=== PATIENT | male | born 1950 | race Caucasian/White ===

== ENCOUNTER → 2017-07-02 14:32 | Outpatient (CLI) | payer MEDICARE, SELFPAY ==
[2017-07-02 17:17] LABS: Absolute Lymphocyte Count 1.38 X10^3/ul (0.83-4.51); Basophil# 0.02 X10^3/uL; Basophil% 0.2 % (0-1); Eosinophil# 0.15 X10^3/uL; Eosinophils% 1.8 % (0-5); Hematocrit 48.3 % (40-54); Hemoglobin 16.1 g/dl (13.0-16.5); Lymphocyte # 1.38 X10^3/ul (4.0); Lymphocyte % 16.4 % (19-41); Mean Corp Hgb Conc 33.3 g/gl (32-36); Mean Corpuscular Hgb 31.4 pg (27.0-32.0); Mean Corpuscular Volume 94.3 fL (80-94); Mean Platelet Vol. 10.5 fl (6.2-12.0); Monocyte# 0.82 X10^3/uL; Monocyte% 9.7 % (0-10); Neutrophil # 6.04 X10^3/uL (2.7-7.7); Neutrophil % 71.8 % (47-70); Platelet Count 202 K/mm3 (150-450); RBC Distribution Width SD 47.7 fl (35.1-43.9); Red Blood Count 5.12 M/mm3 (4.6-6.2); White Blood Count 8.4 K/mm3 (4.4-11.0)
[2017-07-02 17:22] LABS: POSITIVE COUNT NO; POSITIVE DIFFERENTIAL NO; POSITIVE MORPHOLOGY NO
[2017-07-02 17:41] LABS: AST(SGOT) 20 U/L (15-37); Alanine Aminotransfer ALT/SGPT 36 U/L (16-61); Albumin, Serum 3.5 g/dL (3.2-5.0); Alkaline Phosphatase 79 U/L (45-117); Anion Gap 7 (5-15); BUN 12 mg/dL (7-18); BUN/Creat Ratio 12.5 RATIO (10-20); Calcium,Total 8.4 mg/dL (8.5-10.1); Chloride 107 mmol/L (98-107); Creatinine, Serum 0.96 mg/dL (0.70-1.30); EST Glomerular Filtration Rate 83 mL/min (>60); Est Glom Filt Rate - Afr Amer 100 mL/min (>60); Globulin 3.6 g/dL (2.2-4.2); Glucose 101 mg/dL (74-106); PSA,Total - Annual Screen 1.57 ng/mL (0.00-4.00); Protein, Total 7.1 g/dL (6.4-8.2); Sodium Level 140 mmol/L (136-145); Thyroid Stim Hormone (TSH) 2.12 uIU/mL (0.358-3.74)
[2017-07-04 11:04] LABS: Hep C Antibodies <0.1 s/co ratio (0.0-0.9)
== END ==
PROVIDERS: Family Provider Family Medicine Geriatric Medicine; PCP Family Medicine Geriatric Medicine; Visit Provider Family Medicine Geriatric Medicine
DX: I10 Essential (primary) hypertension (principal); Z13.89 Encounter for screening for other disorder; Z12.5 Encounter for screening for malignant neoplasm of prostate
CPT/HCPCS: 36415; 80053; 84153; 84443; 85025; 86803; G0103

== ENCOUNTER → 2017-08-21 18:39 | Outpatient (CLI) | payer MEDICARE, SELFPAY ==
--- NOTE | 2017-08-21 17:22 | TISS_PTH ---
PATIENT: TURNER YAN Sr. LOC: [facility] U#:[id number] AGE/SX: 74/M ROOM: RE08/21/[address]: Dr. Low Zheng MD : 1950 BED: DIS: SPEC #: [id number] RECD: 08/21/17 18:04 STATUS: BUBBA EDITH #: [id number] ETIENNE: 08/21/17 17:[address]: Low Zheng Chi DEPT: SURGICAL PATHOLOGY RECD BY: Brenda Ravi Tissues: Skin of face, NOS Procedures: Surgery Specimen Level IV HEADER OPERATION: Not noted PRE-OP DIAGNOSIS: L98.9, 709.9 TISSUE SUBMITTED: Left cheek MICROSCOPIC DIAGNOSIS Lesion of left cheek, shave biopsy: Verrucoid keratosis. Solar elastosis. Organisms consistent with tinea. AM:ailyn 08/23/17 MICROSCOPIC DESCRIPTION Slides are reviewed. GROSS DESCRIPTION Received in fixative is one container labeled with the patient's name and designated left cheek. The specimen consists of a light davis fragment of skin measuring 0.7 x 0.5 x 0.2 cm. The specimen is bisected and totally submitted in one cassette. / AM:ailyn 08/22/17 TC:5 CPT: 12364
== END ==
PROVIDERS: Family Provider Family Medicine Geriatric Medicine; PCP Family Medicine Geriatric Medicine; Visit Provider Family Medicine Geriatric Medicine
DX: L98.9 Disorder of the skin and subcutaneous tissue, unspecified (principal)
CPT/HCPCS: 88305

== ENCOUNTER → 2017-10-16 10:00 | Outpatient (CLI) | payer MEDICARE, SELFPAY ==
--- NOTE | 2017-10-16 10:33 | LES_PTH ---
PATIENT: TURNER YAN Sr. LOC: [facility] U#:[id number] AGE/SX: 74/M ROOM: RE10/16/[address]: Dr. Low Zheng MD : 1950 BED: DIS: SPEC #: [id number] RECD: 10/17/17 12:14 STATUS: BUBBA EDITH #: [id number] ETIENNE: 10/16/17 10:[address]: Low Zheng Chi DEPT: SURGICAL PATHOLOGY RECD BY: Mark Moore Tissues: A - Skin of head, NOS B - Skin of face, NOS C - Skin of head, NOS D - Skin of head, NOS E - Skin of face, NOS Procedures: Surgery Specimen Level IV HEADER OPERATION: Not noted PRE-OP DIAGNOSIS: L98.9 TISSUE SUBMITTED: A ? Right mosque, B ? Right cheek, C ? Left hairline mosque, D ? Left mid mosque, E ? Left cheek MICROSCOPIC DIAGNOSIS A. Right mosque lesion, shave biopsy: Seborrheic keratosis. Solar elastosis. B. Right cheek lesion, shave biopsy: Inflamed seborrheic keratosis with focal actinic change. Solar elastosis. C. Left hairline mosque lesion, shave biopsy: Seborrheic keratosis. D. Left mid mosque lesion, shave biopsy: Seborrheic keratosis. Solar elastosis. E. Left cheek lesion, shave biopsy: Seborrheic keratosis. Solar elastosis. SJ:ailyn 10/18/17 COMMENT Please make reference to previous specimen ([id number]) lesion of left cheek, shave biopsy with diagnosis of verrucoid keratosis, solar elastosis and organisms consistent with tinea. MICROSCOPIC DESCRIPTION Slides are reviewed. GROSS DESCRIPTION A - Received in fixative is one container labeled with the patient's name and designated right mosque. The specimen consists of a shave biopsy of a round piece of davis-white skin measuring 0.5 cm in diameter and 0.1 cm in thickness. The specimen is inked and submitted entirely in one cassette. It will be bisected at the time of embedding. B - Received in fixative is one container labeled with the patient's name and designated right cheek. The specimen consists of a shave biopsy of davis-white skin measuring 1 x 0.6 x 0.2 cm. There is a brown lesion on the surface measuring 0.7 x 0.5 cm. The specimen is inked and submitted entirely in one cassette. It will be sectioned at the time of embedding. C - Received in fixative is one container labeled with the patient's name and designated left hairline mosque. The specimen consists of a shave biopsy of davis-brown skin measuring 0.9 x 0.9 cm and up to 0.1 cm in thickness. The specimen is inked and submitted entirely in one cassette. D - Received in fixative is one container labeled with the patient's name and designated left mid mosque. The specimen consists of a shave biopsy of a round piece of davis-white skin measuring 0.5 cm in diameter and 0.2 cm in thickness. The specimen is inked and submitted entirely in one cassette. It will be bisected at the time of embedding. E - Received in fixative is one container labeled with the patient's name and designated left cheek. The specimen consists of a piece of davis-brown skin measuring 0.7 x 0.5 cm and up to 0.1 cm in thickness. The specimen is inked and submitted entirely in one cassette. It will be serially sectioned at the time of embedding. / SJ:rg 10/17/17 TC: 1 CPT: 70213 x5
== END ==
PROVIDERS: Family Provider Family Medicine Geriatric Medicine; PCP Family Medicine Geriatric Medicine; Visit Provider Family Medicine Geriatric Medicine
DX: L98.9 Disorder of the skin and subcutaneous tissue, unspecified (principal)
CPT/HCPCS: 88305

== ENCOUNTER → 2018-07-02 17:36 | Outpatient (CLI) | payer MEDICARE, SELFPAY ==
--- NOTE | 2018-07-02 17:52 | CT_ITS ---
STUDY: CT BRAIN WITHOUT CONTRAST REASON FOR EXAM: Male, 67 years old. Trauma RADIATION DOSAGE (If Supplied By Facility): CTDIvol = ( 44.99 ) mGy, DLP = ( 796.11 ) mGycm TECHNIQUE: Transaxial CT imaging of the brain was performed without administration of intravenous contrast material. Individualized dose optimization techniques were used for this CT. COMPARISON: March 12, 2014 FINDINGS: Normal soft tissue structures. Normal calvarium. 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 Mild atrophy and moderate periventricular white matter ischemic changes. Normal basal ganglia and thalami. Normal brainstem. Normal cerebellum. There is no intracranial hemorrhage. There are no findings of an acute ischemic infarction. There is diffuse mucosal thickening within left maxillary sinus extending into the nasal cavity. Neoplasm is not excluded. There is absence of the medial wall which may be due to prior surgery. This has increased in size since prior exam CT/Brain/Head without Contrast IMPRESSION: Atrophy and moderate periventricular white matter ischemic changes. No evidence for acute intracranial bleed. Soft tissue density in left maxillary sinus extending into the nasal cavity which has increased in size since prior exam.. Possibility of neoplasm not excluded. Clinical correlation recommended Electronically Signed: Villa Rodrigues MD at 21:00 EST , Service support ,
--- NOTE | 2018-07-02 17:53 | CT_ITS ---
STUDY: CT ABDOMEN AND PELVIS WITH CONTRAST REASON FOR EXAM: Male, 67 years old. Abdominal pain RADIATION DOSAGE (If Supplied By Facility): CTDIvol = ( 20.40 ) mGy, DLP = ( 1317.63 ) mGycm TECHNIQUE: Transaxial images were obtained from the dome of the diaphragm to the symphysis pubis without oral contrast. Isovue 300 100ml IV/Oral was administered. Sagittal and coronal images were reconstructed. Individualized dose optimization techniques were used for this CT. COMPARISON: None. FINDINGS: The visualized lung bases are unremarkable. The visualized portions of the heart are within normal limits. Liver is fatty infiltrated without mass or bile duct dilatation. Contracted thick-walled gallbladder without calcified stones likely physiologic. If concern for gallbladder disease ultrasound recommended. Normal spleen. Normal pancreas. Normal bilateral adrenal glands. Normal right kidney. Normal left kidney. Normal visualized stomach. Mild nonspecific ileus. No evidence for small bowel obstruction or pneumoperitoneum. No evidence for acute appendicitis. Minor atherosclerotic changes of the aorta without evidence for aneurysm Normal inferior vena cava. Normal retroperitoneum. Normal urinary bladder. Mild nonspecific prominence of the prostate. Normal abdominal wall. Lumbar spine demonstrates moderate spondylosis CT/Abdomen/Pelvis WITH Contrast IMPRESSION: Contracted thick-walled gallbladder without calcified stones likely physiologic however if concern for gallbladder disease ultrasound recommended. Mild nonspecific ileus. Electronically Signed: Villa Rodrigues MD at 21:19 EST , Service support ,
--- NOTE | 2018-07-02 18:00 | RAD_ITS ---
STUDY: X-RAY - ABDOMEN/PELVIS REASON FOR EXAM: Male, 67 years old. Fecal impaction TECHNIQUE: Flat and upright COMPARISON: None. FINDINGS: Normal visualized lung bases. There is mild predominantly colonic ileus present. There is no evidence for small bowel obstruction or pneumoperitoneum. There is no demonstrated free abdominal air. The visualized liver, spleen and kidneys are grossly normal in size and morphology. Normal soft tissue structures. Lumbar spine demonstrates spondylosis. RAD/Abd Inc Decub and/or Erect IMPRESSION: Mild predominantly colonic ileus. Electronically Signed: Villa Rodrigues MD at 19:03 EST , Service support ,
[2018-07-02 18:51] LABS: Absolute Neutrophil Count 5.4 X10^3/uL (2.0-7.7); Basophil# 0.02 X10^3/uL; Basophil% 0.3 % (0-1); Eosinophils% 2.6 % (0-5); Hematocrit 49.5 % (40-54); Hemoglobin 17.1 g/dl (13.0-16.5); Lymphocyte % 16.7 % (19-41); Mean Corp Hgb Conc 34.5 g/gl (32-36); Mean Corpuscular Hgb 31.8 pg (27.0-32.0); Mean Corpuscular Volume 92.2 fL (80-94); Mean Platelet Vol. 9.9 fl (6.2-12.0); Monocyte# 0.89 X10^3/uL; Monocyte% 11.4 % (0-10); Neutrophil # 5.35 X10^3/uL (2.7-7.7); Neutrophil % 68.7 % (47-70); Platelet Count 214 K/mm3 (150-450); RBC Distribution Width CV 13.8 % (11.6-14.6); RBC Distribution Width SD 45.9 fl (35.1-43.9); Red Blood Count 5.37 M/mm3 (4.6-6.2); White Blood Count 7.8 K/mm3 (4.4-11.0)
[2018-07-02 18:52] LABS: POSITIVE COUNT NO; POSITIVE DIFFERENTIAL NO; POSITIVE MORPHOLOGY NO
[2018-07-02 19:31] LABS: ALB/GLOB Ratio 1.1 RATIO (0.9-2.4); AST(SGOT) 25 U/L (15-37); Alanine Aminotransfer ALT/SGPT 43 U/L (16-61); Albumin, Serum 3.8 g/dL (3.2-5.0); Alkaline Phosphatase 80 U/L (45-117); Anion Gap 9 (5-15); BUN 13 mg/dL (7-18); BUN/Creat Ratio 12.6 RATIO (10-20); Calcium,Total 8.8 mg/dL (8.5-10.1); Chloride 106 mmol/L (98-107); Creatinine, Serum 1.03 mg/dL (0.70-1.30); EST Glomerular Filtration Rate 76 mL/min (>60); Est Glom Filt Rate - Afr Amer 92 mL/min (>60); Globulin 3.4 g/dL (2.2-4.2); Glucose 109 mg/dL (74-106); Potassium 4.2 mmol/L (3.5-5.1); Protein, Total 7.2 g/dL (6.4-8.2); Sodium Level 139 mmol/L (136-145); Thyroid Stim Hormone (TSH) 1.83 uIU/mL (0.358-3.74)
== END ==
PROVIDERS: Family Provider Family Medicine Geriatric Medicine; PCP Family Medicine Geriatric Medicine; Referring Provider Family Medicine Geriatric Medicine; Visit Provider Family Medicine Geriatric Medicine
DX: N39.0 Urinary tract infection, site not specified (principal); R53.83 Other fatigue; R10.9 Unspecified abdominal pain; K56.41 Fecal impaction; S09.90XA Unspecified injury of head, initial encounter
CPT/HCPCS: 70450; 74019; 74177; 80053; 84443; 85025; 87086; 87088; Q9967

== ENCOUNTER → 2018-07-03 13:27 | Outpatient (CLI) | payer MEDICARE, SELFPAY ==
[2018-07-03 15:23] LABS: PSA,Total - Annual Screen 1.62 ng/mL (0.00-4.00)
== END ==
PROVIDERS: Family Provider Family Medicine Geriatric Medicine; PCP Family Medicine Geriatric Medicine; Visit Provider Family Medicine Geriatric Medicine
DX: E55.9 Vitamin D deficiency, unspecified (principal); I10 Essential (primary) hypertension; Z12.5 Encounter for screening for malignant neoplasm of prostate
CPT/HCPCS: 36415; 82306; 84153; G0103

== ENCOUNTER → 2018-07-06 11:00 | Outpatient (CLI) | payer MEDICARE, SELFPAY ==
--- NOTE | 2018-07-06 10:51 | US_ITS ---
STUDY: ABDOMINAL ULTRASOUND - RIGHT UPPER QUADRANT REASON FOR VISIT: Male, 67 years old. Abdominal pain TECHNIQUE: Ultrasound evaluation of the right upper quadrant was performed with real-time and static otero-scale imaging. TECHNICAL QUALITY: Adequate. COMPARISON: None. FINDINGS: Liver: The liver measures 18.6 cm. Mild hepatomegaly with fatty infiltration. The bile ducts are within normal limits. There is hepatic color flow. The direction of portal flow is hepatopetal. There is no demonstrated mass lesion. Gallbladder: Normal distended gallbladder. The gallbladder wall measures 3.2 mm. There is a negative sonographic Roman's sign. There is no pericholecystic fluid. There are no gallstones. There is some sludge in the gallbladder lumen Common Bile Duct (C.B.D.): The common bile duct measures 4.0 mm. Pancreas: Normal size of the head, body and tail of the pancreas. There is normal echogenicity of the pancreas. There is no demonstrated pancreatic mass or cyst. Right Kidney: Normal size of the right kidney. The right kidney measures 10.5 x 4.7 x 5.0 cm. Normal renal cortex. The right cortex measures 1.9 cm. There is no demonstrated renal mass or cyst. There is no right hydronephrosis. US/Abdomen Limited IMPRESSION: Some sludge within the gallbladder lumen. No gallstones. No positive Roman's sign Electronically Signed: Willie Larkin MD at 3:22 EDT Tel , Service support ,
== END ==
PROVIDERS: Family Provider Family Medicine Geriatric Medicine; PCP Family Medicine Geriatric Medicine; Referring Provider Family Medicine Geriatric Medicine; Visit Provider Family Medicine Geriatric Medicine
DX: R10.9 Unspecified abdominal pain (principal)
CPT/HCPCS: 76705

== ENCOUNTER 2018-07-26 10:38 | Day surgery (SDC) | payer MEDICARE, SELFPAY ==
--- NOTE | 2018-07-26 | POL_PTH ---
PATIENT: TURNER YAN Sr. [place] [facility] [id number] AGE/SX: 67/M ROOM: RE07/26/[address]: Dr. Kervin Santana MD : 1950 BED: DIS: 07/26/2018 SPEC #: [id number] RECD: 07/26/18 13:05 STATUS: BUBBA REThelma #: [id number] ETIENNE: 07/26/18 00:[address]: Kervin Santana DEPT: SURGICAL PATHOLOGY RECD BY: Michela Fitch ENTERED: 07/26/18 14:08 SP TYPE: Polyp OTHR DR: Dr. Low Zheng MD Tissues: A - POLYP B - Maxilla, NOS Procedures: Frozen Section (charge) Surgery Specimen Level IV HEADER OPERATION: Endoscopic nasal sinus with maxillary antrostomy PRE-OP DIAGNOSIS: Benign neoplasm of maxillary sinus, left nose bleeding TISSUE SUBMITTED: A - Mass of left maxillary sinus for FS at 1300, B - Contents of left maxillary sinus sent for permanent FROZEN SECTION DIAGNOSIS A. Left maxillary sinus mass, biopsy: Fragments of benign sinonasal polyp with focal invagination. AM:ailyn 07/26/18 MICROSCOPIC DIAGNOSIS A. 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 B. Contents of left maxillary sinus: Fragments of inverted papilloma (Schneiderian papilloma). Fragments of respiratory mucosa with moderate acute and chronic inflammation. SJ:ailyn 07/29/18 COMMENT Case has been reviewed in consultation with Dr. Jimenez who concurs with the above diagnosis. IDC:BLANCHE MICROSCOPIC DESCRIPTION Slides are reviewed. GROSS DESCRIPTION A - Received fresh for frozen section consultation labeled with the patient's name is a specimen designated mass of left maxillary sinus. The specimen consists of multiple irregular fragments of pink-davis soft tissue that in aggregate measure 3 x 2 x 0.7 cm. The specimen is submitted in its entirety for froze section consultation in one block. / AM:ailyn 07/26/18 B - Received in fixative is one container labeled with the patient's name and designated contents left maxillary sinus. The specimen consists of multiple irregular fragments of davis-pink soft tissue that in aggregate measure 7.5 x 3 x 0.3 cm. The entire specimen is submitted in three cassettes. / SJ:ailyn 07/26/18 TC:1 CPT: 39452 x2, 76215
--- NOTE | 2018-07-26 11:03 | EKG12_ITS ---
Test Reason : PREOP Blood Pressure : / mmHG Vent. Rate : 053 BPM Atrial Rate : 053 BPM P-R Int : 164 ms QRS Dur : 086 ms QT Int : 438 ms P-R-T Axes : 032 006 121 degrees QTc Int : 410 ms Sinus bradycardia Inferior infarct (cited on or before 11-SEP-2016) ST & T wave abnormality, consider lateral ischemia Abnormal ECG When compared with ECG of 11-SEP-2016 15:15, T wave inversion now evident in Anterior leads Confirmed by DAVE GLASS, DEZ ([id number]), scientific editor GINGER YAN ([id number]) on 08/05/2018 1:35:44 PM Referred By: Kervin Santana Confirmed By:DEZ ACOSTA MD
[2018-07-26 11:28] VITALS: BP 147/90; PULSE 58; RESP 16; TEMP 36.7; O2SAT 95; BMI 41.7
[2018-07-26 11:35] LABS: Hematocrit 45.3 % (40-54); Hemoglobin 15.8 g/dl (13.0-16.5); Mean Corp Hgb Conc 34.9 g/gl (32-36); Mean Corpuscular Hgb 31.8 pg (27.0-32.0); Mean Corpuscular Volume 91.1 fL (80-94); Platelet Count 181 K/mm3 (150-450); RBC Distribution Width CV 13.8 % (11.6-14.6); RBC Distribution Width SD 45.3 fl (35.1-43.9); Red Blood Count 4.97 M/mm3 (4.6-6.2); White Blood Count 9.3 K/mm3 (4.4-11.0)
[2018-07-26 11:36] LABS: Scan Indicated on CBC? Y/N NO
[2018-07-26 11:48] LABS: Anion Gap 7 (5-15); BUN 17 mg/dL (7-18); BUN/Creat Ratio 15.5 RATIO (10-20); Calcium,Total 8.6 mg/dL (8.5-10.1); Chloride 105 mmol/L (98-107); EST Glomerular Filtration Rate 71 mL/min (>60); Est Glom Filt Rate - Afr Amer 85 mL/min (>60); Glucose 106 mg/dL (74-106); Potassium 3.9 mmol/L (3.5-5.1); Sodium Level 140 mmol/L (136-145)
[2018-07-26] MEDS: Lidocaine 4% 50 ML Bottle (13:00)
[2018-07-26] MEDS: Oxymetazoline 0.05% 1 SPRAY SPRAY.BTL 15 SPRAY (13:00)
--- NOTE | 2018-07-26 13:19 | PCM.OPRPT ---
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 He reports a distant history of inverting papilloma which was removed with a lateral rhinotomy on that side. Examination showed a large polypoid mass filling the maxillary sinus and the above procedure was offered for identification with suspected recurrence of papilloma. The risks, alternatives, potential complications, and benefits were discussed at length and any questions answered to the patient and/or caregiver's satisfaction. Witnessed informed consent was obtained in the office, and the patient and/or caregiver was agreeable to proceed. Procedure went as follows: The patient was identified in the preoperative holding and brought to the operating room, was placed under general anesthesia and intubated. Pledgets soaked in a 50-50 mixture of oxymetazoline and 4% topical lidocaine were placed to decongest the nasal mucosa. These were then removed and beginning on the left side using a 0? endoscope the nasal cavity examined. The nasal cavity is filled with a large pink friable mass obstructing the left nasal passage and extending and filling the maxillary sinus cavity and ethmoid bulla. This was then injected with 1% lidocaine with 100,000 epinephrine for hemostasis. After lying for vasoconstriction, a Elmer forceps was introduced and a large area of the mass was then grasped and sent for frozen section evaluation. Using the microdebrider, the soft tissue mass was then widely debrided following the bony wall of the maxillary sinus and ethmoid bulla. Abundant entrapped purulent secretions were encountered and this was suctioned until clear. Frozen section evaluation showed inflammatory polyp but could not confirm inverting papilloma. Given this no destructive resection was taken although recurrence of the papilloma was highly suspect given its endoscopic appearance and his history. Pledgets soaked in oxymetazoline were then placed for hemostasis and attention turned to the contralateral side. Similar procedure and findings were then carried out. The patient returned to anesthesia, revived and extubated having tolerated the procedure well. Type of Anesthesia:: General Anesthesiologist: Kervin Luo Special Medications: none Specimen's removed: left maxillary sinus mass Drains: none Estimated Blood Loss (mL): 25 mL Fluids Replaced: 1000 mL Grafts/Implants Used: none - Complications none - Admit VTE Documentation VTE Present on Admission: No VTE Mechan Device Prophylaxis: SCD's VTE Pharm Prophylaxis ordered?: No
--- NOTE | 2018-07-26 13:25 | DCINST_ITS ---
- Discharge Diagnoses Current Active Problems: Current Active and Chronic Problems (Last Updated 09/17/17 @ 11:14 by Yris Wood) Benign neoplasm of middle ear, nasal cavity and accessory sinuses (Chronic) You will use the following diet at home:: No restrictions Discharge Activity: Return to Normal Activity Call your doctor if your incision/area has: Sudden Increased Bleeding Call your doctor if you observe: Fever of 101 or Higher, Uncontrolled pain Allergies/Adverse Reactions: Allergies Gadolinium-MRI Contrast Medium Adverse Reaction (Verified 07/19/18 10:28) Vomiting ibuprofen [From Motrin] Adverse Reaction (Verified 07/19/18 10:28) Nausea Medications to take at Discharge Atenolol [Tenormin (Beta Heriberto)] 50 mg PO DAILY 08/23/14 lisinopril 10 mg tablet 10 mg PO QDAY 09/17/17 Orders to be completed after discharge: CBC-Complete Blood Cnt No Diff Time Frame: 07/26/18, Location: Laboratory Primary Care Physician: Low Zheng Chi, MD [Primary Care Provider] - Test Results: Test results from this visit will be discussed in further detail at your follow- up appointment, if applicable. Please Follow Up With: Kervin Santana MD When: 2 weeks
[2018-07-26 13:29] VITALS: BP 138/87; BP 147/90; PULSE 72; RESP 18; TEMP 36.1; O2SAT 96
[2018-07-26 13:45] VITALS: BP 138/105; BP 147/90; PULSE 69; RESP 18; O2SAT 98
[2018-07-26 14:10] VITALS: BP 145/89; BP 147/90; PULSE 62; RESP 18; TEMP 36.1; O2SAT 93
[2018-07-26 14:40] VITALS: BP 142/84; BP 147/90; PULSE 68; RESP 20; TEMP 36.3; O2SAT 92
== END 2018-07-26 15:40 | disposition home or self-care (01) ==
LOC: SDC 10:41 → AC 10:46
PROVIDERS: Family Provider Family Medicine Geriatric Medicine; PCP Family Medicine Geriatric Medicine; Referring Provider Otolaryngology; Visit Provider Otolaryngology
PROC: (CPT 31267; principal; 2018-07-26 12:00)
DX: D14.0 Benign neoplasm of middle ear, nasal cavity and accessory sinuses (principal); R04.0 Epistaxis; Z87.891 Personal history of nicotine dependence; K76.0 Fatty (change of) liver, not elsewhere classified; Z95.5 Presence of coronary angioplasty implant and graft; I10 Essential (primary) hypertension
CPT/HCPCS: 00160; 31267; 80048; 85027; 88305; 88331; 93005; J7120; J2405

== ENCOUNTER 2018-07-28 18:51 | Emergency (ER) | payer MEDICARE, SELFPAY ==
[2018-07-28 18:52] VITALS: BP 134/113; PULSE 64; PULSE 71; RESP 17; RESP 18; TEMP 36.8; O2SAT 97; BMI 44.4
--- NOTE | 2018-07-28 19:12 | CT_ITS ---
STUDY: CT ABDOMEN AND PELVIS WITHOUT CONTRAST REASON FOR EXAM: Male, 67 years old. Abdominal pain. RADIATION DOSAGE (If Supplied By Facility): CTDIvol = ( 23.26 ) mGy, DLP = ( 1226.13 ) mGycm TECHNIQUE: Transaxial images were obtained from the dome of the diaphragm to the symphysis pubis without oral contrast, and without intravenous contrast. Sagittal and coronal images were reconstructed. Individualized dose optimization techniques were used for this CT. COMPARISON: July 02, 2018 FINDINGS: The visualized lung bases are unremarkable. The visualized portions of the heart are within normal limits. Please note the lack of intravenous contrast limits evaluation of solid visceral organs. Normal liver. Normal gallbladder and extrahepatic biliary system. Normal spleen. Normal pancreas. Normal bilateral adrenal glands. There is new bilateral mild hydroureteronephrosis associated with a distended and fluid-filled urinary bladder. There is new mild stranding anterior to the urinary bladder. Normal visualized stomach. Normal small intestine. Normal colon. The appendix is visualized and appears normal. There is diffuse atherosclerotic calcification of the abdominal aorta, without a demonstrated aneurysm. Normal inferior vena cava. Normal retroperitoneum. Normal abdominal wall. There are diffuse degenerative changes of the visualized lumbar spine. CT/Abdomen/Pelvis without Cont IMPRESSION: New bilateral hydroureteronephrosis associated with a distended fluid-filled urinary bladder. Atherosclerosis. Electronically Signed: Georgina Camilo MD at 21:24 EDT Tel , Service support ,
--- NOTE | 2018-07-28 19:12 | EKG12_ITS ---
Test Reason : ABD PAIN Blood Pressure : / mmHG Vent. Rate : 049 BPM Atrial Rate : 049 BPM P-R Int : 146 ms QRS Dur : 080 ms QT Int : 450 ms P-R-T Axes : 045 025 120 degrees QTc Int : 406 ms Sinus bradycardia Cannot rule out Anterior infarct (cited on or before 11-SEP-2016), age undetermined ST & T wave abnormality, consider lateral ischemia Abnormal ECG Confirmed by DAVE GLASS, DEZ ([id number]), online editor GINGER YAN ([id number]) on 07/30/2018 1:26:52 PM Referred By: TANIKA Confirmed By:DEZ ACOSTA MD
--- NOTE | 2018-07-28 19:16 | ED.VISSUMM ---
- ER Visit Summary Date of Service: 07/28/18 Chief Complaint: All over pain History of Present Illness: The patient is a 67 M who had surgery for nasal polyp on the . He states he felt well that evening. Yesterday he developed body aches with multiple areas of muscle spasm. He describes urinary. He states he passed a little bit of hard stool yesterday. He is not passing much gas. His abdomen feels distended and painful. Past history for coronary disease, hypertension, high cholesterol, reflux disease, sleep apnea, tachycardia. He has had 3 prior inguinal hernia repairs. He denies any other abdominal surgeries. Physical Examination: Blood pressure is 134/113, otherwise vitals normal. Patient sitting upright in bed. He appears uncomfortable but in no distress. Head neck examination normal. Heart is regular rate and rhythm. Lung sounds are clear. Abdomen is soft and distended. No focal area of tenderness. Hypoactive bowel sounds are present. Lower extremity examination was 3+ edema. Test Results: CBC was a white count 11.5 with 73% neutrophils. Chemistry studies normal. LFTs and lipase normal. EKG is sinus bradycardia at 49 bpm. No sign of acute ischemia. CT abdomen pelvis shows bilateral hydroureteronephrosis with distended bladder. Emergency Department Course and Treatment: Patient was given Dilaudid, Zofran, and IV fluids. Bladder scan had been ordered, but patient went to CT prior to this being performed. When distended bladder was noted on CT Black catheter was placed with a proximal 1200 cc of urine returned. At this time patient feels significantly improved. He will be given a leg bag for home and will follow up with urology this week. Treatment Plan: [] Disposition: Discharge Impression: Urinary retention This note was generated with [employer] (ML4D) dictation software. It may contain incorrect words, spelling, and punctuation that were not noted in review of the chart prior to signing ED Disposition - Plan for ED Patient: Referrals: Low Zheng Chi, MD [Primary Care Provider] -
[2018-07-28] MEDS: 0.9% Normal Saline 1,000 ML 150 ML IV (19:54)
[2018-07-28] MEDS: Ondansetron 4 MG/2 ML Vial IV (19:54)
[2018-07-28] MEDS: HYDROmorphone 1 MG/ML Syringe 0.5 MG IV (19:54)
[2018-07-28 19:55] VITALS: BP 150/89; PULSE 67; RESP 16
[2018-07-28 20:09] LABS: Absolute Lymphocyte Count 1.57 X10^3/ul (0.83-4.51); Absolute Neutrophil Count 8.5 X10^3/uL (2.0-7.7); Basophil# 0.02 X10^3/uL; Basophil% 0.2 % (0-1); Eosinophils% 2.6 % (0-5); Hematocrit 47.4 % (40-54); Hemoglobin 16.3 g/dl (13.0-16.5); Lymphocyte # 1.57 X10^3/ul (4.0); Lymphocyte % 13.7 % (19-41); Mean Corp Hgb Conc 34.4 g/gl (32-36); Mean Corpuscular Hgb 31.7 pg (27.0-32.0); Mean Corpuscular Volume 92.2 fL (80-94); Mean Platelet Vol. 10.3 fl (6.2-12.0); Monocyte% 9.6 % (0-10); Neutrophil # 8.49 X10^3/uL (2.7-7.7); Neutrophil % 73.7 % (47-70); Platelet Count 196 K/mm3 (150-450); RBC Distribution Width CV 14.3 % (11.6-14.6); RBC Distribution Width SD 48.1 fl (35.1-43.9); Red Blood Count 5.14 M/mm3 (4.6-6.2); White Blood Count 11.5 K/mm3 (4.4-11.0)
[2018-07-28 20:10] LABS: POSITIVE COUNT NO; POSITIVE DIFFERENTIAL NO; POSITIVE MORPHOLOGY NO
[2018-07-28 20:23] LABS: AST(SGOT) 28 U/L (15-37); Alanine Aminotransfer ALT/SGPT 45 U/L (16-61); Albumin, Serum 3.8 g/dL (3.2-5.0); Alkaline Phosphatase 78 U/L (45-117); Anion Gap 5 (5-15); BUN 18 mg/dL (7-18); BUN/Creat Ratio 16.7 RATIO (10-20); Bilirubin, Direct 0.19 mg/dL (0.00-0.30); Calcium,Total 8.5 mg/dL (8.5-10.1); Chloride 104 mmol/L (98-107); Creatinine, Serum 1.08 mg/dL (0.70-1.30); EST Glomerular Filtration Rate 72 mL/min (>60); Est Glom Filt Rate - Afr Amer 87 mL/min (>60); Estimated Creatinine Clearance 59.07 ml/min; Globulin 3.6 g/dL (2.2-4.2); Glucose 98 mg/dL (74-106); Lipase 80 U/L (73-393); Potassium 3.7 mmol/L (3.5-5.1); Protein, Total 7.4 g/dL (6.4-8.2); Sodium Level 138 mmol/L (136-145)
[2018-07-28 20:36] LABS: Bacteria 0 SEEN /hpf (None Seen); Mucous, Urine 0 SEEN /hpf (<or=2+); Squamous Epithelial Cells - UA 0 SEEN /hpf (0-5); White Blood Cells 0 SEEN /hpf (0-5)
[2018-07-28 20:37] VITALS: BP 160/106; PULSE 60; RESP 20; O2SAT 93
[2018-07-28 20:46] LABS: Color, Urine Yellow (Yellow); Glucose, Dipstick 50 mg/dl (Normal); Ketone-Dipstick Negative (Negative); Leukocyte Esterase-Dipstick Negative /ul (Negative); Nitrite-Dipstick Negative (Negative); Occult Blood-Urine 50 /ul (Negative); Protein-Dipstick 15 mg/dl (Negative); Urine Bilirubin Dipstick Negative (Negative); Urine Clarity Clear (Clear); Urine Urobilinogen Normal (Normal)
[2018-07-28 20:56] LABS: Hyaline Cast 0-5 SEEN /lpf (0-5)
[2018-07-28 20:57] LABS: Transitional Epithelial - Ur 0-5 SEEN /hpf (0-5)
[2018-07-28 20:58] LABS: Red Blood Cells-Urine 5-10 SEEN /hpf (0-5)
--- NOTE | 2018-07-28 21:47 | ED.DEP ---
ED Disposition - Plan for ED Patient: Disposition: Home or Assisted Living Instructions: ED Retention Urinary Male Referrals: Richard Bourgeois MD [STAFF PHYSICIAN] - 3-5 Days
[2018-07-28 22:06] VITALS: BP 150/109; PULSE 64; RESP 16; O2SAT 92
== END 2018-07-28 22:13 | disposition home or self-care (01) ==
PROVIDERS: Emergency Provider Emergency Medicine; Family Provider Family Medicine Geriatric Medicine; PCP Family Medicine Geriatric Medicine
DX: R33.9 Retention of urine, unspecified (principal); N13.30 Unspecified hydronephrosis; N32.89 Other specified disorders of bladder; I25.10 Atherosclerotic heart disease of native coronary artery without angina pectoris; I10 Essential (primary) hypertension; E78.00 Pure hypercholesterolemia, unspecified; K21.9 Gastro-esophageal reflux disease without esophagitis; G47.33 Obstructive sleep apnea (adult) (pediatric); Z87.891 Personal history of nicotine dependence; Z95.5 Presence of coronary angioplasty implant and graft
CPT/HCPCS: 51702; 74176; 80048; 80076; 81001; 83690; 85025; 93005; 96361; 96374; 96375; 99285; J7030; A4216; J2405

== ENCOUNTER 2018-08-04 19:03 | Emergency (ER) | payer MEDICARE, SELFPAY ==
[2018-08-04 19:04] VITALS: BP 145/96; PULSE 65; RESP 18; TEMP 37.2; O2SAT 93; BMI 40.3
--- NOTE | 2018-08-04 21:25 | ED.RN ---
1400 INITIAL RETURN OF URINE OUT OF LCIONA CATHETER
--- NOTE | 2018-08-04 21:42 | ED.RN ---
THE LAB SPILLED PATIENT'S URINE THAT IS DOWN THERE, BUT DR. RODRIGUEZ SAID WE DON'T NEED TO RUN IT NOW.
[2018-08-04 21:43] VITALS: BP 157/75; PULSE 78; O2SAT 93
[2018-08-04 21:44] VITALS: BP 157/75; PULSE 78; O2SAT 93
--- NOTE | 2018-08-04 21:55 | ED.RN ---
PATIENT IS GOING HOME WITH THE LARGE LICONA BAG HE BELIEVES THIS WILL BE EASIER FOR HIM TO EMPTY. THIS NURSE SENT HOME A LEG BAG FOR HIM TO USE IF NEEDED.
--- NOTE | 2018-08-04 22:02 | ED.DEP ---
ED Disposition - Plan for ED Patient: Instructions: ED Retention Urinary Male Referrals: Low Zheng Chi, MD [Primary Care Provider] - Richard Bourgeois MD [STAFF PHYSICIAN] -
--- NOTE | 2018-08-04 22:03 | ED.VISSUMM ---
- ER Visit Summary Date of Service: 08/04/18 Chief Complaint: Urinary retention History of Present Illness: The patient is a 67 M presenting with urinary retention. Patient was seen in the ED last week and had a catheter placed at that time. It was removed on Sunday. He says since Sunday he has had progressively worsening difficulty with urination. He states he had some dribbling urine today. He had constipation yesterday which was improved with a dose of MiraLAX. He was able to have a bowel movement following MiraLAX. He denies fever. Denies other complaints. Physical Examination: Vitals are stable. Patient is afebrile. Alert no acute distress. HEENT exam is unremarkable. Neck is supple. Lungs are clear and equal bilaterally. Heart is regular rate and rhythm. Abdomen is soft suprapubic tenderness with distention Extremities are unremarkable. Skin is warm and dry. No focal neurologic deficit. Remainder of exam is unremarkable. Emergency Department Course and Treatment: Black catheter placed with 1500 cc urine out. Patient feels much improved. He is given a leg bag. Advised to follow up with urology. Advised return to ED if worsening complaints. Disposition: Discharge home Impression: Urinary retention This note was generated with [employer] dictation software. It may contain incorrect words, spelling, and punctuation that were not noted in review of the chart prior to signing ED Disposition - Plan for ED Patient: Instructions: ED Retention Urinary Male Referrals: Richard Bourgeois MD [STAFF PHYSICIAN] - Low Zheng Chi, MD [Primary Care Provider] -
== END 2018-08-04 22:28 | disposition home or self-care (01) ==
PROVIDERS: Emergency Provider Emergency Medicine; Family Provider Family Medicine Geriatric Medicine; PCP Family Medicine Geriatric Medicine
DX: R33.9 Retention of urine, unspecified (principal); I25.10 Atherosclerotic heart disease of native coronary artery without angina pectoris
CPT/HCPCS: 99283; A4216

== ENCOUNTER 2018-08-23 06:28 | Emergency (ER) | payer MEDICARE, SELFPAY ==
[2018-08-23 06:28] VITALS: BP 130/80; PULSE 70; RESP 18; TEMP 36.7; O2SAT 96; BMI 42.3
--- NOTE | 2018-08-23 06:50 | ED.VISSUMM ---
- ER Visit Summary Date of Service: 08/23/18 Chief Complaint: Cannot urinate History of Present Illness: The patient is a 67 M who presents with difficulty with urination since about 11 AM yesterday when his Black catheter was removed. It was originally placed about 4 weeks ago for urinary retention. He followed up with Dr. Bourgeois. The catheter was removed and then had to be replaced again in the ER for subsequent retention. As above, the catheter was removed yesterday. The patient was having difficulty urinating. He was advised to call the office if he still had issues after 6 hours. He did, but the office had closed. Symptoms persisted over the night, so he came for reevaluation in the ED. Patient denies any other new or different symptoms. He is not sure why he has urinary retention. He originally thought it was from a side effect of anesthesia. He denies any prostate issues. He denies blood thinners or bleeding. Denies any other pain or problems. Physical Examination: Afebrile and vital signs are unremarkable. Patient appears uncomfortable but nontoxic or in distress. Abdomen is tender in the suprapubic region. No guarding or rebound. Otherwise exam unremarkable. Test Results: Urinalysis and urine culture are pending. Emergency Department Course and Treatment: Patient presents with recurrent urinary retention. Black catheter was placed shortly after arrival by nursing. The patient produced 800 mL's of urine almost immediately. This was dark yellow but clear. Nonbloody. No clots. No sediment. Patient had resolution of his pain and symptoms. Urinalysis and culture are pending. The oncoming doctor will check the results and treat accordingly. I did recommend Flomax, but the patient declined. He was concerned about retrograde ejaculation. Patient will contact Dr. Bourgeois's office today for follow-up. Treatment Plan: As above Disposition: Discharge pending urinalysis results Impression: 1. Acute urinary retention This note was generated with 4Homeation software. It may contain incorrect words, spelling, and punctuation that were not noted in review of the chart prior to signing ED Disposition - Plan for ED Patient: Referrals: Low Zheng Chi, MD [Primary Care Provider] -
[2018-08-23 06:52] LABS: Mucous, Urine 0 SEEN /hpf (<or=2+); Red Blood Cells-Urine 0 SEEN /hpf (0-5); Squamous Epithelial Cells - UA 0 SEEN /hpf (0-5); White Blood Cells 0 SEEN /hpf (0-5)
--- NOTE | 2018-08-23 06:56 | ED.DEP ---
ED Disposition - Plan for ED Patient: Instructions: ED Catheter Care Black Referrals: Richard Bourgeois MD [STAFF PHYSICIAN] -
[2018-08-23 06:58] LABS: Color, Urine Yellow (Yellow); Glucose, Dipstick Normal (Normal); Ketone-Dipstick Negative (Negative); Leukocyte Esterase-Dipstick Negative /ul (Negative); Nitrite-Dipstick Negative (Negative); Occult Blood-Urine Negative /ul (Negative); Protein-Dipstick 100 mg/dl (Negative); Urine Bilirubin Dipstick Negative (Negative); Urine Clarity Sl. Cloudy (Clear); Urine Urobilinogen Normal (Normal)
[2018-08-23 07:05] LABS: Bacteria 1+ /hpf (None Seen)
--- NOTE | 2018-08-23 07:38 | ED.DEP ---
ED Disposition - Plan for ED Patient: Instructions: ED Catheter Care Black Prescriptions: Tamsulosin HCl [Flomax] 0.4 mg PO DAILY #30 cap Referrals: Richard Bourgeois MD [STAFF PHYSICIAN] -
[2018-08-23 07:48] VITALS: BP 140/78; PULSE 86; RESP 18; O2SAT 96
== END 2018-08-23 07:49 | disposition home or self-care (01) ==
PROVIDERS: Emergency Provider Emergency Medicine; Family Provider Family Medicine Geriatric Medicine; PCP Family Medicine Geriatric Medicine
DX: R33.9 Retention of urine, unspecified (principal); R10.9 Unspecified abdominal pain; I25.10 Atherosclerotic heart disease of native coronary artery without angina pectoris; I10 Essential (primary) hypertension; E78.00 Pure hypercholesterolemia, unspecified; N40.0 Benign prostatic hyperplasia without lower urinary tract symptoms; Z87.891 Personal history of nicotine dependence
CPT/HCPCS: 51702; 81001; 87086; 99285; A4216

== ENCOUNTER 2018-09-17 20:56 | Emergency (ER) | payer MEDICARE, SELFPAY ==
[2018-09-17 20:56] VITALS: BP 176/110; PULSE 58; RESP 16; TEMP 36.6; O2SAT 98; BMI 40.6
--- NOTE | 2018-09-17 21:17 | ED.VISSUMM ---
- ER Visit Summary Date of Service: 09/17/18 Chief Complaint: Unable to pee history urinary retention History of Present Illness: The patient is a 67 M no history of hypertension and enlarged prostate. Patient had recent urinary retention. Saw Dr. Bourgeois who discussed with him possible surgery. They removed his Black catheter yesterday and is unable to urinate today. Denies any gross hematuria. No fever. He has had this happen several times in the past. Physical Examination: Older male no acute distress. Vital signs are stable. He is afebrile. He does not look septic or toxic. HEENT exam unremarkable. Lungs clear to auscultation. Heart regular rhythm no murmur rate about 60. Abdomen soft. Tender suprapubically with what appears to be distended bladder. External exam unremarkable. Circumcised. Moving all 4 extremities. No edema. Neurologically is awake and alert. Test Results: Urinalysis shows a urinary tract infection with positive nitrites, 25-50 white cells 1+ bacteria. A culture was sent. After the nurse placed a Black catheter he had over 800 cc of urine output. Consistent with urinary retention. Emergency Department Course and Treatment: Black catheter placed by nursing staff. Patient doing well after Black placed. Treatment Plan: Discharge with Black catheter. Follow-up with his urologist. Treated for UTI with Keflex 500 4 times daily for 10 days. Disposition: Discharge Impression: Acute and recurrent urinary retention Acute UTI Black catheter placed by RN History of enlarged prostate This note was generated with [employer] dictation software. It may contain incorrect words, spelling, and punctuation that were not noted in review of the chart prior to signing ED Disposition - Plan for ED Patient: Disposition: Home or Assisted Living Instructions: ED Retention Urinary Male Referrals: Richard Bourgeois MD [STAFF PHYSICIAN] - As soon as possible
--- NOTE | 2018-09-17 21:20 | ED.DCSUM_ITS ---
- ER Visit Summary Date of Service: 09/17/18 Chief Complaint: Unable to pee history urinary retention History of Present Illness: The patient is a 67 M no history of hypertension and enlarged prostate. Patient had recent urinary retention. Saw Dr. Bourgeois who discussed with him possible surgery. They removed his Black catheter yesterday and is unable to urinate today. Denies any gross hematuria. No fever. He has had this happen several times in the past. Physical Examination: Older male no acute distress. Vital signs are stable. He is afebrile. He does not look septic or toxic. HEENT exam unremarkable. Lungs clear to auscultation. Heart regular rhythm no murmur rate about 60. Abdomen soft. Tender suprapubically with what appears to be distended bladder. External exam unremarkable. Circumcised. Moving all 4 extremities. No edema. Neurologically is awake and alert. Test Results: Urinalysis shows a urinary tract infection with positive nitrites, 25-50 white cells 1+ bacteria. A culture was sent. After the nurse placed a Black catheter he had over 800 cc of urine output. Consistent with urinary retention. Emergency Department Course and Treatment: Black catheter placed by nursing [facility]. Patient doing well after Black placed. Treatment Plan: Discharge with Black catheter. Follow-up with his urologist. Treated for UTI with Keflex 500 4 times daily for 10 days. Disposition: Discharge Impression: Acute and recurrent urinary retention Acute UTI Black catheter placed by RN History of enlarged prostate This note was generated with Abigail Stewart dictation software. It may contain incorrect words, spelling, and punctuation that were not noted in review of the chart prior to signing ED Disposition - Plan for ED Patient: Disposition: Home or Assisted Living Instructions: ED Retention Urinary Male Referrals: Richard Bourgeois MD [STAFF PHYSICIAN] - As soon as possible
--- NOTE | 2018-09-17 21:20 | ED.DEP ---
ED Disposition - Plan for ED Patient: Disposition: Home or Assisted Living Instructions: ED Retention Urinary Male, ED UTI Cystitis Male Prescriptions: Cephalexin [Keflex] 500 mg PO Q6 #40 cap Referrals: Richard Bourgeois MD [STAFF PHYSICIAN] - As soon as possible Additional Instructions: Follow-up with your urologist. Finished antibiotics. Return if catheter stops draining.
[2018-09-17 21:32] LABS: Mucous, Urine 0 SEEN /hpf (<or=2+); Squamous Epithelial Cells - UA 0 SEEN /hpf (0-5)
[2018-09-17 21:37] LABS: Color, Urine Yellow (Yellow); Glucose, Dipstick Normal (Normal); Ketone-Dipstick Negative (Negative); Leukocyte Esterase-Dipstick 500 /ul (Negative); Nitrite-Dipstick Positive (Negative); Occult Blood-Urine 250 /ul (Negative); Protein-Dipstick 30 mg/dl (Negative); Urine Bilirubin Dipstick Negative (Negative); Urine Clarity Sl. Cloudy (Clear); Urine Urobilinogen Normal (Normal)
[2018-09-17 21:44] LABS: Bacteria 1+ /hpf (None Seen); Red Blood Cells-Urine 0-5 SEEN /hpf (0-5); White Blood Cells 25-50 SEEN /hpf (0-5)
[2018-09-17] MEDS: Cephalexin 250 MG Capsule 500 MG PO (23:05)
[2018-09-17 23:06] VITALS: BP 162/90; PULSE 58; RESP 16
--- NOTE | 2018-09-20 12:11 | ED.RN ---
Urine culture results required med change per dr Carbajal. Notified pt via telephone [phone]. He is aware to start new atb and discontinue keflex. Called [facility] per pt request, . Bactrim DS po bid x7 days
== END 2018-09-17 23:10 | disposition home or self-care (01) ==
PROVIDERS: Emergency Provider Emergency Medicine; Family Provider Family Medicine Geriatric Medicine; PCP Family Medicine Geriatric Medicine
DX: N39.0 Urinary tract infection, site not specified (principal); N40.1 Benign prostatic hyperplasia with lower urinary tract symptoms; I10 Essential (primary) hypertension; R33.9 Retention of urine, unspecified
CPT/HCPCS: 81001; 87077; 87086; 87088; 87186; 99283

== ENCOUNTER 2018-10-09 23:28 | Emergency (ER) | payer MEDICARE, SELFPAY ==
[2018-10-09 23:29] VITALS: BP 168/106; PULSE 71; RESP 18; TEMP 36.6; O2SAT 97; BMI 40.8
--- NOTE | 2018-10-10 00:08 | ED.VIS.GEN ---
History of Present Illness Chief Complaint: Complaint Informant: Patient Narrative: Patient needs a Black catheter per patient he has not urinated since earlier this afternoon. He feels like he has to go. He is been having trouble over the last 3 weeks after surgery with anesthesia and having difficulty urinating. He has had catheter placed in the past. It was just removed earlier today by Dr. Bourgeois has not been able to urinate. Current severity is mild to moderate. Requesting a catheter to be placed back again. 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 (4) Hyperlipidemia Status: Chronic (5) Hypertension Status: Chronic (6) Presence of stent in coronary artery Status: Chronic Comment: PTCA/RAMAKRISHNA to OM2 of the LCX 11/2010 Past Medical History - Allergies and Home Meds Allergies/Adverse Reactions: Allergies ibuprofen [From Motrin] Adverse Reaction (Verified 10/09/18 23:29) Nausea Primary Care Physician: Low Zheng Chi, MD [Primary Care Provider] - Prior records reviewed: Yes Surgical History: - - Recent neck surgery C3 through C6 fusion Smoking Status: Former smoker Alcohol: None Drugs: None - Family History Maternal Family History: Family History (Last Updated 09/17/17 @ 11:54 by Yris Wood) Mother CAD (coronary artery disease) Hypertension History of cardiac radiofrequency ablation Sister Hypertension Family History: Reports: Unknown Review of Systems General: Denies: Chills, Fever, Sweats Eyes: Denies: Visual changes - bilaterally, Diplopia ENT: Denies: Rhinorrhea, Sore throat Cardiovascular: Denies: Chest pain, Palpitations Respiratory: Denies: Dyspnea, Cough, Dyspnea on exertion Gastrointestinal: Reports: Abdominal pain. Denies: Nausea, Vomiting, Diarrhea, Melena, Hematochezia Genitourinary: Reports: - - See HPI Musculoskeletal: Denies: Back pain, Extremity Pain Skin: Denies: Rash, Wounds Neurological: Denies: Headache, Weakness, Numbness Physical Exam Vital Signs/Narrative: Vital Signs Temp Pulse Resp BP Pulse Ox 10/09/18 23:29 97.8 F 71 18 168/106 H 97 General: Well nourished, Well developed, No Acute Distress Head: Normocephalic, Atraumatic Eyes: Perrl, EOMI ENT: Moist mucous membranes, No rhinorrhea Neck: Supple, Nontender Cardiovascular: Regular rate, Regular rhythm, No murmurs Respiratory: No distress, CTA bilaterally, Chest nontender Abdomen: Soft, Nondistended, Normal bowel sounds, Tender - Mild suprapubic tenderness. Negative for: Nontender Back: Nontender, Normal Inspection Extremities: Nontender, No edema Skin: Normal color, No rash Neurological: Alert, Oriented x3, Cranial nerves II-XII grossly intact, Normal Strength, Normal Sensation Psychological: Normal affect, Normal Mood Diagnostic/Tx/Re-eval - Medical Decision Making Black catheter placed. Patient had 800 cc of normal urine out. Resting comfortably. Will be discharged with a leg bag to follow-up with urology. ED Disposition - Plan for ED Patient: Disposition: [place] Hospital Diagnosis: Urinary retention Instructions: ED Catheter Care Black Referrals: Low Zheng Chi, MD [Primary Care Provider] - Richard Bourgeois MD [STAFF PHYSICIAN] -
== END 2018-10-10 01:05 | disposition home or self-care (01) ==
PROVIDERS: Emergency Provider Emergency Medicine; Family Provider Family Medicine Geriatric Medicine; PCP Family Medicine Geriatric Medicine
DX: R33.9 Retention of urine, unspecified (principal); Z87.891 Personal history of nicotine dependence; Z88.6 Allergy status to analgesic agent; Z95.5 Presence of coronary angioplasty implant and graft; I25.10 Atherosclerotic heart disease of native coronary artery without angina pectoris; I10 Essential (primary) hypertension; E78.5 Hyperlipidemia, unspecified
CPT/HCPCS: 51702; 99283

== ENCOUNTER 2018-11-01 10:51 | Day surgery (SDC) | payer MEDICARE, SELFPAY ==
[2018-10-25 13:14] VITALS: BP 136/84; PULSE 49; RESP 17; TEMP 36.6; O2SAT 96; BMI 39.9
[2018-10-25 14:09] LABS: Hematocrit 44.3 % (40-54); Hemoglobin 15.7 g/dl (13.0-16.5); Mean Corp Hgb Conc 35.4 g/gl (32-36); Mean Corpuscular Hgb 30.5 pg (27.0-32.0); Mean Corpuscular Volume 86.2 fL (80-94); Mean Platelet Vol. 9.7 fl (6.2-12.0); Platelet Count 208 K/mm3 (150-450); RBC Distribution Width CV 14.5 % (11.6-14.6); RBC Distribution Width SD 44.8 fl (35.1-43.9); Red Blood Count 5.14 M/mm3 (4.6-6.2); White Blood Count 7.1 K/mm3 (4.4-11.0)
[2018-10-25 14:10] LABS: Scan Indicated on CBC? Y/N NO
[2018-10-25 14:22] LABS: Anion Gap 3 (5-15); BUN 13 mg/dL (7-18); BUN/Creat Ratio 13.1 RATIO (10-20); Calcium,Total 8.7 mg/dL (8.5-10.1); Chloride 107 mmol/L (98-107); Creatinine, Serum 0.99 mg/dL (0.70-1.30); EST Glomerular Filtration Rate 80 mL/min (>60); Est Glom Filt Rate - Afr Amer 96 mL/min (>60); Estimated Creatinine Clearance 64.44 ml/min; Glucose 105 mg/dL (74-106); Potassium 3.8 mmol/L (3.5-5.1); Sodium Level 137 mmol/L (136-145)
[2018-11-01] VITALS (10 sets, daily range): BP systolic 125–155; BP diastolic 79–99; PULSE 44–57; RESP 16–20; TEMP 36.2–36.7; O2SAT 96–98; BMI 39.9
--- NOTE | 2018-11-01 13:40 | PROS_PTH ---
PATIENT: TURNER YAN Sr. LOC: [facility] [place] U[place][id number] AGE/SX: 68/M ROOM: RE11/01/[address]: Dr. Richard Bourgeois MD : 1950 BED: DIS: 11/02/2018 SPEC #: [id number] RECD: 11/04/18 07:41 STATUS: BUBBA RE #: [id number] ETIENNE: 11/01/18 13:[address]: Richard Bourgeois DEPT: SURGICAL PATHOLOGY RECD BY: Brenda Ravi ENTERED: 11/04/18 14:47 SP TYPE: TURP OTHR DR: Dr. Low Zheng MD Tissues: Prostate, NOS Procedures: Surgery Specimen Level IV HEADER OPERATION: Cystoscopy, TUR of prostate with Olympus PRE-OP DIAGNOSIS: Benign hypertrophy of prostate with outlet obstruction TISSUE SUBMITTED: Prostate MICROSCOPIC DIAGNOSIS Prostate, transurethral resection: Benign nodule hyperplasia, predominantly stromal type. Mild chronic inflammation. AM:ailyn 11/05/18 MICROSCOPIC DESCRIPTION Slides are reviewed. GROSS DESCRIPTION Received is one container labeled with the patient's name and designated prostate tissue. The specimen consists of multiple irregular fragments of pink-davis, rubbery, soft tissue that in aggregate weigh 8 gm and measure in aggregate 5 x 4 x 2 cm. The entire specimen is submitted in seven cassettes. / SJ:ailyn 11/04/18 TC:3 CPT: 58588
--- NOTE | 2018-11-01 15:07 | DCINST_ITS ---
Discharge Diet: Light diet - advance as tolerated Discharge Activity: Return to Normal Activity Call your doctor if your incision/area has: Sudden Increased Bleeding, Increased Pain/ Swelling, Increased Redness, Foul Smelling Discharge, Swelling at the incision site Call your doctor if you observe: Fever of 101 or Higher Suture Line Care: Avoid Pulling/Pushing, Avoid Pinching/Bending Instructions: Transurethral Resection of the Prostate (TURP): Home Recovery Allergies/Adverse Reactions: Allergies ibuprofen [From Motrin] Adverse Reaction (Verified 11/01/18 11:26) Nausea Medications to take at Discharge Atenolol [Tenormin (beta jess)] 50 mg PO DAILY 08/23/14 lisinopril 10 mg tablet 10 mg PO QHS 09/17/17 Acetaminophen [Tylenol Tablet] 500 mg PO Q4H PRN PRN tablet 07/26/18 Primary Care Physician: Low Zheng Chi, MD [Primary Care Provider] - Test Results: Test results from this visit will be discussed in further detail at your follow- up appointment, if applicable. Please Follow Up With: Rihcard Bourgeois MD When: please call to make an appointment.
[2018-11-01] MEDS: Cefazolin 2 GM in 0.9% Normal Saline 100 ML IV (15:15)
--- NOTE | 2018-11-01 15:52 | PCM.OPRPT ---
Report of Operation Date of Procedure: 11/01/18 Pre-Operative Diagnosis: BPH with retention of urine Post-Operative Diagnosis: Same Surgery/Procedure Performed:: Transurethral resection of the prostate Description of Surgical Findings:: 68-year-old male who presented to the office with difficulty with urination and retention of urine we took out the catheter we did 2 voiding trials and he failed was not able to urinate options were discussed with the patient we could proceed with surgery we could teach him how to do self intermittent catheterization we could continue chronic Cronin catheter, he wanted to proceed with surgery we discussed with the patient and his family the risk of surgery including bleeding, infection, scar tissue formation along the urethra, bladder contracture, failure to cure his retention of urine, damage to the urinary sphincter and incontinence, and retrograde ejaculation erectile dysfunction. After discussing all this with the patient he wishes to proceed to alleviate his obstruction. 68-year-old male taken back to the operating room at the smooth induction of general anesthesia he was placed in dorsolithotomy position is very obese male penis and testicles are prepped in usual sterile fashion went into the urethra with a 26 Nepalese continuous flow resectoscope entire length of the urethra is normal pendulous urethra is normal bulbous with normal sphincter was intact I then had a turn of the way down in order to get over the bladder neck had a very high bladder neck extremely high bladder neck with a median lobe I then resected the bladder neck and the median lobe resected back to the verumontanum and then resected the right lobe of the prostate is about a 1 length loop short prostate and then resect the left of the prostate and then worked on the apex resecting the apex of the proximal next prostate back to the verumontanum the flow test had a enough flow to get urine out checked the sphincter sphincter was intact the resection was only to the verumontanum no further pass this obtained hemostasis all the chips were Ellik out of the bladder and the 22 Nepalese catheter was put into the bladder on continuous bladder irrigation taken at the PACU in good condition. Type of Anesthesia:: General Drains: [address] cronin - Admit VTE Documentation VTE Present on Admission: No VTE Mechan Device Prophylaxis: SCD's
[2018-11-01] MEDS: 0.9% Normal Saline 1,000 ML 125 ML IV ×3 (16:49→23:50)
[2018-11-01] MEDS: Ciprofloxacin 500 MG Tablet PO (22:03)
[2018-11-01] MEDS: Lisinopril 10 MG Tablet PO (22:03)
[2018-11-02 03:00] VITALS: BP 158/82; PULSE 52; RESP 16; TEMP 36.6; O2SAT 98
[2018-11-02] MEDS: Acetaminophen 325 MG Tablet PO (03:50)
--- NOTE | 2018-11-02 06:08 | NURSING ---
Pt's CBI clamped at this time.
[2018-11-02 07:03] LABS: Hematocrit 43.3 % (40-54); Hemoglobin 15.2 g/dl (13.0-16.5); Mean Corp Hgb Conc 35.1 g/gl (32-36); Mean Corpuscular Hgb 30.7 pg (27.0-32.0); Mean Corpuscular Volume 87.5 fL (80-94); Platelet Count 194 K/mm3 (150-450); RBC Distribution Width CV 14.4 % (11.6-14.6); RBC Distribution Width SD 45.3 fl (35.1-43.9); Red Blood Count 4.95 M/mm3 (4.6-6.2); White Blood Count 10.2 K/mm3 (4.4-11.0)
[2018-11-02 07:04] LABS: Scan Indicated on CBC? Y/N NO
[2018-11-02 07:10] VITALS: O2SAT 98
[2018-11-02 07:15] LABS: Anion Gap 7 (5-15); BUN 13 mg/dL (7-18); BUN/Creat Ratio 12.4 RATIO (10-20); Calcium,Total 8.4 mg/dL (8.5-10.1); Chloride 107 mmol/L (98-107); Creatinine, Serum 1.05 mg/dL (0.70-1.30); EST Glomerular Filtration Rate 74 mL/min (>60); Est Glom Filt Rate - Afr Amer 90 mL/min (>60); Estimated Creatinine Clearance 59.92 ml/min; Glucose 116 mg/dL (74-106); Potassium 4.3 mmol/L (3.5-5.1); Sodium Level 138 mmol/L (136-145)
[2018-11-02] MEDS: 0.9% Normal Saline 1,000 ML 125 ML IV (07:23)
--- NOTE | 2018-11-02 08:19 | PCM.PROGNOTE ---
Subjective: 68-year-old male status post TURP for BPH and retention of urine had a really high bladder neck and large median lobe this was resected and the prostate was also resected open, irrigation is been stopped but the urine still slightly bloody too early to take out the catheter given the bloody urine but he can go home with a catheter which the patient wishes to do to avoid any further charges from the hospital which is reasonable especially given his outpatient we discussed the outpatient status. - Physical Exam General: Alert, Oriented x3, Cooperative HEENT: Atraumatic, PERRLA, EOMI, Normocephalic Neck: Supple, No JVD, Negative Carotid Bruits Lungs: Clear to auscultation, Normal air movement Cardiovascular: Regular rate, No murmurs Abdomen: Bowel Sounds Present, Soft, Non Tender Extremities: No edema, Capillary Refill Less than 3 Seconds Skin: No rashes, No breakdown Musculoskeletal: No Tenderness to Palpation of Joints or Extremities Neurological: Cranial nerves II-XII grossly intact Psych/Mental Status: Normal Affect, Appropriate Vital Signs Temp Pulse Resp BP Pulse Ox 97.9 F 52 L 16 158/82 H 98 11/02/18 03:00 11/02/18 03:00 11/02/18 03:00 11/02/18 03:00 11/02/18 07:10 Oxygen Flow Rate (L/min) 2 Oxygen Delivery Method Nasal Cannula Weight: 112.1 kg Body Mass Index (BMI) 39.9 Intake and Output for Last 24 Hours 10/31/18 11/01/18 11/02/18 23:59 23:59 23:59 Intake Total 1218 / 2693 1475 / 1475 Output Total 3400 / 3400 Balance -2182 / -707 1475 / 1475 Laboratory Tests Past 24 Hrs 11/02/18 11/02/18 06:40 06:40 WBC 10.2 RBC 4.95 Hgb 15.2 Hct 43.3 MCV 87.5 MCH 30.7 MCHC 35.1 RDW 14.4 RDW Differential 45.3 H Plt Count 194 MPV 10.0 Sodium 138 Potassium 4.3 Chloride 107 Carbon Dioxide 24.0 Anion Gap 7 BUN 13 Creatinine 1.05 Estim Creat Clear Calc 59.92 Est GFR (MDRD) Af Amer 90 Est GFR (MDRD) Non-Af 74 BUN/Creatinine Ratio 12.4 Glucose 116 H Calcium 8.4 L Medical Necessity - Tobacco Use Smoking Status: Former smoker Tobacco Use: Cigars Assessment/Plan All Active Problems (Last Updated 09/17/17 @ 11:14 by Yris Wood) Tachycardia (Acute) 68-year-old male status post TURP stable, home with a catheter for now he can follow-up in the office Sunday or Sunday next week to remove the catheter for voiding trial he will go home with antibiotics Tylenol and ibuprofen for pain or discomfort. He did well overnight.
[2018-11-02 09:10] VITALS: BP 114/65; PULSE 70; RESP 18; TEMP 36.3; O2SAT 94
[2018-11-02 09:15] VITALS: PULSE 64
--- NOTE | 2018-11-02 09:51 | NURSING ---
REFUSED LEG BAG WHEN OFFERED. STATES I'VE HAD THE BIG BAG SEVERAL MONTHS & I CAN'T CHANGE TO LEG BAG. INSTRUCTED TO CALL FIRST THING SUNDAY MORNING FOR APPOINTMENT TO GET CATHETER D/C IN 'S OFFICE. STATES UNDERSTANDING.
== END 2018-11-02 09:50 | disposition home or self-care (01) ==
LOC: SDC 10:52 → AC 10:53 → MS3 12:51
PROVIDERS: Anesthesiology; Family Provider Family Medicine Geriatric Medicine; PCP Family Medicine Geriatric Medicine; Referring Provider Urology; Visit Provider Urology
PROC: (CPT 52630; principal; 2018-11-01 13:30)
DX: N41.1 Chronic prostatitis (principal); N40.1 Benign prostatic hyperplasia with lower urinary tract symptoms; R32 Unspecified urinary incontinence; R33.8 Other retention of urine; I10 Essential (primary) hypertension; Z90.79 Acquired absence of other genital organ(s); Z87.891 Personal history of nicotine dependence; Z95.5 Presence of coronary angioplasty implant and graft
CPT/HCPCS: 52630; 36415; 80048; 85027; 88305; J7030; J7120; J2405

== ENCOUNTER → 2019-01-17 11:33 | Outpatient (CLI) | payer MEDICARE, SELFPAY ==
[2018-11-01 17:56] VITALS: BMI 39.9
[2019-01-17 12:59] LABS: Absolute Lymphocyte Count 1.16 X10^3/uL (0.83-4.51); Absolute Neutrophil Count 5.5 X10^3/uL (2.0-7.7); Basophil# 0.03 X10^3/uL; Basophil% 0.4 % (0-1); Eosinophil# 0.23 X10^3/uL; Hematocrit 47.6 % (40-54); Lymphocyte # 1.16 X10^3/ul (4.0); Lymphocyte % 15.2 % (19-41); Mean Corp Hgb Conc 33.6 g/dL (32-36); Mean Corpuscular Volume 89.1 fL (80-94); Mean Platelet Vol. 10.3 fl (6.2-12.0); Monocyte# 0.65 X10^3/uL; Monocyte% 8.5 % (0-10); NRBC Flagged by Analyzer 0 % (0-5); Neutrophil # 5.52 X10^3/uL (2.7-7.7); Neutrophil % 72.5 % (47-70); Platelet Count 198 K/mm3 (150-450); RBC Distribution Width CV 13.5 % (11.6-14.6); RBC Distribution Width SD 43.8 fl (35.1-43.9); Red Blood Count 5.34 M/mm3 (4.6-6.2); White Blood Count 7.6 K/mm3 (4.4-11.0)
[2019-01-17 13:49] LABS: ALB/GLOB Ratio 0.9 RATIO (0.9-2.4); AST(SGOT) 18 U/L (15-37); Alanine Aminotransfer ALT/SGPT 33 U/L (16-61); Albumin, Serum 3.5 g/dL (3.2-5.0); Alkaline Phosphatase 92 U/L (45-117); Anion Gap 6 (5-15); BUN 13 mg/dL (7-18); BUN/Creat Ratio 11.1 RATIO (10-20); Calcium,Total 8.8 mg/dL (8.5-10.1); Chloride 105 mmol/L (98-107); Creatinine, Serum 1.17 mg/dL (0.70-1.30); EST Glomerular Filtration Rate 66 mL/min (>60); Est Glom Filt Rate - Afr Amer 79 mL/min (>60); Globulin 3.9 g/dL (2.2-4.2); Glucose 104 mg/dL (74-106); Potassium 3.7 mmol/L (3.5-5.1); Protein, Total 7.4 g/dL (6.4-8.2); Sodium Level 136 mmol/L (136-145); Thyroid Stim Hormone (TSH) 2.27 uIU/mL (0.358-3.74)
== END ==
PROVIDERS: Family Provider Family Medicine Geriatric Medicine; PCP Family Medicine Geriatric Medicine; Visit Provider Family Medicine Geriatric Medicine
DX: E55.9 Vitamin D deficiency, unspecified (principal); I10 Essential (primary) hypertension
CPT/HCPCS: 36415; 80053; 82306; 84443; 85025

== ENCOUNTER → 2019-04-03 14:52 | Outpatient (CLI) | payer MEDICARE, SELFPAY ==
[2018-11-01 17:56] VITALS: BMI 39.9
[2019-04-03 15:41] LABS: Absolute Lymphocyte Count 1.32 X10^3/uL (0.83-4.51); Absolute Neutrophil Count 5.7 X10^3/uL (2.0-7.7); Basophil# 0.02 X10^3/uL; Basophil% 0.3 % (0-1); Eosinophils% 2.5 % (0-5); Hematocrit 48.9 % (40-54); Hemoglobin 16.6 g/dL (13.0-16.5); Lymphocyte # 1.32 X10^3/ul (4.0); Lymphocyte % 16.6 % (19-41); Mean Corp Hgb Conc 33.9 g/dL (32-36); Mean Corpuscular Hgb 30.2 pg (27.0-32.0); Mean Corpuscular Volume 88.9 fL (80-94); Mean Platelet Vol. 10.2 fl (6.2-12.0); Monocyte# 0.63 X10^3/uL; Monocyte% 7.9 % (0-10); NRBC Flagged by Analyzer 0 % (0-5); Neutrophil # 5.74 X10^3/uL (2.7-7.7); Neutrophil % 72.4 % (47-70); Platelet Count 194 K/mm3 (150-450); RBC Distribution Width CV 13.8 % (11.6-14.6); RBC Distribution Width SD 44.6 fl (35.1-43.9); White Blood Count 7.9 K/mm3 (4.4-11.0)
[2019-04-03 16:03] LABS: ALB/GLOB Ratio 0.9 RATIO (0.9-2.4); AST(SGOT) 21 U/L (15-37); Alanine Aminotransfer ALT/SGPT 33 U/L (16-61); Albumin, Serum 3.6 g/dL (3.2-5.0); Alkaline Phosphatase 84 U/L (45-117); Anion Gap 5 (5-15); BUN 15 mg/dL (7-18); BUN/Creat Ratio 12.2 RATIO (10-20); Bilirubin, Direct 0.26 mg/dL (0.00-0.30); Calcium,Total 8.8 mg/dL (8.5-10.1); Chloride 106 mmol/L (98-107); Cholesterol 181 mg/dL (200); Creatinine, Serum 1.23 mg/dL (0.70-1.30); EST Glomerular Filtration Rate 62 mL/min (>60); Est Glom Filt Rate - Afr Amer 75 mL/min (>60); Globulin 3.9 g/dL (2.2-4.2); Glucose 102 mg/dL (74-106); High Density Lipoprotein 33 mg/dL; Potassium 3.9 mmol/L (3.5-5.1); Protein, Total 7.5 g/dL (6.4-8.2); Sodium Level 141 mmol/L (136-145); Triglycerides 142 mg/dL; Very Low Density Lipoprotein 28 mg/dL (5-40)
[2019-04-04 09:34] LABS: Hepatitis B Surface Antibody Non-Reactive; Hepatitis B Surface Antigen Non-Reactive (Nonreactive); Hepatitis C Antibody Non-Reactive (Nonreactive)
[2019-04-06 03:06] LABS: QNTFERON TB Mitogen Value > 10.00 IU/mL (.); QNTFERON TB Nil Value 0.37 IU/mL (.); QNTFERON TB1+ Ag Value 0.53 IU/mL (.); QNTFERON TB2+ Ag Value 0.53 IU/mL (.)
[2019-04-07 17:39] LABS: Hepatitis B Core AB IgM Negative (Negative); QNTIFERON TB Positive Criteria Negative (Negative)
== END ==
PROVIDERS: Family Provider Family Medicine Geriatric Medicine; PCP Family Medicine Geriatric Medicine; Referring Provider Nurse Practitioner Family; Visit Provider Nurse Practitioner Family
DX: L40.0 Psoriasis vulgaris (principal); L40.59 Other psoriatic arthropathy
CPT/HCPCS: 36415; 80053; 80061; 82248; 85025; 86480; 86705; 86706; 86803; 87340

== ENCOUNTER → 2019-06-09 14:15 | Outpatient (CLI) | payer MEDICARE, SELFPAY ==
[2018-11-01 17:56] VITALS: BMI 39.9
[2019-06-09 16:02] LABS: Anion Gap 1 (5-15); BUN 16 mg/dL (7-18); BUN/Creat Ratio 13.4 RATIO (10-20); Calcium,Total 9.4 mg/dL (8.5-10.1); Chloride 106 mmol/L (98-107); Creatinine, Serum 1.19 mg/dL (0.70-1.30); EST Glomerular Filtration Rate 64 mL/min (>60); Est Glom Filt Rate - Afr Amer 78 mL/min (>60); Glucose 98 mg/dL (74-106); PSA,Total- Diagnostic 1.28 ng/mL (0.0-4.0); Potassium 4.2 mmol/L (3.5-5.1); Sodium Level 139 mmol/L (136-145)
== END ==
PROVIDERS: PCP Family Medicine Geriatric Medicine; Referring Provider Urology; Visit Provider Urology
DX: N40.1 Benign prostatic hyperplasia with lower urinary tract symptoms (principal)
CPT/HCPCS: 36415; 80048; 84153

== ENCOUNTER → 2019-07-07 15:33 | Outpatient (CLI) | payer MEDICARE, SELFPAY ==
[2018-11-01 17:56] VITALS: BMI 39.9
[2019-07-07 17:44] LABS: Absolute Lymphocyte Count 1.31 X10^3/uL (0.83-4.51); Absolute Neutrophil Count 6.7 X10^3/uL (2.0-7.7); Basophil# 0.02 X10^3/uL; Basophil% 0.2 % (0-1); Eosinophil# 0.21 X10^3/uL; Eosinophils% 2.3 % (0-5); Hemoglobin 17.1 g/dL (13.0-16.5); Lymphocyte # 1.31 X10^3/ul (4.0); Lymphocyte % 14.3 % (19-41); Mean Corp Hgb Conc 33.5 g/dL (32-36); Mean Corpuscular Hgb 30.8 pg (27.0-32.0); Mean Corpuscular Volume 91.9 fL (80-94); Mean Platelet Vol. 10.4 fl (6.2-12.0); Monocyte# 0.91 X10^3/uL; NRBC Flagged by Analyzer 0 % (0-5); Neutrophil # 6.67 X10^3/uL (2.7-7.7); Platelet Count 220 K/mm3 (150-450); RBC Distribution Width CV 14.2 % (11.6-14.6); RBC Distribution Width SD 47.6 fl (35.1-43.9); Red Blood Count 5.55 M/mm3 (4.6-6.2); White Blood Count 9.1 K/mm3 (4.4-11.0)
[2019-07-07 18:00] LABS: Vitamin D,25 Hydroxy 13.6 ng/mL
[2019-07-07 18:09] LABS: ALB/GLOB Ratio 0.9 RATIO (0.9-2.4); AST(SGOT) 25 U/L (15-37); Alanine Aminotransfer ALT/SGPT 38 U/L (16-61); Albumin, Serum 3.7 g/dL (3.2-5.0); Alkaline Phosphatase 82 U/L (45-117); Anion Gap 7 (5-15); BUN 15 mg/dL (7-18); BUN/Creat Ratio 13.3 RATIO (10-20); Calcium,Total 8.3 mg/dL (8.5-10.1); Chloride 102 mmol/L (98-107); Creatinine, Serum 1.13 mg/dL (0.70-1.30); EST Glomerular Filtration Rate 68 mL/min (>60); Est Glom Filt Rate - Afr Amer 83 mL/min (>60); Globulin 4.1 g/dL (2.2-4.2); Glucose 98 mg/dL (74-106); Protein, Total 7.8 g/dL (6.4-8.2); Sodium Level 136 mmol/L (136-145); Thyroid Stim Hormone (TSH) 2.78 uIU/mL (0.358-3.74); Uric Acid 7.9 mg/dL (3.5-7.2)
== END ==
PROVIDERS: PCP Family Medicine Geriatric Medicine; Visit Provider Family Medicine Geriatric Medicine
DX: E55.9 Vitamin D deficiency, unspecified (principal); I10 Essential (primary) hypertension; Z12.5 Encounter for screening for malignant neoplasm of prostate
CPT/HCPCS: 36415; 80053; 82306; 84443; 84550; 85025

== ENCOUNTER → 2019-07-09 17:00 | Outpatient (CLI) | payer MEDICARE, SELFPAY ==
[2018-11-01 17:56] VITALS: BMI 39.9
--- NOTE | 2019-07-09 17:04 | CT_ITS ---
STUDY: CT BRAIN WITHOUT CONTRAST REASON FOR EXAM: Male, 68 years old. Closed head injury 1.5 months ago hitting left side of head. RADIATION DOSAGE (If Supplied By Facility): CTDIvol = ( 44.99 ) mGy, DLP = ( 796.11 ) mGycm TECHNIQUE: Transaxial CT imaging of the brain was performed without administration of intravenous contrast material. Individualized dose optimization techniques were used for this CT. COMPARISON: 07/02/2018 FINDINGS: Normal soft tissue structures. Normal calvarium. There is mild cerebral atrophy with widening of the extra-axial spaces and ventricular dilatation. There are areas of decreased attenuation within the white matter tracts of the supratentorial brain, consistent with microvascular disease changes. Normal basal ganglia and thalami. Normal brainstem. There is mild cerebellar atrophy. 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 There is no intracranial hemorrhage. There are no findings of an acute ischemic infarction. There is mucoperiosteal inflammatory disease of the paranasal sinuses consistent with mild chronic sinusitis. There has been surgery of the left maxillary sinus which is nearly completely filled with soft tissue density. CT/Brain/Head without Contrast IMPRESSION: Chronic involutional changes of the brain. No definite acute abnormality. Electronically Signed: Geoffrey Loco MD at 23:55 EDT , Service support ,
== END ==
PROVIDERS: PCP Family Medicine Geriatric Medicine; Referring Provider Family Medicine Geriatric Medicine; Visit Provider Family Medicine Geriatric Medicine
DX: S09.90XA Unspecified injury of head, initial encounter (principal)
CPT/HCPCS: 70450

== ENCOUNTER → 2019-08-18 15:39 | Outpatient (CLI) | payer MEDICARE, SELFPAY ==
[2018-11-01 17:56] VITALS: BMI 39.9
[2019-08-18 16:10] LABS: Absolute Lymphocyte Count 1.16 X10^3/uL (0.83-4.51); Absolute Neutrophil Count 5.4 X10^3/uL (2.0-7.7); Basophil# 0.02 X10^3/uL; Basophil% 0.3 % (0-1); Eosinophil# 0.19 X10^3/uL; Eosinophils% 2.5 % (0-5); Hematocrit 48.9 % (40-54); Hemoglobin 16.8 g/dL (13.0-16.5); Lymphocyte # 1.16 X10^3/ul (4.0); Lymphocyte % 15.5 % (19-41); Mean Corp Hgb Conc 34.4 g/dL (32-36); Mean Corpuscular Hgb 31.8 pg (27.0-32.0); Mean Corpuscular Volume 92.4 fL (80-94); Monocyte# 0.64 X10^3/uL; Monocyte% 8.6 % (0-10); NRBC Flagged by Analyzer 0 % (0-5); Neutrophil # 5.43 X10^3/uL (2.7-7.7); Neutrophil % 72.8 % (47-70); Platelet Count 203 K/mm3 (150-450); RBC Distribution Width CV 13.5 % (11.6-14.6); RBC Distribution Width SD 46.1 fl (35.1-43.9); Red Blood Count 5.29 M/mm3 (4.6-6.2); White Blood Count 7.5 K/mm3 (4.4-11.0)
[2019-08-18 16:39] LABS: Anion Gap 5 (5-15); BUN 19 mg/dL (7-18); BUN/Creat Ratio 14.3 RATIO (10-20); Calcium,Total 8.7 mg/dL (8.5-10.1); Chloride 106 mmol/L (98-107); Creatinine, Serum 1.33 mg/dL (0.70-1.30); EST Glomerular Filtration Rate 57 mL/min (>60); Est Glom Filt Rate - Afr Amer 68 mL/min (>60); Glucose 103 mg/dL (74-106); Potassium 3.9 mmol/L (3.5-5.1); Sodium Level 139 mmol/L (136-145)
== END ==
PROVIDERS: PCP Family Medicine Geriatric Medicine; Referring Provider Family Medicine Geriatric Medicine; Visit Provider Family Medicine Geriatric Medicine
DX: R55 Syncope and collapse (principal)
CPT/HCPCS: 36415; 80048; 85025

== ENCOUNTER → 2019-08-19 10:08 | Outpatient (CLI) | payer MEDICARE, SELFPAY ==
[2018-11-01 17:56] VITALS: BMI 39.9
--- NOTE | 2019-08-19 10:12 | RAD_ITS ---
STUDY: X-RAY - RIGHT ELBOW REASON FOR EXAM: Male, 68 years old. Elbow pain s/p fall TECHNIQUE: 3 view(s) of the elbow. COMPARISON: Comparison is made with prior study dated December 19, 2016. FINDINGS: Normal visualized humerus, radius and ulna. Normal radiocapitellar and ulnotrochlear articulations. The soft tissue structures are unremarkable. RAD/Elbow min 3 Views IMPRESSION: Normal x-ray examination of the elbow. Electronically Signed: Ramiro Norris, at 14:30 EDT , Service support ,
== END ==
PROVIDERS: PCP Family Medicine Geriatric Medicine; Referring Provider Family Medicine Geriatric Medicine; Visit Provider Family Medicine Geriatric Medicine
DX: M25.529 Pain in unspecified elbow (principal)
CPT/HCPCS: 73080

== ENCOUNTER → 2019-08-22 15:17 | Outpatient (CLI) | payer MEDICARE, SELFPAY ==
[2018-11-01 17:56] VITALS: BMI 39.9
[2019-08-22 16:20] LABS: Anion Gap 5 (5-15); BUN 23 mg/dL (7-18); BUN/Creat Ratio 20.9 RATIO (10-20); Calcium,Total 8.9 mg/dL (8.5-10.1); Chloride 107 mmol/L (98-107); EST Glomerular Filtration Rate 70 mL/min (>60); Est Glom Filt Rate - Afr Amer 85 mL/min (>60); Glucose 120 mg/dL (74-106); Potassium 4.1 mmol/L (3.5-5.1); Sodium Level 139 mmol/L (136-145)
== END ==
LOC: LAB.FUTURE 15:19 → LAB 15:20
PROVIDERS: PCP Family Medicine Geriatric Medicine; Referring Provider Family Medicine Geriatric Medicine; Visit Provider Family Medicine Geriatric Medicine
DX: E86.0 Dehydration (principal)
CPT/HCPCS: 36415; 80048

== ENCOUNTER → 2019-08-25 14:42 | Outpatient (CLI) | payer MEDICARE, SELFPAY ==
[2018-11-01 17:56] VITALS: BMI 39.9
--- NOTE | 2019-08-25 14:45 | VDUE_ITS ---
Reason For Study: Localized edema Right Proximal Right jugular vein is spontaneous, widely patent, phasic, with no intraluminal echogenicity noted. Right subclavian vein is spontaneous, widely patent, phasic, with no intraluminal echogenicity noted. Right Lower Arm Right radial vein is compressible. Right ulnar vein is compressible. Right Arm Right axillary vein is spontaneous, patent, phasic, competent, compressible and demonstrates augmentation. Right brachial vein is compressible. Right cephalic vein is compressible. Right basilic vein is compressible. Patient Safety Prelim to Norm. Interpretation Summary Deep veins of the right upper extremity are patent and compressible segmentally. There is no evidence of deep vein thrombosis. The superficial veins of the right upper extremity, the basilic and cephalic veins, are patent and compressible. There is no evidence of right upper extremity superficial thrombophlebitis involving the veins imaged. Ordering Physician: Low Zheng Referring Physician: Low Zheng Chi Performed By: Irene Cai RVT ?
== END ==
PROVIDERS: PCP Family Medicine Geriatric Medicine; Visit Provider Family Medicine Geriatric Medicine
DX: R60.0 Localized edema (principal)
CPT/HCPCS: 93971

== ENCOUNTER → 2019-12-31 12:55 | Outpatient (CLI) | payer MEDICARE, SELFPAY ==
[2019-08-29 08:45] VITALS: BMI 39.9
--- NOTE | 2019-12-31 12:57 | VDLE_ITS ---
Reason For Study: Pain RIGHT LEFT CFV is compressible, spontaneous, phasic, GSV is normal. competent and demonstrates normal CFV is compressible, spontaneous, phasic, augmentation. competent, and demonstrates normal FV is compressible, spontaneous, phasic, augmentation. competent and demonstrates normal FV is compressible, spontaneous, phasic, augmentation. competent and demonstrates normal POP V is compressible, spontaneous, phasic, augmentation. competent and demonstrates normal POP V is compressible, spontaneous, phasic, augmentation. competent and demonstrates normal T/P Trunk is compressible. augmentation. PTV is compressible. T/P Trunk is compressible. RT PerV is compressible. PTV is compressible. SFJ is INCOMPETENT and measures 0.70cm x 0.71 LT PerV is compressible. cm. SFJ is competent and measures 0.75cm x 0.67 GSV proximal thigh measures 0.61cm x 0.56 cm. cm. GSV at knee measures 0.50cm x 0.45 cm. GSV proximal thigh measures 0.64cm x 0.56 cm. GSV INCOMPETENT throughout for greater than GSV at knee measures 0.43cm x 0.45 cm. 0.5 seconds. GSV is competent throughout. SSV proximal calf is INCOMPETENT for greater SSV proximal calf is competent and measures than 0.5 seconds and measures 0.44cm x 0.48 0.37cm x 0.39 cm. cm. Procedure Exam performed in department. A preliminary report was called and/or faxed to Dr. Martinez. Interpretation Summary Deep veins of the lower extremities are bilaterally patent and compressible segmentally. There is no evidence of deep vein thrombosis on either side. Valvular competence appears intact within the proximal deep venous systems bilaterally. The great saphenous veins appear bilaterally patent and compressible segmentally. The right sapheno-femoral junction is incompetent . The left sapheno- femoral junction is competent . The right great saphenous vein appears segmentally incompetent. The left great saphenous vein appears segmentally competent. The right small saphenous vein is patent and incompetent. The left small saphenous vein is patent and competent. Ordering Physician: Caitie Martinez Referring Physician: Low Zheng Chi Performed By: Venita Rayo RDCS, RVT
== END ==
PROVIDERS: PCP Family Medicine Geriatric Medicine; Referring Provider Podiatrist; Visit Provider Podiatrist
DX: M79.671 Pain in right foot (principal); I87.2 Venous insufficiency (chronic) (peripheral); R60.0 Localized edema
CPT/HCPCS: 93970

== ENCOUNTER → 2020-01-06 15:21 | Outpatient (CLI) | payer MEDICARE, SELFPAY ==
[2019-08-29 08:45] VITALS: BMI 39.9
[2020-01-06 16:29] LABS: Absolute Lymphocyte Count 1.14 X10^3/uL (0.83-4.51); Absolute Neutrophil Count 5.5 X10^3/uL (2.0-7.7); Basophil# 0.03 X10^3/uL; Basophil% 0.4 % (0-1); Eosinophil# 0.24 X10^3/uL; Eosinophils% 3.1 % (0-5); Hematocrit 47.1 % (40-54); Hemoglobin 15.9 g/dL (13.0-16.5); Lymphocyte # 1.14 X10^3/ul (4.0); Lymphocyte % 14.8 % (19-41); Mean Corp Hgb Conc 33.8 g/dL (32-36); Mean Corpuscular Hgb 31.1 pg (27.0-32.0); Mean Corpuscular Volume 92.2 fL (80-94); Mean Platelet Vol. 10.3 fl (6.2-12.0); Monocyte# 0.79 X10^3/uL; Monocyte% 10.3 % (0-10); NRBC Flagged by Analyzer 0 % (0-5); Neutrophil # 5.47 X10^3/uL (2.7-7.7); Neutrophil % 71.1 % (47-70); Platelet Count 222 K/mm3 (150-450); RBC Distribution Width CV 13.8 % (11.6-14.6); RBC Distribution Width SD 46.8 fl (35.1-43.9); Red Blood Count 5.11 M/mm3 (4.6-6.2); White Blood Count 7.7 K/mm3 (4.4-11.0)
[2020-01-06 16:38] LABS: Vitamin D,25 Hydroxy 23.2 ng/mL
[2020-01-06 16:44] LABS: ALB/GLOB Ratio 0.8 RATIO (0.9-2.4); AST(SGOT) 26 U/L (15-37); Alanine Aminotransfer ALT/SGPT 32 U/L (16-61); Albumin, Serum 3.4 g/dL (3.2-5.0); Alkaline Phosphatase 71 U/L (45-117); Anion Gap 5 (5-15); BUN 16 mg/dL (7-18); BUN/Creat Ratio 14.8 RATIO (10-20); Chloride 107 mmol/L (98-107); Creatinine, Serum 1.08 mg/dL (0.70-1.30); EST Glomerular Filtration Rate 72 mL/min (>60); Est Glom Filt Rate - Afr Amer 87 mL/min (>60); Glucose 100 mg/dL (74-106); Protein, Total 7.4 g/dL (6.4-8.2); Sodium Level 139 mmol/L (136-145); Thyroid Stim Hormone (TSH) 2.12 uIU/mL (0.358-3.74)
== END ==
PROVIDERS: PCP Family Medicine Geriatric Medicine; Visit Provider Family Medicine Geriatric Medicine
DX: I10 Essential (primary) hypertension (principal); E55.9 Vitamin D deficiency, unspecified
CPT/HCPCS: 36415; 80053; 82306; 84443; 85025

== ENCOUNTER 2020-02-01 16:30 | Emergency (ER) | payer MEDICARE, SELFPAY ==
[2019-08-29 08:45] VITALS: BMI 39.9
[2020-02-01 16:32] VITALS: BP 159/100; PULSE 18; RESP 16; TEMP 35.9; O2SAT 96; BMI 39.4
--- NOTE | 2020-02-01 16:47 | EKG12_ITS ---
Test Reason : FALL Blood Pressure : / mmHG Vent. Rate : 055 BPM Atrial Rate : 055 BPM P-R Int : 156 ms QRS Dur : 086 ms QT Int : 414 ms P-R-T Axes : -05 002 139 degrees QTc Int : 396 ms Sinus bradycardia Inferior infarct , age undetermined Anterior infarct , age undetermined ST & T wave abnormality, consider lateral ischemia Abnormal ECG Confirmed by DAVE GLASS, DEZ ([id number]), greeting card editor GINGER YAN ([id number]) on 02/04/2020 10:07:48 AM Referred By: NIKKI Confirmed By:DEZ ACOSTA MD
--- NOTE | 2020-02-01 16:48 | RAD_ITS ---
STUDY: X-RAY - LEFT TIBIA AND FIBULA REASON FOR EXAM: Male, 69 years old. FELL GETTING INTO TRUCK. REDNESS AND SWELLING. TECHNIQUE: 2 view(s) of the tibia and fibula were obtained. COMPARISON: None. FINDINGS: Normal visualized tibia. Normal visualized fibula. Soft tissue swelling. RAD/Tibia & Fibula 2 Views IMPRESSION: No acute osseous injury is evident. Electronically Signed: Magan Wei MD at 17:46 EDT Tel , Service support ,
--- NOTE | 2020-02-01 16:51 | ED.VIS.GEN ---
History of Present Illness Chief Complaint: Lower Extremity Injury Informant: Patient, Family Onset: Weeks Maximum Severity: Mild Narrative: Patient complains of left leg tib-fib area pain and swelling that began a week ago when he was trying to get into a truck he struck his leg against the running board of the truck had immediate pain and now he has redness and warmth, he has a history of cardiac stents stable hypertension no history of diabetes MRSA or peripheral vascular disease Past Medical History - Allergies and Home Meds Allergies/Adverse Reactions: Allergies ibuprofen [From Motrin] Adverse Reaction (Verified 02/01/20 16:32) Nausea Primary Care Physician: Low Zheng Chi, MD [Primary Care Provider] - Past Medical History: - Surgical History: - - Recent neck surgery C3 through C6 fusion Smoking Status: Former smoker - Family History Maternal Family History: Family History (Last Updated 09/17/17 @ 11:54 by Yris Wood) Mother CAD (coronary artery disease) Hypertension History of cardiac radiofrequency ablation Sister Hypertension Family History: Reports: Unknown Review of Systems ROS: - Includes as above General: Denies: Chills, Fever, Sweats Eyes: Denies: Visual changes - bilaterally, Diplopia ENT: Denies: Rhinorrhea, Sore throat Cardiovascular: Denies: Chest pain, Palpitations Respiratory: Denies: Dyspnea, Cough, Dyspnea on exertion Gastrointestinal: Denies: Abdominal pain, Nausea, Vomiting, Diarrhea, Melena, Hematochezia Genitourinary: Denies: Dysuria, Hematuria, Frequency Musculoskeletal: Reports: Extremity Pain. Denies: Back pain Skin: Denies: Rash, Wounds Neurological: Denies: Headache, Weakness, Numbness Physical Exam Vital Signs/Narrative: Vital Signs Temp Pulse Resp BP Pulse Ox 02/01/20 16:32 96.7 F L 18 L 16 159/100 H 96 General: Well nourished, Well developed, No Acute Distress Head: Normocephalic, Atraumatic Eyes: Perrl, EOMI ENT: Moist mucous membranes, No rhinorrhea Neck: Supple, Nontender Cardiovascular: Regular rate, Regular rhythm, No murmurs Respiratory: No distress, CTA bilaterally, Chest nontender Abdomen: Soft, Nontender, Nondistended, Normal bowel sounds Back: Nontender, Normal Inspection Extremities: No edema, - - He has redness and warmth over the mid tib-fib extending both distally more proximally, he has an area of contusion centrally to the spot, he has intact dorsalis pedis pulse, his foot is unremarkable calf knee hip unremarkable, no signs of any type of DVT he has swelling of 2-3+ bilateral that is chronic and unchanged skin is intact there is no drainage Skin: Normal color, No rash Neurological: Alert, Oriented x3, Cranial nerves II-XII grossly intact, Normal Strength, Normal Sensation Psychological: Normal affect, Normal Mood Diagnostic/Tx/Re-eval - Medical Decision Making Given all the above concept of cellulitis contusion etc. screening labs x-ray pain management antibiotics ED Disposition - Plan for ED Patient: Referrals: Low Zheng Chi, MD [Primary Care Provider] -
[2020-02-01 17:11] VITALS: BP 150/101; PULSE 64; RESP 15; TEMP 36.4; O2SAT 96
[2020-02-01 17:12] VITALS: O2SAT 96
[2020-02-01] MEDS: Ondansetron 4 MG/2 ML Vial IV (17:13)
[2020-02-01] MEDS: 0.9% Normal Saline 1,000 ML 150 ML IV (17:13)
[2020-02-01] MEDS: morphine 8 MG/ML Syringe IV (17:13)
[2020-02-01 17:15] LABS: Absolute Lymphocyte Count 0.99 X10^3/uL (0.83-4.51); Absolute Neutrophil Count 7.5 X10^3/uL (2.0-7.7); Basophil# 0.02 X10^3/uL; Basophil% 0.2 % (0-1); Eosinophil# 0.15 X10^3/uL; Eosinophils% 1.5 % (0-5); Hematocrit 45.7 % (40-54); Hemoglobin 15.6 g/dL (13.0-16.5); Lymphocyte # 0.99 X10^3/ul (4.0); Lymphocyte % 10.1 % (19-41); Mean Corp Hgb Conc 34.1 g/dL (32-36); Mean Corpuscular Volume 93.6 fL (80-94); Mean Platelet Vol. 10.1 fl (6.2-12.0); Monocyte# 1.07 X10^3/uL; Monocyte% 10.9 % (0-10); NRBC Flagged by Analyzer 0 % (0-5); Neutrophil # 7.53 X10^3/uL (2.7-7.7); Neutrophil % 76.7 % (47-70); Platelet Count 213 K/mm3 (150-450); RBC Distribution Width CV 13.5 % (11.6-14.6); RBC Distribution Width SD 46.3 fl (35.1-43.9); Red Blood Count 4.88 M/mm3 (4.6-6.2); White Blood Count 9.8 K/mm3 (4.4-11.0)
[2020-02-01 17:29] LABS: Anion Gap 6 (5-15); BUN 16 mg/dL (7-18); BUN/Creat Ratio 15.1 RATIO (10-20); Calcium,Total 8.9 mg/dL (8.5-10.1); Chloride 107 mmol/L (98-107); Creatinine, Serum 1.06 mg/dL (0.70-1.30); EST Glomerular Filtration Rate 73 mL/min (>60); Est Glom Filt Rate - Afr Amer 89 mL/min (>60); Estimated Creatinine Clearance 60.63 ml/min; Glucose 111 mg/dL (74-106); Potassium 3.8 mmol/L (3.5-5.1); Sodium Level 139 mmol/L (136-145)
[2020-02-01 18:00] VITALS: BP 149/95; PULSE 51; RESP 20; TEMP 36.5; O2SAT 97
--- NOTE | 2020-02-01 18:27 | ED.VIS.GEN ---
History of Present Illness Chief Complaint: Lower Extremity Injury Informant: Patient, Family Past Medical History - Allergies and Home Meds Allergies/Adverse Reactions: Allergies ibuprofen [From Motrin] Adverse Reaction (Verified 02/01/20 16:32) Nausea Primary Care Physician: Low Zheng Chi, MD [Primary Care Provider] - Surgical History: - - Recent neck surgery C3 through C6 fusion Smoking Status: Former smoker - Family History Maternal Family History: Family History (Last Updated 09/17/17 @ 11:54 by Yris Wood) Mother CAD (coronary artery disease) Hypertension History of cardiac radiofrequency ablation Sister Hypertension Family History: Reports: Unknown Physical Exam Vital Signs/Narrative: Vital Signs Temp Pulse Resp BP Pulse Ox 02/01/20 18:00 97.7 F L 51 L 20 H 149/95 H 97 02/01/20 17:12 96 02/01/20 17:11 97.6 F L 64 15 150/101 H 96 02/01/20 16:32 96.7 F L 18 L 16 159/100 H 96 ED Disposition - Plan for ED Patient: Diagnosis: Cellulitis Instructions: ED Cellulitis Prescriptions: Amoxicillin/Potassium Clav [Augmentin 875-125 Tablet] 1 ea PO BID #20 tab Prescription Printed Hydrocodone Bitart/Apap 5-325 [[place] 5MG-325MG] 1 tab PO Q4H PRN PRN 2 Days #10 tab PRN Reason: Pain Prescription Printed Referrals: Low Zheng Chi, MD [Primary Care Provider] -
[2020-02-01 18:34] VITALS: BP 127/82; PULSE 55; RESP 15; O2SAT 96
[2020-02-01 20:18] VITALS: BP 130/90; PULSE 50; RESP 13; O2SAT 99
[2020-02-03 16:51] LABS: BNP,B-Type NATRIURETIC PEPTIDE 163.7 pg/mL (0-100)
== END 2020-02-01 20:44 | disposition home or self-care (01) ==
PROVIDERS: Emergency Provider Emergency Medicine; PCP Family Medicine Geriatric Medicine
DX: S80.12XA Contusion of left lower leg, initial encounter (principal); L03.116 Cellulitis of left lower limb; I10 Essential (primary) hypertension; Z95.5 Presence of coronary angioplasty implant and graft; Z79.899 Other long term (current) drug therapy; Z87.891 Personal history of nicotine dependence; W22.8XXA Striking against or struck by other objects, initial encounter
CPT/HCPCS: 73590; 80048; 83880; 84484; 85025; 87040; 93005; 96365; 96366; 96367; 96375; 99284; J7030; J7050; A4216; J2405

== ENCOUNTER → 2020-02-16 13:39 | Outpatient (CLI) | payer MEDICARE, SELFPAY ==
[2020-02-01 16:32] VITALS: BMI 39.4
--- NOTE | 2020-02-16 13:50 | US_ITS ---
STUDY: SUPERFICIAL ULTRASOUND - NONVASCULAR LIMITED REASON FOR EXAM: 69-YEAR-OLD WITH HEMATOMA SUPERIOR TO LEFT LATERAL ANKLE. TECHNIQUE: A superficial ultrasound was performed with real-time and static otero-scale imaging. COMPARISON: None. FINDINGS: Targeted ultrasound demonstrates a 6.4 x 3.9 x 1.0 cm complex fluid collection within the subcutaneous soft tissue lateral to the ankle. US/Ext Non Vasc Limited/Soft Tiss IMPRESSION: Findings suggestive of a 6.4 cm hematoma lateral ankle/distal lower leg. Electronically Signed: Kenny Padron MD at 7:06 EDT , Service support ,
== END ==
PROVIDERS: PCP Family Medicine Geriatric Medicine; Referring Provider Family Medicine Geriatric Medicine; Visit Provider Family Medicine Geriatric Medicine
DX: T14.8XXA Other injury of unspecified body region, initial encounter (principal)
CPT/HCPCS: 76882

== ENCOUNTER → 2020-03-24 16:24 | Outpatient (CLI) | payer MEDICARE, SELFPAY ==
[2020-03-24 18:02] LABS: Absolute Lymphocyte Count 1.13 X10^3/uL (0.83-4.51); Absolute Neutrophil Count 5.5 X10^3/uL (2.0-7.7); Basophil# 0.02 X10^3/uL; Basophil% 0.3 % (0-1); Eosinophil# 0.28 X10^3/uL; Eosinophils% 3.7 % (0-5); Hematocrit 49.1 % (40-54); Lymphocyte # 1.13 X10^3/ul (4.0); Lymphocyte % 15.1 % (19-41); Mean Corp Hgb Conc 32.6 g/dL (32-36); Mean Corpuscular Hgb 30.5 pg (27.0-32.0); Mean Corpuscular Volume 93.7 fL (80-94); Mean Platelet Vol. 10.4 fl (6.2-12.0); Monocyte# 0.55 X10^3/uL; Monocyte% 7.3 % (0-10); NRBC Flagged by Analyzer 0 % (0-5); Neutrophil # 5.49 X10^3/uL (2.7-7.7); Neutrophil % 73.3 % (47-70); Platelet Count 248 K/mm3 (150-450); RBC Distribution Width CV 13.6 % (11.6-14.6); RBC Distribution Width SD 46.5 fl (35.1-43.9); Red Blood Count 5.24 M/mm3 (4.6-6.2); White Blood Count 7.5 K/mm3 (4.4-11.0)
[2020-03-24 18:53] LABS: Anion Gap 4 (5-15); BUN 14 mg/dL (7-18); BUN/Creat Ratio 12.2 RATIO (10-20); CPK Total, Creatine Kinase 63 U/L (39-308); Calcium,Total 8.4 mg/dL (8.5-10.1); Chloride 106 mmol/L (98-107); Creatinine, Serum 1.15 mg/dL (0.70-1.30); EST Glomerular Filtration Rate 67 mL/min (>60); Est Glom Filt Rate - Afr Amer 81 mL/min (>60); Glucose 120 mg/dL (74-106); Sodium Level 140 mmol/L (136-145)
[2020-03-27 08:05] LABS: Myoglobin, Serum 45 ng/mL (28-72)
== END ==
PROVIDERS: PCP Family Medicine Geriatric Medicine; Visit Provider Family Medicine Geriatric Medicine
DX: I48.91 Unspecified atrial fibrillation (principal); R07.9 Chest pain, unspecified
CPT/HCPCS: 36415; 80048; 82550; 83874; 84484; 85025

== ENCOUNTER → 2020-03-31 13:28 | Outpatient (CLI) | payer MEDICARE, SELFPAY ==
[2020-03-31 08:19] VITALS: BMI 40.2
--- NOTE | 2020-03-31 13:31 | ECHOCS_ITS ---
Reason For Study: AFIB Procedure This was a 2D Doppler, Color Flow transthoracic echocardiogram. The study was technically difficult. Exam performed in department. Left Ventricle Normal LV size. Left ventricular systolic function is normal. The estimated ejection fraction is 60 %. No regional wall motion abnormalities noted. Right Ventricle Normal RV size. Normal systolic function. Atria Normal left atrium. Mitral Valve Normal mitral valve. Tricuspid Valve Normal tricuspid valve. Aortic Valve The aortic valve is not well visualized. Mild (1+) eccentric aortic valve insufficiency. Pulmonic Valve Normal pulmonic valve. Great Vessels Mildly dilated aortic root. The pulmonary artery is normal size. Normal inferior vena cava. Pericardium/Pleural No pericardial effusion. Medication 22 gauge I.V. with prn adaptor inserted into right arm. Diluted definity 4ml given slow IV push to enhance endocardial definition. MMode/2D Measurements & Calculations RVDd: 3.0 cm Ao root diam: 3.4 cm LAV(MOD-bp): 43.2 ml LAV(MOD-bp) Indexed: 19.6 ml/m2 LAV(MOD-sp2): 44.4 ml LAV(MOD-sp4): 41.7 ml SV(MOD-sp4): 71.6 ml SV(sp4-el): 75.1 ml LVAd ap4: 32.2 cm2 EDV(MOD-sp4): 113.2 ml EDV(sp4-el): 118.2 ml LVAs ap4: 17.6 cm2 ESV(MOD-sp4): 41.6 ml ESV(sp4-el): 43.1 ml EF(MOD-sp4): 63.2 % EF(sp4-el): 63.5 % LA dimension(2D): 4.1 cm LA A4 area: 16.6 cm2 RA A4 area: 14.3 cm2 Doppler Measurements & Calculations MV E max mary: 116.0 cm/sec Ao V2 max: 185.7 cm/sec AI max mary: 419.8 cm/sec Ao max P.9 mmHg AI max P.5 mmHg AI dec slope: 152.5 cm/sec2 AI P1/2t: 806.4 msec LV V1 max: 116.2 cm/sec PA V2 max: 75.3 cm/sec TR max mary: 273.9 cm/sec LV V1 max P.4 mmHg TR max P.0 mmHg Interpretation Summary Normal LV size. Left ventricular systolic function is normal. The estimated ejection fraction is 60 %. Mild (1+) eccentric aortic valve insufficiency. Mildly dilated aortic root. Contrast injection was performed. Ordering Physician: Low Zheng Referring Physician: Low Zheng Chi Performed By: Samantha Downey RDCS
== END ==
PROVIDERS: PCP Family Medicine Geriatric Medicine; Referring Provider Family Medicine Geriatric Medicine; Visit Provider Family Medicine Geriatric Medicine
DX: I48.0 Paroxysmal atrial fibrillation (principal)
CPT/HCPCS: 93306; Q9957; A4216; C8929

== ENCOUNTER → 2020-04-07 13:36 | Outpatient (CLI) | payer MEDICARE, SELFPAY ==
[2020-03-31 08:19] VITALS: BMI 40.2
== END ==
PROVIDERS: PCP Family Medicine Geriatric Medicine; Referring Provider Internal Medicine Cardiovascular Disease; Visit Provider Internal Medicine Cardiovascular Disease
DX: I48.91 Unspecified atrial fibrillation (principal)
CPT/HCPCS: 93225; 93226

== ENCOUNTER → 2020-04-16 12:03 | Outpatient (CLI) | payer MEDICARE, SELFPAY ==
[2020-03-31 08:19] VITALS: BMI 40.2
== END ==
PROVIDERS: PCP Family Medicine Geriatric Medicine; Referring Provider Family Medicine Geriatric Medicine; Visit Provider Family Medicine Geriatric Medicine
DX: N39.0 Urinary tract infection, site not specified (principal)
CPT/HCPCS: 87077; 87086; 87088; 87186

== ENCOUNTER → 2020-05-03 06:42 | Outpatient (CLI) | payer MEDICARE, SELFPAY ==
[2020-03-31 08:19] VITALS: BMI 40.2
--- NOTE | 2020-05-03 09:40 | STRESSREP ---
Stress Test Report Pharmacologic myocardial perfusion stress test. 69-year-old man with a history of known coronary artery disease status post angioplasty and stenting of the obtuse marginal branch. Stress protocol: Resting EKG demonstrates resting blood pressure is 122/62 mmHg. 0.4 mg of regadenoson was infused per usual protocol followed by rapid intravenous saline flush injection continuous EKG monitoring was performed. The maximum heart rate attained was 104 bpm which was 69% of max impacted heart rate the maximum workload was 1 metabolic equivalent. At rest there were no ST or T wave changes noted to suggest abnormal flow reserve at peak infusion nonspecific ST changes were noted. No clinical angina was noted. Myocardial perfusion protocol. 14.2 mCi of technetium 99m sestamibi was injected at rest. 0.4 mg of regadenoson was infused per usual protocol. At peak infusion 45.0 mCi of technetium 99m sestamibi was injected stress images were obtained stress and rest images were reconstructed and compared in the short axis vertical long horizontal long axis. Gated images were also obtained Perfusion SPECT analysis: Review of the stress images demonstrate normal uptake of tracer noted in all areas of the myocardium the resting images similar demonstrate normal uptake of tracer noted in all areas of the myocardium. No areas of reversibility noted suggest ischemia no previous infarct is noted. Gated SPECT analysis: The gated ejection fraction is 71%. Conclusion: Normal pharmacologic myocardial perfusion stress test. Preserved ejection fraction Atrial fibrillation.
== END ==
PROVIDERS: PCP Family Medicine Geriatric Medicine; Referring Provider Internal Medicine Cardiovascular Disease; Visit Provider Internal Medicine Cardiovascular Disease
DX: I48.91 Unspecified atrial fibrillation (principal); I25.10 Atherosclerotic heart disease of native coronary artery without angina pectoris
CPT/HCPCS: 78452; 93017; A9500; A4216; J2785

== ENCOUNTER → 2020-07-07 13:11 | Outpatient (CLI) | payer MEDICARE, SELFPAY ==
[2020-03-31 08:19] VITALS: BMI 40.2
[2020-07-07 17:27] LABS: Absolute Lymphocyte Count 0.98 X10^3/uL (0.83-4.51); Basophil# 0.03 X10^3/uL; Basophil% 0.3 % (0-1); Eosinophil# 0.16 X10^3/uL; Eosinophils% 1.6 % (0-5); Hematocrit 50.6 % (40-54); Hemoglobin 16.5 g/dL (13.0-16.5); Lymphocyte # 0.98 X10^3/ul (4.0); Lymphocyte % 9.9 % (19-41); Mean Corp Hgb Conc 32.6 g/dL (32-36); Mean Corpuscular Hgb 29.8 pg (27.0-32.0); Mean Corpuscular Volume 91.3 fL (80-94); Mean Platelet Vol. 10.2 fl (6.2-12.0); Monocyte# 0.71 X10^3/uL; Monocyte% 7.2 % (0-10); NRBC Flagged by Analyzer 0 % (0-5); Neutrophil # 8.01 X10^3/uL (2.7-7.7); Neutrophil % 80.6 % (47-70); Platelet Count 250 K/mm3 (150-450); RBC Distribution Width CV 13.7 % (11.6-14.6); Red Blood Count 5.54 M/mm3 (4.6-6.2); White Blood Count 9.9 K/mm3 (4.4-11.0)
[2020-07-07 17:45] LABS: Vitamin D,25 Hydroxy 12.8 ng/mL
[2020-07-07 17:51] LABS: ALB/GLOB Ratio 0.9 RATIO (0.9-2.4); AST(SGOT) 16 U/L (15-37); Alanine Aminotransfer ALT/SGPT 28 U/L (16-61); Albumin, Serum 3.5 g/dL (3.2-5.0); Alkaline Phosphatase 89 U/L (45-117); Anion Gap 7 (5-15); BUN 14 mg/dL (7-18); Calcium,Total 8.6 mg/dL (8.5-10.1); Chloride 105 mmol/L (98-107); Creatinine, Serum 1.17 mg/dL (0.70-1.30); EST Glomerular Filtration Rate 65 mL/min (>60); Est Glom Filt Rate - Afr Amer 79 mL/min (>60); Globulin 3.9 g/dL (2.2-4.2); Glucose 104 mg/dL (74-106); PSA,Total - Annual Screen 1.62 ng/mL (0.00-4.00); Potassium 3.7 mmol/L (3.5-5.1); Protein, Total 7.4 g/dL (6.4-8.2); Sodium Level 139 mmol/L (136-145); Thyroid Stim Hormone (TSH) 1.85 uIU/mL (0.358-3.74)
== END ==
PROVIDERS: PCP Family Medicine Geriatric Medicine; Visit Provider Family Medicine Geriatric Medicine
DX: I10 Essential (primary) hypertension (principal); E55.9 Vitamin D deficiency, unspecified; Z12.5 Encounter for screening for malignant neoplasm of prostate
CPT/HCPCS: 36415; 80053; 82306; 84153; 84443; 85025; G0103

== ENCOUNTER → 2021-03-09 14:13 | Outpatient (CLI) | payer MEDICARE, SELFPAY ==
--- NOTE | 2021-03-09 15:21 | RAD_ITS ---
History: [facility]AT[facility] Lumbar spine 3 views: Findings: No fracture or subluxation. Mild vertebral body osteophytosis. No significant disc space narrowing. Pedicles and posterior elements appear intact. IMPRESSION: No acute abnormality. Mild osteophytosis. at 1623 Reported and signed by: Noah Deluna MD Electronically Signed: Noah Deluna MD at 16:21 EST Tel , Service support , RAD/Lumbar Spine 2 or 3 Views
[2021-03-09 17:22] LABS: Absolute Lymphocyte Count 1.19 X10^3/uL (0.83-4.51); Absolute Neutrophil Count 6.1 X10^3/uL (2.0-7.7); Basophil# 0.03 X10^3/uL; Basophil% 0.4 % (0-1); Eosinophils% 2.4 % (0-5); Hematocrit 50.8 % (40-54); Hemoglobin 16.7 g/dL (13.0-16.5); Lymphocyte # 1.19 X10^3/ul (0.83-4.51); Lymphocyte % 14.4 % (19-41); Mean Corp Hgb Conc 32.9 g/dL (32-36); Mean Corpuscular Hgb 29.8 pg (27.0-32.0); Mean Corpuscular Volume 90.7 fL (80-94); Mean Platelet Vol. 10.3 fl (6.2-12.0); Monocyte# 0.67 X10^3/uL; Monocyte% 8.1 % (0-10); NRBC Flagged by Analyzer 0 % (0-5); Neutrophil # 6.14 X10^3/uL (2.7-7.7); Neutrophil % 74.3 % (47-70); Platelet Count 226 K/mm3 (150-450); RBC Distribution Width CV 14.1 % (11.6-14.6); White Blood Count 8.3 K/mm3 (4.4-11.0)
[2021-03-09 17:45] LABS: ALB/GLOB Ratio 0.7 RATIO (0.9-2.4); AST(SGOT) 20 U/L (15-37); Alanine Aminotransfer ALT/SGPT 32 U/L (16-61); Albumin, Serum 3.2 g/dL (3.2-5.0); Alkaline Phosphatase 100 U/L (45-117); Anion Gap 4 (5-15); BUN 13 mg/dL (7-18); BUN/Creat Ratio 11.6 RATIO (10-20); Calcium,Total 8.5 mg/dL (8.5-10.1); Chloride 104 mmol/L (98-107); Creatinine, Serum 1.12 mg/dL (0.70-1.30); EST Glomerular Filtration Rate 69 mL/min (>60); Est Glom Filt Rate - Afr Amer 83 mL/min (>60); Globulin 4.5 g/dL (2.2-4.2); Glucose 94 mg/dL (74-106); Potassium 3.8 mmol/L (3.5-5.1); Protein, Total 7.7 g/dL (6.4-8.2); Sodium Level 137 mmol/L (136-145); Thyroid Stim Hormone (TSH) 2.06 uIU/mL (0.358-3.74)
[2021-03-10 09:12] LABS: Vitamin D,25 Hydroxy 14.6 ng/mL
== END ==
LOC: POLAB3 14:14 → RAD 15:19
PROVIDERS: PCP Family Medicine Geriatric Medicine; Referring Provider Family Medicine Geriatric Medicine; Visit Provider Family Medicine Geriatric Medicine
DX: E55.9 Vitamin D deficiency, unspecified (principal); I10 Essential (primary) hypertension; M54.30 Sciatica, unspecified side
CPT/HCPCS: 36415; 72100; 80053; 82306; 84443; 85025

== ENCOUNTER → 2021-04-13 16:34 | Outpatient (CLI) | payer MEDICARE, SELFPAY ==
--- NOTE | 2021-04-13 16:45 | RAD_ITS ---
STUDY: X-RAY - RIGHT SHOULDER REASON FOR EXAM: Male, 70 years old. [employer] TECHNIQUE: 4 view(s) of the shoulder. COMPARISON: Chest x-ray dated March 17, 2014 FINDINGS: There is mild degenerative arthrosis of the glenohumeral articulation. There is mild degenerative arthrosis of the acromioclavicular joint without inferior osseous spur formation. Normal acromion. Normal humeral head and visualized proximal humerus. The soft tissue structures are unremarkable. There is no demonstrated fracture. Normal visualized pulmonary apex. Cervical spine hardware noted. RAD/Shoulder min 2 Views IMPRESSION: Mild joint space narrowing Electronically Signed: Victor Hugo Juarez MD at 18:37 EST , Service support ,
== END ==
PROVIDERS: PCP Family Medicine Geriatric Medicine; Referring Provider Family Medicine Geriatric Medicine; Visit Provider Family Medicine Geriatric Medicine
DX: M75.50 Bursitis of unspecified shoulder (principal)
CPT/HCPCS: 73030

== ENCOUNTER 2021-04-21 14:57 | Outpatient (RCR) | payer MEDICARE, SELFPAY ==
[2021-04-21 15:34] VITALS: BP 157/89; PULSE 50; RESP 18; TEMP 36.1; BMI 38.7
--- NOTE | 2021-04-21 16:11 | PCM.WC.HP ---
History of Present Illness Date of Service: 04/21/21 Chief Complaint: left great toe wound History of Wound: This is a 70-year-old male who presents to the wound healing center today with complaint of nonhealing wound to left great toe. He has a past medical history as listed above, PVD, CAD, and hyperlipidemia. The patient states that approximately 2 weeks ago he must of bumped his left great toe on something and developed a scabbed area shortly afterwards. He followed up with his primary care who apparently placed him on an antibiotic which she is almost completed. He states that it has not healed much and that at times it continues to be painful. He denies any drainage and denies any systemic or localized signs of infection at this time. Denies any other acute concerns. Past medical, family, and social history reviewed and not pertinent to the current visit and all other systems reviewed and negative with exception of those listed above. 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, nasal cavity and accessory sinuses BPH (benign prostatic hyperplasia) Cardiac murmur, unspecified Cervical disc disease Dyspnea on minimal exertion Essential (primary) hypertension Former smoker GERD (gastroesophageal reflux disease) Hyperlipidemia New onset atrial fibrillation (03/24/20) Obesity ANDREE (obstructive sleep apnea) Pain of left lower extremity due to injury Skin ulcer of left great toe with fat layer exposed Traumatic hematoma of left lower leg Home Medications atenolol 50 mg PO DAILY 08/23/14 [History Last Taken 11/01/18 08:30] acetaminophen 500 mg PO Q4H PRN PRN tab 07/26/18 [Rx Last Taken 07/28/18] lisinopril 10 mg tablet 10 mg PO QHS #90 tab 03/31/20 [Rx Last Taken Unknown] Allergy/AdvReac Type Severity Reaction Status Date / Time apixaban [From Eliquis] AdvReac Intermediate Wet the Verified 04/29/20 09:40 bed: found out later had UTI ibuprofen [From Motrin] AdvReac Nausea Verified 03/31/20 08:19 Family History Mother CAD (coronary artery disease) Hypertension History of cardiac radiofrequency ablation Sister Hypertension Other Arthritis Surgical History H/O cervical spine surgery History of bursectomy History of carpal tunnel release History of carpal tunnel surgery History of coronary artery stent placement (11/29/10) History of fusion of cervical spine History of herniorrhaphy History of removal of cyst History of transurethral resection of prostate Social History Smoking Status: Former smoker alcohol intake: current details: occasional substance use type: does not use additional social history: DOES NOT TAKE ASPIRIN DOES NOT TAKE IBUPROFEN ROS ROS Narrative Negative x10 systems with exception of those listed above Vital Signs Vital Signs Vital Signs: 04/21/21 15:34 Temperature 97 F L Temperature Source Temporal Pulse Rate 50 L Respiratory Rate 18 Blood Pressure 157/89 H Blood Pressure Mean 111 Blood Pressure Source Monitor Blood Pressure Position Semi-Fowlers Blood Pressure Location Left Arm Weight Weight: 240 lb Body Mass Index (BMI) 38.7 Physical Exam Const alert, oriented x3, no apparent distress, healthy appearing and well nourished General Appearance: cooperative Exam Limitations: no limitations Eyes General Eye: normal appearance of both eyes Resp normal respiratory effort, normal air movement and no use of accessory muscles Effort and Inspection: able to speak in complete sentences Auscultation: clear to auscultation bilaterally Cardio regular rate, regular rhythm, S1 normal heart sound, S2 normal heart sound, no murmurs and peripheral pulses 2+ throughout Palpation: normal PMI Rate: regular rate Heart Sounds: S1 normal and S2 normal Peripheral Pulses: pulses 2+ throughout GI normal to inspection, nondistended, normoactive bowel sounds, soft to palpation, non-tender and non-distended Palpation: soft Extremity normal to inspection and full ROM General Extremity: normal exam except as noted Skin Skin Narrative: Nonhealing ulcer to the left great toe on the dorsal aspect with eschar and adherent slough, no fluctuance or drainage at this time. Site is somewhat tender and patient did not tolerate debridement well, no streaking or warmth Neuro oriented x3 and moves all extremities Sensorium / Orientation: awake, alert, oriented to person, oriented to place and oriented to time Psych mental status grossly normal, thought process normal and denies hallucinations Appearance: grossly normal Attitude: calm Activity / Motor Behavior: appropriate eye contact Speech: normal speech Thought Process: normal thought process Thought Content: normal thought content Attention / Concentration: attention grossly intact Insight: insight good Judgement: judgement good Debridement Note Debridement Note Wound debrided: Left great toe ulceration Laterality: Left Type of Debridement: Excisional debridement Anesthesia Used: 5% Lidocaine Gel Depth: in the subcutaneous layer Percentage of wound debrided: 50 Instrument Used: 3mm curette Tissue Removed: Slough and devitalized tissue Severity: Fat Layer Exposed Amount of bleeding with debridement: Mild Bleeding Controlled with: Pressure Patient tolerated procedure: Patient tolerated procedure well Post-Debridement Measurements and Additional Note: Post-Debridement Measurements/Treatment BOZENA - Nurse 1 - General Ulcer Assessment Start: 04/21/21 15:31 Freq: Status: Active Protocol: AUTUMN Activity Type Activity Date Activity User E-Sign Co-Sign Detail Recorded Client Recorded Date Recorded By Document 04/21/21 15:34 RB [id number] 04/21/21 15:45 RB Edit Result 04/21/21 15:34 RB (1) [id number] 04/21/21 16:01 RB (1) Right - Posterior Tibial Palpable => Yes - Posterior Tibial Doppler => Multiphasic - Dorsalis Pedis Palpable => Yes - Dorsalis Pedis Doppler => Multiphasic - Extremity Color => Hyperpigmented - Hair Growth on Legs => No - Hair Growth on Toes => No - Temperature of Extremity => Cool - Capillary Refill => Less than 3 => Seconds - Dependent Rubor => No - Blanched when Elevated => No - Lipodermatosclerosis => No - Other Deformity => No - Prior Foot Ulcer => No - Charcot Joint => No - Prior Amputation => No - Toe Nail Assessment => Not Applicable Left - Posterior Tibial Palpable => Yes - Posterior Tibial Doppler => Multiphasic - Dorsalis Pedis Palpable => Yes - Dorsalis Pedis Doppler => Multiphasic - Extremity Color => Hyperpigmented - Hair Growth on Legs => No - Hair Growth on Toes => No - Temperature of Extremity => Cool - Capillary Refill => Less than 3 => Seconds - Dependent Rubor => No - Blanched when Elevated => No - Lipodermatosclerosis => No - Other Deformity => No - Prior Foot Ulcer => No - Charcot Joint => No - Prior Amputation => No - Toe Nail Assessment => Not Applicable Feet - Top Side and Bottom => <Entered> (a) Preferred language => [place] Spa Manager Required => No Able to Read => Yes Able to Write => Yes Communication Tools => None Right Hearing Abillity => Normal Left Hearing Abillity => Normal Visual Assistive Devices => Glasses Preferences => Verbal,Written, => Audio/Visual Barriers to Learning => None Readiness To Learn => Good Willingness to Engage in Self Management => Med Activies Readiness to Engage in Self Management => Med Activities Anxiety Level => Calm Cooperation => Cooperative Perception => Coherent Interest in Health Problem => Uninterested Education Importance => Acknowledges Need Does Patient Smoke tobacco or other => No substances Smoking Status => Former smoker Is Patient Diabetic => No Recent Decline in Ability to Perform => Transferring Assistive Device With Patient => No Cultural/Roman Catholic Needs that may affect => No Treatment Plan Would you allow our hospital risk consultant to => No meet you for the purpose of spiritual/ emotional support? International First Officer to contact place of samaritan => No *Welcome to the Wound Center - Person Taught => Patient,Family - Teaching Method => Discussion - Response to teaching => Verbalize => understanding 04/21/21 15:34 WC - Today's Visit Information Type of service Initial Visit Arrival Mode Ambulatory,Cane Transfer Assistance None Patient Identification Verified (Name & Yes ) Height and Weight Height 5 ft 6 in Weight 240 lb Weight in Pounds 240.0 lbs Body Mass Index (BMI) 38.7 BMI Classification Obese BSA - Tylor 2.16 Vital Signs Temperature (97.8 F-99.1 F) 97 F L Temperature Source Temporal Pulse Rate (60-100) 50 L Pulse Location Monitor Respiratory Rate (12-18) 18 Respiratory rate source Observation Blood Pressure (90/60-120/80) 157/89 H Blood Pressure Mean 111 Source Monitor Position Semi-Fowlers Blood Pressure Location Left Arm History Since Last Visit- (Skip if this is Patient's initial visit) Have you changed medications since your No last visit? Any new allergies or adverse reactions No Had a fall/change in ADL's that may No increase risk of falls Signs or symptoms of abuse and/or No neglect since last visit Have you been in the hospital since your No last visit? Has dressing in place as prescribed Yes Has compression in place as prescribed No Has offloadiing in place as prescribed No Experienced any changes in pain level or No management Lower Extremity Assessment/ Foot Assessment/ Toe Nail Assessment Right -Posterior Tibial Palpable Yes -Posterior Tibial Doppler Multiphasic -Dorsalis Pedis Palpable Yes -Dorsalis Pedis Doppler Multiphasic -Extremity Color Hyperpigmented -Hair Growth on Legs No -Hair Growth on Toes No -Temperature of Extremity Cool -Capillary Refill Less than 3 Seconds -Dependent Rubor No -Blanched when Elevated No -Lipodermatosclerosis No -Other Deformity No -Prior Foot Ulcer No -Charcot Joint No -Prior Amputation No -Toe Nail Assessment Not Applicable Left -Posterior Tibial Palpable Yes -Posterior Tibial Doppler Multiphasic -Dorsalis Pedis Palpable Yes -Dorsalis Pedis Doppler Multiphasic -Extremity Color Hyperpigmented -Hair Growth on Legs No -Hair Growth on Toes No -Temperature of Extremity Cool -Capillary Refill Less than 3 Seconds -Dependent Rubor No -Blanched when Elevated No -Lipodermatosclerosis No -Other Deformity No -Prior Foot Ulcer No -Charcot Joint No -Prior Amputation No -Toe Nail Assessment Not Applicable Neuropathy Assessment Feet - Top Side and Bottom <Entered> (a) Communication Assessment Preferred language [place] Spa Manager Required No Able to Read Yes Able to Write Yes Communication Tools None Right Hearing Abillity Normal Left Hearing Abillity Normal Visual Assistive Devices Glasses Teaching Assessment Preferences Verbal,Written, Audio/Visual Barriers to Learning None Readiness To Learn Good Willingness to Engage in Self Management Med Activies Readiness to Engage in Self Management Med Activities Anxiety Level Calm Cooperation Cooperative Perception Coherent Interest in Health Problem Uninterested Education Importance Acknowledges Need Does Patient Smoke tobacco or other No substances Smoking Status Former smoker Is Patient Diabetic No Functional Assessment Recent Decline in Ability to Perform Transferring Assistive Device With Patient No Culture/Roman Catholic/International First Officer Cultural/Roman Catholic Needs that may affect No Treatment Plan Would you allow our hospital risk consultant to No meet you for the purpose of spiritual/ emotional support? International First Officer to contact place of samaritan No Teaching: Wound Center *Welcome to the Wound Center -Person Taught Patient,Family -Teaching Method Discussion -Response to teaching Verbalize understanding (a) 1 - + throughout WC - Nurse 1 - General Ulcer Measurement Start: 04/21/21 15:31 Freq: Status: Active Protocol: Activity Type Activity Date Activity User E-Sign Co-Sign Detail Recorded Client Recorded Date Recorded By Document 04/21/21 15:34 RB [id number] 04/21/21 15:45 RB 04/21/21 15:34 Wound Center Nurse 1 1. L hallux dorsal -Combined with other wound No -Current Size (cm) - Length 0.8 -Current Size (cm) - Width 1.4 -Current Size (cm) - Depth 0.2 -Total Square Cm 1.12 -Tunneling No -Undermining/Tunneling No -Circular Undermining No -Exudate Amt Small -Exudate Type Serosanguineous -Wound Margin Flat & Intact -Granulation Amt None Present (0 %) -Slough/Fibrin Yes -Necrosis Amt Large (67-100%) -Necrotic Tissue Type Adherent Slough -Structure Exposed N/A -Texture (Veronica-wound Skin Appearance) Assessed -Moisture (Veronica-wound Skin Appearance) Assessed -Color (Veronica-wound Skin Appearance) Assessed -Temperature (Veronica-wound Skin No Abnormality Appearance) (Pt Warm) -Tenderness on Palpation (Veronica-wound No Skin Appearance) -Ulcer Cleansing Rinsed/ Irrigated with Saline -Foul Odor after Cleansing Yes -Anesthetic Used 4% Lidocaine Solution Lower Limb Edema Present Yes Right Calf (cm) 43 Right Ankle (cm) 31.4 Left Calf (cm) 41.5 Left Ankle (cm) 28.2 - Nurse 2 - General Ulcer CM Notes Start: 04/21/21 15:31 Freq: Status: Active Protocol: Activity Type Activity Date Activity User E-Sign Co-Sign Detail Recorded Client Recorded Date Recorded By Document 04/21/21 16:02 MW [id number] 04/21/21 16:08 MW 04/21/21 16:02 Wound Center Nurse 2 1. L hallux dorsal -Time 16:03 -Correct Patient Yes -Correct Side, Site, Position Yes -Correct Procedure Yes -Procedure Performed Yes -Type of Procedure Debridement -Clinical Debridement Subcutaneous -Tissue Removed Subcutaneous -Post Debridement (cm) - Length 2.0 -Post Debridement (cm) - Width 1.0 -Post Debridement (cm) - Depth 0.1 -Total Square (Post) (cm) 2.00 -Area of Debridement (cm) - Length 2.0 -Area of Debridement (cm) - Width 1.0 -Total Square (Area) (cm) 2.00 -Tunneling No -Undermining/Tunneling No -Circular Undermining No -Wound/Ulcer Outcome Not Healed -Ulcer Cleansing Rinsed/ Irrigated with Saline -Foul Odor after Cleansing No -Bioengineered Tissue No -Bleeding Controlled with Pressure -Offloading No -Treatment Response Procedure Tolerated Well -Debridement - Subq, 1st 20sq cm Yes Pain Scale: 0-10 Numeric Is Patient Pain Free? Yes Charges/Coding Visit Charges Office Visits / Consults: 30646 OV L3 Est Procedures Integumentary [id number]: [id number] Christine subq tissue 20 sq cm/< Assessment/Plan Assessment/Plan (1) Skin ulcer of left great toe with fat layer exposed: CODE(S): L97.522 - Non-pressure chronic ulcer of other part of left foot with fat layer exposed (2) New onset atrial fibrillation: CODE(S): I48.91 - Unspecified atrial fibrillation (3) Atherosclerotic heart disease of [place] coronary artery without angina pectoris: CODE(S): I25.10 - Atherosclerotic heart disease of [place] coronary artery without angina pectoris (4) Essential (primary) hypertension: CODE(S): I10 - Essential (primary) hypertension (5) Hyperlipidemia: CODE(S): E78.5 - Hyperlipidemia, unspecified PLAN: Debridement performed today in clinic as annotated above. Hydrogel Adaptic gauze applied. At home wound-care instructions: Daily application of Santyl, Adaptic, and gauze Change dressing once daily or more frequently as needed due to contamination. Wash wounds daily with antibacterial soap and water, rinse and dry thoroughly before each dressing change. Compression: Not indicated Off-loading: The patient was instructed to avoid pressure and friction on the affected areas. Reposition every 2 hours at minimum. Avoid prolonged standing and/or dangling of legs. When seated, feet should be elevated at chest level. Frequent ambulation is encouraged. Diet: Patient encouraged to increase protein intake while taking caution to avoid high carbohydrate and/or sugar intake. Patient is a non-smoker Labs/cultures/imaging: Cultures held today. Routine baseline lab work held. Vascular studies held. Instructed patient to take Tylenol prior to procedure next week so that he can tolerate better Follow-up: Return to clinic in 1 week for re-evaluation. Return sooner or report to the emergency room should symptoms worsen, or new symptoms arise.
== END 2021-04-29 23:59 ==
LOC: WC 14:57
PROVIDERS: PCP Family Medicine Geriatric Medicine; Visit Provider Nurse Practitioner Family
DX: L97.522 Non-pressure chronic ulcer of other part of left foot with fat layer exposed (principal); I48.91 Unspecified atrial fibrillation; I25.10 Atherosclerotic heart disease of native coronary artery without angina pectoris; I10 Essential (primary) hypertension; E78.5 Hyperlipidemia, unspecified; Z87.891 Personal history of nicotine dependence; E66.9 Obesity, unspecified; G47.33 Obstructive sleep apnea (adult) (pediatric); K21.9 Gastro-esophageal reflux disease without esophagitis; M19.90 Unspecified osteoarthritis, unspecified site; Z79.01 Long term (current) use of anticoagulants; Z79.1 Long term (current) use of non-steroidal anti-inflammatories (NSAID); Z68.38 Body mass index [BMI] 38.0-38.9, adult
CPT/HCPCS: 11042; 99203; G0463

== ENCOUNTER 2021-06-16 11:00 | Outpatient (RCR) | payer MEDICARE, SELFPAY ==
[2021-04-30 00:06] VITALS: BP 157/89; PULSE 50; RESP 18; TEMP 36.1; BMI 38.7
[2021-06-07 10:04] VITALS: BP 163/115; PULSE 85; RESP 18; TEMP 36.4; BMI 38.7
--- NOTE | 2021-06-07 10:56 | PCM.WC.HP ---
History of Present Illness Date of Service: 06/07/21 Chief Complaint: left great toe wound History of Wound: This is a 70-year-old male who presents to the wound healing center today with complaint of nonhealing wound to left great toe. He has a past medical history as listed above, PVD, CAD, and hyperlipidemia. The patient states that approximately 2 weeks ago he must of bumped his left great toe on something and developed a scabbed area shortly afterwards. He followed up with his primary care who apparently placed him on an antibiotic which she is almost completed. He states that it has not healed much and that at times it continues to be painful. He denies any drainage and denies any systemic or localized signs of infection at this time. Denies any other acute concerns. Past medical, family, and social history reviewed and not pertinent to the current visit and all other systems reviewed and negative with exception of those listed above. Patient has additional wound to right posterior lateral lower extremity. Patient notes significant edema relates that his leg swelling 4 times its normal size. He notes pain and discomfort to that side. He denies any chest pain or shortness of breath at current he denies any constitutional symptoms. [facility] Medical History (Updated 06/07/21 @ 11:[address] 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, nasal cavity and accessory sinuses BPH (benign prostatic hyperplasia) Cardiac murmur, unspecified Cervical disc disease Dyspnea on minimal exertion Essential (primary) hypertension Former smoker GERD (gastroesophageal reflux disease) Hyperlipidemia New onset atrial fibrillation (03/24/20) Obesity ANDREE (obstructive sleep apnea) Pain of left lower extremity due to injury Skin ulcer of left great toe with fat layer exposed Traumatic hematoma of left lower leg Home Medications atenolol 50 mg PO DAILY 08/23/14 [History Last Taken 11/01/18 08:30] acetaminophen 500 mg PO Q4H PRN PRN tab 07/26/18 [Rx Last Taken 07/28/18] lisinopril 10 mg tablet 10 mg PO QHS #90 tab 03/31/20 [Rx Last Taken Unknown] rivaroxaban [Xarelto] 20 mg PO DAILY 06/07/21 [History Last Taken Unknown] Allergy/AdvReac Type Severity Reaction Status Date / Time apixaban [From Eliquis] AdvReac Intermediate Wet the Verified 06/07/21 10:25 bed: found out later had UTI ibuprofen [From Motrin] AdvReac Nausea Verified 06/07/21 10:25 Family History Mother CAD (coronary artery disease) Hypertension History of cardiac radiofrequency ablation Sister Hypertension Other Arthritis Surgical History H/O cervical spine surgery History of bursectomy History of carpal tunnel release History of carpal tunnel surgery History of coronary artery stent placement (11/29/10) History of fusion of cervical spine History of herniorrhaphy History of removal of cyst History of transurethral resection of prostate Social History Smoking Status: Former smoker alcohol intake: current details: occasional substance use type: does not use additional social history: DOES NOT TAKE ASPIRIN DOES NOT TAKE IBUPROFEN Vital Signs Vital Signs Vital Signs: 06/07/21 10:04 Temperature 97.6 F L Temperature Source Temporal Pulse Rate 85 Respiratory Rate 18 Blood Pressure 163/115 H Blood Pressure Mean 131 Blood Pressure Source Monitor Blood Pressure Position Sitting Blood Pressure Location Left Arm Weight Weight: 108.862 kg Body Mass Index (BMI) 38.7 Physical Exam Narrative Patient alert oriented to person place and time. Vascular: There is noted to be atrophic skin changes such as thinning, taut shiny appearance. Absent digital hair growth. Diffuse hemosiderin deposits noted bilaterally. Patient has +4 pitting edema to right lower extremity +1 on the left side. Patient has significant calf pain upon palpation and squeeze to the right lower extremity. Neurologic: Light touch protective sensation intact bilateral feet. No evidence of clonus or Babinski at this time. Dermatologic: Multiple focal ulcerations noted to the posterior lateral right leg likely related to chronic venous insufficiency. These wounds appear devoid of any signs of infection including deep probing purulence focal increase in warmth. There is significant edema and tenderness to the periwound areas. These wounds demonstrate severe serous drainage with maceration to the periwound areas. Full-thickness ulceration to dorsal left hallux and plantar left hallux. Predebridement measurements and postoperative measurements documented in nursing chart for both wounds. The left hallux wounds demonstrate necrotic base predebridement with a mildly bleeding granular base post debridement. The periwound areas are devoid of any signs of infection there is no evidence of deep probing. Musculoskeletal: No gross deformities noted bilateral lower extremity, muscular strength 4-5 bilateral lower extremity compartments. There is noted to be hallux limitus to the left foot potentially contributing to the patient's wound formation. There is significant pain with right calf squeeze. Debridement Note Debridement Note Post-Debridement Measurements and Additional Note: Post-Debridement Measurements/Treatment - Nurse 1 - General Ulcer Assessment Start: 06/07/21 10:04 Freq: Status: Active Protocol: AUTUMN Activity Type Activity Date Activity User E-Sign Co-Sign Detail Recorded Client Recorded Date Recorded By Document 06/07/21 10:04 MW [id number] 06/07/21 10:25 MW 06/07/21 10:04 - Today's Visit Information Type of service Initial Visit Arrival Mode Ambulatory Transfer Assistance None Patient Identification Verified (Name & Yes ) Patient Requires Transmission-Based No Precautions Height and Weight Body Mass Index (BMI) 38.7 BMI Classification Obese Vital Signs Temperature (97.8 F-99.1 F) 97.6 F L Temperature Source Temporal Pulse Rate (60-100) 85 Pulse Location Monitor Respiratory Rate (12-18) 18 Respiratory rate source Observation Blood Pressure (90/60-120/80) 163/115 H Blood Pressure Mean 131 Source Monitor Position Sitting Blood Pressure Location Left Arm Comment PT ANXIOUS. WILL RECHK PRIOR TO LEAVING History Since Last Visit- (Skip if this is Patient's initial visit) Left Footwear Regular Shoe Right Footwear Regular Shoe Pain Scale: 0-10 Numeric Is Patient Pain Free? Yes - Nurse 1 - General Ulcer Measurement Start: 06/07/21 10:04 Freq: Status: Active Protocol: Activity Type Activity Date Activity User E-Sign Co-Sign Detail Recorded Client Recorded Date Recorded By Document 06/07/21 10:04 MW [id number] 06/07/21 10:25 MW 06/07/21 10:04 Wound Center Nurse 1 #4- L HALLUX PLANTAR -Combined with other wound No -Current Size (cm) - Length 0.6 -Current Size (cm) - Width 0.5 -Current Size (cm) - Depth 0.1 -Total Square Cm 0.30 -Date of Last Picture (Recall this 06/07/21 field) -Photo Taken Yes -Epithelialization None Present -Tunneling No -Undermining/Tunneling No -Circular Undermining No -Exudate Amt Medium -Exudate Type Serosanguineous -Wound Margin Distinct, Outline Attached -Granulation Amt Large (67-100%) -Granulation Quality Red -Slough/Fibrin Yes -Necrosis Amt Small (1-33%) -Necrotic Tissue Type Adherent Slough -Texture (Veronica-wound Skin Appearance) Assessed,Callus -Moisture (Veronica-wound Skin Appearance) Assessed,Dry/ Scaly -Color (Veronica-wound Skin Appearance) Assessed -Temperature (Veronica-wound Skin No Abnormality Appearance) (Pt Warm) -Tenderness on Palpation (Veronica-wound Yes Skin Appearance) -Ulcer Cleansing Soap and Water -Foul Odor after Cleansing No -Anesthetic Used 5% Lidocaine Gel #3- R LAT LE CLUSTER -Combined with other wound No -Current Size (cm) - Length 9.5 -Current Size (cm) - Width 6.4 -Current Size (cm) - Depth 0.1 -Total Square Cm 60.80 -Date of Last Picture (Recall this 06/07/21 field) -Photo Taken Yes -Epithelialization None Present -Tunneling No -Undermining/Tunneling No -Circular Undermining No -Exudate Amt Large -Exudate Type Serosanguineous -Wound Margin Distinct, Outline Attached -Granulation Amt Small (1-33%) -Granulation Quality Red -Slough/Fibrin Yes -Necrosis Amt Large (67-100%) -Necrotic Tissue Type Adherent Slough -Texture (Veronica-wound Skin Appearance) Assessed, Scarring -Moisture (Veronica-wound Skin Appearance) Assessed, Weeping -Color (Veronica-wound Skin Appearance) Assessed, Erythema -Temperature (Veronica-wound Skin No Abnormality Appearance) (Pt Warm) -Tenderness on Palpation (Veronica-wound Yes Skin Appearance) -Ulcer Cleansing Soap and Water -Foul Odor after Cleansing No -Anesthetic Used 4% Lidocaine Solution #2 left hallux dorsal -Combined with other wound No -Current Size (cm) - Length 0.6 -Current Size (cm) - Width 1 -Current Size (cm) - Depth 0.1 -Total Square Cm 0.6 -Date of Last Picture (Recall this 06/07/21 field) -Photo Taken Yes -Epithelialization None Present -Tunneling No -Undermining/Tunneling No -Circular Undermining No -Exudate Amt Medium -Exudate Type Serosanguineous -Wound Margin Distinct, Outline Attached -Granulation Amt Small (1-33%) -Granulation Quality Red -Slough/Fibrin Yes -Necrosis Amt Large (67-100%) -Necrotic Tissue Type Adherent Slough -Texture (Veronica-wound Skin Appearance) Assessed, Scarring -Moisture (Veronica-wound Skin Appearance) Assessed -Color (Veronica-wound Skin Appearance) Assessed, Erythema -Temperature (Veronica-wound Skin No Abnormality Appearance) (Pt Warm) -Tenderness on Palpation (Veronica-wound Yes Skin Appearance) -Ulcer Cleansing Soap and Water -Foul Odor after Cleansing No -Anesthetic Used 5% Lidocaine Gel Lower Limb Edema Present Yes Right Calf (cm) 49.5 Right Ankle (cm) 32.5 Left Calf (cm) 43.8 Left Ankle (cm) 28 WC - Nurse 2 - General Ulcer CM Notes Start: 06/07/21 10:04 Freq: Status: Active Protocol: Activity Type Activity Date Activity User E-Sign Co-Sign Detail Recorded Client Recorded Date Recorded By Document 06/07/21 10:51 ALY [id number] 06/07/21 10:55 ALY 06/07/21 10:51 Wound Center Nurse 2 #4- L HALLUX PLANTAR -Time 10:52 -Correct Patient Yes -Correct Side, Site, Position Yes -Correct Procedure Yes -Procedure Performed Yes -Type of Procedure Debridement -Clinical Debridement Subcutaneous -Tissue Removed Subcutaneous -Post Debridement (cm) - Length 0.6 -Post Debridement (cm) - Width 0.6 -Post Debridement (cm) - Depth 0.1 -Total Square (Post) (cm) 0.36 -Area of Debridement (cm) - Length 0.6 -Area of Debridement (cm) - Width 0.6 -Total Square (Area) (cm) 0.36 -Tunneling No -Undermining/Tunneling No -Circular Undermining No -Wound/Ulcer Outcome Not Healed -Foul Odor after Cleansing No -Bioengineered Tissue No -Bleeding Controlled with Pressure -Offloading Yes -Type of Offloading Surgical Shoe -Treatment Response Procedure Tolerated Well -Debridement - Subq, 1st 20sq cm No #3- R LAT LE CLUSTER -Time 10:52 -Correct Patient Yes -Correct Side, Site, Position Yes -Correct Procedure Yes -Procedure Performed Yes -Type of Procedure Debridement -Clinical Debridement Subcutaneous -Tissue Removed Subcutaneous -Post Debridement (cm) - Length 9.5 -Post Debridement (cm) - Width 6.5 -Post Debridement (cm) - Depth 0.1 -Total Square (Post) (cm) 61.75 -Area of Debridement (cm) - Length 9.5 -Area of Debridement (cm) - Width 6.5 -Total Square (Area) (cm) 61.75 -Tunneling No -Undermining/Tunneling No -Circular Undermining No -Wound/Ulcer Outcome Not Healed -Ulcer Cleansing Rinsed/ Irrigated with Saline -Foul Odor after Cleansing No -Bioengineered Tissue No -Bleeding Controlled with Pressure -Offloading No -Treatment Response Procedure Tolerated Well -Debridement - Subq, 1st 20sq cm Yes -Debridement, SubQ, ea addt'l 20sq cm 3 or part thereof #2 left hallux dorsal -Time 10:54 -Correct Patient Yes -Correct Side, Site, Position Yes -Correct Procedure Yes -Procedure Performed Yes -Type of Procedure Debridement -Clinical Debridement Subcutaneous -Tissue Removed Subcutaneous -Post Debridement (cm) - Length 0.6 -Post Debridement (cm) - Width 1.1 -Post Debridement (cm) - Depth 0.1 -Total Square (Post) (cm) 0.66 -Area of Debridement (cm) - Length 0.6 -Area of Debridement (cm) - Width 1.1 -Total Square (Area) (cm) 0.66 -Tunneling No -Undermining/Tunneling No -Circular Undermining No -Wound/Ulcer Outcome Not Healed -Ulcer Cleansing Rinsed/ Irrigated with Saline -Foul Odor after Cleansing No -Bioengineered Tissue No -Bleeding Controlled with Pressure -Offloading No -Treatment Response Procedure Tolerated Well -Debridement - Subq, 1st 20sq cm No Pain Scale: 0-10 Numeric Is Patient Pain Free? Yes Assessment/Plan Assessment/Plan (1) Skin ulcer of left great toe with fat layer exposed: CODE(S): L97.522 - Non-pressure chronic ulcer of other part of left foot with fat layer exposed PLAN: Patient examined and evaluated, all findings discussed with the patient in detail. Left foot wounds and right leg wounds were debrided excisionally of all nonviable tissue down to including the level of subcutaneous tissue. Topical lidocaine for anesthesia, hemostasis obtained with light compression. Patient tolerated procedure well. Pre and post debridement measurements of wounds were documented in the nursing notes. Detailed history and physical was performed. The patient has significant right lower extremity swelling and pain concerning for deep venous thrombosis, I recommend stat duplex ultrasound to rule rule this out. Additional lab work including CBC/CMP/CRP/ESR/prealbumin were ordered. Left foot x-rays and right leg x-rays ordered. Noninvasive vascular studies ordered to rule out any form of arterial disease contributing to wound formation and delayed healing. Wounds to right leg okay dressed with Aquacel Ag along with left foot wounds followed by a dry sterile dressing and Tubigrip. We will consider different dressings versus additional treatments pending order results. Patient was dispensed a surgical shoe to help offload the left great toe. Patient will follow up in 1 week; however, we will follow up with his duplex ultrasound results if these are positive he will likely require hospital admission versus outpatient treatment DVT. (2) Venous insufficiency: CODE(S): I87.2 - Venous insufficiency (chronic) (peripheral) (3) 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 layer exposed: CODE(S): L97.212 - 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 layer exposed
[2021-06-07 10:58] VITALS: BP 183/97; PULSE 68
--- NOTE | 2021-06-07 11:34 | VDLE_ITS ---
Reason For Study: Pain, edema RIGHT GSV is normal. CFV is compressible, spontaneous, phasic, competent and demonstrates normal augmentation. FV is compressible, spontaneous, phasic, competent and demonstrates normal augmentation. POP V is compressible, spontaneous, phasic, competent and demonstrates normal augmentation. T/P Trunk is compressible. PTV is compressible. RT PerV is compressible. Procedure This is a venous duplex using B-mode, color flow and spectral Doppler. Exam performed in department. A preliminary report was called and/or faxed to [facility]. VL/Venous Duplex US, Unilateral Interpretation Summary Deep veins of the right lower extremity are patent and compressible segmentally . There is no evidence of right lower extremity deep vein thrombosis. Valvular competence norbert ears intact within the proximal deep venous system on the right . The right great saphenous vein a ppears patent and compressible segmentally. Ordering Physician: Mike Wilkinson Referring Physician: Low Zheng Chi Performed By: Irene Cai RVT
[2021-06-08 17:11] LABS: M R Staph aureus DNA By PCR Negative (Negative); Probe Check PASS; Staph aureus DNA By PCR POSITIVE (Negative)
[2021-06-16 11:03] VITALS: BP 162/99; PULSE 52; RESP 18; TEMP 36.2; BMI 38.7
--- NOTE | 2021-06-16 12:49 | PN.PCM_ITS ---
History of Present Illness Date of Service: 06/16/21 Chief Complaint: left great toe wound History of Wound: This is a 70-year-old male who presents to the wound healing center today with complaint of nonhealing wound to left great toe. He has a past medical history as listed above, PVD, CAD, and hyperlipidemia. The patient states that approximately 2 weeks ago he must of bumped his left great toe on something and developed a scabbed area shortly afterwards. He followed up with his primary care who apparently placed him on an antibiotic which she is almost completed. He states that it has not healed much and that at times it continues to be painful. He denies any drainage and denies any systemic or localized signs of infection at this time. Denies any other acute concerns. Past medical, family, and social history reviewed and not pertinent to the current visit and all other systems reviewed and negative with exception of those listed above. Patient has additional wound to right posterior lateral lower extremity. Patient notes significant edema relates that his leg swelling 4 times its normal size. He notes pain and discomfort to that side. He denies any chest pain or shortness of breath at current he denies any constitutional symptoms. Subjective Subjective This is a 70-year-old male who presents to the wound care center for follow-up of nonhealing left great toe wound and right lower extremity posterior lateral wound secondary to chronic venous insufficiency complicated by edema, PVD, CAD, and hyperlipidemia. He denies any nausea, vomiting, fever, chills, shortness of breath, or other constitutional symptoms. He denies any other acute concerns. Objective Data Objective Data Vital Signs: Vital Signs Temp Pulse Resp BP 97.2 F L 52 L 18 162/99 H 06/16/21 11:03 06/16/21 11:03 06/16/21 11:03 06/16/21 11:03 Oxygen Delivery Method Room Air Weight: 108.862 kg Body Mass Index (BMI) 38.7 Lab / Micro Data Micro: Microbiology 06/07/21 10:40 Wound - Leg, Right Gram Stain - Final 06/07/21 10:40 Wound - Leg, Right Wound Culture - Final Serratia marcescens 06/07/21 10:40 Wound - Leg, Right Anaerobic Culture - Final No anaerobic bacteria isolated. Physical Exam Narrative Patient alert oriented to person place and time. Vascular: There is noted to be atrophic skin changes such as thinning, taut shiny appearance. Absent digital hair growth. Diffuse hemosiderin deposits noted bilaterally. Patient has +4 pitting edema to right lower extremity +1 on the left side. Patient has significant calf pain upon palpation and squeeze to the right lower extremity -negative DVT studies 06/07/2021 Neurologic: Light touch protective sensation intact bilateral feet. No evidence of clonus or Babinski at this time. Dermatologic: Multiple focal ulcerations noted to the posterior lateral right leg likely related to chronic venous insufficiency. These wounds appear devoid of any signs of infection including deep probing purulence focal increase in warmth. There is significant edema and tenderness to the periwound areas. These wounds demonstrate severe serous drainage with maceration to the periwound areas. Full-thickness ulceration to dorsal left hallux and plantar left hallux. Predebridement measurements and postoperative measurements documented in nursing chart for both wounds. The left hallux wounds demonstrate yellow fibrous base predebridement with a mildly bleeding granular base post debridement. The periwound areas are devoid of any signs of infection there is no evidence of deep probing. Musculoskeletal: No gross deformities noted bilateral lower extremity, muscular strength 4-5 bilateral lower extremity compartments. There is noted to be hallux limitus to the left foot potentially contributing to the patient's wound formation. There is significant pain with right calf squeeze -negative DVT studies 06/07/2021. Const alert, oriented x3 and no apparent distress General Appearance: cooperative HEENT normocephalic Eyes General Eye: normal appearance of both eyes Neck General: normal visual inspection Resp normal respiratory effort Cardio regular rate and regular rhythm Skin General Skin Exam: venous stasis and dermatitis Lesions: no lesions Rashes: no rashes Neuro Motor Exam: strength 5/5 throughout and clonus absent Debridement Note Debridement Note Wound debrided: Right posterior lateral Laterality: Right Wound Grade/Stage: Ramesh stage I Type of Debridement: Excisional debridement Anesthesia Used: 5% Lidocaine Gel Depth: in the subcutaneous layer Percentage of wound debrided: 100 Instrument Used: #15 blade Tissue Removed: Fibrous, devitalized subcutaneous, biofilm, slough Severity: Fat Layer Exposed Amount of bleeding with debridement: Mild Bleeding Controlled with: Pressure Patient tolerated procedure: Patient tolerated procedure well Post-Debridement Measurements and Additional Note: Post-Debridement Measurements/Treatment WC - Nurse 1 - General Ulcer Assessment Start: 06/07/21 10:04 Freq: Status: Active Protocol: AUTUMN Activity Type Activity Date Activity User E-Sign Co-Sign Detail Recorded Client Recorded Date Recorded By Document 06/07/21 10:04 [id number] 06/07/21 10:25 MW Document 06/16/21 11:03 [facility] [id number] 06/16/21 11:18 [facility] 06/07/21 06/16/21 10:04 11:03 - Today's Visit Information Type of service Initial Visit Follow-up Visit (Physician/PRECISION LENS GENERATOR ) Arrival Mode Ambulatory Transfer Assistance None Patient Identification Verified (Name & Yes ) Patient Requires Transmission-Based No Precautions Height and Weight Body Mass Index (BMI) 38.7 38.7 BMI Classification Obese Obese Vital Signs Temperature (97.8 F-99.1 F) 97.6 F L 97.2 F L Temperature Source Temporal Temporal Pulse Rate (60-100) 85 52 L Pulse Location Monitor Monitor Respiratory Rate (12-18) 18 18 Respiratory rate source Observation Observation Oxygen Delivery Method Room Air Blood Pressure (90/60-120/80) 163/115 H 162/99 H Blood Pressure Mean (mm Hg) 131 120 Source Monitor Monitor Position Sitting Sitting Blood Pressure Location Left Arm Comment PT ANXIOUS. counseled on bp WILL RECHK PRIOR TO LEAVING Have you changed medications since your No last visit? Any new allergies or adverse reactions No Had a fall/change in ADL's that may No increase risk of falls Signs or symptoms of abuse and/or No neglect since last visit Have you been in the hospital since your No last visit? Has dressing in place as prescribed No Has compression in place as prescribed No Has offloadiing in place as prescribed N/A Experienced any changes in pain level or No management History Since Last Visit- (Skip if this is Patient's initial visit) Left Footwear Regular Shoe Regular Shoe Right Footwear Regular Shoe Regular Shoe Pain Scale: 0-10 Numeric Is Patient Pain Free? Yes Yes - Nurse 1 - General Ulcer Measurement Start: 06/07/21 10:04 Freq: Status: Active Protocol: Activity Type Activity Date Activity User E-Sign Co-Sign Detail Recorded Client Recorded Date Recorded By Document 06/07/21 10:04 MW [id number] 06/07/21 10:25 MW Document 06/16/21 11:03 [facility] [id number] 06/16/21 11:18 BMF 06/07/21 06/16/21 10:04 11:03 Wound Center Nurse 1 #4- L HALLUX PLANTAR -Combined with other wound No No -Current Size (cm) - Length 0.6 0.5 -Current Size (cm) - Width 0.5 0.3 -Current Size (cm) - Depth 0.1 0.1 -Total Square Cm 0.30 0.15 -Date of Last Picture (Recall this 06/07/21 field) -Photo Taken Yes No -Epithelialization None Present None Present -Tunneling No No -Undermining/Tunneling No No -Circular Undermining No No -Exudate Amt Medium Small -Exudate Type Serosanguineous Serous -Wound Margin Distinct, Distinct, Outline Outline Attached Attached -Granulation Amt Large (67-100%) Small (1-33%) -Granulation Quality Red Red -Slough/Fibrin Yes Yes -Necrosis Amt Small (1-33%) Large (67-100%) -Necrotic Tissue Type Adherent Slough Adherent Slough -Texture (Veronica-wound Skin Appearance) Assessed,Callus Callus,Scarring -Moisture (Veronica-wound Skin Appearance) Assessed,Dry/ Assessed,Dry/ Scaly Scaly -Color (Veronica-wound Skin Appearance) Assessed Assessed -Temperature (Veronica-wound Skin No Abnormality No Abnormality Appearance) (Pt Warm) (Pt Warm) -Tenderness on Palpation (Veronica-wound Yes No Skin Appearance) -Ulcer Cleansing Soap and Water Soap and Water -Foul Odor after Cleansing No No -Anesthetic Used 5% Lidocaine 4% Lidocaine Gel Solution #3- R LAT LE CLUSTER -Combined with other wound No No -Current Size (cm) - Length 9.5 8 -Current Size (cm) - Width 6.4 5.6 -Current Size (cm) - Depth 0.1 0.2 -Total Square Cm 60.80 44.8 -Date of Last Picture (Recall this 06/07/21 field) -Photo Taken Yes No -Epithelialization None Present None Present -Tunneling No No -Undermining/Tunneling No No -Circular Undermining No No -Exudate Amt Large Medium -Exudate Type Serosanguineous Serous -Wound Margin Distinct, Distinct, Outline Outline Attached Attached -Granulation Amt Small (1-33%) None Present (0 %) -Granulation Quality Red -Slough/Fibrin Yes Yes -Necrosis Amt Large (67-100%) Large (67-100%) -Necrotic Tissue Type Adherent Slough Adherent Slough -Texture (Veronica-wound Skin Appearance) Assessed, Assessed, Scarring Scarring -Moisture (Veronica-wound Skin Appearance) Assessed, Assessed, Weeping Maceration, Weeping -Color (Veronica-wound Skin Appearance) Assessed, Assessed,Palor Erythema -Temperature (Veronica-wound Skin No Abnormality No Abnormality Appearance) (Pt Warm) (Pt Warm) -Tenderness on Palpation (Veronica-wound Yes Yes Skin Appearance) -Ulcer Cleansing Soap and Water Soap and Water -Foul Odor after Cleansing No No -Anesthetic Used 4% Lidocaine 4% Lidocaine Solution Solution #2 left hallux dorsal -Combined with other wound No No -Current Size (cm) - Length 0.6 1.8 -Current Size (cm) - Width 1 0.5 -Current Size (cm) - Depth 0.1 0.2 -Total Square Cm 0.6 0.90 -Date of Last Picture (Recall this 06/07/21 field) -Photo Taken Yes No -Epithelialization None Present None Present -Tunneling No No -Undermining/Tunneling No No -Circular Undermining No No -Exudate Amt Medium Medium -Exudate Type Serosanguineous Serosanguineous -Wound Margin Distinct, Distinct, Outline Outline Attached Attached -Granulation Amt Small (1-33%) None Present (0 %) -Granulation Quality Red -Slough/Fibrin Yes Yes -Necrosis Amt Large (67-100%) Large (67-100%) -Necrotic Tissue Type Adherent Slough Adherent Slough -Texture (Veronica-wound Skin Appearance) Assessed, Assessed, Scarring Scarring -Moisture (Veronica-wound Skin Appearance) Assessed Assessed -Color (Veronica-wound Skin Appearance) Assessed, Assessed, Erythema Erythema -Temperature (Veronica-wound Skin No Abnormality No Abnormality Appearance) (Pt Warm) (Pt Warm) -Tenderness on Palpation (Veronica-wound Yes Yes Skin Appearance) -Ulcer Cleansing Soap and Water Soap and Water -Foul Odor after Cleansing No No -Anesthetic Used 5% Lidocaine 4% Lidocaine Gel Solution Lower Limb Edema Present Yes Yes Right Calf (cm) 49.5 49.2 Right Ankle (cm) 32.5 31 Left Calf (cm) 43.8 44.1 Left Ankle (cm) 28 27.4 WC - Nurse 2 - General Ulcer CM Notes Start: 06/07/21 10:04 Freq: Status: Active Protocol: Activity Type Activity Date Activity User E-Sign Co-Sign Detail Recorded Client Recorded Date Recorded By Document 06/07/21 10:51 [id number] 06/07/21 10:55 ALY 06/07/21 10:51 Wound Center Nurse 2 #4- L HALLUX PLANTAR -Time 10:52 -Correct Patient Yes -Correct Side, Site, Position Yes -Correct Procedure Yes -Procedure Performed Yes -Type of Procedure Debridement -Clinical Debridement Subcutaneous -Tissue Removed Subcutaneous -Post Debridement (cm) - Length 0.6 -Post Debridement (cm) - Width 0.6 -Post Debridement (cm) - Depth 0.1 -Total Square (Post) (cm) 0.36 -Area of Debridement (cm) - Length 0.6 -Area of Debridement (cm) - Width 0.6 -Total Square (Area) (cm) 0.36 -Tunneling No -Undermining/Tunneling No -Circular Undermining No -Wound/Ulcer Outcome Not Healed -Foul Odor after Cleansing No -Bioengineered Tissue No -Bleeding Controlled with Pressure -Offloading Yes -Type of Offloading Surgical Shoe -Treatment Response Procedure Tolerated Well -Debridement - Subq, 1st 20sq cm No #3- R LAT LE CLUSTER -Time 10:52 -Correct Patient Yes -Correct Side, Site, Position Yes -Correct Procedure Yes -Procedure Performed Yes -Type of Procedure Debridement -Clinical Debridement Subcutaneous -Tissue Removed Subcutaneous -Post Debridement (cm) - Length 9.5 -Post Debridement (cm) - Width 6.5 -Post Debridement (cm) - Depth 0.1 -Total Square (Post) (cm) 61.75 -Area of Debridement (cm) - Length 9.5 -Area of Debridement (cm) - Width 6.5 -Total Square (Area) (cm) 61.75 -Tunneling No -Undermining/Tunneling No -Circular Undermining No -Wound/Ulcer Outcome Not Healed -Ulcer Cleansing Rinsed/ Irrigated with Saline -Foul Odor after Cleansing No -Bioengineered Tissue No -Bleeding Controlled with Pressure -Offloading No -Treatment Response Procedure Tolerated Well -Debridement - Subq, 1st 20sq cm Yes -Debridement, SubQ, ea addt'l 20sq cm 3 or part thereof #2 left hallux dorsal -Time 10:54 -Correct Patient Yes -Correct Side, Site, Position Yes -Correct Procedure Yes -Procedure Performed Yes -Type of Procedure Debridement -Clinical Debridement Subcutaneous -Tissue Removed Subcutaneous -Post Debridement (cm) - Length 0.6 -Post Debridement (cm) - Width 1.1 -Post Debridement (cm) - Depth 0.1 -Total Square (Post) (cm) 0.66 -Area of Debridement (cm) - Length 0.6 -Area of Debridement (cm) - Width 1.1 -Total Square (Area) (cm) 0.66 -Tunneling No -Undermining/Tunneling No -Circular Undermining No -Wound/Ulcer Outcome Not Healed -Ulcer Cleansing Rinsed/ Irrigated with Saline -Foul Odor after Cleansing No -Bioengineered Tissue No -Bleeding Controlled with Pressure -Offloading No -Treatment Response Procedure Tolerated Well -Debridement - Subq, 1st 20sq cm No Pain Scale: 0-10 Numeric Is Patient Pain Free? Yes WC - Nurse 3 - General Ulcer D/C NN Start: 06/07/21 10:04 Freq: Status: Active Protocol: Activity Type Activity Date Activity User E-Sign Co-Sign Detail Recorded Client Recorded Date Recorded By Document 06/07/21 10:58 [facility] [id number] 06/07/21 11:07 BM Document 06/16/21 12:19 [facility] [id number] 06/16/21 12:20 [facility] 06/07/21 06/16/21 10:58 12:19 Wound Care Nurse 3 #4- L HALLUX PLANTAR -Ulcer Cleansing Rinsed/ Rinsed/ Irrigated with Irrigated with Saline Saline -Foul Odor after Cleansing No No -Primary Dressing Applied Aquacel AG 4x4 Aquacel AG 4x4 -Primary Dressing Covered/Secured with Dry Gauze, Dry Gauze, Secured with Secured with Tape Tape -Other Covering DRSG PER MW RN -Aquacel AG 4x4 1 1 #3- R LAT LE CLUSTER -Ulcer Cleansing Rinsed/ Rinsed/ Irrigated with Irrigated with Saline Saline -Foul Odor after Cleansing No No -Primary Dressing Applied Aquacel AG 4x4, Aquacel AG 4x4, Optilok 6.5x10 Optilok 6.5x10 -Other Dressing DRSG PER MW RN -Primary Dressing Covered/Secured with Dry Gauze & Dry Gauze & Roll Gauze, Roll Gauze, Secured with Secured with Tape Tape -Aquacel AG 4x4 0 0 -Optilok 6.5x10 2 1 #2 left hallux dorsal -Ulcer Cleansing Rinsed/ Rinsed/ Irrigated with Irrigated with Saline Saline -Foul Odor after Cleansing No No -Primary Dressing Applied Aquacel AG 4x4 Aquacel AG 4x4 -Primary Dressing Covered/Secured with Dry Gauze, Dry Gauze, Secured with Secured with Tape Tape -Other Covering DRSG PER MW RN -Aquacel AG 4x4 0 0 ble -Tubular Bandage Double Layer -Size of Tubigrip Used Size E -Size E ($) 2 Treatment Response Procedure Tolerated Well Vital Signs Pulse Rate (60-100) 68 Pulse Location Monitor Blood Pressure (90/60-120/80) 183/97 H Blood Pressure Mean (mm Hg) 125 Source Monitor Position Sitting Blood Pressure Location Left Forearm Pain Scale: 0-10 Numeric Is Patient Pain Free? No Yes GENERALIZED LE -Description Aching -Intensity 5 -Duration (hours) Acute -Pain Behavior Withdrawal from Touch,Facial Grimacing -Alleviating Factors/Interventions Turning/ Repositioning, Distraction, Will continue to monitor, Patient denies need for intervention, Emotional Support WC - Visit Discharge Discharge Condition Stable Ambulatory Status Ambulatory,Cane ,Wheelchair Transportation Private Auto Additional Wound Wound debrided: Dorsal left hallux Laterality: Left Wound Grade/Stage: Ramesh stage I Type of Debridement: Excisional debridement Anesthesia Used: 5% Lidocaine Gel and Cetacaine Depth: in the subcutaneous layer Percentage of wound debrided: 100 Instrument Used: #15 blade Tissue Removed: Fibrous, devitalized subcutaneous, biofilm, slough Severity: Fat Layer Exposed Amount of bleeding with debridement: Mild Bleeding Controlled with: Pressure Patient tolerated procedure: Patient tolerated procedure well Additional Wound Wound debrided: Left plantar hallux Laterality: Left Wound Grade/Stage: Ramesh stage I Type of Debridement: Excisional debridement Anesthesia Used: 5% Lidocaine Gel Depth: in the subcutaneous layer Percentage of wound debrided: 100 Instrument Used: #15 blade Tissue Removed: Fibrous, devitalized subcutaneous, biofilm, slough Severity: Fat Layer Exposed Amount of bleeding with debridement: Mild Bleeding Controlled with: Pressure Patient tolerated procedure: Patient tolerated procedure well Assessment/Plan Assessment/Plan (1) Skin ulcer of left great toe with fat layer exposed: CODE(S): L97.522 - Non-pressure chronic ulcer of other part of left foot with fat layer exposed PLAN: This is a 70-year-old male with nonhealing left hallux wound dorsally, right posterior lateral lower extremity ulceration secondary to chronic venous insufficiency complicated by PVD, CAD, hyperlipidemia. 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 Patient examined and evaluated, all findings discussed with the patient in detail. Left foot wounds and right leg wounds were debrided excisionally of all nonviable tissue down to including the level of subcutaneous tissue utilizing a #15 blade without incident. Topical lidocaine 5% gel for anesthesia, hemostasis obtained with light compression. Patient tolerated procedure well. Pre and post debridement measurements of wounds were documented in the nursing notes. Detailed history and physical was performed. The patient has significant right lower extremity swelling and pain Dr. Wilkinson concerned for deep venous thrombosis, he ordered a stat duplex ultrasound to rule rule this out. Results of duplex ultrasound were negative for DVT on 06/07/2021. Additional lab work including CBC/CMP/CRP/ESR/prealbumin were ordered -awaiting results. Left foot x-rays and right leg x-rays ordered -awaiting results. Noninvasive vascular studies ordered to rule out any form of arterial disease contributing to wound formation and delayed healing -awaiting results. I reviewed his serology from 06/07/2021 which was negative for MRSA by PCR detection. He does have staph aureus component detected, however this is likely due to normal skin contaminant. Wounds to right leg okay dressed with Aquacel Ag along with left foot wounds followed by a dry sterile dressing and Tubigrip. With DVT studies negative I recommend double Tubigrip stocking to aid in edema control along with elevation of both lower extremities. He is to perform dorsiflexion and plantarflexion exercises to aid in venous return via calf muscle pump. Patient to continue to wear surgical shoe to help offload the left great toe. I reviewed and discussed his case today. Debridement was performed today as noted in the clinical panel to all of the ulcer sites. The following work up and care recommendations were made: Dressing: Aquacel Ag along with super absorbent dressing, dry sterile dressing, double Tubigrip stocking Wash: Soap and water Tissue growth optimization: Aquacel Ag Offload: Surgical shoe left plantar foot Vascular: Negative DVT ultrasound on 06/07/2021. Awaiting further vascular studies Edema: Tubigrip stockinette, elevation of both lower extremities Infection: No localized signs of infection Pain: Patient may take [id number] Tylenol extra strength for pain Host factors: Chronic venous insufficiency, PVD, CAD, hyperlipidemia. I answered all the patient's questions. To return to the wound healing center in [address] Jaja DPM or call sooner if the patient has any questions or concerns. Note: [employer] speech recognition directional bore operator software was used to create portions of this document. Sound-alike and misspelled words, as well as other directional bore operator errors may be contained in the documentation. (2) Venous insufficiency: CODE(S): I87.2 - Venous insufficiency (chronic) (peripheral) (3) 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 layer exposed: CODE(S): L97.212 - 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 layer exposed
== END 2021-06-27 23:59 | disposition home or self-care (01) ==
LOC: WC 11:00
PROVIDERS: PCP Family Medicine Geriatric Medicine; Visit Provider Podiatrist
DX: L97.522 Non-pressure chronic ulcer of other part of left foot with fat layer exposed (principal); L97.912 Non-pressure chronic ulcer of unspecified part of right lower leg with fat layer exposed; I73.9 Peripheral vascular disease, unspecified; E78.5 Hyperlipidemia, unspecified; I25.10 Atherosclerotic heart disease of native coronary artery without angina pectoris; I87.2 Venous insufficiency (chronic) (peripheral); Z87.891 Personal history of nicotine dependence; N40.0 Benign prostatic hyperplasia without lower urinary tract symptoms; I10 Essential (primary) hypertension; K21.9 Gastro-esophageal reflux disease without esophagitis; G47.33 Obstructive sleep apnea (adult) (pediatric)
CPT/HCPCS: 11042; 11045; 87070; 87075; 87077; 87186; 87205; 87640; 93971; 99214; G0463

== ENCOUNTER 2021-07-12 13:59 | Outpatient (CLI) | payer MEDICARE, SELFPAY ==
[2021-07-12 17:14] LABS: Absolute Lymphocyte Count 1.15 X10^3/uL (0.83-4.51); Absolute Neutrophil Count 7.8 X10^3/uL (2.0-7.7); Basophil# 0.03 X10^3/uL; Basophil% 0.3 % (0-1); Eosinophil# 0.19 X10^3/uL; Eosinophils% 1.9 % (0-5); Hematocrit 48.1 % (40-54); Hemoglobin 16.1 g/dL (13.0-16.5); Lymphocyte # 1.15 X10^3/ul (0.83-4.51); Lymphocyte % 11.4 % (19-41); Mean Corp Hgb Conc 33.5 g/dL (32-36); Mean Corpuscular Hgb 30.3 pg (27.0-32.0); Mean Corpuscular Volume 90.4 fL (80-94); Mean Platelet Vol. 10.6 fl (6.2-12.0); Monocyte# 0.85 X10^3/uL; Monocyte% 8.4 % (0-10); NRBC Flagged by Analyzer 0 % (0-5); Neutrophil # 7.82 X10^3/uL (2.7-7.7); Neutrophil % 77.8 % (47-70); Platelet Count 206 K/mm3 (150-450); RBC Distribution Width CV 14.5 % (11.6-14.6); RBC Distribution Width SD 47.9 fl (35.1-43.9); Red Blood Count 5.32 M/mm3 (4.6-6.2); White Blood Count 10.1 K/mm3 (4.4-11.0)
[2021-07-12 17:30] LABS: Vitamin D,25 Hydroxy 11.2 ng/mL
[2021-07-12 17:40] LABS: ALB/GLOB Ratio 0.9 RATIO (0.9-2.4); AST(SGOT) 20 U/L (15-37); Alanine Aminotransfer ALT/SGPT 37 U/L (16-61); Albumin, Serum 3.4 g/dL (3.2-5.0); Alkaline Phosphatase 99 U/L (45-117); Anion Gap 5 (5-15); BUN 17 mg/dL (7-18); BUN/Creat Ratio 14.8 RATIO (10-20); Calcium,Total 8.9 mg/dL (8.5-10.1); Chloride 107 mmol/L (98-107); Creatinine, Serum 1.15 mg/dL (0.70-1.30); EST Glomerular Filtration Rate 67 mL/min (>60); Est Glom Filt Rate - Afr Amer 81 mL/min (>60); Globulin 3.9 g/dL (2.2-4.2); Glucose 92 mg/dL (74-106); Potassium 3.6 mmol/L (3.5-5.1); Protein, Total 7.3 g/dL (6.4-8.2); Sodium Level 138 mmol/L (136-145); Thyroid Stim Hormone (TSH) 1.96 uIU/mL (0.358-3.74)
== END 2021-07-12 23:59 | disposition home or self-care (01) ==
LOC: POLAB3 14:00
PROVIDERS: PCP Family Medicine Geriatric Medicine; Visit Provider Family Medicine Geriatric Medicine
DX: E55.9 Vitamin D deficiency, unspecified (principal); I10 Essential (primary) hypertension
CPT/HCPCS: 36415; 80053; 82306; 84443; 85025

== ENCOUNTER → 2021-09-08 | Outpatient (CLI) | payer MEDICARE, SELFPAY ==
--- NOTE | 2021-09-08 15:50 | RAD_ITS ---
STUDY: X-RAY - RIGHT FOOT CLINICAL: Male, 70 years old. PAIN IN RT FOOT TECHNIQUE: 3 view(s) of the foot. COMPARISON: March 07, 2016 FINDINGS: Normal talus, calcaneus, and tarsal bones. Normal visualized subtalar, talonavicular, calcaneocuboid, tarsal and tarsometatarsal articulations. Normal metatarsi. Normal metatarsophalangeal joint of the great toe. Normal tibial and fibular sesamoid bones. Normal interphalangeal joint of the great toe. Normal phalanges of the great toe. Normal second through fifth metatarsophalangeal joints. Normal interphalangeal joints and phalanges of the lesser toes. The soft tissue structures are unremarkable. RAD/Foot min 3 Views IMPRESSION: Normal x-ray examination of the foot. Electronically Signed: Norman Garcia MD at 0:35 EDT ,
[2021-09-08 18:08] LABS: M R Staph aureus DNA By PCR Negative (Negative); Probe Check PASS; Specimen Processing Control PASS; Staph aureus DNA By PCR POSITIVE (Negative)
== END | disposition home or self-care (01) ==
LOC: RAD 15:46
PROVIDERS: PCP Family Medicine Geriatric Medicine; Visit Provider Family Medicine Geriatric Medicine
DX: L03.119 Cellulitis of unspecified part of limb (principal)
CPT/HCPCS: 73630; 87070; 87077; 87186; 87205; 87640

== ENCOUNTER 2021-09-14 17:29 | Inpatient (IN) | payer MEDICARE, SELFPAY ==
--- NOTE | 2021-09-14 17:24 | HP.PCM_ITS ---
HPI - General General Date of Admission: 09/14/21 HPI Narrative TURNER YAN, is a 70 M who presented to the office with right 2nd toe infection. He is here with his son. Patient has not been himself, has been seeing things. Patient's son is concerned as patient is not normally like this. He has had on and off wounds for awhile. Patient has swelling on both feet and legs - this is chronic. Patient has infection to the right 2nd toe - had it cultured several days ago - grew staph aureus and serratia, patient has been on Levofloxacin and Bactrim since 09/12/2021. Patient relates he sees bugs coming from wound. Patient has a lot of pain to the right foot and leg. Patient was going to wound center previously but does not want to go back because they were using knife on wounds. Patient relates right leg wound and right 2nd toe ulcer are draining a lot. He relates he is cold all of the time. COUNT INCLUDES THE [facility] Medical History (Updated 09/14/21 @ 17:[address] 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, nasal cavity and accessory sinuses BPH (benign prostatic hyperplasia) Cardiac murmur, unspecified Cervical disc disease Dyspnea on minimal exertion Essential (primary) hypertension Former smoker GERD (gastroesophageal reflux disease) Hyperlipidemia New onset atrial fibrillation (03/24/20) Obesity ANDREE (obstructive sleep apnea) Pain of left lower extremity due to injury Skin ulcer of left great toe with fat layer exposed Traumatic hematoma of left lower leg Home Medications atenolol 50 mg PO DAILY 08/23/14 [History Last Taken 11/01/18 08:30] acetaminophen 500 mg PO Q4H PRN PRN tab 07/26/18 [Rx Last Taken 07/28/18] lisinopril 10 mg tablet 10 mg PO QHS #90 tab 03/31/20 [Rx Last Taken Unknown] rivaroxaban [Xarelto] 20 mg PO DAILY 06/07/21 [History Last Taken Unknown] Allergy/AdvReac Type Severity Reaction Status Date / Time apixaban [From Eliquis] AdvReac Intermediate Wet the Verified 06/07/21 10:25 bed: found out later had UTI ibuprofen [From Motrin] AdvReac Nausea Verified 06/07/21 10:25 Family History Mother CAD (coronary artery disease) Hypertension History of cardiac radiofrequency ablation Sister Hypertension Other Arthritis Surgical History H/O cervical spine surgery History of bursectomy History of carpal tunnel release History of carpal tunnel surgery History of coronary artery stent placement (11/29/10) History of fusion of cervical spine History of herniorrhaphy History of removal of cyst History of transurethral resection of prostate Social History Smoking Status: Former smoker alcohol intake: current details: occasional substance use type: does not use additional social history: DOES NOT TAKE ASPIRIN DOES NOT TAKE IBUPROFEN Physical Exam Const alert and no apparent distress Skin Skin Narrative: There is ulceration to the dorsal right 2nd toe and the distal posterior leg - fibrotic tissue - wound posterior leg down to subcutaneous tissue, wound right 2nd toe down to fascia layer - there is pain to the ulcer sites- there is noted erythema to the right foot. There is chronic venous insufficiency changes to bilateral LE with diffuse edema present to the lower extremity bilateral. DP and PT pulses audible via doppler right foot. CFT < 2 seconds to all toes bilateral, no evidence of acute ischemia bilateral foot. Sensation intact to light touch bilateral. No visible abscess, no crepitus, no fluctuance, no maloder bilateral foot, ankle or leg. No m/s POP or pain on ROM to the foot or ankle. Assessment & Plan Assessment/Plan (1) Cellulitis of right lower limb: PLAN: Patient was seen at my office - he was admitted to the hospital for further management and workup. A culture has already been obtained and patient will be started on IV Rocephin 1g IV q 24 hours. Plan to order MRI right foot for further evaluation of concern of possible right 2nd toe osteomyelitis. Right tib/fib xrays will be ordered as well. LEAS ordered for further evaluation of LE arterial flow. Wound nursing consult placed. Pain control: Tylenol and Oxyir. Hospital medicine team consulted for medical evaluation/management - appreciate assistance. (2) 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 layer exposed: (3) Non-pressure chronic ulcer of other part of right foot with necrosis of muscle: (4) Venous insufficiency:
--- NOTE | 2021-09-14 17:36 | ART_ITS ---
Reason For Study: ulcer Procedure A bilateral lower extremity continuous wave Doppler with analog waveform analysis,segmental pressures,and ankle brachial indexes without exercise. Left Segmental Pressures Left brachial= 128mmHg. Left posterior tibial artery = 157mmHg. Left dorsalis pedis artery = 162mmHg. The left dorsalis pedis waveforms are triphasic. The left posterior tibial artery waveforms are triphasic. Great toe is noncompressible. Right Segmental Pressures Right posterior tibial artery = 179mmHg. Right dorsalis pedis artery = 180mmHg. The right dorsalis pedis waveforms are triphasic. The right posterior tibial artery waveforms are triphasic. No RUE brachial pressure due to IV site. Great toe is noncompressible. Indices The right ankle brachial index by the dorsalis pedis is 1.41. The right ankle brachial index by the posterior tibial artery is 1.4. Great toe is noncompressible. The left ankle brachial index by the dorsalis pedis is 1.27. The left ankle brachial index by the posterior tibial artery is 1.23. Great toe is noncompressible. VL/Lower Ext Art Exam w/o Exercis Interpretation Summary Triphasic Doppler waveforms are noted at ankle level bilaterally. Pulse-volume recordings appear satisfactory at all levels bilaterally. Resting ankle-brachial indices are norm al bilaterally. Digital-brachial indices could not be determined on either side due to the non- compressibility of the vasculature at digital level bilaterally. There is evidence of arterial calcification at digital level bilaterally. There is no evidence of significant arterial occlusive disease in the lower extremities bilaterally. Ordering Physician: Villa Ortiz Performed By: Sukhi Otero, RVT
[2021-09-14 18:21] VITALS: BMI 37.3
[2021-09-14 18:28] VITALS: BP 170/115; PULSE 95; RESP 18; TEMP 36.7; O2SAT 93
--- NOTE | 2021-09-14 18:29 | PN.HOSP_ITS ---
Documented by User: Oleg ZHANG 09/14/21 18:35 Subjective Subjective Patient is a 70-year-old male comfortably resting in a wheelchair, waiting for his med to be ready. Patient denies any acute problems outside of his right foot discomfort. Denies chest pain, shortness of breath, palpitations, hemopty sis, sputum production, fever, chills, N/V/D. Does not appear in acute distress. Physical Exam Const alert, oriented x3 and no apparent distress HEENT head/scalp atraumatic and moist oral mucous membranes Head and Scalp: normocephalic Eyes PERRL, EOMs intact bilaterally and conjunctivae normal Neck no lymphadenopathy, supple and no JVD Resp normal respiratory effort, no retractions and no use of accessory muscles Cardio regular rate, regular rhythm and no JVD GI normal to inspection, nondistended, normoactive bowel sounds and soft to palpation Extremity Extremity Narrative: Bilateral lower extremity appropriately bandaged.. Left lower extremity unremarkable. Skin no rashes or lesions noted, no wounds and skin turgor normal Neuro CN's II-XII intact bilaterally Psych affect normal Assessment & Plan Assessment/Plan (1) Cellulitis of right lower limb: PLAN: Patient is a 70-year-old male who presents to the hospital medicine service on consult from podiatry who is primarily managing this patient for acute right lower extremity cellulitis. 1) atrial fibrillation Rate is currently controlled. On atenolol for rate control. Patient is anticoagulated on Xarelto. Continue atenolol and Xarelto. 2) HTN BP elevated but stable, continue lisinopril. As needed hydralazine ordered. 3) right lower extremity cellulitis On Rocephin, management per podiatry. As needed pain medications ordered. DVT prophylaxis - Xarelto Patient seen by Oleg Granados PA-C, under the supervision of Dr. Wilson. Time spent on patient care: 10 minutes.
[2021-09-14] MEDS: oxyCODONE 5 MG Tablet PO (18:45)
--- NOTE | 2021-09-14 19:00 | RAD_ITS ---
STUDY: X-RAY - RIGHT TIBIA AND FIBULA REASON FOR EXAM: Male, 70 years old. ulcer TECHNIQUE: 2 view(s) of the tibia and fibula were obtained. COMPARISON: None. FINDINGS: Normal visualized tibia. Normal visualized fibula. The soft tissue structures are unremarkable. RAD/Tibia & Fibula 2 Views IMPRESSION: Normal x-ray examination of the tibia and fibula. Electronically Signed: Norman Garcia MD at 23:17 EDT ,
[2021-09-14 19:18] LABS: Absolute Lymphocyte Count 1.05 X10^3/uL (0.83-4.51); Absolute Neutrophil Count 8.8 X10^3/uL (2.0-7.7); Basophil# 0.03 X10^3/uL; Basophil% 0.3 % (0-1); Eosinophil# 0.13 X10^3/uL; Eosinophils% 1.2 % (0-5); Hematocrit 45.1 % (40-54); Hemoglobin 15.4 g/dL (13.0-16.5); Lymphocyte # 1.05 X10^3/ul (0.83-4.51); Lymphocyte % 9.8 % (19-41); Mean Corp Hgb Conc 34.1 g/dL (32-36); Mean Corpuscular Hgb 30.7 pg (27.0-32.0); Mean Corpuscular Volume 89.8 fL (80-94); Mean Platelet Vol. 9.7 fl (6.2-12.0); Monocyte# 0.69 X10^3/uL; Monocyte% 6.4 % (0-10); NRBC Flagged by Analyzer 0 % (0-5); Neutrophil # 8.77 X10^3/uL (2.7-7.7); Neutrophil % 81.8 % (47-70); Platelet Count 225 K/mm3 (150-450); RBC Distribution Width CV 13.8 % (11.6-14.6); RBC Distribution Width SD 45.7 fl (35.1-43.9); Red Blood Count 5.02 M/mm3 (4.6-6.2); White Blood Count 10.7 K/mm3 (4.4-11.0)
[2021-09-14 19:27] LABS: Erythrocyte Sedimentation Rate 16 mm/hr (0-20)
[2021-09-14 19:52] LABS: ALB/GLOB Ratio 0.8 RATIO (0.9-2.4); AST(SGOT) 18 U/L (15-37); Alanine Aminotransfer ALT/SGPT 23 U/L (16-61); Alkaline Phosphatase 86 U/L (45-117); Anion Gap 6 (5-15); BUN 19 mg/dL (7-18); BUN/Creat Ratio 16.4 RATIO (10-20); Calcium,Total 8.9 mg/dL (8.5-10.1); Chloride 105 mmol/L (98-107); Creatinine, Serum 1.16 mg/dL (0.70-1.30); EST Glomerular Filtration Rate 66 mL/min (>60); Est Glom Filt Rate - Afr Amer 80 mL/min (>60); Estimated Creatinine Clearance 54.61 ml/min; Globulin 3.8 g/dL (2.2-4.2); Glucose 111 mg/dL (74-106); Potassium 3.8 mmol/L (3.5-5.1); Protein, Total 6.8 g/dL (6.4-8.2); Sodium Level 138 mmol/L (136-145)
[2021-09-14] MEDS: 0.9% Saline Lock 10 ML Syringe IV (20:27)
[2021-09-14] MEDS: Lisinopril 10 MG Tablet PO (20:27)
[2021-09-14] MEDS: Ceftriaxone 1 GM/50 ML BAG IV (20:27)
[2021-09-14 20:30] VITALS: BP 158/104; PULSE 78; RESP 16; TEMP 36.8; O2SAT 100
[2021-09-14] MEDS: Acetaminophen 325 MG Tablet 650 MG PO (20:31)
[2021-09-15] MEDS: Nystatin Powder 15gm Bottle 1 APPLIC TOPICAL ×3 (03:09→20:45)
[2021-09-15 03:15] VITALS: BP 121/81; PULSE 72; RESP 16; TEMP 36.4; O2SAT 99
[2021-09-15] MEDS: Acetaminophen 325 MG Tablet 650 MG PO ×2 (05:34→18:14)
[2021-09-15] MEDS: oxyCODONE 5 MG Tablet PO ×2 (05:34→20:43)
--- NOTE | 2021-09-15 07:52 | PCM.PN.HOSP ---
Subjective Subjective Patient admitted with right second toe infection, chronic in nature. Patient also has chronic ulcer in the right leg wrapped up with dressing. History of chronic swelling of feet and legs, drainage probably purulent. Patient also has neuropathy and lower legs are very sensitive to touch. Previous culture showed MSSA and Serratia. Objective Data Objective Data Vital Signs: Vital Signs Temp Pulse Resp BP Pulse Ox 97.6 F L 72 16 121/81 H 99 09/15/21 03:15 09/15/21 03:15 09/15/21 03:15 09/15/21 03:15 09/15/21 03:15 Oxygen Delivery Method Room Air Weight: 238 lb 3.2 oz Body Mass Index (BMI) 37.3 Intake & Output: Intake and Output for Last 24 Hours 09/13/21 09/14/21 09/15/21 23:59 23:59 23:59 Intake Total 50 / 50 Balance 50 / 50 Lab / Micro Data Result Diagrams: 09/14/21 18:58 09/14/21 18:58 Labs: Laboratory Results - last 24 hr 09/14/21 18:58: WBC 10.7, RBC 5.02, Hgb 15.4, Hct 45.1, MCV 89.8, MCH 30.7, MCHC 34.1, RDW Std Deviation 45.7 H, RDW Coeff of Naz 13.8, Plt Count 225, MPV 9.7, Immature Gran % (Auto) 0.500, Neut % (Auto) 81.8 H, Lymph % (Auto) 9.8 L, [place] % (Auto) 6.4, Eos % (Auto) 1.2, Baso % (Auto) 0.3, Absolute Neuts (auto) 8.8 H, Absolute Lymphs (auto) 1.05, Nucleated RBC % 0, ESR 16 09/14/21 18:58: Sodium 138, Potassium 3.8, Chloride 105, Carbon Dioxide 27.0, Anion Gap 6, BUN 19 H, Creatinine 1.16, Estim Creat Clear Calc 54.61, Est GFR (MDRD) Af Amer 80, Est GFR (MDRD) Non-Af 66, BUN/Creatinine Ratio 16.4, Glucose 111 H, Calcium 8.9, Total Bilirubin 1.10 H, AST 18, ALT 23, Alkaline Phosphatase 86, C-React Prot Ext Range 20.50 H, Total Protein 6.8, Albumin 3.0 L, Globulin 3.8, Albumin/Globulin Ratio 0.8 L Radiography Diagnostic Testing: Radiology Impression Tibia/Fibula X-Ray 09/14/21 19:00 IMPRESSION: Normal x-ray examination of the tibia and fibula. Electronically Signed: Norman Garcia MD at 23:17 EDT , Physical Exam Narrative Physical exam General: Alert, Oriented x3, Cooperative HEENT: Atraumatic, PERRLA, EOMI, Normocephalic Oral: No Gingival or Mucosal Lesions/ Ulcerations Neck: Supple, No JVD, Negative Carotid Bruits Lungs: Air entry diminished in bilateral lung bases. No crepitation/rhonchi Cardiovascular: Regular rate, Regular Rhythm, Normal S1, Normal S2, No murmurs Abdomen: Bowel Sounds Present, Soft, Non Tender, Non-Distended : No renal angle tenderness. No suprapubic tenderness. Extremities: No edema, Capillary Refill Less than 3 Seconds Skin: Ulcer over right dorsal second toe with a scab. Ulcer of distal posterior leg with fibrotic base, painful deep to subcutaneous tissue and erythematous. No visible abscess. Chronic venous stasis with dermatitis Musculoskeletal: No Tenderness to Palpation of Joints or Extremities. Bilateral lower extremity lymphedema. Neurological: Cranial nerves II-XII grossly intact, DTR 2+/4 both lower one third legs and feet are sensitive to touch, hyperesthesia to tenderness. Psych/Mental Status: Normal Affect, Appropriate. Assessment & Plan Assessment/Plan (1) Cellulitis of right lower limb: PLAN: Patient is a 70-year-old male who presents to the hospital medicine service on consult from podiatry who is primarily managing this patient for acute right lower extremity cellulitis. 1) right lower extremity cellulitis predominantly right posterior leg ulcer with fibrotic base and right second toe chronic ulcer: Previous culture shows Serratia marcescens and MSSA. Patient on IV ceftriaxone. Started on Doxy 100 mg p.o. twice daily. MRI ordered to rule out osteomyelitis. ID consulted. No critical limb ischemia. 2. Chronic atrial fibrillation Rate is currently controlled. Patient is anticoagulated on Xarelto. Continue atenolol and Xarelto. 2) essential hypertension: BP elevated but stable, continue lisinopril. As needed hydralazine ordered. 4. Chronic venous stasis, dermatitis with chronic venous hypertensive changes: Bilateral Jaden wrap bandage. Patient used to follow wound center but stopped for fear of debridement. DVT prophylaxis - Xarelto Charges/Coding Visit Charges Inpatient E&M: 38834 Subs Hosp L2
--- NOTE | 2021-09-15 08:23 | WOUNDNOTE ---
wound photo: right 2nd toe
--- NOTE | 2021-09-15 08:24 | WOUNDNOTE ---
wound photo: right posterolateral lower leg
[2021-09-15 08:35] VITALS: BP 131/86; PULSE 63; RESP 14; TEMP 36.2; O2SAT 98
[2021-09-15] MEDS: Ceftriaxone 1 GM/50 ML BAG IV (08:52)
[2021-09-15] MEDS: Doxycycline 100 MG CAPSULE PO ×2 (08:52→20:45)
[2021-09-15] MEDS: Atenolol 50 MG Tablet PO (08:53)
--- NOTE | 2021-09-15 09:00 | MRI_ITS ---
STUDY: MRI RIGHT FOREFOOT WITHOUT CONTRAST REASON FOR EXAM: Wound/infection of second toe. TECHNIQUE: Standardized fat and water weighted pulse sequences were obtained in all 3 orthogonal planes. COMPARISON: Radiographs 09/08/2021. FINDINGS: Although there is image degradation secondary to patient motion, there is still significant diagnostically useful information available from examination. There is mild arthrosis of the metatarsophalangeal joint of the hallux with mild chondral thinning and a small subchondral cyst of the first metatarsal head (inversion recovery sagittal image 8). There is a small cyst in the tibial sesamoid (inversion recovery short axis image 19). Normal fibular sesamoid. Normal interphalangeal joint of the hallux. Normal proximal and distal phalanges of the great toe. Normal medial and lateral heads of the flexor hallucis brevis tendons. Normal flexor and extensor hallucis longus tendons. Normal second through fifth metatarsophalangeal (MTP) joints. Normal interphalangeal joints of the second through fifth toes. Normal proximal, middle and distal phalanges of the second through fifth toes. There is an intermetatarsal neuroma of the second webspace (T1 short axis images 17, 18) measuring 0.35 cm in transverse dimension. There is very mild flexor tenosynovitis of the second digit at the level of the proximal phalanx (inversion recovery short axis image 12). There is no bone edema of the metatarsals. Normal intrinsic muscles of the forefoot. There is edema in the subcutis adipose space of the second toe and dorsal aspect of the forefoot without demonstrated fluid collection to indicate soft tissue abscess. MRI/Lower Ext/No Jt/w/o IMPRESSION: Edema in the subcutis adipose space without demonstrated soft tissue abscess. Very mild flexor tenosynovitis of the second digit. Mild arthrosis of the first metatarsophalangeal joint. Intermetatarsal neuroma of the second webspace. No demonstrated osteomyelitis of the second digit. Electronically Signed: Jae Espinosa MD at 11:21 EDT ,
--- NOTE | 2021-09-15 11:48 | CASEMGMT ---
JON MI Assessment: Face to Face with pt for initial transition planning/care coordination assessment. RN HIWOT introduced self and role at [facility], pt voices understanding and consents to assessment. Pt is A/O x4 and answers all questions appropriately at this time. Pt sitting up in bed in no distress. Care providers, pharmacy, and demographics verified/updated. Admitting Dx: Cellulitis R foot PCP:Norm Specialists:Pt denies. States he was seeing the [facility] but does not know who he saw and is no longer going. [facility]: yes LW/HPOA: Pt states he has a LW/DPOA and his DPOA is his sons, see below. He is aware this is not on file at [facility] and he may bring in to be scanned into the chart. LNOK: Naeem Roberson, son; Maco Roberson, son Living Arrangements: Pt lives with son Naeem in a two story home with 2 steps to enter without a rail. Pt states his main living is on the main level. Pt reports he is I in ADL's and denies concerns at home. Transportation: Pt states he rarely drives, if he does not then his sons provide transportation. He denies transportation concerns. DME/HHC/SNF: Pt has grab bars in the bathroom, cane, FWW, hospital bed and shower chair. Pt has had HHC in the past, he does not know which agency provided it. He also states he has been to [facility] in the past. Pt states no concerns with going home at time of dc. Pt states Naeem had been providing wound care but his legs were draining shortly after the dressings were applied so he bought hand towels and just put those under his legs and let them drain. Pt states his son would do wound care again if needed. Naeem is designated as his personnel research psychologist for dc planning. Pt states he does feel weak as well. Discussed having HHC for SN and therapy. Pt will think about his. JON MI to check back. Pt states no further concerns/needs. CM to follow. Advised pt to ask CM if any further question/concerns/needs arise, voices understanding. Pt Goal: Home with possible HHC Plan: Home with possible HHC
--- NOTE | 2021-09-15 12:47 | PN_ITS ---
Subjective Subjective This 70-year-old male was seen bedside this afternoon for follow-up of ulcer of the right second toe and posterior right leg. He reports decreased pain and swelling since he has been admitted to the hospital for antibiotics and has been wearing a compression wrap. He denies fever, chill, nausea, vomiting. He had his MRI performed of the foot earlier today. Objective Data Objective Data Vital Signs: Vital Signs Temp Pulse Resp BP Pulse Ox 97.1 F L 63 14 131/86 H 98 09/15/21 08:35 09/15/21 08:35 09/15/21 08:35 09/15/21 08:35 09/15/21 08:35 Oxygen Delivery Method Room Air Weight: 108.046 kg Body Mass Index (BMI) 37.3 Intake & Output: Intake and Output for Last 24 Hours 09/13/21 09/14/21 09/15/21 23:59 23:59 23:59 Intake Total 50 / 50 50 / 50 Balance 50 / 50 50 / 50 Lab / Micro Data Result Diagrams: 09/14/21 18:58 09/14/21 18:58 Labs: Laboratory Results - last 24 hr 09/14/21 18:58: WBC 10.7, RBC 5.02, Hgb 15.4, Hct 45.1, MCV 89.8, MCH 30.7, MCHC 34.1, RDW Std Deviation 45.7 H, RDW Coeff of Naz 13.8, Plt Count 225, MPV 9.7, Immature Gran % (Auto) 0.500, Neut % (Auto) 81.8 H, Lymph % (Auto) 9.8 L, [place] % (Auto) 6.4, Eos % (Auto) 1.2, Baso % (Auto) 0.3, Absolute Neuts (auto) 8.8 H, Absolute Lymphs (auto) 1.05, Nucleated RBC % 0, ESR 16 09/14/21 18:58: Sodium 138, Potassium 3.8, Chloride 105, Carbon Dioxide 27.0, Anion Gap 6, BUN 19 H, Creatinine 1.16, Estim Creat Clear Calc 54.61, Est GFR (MDRD) Af Amer 80, Est GFR (MDRD) Non-Af 66, BUN/Creatinine Ratio 16.4, Glucose 111 H, Calcium 8.9, Total Bilirubin 1.10 H, AST 18, ALT 23, Alkaline Phosphatase 86, C-React Prot Ext Range 20.50 H, Total Protein 6.8, Albumin 3.0 L, Globulin 3.8, Albumin/Globulin Ratio 0.8 L Radiography Diagnostic Testing: Radiology Impression Tibia/Fibula X-Ray 09/14/21 19:00 IMPRESSION: Normal x-ray examination of the tibia and fibula. Electronically Signed: Norman Garcia MD at 23:17 EDT , Lower Extremity MRI 09/15/21 09:00 IMPRESSION: Edema in the subcutis adipose space without demonstrated soft tissue abscess. Very mild flexor tenosynovitis of the second digit. Mild arthrosis of the first metatarsophalangeal joint. Intermetatarsal neuroma of the second webspace. No demonstrated osteomyelitis of the second digit. Electronically Signed: Jae Espinosa MD at 11:21 EDT , Physical Exam Const alert and no apparent distress Skin Skin Narrative: There is ulceration to the dorsal right 2nd toe and the distal posterior leg - fibrotic tissue - wound posterior leg down to subcutaneous tissue, wound right 2nd toe down to fascia layer - there is pain to the ulcer sites- there is noted erythema to the right foot (diffuse). There is chronic venous insufficiency changes to bilateral LE with diffuse edema present to the lower extremity bilateral. DP and PT pulses audible via doppler right foot. CFT < 2 seconds to all toes bilateral, no evidence of acute ischemia bilateral foot. Sensation intact to light touch bilateral. No visible abscess, no crepitus, no fluctuance, no maloder bilateral foot, ankle or leg. No m/s POP or pain on ROM to the foot or ankle. Assessment & Plan Assessment/Plan (1) Cellulitis of right lower limb: (2) 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 layer exposed: (3) Non-pressure chronic ulcer of other part of right foot with necrosis of muscle: (4) Venous insufficiency: PLAN: I reviewed and discussed the case including the diagnostic data and prior chart review. He was admitted for ulcer of the right second toe and posterior right leg with noted cellulitis that failed outpatient therapy. A culture has already been obtained and patient has been started on IV ceftriaxone. He is also on doxycycline. MRI right foot for further evaluation of concern of possible right 2nd toe osteomyelitis. Right tib/fib xrays will be ordered as well. No soft tissue emphysema is noted nor was there any evidence of osteomyelitis or deep abscess of the foot. There was some tenosynovitis along the flexor tendon of the second toe. The x-rays were negative for acute findings. LEAS ordered for further evaluation of LE arterial flow. This is still pending. Wound nursing consult placed. Betadine wet-to-dry applied to the toe and Adaptic to the posterior right leg. Compression recommended with Jaden wrap and elevation. Okay to wash with soap and water. Pain control: Tylenol and Oxyir. Hospital medicine team consulted for medical evaluation/management - appreciate assistance. I will continue to monitor closely while in house. Please do not hesitate to call if you have any questions. I do not anticipate the need for podiatric surgical intervention at this time. Caitie Martinez DPM, [facility] [phone]
[2021-09-15 14:11] VITALS: BP 124/65; PULSE 65; RESP 14; TEMP 36.7; O2SAT 98
[2021-09-15] MEDS: Juven (unflavored) Packet 1 PACKET PO (18:14)
[2021-09-15] MEDS: Rivaroxaban 20 MG Tablet PO (18:15)
[2021-09-15] MEDS: Lisinopril 10 MG Tablet PO (20:45)
[2021-09-15 20:51] VITALS: BP 137/96; PULSE 69; RESP 15; TEMP 36.9; O2SAT 97
[2021-09-16] VITALS (8 sets, daily range): BP systolic 133–166; BP diastolic 71–98; PULSE 54–72; RESP 16–21; TEMP 36.4–37.1; O2SAT 95–99
[2021-09-16] MEDS: Acetaminophen 325 MG Tablet 650 MG PO (04:17)
[2021-09-16] MEDS: oxyCODONE 5 MG Tablet PO (04:18)
[2021-09-16] MEDS: 0.9% Saline Lock 10 ML Syringe IV ×2 (04:40→08:26)
[2021-09-16] MEDS: hydrALAZINE 20 MG/ML Vial 10 MG IV (04:40)
--- NOTE | 2021-09-16 05:30 | NURSING ---
Pt assisted to bathroom by ELI Seth. While transferring from bed to bathroom pt stated he was having double vision and weakness. Pt assisted on toilet, additional staff was called. Pt was assisted back to bed and vs were obtain. I furthered question pt about double vision. Pt now denies that he was having double vision but describes his vision as having a line down the middle of his left eye. He states he has had this issue on and off since he had eye surgery 5 weeks ago. He also states he has been having weakness in his legs, requiring the use of a walker and he has had many falls at home over the last few months. Denies needs at this time. Call light in reach.
--- NOTE | 2021-09-16 07:23 | PN_ITS ---
Subjective Subjective This 70-year-old male was seen bedside this afternoon for follow-up of ulcer of the right second toe and posterior right leg. He reports decreased pain and swelling. He denies fever, chill, nausea, vomiting. Objective Data Objective Data Vital Signs: Vital Signs Temp Pulse Resp BP Pulse Ox 97.8 F 62 21 H 141/71 H 97 09/16/21 04:33 09/16/21 04:40 09/16/21 04:33 09/16/21 05:45 09/16/21 04:33 Oxygen Delivery Method Room Air Weight: 108.046 kg Body Mass Index (BMI) 37.3 Intake & Output: Intake and Output for Last 24 Hours 09/14/21 09/15/21 09/16/21 23:59 23:59 23:59 Intake Total 50 / 50 50 / 50 875 / 875 Balance 50 / 50 50 / 50 875 / 875 Lab / Micro Data Result Diagrams: 09/14/21 18:58 09/14/21 18:58 Radiography Diagnostic Testing: Radiology Impression Extremity Arterial Study 09/14/21 17:36 Interpretation Summary Triphasic Doppler waveforms are noted at ankle level bilaterally. Pulse-volume recordings appear satisfactory at all levels bilaterally. Resting ankle-brachial indices are normal bilaterally. Digital-brachial indices could not be determined on either side due to the non- compressibility of the vasculature at digital level bilaterally. There is evidence of arterial calcification at digital level bilaterally. There is no evidence of significant arterial occlusive disease in the lower extremities bilaterally. ___ Ordering Physician: Villa Ortiz Performed By: Sukhi Otero RVT Lower Extremity MRI 09/15/21 09:00 IMPRESSION: Edema in the subcutis adipose space without demonstrated soft tissue abscess. Very mild flexor tenosynovitis of the second digit. Mild arthrosis of the first metatarsophalangeal joint. Intermetatarsal neuroma of the second webspace. No demonstrated osteomyelitis of the second digit. Electronically Signed: Jae Espinosa MD at 11:21 EDT , Physical Exam Const alert and no apparent distress Skin Skin Narrative: There is ulceration to the dorsal right 2nd toe and the distal posterior leg - fibrotic tissue. there is noted resolved erythema to the right foot (diffuse). There is chronic venous insufficiency changes to bilateral LE with diffuse edema present to the lower extremity bilateral. DP and PT pulses audible via doppler right foot. CFT < 2 seconds to all toes bilateral, no evidence of acute ischemia bilateral foot. Sensation intact to light touch bilateral. No visible abscess, no crepitus, no fluctuance, no maloder bilateral foot, ankle or leg. No m/s POP or pain on ROM to the foot or ankle. Assessment & Plan Assessment/Plan (1) Cellulitis of right lower limb: (2) 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 layer exposed: (3) Non-pressure chronic ulcer of other part of right foot with necrosis of muscle: (4) Venous insufficiency: PLAN: I reviewed and discussed the case including the diagnostic data and prior chart review. He was admitted for ulcer of the right second toe and posterior right leg with noted cellulitis that failed outpatient therapy. A culture has already been obtained and patient has been started on IV ceftriaxone. He is also on doxycycline. MRI right foot for further evaluation of concern of possible right 2nd toe osteomyelitis. Right tib/fib xrays will be ordered as well. No soft tissue emphysema is noted nor was there any evidence of osteomyelitis or deep abscess of the foot. There was some tenosynovitis along the flexor tendon of the second toe. The x-rays were negative for acute findings. LEAS ordered for further evaluation of LE arterial flow. It appears she does have some noncompressible vessels of the foot even though he has good waveforms and normal NATHEN numbers. Critical limb ischemia is not suspected however he does appear to have some vascular compromise. Given his chronic ulcer status I recommend outpatient vascular referral. Betadine wet-to-dry applied to the toe and Adaptic to the posterior right leg. Compression recommended with Jaden wrap and elevation. Okay to wash with soap and water. lotion ordered to maintain good skin integrity. Pain control: Tylenol and Oxyir. Hospital medicine team consulted for medical evaluation/management - appreciate assistance. I will continue to monitor closely while in house. Please do not hesitate to call if you have any questions. I do not anticipate the need for podiatric surgical intervention at this time. It is noted he refuses wound debridement today and follow up at the wound center. He can [facility] at [facility] at time of discharge. Caitie Martinez DPM, FACFAS [facility] [phone]
[2021-09-16] MEDS: Juven (unflavored) Packet 1 PACKET PO ×2 (07:56→16:50)
[2021-09-16] MEDS: Nystatin Powder 15gm Bottle 1 APPLIC TOPICAL (08:00)
[2021-09-16] MEDS: Ceftriaxone 1 GM/50 ML BAG IV (08:26)
[2021-09-16] MEDS: Atenolol 50 MG Tablet PO (09:56)
[2021-09-16] MEDS: Doxycycline 100 MG CAPSULE PO (09:56)
[2021-09-16] MEDS: Ammonium Lactate 225 gm Bottle 1 APPLIC TOPICAL (10:07)
[2021-09-16 11:56] LABS: Bedside Glucose 128 mg/dL (74-106)
--- NOTE | 2021-09-16 11:58 | PN.HOSP_ITS ---
Subjective Subjective Follow-up for right foot infection. Objective Data Objective Data Vital Signs: Vital Signs Temp Pulse Resp BP Pulse Ox 97.6 F L 64 18 148/86 H 96 09/16/21 08:03 09/16/21 08:06 09/16/21 08:03 09/16/21 08:03 09/16/21 08:03 Oxygen Delivery Method Room Air Weight: 238 lb 3.21 oz Body Mass Index (BMI) 37.3 Intake & Output: Intake and Output for Last 24 Hours 09/14/21 09/15/21 09/16/21 23:59 23:59 23:59 Intake Total 50 / 50 50 / 50 925 / 925 Balance 50 / 50 50 / 50 925 / 925 Lab / Micro Data Result Diagrams: 09/14/21 18:58 09/14/21 18:58 Labs: Laboratory Results - last 24 hr 09/16/21 11:48: POC Glucose 128 H Radiography Diagnostic Testing: Radiology Impression Extremity Arterial Study 09/14/21 17:36 Interpretation Summary Triphasic Doppler waveforms are noted at ankle level bilaterally. Pulse-volume recordings appear satisfactory at all levels bilaterally. Resting ankle-brachial indices are no rmal bilaterally. Digital-brachial indices could not be determined on either side due to the non-compressibility of the vasculature at digital level bilaterally. There is evidence of arterial calcification at digital level bilaterally. There is no evidence of significant arterial occlusive disease in the lower extremities bilaterally. Lower Extremity MRI 09/15/21 09:00 IMPRESSION: Edema in the subcutis adipose space without demonstrated soft tissue abscess. Very mild flexor tenosynovitis of the second digit. Mild arthrosis of the first metatarsophalangeal joint. Intermetatarsal neuroma of the second webspace. No demonstrated osteomyelitis of the second digit. Electronically Signed: Jae Espinosa MD at 11:21 EDT , Physical Exam Narrative Physical exam General: Alert, Oriented x3, Cooperative HEENT: Atraumatic, PERRLA, EOMI, Normocephalic Oral: No Gingival or Mucosal Lesions/ Ulcerations Neck: Supple, No JVD, Negative Carotid Bruits Lungs: Air entry diminished in bilateral lung bases. No crepitation/rhonchi Cardiovascular: Regular rate, Regular Rhythm, Normal S1, Normal S2, No murmurs. 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 Abdomen: Bowel Sounds Present, Soft, Non Tender, Non-Distended : No renal angle tenderness. No suprapubic tenderness. Extremities: No edema, Capillary Refill Less than 3 Seconds Skin: Ulcer over right dorsal second toe with a scab. Ulcer of distal posterior leg with fibrotic base, painful deep to subcutaneous tissue and erythematous. No visible abscess. Chronic venous stasis with dermatitis Musculoskeletal: No Tenderness to Palpation of Joints or Extremities. Bilateral lower extremity lymphedema. Neurological: Cranial nerves II-XII grossly intact, DTR 2+/4 both lower one third legs and feet are sensitive to touch, hyperesthesia to tenderness. Psych/Mental Status: Normal Affect, Appropriate. Const alert, oriented x3 and no apparent distress HEENT head/scalp atraumatic and moist oral mucous membranes Eyes PERRL, EOMs intact bilaterally and conjunctivae normal Neck no lymphadenopathy, supple and no JVD Resp normal respiratory effort, no retractions and no use of accessory muscles Cardio regular rate, regular rhythm and no JVD GI normal to inspection, nondistended, normoactive bowel sounds and soft to palpation Extremity Extremity Narrative: Bilateral lower extremity appropriately bandaged.. Left lower extremity unremarkable. Skin no rashes or lesions noted, no wounds and skin turgor normal Neuro CN's II-XII intact bilaterally Psych affect normal Assessment & Plan Assessment/Plan (1) Cellulitis of right lower limb: PLAN: Patient is a 70-year-old male who presents to the hospital medicine service on consult from podiatry who is primarily managing this patient for acute right lower extremity cellulitis. 1) right lower extremity cellulitis predominantly right posterior leg ulcer with fibrotic base and right second toe chronic ulcer: Previous culture shows Serratia marcescens and MSSA. Patient on IV ceftriaxone. Started on Doxy 100 mg p.o. twice daily. MRI ordered to rule out osteomyelitis. ID consulted. No critical limb ischemia. 09/16: MRI right foot does not show evidence of osteomyelitis or deep abscess of the foot. Tenosynovitis of the right second toe. LEAS shows noncompressible distal arteries of feet otherwise normal NATHEN, triphasic waveform forms at ankle levels. Discussed with the sheet metal duct installer helper. 2. Chronic atrial fibrillation Rate is currently controlled. Patient is anticoagulated on Xarelto. Continue atenolol and Xarelto. 2) essential hypertension: BP elevated but stable, continue lisinopril. As needed hydralazine ordered. 4. Chronic venous stasis, dermatitis with chronic venous hypertensive changes: Bilateral Jaden wrap bandage. Patient used to follow wound center but stopped for fear of debridement. DVT prophylaxis - Xarelto I called Dr. Martinez waiting for callback I think patient is stable for discharge on antibiotic. ID for recommendation on discharge antibiotics. Charges/Coding Visit Charges Inpatient E&M: 21067 Subs Hosp L2
--- NOTE | 2021-09-16 14:45 | PCM.CONS.GEN ---
Assessment & Plan Assessment/Plan (1) Cellulitis of right lower limb: PLAN: Wound cx with mssa and serratia. Improved, no osteo seen on MRI. Ok for home with one more week omnicef. Will follow as needed, thank you. Overdue for covid booster, he is not interested. HPI Consult Data Date of Consult: 09/16/21 HPI Narrative HPI Narrative: TURNER YAN, is a 70 M who presented with about 2 weeks progressive R 2nd toe wounds with pain, redness, swelling. Started on levaquin/bactrim for MSSA and serratia (+) cx. Had some hallucinations at home. Admitted here, feeling better, toe improved on doxy/ceftriaxone. Full ROS performed and neg except as noted above. Overdue for covid booster. 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, nasal cavity and accessory sinuses BPH (benign prostatic hyperplasia) Cardiac murmur, unspecified Cervical disc disease Dyspnea on minimal exertion Essential (primary) hypertension Former smoker GERD (gastroesophageal reflux disease) Hyperlipidemia New onset atrial fibrillation (03/24/20) Obesity ANDREE (obstructive sleep apnea) Pain of left lower extremity due to injury Skin ulcer of left great toe with fat layer exposed Traumatic hematoma of left lower leg Home Medications atenolol 50 mg PO DAILY 08/23/14 [History Last Taken 11/01/18 08:30] acetaminophen 500 mg PO Q4H PRN PRN tab 07/26/18 [Rx Last Taken 07/28/18] lisinopril 10 mg tablet 10 mg PO QHS #90 tab 03/31/20 [Rx Last Taken Unknown] rivaroxaban [Xarelto] 20 mg PO DAILY 06/07/21 [History Last Taken Unknown] cefdinir 300 mg PO BID #14 cap 09/16/21 [Rx Last Taken Unknown] Allergy/AdvReac Type Severity Reaction Status Date / Time apixaban [From Eliquis] AdvReac Intermediate Wet the Verified 06/07/21 10:25 bed: found out later had UTI ibuprofen [From Motrin] AdvReac Nausea Verified 06/07/21 10:25 Family History (Reviewed 04/21/21 @ 16:14 by Hany Bernal PROTECTIVE SIGNAL REPAIRER HELPER, PROTECTIVE SIGNAL REPAIRER HELPER-C) Mother CAD (coronary artery disease) Hypertension History of cardiac radiofrequency ablation Sister Hypertension Other Arthritis Surgical History H/O cervical spine surgery History of bursectomy History of carpal tunnel release History of carpal tunnel surgery History of coronary artery stent placement (11/29/10) History of fusion of cervical spine History of herniorrhaphy History of removal of cyst History of transurethral resection of prostate Social History Smoking Status: Former smoker alcohol intake: current details: occasional substance use type: does not use additional social history: DOES NOT TAKE ASPIRIN DOES NOT TAKE IBUPROFEN Physical Exam Const alert, oriented x3 and no apparent distress General Appearance: cooperative Exam Limitations: no limitations HEENT normocephalic and head/scalp atraumatic Eyes PERRL and EOMs intact bilaterally Neck supple and No nodes Resp normal air movement and clear to auscultation bilaterally Cardio regular rate and regular rhythm GI soft to palpation, non-tender and non-distended Skin Skin Narrative: reviewed photos Neuro CN's II-XII intact bilaterally Lab / Micro Data Result Diagrams: 09/14/21 18:58 09/14/21 18:58 Labs: Laboratory Results - last 24 hr 09/16/21 11:48: POC Glucose 128 H Radiology Impression Extremity Arterial Study 09/14/21 17:36 Interpretation Summary Triphasic Doppler waveforms are noted at ankle level bilaterally. Pulse-volume recordings appear satisfactory at all levels bilaterally. Resting ankle-brachial indices are normal bilaterally. Digital-brachial indices could not be determined on either side due to the non-compressibility of the vasculature at digital level bilaterally. There is evidence of arterial calcification at digital level bilaterally. There is no evidence of significant arterial occlusive disease in the lower extremities bilaterally. Ordering Physician: Villa Ortiz Performed By: Sukhi Otero RVT
--- NOTE | 2021-09-16 15:20 | NURSING ---
Surgical Shoe given this morning per orders. Pt is aware that he needs to use it everytime he is OOB and putting weight on that RLE.
--- NOTE | 2021-09-16 16:22 | CASEMGMT ---
RN CM in to pt room. Pt states he does not feel that he needs HHC. States his son will continue to do his dressing changes. He states he is weak but does not want therapy in the home. TC to son Naeem, read him the current wound care orders. He states he is comfortable to continue these dressing changes as long as pt lets him. He denies need for HHC if he does dressing changes. He states he will be in later today. Spoke with ID, pt to go home on PO atb.
[2021-09-16] MEDS: Rivaroxaban 20 MG Tablet PO (16:52)
--- NOTE | 2021-09-16 16:53 | DS.PCM_ITS ---
Providers Date of Admission: 09/14/21 Primary Care Physician: Dr. Low Zheng MD Consultations 09/14/21 17:42 Consult: Hospitalist Routine Consulting Provider: [facility] Reason for Consult: medical management EMERGENT Consult: No Notified: Yes Date Notified: 09/14/21 Time Notified: 17:42 Method of Notification: Verbal Consult: Onc/Wound/laboratory apparatus glass grinder Routine Comment: Reason for Consult:: wounds lower extremity 09/15/21 10:00 Consult: Infectious Disease Routine Consulting Provider: Naseem Brothers Reason for Consult: RLE cellulitis with ulcer, osteo? EMERGENT Consult: No Notified: Yes Date Notified: 09/15/21 Time Notified: 10:00 Method of Notification: Verbal Reason For Visit: CELLULITIS R FOOT Diagnosis Discharge Diagnosis (1) Cellulitis of right lower limb: Status: Acute Code(s): L03.115 - Cellulitis of right lower limb Medications at Discharge Home Medications atenolol 50 mg PO DAILY 08/23/14 acetaminophen 500 mg PO Q4H PRN PRN tab 07/26/18 lisinopril 10 mg tablet 10 mg PO QHS #90 tab 03/31/20 rivaroxaban [Xarelto] 20 mg PO DAILY 06/07/21 cefdinir 300 mg PO BID #14 cap 09/16/21 Hospital Course Operations None Summary of Care Provided Minutes Spent on Discharge: 20 Hospital Course: Patient admitted for cellulitis and ulceration of the right lower extremity in which he failed outpatient therapy. He responded well to IV antibiotics. Demonstrated improvements with wound care. He was transitioned to oral antibiotic per infectious disease consultation. MRI was negative for osteomyelitis. He was also worked up for peripheral vascular disease and it appears that he does not have critical limb ischemia however there are noncompressible vessels. He will go for outpatient vascular referral. He will also go for outpatient venous insufficiency work-up including Doppler with the reflux evaluation that can only be done in outpatient setting. He also did well with compression and elevation. Physical Exam Const alert and no apparent distress Skin Skin Narrative: There is ulceration to the dorsal right 2nd toe and the distal posterior leg - fibrotic tissue. there is noted resolved erythema to the right foot (diffuse). There is chronic venous insufficiency changes to bilateral LE with diffuse edema present to the lower extremity bilateral. DP and PT pulses audible via doppler right foot. CFT < 2 seconds to all toes bilateral, no evidence of acute ischemia bilateral foot. Sensation intact to light touch bilateral. No visible abscess, no crepitus, no fluctuance, no maloder bilateral foot, ankle or leg. No m/s POP or pain on ROM to the foot or ankle. Weight / BMI Weight Weight: 108.046 kg Body Mass Index (BMI) 37.3 ABG / Lab / Microbiology Data Result Diagrams: 09/14/21 18:58 09/14/21 18:58 Laboratory: Laboratory Results - last 24 hr 09/16/21 11:48: POC Glucose 128 H Radiography Diagnostic Testing: Radiology Impression Extremity Arterial Study 09/14/21 17:36 Interpretation Summary Triphasic Doppler waveforms are noted at ankle level bilaterally. Pulse-volume recordings appear satisfactory at all levels bilaterally. Resting ankle-brachial indices are normal bilaterally. Digital-brachial indices could not be determined on either side due to the non-compressibility of the vasculature at digital level bilaterally. There is evidence of arterial calcification at digital level bilaterally. There is no evidence of significant arterial occlusive disease in the lower extremities bilaterally. Ordering Physician: Villa Ortiz Performed By: Sukhi Otero Brandt D/C Instructions Discharge Diet: No restrictions Weight Bearing Status: Full weight bearing (wear right surgical shoe) Keep extremity elevated above heart level: Right Leg Call your doctor if your incision/area has: Continuous Slow Oozing, Sudden Increased Bleeding, Increased Pain/ Swelling, Increased Redness and Foul Sme lling Discharge Call your doctor if you observe: Fever of 101 or Higher, Calf discomfort and Uncontrolled pain Cleanse incision/area with: Soap & Water Additional Dressing/Incision Instructions: change dressing daily Please Follow Up With: Villa Ortiz DPM When: 1 week Meaningful Use Info Meaningful Use Diagnoses (Choose all that apply): None applicable Discharge Plan Admission Admit Date/Time: 09/14/21 17:29 Primary Reason for Your Visit: right foot and leg infection Attending Provider: Villa Ortiz Primary Care Provider: Low Zheng Chi Consulting Providers: Ayleen Fair ; Alfonso Sutton ; Ruthie Matthews ; Radha Spann ; Carmelita Trinh NP ; Hany Bernal NP ; Amina Mancini ; Brian Durham ; Naseem Brothers Instructions Additional Instructions / Restrictions: Wash right leg ulcers with soap and water. Avoid soaking. Change right toe dressing with Betadine gauze daily. Change right leg dressing with Adaptic and gauze daily. Continue Jaden wrap application from foot to leg and elevate lower extremity. Discharge Orders/Prescriptions Prescriptions: New cefdinir 300 mg capsule 300 mg PO BID Qty: 14 RF: 0 No Action lisinopril 10 mg tablet 10 mg PO QHS Qty: 90 RF: 4 atenolol 50 MG tablet 50 mg PO DAILY RF: 0 acetaminophen 325 MG tablet 500 mg PO Q4H PRN PRN (Reason: Mild-Moderate Pain (1-09/06)) RF: 0 Xarelto 10 mg Tablet 20 mg PO DAILY RF: 0 Referrals / Follow Up: Jose Sands MD [STAFF PHYSICIAN] - Within 1 Month Villa Ortiz DPM [STAFF PHYSICIAN] - In 1 Week Low Zheng Chi, MD [Primary Care Provider] - Disposition Disposition (needs filled in before D/C Order can be placed): Home, Self Care
== END 2021-09-16 18:20 | disposition home or self-care (01) | DRG 603 ==
PROVIDERS: Admitting Provider Podiatrist; PCP Family Medicine Geriatric Medicine; Visit Provider Podiatrist
DX: L03.115 Cellulitis of right lower limb (principal); L97.212 Non-pressure chronic ulcer of right calf with fat layer exposed; I48.20 Chronic atrial fibrillation, unspecified; M86.9 Osteomyelitis, unspecified; L97.513 Non-pressure chronic ulcer of other part of right foot with necrosis of muscle; G62.9 Polyneuropathy, unspecified; N40.0 Benign prostatic hyperplasia without lower urinary tract symptoms; G47.33 Obstructive sleep apnea (adult) (pediatric); E78.5 Hyperlipidemia, unspecified; I25.10 Atherosclerotic heart disease of native coronary artery without angina pectoris; I10 Essential (primary) hypertension; M65.89 Other synovitis and tenosynovitis, multiple sites; I87.2 Venous insufficiency (chronic) (peripheral); L30.9 Dermatitis, unspecified; Z79.01 Long term (current) use of anticoagulants; L03.031 Cellulitis of right toe; Z87.891 Personal history of nicotine dependence
CPT/HCPCS: 36415; 73590; 73718; 80053; 82962; 85025; 85652; 86140; 87040; 93923; 97162; 97530; 97802; 99251; A4216; G0463

== ENCOUNTER 2021-10-27 18:56 | Emergency (ER) | payer MEDICARE, SELFPAY ==
[2021-10-27 18:57] VITALS: BP 157/125; PULSE 72; RESP 18; TEMP 36.5; O2SAT 96; BMI 41.3
[2021-10-27] MEDS: Mixture 30 ML Bottle 20 ML TOPICAL (19:17)
--- NOTE | 2021-10-27 19:25 | EX.ED.DYSGE1 ---
HPI History of Present Illness Chief Complaint: Nosebleed Detail of Chief Complaint: Spontaneous nosebleed right Informant: patient Onset/Context/Timing Onset: Hours Context: Sudden Onset Timing: Continuous Quality: Bright red blood per right naris Location: Right knee nurse Current Severity: Mild Maximum Severity: Severe Worsened by: Patient on anticoagulant, Xarelto Relieved by: Pressure Associated Symptoms Associated Symptoms: None Narrative Narrative: Patient is a 70-year-old male on Xarelto who presents with spontaneous nosebleed. Blood from right naris. This occurred while watching TV. There is no history of trauma. He has not recently blown his nose or picked his nose. He has a remote history of epistaxis x1. He has no other complaints. 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, nasal cavity and accessory sinuses BPH (benign prostatic hyperplasia) Cardiac murmur, unspecified Cervical disc disease Dyspnea on minimal exertion Essential (primary) hypertension Former smoker GERD (gastroesophageal reflux disease) Hyperlipidemia New onset atrial fibrillation (03/24/20) Obesity ANDREE (obstructive sleep apnea) Pain of left lower extremity due to injury Skin ulcer of left great toe with fat layer exposed Traumatic hematoma of left lower leg Home Medications atenolol 50 mg tablet 50 mg PO DAILY HTN 08/23/14 [History Last Taken 11/01/18 08:30] acetaminophen 325 mg tablet 500 mg PO Q4H PRN PRN Mild-Moderate Pain (1-5/10) 07/26/18 [Rx Last Taken 07/28/18] lisinopril 10 mg tablet 10 mg PO QHS HTN #90 tabs 03/31/20 [Rx Last Taken Unknown] rivaroxaban 10 mg tablet (Xarelto) 20 mg PO DAILY CIRCULATION 06/07/21 [History Last Taken Unknown] cefdinir 300 mg capsule 300 mg PO BID #14 caps 09/16/21 [Rx Last Taken Unknown] amoxicillin 500 mg tablet 500 mg PO TID #12 tabs 10/27/21 [Rx Last Taken Unknown] Allergy/AdvReac Type Severity Reaction Status Date / Time apixaban [From Eliquis] AdvReac Intermediate Wet the Verified 10/27/21 19:00 bed: found out later had UTI ibuprofen [From Motrin] AdvReac Nausea Verified 10/27/21 19:00 Family History Mother CAD (coronary artery disease) Hypertension History of cardiac radiofrequency ablation Sister Hypertension Other Arthritis Surgical History H/O cervical spine surgery History of bursectomy History of carpal tunnel release History of carpal tunnel surgery History of coronary artery stent placement (11/29/10) History of fusion of cervical spine History of herniorrhaphy History of removal of cyst History of transurethral resection of prostate Social History (Updated 10/27/21 @ 19:[address] Rudy Hernandez MD) household members: none Smoking Status: Former smoker alcohol intake: current details: occasional substance use type: does not use additional social history: DOES NOT TAKE ASPIRIN DOES NOT TAKE IBUPROFEN ROS ROS ED Constitutional Constitutional ED: Denies chills, fever(s), subjective, sweats or weight loss Eyes Eyes: Denies blurry vision, change in vision or diplopia ENT ENT ED: Reports other Details: Epistaxis per HPI ; Denies ear pain, rhinorrhea or sore throat Cardiovascular Cardiovascular: Denies chest pain Respiratory/Chest Respiratory/Chest: Denies dyspnea Gastrointestinal Gastrointestinal: Denies nausea or vomiting Integumentary Reports rash and other Details: Venous stasis dermatitis ; Denies abscess or Abrasions Hematologic/Lymphatic Hematologic/Lymphatic: Reports as per HPI, easy bleeding and easy bruising; Denies anemia or lymphadenopathy Allergic/Immunologic Allergic/Immunologic ED: Denies mouth swelling or tongue swelling EXAM Physical Exam Const Vital Signs: 10/27/21 18:57 Temperature 97.7 F L Temperature Source Temporal Pulse Rate 72 Respiratory Rate 18 Blood Pressure 157/125 H Blood Pressure Mean 135 Pulse Ox 96 Oxygen Delivery Method Room Air Positive well nourished, well developed and obese; Negative for cachectic, contractures or unkempt General Appearance ED: well developed and NAD; Negative for unkempt, cachectic, contractures or pallor Nutritional Appearance: obese; Negative for cachectic HEENT Reports moist mucous membranes HEENT Narrative: Patient has blood noted right vestibule. There is inflammation with no bleeding noted over the left septum. There is evidence of dried blood in the posterior pharynx. Uvula is midline. Negative for trauma or tenderness Eyes PERRL and EOMs intact bilaterally General Eye ED: Negative for pale conjunctiva or scleral icterus Neck no lymphadenopathy Resp normal respiratory effort and clear to auscultation bilaterally Cardio regular rate, regular rhythm, S1 normal heart sound and S2 normal heart sound Back/Spine no CVA tenderness Extremity Negative for normal to inspection Extremity Narrative: Venous stasis dermatitis with stigmata of peripheral arterial disease Neuro oriented x3, CN's II-XII intact bilaterally and no sensory deficits noted Sensorium / Orientation: alert Motor Exam: strength 5/5 throughout Psych Appearance: Negative for unkempt Skin No no rashes or lesions noted and No no wounds General Skin Exam: Negative for jaundice or pallor Lesions: No lesion noted Rashes: No rashes noted MDM MDM MDM Narrative Medical decision making narrative: Patient with epistaxis. Since he is on Xarelto and there is no obvious bleeding source will place Rhino Rocket. Cotton was saturated with [place] mix. This was loosely placed into the right vestibule. Plan is to remove in 10 minutes and apply packing. Cauterizations not recommended with patient on anticoagulant. He has no allergies to antibiotics. Procedures Other Procedures Procedure(s): Right nare/vestibule was anesthetized using [place] solution. A 5.5 cm Rhino Rocket was placed. There was slight difficulty inserting the Rhino Rocket. Patient was reassessed 15 minutes later. There is no bleeding. We will have nurse ambulate if he does not bleed after ambulation and 30-minute observation discharged home with prescription for antibiotics and follow-up with ENT. Discharge Plan Triage Chief Complaint: Nosebleed ED Provider: Rudy Hernandez Dx/Rx/DC Orders Clinical Impression: Acute anterior epistaxis, Anticoagulant long-term use Instructions: ED Epistaxis (Adult) Prescriptions: New amoxicillin 500 mg tablet 500 mg PO TID Qty: 12 0RF No Action lisinopril 10 mg tablet 10 mg PO QHS Qty: 90 4RF atenolol 50 MG tablet 50 mg PO DAILY Label Comments: blood pressure/heart health acetaminophen 325 MG tablet 500 mg PO Q4H PRN PRN (Reason: Mild-Moderate Pain (1-5/10)) 0RF Xarelto 10 mg Tablet 20 mg PO DAILY cefdinir 300 mg capsule 300 mg PO BID Qty: 14 0RF Primary Care Provider: Low Zheng Chi Referrals: Turner Philip MD [STAFF PHYSICIAN] - 3-5 Days Low Zheng Chi, MD [Primary Care Provider] - Disposition Disposition: Home, Self Care
[2021-10-27] MEDS: AMOXICILLIN 500 MG CAPSULE PO (20:16)
[2021-10-27 20:44] VITALS: BP 190/140; PULSE 72; RESP 18; O2SAT 96
== END 2021-10-27 20:44 | disposition home or self-care (01) ==
PROVIDERS: Emergency Provider Emergency Medicine; PCP Family Medicine Geriatric Medicine; Visit Provider Emergency Medicine
DX: R04.0 Epistaxis (principal); I10 Essential (primary) hypertension; Z79.01 Long term (current) use of anticoagulants; I25.10 Atherosclerotic heart disease of native coronary artery without angina pectoris; E78.5 Hyperlipidemia, unspecified; Z87.891 Personal history of nicotine dependence
CPT/HCPCS: 30901; 99284

== ENCOUNTER 2021-12-12 10:51 | Inpatient (IN) | payer MEDICARE, SELFPAY ==
[2021-12-12] VITALS (9 sets, daily range): BP systolic 141–166; BP diastolic 87–106; PULSE 66–96; RESP 16–20; TEMP 36.1–36.7; O2SAT 93–99; BMI 40.0; BMI 39.6
--- NOTE | 2021-12-12 11:13 | EDS_ITS ---
HPI History of Present Illness Chief Complaint: Cellulitis Narrative Narrative: Patient presents with pain, swelling, and burning along with drainage from his right lower extremity for the past month. He denies any fevers or chills. He has had cellulitis and ulcers of his right foot, and his left lower extremity in the past. He states he was seen by his primary care physician and referred to the foot and ankle specialists. He was recently admitted a few months ago in August for few days for lower extremity infections and ulcerations. He does take a blood thinner for atrial fibrillation. He denies past medical history of diabetes. He states that he has pain and swelling of his right lower extremity with purulent drainage. He denies any fevers or chills. No nausea or vomiting. No other symptoms. He has been trying to take care of his chronic lymphedema and ulcers at home through the help of his son, but is gotten to be too much for him. Additionally, he states that he has not seen anyone in the wound care center because he states I do not like them. 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, nasal cavity and accessory sinuses BPH (benign prostatic hyperplasia) Cardiac murmur, unspecified Cervical disc disease Dyspnea on minimal exertion Essential (primary) hypertension Former smoker GERD (gastroesophageal reflux disease) Hyperlipidemia New onset atrial fibrillation (03/24/20) Obesity ANDREE (obstructive sleep apnea) Pain of left lower extremity due to injury Skin ulcer of left great toe with fat layer exposed Traumatic hematoma of left lower leg Home Medications atenolol 50 mg tablet 50 mg PO DAILY HTN 08/23/14 [History Last Taken 12/11/21] acetaminophen 325 mg tablet 500 mg PO Q4H PRN PRN Mild-Moderate Pain (1-5/10) 07/26/18 [Rx Last Taken 12/11/21] lisinopril 10 mg tablet 10 mg PO QHS HTN #90 tabs 03/31/20 [Rx Last Taken 12/11/21] rivaroxaban 10 mg tablet (Xarelto) 20 mg PO DAILY CIRCULATION 06/07/21 [History Last Taken 12/11/21] Allergy/AdvReac Type Severity Reaction Status Date / Time apixaban [From Eliquis] AdvReac Intermediate Wet the Verified 12/12/21 10:52 bed: found out later had UTI ibuprofen [From Motrin] AdvReac Nausea Verified 12/12/21 10:52 Family History Mother CAD (coronary artery disease) Hypertension History of cardiac radiofrequency ablation Sister Hypertension Other Arthritis Surgical History H/O cervical spine surgery History of bursectomy History of carpal tunnel release History of carpal tunnel surgery History of coronary artery stent placement (11/29/10) History of fusion of cervical spine History of herniorrhaphy History of removal of cyst History of transurethral resection of prostate Social History household members: none Smoking Status: Former smoker alcohol intake: current details: occasional substance use type: does not use additional social history: DOES NOT TAKE ASPIRIN DOES NOT TAKE IBUPROFEN ROS ROS ED ROS Narrative Constitutional: No fever, no chills. HEENT: No sore throat. No neck pain. No loss of vision. No rhinorrhea. Cardiovascular: No chest pain. No palpitations. No pedal edema. Respiratory: No cough, no shortness of breath. Abdominal: No abdominal pain. No nausea. No vomiting. Genitourinary: No dysuria. No hematuria. Musculoskeletal: No myalgias. No arthralgias. Neurologic: No headaches. No dizziness. No lightheadedness. Skin: No rash. Positive redness with purulent drainage to right lower extremity and second toe on right foot. Mild change in color to left lower extremity. Psychiatric: No depression. No anxiety. EXAM Physical Exam Narrative Exam Narrative: Afebrile. Vital signs noted. HEENT: Normocephalic. Atraumatic. PERRL, EOMI. Neck soft and supple. No point tenderness or step off. Cardiovascular: Regular rate and rhythm. No murmurs, rubs, or gallops appreciated. Respiratory: No tachypnea. Lungs clear to auscultation bilaterally. Gastrointestinal: Abdomen soft, nontender, with normoactive bowel sounds. No rebound or guarding. Neurological: Awake. Alert. Nonfocal, nonlateralizing. Skin: No rash. Positive ulcerations on posterior tibia/fibula and on anterior tibial aspect with mild clear to yellow drainage. Small ulcer on toe of right foot. Musculoskeletal: No pedal edema. Full range of motion extremities. Const Vital Signs: 12/12/21 10:52 12/12/21 10:54 12/12/21 11:54 Temperature 97 F L 97 F L 97.6 F L Temperature Source Temporal Temporal Temporal Pulse Rate 66 96 86 Respiratory Rate 18 20 H 20 H Blood Pressure 166/106 H 166/106 H 158/98 H Blood Pressure Mean 126 126 118 Pulse Ox 93 94 95 Oxygen Delivery Method Room Air Room Air Room Air 12/12/21 12:54 Temperature 98.1 F Temperature Source Temporal Pulse Rate 91 Respiratory Rate 20 H Blood Pressure 162/87 H Blood Pressure Mean 112 Pulse Ox 95 Oxygen Delivery Method Room Air MDM MDM MDM Narrative Medical decision making narrative: Comprehensive work-up was pursued. Imaging will be obtained to look for gas in the tissue of his right tibia and fibula. He was administered morphine for analgesia. He does not meet SIRS criteria through his vital signs currently. I will obtain a CBC, CMP, and lactic acid along with blood cultures. He was administered Zosyn and vancomycin. He was also administered morphine for analgesia. Patient has normal white count of 8.2, hemoglobin normal at 14.9, hematocrit 45.0. Electrolyte panel shows chloride of 108, lactic acid 1.0, he was administered Zosyn and vancomycin. Blood cultures were obtained. I do not feel that there is sepsis present as he has a normal white count, normal vitals and a normal lactic acid. X-rays were obtained of the right foot and of the right tibia and fibula interpreted by myself. There is no evidence of fracture or osteomyelitis. There is noted soft tissue swelling. I discussed patient with the hospitalist, Dr. Smith, who will admit the patient to the general medical floor. I will also inform podiatry as he was admitted the last time to their service. Patient was discussed with Dr. Cardenas. Disposition is admit in stable condition. Lab Data Attestation: I reviewed the patient's lab results. Labs: Laboratory Results - last 24 hr 12/12/21 12/12/21 12/12/21 11:30 11:30 11:30 WBC 8.2 RBC 4.98 Hgb 14.9 Hct 45.0 MCV 90.4 MCH 29.9 MCHC 33.1 RDW Std Deviation 45.4 H RDW Coeff of Naz 13.9 Plt Count 260 MPV 9.2 Immature Gran % (Auto) 0.400 Neut % (Auto) 74.6 H Lymph % (Auto) 14.2 L [place] % (Auto) 7.2 Eos % (Auto) 3.5 Baso % (Auto) 0.1 Absolute Neuts (auto) 6.1 Absolute Lymphs (auto) 1.16 Nucleated RBC % 0 Sodium 140 Potassium 3.6 Chloride 108 H Carbon Dioxide 25.0 Anion Gap 7 BUN 15 Creatinine 0.93 Estim Creat Clear Calc 64.79 Est GFR (MDRD) Af Amer 102 Est GFR (MDRD) Non-Af 84 BUN/Creatinine Ratio 16.1 Glucose 110 H Lactic Acid 1.0 Calcium 9.0 Total Bilirubin 0.70 AST 16 ALT 26 Alkaline Phosphatase 88 Total Protein 7.2 Albumin 3.2 Globulin 4.0 Albumin/Globulin Ratio 0.8 L Radiography Diagnostic Testing: Clinical Impression(s) from Imaging Studies Foot X-Ray 12/12/21 12:05 IMPRESSION: No acute fracture or dislocation in the right foot on these 2 AP and lateral views. No definite radiographic evidence of osteomyelitis. Calcaneal plantar spur. Diffuse soft tissue swelling on the dorsum of the foot. Electronically Signed: Marlon Gann MD at 12:51 EDT Reading Location ID and State: [facility] / [place] Tel , Service support , Tibia/Fibula X-Ray 12/12/21 12:05 IMPRESSION: No acute fracture or dislocation in the right tibia and fibula. No radiographic evidence of osteomyelitis. Calcaneal plantar spur. Diffuse soft tissue swelling. Electronically Signed: Marlon Gann MD at 12:18 EDT [place] Location ID and State: [facility] / [place] Tel , Service support , Discharge Plan Dx/Rx/DC Orders Clinical Impression: Cellulitis of right leg, Lymphedema, Toe ulcer, Leg pain Disposition Disposition: Acute Care Hospital [facility] Discharge Date/Time: 12/12/21 14:08
[2021-12-12 11:37] LABS: Absolute Lymphocyte Count 1.16 X10^3/uL (0.83-4.51); Absolute Neutrophil Count 6.1 X10^3/uL (2.0-7.7); Basophil# 0.01 X10^3/uL; Basophil% 0.1 % (0-1); Eosinophil# 0.29 X10^3/uL; Eosinophils% 3.5 % (0-5); Hemoglobin 14.9 g/dL (13.0-16.5); Lymphocyte # 1.16 X10^3/ul (0.83-4.51); Lymphocyte % 14.2 % (19-41); Mean Corp Hgb Conc 33.1 g/dL (32-36); Mean Corpuscular Hgb 29.9 pg (27.0-32.0); Mean Corpuscular Volume 90.4 fL (80-94); Mean Platelet Vol. 9.2 fl (6.2-12.0); Monocyte# 0.59 X10^3/uL; Monocyte% 7.2 % (0-10); NRBC Flagged by Analyzer 0 % (0-5); Neutrophil # 6.09 X10^3/uL (2.7-7.7); Neutrophil % 74.6 % (47-70); Platelet Count 260 K/mm3 (150-450); RBC Distribution Width CV 13.9 % (11.6-14.6); RBC Distribution Width SD 45.4 fl (35.1-43.9); Red Blood Count 4.98 M/mm3 (4.6-6.2); White Blood Count 8.2 K/mm3 (4.4-11.0)
[2021-12-12] MEDS: Morphine 4 MG/ML Syringe IV (11:43)
[2021-12-12 11:56] LABS: ALB/GLOB Ratio 0.8 RATIO (0.9-2.4); AST(SGOT) 16 U/L (15-37); Alanine Aminotransfer ALT/SGPT 26 U/L (16-61); Albumin, Serum 3.2 g/dL (3.2-5.0); Alkaline Phosphatase 88 U/L (45-117); Anion Gap 7 (5-15); BUN 15 mg/dL (7-18); BUN/Creat Ratio 16.1 RATIO (10-20); Chloride 108 mmol/L (98-107); Creatinine, Serum 0.93 mg/dL (0.70-1.30); EST Glomerular Filtration Rate 84 mL/min (>60); Est Glom Filt Rate - Afr Amer 102 mL/min (>60); Estimated Creatinine Clearance 64.79 ml/min; Glucose 110 mg/dL (74-106); Potassium 3.6 mmol/L (3.5-5.1); Protein, Total 7.2 g/dL (6.4-8.2); Sodium Level 140 mmol/L (136-145)
--- NOTE | 2021-12-12 12:05 | RAD_ITS ---
STUDY: X-RAY - RIGHT TIBIA AND FIBULA REASON FOR EXAM: Male, 71 years old. Pain TECHNIQUE: 2 view(s) of the tibia and fibula were obtained. COMPARISON: None. FINDINGS: Please see the impression. RAD/Tibia & Fibula 2 Views IMPRESSION: No acute fracture or dislocation in the right tibia and fibula. No radiographic evidence of osteomyelitis. Calcaneal plantar spur. Diffuse soft tissue swelling. Electronically Signed: Marlon Gann MD at 12:18 EDT ,
--- NOTE | 2021-12-12 12:05 | RAD_ITS ---
STUDY: X-RAY - RIGHT FOOT CLINICAL: Male, 71 years old. Pain TECHNIQUE: 2 view(s) of the foot. COMPARISON: None. FINDINGS: Please see the impression. RAD/Foot 2 Views IMPRESSION: No acute fracture or dislocation in the right foot on these 2 AP and lateral views. No definite radiographic evidence of osteomyelitis. Calcaneal plantar spur. Diffuse soft tissue swelling on the dorsum of the foot. Electronically Signed: Marlon Gann MD at 12:51 EDT ,
--- NOTE | 2021-12-12 13:46 | NURSING ---
MED SURG ALTAGRACIA CELLULITIS, RT LEG
--- NOTE | 2021-12-12 14:02 | ED.RN ---
THIS RN ATTEMPTS TO CALL SON MARITZA PER PT REQUEST. SON UNABLE TO BE REACHED AT THIS TIME.
--- NOTE | 2021-12-12 14:35 | CPS ---
Pt has ANDREE but doesn't wear a machine at home.
--- NOTE | 2021-12-12 15:16 | WOUNDNOTE ---
wound photo: right lower leg
--- NOTE | 2021-12-12 15:16 | WOUNDNOTE ---
wound photo: right lower leg
--- NOTE | 2021-12-12 15:17 | WOUNDNOTE ---
wound photo: right 2nd toe
[2021-12-12] MEDS: oxyCODONE 5 MG Tablet PO ×2 (15:23→20:10)
[2021-12-12] MEDS: Acetaminophen 325 MG Tablet 650 MG PO (15:23)
--- NOTE | 2021-12-12 15:52 | PCM.RX.CS ---
Consult Pharmacy has been consulted to manage selected antiobiotic: Vancomycin Type of Consult: New start Suspected Infection: Skin/Soft tissue Labs: Sodium 140 mmol/L (136-145) 12/12/21 11:30 Potassium 3.6 mmol/L (3.5-5.1) 12/12/21 11:30 Chloride 108 mmol/L (98-107) H 12/12/21 11:30 Carbon Dioxide 25.0 mmol/L (21.0-32.0) 12/12/21 11:30 Anion Gap 7 (5-15) 12/12/21 11:30 BUN 15 mg/dL (7-18) 12/12/21 11:30 Creatinine 0.93 mg/dL (0.70-1.30) 12/12/21 11:30 Est GFR (MDRD) Af Amer 102 mL/min (>60) 12/12/21 11:30 Est GFR (MDRD) Non-Af 84 mL/min (>60) 12/12/21 11:30 BUN/Creatinine Ratio 16.1 RATIO (10-20) 12/12/21 11:30 Glucose 110 mg/dL (74-106) H 12/12/21 11:30 Goal Trough: 10-15 mcg/mL Pharmacy Plan for Drug Dosing: NEW START IV VANCOMYCIN Consulting Physician: Dr. José Smith Indication: Cellulitis Goal Trough: 10-15 SrCr: 0.93 CrCl: 79.68 mls/min (using an adjusted body weight of 82.68kg) Comments: pt received a 1750mg dose in the ER on 12/12/21 at 1234 Vancomcyin Dose: based on pts weight and renal function, recommend an initial dose of 1250mg q12h starting 12/13/21 at 0100. Trough before the 4th total dose Pending Level: 12/14/21 at 0030 Pharmacy Service will continue to monitor and adjust dosing as required.
--- NOTE | 2021-12-12 16:20 | PCM.HP.STD ---
HPI - General General Date of Admission: 12/12/21 Date of Service: 12/12/21 Chief Complaint: Left lower leg pain HPI Narrative TURNER YAN, is a 71 M who presented to the emergency department [facility] on 12/12/2021 with right lower extremity pain, swelling, and burning with drainage. The patient was seen and treated here in August of this past year for similar presentation however when compared to previous pictures it appears that his more proximal wounds are worsening. He reports he completed antibiotics but did not follow-up with the wound center as he does not like the debridement that they performed there. He feels it is unnecessary. I did discuss with him the reasons for ongoing debridement of the wound but he seemed resistant to education at the time of my evaluation. He reports that the wounds really never improved after discharge and that its become too much for his son to help him with and the pain has been worsening. He denies any systemic complaints such as fever or chills but reports that the drainage from the wounds are worsening. He did not follow-up with podiatry either after his last discharge. Vital signs on presentation showed a temperature of 97, heart rate 66, blood pressure is 166/106, respiratory rate was 18 and oxygen saturations were 93% on room air. His CBC is overall unremarkable. He does have a left shift however. His BMP was unremarkable other than some mild hyperglycemia with a glucose of 110. This is nonfasting. His liver functions are normal. Imaging was performed of his foot and distal lower extremity. X-rays of the foot showed no acute fracture or dislocation, no radiographic evidence of OM, calcaneal plantar spur and diffuse well soft tissue swelling on the dorsum of the foot. Tibia and feel x-rays show no acute fracture or dislocation, no radiographic evidence of osteomyelitis and diffuse soft tissue swelling. In the emergency department he was given IV medication for pain and started on vancomycin and Zosyn. Podiatry was contacted by the emergency department and they will follow. 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, nasal cavity and accessory sinuses BPH (benign prostatic hyperplasia) Cardiac murmur, unspecified Cervical disc disease Dyspnea on minimal exertion Essential (primary) hypertension Former smoker GERD (gastroesophageal reflux disease) Hyperlipidemia New onset atrial fibrillation (03/24/20) Obesity ANDREE (obstructive sleep apnea) Pain of left lower extremity due to injury Skin ulcer of left great toe with fat layer exposed Traumatic hematoma of left lower leg Home Medications atenolol 50 mg tablet 50 mg PO DAILY HTN 08/23/14 [History Last Taken 12/11/21] acetaminophen 325 mg tablet 500 mg PO Q4H PRN PRN Mild-Moderate Pain (1-5/10) 07/26/18 [Rx Last Taken 12/11/21] lisinopril 10 mg tablet 10 mg PO QHS HTN #90 tabs 03/31/20 [Rx Last Taken 12/11/21] rivaroxaban 10 mg tablet (Xarelto) 20 mg PO DAILY CIRCULATION 06/07/21 [History Last Taken 12/11/21] Allergy/AdvReac Type Severity Reaction Status Date / Time apixaban [From Eliquis] AdvReac Intermediate Wet the Verified 12/12/21 10:52 bed: found out later had UTI ibuprofen [From Motrin] AdvReac Nausea Verified 12/12/21 10:52 Family History Mother CAD (coronary artery disease) Hypertension History of cardiac radiofrequency ablation Sister Hypertension Other Arthritis Surgical History H/O cervical spine surgery History of bursectomy History of carpal tunnel release History of carpal tunnel surgery History of coronary artery stent placement (11/29/10) History of fusion of cervical spine History of herniorrhaphy History of removal of cyst History of transurethral resection of prostate Social History household members: none Smoking Status: Former smoker alcohol intake: current details: occasional substance use type: does not use additional social history: DOES NOT TAKE ASPIRIN DOES NOT TAKE IBUPROFEN ROS Constitutional Constitutional: Denies anorexia, change in weight, chills, fatigue, fever(s), malaise, night sweats, weakness or other Eyes Eyes: Denies blurry vision, change in eye color, change in vision, discharge from eye(s), double vision, erythema, eye pain, loss of vision or other ENT HEENT: Denies abnormal hearing, dysphagia, ear pain, epistaxis, headache(s), hearing loss, nasal congestion, nasal discharge, post nasal drip, sinus pressure, sore throat or other Cardiovascular Cardiovascular: Denies chest pain, claudication, dyspnea on exertion, edema, lightheadedness, orthopnea, palpitations, paroxysmal nocturnal dyspnea, rapid heart rate, syncope or other Respiratory/Chest Respiratory/Chest: Denies cough, dyspnea, excessive phlegm production, hemoptysis, productive cough, shortness of breath at rest, shortness of breath with exertion, wheezing or other Gastrointestinal Gastrointestinal: Denies abdominal pain, coffee ground emesis, constipation, diarrhea, dyspepsia, hematemesis, hematochezia, loose stools, melena, nausea, vomiting or other Genitourinary Genitourinary: Denies burning urination, difficulty urinating, dysuria, hematuria, nocturia, urinary frequency, urinary hesitancy, urinary incontinence, urinary urgency or other Musculoskeletal Musculoskeletal: Reports joint pain, joint stiffness and other Details: Left lower leg pain Neurologic Neurologic: Reports abnormal gait Psychiatric Psychiatric: Denies anxiety, depression, homicidal ideation, suicidal ideation or other Endocrine Endocrinology: Denies change in body appearance, cold intolerance, excessive sweating, heat intolerance, polydipsia, polyuria or other Hematologic/Lymphatic Hematologic/Lymphatic: Denies anemia, easy bleeding, easy bruising, lymphadenopathy or other Allergic/Immunologic Allergic/Immunologic: Denies rhinitis, hives, eczemia, asthma or other Vital Signs Vital Signs Vital Signs: 12/12/21 10:52 12/12/21 10:54 12/12/21 11:54 Temperature 97 F L 97 F L 97.6 F L Temperature Source Temporal Temporal Temporal Pulse Rate 66 96 86 Respiratory Rate 18 20 H 20 H Blood Pressure 166/106 H 166/106 H 158/98 H Blood Pressure Mean 126 126 118 Blood Pressure Source Blood Pressure Position Blood Pressure Location Pulse Ox 93 94 95 Oxygen Delivery Method Room Air Room Air Room Air 12/12/21 12:54 12/12/21 13:54 12/12/21 13:43 Temperature 98.1 F 97.7 F L 97.6 F L Temperature Source Temporal Temporal Temporal Pulse Rate 91 87 86 Respiratory Rate 20 H 18 18 Blood Pressure 162/87 H 162/99 H 162/99 H Blood Pressure Mean 112 120 120 Blood Pressure Source Blood Pressure Position Blood Pressure Location Pulse Ox 95 96 Oxygen Delivery Method Room Air Room Air 12/12/21 15:00 08/15/22 16:09 Temperature 97.9 F Temperature Source Oral Pulse Rate 79 Respiratory Rate 18 Blood Pressure 158/88 H Blood Pressure Mean 111 Blood Pressure Source Monitor Blood Pressure Position Semi-Fowlers Blood Pressure Location Left Arm Pulse Ox 94 99 Oxygen Delivery Method Room Air Room Air Weight Weight: 111.312 kg Body Mass Index (BMI) 39.6 Physical Exam Const alert, oriented x3 and well nourished Constitutional Narrative: Obese older white male who appears older than stated age, lying in bed, appears uncomfortable with leg pain, wound nurse at bedside, nontoxic, somewhat unkept General Appearance: cooperative HEENT normocephalic, head/scalp atraumatic and moist oral mucous membranes HEENT Narrative: Mild hearing loss, Mallampati is 3-4, no thrush, dentures in place Eyes PERRL, EOMs intact bilaterally and conjunctivae normal Eyes Narrative: No scleral icterus Neck no lymphadenopathy, supple and no JVD Neck Narrative: Neck is short and thick, no thyroid enlargement, trachea midline Resp normal respiratory effort, no retractions, no use of accessory muscles and clear to auscultation bilaterally Resp Narrative: Diffusely diminished but clear Auscultation: Negative for crackles, rales, rhonchi or wheezes Cardio regular rate, regular rhythm, S1 normal heart sound, S2 normal heart sound, no murmurs, no rub, no gallops, no clicks and no JVD Cardio Narrative: Distant heart tones secondary to body habitus GI normal to inspection, nondistended, normoactive bowel sounds, soft to palpation, non-tender and non-distended Extremity Extremity Narrative: Right lower extremity swelling with pitting at the foot, marked tenderness, no cyanosis or clubbing Skin no rashes or lesions noted, No no wounds, skin turgor normal, no jaundice, no petechiae and no mottling Skin Narrative: Ulcers noted on dorsal surface of right second digit with no significant drainage, wounds and erythema with tenderness on anterior surface of left lower extremity in the mid tibial region with purulent drainage-worsened when compared to previous images in [facility] Lesions: lesion noted Trauma: no lacerations or abrasions Neuro oriented x3, CN's II-XII intact bilaterally, moves all extremities and no focal motor deficits Neuro Narrative: No noted sensory deficits Sensorium / Orientation: awake, alert, oriented to person, oriented to place and oriented to time Speech: speech normal Motor Exam: strength 5/5 throughout Psych Psych Narrative: Patient appears uncomfortable and somewhat agitated this time however affect and mood seem to be normal Results Lab / Micro Data Attestation: I reviewed the patient's lab results. Result Diagrams: 12/12/21 11:30 12/12/21 11:30 Labs: Laboratory Results - last 24 hr 12/12/21 11:30: WBC 8.2, RBC 4.98, Hgb 14.9, Hct 45.0, MCV 90.4, MCH 29.9, MCHC 33.1, RDW Std Deviation 45.4 H, RDW Coeff of Naz 13.9, Plt Count 260, MPV 9.2, Immature Gran % (Auto) 0.400, Neut % (Auto) 74.6 H, Lymph % (Auto) 14.2 L, [place] % (Auto) 7.2, Eos % (Auto) 3.5, Baso % (Auto) 0.1, Absolute Neuts (auto) 6.1, Absolute Lymphs (auto) 1.16, Nucleated RBC % 0 12/12/21 11:30: Sodium 140, Potassium 3.6, Chloride 108 H, Carbon Dioxide 25.0, Anion Gap 7, BUN 15, Creatinine 0.93, Estim Creat Clear Calc 64.79, Est GFR (MDRD) Af Amer 102, Est GFR (MDRD) Non-Af 84, BUN/Creatinine Ratio 16.1, Glucose 110 H, Calcium 9.0, Total Bilirubin 0.70, AST 16, ALT 26, Alkaline Phosphatase 88, Total Protein 7.2, Albumin 3.2, Globulin 4.0, Albumin/Globulin Ratio 0.8 L 12/12/21 11:30: Lactic Acid 1.0 Radiology Impression Foot X-Ray 12/12/21 12:05 IMPRESSION: No acute fracture or dislocation in the right foot on these 2 AP and lateral views. No definite radiographic evidence of osteomyelitis. Calcaneal plantar spur. Diffuse soft tissue swelling on the dorsum of the foot. Electronically Signed: Marlon Gann MD at 12:51 EDT , Tibia/Fibula X-Ray 12/12/21 12:05 IMPRESSION: No acute fracture or dislocation in the right tibia and fibula. No radiographic evidence of osteomyelitis. Calcaneal plantar spur. Diffuse soft tissue swelling. Electronically Signed: Marlon Gann MD at 12:18 EDT Reading Location ID and State: [facility] / [place] Tel , Service support , Assessment & Plan Assessment/Plan (1) Cellulitis of right leg: (2) Lymphedema: (3) Toe ulcer: (4) Leg pain: (5) Hyperglycemia: PLAN: Plan Right lower extremity cellulitis/toe ulcer/leg pain -X-rays do not show any sign of invasive infection or osteomyelitis -Obtain wound cultures and MRSA PCR of the wound -Blood cultures obtained on admission -Consult podiatry -We will defer lower extremity MRI to them--> patient had 1 in August with no signs of osteomyelitis and the wound does not look any worse when compared to pictures from that admission -I suspect this is worsened as the patient has not followed up as an outpatient for any care after discharge -Start vancomycin and Zosyn -Wound care consultation -As needed Oxy for pain -As needed Tylenol for pain -Check ultrasound of left lower extremity given edema however I suspect is from infection -She had arterial studies in July which were unimpressive for any signs of poor blood flow Hyperglycemia -Blood sugar on admission was slightly elevated although this nonfasting -No history of diabetes -Will check hemoglobin A1c to rule out diabetes Hypertension -Continue home atenolol -Continue home lisinopril History of PAF -Patient is currently in sinus rhythm -Continue beta-jess -Continue home Xarelto History of hyperlipidemia -Patient is not on any statin at baseline -We will defer to outpatient ANDREE -Noncompliant at baseline for sleep apnea treatment -States he threw away his machine as it kept waking him up -Would recommend oxygen at night if any signs of desaturation History of tobacco abuse -Encourage continued cessation Obesity -BMI 39.6 -Recommend weight loss -Complicates treatment, prognosis, outcomes DVT prophylaxis -Continue home Xarelto CODE STATUS -Full code Charges/Coding Visit Charges Inpatient E&M: 53417 Init Hosp L3
--- NOTE | 2021-12-12 16:24 | VDLE_ITS ---
Reason For Study: Swelling RIGHT LEFT GSV is normal. GSV is normal. CFV is compressible, spontaneous, phasic, CFV is compressible, spontaneous, phasic, competent and demonstrates normal competent, and demonstrates normal augmentation. augmentation. FV is compressible, spontaneous, phasic, FV is compressible, spontaneous, phasic, competent and demonstrates normal competent and demonstrates normal augmentation. augmentation. POP V is compressible, spontaneous, phasic, POP V is compressible, spontaneous, phasic, competent and demonstrates normal competent and demonstrates normal augmentation. augmentation. T/P Trunk is compressible. T/P Trunk is compressible. Calf veins not visualized due to open wounds PTV is compressible. and bandages. LT PerV is compressible. Procedure This is a venous duplex using B-mode, color flow and spectral Doppler. Exam performed portable in patient room. A preliminary report was called and/or faxed to [facility]. VL/Venous Duplex US - Dominic Extrem Interpretation Summary Deep veins of the right lower extremity are patent and compressible segmentally . There is no evidence of right lower extremity deep vein thrombosis. The right great [place]hen[place] us vein appears patent and compressible segmentally. Deep veins of the left lower extremity are patent and compressible segmentally. There is no evidence of left lower extremity deep vein thrombosis. The left great saphenous vein norbert ears patent and compressible segmentally. Limited study below knee on right due to dressings Ordering Physician: Maria Esther Smith Referring Physician: Low Zheng Chi Performed By: Irene Cai RVT
[2021-12-12 16:54] LABS: M R Staph aureus DNA By PCR Negative (Negative); Probe Check PASS; Staph aureus DNA By PCR POSITIVE (Negative)
[2021-12-12] MEDS: Rivaroxaban 20 MG Tablet PO (17:30)
--- NOTE | 2021-12-12 18:51 | PCM.CONS.GEN ---
Assessment & Plan Assessment/Plan (1) Cellulitis of right leg: (2) 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 layer exposed: (3) Venous insufficiency: (4) Skin ulcer of left great toe with fat layer exposed: (5) Hyperglycemia: (6) Lymphedema: (7) Pain in right lower leg: (8) Pain of left great toe: PLAN: Plan Patient seen and evaluated I discussed performing a debridement of his multiple ulceration sites of the right lower extremity and the dorsal left hallux. He refuses debridement at this time stating that he feels it is unnecessary and causes significant pain. I also discussed returning to the wound care center for continued management of his ulcerative sites following his discharge. He states that he is not fond of going back to the wound care center and is not fond of having debridements performed on a weekly basis as he finds it unnecessary, but states that he will think about it. Wound/infection: Right lower extremity multiple focal ulcerations demonstrate 100% thick, yellow fibrotic tissue with rolled wound edges. There is some slight maceration about the wound margins. There is erythema about the wound margins with pain to palpation. Some of the thickened fibrotic tissue can be removed upon removal of dressings. He does demonstrate heavy serosanguineous drainage of the ulcerative sites secondary to his chronic venous insufficiency. He does have diffuse hemosiderin deposition of the right lower extremity. Wound sites demonstrate no purulent drainage and no malodor, no palpable fluctuance, no crepitus, and no visible abscess. Left dorsal hallux wound demonstrates no malodor or purulent drainage or erythema. WBC currently at 8.2. Currently on Vanco/Zosyn Cultures: Blood cultures obtained and pending. Wound culture demonstrates staph aureus protein A PCR positive. MRSA PCR negative. Vascular: Nonpalpable DP and PT pulses secondary to edema of the right lower extremity. He did have LEAS from 09/18 which did demonstrate some noncompressible vessels of the foot despite adequate waveforms and NATHEN. Critical limb ischemia was not suspected at this time despite having some vascular compromise. He also had audible pedal pulses on Doppler. Edema: He is to continue to elevate both lower extremities at all times of rest. Bilateral compression dressing via Jaden wrap. He was encouraged to return to his juxta light lower extremity compression wraps following his discharge. Radiographs: Right ankle/tib-fib x-ray demonstrates diffuse soft tissue swelling with no osteomyelitis. Right foot x-ray demonstrates diffuse soft tissue swelling at the dorsum of the foot with no osteomyelitis. Dressing: Betadine soaked Adaptic to the ulcerative sites, Aquacel Ag overlying the ulcerative sites, ABD, Kerlix, and Jaden wrap compression to the right lower extremity. Left hallux Betadine and dry sterile dressing with Jaden wrap compression. Nursing to change dressings daily to the left leg and daily to twice daily to the right leg pending strikethrough. Wash: He may wash sites with soap and water and pat the area dry. Pain: Tylenol and Oxyir Host factors: Chronic venous insufficiency Medicine team following for medical management, this is greatly appreciated. Podiatry will continue to follow while in house for cellulitis and local wound care. He refuses any debridement to be performed today however I again discussed with him to consider allowing for debridement to remove the thick fibrotic tissue to allow the wounds to heal better, he states he will think about it. I do not anticipate surgical intervention at this time. I discussed him following up with me at the wound care center upon discharge. Please do not hesitate to call for any questions or concerns. Hiram Cardenas Jr., D.P.M. [facility] [phone] Note: [employer] speech recognition gluing machine feeder software was used to create portions of this document. Sound-alike and misspelled words, as well as other gluing machine feeder errors may be contained in the documentation. HPI Consult Data Date of Consult: 12/12/21 HPI Narrative Reason for Consultation: Right lower extremity wounds with cellulitis HPI Narrative: TURNER YAN, is a 71 M who presents to the [facility] ED on 12/12/2021 with pain, swelling, burning sensation, and drainage to the right lower extremity. He states that these right leg wounds have been draining for the last month. He has previous admission from 09/18 for right lower extremity wounds with cellulitis. He was instructed to follow-up in the wound care center or with the foot and ankle specialist, however he did not follow-up due to a difference in opinion regarding wound debridement. I do not think they need to be scraped and picked at, and I find it unnecessary. He states that following discharge back in August his wounds did not improve and in fact became more wet and leaking with more leg swelling. He denies any constitutional symptoms today. He does admit to some right leg pain specifically about the ulcer sites. He admits to heavy amounts of drainage from his right leg. He also admits to right hip pain and states that he fell off of his couch onto his right hip while sleeping this past weekend. He admits to history of A. fib currently on oral anticoagulants. He denies any further complaints today. 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, nasal cavity and accessory sinuses BPH (benign prostatic hyperplasia) Cardiac murmur, unspecified Cervical disc disease Dyspnea on minimal exertion Essential (primary) hypertension Former smoker GERD (gastroesophageal reflux disease) Hyperlipidemia New onset atrial fibrillation (03/24/20) Obesity ANDREE (obstructive sleep apnea) Pain of left lower extremity due to injury Skin ulcer of left great toe with fat layer exposed Traumatic hematoma of left lower leg Home Medications atenolol 50 mg tablet 50 mg PO DAILY HTN 08/23/14 [History Last Taken 12/11/21] acetaminophen 325 mg tablet 500 mg PO Q4H PRN PRN Mild-Moderate Pain (1-5/10) 07/26/18 [Rx Last Taken 12/11/21] lisinopril 10 mg tablet 10 mg PO QHS HTN #90 tabs 03/31/20 [Rx Last Taken 12/11/21] rivaroxaban 10 mg tablet (Xarelto) 20 mg PO DAILY CIRCULATION 06/07/21 [History Last Taken 12/11/21] Allergy/AdvReac Type Severity Reaction Status Date / Time apixaban [From Eliquis] AdvReac Intermediate Wet the Verified 12/12/21 10:52 bed: found out later had UTI ibuprofen [From Motrin] AdvReac Nausea Verified 12/12/21 10:52 Family History Mother CAD (coronary artery disease) Hypertension History of cardiac radiofrequency ablation Sister Hypertension Other Arthritis Surgical History H/O cervical spine surgery History of bursectomy History of carpal tunnel release History of carpal tunnel surgery History of coronary artery stent placement (11/29/10) History of fusion of cervical spine History of herniorrhaphy History of removal of cyst History of transurethral resection of prostate Social History household members: none Smoking Status: Former smoker alcohol intake: current details: occasional substance use type: does not use additional social history: DOES NOT TAKE ASPIRIN DOES NOT TAKE IBUPROFEN Physical Exam Const alert, oriented x3, no apparent distress and well nourished General Appearance: cooperative and comfortable HEENT normocephalic Eyes General Eye: normal appearance of both eyes Neck General: normal visual inspection Lymph Lymphatic: no lymphadenopathy noted and no lymphedema noted Chest inspection of chest normal Resp normal respiratory effort Cardio regular rate and regular rhythm Extremity Extremity Narrative: Right lower extremity: DP and PT pulses nonpalpable secondary to edema. Cap fill time less than 5 seconds to the digits. Left lower extremity: DP and PT pulses weakly palpable. Cap fill time less than 5 seconds to the digits. Skin Skin Narrative: Right lower extremity: Right lower extremity demonstrates nonpitting edema with multiple lower extremity ulcerations posterior and anterior leg with surrounding erythema. The skin is shiny and taut secondary to his edema and trophic changes. There is also diffuse hemosiderin deposition secondary to chronic venous insufficiency. Left lower extremity: Skin is intact with no rashes or lesions. Skin demonstrates normal turgor. Anterior left lower extremity demonstrates an area of friable skin secondary to chronic venous insufficiency. No open wounds to the lower extremity. Slight lower extremity edema noted. Wound Narrative: Right lower extremity: Multiple ulcerations noted to the posterior aspect of the lower extremity and anterior lateral aspect of the lower extremity. Ulcerative site demonstrates a 100% thickened, yellow fibrotic wound bed with rolled wound edges. Ulcerative sites are painful to palpation. Ulcerative sites demonstrate surrounding localized erythema with heavy serosanguineous drainage due to a component of chronic venous insufficiency. Some fibrotic tissue is easily removed by dressings. No purulent drainage. no malodor. Left lower extremity: There is a small ulceration noted to the dorsal aspect of the left foot with overlying dried blood. Ulcerative site measures 0.4 cm x 0.6 cmx 0.1cm. No erythema, no purulent drainage, no malodor, or other localized signs of infection. Neuro oriented x3 and moves all extremities Neuro Narrative: There is some weakness to the right lower extremity compared to the left lower extremity Psych cooperative and affect normal Lab / Micro Data Result Diagrams: 12/12/21 11:30 12/12/21 11:30 Labs: Laboratory Results - last 24 hr 12/12/21 11:30: WBC 8.2, RBC 4.98, Hgb 14.9, Hct 45.0, MCV 90.4, MCH 29.9, MCHC 33.1, RDW Std Deviation 45.4 H, RDW Coeff of Naz 13.9, Plt Count 260, MPV 9.2, Immature Gran % (Auto) 0.400, Neut % (Auto) 74.6 H, Lymph % (Auto) 14.2 L, Kingfisher % (Auto) 7.2, Eos % (Auto) 3.5, Baso % (Auto) 0.1, Absolute Neuts (auto) 6.1, Absolute Lymphs (auto) 1.16, Nucleated RBC % 0 12/12/21 11:30: Sodium 140, Potassium 3.6, Chloride 108 H, Carbon Dioxide 25.0, Anion Gap 7, BUN 15, Creatinine 0.93, Estim Creat Clear Calc 64.79, Est GFR (MDRD) Af Amer 102, Est GFR (MDRD) Non-Af 84, BUN/Creatinine Ratio 16.1, Glucose 110 H, Calcium 9.0, Total Bilirubin 0.70, AST 16, ALT 26, Alkaline Phosphatase 88, Total Protein 7.2, Albumin 3.2, Globulin 4.0, Albumin/Globulin Ratio 0.8 L 12/12/21 11:30: Lactic Acid 1.0 12/12/21 14:55: S.aureus Protein A PCR POSITIVE H, MRSA (PCR) Negative Radiology Impression Foot X-Ray 12/12/21 12:05 IMPRESSION: No acute fracture or dislocation in the right foot on these 2 AP and lateral views. No definite radiographic evidence of osteomyelitis. Calcaneal plantar spur. Diffuse soft tissue swelling on the dorsum of the foot. Electronically Signed: Marlon Gann MD at 12:51 EDT , Tibia/Fibula X-Ray 12/12/21 12:05 IMPRESSION: No acute fracture or dislocation in the right tibia and fibula. No radiographic evidence of osteomyelitis. Calcaneal plantar spur. Diffuse soft tissue swelling. Electronically Signed: Marlon Gann MD at 12:18 EDT ,
--- NOTE | 2021-12-12 19:17 | RAD_ITS ---
INDICATION: Right hip pain from falling off a chair at home. cellulitis. EXAMINATION/TECHNIQUE: X-RAY - RIGHT XR Hip Unilateral with Pelvis when performed; 2-3 Views 3 VIEWS COMPARISON: 07/28/2018. FINDINGS: SOFT TISSUES: No soft tissue swelling or gas. No radiopaque foreign body. BONES/JOINTS: No acute fracture or subluxation.. Normal alignment. No significant narrowing of the hip joint spaces is seen. Degenerative bone changes are seen.. No sclerotic or destructive changes observed. RAD/HIP, UNI W/ Pelvis 2-3 Views IMPRESSION: Degenerative changes, no evidence of acute osseous abnormality Electronically Signed: Alfonzo Rodriguez MD at 8:00 EDT ,
[2021-12-12] MEDS: Lisinopril 10 MG Tablet PO (21:20)
[2021-12-13 02:15] VITALS: BP 139/104; PULSE 63; RESP 16; TEMP 37.1; O2SAT 97
[2021-12-13 06:22] LABS: Absolute Lymphocyte Count 1.15 X10^3/uL (0.83-4.51); Absolute Neutrophil Count 6.9 X10^3/uL (2.0-7.7); Basophil# 0.02 X10^3/uL; Basophil% 0.2 % (0-1); Eosinophils% 3.3 % (0-5); Hematocrit 44.6 % (40-54); Hemoglobin 14.9 g/dL (13.0-16.5); Lymphocyte # 1.15 X10^3/ul (0.83-4.51); Lymphocyte % 12.7 % (19-41); Mean Corp Hgb Conc 33.4 g/dL (32-36); Mean Corpuscular Hgb 30.6 pg (27.0-32.0); Mean Corpuscular Volume 91.6 fL (80-94); Mean Platelet Vol. 9.3 fl (6.2-12.0); Monocyte# 0.62 X10^3/uL; Monocyte% 6.9 % (0-10); NRBC Flagged by Analyzer 0 % (0-5); Neutrophil # 6.92 X10^3/uL (2.7-7.7); Neutrophil % 76.6 % (47-70); Platelet Count 249 K/mm3 (150-450); RBC Distribution Width SD 47.4 fl (35.1-43.9); Red Blood Count 4.87 M/mm3 (4.6-6.2)
[2021-12-13 06:51] LABS: ALB/GLOB Ratio 0.7 RATIO (0.9-2.4); AST(SGOT) 15 U/L (15-37); Alanine Aminotransfer ALT/SGPT 25 U/L (16-61); Albumin, Serum 2.9 g/dL (3.2-5.0); Alkaline Phosphatase 75 U/L (45-117); Anion Gap 5 (5-15); BUN 17 mg/dL (7-18); BUN/Creat Ratio 16.5 RATIO (10-20); Calcium,Total 8.8 mg/dL (8.5-10.1); Chloride 107 mmol/L (98-107); Creatinine, Serum 1.03 mg/dL (0.70-1.30); EST Glomerular Filtration Rate 75 mL/min (>60); Est Glom Filt Rate - Afr Amer 91 mL/min (>60); Globulin 4.1 g/dL (2.2-4.2); Glucose 99 mg/dL (74-106); Phosphorus 3.1 mg/dL (2.5-4.9); Sodium Level 139 mmol/L (136-145)
--- NOTE | 2021-12-13 07:27 | PN.HOSP_ITS ---
Subjective Subjective Legs feeling better. Objective Data Objective Data Vital Signs: Vital Signs Temp Pulse Resp BP Pulse Ox O2 Del Method 37.1 C 63 16 139/104 H 97 Room Air 12/13/21 02:15 12/13/21 02:15 12/13/21 02:15 12/13/21 02:15 12/13/21 02:15 12/13/21 02:15 Oxygen Delivery Method Room Air Weight: 111.312 kg Body Mass Index (BMI) 39.6 Intake & Output: Intake and Output for Last 24 Hours 12/11/21 12/12/21 12/13/21 23:59 23:59 23:59 Intake Total 585 / 1185 925 / 925 Output Total 200 / 500 550 / 550 Balance 385 / 685 375 / 375 Lab / Micro Data Result Diagrams: 12/13/21 06:05 12/13/21 06:05 Labs: Laboratory Results - last 24 hr 12/12/21 11:30: WBC 8.2, RBC 4.98, Hgb 14.9, Hct 45.0, MCV 90.4, MCH 29.9, MCHC 33.1, RDW Std Deviation 45.4 H, RDW Coeff of Naz 13.9, Plt Count 260, MPV 9.2, Immature Gran % (Auto) 0.400, Neut % (Auto) 74.6 H, Lymph % (Auto) 14.2 L, Baylor % (Auto) 7.2, Eos % (Auto) 3.5, Baso % (Auto) 0.1, Absolute Neuts (auto) 6.1, Absolute Lymphs (auto) 1.16, Nucleated RBC % 0 12/12/21 11:30: Sodium 140, Potassium 3.6, Chloride 108 H, Carbon Dioxide 25.0, Anion Gap 7, BUN 15, Creatinine 0.93, Estim Creat Clear Calc 64.79, Est GFR (MDRD) Af Amer 102, Est GFR (MDRD) Non-Af 84, BUN/Creatinine Ratio 16.1, Glucose 110 H, Calcium 9.0, Total Bilirubin 0.70, AST 16, ALT 26, Alkaline Phosphatase 88, Total Protein 7.2, Albumin 3.2, Globulin 4.0, Albumin/Globulin Ratio 0.8 L 12/12/21 11:30: Lactic Acid 1.0 12/12/21 14:55: S.aureus Protein A PCR POSITIVE H, MRSA (PCR) Negative 12/13/21 06:05: WBC 9.0, RBC 4.87, Hgb 14.9, Hct 44.6, MCV 91.6, MCH 30.6, MCHC 33.4, RDW Std Deviation 47.4 H, RDW Coeff of Naz 14.0, Plt Count 249, MPV 9.3, Immature Gran % (Auto) 0.300, Neut % (Auto) 76.6 H, Lymph % (Auto) 12.7 L, Baylor % (Auto) 6.9, Eos % (Auto) 3.3, Baso % (Auto) 0.2, Absolute Neuts (auto) 6.9, Absolute Lymphs (auto) 1.15, Nucleated RBC % 0 12/13/21 06:05: Sodium 139, Potassium 4.0, Chloride 107, Carbon Dioxide 27.0, Anion Gap 5, BUN 17, Creatinine 1.03, Estim Creat Clear Calc 58.50, Est GFR (MDRD) Af Amer 91, Est GFR (MDRD) Non-Af 75, BUN/Creatinine Ratio 16.5, Glucose 99, Calcium 8.8, Phosphorus 3.1, Magnesium 2.0, Total Bilirubin 0.90, AST 15, ALT 25, Alkaline Phosphatase 75, Total Protein 7.0, Albumin 2.9 L, Globulin 4.1, Albumin/Globulin Ratio 0.7 L Radiography Diagnostic Testing: Radiology Impression Foot X-Ray 12/12/21 12:05 IMPRESSION: No acute fracture or dislocation in the right foot on these 2 AP and lateral views. No definite radiographic evidence of osteomyelitis. Calcaneal plantar spur. Diffuse soft tissue swelling on the dorsum of the foot. Electronically Signed: Marlon Gann MD at 12:51 EDT , Tibia/Fibula X-Ray 12/12/21 12:05 IMPRESSION: No acute fracture or dislocation in the right tibia and fibula. No radiographic evidence of osteomyelitis. Calcaneal plantar spur. Diffuse soft tissue swelling. Electronically Signed: Marlon Gann MD at 12:18 EDT , Physical Exam Const alert and no apparent distress Resp normal respiratory effort, no retractions, no use of accessory muscles and clear to auscultation bilaterally Cardio regular rate, regular rhythm, S1 normal heart sound and S2 normal heart sound GI normal to inspection, nondistended, normoactive bowel sounds and soft to palpation Extremity Extremity Narrative: legs wrapped--did not remove. Assessment & Plan Assessment/Plan (1) Cellulitis of right leg: PLAN: Right lower extremity cellulitis/toe ulcer/leg pain -X-rays do not show any sign of invasive infection or osteomyelitis -Obtain wound cultures and MRSA PCR of the wound -Blood cultures obtained on admission -Podiatry consulted: recommended debridement. Pt currently declining. -We will defer lower extremity MRI to them--> patient had 1 in August with no signs of osteomyelitis and the wound does not look any worse when compared to pictures from that admission -I suspect this is worsened as the patient has not followed up as an outpatient for any care after discharge -Start vancomycin and Zosyn -Wound care consultation -As needed Oxy for pain -As needed Tylenol for pain -Check ultrasound of left lower extremity given edema however I suspect is from infection -She had arterial studies in July which were unimpressive for any signs of poor blood flow -Cx with GNR, follow up. (2) Lymphedema: PLAN: complicates carea and recovery SB wraps. Echo from 03/31/2020 shows an EF 60% Weight up 3 kg since August Add furosemide recheck echo (3) Toe ulcer: PLAN: Wound care (4) Leg pain: (5) Hyperglycemia: PLAN: Hyperglycemia -Blood sugar on admission was slightly elevated although this nonfasting -No history of diabetes -Will check hemoglobin A1c to rule out diabetes PLAN: Plan Chronic Conditions: * Hypertension: Continue home atenolol. Continue home lisinopril * History of PAF: Patient is currently in sinus rhythm. Continue beta-jess. Continue home Xarelto * History of hyperlipidemia: Patient is not on any statin at baseline We will defer to outpatient * ANDREE: Noncompliant at baseline for sleep apnea treatment. States he threw away his machine as it kept waking him up. Would recommend oxygen at night if any signs of desaturation * History of tobacco abuse: Encourage continued cessation * Obesity: BMI 39.6. Recommend weight loss. Complicates treatment, prognosis, outcomes DVT prophylaxis -Continue home Xarelto CODE STATUS -Full code
[2021-12-13 07:50] LABS: Hemoglobin A1c 5.2 % (3.8-5.6)
[2021-12-13 08:37] VITALS: BP 138/75; PULSE 82; RESP 16; TEMP 36.9; O2SAT 92
[2021-12-13] MEDS: Atenolol 50 MG Tablet PO (09:55)
--- NOTE | 2021-12-13 10:15 | CASEMGMT ---
RN HIWOT Face to Face with patient for initial transition planning/care coordination assessment. RN CM introduced self and role at [facility]. Patient lying in bed, alert and oriented. Patient willing to participate in assessment and is able to answer all questions appropriately. Care providers, pharmacy, and demographics verified. Patient wishes to discharge home but willing to go to SNF if necessary pending course of treatment and progress with therapy. Patient states he has no further needs or concerns at this time. CM to follow for discharge planning needs that may arise. PCP: Norm Specialists: none [facility]erred [facility]acy[facility] Insurance: [employer] [facility] Prescription Benefit: yes Living Will/HPOA: yes, son Naeem Roberson, HPOA LNOK: sons Living Arrangements: Patient lives with son in a 1.5 story home with bed and bath on first floor. 2 steps and railing to enter the home. Patient states he was independent for self care at home. Patient states that son was assisting with dressing changes. Transportation: self, son DME/HHC: Patient states he has shower chair, raised toilet, cane, walker, and grab bars at home. Patient states he has had HHC in the past but could not recall agency. Patient has been to [facility] in the past. Disposition Plan: TBD, anticipate HHC vs SNF at discharge pending progress with therapy and course of treatment. Irene BAINS, RN, CM
[2021-12-13 11:35] VITALS: BP 135/84; PULSE 79; RESP 16; TEMP 36.9; O2SAT 95
[2021-12-13] MEDS: Acetaminophen 325 MG Tablet 650 MG PO ×2 (12:01→21:38)
[2021-12-13] MEDS: oxyCODONE 5 MG Tablet PO ×2 (12:01→21:37)
--- NOTE | 2021-12-13 12:11 | CASEMGMT ---
Social Work SW in to meet with pt and inquire about Advanced Directives. Pt confirmed he has HCPOA and LW and name his son Naeem Roberson as the primary HCPOA, with other son Maco Roberson as the alternate. SW asked pt if he has a copy of documents that he can bring to be scanned and pt stated he thinks his sons may have a copy. SW asked permission to contact the sons and see if they could bring a copy. Pt declined and stated he would ask his son to bring a copy this evening when he comes to visit as his son is at work and he does not want him to be disturbed at this time. LEIA Tello
--- NOTE | 2021-12-13 12:52 | ECHOCS_ITS ---
Reason For Study: Lymphedema Procedure This was a 2D Doppler, Color Flow transthoracic echocardiogram. The study was technically difficult. Contrast injection was performed. Exam performed portable in patient room. Left Ventricle Based upon the 2D echocardiographic and contrast enhanced images obtained there appears to be grossly normal left ventricular size, wall motion, and systolic function. The estimated ejection fraction is 65 %. Unable to assess diastolic dysfunction. Right Ventricle Normal RV size. Normal systolic function. Atria The left atrium is mildly enlarged. Normal right atrium. No doppler evidence for ASD. Mitral Valve There is no mitral annular calcification. Normal mitral valve. Mild (1+) mitral valve insufficiency. Tricuspid Valve Normal tricuspid valve. Moderate (2+) tricuspid valve insufficiency. Right ventricular systolic pressure estimated to be 27 mmHg. Aortic Valve Trisinus/trileaflet aortic valve. Mild focal aortic valve calcification. Trivial aortic valve insufficiency. Pulmonic Valve The pulmonic valve is not well visualized. Great Vessels Borderline enlarged aortic root. Pericardium/Pleural No pericardial effusion. Medication Diluted definity 1ml given slow IV push to enhance endocardial definition. MMode/2D Measurements & Calculations LVIDd: 5.0 cm IVSd: 1.2 cm LVOT diam: 2.0 cm LVIDs: 3.1 cm LVPWd: 1.4 cm RVDd: 3.1 cm FS: 37.9 % LVOT area: 3.2 cm2 Ao root diam: 3.8 cm LAV(MOD-bp): 73.3 ml LA A4 area: 25.0 cm2 LA dimension: 4.6 cm LAV(MOD-bp) Indexed: 33.6 ml/m2 LAV(MOD-sp2): 65.3 ml LAV(MOD-sp4): 79.7 ml RA A4 area: 16.2 cm2 Doppler Measurements & Calculations MV E max mary: 113.9 cm/sec Ao V2 max: 208.9 cm/sec LV V1 max: 140.4 cm/sec Ao max P.5 mmHg LV V1 max P.9 mmHg Ao V2 mean: 125.3 cm/sec LV V1 mean P.9 mmHg Ao mean P.7 mmHg LV V1 mean: 90.3 cm/sec Ao V2 VTI: 33.7 cm LV V1 VTI: 25.2 cm MARTITA(I,D): 2.4 cm2 MARTITA(V,D): 2.2 cm2 MR max mary: 426.5 cm/sec SV(LVOT): 80.9 ml PA V2 max: 91.0 cm/sec MR max P.7 mmHg MR mean mary: 357.7 cm/sec MR mean P.8 mmHg MR VTI: 127.5 cm TR max mary: 241.7 cm/sec TR max P.5 mmHg ECHO/Echo Complete W/ Contrast Interpretation Summary The study was technically difficult. Contrast injection was performed. Based upon the 2D echocardiographic and contrast enhanced images obtained there appears to be grossly normal left ventricular size, wall motion, and systolic function. The estimated ejection fraction is 65 %. The left atrium is mildly enlarged. Mild (1+) mitral valve insufficiency. Moderate (2+) tricuspid valve insufficiency. Mild focal aortic valve calcification. Trivial aortic valve insufficiency. Borderline enlarged aortic root. Right ventricular systolic pressure estimated to be 27 mmHg. Unable to assess diastolic dysfunction. Ordering Physician: Kervin Ortiz Referring Physician: Low Zheng Chi Performed By: Oscar Oro RCS
[2021-12-13] MEDS: 0.9% Saline Lock 10 ML Syringe IV (13:03)
[2021-12-13] MEDS: Furosemide 40 MG/4 ML Vial IV (13:03)
[2021-12-13 15:28] VITALS: BP 130/82; PULSE 99; RESP 16; TEMP 37.2; O2SAT 94
--- NOTE | 2021-12-13 16:00 | CHAPLAIN ---
Type of Pastoral Visit _x__ Initial Visit ___ Follow-up Visit ___ On-call Visit ___ General Patient Visit ___ Spiritual Assessment ___ Family Conference ___ Bereavement ___ Rapid Response ___ Code Blue ___ Other (describe below) Pastoral Care Referral From _x__ Patient ___ Family ___ Nurse ___ Physician ___ Tech Ed Teacher ___ Pcb Designer ___ Other (describe below) Sacrament/Intervention _x__ Active listening ___ Anointing ___ Sabianist ___ Bereavement ___ Communion ___ Estefany exploration ___ ___ Life review _x__ Prayer ___ Reconciliation ___ Sacrament of Sick _x__ Supportive presence ___ Wedding ___ Other (describe below) Pastoral Comments patient reports on his health and the pain involved; pt states pain is better managed now; pt says a son lives with him but he works a lot so most of the time pt is alone at home; pt discusses his goal of returning to a more active life and free from the pain in his legs; pt accepts prayer; pt says no other needs
[2021-12-13] MEDS: Furosemide 40 MG Tablet PO (17:51)
[2021-12-13] MEDS: Rivaroxaban 20 MG Tablet PO (17:51)
[2021-12-13 21:30] VITALS: BP 142/98; PULSE 59; RESP 16; TEMP 36.7; O2SAT 98
[2021-12-13] MEDS: Lisinopril 10 MG Tablet PO (21:38)
[2021-12-14] VITALS (7 sets, daily range): BP systolic 136–171; BP diastolic 79–113; PULSE 59–79; RESP 16–18; TEMP 36.5–37.4; O2SAT 94–98
[2021-12-14 01:26] LABS: Vancomycin, Trough Level 21.7 ug/mL (5.0-15.0)
--- NOTE | 2021-12-14 01:47 | PCM.RX.CS ---
Consult Pharmacy has been consulted to manage selected antiobiotic: Vancomycin Type of Consult: Follow-up Prior Doses of Antibiotics Received/Current Regimen: Medications Vancomycin HCl 1,250 mg/ (Sodium Chloride) 275 mls @ 167 mls/hr IV Q12H IKE Last Admin: 12/13/21 15:14 Dose: Infused Labs: Sodium 139 mmol/L (136-145) 12/13/21 06:05 Potassium 4.0 mmol/L (3.5-5.1) 12/13/21 06:05 Chloride 107 mmol/L (98-107) 12/13/21 06:05 Carbon Dioxide 27.0 mmol/L (21.0-32.0) 12/13/21 06:05 Anion Gap 5 (5-15) 12/13/21 06:05 BUN 17 mg/dL (7-18) 12/13/21 06:05 Creatinine 1.03 mg/dL (0.70-1.30) 12/13/21 06:05 Est GFR (MDRD) Af Amer 91 mL/min (>60) 12/13/21 06:05 Est GFR (MDRD) Non-Af 75 mL/min (>60) 12/13/21 06:05 BUN/Creatinine Ratio 16.5 RATIO (10-20) 12/13/21 06:05 Glucose 99 mg/dL (74-106) 12/13/21 06:05 Vancomycin Trough 21.7 ug/mL (5.0-15.0) H 12/14/21 00:20 Microbiology: Microbiology 12/12/21 14:55 Wound - Leg, Right Gram Stain - Final 12/12/21 14:55 Wound - Leg, Right Wound Culture - Preliminary Gram negative louise Weight used for dosin kg Goal Trough: 15-20 mcg/mL Pharmacy Plan for Drug Dosing: Trough above 20, hold and re-check tomorrow. Pharmacy Service will continue to monitor and adjust dosing as required. Follow-Up Labs: Trough Vancomycin - 12/15 @ 0600
--- NOTE | 2021-12-14 07:23 | PN.HOSP_ITS ---
Subjective Subjective No new events. Legs TTP. Objective Data Objective Data Vital Signs: Vital Signs Temp Pulse Resp BP Pulse Ox O2 Del Method 37.0 C 69 16 136/79 H 98 Room Air 12/14/21 03:30 12/14/21 03:30 12/14/21 03:30 12/14/21 03:30 12/14/21 03:30 12/14/21 03:30 Oxygen Delivery Method Room Air Weight: 111.312 kg Body Mass Index (BMI) 39.6 Intake & Output: Intake and Output for Last 24 Hours 12/12/21 12/13/21 12/14/21 23:59 23:59 23:59 Intake Total 585 / 1185 2553.75 / 2853.75 825 / 825 Output Total 200 / 500 3025 / 3475 675 / 675 Balance 385 / 685 -471.25 / -621.25 150 / 150 Lab / Micro Data Result Diagrams: 12/13/21 06:05 12/14/21 07:45 Labs: Laboratory Results - last 24 hr 12/13/21 06:05: Hemoglobin A1c 5.2 12/14/21 00:20: Vancomycin Trough 21.7 H Micro: Microbiology 12/12/21 14:55 Wound - Leg, Right Gram Stain - Final 12/12/21 14:55 Wound - Leg, Right Wound Culture - Preliminary Gram negative louise Radiography Diagnostic Testing: Radiology Impression Venous Doppler Study 12/12/21 16:24 Interpretation Summary Deep veins of the right lower extremity are patent and compressible segmentally. There is no evidence of right lower extremity deep vein thrombosis. The right great saphenous vein appears patent and compressible segmentally. Deep veins of the left lower extremity are patent and compressible segmentally. There is no evidence of left lower extremity deep vein thrombosis. The left great saphenous vein appears patent and compressible segmentally. Limited study below knee on right due to dressings ____ Ordering Physician: Maria Esther Smith Referring Physician: Low Zheng Chi Performed By: Irene Cai RVT Hip/Pelvis X-Ray 12/12/21 19:17 IMPRESSION: Degenerative changes, no evidence of acute osseous abnormality Electronically Signed: Alfonzo Rodriguez MD at 8:00 EDT , Echocardiogram 12/13/21 12:52 Interpretation Summary The study was technically difficult. Contrast injection was performed. Based upon the 2D echocardiographic and contrast enhanced images obtained there appears to be grossly normal left ventricular size, wall motion, and systolic function. The estimated ejection fraction is 65 %. The left atrium is mildly enlarged. Mild (1+) mitral valve insufficiency. Moderate (2+) tricuspid valve insufficiency. Mild focal aortic valve calcification. Trivial aortic valve insufficiency. Borderline enlarged aortic root. Right ventricular systolic pressure estimated to be 27 mmHg. Unable to assess diastolic dysfunction. Ordering Physician: Kervin Ortiz Referring Physician: Low Zhneg Chi Performed By: Oscar Oro RCS Physical Exam Const alert and no apparent distress Resp normal respiratory effort, no retractions, no use of accessory muscles and clear to auscultation bilaterally Cardio regular rate, regular rhythm, S1 normal heart sound and S2 normal heart sound GI normal to inspection, nondistended, normoactive bowel sounds and soft to palpation Extremity Extremity Narrative: edema bilaterally, R >L. lymphedema changes bilaterally. Skin Skin Narrative: superficial ulcerations on right delgadillo and right foot. Psych affect normal Assessment & Plan Assessment/Plan (1) Cellulitis of right leg: PLAN: Right lower extremity cellulitis/toe ulcer/leg pain -X-rays do not show any sign of invasive infection or osteomyelitis -Obtain wound cultures and MRSA PCR of the wound -Blood cultures obtained on admission -Podiatry consulted: recommended debridement. Pt currently declining. -I suspect this is worsened as the patient has not followed up as an outpatient for any care after discharge -Start vancomycin and Zosyn -Wound care consultation -As needed Oxy for pain -As needed Tylenol for pain -Duplex negative for DVT -She had arterial studies in July which were unimpressive for any signs of poor blood flow -Cx with polymircobial (2) Lymphedema: PLAN: complicates carea and recovery SB wraps. Echo from 03/31/2020 shows an EF 60%. Echo 12/13 shows EF of 65%, RVSP estimated to be 27mmHg. Weight up 3 kg since May Add furosemide (3) Toe ulcer: PLAN: Wound care (4) Hyperglycemia: PLAN: -Blood sugar on admission was slightly elevated although this nonfasting -No history of diabetes -A1c 5.2 PLAN: Plan Chronic Conditions: * Hypertension: Continue home atenolol. Continue home lisinopril * History of PAF: Patient is currently in sinus rhythm. Continue beta-jess. Continue home Xarelto * History of hyperlipidemia: Patient is not on any statin at baseline We will defer to outpatient * ANDREE: Noncompliant at baseline for sleep apnea treatment. States he threw away his machine as it kept waking him up. Would recommend oxygen at night if any signs of desaturation * History of tobacco abuse: Encourage continued cessation * Obesity: BMI 39.6. Recommend weight loss. Complicates treatment, prognosis, outcomes DVT prophylaxis -Continue home Xarelto CODE STATUS -Full code Disposition: TBD. Hopefully can dc in 1-2 days. Charges/Coding Visit Charges Inpatient E&M: 59344 Subs Hosp L2
[2021-12-14 08:27] LABS: Anion Gap 8 (5-15); BUN 18 mg/dL (7-18); BUN/Creat Ratio 15.7 RATIO (10-20); Calcium,Total 8.9 mg/dL (8.5-10.1); Chloride 105 mmol/L (98-107); Creatinine, Serum 1.15 mg/dL (0.70-1.30); EST Glomerular Filtration Rate 66 mL/min (>60); Est Glom Filt Rate - Afr Amer 80 mL/min (>60); Glucose 102 mg/dL (74-106); Potassium 3.6 mmol/L (3.5-5.1); Sodium Level 141 mmol/L (136-145)
[2021-12-14] MEDS: Atenolol 50 MG Tablet PO (08:42)
[2021-12-14] MEDS: Furosemide 40 MG Tablet PO ×2 (08:42→18:13)
[2021-12-14] MEDS: oxyCODONE 5 MG Tablet PO ×2 (08:49→15:22)
--- NOTE | 2021-12-14 11:22 | CASEMGMT ---
JON MI in to pt room to discuss dc planning after noting therapy notes and to discuss wound care and follow up. Pt working with therapy currently, JON MI to check back.
--- NOTE | 2021-12-14 11:43 | WOUNDNOTE ---
wound photo: left great toe
--- NOTE | 2021-12-14 11:44 | WOUNDNOTE ---
wound photo: right 2nd toe
--- NOTE | 2021-12-14 11:46 | WOUNDNOTE ---
wound photo: right lower leg
--- NOTE | 2021-12-14 11:46 | WOUNDNOTE ---
wound photo: right lateral lower leg
--- NOTE | 2021-12-14 11:47 | WOUNDNOTE ---
wound photo: right posterior lower leg
--- NOTE | 2021-12-14 13:35 | CASEMGMT ---
Social Work SW in to meet with pt. Introduced self and role at the hospital. Pt in good humor, joking with SW while he ate his lunch. SW discussed discharge plans with pt and reviewed PT/OT progress. Pt agreeable that he needs some assistance with rehabilitation. Patient was provided a list of?SNF?providers including quality and resource use data that is consistent with the patient?s preferred geographic region, medical needs, and insurance network. The patient?s preferred provider is [facility] as a second choice. JESSIE updated Megan at [facility] Megan reports she has open beds and is willing to accept pt. Megan to start precert today. PLAN: TCU, pending precert LEIA Tello
[2021-12-14] MEDS: Senna/Docusate Sodium 1 Tablet 2 TABLET PO (15:23)
[2021-12-14] MEDS: Rivaroxaban 20 MG Tablet PO (18:13)
[2021-12-14] MEDS: Lisinopril 10 MG Tablet PO (20:44)
[2021-12-15 02:42] VITALS: BP 157/83; PULSE 75; RESP 16; TEMP 37; O2SAT 96
[2021-12-15 06:37] LABS: Anion Gap 6 (5-15); BUN 18 mg/dL (7-18); BUN/Creat Ratio 16.1 RATIO (10-20); Chloride 100 mmol/L (98-107); Creatinine, Serum 1.12 mg/dL (0.70-1.30); EST Glomerular Filtration Rate 69 mL/min (>60); Est Glom Filt Rate - Afr Amer 83 mL/min (>60); Glucose 95 mg/dL (74-106); Potassium 3.5 mmol/L (3.5-5.1); Sodium Level 137 mmol/L (136-145)
[2021-12-15 06:45] LABS: Vancomycin, Random Level 13.9 ug/mL (0.0-15.0)
--- NOTE | 2021-12-15 07:30 | PN.HOSP_ITS ---
Subjective Subjective Legs still sore. Objective Data Objective Data Vital Signs: Vital Signs Temp Pulse Resp BP Pulse Ox O2 Del Method 37.0 C 75 16 157/83 H 96 Room Air 12/15/21 02:42 12/15/21 02:42 12/15/21 02:42 12/15/21 02:42 12/15/21 02:42 12/15/21 02:42 Oxygen Delivery Method Room Air Weight: 111.312 kg Body Mass Index (BMI) 39.6 Intake & Output: Intake and Output for Last 24 Hours 12/13/21 12/14/21 12/15/21 23:59 23:59 23:59 Intake Total 2553.75 / 2853.75 2551.25 / 2751.25 650 / 650 Output Total 3025 / 3475 2625 / 2625 825 / 825 Balance -471.25 / -621.25 -73.75 / 126.25 -175 / -175 Lab / Micro Data Result Diagrams: 12/13/21 06:05 12/15/21 06:00 Labs: Laboratory Results - last 24 hr 12/14/21 06:40: Sodium Cancelled, Potassium Cancelled, Chloride Cancelled, Carbon Dioxide Cancelled, Anion Gap Cancelled, BUN Cancelled, Creatinine Cancelled, Estim Creat Clear Calc Cancelled, Est GFR (MDRD) Af Amer Cancelled, Est GFR (MDRD) Non-Af Cancelled, BUN/Creatinine Ratio Cancelled, Glucose Cancelled, Calcium Cancelled 12/14/21 07:45: Sodium 141, Potassium 3.6, Chloride 105, Carbon Dioxide 28.0, Anion Gap 8, BUN 18, Creatinine 1.15, Estim Creat Clear Calc 52.40, Est GFR (MDRD) Af Amer 80, Est GFR (MDRD) Non-Af 66, BUN/Creatinine Ratio 15.7, Glucose 102, Calcium 8.9 12/15/21 06:00: Random Vancomycin 13.9 12/15/21 06:00: Sodium 137, Potassium 3.5, Chloride 100, Carbon Dioxide 31.0, Anion Gap 6, BUN 18, Creatinine 1.12, Estim Creat Clear Calc 53.80, Est GFR (MDRD) Af Amer 83, Est GFR (MDRD) Non-Af 69, BUN/Creatinine Ratio 16.1, Glucose 95, Calcium 9.0 Micro: Microbiology 12/12/21 11:55 Blood Culture (Wb) - Anticubital Left Blood Culture - Preliminary No growth in 48 hours. 12/12/21 11:30 Blood Culture (Wb) - Right Wrist Blood Culture - Preliminary No growth in 48 hours. 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 Staphylococcus aureus Physical Exam Const alert and no apparent distress Resp normal respiratory effort, no retractions, no use of accessory muscles and clear to auscultation bilaterally Cardio regular rate, regular rhythm, S1 normal heart sound and S2 normal heart sound GI normal to inspection, nondistended, normoactive bowel sounds Extremity Extremity Narrative: legs wrapped--did not remove. Assessment & Plan Assessment/Plan (1) Cellulitis of right leg: PLAN: Right lower extremity cellulitis/toe ulcer/leg pain -X-rays do not show any sign of invasive infection or osteomyelitis -Obtain wound cultures and MRSA PCR of the wound -Blood cultures obtained on admission -Podiatry consulted: recommended debridement. Pt currently declining. -I suspect this is worsened as the patient has not followed up as an outpatient for any care after discharge -Start vancomycin and Zosyn -Wound care consultation -As needed Oxy for pain -As needed Tylenol for pain -Duplex negative for DVT -She had arterial studies in July which were unimpressive for any signs of poor blood flow -Cx with polymicrobial with Serratia, GNR, Proteus sp, Staph aureus. Given that this is polymicrobial, this may be contaminant. Given the current circumstances we will continue to treat. Appears that all the organisms are sensitive to levofloxacin. (2) Lymphedema: PLAN: complicates carea and recovery SB wraps. Echo from 03/31/2020 shows an EF 60%. Echo 12/13 shows EF of 65%, RVSP estimated to be 27mmHg. Weight up 3 kg since May Continue furosemide (3) Toe ulcer: QUALIFIERS: Laterality: right Non-pressure ulcer stage: limited to breakdown of skin Qualified Code(s): L97.511 - Non-pressure chronic ulcer of other part of right foot limited to breakdown of skin PLAN: Wound care (4) Hyperglycemia: PLAN: -Blood sugar on admission was slightly elevated although this nonfasting -No history of diabetes -A1c 5.2 PLAN: Plan Chronic Conditions: * Hypertension: Continue home atenolol. Continue home lisinopril * History of PAF: Patient is currently in sinus rhythm. Continue beta-jess. Continue home Xarelto * History of hyperlipidemia: Patient is not on any statin at baseline We will defer to outpatient * ANDREE: Noncompliant at baseline for sleep apnea treatment. States he threw away his machine as it kept waking him up. Would recommend oxygen at night if any signs of desaturation * History of tobacco abuse: Encourage continued cessation * Obesity: BMI 39.6. Recommend weight loss. Complicates treatment, prognosis, outcomes DVT prophylaxis -Continue home Xarelto CODE STATUS -Full code Disposition: To TCU pending insurance authorization. Charges/Coding Visit Charges Inpatient E&M: 78236 Subs Hosp L2
[2021-12-15 07:35] VITALS: O2SAT 95
[2021-12-15] MEDS: Furosemide 40 MG Tablet PO ×2 (08:43→18:14)
[2021-12-15] MEDS: Atenolol 50 MG Tablet PO (08:43)
[2021-12-15 08:48] VITALS: BP 171/103; PULSE 70; RESP 20; TEMP 36.6; O2SAT 97
[2021-12-15] MEDS: oxyCODONE 5 MG Tablet PO ×3 (11:19→20:25)
--- NOTE | 2021-12-15 11:23 | PCM.RX.CS ---
Consult Pharmacy has been consulted to manage selected antiobiotic: Vancomycin Type of Consult: Follow-up Suspected Infection: Skin/Soft tissue Prior Doses of Antibiotics Received/Current Regimen: 1250MG IV Q12H Labs: Sodium 137 mmol/L (136-145) 12/15/21 06:00 Potassium 3.5 mmol/L (3.5-5.1) 12/15/21 06:00 Chloride 100 mmol/L (98-107) 12/15/21 06:00 Carbon Dioxide 31.0 mmol/L (21.0-32.0) 12/15/21 06:00 Anion Gap 6 (5-15) 12/15/21 06:00 BUN 18 mg/dL (7-18) 12/15/21 06:00 Creatinine 1.12 mg/dL (0.70-1.30) 12/15/21 06:00 Est GFR (MDRD) Af Amer 83 mL/min (>60) 12/15/21 06:00 Est GFR (MDRD) Non-Af 69 mL/min (>60) 12/15/21 06:00 BUN/Creatinine Ratio 16.1 RATIO (10-20) 12/15/21 06:00 Glucose 95 mg/dL (74-106) 12/15/21 06:00 Vancomycin Trough 21.7 ug/mL (5.0-15.0) H 12/14/21 00:20 Random Vancomycin 13.9 ug/mL (0.0-15.0) 12/15/21 06:00 Microbiology: Microbiology 12/12/21 14:55 Wound - Leg, Right Gram Stain - Final 12/12/21 14:55 Wound - Leg, Right Wound Culture - Final Serratia marcescens Klebsiella oxytoca Proteus hauseri Staphylococcus aureus 12/12/21 11:55 Blood Culture (Wb) - Anticubital Left Blood Culture - Preliminary No growth in 48 hours. 12/12/21 11:30 Blood Culture (Wb) - Right Wrist Blood Culture - Preliminary No growth in 48 hours. Weight used for dosin kg Estimated Creatinine Clearance: 70ml/min Goal Trough: 10-15 mcg/mL Pharmacy Plan for Drug Dosing: Random level this AM ~29 hours post last dose was 13.9 and in therapeutic range. Renal function reviewed and SCrCl calculated to be ~70ml/min using an adjusted body weight of 82.7kg. Will restart vancomycing at new dose and frequency of 750mg iv q12h. Trough level ordered for .. before 4th dose. Pharmacy Service will continue to monitor and adjust dosing as required. Follow-Up Labs: Trough Vancomycin - 8.19.22 @2130 before 2200 dose
--- NOTE | 2021-12-15 14:01 | CASEMGMT ---
Social Work (Late entry for 12/14/21) SW spoke to pt and reported to him that he has been accepted to TCU pending insurance precert. Pt voiced understanding. LEIA Tello
--- NOTE | 2021-12-15 14:38 | TREXTCAR_ITS ---
Diet Diet Order/Speech Therapy: 12/12/21 14:57 Diet: Cardiac - Heart Healthy Food consistency:: Regular Liquid Consistency:: Regular/Thin Is pt able to select menu?: Yes Routine Orders/Code Status Routine Lab Work: CBC and BMP Wound(s) R leg: Wound Type: cluster of weeping nonhealing wounds Dressing Change: betadine with Adaptic right 2nd toe: Wound Type: Neuropathic/Diabetic Foot Ulcer Dressing Change: Adaptic L elbow: Wound Type: Abrasion Therapies Weight Bearing: Full weight bearing Physical Therapy: Eval and Treat Occupational Therapy: Eval and Treat Problem/Diagnosis (1) Cellulitis of right leg: Status: Acute Code(s): L03.115 - Cellulitis of right lower limb Plan: Right lower extremity cellulitis/toe ulcer/leg pain -X-rays do not show any sign of invasive infection or osteomyelitis -Obtain wound cultures and MRSA PCR of the wound -Blood cultures obtained on admission -Podiatry consulted: recommended debridement. Pt currently declining. -I suspect this is worsened as the patient has not followed up as an outpatient for any care after discharge -Start vancomycin and Zosyn -Wound care consultation -As needed Oxy for pain -As needed Tylenol for pain -Duplex negative for DVT -She had arterial studies in July which were unimpressive for any signs of poor blood flow -Cx with polymicrobial with Serratia, GNR, Proteus sp, Staph aureus. Given that this is polymicrobial, this may be contaminant. Given the current circumstances we will continue to treat. Appears that all the organisms are sensitive to levofloxacin. (2) Lymphedema: Status: Acute Code(s): I89.0 - Lymphedema, not elsewhere classified Plan: complicates carea and recovery SB wraps. Echo from 03/31/2020 shows an EF 60%. Echo 12/13 shows EF of 65%, RVSP estimated to be 27mmHg. Weight up 3 kg since May Continue furosemide (3) Toe ulcer: Status: Acute Code(s): L97.509 - Non-pressure chronic ulcer of other part of unspecified foot with unspecified severity Plan: Wound care (4) Hyperglycemia: Status: Acute Code(s): R73.9 - Hyperglycemia, unspecified Plan: -Blood sugar on admission was slightly elevated although this nonfasting -No history of diabetes -A1c 5.2 Plan Chronic Conditions: * Hypertension: Continue home atenolol. Continue home lisinopril * History of PAF: Patient is currently in sinus rhythm. Continue beta-jess. Continue home Xarelto * History of hyperlipidemia: Patient is not on any statin at baseline We will defer to outpatient * ANDREE: Noncompliant at baseline for sleep apnea treatment. States he threw away his machine as it kept waking him up. Would recommend oxygen at night if any signs of desaturation * History of tobacco abuse: Encourage continued cessation * Obesity: BMI 39.6. Recommend weight loss. Complicates treatment, prognosis, outcomes DVT prophylaxis -Continue home Xarelto CODE STATUS -Full code Disposition: To TCU pending insurance authorization. Allergies/Procedures Done in Hospital Allergies apixaban [From Eliquis] Adverse Reaction (Intermediate, Verified 12/12/21 10:52) Wet the bed: found out later had UTI ibuprofen [From Motrin] Adverse Reaction (Verified 12/12/21 10:52) Nausea Type of Care/Length of Stay Estimated LOS: Convalescent Care Less Than 30 days Type of Care Needed: Skilled Rehab Potential: Good Prognosis: Good Additional Orders/Day of Discharge Day of Discharge: 12/15/21 Dietary and Speech Recommendations Dietitian Recommendations/Changes: continue cardiac diet as tolerated; will adjust ONS to Ensure Enlive 120mL TID to provide ~30 g additional protein/day per home routine Discharge Plan Admission Admit Date/Time: 12/12/21 13:37 Primary Reason for Your Visit: Cellulitis Attending Provider: Kervin Ortiz Primary Care Provider: Low Zheng Chi Consulting Providers: Hiram Cardenas ; Maria Esther Smith Discharge Orders/Prescriptions Prescriptions: New levofloxacin 500 mg Tablet 500 mg PO DAILY@0600 Qty: 4 0RF sennosides-docusate sodium [Stool Softener-Stimulant Laxat] 8.6-50 mg Tablet 2 tab PO BID PRN PRN (Reason: Constipation) Qty: 7 0RF oxycodone 5 mg Tablet 5 mg PO Q6H PRN (Reason: pain) 3 Days Qty: 12 0RF furosemide 40 mg Tablet 40 mg PO BIDLX Qty: 0 0RF lisinopril 20 mg Tablet 20 mg PO QHS Qty: 0 0RF Ensure Enlive 0.08 gram-1.5 kcal/mL Liquid 120 ml PO TIDCM Qty: 0 0RF Continued atenolol 50 MG tablet 50 mg PO DAILY Label Comments: blood pressure/heart health acetaminophen 325 MG tablet 500 mg PO Q4H PRN PRN (Reason: Mild-Moderate Pain (-09/06)) 0RF Xarelto 10 mg Tablet 20 mg PO DAILY Discontinued lisinopril 10 mg tablet 10 mg PO QHS Qty: 90 4RF Referrals / Follow Up: Low Zheng Chi, MD [Primary Care Provider] - Within 2 Weeks Disposition Disposition (needs filled in before D/C Order can be placed): [facility] ([facility]) Toe ulcer Qualifiers: Laterality: right Non-pressure ulcer stage: limited to breakdown of skin Qualified Code(s): L97.511 - Non-pressure chronic ulcer of other part of right foot limited to breakdown of skin
[2021-12-15 15:20] VITALS: BP 161/87; PULSE 61; RESP 18; TEMP 36.5; O2SAT 96
--- NOTE | 2021-12-15 15:27 | CASEMGMT ---
Social work SW updated that pt has been accepted to TCU and precert was obtained but a bed is not open until tomorrow. SW in to also update pt with this news. Pt voiced his understanding. SW asked if pt would like his sons to be updated and pt refused, stating he may call them later if he feels like it. LEIA Tello
--- NOTE | 2021-12-15 15:54 | PN_ITS ---
Subjective Subjective This is a 71-year-old man who is seen bedside today for right lower extremity wounds, second digit right foot wound, and left dorsal hallux wound. He states the leg is still painful. He has been continuing to elevate his legs when at rest. He denies any constitutional symptoms today. He has no further complaint s today. Objective Data Objective Data Vital Signs: Vital Signs Temp Pulse Resp BP Pulse Ox O2 Del Method 97.7 F L 61 18 161/87 H 96 Room Air 12/15/21 15:20 12/15/21 15:20 12/15/21 15:20 12/15/21 15:20 12/15/21 15:20 12/15/21 15:20 Oxygen Delivery Method Room Air Weight: 111.312 kg Body Mass Index (BMI) 39.6 Intake & Output: Intake and Output for Last 24 Hours 12/13/21 12/14/21 12/15/21 23:59 23:59 23:59 Intake Total 2553.75 / 2853.75 2551.25 / 2751.25 1553.25 / 1553.25 Output Total 3025 / 3475 2625 / 2625 1125 / 1125 Balance -471.25 / -621.25 -73.75 / 126.25 428.25 / 428.25 Lab / Micro Data Result Diagrams: 12/13/21 06:05 12/15/21 06:00 Labs: Laboratory Results - last 24 hr 12/15/21 06:00: Random Vancomycin 13.9 12/15/21 06:00: Sodium 137, Potassium 3.5, Chloride 100, Carbon Dioxide 31.0, Anion Gap 6, BUN 18, Creatinine 1.12, Estim Creat Clear Calc 53.80, Est GFR (MDRD) Af Amer 83, Est GFR (MDRD) Non-Af 69, BUN/Creatinine Ratio 16.1, Glucose 95, Calcium 9.0 Micro: Microbiology 12/12/21 14:55 Wound - Leg, Right Gram Stain - Final 12/12/21 14:55 Wound - Leg, Right Wound Culture - Final Serratia marcescens Klebsiella oxytoca Proteus hauseri Staphylococcus aureus 12/12/21 11:55 Blood Culture (Wb) - Anticubital Left Blood Culture - Preliminary No growth in 48 hours. 12/12/21 11:30 Blood Culture (Wb) - Right Wrist Blood Culture - Preliminary No growth in 48 hours. Physical Exam Const alert, oriented x3, no apparent distress and well nourished General Appearance: cooperative and comfortable HEENT normocephalic Eyes General Eye: normal appearance of both eyes Neck General: normal visual inspection Lymph Lymphatic: no lymphadenopathy noted and no lymphedema noted Chest inspection of chest normal Resp normal respiratory effort Cardio regular rate and regular rhythm Extremity Extremity Narrative: Right lower extremity: DP and PT pulses nonpalpable secondary to edema. Cap fill time less than 5 seconds to the digits. Left lower extremity: DP and PT pulses weakly palpable. Cap fill time less than 5 seconds to the digits. Skin Skin Narrative: Right lower extremity: Right lower extremity demonstrates nonpitting edema with multiple lower extremity ulcerations posterior and anterior leg with surrounding erythema. The skin is shiny and taut secondary to his edema and trophic changes. There is also diffuse hemosiderin deposition secondary to chronic venous insufficiency. Left lower extremity: Skin is intact with no rashes or lesions. Skin demonstrates normal turgor. Anterior left lower extremity demonstrates an area of friable skin secondary to chronic venous insufficiency. No open wounds to the lower extremity. Slight lower extremity edema noted. Wound Narrative: Right lower extremity: Multiple ulcerations noted to the posterior aspect of the lower extremity and anterior lateral aspect of the lower extremity. Ulcerative site demonstrates a 100% thickened, yellow fibrotic wound bed with rolled wound edges. Ulcerative sites are painful to palpation. Ulcerative sites demonstrate surrounding localized erythema with heavy serosanguineous drainage due to a component of chronic venous insufficiency. Some fibrotic tissue is easily removed by dressings. No purulent drainage. no malodor. Left lower extremity: There is a small ulceration noted to the dorsal aspect of the left foot with overlying dried blood. Ulcerative site measures 0.4 cm x 0.6 cmx 0.1cm. No erythema, no purulent drainage, no malodor, or other localized signs of infection. Neuro oriented x3 and moves all extremities Neuro Narrative: There is some weakness to the right lower extremity compared to the left lower e xtremity Psych cooperative and affect normal Assessment & Plan Assessment/Plan (1) Cellulitis of right leg: (2) 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 layer exposed: (3) Venous insufficiency: (4) Skin ulcer of left great toe with fat layer exposed: (5) Hyperglycemia: (6) Lymphedema: (7) Pain in right lower leg: (8) Pain of left great toe: PLAN: Plan Patient seen and evaluated I discussed again with him today performing a debridement of his multiple u lceration sites of the right lower extremity and the dorsal left hallux. He again refuses debridement stating that he feels it is unnecessary and causes significant pain. I also discussed returning to the wound care center for continued management of his ulcerative sites following his discharge, to which he does refuse this as well. I asked him if he wanted his leg to get better he stated yes, but I do not want you to touch. Wound/infection: Right lower extremity multiple focal ulcerations demonstrate 100% thick, yellow fibrotic tissue with rolled wound edges. There is some slight maceration about the wound margins at the posterior leg. Erythema is continuing to decrease about the wound margins and right lower extremity. He demonstrates pain to palpation about the ulcerative sites. Some of the thickened fibrotic tissue can be removed upon removal of dressings and is decreasing s econdary to this. He continues to demonstrate heavy serosanguineous drainage of the ulcerative sites secondary to his chronic venous insufficiency. There is diffuse hemosiderin deposition about the right lower extremity. Wound sites demonstrate no purulent drainage and no malodor, no palpable fluctuance, no crepitus, and no visible abscess. Left dorsal hallux wound demonstrates no malodor or purulent drainage or erythema. WBC currently at 9. Currently on IV Vanco/Zosyn Cultures: Blood cultures obtained and negative for growth. Wound culture demonstrates Serratia marcescens, Klebsiella oxytoca, Proteus hauseri, and staph aureus. Staph aureus protein A PCR positive. MRSA PCR negative. Vascular: Nonpalpable DP and PT pulses secondary to edema of the right lower extremity. He did have LEAS from 09/18 which did demonstrate some noncompressible vessels of the foot despite adequate waveforms and NATHEN. Critical limb ischemia was not suspected at this time despite having some vascular co mpromise. He also had audible pedal pulses on Doppler. Edema: He is to continue to elevate both lower extremities at all times of rest. Bilateral compression dressing via Jaden wrap. He was encouraged to return to his juxta light lower extremity compression wraps following his discharge. Radiographs: Right ankle/tib-fib x-ray demonstrates diffuse soft tissue swelling with no osteomyelitis. Right foot x-ray demonstrates diffuse soft tissue swelling at the dorsum of the foot with no osteomyelitis. Dressing: Betadine soaked Adaptic to the ulcerative sites, Aquacel Ag overlying the ulcerative sites, ABD, Kerlix, and Jaden wrap compression to the right lower extremity. Left hallux Betadine and dry sterile dressing with Jaden wrap compression. Nursing to change dressings daily to the left leg and daily to twice daily to the right leg pending strikethrough. Wash: He may wash sites with soap and water and pat the area dry. Pain: Tylenol and Oxyir Host factors: Chronic venous insufficiency Medicine team following for medical management, this is greatly appreciated. Podiatry will continue to follow while in house for cellulitis and local wound care. He refuses any debridement to be performed today and refuses follow-up at the wound care center upon discharge. However I again discussed with him to consider allowing for debridement to remove the thick fibrotic tissue to allow the wounds to heal better. I do not anticipate surgical intervention at this time. Please do not hesitate to call for any questions or concerns. Hiram Cardenas Jr., D.P.M. [facility] [phone] Note: [employer]ge[employer] speech recognition hand funnel coater software was used to create portions of this document. Sound-alike and misspelled words, as well as other hand funnel coater errors may be contained in the documentation.
[2021-12-15] MEDS: Rivaroxaban 20 MG Tablet PO (18:13)
[2021-12-15] MEDS: Acetaminophen 325 MG Tablet 650 MG PO (20:26)
[2021-12-15 20:35] VITALS: BP 150/82; PULSE 70; RESP 18; TEMP 36.8; O2SAT 99
[2021-12-15] MEDS: Lisinopril 20 MG Tablet PO (21:45)
[2021-12-15] MEDS: 0.9% Saline Lock 10 ML Syringe IV (21:45)
[2021-12-16 02:24] VITALS: BP 136/87; PULSE 73; RESP 16; TEMP 36.9; O2SAT 98
[2021-12-16] MEDS: levoFLOXacin 500 MG Tablet PO (05:29)
[2021-12-16] MEDS: 0.9% Saline Lock 10 ML Syringe IV ×2 (05:29→10:20)
[2021-12-16 07:40] VITALS: BP 147/75; PULSE 64; RESP 18; TEMP 36.6; O2SAT 98
[2021-12-16] MEDS: Acetaminophen 325 MG Tablet 650 MG PO (08:04)
[2021-12-16] MEDS: oxyCODONE 5 MG Tablet PO (08:04)
[2021-12-16] MEDS: Atenolol 50 MG Tablet PO (08:52)
[2021-12-16] MEDS: Furosemide 40 MG Tablet PO (08:52)
--- NOTE | 2021-12-16 09:25 | DS.PCM_ITS ---
Providers Date of Admission: 12/12/21 Primary Care Physician: Dr. Low Zheng MD Consultations 12/12/21 14:57 Consult: Podiatry Routine Consulting Provider: Hiram Cardenas Reason for Consult: Foot wound EMERGENT Consult: No MD Notified: Yes Date Notified: 12/12/21 Time Notified: 13:44 Method of Notification: ED Physician Initiated 12/12/21 15:17 Consult: Onc/Wound/design consultant Routine Comment: Reason for Consult:: right lower leg, foot Reason For Visit: cellulitis Diagnosis Discharge Diagnosis (1) Cellulitis of right leg: Status: Acute Code(s): L03.115 - Cellulitis of right lower limb Plan: Right lower extremity cellulitis/toe ulcer/leg pain -X-rays do not show any sign of invasive infection or osteomyelitis -Obtain wound cultures and MRSA PCR of the wound -Blood cultures obtained on admission -Podiatry consulted: recommended debridement. Pt currently declining. -I suspect this is worsened as the patient has not followed up as an outpatient for any care after discharge -Start vancomycin and Zosyn -Wound care consultation -As needed Oxy for pain -As needed Tylenol for pain -Duplex negative for DVT -She had arterial studies in July which were unimpressive for any signs of poor blood flow -Cx with polymicrobial with Serratia, GNR, Proteus sp, Staph aureus. Given that this is polymicrobial, this may be contaminant. Given the current circumstances we will continue to treat. Appears that all the organisms are sensitive to levofloxacin. (2) 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 layer exposed: Status: Chronic Code(s): L97.212 - 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 layer exposed (3) Venous insufficiency: Status: Acute Code(s): I87.2 - Venous insufficiency (chronic) (peripheral) (4) Skin ulcer of left great toe with fat layer exposed: Status: Acute Code(s): L97.522 - Non-pressure chronic ulcer of other part of left foot with fat layer exposed (5) Hyperglycemia: Status: Acute Code(s): R73.9 - Hyperglycemia, unspecified Plan: -Blood sugar on admission was slightly elevated although this nonfasting -No history of diabetes -A1c 5.2 (6) Lymphedema: Status: Acute Code(s): I89.0 - Lymphedema, not elsewhere classified Plan: complicates carea and recovery SB wraps. Echo from 03/31/2020 shows an EF 60%. Echo 12/13 shows EF of 65%, RVSP estimated to be 27mmHg. Weight up 3 kg since May Continue furosemide (7) Pain in right lower leg: Status: Acute Code(s): M79.661 - Pain in right lower leg (8) Pain of left great toe: Status: Acute Code(s): M79.675 - Pain in left toe(s) Plan Chronic Conditions: * Hypertension: Continue home atenolol. Continue home lisinopril * History of PAF: Patient is currently in sinus rhythm. Continue beta-jess. Continue home Xarelto * History of hyperlipidemia: Patient is not on any statin at baseline We will defer to outpatient * ANDREE: Noncompliant at baseline for sleep apnea treatment. States he threw away his machine as it kept waking him up. Would recommend oxygen at night if any signs of desaturation * History of tobacco abuse: Encourage continued cessation * Obesity: BMI 39.6. Recommend weight loss. Complicates treatment, prognosis, outcomes DVT prophylaxis -Continue home Xarelto CODE STATUS -Full code Disposition: To TCU today Medications at Discharge Home Medications atenolol 50 mg tablet 50 mg PO DAILY HTN 08/23/14 acetaminophen 325 mg tablet 500 mg PO Q4H PRN PRN Mild-Moderate Pain (1-5/10) 07/26/18 rivaroxaban 10 mg tablet (Xarelto) 20 mg PO DAILY CIRCULATION 06/07/21 food supplemt, lactose-reduced 0.08 gram-1.5 kcal/mL oral liquid (Ensure Enlive) 120 ml PO TIDCM #0 mL 12/15/21 furosemide 40 mg tablet 40 mg PO BIDLX #0 tabs 12/15/21 levofloxacin 500 mg tablet 500 mg PO DAILY@0600 #4 tabs 12/15/21 lisinopril 20 mg tablet 20 mg PO QHS #0 tabs 12/15/21 oxycodone 5 mg tablet 5 mg PO Q6H PRN pain 3 days #12 tabs 12/15/21 sennosides 8.6 mg-docusate sodium 50 mg tablet (Stool Softener-Stimulant Laxative) 2 tab PO BID PRN PRN Constipation #7 tabs 12/15/21 Physical Exam Narrative Had pain in legs today with dressing change. Const alert and no apparent distress Constitutional Narrative: working with therapy. able to stand with therapy. Extremity Extremity Narrative: legs wrapped--did not remove. Weight / BMI Weight Weight: 111.312 kg Body Mass Index (BMI) 39.6 ABG / Lab / Microbiology Data Result Diagrams: 12/13/21 06:05 12/15/21 06:00 Microbiology: Microbiology 12/12/21 14:55 Wound - Leg, Right Gram Stain - Final 12/12/21 14:55 Wound - Leg, Right Wound Culture - Final Serratia marcescens Klebsiella oxytoca Proteus hauseri Staphylococcus aureus 12/12/21 11:55 Blood Culture (Wb) - Anticubital Left Blood Culture - Preliminary No growth in 48 hours. 12/12/21 11:30 Blood Culture (Wb) - Right Wrist Blood Culture - Preliminary No growth in 48 hours. Meaningful Use Info Meaningful Use Diagnoses (Choose all that apply): None applicable Discharge Plan Admission Admit Date/Time: 12/12/21 13:37 Primary Reason for Your Visit: Cellulitis Attending Provider: Kervin Ortiz Primary Care Provider: Low Zheng Chi Consulting Providers: Hiram Cardenas ; Maria Esther Smith Discharge Orders/Prescriptions Prescriptions: New levofloxacin 500 mg Tablet 500 mg PO DAILY@0600 Qty: 4 0RF sennosides-docusate sodium [Stool Softener-Stimulant Laxat] 8.6-50 mg Tablet 2 tab PO BID PRN PRN (Reason: Constipation) Qty: 7 0RF oxycodone 5 mg Tablet 5 mg PO Q6H PRN (Reason: pain) 3 Days Qty: 12 0RF furosemide 40 mg Tablet 40 mg PO BIDLX Qty: 0 0RF lisinopril 20 mg Tablet 20 mg PO QHS Qty: 0 0RF Ensure Enlive 0.08 gram-1.5 kcal/mL Liquid 120 ml PO TIDCM Qty: 0 0RF Continued atenolol 50 MG tablet 50 mg PO DAILY Label Comments: blood pressure/heart health acetaminophen 325 MG tablet 500 mg PO Q4H PRN PRN (Reason: Mild-Moderate Pain (1-5/10)) 0RF Xarelto 10 mg Tablet 20 mg PO DAILY Discontinued lisinopril 10 mg tablet 10 mg PO QHS Qty: 90 4RF Referrals / Follow Up: Low Zheng Chi, MD [Primary Care Provider] - Within 2 Weeks Disposition Disposition (needs filled in before D/C Order can be placed): [facility] Facility Charges/Coding Visit Charges Inpatient E&M: 94819 Disch Hosp
--- NOTE | 2021-12-16 09:47 | PHA.DC.MR ---
Pharmacy Service has performed discharge medication reconciliation for this patient. The patient's discharge medication list was reviewed for discrepancies and discrepancies were resolved. Home Medications atenolol 50 mg tablet 50 mg PO DAILY HTN 08/23/14 acetaminophen 325 mg tablet 500 mg PO Q4H PRN PRN Mild-Moderate Pain (1-5/10) 07/26/18 rivaroxaban 10 mg tablet (Xarelto) 20 mg PO DAILY CIRCULATION 06/07/21 food supplemt, lactose-reduced 0.08 gram-1.5 kcal/mL oral liquid (Ensure Enlive) 120 ml PO TIDCM #0 mL 12/15/21 furosemide 40 mg tablet 40 mg PO BIDLX #0 tabs 12/15/21 levofloxacin 500 mg tablet 500 mg PO DAILY@0600 #4 tabs 12/15/21 lisinopril 20 mg tablet 20 mg PO QHS #0 tabs 12/15/21 oxycodone 5 mg tablet 5 mg PO Q6H PRN pain 3 days #12 tabs 12/15/21 sennosides 8.6 mg-docusate sodium 50 mg tablet (Stool Softener-Stimulant Laxative) 2 tab PO BID PRN PRN Constipation #7 tabs 12/15/21
--- NOTE | 2021-12-16 10:19 | CASEMGMT ---
Social Work Per Dr. Ortiz, patient medically cleared for discharge today. Telephone call to the Transitional Care Unit, Megan. Megan confirms to be able to accept patient today. Medical team updated, patient updated. Patient request for this [employer] social worker to update patient son, Naeem. Telephone call to Naeem Hartley updated on patient discharge today. Naeem voiced understanding. Proposed discharge date: 12/16/2021 PLAN: skilled. Efraín HERNANDEZ, PULPER-S
--- NOTE | 2021-12-16 12:21 | CASEMGMT ---
Social Work SW faxed med list to [facility]. LEIA Tello
[2021-12-16 13:11] VITALS: BP 103/59; PULSE 109; RESP 16; TEMP 36.4; O2SAT 99
== END 2021-12-16 16:31 | disposition skilled nursing facility (03) | DRG 603 ==
LOC: ED 13:13 → MS3 13:54
PROVIDERS: Admitting Provider Internal Medicine; Emergency Provider Emergency Medicine; PCP Family Medicine Geriatric Medicine
DX: L03.115 Cellulitis of right lower limb (principal); L97.212 Non-pressure chronic ulcer of right calf with fat layer exposed; L97.522 Non-pressure chronic ulcer of other part of left foot with fat layer exposed; I48.91 Unspecified atrial fibrillation; E78.5 Hyperlipidemia, unspecified; I10 Essential (primary) hypertension; I87.2 Venous insufficiency (chronic) (peripheral); I89.0 Lymphedema, not elsewhere classified; I25.10 Atherosclerotic heart disease of native coronary artery without angina pectoris; G47.33 Obstructive sleep apnea (adult) (pediatric); Z79.01 Long term (current) use of anticoagulants; Z87.891 Personal history of nicotine dependence; E66.9 Obesity, unspecified; Z68.39 Body mass index [BMI] 39.0-39.9, adult; Z79.1 Long term (current) use of non-steroidal anti-inflammatories (NSAID); R73.9 Hyperglycemia, unspecified
CPT/HCPCS: 36415; 73502; 73590; 73620; 80048; 80053; 80202; 83036; 83605; 83735; 84100; 85025; 87040; 87070; 87077; 87186; 87205; 87426; 87640; 93306; 93970; 97110; 97116; 97162; 97166; 97530; 97535; 97802; 99251; 99284; J7040; J7050; Q9957; A4216; C8929; G0463; J1940

== ENCOUNTER 2021-12-16 17:00 | Inpatient (IN) | payer MEDICARE, SELFPAY ==
[2021-12-16 17:13] VITALS: BP 135/80; PULSE 82; RESP 16; TEMP 36.9; O2SAT 94; BMI 39.0
--- NOTE | 2021-12-16 19:07 | HP.PCM_ITS ---
HPI - General General Date of Admission: 12/16/21 Date of Service: 12/16/21 Chief Complaint: Here for rehab. HPI Narrative 12/12/2021 TURNER YAN, is a 71 Male who presents to [facility] Emergency Department with cellulitis. Pain, swelling, burning, drainage right lower extremity 1 month. Wounds right 2nd toe, right lower extremity x 2. Morphine given for pain. Zosyn, Vancomycin given. CBCD okay, BMP okay, Lactate okay, blood culture sent. X-ray right tibia/fibula negative for fracture, osteomyelitis. 12/12/2021 Admit to Hospital. Consult Podiatry for right foot wound, right lower extremity wound. Zosyn, Vancomycin IV right lower extremity cellulitis. Tylenol, Oxycodone for pain. Previous NATHEN doppler negative for significant peripheral arterial occlusive disease. 12/12/2021 Dr. Wilkinson offered debridement right foot, right lower extremity wound, patient declined. 12/13/2021 Legs feeling better. Doppler ultrasound left lower extremity for edema. Add Furosemide for weight gain. 12/13/2021 Echo EF 65%. Normal Left ventricular systolic function. Right ventricular systolic pressure 27mm hg. 12/14/2021 Doppler ultrasound left lower extremity NEGATIVE dvt. Zosyn, Vancomycin IV right lower extremity cellulitis, wound culture polymicrobial. 12/15/2021 Legs still sore. Culture sensitive to Levaquin. 12/15/2021 Dr. Wilkinson offered debridement again, patient refused. Also refused f/u a wound center. Patient admitted for same problem 3 months ago, never followed up with wound center. Blood culture negative. Wound culture growing Serratia Marcescens, Klebsiella Oxytoca, Proteus Russell useri, Staph Aureus. 12/16/2021 Admit to TCU with debility, here for rehabilitation, strengthening, prior to discharge home alone. 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, nasal cavity and accessory sinuses BPH (benign prostatic hyperplasia) Cardiac murmur, unspecified Cervical disc disease Dyspnea on minimal exertion Essential (primary) hypertension Former smoker GERD (gastroesophageal reflux disease) Hyperlipidemia New onset atrial fibrillation (03/24/20) Obesity ANDREE (obstructive sleep apnea) Pain of left lower extremity due to injury Skin ulcer of left great toe with fat layer exposed Traumatic hematoma of left lower leg Home Medications atenolol 50 mg tablet 50 mg PO DAILY HTN 08/23/14 [History Last Taken 12/15/21 08:45] acetaminophen 325 mg tablet 500 mg PO Q4H PRN PRN Mild-Moderate Pain (1-5/10) 07/26/18 [Rx Last Taken 12/11/21] rivaroxaban 10 mg tablet (Xarelto) 20 mg PO DAILY CIRCULATION 06/07/21 [History Last Taken 12/14/21 18:15] oxycodone 5 mg tablet 5 mg PO Q6H PRN pain 3 days #12 tabs 12/15/21 [Rx Last Taken 12/15/21 11:20] sennosides 8.6 mg-docusate sodium 50 mg tablet (Stool Softener-Stimulant Laxative) 2 tab PO BID PRN PRN Constipation #7 tabs 12/15/21 [Rx Last Taken 12/14/21 15:25] food supplemt, lactose-reduced 0.08 gram-1.5 kcal/mL oral liquid (Ensure Enlive) 120 ml PO TIDCM Nutritional supplement 12/16/21 [History Last Taken 12/15/21 08:00] furosemide 40 mg tablet 40 mg PO BIDLX water pill 12/16/21 [History Last Taken 12/15/21 08:40] levofloxacin 500 mg tablet 500 mg PO DAILY@0600 antibiotic 12/16/21 [History Last Taken Unknown] lisinopril 20 mg tablet 20 mg PO QHS blood pressure 12/16/21 [History Last Taken 12/14/21 20:45] Allergy/AdvReac Type Severity Reaction Status Date / Time apixaban [From Eliquis] AdvReac Intermediate Wet the Verified 12/12/21 10:52 bed: found out later had UTI ibuprofen [From Motrin] AdvReac Nausea Verified 12/12/21 10:52 Family History Mother CAD (coronary artery disease) Hypertension History of cardiac radiofrequency ablation Sister Hypertension Other Arthritis Surgical History H/O cervical spine surgery History of bursectomy History of carpal tunnel release History of carpal tunnel surgery History of coronary artery stent placement (11/29/10) History of fusion of cervical spine History of herniorrhaphy History of removal of cyst History of transurethral resection of prostate Social History household members: none Smoking Status: Former smoker alcohol intake: current details: occasional substance use type: does not use additional social history: DOES NOT TAKE ASPIRIN DOES NOT TAKE IBUPROFEN ROS Constitutional Constitutional: Denies chills, fever(s) or weight gain ENT HEENT: Denies headache(s), nasal congestion or nasal discharge Cardiovascular Cardiovascular: Denies chest pain or palpitations Respiratory/Chest Respiratory/Chest: Denies cough, excessive phlegm production or shortness of breath with exertion Gastrointestinal Gastrointestinal: Denies abdominal pain, nausea or vomiting Genitourinary Genitourinary: Denies dysuria Musculoskeletal Musculoskeletal: Denies joint pain or joint swelling Integumentary Integumentary: Denies rash or wounds Neurologic Neurologic: Denies focal weakness, numbness or tingling Psychiatric Psychiatric: Denies anxiety, auditory hallucinations, depression, homicidal ideation or suicidal ideation Physical Exam Const alert General Appearance: cooperative HEENT normocephalic Eyes PERRL and EOMs intact bilaterally Neck supple, no JVD and no carotid bruits Resp normal respiratory effort, normal air movement and clear to auscultation bilaterally Cardio regular rate and regular rhythm GI normal to inspection, nondistended, normoactive bowel sounds, non-tender and non-distended Extremity normal capillary refill Extremity Narrative: Bilateral lower extremity dressed, SB wrapped. General Extremity: Negative for edema Skin no rashes or lesions noted General Skin Exam: no breakdown Psych affect normal Appearance: appropriate Assessment & Plan Assessment/Plan (1) Debility: (2) Cellulitis of right leg: (3) 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 layer exposed: (4) Skin ulcer of left great toe with fat layer exposed: (5) Pain in right lower leg: (6) Lymphedema: (7) Atrial fibrillation: (8) Hypertension: (9) Coronary artery disease: PLAN: Plan 71 year old male with below past medical history hospitalized for right lower extremity cellulitis, right lower extremity wounds, declined debridement, admitted to TCU with debility, here for rehabilitation, strengthening, prior to discharge home alone. * Debility - PT/OT. * Pain - Tylenol 1000mg q6h prn pain (1-3), Oxycodone 5mg q4h prn pain (4-10). * Bowel - Senna/colace 2 tablets bid, Dulcolax 10mg daily prn. * Adult immunization - Administer pneumonia vaccine, covid19 vaccine, flu vaccine as appropriate. * DVT prophylaxis - Not necessary, on Xarelto. * Atrial Fibrillation - Atenolol 50mg daily, Xarelto 20mg daily. * Nutrition - Ensure Enlive 120ml po tidcm. * Lymphedema - Furosemide 40mg daily. * Cellulitis right lower extremity - Levaquin 500mg daily thru 12/22/2021. * Coronary Artery Disease - Atenolol 50mg daily, Lisinopril 20mg qhs, Xarelto 20mg daily.
[2021-12-16] MEDS: Acetaminophen 500 MG Tablet 1000 MG PO (21:48)
[2021-12-16] MEDS: oxyCODONE 5 MG Tablet PO (21:48)
[2021-12-16] MEDS: Lisinopril 20 MG Tablet PO (21:49)
[2021-12-16] MEDS: Rivaroxaban 20 MG Tablet PO (21:49)
[2021-12-16 22:45] VITALS: RESP 16
[2021-12-16 23:13] VITALS: BP 132/84; PULSE 62
[2021-12-17] MEDS: Furosemide 40 MG Tablet PO ×2 (04:36→14:36)
[2021-12-17] MEDS: Senna/Docusate Sodium 1 Tablet 2 TABLET PO ×2 (04:36→16:57)
[2021-12-17] MEDS: Atenolol 50 MG Tablet PO (04:36)
[2021-12-17] MEDS: levoFLOXacin 500 MG Tablet PO (04:36)
[2021-12-17 07:18] LABS: Absolute Lymphocyte Count 1.28 X10^3/uL (0.83-4.51); Absolute Neutrophil Count 6.9 X10^3/uL (2.0-7.7); Basophil# 0.04 X10^3/uL; Basophil% 0.4 % (0-1); Eosinophil# 0.39 X10^3/uL; Eosinophils% 4.1 % (0-5); Hemoglobin 14.6 g/dL (13.0-16.5); Lymphocyte # 1.28 X10^3/ul (0.83-4.51); Lymphocyte % 13.4 % (19-41); Mean Corp Hgb Conc 33.2 g/dL (32-36); Mean Corpuscular Hgb 30.7 pg (27.0-32.0); Mean Corpuscular Volume 92.4 fL (80-94); Mean Platelet Vol. 9.7 fl (6.2-12.0); Monocyte# 0.91 X10^3/uL; Monocyte% 9.6 % (0-10); NRBC Flagged by Analyzer 0 % (0-5); Neutrophil # 6.87 X10^3/uL (2.7-7.7); Neutrophil % 72.2 % (47-70); Platelet Count 218 K/mm3 (150-450); RBC Distribution Width CV 13.8 % (11.6-14.6); Red Blood Count 4.76 M/mm3 (4.6-6.2); White Blood Count 9.5 K/mm3 (4.4-11.0)
[2021-12-17 07:38] LABS: Anion Gap 5 (5-15); BUN 22 mg/dL (7-18); BUN/Creat Ratio 20.2 RATIO (10-20); Calcium,Total 8.9 mg/dL (8.5-10.1); Chloride 101 mmol/L (98-107); Creatinine, Serum 1.09 mg/dL (0.70-1.30); EST Glomerular Filtration Rate 71 mL/min (>60); Est Glom Filt Rate - Afr Amer 86 mL/min (>60); Estimated Creatinine Clearance 55.28 ml/min; Glucose 99 mg/dL (74-106); Potassium 3.3 mmol/L (3.5-5.1); Sodium Level 138 mmol/L (136-145)
[2021-12-17] MEDS: Potassium Chloride Oral Tablet 20 MEQ 40 MEQ PO (10:00)
[2021-12-17] MEDS: oxyCODONE 5 MG Tablet PO ×2 (11:48→16:58)
[2021-12-17] MEDS: Nystatin Powder 15gm Bottle 1 APPLIC TOPICAL ×2 (11:49→17:00)
[2021-12-17] MEDS: Tuberculin,Purif.prot.deriv. 50 TU/ML Vial 0.1 ML ID (14:32)
[2021-12-17 14:38] VITALS: BP 115/73; PULSE 78
[2021-12-17 16:00] VITALS: PULSE 58; RESP 16; TEMP 36.7; O2SAT 96
[2021-12-17] MEDS: Rivaroxaban 20 MG Tablet PO (16:56)
[2021-12-17] MEDS: Lisinopril 20 MG Tablet PO (20:44)
[2021-12-18] MEDS: oxyCODONE 5 MG Tablet PO (05:16)
[2021-12-18] MEDS: Furosemide 40 MG Tablet PO ×2 (05:18→14:02)
[2021-12-18] MEDS: levoFLOXacin 500 MG Tablet PO (05:18)
[2021-12-18] MEDS: Nystatin Powder 15gm Bottle 1 APPLIC TOPICAL ×2 (05:18→16:44)
[2021-12-18] MEDS: Atenolol 50 MG Tablet PO (05:27)
[2021-12-18 06:02] LABS: Anion Gap 6 (5-15); BUN 26 mg/dL (7-18); Calcium,Total 8.8 mg/dL (8.5-10.1); Chloride 102 mmol/L (98-107); Creatinine, Serum 1.18 mg/dL (0.70-1.30); EST Glomerular Filtration Rate 65 mL/min (>60); Est Glom Filt Rate - Afr Amer 78 mL/min (>60); Estimated Creatinine Clearance 51.06 ml/min; Glucose 94 mg/dL (74-106); Potassium 3.7 mmol/L (3.5-5.1); Sodium Level 138 mmol/L (136-145)
[2021-12-18] MEDS: Potassium Chloride Oral Tablet 20 MEQ PO (08:39)
[2021-12-18 14:04] VITALS: BP 136/83; PULSE 61
[2021-12-18 14:46] LABS: Absolute Lymphocyte Count 1.14 X10^3/uL (0.83-4.51); Basophil# 0.04 X10^3/uL; Basophil% 0.3 % (0-1); Eosinophil# 0.43 X10^3/uL; Eosinophils% 3.7 % (0-5); Hematocrit 44.6 % (40-54); Hemoglobin 14.7 g/dL (13.0-16.5); Lymphocyte # 1.14 X10^3/ul (0.83-4.51); Lymphocyte % 9.8 % (19-41); Mean Corpuscular Hgb 29.9 pg (27.0-32.0); Mean Corpuscular Volume 90.7 fL (80-94); Mean Platelet Vol. 9.4 fl (6.2-12.0); Monocyte# 0.96 X10^3/uL; Monocyte% 8.3 % (0-10); NRBC Flagged by Analyzer 0 % (0-5); Neutrophil # 8.98 X10^3/uL (2.7-7.7); Neutrophil % 77.4 % (47-70); Platelet Count 238 K/mm3 (150-450); RBC Distribution Width CV 13.9 % (11.6-14.6); RBC Distribution Width SD 46.3 fl (35.1-43.9); Red Blood Count 4.92 M/mm3 (4.6-6.2); White Blood Count 11.6 K/mm3 (4.4-11.0)
--- NOTE | 2021-12-18 15:11 | NURSING ---
Addendum entered by Carolina Torres 12/18/21 17:45: Dr. Zheng updated on pt's labs. N.O. for repeat CBC 12/19/21. Original Note: Pt seeing objects and things that are not really there. Pt states there is a garrick bear on my toe and bugs crawling all over the floor. VS T 97.5 Temporal Pulse 60 RR 20 SpO2 95% RA BP 117/72. Dr. Zheng notified new order for CBC, Urinalysis, covid swab, discontinue Oxycodone and Tramadol 50 mg q6hr prn. Will continue to monitor call light within reach and son at bedside.
[2021-12-18 15:58] LABS: Bacteria 0 SEEN /hpf (None Seen); Mucous, Urine 0 SEEN /hpf (<or=2+); Red Blood Cells-Urine 0 SEEN /hpf (0-5); Squamous Epithelial Cells - UA 0 SEEN /hpf (0-5); White Blood Cells 0 SEEN /hpf (0-5)
[2021-12-18 15:59] LABS: Color, Urine Yellow (Yellow); Glucose, Dipstick Normal (Normal); Ketone-Dipstick Negative (Negative); Leukocyte Esterase-Dipstick Negative /ul (Negative); Nitrite-Dipstick Negative (Negative); Occult Blood-Urine Negative /ul (Negative); Protein-Dipstick Negative (Negative); Urine Bilirubin Dipstick Negative (Negative); Urine Clarity Clear (Clear); Urine Urobilinogen Normal (Normal)
[2021-12-18] MEDS: Rivaroxaban 20 MG Tablet PO (16:45)
[2021-12-18] MEDS: Senna/Docusate Sodium 1 Tablet 2 TABLET PO (16:46)
--- NOTE | 2021-12-18 18:59 | NURSING ---
Dressing changed to BLE wounds cleansed, adaptic and DSD applied.
[2021-12-18] MEDS: Lisinopril 20 MG Tablet PO (22:05)
[2021-12-18 22:15] VITALS: BP 142/92
--- NOTE | 2021-12-19 04:37 | NURSING ---
Pt calls this nurse into room. Sitting in armless chair beside bed. Would like to move to recliner chair. Repeatedly verbalizes seeing bugs all over his bed, along the wall, and bugs are moving the linen cart. He does not wish to stay here is he will be kept in this room. Informed pt this nurse does not see any bugs and will not move rooms at this time. Plan to update oncoming nurse and have housekeeping assess room. He is agreeable to this plan. Pt reports if there is not a solution to his issues with the room, he would like to leave. Educated pt on the potential consequences that may ensue if care needs are not met for his lower extremity wounds. Transferred to chair per BAND SPLICER and call light w/ in reach. Will conttinue to monitor.
[2021-12-19] MEDS: levoFLOXacin 500 MG Tablet PO (05:16)
[2021-12-19] MEDS: Furosemide 40 MG Tablet PO ×2 (05:17→14:28)
[2021-12-19] MEDS: Atenolol 50 MG Tablet PO (05:17)
[2021-12-19 05:20] VITALS: BP 186/103; PULSE 69
[2021-12-19 05:33] LABS: Absolute Neutrophil Count 9.3 X10^3/uL (2.0-7.7); Basophil# 0.04 X10^3/uL; Basophil% 0.3 % (0-1); Eosinophil# 0.38 X10^3/uL; Eosinophils% 3.2 % (0-5); Hematocrit 46.9 % (40-54); Hemoglobin 15.9 g/dL (13.0-16.5); Lymphocyte % 10.2 % (19-41); Mean Corp Hgb Conc 33.9 g/dL (32-36); Mean Corpuscular Hgb 31.2 pg (27.0-32.0); Mean Platelet Vol. 9.4 fl (6.2-12.0); Monocyte# 0.86 X10^3/uL; Monocyte% 7.3 % (0-10); NRBC Flagged by Analyzer 0 % (0-5); Neutrophil % 78.7 % (47-70); Platelet Count 243 K/mm3 (150-450); RBC Distribution Width CV 13.9 % (11.6-14.6); RBC Distribution Width SD 47.5 fl (35.1-43.9); White Blood Count 11.8 K/mm3 (4.4-11.0)
[2021-12-19] MEDS: Nystatin Powder 15gm Bottle 1 APPLIC TOPICAL ×2 (09:39→18:23)
[2021-12-19] MEDS: Potassium Chloride Oral Tablet 20 MEQ PO (09:40)
[2021-12-19 10:00] VITALS: PULSE 63; RESP 18; O2SAT 97
[2021-12-19 10:19] VITALS: BP 162/90; PULSE 73
--- NOTE | 2021-12-19 10:34 | PHA.CONS_ITS ---
TCU RX Drug Regimen Review Subjective: TCU Admission. 71 YOM presented to the ER with pain, swelling, burning in RLE. Admitted to hospital for cellulitis and wound. Patient declined debridement. Wound culture growing Serratia marcescens, Klebsiella oxytoca, Proteus hauseri and Staph aureus all sensitive to levofloxacin. Admitted to TCU with debility for strengthening and rehabilitation. Objective: Allergies apixaban [From Eliquis] Adverse Reaction (Intermediate, Verified 12/12/21 10:52) Wet the bed: found out later had UTI ibuprofen [From Motrin] Adverse Reaction (Verified 12/12/21 10:52) Nausea Current Medications Generic Name Dose Route Start Last Admin Trade Name Freq PRN Reason Stop Dose Admin Acetaminophen 1,000 mg 12/16/21 19:22 12/16/21 21:48 Acetaminophen 500 Mg Tablet PO 1,000 mg Q6H PRN PRN Administration Pain Score 1-3 Atenolol 50 mg 12/17/21 06:00 12/19/21 05:17 Atenolol 50 Mg Tablet PO 50 mg DAILY IKE Administration Bisacodyl 10 mg 12/16/21 19:22 Bisacodyl 5 Mg Tablet PO DAILY PRN Constipation Furosemide 40 mg 12/17/21 06:00 12/19/21 05:17 Furosemide 40 Mg Tablet PO 40 mg BIDLX IKE Administration Levofloxacin 500 mg 12/17/21 06:00 12/19/21 05:16 Levofloxacin 500 Mg Tablet PO 12/22/21 23:59 500 mg DAILY@0600 IKE Administration Lisinopril 20 mg 12/16/21 22:00 12/18/21 22:05 Lisinopril 20 Mg Tablet PO 20 mg QHS IKE Administration Nutritional Formula (Lactose Free) 120 ml 12/16/21 17:45 12/19/21 09:39 Ensure Enlive 120 Ml Liquid PO 120 ml TIDCM [facility] Administration Nystatin 1 applic 12/17/21 07:54 12/19/21 09:39 Nystatin Powder 15gm Bottle TOPICAL 1 applic BID [facility] Administration Protocol Potassium Chloride 20 meq 12/18/21 08:00 12/19/21 09:40 Potassium Chloride Oral Tablet 20 Meq PO 20 meq DAILYCM IKE Administration Rivaroxaban 20 mg 12/16/21 17:00 12/18/21 16:45 Rivaroxaban 20 Mg Tablet PO 20 mg DINNER IKE Administration Senna/Docusate Sodium 2 tablet 12/17/21 06:00 12/19/21 05:17 Senna/Docusate Sodium 1 Tablet PO Not Given BID IKE Sodium Chloride 10 - 40 ml 12/17/21 01:12 0.9% Saline Lock 10 Ml Syringe IV UD PRN SALINE FLUSH Tramadol HCl 50 mg 12/18/21 14:14 Tramadol 50 Mg Tablet PO Q6H PRN PRN Pain Score 4-10 Tuberculin PPD 0.1 ml 12/24/21 10:00 Tuberculin,Purif.Prot.Deriv. 50 Tu/Ml Vial ID 12/24/21 10:01 X1 ONE Problem List (Last Reviewed 12/16/21 @ 19:[address] 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) Skin ulcer of left great toe with fat layer exposed (Acute) Pain in right lower leg (Acute) Lymphedema (Acute) Vital Signs Temp Pulse Resp BP Pulse Ox O2 Del Method 98.0 F 73 16 162/90 H 96 Room Air 12/17/21 16:00 12/19/21 10:19 12/17/21 16:00 12/19/21 10:19 12/17/21 16:00 12/18/21 22:10 Oxygen Delivery Method Room Air Weight: 109.769 kg Body Mass Index (BMI) 39.0 Sodium 138 mmol/L (136-145) 12/18/21 04:34 Potassium 3.7 mmol/L (3.5-5.1) 12/18/21 04:34 Chloride 102 mmol/L (98-107) 12/18/21 04:34 Carbon Dioxide 30.0 mmol/L (21.0-32.0) 12/18/21 04:34 Anion Gap 6 (5-15) 12/18/21 04:34 BUN 26 mg/dL (7-18) H 12/18/21 04:34 Creatinine 1.18 mg/dL (0.70-1.30) 12/18/21 04:34 Est GFR (MDRD) Af Amer 78 mL/min (>60) 12/18/21 04:34 Est GFR (MDRD) Non-Af 65 mL/min (>60) 12/18/21 04:34 BUN/Creatinine Ratio 22.0 RATIO (10-20) H 12/18/21 04:34 Glucose 94 mg/dL (74-106) 12/18/21 04:34 Assessment/Plan: 1. Pain: acetaminophen 1000mg Q6H PRN pain (1-3), and tramadol 50mg PO Q6H PRN pain (4-10). Please continue to monitor for S/S of increased pain, renal function, PRN usage, and constipation. Resident has had 1 acetaminophen dose for pain level 10 in the foot. Tramadol never used. 2. Bowel: senna/docusate 2T PO BID and bisacodyl 10mg PO daily PRN constipation. Resident refused 2/5 doses of senna/docusate. Please consider changing to PRN constipation. Thanks. Please continue to monitor for constipation and PRN usage, no documented bowel movement, dulcolax never used.? 3. Cellulitis right lower extremity: levofloxacin 500mg PO daily thru 12/22/2021. Please continue to monitor for S/S of infection, diarrhea, renal function, and tendon pain.? 4. Atrial Fibrillation/CAD: atenolol 50mg PO daily, rivaroxaban 20mg PO dinner, and lisinopril 20mg PO QHS. Please continue to monitor BP (last 186/103), HR (last 69), S/S of bleeding, hemoglobin (last 15.9g/dL), renal function, sodium (last 138mmol/L), and potassium (3.7mmol/L).? 5. Lymphedema: furosemide 40mg PO BID. Please continue to monitor for S/S of edema, sodium (last 138mmol/L), and potassium (last 3.7mmol/L). Resident positive 870mL. 6. Hypokalemia: potassium chloride 20 meq PO DAILYCM. Please continue to monitor potassium level (3.7 mmol/L).? Assessment/Plan for indications treated with psychotropic medications: None Medical chart and medication regimen reviewed. The following medication irregularities or issues were identified: *1. Senna/docusate 2T PO BID. Resident refused 2/5 doses of senna/docusate. Please consider changing to PRN constipation. Thanks. Date of Note:: 12/19/21
--- NOTE | 2021-12-19 14:26 | WOUNDNOTE ---
JON Schwarz had changed patient's dressings. will try to reassess tomorrow.
--- NOTE | 2021-12-19 16:10 | CASEMGMT ---
Social Work Met with patient to complete initial assessment. Introduced self and role. Discussed code status and MOLST form. Pt confirmed full code. MOLST communication to , placed in chart. Requested pt have family bring in advanced directives. Pt denied, stating I'm not sure I want the hospital to have them. SW explored reservations and educated to reason for hospital to have paperwork. Pt still denied but stated son, Bebo, is HCPOA. [facility] and continued stay is not guaranteed. The goal is for pt to return home with son, Naeem, and two grandchildren that live there every other week. Pt lives on the main floor. Son works timekeeper. SW to continue to follow for DC planning. Danica Ching, ALYSSA VASQUEZW
[2021-12-19] MEDS: Bisacodyl 5 MG Tablet 10 MG PO (18:22)
[2021-12-19] MEDS: Senna/Docusate Sodium 1 Tablet 2 TABLET PO (18:23)
--- NOTE | 2021-12-19 19:21 | NURSING ---
PT SON ON FLOOR WITH CLOTH MASK ON. THIS NURSE ASKED PT IF HE WOULD PLEASE PUT A SURGICAL MASK ON THAT IS REQUIRED ON THIS FLOOR. SON [MARITZA] STATED NO ONE HAS SAID ANY THING TO ME BEFORE ABOUT WEARING ONE OF THOSE MASKS AND IT DOESNT STATE A SURGICAL MASK ON SIGN JUST MASK AND I HAVE BEEN COMING UP HERE FOR A FEW DAYS. THIS NURSE STATED TO SON THAT IT IS REQUIRED ON THIS FLOOR AND I NOTICED YOU DIDNT HAVE ONE ON. SON STATED YOU DIDNT CATCH ME AND CHUCK NOT WEARING ONE. THIS NURSE STATED TO SON THAT I WOULD BE MORE THEN HAPPY TO CALL MY PRESIDENT AND CHIEF EXECUTIVE OFFICER AND THEY COULD DISCUSS IT. SON WENT OVER AND GRAB SURGICAL MASK AND PUT IT ON. THIS NURSE STATED THANK YOU AND SON COMMENTED YA WHAT EVER! THIS NURSE NOTICED ON [facility] FOR PT ROOM THAT SON ENTERED AND TOOK MASK OFF. THIS NURSE WALKED BY ROOM AND SEEN WOMEN VISITOR IN ROOM ALSO AND THIS NURSE ASKED HER TO PUT MASK ON. WOMEN DID COMPLY AND SHUT CURTAIN TO ROOM. LOOKED ON [facility] AND SEEN THE WOMEN TAKE MASK OFF. RN AWARE AND DID HEAR CONVERSATION THAT THIS NURSE HAD WITH SON.
[2021-12-19] MEDS: Rivaroxaban 20 MG Tablet PO (20:06)
[2021-12-19] MEDS: Lisinopril 20 MG Tablet PO (20:07)
[2021-12-19 20:17] VITALS: BP 157/81; PULSE 83
[2021-12-20] MEDS: Nystatin Powder 15gm Bottle 1 APPLIC TOPICAL ×2 (05:27→16:50)
[2021-12-20] MEDS: levoFLOXacin 500 MG Tablet PO (05:27)
[2021-12-20] MEDS: Furosemide 40 MG Tablet PO ×2 (05:27→14:21)
[2021-12-20] MEDS: Atenolol 50 MG Tablet PO (05:27)
[2021-12-20 05:31] VITALS: BP 153/85; PULSE 88; RESP 16
[2021-12-20] MEDS: Potassium Chloride Oral Tablet 20 MEQ PO (08:27)
--- NOTE | 2021-12-20 11:04 | WOUNDNOTE ---
wound photo: left great toe
--- NOTE | 2021-12-20 11:05 | WOUNDNOTE ---
wound photo: right foot
--- NOTE | 2021-12-20 11:05 | WOUNDNOTE ---
wound photo: right lower leg
--- NOTE | 2021-12-20 11:06 | WOUNDNOTE ---
wound photo: right posterior lower leg
[2021-12-20 13:52] VITALS: BP 135/99; PULSE 76; RESP 21; TEMP 36.6; O2SAT 96
--- NOTE | 2021-12-20 14:17 | NURSING ---
Called patients son to update on staff member testing positive for covid; left message for a call back.
[2021-12-20] MEDS: Rivaroxaban 20 MG Tablet PO (16:47)
[2021-12-20] MEDS: Lisinopril 20 MG Tablet PO (19:50)
[2021-12-20 21:35] VITALS: PULSE 96; RESP 18; O2SAT 98
[2021-12-21] MEDS: Furosemide 40 MG Tablet PO ×2 (05:20→13:10)
[2021-12-21] MEDS: levoFLOXacin 500 MG Tablet PO (05:20)
[2021-12-21] MEDS: Nystatin Powder 15gm Bottle 1 APPLIC TOPICAL ×2 (05:21→17:05)
[2021-12-21] MEDS: Atenolol 50 MG Tablet PO (05:21)
[2021-12-21] MEDS: Potassium Chloride Oral Tablet 20 MEQ PO (07:31)
--- NOTE | 2021-12-21 09:06 | CASEMGMT ---
Social Work IDT met with patient and son via conference call for care plan meeting. Discussed patient's progress in PT/OT/ST/SN. Explained [employer] insurance with NRD 12/28 and continued stay is not guaranteed. The goal is for pt to return home with son with [address] Son does work second time worker. Pt has wounds with daily dressing changes. Nursing to begin education/teaching to pt and son on dressing changes to prepare for DC. SW to order continued therapy, nursing and DME as indicated. SW requested for son to bring in advanced directives if pt agrees. Pt agreed to think about it further and tell son to bring in paperwork. SW to continue to follow. Danica Ching, MAIL PROCESSING CLERK FOOD ASSEMBLER
--- NOTE | 2021-12-21 11:22 | CASEMGMT ---
Social Work BIMS () and PHQ-9 (05/26) completed for MDS assessment. Danica Ching MSW BILLBOARD INSTALLER
[2021-12-21 13:11] VITALS: BP 154/66; PULSE 69; RESP 18; O2SAT 99
[2021-12-21] MEDS: Acetaminophen 500 MG Tablet 1000 MG PO (14:08)
[2021-12-21 14:49] VITALS: TEMP 36.7
--- NOTE | 2021-12-21 15:17 | NURSING ---
Pt and family updated on positive covid employee.
--- NOTE | 2021-12-21 15:24 | CHAPLAIN ---
Type of Pastoral Visit ___ Initial Visit _x__ Follow-up Visit ___ On-call Visit ___ General Patient Visit ___ Spiritual Assessment ___ Family Conference ___ Bereavement ___ Rapid Response ___ Code Blue ___ Other (describe below) Pastoral Care Referral From _x__ Patient ___ Family ___ Nurse ___ Physician ___ Privacy Attorney ___ Jig Maker ___ Other (describe below) Sacrament/Intervention _x__ Active listening ___ Anointing ___ Sabianism ___ Bereavement ___ Communion ___ Estefany exploration ___ _x__ Life review _x__ Prayer ___ Reconciliation ___ Sacrament of Sick _x__ Supportive presence ___ Wedding ___ Other (describe below) Pastoral Comments first saw this patient last week in [facility]; pt is asked about his transition to [facility] and his progress; pt believes that has been some progress; pt and OT are in room finishing up when this visit began; OT tells this photo optics technician about the hallucinations that pt is experiencing; pt agrees with the statements about hallucinations and yet admits how he cannot discern what is real and what is not; pt talks about some of his past activities of hunting and his goal of living to see his grandchildren grown; pt welcomes time to talk and prayer
[2021-12-21] MEDS: Rivaroxaban 20 MG Tablet PO (19:37)
--- NOTE | 2021-12-21 19:46 | NURSING ---
Pt. client care representative notified of new covid positive patient on unit per policy via telephone, no concerns voiced at this time.
[2021-12-21] MEDS: Lisinopril 20 MG Tablet PO (20:15)
[2021-12-21 20:21] VITALS: BP 125/83; PULSE 64; RESP 16
[2021-12-22] MEDS: Atenolol 50 MG Tablet PO (05:22)
[2021-12-22] MEDS: levoFLOXacin 500 MG Tablet PO (05:22)
[2021-12-22] MEDS: Furosemide 40 MG Tablet PO ×2 (05:22→15:32)
[2021-12-22] MEDS: Nystatin Powder 15gm Bottle 1 APPLIC TOPICAL ×2 (05:22→17:28)
[2021-12-22] MEDS: Senna/Docusate Sodium 1 Tablet 2 TABLET PO (05:22)
[2021-12-22] MEDS: Potassium Chloride Oral Tablet 20 MEQ PO (07:53)
--- NOTE | 2021-12-22 13:33 | PT ---
Noticed pt did not have a lunch tray in his room. Pt stated he slept through lunch. Asked pt what he wanted to eat for lunch and ordered lunch for pt. Spoke with charrer about assisting pt with filling out his menus due to pt being unable to fill out his menus himself due to having difficulty with reading menus and difficulty with remembering to fill them out.
[2021-12-22 15:34] VITALS: BP 131/98; PULSE 64; RESP 18; TEMP 36.9; O2SAT 97
[2021-12-22] MEDS: Acetaminophen 500 MG Tablet 1000 MG PO (15:55)
[2021-12-22] MEDS: Rivaroxaban 20 MG Tablet PO (17:42)
[2021-12-22 20:00] VITALS: BP 143/89; PULSE 73; RESP 18; TEMP 36.6; O2SAT 95
[2021-12-22] MEDS: Lisinopril 20 MG Tablet PO (20:06)
[2021-12-23 05:06] VITALS: BP 153/87; PULSE 60; RESP 16; TEMP 36.6; O2SAT 96
[2021-12-23] MEDS: Nystatin Powder 15gm Bottle 1 APPLIC TOPICAL ×2 (05:11→20:51)
[2021-12-23] MEDS: Atenolol 50 MG Tablet PO (05:11)
[2021-12-23] MEDS: Furosemide 40 MG Tablet PO ×2 (05:11→12:32)
[2021-12-23] MEDS: Acetaminophen 500 MG Tablet 1000 MG PO ×2 (06:53→14:29)
[2021-12-23] MEDS: Potassium Chloride Oral Tablet 20 MEQ PO (07:44)
[2021-12-23 09:23] VITALS: PULSE 69; RESP 16; O2SAT 96
[2021-12-23 15:12] VITALS: BP 140/65; PULSE 79; RESP 20; TEMP 36.8; O2SAT 97
--- NOTE | 2021-12-23 16:42 | NURSING ---
[employer] Firer/Fireman Note: Interview for MDS section F completed on 12/19. Entered on this date.
[2021-12-23] MEDS: Rivaroxaban 20 MG Tablet PO (16:46)
[2021-12-23] MEDS: Lisinopril 20 MG Tablet PO (20:47)
[2021-12-24 05:00] VITALS: BP 140/82; PULSE 60
[2021-12-24] MEDS: Nystatin Powder 15gm Bottle 1 APPLIC TOPICAL ×2 (05:18→21:28)
[2021-12-24] MEDS: Furosemide 40 MG Tablet PO ×2 (05:20→15:40)
[2021-12-24] MEDS: Atenolol 50 MG Tablet PO (05:20)
[2021-12-24 08:17] LABS: Absolute Lymphocyte Count 1.57 X10^3/uL (0.83-4.51); Absolute Neutrophil Count 7.2 X10^3/uL (2.0-7.7); Basophil# 0.04 X10^3/uL; Basophil% 0.4 % (0-1); Eosinophil# 0.51 X10^3/uL; Hematocrit 48.1 % (40-54); Hemoglobin 16.1 g/dL (13.0-16.5); Lymphocyte # 1.57 X10^3/ul (0.83-4.51); Lymphocyte % 15.4 % (19-41); Mean Corp Hgb Conc 33.5 g/dL (32-36); Mean Corpuscular Hgb 30.6 pg (27.0-32.0); Mean Corpuscular Volume 91.4 fL (80-94); Mean Platelet Vol. 9.9 fl (6.2-12.0); Monocyte# 0.88 X10^3/uL; Monocyte% 8.6 % (0-10); NRBC Flagged by Analyzer 0 % (0-5); Neutrophil # 7.15 X10^3/uL (2.7-7.7); Neutrophil % 70.2 % (47-70); Platelet Count 249 K/mm3 (150-450); RBC Distribution Width SD 47.3 fl (35.1-43.9); Red Blood Count 5.26 M/mm3 (4.6-6.2); White Blood Count 10.2 K/mm3 (4.4-11.0)
[2021-12-24 08:39] LABS: Anion Gap 5 (5-15); BUN 26 mg/dL (7-18); BUN/Creat Ratio 22.6 RATIO (10-20); Calcium,Total 9.1 mg/dL (8.5-10.1); Chloride 105 mmol/L (98-107); Creatinine, Serum 1.15 mg/dL (0.70-1.30); EST Glomerular Filtration Rate 66 mL/min (>60); Est Glom Filt Rate - Afr Amer 80 mL/min (>60); Glucose 101 mg/dL (74-106); Sodium Level 138 mmol/L (136-145)
[2021-12-24] MEDS: Potassium Chloride Oral Tablet 20 MEQ PO (08:40)
[2021-12-24] MEDS: Acetaminophen 500 MG Tablet 1000 MG PO ×3 (08:44→22:36)
[2021-12-24] MEDS: Tuberculin,Purif.prot.deriv. 50 TU/ML Vial 0.1 ML ID (09:38)
[2021-12-24 14:53] VITALS: BP 115/88; PULSE 72; RESP 14; O2SAT 90
[2021-12-24] MEDS: Rivaroxaban 20 MG Tablet PO (17:52)
[2021-12-24] MEDS: Lisinopril 20 MG Tablet PO (21:28)
[2021-12-24 21:31] VITALS: BP 114/72; PULSE 65
--- NOTE | 2021-12-24 23:45 | NURSING ---
Wound care completed per order except LLE left MEAGHAN as wounds are closed. Pt tolerated dressing change fair. Questions why antibiotics alone will not heal wounds. Explained rationale behind hydration, nutrition, antibiotic therapy- when indicated, elevated BLE when resting, and follow-up with specialists. Pt verbalizes he is not pleased with specialists he has seen [facility]. Informed pt he may be referred to other specialists to assess his lower extremities and create a treatment plan. Pt verbalizes that he would like to talk to Dr. Zheng next week to discuss. Will report to oncoming nurse and leave a note for Dr. Zheng to address. Significant amount of active listening and emotional support provided while performing wound care.
[2021-12-25] MEDS: Nystatin Powder 15gm Bottle 1 APPLIC TOPICAL ×2 (05:09→20:08)
[2021-12-25] MEDS: Furosemide 40 MG Tablet PO ×2 (05:10→13:20)
[2021-12-25] MEDS: Atenolol 50 MG Tablet PO (05:10)
[2021-12-25 05:11] VITALS: BP 134/74; PULSE 63
[2021-12-25] MEDS: Potassium Chloride Oral Tablet 20 MEQ PO (08:32)
[2021-12-25 10:00] VITALS: PULSE 66; RESP 18; O2SAT 98
[2021-12-25] MEDS: Acetaminophen 500 MG Tablet 1000 MG PO (13:20)
[2021-12-25 13:22] VITALS: BP 121/82; PULSE 72; RESP 18; TEMP 36.8; O2SAT 97
[2021-12-25] MEDS: Rivaroxaban 20 MG Tablet PO (17:20)
[2021-12-25 20:00] VITALS: BP 110/68; PULSE 67
[2021-12-25] MEDS: Lisinopril 20 MG Tablet PO (20:09)
[2021-12-26] MEDS: Atenolol 50 MG Tablet PO (05:27)
[2021-12-26] MEDS: Furosemide 40 MG Tablet PO ×2 (05:27→14:39)
[2021-12-26] MEDS: Nystatin Powder 15gm Bottle 1 APPLIC TOPICAL ×2 (05:28→22:13)
[2021-12-26 05:29] VITALS: BP 143/86; PULSE 59
[2021-12-26] MEDS: Potassium Chloride Oral Tablet 20 MEQ PO (07:57)
--- NOTE | 2021-12-26 11:54 | WOUNDNOTE ---
wound photo: right lower leg
--- NOTE | 2021-12-26 11:54 | WOUNDNOTE ---
wound photo: right lower leg
--- NOTE | 2021-12-26 11:55 | WOUNDNOTE ---
wound photo: right foot
[2021-12-26] MEDS: Acetaminophen 500 MG Tablet 1000 MG PO (14:31)
[2021-12-26 15:06] VITALS: BP 151/92; PULSE 77; RESP 16; TEMP 36.9; O2SAT 95
--- NOTE | 2021-12-26 16:56 | NURSING ---
Updated resident and family on positive covid resident and employee.
[2021-12-26] MEDS: Rivaroxaban 20 MG Tablet PO (17:07)
[2021-12-26 22:10] VITALS: PULSE 76; RESP 18; O2SAT 97
[2021-12-26] MEDS: Lisinopril 20 MG Tablet PO (22:12)
--- NOTE | 2021-12-26 23:16 | NURSING ---
About 7:45pm staff walking past patient's room and noticed he was on the floor laying/leaning to left side. He was alert, oriented, denied any pain and denied hitting his head. Helped back to wheelchair by multiple staff members. Vitals stable, PERRLA, oriented x3. No injury noted, patient denies any pain. Strength equal to BLE, no new pain or joint issues noted. When questioned about what was happening prior to sliding out of his chair he responded he'd just dozed off and this happens at home. Reminded him to call before getting up, encouraged use of non-skid slippers at all times. Patient sitting up in wheelchair, wheels locked, call lala in reach, he denies any needs. 8:02pm- Notified patient's son of fall 8:07pm- Notified Dr. del rio of fall
[2021-12-27 05:52] VITALS: BP 145/92; PULSE 77
[2021-12-27] MEDS: Furosemide 40 MG Tablet PO ×2 (05:54→13:55)
[2021-12-27] MEDS: Atenolol 50 MG Tablet PO (05:54)
[2021-12-27] MEDS: Nystatin Powder 15gm Bottle 1 APPLIC TOPICAL ×2 (05:55→20:15)
[2021-12-27] MEDS: Potassium Chloride Oral Tablet 20 MEQ PO (08:33)
--- NOTE | 2021-12-27 09:53 | MDS.RN ---
Information for the mds was obtained from review of the clinical record, interview of resident, staff, and direct observation of resident's care.
[2021-12-27 10:49] VITALS: PULSE 54; RESP 16; O2SAT 96
[2021-12-27 13:54] VITALS: BP 125/51; PULSE 52; RESP 20; TEMP 2.4; TEMP 36.3; O2SAT 95
--- NOTE | 2021-12-27 15:32 | NURSING ---
son notified of positive covid staff member
[2021-12-27] MEDS: Acetaminophen 500 MG Tablet 1000 MG PO (16:23)
[2021-12-27] MEDS: Rivaroxaban 20 MG Tablet PO (18:16)
[2021-12-27] MEDS: Lisinopril 20 MG Tablet PO (20:15)
[2021-12-28 05:00] VITALS: BP 155/84; PULSE 88
[2021-12-28] MEDS: Nystatin Powder 15gm Bottle 1 APPLIC TOPICAL ×2 (05:20→19:47)
[2021-12-28] MEDS: Furosemide 40 MG Tablet PO ×2 (05:20→14:00)
[2021-12-28] MEDS: Atenolol 50 MG Tablet PO (05:20)
--- NOTE | 2021-12-28 06:52 | WOUNDNOTE ---
Orders for nursing to teach son dressing changes prior to discharge home. Son has not been present while this nurse has been in the room. the son had been doing the dressing changes at home though prior to admission.
[2021-12-28] MEDS: Potassium Chloride Oral Tablet 20 MEQ PO (08:27)
--- NOTE | 2021-12-28 10:16 | CASEMGMT ---
Addendum entered by Danica Ching 12/28/21 12:45: Pt prefers [facility]. Referral made via phone. Original Note: Social Work Nursing notified this worker that pt is requesting to DC home. SW met with pt. Provided supportive listening to pt's frustration with COVID, in-room quarantine requirements. Pt stated he slid out of his recliner chair and now pt is not able to sit in the recliner. SW educated to being able to sit in recliner if pt wishes; staff want to ensure pt is safe. Pt explained his past diagnosis of sleep apnea but did not like using cpap. SW educated to following medical treatment for all areas, ie. wounds, sleep, diet, etc., to manage and prevent medical conditions. Encouraged pt to continue in TCU for ongoing treatment and management. Pt denied and states I feel like a prisoner in this room and I want to go home. SW offered to schedule training with son for wound care. Pt denied stating son has helped before and will help again, but agreed for SW to contact to set DC date. SW contacted son, Bebo, and updated on above. Son agreed he is comfortable with dressing changes and can crop picker pt after work tomorrow. SW spoke with pt to update on DC 12/29 at 6pm. Educated to [facility] PT/OT/SN. Pt agreeable. SW provided printed list of [facility] providers including quality and resource use data and consistent with the patient?s preferred geographic region, medical needs, and insurance network were provided via [employer] Guide. No DME needs. Plan: DC home with son 12/29, [facility] PT/OT/SN ALYSSA CosmeW
[2021-12-28 14:37] VITALS: TEMP 36.6
--- NOTE | 2021-12-28 16:23 | NURSING ---
Family and pt made aware that a patient tested positive for covid19
[2021-12-28 16:37] VITALS: BP 156/96; PULSE 81; RESP 18; O2SAT 96
[2021-12-28] MEDS: Rivaroxaban 20 MG Tablet PO (17:46)
[2021-12-28 19:40] VITALS: PULSE 80; RESP 16; O2SAT 98
[2021-12-28] MEDS: Lisinopril 20 MG Tablet PO (19:52)
--- NOTE | 2021-12-28 20:10 | DS.PCM_ITS ---
Providers Date of Admission: 12/16/21 Primary Care Physician: Dr. Low Zheng MD Consultations 12/17/21 01:22 Consult: Onc/Wound/timing machine operator Routine Comment: Reason For Visit: CELLULITIS Diagnosis Discharge Diagnosis (1) Debility: Status: Acute Code(s): R53.81 - Other malaise (2) Cellulitis of right leg: Status: Resolved Code(s): L03.115 - Cellulitis of right lower limb (3) 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 layer exposed: Status: Inactive Code(s): L97.212 - 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 layer exposed (4) Skin ulcer of left great toe with fat layer exposed: Status: Inactive Code(s): L97.522 - Non-pressure chronic ulcer of other part of left foot with fat layer exposed (5) Pain in right lower leg: Status: Inactive Code(s): M79.661 - Pain in right lower leg (6) Lymphedema: Status: Inactive Code(s): I89.0 - Lymphedema, not elsewhere classified (7) Atrial fibrillation: Status: Acute Code(s): I48.91 - Unspecified atrial fibrillation (8) Hypertension: Status: Chronic Code(s): I10 - Essential (primary) hypertension (9) Coronary artery disease: Status: Acute Code(s): I25.10 - Atherosclerotic heart disease of [place] coronary artery without angina pectoris Plan 71 year old male with below past medical history hospitalized for right lower extremity cellulitis, right lower extremity wounds, declined debridement, admitted to TCU with debility, here for rehabilitation, strengthening, prior to discharge home alone. * Debility - PT/OT. * Pain - Tylenol 1000mg q6h prn pain (1-3), Oxycodone 5mg q4h prn pain (4-10). * Bowel - Senna/colace 2 tablets bid, Dulcolax 10mg daily prn. * Adult immunization - Administer pneumonia vaccine, covid19 vaccine, flu vaccine as appropriate. * DVT prophylaxis - Not necessary, on Xarelto. * Atrial Fibrillation - Atenolol 50mg daily, Xarelto 20mg daily. * Nutrition - Ensure Enlive 120ml po tidcm. * Lymphedema - Furosemide 40mg daily. * Cellulitis right lower extremity - Levaquin 500mg daily thru 12/22/2021. * Coronary Artery Disease - Atenolol 50mg daily, Lisinopril 20mg qhs, Xarelto 20mg daily. Medications at Discharge Home Medications atenolol 50 mg tablet 50 mg PO DAILY HTN 08/23/14 oxycodone 5 mg tablet 5 mg PO Q6H PRN pain 3 days #12 tabs 12/15/21 lisinopril 20 mg tablet 20 mg PO QHS blood pressure 12/16/21 acetaminophen 500 mg tablet 1,000 mg PO Q6H PRN PRN Pain Score 1-3 #0 tabs 12/28/21 furosemide 40 mg tablet 40 mg PO BIDLX water pill 30 days #60 tabs 12/28/21 rivaroxaban 20 mg tablet (Xarelto) 20 mg PO DINNER #0 tabs 12/28/21 Hospital Course Operations None Procedures None Summary of Care Provided Minutes Spent on Discharge: 35 Hospital Course: 71 year old male with below past medical history hospitalized for right lower extremity cellulitis, right lower extremity wounds, declined debridement, admitted to TCU with debility, here for rehabilitation, strengthening, prior to discharge home alone. Discharge home with son 12/29/2021, Home Health Care PT/OT/SN. Physical Exam Const alert General Appearance: cooperative HEENT normocephalic Eyes PERRL and EOMs intact bilaterally Neck supple, no JVD and no carotid bruits Resp normal respiratory effort, normal air movement and clear to auscultation bilaterally Cardio regular rate and regular rhythm GI normal to inspection, nondistended, normoactive bowel sounds, non-tender and non-distended Extremity normal capillary refill General Extremity: Negative for edema Skin no rashes or lesions noted General Skin Exam: no breakdown Psych affect normal Appearance: appropriate Weight / BMI Weight Weight: 110.223 kg Body Mass Index (BMI) 39.0 ABG / Lab / Microbiology Data Result Diagrams: 12/24/21 07:55 12/24/21 07:55 Microbiology: Microbiology 12/23/21 07:50 Nasal Secretion SARS-CoV-2 Antigen (Rapid) - Final 12/18/21 15:08 Urine, Clean Catch Urine Culture - Final Yeast, not Emilie albicans 12/18/21 15:36 Nasal Secretion SARS-CoV-2 Antigen (Rapid) - Final D/C Instructions Discharge Diet: No restrictions Discharge Activity: Return to Normal Activity, May Shower and Use Walker Weight Bearing Status: Weight bearing as tolerated Call your doctor if you observe: Fever of 101 or Higher, Inability to urinate, Inability to have a bowel movement, Shortness of breath, Dizziness, Fainting spells, Swelling in the ankles, Chest pain and Uncontrolled pain Additional Instructions: Discharge home with son 12/29/2021, Home Health Care PT/OT/SN. Meaningful Use Info Meaningful Use Diagnoses (Choose all that apply): None applicable Discharge Plan Admission Admit Date/Time: 12/16/21 17:00 Primary Reason for Your Visit: Debility. Attending Provider: Low Zheng Chi Primary Care Provider: Low Zheng Chi Instructions Additional Instructions / Restrictions: Discharge home with son 12/29/2021, Home Health Care PT/OT/SN. Discharge Orders/Prescriptions Prescriptions: New acetaminophen 500 mg Tablet 1,000 mg PO Q6H PRN PRN (Reason: Pain Score 1-3) Qty: 0 0RF Xarelto 20 mg Tablet 20 mg PO DINNER Qty: 0 0RF Continued atenolol 50 MG tablet 50 mg PO DAILY Label Comments: blood pressure/heart health oxycodone 5 mg Tablet 5 mg PO Q6H PRN (Reason: pain) 3 Days Qty: 12 0RF lisinopril 20 mg tablet 20 mg PO QHS furosemide 40 mg tablet 40 mg PO BIDLX 30 Days Qty: 60 0RF Discontinued acetaminophen 325 MG tablet 500 mg PO Q4H PRN PRN (Reason: Mild-Moderate Pain (1-5/10)) 0RF Xarelto 10 mg Tablet 20 mg PO DAILY sennosides-docusate sodium [Stool Softener-Stimulant Laxat] 8.6-50 mg Tablet 2 tab PO BID PRN PRN (Reason: Constipation) Qty: 7 0RF levofloxacin 500 mg tablet 500 mg PO DAILY@0600 Ensure Enlive 0.08 gram-1.5 kcal/mL liquid 120 ml PO TIDCM Referrals / Follow Up: Low Zheng Chi, MD [Primary Care Provider] - 12/29/21 11:20 am Disposition Disposition (needs filled in before D/C Order can be placed): Home Health Service
[2021-12-28] MEDS: Acetaminophen 500 MG Tablet 1000 MG PO (20:37)
[2021-12-29] MEDS: Nystatin Powder 15gm Bottle 1 APPLIC TOPICAL (04:43)
[2021-12-29] MEDS: Atenolol 50 MG Tablet PO (04:44)
[2021-12-29] MEDS: Furosemide 40 MG Tablet PO ×2 (04:44→14:43)
[2021-12-29 04:48] VITALS: BP 148/89; PULSE 63; RESP 16
[2021-12-29] MEDS: Potassium Chloride Oral Tablet 20 MEQ PO (08:51)
[2021-12-29 14:44] VITALS: BP 142/90; PULSE 68
--- NOTE | 2021-12-29 15:36 | CASEMGMT ---
Social Work BIMS () and PHQ-9 (05/26) completed for MDS assessment. Danica Ching MSW DRIVER'S EDUCATION INSTRUCTOR
[2021-12-29] MEDS: Acetaminophen 500 MG Tablet 1000 MG PO (15:51)
[2021-12-29 16:00] VITALS: PULSE 63; RESP 20; TEMP 37.1; O2SAT 96
--- NOTE | 2021-12-29 16:22 | NURSING ---
This nurse educated pt's son on dressing change to RLE. Son voiced understanding and questions answered.
== END 2021-12-29 16:30 | disposition home health service (06) | DRG 603 ==
PROVIDERS: Admitting Provider Family Medicine Geriatric Medicine; PCP Family Medicine Geriatric Medicine; Visit Provider Family Medicine Geriatric Medicine
DX: L03.115 Cellulitis of right lower limb (principal); L97.212 Non-pressure chronic ulcer of right calf with fat layer exposed; I48.91 Unspecified atrial fibrillation; L97.522 Non-pressure chronic ulcer of other part of left foot with fat layer exposed; I10 Essential (primary) hypertension; I89.0 Lymphedema, not elsewhere classified; I25.10 Atherosclerotic heart disease of native coronary artery without angina pectoris; G47.33 Obstructive sleep apnea (adult) (pediatric); Z87.891 Personal history of nicotine dependence; Z79.899 Other long term (current) drug therapy; Z79.01 Long term (current) use of anticoagulants; N40.0 Benign prostatic hyperplasia without lower urinary tract symptoms
CPT/HCPCS: 36415; 80048; 81001; 85025; 87086; 87088; 87426; 87811; 92507; 92523; 97110; 97116; 97161; 97165; 97530; 97535; 97802

== ENCOUNTER → 2022-01-12 | Outpatient (CLI) | payer MEDICARE, SELFPAY ==
[2022-01-12 17:06] LABS: Absolute Lymphocyte Count 0.86 X10^3/uL (0.83-4.51); Absolute Neutrophil Count 6.8 X10^3/uL (2.0-7.7); Basophil# 0.03 X10^3/uL; Basophil% 0.3 % (0-1); Eosinophil# 0.38 X10^3/uL; Eosinophils% 4.3 % (0-5); Hematocrit 42.3 % (40-54); Lymphocyte # 0.86 X10^3/ul (0.83-4.51); Lymphocyte % 9.8 % (19-41); Mean Corp Hgb Conc 33.1 g/dL (32-36); Mean Corpuscular Hgb 29.7 pg (27.0-32.0); Mean Corpuscular Volume 89.8 fL (80-94); Mean Platelet Vol. 9.7 fl (6.2-12.0); Monocyte# 0.72 X10^3/uL; Monocyte% 8.2 % (0-10); NRBC Flagged by Analyzer 0 % (0-5); Neutrophil # 6.75 X10^3/uL (2.7-7.7); Neutrophil % 76.9 % (47-70); Platelet Count 252 K/mm3 (150-450); RBC Distribution Width CV 13.9 % (11.6-14.6); RBC Distribution Width SD 45.4 fl (35.1-43.9); Red Blood Count 4.71 M/mm3 (4.6-6.2); White Blood Count 8.8 K/mm3 (4.4-11.0)
[2022-01-12 17:34] LABS: Vitamin D,25 Hydroxy 29.7 ng/mL
[2022-01-12 17:44] LABS: ALB/GLOB Ratio 0.6 RATIO (0.9-2.4); AST(SGOT) 17 U/L (15-37); Alanine Aminotransfer ALT/SGPT 29 U/L (16-61); Albumin, Serum 2.9 g/dL (3.2-5.0); Alkaline Phosphatase 89 U/L (45-117); Anion Gap 6 (5-15); BUN 15 mg/dL (7-18); Calcium,Total 8.8 mg/dL (8.5-10.1); Chloride 103 mmol/L (98-107); EST Glomerular Filtration Rate 78 mL/min (>60); Est Glom Filt Rate - Afr Amer 94 mL/min (>60); Globulin 4.5 g/dL (2.2-4.2); Glucose 102 mg/dL (74-106); Potassium 3.6 mmol/L (3.5-5.1); Protein, Total 7.4 g/dL (6.4-8.2); Sodium Level 138 mmol/L (136-145); Thyroid Stim Hormone (TSH) 1.72 uIU/mL (0.358-3.74)
== END | disposition home or self-care (01) ==
LOC: POLAB3 16:07
PROVIDERS: PCP Family Medicine Geriatric Medicine; Visit Provider Family Medicine Geriatric Medicine
DX: I10 Essential (primary) hypertension (principal); E55.9 Vitamin D deficiency, unspecified
CPT/HCPCS: 36415; 80053; 82306; 84443; 85025

== ENCOUNTER → 2022-02-10 | Outpatient (CLI) | payer MEDICARE, SELFPAY ==
[2022-02-10 12:37] LABS: Absolute Neutrophil Count 9.2 X10^3/uL (2.0-7.7); Basophil# 0.03 X10^3/uL; Basophil% 0.3 % (0-1); Eosinophil# 0.47 X10^3/uL; Eosinophils% 4.1 % (0-5); Hemoglobin 14.7 g/dL (13.0-16.5); Lymphocyte % 7.9 % (19-41); Mean Corpuscular Hgb 29.5 pg (27.0-32.0); Mean Corpuscular Volume 92.4 fL (80-94); Mean Platelet Vol. 9.8 fl (6.2-12.0); Monocyte# 0.78 X10^3/uL; Monocyte% 6.8 % (0-10); NRBC Flagged by Analyzer 0 % (0-5); Neutrophil # 9.16 X10^3/uL (2.7-7.7); Neutrophil % 80.4 % (47-70); Platelet Count 244 K/mm3 (150-450); RBC Distribution Width CV 15.3 % (11.6-14.6); RBC Distribution Width SD 51.4 fl (35.1-43.9); Red Blood Count 4.98 M/mm3 (4.6-6.2); White Blood Count 11.4 K/mm3 (4.4-11.0)
[2022-02-10 13:13] LABS: Anion Gap 5 (5-15); BUN 19 mg/dL (7-18); BUN/Creat Ratio 18.8 RATIO (10-20); Calcium,Total 9.5 mg/dL (8.5-10.1); Chloride 106 mmol/L (98-107); Creatinine, Serum 1.01 mg/dL (0.70-1.30); EST Glomerular Filtration Rate 77 mL/min (>60); Est Glom Filt Rate - Afr Amer 93 mL/min (>60); Glucose 96 mg/dL (74-106); Potassium 4.6 mmol/L (3.5-5.1); Sodium Level 140 mmol/L (136-145)
[2022-02-10 14:38] LABS: M R Staph aureus DNA By PCR Negative (Negative); Probe Check PASS; Specimen Processing Control PASS; Staph aureus DNA By PCR POSITIVE (Negative)
== END | disposition home or self-care (01) ==
PROVIDERS: PCP Family Medicine Geriatric Medicine; Visit Provider Family Medicine Geriatric Medicine
DX: T07.XXXA Unspecified multiple injuries, initial encounter (principal); R60.9 Edema, unspecified; L03.119 Cellulitis of unspecified part of limb
CPT/HCPCS: 36415; 80048; 85025; 87070; 87077; 87186; 87205; 87640

== ENCOUNTER → 2022-02-13 | Outpatient (CLI) | payer MEDICARE, SELFPAY ==
--- NOTE | 2022-02-13 11:42 | VDLE_ITS ---
Reason For Study: LEG PAIN RIGHT LEFT GSV is normal. CFV is compressible, spontaneous, phasic, CFV is compressible, spontaneous, phasic, competent, and demonstrates normal competent and demonstrates normal augmentation. augmentation. FV is compressible, spontaneous, phasic, competent and demonstrates normal augmentation. POP V is compressible, spontaneous, phasic, competent and demonstrates normal augmentation. T/P Trunk is compressible. PTV is compressible. RT PerV is compressible. Procedure This is a venous duplex using B-mode, color flow and spectral Doppler. Exam performed in department. The exam was diagnostic. The study was technically difficult. Unable to visualize mid and distal portions of calf vessels due to open wounds. A preliminary report was called and/or faxed to Dr. Zheng's office. VL/Venous Duplex US, Unilateral Interpretation Summary Deep veins of the right lower extremity are patent and compressible segmentally . There is no evidence of right lower extremity deep vein thrombosis. The right great sapheno us vein appears patent and compressible segmentally. Ordering Physician: Low Zheng Chi Referring Physician: Low Zheng Chi Performed By: Bruce Serrano RVT
--- NOTE | 2022-02-13 12:15 | RAD_ITS ---
STUDY: X-RAY - RIGHT TIBIA AND FIBULA REASON FOR EXAM: Male, 71 years old. PAIN IN RLE -- HAS VL FIRST, WILL CALL TECHNIQUE: 4 view(s) of the tibia and fibula were obtained. COMPARISON: Comparison is made with prior study 12/12/2021. FINDINGS: Normal visualized tibia. Normal visualized fibula. Plantar spur Diffuse soft tissue swelling. RAD/Tibia & Fibula 2 Views IMPRESSION: Diffuse soft tissue swelling. Plantar spur. Electronically Signed: Ramiro Norris MD at 13:12 EDT ,
== END | disposition home or self-care (01) ==
LOC: CVS 11:41
PROVIDERS: PCP Family Medicine Geriatric Medicine; Referring Provider Family Medicine Geriatric Medicine; Visit Provider Family Medicine Geriatric Medicine
DX: M79.604 Pain in right leg (principal)
CPT/HCPCS: 36415; 73590; 80048; 85025; 93971

== ENCOUNTER → 2022-02-13 | Outpatient (CLI) | payer MEDICARE, SELFPAY ==
[2022-02-13 13:11] LABS: Absolute Lymphocyte Count 1.12 X10^3/uL (0.83-4.51); Absolute Neutrophil Count 7.8 X10^3/uL (2.0-7.7); Basophil# 0.03 X10^3/uL; Basophil% 0.3 % (0-1); Eosinophil# 0.25 X10^3/uL; Eosinophils% 2.5 % (0-5); Hematocrit 47.2 % (40-54); Hemoglobin 15.8 g/dL (13.0-16.5); Lymphocyte # 1.12 X10^3/ul (0.83-4.51); Mean Corp Hgb Conc 33.5 g/dL (32-36); Mean Corpuscular Hgb 29.5 pg (27.0-32.0); Mean Corpuscular Volume 88.2 fL (80-94); Mean Platelet Vol. 10.2 fl (6.2-12.0); Monocyte# 0.98 X10^3/uL; Monocyte% 9.6 % (0-10); NRBC Flagged by Analyzer 0 % (0-5); Neutrophil # 7.77 X10^3/uL (2.7-7.7); Neutrophil % 76.2 % (47-70); Platelet Count 261 K/mm3 (150-450); RBC Distribution Width CV 15.2 % (11.6-14.6); Red Blood Count 5.35 M/mm3 (4.6-6.2); White Blood Count 10.2 K/mm3 (4.4-11.0)
[2022-02-13 13:32] LABS: Anion Gap 10 (5-15); BUN 23 mg/dL (7-18); Calcium,Total 9.2 mg/dL (8.5-10.1); Chloride 101 mmol/L (98-107); Creatinine, Serum 1.15 mg/dL (0.70-1.30); EST Glomerular Filtration Rate 66 mL/min (>60); Est Glom Filt Rate - Afr Amer 80 mL/min (>60); Glucose 87 mg/dL (74-106); Sodium Level 138 mmol/L (136-145)
== END | disposition home or self-care (01) ==
LOC: POLAB3 09:30
PROVIDERS: PCP Family Medicine Geriatric Medicine; Visit Provider Family Medicine Geriatric Medicine
DX: M79.604 Pain in right leg (principal)
CPT/HCPCS: 36415; 80048; 85025

== ENCOUNTER → 2022-02-15 | Outpatient (CLI) | payer MEDICARE, SELFPAY ==
--- NOTE | 2022-02-15 14:14 | MRI_ITS ---
STUDY: MRI LOWER EXTREMITY RIGHT TIBIA/FIBULA WITH AND WITHOUT CONTRAST REASON FOR EXAM: Male, 71 years old. R LEG PAIN TECHNIQUE: Standardized fat and water weighted pulse sequences were obtained in all 3 orthogonal planes, post contrast administration. IV 20 CC CLARISCAN was administered for the contrast portion of the examination. COMPARISON: X-ray 02/13/2022 FINDINGS: Normal tibia and fibula, without a periosteal, cortical or cancellous marrow abnormality. Normal anterior, lateral, and posterior calf compartments, with normal muscles, crural fascia and intermuscular septa. Diffuse skin thickening and edema in the subcutaneous fat possibly from cellulitis or passive congestion. No loculated fluid collection to suggest abscess. There is no solid, cystic or lipomatous mass lesion of the subcutis adipose space. There is no abnormal contrast enhancement. MRI/Lower Ext No Joint W/WO Cont IMPRESSION: Soft tissue swelling possibly from cellulitis or passive congestion but no abscess, myositis or osteomyelitis. Electronically Signed: Mark Maldonado MD at 16:57 EDT ,
== END | disposition home or self-care (01) ==
LOC: MRI 12:21
PROVIDERS: PCP Family Medicine Geriatric Medicine; Referring Provider Family Medicine Geriatric Medicine; Visit Provider Family Medicine Geriatric Medicine
DX: M79.604 Pain in right leg (principal)
CPT/HCPCS: 73720; A9575

== ENCOUNTER → 2022-05-09 | Outpatient (CLI) | payer MEDICARE, SELFPAY ==
[2022-05-09 17:04] LABS: Absolute Lymphocyte Count 0.93 X10^3/uL (0.83-4.51); Absolute Neutrophil Count 5.5 X10^3/uL (2.0-7.7); Basophil# 0.04 X10^3/uL; Basophil% 0.5 % (0-1); Eosinophil# 0.38 X10^3/uL; Eosinophils% 5.1 % (0-5); Hematocrit 45.3 % (40-54); Hemoglobin 15.4 g/dL (13.0-16.5); Lymphocyte # 0.93 X10^3/ul (0.83-4.51); Lymphocyte % 12.6 % (19-41); Mean Corpuscular Hgb 30.7 pg (27.0-32.0); Mean Corpuscular Volume 90.2 fL (80-94); Mean Platelet Vol. 10.2 fl (6.2-12.0); Monocyte% 6.8 % (0-10); NRBC Flagged by Analyzer 0 % (0-5); Neutrophil # 5.52 X10^3/uL (2.7-7.7); Neutrophil % 74.6 % (47-70); Platelet Count 202 K/mm3 (150-450); RBC Distribution Width CV 14.8 % (11.6-14.6); RBC Distribution Width SD 49.1 fl (35.1-43.9); Red Blood Count 5.02 M/mm3 (4.6-6.2); White Blood Count 7.4 K/mm3 (4.4-11.0)
[2022-05-09 17:43] LABS: ALB/GLOB Ratio 0.8 RATIO (0.9-2.4); AST(SGOT) 10 U/L (15-37); Alanine Aminotransfer ALT/SGPT 20 U/L (16-61); Albumin, Serum 3.1 g/dL (3.2-5.0); Alkaline Phosphatase 75 U/L (45-117); Anion Gap 9 (5-15); BUN 18 mg/dL (7-18); BUN/Creat Ratio 17.1 RATIO (10-20); Calcium,Total 8.6 mg/dL (8.5-10.1); Chloride 109 mmol/L (98-107); Creatinine, Serum 1.05 mg/dL (0.70-1.30); EST Glomerular Filtration Rate 74 mL/min (>60); Est Glom Filt Rate - Afr Amer 89 mL/min (>60); Globulin 4.1 g/dL (2.2-4.2); Glucose 128 mg/dL (74-106); Potassium 3.6 mmol/L (3.5-5.1); Protein, Total 7.2 g/dL (6.4-8.2); Sodium Level 140 mmol/L (136-145); Thyroid Stim Hormone (TSH) 1.91 uIU/mL (0.358-3.74)
== END | disposition home or self-care (01) ==
PROVIDERS: PCP Family Medicine Geriatric Medicine; Visit Provider Family Medicine Geriatric Medicine
DX: I89.0 Lymphedema, not elsewhere classified (principal); N39.0 Urinary tract infection, site not specified
CPT/HCPCS: 36415; 80053; 84443; 85025; 87086; 87088

== ENCOUNTER → 2022-06-14 | Outpatient (CLI) | payer MEDICARE, SELFPAY ==
--- NOTE | 2022-06-14 15:30 | RAD_ITS ---
STUDY: X-RAY - LUMBAR SPINE REASON FOR EXAM: Male, 71 years old. L LEG WEAKNESS TECHNIQUE: 5 view(s) of the lumbar spine were obtained including oblique views. COMPARISON: Comparison is made with prior study dated March 09. FINDINGS: Normal lumbar lordosis. There is no substantial scoliosis. There is a normal alignment of the vertebrae. There is multilevel endplate spondylosis of the lumbar vertebrae. There is multi-level degenerative disc disease with multi-level disc space narrowing. There is atherosclerotic calcification of the abdominal aorta without a demonstrated aneurysm. RAD/L/S Spine Min 4 Views IMPRESSION: Degenerative changes of the spine, as detailed above. Electronically Signed: Ramiro Norris MD at 9:12 EST ,
[2022-06-14 17:43] LABS: Absolute Lymphocyte Count 0.98 X10^3/uL (0.83-4.51); Absolute Neutrophil Count 6.5 X10^3/uL (2.0-7.7); Basophil# 0.04 X10^3/uL; Basophil% 0.5 % (0-1); Eosinophil# 0.43 X10^3/uL; Eosinophils% 4.9 % (0-5); Hematocrit 46.9 % (40-54); Hemoglobin 15.4 g/dL (13.0-16.5); Lymphocyte # 0.98 X10^3/ul (0.83-4.51); Lymphocyte % 11.3 % (19-41); Mean Corp Hgb Conc 32.8 g/dL (32-36); Mean Corpuscular Hgb 30.3 pg (27.0-32.0); Mean Corpuscular Volume 92.1 fL (80-94); Mean Platelet Vol. 10.8 fl (6.2-12.0); Monocyte# 0.69 X10^3/uL; Monocyte% 7.9 % (0-10); NRBC Flagged by Analyzer 0 % (0-5); Neutrophil # 6.53 X10^3/uL (2.7-7.7); Neutrophil % 74.9 % (47-70); Platelet Count 205 K/mm3 (150-450); RBC Distribution Width CV 14.5 % (11.6-14.6); RBC Distribution Width SD 49.1 fl (35.1-43.9); Red Blood Count 5.09 M/mm3 (4.6-6.2); White Blood Count 8.7 K/mm3 (4.4-11.0)
[2022-06-14 18:10] LABS: Anion Gap 8 (5-15); BUN 17 mg/dL (7-18); Calcium,Total 9.2 mg/dL (8.5-10.1); Chloride 107 mmol/L (98-107); Creatinine, Serum 1.06 mg/dL (0.70-1.30); EST Glomerular Filtration Rate 73 mL/min (>60); Est Glom Filt Rate - Afr Amer 88 mL/min (>60); Glucose 95 mg/dL (74-106); Sodium Level 141 mmol/L (136-145)
[2022-06-15 10:19] LABS: M R Staph aureus DNA By PCR Negative (Negative); Probe Check PASS; Specimen Processing Control PASS; Staph aureus DNA By PCR POSITIVE (Negative)
== END | disposition home or self-care (01) ==
PROVIDERS: PCP Family Medicine Geriatric Medicine; Referring Provider Family Medicine Geriatric Medicine; Visit Provider Family Medicine Geriatric Medicine
DX: L03.116 Cellulitis of left lower limb (principal); I70.0 Atherosclerosis of aorta; R29.898 Other symptoms and signs involving the musculoskeletal system; M47.896 Other spondylosis, lumbar region
CPT/HCPCS: 36415; 72110; 80048; 85025; 87070; 87075; 87077; 87186; 87205; 87206; 87640

== ENCOUNTER → 2022-06-22 | Outpatient (CLI) | payer MEDICARE, SELFPAY ==
[2022-06-22 17:58] LABS: Anion Gap 7 (5-15); BUN 23 mg/dL (7-18); BUN/Creat Ratio 20.7 RATIO (10-20); Calcium,Total 8.9 mg/dL (8.5-10.1); Chloride 106 mmol/L (98-107); Creatinine, Serum 1.11 mg/dL (0.70-1.30); EST Glomerular Filtration Rate 69 mL/min (>60); Est Glom Filt Rate - Afr Amer 84 mL/min (>60); Glucose 146 mg/dL (74-106); Potassium 3.7 mmol/L (3.5-5.1); Sodium Level 141 mmol/L (136-145)
== END | disposition home or self-care (01) ==
LOC: POLAB3 16:45
PROVIDERS: PCP Family Medicine Geriatric Medicine; Visit Provider Family Medicine Geriatric Medicine
DX: E87.6 Hypokalemia (principal)
CPT/HCPCS: 36415; 80048

== ENCOUNTER → 2022-07-19 | Outpatient (CLI) | payer MEDICARE, SELFPAY ==
[2022-07-19 16:57] LABS: Absolute Neutrophil Count 6.7 X10^3/uL (2.0-7.7); Basophil# 0.04 X10^3/uL; Basophil% 0.4 % (0-1); Eosinophil# 0.28 X10^3/uL; Eosinophils% 3.1 % (0-5); Hematocrit 47.6 % (40-54); Hemoglobin 16.1 g/dL (13.0-16.5); Lymphocyte % 14.4 % (19-41); Mean Corp Hgb Conc 33.8 g/dL (32-36); Mean Corpuscular Hgb 30.3 pg (27.0-32.0); Mean Corpuscular Volume 89.6 fL (80-94); Monocyte# 0.72 X10^3/uL; NRBC Flagged by Analyzer 0 % (0-5); Neutrophil # 6.67 X10^3/uL (2.7-7.7); Neutrophil % 73.7 % (47-70); Platelet Count 226 K/mm3 (150-450); RBC Distribution Width CV 13.9 % (11.6-14.6); RBC Distribution Width SD 45.8 fl (35.1-43.9); Red Blood Count 5.31 M/mm3 (4.6-6.2); White Blood Count 9.1 K/mm3 (4.4-11.0)
[2022-07-19 17:13] LABS: Vitamin D,25 Hydroxy 20.6 ng/mL
[2022-07-19 17:21] LABS: ALB/GLOB Ratio 0.8 RATIO (0.9-2.4); AST(SGOT) 23 U/L (15-37); Alanine Aminotransfer ALT/SGPT 29 U/L (16-61); Albumin, Serum 3.3 g/dL (3.2-5.0); Alkaline Phosphatase 98 U/L (45-117); Anion Gap 7 (5-15); BUN 14 mg/dL (7-18); BUN/Creat Ratio 12.4 RATIO (10-20); Calcium,Total 9.1 mg/dL (8.5-10.1); Chloride 106 mmol/L (98-107); Creatinine, Serum 1.13 mg/dL (0.70-1.30); EST Glomerular Filtration Rate 68 mL/min (>60); Est Glom Filt Rate - Afr Amer 82 mL/min (>60); Globulin 4.1 g/dL (2.2-4.2); Glucose 109 mg/dL (74-106); Potassium 3.8 mmol/L (3.5-5.1); Protein, Total 7.4 g/dL (6.4-8.2); Sodium Level 139 mmol/L (136-145); Thyroid Stim Hormone (TSH) 3.13 uIU/mL (0.358-3.74)
== END | disposition home or self-care (01) ==
LOC: POLAB3 15:10
PROVIDERS: PCP Family Medicine Geriatric Medicine; Visit Provider Family Medicine Geriatric Medicine
DX: E55.9 Vitamin D deficiency, unspecified (principal); I10 Essential (primary) hypertension
CPT/HCPCS: 36415; 80053; 82306; 84443; 85025

== ENCOUNTER 2023-01-18 06:40 | Inpatient (IN) | payer MEDICARE, SELFPAY ==
[2023-01-18] VITALS (7 sets, daily range): BP systolic 125–158; BP diastolic 77–104; PULSE 52–69; RESP 15–20; TEMP 36.7–37; O2SAT 96–98; BMI 39.1
--- NOTE | 2023-01-18 06:49 | CT_ITS ---
STUDY: CT BRAIN WITHOUT CONTRAST REASON FOR EXAM: Male, 72 years old. Head injury due to a fall. RADIATION DOSAGE (If Supplied By Facility): CTDIvol = ( 44.99 ) mGy, DLP = ( 812.98 ) mGycm TECHNIQUE: Transaxial CT imaging of the brain was performed without administration of intravenous contrast material. Individualized dose optimization techniques were used for this CT. COMPARISON: Comparison is made with prior study dated September 08, 2019. FINDINGS: Normal soft tissue structures. Normal calvarium. There is mild cerebral atrophy with widening of the extra-axial spaces and ventricular dilatation. There are areas of decreased attenuation within the white matter tracts of the supratentorial brain, consistent with microvascular disease changes. Normal basal ganglia and thalami. Normal brainstem. There is mild cerebellar atrophy. There is no intracranial hemorrhage. There are no findings of an acute ischemic infarction. Atherosclerotic calcification of the cavernous portions of the internal carotid arteries. There is evidence of a prior resection of the medial wall of the left maxillary sinus as well as the ethmoid sinuses. Residual partial opacification of the superior aspect of the left ethmoid sinus. Opacification of the left maxillary sinus. CT/Brain/Head without Contrast IMPRESSION: Chronic involutional changes of the brain. No acute abnormality is seen. Electronically Signed: Ramiro Norris MD at 8:50 EDT ,
--- NOTE | 2023-01-18 06:51 | CT_ITS ---
STUDY: CT CERVICAL SPINE WITHOUT CONTRAST REASON FOR EXAM: Male, 72 years old. Pain following a fall. RADIATION DOSAGE (If Supplied By Facility): CTDIvol = ( 31.01 ) mGy, DLP = ( 625.38 ) mGycm TECHNIQUE: High resolution transaxial imaging was performed without contrast material. Sagittal and coronal images were reconstructed. Individualized dose optimization techniques were used for this CT. COMPARISON: Comparison is made with prior study dated August 23, 2014. FINDINGS: Normal craniovertebral junction. There are degenerative changes of the anterior atlantoaxial articulation. Normal odontoid process. There is straightening of the normal cervical lordosis. The patient status post anterior fusion with a screw and plate fixation device and prosthetic disc placement at the C3-C4 and C4-C5 levels. C2-3: Decreased disc space at the C2-C3 level. Uncovertebral arthrosis. C3-4: Anterior fusion with disc placement. Uncovertebral arthrosis. Bilateral neural foraminal stenosis worse on the left side. C4-5: Status post anterior fusion of prosthetic disc. Uncovertebral arthrosis. Bilateral neural foraminal stenosis. C5-6: Marked degree of disc space narrowing. Uncovertebral arthrosis. Bilateral neural foraminal stenosis moderate degree. C6-7: Disc space narrowing. Uncovertebral arthrosis. Bilateral neural foraminal stenosis. C7-T1: Normal endplates. Normal disc height and morphology. Normal central canal and intervertebral neuroforamina. Normal visualized soft tissue structures. CT/Spine Cervical without Contras IMPRESSION: Multilevel degenerative changes, as described above. Electronically Signed: Ramiro Norris MD at 8:53 EDT ,
--- NOTE | 2023-01-18 06:52 | EKG12_ITS ---
Test Reason : SOB Blood Pressure : / mmHG Vent. Rate : 073 BPM Atrial Rate : 000 BPM P-R Int : 000 ms QRS Dur : 130 ms QT Int : 428 ms P-R-T Axes : 000 -51 122 degrees QTc Int : 471 ms Atrial fibrillation with premature ventricular or aberrantly conducted complexes Left axis deviation Left ventricular hypertrophy with QRS widening and repolarization abnormality ( R in aVL , [place] pr oduct ) Abnormal ECG Confirmed by KEO GLASS, LEONARD ([id number]), film editor LARRY VERGARA ([id number]) on 01/23/2023 11:20:22 AM Referred By: Confirmed By:ANITHA CROWLEY MD
--- NOTE | 2023-01-18 06:52 | ED.VIS.FALL ---
HPI <Dr. Eliezer Alfonso MD - Last Filed: 01/22/23 15:23> HPI - Fall History of Present Illness Chief Complaint: Fall Informant: patient Narrative Narrative: The patient presents after a fall at home. Patient states he was feeling fine. He is actually been feeling well recently. He was sitting on the edge of the bed. He started to slip. He cannot use his right arm well due to significant rotator cuff problems. Not due to prior stroke. When he started to slip, he could not use his right arm to support himself. He grabbed a table with his left arm but the table was on wheels and rolled out away from him. This caused him to fall forward onto the floor. He did hit his head. He did not lose consciousness. His primary area of pain is the right shoulder and this is different than his normal right shoulder pain. He states his head does not really hurt. But he also has pain between his right hip and his right knee. He did land on the side. He is on Xarelto still. He is not sure why he is on this but it sounds like likely atrial fibrillation. [facility] <Dr. Eliezer Alfonso MD - Last Filed: 01/22/23 15:23> [facility] Medical History (Updated 01/22/23 @ 09:[address] 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, nasal cavity and accessory sinuses BPH (benign prostatic hyperplasia) Cardiac murmur, unspecified Cellulitis of right lower limb Cervical disc disease CPAP (continuous positive airway pressure) dependence Deep venous thrombosis Dyspnea on minimal exertion Essential (primary) hypertension Former smoker FTT (failure to thrive) in adult GERD (gastroesophageal reflux disease) Hyperglycemia Hyperlipidemia Leg pain Lymphedema New onset atrial fibrillation (03/24/20) 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 Obesity ANDREE (obstructive sleep apnea) Pain in right lower leg Pain of left great toe Pain of left lower extremity due to injury Skin ulcer of left great toe with fat layer exposed Sleep apnea Toe ulcer Traumatic hematoma of left lower leg Venous insufficiency Home Medications atenolol 50 mg tablet 50 mg PO DAILY HTN 08/23/14 [History Last Taken 01/17/23] lisinopril 20 mg tablet 20 mg PO QHS blood pressure 12/16/21 [History Last Taken 01/17/23] rivaroxaban 20 mg tablet (Xarelto) 20 mg PO DINNER #0 tabs 12/28/21 [Rx Last Taken 01/17/23] acetaminophen 500 mg tablet 500 - 1,000 mg PO Q6H PRN PAIN 01/18/23 [History Last Taken 01/16/23] rosuvastatin 20 mg tablet 20 mg PO DAILY CHOLESTEROL 01/18/23 [History Last Taken 01/17/23] Allergy/AdvReac Type Severity Reaction Status Date / Time apixaban [From Eliquis] AdvReac Intermediate Wet the Verified 01/18/23 14:28 bed: found out later had UTI ibuprofen [From Motrin] AdvReac Nausea Verified 01/18/23 14:28 Family History Mother CAD (coronary artery disease) Hypertension History of cardiac radiofrequency ablation Sister Hypertension Other Arthritis Surgical History (Updated 01/18/23 @ 15:47 by Mary Caceres) H/O cervical spine surgery History of bursectomy History of carpal tunnel release History of carpal tunnel surgery History of coronary artery stent placement (11/29/10) History of coronary artery stent placement History of fusion of cervical spine History of herniorrhaphy History of removal of cyst History of transurethral resection of prostate Social History household members: none Smoking Status: Former smoker alcohol intake: current details: occasional substance use type: does not use additional social history: DOES NOT TAKE ASPIRIN DOES NOT TAKE IBUPROFEN ROS <Dr. Eliezer Alfonso MD - Last Filed: 01/22/23 15:23> ROS ED Constitutional Constitutional ED: Denies chills, fever(s) or sweats Eyes Eyes: Denies change in vision Cardiovascular Cardiovascular: Denies chest pain, palpitations or racing heartbeat Respiratory/Chest Respiratory/Chest: Denies cough or dyspnea Gastrointestinal Gastrointestinal: Denies abdominal pain, nausea or vomiting Musculoskeletal Musculoskeletal: Reports arthralgias and neck pain; Denies back pain Integumentary Denies Abrasions Neurologic Neurologic: Denies headache(s), paresthesias or weakness Hematologic/Lymphatic Hematologic/Lymphatic: Reports easy bleeding and easy bruising Allergic/Immunologic Allergic/Immunologic ED: Denies urticaria EXAM <Dr. Eliezer Alfonso MD - Last Filed: 01/22/23 15:23> Physical Exam Narrative Exam Narrative: Neuro: Patient is awake alert reasonable informant for past history. Relatively good informant for this morning's events. HEENT: There is some mild erythema likely from abrasion above the left eyebrow. But no tenderness or swelling. No sign of facial tenderness. Neck: I am not getting any focal tenderness. But he does state that he has some soreness in the area. Chest: Breathing is easy and unlabored. I am not getting any chest wall tenderness with compression AP or laterally. Saturations are normal at 97% on room air showing no hypoxia. Heart: Rate is a little bit slow at about 60. I do not definitively hear A-fib. Abdomen is obese but not tender. When I evaluate his spine he does seem to have some mild tenderness at the lower thoracic and upper lumbar area. It is hard to localize this to one spot but it is in that region. But he states it was not really hurting until I pressed on it. Extremities: Right upper extremity is sore around the proximal humerus. But it does not appear to be dislocated. I do not see bruising. It is held close to the body but evidently this is normal. There is no tenderness distally in that extremity. None in the left upper or lower extremity. Right lower extremity is bigger than the left. But he states that is chronic. He is not sure why. But its not new or different. He has chronic stasis changes to both lower extremities but they do not look acutely infected. I do not see deformity. But he has some discomfort between the right knee and the right hip area diffusely. I do not see definite shortening. Const Vital Signs: 01/18/23 06:41 01/18/23 07:36 Temperature 98.0 F Temperature Source Temporal Pulse Rate 52 L Respiratory Rate 15 Respiratory Effort Normal Blood Pressure 158/104 H Blood Pressure Mean 122 Pulse Ox 97 Oxygen Delivery Method Room Air <Dr. Rudy Hernandez MD - Last Filed: 01/18/23 10:51> Physical Exam Const Vital Signs: 01/18/23 06:41 01/18/23 07:36 Temperature 98.0 F Temperature Source Temporal Pulse Rate 52 L Respiratory Rate 15 Respiratory Effort Normal Blood Pressure 158/104 H Blood Pressure Mean 122 Pulse Ox 97 Oxygen Delivery Method Room Air MDM <Dr. Eliezer Alfonso MD - Last Filed: 01/22/23 15:23> [facility] Narrative Medical decision making narrative: Just wanted to try Tylenol for pain. I have done x-rays of the sore areas. I have added thoracic and lumbar spine because we found tenderness on exam. We will get CT of his neck due to discomfort. I am 6 CT in his head due to the fall signs of injury and being on Xarelto although he is awake alert and appropriate. I will get EKG to check his heart rate and rhythm. Although his fall was mechanical and not due to syncope by history. All the studies are pending at this time. Lab Data Labs: Laboratory Results - last 24 hr 01/18/23 07:59 WBC 11.7 H RBC 5.34 Hgb 16.3 Hct 49.3 MCV 92.3 MCH 30.5 MCHC 33.1 RDW Std Deviation 47.9 H RDW Coeff of Naz 14.5 Plt Count 217 MPV 10.5 Immature Gran % (Auto) 0.500 Neut % (Auto) 81.1 H Lymph % (Auto) 10.3 L Canadian % (Auto) 5.5 Eos % (Auto) 2.3 Baso % (Auto) 0.3 Absolute Neuts (auto) 9.5 H Absolute Lymphs (auto) 1.21 Nucleated RBC % 0 Sodium 140 Potassium 4.0 Chloride 110 H Carbon Dioxide 27.0 Anion Gap 3 L BUN 16 Creatinine 0.97 Estim Creat Clear Calc 61.21 Est GFR (MDRD) Af Amer 97 Est GFR (MDRD) Non-Af 81 BUN/Creatinine Ratio 16.5 Glucose 105 Calcium 8.9 Radiography Diagnostic Testing: Clinical Impression(s) from Imaging Studies Brain CT 01/18/23 06:49 IMPRESSION: Chronic involutional changes of the brain. No acute abnormality is seen. Electronically Signed: Ramiro Norris MD at 8:50 EDT , Cervical Spine CT 01/18/23 06:51 IMPRESSION: Multilevel degenerative changes, as described above. Electronically Signed: Ramiro Norris MD at 8:53 EDT , Femur X-Ray 01/18/23 08:25 IMPRESSION: Soft tissue swelling. Electronically Signed: Ramiro Norris MD at 8:54 EDT , Knee X-Ray 01/18/23 08:25 IMPRESSION: Degenerative arthrosis. Electronically Signed: Ramiro Norris MD at 9:07 EDT , Lumbar Spine X-Ray 01/18/23 08:25 IMPRESSION: Degenerative changes of the spine, as detailed above. Electronically Signed: Ramiro Norris MD at 8:55 EDT , Pelvis X-Ray 01/18/23 08:25 IMPRESSION: Degenerative changes. No fracture is seen. Electronically Signed: Ramiro Norris MD at 9:04 EDT , Shoulder X-Ray 01/18/23 08:25 IMPRESSION: Joint space narrowing. Decreased space between the humeral head and acromion suggestive of rotator cuff pathology. Electronically Signed: Ramiro Norris MD at 9:02 EDT , Thoracic Spine X-Ray 01/18/23 08:25 IMPRESSION: Multilevel spondylosis and disc space narrowing. Electronically Signed: Ramiro Norris MD at 9:16 EDT , Brain MRI 01/19/23 05:55 IMPRESSION: 1. 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 2. Moderately severe microvascular disease. Electronically Signed: Jacqueline Torres MD at 5:37 EDT , Upper Extremity MRI 01/19/23 08:09 IMPRESSION: 1. Limited study due to patient motion. 2. Complete supraspinatus and infraspinatus tendon tears. 3. Joint and bursal effusions. Electronically Signed: Sharita Higgins MD at 23:32 EDT , Echocardiogram 01/20/23 10:09 Interpretation Summary The estimated ejection fraction is 65 %. No evidence for diastolic dysfunction. Ordering Physician: Bari Carpio Performed By: Oscar Oro RCS Head/Neck CTA 01/20/23 11:20 IMPRESSION: 1. No intracranial great vessel stenosis. 2. Mild atherosclerotic calcifications of the right carotid bulb without significant stenosis. 3. Patent internal carotid arteries without significant stenosis. 4. Patent bilateral vertebral arteries without evidence of stenosis or dissection Electronically Signed: Leonardo Vieira MD at 15:00 EDT , ADDENDUM: 01/20/23 1508 IMPRESSION: 1. No intracranial great vessel stenosis. 2. Mild atherosclerotic calcifications of the right carotid bulb without significant stenosis. 3. Patent internal carotid arteries without significant stenosis. 4. Patent bilateral vertebral arteries without evidence of stenosis or dissection N.B. : The above Results were Read Back by eLonardo Vieira MD to Paulino Sheriff RN, and understanding confirmed on 01/20/2023 15:01:25 (ET). Electronically Signed: Leonardo Vieira MD at 15:00 EDT , ADDENDUM: 01/20/23 1510 IMPRESSION: 1. No intracranial great vessel stenosis. 2. Mild atherosclerotic calcifications of the right carotid bulb without significant stenosis. 3. Patent internal carotid arteries without significant stenosis. 4. Patent bilateral vertebral arteries without evidence of stenosis or dissection N.B. : The above Results were Read Back by Leonardo Vieira MD to Paulino Schmid RN, and understanding confirmed on 01/20/2023 15:03:45 (ET). Electronically Signed: Leonardo Vieira MD at 15:00 EDT , EKG Initial EKG: Comments: Interpretation the patient's EKG does show atrial fibrillation with overall rate controlled at [address] and T wave changes likely related to some LVH. QRS duration is a bit long at 130 ms. QTc is just within normal at about 471. <Dr. Rudy Hernandez MD - Last Filed: 01/18/23 10:51> MDM MDM Narrative Medical decision making narrative: Just wanted to try Tylenol for pain. I have done x-rays of the sore areas. I have added thoracic and lumbar spine because we found tenderness on exam. We will get CT of his neck due to discomfort. I am 6 CT in his head due to the fall signs of injury and being on Xarelto although he is awake alert and appropriate. I will get EKG to check his heart rate and rhythm. Although his fall was mechanical and not due to syncope by history. All the studies are pending at this time. 2 views of the femur were obtained independently reviewed and interpreted by me at 0848 as negative for any acute process. Single view x-ray of the pelvis was obtained and revealed no acute abnormality i.e. fracture. 2 view x-ray of the knee was obtained and revealed asymmetry of the joint with minimal arthritic changes. There is no evidence of fracture, subluxation or dislocation. Three-view x-ray of the LS-spine reveals minimal degenerative changes with no evidence of spondylolisthesis or spondylolithiasis. There is no calcification of the aorta. There is no fracture, subluxation dislocation noted. 2 view x-ray of the D dorsal spine revealed moderate degenerative changes with significant spurring. There is no evidence of fracture, subluxation or dislocation. All of these films were independent reviewed interpreted by me at 0848. Patient asked why his legs are swollen. Patient admits that he has not been active. He has venous stasis dermatitis right and left leg. Worse right leg. There is been asymmetry of the leg for 1 to 2 years according to son. Lab Data Attestation: I reviewed the patient's lab results. Lab results narrative: Count is slightly elevated. There is no Aurea. Basic metabolic panel is unremarkable. Labs: Laboratory Results - last 24 hr 01/18/23 07:59 WBC 11.7 H RBC 5.34 Hgb 16.3 Hct 49.3 MCV 92.3 MCH 30.5 MCHC 33.1 RDW Std Deviation 47.9 H RDW Coeff of Naz 14.5 Plt Count 217 MPV 10.5 Immature Gran % (Auto) 0.500 Neut % (Auto) 81.1 H Lymph % (Auto) 10.3 L [place] % (Auto) 5.5 Eos % (Auto) 2.3 Baso % (Auto) 0.3 Absolute Neuts (auto) 9.5 H Absolute Lymphs (auto) 1.21 Nucleated RBC % 0 Sodium 140 Potassium 4.0 Chloride 110 H Carbon Dioxide 27.0 Anion Gap 3 L BUN 16 Creatinine 0.97 Estim Creat Clear Calc 61.21 Est GFR (MDRD) Af Amer 97 Est GFR (MDRD) Non-Af 81 BUN/Creatinine Ratio 16.5 Glucose 105 Calcium 8.9 Radiography Chest X-Ray - ED: Read by ED Physician (Documented under the MDM portion of the medical record) Diagnostic Testing: Clinical Impression(s) from Imaging Studies Brain CT 01/18/23 06:49 IMPRESSION: Chronic involutional changes of the brain. No acute abnormality is seen. Electronically Signed: Ramiro Norris MD at 8:50 EDT , Cervical Spine CT 01/18/23 06:51 IMPRESSION: Multilevel degenerative changes, as described above. Electronically Signed: Ramiro Norris MD at 8:53 EDT , Femur X-Ray 01/18/23 08:25 IMPRESSION: Soft tissue swelling. Electronically Signed: Ramiro Norris MD at 8:54 EDT , Knee X-Ray 01/18/23 08:25 IMPRESSION: Degenerative arthrosis. Electronically Signed: Ramiro Norris MD at 9:07 EDT , Lumbar Spine X-Ray 01/18/23 08:25 IMPRESSION: Degenerative changes of the spine, as detailed above. Electronically Signed: Ramiro Norris MD at 8:55 EDT , Pelvis X-Ray 01/18/23 08:25 IMPRESSION: Degenerative changes. No fracture is seen. Electronically Signed: Ramiro Norris MD at 9:04 EDT , Shoulder X-Ray 01/18/23 08:25 IMPRESSION: Joint space narrowing. Decreased space between the humeral head and acromion suggestive of rotator cuff pathology. Electronically Signed: Ramiro Norris MD at 9:02 EDT , Thoracic Spine X-Ray 01/18/23 08:25 IMPRESSION: Multilevel spondylosis and disc space narrowing. Electronically Signed: Ramiro Norris MD at 9:16 EDT , Brain MRI 01/19/23 05:55 IMPRESSION: 1. 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 2. Moderately severe microvascular disease. Electronically Signed: Jacqueline Torres MD at 5:37 EDT , Upper Extremity MRI 01/19/23 08:09 IMPRESSION: 1. Limited study due to patient motion. 2. Complete supraspinatus and infraspinatus tendon tears. 3. Joint and bursal effusions. Electronically Signed: Sharita Higgins MD at 23:32 EDT Reading Location ID and State: [id number] / Tel , Service support , Echocardiogram 01/20/23 10:09 Interpretation Summary The estimated ejection fraction is 65 %. No evidence for diastolic dysfunction. Ordering Physician: Bari Carpio Performed By: Oscar Oro RCS Head/Neck CTA 01/20/23 11:20 IMPRESSION: 1. No intracranial great vessel stenosis. 2. Mild atherosclerotic calcifications of the right carotid bulb without significant stenosis. 3. Patent internal carotid arteries without significant stenosis. 4. Patent bilateral vertebral arteries without evidence of stenosis or dissection Electronically Signed: Leonardo Vieira MD at 15:00 EDT , ADDENDUM: 01/20/23 1508 IMPRESSION: 1. No intracranial great vessel stenosis. 2. Mild atherosclerotic calcifications of the right carotid bulb without significant stenosis. 3. Patent internal carotid arteries without significant stenosis. 4. Patent bilateral vertebral arteries without evidence of stenosis or dissection N.B. : The above Results were Read Back by Leonardo Vieira MD to Paulino Sheriff RN, and understanding confirmed on 01/20/2023 15:01:25 (ET). Electronically Signed: Leonardo Vieira MD at 15:00 EDT , ADDENDUM: 01/20/23 1510 IMPRESSION: 1. No intracranial great vessel stenosis. 2. Mild atherosclerotic calcifications of the right carotid bulb without significant stenosis. 3. Patent internal carotid arteries without significant stenosis. 4. Patent bilateral vertebral arteries without evidence of stenosis or dissection N.B. : The above Results were Read Back by Leonardo Vieira MD to Paulino Schmid RN, and understanding confirmed on 01/20/2023 15:03:45 (ET). Electronically Signed: Leonardo Vieira MD at 15:00 EDT , Of the head and neck was reviewed by me at 0828. There is no evidence of subdural, epidural, intraparenchymal contusion or traumatic subarachnoid hemorrhage on the head CT. The cervical spine reveals no acute fracture, subluxation or dislocation. Formal read by radiologist is pending. Treatment and Re-Evaluation Narrative: Patient was informed of his x-ray and CAT scan results. He was discharged home. Patient's son was concerned that he is unsafe at home. Had nurse with a ambulate patient. Patient is unable to ambulate. He almost fell. He is not anticoagulated. Since he is on anticoag and there is concern for fall he is at high risk for intracranial bleed. Will call hospitalist for observation status with consult to OT and PT and case management to help with disposition and possible placement for inpatient physical therapy. Discharge Plan Dx/Rx/DC Orders Clinical Impression: CHI (closed head injury), Medication induced coagulopathy, Fall at home, Debility, Atrial fibrillation, Cervical myofascial strain, Acute upper back pain, Low back pain, Chronic venous stasis dermatitis of both lower extremities, Lymphedema of both lower extremities, Deterioration in ability to walk Disposition Disposition: Acute Care Hospital [facility] Discharge Date/Time: 01/18/23 15:26
[2023-01-18] MEDS: Acetaminophen 500 MG Tablet 1000 MG PO (06:57)
[2023-01-18 08:11] LABS: Absolute Lymphocyte Count 1.21 X10^3/uL (0.83-4.51); Absolute Neutrophil Count 9.5 X10^3/uL (2.0-7.7); Basophil# 0.04 X10^3/uL; Basophil% 0.3 % (0-1); Eosinophil# 0.27 X10^3/uL; Eosinophils% 2.3 % (0-5); Hematocrit 49.3 % (40-54); Hemoglobin 16.3 g/dL (13.0-16.5); Lymphocyte # 1.21 X10^3/ul (0.83-4.51); Lymphocyte % 10.3 % (19-41); Mean Corp Hgb Conc 33.1 g/dL (32-36); Mean Corpuscular Hgb 30.5 pg (27.0-32.0); Mean Corpuscular Volume 92.3 fL (80-94); Mean Platelet Vol. 10.5 fl (6.2-12.0); Monocyte# 0.64 X10^3/uL; Monocyte% 5.5 % (0-10); NRBC Flagged by Analyzer 0 % (0-5); Neutrophil # 9.48 X10^3/uL (2.7-7.7); Neutrophil % 81.1 % (47-70); Platelet Count 217 K/mm3 (150-450); RBC Distribution Width CV 14.5 % (11.6-14.6); RBC Distribution Width SD 47.9 fl (35.1-43.9); Red Blood Count 5.34 M/mm3 (4.6-6.2); White Blood Count 11.7 K/mm3 (4.4-11.0)
[2023-01-18 08:21] LABS: Anion Gap 3 (5-15); BUN 16 mg/dL (7-18); BUN/Creat Ratio 16.5 RATIO (10-20); Calcium,Total 8.9 mg/dL (8.5-10.1); Chloride 110 mmol/L (98-107); Creatinine, Serum 0.97 mg/dL (0.70-1.30); EST Glomerular Filtration Rate 81 mL/min (>60); Est Glom Filt Rate - Afr Amer 97 mL/min (>60); Estimated Creatinine Clearance 61.21 ml/min; Glucose 105 mg/dL (74-106); Sodium Level 140 mmol/L (136-145)
--- NOTE | 2023-01-18 08:25 | RAD_ITS ---
STUDY: X-RAY - THORACIC SPINE REASON FOR EXAM: Male, 72 years old. Injury/Pain TECHNIQUE: 2 view(s) of the thoracic spine were obtained. COMPARISON: None. FINDINGS: Normal kyphosis of the thoracic spine. There is no substantial scoliosis. There is multilevel endplate spondylosis of the thoracic vertebrae. There is multilevel disc space narrowing of the thoracic spine. The soft tissue structures are unremarkable. RAD/Thoracic Spine 3 Views IMPRESSION: Multilevel spondylosis and disc space narrowing. Electronically Signed: Ramiro Norris MD at 9:16 EDT ,
--- NOTE | 2023-01-18 08:25 | RAD_ITS ---
STUDY: X-RAY - RIGHT SHOULDER REASON FOR EXAM: Male, 72 years old. Injury/Pain TECHNIQUE: 2 view(s) of the shoulder. COMPARISON: Comparison is made with prior examination dated April 13, 2021. FINDINGS: There is moderate degenerative arthrosis of the glenohumeral articulation. There is degenerative arthrosis of the acromioclavicular joint without inferior osseous spur formation. Normal acromion. Decreased distance between the humeral head and the acromion suggesting rotator cuff pathology. Normal humeral head and visualized proximal humerus. The soft tissue structures are unremarkable. Normal visualized pulmonary apex. RAD/Shoulder min 2 Views IMPRESSION: Joint space narrowing. Decreased space between the humeral head and acromion suggestive of rotator cuff pathology. Electronically Signed: Ramiro Norris MD at 9:02 EDT ,
--- NOTE | 2023-01-18 08:25 | RAD_ITS ---
STUDY: X-RAY - RIGHT KNEE REASON FOR EXAM: Male, 72 years old. Injury/Pain TECHNIQUE: 2 view(s) of the knee. COMPARISON: Comparison is made with prior study March 07, 2016. FINDINGS: Normal visualized distal femur. Normal visualized proximal tibia and fibula. Normal proximal tibiofibular articulation. There is mild degenerative arthrosis of the medial femorotibial compartment. Normal lateral femorotibial compartment. Normal patellofemoral articulation. Soft tissue swelling. RAD/Knee 1 or 2 Views IMPRESSION: Degenerative arthrosis. Electronically Signed: Ramiro Norris MD at 9:07 EDT ,
--- NOTE | 2023-01-18 08:25 | RAD_ITS ---
STUDY: X-RAY - PELVIS REASON FOR EXAM: Male, 72 years old. Injury/Pain TECHNIQUE: One view of the pelvis was obtained. COMPARISON: Comparison is made with prior study December 12, 2021. FINDINGS: There is a non-specific bowel gas pattern. Normal visualized soft tissue structures. Normal bilateral iliac wings, sacroiliac joints and visualized sacrum. Normal visualized bilateral superior and inferior pubic rami. Normal pubic symphysis. Normal ischial tuberosities. Normal visualized right femoral head. There is osteoarthritic spur formation of the right acetabular rim. There is mild articular joint space narrowing of the right hip. Normal visualized left femoral head. There is osteoarthritic spur formation of the left acetabular rim. There is mild articular joint space narrowing of the left hip. RAD/Pelvis 1 or 2 Views IMPRESSION: Degenerative changes. No fracture is seen. Electronically Signed: Ramiro Norris MD at 9:04 EDT ,
--- NOTE | 2023-01-18 08:25 | RAD_ITS ---
STUDY: X-RAY - RIGHT FEMUR REASON FOR STUDY: Male, 72 years old. Injury/Pain TECHNIQUE: 4 view(s) of the femur. COMPARISON: None. FINDINGS: Normal visualized femur. Soft tissue swelling. RAD/Femur Min 2 Views IMPRESSION: Soft tissue swelling. Electronically Signed: Ramiro Norris MD at 8:54 EDT ,
--- NOTE | 2023-01-18 08:25 | RAD_ITS ---
STUDY: X-RAY - LUMBAR SPINE REASON FOR EXAM: Male, 72 years old. Injury/Pain TECHNIQUE: 3 view(s) of the lumbar spine were obtained. COMPARISON: Comparison is made with prior study dated June 14, 2022. FINDINGS: There is an exaggerated lumbar lordosis. There is no substantial scoliosis. Minimal anterior listhesis of L4 on L5 most likely secondary to facet joint osteoarthritis. There is multilevel endplate spondylosis of the lumbar vertebrae. There is multi-level degenerative disc disease with multi-level disc space narrowing. There is atherosclerotic calcification of the abdominal aorta without a demonstrated aneurysm. RAD/Lumbar Spine 2 or 3 Views IMPRESSION: Degenerative changes of the spine, as detailed above. Electronically Signed: Ramiro Norris MD at 8:55 EDT ,
--- NOTE | 2023-01-18 10:55 | ED.RN ---
PT AMBULATED WITH TWO RNS AND WHEELED WALKER. PT UNABLE TO USE RIGHT ARM AT ALL; IT HANGS LIMPLY AT HIS SIDE. PT SHUFFLES 3-4 FT WITH TWO PERSON ASSIST AND WALKER THEN HIS LEG LUCA AND PT BEGINS TO FALL. 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 DR. MATHIAS NOTIFIED.
--- NOTE | 2023-01-18 10:59 | PN.HOSP_ITS ---
Objective Data Objective Data Vital Signs: Vital Signs Temp Pulse Resp BP Pulse Ox O2 Del Method 98.0 F 52 L 15 158/104 H 97 Room Air 01/18/23 06:41 01/18/23 06:41 01/18/23 06:41 01/18/23 06:41 01/18/23 06:41 01/18/23 06:41 Oxygen Delivery Method Room Air Weight: 110 kg Body Mass Index (BMI) 39.1 Lab / Micro Data 01/18/23 07:59 01/18/23 07:59 Labs: Laboratory Results - last 24 hr 01/18/23 07:59: WBC 11.7 H, RBC 5.34, Hgb 16.3, Hct 49.3, MCV 92.3, MCH 30.5, MCHC 33.1, RDW Std Deviation 47.9 H, RDW Coeff of Naz 14.5, Plt Count 217, MPV 10.5, Immature Gran % (Auto) 0.500, Neut % (Auto) 81.1 H, Lymph % (Auto) 10.3 L, [place] % (Auto) 5.5, Eos % (Auto) 2.3, Baso % (Auto) 0.3, Absolute Neuts (auto) 9.5 H, Absolute Lymphs (auto) 1.21, Nucleated RBC % 0, Sodium 140, Potassium 4.0, Chloride 110 H, Carbon Dioxide 27.0, Anion Gap 3 L, BUN 16, Creatinine 0.97, Estim Creat Clear Calc 61.21, Est GFR (MDRD) Af Amer 97, Est GFR (MDRD) Non-Af 81, BUN/Creatinine Ratio 16.5, Glucose 105, Calcium 8.9 Radiography Diagnostic Testing: Radiology Impression Brain CT 01/18/23 06:49 IMPRESSION: Chronic involutional changes of the brain. No acute abnormality is seen. Electronically Signed: Ramiro Norris MD at 8:50 EDT , Cervical Spine CT 01/18/23 06:51 IMPRESSION: Multilevel degenerative changes, as described above. Electronically Signed: Ramiro Norris MD at 8:53 EDT , Femur X-Ray 01/18/23 08:25 IMPRESSION: Soft tissue swelling. Electronically Signed: Ramiro Norris MD at 8:54 EDT Reading Location ID and State: [facility] / [place] , Service support , Knee X-Ray 01/18/23 08:25 IMPRESSION: Degenerative arthrosis. Electronically Signed: Ramiro Norris MD at 9:07 EDT Reading Location ID and State: [facility] / [place] , Service support , Lumbar Spine X-Ray 01/18/23 08:25 IMPRESSION: Degenerative changes of the spine, as detailed above. Electronically Signed: Ramiro Norris MD at 8:55 EDT Reading Location ID and State: [facility] / [place] , Service support , Pelvis X-Ray 01/18/23 08:25 IMPRESSION: Degenerative changes. No fracture is seen. Electronically Signed: Ramiro Norris MD at 9:04 EDT Reading Location ID and State: [facility] / [place] , Service support , Shoulder X-Ray 01/18/23 08:25 IMPRESSION: Joint space narrowing. Decreased space between the humeral head and acromion suggestive of rotator cuff pathology. Electronically Signed: Ramiro Norris MD at 9:02 EDT , Thoracic Spine X-Ray 01/18/23 08:25 IMPRESSION: Multilevel spondylosis and disc space narrowing. Electronically Signed: Ramiro Norris MD at 9:16 EDT ,
--- NOTE | 2023-01-18 12:03 | PCM.HP.STD ---
HPI - General General Date of Admission: 01/18/23 Date of Service: 01/18/23 Chief Complaint: Multiple falls HPI Narrative TURNER YAN, is a 72 M with past medical history is again for hypertension, chronic A-fib on systemic anticoagulation with rivaroxaban who was brought to the emergency department after having experienced multiple falls on the morning of her presentation. Patient denied any focal weakness nor deficit. Denied hitting the head. Was seen in the emergency department underwent extensive work-up including skeletal survey which did not demonstrate any any fracture. Head CT was unremarkable. An assessment of adult failure to thrive made admitted to a monitored bed for further management [facility] Medical History (Updated 01/18/23 @ 12:[address] 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 Obesity ANDREE (obstructive sleep apnea) Pain in right lower leg Pain of left great toe Pain of left lower extremity due to injury Skin ulcer of left great toe with fat layer exposed Toe ulcer Traumatic hematoma of left lower leg Venous insufficiency Home Medications atenolol 50 mg tablet 50 mg PO DAILY HTN 08/23/14 [History Last Taken 01/17/23] lisinopril 20 mg tablet 20 mg PO QHS blood pressure 12/16/21 [History Last Taken 01/17/23] rivaroxaban 20 mg tablet (Xarelto) 20 mg PO DINNER #0 tabs 12/28/21 [Rx Last Taken 01/17/23] acetaminophen 500 mg tablet 500 - 1,000 mg PO Q6H PRN PAIN 01/18/23 [History Last Taken 01/16/23] rosuvastatin 20 mg tablet 20 mg PO DAILY CHOLESTEROL 01/18/23 [History Last Taken 01/17/23] Allergy/AdvReac Type Severity Reaction Status Date / Time apixaban [From Eliquis] AdvReac Intermediate Wet the Verified 12/12/21 10:52 bed: found out later had UTI ibuprofen [From Motrin] AdvReac Nausea Verified 12/12/21 10:52 Family History Mother CAD (coronary artery disease) Hypertension History of cardiac radiofrequency ablation Sister Hypertension Other Arthritis Surgical History H/O cervical spine surgery History of bursectomy History of carpal tunnel release History of carpal tunnel surgery History of coronary artery stent placement (11/29/10) History of fusion of cervical spine History of herniorrhaphy History of removal of cyst History of transurethral resection of prostate Social History household members: none Smoking Status: Former smoker alcohol intake: current details: occasional substance use type: does not use additional social history: DOES NOT TAKE ASPIRIN DOES NOT TAKE IBUPROFEN ROS ROS Narrative GENERAL: denies fever, chills, night sweats, weight loss, anorexia HEENT: denies headache, sinus congestion, or drainage, dysphagia RESPIRATORY: denies cough, sputum production, shortness of breath, CARDIAC: denies chest pain, palpitations, orthopnea, PND GASTROINTESTINAL: denies abdominal pain, nausea, vomiting, melena, GENITOURINARY: denies dysuria, urgency, frequency, heamaturia EXTREMITY: denies swelling MUSCULOSKELETAL: denies current joint pain or tenderness NEUROLOGIC: denies focal numbness, weakness, tingling HEMATOLOGIC: denies easy bruising and/or hemorrhage INTEGUMENT: denies rashes PSYCHIATRIC: denies suicidal or homicidal ideation Vital Signs Vital Signs Vital Signs: 01/18/23 06:41 01/18/23 07:36 01/18/23 11:46 Temperature 98.0 F 98.3 F Temperature Source Temporal Oral Pulse Rate 52 L Respiratory Rate 15 18 Respiratory Effort Normal Blood Pressure 158/104 H 154/94 H Blood Pressure Mean 122 114 Pulse Ox 97 Oxygen Delivery Method Room Air Room Air Weight Weight: 110 kg Body Mass Index (BMI) 39.1 Physical Exam Narrative GENERAL: cooperative HEENT: Atraumatic; normocephalic EYES; Anicteric, Normal Conjunctiva NECK; supple, normal thyroid, RESPIRATORY: Diminished to auscultation CARDIOVASCULAR: Regular S1 S2, GI: soft, normoactive bowel sounds, : No Renal angle tenderness; EXTREMITIES: No edema, no clubbing, MUSCULOSKELETAL: no muscle wasting NEURO: Awake; no lateralizing signs. SKIN: No Rash PSYCH; Flat affect Results Lab / Micro Data 01/18/23 07:59 01/18/23 07:59 Labs: Laboratory Results - last 24 hr 01/18/23 07:59: WBC 11.7 H, RBC 5.34, Hgb 16.3, Hct 49.3, MCV 92.3, MCH 30.5, MCHC 33.1, RDW Std Deviation 47.9 H, RDW Coeff of Naz 14.5, Plt Count 217, MPV 10.5, Immature Gran % (Auto) 0.500, Neut % (Auto) 81.1 H, Lymph % (Auto) 10.3 L, [place] % (Auto) 5.5, Eos % (Auto) 2.3, Baso % (Auto) 0.3, Absolute Neuts (auto) 9.5 H, Absolute Lymphs (auto) 1.21, Nucleated RBC % 0, Sodium 140, Potassium 4.0, Chloride 110 H, Carbon Dioxide 27.0, Anion Gap 3 L, BUN 16, Creatinine 0.97, Estim Creat Clear Calc 61.21, Est GFR (MDRD) Af Amer 97, Est GFR (MDRD) Non-Af 81, BUN/Creatinine Ratio 16.5, Glucose 105, Calcium 8.[address] 01/18/23 06:49 IMPRESSION: Chronic involutional changes of the brain. No acute abnormality is seen. Electronically Signed: Ramiro Norris MD at 8:50 EDT , Cervical Spine CT 01/18/23 06:51 IMPRESSION: Multilevel degenerative changes, as described above. Electronically Signed: Ramiro Norris MD at 8:53 EDT , Femur X-Ray 01/18/23 08:25 IMPRESSION: Soft tissue swelling. Electronically Signed: Ramiro Norris MD at 8:54 EDT , Knee X-Ray 01/18/23 08:25 IMPRESSION: Degenerative arthrosis. Electronically Signed: Ramiro Norris MD at 9:07 EDT , Lumbar Spine X-Ray 01/18/23 08:25 IMPRESSION: Degenerative changes of the spine, as detailed above. Electronically Signed: Ramiro Norris MD at 8:55 EDT Reading Location ID and State: [facility] / [place] , Service support , Pelvis X-Ray 01/18/23 08:25 IMPRESSION: Degenerative changes. No fracture is seen. Electronically Signed: Ramiro Norris MD at 9:04 EDT , Shoulder X-Ray 01/18/23 08:25 IMPRESSION: Joint space narrowing. Decreased space between the humeral head and acromion suggestive of rotator cuff pathology. Electronically Signed: Ramiro Norris MD at 9:02 EDT , Thoracic Spine X-Ray 01/18/23 08:25 IMPRESSION: Multilevel spondylosis and disc space narrowing. Electronically Signed: Ramiro Norris MD at 9:16 EDT , Assessment & Plan Assessment/Plan (1) FTT (failure to thrive) in adult: PLAN: Plan Patient is a 72-year-old gentleman admitted with multiple falls 1. Physical deconditioning - Requested for PT OT eval and long term care social worker to assist with discharge planning 2. Chronic A-fib ? Rate controlled on systemic anticoagulation with Xarelto continue 3. Class II obesity with BMI of 39.2 ? Complicating care, weight loss advised 4. Hypertension - Blood pressure controlled, home medications continued with dose adjustment as needed 5. Dyslipidemia ? Patient is on rosuvastatin did contain 6. DVT prophylaxis ? Patient already on systemic anticoagulation with Xarelto Time spent in the patient's overall evaluation,decision-making process, review of diagnostic data, adjustment of management, discussion with other providers, nursing nursing and ancillary staff involved in patient's care documentation,55 Minutes Advance planning; did discuss with the patient and family regarding advanced directives as well as CODE STATUS. Did explain the various scenarios involved ( FULL CODE, DNR CCA, DNR CCA with no intubation, and DNR CC and what each meant) patient elected to remain full code with CPR and intubation if needed. Order was placed. Time spent on discussion 18 minutes. Charges/Coding Visit Charges Inpatient E&M: 54322 Init Hosp L2 Procedures Hospitalists Procedures: 87268 Advncd Care Plan 30 Min
--- NOTE | 2023-01-18 14:04 | NURSING ---
310 OBS KITTOE UNAMBULATE SAFELY, FALL, CLOSED HEAD INJURY, BOBBIN PAINTER ANTICOAGULANT USE
[2023-01-18] MEDS: Morphine 4 MG/ML Syringe IV (15:23)
--- NOTE | 2023-01-18 16:31 | NURSING ---
RT SIDE FLACCID, UPPER AND LOWER EXTREMETIES. PT SAID THIS HAS BEEN GOING ON FOR ABOUT A WEEK, OR MAYBE A COUPLE DAYS. DR TIWARI NOTIFIED, MULTIPLE TESTS RAN DOWNSTAIRS, DOES NOT SUSPECT CVA, WILL ORDER MRI FOR AM.
[2023-01-18] MEDS: Miconazole Nitrate 43 GM Bottle 1 APPLIC TOPICAL (20:22)
[2023-01-18] MEDS: Menthol/Lanolin/Calamine/Znox 113 GM Tube 1 APPLIC TOPICAL (20:22)
[2023-01-19 02:30] VITALS: BP 154/75; PULSE 64; RESP 16; TEMP 36.6; O2SAT 96
[2023-01-19] MEDS: Acetaminophen 325 MG Tablet 650 MG PO ×2 (02:46→09:29)
--- NOTE | 2023-01-19 05:55 | MRI_ITS ---
STUDY: MRI BRAIN WITH AND WITHOUT CONTRAST REASON FOR EXAM: Male, 72 years old patient with right-sided weakness after fall. Patient is unable to move right arm. TECHNIQUE: Standardized multiplanar fat and water weighted pulse sequences were obtained. IV contrast was administered for the contrast portion of the examination. COMPARISON: CT of the head dated July 09, 2019. FINDINGS: There is mild cerebral atrophy with widening of the extra-axial spaces and ventricular dilatation. There are multiple white matter hyperintensities, distributed throughout the deep white matter tracts of the cerebral hemispheres, consistent with moderate chronic white matter ischemic changes. There is confluent periventricular hyperintensity cloaking the lateral ventricles, consistent with periventricular leukoaraiosis. There is restricted diffusion in the left em radiata consistent with acute infarct. Normal T2* images of the brain without demonstrated susceptibility artifact. There is no demonstrated hemosiderin stain. Normal bilateral basal ganglia. Normal thalami. There is no extra-axial fluid accumulation. Normal flow voids within the major intracranial circulation suggesting patency by spin echo criteria. Normal venous enhancement. There is no enhancing intra-axial or extra-axial abnormality. Normal sella turcica, pituitary gland, infundibular stalk, optic chiasm and hypothalamus. Normal tectal plate and pineal gland. Normal midbrain, abrahan and medulla. Normal cerebellum. Normal basal cisterns. Normal bilateral temporal bones. Normal bilateral internal auditory canals. There are bilateral ocular lens implants with otherwise normal intraorbital contents. There appear to be post-operative changes of the left ostiomeatal complex. There is left maxillary sinus mucosal thickening. Normal calvarium and skull base. Normal visualized soft tissue structures. Normal visualized upper cervical spine. MRI/Brain W/WO Contrast IMPRESSION: 1. 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 2. Moderately severe microvascular disease. Electronically Signed: Jacqueline Torres MD at 5:37 EDT ,
[2023-01-19] MEDS: Menthol/Lanolin/Calamine/Znox 113 GM Tube 1 APPLIC TOPICAL ×3 (06:14→21:26)
[2023-01-19 07:07] LABS: Absolute Lymphocyte Count 1.35 X10^3/uL (0.83-4.51); Absolute Neutrophil Count 6.3 X10^3/uL (2.0-7.7); Basophil# 0.02 X10^3/uL; Basophil% 0.2 % (0-1); Eosinophils% 3.5 % (0-5); Hemoglobin 15.5 g/dL (13.0-16.5); Lymphocyte # 1.35 X10^3/ul (0.83-4.51); Lymphocyte % 15.6 % (19-41); Mean Corp Hgb Conc 34.4 g/dL (32-36); Mean Corpuscular Hgb 31.4 pg (27.0-32.0); Mean Corpuscular Volume 91.3 fL (80-94); Mean Platelet Vol. 9.8 fl (6.2-12.0); Monocyte# 0.64 X10^3/uL; Monocyte% 7.4 % (0-10); NRBC Flagged by Analyzer 0 % (0-5); Neutrophil # 6.31 X10^3/uL (2.7-7.7); Neutrophil % 73.1 % (47-70); Platelet Count 200 K/mm3 (150-450); RBC Distribution Width CV 14.6 % (11.6-14.6); RBC Distribution Width SD 48.8 fl (35.1-43.9); Red Blood Count 4.93 M/mm3 (4.6-6.2); White Blood Count 8.6 K/mm3 (4.4-11.0)
[2023-01-19 07:38] LABS: Anion Gap 4 (5-15); BUN 18 mg/dL (7-18); BUN/Creat Ratio 18.5 RATIO (10-20); Calcium,Total 8.8 mg/dL (8.5-10.1); Chloride 112 mmol/L (98-107); Creatinine, Serum 0.97 mg/dL (0.70-1.30); EST Glomerular Filtration Rate 80 mL/min (>60); Est Glom Filt Rate - Afr Amer 97 mL/min (>60); Estimated Creatinine Clearance 61.21 ml/min; Glucose 97 mg/dL (74-106); Magnesium 2.1 mg/dL (1.6-2.6); Phosphorus 3.5 mg/dL (2.5-4.9); Potassium 3.5 mmol/L (3.5-5.1); Sodium Level 142 mmol/L (136-145)
--- NOTE | 2023-01-19 08:04 | PN.HOSP_ITS ---
Reason for Visit Reason for Visit: Diagnoses Adult failure to thrive (01/18/23) Subjective Subjective Noted by nursing staff to have right-sided weakness which is apparently persisted for weeks CT of the head obtained on admission came back unremarkable MRI of the head with and without contrast subsequently ordered for further evaluation Objective Data Objective Data Vital Signs: Vital Signs Temp Pulse Resp BP Pulse Ox O2 Del Method 97.8 F 64 16 154/75 H 96 Room Air 01/19/23 02:30 01/19/23 02:30 01/19/23 02:30 01/19/23 02:30 01/19/23 02:30 01/19/23 02:30 Oxygen Delivery Method Room Air Weight: 109.9 kg Body Mass Index (BMI) 39.1 Intake & Output: Intake and Output for Last 24 Hours 01/17/23 01/18/23 01/19/23 23:59 23:59 23:59 Output Total 200 / 200 Balance -200 / -200 Lab / Micro Data 01/19/23 06:50 01/19/23 06:50 Labs: Laboratory Results - last 24 hr 01/18/23 07:59: WBC 11.7 H, RBC 5.34, Hgb 16.3, Hct 49.3, MCV 92.3, MCH 30.5, MC HC 33.1, RDW Std Deviation 47.9 H, RDW Coeff of Naz 14.5, Plt Count 217, MPV 10.5, Immature Gran % (Auto) 0.500, Neut % (Auto) 81.1 H, Lymph % (Auto) 10.3 L, [place] % (Auto) 5.5, Eos % (Auto) 2.3, Baso % (Auto) 0.3, Absolute Neuts (auto) 9.5 H, Absolute Lymphs (auto) 1.21, Nucleated RBC % 0, Sodium 140, Potassium 4.0, Chloride 110 H, Carbon Dioxide 27.0, Anion Gap 3 L, BUN 16, Creatinine 0.97, Estim Creat Clear Calc 61.21, Est GFR (MDRD) Af Amer 97, Est GFR (MDRD) Non-Af 81, BUN/Creatinine Ratio 16.5, Glucose 105, Calcium 8.9 01/19/23 06:50: WBC 8.6, RBC 4.93, Hgb 15.5, Hct 45.0, MCV 91.3, MCH 31.4, MCHC 34.4, RDW Std Deviation 48.8 H, RDW Coeff of Naz 14.6, Plt Count 200, MPV 9.8, Immature Gran % (Auto) 0.200, Neut % (Auto) 73.1 H, Lymph % (Auto) 15.6 L, [place] % (Auto) 7.4, Eos % (Auto) 3.5, Baso % (Auto) 0.2, Absolute Neuts (auto) 6.3, Absolute Lymphs (auto) 1.35, Nucleated RBC % 0, Sodium 142, Potassium 3.5, Chloride 112 H, Carbon Dioxide 26.0, Anion Gap 4 L, BUN 18, Creatinine 0.97, Estim Creat Clear Calc 61.21, Est GFR (MDRD) Af Amer 97, Est GFR (MDRD) Non-Af 80, BUN/Creatinine Ratio 18.5, Glucose 97, Calcium 8.8, Phosphorus 3.5, Magnesium 2.1 Radiography Diagnostic Testing: Radiology Impression Brain CT 01/18/23 06:49 IMPRESSION: Chronic involutional changes of the brain. No acute abnormality is seen. Electronically Signed: Ramiro Norris MD at 8:50 EDT , Cervical Spine CT 01/18/23 06:51 IMPRESSION: Multilevel degenerative changes, as described above. Electronically Signed: Ramiro Norris MD at 8:53 EDT , Femur X-Ray 01/18/23 08:25 IMPRESSION: Soft tissue swelling. Electronically Signed: Ramiro Norris MD at 8:54 EDT , Knee X-Ray 01/18/23 08:25 IMPRESSION: Degenerative arthrosis. Electronically Signed: Ramiro Norris MD at 9:07 EDT , Lumbar Spine X-Ray 01/18/23 08:25 IMPRESSION: Degenerative changes of the spine, as detailed above. Electronically Signed: Ramiro Norris MD at 8:55 EDT , Pelvis X-Ray 01/18/23 08:25 IMPRESSION: Degenerative changes. No fracture is seen. Electronically Signed: Ramiro Norris MD at 9:04 EDT , Shoulder X-Ray 01/18/23 08:25 IMPRESSION: Joint space narrowing. Decreased space between the humeral head and acromion suggestive of rotator cuff pathology. Electronically Signed: Ramiro Norris MD at 9:02 EDT , Thoracic Spine X-Ray 01/18/23 08:25 IMPRESSION: Multilevel spondylosis and disc space narrowing. Electronically Signed: Ramiro Norris MD at 9:16 EDT , Physical Exam Narrative GENERAL: cooperative HEENT: Atraumatic; normocephalic EYES; Anicteric, Normal Conjunctiva NECK; supple, normal thyroid, RESPIRATORY: Diminished to auscultation CARDIOVASCULAR: Regular S1 S2, GI: soft, normoactive bowel sounds, : No Renal angle tenderness; EXTREMITIES: No edema, no clubbing, MUSCULOSKELETAL: Movement severely restricted in right shoulder NEURO: Awake; subjective right upper extremity weakness SKIN: No Rash PSYCH; Flat affect Assessment & Plan Assessment/Plan (1) FTT (failure to thrive) in adult: PLAN: Plan Patient is a 72-year-old gentleman admitted with multiple falls 1. Physical deconditioning - Requested for PT OT eval and social work associate to assist with discharge planning ? 01/19/2023; Noted by nursing staff to have right-sided weakness which is apparently persisted for weeks CT of the head obtained on admission came back unremarkable MRI of the head with and without contrast subsequently ordered for further evaluation 2. Right shoulder pain ? Possibly related to rotator cuff tendinopathy patient reports not being able to move the right upper extremity ordered MRI of the brain to rule out stroke as well as MRI of the shoulder to evaluate the rotator cuff tendinopathy consult placed orthopedic surgery 3. Chronic A-fib ? Rate controlled on systemic anticoagulation with Xarelto continue 4 Class II obesity with BMI of 39.2 ? Complicating care, weight loss advised 5. Hypertension - Blood pressure controlled, home medications continued with dose adjustment as needed 6. Dyslipidemia ? Patient is on rosuvastatin did contain 7. DVT prophylaxis ? Patient already on systemic anticoagulation with Xarelto Time spent in the patient's overall evaluation,decision-making process, review of diagnostic data, adjustment of management, discussion with other providers, nursing nursing and ancillary staff involved in patient's care documentation, 50 Minutes Charges/Coding Visit Charges Inpatient E&M: 87530 [facility] L3
--- NOTE | 2023-01-19 08:09 | MRI_ITS ---
EXAM: MR RIGHT shoulder WITHOUT INTRAVENOUS CONTRAST CLINICAL INDICATION: Rotator cuff tendinopathy TECHNIQUE: Multiplanar and multisequence MR images of the right shoulder without intravenous contrast. COMPARISON: X-ray 01/18/2023. FINDINGS: LIMITATIONS: Quality: This study is significantly limited due to patient motion on all pulse sequences. BONES/JOINTS: Marrow signal shows no fracture, bone contusion or osteonecrosis. Moderate fluid in the subdeltoid-subacromial bursa consistent with rotator cuff tear. Complete supraspinatus tendon tear with 4 cm tendon gap. Proximal muscle atrophy. Complete infraspinatus tendon tear with 3.5 cm tendon gap. Roxanol muscle atrophy. Subscapularis and teres minor tendons appear intact. Intra-articular biceps tendon is not definitely seen. No obvious labral tear, limited assessment. Moderate joint effusion. Small joint effusion in the acromioclavicular joint. MRI/Upper Ext Joint Only(Routine) IMPRESSION: 1. Limited study due to patient motion. 2. Complete supraspinatus and infraspinatus tendon tears. 3. Joint and bursal effusions. Electronically Signed: Sharita Higgins MD at 23:32 EDT Reading Location ID and State: [id number] / Tel , Service support ,
[2023-01-19] MEDS: 0.9% Saline Lock 10 ML Syringe IV ×2 (08:16→14:19)
[2023-01-19] MEDS: Atenolol 50 MG Tablet PO (08:16)
[2023-01-19 08:28] VITALS: BP 187/97; PULSE 77; RESP 18; TEMP 36.8; O2SAT 98
[2023-01-19] MEDS: Potassium Chloride Oral Tablet 20 MEQ PO ×2 (09:24→16:21)
[2023-01-19] MEDS: Miconazole Nitrate 43 GM Bottle 1 APPLIC TOPICAL ×2 (09:26→21:26)
[2023-01-19 11:14] VITALS: BP 184/121; PULSE 65; RESP 18; TEMP 37.1; O2SAT 100
--- NOTE | 2023-01-19 12:45 | CASEMGMT ---
JON MI Face to Face with patient for initial transition planning/care coordination assessment. JON MI introduced self and role at [facility]. Patient lying in bed, alert and oriented. Patient willing to participate in assessment and is able to answer all questions appropriately. Care providers, pharmacy, and demographics verified. Patient states he has no further needs or concerns at this time. CM to follow for discharge planning needs that may arise. PCP:Mikey Specialists:Denies Preferred Pharmacy:[facility] Retail Insurance:[facility] [employer] Prescription Benefit: yes LNOK:Maco Roberson, son; Naeem Roberson, son Living Arrangements:Pt lives with son Naeem in a two story home with 3 steps to enter with a rail. Pt reports he was able to perform his own ADLs until this past Sunday. He states his son cooks but he got his own groceries and did his own laundry. Pt denies concerns at home. Transportation: Pt drives self and denies concerns with transportation. DME:Pt has a cane and walker and uses both depending on the day he is having. Pt states he has a scooter but he needs to get a new one. HHC:Pt has had HHC in the past but is unable to recall the agency. SNF:[facility] Disposition Plan:TBD, pending MRI and therapy evals
--- NOTE | 2023-01-19 14:05 | CASEMGMT ---
?Met with patient to complete HOLLIS form. HOLLIS form explained to patient who voiced understanding and signed form. Original form placed in pt?s chart and copy provided to patient. Mary Salcido, Discharge Planning Asst.
[2023-01-19] MEDS: HYDROmorphone 1 MG/ML Syringe IV (14:19)
--- NOTE | 2023-01-19 14:23 | CHAPLAIN ---
Type of Pastoral Visit _x__ Initial Visit ___ Follow-up Visit ___ On-call Visit ___ General Patient Visit ___ Spiritual Assessment ___ Family Conference ___ Bereavement ___ Rapid Response ___ Code Blue ___ Other (describe below) Pastoral Care Referral From _x__ Patient ___ Family ___ Nurse ___ Physician ___ Senior Safety Management Consultant ___ Secondary Market Manager ___ Other (describe below) Sacrament/Intervention _x__ Active listening ___ Anointing ___ Mormon ___ Bereavement ___ Communion ___ Estefany exploration ___ ___ Life review _x__ Prayer ___ Reconciliation ___ Sacrament of Sick ___ Supportive presence ___ Wedding ___ Other (describe below) Pastoral Comments patient is slow to answer questions but describes his latest health issue and need for more testing; family members walk in to visit; patient agrees that prayer would be good and that he has no other needs or concerns
[2023-01-19 14:31] VITALS: O2SAT 100
[2023-01-19] MEDS: Rivaroxaban 20 MG Tablet PO (16:33)
[2023-01-19 18:25] VITALS: BP 168/82; PULSE 68; RESP 18; TEMP 36.8
[2023-01-19 21:25] VITALS: BP 156/83; PULSE 98; RESP 16; TEMP 36.8; O2SAT 95
[2023-01-19] MEDS: Atorvastatin Calcium 40 MG Tablet PO (21:26)
[2023-01-19] MEDS: Acetaminophen 500 MG Tablet 1000 MG PO (21:26)
[2023-01-19] MEDS: Lisinopril 20 MG Tablet PO (21:26)
[2023-01-20 03:00] VITALS: BP 158/86; PULSE 65; RESP 18; TEMP 36.6; O2SAT 95
[2023-01-20] MEDS: Menthol/Lanolin/Calamine/Znox 113 GM Tube 1 APPLIC TOPICAL ×2 (05:42→21:21)
[2023-01-20] MEDS: Acetaminophen 500 MG Tablet 1000 MG PO ×3 (05:42→21:22)
--- NOTE | 2023-01-20 07:13 | PCM.PN.HOSP ---
Reason for Visit Reason for Visit: Diagnoses Adult failure to thrive (01/18/23) Subjective Subjective MRI demonstrated Acute infarct involving the left em radiata. Moderately severe microvascular disease. Consistent with his deficit. Patient transferred to monitored bed ordered 2D echo CTA of the head and neck speech, occupational and physical therapy. Patient started on antiplatelet therapy as well as statin therapy with consultation placed to telemetry neurology Objective Data Objective Data Vital Signs: Vital Signs Temp Pulse Resp BP Pulse Ox O2 Del Method 97.8 F 65 18 158/86 H 95 Room Air 01/20/23 03:00 01/20/23 03:00 01/20/23 03:00 01/20/23 03:00 01/20/23 03:00 01/20/23 03:00 Oxygen Delivery Method Room Air Weight: 109.9 kg Body Mass Index (BMI) 39.1 Intake & Output: Intake and Output for Last 24 Hours 01/18/23 01/19/23 01/20/23 23:59 23:59 23:59 Output Total 425 / 675 500 / 500 Balance -425 / -675 -500 / -500 Lab / Micro Data 01/19/23 06:50 01/19/23 06:50 Labs: Laboratory Results - last 24 hr 01/19/23 06:50: Sodium 142, Potassium 3.5, Chloride 112 H, Carbon Dioxide 26.0, Anion Gap 4 L, BUN 18, Creatinine 0.97, Estim Creat Clear Calc 61.21, Est GFR (MDRD) Af Amer 97, Est GFR (MDRD) Non-Af 80, BUN/Creatinine Ratio 18.5, Glucose 97, Calcium 8.8, Phosphorus 3.5, Magnesium 2.1 Radiography Diagnostic Testing: Radiology Impression Brain MRI 01/19/23 05:55 IMPRESSION: 1. 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 2. Moderately severe microvascular disease. Electronically Signed: Jacqueline Torres MD at 5:37 EDT , Upper Extremity MRI 01/19/23 08:09 IMPRESSION: 1. Limited study due to patient motion. 2. Complete supraspinatus and infraspinatus tendon tears. 3. Joint and bursal effusions. Electronically Signed: Sharita Higgins MD at 23:32 EDT Reading Location ID and State: [id number] / Tel , Service support , Physical Exam Narrative GENERAL: cooperative HEENT: Atraumatic; normocephalic EYES; Anicteric, Normal Conjunctiva NECK; supple, normal thyroid, RESPIRATORY: Diminished to auscultation CARDIOVASCULAR: Regular S1 S2, GI: soft, normoactive bowel sounds, : No Renal angle tenderness; EXTREMITIES: No edema, no clubbing, MUSCULOSKELETAL: Movement severely restricted in right shoulder NEURO: Awake; right upper extremity hemiparesis SKIN: No Rash PSYCH; Flat affect Assessment & Plan Assessment/Plan (1) FTT (failure to thrive) in adult: PLAN: Plan Patient is a 72-year-old gentleman admitted with multiple falls 1. Acute CVA ? Patient was found to have significant right-sided flaccidity.MRI demonstrated Acute infarct involving the left em radiata. Moderately severe microvascular disease. Consistent with his deficit. Patient transferred to monitored bed ordered 2D echo CTA of the head and neck speech, occupational and physical therapy. Patient started on antiplatelet therapy as well as statin therapy with consultation placed to telemetry neurology 2.. Physical deconditioning - Requested for PT OT eval and social services director to assist with discharge planning ? 01/19/2023; Noted by nursing staff to have right-sided weakness which is apparently persisted for weeks CT of the head obtained on admission came back unremarkable MRI of the head with and without contrast subsequently ordered for further evaluation 3.. Right shoulder pain ? Possibly related to rotator cuff tendinopathy patient reports not being able to move the right upper extremity ordered MRI of the brain to rule out stroke as well as MRI of the shoulder to evaluate the rotator cuff tendinopathy consult placed orthopedic surgery ?01/20/2023;2. MRI of the shoulder did show complete supraspinatus and infraspinatus tendon tears.. Patient seen in consultation by Dr. Ortega with orthopedic surgery is noted recommendations reviewed 4. Chronic A-fib ? Rate controlled on systemic anticoagulation with Xarelto continue 5. Class II obesity with BMI of 39.2 ? Complicating care, weight loss advised 6. Hypertension - Blood pressure controlled, home medications continued with dose adjustment as needed 7. Dyslipidemia ? Patient is on rosuvastatin did contain 8. DVT prophylaxis ? Patient already on systemic anticoagulation with Xarelto Time spent in the patient's overall evaluation,decision-making process, review of diagnostic data, adjustment of management, discussion with other providers, nursing nursing and ancillary staff involved in patient's care documentation, 50 Minutes Charges/Coding Visit Charges Inpatient E&M: 83713 Subs Hosp L3
--- NOTE | 2023-01-20 07:38 | CONS.ORTHO ---
HPI Consult Data Date of Consult: 01/20/23 HPI Narrative Reason for Consultation: Right-sided weakness, cuff tear arthropathy HPI Narrative: TURNER YAN, is a 72 M who presents after multiple falls at home and right-sided weakness times approximately 1 week duration. X-ray of the right shoulder revealed cuff tear arthropathy. MRI was ordered by primary team. He reports several years of right shoulder pain. He states he has developed inability to move his hand, elbow and shoulder as well as weakness in his right lower extremity over the past week. MRI yesterday showed acute left-sided stroke. He reports some tingling in his left lower extremity. Reports remote right elbow ulnar nerve transposition. Denies fevers, chills, nausea vomiting, chest pain or shortness of breath. [facility] Medical History (Updated 01/20/23 @ 07:[address] 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, nasal cavity and accessory sinuses BPH (benign prostatic hyperplasia) Cardiac murmur, unspecified Cellulitis of right lower limb Cervical disc disease CPAP (continuous positive airway pressure) dependence Deep venous thrombosis Dyspnea on minimal exertion Essential (primary) hypertension Former smoker FTT (failure to thrive) in adult GERD (gastroesophageal reflux disease) Hyperglycemia Hyperlipidemia Leg pain Lymphedema New onset atrial fibrillation (03/24/20) 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 Obesity ANDREE (obstructive sleep apnea) Pain in right lower leg Pain of left great toe Pain of left lower extremity due to injury Skin ulcer of left great toe with fat layer exposed Sleep apnea Toe ulcer Traumatic hematoma of left lower leg Venous insufficiency Home Medications atenolol 50 mg tablet 50 mg PO DAILY HTN 08/23/14 [History Last Taken 01/17/23] lisinopril 20 mg tablet 20 mg PO QHS blood pressure 12/16/21 [History Last Taken 01/17/23] rivaroxaban 20 mg tablet (Xarelto) 20 mg PO DINNER #0 tabs 12/28/21 [Rx Last Taken 01/17/23] acetaminophen 500 mg tablet 500 - 1,000 mg PO Q6H PRN PAIN 01/18/23 [History Last Taken 01/16/23] rosuvastatin 20 mg tablet 20 mg PO DAILY CHOLESTEROL 01/18/23 [History Last Taken 01/17/23] Allergy/AdvReac Type Severity Reaction Status Date / Time apixaban [From Eliquis] AdvReac Intermediate Wet the Verified 01/18/23 14:28 bed: found out later had UTI ibuprofen [From Motrin] AdvReac Nausea Verified 01/18/23 14:28 Family History Mother CAD (coronary artery disease) Hypertension History of cardiac radiofrequency ablation Sister Hypertension Other Arthritis Surgical History (Updated 01/18/23 @ 15:47 by Mary Caceres) H/O cervical spine surgery History of bursectomy History of carpal tunnel release History of carpal tunnel surgery History of coronary artery stent placement (11/29/10) History of coronary artery stent placement History of fusion of cervical spine History of herniorrhaphy History of removal of cyst History of transurethral resection of prostate Social History household members: none Smoking Status: Former smoker alcohol intake: current details: occasional substance use type: does not use additional social history: DOES NOT TAKE ASPIRIN DOES NOT TAKE IBUPROFEN ROS ROS Narrative 12 point review systems obtained, negative unless otherwise noted in HPI. Vital Signs Vital Signs Vital Signs: 01/19/23 08:28 01/19/23 09:00 01/19/23 11:14 Temperature 98.2 F 98.8 F Temperature Source Oral Oral Pulse Rate 77 65 Respiratory Rate 18 18 Respiratory Effort Respiratory Depth Respiratory Pattern Blood Pressure 187/97 H 184/121 H Blood Pressure Mean 127 142 Blood Pressure Source Monitor Blood Pressure Position Sitting Blood Pressure Location Right Arm Pulse Ox 98 100 Oxygen Delivery Method Room Air Room Air Room Air 01/19/23 14:31 01/19/23 18:25 01/19/23 21:25 Temperature 98.3 F Temperature Source Oral Pulse Rate 68 Respiratory Rate 18 Respiratory Effort Normal Non-Labored Respiratory Depth Normal Respiratory Pattern Normal Blood Pressure 168/82 H Blood Pressure Mean 110 Blood Pressure Source Monitor Blood Pressure Position Sitting Blood Pressure Location Right Arm Pulse Ox 100 Oxygen Delivery Method Room Air Room Air Room Air 01/19/23 21:25 01/20/23 03:00 Temperature 98.3 F 97.8 F Temperature Source Temporal Temporal Pulse Rate 98 65 Respiratory Rate 16 18 Respiratory Effort Respiratory Depth Respiratory Pattern Blood Pressure 156/83 H 158/86 H Blood Pressure Mean 107 110 Blood Pressure Source Monitor Monitor Blood Pressure Position Semi-Fowlers Semi-Fowlers Blood Pressure Location Left Arm Left Arm Pulse Ox 95 95 Oxygen Delivery Method Room Air Room Air Weight Weight: 242 lb 4.608 oz Body Mass Index (BMI) 39.1 Physical Exam Narrative General -A&Ox3, NAD, appears stated age. Vital signs stable, afebrile. Respiratory -normal work of breathing, no intercostal retractions. CV -pulses regular, brisk capillary refill ?4 limbs. Abdomen-soft, nontender, nondistended. No guarding, rigidity, rebound tenderness. Musculoskeletal/neurologic -full range of motion nontender throughout left upper and left lower extremity with full sensation and strength in all dermatomes and myotomes. No midline cervical tenderness. Right upper extremity-flaccid paralysis noted C5-T1 myotomes. Sensation intact light touch throughout. Radial pulse 2+ with brisk capillary refill in the fingertips. Absent biceps and triceps reflexes. Right lower extremity-3/5 dorsiflexion, plantarflexion and EHL with inability to perform straight leg raise. DP pulse 2+ brisk upper refill in toes. Sensation intact throughout. Lab / Micro Data 01/19/23 06:50 01/19/23 06:50 Labs: Laboratory Results - last 24 hr 01/19/23 06:50: Sodium 142, Potassium 3.5, Chloride 112 H, Carbon Dioxide 26.0, Anion Gap 4 L, BUN 18, Creatinine 0.97, Estim Creat Clear Calc 61.21, Est GFR (MDRD) Af Amer 97, Est GFR (MDRD) Non-Af 80, BUN/Creatinine Ratio 18.5, Glucose 97, Calcium 8.8, Phosphorus 3.5, Magnesium 2.1 Radiology Impression Brain MRI 01/19/23 05:55 IMPRESSION: 1. 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 2. Moderately severe microvascular disease. Electronically Signed: Jacqueline Torres MD at 5:37 EDT Reading Location ID and State: [address] [place] [address] , Service support , Upper Extremity MRI 01/19/23 08:09 IMPRESSION: 1. Limited study due to patient motion. 2. Complete supraspinatus and infraspinatus tendon tears. 3. Joint and bursal effusions. Electronically Signed: Sharita Higgins MD at 23:32 EDT Reading Location ID and State: [id number] / Tel , Service support , Assessment & Plan Assessment/Plan (1) Rotator cuff tear arthropathy of right shoulder: PLAN: X-rays demonstrate cuff tear arthropathy in the right shoulder which is chronic. MRI again demonstrates cuff tear arthropathy. This would explain his chronic right shoulder pain but would not explain flaccid paralysis on the patient's right side. I suspect patient's acute symptoms are all related to his acute stroke. Defer to primary regarding management. I will sign off at this time. Patient may follow-up on an as-needed basis, but I suspect he will not be a surgical candidate for an extended period of time and flaccid paralysis would limit indications for any reverse shoulder arthroplasty in the future. Thank you for this consultation. Please do not hesitate to call if any questions or concerns arise.
[2023-01-20] MEDS: Potassium Chloride Oral Tablet 20 MEQ PO ×2 (08:06→17:40)
[2023-01-20] MEDS: Atenolol 50 MG Tablet PO (08:07)
[2023-01-20 08:09] VITALS: BP 194/110; PULSE 64; RESP 18; TEMP 36.4; O2SAT 95
[2023-01-20 09:00] VITALS: PULSE 56; RESP 18
--- NOTE | 2023-01-20 10:09 | ECHOCS_ITS ---
Reason For Study: TIA/CVA Procedure This was a 2D Doppler, Color Flow transthoracic echocardiogram. The study was technically difficult. Contrast injection was performed. Exam performed portable in patient room. Left Ventricle Normal LV size. The estimated ejection fraction is 65 %. No evidence for diastolic dysfunction. No regional wall motion abnormalities noted. Right Ventricle Normal RV size. Normal systolic function. Atria Normal left atrium. Normal right atrium. No doppler evidence for ASD. Bubble contrast study negative for right to left interatrial shunt. Mitral Valve There is no mitral valve stenosis. No mitral valve insufficiency. Tricuspid Valve There is no tricuspid stenosis. Unable to estimate RV systolic pressure due to inadequate jet, pulmonary artery pressure probably normal. Aortic Valve Mild diffuse aortic valve thickening. Trisinus/trileaflet aortic valve. There is no aortic stenosis. Trivial aortic valve insufficiency. Pulmonic Valve There is no pulmonic valvular stenosis. No pulmonic valve insufficiency. Medication Diluted definity 2ml given slow IV push to enhance endocardial definition. Performed a rapid injection of agitated mix of 9 cc saline and 1cc air to assess for atrial septal defect. MMode/2D Measurements & Calculations LVIDd: 4.6 cm IVSd: 1.4 cm Ao root diam: 3.1 cm LVIDs: 3.3 cm LVPWd: 1.2 cm LA dimension: 3.6 cm RVDd: 3.4 cm FS: 26.7 % LAV(MOD-bp): 73.2 ml LA A4 area: 28.0 cm2 RA A4 area: 17.2 cm2 LAV(MOD-bp) Indexed: 33.7 ml/m2 LAV(MOD-sp2): 55.7 ml LAV(MOD-sp4): 87.7 ml Doppler Measurements & Calculations MV E max carlos: 95.0 cm/sec Lat Peak E' Carlos: 9.6 cm/sec Med Peak E' Carlos: 8.3 cm/sec E/E' lat: 9.9 E/E' med: 11.4 MV V2 max: 112.2 cm/sec Ao V2 max: 180.1 cm/sec LV V1 max: 105.3 cm/sec MV max P.1 mmHg Ao max P.0 mmHg LV V1 max P.4 mmHg MV V2 mean: 53.5 cm/sec MV mean P.6 mmHg MV V2 VTI: 29.5 cm PA V2 max: 78.0 cm/sec ECHO/Echo Complete W/ Contrast Interpretation Summary The estimated ejection fraction is 65 %. No evidence for diastolic dysfunction. Ordering Physician: Bari Carpio Performed By: Oscar Oro RCS
[2023-01-20 10:24] VITALS: BP 163/103
[2023-01-20] MEDS: 0.9% Saline Lock 10 ML Syringe IV (11:18)
[2023-01-20] MEDS: HYDROmorphone 1 MG/ML Syringe IV (11:19)
--- NOTE | 2023-01-20 11:20 | CT_ITS ---
We are attempting to reach an attending provider to discuss findings. An addendum with communication details will be sent when the communication is complete. INDICATION: History of left acute stroke. EXAMINATION: CT BRAIN WITH CONTRAST TECHNIQUE: Noncontrast axial images were obtained of the brain. Subsequently, routine carotid CT angiogram protocol was performed without and with IV contrast. In addition, images were obtained of the [place] of [place]. NASCET criteria using the distal ICAs for comparison were used for evaluation of stenoses. 3D reconstructions were reviewed. A radiation dose optimization technique was used for this scan. IV Contrast dosage and agent: 100 cc of [id number] COMPARISON: MRI of the brain of 01/19/2023. FINDINGS: --CT BRAIN: BRAIN PARENCHYMA: No intra- or extra-axial hemorrhage. Acute infarct in the left em radiata better evaluated by MRI. Periventricular deep white matter changes likely due to chronic microvascular disease. No intracranial mass or mass effect. There is preservation of the otero/white matter interface. Posterior fossa structures are unremarkable. CSF SPACES: Mild atrophy. Basal cisterns are patent. CALVARIUM, SKULL BASE, PARANASAL SINUSES AND MASTOID AIR CELLS: Mucosal thickening of the left maxillary sinus and postoperative changes in the left maxillary sinus. --CTA NECK: AORTIC ARCH AND BRANCHES: Ascending thoracic aortic aneurysm measuring up to 4.3 cm in AP diameter partially visualized. RIGHT CCA: Tortuosity and ectasia of the proximal right common carotid artery. Atherosclerotic calcifications in the region of the bilateral with no significant stenosis. RIGHT ICA: No occlusion, significant stenosis or dissection. LEFT CCA: No occlusion, significant stenosis or dissection. LEFT ICA: No occlusion, significant stenosis or dissection. RIGHT VERTEBRAL ARTERY: No occlusion, significant stenosis or dissection. LEFT VERTEBRAL ARTERY: No occlusion, significant stenosis or dissection. NECK SOFT TISSUES: Unremarkable. --CTA HEAD: --Anterior circulation: ICAs: No significant stenosis at the intracranial/visualized segments. Mild hypoplastic development of the left A1 segment. ACAs: No significant stenosis at the visualized segments. ACOM: Present. MCAs: No significant stenosis at the visualized segments. --Posterior circulation: PCOMs: Not visualized. grocery manager: No significant stenosis at the visualized segments. BASILAR ARTERY: No significant stenosis. VERTEBRAL ARTERIES: Atherosclerotic calcifications of the left vertebral artery without significant stenosis. No evidence of intracranial aneurysm or vascular malformation. CT/STROKE CTA Head AND Neck W/Con IMPRESSION: 1. No intracranial great vessel stenosis. 2. Mild atherosclerotic calcifications of the right carotid bulb without significant stenosis. 3. Patent internal carotid arteries without significant stenosis. 4. Patent bilateral vertebral arteries without evidence of stenosis or dissection Electronically Signed: Leonardo Vieira MD at 15:00 EDT ,
[2023-01-20 11:42] LABS: Absolute Lymphocyte Count 1.26 X10^3/uL (0.83-4.51); Absolute Neutrophil Count 5.6 X10^3/uL (2.0-7.7); Basophil# 0.03 X10^3/uL; Basophil% 0.4 % (0-1); Eosinophil# 0.38 X10^3/uL; Eosinophils% 4.8 % (0-5); Hematocrit 45.5 % (40-54); Lymphocyte # 1.26 X10^3/ul (0.83-4.51); Lymphocyte % 16.1 % (19-41); Mean Corpuscular Hgb 30.2 pg (27.0-32.0); Mean Corpuscular Volume 91.5 fL (80-94); Mean Platelet Vol. 9.8 fl (6.2-12.0); Monocyte# 0.59 X10^3/uL; Monocyte% 7.5 % (0-10); NRBC Flagged by Analyzer 0 % (0-5); Neutrophil # 5.55 X10^3/uL (2.7-7.7); Neutrophil % 70.8 % (47-70); Platelet Count 193 K/mm3 (150-450); RBC Distribution Width CV 14.7 % (11.6-14.6); Red Blood Count 4.97 M/mm3 (4.6-6.2); White Blood Count 7.8 K/mm3 (4.4-11.0)
--- NOTE | 2023-01-20 11:59 | CASEMGMT ---
Social Work Pt completed PHQ-9 w/SW, pt scored a 0, no indications of depression showing on the PHQ-9 at this time. CLINT Kraft
--- NOTE | 2023-01-20 12:00 | CASEMGMT ---
Social Work SW met w/pt, spoke w/pt about possibly needing to go somewhere for rehab. Pt states has been to [facility] in the past. SW provided to pt lists of both care home facilities and inpt rehab facilities in network w/his insurance, in pt's preferred geographic area and complete w/quality and resource use data. SW did explain to pt both rehab and SNF levels of care. Pt has not yet had PT/OT/SEAM CHECKER, SW and CM to follow up on Sunday to speak again w/pt and then make referrals for the appropriate level of care. CLINT Kraft
[2023-01-20 12:03] LABS: Anion Gap 3 (5-15); BUN 18 mg/dL (7-18); BUN/Creat Ratio 17.3 RATIO (10-20); Calcium,Total 8.4 mg/dL (8.5-10.1); Chloride 111 mmol/L (98-107); Creatinine, Serum 1.04 mg/dL (0.70-1.30); EST Glomerular Filtration Rate 74 mL/min (>60); Est Glom Filt Rate - Afr Amer 90 mL/min (>60); Estimated Creatinine Clearance 57.09 ml/min; Glucose 124 mg/dL (74-106); Magnesium 2.3 mg/dL (1.6-2.6); Potassium 3.5 mmol/L (3.5-5.1); Sodium Level 141 mmol/L (136-145)
[2023-01-20 17:37] VITALS: BP 135/77; PULSE 58; RESP 15; TEMP 36.8; O2SAT 98
[2023-01-20] MEDS: Rivaroxaban 20 MG Tablet PO (17:40)
[2023-01-20] MEDS: Miconazole Nitrate 43 GM Bottle 1 APPLIC TOPICAL (21:21)
[2023-01-20] MEDS: Atorvastatin Calcium 40 MG Tablet PO (21:22)
[2023-01-20] MEDS: Lisinopril 20 MG Tablet PO (21:22)
[2023-01-20 21:40] VITALS: BP 164/104; PULSE 58; RESP 18; TEMP 36.4; O2SAT 94
[2023-01-21] VITALS (9 sets, daily range): BP systolic 168–184; BP diastolic 89–106; PULSE 42–64; RESP 18; TEMP 36.6–36.8; O2SAT 95–98
[2023-01-21 05:23] LABS: Absolute Lymphocyte Count 1.18 X10^3/uL (0.83-4.51); Absolute Neutrophil Count 5.5 X10^3/uL (2.0-7.7); Basophil# 0.02 X10^3/uL; Basophil% 0.3 % (0-1); Eosinophil# 0.37 X10^3/uL; Eosinophils% 4.8 % (0-5); Hematocrit 45.4 % (40-54); Hemoglobin 14.9 g/dL (13.0-16.5); Lymphocyte # 1.18 X10^3/ul (0.83-4.51); Lymphocyte % 15.5 % (19-41); Mean Corp Hgb Conc 32.8 g/dL (32-36); Mean Corpuscular Hgb 30.3 pg (27.0-32.0); Mean Corpuscular Volume 92.5 fL (80-94); Mean Platelet Vol. 9.9 fl (6.2-12.0); Monocyte# 0.54 X10^3/uL; Monocyte% 7.1 % (0-10); NRBC Flagged by Analyzer 0 % (0-5); Platelet Count 200 K/mm3 (150-450); RBC Distribution Width CV 14.6 % (11.6-14.6); RBC Distribution Width SD 49.6 fl (35.1-43.9); Red Blood Count 4.91 M/mm3 (4.6-6.2); White Blood Count 7.6 K/mm3 (4.4-11.0)
[2023-01-21] MEDS: Acetaminophen 500 MG Tablet 1000 MG PO ×3 (05:29→20:56)
[2023-01-21 05:58] LABS: Anion Gap 4 (5-15); BUN 16 mg/dL (7-18); BUN/Creat Ratio 17.2 RATIO (10-20); Calcium,Total 8.2 mg/dL (8.5-10.1); Chloride 110 mmol/L (98-107); Creatinine, Serum 0.93 mg/dL (0.70-1.30); EST Glomerular Filtration Rate 84 mL/min (>60); Est Glom Filt Rate - Afr Amer 102 mL/min (>60); Estimated Creatinine Clearance 63.84 ml/min; Glucose 107 mg/dL (74-106); Magnesium 2.3 mg/dL (1.6-2.6); Potassium 3.8 mmol/L (3.5-5.1); Sodium Level 139 mmol/L (136-145)
--- NOTE | 2023-01-21 08:41 | PN.HOSP_ITS ---
Reason for Visit Reason for Visit: Diagnoses Other specific arthropathies, not elsewhere classified, right shoulder ( 3) Unspecified rotator cuff tear or rupture of right shoulder, not specified as traumatic (01/20/23) Adult failure to thrive (01/20/23) Subjective Subjective Patient seen still has significant right upper extremity hemiparesis. Consult placed to case management to assist with disposition. Objective Data Objective Data Vital Signs: Vital Signs Temp Pulse Resp BP Pulse Ox O2 Del Method 97.8 F 64 18 170/104 H 95 Room Air 01/21/23 05:30 01/21/23 05:30 01/21/23 05:30 01/21/23 05:30 01/21/23 05:30 01/21/23 05:30 Oxygen Delivery Method Room Air Weight: 109.9 kg Body Mass Index (BMI) 39.1 Intake & Output: Intake and Output for Last 24 Hours 01/19/23 01/20/23 01/21/23 23:59 23:59 23:59 Intake Total 500 / 500 Output Total 425 / 675 1000 / 1000 300 / 300 Balance -425 / -675 -500 / -500 -300 / -300 Lab / Micro Data 01/21/23 05:10 01/21/23 05:10 Labs: Laboratory Results - last 24 hr 01/20/23 11:33: WBC 7.8, RBC 4.97, Hgb 15.0, Hct 45.5, MCV 91.5, MCH 30.2, MCHC 33.0, RDW Std Deviation 49.0 H, RDW Coeff of Naz 14.7 H, Plt Count 193, MPV 9.8, Immature Gran % (Auto) 0.400, Neut % (Auto) 70.8 H, Lymph % (Auto) 16.1 L, [place] % (Auto) 7.5, Eos % (Auto) 4.8, Baso % (Auto) 0.4, Absolute Neuts (auto) 5.6, Absolute Lymphs (auto) 1.26, Nucleated RBC % 0, Sodium 141, Potassium 3.5, Chloride 111 H, Carbon Dioxide 27.0, Anion Gap 3 L, BUN 18, Creatinine 1.04, Estim Creat Clear Calc 57.09, Est GFR (MDRD) Af Amer 90, Est GFR (MDRD) Non-Af 74, BUN/Creatinine Ratio 17.3, Glucose 124 H, Calcium 8.4 L, Magnesium 2.3 01/21/23 05:10: WBC 7.6, RBC 4.91, Hgb 14.9, Hct 45.4, MCV 92.5, MCH 30.3, MCHC 32.8, RDW Std Deviation 49.6 H, RDW Coeff of Naz 14.6, Plt Count 200, MPV 9.9, Immature Gran % (Auto) 0.300, Neut % (Auto) 72.0 H, Lymph % (Auto) 15.5 L, [place] % (Auto) 7.1, Eos % (Auto) 4.8, Baso % (Auto) 0.3, Absolute Neuts (auto) 5.5, Absolute Lymphs (auto) 1.18, Nucleated RBC % 0, Sodium 139, Potassium 3.8, Chloride 110 H, Carbon Dioxide 25.0, Anion Gap 4 L, BUN 16, Creatinine 0.93, Estim Creat Clear Calc 63.84, Est GFR (MDRD) Af Amer 102, Est GFR (MDRD) Non-Af 84, BUN/Creatinine Ratio 17.2, Glucose 107 H, Calcium 8.2 L, Phosphorus 3.0, Magnesium 2.3 Radiography Diagnostic Testing: Radiology Impression Echocardiogram 01/20/23 10:09 Interpretation Summary The estimated ejection fraction is 65 %. No evidence for diastolic dysfunction. Ordering Physician: Bari Carpio Performed By: Oscar Oro RCS Head/Neck CTA 01/20/23 11:20 IMPRESSION: 1. No intracranial great vessel stenosis. 2. Mild atherosclerotic calcifications of the right carotid bulb without significant stenosis. 3. Patent internal carotid arteries without significant stenosis. 4. Patent bilateral vertebral arteries without evidence of stenosis or dissection Electronically Signed: Leonardo Vieira MD at 15:00 EDT , ADDENDUM: 01/20/23 1508 IMPRESSION: 1. No intracranial great vessel stenosis. 2. Mild atherosclerotic calcifications of the right carotid bulb without significant stenosis. 3. Patent internal carotid arteries without significant stenosis. 4. Patent bilateral vertebral arteries without evidence of stenosis or dissection N.B. : The above Results were Read Back by Leonardo Vieira MD to Paulino Sheriff RN, and understanding confirmed on 01/20/2023 15:01:25 (ET). Electronically Signed: Leonardo Vieira MD at 15:00 EDT Reading Location ID and State: [address] [place] [address] Tel , Service support , ADDENDUM: 01/20/23 1510 IMPRESSION: 1. No intracranial great vessel stenosis. 2. Mild atherosclerotic calcifications of the right carotid bulb without significant stenosis. 3. Patent internal carotid arteries without significant stenosis. 4. Patent bilateral vertebral arteries without evidence of stenosis or dissection N.B. : The above Results were Read Back by Leonardo Vieira MD to Paulino Schmid RN, and understanding confirmed on 01/20/2023 15:03:45 (ET). Electronically Signed: Leonardo Vieira MD at 15:00 EDT Reading Location ID and State: [facility] / [place] Tel , Service support , Physical Exam Narrative GENERAL: cooperative HEENT: Atraumatic; normocephalic EYES; Anicteric, Normal Conjunctiva NECK; supple, normal thyroid, RESPIRATORY: Diminished to auscultation CARDIOVASCULAR: Regular S1 S2, GI: soft, normoactive bowel sounds, : No Renal angle tenderness; EXTREMITIES: No edema, no clubbing, MUSCULOSKELETAL: Movement severely restricted in right shoulder NEURO: Awake; right upper extremity hemiparesis SKIN: No Rash PSYCH; Flat affect Assessment & Plan Assessment/Plan (1) FTT (failure to thrive) in adult: PLAN: Plan Patient is a 72-year-old gentleman admitted with multiple falls 1. Acute CVA ? Patient was found to have significant right-sided flaccidity.MRI demonstrated Acute infarct involving the left em radiata. Moderately severe microvascular disease. Consistent with his deficit. Patient transferred to monitored bed ordered 2D echo CTA of the head and neck speech, occupational and physical therapy. Patient started on antiplatelet therapy as well as statin therapy with consultation placed to telemetry neurology ? 01/21/2023; consulted recommendations from teleneurology reviewed. We will continue ST/PT/OT as tolerated. 2.. Physical deconditioning - Requested for PT OT eval and pediatric social worker to assist with discharge planning ? 01/19/2023; Noted by nursing staff to have right-sided weakness which is apparently persisted for weeks CT of the head obtained on admission came back unremarkable MRI of the head with and without contrast subsequently ordered for further evaluation ?01/21/2023 Case management consulted to assist with discharge to a snf facility 3.. Right shoulder pain ? Possibly related to rotator cuff tendinopathy patient reports not being able to move the right upper extremity ordered MRI of the brain to rule out stroke as well as MRI of the shoulder to evaluate the rotator cuff tendinopathy consult placed orthopedic surgery ?01/20/2023;2. MRI of the shoulder did show complete supraspinatus and infraspinatus tendon tears.. Patient seen in consultation by Dr. Ortega with orthopedic surgery is noted recommendations reviewed 4. Chronic A-fib ? Rate controlled on systemic anticoagulation with Xarelto continue 5. Class II obesity with BMI of 39.2 ? Complicating care, weight loss advised 6. Hypertension - Blood pressure controlled, home medications continued with dose adjustment as needed ? 01/21/2023 patient blood pressure control not optimal with history of being more than 48 hours patient blood pressure medications adjusted 7. Dyslipidemia ? Patient is on rosuvastatin did contain 8. DVT prophylaxis ? Patient already on systemic anticoagulation with Xarelto Time spent in the patient's overall evaluation,decision-making process, review of diagnostic data, adjustment of management, discussion with other providers, nursing nursing and ancillary staff involved in patient's care documentation, 35 minutes Charges/Coding Visit Charges Inpatient E&M: 34110 Subs Hosp L2
[2023-01-21] MEDS: Potassium Chloride Oral Tablet 20 MEQ PO ×2 (10:18→16:48)
[2023-01-21] MEDS: Miconazole Nitrate 43 GM Bottle 1 APPLIC TOPICAL ×2 (10:19→20:57)
[2023-01-21] MEDS: Lisinopril 20 MG Tablet PO ×2 (12:24→20:55)
[2023-01-21] MEDS: HYDROmorphone 0.5 MG/0.5 ML SYRINGE IV ×3 (12:32→23:12)
[2023-01-21] MEDS: 0.9% Saline Lock 10 ML Syringe IV ×3 (12:33→23:14)
[2023-01-21] MEDS: Menthol/Lanolin/Calamine/Znox 113 GM Tube 1 APPLIC TOPICAL ×2 (13:48→20:57)
[2023-01-21] MEDS: Rivaroxaban 20 MG Tablet PO (16:47)
[2023-01-21] MEDS: Atorvastatin Calcium 40 MG Tablet PO (20:56)
[2023-01-22] VITALS (10 sets, daily range): BP systolic 143–184; BP diastolic 77–112; PULSE 53–75; RESP 18; TEMP 36.2–36.7; O2SAT 2–100
[2023-01-22] MEDS: hydrALAZINE 20 MG/ML Vial 10 MG IV (02:46)
[2023-01-22] MEDS: 0.9% Saline Lock 10 ML Syringe IV ×2 (02:47→21:21)
[2023-01-22] MEDS: Acetaminophen 500 MG Tablet 1000 MG PO ×3 (05:25→21:21)
[2023-01-22 06:55] LABS: Absolute Lymphocyte Count 1.02 X10^3/uL (0.83-4.51); Absolute Neutrophil Count 6.3 X10^3/uL (2.0-7.7); Basophil# 0.03 X10^3/uL; Basophil% 0.4 % (0-1); Eosinophil# 0.37 X10^3/uL; Eosinophils% 4.4 % (0-5); Hemoglobin 15.8 g/dL (13.0-16.5); Lymphocyte # 1.02 X10^3/ul (0.83-4.51); Lymphocyte % 12.2 % (19-41); Mean Corp Hgb Conc 32.9 g/dL (32-36); Mean Corpuscular Hgb 30.3 pg (27.0-32.0); Mean Platelet Vol. 10.3 fl (6.2-12.0); Monocyte# 0.61 X10^3/uL; Monocyte% 7.3 % (0-10); NRBC Flagged by Analyzer 0 % (0-5); Neutrophil # 6.33 X10^3/uL (2.7-7.7); Neutrophil % 75.3 % (47-70); Platelet Count 199 K/mm3 (150-450); RBC Distribution Width CV 14.6 % (11.6-14.6); RBC Distribution Width SD 48.8 fl (35.1-43.9); Red Blood Count 5.22 M/mm3 (4.6-6.2); White Blood Count 8.4 K/mm3 (4.4-11.0)
[2023-01-22 07:13] LABS: Anion Gap 7 (5-15); BUN 15 mg/dL (7-18); BUN/Creat Ratio 18.7 RATIO (10-20); Calcium,Total 8.8 mg/dL (8.5-10.1); Chloride 111 mmol/L (98-107); EST Glomerular Filtration Rate 100 mL/min (>60); Est Glom Filt Rate - Afr Amer 121 mL/min (>60); Estimated Creatinine Clearance 74.21 ml/min; Glucose 96 mg/dL (74-106); Potassium 3.8 mmol/L (3.5-5.1); Sodium Level 141 mmol/L (136-145)
--- NOTE | 2023-01-22 09:27 | PN.HOSP_ITS ---
Reason for Visit Reason for Visit: Diagnoses Other specific arthropathies, not elsewhere classified, right shoulder ( 3) Unspecified rotator cuff tear or rupture of right shoulder, not specified as traumatic (01/20/23) Adult failure to thrive (01/20/23) Subjective Subjective Still with right sided weakness, more prominent on RUE, less so in RLE. Objective Data Objective Data Vital Signs: Vital Signs Temp Pulse Resp BP Pulse Ox O2 Del Method O2 Flow Rate 36.6 C 64 18 163/105 H 98 Nasal Cannula 2 01/22/23 03:40 01/22/23 03:40 01/22/23 03:40 01/22/23 03:40 01/22/23 03:40 01/22/23 03:40 01/22/23 03:40 Oxygen Flow Rate (L/min) 2 Oxygen Delivery Method Nasal Cannula Weight: 109.9 kg Body Mass Index (BMI) 39.1 Intake & Output: Intake and Output for Last 24 Hours 01/20/23 01/21/23 01/22/23 23:59 23:59 23:59 Intake Total 500 / 500 840 / 840 Output Total 1000 / 1000 980 / 980 300 / 300 Balance -500 / -500 -140 / -140 -300 / -300 Lab / Micro Data 01/22/23 06:10 01/22/23 06:10 Labs: Laboratory Results - last 24 hr 01/22/23 06:10: WBC 8.4, RBC 5.22, Hgb 15.8, Hct 48.0, MCV 92.0, MCH 30.3, MCHC 32.9, RDW Std Deviation 48.8 H, RDW Coeff of Naz 14.6, Plt Count 199, MPV 10.3, Immature Gran % (Auto) 0.400, Neut % (Auto) 75.3 H, Lymph % (Auto) 12.2 L, [place] % (Auto) 7.3, Eos % (Auto) 4.4, Baso % (Auto) 0.4, Absolute Neuts (auto) 6.3, Absolute Lymphs (auto) 1.02, Nucleated RBC % 0, Sodium 141, Potassium 3.8, Chloride 111 H, Carbon Dioxide 23.0, Anion Gap 7, BUN 15, Creatinine 0.80, Estim Creat Clear Calc 74.21, Est GFR (MDRD) Af Amer 121, Est GFR (MDRD) Non-Af 100, BUN/Creatinine Ratio 18.7, Glucose 96, Calcium 8.8 Physical Exam Const alert and no apparent distress Resp normal respiratory effort and no retractions Cardio regular rate, regular rhythm, S1 normal heart sound and S2 normal heart sound GI normal to inspection, nondistended, normoactive bowel sounds, soft to palpation, non-tender and non-distended Extremity normal to inspection and full ROM Neuro oriented x3 Neuro Narrative: Muscle strength 3 out of 5 in the right lower extremity and 0 out of 5 in the right upper extremity. Right facial droop. Assessment & Plan Assessment/Plan (1) CVA (cerebral vascular accident): QUALIFIERS: CVA mechanism: unspecified Qualified Code(s): I63.9 - Cerebral infarction, unspecified PLAN: Acute CVA Patient was found to have significant right-sided flaccidity. MRI brain: Acute infarct involving the left em radiata. Moderately severe microvascular disease. Consistent with his deficit. Patient transferred to monitored bed ordered 2D echo CTA of the head and neck speech, occupational and physical therapy. Patient started on antiplatelet therapy as well as statin therapy with consultation placed to telemetry neurology Teleneurology recommending continue rivaroxaban, ASA. Follow-up with neurology as outpatient (2) Rotator cuff tear arthropathy of right shoulder: PLAN: MRI of the shoulder did show complete supraspinatus and infraspinatus tendon tears.. Patient seen in consultation by Dr. Ortega with orthopedic surgery is noted recommendations reviewed Per Dr. Ortega: Patient may follow-up on an as-needed basis, but I suspect he will not be a surgical candidate for an extended period of time and flaccid paralysis would limit indications for any reverse shoulder arthroplasty in the future. (3) Debility: PLAN: 2/2 CVA Plan for SNF. PLAN: Plan Chronic conditions: * Chronic A-fib? Rate controlled on systemic anticoagulation with Xarelto continue * Class II obesity with BMI of 39.2? Complicating care, weight loss advised * Hypertension- Blood pressure controlled, home medications continued with dose adjustment as needed * Dyslipidemia: continue statin DVT prophylaxis: not indicated as pt already on anticoagulation Disposition: Patient very debilitated. Will require additional therapy with [facility] or acute rehab. Charges/Coding Visit Charges Inpatient E&M: 23916 Subs Hosp L2
[2023-01-22] MEDS: Aspirin 81 MG TAB.CHEW PO (09:39)
[2023-01-22] MEDS: Lisinopril 20 MG Tablet PO ×2 (09:39→21:21)
[2023-01-22] MEDS: Miconazole Nitrate 43 GM Bottle 1 APPLIC TOPICAL ×2 (09:39→21:26)
[2023-01-22] MEDS: Atenolol 50 MG Tablet PO (09:39)
[2023-01-22] MEDS: Potassium Chloride Oral Tablet 20 MEQ PO ×2 (09:39→17:48)
--- NOTE | 2023-01-22 12:17 | CASEMGMT ---
SW spoke with patient. Introduced self and role at [facility]. SW asked patient if he had made any decisions on a discharge plan. Patient said he would like to stay at [facility]. SW explained difference between Rehab and TCU. Patient said he would like to go to the rehab unit and if not there then TCU. SW told patient SW will make the referral. SW explained he would stay at [facility] until his insurance approves him. Patient declined needing SW to call family. Batsheva ANTUNEZ
[2023-01-22] MEDS: Menthol/Lanolin/Calamine/Znox 113 GM Tube 1 APPLIC TOPICAL ×2 (14:36→21:26)
[2023-01-22] MEDS: Rivaroxaban 20 MG Tablet PO (17:48)
[2023-01-22] MEDS: Atorvastatin Calcium 40 MG Tablet PO (21:21)
[2023-01-22] MEDS: HYDROmorphone 1 MG/ML Syringe IV (21:22)
[2023-01-23 00:03] VITALS: BMI 39.1
[2023-01-23 02:54] VITALS: BP 152/88; PULSE 54; RESP 18; TEMP 36.6; O2SAT 99
[2023-01-23] MEDS: Acetaminophen 500 MG Tablet 1000 MG PO ×3 (05:11→21:05)
[2023-01-23] MEDS: Menthol/Lanolin/Calamine/Znox 113 GM Tube 1 APPLIC TOPICAL ×3 (05:12→21:05)
[2023-01-23] MEDS: Ondansetron 4 MG/2 ML Vial IV (07:06)
[2023-01-23] MEDS: 0.9% Saline Lock 10 ML Syringe IV (07:06)
[2023-01-23] MEDS: HYDROmorphone 1 MG/ML Syringe IV (07:08)
[2023-01-23 08:00] VITALS: PULSE 52; O2SAT 95
[2023-01-23 08:05] VITALS: BP 162/95; PULSE 52; RESP 18; TEMP 36.9; O2SAT 95
[2023-01-23] MEDS: Potassium Chloride Oral Tablet 20 MEQ PO ×2 (08:10→16:45)
[2023-01-23] MEDS: Lisinopril 20 MG Tablet PO ×2 (08:10→21:05)
[2023-01-23] MEDS: Miconazole Nitrate 43 GM Bottle 1 APPLIC TOPICAL ×2 (08:10→21:05)
[2023-01-23] MEDS: Aspirin 81 MG TAB.CHEW PO (08:10)
--- NOTE | 2023-01-23 08:37 | PN.HOSP_ITS ---
Reason for Visit Reason for Visit: Diagnoses Cerebral infarction, unspecified (01/20/23) Other specific arthropathies, not elsewhere classified, right shoulder (01/20/23) Unspecified rotator cuff tear or rupture of right shoulder, not specified as traumatic (01/20/23) Other malaise (01/20/23) Adult failure to thrive (01/20/23) Subjective Subjective Moving his RLE better, but still weak. No movement in RUE. Objective Data Objective Data Vital Signs: Vital Signs Temp Pulse Resp BP Pulse Ox O2 Del Method O2 Flow Rate 36.9 C 52 L 18 162/95 H 95 Room Air 2 01/23/23 08:05 01/23/23 08:05 01/23/23 08:05 01/23/23 08:05 01/23/23 08:05 01/23/23 08:05 01/22/23 22:00 Oxygen Flow Rate (L/min) 2 Oxygen Delivery Method Room Air Weight: 109.9 kg Body Mass Index (BMI) 39.1 Intake & Output: Intake and Output for Last 24 Hours 01/21/23 01/22/23 01/23/23 23:59 23:59 23:59 Intake Total 840 / 840 920 / 920 Output Total 980 / 980 1100 / 1250 150 / 150 Balance -140 / -140 -180 / -330 -150 / -150 Lab / Micro Data 01/22/23 06:10 01/22/23 06:10 Physical Exam Const alert and no apparent distress HEENT head/scalp atraumatic Extremity General Extremity: edema bilateral lower extremity Details: mild Neuro Neuro Narrative: 0/5 strenght in RUE. Sensorium / Orientation: awake and alert Assessment & Plan Assessment/Plan (1) CVA (cerebral vascular accident): QUALIFIERS: CVA mechanism: unspecified Qualified Code(s): I63.9 - Cerebral infarction, unspecified PLAN: Acute CVA Patient was found to have significant right-sided flaccidity. MRI brain: Acute infarct involving the left em radiata. Moderately severe microvascular disease. Consistent with his deficit. Patient transferred to monitored bed ordered 2D echo CTA of the head and neck speech, occupational and physical therapy. Patient started on antiplatelet therapy as well as statin therapy with consultation placed to telemetry neurology Teleneurology recommending continue rivaroxaban, ASA. Follow-up with neurology as outpatient (2) Rotator cuff tear arthropathy of right shoulder: PLAN: MRI of the shoulder did show complete supraspinatus and infraspinatus tendon tears.. Patient seen in consultation by Dr. Ortega with orthopedic bharati kalpesh is noted recommendations reviewed Per Dr. Ortega: Patient may follow-up on an as-needed basis, but I suspect he will not be a surgical candidate for an extended period of time and flaccid paralysis would limit indications for any reverse shoulder arthroplasty in the future. (3) Debility: PLAN: 2/2 CVA Plan for SNF. PLAN: Plan Chronic conditions: * Chronic A-fib? Rate controlled on systemic anticoagulation with Xarelto continue * Class II obesity with BMI of 39.2? Complicating care, weight loss advised * Hypertension- Blood pressure controlled, home medications continued with dose adjustment as needed * Dyslipidemia: continue statin DVT prophylaxis: not indicated as pt already on anticoagulation Disposition: Patient very debilitated. Will require additional therapy with halfway facility or ideally acute rehab. Charges/Coding Visit Charges Inpatient E&M: 20811 Subs Hosp L2
[2023-01-23 13:41] VITALS: BMI 39.1
[2023-01-23 14:00] VITALS: BP 168/97; PULSE 53; RESP 18; TEMP 36.9; O2SAT 97
--- NOTE | 2023-01-23 14:49 | CASEMGMT ---
Social Work SW spoke with Nicol in Inpatient Rehab. Precert has not yet been obtained. Green sheet placed on pt chart to be followed in the event precert is obtained this evening. Pt updated on status of review and understanding. Plan: [facility] Inpatient Rehab, pending precert LEIA Chen
[2023-01-23 16:41] VITALS: BP 144/95; PULSE 62; RESP 18; TEMP 36.7; O2SAT 96
[2023-01-23] MEDS: Rivaroxaban 20 MG Tablet PO (16:45)
[2023-01-23 20:30] VITALS: BP 157/82; PULSE 65; RESP 16; TEMP 36.4; O2SAT 97
[2023-01-23] MEDS: Atorvastatin Calcium 40 MG Tablet PO (21:05)
[2023-01-23 21:59] VITALS: BMI 39.1
[2023-01-23 22:01] VITALS: BMI 39.1
[2023-01-24 02:15] VITALS: BP 150/70; PULSE 59; RESP 16; TEMP 36.6; O2SAT 95
[2023-01-24] MEDS: Acetaminophen 500 MG Tablet 1000 MG PO ×3 (05:23→21:01)
[2023-01-24] MEDS: Menthol/Lanolin/Calamine/Znox 113 GM Tube 1 APPLIC TOPICAL ×2 (05:23→21:02)
[2023-01-24 08:15] VITALS: BP 163/80; PULSE 66; RESP 18; TEMP 36.9; O2SAT 97
[2023-01-24] MEDS: Lisinopril 20 MG Tablet PO ×2 (09:04→21:02)
[2023-01-24] MEDS: Atenolol 50 MG Tablet PO (09:04)
[2023-01-24] MEDS: Aspirin 81 MG TAB.CHEW PO (09:04)
[2023-01-24] MEDS: Potassium Chloride Oral Tablet 20 MEQ PO ×2 (09:04→16:37)
[2023-01-24] MEDS: Miconazole Nitrate 43 GM Bottle 1 APPLIC TOPICAL ×2 (09:04→21:02)
--- NOTE | 2023-01-24 09:37 | PCM.PN.HOSP ---
Reason for Visit Reason for Visit: Diagnoses Cerebral infarction, unspecified (01/20/23) Other specific arthropathies, not elsewhere classified, right shoulder (01/20/23) Unspecified rotator cuff tear or rupture of right shoulder, not specified as traumatic (01/20/23) Other malaise (01/20/23) Adult failure to thrive (01/20/23) Subjective Subjective No new changes. Still with dense hemiparesis on RUE. Some motion in RLE. Objective Data Objective Data Vital Signs: Vital Signs Temp Pulse Resp BP Pulse Ox O2 Del Method O2 Flow Rate 36.9 C 66 18 163/80 H 97 Room Air 2 01/24/23 08:15 01/24/23 08:15 01/24/23 08:15 01/24/23 08:15 01/24/23 08:15 01/24/23 08:15 01/22/23 22:00 Oxygen Flow Rate (L/min) 2 Oxygen Delivery Method Room Air Weight: 109.9 kg Body Mass Index (BMI) 39.1 Intake & Output: Intake and Output for Last 24 Hours 01/22/23 01/23/23 01/24/23 23:59 23:59 23:59 Intake Total 920 / 920 600 / 600 Output Total 1100 / 1250 150 / 550 800 / 800 Balance -180 / -330 450 / 50 -800 / -800 Lab / Micro Data 01/22/23 06:10 01/22/23 06:10 Physical Exam Const alert and no apparent distress HEENT head/scalp atraumatic Resp normal respiratory effort, no retractions, no use of accessory muscles and clear to auscultation bilaterally Cardio regular rate, regular rhythm, S1 normal heart sound and S2 normal heart sound GI normal to inspection, nondistended, normoactive bowel sounds, soft to palpation, non-tender and non-distended Assessment & Plan Assessment/Plan (1) CVA (cerebral vascular accident): QUALIFIERS: CVA mechanism: unspecified Qualified Code(s): I63.9 - Cerebral infarction, unspecified PLAN: Acute CVA Patient was found to have significant right-sided flaccidity. MRI brain: Acute infarct involving the left em radiata. Moderately severe microvascular disease. Consistent with his deficit. Patient transferred to monitored bed ordered 2D echo CTA of the head and neck speech, occupational and physical therapy. Patient started on antiplatelet therapy as well as statin therapy with consultation placed to telemetry neurology Teleneurology recommending continue rivaroxaban, ASA. Follow-up with neurology as outpatient (2) Rotator cuff tear arthropathy of right shoulder: PLAN: MRI of the shoulder did show complete supraspinatus and infraspinatus tendon tears.. Patient seen in consultation by Dr. Ortega with orthopedic surgery is noted recommendations reviewed Per Dr. Ortega: Patient may follow-up on an as-needed basis, but I suspect he will not be a surgical candidate for an extended period of time and flaccid paralysis would limit indications for any reverse shoulder arthroplasty in the future. (3) Debility: PLAN: 2/ CVA Plan for SNF. PLAN: Plan Chronic conditions: Chronic A-fib? Rate controlled on systemic anticoagulation with Xarelto continue Class II obesity with BMI of 39.2? Complicating care, weight loss advised Hypertension- Blood pressure controlled, home medications continued with dose adjustment as needed Dyslipidemia: continue statin DVT prophylaxis: not indicated as pt already on anticoagulation Disposition: Patient very debilitated. Will require additional therapy with [facility] facility or ideally acute rehab. I performed a [id number] with Dr. Fragoso. I explained given his profound deficits he would be best suited for acute rehab as he may languish in a SNF. She said that based on some CMS-criteria, she would decline the patient for rehab. She said that it could be appealed and that case management can perform this. I asked how long that would take, she initially said she did not know since it was not her department. Greater than 55 minutes of which 50% of time was counseling patient at bedside about stroke and need for rehab. Also involving time performing a peer to peer. Charges/Coding Visit Charges Inpatient E&M: 26021 [facility] Hosp L3
--- NOTE | 2023-01-24 11:34 | CASEMGMT ---
Social Work Per Nicol in admissions at the [facility], the insurance is requesting a peer to peer for RU LOC determination. Requesting peer to peer be done before 3:30 today. Number to call: , option #5 At time of call will need: Name, , Policy ID number ([id number]) Spoke with Dr. Ortiz of request and physician is willing to complete the peer to peer. Provided information to provider. Updated Nicol in RU. PLAN: RU pending insurance authorization. Social work following. -DAVE Dougherty
--- NOTE | 2023-01-24 14:08 | CASEMGMT ---
Social Work Spoke with Dr. Ortiz, and after peer to peer the insurance is still denying inpatient rehab level of care. Met with patient in room and updated. Discussed next level of care would be SNF and referenced notation that first choice for SNF is [facility]. Patient reports not able to go home yet, and has been to [facility] in the past, but reports would prefer to stay more hospital based. Patient confirms [facility] as next choice. This feature writer offered to call family, but patient declined stating that will update family later today when family visits. Updated Nicol in admissions for [facility] RU and TCU. Nicol reports can accept patient on the TCU pending precert. Plan: [facility], pending insurance precert. -DAVE Dougherty
[2023-01-24 15:00] VITALS: BP 139/84; PULSE 54; RESP 16; TEMP 36.7; O2SAT 96
[2023-01-24 16:22] VITALS: BMI 39.1
[2023-01-24] MEDS: Rivaroxaban 20 MG Tablet PO (16:37)
[2023-01-24 20:00] VITALS: PULSE 64; O2SAT 99
[2023-01-24 21:00] VITALS: BP 140/87; PULSE 62; RESP 16; TEMP 36.5; O2SAT 99
[2023-01-24] MEDS: Atorvastatin Calcium 40 MG Tablet PO (21:02)
[2023-01-24] MEDS: HYDROmorphone 1 MG/ML Syringe IV (23:41)
--- NOTE | 2023-01-25 03:26 | VDLE_ITS ---
Reason For Study: swelling RIGHT LEFT GSV is normal. GSV is normal. CFV is compressible, spontaneous, phasic, CFV is compressible, spontaneous, phasic, competent and demonstrates normal competent, and demonstrates normal augmentation. augmentation. FV is compressible, spontaneous, phasic, FV is compressible, spontaneous, phasic, competent and demonstrates normal competent and demonstrates normal augmentation. augmentation. POP V is compressible, spontaneous, phasic, POP V is compressible, spontaneous, phasic, competent and demonstrates normal competent and demonstrates normal augmentation. augmentation. T/P Trunk is compressible. T/P Trunk is compressible. PTV is compressible. PTV is compressible. RT PerV is compressible. LT PerV is compressible. Procedure This is a venous duplex using B-mode, color flow and spectral Doppler. Exam performed portable in patient room. The exam was diagnostic. A preliminary report was called and/or faxed to PCU hot metal charger. VL/Venous Duplex US - Dominic Extrem Interpretation Summary Deep veins of the bilateral lower extremities are patent and compressible segme ntally. There is no evidence of bilateral lower extremity deep vein thrombosis. The bilateral great saphenous veins appear patent and compressible segmentally. Ordering Physician: Mitch Lynne Performed By: Sukhi Otero RVT
[2023-01-25 04:05] VITALS: BP 136/83; PULSE 85; RESP 18; TEMP 36.8; O2SAT 95
[2023-01-25] MEDS: 0.9% Saline Lock 10 ML Syringe IV (04:09)
[2023-01-25 04:11] VITALS: BMI 39.1
[2023-01-25 04:12] VITALS: PULSE 85
[2023-01-25] MEDS: Acetaminophen 500 MG Tablet 1000 MG PO ×2 (05:50→13:49)
[2023-01-25] MEDS: Menthol/Lanolin/Calamine/Znox 113 GM Tube 1 APPLIC TOPICAL ×2 (05:50→14:43)
[2023-01-25] MEDS: Aspirin 81 MG TAB.CHEW PO (08:19)
[2023-01-25] MEDS: Potassium Chloride Oral Tablet 20 MEQ PO (08:19)
--- NOTE | 2023-01-25 08:44 | PN.HOSP_ITS ---
Reason for Visit Reason for Visit: Diagnoses Cerebral infarction, unspecified (01/20/23) Other specific arthropathies, not elsewhere classified, right shoulder (01/20/23) Unspecified rotator cuff tear or rupture of right shoulder, not specified as traumatic (01/20/23) Other malaise (01/20/23) Adult failure to thrive (01/20/23) Subjective Subjective Still with right sided weakness, though able to twist right ankle. Able to slightly clasp right hand. Objective Data Objective Data Vital Signs: Vital Signs Temp Pulse Resp BP Pulse Ox O2 Del Method O2 Flow Rate 36.8 C 85 18 136/83 H 95 Room Air 2 01/25/23 04:05 01/25/23 04:12 01/25/23 04:05 01/25/23 04:05 01/25/23 04:05 01/25/23 04:05 01/22/23 22:00 Oxygen Flow Rate (L/min) 2 Oxygen Delivery Method Room Air Weight: 109.9 kg Body Mass Index (BMI) 39.1 Intake & Output: Intake and Output for Last 24 Hours 01/23/23 01/24/23 01/25/23 23:59 23:59 23:59 Intake Total 600 / 600 600 / 1050 450 / 450 Output Total 150 / 550 1100 / 1600 500 / 500 Balance 450 / 50 -500 / -550 -50 / -50 Lab / Micro Data 01/22/23 06:10 01/22/23 06:10 Physical Exam Const alert and no apparent distress HEENT HEENT Narrative: right facial droop Neuro Neuro Narrative: Very weak grasp in right hand. able to twist right ankle. Assessment & Plan Assessment/Plan (1) CVA (cerebral vascular accident): QUALIFIERS: CVA mechanism: unspecified Qualified Code(s): I63.9 - Cerebral infarction, unspecified PLAN: Acute CVA Patient was found to have significant right-sided flaccidity. MRI brain: Acute infarct involving the left em radiata. Moderately severe microvascular disease. Consistent with his deficit. Patient transferred to monitored bed ordered 2D echo CTA of the head and neck speech, occupational and physical therapy. Patient started on antiplatelet therapy as well as statin therapy with consultation placed to telemetry neurology Teleneurology recommending continue rivaroxaban, ASA. Follow-up with neurology as outpatient (2) Rotator cuff tear arthropathy of right shoulder: PLAN: MRI of the shoulder did show complete supraspinatus and infraspinatus tendon tears.. Patient seen in consultation by Dr. Ortega with orthopedic surgery is noted recommendations reviewed Per Dr. Ortega: Patient may follow-up on an as-needed basis, but I suspect he will not be a surgical candidate for an extended period of time and flaccid paralysis would limit indications for any reverse shoulder arthroplasty in the future. (3) Debility: PLAN: 2/2 CVA Plan for SNF. PLAN: Plan Chronic conditions: * Chronic A-fib? Rate controlled on systemic anticoagulation with Xarelto continue * Class II obesity with BMI of 39.2? Complicating care, weight loss advised * Hypertension- Blood pressure controlled, home medications continued with dose adjustment as needed * Dyslipidemia: continue statin DVT prophylaxis: not indicated as pt already on anticoagulation Disposition: Patient very debilitated. Will require additional therapy with assisted facility or ideally acute rehab. I performed a [id number] with Dr. Fragoso. I explained given his profound deficits he would be best suited for acute rehab as he may languish in a SNF. She said that based on some CMS- criteria, she would decline the patient for rehab. She said that it could be appealed and that case management can perform this. I asked how long that would take, she initially said she did not know since it was not her department. Patient to go to TCU.
[2023-01-25 09:00] VITALS: BP 147/88; PULSE 53; RESP 16; TEMP 36.5; O2SAT 94
[2023-01-25] MEDS: Atenolol 50 MG Tablet PO (10:45)
[2023-01-25] MEDS: Lisinopril 20 MG Tablet PO (10:45)
[2023-01-25] MEDS: Miconazole Nitrate 43 GM Bottle 1 APPLIC TOPICAL (10:46)
--- NOTE | 2023-01-25 12:00 | CASEMGMT ---
Patient was approved for TCU. SW notified physician. Batsheva ANTUNEZ
--- NOTE | 2023-01-25 12:28 | PCM.TXEXTCAR ---
Diet Diet Order/Speech Therapy: 01/22/23 16:33 Diet: Cardiac - Heart Healthy Food consistency:: Regular Liquid Consistency:: Regular/Thin Routine Orders/Code Status Code Status: Full Code Therapies Weight Bearing: Full weight bearing Extremity Affected:: Right Lower and Right Upper Physical Therapy: Eval and Treat Occupational Therapy: Eval and Treat Speech Therapy: Eval and Treat Problem/Diagnosis (1) CVA (cerebral vascular accident): Status: Acute Code(s): I63.9 - Cerebral infarction, unspecified Plan: Acute CVA Patient was found to have significant right-sided flaccidity. MRI brain: Acute infarct involving the left em radiata. Moderately severe microvascular disease. Consistent with his deficit. Patient transferred to monitored bed ordered 2D echo CTA of the head and neck speech, occupational and physical therapy. Patient started on antiplatelet therapy as well as statin therapy with consultation placed to telemetry neurology Teleneurology recommending continue rivaroxaban, ASA. Follow-up with neurology as outpatient (2) Rotator cuff tear arthropathy of right shoulder: Status: Acute Code(s): M75.101 - Unspecified rotator cuff tear or rupture of right shoulder, not specified as traumatic; M12.811 - Other specific arthropathies, not elsewhere classified, right shoulder Plan: MRI of the shoulder did show complete supraspinatus and infraspinatus tendon tears.. Patient seen in consultation by Dr. Ortega with orthopedic surgery is noted recommendations reviewed Per Dr. Ortega: Patient may follow-up on an as-needed basis, but I suspect he will not be a surgical candidate for an extended period of time and flaccid paralysis would limit indications for any reverse shoulder arthroplasty in the future. (3) Debility: Status: Acute Code(s): R53.81 - Other malaise Plan: 2/2 CVA Plan for SNF. Plan Chronic conditions: Chronic A-fib? Rate controlled on systemic anticoagulation with Xarelto continue Class II obesity with BMI of 39.2? Complicating care, weight loss advised Hypertension- Blood pressure controlled, home medications continued with dose adjustment as needed Dyslipidemia: continue statin DVT prophylaxis: not indicated as pt already on anticoagulation Disposition: Patient very debilitated. Will require additional therapy with assisted facility or ideally acute rehab. I performed a [id number] with Dr. Fragoso. I explained given his profound deficits he would be best suited for acute rehab as he may languish in a SNF. She said that based on some CMS-criteria, she would decline the patient for rehab. She said that it could be appealed and that case management can perform this. I asked how long that would take, she initially said she did not know since it was not her department. Patient to go to TCU. Allergies/Procedures Done in Hospital Allergies apixaban [From Eliquis] Adverse Reaction (Intermediate, Verified 01/18/23 14:28) Wet the bed: found out later had UTI MAKES SICK ON HIS STOMACH ibuprofen [From Motrin] Adverse Reaction (Verified 01/18/23 14:28) Nausea Procedures: 2-D Echocardiogram Type of Care/Length of Stay Estimated LOS: Convalescent Care Less Than 30 days Type of Care Needed: Skilled Rehab Potential: Fair Prognosis: Good Additional Orders/Day of Discharge Day of Discharge: 01/25/23 Dietary and Speech Recommendations Dietitian Recommendations/Changes: Will change diet to cardiac given medical history. ONS not indicated at this time. Discharge Plan Admission Admit Date/Time: 01/20/23 11:29 Primary Reason for Your Visit: Stroke Attending Provider: Kervin Ortiz Primary Care Provider: Shanda Jensen NP Consulting Providers: Bari Carpio; Fabien Ortega Instructions Patient Instructions: ED Peripheral Edema, Bilateral, ED Head Injury (Adult), ED Neck Sprain or Strain Additional Instructions / Restrictions: 1. Apply ice 6-10 times a day to areas of pain/discomfort for the next 3 to 5 days 2. Hold your Eliquis dose for today and tomorrow 3. You have swelling of your lower extremities due to inactivity. This will get worse unless you get up and walk more and elevate your feet. 4. Take Tylenol for pain Discharge Orders/Prescriptions Prescriptions: New atorvastatin 40 mg Tablet 40 mg PO QHS Qty: 0 0RF aspirin 81 mg Tablet,Chewable 81 mg PO BREAKFAST Qty: 0 0RF Continued atenolol 50 MG tablet 50 mg PO DAILY Patient Comments: blood pressure/heart health lisinopril 20 mg tablet 20 mg PO QHS Xarelto 20 mg Tablet 20 mg PO DINNER Qty: 0 0RF acetaminophen 500 mg Tablet 500 - 1,000 mg PO Q6H PRN Patient Comments: PT STATES USUALLY TAKES ONE TABLET, BUT SOMETIMES TAKES TWO TABS BASED ON PAIN LEVEL. Discontinued rosuvastatin 20 mg tablet 20 mg PO DAILY Referrals / Follow Up: [facility] [Provider Group] - Within 1 Month Fabien Ortega DO [Med Staff - Active Staff] - Within 3 Months Low Zheng Chi, MD [Med Staff - Active Staff] - 5-7 Days Shanda Jensen NP, [employer] [Primary Care Provider] - Disposition Disposition (needs filled in before D/C Order can be placed): Longterm Facility (1) CVA (cerebral vascular accident) Qualifiers: CVA mechanism: unspecified Qualified Code(s): I63.9 - Cerebral infarction, unspecified
--- NOTE | 2023-01-25 12:33 | DS.PCM_ITS ---
Providers Date of Admission: 01/20/23 Primary Care Physician: JAVIER Celis Consultations 01/19/23 08:09 Consult: Orthopedics Routine Consulting Provider: Fabien Ortega Reason for Consult: R rotator cuff tendinopathy EMERGENT Consult: No MD Notified: Yes Date Notified: 01/19/23 Time Notified: 08:10 Method of Notification: Text Reason For Visit: PHYSICAL DECONDITIONING Diagnosis Discharge Diagnosis (1) CVA (cerebral vascular accident): Status: Acute Code(s): I63.9 - Cerebral infarction, unspecified Qualifiers: CVA mechanism: unspecified Qualified Code(s): I63.9 - Cerebral infarction, unspecified Plan: Acute CVA Patient was found to have significant right-sided flaccidity. MRI brain: Acute infarct involving the left em radiata. Moderately severe microvascular disease. Consistent with his deficit. Patient transferred to [facility] bed ordered 2D echo CTA of the head and neck speech, occupational and physical therapy. Patient started on antiplatelet therapy as well as statin therapy with consultation placed to telemetry neurology Teleneurology recommending continue rivaroxaban, ASA. Follow-up with neurology as outpatient (2) Rotator cuff tear arthropathy of right shoulder: Status: Acute Code(s): M75.101 - Unspecified rotator cuff tear or rupture of right shoulder, not specified as traumatic; M12.811 - Other specific arthropathies, not elsewhere classified, right shoulder Plan: MRI of the shoulder did show complete supraspinatus and infraspinatus tendon tears.. Patient seen in consultation by Dr. Ortega with orthopedic surgery is noted recommendations reviewed Per Dr. Ortega: Patient may follow-up on an as-needed basis, but I suspect he will not be a surgical candidate for an extended period of time and flaccid paralysis would limit indications for any reverse shoulder arthroplasty in the future. (3) Debility: Status: Acute Code(s): R53.81 - Other malaise Plan: 2/2 CVA Plan for SNF. Plan Chronic conditions: * Chronic A-fib? Rate controlled on systemic anticoagulation with Xarelto continue * Class II obesity with BMI of 39.2? Complicating care, weight loss advised * Hypertension- Blood pressure controlled, home medications continued with dose adjustment as needed * Dyslipidemia: continue statin DVT prophylaxis: not indicated as pt already on anticoagulation Disposition: Patient very debilitated. Will require additional therapy with intermediate facility or ideally acute rehab. I performed a [id number] with Dr. Fragoso. I explained given his profound deficits he would be best suited for acute rehab as he may languish in a SNF. She said that based on some CMS- criteria, she would decline the patient for rehab. She said that it could be appealed and that case management can perform this. I asked how long that would take, she initially said she did not know since it was not her department. Patient to go to TCU. Medications at Discharge Home Medications atenolol 50 mg tablet 50 mg PO DAILY HTN 08/23/14 lisinopril 20 mg tablet 20 mg PO QHS blood pressure 12/16/21 rivaroxaban 20 mg tablet (Xarelto) 20 mg PO DINNER #0 tabs 12/28/21 acetaminophen 500 mg tablet 500 - 1,000 mg PO Q6H PRN PAIN 01/18/23 aspirin 81 mg chewable tablet 81 mg PO BREAKFAST #0 tabs 01/25/23 atorvastatin 40 mg tablet 40 mg PO QHS #0 tabs 01/25/23 Hospital Course Operations None Procedures 2-D Echocardiogram Summary of Care Provided Minutes Spent on Discharge: 45 Hospital Course: 72-year-old male presents with multiple falls. Patient was noted to have right- sided weakness those reported this had been present for some time. Patient had an MRI of the brain that showed acute infarct involving the left em radiata. Patient had very dense right-sided weakness. Patient was able to develop some movement of his hand were to have a very weak grasp of his right hand and would be able to twist his right ankle but beyond that no other significant improvement. Patient was seen by neurology that recommend continue with his rivaroxaban but also adding aspirin. Patient will follow-up with neurology as outpatient. Plan was to get the patient into acute rehab given his dense hemiparesis, however that was declined by the physician that I did the peer to peer with based on what she described as CMS guidelines. She would not elaborate further. Patient has been accepted to the transitional care unit. Patient will have a very prolonged recovery given his dense hemiparesis. Weight / BMI Weight Weight: 109.9 kg Body Mass Index (BMI) 39.1 ABG / Lab / Microbiology Data 01/22/23 06:10 01/22/23 06:10 D/C Instructions Discharge Diet: Low fat / Low cholesterol Meaningful Use Info Meaningful Use Diagnoses (Choose all that apply): Ischemic CVA CVA Therapy Assessed for PT,OT and/or ST?: Yes Ischemic Stroke Antithrombotic order at d/c?: No Reason antithrombotic not ordered: Medical Contraindication Dx of Atrial fib/flutter?: Yes Anticoagulant at discharge?: Yes Statins at discharge?: Yes Primary Dx Acute Ischemic CVA?: Yes IV thrombolytic ordered during stay?: No Reason IV thrombolytic not ordered: Medical Contraindication Discharge Plan Admission Admit Date/Time: 01/20/23 11:29 Primary Reason for Your Visit: Stroke Attending Provider: Kervin Ortiz Primary Care Provider: Shanda Jensen NP Consulting Providers: Bari Carpio; Fabien Ortega Instructions Patient Instructions: ED Peripheral Edema, Bilateral, ED Head Injury (Adult), ED Neck Sprain or Strain Additional Instructions / Restrictions: 1. Apply ice 6-10 times a day to areas of pain/discomfort for the next 3 to 5 days 2. Hold your Eliquis dose for today and tomorrow 3. You have swelling of your lower extremities due to inactivity. This will get worse unless you get up and walk more and elevate your feet. 4. Take Tylenol for pain Discharge Orders/Prescriptions Prescriptions: New atorvastatin 40 mg Tablet 40 mg PO QHS Qty: 0 0RF aspirin 81 mg Tablet,Chewable 81 mg PO BREAKFAST Qty: 0 0RF Continued atenolol 50 MG tablet 50 mg PO DAILY Patient Comments: blood pressure/heart health lisinopril 20 mg tablet 20 mg PO QHS Xarelto 20 mg Tablet 20 mg PO DINNER Qty: 0 0RF acetaminophen 500 mg Tablet 500 - 1,000 mg PO Q6H PRN Patient Comments: PT STATES USUALLY TAKES ONE TABLET, BUT SOMETIMES TAKES TWO TABS BASED ON PAIN LEVEL. Discontinued rosuvastatin 20 mg tablet 20 mg PO DAILY Referrals / Follow Up: [facility] [Provider Group] - Within 1 Month Fabien Ortega DO [Med Staff - Active Staff] - Within 3 Months Low Zheng Chi, MD [Med Staff - Active Staff] - 5-7 Days Shanda Jensen NP, [employer] [Primary Care Provider] - Disposition Disposition (needs filled in before D/C Order can be placed): [facility] Facility Charges/Coding Visit Charges Inpatient E&M: 82042 Disch Hosp >30min
--- NOTE | 2023-01-25 13:48 | CASEMGMT ---
JESSIE notified patient that his insurance approved him to go to [facility] TCU. JESSIE let patient know he will go over today. SW offered to call patient's family and patient declined stating they are hard to get a hold of and they will find out when they come in. Plan: d/c to [facility] TCU under skilled level of care. Batsheva ANTUNEZ
[2023-01-25 14:40] VITALS: BP 150/84; PULSE 97; RESP 18; TEMP 36.3; O2SAT 98
--- NOTE | 2023-01-25 16:04 | PHA.DC.MR.R ---
Pharmacy [place] Med Reconciliation Pharmacy Service has performed discharge medication reconciliation for this patient upon transfer to TCU. The patient's discharge medication list was reviewed for discrepancies and discrepancies were resolved. Medications at Discharge Home Medications atenolol 50 mg tablet 50 mg PO DAILY HTN 08/23/14 lisinopril 20 mg tablet 20 mg PO QHS blood pressure 12/16/21 rivaroxaban 20 mg tablet (Xarelto) 20 mg PO DINNER blood thinner #0 tabs 12/28/21 acetaminophen 500 mg tablet 500 - 1,000 mg PO Q6H PRN PAIN 01/18/23 aspirin 81 mg chewable tablet 81 mg PO BREAKFAST anticoagulant #0 tabs 01/25/23 atorvastatin 40 mg tablet 40 mg PO QHS cholesterol #0 tabs 01/25/23
== END 2023-01-25 14:50 | disposition skilled nursing facility (03) | DRG 65 ==
LOC: ED 10:50 → MS3 11:34 → PCU 01-20 09:51
PROVIDERS: Admitting Provider Internal Medicine; Emergency Provider Emergency Medicine; PCP Nurse Practitioner Family
DX: I63.9 Cerebral infarction, unspecified (principal); I48.20 Chronic atrial fibrillation, unspecified; S09.90XA Unspecified injury of head, initial encounter; I10 Essential (primary) hypertension; I87.2 Venous insufficiency (chronic) (peripheral); S16.1XXA Strain of muscle, fascia and tendon at neck level, initial encounter; I25.10 Atherosclerotic heart disease of native coronary artery without angina pectoris; E78.5 Hyperlipidemia, unspecified; M54.50 Low back pain, unspecified; M75.120 Complete rotator cuff tear or rupture of unspecified shoulder, not specified as traumatic; M17.11 Unilateral primary osteoarthritis, right knee; E66.9 Obesity, unspecified; Z79.01 Long term (current) use of anticoagulants; R62.7 Adult failure to thrive; Z68.39 Body mass index [BMI] 39.0-39.9, adult; Z66 Do not resuscitate; Z95.5 Presence of coronary angioplasty implant and graft; Z79.1 Long term (current) use of non-steroidal anti-inflammatories (NSAID); Z87.891 Personal history of nicotine dependence; Z79.82 Long term (current) use of aspirin
CPT/HCPCS: 36415; 70450; 70496; 70498; 70553; 72072; 72100; 72125; 72170; 73030; 73221; 73552; 73560; 80048; 83735; 84100; 85025; 92526; 93005; 93306; 93970; 94668; 97110; 97112; 97116; 97163; 97167; 97530; 97535; 99285; Q9957; Q9967; A4216; C8929; J2405

== ENCOUNTER 2023-01-25 15:02 | Inpatient (IN) | payer MEDICARE, SELFPAY ==
[2023-01-25 15:35] VITALS: BP 159/95; PULSE 58; RESP 16; TEMP 36; O2SAT 96; BMI 40.0
--- NOTE | 2023-01-25 16:49 | CASEMGMT ---
Social Work Met with patient to complete initial assessment. Pt known to this worker from previous stay. Verified contacts. Discussed code status and pt confirmed full code. Educated to [facility] insurance and continued stay is not guaranteed with each review. Pt's goal is to return home with son and grandchildren. See assessment for barriers. Son entered at the end of the assessment and SW requested son provide copies of advanced directives. Will continue to follow for DC planning. Danica Ching, MAINTENANCE REPAIRER DENTURE PROCESSOR
--- NOTE | 2023-01-25 19:28 | PCM.HP.STD ---
HPI - General General Date of Admission: 01/25/23 Date of Service: 01/25/23 Chief Complaint: Here for rehabilitation. HPI Narrative 01/18/2023 TURNER YNA, is a 72 Male who presents to [facility] Emergency Department with fall. Fall at home, no head injury. Right shoulder pain, different from chronic right shoulder pain. Right hip, right knee pain. CT head okay, CT cervical spine okay. Unable to walk, Unsafe to go home. 01/18/2023 Admit to Hospital. PT/OT for debility. 01/19/2023 MRI brain for right hemiparesis. MRI right shoulder for right rotator cuff tear. 01/20/2023 MRI brain showed acute infarct left em radiata. Order Echo, CTA head/neck, PT/OT/ST for stroke. MRI right shoulder showed rotator cuff tear x 2. 01/20/2023 Echo EF 65%. 01/20/2023 CTA head/neck negative. 01/21/2023 Right upper extremity hemiparesis. Adjust blood pressure medications. 01/22/2023 Right upper extremity weakness worse than right lower extremity weakness. Teleneurology recommends Xarelto AND aspirin. Not surgical candidate for reverse right total shoulder replacement secondary to right upper extremity weakness. 01/23/2023 Moving right lower extremity, not moving right upper extremity. Follow up with neurology as outpatient. 01/24/2023 Dense right upper extremity hemiparesis. PT/OT for SNF. 01/25/2023 Able to clasp right hand. 01/25/2023 Doppler ultrasound bilateral lower extremity negative DVT. 01/25/2023 Admit to TCU with debility, here for rehabilitation, strengthening, prior to discharge home alone. [facility] Medical History (Updated 01/25/23 @ 19:[address] 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, nasal cavity and accessory sinuses BPH (benign prostatic hyperplasia) Cardiac murmur, unspecified Cellulitis of right lower limb Cervical disc disease CPAP (continuous positive airway pressure) dependence Deep venous thrombosis Dyspnea on minimal exertion Essential (primary) hypertension Former smoker FTT (failure to thrive) in adult GERD (gastroesophageal reflux disease) Hyperglycemia Hyperlipidemia Leg pain Lymphedema New onset atrial fibrillation (11/25/20) 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 Obesity ANDREE (obstructive sleep apnea) Pain in right lower leg Pain of left great toe Pain of left lower extremity due to injury Skin ulcer of left great toe with fat layer exposed Sleep apnea Toe ulcer Traumatic hematoma of left lower leg Venous insufficiency Home Medications atenolol 50 mg tablet 50 mg PO DAILY HTN 08/23/14 [History Last Taken 01/25/23 10:45] lisinopril 20 mg tablet 20 mg PO QHS blood pressure 12/16/21 [History Last Taken 01/25/23 10:45] rivaroxaban 20 mg tablet (Xarelto) 20 mg PO DINNER blood thinner #0 tabs 12/28/21 [Rx Last Taken 01/24/23 16:40] acetaminophen 500 mg tablet 500 - 1,000 mg PO Q6H PRN PAIN 01/18/23 [History Last Taken 01/16/23] aspirin 81 mg chewable tablet 81 mg PO BREAKFAST anticoagulant #0 tabs 01/25/23 [Rx Last Taken 01/25/23 08:20] atorvastatin 40 mg tablet 40 mg PO QHS cholesterol #0 tabs 01/25/23 [Rx Last Taken 01/24/23 21:45] Allergy/AdvReac Type Severity Reaction Status Date / Time apixaban [From Eliquis] AdvReac Intermediate Wet the Verified 01/18/23 14:28 bed: found out later had UTI ibuprofen [From Motrin] AdvReac Nausea Verified 01/18/23 14:28 Family History Mother CAD (coronary artery disease) Hypertension History of cardiac radiofrequency ablation Sister Hypertension Other Arthritis Surgical History H/O cervical spine surgery History of bursectomy History of carpal tunnel release History of carpal tunnel surgery History of coronary artery stent placement (11/29/10) History of coronary artery stent placement History of fusion of cervical spine History of herniorrhaphy History of removal of cyst History of transurethral resection of prostate Social History household members: none Smoking Status: Former smoker alcohol intake: current details: occasional substance use type: does not use additional social history: DOES NOT TAKE ASPIRIN DOES NOT TAKE IBUPROFEN ROS Constitutional Constitutional: Reports weakness; Denies chills, fever(s) or weight gain ENT HEENT: Denies headache(s), nasal congestion or nasal discharge Cardiovascular Cardiovascular: Denies chest pain or palpitations Respiratory/Chest Respiratory/Chest: Denies cough, excessive phlegm production or shortness of breath with exertion Gastrointestinal Gastrointestinal: Denies abdominal pain, nausea or vomiting Genitourinary Genitourinary: Denies dysuria Musculoskeletal Musculoskeletal: Denies joint pain or joint swelling Integumentary Integumentary: Denies rash or wounds Neurologic Neurologic: Reports focal weakness and weakness; Denies numbness or tingling Psychiatric Psychiatric: Denies anxiety, auditory hallucinations, depression, homicidal ideation or suicidal ideation Vital Signs Vital Signs Vital Signs: 01/25/23 15:35 01/25/23 15:35 Temperature 96.8 F L Temperature Source Temporal Pulse Rate 58 L 58 L Pulse Rhythm Irregular Pulse Strength Normal (2+) Respiratory Rate 16 16 Respiratory Effort Normal Non-Labored Respiratory Depth Normal Respiratory Pattern Normal Blood Pressure 159/95 H Blood Pressure Mean 116 Blood Pressure Source Monitor Blood Pressure Position Sitting Blood Pressure Location Left Arm Pulse Ox 96 96 Oxygen Delivery Method Room Air Room Air Weight Weight: 112.491 kg Body Mass Index (BMI) 40.0 Physical Exam Const alert General Appearance: cooperative HEENT normocephalic Eyes PERRL and EOMs intact bilaterally Neck supple, no JVD and no carotid bruits Resp normal respiratory effort, normal air movement and clear to auscultation bilaterally Cardio regular rate and regular rhythm GI normal to inspection, nondistended, normoactive bowel sounds, non-tender and non-distended Extremity normal capillary refill General Extremity: Negative for edema Skin no rashes or lesions noted General Skin Exam: no breakdown Neuro Neuro Narrative: Dense right upper extremity hemiplegia. Right lower extremity hemiparesis. Psych affect normal Appearance: appropriate Assessment & Plan Assessment/Plan (1) Debility: (2) CVA (cerebral vascular accident): QUALIFIERS: CVA mechanism: unspecified Qualified Code(s): I63.9 - Cerebral infarction, unspecified (3) Right hemiplegia: (4) Right rotator cuff tear: (5) Atrial fibrillation: (6) Hypertension: (7) Hyperlipidemia: PLAN: Plan 72 year old male with below past medical history hospitalized for stroke, right hemiplegia, complicated by right rotator cuff tear, not surgical candidate, admitted to TCU with debility, here for rehabilitation, strengthening, prior to discharge home alone. Debility - PT/OT. Pain - Tylenol 1000mg q6 prn pain (1-10). Bowel - senna/colace 1 tablet bid prn, Magnesium citrate 300ml daily prn. Adult immunization - Administer pneumonia vaccine, covid19 vaccine, flu vaccine as appropriate. DVT prophylaxis - on Xarelto. Stroke - Xarelto 20mg daily, aspirin 81mg daily added because he stroked while on Xarelto. Atrial Fibrillation - Atenolol 50mg daily, Xarelto 20mg daily. Hypertension - Atenolol 50mg daily, Lisinopril 20mg qhs. Hyperlipidemia - Atorvastatin 40mg qhs. Skin irritation - Eucerin topical bid.
[2023-01-25] MEDS: Petrolatum 33% Tube 1 APPLIC TOPICAL (20:15)
[2023-01-25] MEDS: Atorvastatin Calcium 40 MG Tablet PO (20:16)
[2023-01-25] MEDS: Lisinopril 20 MG Tablet PO (20:16)
[2023-01-25] MEDS: Acetaminophen 500 MG Tablet 1000 MG PO (20:16)
[2023-01-26] MEDS: Acetaminophen 500 MG Tablet 1000 MG PO ×3 (02:54→22:32)
[2023-01-26 06:06] LABS: Absolute Lymphocyte Count 1.01 X10^3/uL (0.83-4.51); Absolute Neutrophil Count 6.5 X10^3/uL (2.0-7.7); Basophil# 0.02 X10^3/uL; Basophil% 0.2 % (0-1); Eosinophil# 0.48 X10^3/uL; Eosinophils% 5.6 % (0-5); Hematocrit 46.4 % (40-54); Lymphocyte # 1.01 X10^3/ul (0.83-4.51); Lymphocyte % 11.8 % (19-41); Mean Corp Hgb Conc 32.3 g/dL (32-36); Mean Corpuscular Hgb 30.3 pg (27.0-32.0); Mean Corpuscular Volume 93.7 fL (80-94); Monocyte# 0.54 X10^3/uL; Monocyte% 6.3 % (0-10); NRBC Flagged by Analyzer 0 % (0-5); Neutrophil # 6.45 X10^3/uL (2.7-7.7); Neutrophil % 75.7 % (47-70); Platelet Count 180 K/mm3 (150-450); RBC Distribution Width CV 14.8 % (11.6-14.6); RBC Distribution Width SD 50.6 fl (35.1-43.9); Red Blood Count 4.95 M/mm3 (4.6-6.2); White Blood Count 8.5 K/mm3 (4.4-11.0)
[2023-01-26 06:49] LABS: Anion Gap 5 (5-15); BUN 16 mg/dL (7-18); BUN/Creat Ratio 18.5 RATIO (10-20); Calcium,Total 8.4 mg/dL (8.5-10.1); Chloride 112 mmol/L (98-107); Creatinine, Serum 0.86 mg/dL (0.70-1.30); EST Glomerular Filtration Rate 92 mL/min (>60); Est Glom Filt Rate - Afr Amer 111 mL/min (>60); Estimated Creatinine Clearance 69.03 ml/min; Glucose 110 mg/dL (74-106); Sodium Level 141 mmol/L (136-145)
[2023-01-26 10:00] VITALS: BP 155/88; PULSE 47; RESP 18; TEMP 36.6; O2SAT 96
[2023-01-26] MEDS: Aspirin 81 MG TAB.CHEW PO (10:07)
[2023-01-26] MEDS: Atenolol 50 MG Tablet PO (10:07)
[2023-01-26] MEDS: Petrolatum 33% Tube 1 APPLIC TOPICAL ×2 (10:15→22:35)
[2023-01-26] MEDS: Tuberculin,Purif.prot.deriv. 50 TU/ML Vial 0.1 ML ID (10:18)
--- NOTE | 2023-01-26 12:08 | NURSING ---
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 He currently live w/his son and enjoys spending time w/family and his grandchildren. He watches tv, has a smartphone, reads and welcomes visit from the hide or skin buffer and therapy dog when available. Staff will continue to remind him of daily activities and respect his right to say no.
--- NOTE | 2023-01-26 14:04 | NURSING ---
removed 18 guage saline lock from LT hand, catheter intact. no s/s infection or bleeding. drsg applied, call light in reach. denies pain or c/o at this time. fresh ice given for coke
--- NOTE | 2023-01-26 14:39 | NURSING ---
SHIRA SANCHEZ ORDERED D/T RESTLESSNESS. MESSAGE LEFT WITH DR MAR FROM [facility].
[2023-01-26] MEDS: Rivaroxaban 20 MG Tablet PO (17:35)
[2023-01-26] MEDS: traMADol 50 MG Tablet PO (17:37)
[2023-01-26] MEDS: Lisinopril 20 MG Tablet PO (22:32)
[2023-01-26] MEDS: Atorvastatin Calcium 40 MG Tablet PO (22:32)
[2023-01-26] MEDS: LORazepam 0.5 MG Tablet PO (22:32)
[2023-01-27] MEDS: Acetaminophen 500 MG Tablet 1000 MG PO ×3 (05:15→21:08)
[2023-01-27] MEDS: Petrolatum 33% Tube 1 APPLIC TOPICAL ×2 (09:52→21:06)
[2023-01-27] MEDS: Atenolol 50 MG Tablet PO (09:53)
[2023-01-27] MEDS: Aspirin 81 MG TAB.CHEW PO (09:53)
[2023-01-27 10:00] VITALS: RESP 14; O2SAT 94
[2023-01-27 13:16] VITALS: BP 134/78; PULSE 51; RESP 18; TEMP 36.3; O2SAT 96
[2023-01-27] MEDS: Rivaroxaban 20 MG Tablet PO (16:49)
[2023-01-27] MEDS: Lisinopril 20 MG Tablet PO (21:09)
[2023-01-27] MEDS: Atorvastatin Calcium 40 MG Tablet PO (21:10)
[2023-01-27] MEDS: LORazepam 0.5 MG Tablet PO (21:12)
[2023-01-27] MEDS: traMADol 50 MG Tablet PO (21:12)
[2023-01-28] MEDS: Acetaminophen 500 MG Tablet 1000 MG PO (05:01)
[2023-01-28] MEDS: Petrolatum 33% Tube 1 APPLIC TOPICAL (09:53)
[2023-01-28] MEDS: traMADol 50 MG Tablet PO (09:53)
[2023-01-28] MEDS: Atenolol 50 MG Tablet PO (09:53)
[2023-01-28] MEDS: Aspirin 81 MG TAB.CHEW PO (09:53)
[2023-01-28 10:00] VITALS: PULSE 76; RESP 14; O2SAT 98
--- NOTE | 2023-01-28 13:45 | NURSING ---
This nurse noted to hear patient yell out. Upon assessment of patient noticeable speech change in patient (Worsening slurring) Patient was difficult to understand. Patient blood pressure was elevated 146/96, bradying HR of 40, SPO2 96 on room air patient blood sugar was 129. Patient states that he has a headache on the left occipital region that radiates to the back of the skull. Patient noted to have increase in weakness in the right leg in which patient could not bear any weight at this time. Patient son in room at this time and concerned for worsening speech and weakness. He noted this has worsened over night and that Patient does not sound right. Charge nurse notified. Evaluation by charge nurse was completed. Cautious measures of initiating stroke alert due to s/s was completed. Patient transported to ED Room 20 at this time w/ Sales Mgr and Security/Respiratory.
[2023-01-28 13:48] LABS: Bedside Glucose 129 mg/dL (74-106)
--- NOTE | 2023-01-28 20:29 | PCM.DC.SUM ---
Providers Date of Admission: 01/25/23 Primary Care Physician: JAVIER Celis Reason For Visit: PHYSICAL DECONDITIONING Diagnosis Discharge Diagnosis (1) Debility: Status: Acute Code(s): R53.81 - Other malaise (2) CVA (cerebral vascular accident): Status: Acute Code(s): I63.9 - Cerebral infarction, unspecified Qualifiers: CVA mechanism: unspecified Qualified Code(s): I63.9 - Cerebral infarction, unspecified (3) Right hemiplegia: Status: Acute Code(s): G81.91 - Hemiplegia, unspecified affecting right dominant side (4) Right rotator cuff tear: Status: Acute Code(s): M75.101 - Unspecified rotator cuff tear or rupture of right shoulder, not specified as traumatic (5) Atrial fibrillation: Status: Acute Code(s): I48.91 - Unspecified atrial fibrillation (6) Hypertension: Status: Chronic Code(s): I10 - Essential (primary) hypertension (7) Hyperlipidemia: Status: Acute Code(s): E78.5 - Hyperlipidemia, unspecified Plan 72 year old male with below past medical history hospitalized for stroke, right hemiplegia, complicated by right rotator cuff tear, not surgical candidate, admitted to TCU with debility, here for rehabilitation, strengthening, prior to discharge home alone. Debility - PT/OT. Pain - Tylenol 1000mg q6 prn pain (1-10). Bowel - senna/colace 1 tablet bid prn, Magnesium citrate 300ml daily prn. Adult immunization - Administer pneumonia vaccine, covid19 vaccine, flu vaccine as appropriate. DVT prophylaxis - on Xarelto. Stroke - Xarelto 20mg daily, aspirin 81mg daily added because he stroked while on Xarelto. Atrial Fibrillation - Atenolol 50mg daily, Xarelto 20mg daily. Hypertension - Atenolol 50mg daily, Lisinopril 20mg qhs. Hyperlipidemia - Atorvastatin 40mg qhs. Skin irritation - Eucerin topical bid. Medications at Discharge Home Medications atenolol 50 mg tablet 50 mg PO DAILY BLOOD PRESSURE 08/23/14 lisinopril 20 mg tablet 20 mg PO QHS BLOOD PRESSURE 12/16/21 rivaroxaban 20 mg tablet (Xarelto) 20 mg PO DINNER BLOOD THINNER #0 tabs 12/28/21 atorvastatin 40 mg tablet 40 mg PO QHS CHOLESTEROL #0 tabs 01/25/23 potassium chloride 20 mEq tablet,extended release(part/cryst) 20 meq PO BID SUPPLEMENT 01/28/23 Hospital Course Operations None Procedures None Summary of Care Provided Minutes Spent on Discharge: 15 Hospital Course: 72 year old male with below past medical history hospitalized for stroke, right hemiplegia, complicated by right rotator cuff tear, not surgical candidate, admitted to TCU with debility, here for rehabilitation, strengthening, prior to discharge home alone. 01/28/2023 Stroke Alert. Discharge to [facility] Emergency Department 01/28/2023 for evaluation, admission to hospital. Weight / BMI Weight Weight: 112.491 kg Body Mass Index (BMI) 40.0 ABG / Lab / Microbiology Data 01/26/23 05:58 01/26/23 05:58 Laboratory: Laboratory Results - last 24 hr 01/28/23 13:28: POC Glucose 129 H Microbiology: Microbiology 01/26/23 06:05 Nasal Secretion SARS-CoV-2 Antigen (Rapid) - Final D/C Instructions Discharge Diet: No restrictions Discharge Activity: Return to Normal Activity Weight Bearing Status: Weight bearing as tolerated Call your doctor if you observe: Fever of 101 or Higher, Inability to urinate, Inability to have a bowel movement, Shortness of breath, Dizziness, Fainting spells, Swelling in the ankles, Chest pain and Uncontrolled pain Additional Instructions: Discharge to [facility] Emergency Department 01/28/2023 for evaluation, admission to hospital. Please Follow Up With: Ider neurology Meaningful Use Info Meaningful Use Diagnoses (Choose all that apply): Ischemic CVA CVA Therapy Assessed for PT,OT and/or ST?: Yes Ischemic Stroke Antithrombotic order at d/c?: Yes Dx of Atrial fib/flutter?: Yes Anticoagulant at discharge?: Yes Statins at discharge?: Yes Primary Dx Acute Ischemic CVA?: Yes IV thrombolytic ordered during stay?: No Reason IV thrombolytic not ordered: Medical Contraindication Discharge Plan Admission Admit Date/Time: 01/25/23 15:02 Primary Reason for Your Visit: Debility. Attending Provider: Low Zheng Chi Primary Care Provider: Shanda Jensen NP Instructions Additional Instructions / Restrictions: Discharge to [facility] Emergency Department 01/28/2023 for evaluation, admission to hospital. Discharge Orders/Prescriptions Prescriptions: No Action atenolol 50 MG tablet 50 mg PO DAILY lisinopril 20 mg tablet 20 mg PO QHS Xarelto 20 mg Tablet 20 mg PO DINNER Qty: 0 0RF potassium chloride 20 mEq tablet,ER particles/crystals 20 meq PO BID atorvastatin 40 mg Tablet 40 mg PO QHS Qty: 0 0RF Referrals / Follow Up: Shanda Jensen NP, [employer] [Primary Care Provider] - Disposition Disposition (needs filled in before D/C Order can be placed): Acute Care Hospital [facility]
--- NOTE | 2023-02-07 08:12 | MDS.RN ---
Information for the mds was obtained from review of the clinical record, interview of resident, staff, and direct observation of resident's care.
== END 2023-01-28 14:45 | disposition short-term general hospital (02) | DRG 57 ==
PROVIDERS: Admitting Provider Family Medicine Geriatric Medicine; PCP Nurse Practitioner Family; Visit Provider Family Medicine Geriatric Medicine
DX: I69.351 Hemiplegia and hemiparesis following cerebral infarction affecting right dominant side (principal); Z68.41 Body mass index [BMI] 40.0-44.9, adult; E66.9 Obesity, unspecified; I48.91 Unspecified atrial fibrillation; I10 Essential (primary) hypertension; E78.5 Hyperlipidemia, unspecified; I25.10 Atherosclerotic heart disease of native coronary artery without angina pectoris; M75.101 Unspecified rotator cuff tear or rupture of right shoulder, not specified as traumatic; F41.9 Anxiety disorder, unspecified; K21.9 Gastro-esophageal reflux disease without esophagitis; G47.33 Obstructive sleep apnea (adult) (pediatric); Z87.891 Personal history of nicotine dependence; Z79.899 Other long term (current) drug therapy; Z79.01 Long term (current) use of anticoagulants; Z79.82 Long term (current) use of aspirin; Z86.718 Personal history of other venous thrombosis and embolism; N40.0 Benign prostatic hyperplasia without lower urinary tract symptoms
CPT/HCPCS: 36415; 80048; 82962; 85025; 87811; 97110; 97116; 97162; 97166; 97530; 97535; 97802

== ENCOUNTER 2023-01-28 13:52 | Inpatient (IN) | payer MEDICARE, SELFPAY ==
[2023-01-28] VITALS (17 sets, daily range): BP systolic 150–205; BP diastolic 88–123; PULSE 38–65; RESP 13–22; TEMP 36.1–37.2; O2SAT 90–99; BMI 47.5; BMI 40.4; BMI 39.8
--- NOTE | 2023-01-28 13:54 | CT_ITS ---
STUDY: CT BRAIN WITHOUT CONTRAST REASON FOR EXAM: Male, 72 years old. Neuro deficit, acute, stroke suspected Individualized dose optimization techniques were used for this CT. TECHNIQUE: Transaxial CT imaging of the brain was performed without administration of intravenous contrast material. COMPARISON: mri 01-19-23 FINDINGS: There are calcifications noted in the distal vertebral arteries. There are calcifications noted in the cavernous carotid arteries. This is consistent for atherosclerotic disease. Normal calvarium. Along the frontal bone, there are subgaleal lipomas.Previous sinus surgery noted. There is left antral window or resection of bone. There is mild cerebral atrophy with widening of the extra-axial spaces and ventricular dilatation. There are areas of decreased attenuation within the white matter tracts of the supratentorial brain, consistent with microvascular disease changes. Normal basal ganglia and thalami. Normal brainstem. There is mild cerebellar atrophy. There is no intracranial hemorrhage. There are no findings of an acute ischemic infarction. Late subacute infarct of the left left em radiata . Normal visualized paranasal sinuses. ASPECTS Score for Acute Strokes: 02/06 CT/STROKE Brain/Head without Cont IMPRESSION: There are no acute findings. Chronic involutional changes of the brain. Critical finding called and case discussed. 01/28/2023 2:14 PM Naty Snowden : The above Results were Read Back by Guicho Brown MD to Eliezer Alfonso MD, and understanding confirmed on 01/28/2023 14:14:21 (ET). Electronically Signed: Guicho Brown MD at 14:15 EDT ,
--- NOTE | 2023-01-28 13:54 | EKG12_ITS ---
Test Reason : POSS STROKE Blood Pressure : / mmHG Vent. Rate : 053 BPM Atrial Rate : 000 BPM P-R Int : 000 ms QRS Dur : 130 ms QT Int : 514 ms P-R-T Axes : 000 -51 122 degrees QTc Int : 482 ms Atrial fibrillation with slow ventricular response Left axis deviation Left bundle branch block Abnormal ECG Confirmed by DAVE GLASS, DEZ ([id number]), book editor HELEN JAMESON ([id number]) on 01/30/2023 2:33:06 PM Referred By: Confirmed By:DEZ ACOSTA MD
--- NOTE | 2023-01-28 13:55 | CT_ITS ---
We are attempting to reach an attending provider to discuss findings. An addendum with communication details will be sent when the communication is complete. EXAM: CT ANGIOGRAPHY HEAD AND NECK WITH INTRAVENOUS CONTRAST CLINICAL INDICATION: Neuro deficit, acute, stroke suspected TECHNIQUE: [place]/head and neck CT angiography protocol performed with intravenous contrast. This CT exam was performed using one or more of the following dose reduction techniques: automated exposure control, adjustment of the mA and/or kV according to patient size, and/or use of iterative reconstruction technique. MIP reconstructed images were created and reviewed. CONTRAST: IV 100mL [id number]-370 RADIATION DOSE: CTDIvol = 33.40 mGy, DLP = 823.61 mGy-cm COMPARISON: No relevant prior studies available. FINDINGS: HEAD: RIGHT ANTERIOR CEREBRAL ARTERY: Unremarkable. No significant stenosis at the visualized segments. Anterior communicating artery is present. No aneurysm. RIGHT MIDDLE CEREBRAL ARTERY: Unremarkable. No significant stenosis at the visualized segments. No aneurysm. RIGHT POSTERIOR CEREBRAL ARTERY: Unremarkable. No occlusion or significant stenosis. No aneurysm. RIGHT INTRACRANIAL INTERNAL CAROTID ARTERY: Unremarkable. No significant stenosis. No dissection or occlusion. RIGHT INTRACRANIAL VERTEBRAL ARTERY: Unremarkable. No significant stenosis. No dissection or occlusion. LEFT ANTERIOR CEREBRAL ARTERY: Unremarkable. No significant stenosis at the visualized segments. No aneurysm. LEFT MIDDLE CEREBRAL ARTERY: Unremarkable. No significant stenosis at the visualized segments. No aneurysm. LEFT POSTERIOR CEREBRAL ARTERY: Unremarkable. No occlusion or significant stenosis. No aneurysm. LEFT INTRACRANIAL INTERNAL CAROTID ARTERY: Unremarkable. No significant stenosis. No dissection or occlusion. LEFT INTRACRANIAL VERTEBRAL ARTERY: Unremarkable. No significant stenosis. No dissection or occlusion. BASILAR ARTERY: Unremarkable. No significant stenosis. No aneurysm. OTHER VASCULATURE: There is mild atherosclerotic plaque formation of the origin of the right internal carotid artery with less than 50% cross sectional diameter stenosis. ALL ABOVE CRITERIA BY NASCET. There is calcified plaque formation of the right cavernous carotid artery, with a mild stenosis (less than 50%). ALL ABOVE CRITERIA BY NASCET. There is calcified plaque formation of the left cavernous carotid artery, with a mild stenosis (less than 50%). ALL ABOVE CRITERIA BY NASCET. No vascular malformation. NECK: RIGHT COMMON CAROTID ARTERY: Unremarkable. No significant stenosis. No dissection or occlusion. RIGHT EXTRACRANIAL INTERNAL CAROTID ARTERY: Unremarkable. No significant stenosis. No dissection or occlusion. RIGHT EXTERNAL CAROTID ARTERY: Unremarkable. No occlusion. RIGHT EXTRACRANIAL VERTEBRAL ARTERY: Unremarkable. No significant stenosis. No dissection or occlusion. LEFT COMMON CAROTID ARTERY: Unremarkable. No significant stenosis. No dissection or occlusion. LEFT EXTRACRANIAL INTERNAL CAROTID ARTERY: Unremarkable. No significant stenosis. No dissection or occlusion. LEFT EXTERNAL CAROTID ARTERY: Unremarkable. No occlusion. LEFT EXTRACRANIAL VERTEBRAL ARTERY: Unremarkable. No significant stenosis. No dissection or occlusion. BRACHIOCEPHALIC AND SUBCLAVIAN ARTERIES: Unremarkable as visualized. No occlusion or significant stenosis. AORTA: 48 mm aneurysmal dilation of the ascending thoracic aorta. LUNG APICES: Unremarkable as visualized. HEAD and NECK: BONES/JOINTS: There are degenerative findings of the cervical spine. Cervical spinal fusion hardware noted. No discrete lytic or blastic abnormalities. SOFT TISSUES: Unremarkable. OTHER FINDINGS: Post-processing of the angiographic images was performed, with axial imaging and 3D reconstruction. MIPS images were obtained. CAROTID STENOSIS REFERENCE USING NASCET CRITERIA: % ICA stenosis = (1 - narrowest ICA diameter/diameter of distal cervical ICA) x 100. Mild - <50% stenosis. Moderate - 50-69% stenosis. Severe - 70-94% stenosis. Near occlusion - 95-99% stenosis. Occluded - 100% stenosis. CT/STROKE CTA Head AND Neck W/Con IMPRESSION: 1. 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 2. There is mild atherosclerotic plaque formation of the origin of the right internal carotid artery with less than 50% cross sectional diameter stenosis. ALL ABOVE CRITERIA BY NASCET. 3. There is calcified plaque formation of the right cavernous carotid artery, with a mild stenosis (less than 50%). ALL ABOVE CRITERIA BY NASCET. 4. There is calcified plaque formation of the left cavernous carotid artery, with a mild stenosis (less than 50%). ALL ABOVE CRITERIA BY NASCET. Electronically Signed: Guicho Brown MD at 14:31 EDT ,
--- NOTE | 2023-01-28 14:27 | EDS_ITS ---
HPI History of Present Illness Chief Complaint: Stroke Alert Informant: patient and SNF Narrative Narrative: History is from patient. I also directly spoke with the nurse who is caring for him upon TCU who came down with the patient. Patient was recently admitted for worsening of generalized weakness and inability ambulate. He also had had a recent fall. He was found to have subacute stroke causing a lot of his weakness. He has been in TCU due to the significant right-sided weakness. Evidently this afternoon his speech got worse. It has been a little slurred since the event but it got much worse. It now seems to be getting better per the nurse that came down with him. Patient has had almost no motion of his right arm since being up in TCU. His right leg has had a little bit of motion but it seemed a little worse this afternoon 2. Patient has some aches and pains but they are not new. He is not having an acute headache. Patient's speech is actually reasonably good now. And he is very alert. 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, nasal cavity and accessory sinuses BPH (benign prostatic hyperplasia) Cardiac murmur, unspecified Cellulitis of right lower limb Cervical disc disease CPAP (continuous positive airway pressure) dependence Deep venous thrombosis Dyspnea on minimal exertion Essential (primary) hypertension Former smoker FTT (failure to thrive) in adult GERD (gastroesophageal reflux disease) Hyperglycemia Hyperlipidemia Leg pain Lymphedema New onset atrial fibrillation (03/24/20) 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 Obesity ANDREE (obstructive sleep apnea) Pain in right lower leg Pain of left great toe Pain of left lower extremity due to injury Skin ulcer of left great toe with fat layer exposed Sleep apnea Toe ulcer Traumatic hematoma of left lower leg Venous insufficiency Home Medications atenolol 50 mg tablet 50 mg PO DAILY BLOOD PRESSURE 08/23/14 [History Last Taken 01/28/23] lisinopril 20 mg tablet 20 mg PO QHS BLOOD PRESSURE 12/16/21 [History Last Taken 01/27/23] rivaroxaban 20 mg tablet (Xarelto) 20 mg PO DINNER BLOOD THINNER #0 tabs 12/28/21 [Rx Last Taken 01/27/23] atorvastatin 40 mg tablet 40 mg PO QHS CHOLESTEROL #0 tabs 01/25/23 [Rx Last Taken 01/27/23] potassium chloride 20 mEq tablet,extended release(part/cryst) 20 meq PO BID SUPPLEMENT 01/28/23 [History Last Taken 01/28/23] Allergy/AdvReac Type Severity Reaction Status Date / Time apixaban [From Eliquis] AdvReac Intermediate Wet the Verified 01/18/23 14:28 bed: found out later had UTI ibuprofen [From Motrin] AdvReac Nausea Verified 01/18/23 14:28 Family History Mother CAD (coronary artery disease) Hypertension History of cardiac radiofrequency ablation Sister Hypertension Other Arthritis Surgical History H/O cervical spine surgery History of bursectomy History of carpal tunnel release History of carpal tunnel surgery History of coronary artery stent placement (11/29/10) History of coronary artery stent placement History of fusion of cervical spine History of herniorrhaphy History of removal of cyst History of transurethral resection of prostate Social History household members: none Smoking Status: Former smoker alcohol intake: current details: occasional substance use type: does not use additional social history: DOES NOT TAKE ASPIRIN DOES NOT TAKE IBUPROFEN ROS ROS ED Constitutional Constitutional ED: Denies chills or fever(s) Eyes Eyes: Denies diplopia ENT ENT ED: Denies rhinorrhea Cardiovascular Cardiovascular: Denies chest pain, palpitations or racing heartbeat Respiratory/Chest Respiratory/Chest: Denies dyspnea Gastrointestinal Gastrointestinal: Denies diarrhea, nausea or vomiting Genitourinary Genitourinary ED: Denies hematuria Musculoskeletal Musculoskeletal: Reports arthralgias Integumentary Denies rash Neurologic Neurologic: Reports paresthesias and weakness; Denies headache(s) Hematologic/Lymphatic Hematologic/Lymphatic: Reports easy bleeding and easy bruising Allergic/Immunologic Allergic/Immunologic ED: Denies urticaria EXAM Physical Exam Narrative Exam Narrative: General: Patient is actually awake and alert. Very interactive. He even has a sense of humor. HEENT: No sign of acute trauma. I am not seeing any weakness of his face. Neck is supple Heart is bradycardic. He does appear to be in atrial fibrillation on the monitor and on exam and he has a history of this. Lungs are clear. No pain with deep breath. Saturations are normal at 97% on room air showing no hypoxia. Abdomen is obese but not tender. Neuro: See NIH stroke scale. Const Vital Signs: 01/28/23 13:53 01/28/23 13:54 01/28/23 14:24 Temperature 97.1 F L Temperature Source Temporal Pulse Rate 42 L 38 L Respiratory Rate 16 14 Blood Pressure 168/106 H 185/104 H Blood Pressure Mean 126 131 Pulse Ox 97 95 Oxygen Delivery Method Room Air Room Air Room Air NIHSS NIHSS Initial: 1a Level of Consciousness: 0 1b LOC Questions (Score 2 if aphasic/stupor): 0 1c LOC Commands (Only score 1st attempt): 0 2 Best Gaze (If aphasic, use reflexive mvmts.): 0 3 Visual: 0 4 Facial Palsy: 0 5 Motor Arm Right (UN = amputation/fusion): 3 5 Motor Arm Left: 0 6 Motor Leg Right: 2 6 Motor Leg Left: 0 7 Limb ataxia (Only + if out of proportion): 0 8 Sensory (Aphasia/stupor=0 or 1, coma=2): 0 9 Best Language: 0 10 Dysarthria (mute, coma=2, intubated=UN): 1 11 Extinction and Inattention (only scored if +): 0 Total Score: 6 MDM MDM MDM Narrative Medical decision making narrative: I discussed the case twice directly with the radiologist. Patient's CT and CT angiogram are not showing acute issues. There is sign of his recent stroke. I discussed the case with the [facility] neurologist who evaluated this patient. Because of his recent stroke and being on Xarelto and improvement this patient is not a candidate for tPA. Patient CBC shows no acute abnormality. He is not acutely anemic. Platelets are normal. Patient's electrolytes show no marked abnormalities. Patient's troponin is negative. My independent interpretation of the patient's single AP chest x-ray shows no acute process and this is consistent with his final reading. My independent interpretation of the patient's CT of the head shows no bleeding. Final reading shows his stroke but no acute process. His CTA of the head also showed no acute large vessel occlusion. I discussed the results of these 2 studies with radiologist. Patient is rechecked. His speech is still not back to his normal. With him states still not back to his new baseline, needing neurochecks, we will admit juanjose white here. He cannot go back to TCU at this time. Case was discussed with hospitalist. I do not think he is likely having acute therapy change. He is reportedly on aspirin. He is also on Xarelto. Patient could have worsening stroke. Some of his symptoms may be due to flow issues related to his bradycardia. His blood pressure is good at this time. But his rate is quite slow. He is still in atrial fibrillation. Lab Data Attestation: I reviewed the patient's lab results. Labs: Laboratory Results - last 24 hr 01/28/23 14:10 WBC 8.5 RBC 4.92 Hgb 15.3 Hct 45.6 MCV 92.7 MCH 31.1 MCHC 33.6 RDW Std Deviation 51.4 H RDW Coeff of Naz 15.2 H Plt Count 188 MPV 9.9 Immature Gran % (Auto) 0.200 Neut % (Auto) 73.1 H Lymph % (Auto) 13.5 L Cedar % (Auto) 7.5 Eos % (Auto) 5.3 H Baso % (Auto) 0.4 Absolute Neuts (auto) 6.2 Absolute Lymphs (auto) 1.15 Nucleated RBC % 0 PT 19.8 H INR 1.7 APTT 46.6 H Sodium 138 Potassium 3.7 Chloride 105 Carbon Dioxide 29.0 Anion Gap 4 L BUN 17 Creatinine 0.91 Estim Creat Clear Calc 65.24 Est GFR (MDRD) Af Amer 105 Est GFR (MDRD) Non-Af 87 BUN/Creatinine Ratio 18.7 Glucose 96 Calcium 8.0 L Troponin I High Sens 20 Radiography Diagnostic Testing: Clinical Impression(s) from Imaging Studies Brain CT 01/28/23 13:54 IMPRESSION: There are no acute findings. Chronic involutional changes of the brain. Critical finding called and case discussed. 01/28/2023 2:14 PM Naty Snowden : The above Results were Read Back by Guicho Brown MD to Eliezer Alfonso MD, and understanding confirmed on 01/28/2023 14:14:21 (ET). Electronically Signed: Guicho Brown MD at 14:15 EDT , ADDENDUM: 01/28/23 1422 IMPRESSION: There are no acute findings. Chronic involutional changes of the brain. Critical finding called and case discussed. 01/28/2023 2:14 PM Naty Snowden : The above Results were Read Back by Guicho Brown MD to Eliezer Aflonso MD, and understanding confirmed on 01/28/2023 14:14:21 (ET). Electronically Signed: Guicho Brown MD at 14:15 EDT , Head/Neck CTA 01/28/23 13:55 IMPRESSION: 1. 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 2. There is mild atherosclerotic plaque formation of the origin of the right internal carotid artery with less than 50% cross sectional diameter stenosis. ALL ABOVE CRITERIA BY NASCET. 3. There is calcified plaque formation of the right cavernous carotid artery, with a mild stenosis (less than 50%). ALL ABOVE CRITERIA BY NASCET. 4. There is calcified plaque formation of the left cavernous carotid artery, with a mild stenosis (less than 50%). ALL ABOVE CRITERIA BY NASCET. Electronically Signed: Guicho Brown MD at 14:31 EDT , ADDENDUM: 01/28/23 1439 IMPRESSION: 1. 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 2. There is mild atherosclerotic plaque formation of the origin of the right internal carotid artery with less than 50% cross sectional diameter stenosis. ALL ABOVE CRITERIA BY NASCET. 3. There is calcified plaque formation of the right cavernous carotid artery, with a mild stenosis (less than 50%). ALL ABOVE CRITERIA BY NASCET. 4. There is calcified plaque formation of the left cavernous carotid artery, with a mild stenosis (less than 50%). ALL ABOVE CRITERIA BY NASCET. N.B. : The above Results were Read Back by Guicho Brown MD to Eliezer Alfonso MD, and understanding confirmed on 01/28/2023 14:32:25 (ET). Electronically Signed: Guicho Brown MD at 14:31 EDT , Chest X-Ray 01/28/23 14:55 IMPRESSION: There are no acute findings. Electronically Signed: Guicho Brown MD at 15:12 EDT , EKG Initial EKG: Comments: My independent interpretation of the patient's EKG shows atrial fibrillation with a bradycardic rate of 53. Left bundle branch block pattern. Nonspecific ST and T wave changes. QRS duration and QTc are long. Discharge Plan Triage Chief Complaint: Stroke Alert ED Provider: Eliezer Alfonso Dx/Rx/DC Orders Clinical Impression: Acute CVA (cerebrovascular accident), Atrial fibrillation, Dysarthria, Bradycardia Prescriptions: No Action atenolol 50 MG tablet 50 mg PO DAILY lisinopril 20 mg tablet 20 mg PO QHS Xarelto 20 mg Tablet 20 mg PO DINNER Qty: 0 0RF potassium chloride 20 mEq tablet,ER particles/crystals 20 meq PO BID atorvastatin 40 mg Tablet 40 mg PO QHS Qty: 0 0RF Primary Care Provider: Shanda Jensen NP Referrals: Shanda Jensen NP, [employer] [Primary Care Provider] - Disposition Disposition: Acute Care Hospital [facility]
[2023-01-28 14:32] LABS: Absolute Lymphocyte Count 1.15 X10^3/uL (0.83-4.51); Absolute Neutrophil Count 6.2 X10^3/uL (2.0-7.7); Basophil# 0.03 X10^3/uL; Basophil% 0.4 % (0-1); Eosinophil# 0.45 X10^3/uL; Eosinophils% 5.3 % (0-5); Hematocrit 45.6 % (40-54); Hemoglobin 15.3 g/dL (13.0-16.5); Lymphocyte # 1.15 X10^3/ul (0.83-4.51); Lymphocyte % 13.5 % (19-41); Mean Corp Hgb Conc 33.6 g/dL (32-36); Mean Corpuscular Hgb 31.1 pg (27.0-32.0); Mean Corpuscular Volume 92.7 fL (80-94); Mean Platelet Vol. 9.9 fl (6.2-12.0); Monocyte# 0.64 X10^3/uL; Monocyte% 7.5 % (0-10); NRBC Flagged by Analyzer 0 % (0-5); Neutrophil # 6.23 X10^3/uL (2.7-7.7); Neutrophil % 73.1 % (47-70); Platelet Count 188 K/mm3 (150-450); RBC Distribution Width CV 15.2 % (11.6-14.6); RBC Distribution Width SD 51.4 fl (35.1-43.9); Red Blood Count 4.92 M/mm3 (4.6-6.2); White Blood Count 8.5 K/mm3 (4.4-11.0)
[2023-01-28 14:40] LABS: International Normalized Ratio 1.7; Prothrombin Time (Protime)PT. 19.8 SECONDS (11.7-14.9)
[2023-01-28 14:42] LABS: Partial Thromboplast Time 46.6 Seconds (24.1-36.2)
[2023-01-28 14:49] LABS: Anion Gap 4 (5-15); BUN 17 mg/dL (7-18); BUN/Creat Ratio 18.7 RATIO (10-20); Chloride 105 mmol/L (98-107); Creatinine, Serum 0.91 mg/dL (0.70-1.30); EST Glomerular Filtration Rate 87 mL/min (>60); Est Glom Filt Rate - Afr Amer 105 mL/min (>60); Estimated Creatinine Clearance 65.24 ml/min; Glucose 96 mg/dL (74-106); Potassium 3.7 mmol/L (3.5-5.1); Sodium Level 138 mmol/L (136-145); Troponin-I HS 20 pg/mL (3.0-78.0)
--- NOTE | 2023-01-28 14:55 | RAD_ITS ---
STUDY: XR Chest 1 View 01/28/2023 2:54 PM REASON FOR EXAM: Male, 72 years old. Neuro deficit, acute, stroke suspected COMPARISON: 03.16.14 TECHNIQUE: XR Chest 1 View FINDINGS: There is no demonstrated pleural abnormality. There is an elevated right hemidiaphragm. Cervical spine fusion hardware noted. Enlarged heart size. Normal mediastinum. Normal kalee. Prominent appearing increased interstitial lung markings. Normal visualized pulmonary arteries. There is atherosclerotic calcification of the aortic arch with tortuosity. There are diffuse degenerative changes of the visualized thoracic spine. There is degenerative osteoarthritis of the bilateral shoulders. There are no acute findings of the upper abdomen. RAD/Chest 1 View IMPRESSION: There are no acute findings. Electronically Signed: Guicho Brown MD at 15:12 EDT ,
--- NOTE | 2023-01-28 15:32 | MRI_ITS ---
EXAM: MR HEAD WITHOUT AND WITH INTRAVENOUS CONTRAST CLINICAL INDICATION: Dysarthria. Slurred speech. TECHNIQUE: Multiplanar and multisequence MR images of the brain were obtained without and with intravenous contrast. CONTRAST: 23 mL of IV Clariscan. COMPARISON: CTA head with and without contrast 01/28/2023. MRI brain with and without contrast 01/19/2023. FINDINGS: BRAIN AND EXTRA-AXIAL SPACES: Diffusion restriction in the left posterior periventricular white matter is increasingly visible on the T2 FLAIR sequence. This is subacute ischemic infarct. Multiple T2 FLAIR hyperintensity in the periventricular white matter of both cerebral hemispheres are chronic white matter ischemic changes and unchanged. No intra- or extra-axial hemorrhage. No intracranial mass or mass effect. Posterior fossa structures are unremarkable. No hydrocephalus. Basal cisterns are patent. No new diffusion restriction to suspect new acute ischemic infarct. SELLA: Unremarkable. Normal sella turcica, pituitary gland, infundibular stalk, optic chiasm and hypothalamus. AUDITORY SYSTEM: Unremarkable. The internal auditory canals are patent. BONES/JOINTS: Unremarkable. No discrete lytic or blastic abnormalities. SINUSES: Unremarkable as visualized. Clear. MASTOID AIR CELLS: Unremarkable as visualized. Clear. ORBITS: Unremarkable as visualized. Both globes, extraocular muscles, optic nerves and retrobulbar fat appear unremarkable. VASCULATURE: Unremarkable as visualized. Normal flow voids in the major intracranial circulation. MRI/Brain W/WO Contrast IMPRESSION: 1. Subacute ischemic infarct in the left posterior periventricular white matter, increasingly visible on the T2 FLAIR sequence when compared to 01/19/2023. 2. Multiple chronic periventricular white matter ischemic changes in both cerebral hemispheres. 3. No abnormally enhancing lesions intra-axially and extra-axially. 4. No significant interval change when compared to 01/19/2023. Electronically Signed: Paulino Lenz MD at 11:10 EDT ,
--- NOTE | 2023-01-28 15:32 | PCM.HP.STD ---
HPI - General General Date of Admission: 01/28/23 Date of Service: 01/28/23 Chief Complaint: Worsening slurred speech and right sided weakness HPI Narrative TURNER YAN, is a 72 M who presented to the emergency department at [facility] on 01/28/2023 after his stroke team was called in the TCU. Patient had a recent admission here from 01/18/2023 through 01/25/2023 at which time he was diagnosed with an acute stroke. He was found to have significant right-sided weakness along with some intermittent speech abnormalities and his MRI at that time showed an acute infarct of the left em radiata with severe microvascular disease. He had fairly dense right-sided weakness at that time but was able to develop some hand movement however had a very weak grasp and his right leg was significantly weak. He was seen by neurology during the hospitalization they [place] commended continuing with his rivaroxaban and adding aspirin. It was recommended he be discharged to acute rehab however insurance company declined and a peer to peer was performed but the physician at the insurance company declined the patient based on [facility] guidelines. He was discharged to the transitional care unit for ongoing therapy services and had been doing quite well with his therapy however today he was noted to have some worsening right-sided weakness and worsening speech abnormalities. Upon arrival to the emergency department he was found to have significant bradycardia. He had known history of atrial fibrillation and has been on atenolol for him p.o. and Xarelto for this. Heart rates were anywhere from 30-50. When I reviewed previous heart rates it does not appear that he has had any heart rates that were persistently low at his previous admission. Temperature on mission was 97.1, heart rate was running anywhere from 30-50, blood pressure was elevated at 168/106, respiratory rate was 16 and oxygen saturation was 97% on room air. During my evaluation he intermittently had some abnormal breathing patterns when his heart rate was low. His CBC was unremarkable. His coags were abnormal given his Xarelto use at baseline and his chemistry panel was unremarkable. His troponin was 20. A CT of his brain showed no acute findings and chronic involutional changes. CTA of the head and neck showed no acute changes when compared to previous. Chest x-ray was unremarkable. EKG showed bradycardic a flutter. 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, nasal cavity and accessory sinuses BPH (benign prostatic hyperplasia) Cardiac murmur, unspecified Cellulitis of right lower limb Cervical disc disease CPAP (continuous positive airway pressure) dependence Deep venous thrombosis Dyspnea on minimal exertion Essential (primary) hypertension Former smoker FTT (failure to thrive) in adult GERD (gastroesophageal reflux disease) Hyperglycemia Hyperlipidemia Leg pain Lymphedema New onset atrial fibrillation (03/24/20) 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 Obesity ANDREE (obstructive sleep apnea) Pain in right lower leg Pain of left great toe Pain of left lower extremity due to injury Skin ulcer of left great toe with fat layer exposed Sleep apnea Toe ulcer Traumatic hematoma of left lower leg Venous insufficiency Home Medications atenolol 50 mg tablet 50 mg PO DAILY BLOOD PRESSURE 08/23/14 [History Last Taken 01/28/23] lisinopril 20 mg tablet 20 mg PO QHS BLOOD PRESSURE 12/16/21 [History Last Taken 01/27/23] rivaroxaban 20 mg tablet (Xarelto) 20 mg PO DINNER BLOOD THINNER #0 tabs 12/28/21 [Rx Last Taken 01/27/23] atorvastatin 40 mg tablet 40 mg PO QHS CHOLESTEROL #0 tabs 01/25/23 [Rx Last Taken 01/27/23] potassium chloride 20 mEq tablet,extended release(part/cryst) 20 meq PO BID SUPPLEMENT 01/28/23 [History Last Taken 01/28/23] Allergy/AdvReac Type Severity Reaction Status Date / Time apixaban [From Eliquis] AdvReac Intermediate Wet the Verified 01/18/23 14:28 bed: found out later had UTI ibuprofen [From Motrin] AdvReac Nausea Verified 01/18/23 14:28 Family History Mother CAD (coronary artery disease) Hypertension History of cardiac radiofrequency ablation Sister Hypertension Other Arthritis Surgical History H/O cervical spine surgery History of bursectomy History of carpal tunnel release History of carpal tunnel surgery History of coronary artery stent placement (11/29/10) History of coronary artery stent placement History of fusion of cervical spine History of herniorrhaphy History of removal of cyst History of transurethral resection of prostate Social History (Updated 01/28/23 @ 16:[address] Maria Esther Smith, DO) household members: none Smoking Status: Former smoker alcohol intake: current details: occasional substance use type: does not use ROS Constitutional Constitutional: Denies anorexia, change in weight, chills, fatigue, fever(s), malaise, night sweats, weakness or other Eyes Eyes: Denies blurry vision, change in eye color, change in vision, discharge from eye(s), double vision, erythema, eye pain, loss of vision or other ENT HEENT: Reports abnormal hearing and hearing loss; Denies dysphagia, ear pain, epistaxis, headache(s), nasal congestion, nasal discharge, post nasal drip, sinus pressure, sore throat or other Cardiovascular Cardiovascular: Reports other Details: Slow heart rate ; Denies chest pain, claudication, dyspnea on exertion, edema, lightheadedness, orthopnea, palpitations, paroxysmal nocturnal dyspnea, rapid heart rate or syncope Respiratory/Chest Respiratory/Chest: Reports shortness of breath at rest; Denies cough, dyspnea, excessive phlegm production, hemoptysis, productive cough, shortness of breath with exertion, wheezing or other Gastrointestinal Gastrointestinal: Denies abdominal pain, coffee ground emesis, constipation, diarrhea, dyspepsia, hematemesis, hematochezia, loose stools, melena, nausea, vomiting or other Genitourinary Genitourinary: Denies burning urination, difficulty urinating, dysuria, hematuria, nocturia, urinary frequency, urinary hesitancy, urinary incontinence, urinary urgency or other Musculoskeletal Musculoskeletal: Reports back pain, joint pain and joint stiffness; Denies arthralgias, joint swelling, myalgias, neck pain or other Neurologic Neurologic: Reports abnormal gait, abnormal speech, focal weakness and numbness; Denies confusion, disequilibrium, dizziness, headache(s), paresthesias, seizure-like activity, seizures, syncope, tingling, tremor(s) or other Psychiatric Psychiatric: Denies anxiety, depression, homicidal ideation, suicidal ideation or other Endocrine Endocrinology: Denies change in body appearance, cold intolerance, excessive sweating, heat intolerance, polydipsia, polyuria or other Hematologic/Lymphatic Hematologic/Lymphatic: Denies anemia, easy bleeding, easy bruising, lymphadenopathy or other Allergic/Immunologic Allergic/Immunologic: Denies rhinitis, hives, eczemia, asthma or other Vital Signs Vital Signs Vital Signs: 01/28/23 13:53 01/28/23 13:54 01/28/23 14:24 Temperature 97.1 F L Temperature Source Temporal Pulse Rate 42 L 38 L Respiratory Rate 16 14 Blood Pressure 168/106 H 185/104 H Blood Pressure Mean 126 131 Pulse Ox 97 95 Oxygen Delivery Method Room Air Room Air Room Air Weight Weight: 113.5 kg Body Mass Index (BMI) 40.4 Physical Exam Const alert, oriented x3 and well nourished; Negative for no apparent distress, average body habitus or healthy appearing Constitutional Narrative: Obese, older, white male, sitting up in bed, speech is garbled, son is at bedside, patient appears comfortable, breathing pattern is intermittently abnormal as heart rate becomes slower but normalizes once heart rate comes up into the 50s, up appears nontoxic, appears chronically ill General Appearance: cooperative HEENT normocephalic, head/scalp atraumatic and moist oral mucous membranes; Negative for hearing grossly normal bilaterally HEENT Narrative: Seborrhea on face, Mallampati is 3, no thrush, mild hearing loss Eyes PERRL and EOMs intact bilaterally Eyes Narrative: No scleral icterus Neck no lymphadenopathy and supple Neck Narrative: Trachea midline, no thyroid enlargement, neck is short and thick Resp normal respiratory effort, no retractions and no use of accessory muscles Auscultation: Negative for rales, rhonchi or wheezes Cardio S1 normal heart sound, S2 normal heart sound, no murmurs, no rub, no gallops and no clicks; Negative for regular rate or regular rhythm Cardio Narrative: Regular regular rhythm with significant bradycardia GI normal to inspection, nondistended, normoactive bowel sounds, soft to palpation and non-tender GI Narrative: Large protuberant abdomen, umbilical hernia noted Extremity no clubbing, cyanosis or edema Neuro oriented x3 and CN's II-XII intact bilaterally Neuro Narrative: Significant right-sided dense hemiparesis with mild sensory deficits on the right, speech is garbled but intelligible Speech: Negative for speech normal Motor Exam: Negative for strength 5/5 throughout Psych Psych Narrative: Affect is flat however eye contact is good and mood appears stable Results Lab / Micro Data Attestation: I reviewed the patient's lab results. 01/28/23 14:10 01/28/23 14:10 Labs: Laboratory Results - last 24 hr 01/28/23 14:10: WBC 8.5, RBC 4.92, Hgb 15.3, Hct 45.6, MCV 92.7, MCH 31.1, MCHC 33.6, RDW Std Deviation 51.4 H, RDW Coeff of Naz 15.2 H, Plt Count 188, MPV 9.9, Immature Gran % (Auto) 0.200, Neut % (Auto) 73.1 H, Lymph % (Auto) 13.5 L, Emanuel % (Auto) 7.5, Eos % (Auto) 5.3 H, Baso % (Auto) 0.4, Absolute Neuts (auto) 6.2, Absolute Lymphs (auto) 1.15, Nucleated RBC % 0, PT 19.8 H, INR 1.7, APTT 46.6 H, Sodium 138, Potassium 3.7, Chloride 105, Carbon Dioxide 29.0, Anion Gap 4 L, BUN 17, Creatinine 0.91, Estim Creat Clear Calc 65.24, Est GFR (MDRD) Af Amer 105, Est GFR (MDRD) Non-Af 87, BUN/Creatinine Ratio 18.7, Glucose 96, Calcium 8.0 L, Troponin I High Sens [address] 01/28/23 13:54 IMPRESSION: There are no acute findings. Chronic involutional changes of the brain. Critical finding called and case discussed. 01/28/2023 2:14 PM Naty Snowden : The above Results were Read Back by Guicho Brown MD to Eliezer Alfonso MD, and understanding confirmed on 01/28/2023 14:14:21 (ET). Electronically Signed: Guicho Brown MD at 14:15 EDT , ADDENDUM: 01/28/23 1422 IMPRESSION: There are no acute findings. Chronic involutional changes of the brain. Critical finding called and case discussed. 01/28/2023 2:14 PM Naty Santos. : The above Results were Read Back by Guicho Brown MD to Eliezer Alfonso MD, and understanding confirmed on 01/28/2023 14:14:21 (ET). Electronically Signed: Guicho Brown MD at 14:15 EDT , Head/Neck CTA 01/28/23 13:55 IMPRESSION: 1. 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 2. There is mild atherosclerotic plaque formation of the origin of the right internal carotid artery with less than 50% cross sectional diameter stenosis. ALL ABOVE CRITERIA BY NASCET. 3. There is calcified plaque formation of the right cavernous carotid artery, with a mild stenosis (less than 50%). ALL ABOVE CRITERIA BY NASCET. 4. There is calcified plaque formation of the left cavernous carotid artery, with a mild stenosis (less than 50%). ALL ABOVE CRITERIA BY NASCET. Electronically Signed: Guicho Brown MD at 14:31 EDT , ADDENDUM: 01/28/23 1439 IMPRESSION: 1. 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 2. There is mild atherosclerotic plaque formation of the origin of the right internal carotid artery with less than 50% cross sectional diameter stenosis. ALL ABOVE CRITERIA BY NASCET. 3. There is calcified plaque formation of the right cavernous carotid artery, with a mild stenosis (less than 50%). ALL ABOVE CRITERIA BY NASCET. 4. There is calcified plaque formation of the left cavernous carotid artery, with a mild stenosis (less than 50%). ALL ABOVE CRITERIA BY NASCET. N.B. : The above Results were Read Back by Guicho Brown MD to Eliezre Alfonso MD, and understanding confirmed on 01/28/2023 14:32:25 (ET). Electronically Signed: Guicho Brown MD at 14:31 EDT , Chest X-Ray 01/28/23 14:55 IMPRESSION: There are no acute findings. Electronically Signed: Guicho Brown MD at 15:12 EDT , Assessment & Plan Assessment/Plan (1) Dysarthria: (2) Right hemiplegia: (3) CVA (cerebral vascular accident): QUALIFIERS: CVA mechanism: unspecified Qualified Code(s): I63.9 - Cerebral infarction, unspecified (4) Bradycardia: PLAN: Plan Worsening dysarthria/right hemiplegia -Recent diagnosis of stroke in the left em radiata -Continue aspirin -Continue Xarelto -Continue atorvastatin -Continue lisinopril but hold atenolol with bradycardia -Check MRI but will do with and without contrast -Consider SOC neurology consultation depending on findings -This may all be related to cardiac output with bradycardia -We will allow for some hypertension for now and only continue lisinopril with as needed to keep systolic blood pressure within parameters for stroke -Stroke order set and NIH is utilized A flutter with bradycardia with history of atrial fibrillation -Concern for sick sinus syndrome/tachybradycardia syndrome -Check check TSH -Hold atenolol -We will monitor in the ICU with patient being symptomatic with worsening speech and intermittent abnormal breathing pattern especially noted with profound bradycardia in the 30s -If bradycardic events are persistent will consider dopamine -Recent echocardiogram was performed with stroke work-up and demonstrated an EF of 65% and no diastolic dysfunction with a negative bubble study and no valvular abnormalities -May require pacemaker depending on monitoring off beta-jess while hospitalized -Cardiology consultation -Continue Xarelto for now but may need to hold depending on need for pacemaker Carotid artery stenosis -Minimal and less than 50% -Continue ongoing medical management and aggressive treatment -Ongoing outpatient follow-up Right-sided hemiparesis secondary to acute stroke -Continue PT/OT -Will require transition probably back to TCU once medically stabilized CAD/HTN/HPL -Continue aspirin -Continue atorvastatin -Continue lisinopril -As needed blood pressure medication for systolics per stroke parameters -Hold atenolol History of GERD -Not currently on any medication BPH -Currently not on any medication -Watch for urinary retention History of ANDREE -Not currently compliant with CPAP -Monitor nocturnal oxygenation status Obesity -BMI 39.9 -Recommend weight loss -Complicates treatment, prognosis, outcomes History of DVT -Fully anticoagulated with Xarelto CODE STATUS -full code is verified with patient and family on admission Charges/Coding Visit Charges Inpatient E&M: 47816 Init Hosp L3
[2023-01-28] MEDS: Rivaroxaban 20 MG Tablet PO (18:36)
[2023-01-28] MEDS: 0.9% Saline Lock 10 ML Syringe IV (18:44)
[2023-01-28] MEDS: Atorvastatin Calcium 40 MG Tablet PO (22:04)
[2023-01-28] MEDS: Lisinopril 20 MG Tablet PO (22:04)
[2023-01-28] MEDS: Acetaminophen 325 MG Tablet 650 MG PO (23:54)
[2023-01-29] VITALS (19 sets, daily range): BP systolic 130–187; BP diastolic 77–112; PULSE 45–65; RESP 13–22; TEMP 35.8–36.8; O2SAT 93–98; BMI 39.8; BMI 39.3
[2023-01-29 05:42] LABS: Absolute Lymphocyte Count 1.15 X10^3/uL (0.83-4.51); Absolute Neutrophil Count 5.9 X10^3/uL (2.0-7.7); Basophil# 0.03 X10^3/uL; Basophil% 0.4 % (0-1); Hematocrit 47.3 % (40-54); Hemoglobin 15.4 g/dL (13.0-16.5); Lymphocyte # 1.15 X10^3/ul (0.83-4.51); Lymphocyte % 14.3 % (19-41); Mean Corp Hgb Conc 32.6 g/dL (32-36); Mean Corpuscular Hgb 30.3 pg (27.0-32.0); Mean Corpuscular Volume 92.9 fL (80-94); Mean Platelet Vol. 9.8 fl (6.2-12.0); Monocyte# 0.57 X10^3/uL; Monocyte% 7.1 % (0-10); NRBC Flagged by Analyzer 0 % (0-5); Neutrophil # 5.87 X10^3/uL (2.7-7.7); Neutrophil % 72.8 % (47-70); Platelet Count 189 K/mm3 (150-450); RBC Distribution Width CV 15.2 % (11.6-14.6); RBC Distribution Width SD 51.5 fl (35.1-43.9); Red Blood Count 5.09 M/mm3 (4.6-6.2); White Blood Count 8.1 K/mm3 (4.4-11.0)
[2023-01-29 06:09] LABS: ALB/GLOB Ratio 0.8 RATIO (0.9-2.4); AST(SGOT) 18 U/L (15-37); Alanine Aminotransfer ALT/SGPT 30 U/L (16-61); Albumin, Serum 3.1 g/dL (3.2-5.0); Alkaline Phosphatase 84 U/L (45-117); Anion Gap 3 (5-15); BUN 16 mg/dL (7-18); BUN/Creat Ratio 18.8 RATIO (10-20); Calcium,Total 8.4 mg/dL (8.5-10.1); Chloride 107 mmol/L (98-107); Cholesterol 71 mg/dL (200); Creatinine, Serum 0.85 mg/dL (0.70-1.30); EST Glomerular Filtration Rate 94 mL/min (>60); Est Glom Filt Rate - Afr Amer 114 mL/min (>60); Estimated Creatinine Clearance 69.85 ml/min; Globulin 3.7 g/dL (2.2-4.2); Glucose 93 mg/dL (74-106); High Density Lipoprotein 29 mg/dL; Magnesium 2.2 mg/dL (1.6-2.6); Potassium 3.8 mmol/L (3.5-5.1); Protein, Total 6.8 g/dL (6.4-8.2); Sodium Level 140 mmol/L (136-145); Thyroid Stim Hormone (TSH) 6.35 uIU/mL (0.358-3.74); Triglycerides 90 mg/dL; Very Low Density Lipoprotein 18 mg/dL (5-40)
--- NOTE | 2023-01-29 07:20 | PCM.PN.HOSP ---
Reason for Visit Reason for Visit: Diagnoses Hemiplegia, unspecified affecting right dominant side (01/28/23) Cerebral infarction, unspecified (01/28/23) Bradycardia, unspecified (01/28/23) Dysarthria and anarthria (01/28/23) Subjective Subjective Patient is a 72-year-old gentleman with recent diagnosis of acute CVA transferred to the transitional care unit readmitted with worsening slurred speech and right-sided weakness Objective Data Objective Data Vital Signs: Vital Signs Temp Pulse Resp BP Pulse Ox O2 Del Method O2 Flow Rate 96.4 F L 52 L 22 H 145/93 H 96 Nasal Cannula 2 01/29/23 05:00 01/29/23 07:00 01/29/23 07:00 01/29/23 07:00 01/29/23 07:00 01/29/23 07:00 01/29/23 07:00 Oxygen Flow Rate (L/min) 2 Oxygen Delivery Method Nasal Cannula Weight: 111 kg Body Mass Index (BMI) 39.3 Intake & Output: Intake and Output for Last 24 Hours 01/27/23 01/28/23 01/29/23 23:59 23:59 23:59 Intake Total 0 / 0 Output Total 100 / 100 450 / 450 Balance -100 / -100 -450 / -450 Lab / Micro Data 01/29/23 05:30 01/29/23 05:30 Labs: Laboratory Results - last 24 hr 01/28/23 14:10: WBC 8.5, RBC 4.92, Hgb 15.3, Hct 45.6, MCV 92.7, MCH 31.1, MCHC 33.6, RDW Std Deviation 51.4 H, RDW Coeff of Naz 15.2 H, Plt Count 188, MPV 9.9, Immature Gran % (Auto) 0.200, Neut % (Auto) 73.1 H, Lymph % (Auto) 13.5 L, [place] % (Auto) 7.5, Eos % (Auto) 5.3 H, Baso % (Auto) 0.4, Absolute Neuts (auto) 6.2, Absolute Lymphs (auto) 1.15, Nucleated RBC % 0, PT 19.8 H, INR 1.7, APTT 46.6 H, Sodium 138, Potassium 3.7, Chloride 105, Carbon Dioxide 29.0, Anion Gap 4 L, BUN 17, Creatinine 0.91, Estim Creat Clear Calc 65.24, Est GFR (MDRD) Af Amer 105, Est GFR (MDRD) Non-Af 87, BUN/Creatinine Ratio 18.7, Glucose 96, Calcium 8.0 L, Troponin I High Sens 20 01/29/23 05:30: WBC 8.1, RBC 5.09, Hgb 15.4, Hct 47.3, MCV 92.9, MCH 30.3, MCHC 32.6, RDW Std Deviation 51.5 H, RDW Coeff of Naz 15.2 H, Plt Count 189, MPV 9.8, Immature Gran % (Auto) 0.400, Neut % (Auto) 72.8 H, Lymph % (Auto) 14.3 L, [place] % (Auto) 7.1, Eos % (Auto) 5.0, Baso % (Auto) 0.4, Absolute Neuts (auto) 5.9, Absolute Lymphs (auto) 1.15, Nucleated RBC % 0, Sodium 140, Potassium 3.8, Chloride 107, Carbon Dioxide 30.0, Anion Gap 3 L, BUN 16, Creatinine 0.85, Estim Creat Clear Calc 69.85, Est GFR (MDRD) Af Amer 114, Est GFR (MDRD) Non-Af 94, BUN/Creatinine Ratio 18.8, Glucose 93, Calcium 8.4 L, Phosphorus 3.0, Magnesium 2.2, Total Bilirubin 1.50 H, AST 18, ALT 30, Alkaline Phosphatase 84, Total Protein 6.8, Albumin 3.1 L, Globulin 3.7, Albumin/Globulin Ratio 0.8 L, Triglycerides 90, Cholesterol 71, LDL Cholesterol 24, VLDL Cholesterol 18, HDL Cholesterol 29 L, TSH 6.35 H Radiography Diagnostic Testing: Radiology Impression Brain CT 01/28/23 13:54 IMPRESSION: There are no acute findings. Chronic involutional changes of the brain. Critical finding called and case discussed. 01/28/2023 2:14 PM Naty Snowden : The above Results were Read Back by Guicho Brown MD to Eliezer Alfonso MD, and understanding confirmed on 01/28/2023 14:14:21 (ET). Electronically Signed: Guicho Brown MD at 14:15 EDT , ADDENDUM: 01/28/23 1422 IMPRESSION: There are no acute findings. Chronic involutional changes of the brain. Critical finding called and case discussed. 01/28/2023 2:14 PM Naty Snowden : The above Results were Read Back by Guicho Brown MD to Eliezer Alfonso MD, and understanding confirmed on 01/28/2023 14:14:21 (ET). Electronically Signed: Guicho Brown MD at 14:15 EDT , Head/Neck CTA 01/28/23 13:55 IMPRESSION: 1. 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 2. There is mild atherosclerotic plaque formation of the origin of the right internal carotid artery with less than 50% cross sectional diameter stenosis. ALL ABOVE CRITERIA BY NASCET. 3. There is calcified plaque formation of the right cavernous carotid artery, with a mild stenosis (less than 50%). ALL ABOVE CRITERIA BY NASCET. 4. There is calcified plaque formation of the left cavernous carotid artery, with a mild stenosis (less than 50%). ALL ABOVE CRITERIA BY NASCET. Electronically Signed: Guicho Brown MD at 14:31 EDT , ADDENDUM: 01/28/23 1439 IMPRESSION: 1. 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 2. There is mild atherosclerotic plaque formation of the origin of the right internal carotid artery with less than 50% cross sectional diameter stenosis. ALL ABOVE CRITERIA BY NASCET. 3. There is calcified plaque formation of the right cavernous carotid artery, with a mild stenosis (less than 50%). ALL ABOVE CRITERIA BY NASCET. 4. There is calcified plaque formation of the left cavernous carotid artery, with a mild stenosis (less than 50%). ALL ABOVE CRITERIA BY NASCET. N.B. : The above Results were Read Back by Guicho Brown MD to Eliezer Alfonso MD, and understanding confirmed on 01/28/2023 14:32:25 (ET). Electronically Signed: Guicho Brown MD at 14:31 EDT , Chest X-Ray 01/28/23 14:55 IMPRESSION: There are no acute findings. Electronically Signed: Guicho Brown MD at 15:12 EDT , Physical Exam Narrative GENERAL: cooperative HEENT: Atraumatic; normocephalic EYES; Anicteric, Normal Conjunctiva NECK; supple, normal thyroid, RESPIRATORY: Diminished to auscultation CARDIOVASCULAR: Regular S1 S2, GI: soft, normoactive bowel sounds, : No Renal angle tenderness; EXTREMITIES: No edema, no clubbing, MUSCULOSKELETAL: no muscle wasting NEURO: Right-sided hemiplegia SKIN: No Rash PSYCH; Flat affect Assessment & Plan Assessment/Plan (1) Dysarthria: (2) Right hemiplegia: (3) CVA (cerebral vascular accident): QUALIFIERS: CVA mechanism: unspecified Qualified Code(s): I63.9 - Cerebral infarction, unspecified (4) Bradycardia: PLAN: Plan Patient is a 72-year-old gentleman with recent diagnosis of acute CVA transferred to the transitional care unit readmitted with worsening slurred speech and right-sided weakness 1. Acute CVA MRI during recent admission demonstrated Acute infarct involving the left em radiata. Patient was stabilized and discharged to the transitional care unit readmitted with worsening slurred speech and right-sided weakness. Please on a monitored bed consult placed to telemetry neurology with plans for patient to undergo further evaluation with repeat MRI 2.. Physical deconditioning - Requested for PT OT eval and older adult social work specialist to assist with discharge planning 3.. Right shoulder pain ? Possibly related to rotator cuff tendinopathy patient reports not being able to move the right upper extremity ordered MRI of the brain to rule out stroke as well as MRI of the shoulder to evaluate the rotator cuff tendinopathy consult placed orthopedic surgery. PT OT as tolerated 4. Chronic A-fib ventricular response ? Presented with slow ventricular response. Placed on telemetry. On systemic anticoagulation with Xarelto continue 5. Class II obesity with BMI of 39.2 ? Complicating care, weight loss advised 6. Hypertension - Blood pressure controlled, home medications continued with dose adjustment as needed 7. Dyslipidemia ? Patient is on rosuvastatin did contain 8. Did obstructive sleep apnea ? Complicating care patient to undergo sleep study when medically stable 9. History of previous DVT ? Patient is on Xarelto 10. DVT prophylaxis ? Patient already on systemic anticoagulation with Xarelto Time spent in the patient's overall evaluation,decision-making process, review of diagnostic data, adjustment of management, discussion with other providers, nursing nursing and ancillary staff involved in patient's care documentation,55 minutes Charges/Coding Visit Charges Inpatient E&M: [id number] [facility] L3
--- NOTE | 2023-01-29 13:37 | CON.PCM.CA_ITS ---
Assessment & Plan Assessment/Plan (1) Atrial fibrillation: PLAN: He does have atrial fibrillation with a slow ventricular response rate. My recommendation at this time will be to hold the beta-jess for a few days and see where he settles before deciding whether to restart it or use another medication for rate control. His ejection fraction was noted to be normal. * I do not think at this time that he is a candidate for an implantable pacemaker. (2) Acute CVA (cerebrovascular accident): PLAN: He is status post cerebrovascular accident. We will continue to follow him as per neurology (3) Bradycardia: PLAN: He is bradycardic and on 50 mg of atenolol. I would recommend that we discontinue this for now and when it needs to be restarted to start him on 25 of metoprolol and then to monitor him. (4) Hypertension: PLAN: His blood pressure is uncontrolled and passive hypertension is required at this time. We will start him on a calcium channel jess. Thank you for allowing me to participate in the care of your patient. Please don't hesitate to call if any issues arise. HPI Consult Data Date of Consult: 01/29/23 HPI Narrative HPI Narrative: TURNER YAN, is a 72 M who presented to the emergency department at [facility] on 01/28/2023 after his stroke team was called in the TCU. Patient had a recent admission here from 01/18/2023 through 01/25/2023 at which time he was diagnosed with an acute stroke. He was found to have significant right-sided weakness along with some intermittent speech abnormalities and his MRI at that time showed an acute infarct of the left coron a radiata with severe microvascular disease. He had fairly dense right-sided weakness at that time but was able to develop some hand movement however had a very weak grasp and his right leg was significantly weak. He was seen by neurology during the hospitalization they recommended continuing with his rivaroxaban and adding aspirin. It was recommended he be discharged to acute rehab however insurance company declined and a peer to peer was performed but the physician at the insurance company declined the patient based on [facility] guidelines. He was discharged to the transitional care unit for ongoing therapy services and had been doing quite well with his therapy however today he was noted to have some worsening right-sided weakness and worsening speech abnormalities. Upon arrival to the emergency department he was found to have significant bradycardia. He had known history of atrial fibrillation and has been on atenolol for him p.o. and Xarelto for this. Heart rates were anywhere from 30-50. Cardiology was called for further evaluation and management. He was noted to be in an atrial fibrillation flutter with a left bundle steph block but with no pauses greater than 3 seconds. He was admitted to the intensive care unit. 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, nasal cavity and accessory sinuses BPH (benign prostatic hyperplasia) Cardiac murmur, unspecified Cellulitis of right lower limb Cervical disc disease CPAP (continuous positive airway pressure) dependence Deep venous thrombosis Dyspnea on minimal exertion Essential (primary) hypertension Former smoker FTT (failure to thrive) in adult GERD (gastroesophageal reflux disease) Hyperglycemia Hyperlipidemia Leg pain Lymphedema New onset atrial fibrillation (03/24/20) 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 Obesity ANDREE (obstructive sleep apnea) Pain in right lower leg Pain of left great toe Pain of left lower extremity due to injury Skin ulcer of left great toe with fat layer exposed Sleep apnea Toe ulcer Traumatic hematoma of left lower leg Venous insufficiency Home Medications atenolol 50 mg tablet 50 mg PO DAILY BLOOD PRESSURE 08/23/14 [History Last Taken 01/28/23] lisinopril 20 mg tablet 20 mg PO QHS BLOOD PRESSURE 12/16/21 [History Last Taken 01/27/23] rivaroxaban 20 mg tablet (Xarelto) 20 mg PO DINNER BLOOD THINNER #0 tabs 12/28/21 [Rx Last Taken 01/27/23] atorvastatin 40 mg tablet 40 mg PO QHS CHOLESTEROL #0 tabs 01/25/23 [Rx Last Taken 01/27/23] potassium chloride 20 mEq tablet,extended release(part/cryst) 20 meq PO BID SUPPLEMENT 01/28/23 [History Last Taken 01/28/23] Allergy/AdvReac Type Severity Reaction Status Date / Time apixaban [From Eliquis] AdvReac Intermediate Wet the Verified 01/18/23 14:28 bed: found out later had UTI ibuprofen [From Motrin] AdvReac Nausea Verified 01/18/23 14:28 Family History Mother CAD (coronary artery disease) Hypertension History of cardiac radiofrequency ablation Sister Hypertension Other Arthritis Surgical History H/O cervical spine surgery History of bursectomy History of carpal tunnel release History of carpal tunnel surgery History of coronary artery stent placement (11/29/10) History of coronary artery stent placement History of fusion of cervical spine History of herniorrhaphy History of removal of cyst History of transurethral resection of prostate Social History household members: none Smoking Status: Former smoker alcohol intake: current details: occasional substance use type: does not use ROS Constitutional Constitutional: Denies fever(s) or weight loss Eyes Eyes: Reports systems reviewed and no addt'l complaints, except as documented ENT HEENT: Reports systems reviewed and no addt'l complaints, except as documented Cardiovascular Cardiovascular: Denies chest pain at rest, chest pain with activity, dyspnea at rest, dyspnea on exertion, edema, palpitations or paroxysmal nocturnal dyspnea Respiratory/Chest Respiratory/Chest: Denies dyspnea on exertion, productive cough, shortness of breath at rest or shortness of breath with exertion Gastrointestinal Gastrointestinal: Denies change in bowel habits, nausea, vomiting or weight changes Genitourinary Genitourinary: Denies difficulty urinating Musculoskeletal Musculoskeletal: Denies joint stiffness or muscle weakness Integumentary Integumentary: Denies lesions Neurologic Neurologic: Denies dizziness or syncope Psychiatric Psychiatric: Denies anxiety Endocrine Endocrinology: Denies excessive sweating or fatigue Hematologic/Lymphatic Hematologic/Lymphatic: Denies anemia Allergic/Immunologic Allergic/Immunologic: Denies seasonal rhinorrhea Physical Exam Const alert, oriented x3 and no apparent distress General Appearance: cooperative HEENT hearing grossly normal bilaterally Head and Scalp: atraumatic Eyes EOMs intact bilaterally Neck General: normal visual inspection Chest inspection of chest normal and palpation of chest normal Resp normal respiratory effort Auscultation: clear to auscultation bilaterally Cardio S1 normal heart sound and S2 normal heart sound Jugular Venous Distention: JVD Rhythm: abnormal rhythm irregularly irregular GI normal to inspection, nondistended, normoactive bowel sounds Extremity normal capillary refill and no pedal edema Peripheral Pulses: Yes pulses 2+ throughout and femoral pulses present Skin no rashes or lesions noted Neuro oriented x3 and CN's II-XII intact bilaterally Psych Appearance: grossly normal and appropriate Risk Stratification Risk Stratification Applicable: No Objective Data Vital Signs: Vital Signs Temp Pulse Resp BP Pulse Ox O2 Del Method O2 Flow Rate 97.0 F L 55 L 18 180/105 H 93 Room Air 2 01/29/23 12:00 01/29/23 12:00 01/29/23 12:00 01/29/23 12:00 01/29/23 13:16 01/29/23 13:16 01/29/23 10:07 Oxygen Flow Rate (L/min) 2 Oxygen Delivery Method Room Air Weight: 244 lb 11.41 oz Body Mass Index (BMI) 39.3 Intake & Output: Intake and Output for Last 24 Hours 01/27/23 01/28/23 01/29/23 23:59 23:59 23:59 Intake Total 0 / 0 0 / 0 Output Total 100 / 100 650 / 650 Balance -100 / -100 -650 / -650 Lab / Micro Data 01/29/23 05:30 01/29/23 05:30 Labs: Laboratory Results - last 24 hr 01/28/23 14:10: WBC 8.5, RBC 4.92, Hgb 15.3, Hct 45.6, MCV 92.7, MCH 31.1, MCHC 33.6, RDW Std Deviation 51.4 H, RDW Coeff of [place] 15.2 H, Plt Count 188, MPV 9.9, Immature Gran % (Auto) 0.200, Neut % (Auto) 73.1 H, Lymph % (Auto) 13.5 L, [place] % (Auto) 7.5, Eos % (Auto) 5.3 H, Baso % (Auto) 0.4, Absolute Neuts (auto) 6.2, Absolute Lymphs (auto) 1.15, Nucleated RBC % 0, PT 19.8 H, INR 1.7, APTT 46.6 H, Sodium 138, Potassium 3.7, Chloride 105, Carbon Dioxide 29.0, Anion Gap 4 L, BUN 17, Creatinine 0.91, Estim Creat Clear Calc 65.24, Est GFR (MDRD) Af Amer 105, Est GFR (MDRD) Non-Af 87, BUN/Creatinine Ratio 18.7, Glucose 96, Calcium 8.0 L, Troponin I High Sens 20 01/29/23 05:30: WBC 8.1, RBC 5.09, Hgb 15.4, Hct 47.3, MCV 92.9, MCH 30.3, MCHC 32.6, RDW Std Deviation 51.5 H, RDW Coeff of Naz 15.2 H, Plt Count 189, MPV 9.8, Immature Gran % (Auto) 0.400, Neut % (Auto) 72.8 H, Lymph % (Auto) 14.3 L, [place] % (Auto) 7.1, Eos % (Auto) 5.0, Baso % (Auto) 0.4, Absolute Neuts (auto) 5.9, Absolute Lymphs (auto) 1.15, Nucleated RBC % 0, Sodium 140, Potassium 3.8, Chloride 107, Carbon Dioxide 30.0, Anion Gap 3 L, BUN 16, Creatinine 0.85, Estim Creat Clear Calc 69.85, Est GFR (MDRD) Af Amer 114, Est GFR (MDRD) Non-Af 94, BUN/Creatinine Ratio 18.8, Glucose 93, Calcium 8.4 L, Phosphorus 3.0, Magnesium 2.2, Total Bilirubin 1.50 H, AST 18, ALT 30, Alkaline Phosphatase 84, Total Protein 6.8, Albumin 3.1 L, Globulin 3.7, Albumin/Globulin Ratio 0.8 L, Triglycerides 90, Cholesterol 71, LDL Cholesterol 24, VLDL Cholesterol 18, HDL Cholesterol 29 L, TSH 6.35 H Cardiology Labs/Tests 01/28/23 14:10: WBC 8.5, RBC 4.92, Hgb 15.3, Hct 45.6, MCV 92.7, MCH 31.1, MCHC 33.6, Plt Count 188, MPV 9.9, Immature Gran % (Auto) 0.200, Neut % (Auto) 73.1 H , Lymph % (Auto) 13.5 L, [place] % (Auto) 7.5, Eos % (Auto) 5.3 H, Baso % (Auto) 0.4, Absolute Neuts (auto) 6.2, Nucleated RBC % 0, PT 19.8 H, INR 1.7, APTT 46.6 H, Sodium 138, Potassium 3.7, Chloride 105, Carbon Dioxide 29.0, Anion Gap 4 L, BUN 17, Creatinine 0.91, Est GFR (MDRD) Af Amer 105, Est GFR (MDRD) Non-Af 87, BUN/Creatinine Ratio 18.7, Glucose 96, Calcium 8.0 L 01/29/23 05:30: WBC 8.1, RBC 5.09, Hgb 15.4, Hct 47.3, MCV 92.9, MCH 30.3, MCHC 32.6, Plt Count 189, MPV 9.8, Immature Gran % (Auto) 0.400, Neut % (Auto) 72.8 H , Lymph % (Auto) 14.3 L, [place] % (Auto) 7.1, Eos % (Auto) 5.0, Baso % (Auto) 0.4, Absolute Neuts (auto) 5.9, Nucleated RBC % 0, Sodium 140, Potassium 3.8, Chloride 107, Carbon Dioxide 30.0, Anion Gap 3 L, BUN 16, Creatinine 0.85, Est GFR (MDRD) Af Amer 114, Est GFR (MDRD) Non-Af 94, BUN/Creatinine Ratio 18.8, Glucose 93, Calcium 8.4 L, Phosphorus 3.0, Magnesium 2.2, Total Bilirubin 1.50 H , Triglycerides 90, Cholesterol 71, LDL Cholesterol 24, VLDL Cholesterol 18, HDL Cholesterol 29 L Rhythm: EKG: ECHO: Stress Test: Cardiac Cath: PCI: CT Surgery: Holter monitor: EPS: PPM: CXR: Chest CT Scan: Radiography Diagnostic Testing: Radiology Impression Brain CT 01/28/23 13:54 IMPRESSION: There are no acute findings. Chronic involutional changes of the brain. Critical finding called and case discussed. 01/28/2023 2:14 PM Naty Snowden : The above Results were Read Back by Guicho Brown MD to Eliezer Alfonso MD, and understanding confirmed on 01/28/2023 14:14:21 (ET). Electronically Signed: Guicho Brown MD at 14:15 EDT , ADDENDUM: 01/28/23 1422 IMPRESSION: There are no acute findings. Chronic involutional changes of the brain. Critical finding called and case discussed. 01/28/2023 2:14 PM Naty Santos. : The above Results were Read Back by Guicho Brown MD to Eliezer Alfonso MD, and understanding confirmed on 01/28/2023 14:14:21 (ET). Electronically Signed: Guicho Brown MD at 14:15 EDT , Head/Neck CTA 01/28/23 13:55 IMPRESSION: 1. 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 2. There is mild atherosclerotic plaque formation of the origin of the right internal carotid artery with less than 50% cross sectional diameter stenosis. ALL ABOVE CRITERIA BY NASCET. 3. There is calcified plaque formation of the right cavernous carotid artery, with a mild stenosis (less than 50%). ALL ABOVE CRITERIA BY NASCET. 4. There is calcified plaque formation of the left cavernous carotid artery, with a mild stenosis (less than 50%). ALL ABOVE CRITERIA BY NASCET. Electronically Signed: Guicho Brown MD at 14:31 EDT , ADDENDUM: 01/28/23 1439 IMPRESSION: 1. 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 2. There is mild atherosclerotic plaque formation of the origin of the right internal carotid artery with less than 50% cross sectional diameter stenosis. ALL ABOVE CRITERIA BY NASCET. 3. There is calcified plaque formation of the right cavernous carotid artery, with a mild stenosis (less than 50%). ALL ABOVE CRITERIA BY NASCET. 4. There is calcified plaque formation of the left cavernous carotid artery, with a mild stenosis (less than 50%). ALL ABOVE CRITERIA BY NASCET. N.B. : The above Results were Read Back by Guicho Brown MD to Eliezer Alfonso MD, and understanding confirmed on 01/28/2023 14:32:25 (ET). Electronically Signed: Guicho Brown MD at 14:31 EDT , Chest X-Ray 01/28/23 14:55 IMPRESSION: There are no acute findings. Electronically Signed: Guicho Brown MD at 15:12 EDT , Brain MRI 01/28/23 15:32 IMPRESSION: 1. Subacute ischemic infarct in the left posterior periventricular white matter, increasingly visible on the T2 FLAIR sequence when compared to 01/19/2023. 2. Multiple chronic periventricular white matter ischemic changes in both cerebral hemispheres. 3. No abnormally enhancing lesions intra-axially and extra-axially. 4. No significant interval change when compared to 01/19/2023. Electronically Signed: Paulino Lenz MD at 11:10 EDT ,
--- NOTE | 2023-01-29 14:18 | CHAPLAIN ---
Type of Pastoral Visit ___ Initial Visit _x__ Follow-up Visit ___ On-call Visit ___ General Patient Visit ___ Spiritual Assessment ___ Family Conference ___ Bereavement ___ Rapid Response ___ Code Blue ___ Other (describe below) Pastoral Care Referral From _x__ Patient ___ Family ___ Nurse ___ Physician ___ Grain Scooper ___ Hand Rounder ___ Other (describe below) Sacrament/Intervention _x__ Active listening ___ Anointing ___ Rastafari ___ Bereavement ___ Communion ___ Estefany exploration ___ ___ Life review _x__ Prayer ___ Reconciliation ___ Sacrament of Sick _x__ Supportive presence ___ Wedding ___ Other (describe below) Pastoral Comments this patient has been seen before; new developments have occurred for patient; pt is alert and interacts with senior interior designer; pt states that he can't eat until given a swallow test and so he is anxious for that to happen; pt had a visit from his son's part maker also; pt has no other concerns but to improve health and to eat; pt talks about ideas he has on how to improve his own home with equipment needed;
[2023-01-29] MEDS: Rivaroxaban 20 MG Tablet PO (17:59)
[2023-01-29] MEDS: Potassium Chloride Oral Tablet 20 MEQ PO (17:59)
[2023-01-29] MEDS: Aspirin 81 MG TAB.CHEW PO (18:02)
[2023-01-29] MEDS: Atorvastatin Calcium 40 MG Tablet PO (22:12)
[2023-01-29] MEDS: Lisinopril 20 MG Tablet PO (22:12)
[2023-01-29] MEDS: Acetaminophen 325 MG Tablet 650 MG PO (22:14)
[2023-01-30] VITALS (9 sets, daily range): BP systolic 143–184; BP diastolic 84–145; PULSE 49–80; RESP 16–17; TEMP 36–36.4; O2SAT 93–98; BMI 38.5
[2023-01-30 03:22] LABS: Absolute Lymphocyte Count 1.27 X10^3/uL (0.83-4.51); Absolute Neutrophil Count 6.5 X10^3/uL (2.0-7.7); Basophil# 0.04 X10^3/uL; Basophil% 0.5 % (0-1); Eosinophil# 0.42 X10^3/uL; Eosinophils% 4.8 % (0-5); Hematocrit 47.2 % (40-54); Hemoglobin 15.6 g/dL (13.0-16.5); Lymphocyte # 1.27 X10^3/ul (0.83-4.51); Lymphocyte % 14.4 % (19-41); Mean Corp Hgb Conc 33.1 g/dL (32-36); Mean Corpuscular Hgb 30.1 pg (27.0-32.0); Mean Corpuscular Volume 91.1 fL (80-94); Mean Platelet Vol. 9.4 fl (6.2-12.0); Monocyte% 6.8 % (0-10); NRBC Flagged by Analyzer 0 % (0-5); Neutrophil # 6.48 X10^3/uL (2.7-7.7); Neutrophil % 73.2 % (47-70); Platelet Count 179 K/mm3 (150-450); RBC Distribution Width CV 14.8 % (11.6-14.6); RBC Distribution Width SD 49.5 fl (35.1-43.9); Red Blood Count 5.18 M/mm3 (4.6-6.2); White Blood Count 8.8 K/mm3 (4.4-11.0)
[2023-01-30 03:40] LABS: Anion Gap 4 (5-15); BUN 15 mg/dL (7-18); Calcium,Total 8.5 mg/dL (8.5-10.1); Chloride 106 mmol/L (98-107); Creatinine, Serum 0.83 mg/dL (0.70-1.30); EST Glomerular Filtration Rate 96 mL/min (>60); Est Glom Filt Rate - Afr Amer 116 mL/min (>60); Estimated Creatinine Clearance 71.53 ml/min; Glucose 87 mg/dL (74-106); Magnesium 2.3 mg/dL (1.6-2.6); Phosphorus 3.5 mg/dL (2.5-4.9); Potassium 3.8 mmol/L (3.5-5.1); Sodium Level 138 mmol/L (136-145)
[2023-01-30] MEDS: hydrALAZINE 20 MG/ML Vial 5 MG IV (04:13)
--- NOTE | 2023-01-30 07:14 | PCM.PN.HOSP ---
Reason for Visit Reason for Visit: Diagnoses Hemiplegia, unspecified affecting right dominant side (01/28/23) Essential (primary) hypertension (01/28/23) Unspecified atrial fibrillation (01/28/23) Cerebral infarction, unspecified (01/28/23) Bradycardia, unspecified (01/28/23) Dysarthria and anarthria (01/28/23) Subjective Subjective Patient seen, been experiencing episodes of bradycardia. Beta-blockers recommended by cardiology to be held Objective Data Objective Data Vital Signs: Vital Signs Temp Pulse Resp BP Pulse Ox O2 Del Method O2 Flow Rate 97.6 F L 49 L 17 184/145 H 98 Nasal Cannula 2 01/30/23 04:00 01/30/23 04:13 01/30/23 04:00 01/30/23 04:13 01/30/23 04:00 01/30/23 04:00 01/30/23 04:00 Oxygen Flow Rate (L/min) 2 Oxygen Delivery Method Nasal Cannula Weight: 108.4 kg Body Mass Index (BMI) 38.5 Intake & Output: Intake and Output for Last 24 Hours 01/28/23 01/29/23 01/30/23 23:59 23:59 23:59 Intake Total 0 / 0 0 / 0 Output Total 100 / 100 1550 / 2150 1300 / 1300 Balance -100 / -100 -1550 / -2150 -1300 / -1300 Lab / Micro Data 01/30/23 03:15 01/30/23 03:15 Labs: Laboratory Results - last 24 hr 01/30/23 03:15: WBC 8.8, RBC 5.18, Hgb 15.6, Hct 47.2, MCV 91.1, MCH 30.1, MCHC 33.1, RDW Std Deviation 49.5 H, RDW Coeff of Naz 14.8 H, Plt Count 179, MPV 9.4, Immature Gran % (Auto) 0.300, Neut % (Auto) 73.2 H, Lymph % (Auto) 14.4 L, [place] % (Auto) 6.8, Eos % (Auto) 4.8, Baso % (Auto) 0.5, Absolute Neuts (auto) 6.5, Absolute Lymphs (auto) 1.27, Nucleated RBC % 0, Sodium 138, Potassium 3.8, Chloride 106, Carbon Dioxide 28.0, Anion Gap 4 L, BUN 15, Creatinine 0.83, Estim Creat Clear Calc 71.53, Est GFR (MDRD) Af Amer 116, Est GFR (MDRD) Non-Af 96, BUN/Creatinine Ratio 18.0, Glucose 87, Calcium 8.5, Phosphorus 3.5, Magnesium 2.3 Radiography Diagnostic Testing: Radiology Impression Brain MRI 01/28/23 15:32 IMPRESSION: 1. Subacute ischemic infarct in the left posterior periventricular white matter, increasingly visible on the T2 FLAIR sequence when compared to 01/19/2023. 2. Multiple chronic periventricular white matter ischemic changes in both cerebral hemispheres. 3. No abnormally enhancing lesions intra-axially and extra-axially. 4. No significant interval change when compared to 01/19/2023. Electronically Signed: Paulino Lenz MD at 11:10 EDT , Physical Exam Narrative GENERAL: cooperative HEENT: Atraumatic; normocephalic EYES; Anicteric, Normal Conjunctiva NECK; supple, normal thyroid, RESPIRATORY: Diminished to auscultation CARDIOVASCULAR: Regular S1 S2, GI: soft, normoactive bowel sounds, : No Renal angle tenderness; EXTREMITIES: No edema, no clubbing, MUSCULOSKELETAL: no muscle wasting NEURO: Right-sided hemiplegia SKIN: No Rash PSYCH; Flat affect Assessment & Plan Assessment/Plan (1) Dysarthria: (2) Right hemiplegia: (3) CVA (cerebral vascular accident): QUALIFIERS: CVA mechanism: unspecified Qualified Code(s): I63.9 - Cerebral infarction, unspecified (4) Bradycardia: PLAN: Plan Patient is a 72-year-old gentleman with recent diagnosis of acute CVA transferred to the transitional care unit readmitted with worsening slurred speech and right-sided weakness 1. Acute CVA MRI during recent admission demonstrated Acute infarct involving the left em radiata. Patient was stabilized and discharged to the transitional care unit readmitted with worsening slurred speech and right-sided weakness. Placed on a monitored bed consult placed to telemetry neurology with plans for patient to undergo further evaluation with repeat MRI ? 01/30/2023; repeat MRI demonstrated Subacute ischemic infarct in the left posterior periventricular white matter, increasingly visible on the T2 FLAIR sequence when compared to 01/19/2023. 2.. Physical deconditioning - Requested for PT OT eval and case management social worker to assist with discharge planning 3.. Right shoulder pain ? Possibly related to rotator cuff tendinopathy patient reports not being able to move the right upper extremity ordered MRI of the brain to rule out stroke as well as MRI of the shoulder to evaluate the rotator cuff tendinopathy consult placed orthopedic surgery. PT OT as tolerated 4. Chronic A-fib ventricular response ? Presented with slow ventricular response. Placed on telemetry. On systemic anticoagulation with Xarelto continue ? 01/30/2023; Case discussed with cardiology beta-blockers held 5. Class II obesity with BMI of 39.2 ? Complicating care, weight loss advised 6. Hypertension - Blood pressure controlled, home medications continued with dose adjustment as needed 7. Dyslipidemia ? Patient is on rosuvastatin did contain 8. Did obstructive sleep apnea ? Complicating care patient to undergo sleep study when medically stable 9. History of previous DVT ? Patient is on Xarelto 10. DVT prophylaxis ? Patient already on systemic anticoagulation with Xarelto Time spent in the patient's overall evaluation,decision-making process, review of diagnostic data, adjustment of management, discussion with other providers, nursing nursing and ancillary staff involved in patient's care documentation, 50 minutes Charges/Coding Visit Charges Inpatient E&M: 53827 Subs Hosp L3
--- NOTE | 2023-01-30 07:38 | PCM.PN.CARD ---
Subjective Subjective Patient seen and evaluated. Doing well. Coherent. No longer pauses seen. Objective Data Vital Signs: Vital Signs Temp Pulse Resp BP Pulse Ox O2 Del Method O2 Flow Rate 97.6 F L 49 L 17 184/145 H 98 Nasal Cannula 2 01/30/23 04:00 01/30/23 04:13 01/30/23 04:00 01/30/23 04:13 01/30/23 04:00 01/30/23 04:00 01/30/23 04:00 Oxygen Flow Rate (L/min) 2 Oxygen Delivery Method Nasal Cannula Weight: 238 lb 15.697 oz Body Mass Index (BMI) 38.5 Intake & Output: Intake and Output for Last 24 Hours 01/28/23 01/29/23 01/30/23 23:59 23:59 23:59 Intake Total 0 / 0 0 / 0 Output Total 100 / 100 1550 / 2150 1300 / 1300 Balance -100 / -100 -1550 / -2150 -1300 / -1300 Lab / Micro Data 01/30/23 03:15 01/30/23 03:15 Labs: Laboratory Results - last 24 hr 01/30/23 03:15: WBC 8.8, RBC 5.18, Hgb 15.6, Hct 47.2, MCV 91.1, MCH 30.1, MCHC 33.1, RDW Std Deviation 49.5 H, RDW Coeff of Naz 14.8 H, Plt Count 179, MPV 9.4, Immature Gran % (Auto) 0.300, Neut % (Auto) 73.2 H, Lymph % (Auto) 14.4 L, [place] % (Auto) 6.8, Eos % (Auto) 4.8, Baso % (Auto) 0.5, Absolute Neuts (auto) 6.5, Absolute Lymphs (auto) 1.27, Nucleated RBC % 0, Sodium 138, Potassium 3.8, Chloride 106, Carbon Dioxide 28.0, Anion Gap 4 L, BUN 15, Creatinine 0.83, Estim Creat Clear Calc 71.53, Est GFR (MDRD) Af Amer 116, Est GFR (MDRD) Non-Af 96, BUN/Creatinine Ratio 18.0, Glucose 87, Calcium 8.5, Phosphorus 3.5, Magnesium 2.3 Cardiology Labs/Tests 01/30/23 03:15: WBC 8.8, RBC 5.18, Hgb 15.6, Hct 47.2, MCV 91.1, MCH 30.1, MCHC 33.1, Plt Count 179, MPV 9.4, Immature Gran % (Auto) 0.300, Neut % (Auto) 73.2 H, Lymph % (Auto) 14.4 L, [place] % (Auto) 6.8, Eos % (Auto) 4.8, Baso % (Auto) 0.5, Absolute Neuts (auto) 6.5, Nucleated RBC % 0, Sodium 138, Potassium 3.8, Chloride 106, Carbon Dioxide 28.0, Anion Gap 4 L, BUN 15, Creatinine 0.83, Est GFR (MDRD) Af Amer 116, Est GFR (MDRD) Non-Af 96, BUN/Creatinine Ratio 18.0, Glucose 87, Calcium 8.5, Phosphorus 3.5, Magnesium 2.3 Rhythm: EKG: ECHO: Stress Test: Cardiac Cath: PCI: CT Surgery: Holter monitor: EPS: PPM: CXR: Chest CT Scan: Radiography Diagnostic Testing: Radiology Impression Brain MRI 01/28/23 15:32 IMPRESSION: 1. Subacute ischemic infarct in the left posterior periventricular white matter, increasingly visible on the T2 FLAIR sequence when compared to 01/19/2023. 2. Multiple chronic periventricular white matter ischemic changes in both cerebral hemispheres. 3. No abnormally enhancing lesions intra-axially and extra-axially. 4. No significant interval change when compared to 01/19/2023. Electronically Signed: Paulino Lenz MD at 11:10 EDT Reading Location ID and State: [facility] / [place] , Service support , Physical Exam Const alert, oriented x3 and no apparent distress General Appearance: cooperative HEENT hearing grossly normal bilaterally Head and Scalp: atraumatic Eyes EOMs intact bilaterally Neck General: normal visual inspection Chest inspection of chest normal and palpation of chest normal Resp normal respiratory effort Auscultation: clear to auscultation bilaterally Cardio S1 normal heart sound and S2 normal heart sound Jugular Venous Distention: JVD Rhythm: abnormal rhythm irregularly irregular GI normal to inspection, nondistended, normoactive bowel sounds Extremity normal capillary refill and no pedal edema Peripheral Pulses: Yes pulses 2+ throughout and femoral pulses present Skin no rashes or lesions noted Neuro oriented x3 and CN's II-XII intact bilaterally Psych Appearance: grossly normal and appropriate Assessment & Plan Assessment/Plan (1) Atrial fibrillation: PLAN: He does have atrial fibrillation with a slow ventricular response rate. My recommendation at this time will be to hold the beta-jess for a few days and see where he settles before deciding whether to restart it or use another medication for rate control. His ejection fraction was noted to be normal. I do not think at this time that he is a candidate for an implantable pacemaker. (2) Acute CVA (cerebrovascular accident): PLAN: He is status post cerebrovascular accident. We will continue to follow him as per neurology (3) Bradycardia: PLAN: His ventricular response rate is remaining stable. I would not make any changes at this time. (4) Hypertension: PLAN: His blood pressure is uncontrolled and passive hypertension is required at this time. We will recommend increasing his lisinopril to 20 mg twice a day. Thank you for allowing me to participate in the care of your patient. Please don't hesitate to call if any issues arise.
[2023-01-30] MEDS: Aspirin 81 MG TAB.CHEW PO (09:17)
[2023-01-30] MEDS: Potassium Chloride Oral Tablet 20 MEQ PO ×2 (09:17→17:08)
[2023-01-30] MEDS: Lisinopril 20 MG Tablet PO ×2 (09:17→20:23)
[2023-01-30] MEDS: amLODIPine 10 MG Tablet PO (09:17)
--- NOTE | 2023-01-30 16:26 | SP.MBSS_ITS ---
Modified Barium Swallow Patient Information Study Date: 01/30/23 Study Time: 13:00 Direct Billable Minutes: 93 Total Minutes procedure & reportin Diagnosis: CVA (I63.9) Referring Physician: Bari Carpio Reason for Referral: Objectively assess swallow function, assess risk for aspiration, and determine recommendations for least restrictive diet textures and compensatory strategies to improve safety of swallow. Medical History: Hossein Roberson is a 72 M with PMH including Benign neoplasm of middle ear, nasal cavity and accessory sinuses, Cervical disc disease, DVT, Dyspnea on minimal exertion, HTN, FTT adult, Former smoker, GERD (SEE EMR for full PMH). He presented to [facility] ED from [facility] TCU due to worsening slurred speech and R sided weakness. Patient had a recent admission here from 01/18/2023 through 2022 at which time he was diagnosed with an acute stroke. He was found to have significant right-sided weakness along with some intermittent speech abnormalities and his MRI at that time showed an acute infarct of the left em radiata with severe microvascular disease. He was referred for ST consult as part of CVA work up and after failing RN dysphagia screen.? BSE revealed mild-moderate oropharyngeal dysphagia and recommended Easy to Chew textures / Thin liquids - liquids by tsp only, supervision at meals. FUEL QUALITY TECH additionally recommend MBSS in upcoming sessions due to coughing with thin liquids. Current Diet Ordered: Regular textures / Thin liquids by tsp Mental Status: WNL Respiratory Status: Oxygenating on 2L/M nasal cannula Penetration-Aspiration Scale Penetration-Aspiration Scale: OBJECTIVE ASSESSMENT OF SWALLOW FUNCTION (QUANTITATIVE ? PER TRIAL): PENETRATION / ASPIRATION SCALE (JOSÉ): 1 = does not enter airway 2 = enters airway/above vocal folds/ejected 3 = enters airway/above vocal folds/not ejected 4 = enters airway/contacts vocal folds/ejected 5 = enters airway/contacts vocal folds/not ejected 6 = enters airway/below vocal folds/ejected 7 = enters airway/below vocal folds/not ejected despite effort 8 = enters airway/below vocal folds/no effort VIDEOFLOROSCOPIC SCALE SCORE (JOSÉ): Grade I = aspiration of material that has penetrated into the laryngeal vestibule, intact cough reflex Grade II = aspiration < 10 % of the bolus, intact cough reflex Grade III = aspiration of < 10 % of the bolus, reduced cough reflex or aspiration of > 10 % of the bolus, intact cough reflex Grade IV = aspiration of > 10 % of the bolus, reduced cough reflex Penetration-Aspiration Scale Score Thin Liquid via teaspoon: Result: 1= does not enter airway Thin Liquid via teaspoon Trial 2: Result: 1= does not enter airway Thin liquid via large single sip from cup: Result: 7= enters airways/below vocal folds/not ejected despite effort (delayed throat clear) Thin liquid via single sip from cup with effortful swallow: Result: 5= enters airways/contacts vocal folds/not ejected (cued cough and re-swallow to effectively clear laryngeal vestibule) Thin liquid via small single sip from cup with right head turn: Result: 7= enters airways/below vocal folds/not ejected despite effort (delayed throat clear) Thin liquid via small single sip from cup: Result: 3= enters airways/above vocal folds/not ejected (cued cough and re-swallow effectively cleared penetrated contrast) Thin liquids via small single sip from cup with effortful swallow: Result: 3= enters airways/above vocal folds/not ejected Arjay thick liquids from cup: Result: 3= enters airways/above vocal folds/not ejected Honey thick liquids via single cup sip: Result: 1= does not enter airway Pudding via teaspoon: Result: 1= does not enter airway 1/2 Cookie: Result: 1= does not enter airway Thin Liquid via single sip from straw: Result: 3= enters airways/above vocal folds/not ejected Thin liquid via small sip by cup with effortful swallow trial 2: Result: 3= enters airways/above vocal folds/not ejected Thin liquids via small single sip by cup with chin tuck: Result: 8= enters airway/below vocal folds/no effort Thin Liquid via teaspoon Trial 3: Result: 2= enter airway/above vocal folds/ejected Oral Phase Labial Seal: No Labial Escape Tongue Control During Bolus Hold: Escape to lateral buccal cavity/floor of mouth Bolus Preparation/Mastication: Timely and efficient chewing and mashing Bolus Transport/Lingual Motion: Slowed tongue motion Oral Residue: Residue collection on oral structures Pharyngeal Phase Initiation of Pharyngeal Swallow: Bolus head in valleculae Soft Palate Elevation: No bolus between soft palate and pharyngeal wall Laryngeal Elevation: Partial superior movement thyroid cart/partial apprx aryt- epig petiole Anterior Hyoid Excursion: Complete anterior movement Epiglottic Movement: Partial inversion (inconsistent) Laryngeal Vestibule Closure at Height of Swallow: Incomplete; narrow column of air/contrast in laryngeal vestibule Pharyngeal Stripping Wave: Present - complete Pharyngoesophageal Segment Opening: Complete distension and complete duration; no obstruction of flow Tongue Base Retraction: Narrow column of contrast between tongue base & post. pharyngeal wall Pharyngeal Residue: Collection of residue within or on pharyngeal structures Diagnosis/Impression Diagnosis: Mild-moderate oropharyngeal phase dysphagia (R13.12) Impression: The oral phase is primarily marked by... -Slowed tongue motion for A-P transport. -Piecemeal deglutition required for large sips, pudding, and cookie. The pharyngeal phase is primarily marked by... -Mild pharyngeal residues, mostly seen in the vallecula, due to decreased tongue base retraction. -Decreased airway closure due to decreased laryngeal elevation and inconsistent epiglottic inversion. -Consistent laryngeal penetration of thin and nectar/mildly thick liquids via cup and straw, which did not fully eject. Trace laryngeal penetration with full ejection for thin liquids by tsp. SILENT aspiration of thin liquids by cup with chin tuck. Aspiration of thin by large cup sip and thin by cup with right head turn. Recommendations Diet: Regular Textures (Easy to Chew textures (IDDSI Level 7)) and Thin Liquids Compensatory Strategies: Small Bites, Liquid by Teaspoon Only, Slow Rate, Sitting upright and Remain sitting upright for 30 minutes after PO intake Supervision: 1:1 Close Supervision (If good adherence to strategies and tolerating diet, consider decreasing supervision needs in upcoming sessions.) Recommend Repeat Modified Barium Swallow: Yes (2-4 weeks after implementation of oropharyngeal exercise program) Need for Skilled Speech Therapy Services: Yes Comment: Will recommend the patient for outpatient dysphagia therapy to address deficits in oropharyngeal swallow function. Will recommend the patient for oropharyngeal strengthening to improve laryngeal elevation, tongue base retraction, and lingual control (CTAR, Uma, Kerri, lingual resistance and coordination exercises). The patient would benefit from thorough education regarding diet recommendations and recommended compensatory strategies. Education Completed: 1. Described result of evaluation. and 2. Pt understands evaluation & agrees with goals and treatment plan. Status Active ST Patient: Active Contact Information [facility] Speech Therapy:: Desiree Blanco M.A. CCC-FUEL QUALITY TECH Speech-Language Pathologist [facility] [address] [address] [email or web address] [phone]
[2023-01-30] MEDS: Rivaroxaban 20 MG Tablet PO (17:07)
[2023-01-30] MEDS: Acetaminophen 325 MG Tablet 650 MG PO (20:22)
[2023-01-30] MEDS: Atorvastatin Calcium 40 MG Tablet PO (20:24)
[2023-01-31] VITALS: BP 149/56; PULSE 68; RESP 16; O2SAT 98
[2023-01-31 05:33] VITALS: BMI 37.8
--- NOTE | 2023-01-31 07:21 | PCM.PN.HOSP ---
Reason for Visit Reason for Visit: Diagnoses Hemiplegia, unspecified affecting right dominant side (01/28/23) Essential (primary) hypertension (01/28/23) Unspecified atrial fibrillation (01/28/23) Cerebral infarction, unspecified (01/28/23) Bradycardia, unspecified (01/28/23) Dysarthria and anarthria (01/28/23) Subjective Subjective Patient seen right-sided deficit persist. Blood pressure control continues to remain labile Objective Data Objective Data Vital Signs: Vital Signs Temp Pulse Resp BP Pulse Ox O2 Del Method O2 Flow Rate 96.9 F L 68 16 149/56 H 98 Nasal Cannula 2 01/30/23 16:19 01/31/23 00:00 01/31/23 00:00 01/31/23 00:00 01/31/23 00:00 01/31/23 04:00 01/31/23 04:00 Oxygen Flow Rate (L/min) 2 Oxygen Delivery Method Nasal Cannula Weight: 106.2 kg Body Mass Index (BMI) 37.8 Intake & Output: Intake and Output for Last 24 Hours 01/29/23 01/30/23 01/31/23 23:59 23:59 23:59 Intake Total 0 / 0 Output Total 1550 / 2150 2200 / 2200 Balance -1550 / -2150 -2200 / -2200 Lab / Micro Data 01/30/23 03:15 01/31/23 03:00 Physical Exam Narrative GENERAL: cooperative HEENT: Atraumatic; normocephalic EYES; Anicteric, Normal Conjunctiva NECK; supple, normal thyroid, RESPIRATORY: Diminished to auscultation CARDIOVASCULAR: Regular S1 S2, GI: soft, normoactive bowel sounds, : No Renal angle tenderness; EXTREMITIES: No edema, no clubbing, MUSCULOSKELETAL: no muscle wasting NEURO: Right-sided hemiplegia SKIN: No Rash PSYCH; Flat affect Assessment & Plan Assessment/Plan (1) Dysarthria: (2) Right hemiplegia: (3) CVA (cerebral vascular accident): QUALIFIERS: CVA mechanism: unspecified Qualified Code(s): I63.9 - Cerebral infarction, unspecified (4) Bradycardia: PLAN: Plan Patient is a 72-year-old gentleman with recent diagnosis of acute CVA transferred to the transitional care unit readmitted with worsening slurred speech and right-sided weakness 1. Acute CVA MRI during recent admission demonstrated Acute infarct involving the left em radiata. Patient was stabilized and discharged to the transitional care unit readmitted with worsening slurred speech and right-sided weakness. Placed on a monitored bed consult placed to telemetry neurology with plans for patient to undergo further evaluation with repeat MRI ? 01/30/2023; repeat MRI demonstrated Subacute ischemic infarct in the left posterior periventricular white matter, increasingly visible on the T2 FLAIR sequence when compared to 01/19/2023. ? 01/31/2023; right-sided deficit persist. 2.. Physical deconditioning - Requested for PT OT eval and social sciences lecturer to assist with discharge planning 3.. Right shoulder pain ? Possibly related to rotator cuff tendinopathy patient reports not being able to move the right upper extremity ordered MRI of the brain to rule out stroke as well as MRI of the shoulder to evaluate the rotator cuff tendinopathy consult placed orthopedic surgery. PT OT as tolerated 4. Chronic A-fib ventricular response ? Presented with slow ventricular response. Placed on telemetry. On systemic anticoagulation with Xarelto continue ? 01/30/2023; Case discussed with cardiology beta-blockers held 5. Class II obesity with BMI of 39.2 ? Complicating care, weight loss advised 6. Hypertension - Blood pressure controlled, home medications continued with dose adjustment as needed ? 01/31/2023 patient blood pressure control continues to remain labile 7. Dyslipidemia ? Patient is on rosuvastatin did contain 8. Did obstructive sleep apnea ? Complicating care patient to undergo sleep study when medically stable 9. History of previous DVT ? Patient is on Xarelto 10. DVT prophylaxis ? Patient already on systemic anticoagulation with Xarelto Time spent in the patient's overall evaluation,decision-making process, review of diagnostic data, adjustment of management, discussion with other providers, nursing nursing and ancillary staff involved in patient's care documentation, 35 minutes Charges/Coding Visit Charges Inpatient E&M: 82039 Subs Hosp L2
[2023-01-31 07:30] VITALS: O2SAT 98
[2023-01-31 08:00] VITALS: BP 174/92; PULSE 59; RESP 19; TEMP 36.8; O2SAT 96
[2023-01-31] MEDS: Potassium Chloride Oral Tablet 20 MEQ PO ×2 (08:04→16:20)
[2023-01-31] MEDS: Aspirin 81 MG TAB.CHEW PO (08:04)
--- NOTE | 2023-01-31 08:06 | PN.CARD_ITS ---
Subjective Subjective Patient seen and evaluated. Appears to be doing better this morning. Objective Data Vital Signs: Vital Signs Temp Pulse Resp BP Pulse Ox O2 Del Method O2 Flow Rate 96.9 F L 68 16 149/56 H 98 Nasal Cannula 2 01/30/23 16:19 01/31/23 00:00 01/31/23 00:00 01/31/23 00:00 01/31/23 00:00 01/31/23 04:00 01/31/23 04:00 Oxygen Flow Rate (L/min) 2 Oxygen Delivery Method Nasal Cannula Weight: 234 lb 2.095 oz Body Mass Index (BMI) 37.8 Intake & Output: Intake and Output for Last 24 Hours 01/29/23 01/30/23 01/31/23 23:59 23:59 23:59 Intake Total 0 / 0 Output Total 1550 / 2150 2200 / 2200 Balance -1550 / -2150 -2200 / -2200 Lab / Micro Data 01/30/23 03:15 01/30/23 03:15 Cardiology Labs/Tests Rhythm: EKG: ECHO: Stress Test: Cardiac Cath: PCI: CT Surgery: Holter monitor: EPS: PPM: CXR: Chest CT Scan: Physical Exam Const alert, oriented x3 and no apparent distress General Appearance: cooperative HEENT hearing grossly normal bilaterally Head and Scalp: atraumatic Eyes EOMs intact bilaterally Neck General: normal visual inspection Chest inspection of chest normal and palpation of chest normal Resp normal respiratory effort Auscultation: clear to auscultation bilaterally Cardio S1 normal heart sound and S2 normal heart sound Jugular Venous Distention: JVD Rhythm: abnormal rhythm irregularly irregular GI normal to inspection, nondistended, normoactive bowel sounds Extremity normal capillary refill and no pedal edema Peripheral Pulses: Yes pulses 2+ throughout and femoral pulses present Skin no rashes or lesions noted Neuro oriented x3 and CN's II-XII intact bilaterally Psych Appearance: grossly normal and appropriate Assessment & Plan Assessment/Plan (1) Atrial fibrillation: PLAN: He does have atrial fibrillation with a slow ventricular response rate. My recommendation at this time will be to hold the beta-jess for a few days and see where he settles before deciding whether to restart it or use another medication for rate control. His ejection fraction was noted to be normal. * I do not think at this time that he is a candidate for an implantable pacemaker. (2) Acute CVA (cerebrovascular accident): PLAN: He is status post cerebrovascular accident. We will continue to follow him as per neurology (3) Bradycardia: PLAN: His ventricular response rate is remaining stable. I would not make any changes at this time. (4) Hypertension: PLAN: His blood pressure is uncontrolled and passive hypertension is required at this time. We will recommend increasing his lisinopril to 20 mg twice a day. And adding hydrochlorothiazide 25 mg a day. Thank you for allowing me to participate in the care of your patient. Please don't hesitate to call if any issues arise.
[2023-01-31] MEDS: Acetaminophen 325 MG Tablet 650 MG PO (08:08)
[2023-01-31 09:23] LABS: BUN 16 mg/dL (7-18); BUN/Creat Ratio 17.6 RATIO (10-20); Calcium,Total 8.9 mg/dL (8.5-10.1); Creatinine, Serum 0.91 mg/dL (0.70-1.30); EST Glomerular Filtration Rate 87 mL/min (>60); Est Glom Filt Rate - Afr Amer 105 mL/min (>60); Estimated Creatinine Clearance 65.24 ml/min; Glucose 105 mg/dL (74-106); Sodium Level 141 mmol/L (136-145)
[2023-01-31 09:24] LABS: Anion Gap 3 (5-15); Chloride 109 mmol/L (98-107)
[2023-01-31] MEDS: amLODIPine 10 MG Tablet PO (10:12)
[2023-01-31] MEDS: Lisinopril 20 MG Tablet PO (10:12)
[2023-01-31] MEDS: hydroCHLOROthiazide 25 MG Tablet PO (10:12)
--- NOTE | 2023-01-31 10:19 | CASEMGMT ---
JESSIE did confirm with patient his plan is to return to TCU at discharge. JESISE asked Nicol to please start the pre-cert. Plan: [facility] TCU pending insurance approval. Batsheva ANTUNEZ
[2023-01-31 12:00] VITALS: BP 148/87; PULSE 52; PULSE 57; RESP 13; TEMP 36.6; O2SAT 97
[2023-01-31 12:09] LABS: Hematocrit 48.9 % (40-54); Hemoglobin 16.5 g/dL (13.0-16.5); Mean Corp Hgb Conc 33.7 g/dL (32-36); Mean Corpuscular Volume 91.7 fL (80-94); Platelet Count 195 K/mm3 (150-450); RBC Distribution Width CV 15.1 % (11.6-14.6); RBC Distribution Width SD 50.7 fl (35.1-43.9); Red Blood Count 5.33 M/mm3 (4.6-6.2); White Blood Count 10.3 K/mm3 (4.4-11.0)
[2023-01-31 12:10] LABS: Absolute Lymphocyte Count 1.31 X10^3/uL (0.83-4.51); Absolute Neutrophil Count 7.8 X10^3/uL (2.0-7.7); Basophil# 0.04 X10^3/uL; Basophil% 0.4 % (0-1); Eosinophil# 0.39 X10^3/uL; Eosinophils% 3.8 % (0-5); Lymphocyte # 1.31 X10^3/ul (0.83-4.51); Lymphocyte % 12.7 % (19-41); Monocyte# 0.76 X10^3/uL; Monocyte% 7.4 % (0-10); Neutrophil # 7.79 X10^3/uL (2.7-7.7); Neutrophil % 75.4 % (47-70)
--- NOTE | 2023-01-31 13:25 | PCM.TXEXTCAR ---
Diet Diet Order/Speech Therapy: 01/29/23 14:49 Diet: Regular - General Food consistency:: Easy to Chew Liquid Consistency:: Regular/Thin Is pt able to select menu?: Yes Diet Comments: Liquids by tsp, supervision at meals Problem/Diagnosis (1) Dysarthria: Status: Acute Code(s): R47.1 - Dysarthria and anarthria (2) Right hemiplegia: Status: Acute Code(s): G81.91 - Hemiplegia, unspecified affecting right dominant side (3) CVA (cerebral vascular accident): Status: Acute Code(s): I63.9 - Cerebral infarction, unspecified (4) Bradycardia: Status: Acute Code(s): R00.1 - Bradycardia, unspecified Plan Patient is a 72-year-old gentleman with recent diagnosis of acute CVA transferred to the transitional care unit readmitted with worsening slurred speech and right-sided weakness 1. Acute CVA MRI during recent admission demonstrated Acute infarct involving the left em radiata. Patient was stabilized and discharged to the transitional care unit readmitted with worsening slurred speech and right-sided weakness. Placed on a monitored bed consult placed to telemetry neurology with plans for patient to undergo further evaluation with repeat MRI ? 01/30/2023; repeat MRI demonstrated Subacute ischemic infarct in the left posterior periventricular white matter, increasingly visible on the T2 FLAIR sequence when compared to 01/19/2023. ? 01/31/2023; right-sided deficit persist. 2.. Physical deconditioning - Requested for PT OT eval and community mental health social worker to assist with discharge planning 3.. Right shoulder pain ? Possibly related to rotator cuff tendinopathy patient reports not being able to move the right upper extremity ordered MRI of the brain to rule out stroke as well as MRI of the shoulder to evaluate the rotator cuff tendinopathy consult placed orthopedic surgery. PT OT as tolerated 4. Chronic A-fib ventricular response ? Presented with slow ventricular response. Placed on telemetry. On systemic anticoagulation with Xarelto continue ? 01/30/2023; Case discussed with cardiology beta-blockers held 5. Class II obesity with BMI of 39.2 ? Complicating care, weight loss advised 6. Hypertension - Blood pressure controlled, home medications continued with dose adjustment as needed ? 01/31/2023 patient blood pressure control continues to remain labile 7. Dyslipidemia ? Patient is on rosuvastatin did contain 8. Did obstructive sleep apnea ? Complicating care patient to undergo sleep study when medically stable 9. History of previous DVT ? Patient is on Xarelto 10. DVT prophylaxis ? Patient already on systemic anticoagulation with Xarelto Time spent in the patient's overall evaluation,decision-making process, review of diagnostic data, adjustment of management, discussion with other providers, nursing nursing and ancillary staff involved in patient's care documentation, 35 minutes Allergies/Procedures Done in Hospital Allergies apixaban [From Eliquis] Adverse Reaction (Intermediate, Verified 01/18/23 14:28) Wet the bed: found out later had UTI MAKES SICK ON HIS STOMACH ibuprofen [From Motrin] Adverse Reaction (Verified 01/18/23 14:28) Nausea Type of Care/Length of Stay Estimated LOS: Convalescent Care Less Than 30 days Type of Care Needed: Skilled Rehab Potential: Good Prognosis: Good Additional Orders/Day of Discharge Day of Discharge: 01/31/23 Dietary and Speech Recommendations Dietitian Recommendations/Changes: As medically able, rec SIMON to Cardiac - consistency per LIBRARY MEDIA TECHNICIAN Monitor need for ONS pending po intake as diet advanced. Discharge Plan Admission Admit Date/Time: 01/28/23 15:26 Attending Provider: Bari Carpio Primary Care Provider: Shanda Jensen NP Consulting Providers: Maria Esther Smith; Sixto Armstrong Discharge Orders/Prescriptions Prescriptions: New acetaminophen 325 mg Tablet 650 mg PO Q6H PRN PRN (Reason: Pain 1-10 Or Fever>100.7) Qty: 0 0RF sennosides-docusate sodium [Stool Softener-Stimulant Laxat] 8.6-50 mg Tablet 2 tab PO BID PRN PRN (Reason: Constipation) Qty: 0 0RF amlodipine 10 mg Tablet 10 mg PO DAILY Qty: 0 0RF aspirin 81 mg Tablet,Chewable 81 mg PO BREAKFAST Qty: 0 0RF hydrochlorothiazide 25 mg Tablet 25 mg PO DAILY Qty: 0 0RF Continued lisinopril 20 mg tablet 20 mg PO QHS Xarelto 20 mg Tablet 20 mg PO DINNER Qty: 0 0RF potassium chloride 20 mEq tablet,ER particles/crystals 20 meq PO BID atorvastatin 40 mg Tablet 40 mg PO QHS Qty: 0 0RF Discontinued atenolol 50 MG tablet 50 mg PO DAILY Referrals / Follow Up: Shanda Jensen [employer] CHIEF, [employer] CHIEF-C [Primary Care Provider] - Within 2 Weeks Disposition Disposition (needs filled in before D/C Order can be placed): [facility] (3) CVA (cerebral vascular accident) Qualifiers: CVA mechanism: unspecified Qualified Code(s): I63.9 - Cerebral infarction, unspecified
--- NOTE | 2023-01-31 13:28 | PCM.DC.SUM ---
Providers Date of Admission: 01/28/23 Date of Discharge: 01/31/23 Primary Care Physician: Shanda Jensen, JAVIER Consultations 01/28/23 16:56 Consult: Cardiology Routine Consulting Provider: Sixto Armstrong Reason for Consult: Afib/Flutter with Bradycardia EMERGENT Consult: No MD Notified: Yes Date Notified: 01/28/23 Time Notified: 16:13 Method of Notification: Text Reason For Visit: STROKE Diagnosis Discharge Diagnosis (1) Dysarthria: Status: Acute Code(s): R47.1 - Dysarthria and anarthria (2) Right hemiplegia: Status: Acute Code(s): G81.91 - Hemiplegia, unspecified affecting right dominant side (3) CVA (cerebral vascular accident): Status: Acute Code(s): I63.9 - Cerebral infarction, unspecified Qualifiers: CVA mechanism: unspecified Qualified Code(s): I63.9 - Cerebral infarction, unspecified (4) Bradycardia: Status: Acute Code(s): R00.1 - Bradycardia, unspecified Plan Patient is a 72-year-old gentleman with recent diagnosis of acute CVA transferred to the transitional care unit readmitted with worsening slurred speech and right-sided weakness 1. Acute CVA MRI during recent admission demonstrated Acute infarct involving the left em radiata. Patient was stabilized and discharged to the transitional care unit readmitted with worsening slurred speech and right-sided weakness. Placed on a monitored bed consult placed to telemetry neurology with plans for patient to undergo further evaluation with repeat MRI ? 01/30/2023; repeat MRI demonstrated Subacute ischemic infarct in the left posterior periventricular white matter, increasingly visible on the T2 FLAIR sequence when compared to 01/19/2023. ? 01/31/2023; right-sided deficit persist. 2.. Physical deconditioning - Requested for PT OT eval and medical social consultant to assist with discharge planning 3.. Right shoulder pain ? Possibly related to rotator cuff tendinopathy patient reports not being able to move the right upper extremity ordered MRI of the brain to rule out stroke as well as MRI of the shoulder to evaluate the rotator cuff tendinopathy consult placed orthopedic surgery. PT OT as tolerated 4. Chronic A-fib ventricular response ? Presented with slow ventricular response. Placed on telemetry. On systemic anticoagulation with Xarelto continue ? 01/30/2023; Case discussed with cardiology beta-blockers held 5. Class II obesity with BMI of 39.2 ? Complicating care, weight loss advised 6. Hypertension - Blood pressure controlled, home medications continued with dose adjustment as needed ? 01/31/2023 patient blood pressure control continues to remain labile 7. Dyslipidemia ? Patient is on rosuvastatin did contain 8. Did obstructive sleep apnea ? Complicating care patient to undergo sleep study when medically stable 9. History of previous DVT ? Patient is on Xarelto 10. DVT prophylaxis ? Patient already on systemic anticoagulation with Xarelto Time spent in the patient's overall evaluation,decision-making process, review of diagnostic data, adjustment of management, discussion with other providers, nursing nursing and ancillary staff involved in patient's care documentation, 35 minutes Medications at Discharge Home Medications lisinopril 20 mg tablet 20 mg PO QHS BLOOD PRESSURE 12/16/21 rivaroxaban 20 mg tablet (Xarelto) 20 mg PO DINNER BLOOD THINNER #0 tabs 12/28/21 atorvastatin 40 mg tablet 40 mg PO QHS CHOLESTEROL #0 tabs 01/25/23 potassium chloride 20 mEq tablet,extended release(part/cryst) 20 meq PO BID SUPPLEMENT 01/28/23 acetaminophen 325 mg tablet 650 mg (2 x 325 mg) PO Q6H PRN PRN Pain 1-10 Or Fever>100.7 #0 tabs 01/31/23 amlodipine 10 mg tablet 10 mg PO DAILY #0 tabs 01/31/23 aspirin 81 mg chewable tablet 81 mg PO BREAKFAST #0 tabs 01/31/23 hydrochlorothiazide 25 mg tablet 25 mg PO DAILY #0 tabs 01/31/23 sennosides 8.6 mg-docusate sodium 50 mg tablet (Stool Softener-Stimulant Laxative) 2 tab PO BID PRN PRN Constipation #0 tabs 01/31/23 Hospital Course Summary of Care Provided Minutes Spent on Discharge: 35 Physical Exam Narrative GENERAL: cooperative HEENT: Atraumatic; normocephalic EYES; Anicteric, Normal Conjunctiva NECK; supple, normal thyroid, RESPIRATORY: Diminished to auscultation CARDIOVASCULAR: Regular S1 S2, GI: soft, normoactive bowel sounds, : No Renal angle tenderness; EXTREMITIES: No edema, no clubbing, MUSCULOSKELETAL: no muscle wasting NEURO: Right-sided hemiplegia SKIN: No Rash PSYCH; Flat affect Weight / BMI Weight Weight: 106.2 kg Body Mass Index (BMI) 37.8 ABG / Lab / Microbiology Data 01/31/23 03:00 01/31/23 03:00 Laboratory: Laboratory Results - last 24 hr 01/31/23 03:00: WBC 10.3, RBC 5.33, Hgb 16.5, Hct 48.9, MCV 91.7, MCH 31.0, MCHC 33.7, RDW Std Deviation 50.7 H, RDW Coeff of Naz 15.1 H, Plt Count 195, MPV 10.0, Immature Gran % (Auto) 0.300, Neut % (Auto) 75.4 H, Lymph % (Auto) 12.7 L, [place] % (Auto) 7.4, Eos % (Auto) 3.8, Baso % (Auto) 0.4, Absolute Neuts (auto) 7.8 H, Absolute Lymphs (auto) 1.31, Sodium 141, Potassium 4.0, Chloride 109 H, Carbon Dioxide 29.0, Anion Gap 3 L, BUN 16, Creatinine 0.91, Estim Creat Clear Calc 65.24, Est GFR (MDRD) Af Amer 105, Est GFR (MDRD) Non-Af 87, BUN/Creatinine Ratio 17.6, Glucose 105, Calcium 8.9 D/C Instructions Discharge Diet: Low fat / Low cholesterol Discharge Activity: Return to Normal Activity Call your doctor if you observe: Fever of 101 or Higher, Shortness of breath, Fainting spells and Chest pain Meaningful Use Info Meaningful Use Diagnoses (Choose all that apply): Ischemic CVA CVA Therapy Assessed for PT,OT and/or ST?: Yes Ischemic Stroke Antithrombotic order at d/c?: Yes Dx of Atrial fib/flutter?: Yes Anticoagulant at discharge?: Yes Statins at discharge?: Yes Primary Dx Acute Ischemic CVA?: Yes IV thrombolytic ordered during stay?: No Reason IV thrombolytic not ordered: Treatment not Indicated Discharge Plan Admission Admit Date/Time: 01/28/23 15:26 Attending Provider: Bari Carpio Primary Care Provider: Shanda Jensen NP Consulting Providers: Maria Esther Smith; Sixto Armstrong Discharge Orders/Prescriptions Prescriptions: New acetaminophen 325 mg Tablet 650 mg PO Q6H PRN PRN (Reason: Pain 1-10 Or Fever>100.7) Qty: 0 0RF sennosides-docusate sodium [Stool Softener-Stimulant Laxat] 8.6-50 mg Tablet 2 tab PO BID PRN PRN (Reason: Constipation) Qty: 0 0RF amlodipine 10 mg Tablet 10 mg PO DAILY Qty: 0 0RF aspirin 81 mg Tablet,Chewable 81 mg PO BREAKFAST Qty: 0 0RF hydrochlorothiazide 25 mg Tablet 25 mg PO DAILY Qty: 0 0RF Continued lisinopril 20 mg tablet 20 mg PO QHS Xarelto 20 mg Tablet 20 mg PO DINNER Qty: 0 0RF potassium chloride 20 mEq tablet,ER particles/crystals 20 meq PO BID atorvastatin 40 mg Tablet 40 mg PO QHS Qty: 0 0RF Discontinued atenolol 50 MG tablet 50 mg PO DAILY Referrals / Follow Up: Shanda Jensen NP, [employer]GER-C [Primary Care Provider] - Within 2 Weeks Disposition Disposition (needs filled in before D/C Order can be placed): [facility] Facility Charges/Coding Visit Charges Inpatient E&M: 26856 Disch Hosp >30min
--- NOTE | 2023-01-31 13:47 | CASEMGMT ---
Patient was approved to go to TCU. Physician will send patient today. Plan: d/c to [facility] TCU under skilled level of care. Batsheva ANTUNEZ
[2023-01-31 16:00] VITALS: BP 141/90; PULSE 70; PULSE 71; RESP 19; TEMP 36.8; O2SAT 97
[2023-01-31] MEDS: Rivaroxaban 20 MG Tablet PO (16:20)
[2023-01-31 16:50] VITALS: BMI 37.8
== END 2023-01-31 16:30 | DRG 65 ==
LOC: ED 15:53 → ICU 16:44
PROVIDERS: Admitting Provider Internal Medicine; Emergency Provider Emergency Medicine; PCP Nurse Practitioner Family; Visit Provider Internal Medicine
DX: I63.9 Cerebral infarction, unspecified (principal); I48.92 Unspecified atrial flutter; G81.91 Hemiplegia, unspecified affecting right dominant side; I48.20 Chronic atrial fibrillation, unspecified; I71.21 Aneurysm of the ascending aorta, without rupture; I48.91 Unspecified atrial fibrillation; I10 Essential (primary) hypertension; I65.23 Occlusion and stenosis of bilateral carotid arteries; I25.10 Atherosclerotic heart disease of native coronary artery without angina pectoris; E78.5 Hyperlipidemia, unspecified; R00.1 Bradycardia, unspecified; G47.33 Obstructive sleep apnea (adult) (pediatric); M25.511 Pain in right shoulder; E66.9 Obesity, unspecified; Z68.39 Body mass index [BMI] 39.0-39.9, adult; Z79.82 Long term (current) use of aspirin; Z87.891 Personal history of nicotine dependence; Z79.01 Long term (current) use of anticoagulants; Z95.5 Presence of coronary angioplasty implant and graft; Z79.1 Long term (current) use of non-steroidal anti-inflammatories (NSAID); Z86.718 Personal history of other venous thrombosis and embolism; Z99.89 Dependence on other enabling machines and devices
CPT/HCPCS: 70450; 70496; 70498; 70553; 71045; 74230; 80048; 80053; 80061; 83735; 84100; 84443; 84484; 85025; 85610; 85730; 92610; 92611; 93005; 97162; 97166; 97530; 99285; A9575; Q9967; A4216

== ENCOUNTER 2023-01-31 17:01 | Inpatient (IN) | payer MEDICARE, SELFPAY ==
[2023-01-31 17:29] VITALS: BP 114/73; PULSE 59; RESP 18; TEMP 36.6
[2023-01-31] MEDS: Potassium Chloride Oral Tablet 20 MEQ PO (18:45)
--- NOTE | 2023-01-31 21:01 | HP.PCM_ITS ---
HPI - General General Date of Admission: 01/31/23 Date of Service: 01/31/23 Chief Complaint: Here for rehabilitation. HPI Narrative TURNER YAN, is a 72 Male who presents with followin01/28/2023 [facility] ED TCU resident recovering from stroke with stroke alert. Worsening speech, worsening right lower extremity weakness. CT head okay, CTA head/neck okay. Chest X-ray okay. Not TPA candidate, on Xarelto. Bradycardia present. 01/28/2023 Admit to Hospital. MRI brain for stroke. Monitor bradycardia. 01/29/2023 PT/OT for debility. 01/30/2023 Hold beta jess for bradycardia. MRI brain shows previous left stroke. MBS recommended regular textures, thin liquids. 01/31/2023 Right hemiplegia persists. PT/OT debility. PT/OT for right rotator cuff syndrome. 01/31/2023 Admit to TCU with debility here for rehabilitation, strengthening, prior to disposition determination. 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, nasal cavity and accessory sinuses BPH (benign prostatic hyperplasia) Cardiac murmur, unspecified Cellulitis of right lower limb Cervical disc disease CPAP (continuous positive airway pressure) dependence Deep venous thrombosis Dyspnea on minimal exertion Essential (primary) hypertension Former smoker FTT (failure to thrive) in adult GERD (gastroesophageal reflux disease) Hyperglycemia Hyperlipidemia Leg pain Lymphedema New onset atrial fibrillation (03/24/20) 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 Obesity ANDREE (obstructive sleep apnea) Pain in right lower leg Pain of left great toe Pain of left lower extremity due to injury Skin ulcer of left great toe with fat layer exposed Sleep apnea Toe ulcer Traumatic hematoma of left lower leg Venous insufficiency Home Medications lisinopril 20 mg tablet 20 mg PO QHS BLOOD PRESSURE 12/16/21 [History Last Taken 01/31/23] rivaroxaban 20 mg tablet (Xarelto) 20 mg PO DINNER BLOOD THINNER #0 tabs 12/28/21 [Rx Last Taken 01/30/23] atorvastatin 40 mg tablet 40 mg PO QHS CHOLESTEROL #0 tabs 01/25/23 [Rx Last Taken 01/30/23] potassium chloride 20 mEq tablet,extended release(part/cryst) 20 meq PO BID SUPPLEMENT 01/28/23 [History Last Taken 01/31/23] acetaminophen 325 mg tablet 650 mg (2 x 325 mg) PO Q6H PRN PRN Pain 1-10 Or Fever>100.7 #0 tabs 01/31/23 [Rx Last Taken 01/31/23] amlodipine 10 mg tablet 10 mg PO DAILY BP #0 tabs 01/31/23 [Rx Last Taken 01/31/23] aspirin 81 mg chewable tablet 81 mg PO BREAKFAST blood thinner #0 tabs 01/31/23 [Rx Last Taken 01/31/23] hydrochlorothiazide 25 mg tablet 25 mg PO DAILY BP/fluid #0 tabs 01/31/23 [Rx Last Taken 01/31/23] sennosides 8.6 mg-docusate sodium 50 mg tablet (Stool Softener-Stimulant Laxative) 2 tab PO BID PRN PRN Constipation #0 tabs 01/31/23 [Rx Last Taken Unknown] Allergy/AdvReac Type Severity Reaction Status Date / Time apixaban [From Eliquis] AdvReac Intermediate Wet the Verified 01/18/23 14:28 bed: found out later had UTI ibuprofen [From Motrin] AdvReac Nausea Verified 01/18/23 14:28 Family History Mother CAD (coronary artery disease) Hypertension History of cardiac radiofrequency ablation Sister Hypertension Other Arthritis Surgical History H/O cervical spine surgery History of bursectomy History of carpal tunnel release History of carpal tunnel surgery History of coronary artery stent placement (11/29/10) History of coronary artery stent placement History of fusion of cervical spine History of herniorrhaphy History of removal of cyst History of transurethral resection of prostate Social History household members: none Smoking Status: Unknown if ever smoked alcohol intake: current details: occasional substance use type: does not use ROS Constitutional Constitutional: Denies chills, fever(s) or weight gain ENT HEENT: Denies headache(s), nasal congestion or nasal discharge Cardiovascular Cardiovascular: Denies chest pain or palpitations Respiratory/Chest Respiratory/Chest: Denies cough, excessive phlegm production or shortness of breath with exertion Gastrointestinal Gastrointestinal: Denies abdominal pain, nausea or vomiting Genitourinary Genitourinary: Denies dysuria Musculoskeletal Musculoskeletal: Denies joint pain or joint swelling Integumentary Integumentary: Denies rash or wounds Neurologic Neurologic: Denies focal weakness, numbness or tingling Psychiatric Psychiatric: Denies anxiety, auditory hallucinations, depression, homicidal ideation or suicidal ideation Vital Signs Vital Signs Vital Signs: 01/31/23 17:29 Temperature 97.9 F Temperature Source Temporal Pulse Rate 59 L Respiratory Rate 18 Blood Pressure 114/73 Blood Pressure Mean 86 Blood Pressure Source Monitor Blood Pressure Position Semi-Fowlers Blood Pressure Location Right Arm Physical Exam Const alert General Appearance: cooperative HEENT normocephalic Eyes PERRL and EOMs intact bilaterally Neck supple, no JVD and no carotid bruits Resp normal respiratory effort, normal air movement and clear to auscultation bilaterally Cardio regular rate and regular rhythm GI normal to inspection, nondistended, normoactive bowel sounds, non-tender and non-distended Extremity normal capillary refill General Extremity: Negative for edema Skin no rashes or lesions noted General Skin Exam: no breakdown Neuro Neuro Narrative: Dense right hemiplegia. Psych affect normal Appearance: appropriate Assessment & Plan Assessment/Plan (1) Debility: (2) Bradycardia: (3) Dysarthria: (4) Acute CVA (cerebrovascular accident): (5) Atrial fibrillation: (6) Hyperlipidemia: (7) Right rotator cuff tear: (8) Right hemiplegia: (9) Hypertension: PLAN: Plan 72 year old male with below past medical history hospitalized for left stroke with right hemiplegia, complicated by bradycardia, atrial fibrillation, admitted to TCU with debility, here for rehabilitation, strengthening, prior to disposition determination. * Debility - PT/OT. * Dysphagia - ST. * Pain - Tylenol 1000mg q6 prn pain (1-10). * Bowel - senna/colace 2 tablets bid prn. * Adult immunization - Administer pneumonia vaccine, covid19 vaccine, flu vaccine as appropriate. * DVT prophylaxis - on Xarelto. * Hypertension - Lisinopril 20mg qhs, HCTZ 25mg daily, Amlodipine 10mg daily. * Stroke - Xarelto 20mg daily, Aspirin 81mg daily, failed Xarelto alone. * Hyperlipidemia - Atorvastatin 40mg qhs. * Hypokalemia - KCL 20meq bidcm. * Skin irritation - Calomseptine topical bid. * Tinea Corporis - Miconazole topical bid.
[2023-01-31] MEDS: Lisinopril 20 MG Tablet PO (22:34)
[2023-01-31] MEDS: Atorvastatin Calcium 40 MG Tablet PO (22:34)
[2023-01-31] MEDS: Menthol/Lanolin/Calamine/Znox 113 GM Tube 1 APPLIC TOPICAL (22:34)
[2023-01-31] MEDS: Miconazole Nitrate 43 GM Bottle 1 APPLIC TOPICAL (22:35)
[2023-01-31 22:37] VITALS: BMI 37.3
[2023-02-01 05:47] VITALS: BP 176/98; PULSE 69; RESP 16; TEMP 36.3; O2SAT 96
[2023-02-01 05:49] VITALS: PULSE 69; RESP 16; O2SAT 96
[2023-02-01 06:02] LABS: Absolute Lymphocyte Count 1.28 X10^3/uL (0.83-4.51); Absolute Neutrophil Count 7.5 X10^3/uL (2.0-7.7); Basophil# 0.03 X10^3/uL; Basophil% 0.3 % (0-1); Eosinophil# 0.49 X10^3/uL; Eosinophils% 4.8 % (0-5); Hematocrit 50.9 % (40-54); Hemoglobin 17.2 g/dL (13.0-16.5); Lymphocyte # 1.28 X10^3/ul (0.83-4.51); Lymphocyte % 12.6 % (19-41); Mean Corp Hgb Conc 33.8 g/dL (32-36); Mean Corpuscular Hgb 31.3 pg (27.0-32.0); Mean Corpuscular Volume 92.5 fL (80-94); Monocyte# 0.81 X10^3/uL; NRBC Flagged by Analyzer 0 % (0-5); Neutrophil # 7.51 X10^3/uL (2.7-7.7); Neutrophil % 73.9 % (47-70); Platelet Count 205 K/mm3 (150-450); RBC Distribution Width CV 15.1 % (11.6-14.6); RBC Distribution Width SD 51.2 fl (35.1-43.9); White Blood Count 10.2 K/mm3 (4.4-11.0)
[2023-02-01 06:37] LABS: Anion Gap 5 (5-15); BUN 18 mg/dL (7-18); Calcium,Total 9.2 mg/dL (8.5-10.1); Chloride 108 mmol/L (98-107); EST Glomerular Filtration Rate 78 mL/min (>60); Est Glom Filt Rate - Afr Amer 94 mL/min (>60); Estimated Creatinine Clearance 59.37 ml/min; Glucose 95 mg/dL (74-106); Potassium 3.9 mmol/L (3.5-5.1); Sodium Level 141 mmol/L (136-145)
[2023-02-01] MEDS: Potassium Chloride Oral Tablet 20 MEQ PO ×2 (08:05→17:33)
[2023-02-01] MEDS: Aspirin 81 MG TAB.CHEW PO (08:05)
[2023-02-01] MEDS: hydroCHLOROthiazide 25 MG Tablet PO (08:06)
[2023-02-01] MEDS: amLODIPine 10 MG Tablet PO (08:06)
[2023-02-01] MEDS: Miconazole Nitrate 43 GM Bottle 1 APPLIC TOPICAL ×2 (08:07→21:02)
[2023-02-01] MEDS: Menthol/Lanolin/Calamine/Znox 113 GM Tube 1 APPLIC TOPICAL ×2 (08:07→21:03)
[2023-02-01] MEDS: Tuberculin,Purif.prot.deriv. 50 TU/ML Vial 0.1 ML ID (10:04)
--- NOTE | 2023-02-01 13:00 | CASEMGMT ---
Social Work Pt is a readmit. No changes to assessment. Reminded pt of insurance coverage. Pt has no questions. SW will continue to follow for DC planning. Danica Ching, [employer]
--- NOTE | 2023-02-01 14:08 | PCM.PN.DRR ---
TCU RX Drug Regimen Review Subjective/Objective Subjective/Objective: Subjective: 72 YOM admitted to TCU 01/31/23 s/p hospitalization for right lower extremity weakness prmpting stroke work-up. Patient with prior history of strokes. Patient admitted to TCU for strengthening and rehabilitation prior to discharge. Discharge plans are yet to be determined. Objective: Allergies apixaban [From Eliquis] Adverse Reaction (Intermediate, Verified 01/18/23 14:28) Wet the bed: found out later had UTI MAKES SICK ON HIS STOMACH ibuprofen [From Motrin] Adverse Reaction (Verified 01/18/23 14:28) Nausea Current Medications Generic Name Dose Route Start Last Admin Trade Name Freq PRN Reason Stop Dose Admin Acetaminophen 1,000 mg 01/31/23 21:12 Acetaminophen 500 Mg Tablet PO Q6H PRN PRN Pain Score 1-10 Amlodipine Besylate 10 mg 02/01/23 10:00 02/01/23 08:06 Amlodipine 10 Mg Tablet PO 10 mg DAILY IKE Administration Protocol Aspirin 81 mg 02/01/23 08:00 02/01/23 08:05 Aspirin 81 Mg Tab.Chew PO 81 mg BREAKFAST IKE Administration Atorvastatin Calcium 40 mg 01/31/23 22:00 01/31/23 22:34 Atorvastatin Calcium 40 Mg Tablet PO 40 mg QHS IKE Administration Calamine/Phenol 1 applic 01/31/23 22:00 02/01/23 08:07 Menthol/Lanolin/Calamine/Znox 113 Gm Tube TOPICAL 1 applic BID IKE Administration Protocol Hydrochlorothiazide 25 mg 02/01/23 10:00 02/01/23 08:06 Hydrochlorothiazide 25 Mg Tablet PO 25 mg DAILY IKE Administration Protocol Sodium Chloride 250 mls @ 15 mls/hr 01/31/23 19:59 IV .[id number] PRN Additional IVPB Infusion Sodium Chloride 250 mls @ 15 mls/hr 01/31/23 19:59 IV .[id number] PRN Saline Flush Lisinopril 20 mg 02/01/23 22:00 01/31/23 22:34 Lisinopril 20 Mg Tablet PO 20 mg QHS IKE Administration Protocol Miconazole Nitrate 1 applic 01/31/23 22:00 02/01/23 08:07 Miconazole Nitrate 43 Gm Bottle TOPICAL 1 applic BID IKE Administration Protocol Potassium Chloride 20 meq 01/31/23 18:00 02/01/23 08:05 Potassium Chloride Oral Tablet 20 Meq PO 20 meq BIDCM IKE Administration Rivaroxaban 20 mg 02/01/23 17:00 Rivaroxaban 20 Mg Tablet PO DINNER IKE Senna/Docusate Sodium 2 tablet 01/31/23 17:16 Senna/Docusate Sodium 1 Tablet PO BID PRN PRN Constipation Sodium Chloride 10 - 40 ml 01/31/23 19:59 0.9% Saline Lock 10 Ml Syringe IV UD PRN SALINE FLUSH Tuberculin PPD 0.1 ml 02/08/23 10:00 Tuberculin,Purif.Prot.Deriv. 50 Tu/Ml Vial ID 02/08/23 10:01 X1 ONE Problem List (Updated 01/28/23 @ 15:[address] Eliezer Alfonso MD) Bradycardia (Acute) Dysarthria (Acute) Atrial fibrillation (Acute) Acute CVA (cerebrovascular accident) (Acute) Hyperlipidemia (Acute) Right rotator cuff tear (Acute) Right hemiplegia (Acute) Hypertension (Chronic) Debility (Acute) Vital Signs Temp Pulse Resp BP Pulse Ox O2 Del Method 97.3 F L 69 16 176/98 H 96 Room Air 02/01/23 05:47 02/01/23 05:49 02/01/23 05:49 02/01/23 05:47 02/01/23 05:49 02/01/23 05:49 Oxygen Delivery Method Room Air Weight: 104.8 kg Body Mass Index (BMI) 37.3 Sodium 141 mmol/L (136-145) 02/01/23 05:21 Potassium 3.9 mmol/L (3.5-5.1) 02/01/23 05:21 Chloride 108 mmol/L (98-107) H 02/01/23 05:21 Carbon Dioxide 28.0 mmol/L (21.0-32.0) 02/01/23 05:21 Anion Gap 5 (5-15) 02/01/23 05:21 BUN 18 mg/dL (7-18) 02/01/23 05:21 Creatinine 1.00 mg/dL (0.70-1.30) 02/01/23 05:21 Est GFR (MDRD) Af Amer 94 mL/min (>60) 02/01/23 05:21 Est GFR (MDRD) Non-Af 78 mL/min (>60) 02/01/23 05:21 BUN/Creatinine Ratio 18.0 RATIO (10-20) 02/01/23 05:21 Glucose 95 mg/dL (74-106) 02/01/23 05:21 Assessment/Plan: 1. Pain: Tylenol 1000mg PO Q6h PRN Pain 1-10. Please continue to monitor for increased/decreased S/S pain, PRN medication usage, LFT with frequent use. -Patient has not required any PRN medication doses. Patient's pain appears controlled at this time. 2. History of Stroke/ Afib/ HLD: Xarelto 20mg PO Daily, Aspirin 81mg PO Daily, Lipitor 40mg PO QHS. Please continue to monitor for S/S bleeding/bruising, Hgb (17.2 on 02/01), Hct (50.9 on 02/01), lipid panel annually or sooner if clinically indicated (last completed 01/29/23, WNL). Note: patient not on beta jess at this time, stopped during hospitalization d/t bradycardia, continue to monitor pulse (last pulse 69 BPM) 3. Hypertension: Norvasc 10mg PO Daily, HCTZ 25mg PO Daily, Lisinopril 20mg PO QHS. Please continue to monitor BP (range 114-176/73-98), renal function (SCr 1 on 02/01), electrolytes (labs WNL on 02/01). 4. Hypokalemia: K-Dur 20mEq 1 tab PO BID. Please continue to monitor potassium levels (last K 3.9 on 02/01), stomach upset, N/V. 5. Skin Integrity: Calmoseptine topically BID, Miconazole topically BID. Please continue to monitor for skin irritation, redness, ulcer formation. 6. Bowel: Senna/Docusate 2 tab PO BID PRN. Please continue to monitor for increased/decreased constipation and/or diarrhea. -The patient has had one bowel movement since admission. Please continue to monitor and administer PRN medication if patient does not have a bowel movement every 48-72hrs. Assessment/Plan for indications treated with psychotropic medications: The patient is not being maintained on any psychotropic medications at this time. Medical chart and medication regimen reviewed. The following medication irregularities or issues were identified: No medication irregularities identified at time of medication review. Date Date of Note:: 02/01/23
--- NOTE | 2023-02-01 14:29 | CHAPLAIN ---
Type of Pastoral Visit ___ Initial Visit _x__ Follow-up Visit ___ On-call Visit ___ General Patient Visit ___ Spiritual Assessment ___ Family Conference ___ Bereavement ___ Rapid Response ___ Code Blue ___ Other (describe below) Pastoral Care Referral From _x__ Patient ___ Family ___ Nurse ___ Physician ___ Plant Technician/Control Room Operator ___ Primer And Powder Canning Leader ___ Other (describe below) Sacrament/Intervention ___ Active listening ___ Anointing ___ Synagogue ___ Bereavement ___ Communion ___ Estefany exploration ___ ___ Life review ___ Prayer ___ Reconciliation ___ Sacrament of Sick _x__ Supportive presence ___ Wedding ___ Other (describe below) Pastoral Comments patient has been seen now in several parts of the hospital; 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
--- NOTE | 2023-02-01 14:29 | NURSING ---
Updated patient that staff and patient tested covid positive. He said he will update his family.
[2023-02-01 15:15] VITALS: BP 153/94; PULSE 68; RESP 20; TEMP 36.6; O2SAT 96
[2023-02-01] MEDS: Rivaroxaban 20 MG Tablet PO (17:34)
[2023-02-01] MEDS: Losartan Potassium 100 MG Tablet PO (18:26)
[2023-02-01] MEDS: Atorvastatin Calcium 40 MG Tablet PO (21:03)
[2023-02-02 08:44] VITALS: BP 130/90; PULSE 71; RESP 16; TEMP 36.7; O2SAT 97
[2023-02-02] MEDS: Aspirin 81 MG TAB.CHEW PO (08:57)
[2023-02-02] MEDS: Potassium Chloride Oral Tablet 20 MEQ PO ×2 (08:57→16:53)
[2023-02-02] MEDS: hydroCHLOROthiazide 25 MG Tablet PO (08:58)
[2023-02-02] MEDS: Losartan Potassium 100 MG Tablet PO (08:58)
[2023-02-02] MEDS: amLODIPine 10 MG Tablet PO (08:58)
[2023-02-02] MEDS: Miconazole Nitrate 43 GM Bottle 1 APPLIC TOPICAL ×2 (08:58→20:47)
[2023-02-02] MEDS: Menthol/Lanolin/Calamine/Znox 113 GM Tube 1 APPLIC TOPICAL ×2 (09:04→20:48)
[2023-02-02] MEDS: Rivaroxaban 20 MG Tablet PO (16:54)
[2023-02-02] MEDS: Acetaminophen 500 MG Tablet 1000 MG PO (16:54)
[2023-02-02] MEDS: Atorvastatin Calcium 40 MG Tablet PO (20:51)
[2023-02-02 21:11] VITALS: PULSE 85; RESP 18; O2SAT 97
[2023-02-03] MEDS: Acetaminophen 500 MG Tablet 1000 MG PO ×2 (00:17→11:34)
[2023-02-03 06:41] VITALS: PULSE 80; RESP 16; O2SAT 95
[2023-02-03] MEDS: Aspirin 81 MG TAB.CHEW PO (08:35)
[2023-02-03] MEDS: Potassium Chloride Oral Tablet 20 MEQ PO ×2 (08:35→17:29)
[2023-02-03] MEDS: amLODIPine 10 MG Tablet PO (08:36)
[2023-02-03] MEDS: hydroCHLOROthiazide 25 MG Tablet PO (08:36)
[2023-02-03] MEDS: Losartan Potassium 100 MG Tablet PO (08:36)
[2023-02-03] MEDS: Miconazole Nitrate 43 GM Bottle 1 APPLIC TOPICAL ×2 (08:37→20:31)
[2023-02-03] MEDS: Menthol/Lanolin/Calamine/Znox 113 GM Tube 1 APPLIC TOPICAL ×2 (08:37→20:32)
[2023-02-03 08:45] VITALS: BP 126/90; PULSE 85; RESP 16; TEMP 36.6; O2SAT 96
[2023-02-03 15:36] VITALS: BP 103/70; PULSE 61; RESP 16; TEMP 36.2; O2SAT 98
[2023-02-03] MEDS: Rivaroxaban 20 MG Tablet PO (17:29)
[2023-02-03] MEDS: Atorvastatin Calcium 40 MG Tablet PO (20:31)
[2023-02-04] MEDS: Potassium Chloride Oral Tablet 20 MEQ PO ×2 (09:03→17:19)
[2023-02-04] MEDS: Aspirin 81 MG TAB.CHEW PO (09:03)
[2023-02-04] MEDS: Losartan Potassium 100 MG Tablet PO (09:03)
[2023-02-04] MEDS: amLODIPine 10 MG Tablet PO (09:04)
[2023-02-04] MEDS: hydroCHLOROthiazide 25 MG Tablet PO (09:04)
[2023-02-04 09:07] VITALS: BP 124/79; PULSE 77
[2023-02-04] MEDS: Menthol/Lanolin/Calamine/Znox 113 GM Tube 1 APPLIC TOPICAL ×2 (11:35→20:22)
[2023-02-04] MEDS: Miconazole Nitrate 43 GM Bottle 1 APPLIC TOPICAL ×2 (11:35→20:22)
[2023-02-04 15:49] VITALS: BP 111/73; PULSE 71; RESP 16; TEMP 36.6; O2SAT 93
[2023-02-04] MEDS: Rivaroxaban 20 MG Tablet PO (17:18)
[2023-02-04] MEDS: Atorvastatin Calcium 40 MG Tablet PO (20:22)
[2023-02-04] MEDS: Acetaminophen 500 MG Tablet 1000 MG PO (20:25)
[2023-02-04 20:27] VITALS: PULSE 68; RESP 16; O2SAT 97
[2023-02-05 06:27] VITALS: PULSE 58; RESP 16; O2SAT 94
[2023-02-05] MEDS: Potassium Chloride Oral Tablet 20 MEQ PO ×2 (08:12→17:06)
[2023-02-05] MEDS: Aspirin 81 MG TAB.CHEW PO (08:12)
[2023-02-05] MEDS: amLODIPine 10 MG Tablet PO (08:13)
[2023-02-05] MEDS: hydroCHLOROthiazide 25 MG Tablet PO (08:13)
[2023-02-05] MEDS: Losartan Potassium 100 MG Tablet PO (08:13)
[2023-02-05] MEDS: Miconazole Nitrate 43 GM Bottle 1 APPLIC TOPICAL ×2 (08:14→20:31)
[2023-02-05] MEDS: Menthol/Lanolin/Calamine/Znox 113 GM Tube 1 APPLIC TOPICAL ×2 (08:15→20:32)
[2023-02-05 11:21] VITALS: BP 120/72; PULSE 78; RESP 16; TEMP 36.3; O2SAT 96
--- NOTE | 2023-02-05 14:41 | NS ---
MST score = 4 - d/t decreased wt. No food dislikes named - will order what he likes and avoid foods that he doesn't like. Provided copy of daily specials/first choice menu w/ instructions on how to order.
[2023-02-05] MEDS: Rivaroxaban 20 MG Tablet PO (17:07)
[2023-02-05] MEDS: Atorvastatin Calcium 40 MG Tablet PO (20:20)
[2023-02-05] MEDS: Acetaminophen 500 MG Tablet 1000 MG PO (20:21)
[2023-02-06 08:09] VITALS: BMI 38.2
[2023-02-06] MEDS: Losartan Potassium 100 MG Tablet PO (09:08)
[2023-02-06] MEDS: Aspirin 81 MG TAB.CHEW PO (09:08)
[2023-02-06] MEDS: hydroCHLOROthiazide 25 MG Tablet PO (09:08)
[2023-02-06] MEDS: Potassium Chloride Oral Tablet 20 MEQ PO ×2 (09:08→16:04)
[2023-02-06] MEDS: amLODIPine 10 MG Tablet PO (09:08)
[2023-02-06] MEDS: Menthol/Lanolin/Calamine/Znox 113 GM Tube 1 APPLIC TOPICAL (09:09)
[2023-02-06] MEDS: Miconazole Nitrate 43 GM Bottle 1 APPLIC TOPICAL (09:09)
--- NOTE | 2023-02-06 11:34 | CASEMGMT ---
Social Work BIMS () and PHQ-2 () completed for MDS assessment. Danica Ching MSW MANAGER CONVENTION
[2023-02-06 14:13] VITALS: BP 129/79; PULSE 66; RESP 18; TEMP 36.6; O2SAT 99
[2023-02-06] MEDS: Rivaroxaban 20 MG Tablet PO (16:04)
[2023-02-06] MEDS: Atorvastatin Calcium 40 MG Tablet PO (21:02)
[2023-02-06] MEDS: Acetaminophen 500 MG Tablet 1000 MG PO (21:04)
[2023-02-06 22:00] VITALS: O2SAT 96
[2023-02-07] MEDS: Miconazole Nitrate 43 GM Bottle 1 APPLIC TOPICAL ×2 (10:02→22:25)
[2023-02-07] MEDS: Menthol/Lanolin/Calamine/Znox 113 GM Tube 1 APPLIC TOPICAL ×2 (10:03→22:25)
[2023-02-07] MEDS: amLODIPine 10 MG Tablet PO (10:04)
[2023-02-07] MEDS: Potassium Chloride Oral Tablet 20 MEQ PO ×2 (10:04→16:34)
[2023-02-07] MEDS: hydroCHLOROthiazide 25 MG Tablet PO (10:04)
[2023-02-07] MEDS: Aspirin 81 MG TAB.CHEW PO (10:04)
[2023-02-07] MEDS: Losartan Potassium 100 MG Tablet PO (10:05)
[2023-02-07 10:08] VITALS: BP 104/66; PULSE 72
--- NOTE | 2023-02-07 13:20 | CASEMGMT ---
Addendum entered by Danica Ching 02/08/23 13:57: Received update from [facility] and son was not happy about needing to sell one of the two vehicles and spend down about $1500 to become elgible for Medicaid. Son was also unable to say exact amounts of income. At this time, the patient is over resources for Medicaid. Therapy also contacted son and offered Sunday therapy training while son is off work. Will await outcomes. Original Note: Social Work IDT met with patient, son then other son via conference call for care plan meeting. Discussed patient's progress in PT/OT/ST/SN. Educated to [facility] insurance with NRD 02/09 and continued stay is not guaranteed with each review. SW inquired about DC plan - home vs SNF, however, IDT is recommending SNF. An extended discussion held with differences between DC home vs SNF. Pt is concerned about Medicaid taking estate and income. SW provided extensive education to short term and senior care Medicaid. Pt ultimately agreed to completing [facility] application. SW provided printed list of SNF in [facility] with quality and resource data via [employer]Port Guide. SW also provided resources for [employer] P[employer]ERER to hire and [place] resource. SW emailed [facility] referral. Will continue to follow for DC planning. Danica Ching, WOODWORKING SHOP LABORER MOLDING PLASTERER
[2023-02-07 13:24] VITALS: BP 119/64; PULSE 61; RESP 16; TEMP 36.2; O2SAT 98
[2023-02-07] MEDS: Rivaroxaban 20 MG Tablet PO (16:35)
[2023-02-07] MEDS: Atorvastatin Calcium 40 MG Tablet PO (22:24)
[2023-02-08] MEDS: Acetaminophen 500 MG Tablet 1000 MG PO ×3 (04:35→20:10)
[2023-02-08 05:51] LABS: Absolute Lymphocyte Count 1.71 X10^3/uL (0.83-4.51); Absolute Neutrophil Count 6.9 X10^3/uL (2.0-7.7); Basophil# 0.05 X10^3/uL; Basophil% 0.5 % (0-1); Eosinophil# 0.69 X10^3/uL; Eosinophils% 6.7 % (0-5); Hematocrit 49.5 % (40-54); Hemoglobin 16.6 g/dL (13.0-16.5); Lymphocyte # 1.71 X10^3/ul (0.83-4.51); Lymphocyte % 16.7 % (19-41); Mean Corp Hgb Conc 33.5 g/dL (32-36); Mean Corpuscular Hgb 31.2 pg (27.0-32.0); Mean Platelet Vol. 10.2 fl (6.2-12.0); Monocyte# 0.86 X10^3/uL; Monocyte% 8.4 % (0-10); NRBC Flagged by Analyzer 0 % (0-5); Neutrophil # 6.91 X10^3/uL (2.7-7.7); Neutrophil % 67.5 % (47-70); Platelet Count 233 K/mm3 (150-450); RBC Distribution Width CV 14.6 % (11.6-14.6); RBC Distribution Width SD 50.2 fl (35.1-43.9); Red Blood Count 5.32 M/mm3 (4.6-6.2); White Blood Count 10.2 K/mm3 (4.4-11.0)
[2023-02-08 06:38] LABS: Anion Gap 6 (5-15); BUN 24 mg/dL (7-18); BUN/Creat Ratio 26.6 RATIO (10-20); Calcium,Total 9.1 mg/dL (8.5-10.1); Chloride 108 mmol/L (98-107); EST Glomerular Filtration Rate 88 mL/min (>60); Est Glom Filt Rate - Afr Amer 106 mL/min (>60); Estimated Creatinine Clearance 65.97 ml/min; Glucose 104 mg/dL (74-106); Potassium 3.4 mmol/L (3.5-5.1); Sodium Level 138 mmol/L (136-145)
[2023-02-08] MEDS: Potassium Chloride Oral Tablet 20 MEQ PO ×3 (08:02→16:44)
[2023-02-08] MEDS: Aspirin 81 MG TAB.CHEW PO (08:03)
[2023-02-08] MEDS: Menthol/Lanolin/Calamine/Znox 113 GM Tube 1 APPLIC TOPICAL ×2 (08:03→21:50)
[2023-02-08] MEDS: amLODIPine 10 MG Tablet PO (08:03)
[2023-02-08] MEDS: Losartan Potassium 100 MG Tablet PO (08:03)
[2023-02-08] MEDS: Miconazole Nitrate 43 GM Bottle 1 APPLIC TOPICAL ×2 (08:04→21:51)
--- NOTE | 2023-02-08 11:45 | NURSING ---
Pt refuses second TB test, has no symptoms such as a fever, weight loss, night sweats , cough or chest pain. Recent chest xray on 01/28 came back clear as well as first TB test results. made aware.
[2023-02-08 13:19] VITALS: BP 129/55; PULSE 69; RESP 16; TEMP 36; O2SAT 98
[2023-02-08] MEDS: Rivaroxaban 20 MG Tablet PO (16:44)
[2023-02-08 20:15] VITALS: O2SAT 97
[2023-02-08] MEDS: Atorvastatin Calcium 40 MG Tablet PO (21:51)
[2023-02-09] MEDS: Acetaminophen 500 MG Tablet 1000 MG PO ×3 (02:32→20:56)
[2023-02-09 08:30] VITALS: BP 126/81; PULSE 77; RESP 19; TEMP 36.4; O2SAT 97
[2023-02-09] MEDS: Losartan Potassium 100 MG Tablet PO (08:33)
[2023-02-09] MEDS: Potassium Chloride Oral Tablet 20 MEQ PO ×2 (08:33→16:26)
[2023-02-09] MEDS: Aspirin 81 MG TAB.CHEW PO (08:34)
[2023-02-09] MEDS: amLODIPine 10 MG Tablet PO (08:34)
[2023-02-09] MEDS: Miconazole Nitrate 43 GM Bottle 1 APPLIC TOPICAL ×2 (08:34→21:00)
[2023-02-09] MEDS: Menthol/Lanolin/Calamine/Znox 113 GM Tube 1 APPLIC TOPICAL ×2 (08:35→21:00)
--- NOTE | 2023-02-09 09:18 | CASEMGMT ---
Addendum entered by Danica Ching 02/09/23 16:04: Therapy recommending 20 inch left bill-drive w/c, hemiwalker, bariatric BSC, [employer], ramp and suggested [place] resources. SW conversing with [employer] with the DME in stock. SW provided BEHAVIORAL ANALYST with [employer], ramp and [facility] resources to provide to son tomorrow. Addendum entered by Danica Ching 02/09/23 13:09: Social Work Phoned son and left VM that insurance approved with NRD 02/15, EDC 02/18. Original Note: Social Work SW phoned son to follow up on DC plans and therapy's offer for family training on Sunday. Son agreed to therapy training - scheduled for 02/10 at 0900. Son stated she spoke with [facility] yesterday and for the money that pt needs to spend down to be eligible, pt and son discussed using that money to make the accommodations in the home and getting the equipment pt needs to be more independent in the home. SW acknowledged preference and clarified, when insurance issues LCD, pt will DC home. Son confirmed. SW educated to skilled HHC and nonskilled HHC. Offered to coordinate any DME needs. Son unsure what pt may need at DC, but will discuss with therapy. JESSIE will continue to follow and assist with DC planning. ALYSSA CosmeW
[2023-02-09] MEDS: Rivaroxaban 20 MG Tablet PO (16:26)
[2023-02-09 20:45] VITALS: O2SAT 96
[2023-02-09] MEDS: Atorvastatin Calcium 40 MG Tablet PO (21:00)
[2023-02-10] MEDS: Acetaminophen 500 MG Tablet 1000 MG PO ×3 (03:21→21:02)
[2023-02-10] MEDS: Losartan Potassium 100 MG Tablet PO (08:35)
[2023-02-10] MEDS: Miconazole Nitrate 43 GM Bottle 1 APPLIC TOPICAL ×2 (08:35→21:05)
[2023-02-10] MEDS: amLODIPine 10 MG Tablet PO (08:35)
[2023-02-10] MEDS: Potassium Chloride Oral Tablet 20 MEQ PO ×2 (08:35→16:45)
[2023-02-10] MEDS: Aspirin 81 MG TAB.CHEW PO (08:35)
[2023-02-10] MEDS: Menthol/Lanolin/Calamine/Znox 113 GM Tube 1 APPLIC TOPICAL ×2 (08:36→21:04)
[2023-02-10 09:31] LABS: Anion Gap 8 (5-15); BUN 25 mg/dL (7-18); BUN/Creat Ratio 25.5 RATIO (10-20); Calcium,Total 8.5 mg/dL (8.5-10.1); Chloride 110 mmol/L (98-107); Creatinine, Serum 0.98 mg/dL (0.70-1.30); EST Glomerular Filtration Rate 80 mL/min (>60); Est Glom Filt Rate - Afr Amer 97 mL/min (>60); Estimated Creatinine Clearance 60.58 ml/min; Glucose 151 mg/dL (74-106); Potassium 3.6 mmol/L (3.5-5.1); Sodium Level 139 mmol/L (136-145)
[2023-02-10] MEDS: Gabapentin 100 MG Capsule PO ×2 (11:55→16:45)
[2023-02-10 15:54] VITALS: BP 129/78; PULSE 61; RESP 16; TEMP 36.9; O2SAT 96
[2023-02-10] MEDS: Rivaroxaban 20 MG Tablet PO (16:46)
--- NOTE | 2023-02-10 18:35 | NURSING ---
Pt and family updated on positive covid pt.
[2023-02-10] MEDS: Atorvastatin Calcium 40 MG Tablet PO (21:00)
[2023-02-11] MEDS: Acetaminophen 500 MG Tablet 1000 MG PO ×3 (05:16→20:56)
[2023-02-11 07:12] LABS: Anion Gap 7 (5-15); BUN 25 mg/dL (7-18); BUN/Creat Ratio 29.2 RATIO (10-20); Calcium,Total 8.5 mg/dL (8.5-10.1); Chloride 112 mmol/L (98-107); Creatinine, Serum 0.86 mg/dL (0.70-1.30); EST Glomerular Filtration Rate 93 mL/min (>60); Est Glom Filt Rate - Afr Amer 113 mL/min (>60); Estimated Creatinine Clearance 69.03 ml/min; Glucose 95 mg/dL (74-106); Potassium 3.8 mmol/L (3.5-5.1); Sodium Level 141 mmol/L (136-145)
[2023-02-11] MEDS: Menthol/Lanolin/Calamine/Znox 113 GM Tube 1 APPLIC TOPICAL ×2 (08:06→20:55)
[2023-02-11] MEDS: Aspirin 81 MG TAB.CHEW PO (08:06)
[2023-02-11] MEDS: Losartan Potassium 100 MG Tablet PO (08:06)
[2023-02-11] MEDS: Gabapentin 100 MG Capsule PO ×3 (08:06→16:54)
[2023-02-11] MEDS: amLODIPine 10 MG Tablet PO (08:06)
[2023-02-11] MEDS: Potassium Chloride Oral Tablet 20 MEQ PO ×2 (08:06→16:55)
[2023-02-11] MEDS: Miconazole Nitrate 43 GM Bottle 1 APPLIC TOPICAL ×2 (08:07→20:55)
[2023-02-11 15:03] VITALS: BP 124/78; PULSE 53; RESP 14; TEMP 36.7; O2SAT 97
[2023-02-11] MEDS: Rivaroxaban 20 MG Tablet PO (16:54)
[2023-02-11 20:34] VITALS: PULSE 60
[2023-02-11] MEDS: Atorvastatin Calcium 40 MG Tablet PO (20:56)
[2023-02-12] MEDS: Acetaminophen 500 MG Tablet 1000 MG PO ×3 (06:33→22:58)
[2023-02-12] MEDS: Gabapentin 100 MG Capsule PO ×3 (06:45→17:20)
[2023-02-12] MEDS: Aspirin 81 MG TAB.CHEW PO (09:00)
[2023-02-12] MEDS: Potassium Chloride Oral Tablet 20 MEQ PO ×2 (09:00→17:21)
[2023-02-12] MEDS: Menthol/Lanolin/Calamine/Znox 113 GM Tube 1 APPLIC TOPICAL ×2 (09:00→22:59)
[2023-02-12] MEDS: Miconazole Nitrate 43 GM Bottle 1 APPLIC TOPICAL ×2 (09:00→22:59)
[2023-02-12] MEDS: Losartan Potassium 100 MG Tablet PO (09:01)
[2023-02-12] MEDS: amLODIPine 10 MG Tablet PO (09:01)
[2023-02-12 09:04] VITALS: BP 121/81; PULSE 70
--- NOTE | 2023-02-12 14:09 | MDS.RN ---
Information for the mds was obtained from review of the clinical record, interview of resident, staff, and direct observation of resident's care .
[2023-02-12 16:00] VITALS: BP 101/57; PULSE 74; RESP 16; TEMP 36; O2SAT 98
[2023-02-12] MEDS: Rivaroxaban 20 MG Tablet PO (17:21)
[2023-02-12 22:45] VITALS: BP 122/74; PULSE 62; RESP 17; TEMP 36.3; O2SAT 98
[2023-02-12] MEDS: Atorvastatin Calcium 40 MG Tablet PO (22:58)
[2023-02-13] MEDS: Acetaminophen 500 MG Tablet 1000 MG PO ×3 (05:09→22:24)
[2023-02-13 08:00] VITALS: BMI 39.9
[2023-02-13] MEDS: Miconazole Nitrate 43 GM Bottle 1 APPLIC TOPICAL ×2 (08:15→22:26)
[2023-02-13] MEDS: Aspirin 81 MG TAB.CHEW PO (08:15)
[2023-02-13] MEDS: Menthol/Lanolin/Calamine/Znox 113 GM Tube 1 APPLIC TOPICAL ×2 (08:15→22:25)
[2023-02-13] MEDS: Losartan Potassium 100 MG Tablet PO (08:15)
[2023-02-13] MEDS: Potassium Chloride Oral Tablet 20 MEQ PO ×2 (08:15→17:18)
[2023-02-13] MEDS: amLODIPine 10 MG Tablet PO (08:15)
[2023-02-13] MEDS: Gabapentin 100 MG Capsule PO ×3 (08:16→17:18)
[2023-02-13 10:00] VITALS: PULSE 60; RESP 16; O2SAT 98
--- NOTE | 2023-02-13 13:28 | NURSING ---
Offered covid vaccine, education about vaccine provided. Patient refuses at this time.
[2023-02-13 15:10] VITALS: BP 119/52; PULSE 61; RESP 16; TEMP 36.4; O2SAT 96
--- NOTE | 2023-02-13 16:22 | NURSING ---
Updated that covid positive patient, he will update his family.
[2023-02-13] MEDS: Rivaroxaban 20 MG Tablet PO (17:18)
[2023-02-13] MEDS: Atorvastatin Calcium 40 MG Tablet PO (22:25)
--- NOTE | 2023-02-14 02:18 | MDS.RN ---
Pt called out asking if he was due for any pain medication, pt only has scheduled Tylenol and Gabapentin; tearful, moaning, and rating his pain a 10/10 all over but stated the most severe was his L hand, L calf, and BLE. Pt repositioned and offered multiple interventions with ineffective result. Denies any head pain, dizziness, or vision changes. Vitals within normal limits at this time. This nurse paged Dr. Zheng at 0215 and received order for Oxy 5mg PRN Q4H for pain ranges 6-10. Pt updated and medicated when due.
[2023-02-14] MEDS: oxyCODONE 5 MG Tablet PO (02:28)
[2023-02-14] MEDS: Acetaminophen 500 MG Tablet 1000 MG PO ×3 (06:31→20:44)
[2023-02-14] MEDS: Senna/Docusate Sodium 1 Tablet 2 TABLET PO ×2 (06:46→17:24)
--- NOTE | 2023-02-14 07:02 | NURSING ---
Pt stated to this nurse that he was having 10/10 pain all over but most severe in his L hand and BLE. Multiple interventions attempted to relieve pain with ineffective result. Vitals within normal limits and denies any headache, dizziness, or blurred vision. Dr. Zheng notified by this nurse at 0215 and new order received for Oxy 5mg Q4H PRN. Pt dakota. medication well and rested in bed without complaints of pain for the remainder of the shift.
[2023-02-14 08:41] VITALS: BP 123/67; PULSE 62
[2023-02-14] MEDS: Gabapentin 100 MG Capsule PO ×3 (08:42→17:21)
[2023-02-14] MEDS: Potassium Chloride Oral Tablet 20 MEQ PO ×2 (08:42→17:20)
[2023-02-14] MEDS: Aspirin 81 MG TAB.CHEW PO (08:42)
[2023-02-14] MEDS: Losartan Potassium 100 MG Tablet PO (08:43)
[2023-02-14] MEDS: amLODIPine 10 MG Tablet PO (08:43)
[2023-02-14] MEDS: Menthol/Lanolin/Calamine/Znox 113 GM Tube 1 APPLIC TOPICAL ×2 (08:44→20:45)
[2023-02-14] MEDS: Miconazole Nitrate 43 GM Bottle 1 APPLIC TOPICAL ×2 (08:44→20:45)
[2023-02-14 15:27] VITALS: BP 110/63; PULSE 60; RESP 16; TEMP 36.3; O2SAT 97
[2023-02-14] MEDS: Rivaroxaban 20 MG Tablet PO (17:20)
[2023-02-14] MEDS: Atorvastatin Calcium 40 MG Tablet PO (20:44)
[2023-02-15 05:54] LABS: Absolute Lymphocyte Count 1.55 X10^3/uL (0.83-4.51); Absolute Neutrophil Count 5.2 X10^3/uL (2.0-7.7); Basophil# 0.05 X10^3/uL; Basophil% 0.6 % (0-1); Eosinophil# 0.56 X10^3/uL; Eosinophils% 6.9 % (0-5); Hematocrit 45.7 % (40-54); Hemoglobin 14.9 g/dL (13.0-16.5); Lymphocyte # 1.55 X10^3/ul (0.83-4.51); Lymphocyte % 19.2 % (19-41); Mean Corp Hgb Conc 32.6 g/dL (32-36); Mean Corpuscular Hgb 30.7 pg (27.0-32.0); Mean Platelet Vol. 9.7 fl (6.2-12.0); Monocyte# 0.69 X10^3/uL; Monocyte% 8.6 % (0-10); NRBC Flagged by Analyzer 0 % (0-5); Neutrophil # 5.19 X10^3/uL (2.7-7.7); Neutrophil % 64.3 % (47-70); Platelet Count 221 K/mm3 (150-450); RBC Distribution Width CV 14.7 % (11.6-14.6); RBC Distribution Width SD 50.9 fl (35.1-43.9); Red Blood Count 4.86 M/mm3 (4.6-6.2); White Blood Count 8.1 K/mm3 (4.4-11.0)
[2023-02-15] MEDS: Acetaminophen 500 MG Tablet 1000 MG PO ×3 (05:58→21:09)
[2023-02-15 06:16] LABS: Anion Gap 5 (5-15); BUN 23 mg/dL (7-18); BUN/Creat Ratio 28.9 RATIO (10-20); Calcium,Total 8.2 mg/dL (8.5-10.1); Chloride 114 mmol/L (98-107); EST Glomerular Filtration Rate 101 mL/min (>60); Est Glom Filt Rate - Afr Amer 123 mL/min (>60); Estimated Creatinine Clearance 74.21 ml/min; Glucose 95 mg/dL (74-106); Potassium 3.9 mmol/L (3.5-5.1); Sodium Level 143 mmol/L (136-145)
[2023-02-15 08:19] VITALS: BP 146/91; PULSE 65; RESP 16; TEMP 36.5; O2SAT 98
[2023-02-15] MEDS: amLODIPine 10 MG Tablet PO (08:21)
[2023-02-15] MEDS: Potassium Chloride Oral Tablet 20 MEQ PO ×2 (08:21→18:06)
[2023-02-15] MEDS: Menthol/Lanolin/Calamine/Znox 113 GM Tube 1 APPLIC TOPICAL ×2 (08:21→21:12)
[2023-02-15] MEDS: Losartan Potassium 100 MG Tablet PO (08:21)
[2023-02-15] MEDS: Aspirin 81 MG TAB.CHEW PO (08:21)
[2023-02-15] MEDS: Gabapentin 100 MG Capsule PO ×3 (08:21→18:05)
[2023-02-15] MEDS: Miconazole Nitrate 43 GM Bottle 1 APPLIC TOPICAL ×2 (08:22→21:12)
[2023-02-15] MEDS: oxyCODONE 5 MG Tablet PO (08:24)
--- NOTE | 2023-02-15 15:52 | CASEMGMT ---
Social Work Insurance issued LCD 02/17, DC 02/18. SW phoned son to update. Confirmed plan is home, despite ongoing recommendations from IDT for SNF placement. Son stated they have already begun modifications to the home. SW notified w/c and BSC has been delivered to pt's room. The hemiwalker order was sent to [facility] and son can picker and packer prior to DC, but this worker will also provide son with script for hemiwalker. SW to coordinate skilled HHC that can provide care needs, accept pt's insurance. Son expressed understanding. SW placed HHC referrals to [facility], [facility], [place], [facility], [facility], [facility], and [facility] - all cannot accept. [facility] can accept pt with SOC 02/19. JESSIE spoke with pt to notify and update. Pt appreciative. Plan: DC home with son 02/18, [facility] PT/OT/ST/SN/WESLEY/JESSIE, fabián, w/c, BSC Danica Ching, CANNON FIRE DIRECTION SPECIALIST INFORMATION AND REFERRAL DIRECTOR
[2023-02-15 16:00] VITALS: BP 109/71; PULSE 67; RESP 14; TEMP 36.4; O2SAT 97
[2023-02-15] MEDS: Rivaroxaban 20 MG Tablet PO (18:06)
--- NOTE | 2023-02-15 20:09 | DS.PCM_ITS ---
Providers Date of Admission: 01/31/23 Primary Care Physician: VU CelisC Reason For Visit: CVA Diagnosis Discharge Diagnosis (1) Debility: Status: Acute Code(s): R53.81 - Other malaise (2) Bradycardia: Status: Acute Code(s): R00.1 - Bradycardia, unspecified (3) Dysarthria: Status: Acute Code(s): R47.1 - Dysarthria and anarthria (4) Acute CVA (cerebrovascular accident): Status: Acute Code(s): I63.9 - Cerebral infarction, unspecified (5) Atrial fibrillation: Status: Acute Code(s): I48.91 - Unspecified atrial fibrillation (6) Hyperlipidemia: Status: Acute Code(s): E78.5 - Hyperlipidemia, unspecified (7) Right rotator cuff tear: Status: Acute Code(s): M75.101 - Unspecified rotator cuff tear or rupture of right shoulder, not specified as traumatic (8) Right hemiplegia: Status: Acute Code(s): G81.91 - Hemiplegia, unspecified affecting right dominant side (9) Hypertension: Status: Chronic Code(s): I10 - Essential (primary) hypertension Plan 72 year old male with below past medical history hospitalized for left stroke with right hemiplegia, complicated by bradycardia, atrial fibrillation, admitted to TCU with debility, here for rehabilitation, strengthening, prior to disposition determination. * Debility - PT/OT. * Dysphagia - ST. * Pain - Tylenol 1000mg q6 prn pain (1-10). * Bowel - senna/colace 2 tablets bid prn. * Adult immunization - Administer pneumonia vaccine, covid19 vaccine, flu vaccine as appropriate. * DVT prophylaxis - on Xarelto. * Hypertension - Lisinopril 20mg qhs, HCTZ 25mg daily, Amlodipine 10mg daily. * Stroke - Xarelto 20mg daily, Aspirin 81mg daily, failed Xarelto alone. * Hyperlipidemia - Atorvastatin 40mg qhs. * Hypokalemia - KCL 20meq bidcm. * Skin irritation - Calomseptine topical bid. * Tinea Corporis - Miconazole topical bid. Medications at Discharge Home Medications rivaroxaban 20 mg tablet (Xarelto) 20 mg PO DINNER BLOOD THINNER #0 tabs 12/28/21 aspirin 81 mg chewable tablet 81 mg PO BREAKFAST blood thinner #0 tabs 01/31/23 acetaminophen 500 mg tablet 1,000 mg (2 x 500 mg) PO Q8 #0 tabs 02/15/23 amlodipine 10 mg tablet 10 mg PO DAILY 30 days #30 tabs 02/15/23 atorvastatin 40 mg tablet 40 mg PO QHS 30 days #30 tabs 02/15/23 gabapentin 100 mg capsule 100 mg PO TIDCM 30 days #90 caps 02/15/23 losartan 100 mg tablet 100 mg PO DAILY 30 days #30 tabs 02/15/23 oxycodone 5 mg tablet 5 mg PO Q4H PRN PRN Pain Score 6-10 7 days #42 tabs 02/15/23 potassium chloride 20 mEq tablet,extended release(part/cryst) (Klor-Con M) 20 meq PO BIDCM 30 days #60 tabs 02/15/23 Hospital Course Operations None Procedures None Summary of Care Provided Minutes Spent on Discharge: 35 Hospital Course: 72 year old male with below past medical history hospitalized for left stroke with right hemiplegia, complicated by bradycardia, atrial fibrillation, admitted to TCU with debility, here for rehabilitation, strengthening, prior to disposition determination. Discharge home with son 02/18/2023, [facility] Care PT/OT/ST/SN/WESLEY/SW, Hemiwalker, Wheelchair, Bedside Commode. Hemiwalker: Patient unsafe to use a cane and requires a hemiwalker for ambulation. Wheelchair: Patient has a mobility limitation that cannot be sufficiently resolved by using a cane or walker. Use of a wheelchair will improve the participating of ADL's on a regular basis in the home. Beside Commode: Patient is unable to access bathroom safely and requires a bedside commode. Physical Exam Const alert General Appearance: cooperative HEENT normocephalic Eyes PERRL and EOMs intact bilaterally Neck supple, no JVD and no carotid bruits Resp normal respiratory effort, normal air movement and clear to auscultation bilaterally Cardio regular rate and regular rhythm GI normal to inspection, nondistended, normoactive bowel sounds, non-tender and non-distended Extremity normal capillary refill General Extremity: Negative for edema Skin no rashes or lesions noted General Skin Exam: no breakdown Neuro Neuro Narrative: Right hemiplegia. Psych affect normal Appearance: appropriate Weight / BMI Weight Weight: 112.219 kg Body Mass Index (BMI) 39.9 ABG / Lab / Microbiology Data 02/15/23 05:20 02/15/23 05:20 Laboratory: Laboratory Results - last 24 hr 02/15/23 05:20: WBC 8.1, RBC 4.86, Hgb 14.9, Hct 45.7, MCV 94.0, MCH 30.7, MCHC 32.6, RDW Std Deviation 50.9 H, RDW Coeff of Naz 14.7 H, Plt Count 221, MPV 9.7, Immature Gran % (Auto) 0.400, Neut % (Auto) 64.3, Lymph % (Auto) 19.2, [place] % (Auto) 8.6, Eos % (Auto) 6.9 H, Baso % (Auto) 0.6, Absolute Neuts (auto) 5.2, Absolute Lymphs (auto) 1.55, Nucleated RBC % 0, Sodium 143, Potassium 3.9, Chloride 114 H, Carbon Dioxide 24.0, Anion Gap 5, BUN 23 H, Creatinine 0.80, Estim Creat Clear Calc 74.21, Est GFR (MDRD) Af Amer 123, Est GFR (MDRD) Non-Af 101, BUN/Creatinine Ratio 28.9 H, Glucose 95, Calcium 8.2 L Microbiology: Microbiology 02/13/23 05:10 Nasal Secretion SARS-CoV-2 Antigen (Rapid) - Final 02/10/23 06:10 Nasal Secretion SARS-CoV-2 Antigen (Rapid) - Final 02/07/23 05:15 Nasal Secretion SARS-CoV-2 Antigen (Rapid) - Final 02/04/23 05:40 Nasal Secretion SARS-CoV-2 Antigen (Rapid) - Final 02/01/23 05:47 Nasal Secretion SARS-CoV-2 Antigen (Rapid) - Final D/C Instructions Discharge Diet: No restrictions Discharge Activity: Return to Normal Activity, May Shower and Use Walker Weight Bearing Status: Weight bearing as tolerated Call your doctor if you observe: Fever of 101 or Higher, Inability to urinate, Inability to have a bowel movement, Shortness of breath, Dizziness, Fainting spells, Swelling in the ankles, Chest pain and Uncontrolled pain Additional Instructions: Discharge home with son 02/18/2023, [facility] Care PT/OT/ST/SN/WESLEY/SW, Hemiwalker, Wheelchair, Bedside Commode. Please Follow Up With: Shanda Jensen NP, ETYMOLOGY TEACHER-C When: Within 1 week. Meaningful Use Info Meaningful Use Diagnoses (Choose all that apply): Ischemic CVA CVA Therapy Assessed for PT,OT and/or ST?: Yes Ischemic Stroke Antithrombotic order at d/c?: Yes Dx of Atrial fib/flutter?: Yes Anticoagulant at discharge?: Yes Statins at discharge?: Yes Primary Dx Acute Ischemic CVA?: Yes IV thrombolytic ordered during stay?: No Reason IV thrombolytic not ordered: Treatment not Indicated Discharge Plan Admission Admit Date/Time: 01/31/23 17:01 Primary Reason for Your Visit: Debility. Attending Provider: Low Zheng Chi Primary Care Provider: Shanda Jensen NP Instructions Additional Instructions / Restrictions: Discharge home with son 02/18/2023, [facility] Care PT/OT/ST/SN/WESLEY/SW, Hemiwalker, Wheelchair, Bedside Commode. Discharge Orders/Prescriptions Prescriptions: New atorvastatin 40 mg Tablet 40 mg PO QHS 30 Days Qty: 30 0RF acetaminophen 500 mg Tablet 1,000 mg PO Q8 Qty: 0 0RF potassium chloride [Klor-Con M20] 20 mEq Tablet,Er Particles/Crystals 20 meq PO BIDCM 30 Days Qty: 60 0RF amlodipine 10 mg Tablet 10 mg PO DAILY 30 Days Qty: 30 0RF gabapentin 100 mg Capsule 100 mg PO TIDCM 30 Days Qty: 90 0RF losartan 100 mg Tablet 100 mg PO DAILY 30 Days Qty: 30 0RF oxycodone 5 mg Tablet 5 mg PO Q4H PRN PRN (Reason: Pain Score 6-10) 7 Days Qty: 42 0RF Continued Xarelto 20 mg Tablet 20 mg PO DINNER Qty: 0 0RF aspirin 81 mg Tablet,Chewable 81 mg PO BREAKFAST Qty: 0 0RF Discontinued lisinopril 20 mg tablet 20 mg PO QHS potassium chloride 20 mEq tablet,ER particles/crystals 20 meq PO BID acetaminophen 325 mg Tablet 650 mg PO Q6H PRN PRN (Reason: Pain 1-10 Or Fever>100.7) Qty: 0 0RF sennosides-docusate sodium [Stool Softener-Stimulant Laxat] 8.6-50 mg Tablet 2 tab PO BID PRN PRN (Reason: Constipation) Qty: 0 0RF amlodipine 10 mg Tablet 10 mg PO DAILY Qty: 0 0RF hydrochlorothiazide 25 mg Tablet 25 mg PO DAILY Qty: 0 0RF atorvastatin 40 mg Tablet 40 mg PO QHS Qty: 0 0RF Referrals / Follow Up: Shanda Jensen NP, ETYMOLOGY TEACHER-C [Primary Care Provider] - Disposition Disposition (needs filled in before D/C Order can be placed): Home Health Servic e
[2023-02-15] MEDS: Atorvastatin Calcium 40 MG Tablet PO (21:10)
[2023-02-16] MEDS: oxyCODONE 5 MG Tablet PO ×2 (04:14→20:02)
[2023-02-16] MEDS: Acetaminophen 500 MG Tablet 1000 MG PO ×3 (05:15→21:09)
[2023-02-16 09:02] VITALS: BP 133/72; PULSE 63; RESP 16; TEMP 36.3; O2SAT 96
[2023-02-16] MEDS: Potassium Chloride Oral Tablet 20 MEQ PO ×2 (09:05→17:26)
[2023-02-16] MEDS: Gabapentin 100 MG Capsule PO ×3 (09:05→17:26)
[2023-02-16] MEDS: Aspirin 81 MG TAB.CHEW PO (09:05)
[2023-02-16] MEDS: Miconazole Nitrate 43 GM Bottle 1 APPLIC TOPICAL ×2 (09:06→21:07)
[2023-02-16] MEDS: Menthol/Lanolin/Calamine/Znox 113 GM Tube 1 APPLIC TOPICAL ×2 (09:06→21:07)
[2023-02-16] MEDS: Losartan Potassium 100 MG Tablet PO (09:06)
[2023-02-16] MEDS: amLODIPine 10 MG Tablet PO (09:06)
--- NOTE | 2023-02-16 11:36 | NURSING ---
Patient's right lower extremity presents with significant edema, redness, and is warm to touch.
--- NOTE | 2023-02-16 13:19 | NURSING ---
Addendum entered by Doris Blair 02/16/23 13:29: nutrition technician reported negative for clots in RLE Original Note: vascular here to do doppler RLE, d/t redness, warmth and edema. also painful/aching. dr trevizo started pt on keflex & doxy PO for possible cellulitis
[2023-02-16] MEDS: Doxycycline 100 MG CAPSULE PO ×2 (13:31→21:07)
[2023-02-16] MEDS: Cephalexin 500 MG Capsule PO ×3 (13:31→23:50)
--- NOTE | 2023-02-16 14:53 | NURSING ---
son updated on RT LE cellulitis & orders for PO ATBs. aware of doppler being negative as well. He will be in to berry picker machine operator DC meds tonight at [facility] retail pharmacy
--- NOTE | 2023-02-16 15:43 | CASEMGMT ---
Social Work BIMS () and PHQ-2 () completed for MDS assessment. Danica Ching MSW SHAREPOINT TRAINER
[2023-02-16] MEDS: Rivaroxaban 20 MG Tablet PO (17:26)
[2023-02-16 20:07] VITALS: PULSE 73; RESP 16; O2SAT 95
[2023-02-16] MEDS: Atorvastatin Calcium 40 MG Tablet PO (21:06)
[2023-02-17] MEDS: oxyCODONE 5 MG Tablet PO ×3 (00:36→20:26)
[2023-02-17] MEDS: Cephalexin 500 MG Capsule PO ×3 (05:41→19:00)
[2023-02-17] MEDS: Acetaminophen 500 MG Tablet 1000 MG PO ×3 (05:45→20:22)
[2023-02-17] MEDS: Menthol/Lanolin/Calamine/Znox 113 GM Tube 1 APPLIC TOPICAL ×2 (08:24→20:23)
[2023-02-17] MEDS: amLODIPine 10 MG Tablet PO (08:25)
[2023-02-17] MEDS: Losartan Potassium 100 MG Tablet PO (08:25)
[2023-02-17] MEDS: Miconazole Nitrate 43 GM Bottle 1 APPLIC TOPICAL ×2 (08:25→20:23)
[2023-02-17] MEDS: Potassium Chloride Oral Tablet 20 MEQ PO ×2 (08:25→18:55)
[2023-02-17] MEDS: Doxycycline 100 MG CAPSULE PO ×2 (08:25→20:22)
[2023-02-17] MEDS: Aspirin 81 MG TAB.CHEW PO (08:25)
[2023-02-17] MEDS: Gabapentin 100 MG Capsule PO ×3 (08:29→18:57)
[2023-02-17 08:31] VITALS: BP 109/71; PULSE 79; RESP 16; TEMP 36.1; O2SAT 99
[2023-02-17 15:06] VITALS: PULSE 70; RESP 16; O2SAT 96
[2023-02-17] MEDS: Rivaroxaban 20 MG Tablet PO (18:56)
[2023-02-17] MEDS: traMADol 50 MG Tablet PO (18:58)
[2023-02-17] MEDS: Atorvastatin Calcium 40 MG Tablet PO (20:23)
[2023-02-18] MEDS: Cephalexin 500 MG Capsule PO ×3 (00:09→12:04)
[2023-02-18] MEDS: oxyCODONE 5 MG Tablet PO ×2 (05:30→13:34)
[2023-02-18] MEDS: Acetaminophen 500 MG Tablet 1000 MG PO ×2 (05:30→13:34)
[2023-02-18] MEDS: Gabapentin 100 MG Capsule PO ×2 (08:22→12:04)
[2023-02-18] MEDS: Losartan Potassium 100 MG Tablet PO (08:23)
[2023-02-18] MEDS: Potassium Chloride Oral Tablet 20 MEQ PO (08:23)
[2023-02-18] MEDS: Doxycycline 100 MG CAPSULE PO (08:23)
[2023-02-18] MEDS: Aspirin 81 MG TAB.CHEW PO (08:23)
[2023-02-18] MEDS: Menthol/Lanolin/Calamine/Znox 113 GM Tube 1 APPLIC TOPICAL (08:23)
[2023-02-18] MEDS: amLODIPine 10 MG Tablet PO (08:24)
[2023-02-18] MEDS: Miconazole Nitrate 43 GM Bottle 1 APPLIC TOPICAL (08:24)
[2023-02-18 14:13] VITALS: BP 144/78; PULSE 60; RESP 16; TEMP 37; O2SAT 97
== END 2023-02-18 13:37 | disposition home health service (06) | DRG 57 ==
PROVIDERS: Admitting Provider Family Medicine Geriatric Medicine; PCP Nurse Practitioner Family; Visit Provider Family Medicine Geriatric Medicine
DX: I69.351 Hemiplegia and hemiparesis following cerebral infarction affecting right dominant side (principal); L03.115 Cellulitis of right lower limb; E78.5 Hyperlipidemia, unspecified; B35.4 Tinea corporis; E87.6 Hypokalemia; G62.9 Polyneuropathy, unspecified; I48.91 Unspecified atrial fibrillation; I10 Essential (primary) hypertension; I69.322 Dysarthria following cerebral infarction; M75.101 Unspecified rotator cuff tear or rupture of right shoulder, not specified as traumatic; I25.10 Atherosclerotic heart disease of native coronary artery without angina pectoris; Z95.5 Presence of coronary angioplasty implant and graft; N40.0 Benign prostatic hyperplasia without lower urinary tract symptoms; Z79.899 Other long term (current) drug therapy; Z79.01 Long term (current) use of anticoagulants; Z79.82 Long term (current) use of aspirin
CPT/HCPCS: 36415; 80048; 85025; 87811; 92526; 92610; 93971; 97110; 97116; 97162; 97166; 97530; 97535; 97802

== ENCOUNTER → 2023-02-16 | Outpatient (CLI) | payer MEDICARE, SELFPAY ==
--- NOTE | 2023-02-16 12:57 | VDLE_ITS ---
Reason For Study: LEG SWELLING RIGHT LEFT GSV is normal. FV is compressible, spontaneous, phasic, CFV is compressible, spontaneous, phasic, competent and demonstrates normal competent and demonstrates normal augmentation. augmentation. FV is compressible, spontaneous, phasic, competent and demonstrates normal augmentation. POP V is compressible, spontaneous, phasic, competent and demonstrates normal augmentation. T/P Trunk is compressible. PTV is compressible. RT PerV is compressible. Procedure This is a venous duplex using B-mode, color flow and spectral Doppler. Exam performed portable in patient room. The exam was diagnostic. A preliminary report was called and/or faxed to TCU RN. VL/Venous Duplex US, Unilateral Interpretation Summary There is no evidence of right lower extremity deep vein thrombosis. Right great saphenous vein appears patent and compressible segmentally. Normal flow patterns left femoral vein. Soft tissue swelling involving the right lower extremity as noted in the calf. Ordering Physician: Low Zheng Chi Referring Physician: Low Zheng Chi Performed By: Bruce Serrano RVT
== END | disposition home or self-care (01) ==
LOC: CVS 12:56
PROVIDERS: PCP Nurse Practitioner Family; Referring Provider Family Medicine Geriatric Medicine; Visit Provider Family Medicine Geriatric Medicine
DX: R22.41 Localized swelling, mass and lump, right lower limb (principal)
CPT/HCPCS: 93971

== ENCOUNTER 2023-02-21 22:16 | Inpatient (IN) | payer MEDICARE, SELFPAY ==
[2023-02-21 22:16] VITALS: BP 135/65; PULSE 75; RESP 14; O2SAT 98
[2023-02-21 22:17] VITALS: BP 142/91; PULSE 89; RESP 22; TEMP 37.7; O2SAT 98
[2023-02-21 22:24] VITALS: BP 142/91; PULSE 94; RESP 22; TEMP 37.7; O2SAT 98; BMI 41.8
--- NOTE | 2023-02-21 22:37 | EX.ED.DYSGE1 ---
HPI History of Present Illness Chief Complaint: Shortness of Breath Informant: patient and family Narrative Narrative: Patient presents via EMS secondary to shortness of breath and fever. He was in the hospital for January 28 to secondary to a stroke. He has right-sided hemiparesis. Family states that prior to leaving the TCU on the he was given prescriptions for doxycycline and Keflex secondary to lower extremity cellulitis. Areas of erythema were outlined. When patient's son got home today he states his father temperature was 102 and has been complaining of shortness of breath for the past couple days. He does have a mild cough. [facility] Medical History Anomalous origin of coronary artery Arthritis Atherosclerotic heart disease of [place] coronary artery without angina pectoris Atrial fibrillation Benign neoplasm of middle ear, nasal cavity and accessory sinuses BPH (benign prostatic hyperplasia) Cardiac murmur, unspecified Cellulitis of right lower limb Cervical disc disease Chronic venous stasis dermatitis of both lower extremities CPAP (continuous positive airway pressure) dependence CVA (cerebral vascular accident) Deep venous thrombosis Dyspnea on minimal exertion Essential (primary) hypertension Former smoker FTT (failure to thrive) in adult GERD (gastroesophageal reflux disease) Hyperglycemia Hyperlipidemia Leg pain Low back pain Lymphedema Lymphedema of both lower extremities New onset atrial fibrillation (03/24/20) 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 Obesity ANDREE (obstructive sleep apnea) Pain in right lower leg Pain of left great toe Pain of left lower extremity due to injury Rotator cuff tear arthropathy of right shoulder Skin ulcer of left great toe with fat layer exposed Sleep apnea Toe ulcer Traumatic hematoma of left lower leg Venous insufficiency Home Medications rivaroxaban 20 mg tablet (Xarelto) 20 mg PO DINNER BLOOD THINNER #0 tabs 12/28/21 [Rx Last Taken 01/30/23] aspirin 81 mg chewable tablet 81 mg PO BREAKFAST blood thinner #0 tabs 01/31/23 [Rx Last Taken 01/31/23] acetaminophen 500 mg tablet 1,000 mg (2 x 500 mg) PO Q8 #0 tabs 02/15/23 [Rx Last Taken Unknown] amlodipine 10 mg tablet 10 mg PO DAILY 30 days #30 tabs 02/15/23 [Rx Last Taken Unknown] atorvastatin 40 mg tablet 40 mg PO QHS 30 days #30 tabs 02/15/23 [Rx Last Taken Unknown] gabapentin 100 mg capsule 100 mg PO TIDCM 30 days #90 caps 02/15/23 [Rx Last Taken Unknown] losartan 100 mg tablet 100 mg PO DAILY 30 days #30 tabs 02/15/23 [Rx Last Taken Unknown] oxycodone 5 mg tablet 5 mg PO Q4H PRN PRN Pain Score 6-10 7 days #42 tabs 02/15/23 [Rx Last Taken Unknown] potassium chloride 20 mEq tablet,extended release(part/cryst) (Klor-Con M) 20 meq PO BIDCM 30 days #60 tabs 02/15/23 [Rx Last Taken Unknown] cephalexin 500 mg capsule 500 mg PO Q6 5 days #20 caps 02/16/23 [Rx Last Taken Unknown] doxycycline monohydrate 100 mg capsule 100 mg PO BID 5 days #10 caps 02/16/23 [Rx Last Taken Unknown] Allergy/AdvReac Type Severity Reaction Status Date / Time apixaban [From Eliquis] AdvReac Intermediate Wet the Verified 01/18/23 14:28 bed: found out later had UTI ibuprofen [From Motrin] AdvReac Nausea Verified 01/18/23 14:28 Family History Mother CAD (coronary artery disease) Hypertension History of cardiac radiofrequency ablation Sister Hypertension Other Arthritis Surgical History H/O cervical spine surgery History of bursectomy History of carpal tunnel release History of carpal tunnel surgery History of coronary artery stent placement (11/29/10) History of coronary artery stent placement History of fusion of cervical spine History of herniorrhaphy History of removal of cyst History of transurethral resection of prostate Social History household members: none Smoking Status: Former smoker alcohol intake: current details: occasional substance use type: does not use ROS ROS ED Constitutional Constitutional ED: Reports fever(s); Denies chills Eyes Eyes: Denies change in vision or discharge from eye(s) ENT ENT ED: Denies discharge from eye(s), rhinorrhea or sore throat Cardiovascular Cardiovascular: Denies chest pain or palpitations Respiratory/Chest Respiratory/Chest: Reports cough and dyspnea Gastrointestinal Gastrointestinal: Denies abdominal pain, nausea or vomiting Genitourinary Genitourinary ED: Denies dysuria Musculoskeletal Musculoskeletal: Denies back pain or extremity pain Integumentary Reports other Details: Erythema bilateral lower extremities. ; Denies Abrasions or rash Neurologic Neurologic: Reports weakness; Denies headache(s) Psychiatric Psychiatric: Denies anxiety or depression Allergic/Immunologic Allergic/Immunologic ED: Denies lip swelling or urticaria EXAM Physical Exam Const Vital Signs: 02/21/23 22:17 02/21/23 22:38 02/21/23 22:16 Temperature 99.8 F H Temperature Source Oral Pulse Rate 89 75 Respiratory Rate 22 H 14 Respiratory Effort Respiratory Depth Respiratory Pattern Blood Pressure 142/91 H 135/65 H Blood Pressure Mean 108 88 Pulse Ox 98 98 Oxygen Delivery Method Nasal Cannula Nasal Cannula Room Air Oxygen Flow Rate (L/min) 2 2 02/21/23 22:24 02/21/23 22:24 02/21/23 23:16 Temperature 99.8 F H Temperature Source Oral Pulse Rate 94 98 Respiratory Rate 22 H 18 Respiratory Effort Short of Breath Respiratory Depth Deep Respiratory Pattern Tachypnea Blood Pressure 142/91 H 123/73 H Blood Pressure Mean 108 89 Pulse Ox 98 98 Oxygen Delivery Method Nasal Cannula Nasal Cannula Nasal Cannula Oxygen Flow Rate (L/min) 5 2 2 02/21/23 23:24 02/22/23 00:00 02/22/23 00:00 Temperature 99.4 F H 98.3 F Temperature Source Oral Oral Pulse Rate 89 91 84 Respiratory Rate 20 H 16 22 H Respiratory Effort Respiratory Depth Respiratory Pattern Blood Pressure 130/75 H 128/80 H 127/76 H Blood Pressure Mean 93 96 93 Pulse Ox 96 95 95 Oxygen Delivery Method Nasal Cannula Nasal Cannula Nasal Cannula Oxygen Flow Rate (L/min) 2 2 2 02/22/23 01:00 02/22/23 01:14 02/22/23 00:00 Temperature 98.1 F Temperature Source Oral Pulse Rate 77 87 Respiratory Rate 22 H 12 Respiratory Effort Short of Breath Respiratory Depth Respiratory Pattern Tachypnea Blood Pressure 124/74 H 120/74 Blood Pressure Mean 90 89 Pulse Ox 85 96 Oxygen Delivery Method Nasal Cannula Oxygen Flow Rate (L/min) 2 Positive obese Nutritional Appearance: obese HEENT Reports dry mucous membranes Mouth ED: Yes dry mucous membranes Mouth: dry mucous membranes Eyes EOMs intact bilaterally Chest Wall inspection of chest normal and palpation of chest normal Resp normal respiratory effort and clear to auscultation bilaterally Cardio Rhythm: abnormal rhythm irregularly irregular GI non-tender Auscultation: hypoactive bowel sounds Palpation: soft Extremity Extremity Narrative: Bilateral lower extremity edema with evidence of lymphedema. Erythema over the bilateral lower extremities is noted, but is significantly warmer to touch than the thighs more consistent with a cellulitis as opposed to just chronic venous skin changes. Neuro oriented x3 Neuro Narrative: Right-sided weakness secondary to prior stroke. MDM MDM MDM Narrative Medical decision making narrative: Patient placed on clinical research monitor. EKG obtained to evaluate for cardiac arrhythmia/ischemia. Chest x-ray obtained to evaluate for acute lung pathology, cardiac size, or mediastinal abnormality. Labwork obtained to evaluate for leukocytosis, anemia, and electrolyte derangement. Blood and urine cultures obtained. Urinalysis obtained to evaluate for infection/hematuria. Patient given Tylenol for elevated temperature of 99.8 here. History & Record Review Discussion w/independent historian: Patient and Family Additional record(s) reviewed:: Prior inpatient record, Prior ED visit and Prior labs Lab Data Attestation: I reviewed the patient's lab results. Labs: Laboratory Results - last 24 hr 02/21/23 02/21/23 02/21/23 22:49 23:05 23:16 WBC RBC Hgb Hct MCV MCH MCHC RDW Std Deviation RDW Coeff of Naz Plt Count MPV Immature Gran % (Auto) Neut % (Auto) Lymph % (Auto) [place] % (Auto) Eos % (Auto) Baso % (Auto) Absolute Neuts (auto) Absolute Lymphs (auto) Nucleated RBC % PT Cancelled INR Cancelled APTT Cancelled Sodium 139 Potassium 4.2 Chloride 110 H Carbon Dioxide 24.0 Anion Gap 5 BUN 14 Creatinine 0.82 Est GFR (MDRD) Af Amer 118 Est GFR (MDRD) Non-Af 97 BUN/Creatinine Ratio 17.0 Glucose 130 H Lactic Acid 1.3 Calcium 8.5 Total Bilirubin 1.40 H AST 28 ALT 36 Alkaline Phosphatase 99 B-Natriuretic Peptide 108.3 H Total Protein 7.2 Albumin 3.1 L Globulin 4.1 Albumin/Globulin Ratio 0.8 L Urine Color Yellow Urine Clarity Clear Urine pH 5.0 Ur Specific [place] 1.015 Urine Protein 15 H Urine Glucose (UA) Normal Urine Ketones Negative Urine Occult Blood 50 H Urine Nitrite Negative Urine Bilirubin Negative Urine Urobilinogen Normal Ur Leukocyte Esterase Negative Urine RBC 0-5 SEEN Urine WBC 0 SEEN Ur Squamous Epith Cells 0 SEEN Urine Bacteria 0 SEEN Urine Mucus 0 SEEN 02/21/23 23:45 WBC 8.6 RBC 4.55 L Hgb 13.9 Hct 41.7 MCV 91.6 MCH 30.5 MCHC 33.3 RDW Std Deviation 49.4 H RDW Coeff of Naz 14.6 Plt Count 169 MPV 9.6 Immature Gran % (Auto) 1.100 H Neut % (Auto) 81.7 H Lymph % (Auto) 5.3 L [place] % (Auto) 9.4 Eos % (Auto) 2.3 Baso % (Auto) 0.2 Absolute Neuts (auto) 7.0 Absolute Lymphs (auto) 0.45 L Nucleated RBC % 0 PT 22.6 H INR 2.0 APTT 54.7 H Sodium Potassium Chloride Carbon Dioxide Anion Gap BUN Creatinine Est GFR (MDRD) Af Amer Est GFR (MDRD) Non-Af BUN/Creatinine Ratio Glucose Lactic Acid Calcium Total Bilirubin AST ALT Alkaline Phosphatase B-Natriuretic Peptide Total Protein Albumin Globulin Albumin/Globulin Ratio Urine Color Urine Clarity Urine pH Ur Specific [place] Urine Protein Urine Glucose (UA) Urine Ketones Urine Occult Blood Urine Nitrite Urine Bilirubin Urine Urobilinogen Ur Leukocyte Esterase Urine RBC Urine WBC Ur Squamous Epith Cells Urine Bacteria Urine Mucus Radiography Chest X-Ray - ED: 1 View, Read by ED Physician and Chronic Changes Diagnostic Testing: Clinical Impression(s) from Imaging Studies Chest X-Ray 02/21/23 23:20 IMPRESSION: Mild Developing infrahilar infiltrates Electronically Signed: Turner Mary MD at 23:48 EDT Reading Location ID and State: [address] [place] [address] Tel , Service support , EKG Initial EKG: Attestation: I personally reviewed and interpreted this EKG as follows: Interpretation: Atrial Fibrillation (Atrial fibrillation 96 bpm. No acute ischemia. Left bundle branch block noted.) Treatment and Re-Evaluation :: CBC reveals normal white count at 8.6 but 82% neutrophils are noted. Hemoglobin is 13.9. INR is elevated at 2, likely secondary to the patient's Xarelto. Chemistry studies significantly for glucose of 130. LFTs unremarkable. Urinalysis reveals no evidence of acute infection. EKG is A-fib which is known with no evidence of acute ischemia. COVID and influenza tests are negative. Chest x-ray per my interpretation was chronic changes. Radiology feels he does have developing bilateral infiltrates. Patient has had cough and increased shortness of breath. He also has evidence of cellulitis on his lower extremities. Given he was recently in the hospital he is covered with Zosyn and vancomycin. I will speak with hospitalist. Cultures have been drawn and are pending. Discharge Plan Dx/Rx/DC Orders Clinical Impression: Cellulitis, Pneumonia Disposition Disposition: Acute Care Hospital [facility]
[2023-02-21 22:58] LABS: Bacteria 0 SEEN /hpf (None Seen); Mucous, Urine 0 SEEN /hpf (<or=2+); Squamous Epithelial Cells - UA 0 SEEN /hpf (0-5); White Blood Cells 0 SEEN /hpf (0-5)
[2023-02-21 22:59] LABS: Color, Urine Yellow (Yellow); Glucose, Dipstick Normal (Normal); Ketone-Dipstick Negative (Negative); Leukocyte Esterase-Dipstick Negative /ul (Negative); Nitrite-Dipstick Negative (Negative); Occult Blood-Urine 50 /ul (Negative); Protein-Dipstick 15 mg/dl (Negative); Specific Gravity, Urine 1.015 (1.002-1.030); Urine Bilirubin Dipstick Negative (Negative); Urine Clarity Clear (Clear); Urine Urobilinogen Normal (Normal)
[2023-02-21 23:07] LABS: Red Blood Cells-Urine 0-5 SEEN /hpf (0-5)
[2023-02-21 23:16] VITALS: BP 123/73; PULSE 98; RESP 18; O2SAT 98
[2023-02-21 23:18] LABS: ALB/GLOB Ratio 0.8 RATIO (0.9-2.4); AST(SGOT) 28 U/L (15-37); Alanine Aminotransfer ALT/SGPT 36 U/L (16-61); Albumin, Serum 3.1 g/dL (3.2-5.0); Alkaline Phosphatase 99 U/L (45-117); Anion Gap 5 (5-15); BUN 14 mg/dL (7-18); Calcium,Total 8.5 mg/dL (8.5-10.1); Chloride 110 mmol/L (98-107); Creatinine, Serum 0.82 mg/dL (0.70-1.30); EST Glomerular Filtration Rate 97 mL/min (>60); Est Glom Filt Rate - Afr Amer 118 mL/min (>60); Globulin 4.1 g/dL (2.2-4.2); Glucose 130 mg/dL (74-106); Potassium 4.2 mmol/L (3.5-5.1); Protein, Total 7.2 g/dL (6.4-8.2); Sodium Level 139 mmol/L (136-145)
[2023-02-21] MEDS: Acetaminophen 325 MG Tablet 650 MG PO (23:19)
--- NOTE | 2023-02-21 23:20 | RAD_ITS ---
STUDY: X-RAY CHEST REASON FOR EXAM: Male, 72 years old. sob TECHNIQUE: Single frontal view of the chest. COMPARISON: January 28, 2023 FINDINGS: Possible developing infrahilar infiltrates. There is no demonstrated pleural abnormality. Normal size heart. Normal mediastinum and kalee. Normal visualized pulmonary arteries. Normal visualized aortic arch and descending thoracic aorta. Normal visualized thoracic spine. Normal visualized ribs, clavicles, and shoulders. There is no demonstrated abnormality of the visualized soft tissue structures of the upper abdomen. RAD/Chest 1 View (Portable) IMPRESSION: Mild Developing infrahilar infiltrates Electronically Signed: Turner Mary MD at 23:48 EDT ,
[2023-02-21 23:24] VITALS: BP 130/75; PULSE 89; RESP 20; TEMP 37.4; O2SAT 96
[2023-02-21 23:25] LABS: BNP,B-Type NATRIURETIC PEPTIDE 108.3 pg/mL (0-100)
[2023-02-21 23:48] LABS: Lactic Acid 1.3 mmol/L (0.4-1.9)
[2023-02-22] VITALS (13 sets, daily range): BP systolic 113–140; BP diastolic 67–82; PULSE 60–91; RESP 12–22; TEMP 36.6–37; O2SAT 85–99; BMI 42.3
[2023-02-22 00:06] LABS: Prothrombin Time (Protime)PT. 22.6 SECONDS (11.7-14.9)
[2023-02-22 00:07] LABS: Absolute Lymphocyte Count 0.45 X10^3/uL (0.83-4.51); Basophil# 0.02 X10^3/uL; Basophil% 0.2 % (0-1); Eosinophils% 2.3 % (0-5); Hematocrit 41.7 % (40-54); Hemoglobin 13.9 g/dL (13.0-16.5); Lymphocyte # 0.45 X10^3/ul (0.83-4.51); Lymphocyte % 5.3 % (19-41); Mean Corp Hgb Conc 33.3 g/dL (32-36); Mean Corpuscular Hgb 30.5 pg (27.0-32.0); Mean Corpuscular Volume 91.6 fL (80-94); Mean Platelet Vol. 9.6 fl (6.2-12.0); Monocyte% 9.4 % (0-10); NRBC Flagged by Analyzer 0 % (0-5); Neutrophil # 6.99 X10^3/uL (2.7-7.7); Neutrophil % 81.7 % (47-70); POSITIVE DIFFERENTIAL YES; Partial Thromboplast Time 54.7 Seconds (24.1-36.2); Platelet Count 169 K/mm3 (150-450); RBC Distribution Width CV 14.6 % (11.6-14.6); RBC Distribution Width SD 49.4 fl (35.1-43.9); Red Blood Count 4.55 M/mm3 (4.6-6.2); White Blood Count 8.6 K/mm3 (4.4-11.0)
[2023-02-22 00:09] LABS: Differential Indicated SCAN CRITERIA MET
[2023-02-22] MEDS: Piperacil/Tazobactam 3.375 GM in 0.9% Normal Saline (50mL MB+) 50 ML IV ×4 (00:53→21:12)
[2023-02-22] MEDS: Vancomycin HCl 1,750 MG in 0.9% Normal Saline (500mL Bag) 500 ML 250 MG IV (01:34)
--- NOTE | 2023-02-22 02:46 | PCM.HP.STD ---
HPI - General General Date of Admission: 02/22/23 Date of Service: 02/22/23 Chief Complaint: Fever HPI Narrative TURNER YAN, is a 72 M who was discharged from our hospital ([facility]) on February 15, 2023 for acute left CVA with right hemiplegia and sent to the TCU with subsequent discharged home presenting to emergency department with a fever of 102.2 F on on 02/21/2023. Of note patient was discharged from the transitional care unit on 01/31/2023. He was placed on 2 antibiotics, doxycycline and Keflex for cellulitis of his legs in the setting of chronic lymphedema. On this presentation patient complained of some shortness of breath; raspy hacking cough with occasional production of brown sputum. [facility] Medical History Anomalous origin of coronary artery Arthritis Atherosclerotic heart disease of [place] coronary artery without angina pectoris Atrial fibrillation Benign neoplasm of middle ear, nasal cavity and accessory sinuses BPH (benign prostatic hyperplasia) Cardiac murmur, unspecified Cellulitis of right lower limb Cervical disc disease Chronic venous stasis dermatitis of both lower extremities CPAP (continuous positive airway pressure) dependence CVA (cerebral vascular accident) Deep venous thrombosis Dyspnea on minimal exertion Essential (primary) hypertension Former smoker FTT (failure to thrive) in adult GERD (gastroesophageal reflux disease) Hyperglycemia Hyperlipidemia Leg pain Low back pain Lymphedema Lymphedema of both lower extremities New onset atrial fibrillation (03/24/20) 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 Obesity ANDREE (obstructive sleep apnea) Pain in right lower leg Pain of left great toe Pain of left lower extremity due to injury Rotator cuff tear arthropathy of right shoulder Skin ulcer of left great toe with fat layer exposed Sleep apnea Toe ulcer Traumatic hematoma of left lower leg Venous insufficiency Home Medications rivaroxaban 20 mg tablet (Xarelto) 20 mg PO DINNER BLOOD THINNER #0 tabs 12/28/21 [Rx Last Taken 01/30/23] aspirin 81 mg chewable tablet 81 mg PO BREAKFAST blood thinner #0 tabs 01/31/23 [Rx Last Taken 01/31/23] acetaminophen 500 mg tablet 1,000 mg (2 x 500 mg) PO Q8 pain/fever #0 tabs 02/15/23 [Rx Last Taken Unknown] amlodipine 10 mg tablet 10 mg PO DAILY 30 days #30 tabs 02/15/23 [Rx Last Taken Unknown] atorvastatin 40 mg tablet 40 mg PO QHS 30 days #30 tabs 02/15/23 [Rx Last Taken Unknown] gabapentin 100 mg capsule 100 mg PO TIDCM 30 days #90 caps 02/15/23 [Rx Last Taken Unknown] losartan 100 mg tablet 100 mg PO DAILY 30 days #30 tabs 02/15/23 [Rx Last Taken Unknown] oxycodone 5 mg tablet 5 mg PO Q4H PRN PRN Pain Score 6-10 7 days #42 tabs 02/15/23 [Rx Last Taken Unknown] potassium chloride 20 mEq tablet,extended release 20 meq PO BID 02/22/23 [History Last Taken Unknown] Allergy/AdvReac Type Severity Reaction Status Date / Time apixaban [From Eliquis] AdvReac Intermediate Wet the Verified 01/18/23 14:28 bed: found out later had UTI ibuprofen [From Motrin] AdvReac Nausea Verified 01/18/23 14:28 Family History Mother CAD (coronary artery disease) Hypertension History of cardiac radiofrequency ablation Sister Hypertension Other Arthritis Surgical History H/O cervical spine surgery History of bursectomy History of carpal tunnel release History of carpal tunnel surgery History of coronary artery stent placement (11/29/10) History of coronary artery stent placement History of fusion of cervical spine History of herniorrhaphy History of removal of cyst History of transurethral resection of prostate Social History household members: none Smoking Status: Former smoker alcohol intake: current details: occasional substance use type: does not use ROS ROS Narrative Pertinent positives and pertinent negatives as noted in HPI. All other systems were reviewed and are negative Vital Signs Vital Signs Vital Signs: 02/21/23 22:17 02/21/23 22:38 02/21/23 22:16 Temperature 99.8 F H Temperature Source Oral Pulse Rate 89 75 Respiratory Rate 22 H 14 Respiratory Effort Respiratory Depth Respiratory Pattern Blood Pressure 142/91 H 135/65 H Blood Pressure Mean 108 88 Pulse Ox 98 98 Oxygen Delivery Method Nasal Cannula Nasal Cannula Room Air Oxygen Flow Rate (L/min) 2 2 02/21/23 22:24 02/21/23 22:24 02/21/23 23:16 Temperature 99.8 F H Temperature Source Oral Pulse Rate 94 98 Respiratory Rate 22 H 18 Respiratory Effort Short of Breath Respiratory Depth Deep Respiratory Pattern Tachypnea Blood Pressure 142/91 H 123/73 H Blood Pressure Mean 108 89 Pulse Ox 98 98 Oxygen Delivery Method Nasal Cannula Nasal Cannula Nasal Cannula Oxygen Flow Rate (L/min) 5 2 2 02/21/23 23:24 02/22/23 00:00 02/22/23 00:00 Temperature 99.4 F H 98.3 F Temperature Source Oral Oral Pulse Rate 89 91 84 Respiratory Rate 20 H 16 22 H Respiratory Effort Respiratory Depth Respiratory Pattern Blood Pressure 130/75 H 128/80 H 127/76 H Blood Pressure Mean 93 96 93 Pulse Ox 96 95 95 Oxygen Delivery Method Nasal Cannula Nasal Cannula Nasal Cannula Oxygen Flow Rate (L/min) 2 2 2 02/22/23 01:00 02/22/23 01:14 02/22/23 00:00 Temperature 98.1 F Temperature Source Oral Pulse Rate 77 87 Respiratory Rate 22 H 12 Respiratory Effort Short of Breath Respiratory Depth Respiratory Pattern Tachypnea Blood Pressure 124/74 H 120/74 Blood Pressure Mean 90 89 Pulse Ox 85 96 Oxygen Delivery Method Nasal Cannula Oxygen Flow Rate (L/min) 2 02/22/23 02:00 Temperature Temperature Source Pulse Rate 86 Respiratory Rate 20 H Respiratory Effort Respiratory Depth Respiratory Pattern Blood Pressure 137/82 H Blood Pressure Mean 100 Pulse Ox 96 Oxygen Delivery Method Nasal Cannula Oxygen Flow Rate (L/min) 2 Weight Weight: 117.6 kg Body Mass Index (BMI) 41.8 Physical Exam Narrative Physical exam: General: Well-nourished, well-developed. Head: Normocephalic, atraumatic, no tenderness Eyes: Vision is grossly intact. EOMI ENT, no trauma, moist mucous membranes, no rhinorrhea Neck: Nontender, No thyromegaly. CVS: Regular rate and rhythm. S1-S2 present. No murmur, gallop or rub. Respiratory : Rhonchi, chest wall nontender Abdomen: Soft, nontender, nondistended, normal bowel sounds, no masses : Deferred Back: Nontender, no CVA tenderness, no midline spinal tenderness. Extremities: Pain and weakness to right shoulder. Unable to raise right upper or right lower extremity. Able to raise left lower and left upper extremity. Strength in left upper and strength in left lower extremity 5 out of 5. Strength in the right upper and right lower extremity 0 out of 5. Skin: Normal color, no trauma, abrasions. Erythema of bilateral legs Neuro: Alert, oriented, cranial nerves II through XII grossly intact. Psychiatry: Normal mood. Normal affect. Not depressed. Not anxious. Results Lab / Micro Data 02/21/23 23:45 02/21/23 22:49 Labs: Laboratory Results - last 24 hr 02/21/23 22:49: Sodium 139, Potassium 4.2, Chloride 110 H, Carbon Dioxide 24.0, Anion Gap 5, BUN 14, Creatinine 0.82, Est GFR (MDRD) Af Amer 118, Est GFR (MDRD) Non-Af 97, BUN/Creatinine Ratio 17.0, Glucose 130 H, Calcium 8.5, Total Bilirubin 1.40 H, AST 28, ALT 36, Alkaline Phosphatase 99, Total Protein 7.2, Albumin 3.1 L, Globulin 4.1, Albumin/Globulin Ratio 0.8 L, Urine Color Yellow, Urine Clarity Clear, Urine pH 5.0, Ur Specific [place] 1.015, Urine Protein 15 H, Urine Glucose (UA) Normal, Urine Ketones Negative, Urine Occult Blood 50 H, Urine Nitrite Negative, Urine Bilirubin Negative, Urine Urobilinogen Normal, Ur Leukocyte Esterase Negative, Urine RBC 0-5 SEEN, Urine WBC 0 SEEN, Ur Squamous Epith Cells 0 SEEN, Urine Bacteria 0 SEEN, Urine Mucus 0 SEEN 02/21/23 23:05: B-Natriuretic Peptide 108.3 H 02/21/23 23:16: PT Cancelled, INR Cancelled, APTT Cancelled, Lactic Acid 1.3 02/21/23 23:45: WBC 8.6, RBC 4.55 L, Hgb 13.9, Hct 41.7, MCV 91.6, MCH 30.5, MCHC 33.3, RDW Std Deviation 49.4 H, RDW Coeff of Naz 14.6, Plt Count 169, MPV 9.6, Immature Gran % (Auto) 1.100 H, Neut % (Auto) 81.7 H, Lymph % (Auto) 5.3 L, [place] % (Auto) 9.4, Eos % (Auto) 2.3, Baso % (Auto) 0.2, Absolute Neuts (auto) 7.0, Absolute Lymphs (auto) 0.45 L, Nucleated RBC % 0, PT 22.6 H, INR 2.0, APTT 54.7 H Micro: Microbiology 02/21/23 22:49 Nasal Secretion SARS-CoV-2 & FLU Antigen (Rapid) - Final Radiology Impression Chest X-Ray 02/21/23 23:20 IMPRESSION: Mild Developing infrahilar infiltrates Electronically Signed: Turner Mary MD at 23:48 EDT , Assessment & Plan Assessment/Plan (1) Pneumonia: QUALIFIERS: Pneumonia type: due to unspecified organism Laterality: bilateral Lung location: unspecified part of lung Qualified Code(s): J18.9 - Pneumonia, unspecified organism (2) Cellulitis: QUALIFIERS: Site of cellulitis: extremity Site of cellulitis of extremity: lower extremity Laterality: unspecified laterality Qualified Code(s): L03.119 - Cellulitis of unspecified part of limb (3) Lymphedema: PLAN: Plan Pneumonia Gram-positive, gram-negative or atypical Lactic acid: 1.3 Respiratory Gram stain and culture pending Albuterol as needed Legionella antigen screen and Strep antigen ordered. Mucinex ordered. Vancomycin and Zosyn ordered at the ED and continued History of atrial fibrillation Continue Xarelto when verified Bilateral lymphedema with possible cellulitis Vancomycin and Zosyn as above. Hold home Keflex and dicyclomine. Debility PT and OT to work with patient. Case management consult. DVT prophylaxis: Not indicated as patient on Xarelto. Xarelto continued. Time spent in the patient's overall evaluation,decision-making process, review of diagnostic data, adjustment of management, discussion with other providers, nursing and ancillary staff involved in patient's care documentation,70 minutes. Charges/Coding Visit Charges Inpatient E&M: 65671 Init Hosp L3
--- NOTE | 2023-02-22 05:16 | PCM.RX.CS ---
Consult Antibiotic Management Pharmacy has been consulted to manage selected antiobiotic: Vancomycin Type of Intervention Type of Consult: New start Suspected Infection Suspected Infection: Skin/Soft tissue and Pneumonia Labs Labs: Sodium 139 mmol/L (136-145) 02/21/23 22:49 Potassium 4.2 mmol/L (3.5-5.1) 02/21/23 22:49 Chloride 110 mmol/L (98-107) H 02/21/23 22:49 Carbon Dioxide 24.0 mmol/L (21.0-32.0) 02/21/23 22:49 Anion Gap 5 (5-15) 02/21/23 22:49 BUN 14 mg/dL (7-18) 02/21/23 22:49 Creatinine 0.82 mg/dL (0.70-1.30) 02/21/23 22:49 Est GFR (MDRD) Af Amer 118 mL/min (>60) 02/21/23 22:49 Est GFR (MDRD) Non-Af 97 mL/min (>60) 02/21/23 22:49 BUN/Creatinine Ratio 17.0 RATIO (10-20) 02/21/23 22:49 Glucose 130 mg/dL (74-106) H 02/21/23 22:49 Microbiology Microbiology: Microbiology 02/21/23 22:49 Urine, Clean Catch Legionella Antigen - Final 02/21/23 22:49 Urine, Clean Catch Streptococcus pneumoniae Antigen (M - Final 02/21/23 22:49 Nasal Secretion SARS-CoV-2 & FLU Antigen (Rapid) - Final Dosing Weight Weight used for dosin.6 kg Estimated Creatinine Clearance Estimated Creatinine Clearance: 97 Goal Trough Goal Trough: 15-20 mcg/mL Pharmacy Plan for Drug Dosing Pharmacy Plan for Drug Dosing: Pharmacy Service will continue to monitor and adjust dosing as required. Follow-Up Labs Follow-Up Labs: Trough: Vancomycin Date/Time Labs Ordered Labs to be done on [date and time ordered]: 02/23/23 @0100
[2023-02-22] MEDS: Acetaminophen 325 MG Tablet 650 MG PO ×2 (06:04→12:40)
[2023-02-22] MEDS: 0.9% Saline Lock 10 ML Syringe IV (06:13)
--- NOTE | 2023-02-22 07:25 | PCM.HOSP.N ---
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
[2023-02-22 08:15] LABS: Absolute Lymphocyte Count 0.65 X10^3/uL (0.83-4.51); Absolute Neutrophil Count 4.4 X10^3/uL (2.0-7.7); Basophil# 0.02 X10^3/uL; Basophil% 0.3 % (0-1); Eosinophil# 0.31 X10^3/uL; Eosinophils% 5.2 % (0-5); Hematocrit 39.6 % (40-54); Hemoglobin 13.1 g/dL (13.0-16.5); Lymphocyte # 0.65 X10^3/ul (0.83-4.51); Lymphocyte % 10.9 % (19-41); Mean Corp Hgb Conc 33.1 g/dL (32-36); Mean Corpuscular Hgb 30.7 pg (27.0-32.0); Mean Corpuscular Volume 92.7 fL (80-94); Monocyte% 10.1 % (0-10); NRBC Flagged by Analyzer 0 % (0-5); Neutrophil # 4.37 X10^3/uL (2.7-7.7); Neutrophil % 73.2 % (47-70); Platelet Count 146 K/mm3 (150-450); RBC Distribution Width CV 14.7 % (11.6-14.6); Red Blood Count 4.27 M/mm3 (4.6-6.2)
[2023-02-22 08:30] LABS: Anion Gap 4 (5-15); BUN 14 mg/dL (7-18); BUN/Creat Ratio 18.9 RATIO (10-20); Chloride 112 mmol/L (98-107); Creatinine, Serum 0.74 mg/dL (0.70-1.30); EST Glomerular Filtration Rate 110 mL/min (>60); Est Glom Filt Rate - Afr Amer 133 mL/min (>60); Estimated Creatinine Clearance 59.37 ml/min; Glucose 101 mg/dL (74-106); Potassium 3.6 mmol/L (3.5-5.1); Sodium Level 139 mmol/L (136-145)
[2023-02-22] MEDS: Vancomycin HCl 1,250 MG in 0.9% Normal Saline (250mL Bag) 250 ML 167 MG IV ×2 (09:37→16:54)
[2023-02-22] MEDS: guaiFENesin 600 MG Tablet PO ×2 (09:37→21:13)
[2023-02-22] MEDS: Losartan Potassium 100 MG Tablet 50 MG PO (09:37)
[2023-02-22] MEDS: Menthol/Lanolin/Calamine/Znox 113 GM Tube 1 APPLIC TOPICAL ×2 (09:37→21:13)
[2023-02-22] MEDS: Miconazole Nitrate 43 GM Bottle 1 APPLIC TOPICAL ×2 (09:37→21:13)
[2023-02-22] MEDS: amLODIPine 10 MG Tablet PO (09:37)
[2023-02-22] MEDS: Aspirin 81 MG TAB.CHEW PO (09:37)
[2023-02-22] MEDS: Gabapentin 100 MG Capsule PO ×3 (09:54→16:54)
[2023-02-22] MEDS: Ipratropium/Albuterol Sulfate 3 ML AMPUL.NEB INHALATION ×2 (11:58→18:47)
--- NOTE | 2023-02-22 12:26 | CASEMGMT ---
Social Work Son aware to provide copies of advanced directives. Danica Ching, [employer] PARTNER MANAGEMENT CONSULTANT
[2023-02-22 13:32] LABS: M R Staph aureus DNA By PCR Negative (Negative); Probe Check PASS; Specimen Processing Control PASS
--- NOTE | 2023-02-22 14:12 | CHAPLAIN ---
Type of Pastoral Visit _x__ Initial Visit ___ Follow-up Visit ___ On-call Visit ___ General Patient Visit ___ Spiritual Assessment ___ Family Conference ___ Bereavement ___ Rapid Response ___ Code Blue ___ Other (describe below) Pastoral Care Referral From _x__ Patient ___ Family ___ Nurse ___ Physician ___ Professor Of Floriculture ___ Supervisor Tan Room ___ Other (describe below) Sacrament/Intervention ___ Active listening ___ Anointing ___ Mormonism ___ Bereavement ___ Communion ___ Estefany exploration ___ ___ Life review _x__ Prayer ___ Reconciliation ___ Sacrament of Sick _x__ Supportive presence ___ Wedding ___ Other (describe below) Pastoral Comments sat at bedside with this patient who has been seen recently and often in previous admissions; pt has notable struggle in breathing but declines any needs at this time; pt is given assurances of good care and help; pt is offered prayer and time to be quiet which is readily accepts
--- NOTE | 2023-02-22 16:03 | CASEMGMT ---
[facility] Readmission Review: Index: 01/20 thru 01/25 Dx: CVA; 01/28 thru 01/31 Dx: CVA Readmission: 01/23/23 Dx: pneumonia Pt with comorbities including aifb, HTN and CVA was admitted on the above noted dates for dx of CVA. Pt was discharged to the TCU at [facility] on both admissions and then subsequently discharged to home on 02/18. Pt with residual right hemiparesis. Pt's son Naeem lives with him and assists pt with household tasks. Pt states his son works during the day and makes pt food for the day and places it in a cooler next to pt's chair. Pt uses a hemiwalker to assist with getting up from his chair and onto his scooter to get into the bathroom. Pt also states he has been lying in bed a lot since returning home. Pt states he has a shower chair with multiple grab bars, a toilet with a bidet, hospital bed, w/c, and a BSC which pt states he is not using. Pt states the RN from [facility] visited and a different clinician was to visit yesterday 02/21 but pt states he was not home due to presenting to the ED. Pt has a follow-up appointment scheduled with his PCP on 03/01. Pt states his son and granddaughter have created a chart that tells him what medications to take and when and pt administers his own meds and abreu down when he has taken them. Pt's goal/plan: Pt states he plans to return home with [facility] SN, PT/OT/ST, SW and ENGRAVER LETTERING resumption and the support of his son. PT/OT evaluations pending at this time. Will continue to monitor and assist with DC planning needs as determined. Mony Xie RN CM
[2023-02-22] MEDS: Rivaroxaban 20 MG Tablet PO (16:54)
--- NOTE | 2023-02-22 19:00 | NURSING ---
called report to Chevy WEBB on PCU
[2023-02-22] MEDS: Atorvastatin Calcium 40 MG Tablet PO (21:13)
[2023-02-23] VITALS (8 sets, daily range): BP systolic 109–139; BP diastolic 70–91; PULSE 72–83; RESP 16–20; TEMP 36.6–36.9; O2SAT 94–97
[2023-02-23] MEDS: Vancomycin Trough/Random Due 1 LAB MC (01:14)
--- NOTE | 2023-02-23 01:30 | PCM.RX.CS ---
Consult Antibiotic Management Pharmacy has been consulted to manage selected antiobiotic: Vancomycin Type of Intervention Type of Consult: Follow-up Suspected Infection Suspected Infection: Pneumonia Labs Labs: Sodium 139 mmol/L (136-145) 02/22/23 07:43 Potassium 3.6 mmol/L (3.5-5.1) 02/22/23 07:43 Chloride 112 mmol/L (98-107) H 02/22/23 07:43 Carbon Dioxide 23.0 mmol/L (21.0-32.0) 02/22/23 07:43 Anion Gap 4 (5-15) L 02/22/23 07:43 BUN 14 mg/dL (7-18) 02/22/23 07:43 Creatinine 0.74 mg/dL (0.70-1.30) 02/22/23 07:43 Est GFR (MDRD) Af Amer 133 mL/min (>60) 02/22/23 07:43 Est GFR (MDRD) Non-Af 110 mL/min (>60) 02/22/23 07:43 BUN/Creatinine Ratio 18.9 RATIO (10-20) 02/22/23 07:43 Glucose 101 mg/dL (74-106) 02/22/23 07:43 Vancomycin Trough 25.0 ug/mL (5.0-15.0) H 02/23/23 00:40 Microbiology Microbiology: Microbiology 02/22/23 10:15 Mucosa - Nasopharyngeal Respiratory Panel (PCR) - Final Rhinovirus 02/21/23 22:49 Urine, Clean Catch Legionella Antigen - Final 02/21/23 22:49 Urine, Clean Catch Streptococcus pneumoniae Antigen (M - Final 02/21/23 22:49 Nasal Secretion SARS-CoV-2 & FLU Antigen (Rapid) - Final Dosing Weight Weight used for dosin kg Estimated Creatinine Clearance Estimated Creatinine Clearance: 108 Goal Trough Goal Trough: 15-20 mcg/mL Pharmacy Plan for Drug Dosing Pharmacy Plan for Drug Dosing: Vancomycin trough level, drawn 7.75hrs post-dose, was high at 25.0. Holding current dosing. Will draw a random vanco level 02/23 @1200 and further dosing will be determined from that result. Pharmacy Service will continue to monitor and adjust dosing as required. Follow-Up Labs Follow-Up Labs: Trough: Vancomycin (random) Date/Time Labs Ordered Labs to be done on [date and time ordered]: 02/23/23 @1200
[2023-02-23] MEDS: Piperacil/Tazobactam 3.375 GM in 0.9% Normal Saline (50mL MB+) 50 ML IV ×3 (05:05→21:10)
[2023-02-23] MEDS: Ipratropium/Albuterol Sulfate 3 ML AMPUL.NEB INHALATION ×2 (07:10→19:23)
[2023-02-23 07:38] LABS: Absolute Lymphocyte Count 0.75 X10^3/uL (0.83-4.51); Basophil# 0.02 X10^3/uL; Basophil% 0.3 % (0-1); Eosinophil# 0.29 X10^3/uL; Eosinophils% 4.3 % (0-5); Hematocrit 40.4 % (40-54); Hemoglobin 13.5 g/dL (13.0-16.5); Lymphocyte # 0.75 X10^3/ul (0.83-4.51); Lymphocyte % 11.1 % (19-41); Mean Corp Hgb Conc 33.4 g/dL (32-36); Mean Corpuscular Volume 92.9 fL (80-94); Mean Platelet Vol. 10.5 fl (6.2-12.0); Monocyte% 10.4 % (0-10); NRBC Flagged by Analyzer 0 % (0-5); Neutrophil # 4.97 X10^3/uL (2.7-7.7); Neutrophil % 73.6 % (47-70); Platelet Count 151 K/mm3 (150-450); RBC Distribution Width CV 14.7 % (11.6-14.6); RBC Distribution Width SD 50.1 fl (35.1-43.9); Red Blood Count 4.35 M/mm3 (4.6-6.2); White Blood Count 6.8 K/mm3 (4.4-11.0)
[2023-02-23] MEDS: Gabapentin 100 MG Capsule PO ×3 (08:04→17:25)
[2023-02-23] MEDS: Aspirin 81 MG TAB.CHEW PO (08:04)
[2023-02-23 08:06] LABS: Anion Gap 7 (5-15); BUN 15 mg/dL (7-18); BUN/Creat Ratio 19.2 RATIO (10-20); Calcium,Total 8.1 mg/dL (8.5-10.1); Chloride 109 mmol/L (98-107); Creatinine, Serum 0.78 mg/dL (0.70-1.30); EST Glomerular Filtration Rate 104 mL/min (>60); Est Glom Filt Rate - Afr Amer 125 mL/min (>60); Estimated Creatinine Clearance 59.37 ml/min; Glucose 90 mg/dL (74-106); Potassium 3.3 mmol/L (3.5-5.1); Sodium Level 137 mmol/L (136-145)
[2023-02-23] MEDS: Potassium Chloride Oral Tablet 20 MEQ 40 MEQ PO (09:33)
[2023-02-23] MEDS: Losartan Potassium 100 MG Tablet 50 MG PO (09:33)
[2023-02-23] MEDS: Menthol/Lanolin/Calamine/Znox 113 GM Tube 1 APPLIC TOPICAL ×2 (09:34→21:02)
[2023-02-23] MEDS: amLODIPine 10 MG Tablet PO (09:34)
[2023-02-23] MEDS: Miconazole Nitrate 43 GM Bottle 1 APPLIC TOPICAL ×2 (09:34→21:02)
[2023-02-23] MEDS: guaiFENesin 600 MG Tablet PO ×2 (09:34→21:01)
--- NOTE | 2023-02-23 14:13 | CASEMGMT ---
Discharge Planning Resumption of care referral sent to [facility] via [facility]. Mary Salcido, Discharge Planning Asst.
--- NOTE | 2023-02-23 16:18 | PN.HOSP_ITS ---
Reason for Visit Reason for Visit: Diagnoses Lymphedema, not elsewhere classified (02/22/23) Pneumonia, unspecified organism (02/22/23) Cellulitis of unspecified part of limb (02/22/23) Subjective Subjective Feeling roughly the same, still short of breath, discussed patient has viral illness and he verbalized his understanding Objective Data Objective Data Vital Signs: Vital Signs Temp Pulse Resp BP Pulse Ox O2 Del Method O2 Flow Rate 98.4 F 75 18 109/76 97 Nasal Cannula 2 02/23/23 13:06 02/23/23 13:06 02/23/23 13:06 02/23/23 13:06 02/23/23 13:06 02/23/23 13:06 02/23/23 13:06 Oxygen Flow Rate (L/min) 2 Oxygen Delivery Method Nasal Cannula Weight: 119.068 kg Body Mass Index (BMI) 42.3 Intake & Output: Intake and Output for Last 24 Hours 02/21/23 02/22/23 02/23/23 23:59 23:59 23:59 Intake Total 1715 / 1715 340 / 340 Output Total 1350 / 1350 580 / 580 Balance 365 / 365 -240 / -240 Lab / Micro Data 02/23/23 06:06 02/23/23 06:06 Labs: Laboratory Results - last 24 hr 02/23/23 00:40: Vancomycin Trough 25.0 H 02/23/23 06:06: WBC 6.8, RBC 4.35 L, Hgb 13.5, Hct 40.4, MCV 92.9, MCH 31.0, MCHC 33.4, RDW Std Deviation 50.1 H, RDW Coeff of Naz 14.7 H, Plt Count 151, MPV 10.5, Immature Gran % (Auto) 0.300, Neut % (Auto) 73.6 H, Lymph % (Auto) 11.1 L, [place] % (Auto) 10.4 H, Eos % (Auto) 4.3, Baso % (Auto) 0.3, Absolute Neuts (auto) 5.0, Absolute Lymphs (auto) 0.75 L, Nucleated RBC % 0, Sodium 137, Potassium 3.3 L, Chloride 109 H, Carbon Dioxide 21.0, Anion Gap 7, BUN 15, Creatinine 0.78, Estim Creat Clear Calc 59.37, Est GFR (MDRD) Af Amer 125, Est GFR (MDRD) Non-Af 104, BUN/Creatinine Ratio 19.2, Glucose 90, Calcium 8.1 L Micro: Microbiology 02/22/23 12:44 Sputum, Expectorated/Coughed Gram Stain - Final 02/21/23 22:49 Urine, Clean Catch Urine Culture - Final Culture exhibits no growth. 02/22/23 10:15 Mucosa - Nasopharyngeal Respiratory Panel (PCR) - Final Rhinovirus 02/21/23 22:49 Urine, Clean Catch Legionella Antigen - Final 02/21/23 22:49 Urine, Clean Catch Streptococcus pneumoniae Antigen (M - Fin al 02/21/23 22:49 Nasal Secretion SARS-CoV-2 & FLU Antigen (Rapid) - Final Physical Exam Narrative General: Alert, oriented, no apparent distress HEENT: Atraumatic, normocephalic Eyes: Anicteric, normal conjunctiva, extraocular movements grossly intact Neck: Supple Respiratory: Fairly normal respiratory effort, diminished at bases Cardiovascular: Regular rate GI: Soft, nontender, nondistended Extremities: No edema Musculoskeletal: Moving all extremities Neuro: No overt focal neurological deficits Skin: Has some erythema bilateral lower extremities that is marked as well as some chronic skin changes, also has nail breakdown and scaling on feet Psych: Cooperative Assessment & Plan Assessment/Plan (1) Pneumonia: QUALIFIERS: Pneumonia type: due to unspecified organism Lat erality: bilateral Lung location: unspecified part of lung Qualified Code(s): J18.9 - Pneumonia, unspecified organism (2) Cellulitis: QUALIFIERS: Site of cellulitis: extremity Site of cellulitis of extremity: lower extremity Laterality: unspecified laterality Qualified Code(s): L03.119 - Cellulitis of unspecified part of limb (3) Lymphedema: PLAN: Plan #Pneumonia-viral pneumonia, positive rhinovirus -Febrile with temp of 102 at home, mild cough, increased shortness of breath for the past several days -We will need broad-spectrum antibiotics given recent healthcare exposure, continue vancomycin and Zosyn -Respiratory Gram stain and culture -Supportive care -COVID and flu negative but will also get respiratory panel -Not hypoxic -Urine antigens negative -Incentive spirometry, flutter valve, nebs -02/23: Positive rhinovirus, continue supportive care, not requiring O2, continue with nebs #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 -DC'd from TCU 02/15 -Supportive care -Aspirin, Xarelto, statin -PT/OT, case management consult -02/23: Seen by physical therapy, patient require significant amount of assistance, patient for placement #Atrial fibrillation -Xarelto -Does not appear to be on any beta-jess or rate control #Hypertension -Continue home medications and adjust as indicated #Bilateral lymphedema with possible cellulitis -Started on abx 02/18 for LE cellulitis -Hold home Keflex and Doxy, presently on vancomycin and Zosyn -02/23: Continue antibiotics at this time, MRSA swab negative so only on Zosyn, does appear to be improving, does have some chronic changes however #DVT ppx: Fabiola Floyd MD Time spent in the patient's overall evaluation,decision-making process, review of diagnostic data, adjustment of management, discussion with other providers, nursing nursing and ancillary staff involved in patient's care documentation, 45 Minutes Charges/Coding Visit Charges Inpatient E&M: 46224 Subs Hosp L2
--- NOTE | 2023-02-23 16:25 | CASEMGMT ---
Discharge Planning A list of?SNF providers including quality and resource use data and consistent with the patient's preferred geographic region, medical needs, and insurance network was created in [employer] Guide.? This list was provided to the patient. Mary Salcido, Discharge Planning Asst.
[2023-02-23] MEDS: Rivaroxaban 20 MG Tablet PO (17:26)
[2023-02-23] MEDS: Atorvastatin Calcium 40 MG Tablet PO (21:01)
[2023-02-23] MEDS: Albuterol 2.5 MG/3 ML VIAL.NEB. INHALATION (22:32)
[2023-02-24] VITALS (8 sets, daily range): BP systolic 106–136; BP diastolic 60–88; PULSE 60–79; RESP 18–20; TEMP 36.5–37.1; O2SAT 95–98
[2023-02-24] MEDS: Acetaminophen 325 MG Tablet 650 MG PO ×2 (02:19→11:29)
[2023-02-24] MEDS: Piperacil/Tazobactam 3.375 GM in 0.9% Normal Saline (50mL MB+) 50 ML IV (05:50)
[2023-02-24 07:11] LABS: Absolute Lymphocyte Count 0.98 X10^3/uL (0.83-4.51); Absolute Neutrophil Count 4.6 X10^3/uL (2.0-7.7); Basophil# 0.02 X10^3/uL; Basophil% 0.3 % (0-1); Eosinophils% 6.1 % (0-5); Hematocrit 40.4 % (40-54); Hemoglobin 13.5 g/dL (13.0-16.5); Lymphocyte # 0.98 X10^3/ul (0.83-4.51); Lymphocyte % 14.8 % (19-41); Mean Corp Hgb Conc 33.4 g/dL (32-36); Mean Corpuscular Volume 92.9 fL (80-94); Mean Platelet Vol. 9.5 fl (6.2-12.0); Monocyte# 0.63 X10^3/uL; Monocyte% 9.5 % (0-10); NRBC Flagged by Analyzer 0 % (0-5); Neutrophil # 4.56 X10^3/uL (2.7-7.7); Platelet Count 159 K/mm3 (150-450); RBC Distribution Width CV 14.6 % (11.6-14.6); Red Blood Count 4.35 M/mm3 (4.6-6.2); White Blood Count 6.6 K/mm3 (4.4-11.0)
[2023-02-24] MEDS: Gabapentin 100 MG Capsule PO ×3 (07:42→16:47)
[2023-02-24] MEDS: Aspirin 81 MG TAB.CHEW PO (07:42)
[2023-02-24 07:44] LABS: Anion Gap 4 (5-15); BUN 13 mg/dL (7-18); Calcium,Total 8.2 mg/dL (8.5-10.1); Chloride 110 mmol/L (98-107); Creatinine, Serum 0.82 mg/dL (0.70-1.30); EST Glomerular Filtration Rate 99 mL/min (>60); Est Glom Filt Rate - Afr Amer 119 mL/min (>60); Glucose 96 mg/dL (74-106); Potassium 3.6 mmol/L (3.5-5.1); Sodium Level 139 mmol/L (136-145)
--- NOTE | 2023-02-24 08:05 | PN.HOSP_ITS ---
Reason for Visit Reason for Visit: Diagnoses Lymphedema, not elsewhere classified (02/22/23) Pneumonia, unspecified organism (02/22/23) Cellulitis of unspecified part of limb (02/22/23) Subjective Subjective Feeling roughly the same today, shortness of breath unchanged, no acute complaints Objective Data Objective Data Vital Signs: Vital Signs Temp Pulse Resp BP Pulse Ox O2 Del Method O2 Flow Rate 98.3 F 60 20 H 134/88 H 98 Room Air 2 02/24/23 07:55 02/24/23 07:55 02/24/23 07:55 02/24/23 07:55 02/24/23 07:55 02/24/23 07:59 02/24/23 07:26 Oxygen Flow Rate (L/min) 2 Oxygen Delivery Method Room Air Weight: 119.068 kg Body Mass Index (BMI) 42.3 Intake & Output: Intake and Output for Last 24 Hours 02/22/23 02/23/23 02/24/23 23:59 23:59 23:59 Intake Total 1715 / 1715 390 / 690 350 / 350 Output Total 1350 / 1350 580 / 1130 770 / 770 Balance 365 / 365 -190 / -440 -420 / -420 Lab / Micro Data 02/24/23 07:00 02/24/23 07:00 Labs: Laboratory Results - last 24 hr 02/23/23 06:06: Sodium 137, Potassium 3.3 L, Chloride 109 H, Carbon Dioxide 21.0, Anion Gap 7, BUN 15, Creatinine 0.78, Estim Creat Clear Calc 59.37, Est GFR (MDRD) Af Amer 125, Est GFR (MDRD) Non-Af 104, BUN/Creatinine Ratio 19.2, Glucose 90, Calcium 8.1 L 02/24/23 07:00: WBC 6.6, RBC 4.35 L, Hgb 13.5, Hct 40.4, MCV 92.9, MCH 31.0, MCHC 33.4, RDW Std Deviation 50.0 H, RDW Coeff of Naz 14.6, Plt Count 159, MPV 9.5, Immature Gran % (Auto) 0.300, Neut % (Auto) 69.0, Lymph % (Auto) 14.8 L, [place] % (Auto) 9.5, Eos % (Auto) 6.1 H, Baso % (Auto) 0.3, Absolute Neuts (auto) 4.6, Absolute Lymphs (auto) 0.98, Nucleated RBC % 0, Sodium 139, Potassium 3.6, Chloride 110 H, Carbon Dioxide 25.0, Anion Gap 4 L, BUN 13, Creatinine 0.82, Estim Creat Clear Calc 72.40, Est GFR (MDRD) Af Amer 119, Est GFR (MDRD) Non-Af 99, BUN/Creatinine Ratio 16.0, Glucose 96, Calcium 8.2 L Micro: Microbiology 02/22/23 12:44 Sputum, Expectorated/Coughed Gram Stain - Final 02/21/23 22:49 Urine, Clean Catch Urine Culture - Final Culture exhibits no growth. 02/22/23 10:15 Mucosa - Nasopharyngeal Respiratory Panel (PCR) - Final Rhinovirus 02/21/23 22:49 Urine, Clean Catch Legionella Antigen - Final 02/21/23 22:49 Urine, Clean Catch Streptococcus pneumoniae Antigen (M - Final 02/21/23 22:49 Nasal Secretion SARS-CoV-2 & FLU Antigen (Rapid) - Final Physical Exam Narrative General: Alert, oriented, no apparent distress HEENT: Atraumatic, normocephalic Eyes: Anicteric, normal conjunctiva, extraocular movements grossly intact Neck: Supple Respiratory: Fairly normal respiratory effort, diminished at bases, scattered w heezes Cardiovascular: Regular rate GI: Soft, nontender, nondistended Extremities: No edema Musculoskeletal: Moving all extremities Neuro: No overt focal neurological deficits Skin: Has some erythema bilateral lower extremities that is marked as well as some chronic skin changes, also has nail breakdown and scaling on feet Psych: Cooperative Assessment & Plan Assessment/Plan (1) Pneumonia: QUALIFIERS: Laterality: bilateral Lung location: unspecified part of lung Pneumonia type: due to unspecified organism Qualified Code(s): J18.9 - Pneumonia, unspecified organism (2) Cellulitis: QUALIFIERS: Laterality: unspecified laterality Site of cellulitis: extremity Site of cellulitis of extremity: lower extremity Qualified Code(s): L03.119 - Cellulitis of unspecified part of limb (3) Lymphedema: PLAN: Plan #Pneumonia-viral pneumonia, positive rhinovirus -Febrile with temp of 102 at home, mild cough, increased shortness of breath for the past several days -We will need broad-spectrum antibiotics given recent healthcare exposure, continue vancomycin and Zosyn -Respiratory Gram stain and culture -Supportive care -COVID and flu negative but will also get respiratory panel -Not hypoxic -Urine antigens negative -Incentive spirometry, flutter valve, nebs -02/23: Positive rhinovirus, continue supportive care, not requiring O2, continue with nebs -02/24: Not hypoxic, continue supportive care, patient to need placement #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 -DC'd from TCU 02/15 -Supportive care -Aspirin, Xarelto, statin -PT/OT, case management consult -02/23: Seen by physical therapy, patient require significant amount of assistance, patient for placement -02/24: Worked with therapy and patient recommended for SNF, will pursue placement #Atrial fibrillation -Xarelto -Does not appear to be on any beta-jess or rate control #Hypertension -Continue home medications and adjust as indicated #Bilateral lymphedema with possible cellulitis -Started on abx 02/18 for LE cellulitis -Hold home Keflex and Doxy, presently on vancomycin and Zosyn -02/23: Continue antibiotics at this time, MRSA swab negative so only on Zosyn, does appear to be improving, does have some chronic changes however -02/24: Do not think patient has bacterial pneumonia and MRSA swab negative, will change antibiotics from Zosyn to cefazolin for cellulitis #DVT ppx: Fabiola Floyd MD Time spent in the patient's overall evaluation,decision-making process, review of diagnostic data, adjustment of management, discussion with other providers, nursing nursing and ancillary staff involved in patient's care documentation, 35 Minutes Charges/Coding Visit Charges Inpatient E&M: 01125 Subs Hosp L2
--- NOTE | 2023-02-24 11:06 | CASEMGMT ---
Social Work SW spoke w/pt and pt's son Naeem in room in regard to chcf choices. TCU is their first choice, and [facility] is the second choice. SW explained will start w/TCU and SW to follow up w/him on Sunday. SW called TCU, message left regarding referral. SW will continue to follow. CLINT Kraft
[2023-02-24] MEDS: Miconazole Nitrate 43 GM Bottle 1 APPLIC TOPICAL ×2 (11:26→19:34)
[2023-02-24] MEDS: Losartan Potassium 100 MG Tablet 50 MG PO (11:27)
[2023-02-24] MEDS: Menthol/Lanolin/Calamine/Znox 113 GM Tube 1 APPLIC TOPICAL ×2 (11:27→19:35)
[2023-02-24] MEDS: guaiFENesin 600 MG Tablet PO ×2 (11:28→19:30)
[2023-02-24] MEDS: amLODIPine 10 MG Tablet PO (11:28)
[2023-02-24] MEDS: Cefazolin 2 GM in 0.9% Normal Saline (100mL Bag) 100 ML IV ×2 (12:00→19:30)
[2023-02-24] MEDS: Rivaroxaban 20 MG Tablet PO (16:47)
[2023-02-24] MEDS: 0.9% Saline Lock 10 ML Syringe IV ×2 (16:47→19:30)
[2023-02-24] MEDS: Atorvastatin Calcium 40 MG Tablet PO (19:30)
[2023-02-25] MEDS: Acetaminophen 325 MG Tablet 650 MG PO (00:01)
[2023-02-25 01:57] VITALS: BP 116/72; PULSE 70; RESP 16; TEMP 36.8; O2SAT 98
[2023-02-25] MEDS: Cefazolin 2 GM in 0.9% Normal Saline (100mL Bag) 100 ML IV ×3 (05:11→20:39)
[2023-02-25 05:55] LABS: Absolute Lymphocyte Count 1.17 X10^3/uL (0.83-4.51); Absolute Neutrophil Count 4.8 X10^3/uL (2.0-7.7); Basophil# 0.03 X10^3/uL; Basophil% 0.4 % (0-1); Eosinophil# 0.61 X10^3/uL; Eosinophils% 8.4 % (0-5); Hematocrit 39.7 % (40-54); Hemoglobin 13.3 g/dL (13.0-16.5); Lymphocyte # 1.17 X10^3/ul (0.83-4.51); Lymphocyte % 16.2 % (19-41); Mean Corp Hgb Conc 33.5 g/dL (32-36); Mean Corpuscular Hgb 30.9 pg (27.0-32.0); Mean Corpuscular Volume 92.3 fL (80-94); Mean Platelet Vol. 9.6 fl (6.2-12.0); Monocyte# 0.57 X10^3/uL; Monocyte% 7.9 % (0-10); NRBC Flagged by Analyzer 0 % (0-5); Neutrophil # 4.83 X10^3/uL (2.7-7.7); Neutrophil % 66.8 % (47-70); Platelet Count 170 K/mm3 (150-450); RBC Distribution Width CV 14.6 % (11.6-14.6); RBC Distribution Width SD 49.1 fl (35.1-43.9); White Blood Count 7.2 K/mm3 (4.4-11.0)
[2023-02-25 06:27] LABS: Anion Gap 7 (5-15); BUN 13 mg/dL (7-18); BUN/Creat Ratio 17.4 RATIO (10-20); Calcium,Total 8.3 mg/dL (8.5-10.1); Chloride 110 mmol/L (98-107); Creatinine, Serum 0.75 mg/dL (0.70-1.30); EST Glomerular Filtration Rate 109 mL/min (>60); Est Glom Filt Rate - Afr Amer 132 mL/min (>60); Estimated Creatinine Clearance 59.37 ml/min; Glucose 87 mg/dL (74-106); Potassium 3.1 mmol/L (3.5-5.1); Sodium Level 138 mmol/L (136-145)
--- NOTE | 2023-02-25 07:24 | PN.HOSP_ITS ---
Reason for Visit Reason for Visit: Diagnoses Lymphedema, not elsewhere classified (02/22/23) Pneumonia, unspecified organism (02/22/23) Cellulitis of unspecified part of limb (02/22/23) Subjective Subjective Patient reports he thinks his breathing is slightly better, Feels his legs are little bit swollen but they are somewhat on an angle down in bed Objective Data Objective Data Vital Signs: Vital Signs Temp Pulse Resp BP Pulse Ox O2 Del Method O2 Flow Rate 98.2 F 70 16 116/72 98 Room Air 2 02/25/23 01:57 02/25/23 01:57 02/25/23 01:57 02/25/23 01:57 02/25/23 01:57 02/25/23 01:59 02/24/23 07:26 Oxygen Flow Rate (L/min) 2 Oxygen Delivery Method Room Air Weight: 119.068 kg Body Mass Index (BMI) 42.3 Intake & Output: Intake and Output for Last 24 Hours 02/23/23 02/24/23 02/25/23 23:59 23:59 23:59 Intake Total 390 / 690 620 / 620 110 / 110 Output Total 580 / 1130 1320 / 1770 750 / 750 Balance -190 / -440 -700 / -1150 -640 / -640 Lab / Micro Data 02/25/23 05:35 02/25/23 05:35 Labs: Laboratory Results - last 24 hr 02/24/23 07:00: Sodium 139, Potassium 3.6, Chloride 110 H, Carbon Dioxide 25.0, Anion Gap 4 L, BUN 13, Creatinine 0.82, Estim Creat Clear Calc 72.40, Est GFR (MDRD) Af Amer 119, Est GFR (MDRD) Non-Af 99, BUN/Creatinine Ratio 16.0, Glucose 96, Calcium 8.2 L 02/25/23 05:35: WBC 7.2, RBC 4.30 L, Hgb 13.3, Hct 39.7 L, MCV 92.3, MCH 30.9, MCHC 33.5, RDW Std Deviation 49.1 H, RDW Coeff of Naz 14.6, Plt Count 170, MPV 9.6, Immature Gran % (Auto) 0.300, Neut % (Auto) 66.8, Lymph % (Auto) 16.2 L, [place] % (Auto) 7.9, Eos % (Auto) 8.4 H, Baso % (Auto) 0.4, Absolute Neuts (auto) 4.8, Absolute Lymphs (auto) 1.17, Nucleated RBC % 0, Sodium 138, Potassium 3.1 L , Chloride 110 H, Carbon Dioxide 21.0, Anion Gap 7, BUN 13, Creatinine 0.75, Estim Creat Clear Calc 59.37, Est GFR (MDRD) Af Amer 132, Est GFR (MDRD) Non-Af 109, BUN/Creatinine Ratio 17.4, Glucose 87, Calcium 8.3 L Micro: Microbiology 02/21/23 23:05 Blood Culture (Wb) - Anticubital Left Blood Culture - Preliminary No growth in 48 hours. 02/21/23 23:16 Blood Culture (Wb) - Anticubital Right Blood Culture - Preliminary No growth in 48 hours. 02/22/23 12:44 Sputum, Expectorated/Coughed Gram Stain - Final 02/22/23 12:44 Sputum, Expectorated/Coughed Respiratory Culture - Final Mixed normal respiratory joshua. No Streptococcus pneumoniae, beta-hemolytic Streptococcus or Staphylococcus aureus isolated. 02/21/23 22:49 Urine, Clean Catch Urine Culture - Final Culture exhibits no growth. 02/22/23 10:15 Mucosa - Nasopharyngeal Respiratory Panel (PCR) - Final Rhinovirus 02/21/23 22:49 Urine, Clean Catch Legionella Antigen - Final 02/21/23 22:49 Urine, Clean Catch Streptococcus pneumoniae Antigen (M - Final 02/21/23 22:49 Nasal Secretion SARS-CoV-2 & FLU Antigen (Rapid) - Final Physical Exam Narrative General: Alert, oriented, no apparent distress HEENT: Atraumatic, normocephalic Eyes: Anicteric, normal conjunctiva, extraocular movements grossly intact Neck: Supple Respiratory: Fairly normal respiratory effort, diminished at bases, scattered wheezes Cardiovascular: Regular rate GI: Soft, nontender, nondistended Extremities: No edema Musculoskeletal: Moving all extremities Neuro: No overt focal neurological deficits Skin: Has some erythema bilateral lower extremities that is marked as well as so me chronic skin changes, also has nail breakdown and scaling on feet, right leg still very mildly warm, left leg not warm to touch Psych: Cooperative Assessment & Plan Assessment/Plan (1) Pneumonia: QUALIFIERS: Laterality: bilateral Lung location: unspecified part of lung Pneumonia type: due to unspecified organism Qualified Code(s): J18.9 - Pneumonia, unspecified organism (2) Cellulitis: QUALIFIERS: Laterality: unspecified laterality Site of cellulitis: extremity Site of cellulitis of extremity: lower extremity Qualified Code(s): L03.119 - Cellulitis of unspecified part of limb (3) Lymphedema: PLAN: Plan #Pneumonia-viral pneumonia, positive rhinovirus -Febrile with temp of 102 at home, mild cough, increased shortness of breath for the past several days -We will need broad-spectrum antibiotics given recent healthcare exposure, continue vancomycin and Zosyn -Respiratory Gram stain and culture -Supportive care -COVID and flu negative but will also get respiratory panel -Not hypoxic -Urine antigens negative -Incentive spirometry, flutter valve, nebs -02/23: Positive rhinovirus, continue supportive care, not requiring O2, continue with nebs -02/24: Not hypoxic, continue supportive care, patient to need placement -02/25: Patient routinely refusing nebs today been made as needed, continue supportive care #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 -DC'd from TCU 02/15 -Supportive care -Aspirin, Xarelto, statin -PT/OT, case management consult -02/23: Seen by physical therapy, patient require significant amount of assistance, patient for placement -02/24: Worked with therapy and patient recommended for SNF, will pursue placement -02/25: Awaiting SNF acceptance and insurance #Atrial fibrillation -Xarelto -Does not appear to be on any beta-jess or rate control -02/25: Heart rate has been within normal limits #Hypertension -Continue home medications and adjust as indicated -02/25: Fairly well controlled #Bilateral lymphedema with possible cellulitis -Started on abx 02/18 for LE cellulitis -Hold home Keflex and Doxy, presently on vancomycin and Zosyn -02/23: Continue antibiotics at this time, MRSA swab negative so only on Zosyn, does appear to be improving, does have some chronic changes however -02/24: Do not think patient has bacterial pneumonia and MRSA swab negative, w ill change antibiotics from Zosyn to cefazolin for cellulitis #DVT ppx: Fabiola Floyd MD Time spent in the patient's overall evaluation,decision-making process, review of diagnostic data, adjustment of management, discussion with other providers, nursing nursing and ancillary staff involved in patient's care documentation, 30 Minutes Charges/Coding Visit Charges Inpatient E&M: 27097 Subs Hosp L1
[2023-02-25 08:47] VITALS: BP 136/86; PULSE 58; RESP 20; TEMP 36.7; O2SAT 94
[2023-02-25] MEDS: Losartan Potassium 100 MG Tablet 50 MG PO (08:56)
[2023-02-25] MEDS: amLODIPine 10 MG Tablet PO (08:56)
[2023-02-25] MEDS: Aspirin 81 MG TAB.CHEW PO (08:56)
[2023-02-25] MEDS: Miconazole Nitrate 43 GM Bottle 1 APPLIC TOPICAL ×2 (08:57→20:40)
[2023-02-25] MEDS: Menthol/Lanolin/Calamine/Znox 113 GM Tube 1 APPLIC TOPICAL ×2 (08:57→20:40)
[2023-02-25] MEDS: guaiFENesin 600 MG Tablet PO ×2 (08:57→20:39)
[2023-02-25] MEDS: Gabapentin 100 MG Capsule PO ×3 (09:00→17:09)
[2023-02-25] MEDS: Potassium Chloride Oral Tablet 20 MEQ 60 MEQ PO (09:00)
[2023-02-25 15:44] VITALS: BP 137/84; PULSE 75; RESP 20; TEMP 36.3; O2SAT 96
[2023-02-25] MEDS: Rivaroxaban 20 MG Tablet PO (17:09)
[2023-02-25] MEDS: MELATONIN 3 MG TABLET PO (20:39)
[2023-02-25] MEDS: Atorvastatin Calcium 40 MG Tablet PO (20:39)
[2023-02-25 20:57] VITALS: BP 134/73; PULSE 77; RESP 20; TEMP 36.9; O2SAT 98
[2023-02-25 21:10] VITALS: PULSE 70; RESP 20
[2023-02-25] MEDS: Ipratropium/Albuterol Sulfate 3 ML AMPUL.NEB INHALATION (21:10)
[2023-02-26 02:16] VITALS: BP 118/86; PULSE 61; RESP 18; TEMP 36.1; O2SAT 100
[2023-02-26] MEDS: Acetaminophen 325 MG Tablet 650 MG PO (03:23)
[2023-02-26] MEDS: Cefazolin 2 GM in 0.9% Normal Saline (100mL Bag) 100 ML IV ×2 (05:29→14:29)
[2023-02-26 06:07] LABS: Absolute Lymphocyte Count 1.31 X10^3/uL (0.83-4.51); Absolute Neutrophil Count 4.9 X10^3/uL (2.0-7.7); Basophil# 0.02 X10^3/uL; Basophil% 0.3 % (0-1); Eosinophils% 8.2 % (0-5); Hematocrit 39.7 % (40-54); Hemoglobin 13.1 g/dL (13.0-16.5); Lymphocyte # 1.31 X10^3/ul (0.83-4.51); Lymphocyte % 17.8 % (19-41); Mean Corpuscular Hgb 30.9 pg (27.0-32.0); Mean Corpuscular Volume 93.6 fL (80-94); Mean Platelet Vol. 9.9 fl (6.2-12.0); Monocyte# 0.54 X10^3/uL; Monocyte% 7.3 % (0-10); NRBC Flagged by Analyzer 0 % (0-5); Neutrophil # 4.85 X10^3/uL (2.7-7.7); Platelet Count 177 K/mm3 (150-450); RBC Distribution Width CV 14.6 % (11.6-14.6); RBC Distribution Width SD 49.9 fl (35.1-43.9); Red Blood Count 4.24 M/mm3 (4.6-6.2); White Blood Count 7.4 K/mm3 (4.4-11.0)
[2023-02-26 07:00] LABS: Anion Gap 6 (5-15); BUN 11 mg/dL (7-18); BUN/Creat Ratio 16.6 RATIO (10-20); Calcium,Total 8.4 mg/dL (8.5-10.1); Chloride 110 mmol/L (98-107); Creatinine, Serum 0.66 mg/dL (0.70-1.30); EST Glomerular Filtration Rate 125 mL/min (>60); Est Glom Filt Rate - Afr Amer 151 mL/min (>60); Estimated Creatinine Clearance 59.37 ml/min; Glucose 87 mg/dL (74-106); Potassium 3.3 mmol/L (3.5-5.1); Sodium Level 140 mmol/L (136-145)
[2023-02-26 07:29] VITALS: PULSE 62; RESP 16; O2SAT 96
[2023-02-26] MEDS: Ipratropium/Albuterol Sulfate 3 ML AMPUL.NEB INHALATION ×2 (07:29→15:42)
[2023-02-26 08:06] VITALS: BP 110/63; PULSE 71; RESP 16; TEMP 36.6; O2SAT 98
[2023-02-26] MEDS: Aspirin 81 MG TAB.CHEW PO (08:25)
[2023-02-26] MEDS: Gabapentin 100 MG Capsule PO ×3 (08:25→16:20)
[2023-02-26] MEDS: Menthol/Lanolin/Calamine/Znox 113 GM Tube 1 APPLIC TOPICAL (08:26)
[2023-02-26] MEDS: Potassium Chloride Oral Tablet 20 MEQ 40 MEQ PO (08:26)
[2023-02-26] MEDS: Miconazole Nitrate 43 GM Bottle 1 APPLIC TOPICAL (08:27)
[2023-02-26] MEDS: Losartan Potassium 100 MG Tablet 50 MG PO (08:27)
[2023-02-26] MEDS: guaiFENesin 600 MG Tablet PO (08:28)
[2023-02-26] MEDS: amLODIPine 10 MG Tablet PO (08:28)
--- NOTE | 2023-02-26 10:04 | CASEMGMT ---
Addendum entered by Batsheva Campbell 02/26/23 11:16: JESSIE notified patient that TCU can take patient at discharge pending insurance approval. Batsheva ANTUNEZ Original Note: TCU accepted patient and pre-cert request has been initiated. Plan: d/c to [facility] TCU pending insurance approval. Batsheva ANTUNEZ
--- NOTE | 2023-02-26 13:01 | CASEMGMT ---
Patient was approved for [facility] TCU. SW notified physician. Batsheva ANTUNEZ
[2023-02-26 14:23] VITALS: BP 123/86; PULSE 80; RESP 16; TEMP 36.3; O2SAT 97
[2023-02-26] MEDS: 0.9% Saline Lock 10 ML Syringe IV (14:29)
--- NOTE | 2023-02-26 14:32 | PCM.TXEXTCAR ---
Diet Diet Order/Speech Therapy: 02/22/23 04:57 Diet: Cardiac - Heart Healthy Food consistency:: Easy to Chew Liquid Consistency:: Regular/Thin Diet Comments: Direct sup, SMALL SIPS/BITES, no straws per pt preference Routine Orders/Code Status Enema Type: Fleetz Enema Frequency: Daily PRN Suppository Type: Dulcolax 10mg Suppository Frequency: Daily PRN O2 Frequency: PRN Keep PO Greater than or Equal to (%): 90 Wound(s) RIGHT LOWER LEG: Wound Type: CELLULITIS LEFT LOWER EXTREMITY: Wound Type: CELLULITIS Therapies Weight Bearing: Weight bearing as tolerated Physical Therapy: Eval and Treat Occupational Therapy: Eval and Treat Problem/Diagnosis (1) Pneumonia: Status: Acute Code(s): J18.9 - Pneumonia, unspecified organism (2) Cellulitis: Status: Acute Code(s): L03.90 - Cellulitis, unspecified (3) Lymphedema: Status: Acute Code(s): I89.0 - Lymphedema, not elsewhere classified Allergies/Procedures Done in Hospital Allergies apixaban [From Eliquis] Adverse Reaction (Intermediate, Verified 01/18/23 14:28) Wet the bed: found out later had UTI MAKES SICK ON HIS STOMACH ibuprofen [From Motrin] Adverse Reaction (Verified 01/18/23 14:28) Nausea Type of Care/Length of Stay Estimated LOS: Convalescent Care Less Than 30 days Type of Care Needed: Skilled Rehab Potential: Fair Prognosis: Fair Additional Orders/Day of Discharge Day of Discharge: 02/26/23 Dietary and Speech Recommendations Dietitian Recommendations/Changes: Continue cardiac diet to manage medical conditions. Discharge Plan Admission Admit Date/Time: 02/22/23 02:47 Primary Reason for Your Visit: Viral pneumonia due to rhinovirus infection Attending Provider: Melissa Torres Primary Care Provider: Shanda Jensen NP Consulting Providers: Mitch Lynne; Mahnaz Floyd Instructions Patient Instructions: Understanding the Cold Virus Discharge Orders/Prescriptions Prescriptions: New cephalexin 500 mg capsule 500 mg PO TID Qty: 15 0RF Continued Xarelto 20 mg Tablet 20 mg PO DINNER Qty: 0 0RF aspirin 81 mg Tablet,Chewable 81 mg PO BREAKFAST Qty: 0 0RF atorvastatin 40 mg Tablet 40 mg PO QHS 30 Days Qty: 30 0RF acetaminophen 500 mg Tablet 1,000 mg PO Q8 Qty: 0 0RF amlodipine 10 mg Tablet 10 mg PO DAILY 30 Days Qty: 30 0RF gabapentin 100 mg Capsule 100 mg PO TIDCM 30 Days Qty: 90 0RF losartan 100 mg Tablet 100 mg PO DAILY 30 Days Qty: 30 0RF oxycodone 5 mg Tablet 5 mg PO Q4H PRN PRN (Reason: Pain Score 6-10) 7 Days Qty: 42 0RF potassium chloride 20 mEq tablet extended release 20 meq PO BID Rx Instructions: take with food Referrals / Follow Up: Shanda Jensen NP, MEASUREMENT ADVISOR-C [Primary Care Provider] - Within 2 Weeks Disposition Disposition (needs filled in before D/C Order can be placed): Group Home Facility (1) Pneumonia Qualifiers: Pneumonia type: due to unspecified organism Laterality: bilateral Lung location: unspecified part of lung Qualified Code(s): J18.9 - Pneumonia, unspecified organism (2) Cellulitis Qualifiers: Site of cellulitis: extremity Site of cellulitis of extremity: lower extremity Laterality: unspecified laterality Qualified Code(s): L03.119 - Cellulitis of unspecified part of limb
--- NOTE | 2023-02-26 14:33 | DS.PCM_ITS ---
Providers Date of Admission: 02/22/23 Date of Discharge: 02/26/23 Primary Care Physician: JAVIER Celis Reason For Visit: PNEUMONIA Diagnosis Discharge Diagnosis (1) Pneumonia: Status: Acute Code(s): J18.9 - Pneumonia, unspecified organism Qualifiers: Laterality: bilateral Lung location: unspecified part of lung Pneumonia type: due to unspecified organism Qualified Code(s): J18.9 - Pneumonia, unspecified organism (2) Cellulitis: Status: Acute Code(s): L03.90 - Cellulitis, unspecified Qualifiers: Laterality: unspecified laterality Site of cellulitis: extremity Site of cellulitis of extremity: lower extremity Qualified Code(s): L03.119 - Cellulitis of unspecified part of limb (3) Lymphedema: Status: Acute Code(s): I89.0 - Lymphedema, not elsewhere classified Medications at Discharge Home Medications rivaroxaban 20 mg tablet (Xarelto) 20 mg PO DINNER BLOOD THINNER #0 tabs 0 12/28/21 aspirin 81 mg chewable tablet 81 mg PO BREAKFAST blood thinner #0 tabs 01/31/23 acetaminophen 500 mg tablet 1,000 mg (2 x 500 mg) PO Q8 pain/fever #0 tabs 02/15/23 amlodipine 10 mg tablet 10 mg PO DAILY 30 days #30 tabs 02/15/23 atorvastatin 40 mg tablet 40 mg PO QHS 30 days #30 tabs 02/15/23 gabapentin 100 mg capsule 100 mg PO TIDCM 30 days #90 caps 02/15/23 losartan 100 mg tablet 100 mg PO DAILY 30 days #30 tabs 02/15/23 oxycodone 5 mg tablet 5 mg PO Q4H PRN PRN Pain Score 6-10 7 days #42 tabs 02/15/23 potassium chloride 20 mEq tablet,extended release 20 meq PO BID 02/22/23 cephalexin 500 mg capsule 500 mg PO TID #15 caps 02/26/23 Hospital Course Operations None Procedures None Summary of Care Provided Minutes Spent on Discharge: 55 Hospital Course: Patient is a 72-year-old male with a past medical history as outlined who was admitted from home on 02/22/2023 with a complaint of fever. He had recently b een admitted to [facility] and discharged on 02/15/2023 for acute left CVA with right hemiplegia. He was subsequently sent to the transitional care unit and from there was discharged home. He presented from home with the above-mentioned symptoms. He had been placed on doxycycline and Keflex for cellulitis of lower extremities in the setting of chronic lymphedema at the time of his discharge from transitional care unit. On admission complaint of fever with associated shortness of breath and cough productive of occasional brown sputum. Chest x-ray showed developing perihilar infiltrates.He was admitted and managed for pneumonia presumed community-acquired. He was started on vancomycin and Zosyn in the ED. He was also managed for cellulitis of the lower extremities. Respiratory panel was positive for rhinovirus and respiratory culture grew mixed normal joshua with no strep pneumonia, beta- hemolytic strep or Staph aureus isolated. His shortness of breath improved and he felt better. He was weaned to room air. He remained stable and was discharged to long-term facility on 02/26/2023. He was discharged on a course of PO keflex for 5 days. He is to follow up with his PCP within 1-2 weeks. Patient seen and examined prior to discharge. He had no complaints and had an uneventful night. Review of systems otherwise negative. Labs and vitals reviewed. Home medication reviewed and reconciled. Physical Exam Const alert, oriented x3 and no apparent distress General Appearance: cooperative, comfortable and well kempt Orientation / Consciousness: awake Exam Limitations: no limitations HEENT normocephalic, head/scalp atraumatic, hearing grossly normal bilaterally and moist oral mucous membranes Mouth: oral and palatal mucosa normal Eyes PERRL, EOMs intact bilaterally and conjunctivae normal Resp Resp Narrative: mildly diminished breath sounds bilaterally, no wheezes or crackles. On room air. Cardio regular rate, regular rhythm, S1 normal heart sound, S2 normal heart sound and no murmurs GI normal to inspection, nondistended, normoactive bowel sounds, soft to palpation, non-tender and non-distended Extremity normal to inspection, full ROM and no clubbing, cyanosis or edema Skin no rashes or lesions noted and no wounds Neuro oriented x3, CN's II-XII intact bilaterally, moves all extremities and no focal motor deficits Sensorium / Orientation: awake and alert Motor Exam: strength 5/5 throughout Psych affect normal Weight / BMI Weight Weight: 262 lb 8 oz Body Mass Index (BMI) 42.3 ABG / Lab / Microbiology Data 02/26/23 05:01 02/26/23 05:01 Laboratory: Laboratory Results - last 24 hr 02/26/23 05:01: WBC 7.4, RBC 4.24 L, Hgb 13.1, Hct 39.7 L, MCV 93.6, MCH 30.9, MCHC 33.0, RDW Std Deviation 49.9 H, RDW Coeff of Naz 14.6, Plt Count 177, MPV 9.9, Immature Gran % (Auto) 0.400, Neut % (Auto) 66.0, Lymph % (Auto) 17.8 L, Mckenzie % (Auto) 7.3, Eos % (Auto) 8.2 H, Baso % (Auto) 0.3, Absolute Neuts (auto) 4.9, Absolute Lymphs (auto) 1.31, Nucleated RBC % 0, Sodium 140, Potassium 3.3 L , Chloride 110 H, Carbon Dioxide 24.0, Anion Gap 6, BUN 11, Creatinine 0.66 L, Estim Creat Clear Calc 59.37, Est GFR (MDRD) Af Amer 151, Est GFR (MDRD) Non-Af 125, BUN/Creatinine Ratio 16.6, Glucose 87, Calcium 8.4 L Microbiology: Microbiology 02/21/23 23:05 Blood Culture (Wb) - Anticubital Left Blood Culture - Preliminary No growth in 48 hours. 02/21/23 23:16 Blood Culture (Wb) - Anticubital Right Blood Culture - Preliminary No growth in 48 hours. 02/22/23 12:44 Sputum, Expectorated/Coughed Gram Stain - Final 02/22/23 12:44 Sputum, Expectorated/Coughed Respiratory Culture - Final Mixed normal respiratory joshua. No Streptococcus pneumoniae, beta-hemolytic Streptococcus or Staphylococcus aureus isolated. 02/21/23 22:49 Urine, Clean Catch Urine Culture - Final Culture exhibits no growth. 02/22/23 10:15 Mucosa - Nasopharyngeal Respiratory Panel (PCR) - Final Rhinovirus 02/21/23 22:49 Urine, Clean Catch Legionella Antigen - Final 02/21/23 22:49 Urine, Clean Catch Streptococcus pneumoniae Antigen (M - Dede l 02/21/23 22:49 Nasal Secretion SARS-CoV-2 & FLU Antigen (Rapid) - Final D/C Instructions Discharge Diet: Low fat / Low cholesterol Discharge Activity: Return to Normal Activity Weight Bearing Status: Weight bearing as tolerated Call your doctor if you observe: Fever of 101 or Higher, Shortness of breath, Dizziness, Swelling in the ankles and Chest pain Meaningful Use Info Meaningful Use Diagnoses (Choose all that apply): None applicable Discharge Plan Admission Admit Date/Time: 02/22/23 02:47 Primary Reason for Your Visit: Viral pneumonia due to rhinovirus infection Attending Provider: Melissa Torres Primary Care Provider: Shanda Jensen NP Consulting Providers: Mitch Lynne; Mahnaz Floyd Instructions Patient Instructions: Understanding the Cold Virus Discharge Orders/Prescriptions Prescriptions: New cephalexin 500 mg capsule 500 mg PO TID Qty: 15 0RF Continued Xarelto 20 mg Tablet 20 mg PO DINNER Qty: 0 0RF aspirin 81 mg Tablet,Chewable 81 mg PO BREAKFAST Qty: 0 0RF atorvastatin 40 mg Tablet 40 mg PO QHS 30 Days Qty: 30 0RF acetaminophen 500 mg Tablet 1,000 mg PO Q8 Qty: 0 0RF amlodipine 10 mg Tablet 10 mg PO DAILY 30 Days Qty: 30 0RF gabapentin 100 mg Capsule 100 mg PO TIDCM 30 Days Qty: 90 0RF losartan 100 mg Tablet 100 mg PO DAILY 30 Days Qty: 30 0RF oxycodone 5 mg Tablet 5 mg PO Q4H PRN PRN (Reason: Pain Score 6-10) 7 Days Qty: 42 0RF potassium chloride 20 mEq tablet extended release 20 meq PO BID Rx Instructions: take with food Referrals / Follow Up: Shanda Jensen NP, VOCAL PERFORMER-C [Primary Care Provider] - Within 2 Weeks Disposition Disposition (needs filled in before D/C Order can be placed): Assisted Facility Charges/Coding Visit Charges Inpatient E&M: 48734 Disch Hosp >30min
[2023-02-26 15:46] VITALS: PULSE 60; RESP 16
--- NOTE | 2023-02-26 16:13 | NURSING ---
1613 Report called to Brigette HERNANDEZ, pt will be going to 12
[2023-02-26] MEDS: Rivaroxaban 20 MG Tablet PO (16:20)
== END 2023-02-26 16:45 | disposition skilled nursing facility (03) | DRG 194 ==
LOC: ED 02-22 01:19 → MS2 02-22 03:48 → PCU 02-26 07:20
PROVIDERS: Internal Medicine; Admitting Provider Hospitalist; Emergency Provider Emergency Medicine; PCP Nurse Practitioner Family; Visit Provider Student in an Organized Health Care Education/Training Program
DX: J12.89 Other viral pneumonia (principal); L03.115 Cellulitis of right lower limb; I69.951 Hemiplegia and hemiparesis following unspecified cerebrovascular disease affecting right dominant side; L03.116 Cellulitis of left lower limb; I48.91 Unspecified atrial fibrillation; I10 Essential (primary) hypertension; I89.0 Lymphedema, not elsewhere classified; B97.89 Other viral agents as the cause of diseases classified elsewhere
CPT/HCPCS: 36415; 71045; 80048; 80053; 80202; 81001; 83605; 83880; 85025; 85610; 85730; 87040; 87070; 87086; 87205; 87428; 87449; 87633; 87641; 92526; 92610; 93005; 94640; 94668; 97110; 97116; 97162; 97166; 97530; 97535; 97802; 99252; 99285; J7030; J7040; J7050; A4216; G0463

== ENCOUNTER 2023-02-26 16:50 | Inpatient (IN) | payer MEDICARE, SELFPAY ==
[2023-02-26 17:00] VITALS: BP 120/71; PULSE 75; RESP 18; TEMP 36.2; O2SAT 97
[2023-02-26 17:12] VITALS: PULSE 76; RESP 15; O2SAT 96
[2023-02-26 17:26] VITALS: BMI 41.9
[2023-02-26] MEDS: Gabapentin 100 MG Capsule PO (18:38)
--- NOTE | 2023-02-26 19:42 | HP.PCM_ITS ---
HPI - General General Date of Admission: 02/26/23 Date of Service: 02/26/23 Chief Complaint: Here for rehabilitation. HPI Narrative 02/21/2023 TURNER YAN, is a 72 Male who presents to [facility] Emergency Department with shortness of breath. EMS shortness of breath, fever 102, short of breath x 2 days, mild cough. Temp 99.8, Tylenol given, on Keflex/Doxycycline for bilateral lower extremity cellulitis. WBC 8.6 with left shift, INR 2, urinalysis negative for infection. EKG atrial fibrillation, covid negative, flu negative. Chest X-ray showed pneumonia. Zosyn, Vancomycin given for pneumonia, bilateral lower extremity cellulitis. 02/22/2023 Admit to [facility]. Vancomycin, Zosyn for pneumonia, bilateral lower extremity cellulitis. PT/OT for debility. 02/22/2023 Urine antigens negative for legionella, negative strep. Order Respiratory panel. 02/23/2023 Feeling same, still short of breath. +Rhinovirus. Continue Vancomycin, Zosyn for pneumonia, off oxygen. PT/OT for SNF. MRSA negative, stop Vancomycin, bilateral lower extremity improved with Zosyn. 02/24/2023 Shortness of breath unchanged. Not hypoxic. PT/OT for SNF. Zosyn changed to Cefazolin for bilateral lower extremity cellulitis, pneumonia not bacterial, but viral. 02/25/2023 Breathing slightly better. Refusing nebs today. Awaiting placement. 02/26/2023 Admit to TCU with debility, here for rehabilitation, strengthening, prior to discharge home with son. [facility] Medical History Anomalous origin of coronary artery Arthritis Atherosclerotic heart disease of [place] coronary artery without angina pectoris Atrial fibrillation Benign neoplasm of middle ear, nasal cavity and accessory sinuses BPH (benign prostatic hyperplasia) Cardiac murmur, unspecified Cellulitis of right lower limb Cervical disc disease Chronic venous stasis dermatitis of both lower extremities CPAP (continuous positive airway pressure) dependence CVA (cerebral vascular accident) Deep venous thrombosis Dyspnea on minimal exertion Essential (primary) hypertension Former smoker FTT (failure to thrive) in adult GERD (gastroesophageal reflux disease) Hyperglycemia Hyperlipidemia Leg pain Low back pain Lymphedema Lymphedema of both lower extremities New onset atrial fibrillation (03/24/20) 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 Obesity ANDREE (obstructive sleep apnea) Pain in right lower leg Pain of left great toe Pain of left lower extremity due to injury Rotator cuff tear arthropathy of right shoulder Skin ulcer of left great toe with fat layer exposed Sleep apnea Toe ulcer Traumatic hematoma of left lower leg Venous insufficiency Home Medications rivaroxaban 20 mg tablet (Xarelto) 20 mg PO DINNER BLOOD THINNER #0 tabs 12/28/21 [Rx Last Taken 02/25/23] aspirin 81 mg chewable tablet 81 mg PO BREAKFAST blood thinner #0 tabs 01/31/23 [Rx Last Taken 02/26/23] acetaminophen 500 mg tablet 1,000 mg (2 x 500 mg) PO Q8 pain/fever #0 tabs 02/15/23 [Rx Last Taken Unknown] amlodipine 10 mg tablet 10 mg PO DAILY blood pressure 30 days #30 tabs 02/15/23 [Rx Last Taken 02/26/23] atorvastatin 40 mg tablet 40 mg PO QHS cholesterol 30 days #30 tabs 02/15/23 [Rx Last Taken 02/25/23] gabapentin 100 mg capsule 100 mg PO TIDCM nerve pain 30 days #90 caps 02/15/23 [Rx Last Taken 02/26/23] losartan 100 mg tablet 100 mg PO DAILY blood pressure 30 days #30 tabs 02/15/23 [Rx Last Taken 02/26/23] oxycodone 5 mg tablet 5 mg PO Q4H PRN PRN Pain Score 6-10 7 days #42 tabs 02/15/23 [Rx Last Taken Unknown] potassium chloride 20 mEq tablet,extended release 20 meq PO BID supplement 02/22/23 [History Last Taken Unknown] cephalexin 500 mg capsule 500 mg PO TID antibiotic #15 caps 02/26/23 [Rx Last Taken Unknown] Allergy/AdvReac Type Severity Reaction Status Date / Time apixaban [From Eliquis] AdvReac Intermediate Wet the Verified 01/18/23 14:28 bed: found out later had UTI ibuprofen [From Motrin] AdvReac Nausea Verified 01/18/23 14:28 Family History Mother CAD (coronary artery disease) Hypertension History of cardiac radiofrequency ablation Sister Hypertension Other Arthritis Surgical History H/O cervical spine surgery History of bursectomy History of carpal tunnel release History of carpal tunnel surgery History of coronary artery stent placement (11/29/10) History of coronary artery stent placement History of fusion of cervical spine History of herniorrhaphy History of removal of cyst History of transurethral resection of prostate Social History (Updated 02/26/23 @ 19:[address] Low Zheng MD) household members: other details: Older son Naeem. Smoking Status: Former smoker alcohol intake: current details: occasional substance use type: does not use ROS Constitutional Constitutional: Denies chills, fever(s) or weight gain ENT HEENT: Denies headache(s), nasal congestion or nasal discharge Cardiovascular Cardiovascular: Denies chest pain or palpitations Respiratory/Chest Respiratory/Chest: Denies cough, excessive phlegm production or shortness of breath with exertion Gastrointestinal Gastrointestinal: Denies abdominal pain, nausea or vomiting Genitourinary Genitourinary: Denies dysuria Musculoskeletal Musculoskeletal: Denies joint pain or joint swelling Integumentary Integumentary: Denies rash or wounds Neurologic Neurologic: Denies focal weakness, numbness or tingling Psychiatric Psychiatric: Denies anxiety, auditory hallucinations, depression, homicidal ideation or suicidal ideation Vital Signs Vital Signs Vital Signs: 02/26/23 17:00 02/26/23 17:12 Temperature 97.2 F L Temperature Source Temporal Pulse Rate 75 76 Pulse Rhythm Irregular Pulse Strength Normal (2+) Respiratory Rate 18 15 Respiratory Effort Normal Non-Labored Respiratory Depth Normal Respiratory Pattern Normal Blood Pressure 120/71 Blood Pressure Mean 87 Blood Pressure Source Monitor Blood Pressure Position Semi-Fowlers Blood Pressure Location Right Arm Pulse Ox 97 96 Oxygen Delivery Method Room Air Room Air Weight Weight: 117.889 kg Body Mass Index (BMI) 41.9 Physical Exam Const alert General Appearance: cooperative HEENT normocephalic Eyes PERRL and EOMs intact bilaterally Neck supple, no JVD and no carotid bruits Resp normal respiratory effort, normal air movement and clear to auscultation bilaterally Cardio regular rate and regular rhythm GI normal to inspection, nondistended, normoactive bowel sounds, non-tender and non-distended Extremity normal capillary refill General Extremity: Negative for edema Skin no rashes or lesions noted General Skin Exam: no breakdown Neuro Neuro Narrative: Dense right upper hemiplegia. 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 * Debility - PT/OT. * Pain - Tylenol 1000mg q8, Oxycodone 5mg q4 prn pain (6-10). * Bowel - senna/colace 1 tablet bid, Magnesium citrate 300ml daily prn. * Adult immunization - Administer pneumonia vaccine, covid19 vaccine, flu vaccine as appropriate. * DVT prophylaxis - on Xarelto. * Hypertension - Losartan 100mg daily, Amlodipine 10mg daily. * Stroke - Xarelto 20mg daily, Aspirin 81mg daily, failed Xarelto alone. * Hyperlipidemia - Atorvastatin 40mg qhs.. * Atrial fibrillation - Xarelto 20mg daily. * Bilateral lower extremity cellulitis - Keflex 500mg tid thru 03/03/2023. * Neuropathic pain - Gabapentin 100mg tid. * Hypokalemia - KCL 20meq bid.
[2023-02-26] MEDS: Atorvastatin Calcium 40 MG Tablet PO (20:18)
[2023-02-26] MEDS: Potassium Chloride Oral Tablet 20 MEQ PO (20:18)
[2023-02-26] MEDS: Cephalexin 500 MG Capsule PO (20:18)
[2023-02-26] MEDS: Acetaminophen 500 MG Tablet 1000 MG PO (20:19)
[2023-02-26] MEDS: Senna/Docusate Sodium 1 Tablet PO (22:32)
[2023-02-27] MEDS: Acetaminophen 500 MG Tablet 1000 MG PO ×3 (05:41→21:15)
[2023-02-27] MEDS: Cephalexin 500 MG Capsule PO ×3 (05:41→21:15)
[2023-02-27 05:49] LABS: Absolute Lymphocyte Count 1.34 X10^3/uL (0.83-4.51); Absolute Neutrophil Count 5.6 X10^3/uL (2.0-7.7); Basophil# 0.04 X10^3/uL; Basophil% 0.5 % (0-1); Eosinophil# 0.59 X10^3/uL; Eosinophils% 7.3 % (0-5); Hematocrit 42.8 % (40-54); Hemoglobin 14.2 g/dL (13.0-16.5); Lymphocyte # 1.34 X10^3/ul (0.83-4.51); Lymphocyte % 16.6 % (19-41); Mean Corp Hgb Conc 33.2 g/dL (32-36); Mean Corpuscular Hgb 30.9 pg (27.0-32.0); Mean Platelet Vol. 9.4 fl (6.2-12.0); Monocyte# 0.51 X10^3/uL; Monocyte% 6.3 % (0-10); NRBC Flagged by Analyzer 0 % (0-5); Neutrophil # 5.56 X10^3/uL (2.7-7.7); Neutrophil % 69.1 % (47-70); Platelet Count 189 K/mm3 (150-450); RBC Distribution Width CV 14.7 % (11.6-14.6); RBC Distribution Width SD 50.4 fl (35.1-43.9); White Blood Count 8.1 K/mm3 (4.4-11.0)
[2023-02-27 06:29] LABS: Anion Gap 3 (5-15); BUN 12 mg/dL (7-18); Calcium,Total 8.7 mg/dL (8.5-10.1); Chloride 111 mmol/L (98-107); EST Glomerular Filtration Rate 116 mL/min (>60); Est Glom Filt Rate - Afr Amer 141 mL/min (>60); Estimated Creatinine Clearance 59.37 ml/min; Glucose 90 mg/dL (74-106); Potassium 3.6 mmol/L (3.5-5.1); Sodium Level 138 mmol/L (136-145)
[2023-02-27 07:04] VITALS: O2SAT 96
[2023-02-27 09:10] VITALS: BP 142/83; PULSE 66; RESP 17; TEMP 36.3; O2SAT 98
[2023-02-27] MEDS: Aspirin 81 MG TAB.CHEW PO (09:13)
[2023-02-27] MEDS: Senna/Docusate Sodium 1 Tablet PO ×2 (09:14→21:15)
[2023-02-27] MEDS: amLODIPine 10 MG Tablet PO (09:14)
[2023-02-27] MEDS: Gabapentin 100 MG Capsule PO ×3 (09:14→17:24)
[2023-02-27] MEDS: Potassium Chloride Oral Tablet 20 MEQ PO ×2 (09:14→21:14)
[2023-02-27] MEDS: Losartan Potassium 100 MG Tablet PO (09:14)
[2023-02-27] MEDS: Ensure Plus High Protein 120 ML LIQUID PO (09:15)
[2023-02-27] MEDS: Tuberculin,Purif.prot.deriv. 50 TU/ML Vial 0.1 ML ID (09:17)
[2023-02-27 11:23] VITALS: BMI 41.8
[2023-02-27] MEDS: Magnesium Citrate 300 ML PO (14:58)
--- NOTE | 2023-02-27 16:07 | CASEMGMT ---
Social Work Met with patient to complete initial assessment. Updated changes from previous DC. Pt known to this worker from previous stay. Verified full code.Reminded pt for son to bring copies of advanced directives. Educated to [facility] insurance with [employer] 02/28 and continued stay is not guaranteed with each review. SW inquired about homegoing. Pt explains son placed grab bars everywhere, on the edge of his bed, outside of the bathroom door, inside the bathroom, and that was working well, per the pt. Pt states his granddaughter makes sandwiches nightly and then son puts food and beverages in a cooler by pt's chair for the daytime. Pt stated both son's carried pt in the w/c up the stairs into the house and pt did not leave since readmission to hospital. Pt had nurse once from [facility] but then readmitted when therapy was scheduled. SW will continue to follow for DC planning. ALYSSA CosmeW
[2023-02-27] MEDS: Rivaroxaban 20 MG Tablet PO (17:24)
[2023-02-27] MEDS: Atorvastatin Calcium 40 MG Tablet PO (21:15)
[2023-02-27 21:17] VITALS: PULSE 74; RESP 18; O2SAT 97
[2023-02-28 00:30] VITALS: O2SAT 96
[2023-02-28] MEDS: Acetaminophen 500 MG Tablet 1000 MG PO ×3 (04:50→20:56)
[2023-02-28] MEDS: oxyCODONE 5 MG Tablet PO (04:51)
[2023-02-28] MEDS: Cephalexin 500 MG Capsule PO ×3 (04:51→20:57)
[2023-02-28] MEDS: Aspirin 81 MG TAB.CHEW PO (09:20)
[2023-02-28] MEDS: Gabapentin 100 MG Capsule PO ×3 (09:20→17:06)
[2023-02-28] MEDS: Losartan Potassium 100 MG Tablet PO (09:20)
[2023-02-28] MEDS: Potassium Chloride Oral Tablet 20 MEQ PO ×2 (09:20→20:57)
[2023-02-28] MEDS: amLODIPine 10 MG Tablet PO (09:21)
[2023-02-28] MEDS: Miconazole Nitrate 43 GM Bottle 1 APPLIC TOPICAL ×2 (09:22→20:57)
[2023-02-28] MEDS: Senna/Docusate Sodium 1 Tablet PO (09:23)
[2023-02-28] MEDS: Ammonium Lactate 225 gm Bottle 1 APPLIC TOPICAL ×2 (09:24→20:56)
[2023-02-28 09:27] VITALS: BP 122/79; PULSE 56
--- NOTE | 2023-02-28 10:57 | NS ---
MST score = 2 - no issues chewing/swallowing or appetite/wt changes. Provided copy of first choice/daily specials menu w/ instructions on how to order. Food dislikes: beef tips and noodles - I'm a burger and fries bi and doesn't like fancy foods.
[2023-02-28 14:21] VITALS: BP 126/81; PULSE 55; RESP 16; TEMP 36; O2SAT 96
[2023-02-28] MEDS: Rivaroxaban 20 MG Tablet PO (17:07)
[2023-02-28] MEDS: Atorvastatin Calcium 40 MG Tablet PO (20:56)
[2023-02-28] MEDS: Menthol/Lanolin/Calamine/Znox 113 GM Tube 1 APPLIC TOPICAL (20:57)
[2023-02-28 21:00] VITALS: PULSE 74; RESP 16; O2SAT 95
[2023-03-01] MEDS: oxyCODONE 5 MG Tablet PO (04:10)
[2023-03-01] MEDS: Acetaminophen 500 MG Tablet 1000 MG PO ×3 (05:34→22:18)
[2023-03-01] MEDS: Cephalexin 500 MG Capsule PO ×3 (05:34→22:17)
[2023-03-01 05:37] VITALS: PULSE 88; RESP 18; O2SAT 93
--- NOTE | 2023-03-01 07:16 | PCM.PN.DRR ---
TCU RX Drug Regimen Review Subjective/Objective Subjective/Objective: Subjective: 72 YOM admitted to TCU on 02/26/23 s/p hospitalization secondary to viral pneumonia, bilateral lower extremity cellulitis. Admitted to TCU for strengthening and rehabilitation prior to discharge home where he resides with a son. Objective: Allergies apixaban [From Eliquis] Adverse Reaction (Intermediate, Verified 01/18/23 14:28) Wet the bed: found out later had UTI MAKES SICK ON HIS STOMACH ibuprofen [From Motrin] Adverse Reaction (Verified 01/18/23 14:28) Nausea Current Medications Generic Name Dose Route Start Last Admin Trade Name Freq PRN Reason Stop Dose Admin Acetaminophen 1,000 mg 02/26/23 22:00 03/01/23 05:34 Acetaminophen 500 Mg Tablet PO 1,000 mg Q8 IKE Administration Amlodipine Besylate 10 mg 02/27/23 10:00 02/28/23 09:21 Amlodipine 10 Mg Tablet PO 10 mg DAILY IKE Administration Protocol Aspirin 81 mg 02/27/23 08:00 02/28/23 09:20 Aspirin 81 Mg Tab.Chew PO 81 mg BREAKFAST IKE Administration Atorvastatin Calcium 40 mg 02/26/23 22:00 02/28/23 20:56 Atorvastatin Calcium 40 Mg Tablet PO 40 mg QHS IKE Administration Calamine/Phenol 1 applic 02/28/23 22:00 02/28/23 20:57 Menthol/Lanolin/Calamine/Znox 113 Gm Tube TOPICAL 1 applic BID IKE Administration Protocol Cephalexin 500 mg 02/26/23 22:00 03/01/23 05:34 Cephalexin 500 Mg Capsule PO 03/03/23 14:01 500 mg TID IKE Administration Gabapentin 100 mg 02/26/23 17:45 02/28/23 17:06 Gabapentin 100 Mg Capsule PO 100 mg TIDCM IKE Administration Lactic Acid 1 applic 02/28/23 10:00 02/28/23 20:56 Ammonium Lactate 225 Gm Bottle TOPICAL 1 applic BID IKE Administration Protocol Losartan Potassium 100 mg 02/27/23 10:00 02/28/23 09:20 Losartan Potassium 100 Mg Tablet PO 100 mg DAILY IKE Administration Protocol Magnesium Citrate 300 ml 02/26/23 19:57 02/27/23 14:58 Magnesium Citrate 300 Ml PO 300 ml DAILY PRN Administration CONSTIPATION Miconazole Nitrate 1 applic 02/28/23 10:00 02/28/23 20:57 Miconazole Nitrate 43 Gm Bottle TOPICAL 1 applic 1000,2200 IKE Administration Protocol Oxycodone HCl 5 mg 02/26/23 17:10 03/01/23 04:10 Oxycodone 5 Mg Tablet PO 5 mg Q4H PRN PRN Administration Pain Score 6-10 Potassium Chloride 20 meq 02/26/23 22:00 02/28/23 20:57 Potassium Chloride Oral Tablet 20 Meq PO 20 meq BID IKE Administration Rivaroxaban 20 mg 02/27/23 17:00 02/28/23 17:07 Rivaroxaban 20 Mg Tablet PO 20 mg DINNER IKE Administration Senna/Docusate Sodium 1 tablet 02/26/23 22:00 02/28/23 20:56 Senna/Docusate Sodium 1 Tablet PO Not Given BID [facility] Problem List (Updated 02/26/23 @ 19:[address] 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 (Acute) Bilateral lower leg cellulitis (Acute) Rhinovirus (Acute) Pneumonia (Acute) Atrial fibrillation (Acute) Hyperlipidemia (Acute) Debility (Acute) Vital Signs Temp Pulse Resp BP Pulse Ox O2 Del Method 96.8 F L 88 18 126/81 H 93 Room Air 02/28/23 14:21 03/01/23 05:37 03/01/23 05:37 02/28/23 14:21 03/01/23 05:37 03/01/23 05:37 Oxygen Delivery Method Room Air Weight: 117.889 kg Body Mass Index (BMI) 41.8 Sodium 138 mmol/L (136-145) 02/27/23 05:38 Potassium 3.6 mmol/L (3.5-5.1) 02/27/23 05:38 Chloride 111 mmol/L (98-107) H 02/27/23 05:38 Carbon Dioxide 24.0 mmol/L (21.0-32.0) 02/27/23 05:38 Anion Gap 3 (5-15) L 02/27/23 05:38 BUN 12 mg/dL (7-18) 02/27/23 05:38 Creatinine 0.70 mg/dL (0.70-1.30) 02/27/23 05:38 Est GFR (MDRD) Af Amer 141 mL/min (>60) 02/27/23 05:38 Est GFR (MDRD) Non-Af 116 mL/min (>60) 02/27/23 05:38 BUN/Creatinine Ratio 17.0 RATIO (10-20) 02/27/23 05:38 Glucose 90 mg/dL (74-106) 02/27/23 05:38 Assessment/Plan: 1. Pain: Tylenol 1000mg PO Q8h, Oxycodone 5mg PO Q4h PRN Pain 6-10. Please continue to monitor for increased/decreased S/S pain, PRN medication usage, oversedation/constipation with narcotic use. -To date, the patient has gotten 2 doses of PRN oxycodone since admission. Pre-medication pain rated 7/10, post-medication pain rated 2/10. It appears medications are being effective at this time. 2. Bilateral lower extremity cellulitis: Keflex 500mg PO TID thru 03/03/23. Please continue to monitor for resolution of infection, CrCl (~59 mL/min on 02/27), stomach upset/diarrhea, microbiology data if applicable. 3. HTN/ Afib/ Hx of Stroke: Norvasc 10mg PO Daily, Aspirin 81mg PO Daily, Lipitor 40mg PO QHS, Losartan 100mg PO Daily, Xarelto 20mg PO Daily. Please continue to monitor for S/S bleeding/bruising, H/H (Hgb 14.2, Hct 42.8 on 02/27), BP (range 110-142/63-86), pulse (range 55-88), Lipid panel annually or sooner if clinically indicated (none on file at present). Patient with a history of afib, not on rate or rhytm control, but heart rate appears WNL at this time, continue to monitor. 4. Neuropathic Pain: Gabapentin 100mg PO TID. Please continue to monitor for medication effectiveness, oversedation with use, CrCl (dosing appropriate based on current CrCl). This is a Beer's Criteria medication which can increase the risk of falls in patients >65 years old. Please continue to monitor patient closely for falls, side effects. 5. Hypokalemia: K-Dur 20mEq PO BID. Please continue to monitor potassium levels (3.6 on 02/27), stomach upset/nausea with administration. 6. Skin Integrity: Ammonium Lactate topically BID, Calmoseptine topically BID, Miconazole powder topically BID. Please continue to monitor for skin irritation/dryness, redness, evidence of open sores/ulcer development. 7. Bowel: Senna/Docusate 1 tab PO BID, Magnesium citrate 300mL PO Daily PRN. Please continue to monitor for increased/decreased constipation/diarrhea. -To date, the patient has had 4 bowel movements since admission. Please continue to monitor. Assessment/Plan for indications treated with psychotropic medications: -The patient is not currently being maintained on psychotropic medications at time of medication list review. Medical chart and medication regimen reviewed. The following medication irregularities or issues were identified: 1. Hyperlipidemia: Pt on Lipitor, no lipid panel on file upon EMR review. Please consider ordering a lipid panel if clinically indicated, thank you. Date Date of Note:: 03/01/23
[2023-03-01] MEDS: amLODIPine 10 MG Tablet PO (10:07)
[2023-03-01] MEDS: Senna/Docusate Sodium 1 Tablet PO (10:07)
[2023-03-01] MEDS: Potassium Chloride Oral Tablet 20 MEQ PO ×2 (10:07→22:17)
[2023-03-01] MEDS: Miconazole Nitrate 43 GM Bottle 1 APPLIC TOPICAL ×2 (10:08→22:19)
[2023-03-01] MEDS: Menthol/Lanolin/Calamine/Znox 113 GM Tube 1 APPLIC TOPICAL ×2 (10:08→22:18)
[2023-03-01] MEDS: Gabapentin 100 MG Capsule PO ×3 (10:08→17:40)
[2023-03-01] MEDS: Aspirin 81 MG TAB.CHEW PO (10:08)
[2023-03-01] MEDS: Ammonium Lactate 225 gm Bottle 1 APPLIC TOPICAL ×2 (10:09→22:19)
[2023-03-01] MEDS: Losartan Potassium 100 MG Tablet PO (10:10)
[2023-03-01 14:07] VITALS: BP 151/97; PULSE 69; RESP 18; TEMP 35.9; O2SAT 95
[2023-03-01 16:03] VITALS: PULSE 77; RESP 18; O2SAT 94
[2023-03-01] MEDS: Ipratropium/Albuterol Sulfate 3 ML AMPUL.NEB INHALATION ×2 (16:04→19:50)
[2023-03-01] MEDS: Rivaroxaban 20 MG Tablet PO (17:43)
[2023-03-01 19:50] VITALS: PULSE 88; RESP 18; O2SAT 95
[2023-03-01] MEDS: Atorvastatin Calcium 40 MG Tablet PO (22:18)
[2023-03-02] MEDS: oxyCODONE 5 MG Tablet PO ×3 (01:42→22:33)
[2023-03-02] MEDS: Acetaminophen 500 MG Tablet 1000 MG PO ×3 (06:49→22:32)
--- NOTE | 2023-03-02 06:52 | NURSING ---
Communication sent to pharmacy to send Kelfex. None in pt's locked med box or [employer]. Will report to oncoming nurse.
[2023-03-02 08:00] VITALS: O2SAT 96
[2023-03-02 08:45] VITALS: BP 129/77; PULSE 85; RESP 17; TEMP 36.5; O2SAT 96
[2023-03-02] MEDS: Gabapentin 100 MG Capsule PO ×3 (08:47→17:30)
[2023-03-02] MEDS: amLODIPine 10 MG Tablet PO (08:47)
[2023-03-02] MEDS: Cephalexin 500 MG Capsule PO ×3 (08:47→22:42)
[2023-03-02] MEDS: Potassium Chloride Oral Tablet 20 MEQ PO ×2 (08:47→22:32)
[2023-03-02] MEDS: Aspirin 81 MG TAB.CHEW PO (08:47)
[2023-03-02] MEDS: Miconazole Nitrate 43 GM Bottle 1 APPLIC TOPICAL ×2 (08:48→22:33)
[2023-03-02] MEDS: Ammonium Lactate 225 gm Bottle 1 APPLIC TOPICAL ×2 (08:49→22:34)
[2023-03-02] MEDS: Menthol/Lanolin/Calamine/Znox 113 GM Tube 1 APPLIC TOPICAL ×2 (08:51→22:33)
--- NOTE | 2023-03-02 09:10 | NURSING ---
Cryptologic Support Specialist Note; Activity Asset: Iker Catalan has returned to TCU for continued therapy. He remains independent in his choice of daily Activities. His family will visit and he welcomes visit from the Customer Experience Manager and therapy dog when available. He will watch tv, read the paper but prefers to rest when not with therapy. Staff will continue to remind him of daily activities and offer him in room activities and respect hi right to say no.
[2023-03-02] MEDS: Losartan Potassium 100 MG Tablet PO (10:42)
--- NOTE | 2023-03-02 11:56 | NS ---
Res requesting diet change to regular d/t appetite not as good lately. Will change per res preference.
[2023-03-02] MEDS: Rivaroxaban 20 MG Tablet PO (17:30)
[2023-03-02 22:30] VITALS: PULSE 88; RESP 18; O2SAT 98
[2023-03-02] MEDS: Atorvastatin Calcium 40 MG Tablet PO (22:32)
[2023-03-03] MEDS: Acetaminophen 500 MG Tablet 1000 MG PO ×3 (06:08→22:08)
[2023-03-03] MEDS: Cephalexin 500 MG Capsule PO ×2 (06:08→12:26)
[2023-03-03 06:20] VITALS: PULSE 90; RESP 16; O2SAT 92
[2023-03-03] MEDS: Gabapentin 100 MG Capsule PO ×3 (08:54→17:42)
[2023-03-03] MEDS: Potassium Chloride Oral Tablet 20 MEQ PO ×2 (08:58→22:08)
[2023-03-03] MEDS: amLODIPine 10 MG Tablet PO (08:58)
[2023-03-03] MEDS: Losartan Potassium 100 MG Tablet PO (08:58)
[2023-03-03] MEDS: Aspirin 81 MG TAB.CHEW PO (08:59)
[2023-03-03] MEDS: Menthol/Lanolin/Calamine/Znox 113 GM Tube 1 APPLIC TOPICAL ×2 (08:59→22:09)
[2023-03-03] MEDS: Miconazole Nitrate 43 GM Bottle 1 APPLIC TOPICAL ×2 (08:59→22:09)
[2023-03-03] MEDS: Ammonium Lactate 225 gm Bottle 1 APPLIC TOPICAL ×2 (09:00→22:09)
[2023-03-03 14:15] VITALS: BP 102/64; PULSE 70; RESP 18; TEMP 36.2; O2SAT 97
[2023-03-03] MEDS: Rivaroxaban 20 MG Tablet PO (18:00)
[2023-03-03] MEDS: Atorvastatin Calcium 40 MG Tablet PO (22:08)
[2023-03-04] MEDS: oxyCODONE 5 MG Tablet PO (01:16)
[2023-03-04] MEDS: Acetaminophen 500 MG Tablet 1000 MG PO ×3 (05:05→21:00)
[2023-03-04] MEDS: Gabapentin 100 MG Capsule PO ×3 (08:51→16:58)
[2023-03-04] MEDS: Losartan Potassium 100 MG Tablet PO (08:51)
[2023-03-04] MEDS: Aspirin 81 MG TAB.CHEW PO (08:52)
[2023-03-04] MEDS: Menthol/Lanolin/Calamine/Znox 113 GM Tube 1 APPLIC TOPICAL ×2 (08:52→21:08)
[2023-03-04] MEDS: Potassium Chloride Oral Tablet 20 MEQ PO ×2 (08:52→21:00)
[2023-03-04] MEDS: amLODIPine 10 MG Tablet PO (08:53)
[2023-03-04] MEDS: Ammonium Lactate 225 gm Bottle 1 APPLIC TOPICAL ×2 (08:53→21:07)
[2023-03-04] MEDS: Miconazole Nitrate 43 GM Bottle 1 APPLIC TOPICAL ×2 (08:57→21:08)
[2023-03-04 09:08] VITALS: BP 116/70; PULSE 55; RESP 16; TEMP 36.4; O2SAT 97
[2023-03-04] MEDS: Rivaroxaban 20 MG Tablet PO (16:58)
[2023-03-04] MEDS: Atorvastatin Calcium 40 MG Tablet PO (21:00)
[2023-03-04 22:00] VITALS: PULSE 61; RESP 16; O2SAT 98
[2023-03-05] MEDS: Acetaminophen 500 MG Tablet 1000 MG PO ×3 (05:04→21:25)
[2023-03-05 06:39] VITALS: PULSE 63; RESP 16; O2SAT 95
[2023-03-05 07:59] VITALS: BP 134/86; PULSE 71; RESP 16; TEMP 36.4; O2SAT 97
[2023-03-05] MEDS: Miconazole Nitrate 43 GM Bottle 1 APPLIC TOPICAL ×2 (08:02→21:25)
[2023-03-05] MEDS: Menthol/Lanolin/Calamine/Znox 113 GM Tube 1 APPLIC TOPICAL ×2 (08:02→21:26)
[2023-03-05] MEDS: Aspirin 81 MG TAB.CHEW PO (08:06)
[2023-03-05] MEDS: Gabapentin 100 MG Capsule PO ×3 (08:06→17:27)
[2023-03-05] MEDS: amLODIPine 10 MG Tablet PO (08:07)
[2023-03-05] MEDS: Potassium Chloride Oral Tablet 20 MEQ PO ×2 (08:07→21:24)
[2023-03-05] MEDS: Ammonium Lactate 225 gm Bottle 1 APPLIC TOPICAL (08:07)
[2023-03-05] MEDS: Losartan Potassium 100 MG Tablet PO (08:07)
--- NOTE | 2023-03-05 09:08 | NURSING ---
Rubber Process Hand Note; MDS Complete
--- NOTE | 2023-03-05 11:55 | NURSING ---
Offered covid vaccine, VIS provided to patient. He refuses at this time.
[2023-03-05] MEDS: oxyCODONE 5 MG Tablet PO (15:32)
--- NOTE | 2023-03-05 15:57 | NURSING ---
Addendum entered by Doris Blair 03/05/23 19:23: washed BLEs with soap and water, dried. legs red/rashy appearance. wound nurse consulted regarding lac hydrin lotion causing this irritation. she stated possible and would like us to stop using for now to see if legs improve without. SB wraps may have been holding moisture and irritating skin. legs MEAGHAN. pt doing better since legs washed.will continue to monitor Original Note: Bilateral SB wraps removed due to patient complaint of legs hurting and being hot. Legs are elevated and patient received PRN order of oxycodone 5 mg to help manage pain.
[2023-03-05] MEDS: Rivaroxaban 20 MG Tablet PO (17:27)
[2023-03-05] MEDS: Senna/Docusate Sodium 1 Tablet PO (21:24)
[2023-03-05] MEDS: Atorvastatin Calcium 40 MG Tablet PO (21:24)
[2023-03-06] MEDS: Acetaminophen 500 MG Tablet 1000 MG PO ×3 (05:31→22:04)
[2023-03-06 06:06] LABS: Absolute Lymphocyte Count 1.28 X10^3/uL (0.83-4.51); Absolute Neutrophil Count 4.3 X10^3/uL (2.0-7.7); Basophil# 0.03 X10^3/uL; Basophil% 0.4 % (0-1); Eosinophil# 0.58 X10^3/uL; Eosinophils% 8.3 % (0-5); Hematocrit 42.3 % (40-54); Hemoglobin 13.7 g/dL (13.0-16.5); Lymphocyte # 1.28 X10^3/ul (0.83-4.51); Lymphocyte % 18.4 % (19-41); Mean Corp Hgb Conc 32.4 g/dL (32-36); Mean Corpuscular Hgb 30.9 pg (27.0-32.0); Mean Corpuscular Volume 95.3 fL (80-94); Mean Platelet Vol. 9.5 fl (6.2-12.0); Monocyte# 0.68 X10^3/uL; Monocyte% 9.8 % (0-10); NRBC Flagged by Analyzer 0 % (0-5); Neutrophil # 4.34 X10^3/uL (2.7-7.7); Neutrophil % 62.5 % (47-70); Platelet Count 203 K/mm3 (150-450); RBC Distribution Width CV 14.7 % (11.6-14.6); Red Blood Count 4.44 M/mm3 (4.6-6.2)
[2023-03-06 06:42] LABS: Anion Gap 7 (5-15); BUN 15 mg/dL (7-18); BUN/Creat Ratio 18.2 RATIO (10-20); Calcium,Total 8.6 mg/dL (8.5-10.1); Chloride 110 mmol/L (98-107); Creatinine, Serum 0.82 mg/dL (0.70-1.30); EST Glomerular Filtration Rate 97 mL/min (>60); Est Glom Filt Rate - Afr Amer 118 mL/min (>60); Glucose 100 mg/dL (74-106); Potassium 3.8 mmol/L (3.5-5.1); Sodium Level 141 mmol/L (136-145)
[2023-03-06 08:22] VITALS: BP 116/67; PULSE 64; RESP 16; TEMP 36.6; O2SAT 98
[2023-03-06] MEDS: Gabapentin 100 MG Capsule PO ×3 (08:25→17:40)
[2023-03-06] MEDS: amLODIPine 10 MG Tablet PO (08:25)
[2023-03-06] MEDS: Aspirin 81 MG TAB.CHEW PO (08:25)
[2023-03-06] MEDS: Potassium Chloride Oral Tablet 20 MEQ PO ×2 (08:25→22:05)
[2023-03-06] MEDS: Losartan Potassium 100 MG Tablet PO (08:25)
[2023-03-06] MEDS: Miconazole Nitrate 43 GM Bottle 1 APPLIC TOPICAL ×2 (08:26→22:07)
[2023-03-06] MEDS: Senna/Docusate Sodium 1 Tablet PO (08:26)
[2023-03-06] MEDS: Menthol/Lanolin/Calamine/Znox 113 GM Tube 1 APPLIC TOPICAL ×2 (08:26→22:07)
--- NOTE | 2023-03-06 09:27 | CASEMGMT ---
Social Work BIMS () and PHQ-2 () completed for MDS assessment. Danica Ching MSW INTERNET SPECIALIST
[2023-03-06 10:20] VITALS: BMI 41.3
--- NOTE | 2023-03-06 14:12 | MDS.RN ---
Information for the mds was obtained from review of the clinical record, interview of resident, staff, and direct observation of resident's care.
[2023-03-06] MEDS: Rivaroxaban 20 MG Tablet PO (17:40)
[2023-03-06] MEDS: Atorvastatin Calcium 40 MG Tablet PO (22:05)
[2023-03-07] MEDS: Acetaminophen 500 MG Tablet 1000 MG PO ×3 (06:43→20:46)
[2023-03-07] MEDS: Gabapentin 100 MG Capsule PO ×3 (06:44→17:37)
--- NOTE | 2023-03-07 09:05 | CASEMGMT ---
Social Work IDT met with patient and son, Maco, via conference call for care plan meeting. Discussed patient's progress in [facility] insurance with NRD 03/12, EDC 03/15. Cautioned a short-term stay and offered to work on any specific things that struggled with at home. Pt and son denied. SW to coordinate skilled HHC at [place]. Will continue to follow. Danica Ching, COMMUNICATIONS SYSTEMS ENGINEER FACILITY ADMINISTRATOR
[2023-03-07 09:30] VITALS: BP 115/71; PULSE 73; RESP 18; TEMP 36.2; O2SAT 99
[2023-03-07] MEDS: Aspirin 81 MG TAB.CHEW PO (09:32)
[2023-03-07] MEDS: Losartan Potassium 100 MG Tablet PO (09:32)
[2023-03-07] MEDS: Miconazole Nitrate 43 GM Bottle 1 APPLIC TOPICAL ×2 (09:32→20:46)
[2023-03-07] MEDS: amLODIPine 10 MG Tablet PO (09:32)
[2023-03-07] MEDS: Potassium Chloride Oral Tablet 20 MEQ PO ×2 (09:33→20:44)
[2023-03-07] MEDS: Menthol/Lanolin/Calamine/Znox 113 GM Tube 1 APPLIC TOPICAL ×2 (09:33→20:46)
[2023-03-07 13:07] VITALS: BP 126/61; PULSE 52; RESP 16; TEMP 36.1; O2SAT 99
[2023-03-07] MEDS: Rivaroxaban 20 MG Tablet PO (17:37)
[2023-03-07] MEDS: Atorvastatin Calcium 40 MG Tablet PO (20:45)
[2023-03-07 20:56] VITALS: O2SAT 94
[2023-03-08] MEDS: oxyCODONE 5 MG Tablet PO ×3 (02:51→20:59)
[2023-03-08] MEDS: Acetaminophen 500 MG Tablet 1000 MG PO ×3 (06:30→20:56)
[2023-03-08 08:54] VITALS: BP 117/73; PULSE 59; RESP 18; TEMP 36.4; O2SAT 95
[2023-03-08] MEDS: Gabapentin 100 MG Capsule PO ×3 (08:56→17:35)
[2023-03-08] MEDS: Potassium Chloride Oral Tablet 20 MEQ PO ×2 (08:56→20:56)
[2023-03-08] MEDS: Losartan Potassium 100 MG Tablet PO (08:56)
[2023-03-08] MEDS: Menthol/Lanolin/Calamine/Znox 113 GM Tube 1 APPLIC TOPICAL (08:56)
[2023-03-08] MEDS: amLODIPine 10 MG Tablet PO (08:56)
[2023-03-08] MEDS: Aspirin 81 MG TAB.CHEW PO (08:56)
[2023-03-08] MEDS: Miconazole Nitrate 43 GM Bottle 1 APPLIC TOPICAL ×2 (08:57→20:56)
[2023-03-08 10:00] VITALS: RESP 18
[2023-03-08] MEDS: Rivaroxaban 20 MG Tablet PO (18:02)
[2023-03-08] MEDS: Atorvastatin Calcium 40 MG Tablet PO (20:56)
[2023-03-09] MEDS: Acetaminophen 500 MG Tablet 1000 MG PO ×3 (05:38→21:19)
[2023-03-09 07:47] VITALS: BP 138/76; PULSE 59; RESP 16; TEMP 36.6; O2SAT 97
[2023-03-09] MEDS: Miconazole Nitrate 43 GM Bottle 1 APPLIC TOPICAL ×2 (07:52→21:21)
[2023-03-09] MEDS: Menthol/Lanolin/Calamine/Znox 113 GM Tube 1 APPLIC TOPICAL ×2 (07:53→21:22)
[2023-03-09] MEDS: Gabapentin 100 MG Capsule PO ×3 (07:53→17:28)
[2023-03-09] MEDS: Aspirin 81 MG TAB.CHEW PO (07:54)
[2023-03-09] MEDS: Losartan Potassium 100 MG Tablet PO (07:54)
[2023-03-09] MEDS: amLODIPine 10 MG Tablet PO (07:55)
[2023-03-09] MEDS: Potassium Chloride Oral Tablet 20 MEQ PO ×2 (07:55→21:18)
[2023-03-09] MEDS: Senna/Docusate Sodium 1 Tablet PO (07:55)
[2023-03-09] MEDS: Doxycycline 100 MG CAPSULE PO ×2 (08:21→21:18)
[2023-03-09] MEDS: Cephalexin 500 MG Capsule PO ×2 (11:34→17:28)
[2023-03-09] MEDS: Rivaroxaban 20 MG Tablet PO (17:28)
[2023-03-09] MEDS: Atorvastatin Calcium 40 MG Tablet PO (21:18)
[2023-03-10] MEDS: Cephalexin 500 MG Capsule PO ×4 (02:44→17:11)
[2023-03-10] MEDS: Acetaminophen 500 MG Tablet 1000 MG PO ×3 (06:36→22:33)
[2023-03-10] MEDS: oxyCODONE 5 MG Tablet PO (06:38)
[2023-03-10] MEDS: Gabapentin 100 MG Capsule PO ×3 (06:55→18:21)
[2023-03-10] MEDS: Miconazole Nitrate 43 GM Bottle 1 APPLIC TOPICAL ×2 (09:11→22:34)
[2023-03-10] MEDS: Losartan Potassium 100 MG Tablet PO (09:14)
[2023-03-10] MEDS: Aspirin 81 MG TAB.CHEW PO (09:15)
[2023-03-10] MEDS: Potassium Chloride Oral Tablet 20 MEQ PO ×2 (09:15→22:33)
[2023-03-10] MEDS: Doxycycline 100 MG CAPSULE PO ×2 (09:15→22:33)
[2023-03-10] MEDS: amLODIPine 10 MG Tablet PO (09:15)
[2023-03-10] MEDS: Menthol/Lanolin/Calamine/Znox 113 GM Tube 1 APPLIC TOPICAL ×2 (09:18→22:34)
[2023-03-10 09:20] VITALS: BP 114/77; PULSE 73; RESP 18; TEMP 36.5; O2SAT 97
[2023-03-10 10:00] VITALS: RESP 18
[2023-03-10 14:29] VITALS: BP 119/84; PULSE 58; RESP 18; TEMP 36.3; O2SAT 97
[2023-03-10] MEDS: Rivaroxaban 20 MG Tablet PO (17:11)
[2023-03-10] MEDS: Atorvastatin Calcium 40 MG Tablet PO (22:33)
[2023-03-11] MEDS: Cephalexin 500 MG Capsule PO ×5 (00:10→23:01)
[2023-03-11] MEDS: oxyCODONE 5 MG Tablet PO ×2 (01:28→23:05)
[2023-03-11] MEDS: Acetaminophen 500 MG Tablet 1000 MG PO ×3 (05:57→21:29)
[2023-03-11] MEDS: Miconazole Nitrate 43 GM Bottle 1 APPLIC TOPICAL ×2 (09:08→21:30)
[2023-03-11] MEDS: Doxycycline 100 MG CAPSULE PO ×2 (09:08→21:30)
[2023-03-11] MEDS: Gabapentin 100 MG Capsule PO ×3 (09:08→18:13)
[2023-03-11] MEDS: Losartan Potassium 100 MG Tablet PO (09:09)
[2023-03-11] MEDS: Potassium Chloride Oral Tablet 20 MEQ PO ×2 (09:09→21:29)
[2023-03-11] MEDS: amLODIPine 10 MG Tablet PO (09:09)
[2023-03-11] MEDS: Aspirin 81 MG TAB.CHEW PO (09:10)
[2023-03-11] MEDS: Menthol/Lanolin/Calamine/Znox 113 GM Tube 1 APPLIC TOPICAL ×2 (09:10→21:28)
[2023-03-11 09:13] VITALS: BP 110/60; PULSE 81; RESP 18; O2SAT 96
[2023-03-11 09:14] VITALS: RESP 18
[2023-03-11 12:04] VITALS: BP 124/76; PULSE 61; RESP 16; TEMP 36.2; O2SAT 97
[2023-03-11] MEDS: Rivaroxaban 20 MG Tablet PO (18:13)
[2023-03-11] MEDS: Atorvastatin Calcium 40 MG Tablet PO (21:29)
[2023-03-12] MEDS: Cephalexin 500 MG Capsule PO ×3 (06:12→17:04)
[2023-03-12] MEDS: Acetaminophen 500 MG Tablet 1000 MG PO ×3 (06:12→21:10)
[2023-03-12] MEDS: Potassium Chloride Oral Tablet 20 MEQ PO ×2 (08:35→21:11)
[2023-03-12] MEDS: Aspirin 81 MG TAB.CHEW PO (08:35)
[2023-03-12] MEDS: Gabapentin 100 MG Capsule PO ×3 (08:35→17:04)
[2023-03-12] MEDS: Menthol/Lanolin/Calamine/Znox 113 GM Tube 1 APPLIC TOPICAL ×2 (08:35→21:12)
[2023-03-12] MEDS: amLODIPine 10 MG Tablet PO (08:35)
[2023-03-12] MEDS: Losartan Potassium 100 MG Tablet PO (08:35)
[2023-03-12] MEDS: Doxycycline 100 MG CAPSULE PO ×2 (08:35→21:11)
[2023-03-12] MEDS: Miconazole Nitrate 43 GM Bottle 1 APPLIC TOPICAL ×2 (08:36→21:12)
[2023-03-12 08:38] VITALS: BP 130/69; PULSE 59
[2023-03-12 13:51] VITALS: BP 106/68; PULSE 64; RESP 14; TEMP 36.6; O2SAT 95
--- NOTE | 2023-03-12 15:19 | CASEMGMT ---
Social Work Insurance issued LCD 03/14, DC 03/15. SW spoke with pt and pt agreeable to DC. Pt stated he will tell his son during visit this evening. SW confirmed to resume [facility] services with [facility]. No DME needs. Son to transport. Sent referral to [facility] via [facility] for PT/OT/SN/WESLEY/JESISE. Plan: DC home with son/family 03/15, [facility] PT/OT/SN/WESLEY/ALYSSA RodriguezW
[2023-03-12] MEDS: oxyCODONE 5 MG Tablet PO ×2 (17:03→21:09)
[2023-03-12] MEDS: Rivaroxaban 20 MG Tablet PO (17:04)
--- NOTE | 2023-03-12 19:09 | DS.PCM_ITS ---
Providers Date of Admission: 02/26/23 Primary Care Physician: VU CelisC Reason For Visit: PNEUMONIA Diagnosis Discharge Diagnosis (1) Debility: Status: Acute Code(s): R53.81 - Other malaise (2) Rhinovirus: Status: Acute Code(s): B34.8 - Other viral infections of unspecified site (3) Pneumonia: Status: Inactive Code(s): J18.9 - Pneumonia, unspecified organism Qualifiers: Pneumonia type: due to unspecified organism Laterality: bilateral Lung location: unspecified part of lung Qualified Code(s): J18.9 - Pneumonia, uns pecified organism (4) Bilateral lower leg cellulitis: Status: Acute Code(s): L03.116 - Cellulitis of left lower limb; L03.115 - Cellulitis of right lower limb (5) Hemiplegia of right dominant side as late effect of cerebral infarction: Status: Acute Code(s): I69.351 - Hemiplegia and hemiparesis following cerebral infarction affecting right dominant side (6) Atrial fibrillation: Status: Acute Code(s): I48.91 - Unspecified atrial fibrillation (7) Essential (primary) hypertension: Status: Acute Code(s): I10 - Essential (primary) hypertension (8) Hyperlipidemia: Status: Acute Code(s): E78.5 - Hyperlipidemia, unspecified (9) Hypokalemia: Status: Acute Code(s): E87.6 - Hypokalemia Plan 72 year old male with below past medical history hospitalized for rhinovirus, pneumonia, bilateral lower extremity cellulitis, admitted to TCU with debility, here for rehabilitation, strengthening, prior to discharge home with son Naeem. * Debility - PT/OT. * Pain - Tylenol 1000mg q8, Oxycodone 5mg q4 prn pain (6-10). * Bowel - senna/colace 1 tablet bid, Magnesium citrate 300ml daily prn. * Adult immunization - Administer pneumonia vaccine, covid19 vaccine, flu vaccine as appropriate. * DVT prophylaxis - on Xarelto. * Hypertension - Losartan 100mg daily, Amlodipine 10mg daily. * Stroke - Xarelto 20mg daily, Aspirin 81mg daily, failed Xarelto alone. * Hyperlipidemia - Atorvastatin 40mg qhs.. * Atrial fibrillation - Xarelto 20mg daily. * Bilateral lower extremity cellulitis - Keflex 500mg tid thru 03/03/2023. * Neuropathic pain - Gabapentin 100mg tid. * Hypokalemia - KCL 20meq bid. Medications at Discharge Home Medications rivaroxaban 20 mg tablet (Xarelto) 20 mg PO DINNER BLOOD THINNER #0 tabs 12/28/21 aspirin 81 mg chewable tablet 81 mg PO BREAKFAST blood thinner #0 tabs 01/31/23 acetaminophen 500 mg tablet 1,000 mg (2 x 500 mg) PO Q8 pain/fever #0 tabs 02/15/23 amlodipine 10 mg tablet 10 mg PO DAILY blood pressure 30 days #30 tabs 02/15/23 atorvastatin 40 mg tablet 40 mg PO QHS cholesterol 30 days #30 tabs 02/15/23 gabapentin 100 mg capsule 100 mg PO TIDCM nerve pain 30 days #90 caps 02/15/23 losartan 100 mg tablet 100 mg PO DAILY blood pressure 30 days #30 tabs 02/15/23 potassium chloride 20 mEq tablet,extended release 20 meq PO BID supplement 02/22/23 oxycodone 5 mg tablet 5 mg PO Q4H PRN PRN Pain Score 6-10 3 days #18 tabs 03/12/23 Hospital Course Operations None Procedures None Summary of Care Provided Minutes Spent on Discharge: 35 Hospital Course: 72 year old male with below past medical history hospitalized for rhinovirus, pneumonia, bilateral lower extremity cellulitis, admitted to TCU with debility, here for rehabilitation, strengthening, prior to discharge home with son Naeem. Discharge home with son/family 03/15/2023, [facility] PT/OT/SN/WESLEY/SW. Physical Exam Const alert General Appearance: cooperative HEENT normocephalic Eyes PERRL and EOMs intact bilaterally Neck supple, no JVD and no carotid bruits Resp normal respiratory effort, normal air movement and clear to auscultation jorge alberto aterally Cardio regular rate and regular rhythm GI normal to inspection, nondistended, normoactive bowel sounds, non-tender and non-distended Extremity normal capillary refill General Extremity: Negative for edema Skin no rashes or lesions noted General Skin Exam: no breakdown Neuro Neuro Narrative: Right upper extremity hemiplegia. Psych affect normal Appearance: appropriate Weight / BMI Weight Weight: 116.29 kg Body Mass Index (BMI) 41.3 ABG / Lab / Microbiology Data 03/06/23 05:22 03/06/23 05:22 Microbiology: Microbiology 02/28/23 04:55 Nasal Secretion SARS-CoV-2 Antigen (Rapid) - Final D/C Instructions Discharge Diet: No restrictions Discharge Activity: Return to Normal Activity, May Shower and Use Walker Weight Bearing Status: Weight bearing as tolerated Call your doctor if you observe: Fever of 101 or Higher, Inability to urinate, Inability to have a bowel movement, Shortness of breath, Dizziness, Fainting spells, Swelling in the ankles, Chest pain and Uncontrolled pain Additional Instructions: Discharge home with son/family 03/15/2023, [facility] Care PT/OT/SN/WESLEY/SW. Meaningful Use Info Meaningful Use Diagnoses (Choose all that apply): None applicable Discharge Plan Admission Admit Date/Time: 02/26/23 16:50 Primary Reason for Your Visit: Debility. Attending Provider: Low Zheng Chi Primary Care Provider: Shanda Jensen NP Instructions Additional Instructions / Restrictions: Discharge home with son/family 03/15/2023, [facility] Care PT/OT/SN/WESLEY/SW. Discharge Orders/Prescriptions Prescriptions: New oxycodone 5 mg Tablet 5 mg PO Q4H PRN PRN (Reason: Pain Score 6-10) 3 Days Qty: 18 0RF Continued Xarelto 20 mg Tablet 20 mg PO DINNER Qty: 0 0RF aspirin 81 mg Tablet,Chewable 81 mg PO BREAKFAST Qty: 0 0RF atorvastatin 40 mg Tablet 40 mg PO QHS 30 Days Qty: 30 0RF acetaminophen 500 mg Tablet 1,000 mg PO Q8 Qty: 0 0RF amlodipine 10 mg Tablet 10 mg PO DAILY 30 Days Qty: 30 0RF gabapentin 100 mg Capsule 100 mg PO TIDCM 30 Days Qty: 90 0RF losartan 100 mg Tablet 100 mg PO DAILY 30 Days Qty: 30 0RF potassium chloride 20 mEq tablet extended release 20 meq PO BID Rx Instructions: take with food Discontinued oxycodone 5 mg Tablet 5 mg PO Q4H PRN PRN (Reason: Pain Score 6-10) 7 Days Qty: 42 0RF cephalexin 500 mg capsule 500 mg PO TID Qty: 15 0RF Referrals / Follow Up: Shanda Jensen NP, [facility] MACHINE OPERATOR-C [Primary Care Provider] - 03/30/23 2:00 pm ([phone] is a good number to call. They will have the Doctors office call if they have an earlier appointment. They will do their best to get him in sooner than scheduled. This is the same day that he was to have a 3 month check up for his back) Disposition Disposition (needs filled in before D/C Order can be placed): Home Health Ser vice
[2023-03-12 21:00] VITALS: RESP 18
[2023-03-12] MEDS: Senna/Docusate Sodium 1 Tablet PO (21:10)
[2023-03-12] MEDS: Atorvastatin Calcium 40 MG Tablet PO (21:11)
[2023-03-13] MEDS: Cephalexin 500 MG Capsule PO ×4 (01:14→17:13)
[2023-03-13 05:40] LABS: Absolute Lymphocyte Count 1.45 X10^3/uL (0.83-4.51); Absolute Neutrophil Count 4.8 X10^3/uL (2.0-7.7); Basophil# 0.03 X10^3/uL; Basophil% 0.4 % (0-1); Eosinophils% 6.7 % (0-5); Hematocrit 40.4 % (40-54); Hemoglobin 13.3 g/dL (13.0-16.5); Lymphocyte # 1.45 X10^3/ul (0.83-4.51); Lymphocyte % 19.3 % (19-41); Mean Corp Hgb Conc 32.9 g/dL (32-36); Mean Corpuscular Hgb 31.4 pg (27.0-32.0); Mean Corpuscular Volume 95.3 fL (80-94); Mean Platelet Vol. 9.5 fl (6.2-12.0); Monocyte# 0.67 X10^3/uL; Monocyte% 8.9 % (0-10); NRBC Flagged by Analyzer 0 % (0-5); Neutrophil # 4.83 X10^3/uL (2.7-7.7); Neutrophil % 64.4 % (47-70); Platelet Count 219 K/mm3 (150-450); RBC Distribution Width CV 14.6 % (11.6-14.6); Red Blood Count 4.24 M/mm3 (4.6-6.2); White Blood Count 7.5 K/mm3 (4.4-11.0)
[2023-03-13] MEDS: Acetaminophen 500 MG Tablet 1000 MG PO ×3 (05:40→21:48)
[2023-03-13 06:11] LABS: Anion Gap 4 (5-15); BUN 21 mg/dL (7-18); BUN/Creat Ratio 22.3 RATIO (10-20); Calcium,Total 8.3 mg/dL (8.5-10.1); Chloride 110 mmol/L (98-107); Creatinine, Serum 0.94 mg/dL (0.70-1.30); EST Glomerular Filtration Rate 83 mL/min (>60); Est Glom Filt Rate - Afr Amer 101 mL/min (>60); Estimated Creatinine Clearance 63.16 ml/min; Glucose 92 mg/dL (74-106); Sodium Level 140 mmol/L (136-145)
[2023-03-13] MEDS: Menthol/Lanolin/Calamine/Znox 113 GM Tube 1 APPLIC TOPICAL ×2 (09:08→21:50)
[2023-03-13] MEDS: Gabapentin 100 MG Capsule PO ×3 (09:08→17:13)
[2023-03-13] MEDS: Miconazole Nitrate 43 GM Bottle 1 APPLIC TOPICAL ×2 (09:08→21:50)
[2023-03-13] MEDS: Potassium Chloride Oral Tablet 20 MEQ PO ×2 (09:08→21:47)
[2023-03-13] MEDS: Losartan Potassium 100 MG Tablet PO (09:08)
[2023-03-13] MEDS: amLODIPine 10 MG Tablet PO (09:08)
[2023-03-13] MEDS: Doxycycline 100 MG CAPSULE PO ×2 (09:08→21:47)
[2023-03-13] MEDS: Aspirin 81 MG TAB.CHEW PO (09:08)
[2023-03-13 09:22] VITALS: BP 115/70; PULSE 53
[2023-03-13 11:11] VITALS: BMI 41.5
[2023-03-13] MEDS: oxyCODONE 5 MG Tablet PO ×2 (14:04→21:47)
[2023-03-13 14:05] VITALS: PULSE 73
[2023-03-13 16:00] VITALS: BP 100/62; PULSE 51; RESP 16; TEMP 36.2; O2SAT 97
[2023-03-13] MEDS: Rivaroxaban 20 MG Tablet PO (17:13)
[2023-03-13] MEDS: Atorvastatin Calcium 40 MG Tablet PO (21:47)
[2023-03-14] MEDS: Cephalexin 500 MG Capsule PO ×5 (00:43→23:25)
[2023-03-14] MEDS: Acetaminophen 500 MG Tablet 1000 MG PO ×3 (05:01→21:06)
[2023-03-14] MEDS: Gabapentin 100 MG Capsule PO ×3 (07:39→17:47)
[2023-03-14] MEDS: oxyCODONE 5 MG Tablet PO ×2 (07:41→23:25)
[2023-03-14] MEDS: amLODIPine 10 MG Tablet PO (09:50)
[2023-03-14] MEDS: Aspirin 81 MG TAB.CHEW PO (09:50)
[2023-03-14] MEDS: Losartan Potassium 100 MG Tablet PO (09:50)
[2023-03-14] MEDS: Doxycycline 100 MG CAPSULE PO ×2 (09:50→21:06)
[2023-03-14] MEDS: Potassium Chloride Oral Tablet 20 MEQ PO ×2 (09:50→21:06)
[2023-03-14] MEDS: Miconazole Nitrate 43 GM Bottle 1 APPLIC TOPICAL ×2 (09:50→21:07)
[2023-03-14] MEDS: Menthol/Lanolin/Calamine/Znox 113 GM Tube 1 APPLIC TOPICAL ×2 (09:51→21:08)
[2023-03-14] MEDS: Senna/Docusate Sodium 1 Tablet PO (09:51)
[2023-03-14 09:53] VITALS: BP 116/68; PULSE 65; RESP 18; O2SAT 96
[2023-03-14 13:50] VITALS: BP 110/58; PULSE 64; RESP 16; TEMP 36.5; O2SAT 92
[2023-03-14] MEDS: Rivaroxaban 20 MG Tablet PO (17:46)
--- NOTE | 2023-03-14 18:38 | NURSING ---
pt continues to c/o pain BLE's, possibly related to neuropathy. dr trevizo updated, new order for neurontin 300mg at hs.
[2023-03-14] MEDS: Gabapentin 300 MG Capsule PO (21:06)
[2023-03-14] MEDS: Atorvastatin Calcium 40 MG Tablet PO (21:06)
[2023-03-15] MEDS: Acetaminophen 500 MG Tablet 1000 MG PO ×2 (06:27→13:47)
[2023-03-15] MEDS: Cephalexin 500 MG Capsule PO ×2 (06:27→12:07)
[2023-03-15] MEDS: oxyCODONE 5 MG Tablet PO (06:29)
[2023-03-15 06:37] VITALS: O2SAT 95
[2023-03-15] MEDS: Gabapentin 100 MG Capsule PO ×3 (08:10→17:48)
[2023-03-15] MEDS: Miconazole Nitrate 43 GM Bottle 1 APPLIC TOPICAL (08:10)
[2023-03-15] MEDS: Potassium Chloride Oral Tablet 20 MEQ PO (08:11)
[2023-03-15] MEDS: Aspirin 81 MG TAB.CHEW PO (08:12)
[2023-03-15] MEDS: amLODIPine 10 MG Tablet PO (08:13)
[2023-03-15] MEDS: Losartan Potassium 100 MG Tablet PO (08:13)
[2023-03-15] MEDS: Doxycycline 100 MG CAPSULE PO (08:14)
[2023-03-15] MEDS: Menthol/Lanolin/Calamine/Znox 113 GM Tube 1 APPLIC TOPICAL (08:15)
--- NOTE | 2023-03-15 11:41 | CASEMGMT ---
Social Work BIMS () and PHQ-2 () completed for MDS assessment. Danica Ching MSW COMMUNITY RECREATION COORDINATOR
[2023-03-15 16:00] VITALS: BP 134/86; PULSE 69; RESP 18; TEMP 36.3; O2SAT 96
== END 2023-03-15 18:15 | disposition home health service (06) | DRG 602 ==
PROVIDERS: Admitting Provider Family Medicine Geriatric Medicine; PCP Nurse Practitioner Family; Visit Provider Family Medicine Geriatric Medicine
DX: L03.115 Cellulitis of right lower limb (principal); J18.9 Pneumonia, unspecified organism; I69.351 Hemiplegia and hemiparesis following cerebral infarction affecting right dominant side; I48.91 Unspecified atrial fibrillation; G62.9 Polyneuropathy, unspecified; B97.89 Other viral agents as the cause of diseases classified elsewhere; I10 Essential (primary) hypertension; E78.5 Hyperlipidemia, unspecified; E87.6 Hypokalemia; I25.10 Atherosclerotic heart disease of native coronary artery without angina pectoris; L03.116 Cellulitis of left lower limb; Z95.5 Presence of coronary angioplasty implant and graft; Z87.891 Personal history of nicotine dependence; Z79.899 Other long term (current) drug therapy; Z79.01 Long term (current) use of anticoagulants; Z79.82 Long term (current) use of aspirin; Z28.21 Immunization not carried out because of patient refusal
CPT/HCPCS: 36415; 80048; 85025; 87811; 92526; 92610; 94640; 97110; 97116; 97162; 97166; 97530; 97535

== ENCOUNTER 2023-03-16 17:16 | Observation (INO) | payer MEDICARE, SELFPAY ==
[2023-03-16 17:17] VITALS: BP 157/135; PULSE 73; RESP 16; TEMP 36.4; O2SAT 97; BMI 42.3
--- NOTE | 2023-03-16 17:28 | CT_ITS ---
STUDY: CT BRAIN WITHOUT CONTRAST REASON FOR EXAM: Male, 72 years old. Head injury on anticoagulant RADIATION DOSAGE (If Supplied By Facility): CTDIvol = ( 44.99 ) mGy, DLP = ( 880.47 ) mGycm TECHNIQUE: Transaxial CT imaging of the brain was performed without administration of intravenous contrast material. Individualized dose optimization techniques were used for this CT. COMPARISON: January 28, 2023 FINDINGS: Normal soft tissue structures. Normal calvarium. Calcific plaquing of the cavernous carotid and vertebral arteries. Vertebrobasilar dolichoectasia consistent with systemic hypertension Mild atrophy and periventricular white matter ischemic changes. Old deep white matter infarct in the left frontal parietal region Normal basal ganglia and thalami. Normal brainstem. Diffuse cerebellar atrophy. There is no intracranial hemorrhage. There are no findings of an acute ischemic infarction. Mucosal thickening of left maxillary and ethmoid sinuses. Postsurgical changes of the orbits CT/Brain/Head without Contrast IMPRESSION: Mild atrophy and periventricular white matter ischemic changes. Old deep white matter infarct on the left No evidence for acute intracranial hemorrhage Electronically Signed: Villa Rodrigues MD at 18:37 EST ,
--- NOTE | 2023-03-16 17:28 | EKG12_ITS ---
Test Reason : FALL Blood Pressure : / mmHG Vent. Rate : 053 BPM Atrial Rate : 000 BPM P-R Int : 000 ms QRS Dur : 130 ms QT Int : 446 ms P-R-T Axes : 000 -47 119 degrees QTc Int : 418 ms Atrial fibrillation with slow ventricular response Left axis deviation Non-specific intra-ventricular conduction block Abnormal ECG Confirmed by DAVE GLASS, DEZ ([id number]), assignment desk editor GINGER YAN ([id number]) on 03/21/2023 12:32:16 PM Referred By: TANIKA Confirmed By:DEZ ACOSTA MD
[2023-03-16] MEDS: Ondansetron 4 MG/2 ML Vial IV (17:54)
[2023-03-16] MEDS: Morphine 4 MG/ML Syringe IV (17:54)
[2023-03-16 18:05] LABS: Absolute Lymphocyte Count 0.95 X10^3/uL (0.83-4.51); Absolute Neutrophil Count 9.8 X10^3/uL (2.0-7.7); Basophil# 0.04 X10^3/uL; Basophil% 0.3 % (0-1); Eosinophil# 0.43 X10^3/uL; Eosinophils% 3.5 % (0-5); Hematocrit 43.5 % (40-54); Hemoglobin 14.6 g/dL (13.0-16.5); Lymphocyte # 0.95 X10^3/ul (0.83-4.51); Lymphocyte % 7.8 % (19-41); Mean Corp Hgb Conc 33.6 g/dL (32-36); Mean Corpuscular Hgb 30.9 pg (27.0-32.0); Mean Platelet Vol. 9.3 fl (6.2-12.0); Monocyte# 0.84 X10^3/uL; Monocyte% 6.9 % (0-10); NRBC Flagged by Analyzer 0 % (0-5); Platelet Count 225 K/mm3 (150-450); RBC Distribution Width CV 14.3 % (11.6-14.6); Red Blood Count 4.73 M/mm3 (4.6-6.2); White Blood Count 12.1 K/mm3 (4.4-11.0)
--- NOTE | 2023-03-16 18:15 | RAD_ITS ---
STUDY: X-RAY - RIGHT SHOULDER REASON FOR EXAM: Male, 72 years old. Injury/Pain TECHNIQUE: 3 view(s) of the shoulder. COMPARISON: January 18, 2023. FINDINGS: Narrowed glenohumeral articulation. Normal acromioclavicular joint. Normal acromion. Markedly narrowed subacromial space consistent with rotator cuff tear. Normal humeral head and visualized proximal humerus. The soft tissue structures are unremarkable. Normal visualized pulmonary apex. No significant change since prior exam RAD/Shoulder min 2 Views IMPRESSION: Degenerative changes and findings consistent with rotator cuff tendon tear. No acute fracture. Electronically Signed: Villa Rodrigues MD at 19:00 EST ,
--- NOTE | 2023-03-16 18:15 | RAD_ITS ---
STUDY: X-RAY - PELVIS AND RIGHT HIP REASON FOR EXAM: Male, 72 years old. Injury/Pain TECHNIQUE: 3 views of the pelvis and hip. COMPARISON: None. FINDINGS: There is a non-specific bowel gas pattern. Normal visualized soft tissue structures. Normal bilateral iliac wings, sacroiliac joints and visualized sacrum. Normal bilateral superior and inferior pubic rami. Normal pubic symphysis. Normal bilateral ischial tuberosities. Normal visualized femoral head. Normal acetabulum. Normal hip joint. RAD/HIP, UNI W/ Pelvis 2-3 Views IMPRESSION: Normal x-ray examination of the pelvis and hip. Electronically Signed: Villa Rodrigues MD at 19:01 EST ,
--- NOTE | 2023-03-16 18:19 | EX.ED.GENINJ ---
HPI History of Present Illness Chief Complaint: Fall Detail of Chief Complaint: Head trauma and shoulder and hip pain Informant: patient and family Onset/Context/Timing Onset: Today (Fell earlier this morning was on floor until family member returned to home) Mechanism/Context: Blunt Injury and Fall Location of pain/injuries: Right shoulder and Right hip Location: Head Current Severity: Mild Maximum Severity: Severe Worsened by: Bit of right upper extremity and right lower extremity Relieved by: Hip pain if he remains still arm pain is constant Associated Symptoms Associated Symptoms: Positive for Loss of function (Right side after prior stroke.) Length of loss of consciousness: Patient denies. He was dazed. Narrative Narrative: Patient is an elderly male with multiple medical problems who was admitted on February 22 and discharged on February 26 to the TCU. He was admitted for pneumonia, cellulitis and lymphedema. He was admitted from home. He was admitted February 15 for acute left CVA with right hemiplegia. He was subsequently sent to the transition unit. He was discharged in the transition unit yesterday. Those notes are reviewed. He presents because he fell and was on the floor since early this morning. He does complain of head pain. He denies double vision, blurred vision loss of vision. [place] ringing's ears. He denies chest pain or shortness of breath. Does complain of right shoulder pain. He also complains of right hip pain. Son noted that his leg was externally rotated when he found him at home. Patient denies urinary symptoms. Patient is on Xarelto for atrial fibrillation per family. Patient was asked why he did not go to a fdc and his response was I cannot afford to pay $5-$6000 a month for fdc care. Prior similar symptoms: No Recent Illness/Hospitalization: Yes [facility] Medical History Anomalous origin of coronary artery Arthritis Atherosclerotic heart disease of [place] coronary artery without angina pectoris Atrial fibrillation Benign neoplasm of middle ear, nasal cavity and accessory sinuses BPH (benign prostatic hyperplasia) Cardiac murmur, unspecified Cellulitis Cellulitis of right lower limb Cervical disc disease Chronic venous stasis dermatitis of both lower extremities CPAP (continuous positive airway pressure) dependence CVA (cerebral vascular accident) Deep venous thrombosis Dyspnea on minimal exertion Essential (primary) hypertension Former smoker FTT (failure to thrive) in adult GERD (gastroesophageal reflux disease) Hyperglycemia Hyperlipidemia Leg pain Low back pain Lymphedema Lymphedema of both lower extremities New onset atrial fibrillation (03/24/20) 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 Obesity ANDREE (obstructive sleep apnea) Pain in right lower leg Pain of left great toe Pain of left lower extremity due to injury Pneumonia Rotator cuff tear arthropathy of right shoulder Skin ulcer of left great toe with fat layer exposed Sleep apnea Toe ulcer Traumatic hematoma of left lower leg Venous insufficiency Home Medications rivaroxaban 20 mg tablet (Xarelto) 20 mg PO DINNER BLOOD THINNER #0 tabs 12/28/21 [Rx Last Taken 02/25/23] aspirin 81 mg chewable tablet 81 mg PO BREAKFAST blood thinner #0 tabs 01/31/23 [Rx Last Taken 02/26/23] acetaminophen 500 mg tablet 1,000 mg (2 x 500 mg) PO Q8 pain/fever #0 tabs 02/15/23 [Rx Last Taken Unknown] potassium chloride 20 mEq tablet,extended release 20 meq PO BID supplement 02/22/23 [History Last Taken Unknown] oxycodone 5 mg tablet 5 mg PO Q4H PRN PRN Pain Score 6-10 3 days #18 tabs 03/12/23 [Rx Last Taken Unknown] amlodipine 10 mg tablet 10 mg PO DAILY blood pressure 30 days #30 tabs 03/15/23 [Rx Last Taken Unknown] atorvastatin 40 mg tablet 40 mg PO QHS cholesterol 30 days #30 tabs 03/15/23 [Rx Last Taken Unknown] losartan 100 mg tablet 100 mg PO DAILY blood pressure 30 days #30 tabs 03/15/23 [Rx Last Taken Unknown] gabapentin 100 mg capsule 100 mg PO TIDCM nerve pain 30 days #90 caps 03/16/23 [Rx Last Taken Unknown] Allergy/AdvReac Type Severity Reaction Status Date / Time apixaban [From Eliquis] AdvReac Intermediate Wet the Verified 03/16/23 17:17 bed: found out later had UTI ibuprofen [From Motrin] AdvReac Nausea Verified 03/16/23 17:17 Family History Mother CAD (coronary artery disease) Hypertension History of cardiac radiofrequency ablation Sister Hypertension Other Arthritis Surgical History H/O cervical spine surgery History of bursectomy History of carpal tunnel release History of carpal tunnel surgery History of coronary artery stent placement (11/29/10) History of coronary artery stent placement History of fusion of cervical spine History of herniorrhaphy History of removal of cyst History of transurethral resection of prostate Social History household members: other details: Older son Naeem. Smoking Status: Former smoker alcohol intake: current details: occasional substance use type: does not use ROS ROS ED Constitutional Constitutional ED: Denies chills, fever(s), subjective or sweats Eyes Eyes: Denies blurry vision or change in vision ENT ENT ED: Denies ear pain, rhinorrhea or sore throat Cardiovascular Cardiovascular: Denies chest pain, palpitations, paroxysmal nocturnal dyspnea or racing heartbeat Respiratory/Chest Respiratory/Chest: Denies cough, dyspnea, dyspnea on exertion or paroxysmal nocturnal dyspnea Gastrointestinal Gastrointestinal: Denies abdominal pain, melena, nausea or vomiting Genitourinary Genitourinary ED: Denies dysuria, hematuria or urinary frequency Musculoskeletal Musculoskeletal: Reports back pain and other Details: Has paralumbar discomfort to palpation not midline. There is pain with internal/external rotation of the right hip. Patient also has pain to palpation over the clavicle and proximal humerus. ; Denies arthralgias, myalgias or neck pain Integumentary Reports other Details: Stasis dermatitis right and left lower extremity. ; Denies abscess, Abrasions or rash Neurologic Neurologic: Reports headache(s), paresthesias and weakness Psychiatric Psychiatric: Denies anxiety Endocrine Endocrinology: Denies cold intolerance or heat intolerance Hematologic/Lymphatic Hematologic/Lymphatic: Reports easy bruising; Denies easy bleeding Allergic/Immunologic Allergic/Immunologic ED: Denies mouth swelling, tongue swelling or urticaria EXAM Physical Exam Const Vital Signs: 03/16/23 17:17 03/16/23 17:24 Temperature 97.5 F L Temperature Source Oral Pulse Rate 73 Respiratory Rate 16 Respiratory Effort Normal Non-Labored Respiratory Depth Normal Respiratory Pattern Normal Blood Pressure 157/135 H Blood Pressure Mean 142 Pulse Ox 97 Oxygen Delivery Method Room Air Room Air Positive well nourished, well developed and obese Constitutional Narrative: Peers uncomfortable. He grunts occasionally. General Appearance ED: well developed; Negative for NAD Nutritional Appearance: obese HEENT Reports TM's clear HEENT Narrative: No evidence of basilar skull fracture clinically. Does have evidence of blunt trauma to his head. trauma and tenderness Nose: Negative for septum abnormal Tympanic Membrane ED: Yes TM's clear Eyes PERRL and EOMs intact bilaterally General Eye ED: Yes other Other Details: Subconjunctival hemorrhage. Conjunctive is pink. Neck General: Negative for tenderness Chest Wall inspection of chest normal and palpation of chest normal Resp normal respiratory effort and clear to auscultation bilaterally Cardio S1 normal heart sound, S2 normal heart sound and no murmurs Rhythm: abnormal rhythm irregularly irregular GI normal to inspection, nondistended, normoactive bowel sounds, non-tender, non-distended and no masses Back/Spine normal to inspection; Negative for no thoracic nor lumbar tenderness Back/Spine Narrative: Lumbar discomfort on the left side. Thoracic Spine / Upper Back: thoracic spinal tenderness Extremity Negative for normal to inspection Extremity Narrative: Stasis dermatitis bilaterally Neuro oriented x3, CN's II-XII intact bilaterally and No moves all extremities Neuro Narrative: Unable to move his right upper or right lower extremity. Karthik Coma Scale: document GCS findings Spontaneous Obeys Commands Oriented 15 Sensorium / Orientation: alert Motor Exam: Negative for strength 5/5 throughout Plantar Reflex: Downgoing: left and Upgoing (positive Babinski): right Psych mental status grossly normal and thought process normal Skin Skin Narrative: Stasis dermatitis lower extremities. MDM MDM MDM Narrative Medical decision making narrative: Head was obtained to rule out intracranial bleed since he has history of head trauma with headache and on anticoagulant, Xarelto. Electrolyte panel was obtained to assess renal function as well as electrolytes. X-ray of the shoulder and hip to rule out fracture. CPK since he was on the floor for 10 to 12 hours to rule out rhabdomyolysis. Lab Data Attestation: I reviewed the patient's lab results. Lab results narrative: On his cellular bed 12.1 with mild shift. This may be due to the fact that he was laying on the floor and stress response due to blunt trauma Labs: Laboratory Results - last 24 hr 03/16/23 17:49 WBC 12.1 H RBC 4.73 Hgb 14.6 Hct 43.5 MCV 92.0 MCH 30.9 MCHC 33.6 RDW Std Deviation 48.0 H RDW Coeff of Naz 14.3 Plt Count 225 MPV 9.3 Immature Gran % (Auto) 0.500 Neut % (Auto) 81.0 H Lymph % (Auto) 7.8 L Williamson % (Auto) 6.9 Eos % (Auto) 3.5 Baso % (Auto) 0.3 Absolute Neuts (auto) 9.8 H Absolute Lymphs (auto) 0.95 Nucleated RBC % 0 Sodium 140 Potassium 3.8 Chloride 110 H Carbon Dioxide 25.0 Anion Gap 5 BUN 14 Creatinine 0.86 Estim Creat Clear Calc 69.03 Est GFR (MDRD) Af Amer 113 Est GFR (MDRD) Non-Af 93 BUN/Creatinine Ratio 16.4 Glucose 143 H Calcium 8.9 Total Creatine Kinase 95 Radiography Chest X-Ray - ED: 2 View (X-ray of the shoulder is suboptimal. There is no obvious fracture, subluxation or dislocation noted. There is some mild degenerative changes. This is infinitely reviewed interpreted by me at 1828.) and Read by ED Physician (X-ray of the right hip was independently reviewed interpreted by me at 1828 and is negative for fracture, subluxation or dislocation of the femur or pelvis.) Diagnostic Testing: Clinical Impression(s) from Imaging Studies Brain CT 03/16/23 17:28 IMPRESSION: Mild atrophy and periventricular white matter ischemic changes. Old deep white matter infarct on the left No evidence for acute intracranial hemorrhage Electronically Signed: Villa Rodrigues MD at 18:37 EST Reading Location ID and State: [facility] / [place] Tel , Service support , Head was reviewed by me and reveals no acute bleed i.e. subdural, epidural, traumatic subarachnoid hemorrhage or intraparenchymal bleed. Awaiting formal read by me just. EKG Initial EKG: Attestation: I personally reviewed and interpreted this EKG as follows: Interpretation: Atrial Fibrillation (Rate is 53. QRS duration 130 ms. QT duration 446 ms. [place] is to the left. There is evidence of LVH. There is also evidence of a nonspecific intraventricular conduction delay.) Management Discussion w/another healthcare provider: Hospitalist Discharge Plan Triage Chief Complaint: Fall ED Provider: Hernandez,Rudy Dx/Rx/DC Orders Clinical Impression: Injury due to fall, Debility, Hypertension, Atrial fibrillation, Closed head injury, Acute pain of right shoulder, Acute pain of right hip, Anticoagulant long-term use, Hemiplegia affecting right dominant side Prescriptions: No Action Xarelto 20 mg Tablet 20 mg PO DINNER Qty: 0 0RF aspirin 81 mg Tablet,Chewable 81 mg PO BREAKFAST Qty: 0 0RF acetaminophen 500 mg Tablet 1,000 mg PO Q8 Qty: 0 0RF oxycodone 5 mg Tablet 5 mg PO Q4H PRN PRN (Reason: Pain Score 6-10) 3 Days Qty: 18 0RF atorvastatin 40 mg Tablet 40 mg PO QHS 30 Days Qty: 30 0RF amlodipine 10 mg Tablet 10 mg PO DAILY 30 Days Qty: 30 0RF losartan 100 mg Tablet 100 mg PO DAILY 30 Days Qty: 30 0RF gabapentin 100 mg Capsule 100 mg PO TIDCM 30 Days Qty: 90 0RF potassium chloride 20 mEq tablet extended release 20 meq PO BID Rx Instructions: take with food Primary Care Provider: Shanda Jensen NP Referrals: Shanda Jensen NP, [employer] [Primary Care Provider] - Disposition Disposition: Acute Care Hospital [facility]
[2023-03-16 18:20] LABS: Anion Gap 5 (5-15); BUN 14 mg/dL (7-18); BUN/Creat Ratio 16.4 RATIO (10-20); Calcium,Total 8.9 mg/dL (8.5-10.1); Chloride 110 mmol/L (98-107); Creatinine, Serum 0.86 mg/dL (0.70-1.30); EST Glomerular Filtration Rate 93 mL/min (>60); Est Glom Filt Rate - Afr Amer 113 mL/min (>60); Estimated Creatinine Clearance 69.03 ml/min; Glucose 143 mg/dL (74-106); Potassium 3.8 mmol/L (3.5-5.1); Sodium Level 140 mmol/L (136-145)
[2023-03-16 18:24] LABS: CPK Total, Creatine Kinase 95 U/L (39-308)
--- NOTE | 2023-03-16 18:46 | PCM.HP.STD ---
HPI - General General Date of Admission: 03/16/23 Date of Service: 03/16/23 Chief Complaint: Fall, inability to care for self at home, recent TCU discharge. HPI Narrative The patient is a 72 y/o M w/ PMHx: PAF, CAD, Hx CVA, ANDREE on BIPAP, BPH, HTN, HLD, Former tobacco use, Chronic BL LE venous stasis disease, Chronic BL LE lymphedema, admit 01/28/23-01/31/23 with PAF with bradycardia, Acute CVA w/ right sided hemiplegia/dysarthria with then transition to TCU, readmission inpatient 02/22/2023-02/26/2023 secondary to bilateral viral rhinoviral pneumonia as well as cellulitis complicated by underlying lymphedema discharged on completion antibiotic regimen of oral Keflex specifically transition to transitional care unit with discharge to home on 03/16/2023 now representing to the [facility] ED on 03/16/23 with mechanical fall earlier in the morning however only found by family later in the day with trauma of the right side of the head as well as the right shoulder and right hip with notable discomfort to the right upper and lower extremities reporting pain is primarily constant in the arm. Unfortunately the patient is unable to transition to skilled facility from TCU secondary to finances per his report. Work-up in the ED included T97.5, heart rate 73, BP 157/135, respiratory rate 97, CBC with WBC 12.1, hemoglobin 14.6, platelet 225 with left shift, BMP with rate 110, glucose 123 otherwise not marked appearing, total creatinine kinase 95, CT the brain with mild atrophy and periventricular white matter ischemic changes with old deep white matter infarct on the left with no evidence of any acute intracranial findings, plain film of the right hip and pelvis with no acute findings, plain film of the right shoulder with degenerative changes and findings possibly consistent with a rotator cuff tendon tear but no acute fracture and unclear chronicity of the rotator cuff tendon injury, EKG with rate controlled atrial fibrillation. In the ED patient ministered Zofran 4 mg IV x1, morphine 4 mg IV x1 as well as maintenance IV fluids. [facility] Medical History Anomalous origin of coronary artery Arthritis Atherosclerotic heart disease of [place] coronary artery without angina pectoris Atrial fibrillation Benign neoplasm of middle ear, nasal cavity and accessory sinuses BPH (benign prostatic hyperplasia) Cardiac murmur, unspecified Cellulitis Cellulitis of right lower limb Cervical disc disease Chronic venous stasis dermatitis of both lower extremities CPAP (continuous positive airway pressure) dependence CVA (cerebral vascular accident) Deep venous thrombosis Dyspnea on minimal exertion Essential (primary) hypertension Former smoker FTT (failure to thrive) in adult GERD (gastroesophageal reflux disease) Hyperglycemia Hyperlipidemia Leg pain Low back pain Lymphedema Lymphedema of both lower extremities New onset atrial fibrillation (03/24/20) 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 Obesity ANDREE (obstructive sleep apnea) Pain in right lower leg Pain of left great toe Pain of left lower extremity due to injury Pneumonia Rotator cuff tear arthropathy of right shoulder Skin ulcer of left great toe with fat layer exposed Sleep apnea Toe ulcer Traumatic hematoma of left lower leg Venous insufficiency Home Medications rivaroxaban 20 mg tablet (Xarelto) 20 mg PO DINNER BLOOD THINNER #0 tabs 12/28/21 [Rx Last Taken 02/25/23] aspirin 81 mg chewable tablet 81 mg PO BREAKFAST blood thinner #0 tabs 01/31/23 [Rx Last Taken 02/26/23] acetaminophen 500 mg tablet 1,000 mg (2 x 500 mg) PO Q8 pain/fever #0 tabs 02/15/23 [Rx Last Taken Unknown] potassium chloride 20 mEq tablet,extended release 20 meq PO BID supplement 02/22/23 [History Last Taken Unknown] oxycodone 5 mg tablet 5 mg PO Q4H PRN PRN Pain Score 6-10 3 days #18 tabs 03/12/23 [Rx Last Taken Unknown] amlodipine 10 mg tablet 10 mg PO DAILY blood pressure 30 days #30 tabs 03/15/23 [Rx Last Taken Unknown] atorvastatin 40 mg tablet 40 mg PO QHS cholesterol 30 days #30 tabs 03/15/23 [Rx Last Taken Unknown] losartan 100 mg tablet 100 mg PO DAILY blood pressure 30 days #30 tabs 03/15/23 [Rx Last Taken Unknown] gabapentin 100 mg capsule 100 mg PO TIDCM nerve pain 30 days #90 caps 03/16/23 [Rx Last Taken Unknown] Allergy/AdvReac Type Severity Reaction Status Date / Time ibuprofen [From Motrin] AdvReac Nausea Verified 03/16/23 17:17 Family History Mother CAD (coronary artery disease) Hypertension History of cardiac radiofrequency ablation Sister Hypertension Other Arthritis Surgical History H/O cervical spine surgery History of bursectomy History of carpal tunnel release History of carpal tunnel surgery History of coronary artery stent placement (11/29/10) History of coronary artery stent placement History of fusion of cervical spine History of herniorrhaphy History of removal of cyst History of transurethral resection of prostate Social History (Updated 03/16/23 @ 21:[address] Lizeth Wilson MD) household members: other details: Older son Naeem. Smoking Status: Former smoker alcohol intake: never substance use type: does not use ROS ROS Narrative Admission Review of Systems: CONSTITUTIONAL: No weight loss, fever, chills, + weakness or fatigue. HEENT: Eyes: No visual loss, blurred vision, double vision or yellow sclerae. Ears, Nose, Throat: No hearing loss, sneezing, congestion, runny nose or sore throat. SKIN: No rash or itching, lesions, wounds except + BL LE venous stasis skin changes, occasional staged ecchymoses and abrasion. CARDIOVASCULAR: No chest pain, chest pressure or chest discomfort, palpitations, edema, orthopnea, syncopal events. RESPIRATORY: No shortness of breath, cough or sputum, wheezing, hemoptysis. GASTROINTESTINAL: No anorexia, nausea, vomiting or diarrhea, abdominal pain, melena, BRBPR. GENITOURINARY: No dysuria, frequency, urgency or retention. NEUROLOGICAL: + Recent CVA with right-sided hemiplegia and dysarthria. No headache, dizziness, syncope, change in bowel or bladder control, seizure. MUSCULOSKELETAL: + muscle, back pain, joint pain or stiffness. HEMATOLOGIC: No anemia. + Easy bleeding or bruising. LYMPHATICS: No enlarged nodes. No history of splenectomy. PSYCHIATRIC: No history of depression or anxiety. ENDOCRINOLOGIC: No reports of sweating, cold or heat intolerance. No polyuria or polydipsia. ALLERGIES: No history of asthma, hives, eczema or rhinitis. Vital Signs Vital Signs Vital Signs: 03/16/23 17:17 03/16/23 17:24 Temperature 97.5 F L Temperature Source Oral Pulse Rate 73 Respiratory Rate 16 Respiratory Effort Normal Non-Labored Respiratory Depth Normal Respiratory Pattern Normal Blood Pressure 157/135 H Blood Pressure Mean 142 Pulse Ox 97 Oxygen Delivery Method Room Air Room Air Weight Weight: 262 lb 5.601 oz Body Mass Index (BMI) 42.3 Physical Exam Narrative Physical Examination: General: Awake, alert, oriented x 3 and cooperative, laying in the ED bed, fatigued. Skin: Normal color, normal turgor, no icterus, no cyanosis except for very staged abrasions, ecchymoses, venous stasis skin changes bilateral lower extremities. HEENT: AT/NC, EOMI, PERRLA, mildly dry MM, no carotid bruits or JVD noted; however, very thickened neck makes evaluation difficult. Lungs: Mildly diminished, greater bases, appropriate effort no rales, ronchi or wheezing. Heart: Irregular, bradycardic; no gallop, rub audible, discomfort to palpation of the right lateral ribs where patient fell. Abdomen: Soft, morbidly obese, NTTP, distant BS, unable to discern distention or HSM given habitus. Extremities: No cyanosis, no clubbing, see skin, notable pedal to proximal [place] 1-2+ pitting edema, chronic lymphedema. Neurological: Patient awake, alert, oriented as noted, cognitive function currently baseline intact; pupils equally reactive to light and accommodation, cranial nerves grossly normal, status history of VA with significant right-sided hemiplegia and ongoing dysarthria. Psychiatric: Affect appears fatigued otherwise normal, no acute evidence of depressive or anxiety feelings. Results Lab / Micro Data 03/16/23 17:49 03/16/23 17:49 Labs: Laboratory Results - last 24 hr 03/16/23 17:49: WBC 12.1 H, RBC 4.73, Hgb 14.6, Hct 43.5, MCV 92.0, MCH 30.9, MCHC 33.6, RDW Std Deviation 48.0 H, RDW Coeff of Naz 14.3, Plt Count 225, MPV 9.3, Immature Gran % (Auto) 0.500, Neut % (Auto) 81.0 H, Lymph % (Auto) 7.8 L, [place] % (Auto) 6.9, Eos % (Auto) 3.5, Baso % (Auto) 0.3, Absolute Neuts (auto) 9.8 H, Absolute Lymphs (auto) 0.95, Nucleated RBC % 0, Sodium 140, Potassium 3.8, Chloride 110 H, Carbon Dioxide 25.0, Anion Gap 5, BUN 14, Creatinine 0.86, Estim Creat Clear Calc 69.03, Est GFR (MDRD) Af Amer 113, Est GFR (MDRD) Non-Af 93, BUN/Creatinine Ratio 16.4, Glucose 143 H, Calcium 8.9, Total Creatine Kinase 95 Imagaing Radiology Impression Brain CT 03/16/23 17:28 IMPRESSION: Mild atrophy and periventricular white matter ischemic changes. Old deep white matter infarct on the left No evidence for acute intracranial hemorrhage Electronically Signed: Villa Rodrigues MD at 18:37 EST , Assessment & Plan Assessment/Plan (1) Adult failure to thrive: PLAN: Plan The patient is a 72 y/o M w/ PMHx: PAF, CAD, Hx CVA, ANDREE on BIPAP, BPH, HTN, HLD, Former tobacco use, Chronic BL LE venous stasis disease, Chronic BL LE lymphedema, admit 01/28/23-01/31/23 with PAF with bradycardia, Acute CVA w/ right sided hemiplegia/dysarthria with then transition to TCU, readmission inpatient 02/22/2023-02/26/2023 secondary to bilateral viral rhinoviral pneumonia as well as cellulitis complicated by underlying lymphedema discharged on completion antibiotic regimen of oral Keflex specifically transition to transitional care unit with discharge to home on 03/16/2023 now representing to the [facility] ED on 03/16/23 with mechanical fall earlier in the morning however only found by family later in the day with trauma of the right side of the head as well as the right shoulder and right hip with notable discomfort to the right upper and lower extremities reporting pain is primarily constant in the arm. #1. Adult FTT with mechanical fall with right hip and right shoulder discomfort with film reported rotator cuff potential tear of unclear chronicity, multifactorial, secondary to recent Acute CVA w/ R sided hemiplegia/dysarthria as well as recent BL Rhinoviral PNA in addition to BL LE cellulitis, will admit to [facility], will maintain on fall and aspiration precautions, plain film with no obvious acute findings but unclear exact chronicity of rotator cuff tendon injury thus if pain is ongoing will need to consider potentially further imaging, will have as needed oral low-dose narcotics, PT/OT/ST consulted for discharge planning as well as case management as patient clearly is unsafe for any consideration of home return. #2. Recent acute CVA with right-sided hemiplegia/dysarthria: We will continue patient on aspirin, apixaban, statin, hypertensive regimen as noted, will maintain on fall and aspiration precautions, will continue PT/OT/ST consultation for discharge planning although again patient is clearly in need of long-term skilled facility placement. #3. Recent bilateral viral rhino virus pneumonia: Encourage continued head of bed, I-S, previous acute presentation currently resolved. #4. Recent bilateral lower extremity cellulitis: Again some suspicion that this was potentially venous stasis however patient has completed antibiotic therapy, will place neck Jaden wraps with elevation. #5. Bilateral lower extremity lymphedema, venous stasis disease: We will place neck Jaden wraps with elevation. #6. PAF with chronic bradycardia: We will continue patient home Xarelto regimen, not any rate or rhythm agent. #7. Chronic neuropathy: We will continue patient home low-dose gabapentin regimen. #8. Hypertension: Continue home regimen including losartan, amlodipine, PRN hydralazine. #9. Hyperlipidemia: We will continue patient on statin therapy. #10. Former tobacco use: Encourage continued tobacco cessation. #11. ANDREE: BiPAP nightly. #12. CODE status: Patient does not have healthcare power of pre parole counseling aide or living will in place. Patient sons would be his decision-maker if this was necessary. Discussed CODE status at length including difference between FULL code, DNR-CCA and DNR-CC status. Following discussions about the differences in these status, requested Full Code status. Advanced Care Planning Face to Face Time: 16 minutes. Charges/Coding Visit Charges Inpatient E&M: 40967 Init Hosp L3 Procedures Hospitalists Procedures: 17645 Advncd Care Plan 30 Min
[2023-03-16] MEDS: 0.9% Normal Saline (1000mL) 1,000 ML 150 ML IV (19:11)
[2023-03-16 19:16] VITALS: BP 104/66; PULSE 71; RESP 16; O2SAT 96
--- NOTE | 2023-03-16 21:03 | ED.RN ---
called [facility] d/t report being sent 1hr 46min ago, they need more time because they are admitting another pt at this time.
[2023-03-16 22:17] VITALS: BMI 41.3
[2023-03-16 22:30] VITALS: BP 145/80; PULSE 62; RESP 20; TEMP 37.2; O2SAT 97
[2023-03-16] MEDS: oxyCODONE 5 MG Tablet PO (22:36)
[2023-03-16] MEDS: 0.9% Normal Saline (1000mL) 1,000 ML 100 ML IV (22:36)
[2023-03-16] MEDS: Acetaminophen 325 MG Tablet 650 MG PO (22:36)
[2023-03-16] MEDS: Atorvastatin Calcium 40 MG Tablet PO (22:37)
[2023-03-16] MEDS: Potassium Chloride Oral Tablet 20 MEQ PO (22:37)
[2023-03-16] MEDS: Menthol/Lanolin/Calamine/Znox 113 GM Tube 1 APPLIC TOPICAL (22:38)
[2023-03-17 03:59] VITALS: BP 90/68; PULSE 66; RESP 20; TEMP 36.8; O2SAT 97
[2023-03-17] MEDS: oxyCODONE 5 MG Tablet PO ×3 (04:06→22:28)
[2023-03-17] MEDS: Acetaminophen 325 MG Tablet 650 MG PO ×3 (04:06→22:29)
[2023-03-17] MEDS: Miconazole Nitrate 43 GM Bottle 1 APPLIC TOPICAL ×3 (04:07→21:42)
[2023-03-17 06:26] LABS: Absolute Lymphocyte Count 1.37 X10^3/uL (0.83-4.51); Absolute Neutrophil Count 4.6 X10^3/uL (2.0-7.7); Basophil# 0.03 X10^3/uL; Basophil% 0.4 % (0-1); Eosinophil# 0.45 X10^3/uL; Eosinophils% 6.4 % (0-5); Hematocrit 40.1 % (40-54); Hemoglobin 13.3 g/dL (13.0-16.5); Lymphocyte # 1.37 X10^3/ul (0.83-4.51); Lymphocyte % 19.5 % (19-41); Mean Corp Hgb Conc 33.2 g/dL (32-36); Mean Corpuscular Hgb 31.7 pg (27.0-32.0); Mean Corpuscular Volume 95.5 fL (80-94); Mean Platelet Vol. 9.2 fl (6.2-12.0); Monocyte# 0.56 X10^3/uL; NRBC Flagged by Analyzer 0 % (0-5); Neutrophil # 4.61 X10^3/uL (2.7-7.7); Neutrophil % 65.6 % (47-70); Platelet Count 215 K/mm3 (150-450); RBC Distribution Width CV 14.7 % (11.6-14.6); RBC Distribution Width SD 51.1 fl (35.1-43.9)
[2023-03-17 06:56] LABS: ALB/GLOB Ratio 0.8 RATIO (0.9-2.4); AST(SGOT) 16 U/L (15-37); Alanine Aminotransfer ALT/SGPT 19 U/L (16-61); Albumin, Serum 2.9 g/dL (3.2-5.0); Alkaline Phosphatase 76 U/L (45-117); Anion Gap 2 (5-15); BUN 13 mg/dL (7-18); BUN/Creat Ratio 14.3 RATIO (10-20); Calcium,Total 8.4 mg/dL (8.5-10.1); Chloride 112 mmol/L (98-107); Creatinine, Serum 0.91 mg/dL (0.70-1.30); EST Glomerular Filtration Rate 87 mL/min (>60); Est Glom Filt Rate - Afr Amer 105 mL/min (>60); Estimated Creatinine Clearance 65.24 ml/min; Globulin 3.5 g/dL (2.2-4.2); Glucose 93 mg/dL (74-106); Potassium 4.3 mmol/L (3.5-5.1); Protein, Total 6.4 g/dL (6.4-8.2); Sodium Level 140 mmol/L (136-145)
[2023-03-17] MEDS: Losartan Potassium 100 MG Tablet PO (09:07)
[2023-03-17] MEDS: amLODIPine 10 MG Tablet PO (09:07)
[2023-03-17] MEDS: Aspirin 81 MG TAB.CHEW PO (09:08)
[2023-03-17] MEDS: Gabapentin 100 MG Capsule PO ×3 (09:14→17:51)
[2023-03-17] MEDS: Ensure Plus High Protein 120 ML LIQUID PO (09:14)
[2023-03-17] MEDS: Menthol/Lanolin/Calamine/Znox 113 GM Tube 1 APPLIC TOPICAL ×3 (09:15→21:42)
[2023-03-17 10:00] VITALS: BP 114/69; PULSE 60; RESP 14; TEMP 37; O2SAT 95
--- NOTE | 2023-03-17 12:45 | CASEMGMT ---
JON MI Face to Face with patient for initial transition planning/care coordination assessment. JON MI introduced self and role at [facility]. Patient lying in bed, alert and oriented. Patient willing to participate in assessment and is able to answer all questions appropriately. Care providers, pharmacy, and demographics verified. Patient wishes to discharge home with resumption of HHC with [facility]. Patient states he has no further needs or concerns at this time. CM to follow for discharge planning needs that may arise. PCP: Mikey Specialists: none Preferred Pharmacy: [facility] Insurance: [facility] Prescription Benefit: yes Living Will/HPOA: yes, real Dewey and Naeem Roberson LNOK: real Living Arrangements: Patient lives with son in a 2 story home with bed and bath on first floor, 3 steps and railing to enter the home. Patient states he is independent at home but son is able to assist. Transportation: [facility]/C: Patient has shower chair, raised toilet, cane, hospital bed, grab bars, walker, wheelchair, electric scooter, and bill walker. Marcella was discharged from TCU on 03/15/23 with [facility] setup for start of care Monday 03/19. JON MI sent updated clinical information to [facility] via [employer]. Patient states that he was attempting to get into his electric scooter and the seat was not locked and he slide to the floor prompting return to [facility]. Patient was evaled by PT/OT with recommendations for C. Disposition Plan: Patient to discharge home with [facility], family support, and follow-up plans in place. Irene BAINS, RN, CM
[2023-03-17 15:00] VITALS: BP 103/63; PULSE 64; RESP 15; TEMP 36.7; O2SAT 95
--- NOTE | 2023-03-17 16:47 | PCM.PN.HOSP ---
Reason for Visit Reason for Visit: Diagnoses Adult failure to thrive (03/16/23) Subjective Subjective Patient was admitted yesterday afternoon for a fall at home after recently being discharged from the TCU. No acute events overnight. Patient seen at bedside this morning. Sitting comfortably in bed, conversing normally, no acute distress. Patient states that he is hoping to go home soon, does not want to be in the hospital. States that he had a minor fall yesterday at home when he misstepped and states the fall could have happened anyone. States his weakness improved with treatment in the TCU and while he would like more home therapy on discharge, he would like to go home as opposed to going to another rehab facility. He currently denies any acute pain or discomfort. Denies any fevers or chills, chest pain, shortness of breath. No other acute concerns today. Objective Data Objective Data Vital Signs: Vital Signs Temp Pulse Resp BP Pulse Ox O2 Del Method 98.1 F 64 15 103/63 95 Room Air 03/17/23 15:00 03/17/23 15:00 03/17/23 15:00 03/17/23 15:00 03/17/23 15:00 03/17/23 15:00 Oxygen Delivery Method Room Air Weight: 116.12 kg Body Mass Index (BMI) 41.3 Intake & Output: Intake and Output for Last 24 Hours 03/15/23 03/16/23 03/17/23 23:59 23:59 23:59 Intake Total 1420 / 1420 Output Total 50 / 50 300 / 300 Balance -50 / -50 1120 / 1120 Lab / Micro Data 03/17/23 06:14 03/17/23 06:14 Labs: Laboratory Results - last 24 hr 03/16/23 17:49: WBC 12.1 H, RBC 4.73, Hgb 14.6, Hct 43.5, MCV 92.0, MCH 30.9, MCHC 33.6, RDW Std Deviation 48.0 H, RDW Coeff of Naz 14.3, Plt Count 225, MPV 9.3, Immature Gran % (Auto) 0.500, Neut % (Auto) 81.0 H, Lymph % (Auto) 7.8 L, [place] % (Auto) 6.9, Eos % (Auto) 3.5, Baso % (Auto) 0.3, Absolute Neuts (auto) 9.8 H, Absolute Lymphs (auto) 0.95, Nucleated RBC % 0, Sodium 140, Potassium 3.8, Chloride 110 H, Carbon Dioxide 25.0, Anion Gap 5, BUN 14, Creatinine 0.86, Estim Creat Clear Calc 69.03, Est GFR (MDRD) Af Amer 113, Est GFR (MDRD) Non-Af 93, BUN/Creatinine Ratio 16.4, Glucose 143 H, Calcium 8.9, Magnesium 2.0, Total Creatine Kinase 95 03/17/23 06:14: WBC 7.0, RBC 4.20 L, Hgb 13.3, Hct 40.1, MCV 95.5 H, MCH 31.7, MCHC 33.2, RDW Std Deviation 51.1 H, RDW Coeff of Naz 14.7 H, Plt Count 215, MPV 9.2, Immature Gran % (Auto) 0.100, Neut % (Auto) 65.6, Lymph % (Auto) 19.5, [place] % (Auto) 8.0, Eos % (Auto) 6.4 H, Baso % (Auto) 0.4, Absolute Neuts (auto) 4.6, Absolute Lymphs (auto) 1.37, Nucleated RBC % 0, Sodium 140, Potassium 4.3, Chloride 112 H, Carbon Dioxide 26.0, Anion Gap 2 L, BUN 13, Creatinine 0.91, Estim Creat Clear Calc 65.24, Est GFR (MDRD) Af Amer 105, Est GFR (MDRD) Non-Af 87, BUN/Creatinine Ratio 14.3, Glucose 93, Calcium 8.4 L, Total Bilirubin 1.00, AST 16, ALT 19, Alkaline Phosphatase 76, Total Protein 6.4, Albumin 2.9 L, Globulin 3.5, Albumin/Globulin Ratio 0.8 L Radiography Diagnostic Testing: Radiology Impression Brain CT 03/16/23 17:28 IMPRESSION: Mild atrophy and periventricular white matter ischemic changes. Old deep white matter infarct on the left No evidence for acute intracranial hemorrhage Electronically Signed: Villa Rodrigues MD at 18:37 EST Reading Location ID and State: [facility] / [place] Tel , Service support , Hip/Pelvis X-Ray 03/16/23 18:15 IMPRESSION: Normal x-ray examination of the pelvis and hip. Electronically Signed: Villa Rodrigues MD at 19:01 EST , Shoulder X-Ray 03/16/23 18:15 IMPRESSION: Degenerative changes and findings consistent with rotator cuff tendon tear. No acute fracture. Electronically Signed: Villa Rodrigues MD at 19:00 EST , Physical Exam Const alert, oriented x3 and no apparent distress Constitutional Narrative: Elderly male, morbidly obese, sitting comfortably in bed, conversing normally, no acute distress. General Appearance: cooperative and comfortable HEENT normocephalic, head/scalp atraumatic, hearing grossly normal bilaterally, nasal mucous membranes and turbinates normal and moist oral mucous membranes Eyes PERRL, EOMs intact bilaterally and conjunctivae normal Neck full ROM, no lymphadenopathy and supple Lymph Lymphatic: no lymphadenopathy noted Chest inspection of chest normal Resp normal respiratory effort and no use of accessory muscles Resp Narrative: Mildly diminished breath sounds bilaterally. Satting well on room air, no increased work of breathing noted. Cardio regular rate, regular rhythm, no murmurs and peripheral pulses 2+ throughout GI normal to inspection, nondistended, normoactive bowel sounds, soft to palpation, non-tender and non-distended Back/Spine normal ROM Extremity no pedal edema Extremity Narrative: Venous stasis skin changes along with multiple abrasions and ecchymoses in various stages of healing noted on bilateral lower extremities. Skin no rashes or lesions noted Neuro moves all extremities Neuro Narrative: Mild right-sided arm weakness noted, did not assess patient's leg movement. Psych mental status grossly normal Assessment & Plan Assessment/Plan (1) Adult failure to thrive: PLAN: Plan Patient is a 72-year-old male who presented to [facility] ED on 03/16/2023, after being discharged from the TCU on 03/15, with a mechanical fall at home. 1. Adult failure to thrive, mechanical fall at home with right hip and right shoulder pain, history of known right rotator cuff tear Multiple recent admissions for various things as noted below. Most recent admission was from 02/22 to 02/26, was discharged to the TCU at that time. Apparently patient was hoping for further therapy prior to discharge from the TCU, however he was unable to transition to a skilled facility due to financial cost. Unfortunately had a mechanical fall at home and hit his right hip and shoulder with a fall per the patient, was found by family and brought to the ED. CT head and hip x-ray negative on admit. Right shoulder x-ray showed known rotator cuff tear, nonacute. Labs benign. ? PT/OT/case management following. Patient did well with therapy on 03/17, recommendation from therapy is for home with home health care. Patient remained stable tomorrow, will plan for discharge home. 2. Paroxysmal atrial fibrillation with chronic bradycardia ? Mild bradycardia with heart rate in the 50s on admission noted. Chronic, no concern for this being the etiology of his fall as noted above. Continue home Xarelto. Not on any home controlling agents. Monitor telemetry. 3. Recent acute CVA with right-sided hemiplegia and dysarthria ? Hospitalized from 01/28 to 01/31 for CVA and paroxysmal atrial fibrillation as noted above. Currently stable. Continue home aspirin and statin. PT and OT following as above. 4. Recent bilateral pneumonia secondary to rhinovirus infection ? Hospitalized from 02/22 to 02/26 for pneumonia and cellulitis as noted below. Symptoms have resolved. 5. Recent lower extremity cellulitis with underlying chronic lower extremity lymphedema with venous stasis changes ? Completed full course of antibiotics for treatment. Lymphedema and venous stasis changes noted on exam, no concern for cellulitis at this time. Chronic medical conditions: ? Chronic neuropathy: Continue home gabapentin. ? Hypertension: Continue home amlodipine and losartan. ? Hyperlipidemia: Continue home statin. ? ANDREE: Continue home CPAP. DVT prophylaxis: Xarelto CODE STATUS: Full code, verified Expected disposition: Home with home health care, 1 to 2 days Total clinical time spent by myself addressing the patient's medical issues, reviewing all the data, and collaborating with patient's care team: 35 minutes. Charges/Coding Visit Charges Inpatient E&M: 40444 Subs Hosp L2
--- NOTE | 2023-03-17 17:21 | CASEMGMT ---
JON MI in to complete HOLLIS form with patient. JON MI explained HOLLIS form to patient, patient voiced understanding. Patient signed HOLLIS Form and filed in chart. Patient provided copy of signed HOLLIS form. Patient had no further questions or concerns at this time.
[2023-03-17] MEDS: Rivaroxaban 20 MG Tablet PO (17:51)
[2023-03-17 21:38] VITALS: BP 109/60; PULSE 65; RESP 20; TEMP 36.6; O2SAT 98
[2023-03-17] MEDS: Atorvastatin Calcium 40 MG Tablet PO (21:42)
[2023-03-18 05:00] VITALS: BP 120/69; PULSE 64; RESP 18; TEMP 37; O2SAT 97
[2023-03-18] MEDS: Miconazole Nitrate 43 GM Bottle 1 APPLIC TOPICAL (05:04)
[2023-03-18 05:13] VITALS: BMI 41.1
[2023-03-18 07:14] LABS: Hematocrit 40.3 % (40-54); Hemoglobin 13.2 g/dL (13.0-16.5); Mean Corp Hgb Conc 32.8 g/dL (32-36); Mean Corpuscular Hgb 31.4 pg (27.0-32.0); Mean Platelet Vol. 9.9 fl (6.2-12.0); Platelet Count 203 K/mm3 (150-450); RBC Distribution Width CV 14.7 % (11.6-14.6); RBC Distribution Width SD 51.6 fl (35.1-43.9); White Blood Count 6.6 K/mm3 (4.4-11.0)
[2023-03-18 07:48] LABS: Anion Gap 6 (5-15); BUN 18 mg/dL (7-18); Calcium,Total 8.2 mg/dL (8.5-10.1); Chloride 110 mmol/L (98-107); EST Glomerular Filtration Rate 78 mL/min (>60); Est Glom Filt Rate - Afr Amer 94 mL/min (>60); Estimated Creatinine Clearance 59.37 ml/min; Glucose 114 mg/dL (74-106); Potassium 3.7 mmol/L (3.5-5.1); Sodium Level 140 mmol/L (136-145)
[2023-03-18] MEDS: Menthol/Lanolin/Calamine/Znox 113 GM Tube 1 APPLIC TOPICAL (09:12)
[2023-03-18] MEDS: Gabapentin 100 MG Capsule PO ×2 (09:12→11:05)
[2023-03-18] MEDS: amLODIPine 10 MG Tablet PO (09:12)
[2023-03-18] MEDS: Losartan Potassium 100 MG Tablet PO (09:12)
[2023-03-18] MEDS: Aspirin 81 MG TAB.CHEW PO (09:12)
[2023-03-18 10:00] VITALS: BP 130/72; PULSE 110; RESP 14; TEMP 37.1; O2SAT 97
--- NOTE | 2023-03-18 11:38 | PCM.DC ---
Discharge Instructions Diet Discharge Diet: No restrictions Activity Discharge Activity: No Restrictions Weight Bearing Status: Weight bearing as tolerated Follow Up Care Please Follow Up With: Shanda Jensen NP, FOUNDER CEO & PRESIDENT-C When: As needed Test Results: Test results from this visit will be discussed in further detail at your follow-up appointment, if applicable. Pending Tests Upon Discharge: None Discharge Plan Admission Admit Date/Time: 03/16/23 19:14 Primary Reason for Your Visit: Mechanical fall, failure to thrive Attending Provider: Larry Howard Primary Care Provider: Shanda Jensen NP Consulting Providers: Lizeth Wilson Instructions Additional Instructions / Restrictions: I have continued a short course of oxycodone as needed for your pain. Otherwise, continue all other home medications as previously prescribed. Follow-up with your primary care doctor as needed. Discharge Orders/Prescriptions Prescriptions: New oxycodone 5 mg Tablet 5 mg PO Q6H PRN PRN (Reason: Pain Score 6-10) 3 Days Qty: 12 0RF Continued Xarelto 20 mg Tablet 20 mg PO DINNER Qty: 0 0RF aspirin 81 mg Tablet,Chewable 81 mg PO BREAKFAST Qty: 0 0RF acetaminophen 500 mg Tablet 1,000 mg PO Q8 Qty: 0 0RF atorvastatin 40 mg Tablet 40 mg PO QHS 30 Days Qty: 30 0RF amlodipine 10 mg Tablet 10 mg PO DAILY 30 Days Qty: 30 0RF losartan 100 mg Tablet 100 mg PO DAILY 30 Days Qty: 30 0RF gabapentin 100 mg Capsule 100 mg PO TIDCM 30 Days Qty: 90 0RF Discontinued oxycodone 5 mg Tablet 5 mg PO Q4H PRN PRN (Reason: Pain Score 6-10) 3 Days Qty: 18 0RF potassium chloride 20 mEq tablet extended release 20 meq PO BID Rx Instructions: take with food Referrals / Follow Up: Shanda Jensen NP, FOUNDER CEO & PRESIDENT-C [Primary Care Provider] - Disposition Disposition (needs filled in before D/C Order can be placed): Home Health Service
[2023-03-18 11:43] VITALS: BP 105/57; PULSE 84; RESP 16; TEMP 37.1; O2SAT 99
--- NOTE | 2023-03-18 11:44 | PCM.DC.SUM ---
Providers Date of Admission: 03/16/23 Date of Discharge: 03/18/23 Primary Care Physician: JAVIER Celis Reason For Visit: FALL, ADULT FTT Diagnosis Discharge Diagnosis (1) Adult failure to thrive: Status: Acute Code(s): R62.7 - Adult failure to thrive Medications at Discharge Home Medications rivaroxaban 20 mg tablet (Xarelto) 20 mg PO DINNER BLOOD THINNER #0 tabs 12/28/21 aspirin 81 mg chewable tablet 81 mg PO BREAKFAST blood thinner #0 tabs 01/31/23 acetaminophen 500 mg tablet 1,000 mg (2 x 500 mg) PO Q8 pain/fever #0 tabs 02/15/23 amlodipine 10 mg tablet 10 mg PO DAILY blood pressure 30 days #30 tabs 03/15/23 atorvastatin 40 mg tablet 40 mg PO QHS cholesterol 30 days #30 tabs 03/15/23 losartan 100 mg tablet 100 mg PO DAILY blood pressure 30 days #30 tabs 03/15/23 gabapentin 100 mg capsule 100 mg PO TIDCM nerve pain 30 days #90 caps 03/16/23 oxycodone 5 mg tablet 5 mg PO Q6H PRN PRN Pain Score 6-10 3 days #12 tabs 03/18/23 Hospital Course Operations None Procedures - (CT brain without contrast, hip/pelvis x-ray, left shoulder x-ray) Summary of Care Provided Minutes Spent on Discharge: 35 Hospital Course: Patient is a 72-year-old male who presented to [facility] ED on 03/16/2023, after being discharged from the TCU on 03/15, with a mechanical fall at home. Short hospital course as noted below. Adult failure to thrive, mechanical fall at home with right hip and right shoulder pain, history of known right rotator cuff tear: Multiple recent admissions for various things as noted below. Most recent admission was from 02/22 to 02/26, was discharged to the TCU at that time. Apparently patient was hoping for further therapy prior to discharge from the TCU, however he was unable to transition to a skilled facility due to financial cost. Unfortunately had a mechanical fall at home and hit his right hip and shoulder with a fall per the patient, was found by family and brought to the ED. CT head and hip x-ray negative on admit. Right shoulder x-ray showed known rotator cuff tear, nonacute. Labs benign. ?PT/OT/case management followed. Patient did well with therapy on 03/17, recommendation from therapy was for home with home health care. Patient discharged home in stable condition. Paroxysmal atrial fibrillation with chronic bradycardia: Mild bradycardia with heart rate in the 50s on admission noted. Chronic, no concern for this being the etiology of his fall as noted above. Stable during admission on telemetry. ? Continue home Xarelto. Not on any home controlling agents. 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 Stable during admission. ? Continued home aspirin and statin. Recent bilateral pneumonia secondary to rhinovirus infection: Hospitalized from 02/22 to 02/26 for pneumonia and cellulitis as noted below. Symptoms have resolved. Recent lower extremity cellulitis with underlying chronic lower extremity lymphedema with venous stasis changes: Completed full course of antibiotics for treatment. Lymphedema and venous stasis changes noted on exam, no concern for cellulitis at this time. Discharge diagnoses: ? Adult failure to thrive ? Mechanical fall at home with right hip and right shoulder pain, improving ? History of right rotator cuff tear ? Paroxysmal atrial fibrillation with chronic bradycardia ? Recent acute CVA with right-sided hemiplegia dysarthria ? Recent bilateral pneumonia secondary to rhinovirus infection ? Recent lower extremity cellulitis with underlying chronic lower extremity lymphedema with venous stasis changes ? Chronic neuropathy ? Hypertension ? Hyperlipidemia ? ANDREE Total clinical time spent by myself addressing the patient's discharge needs: 35 minutes. Physical Exam Const alert, oriented x3 and no apparent distress Constitutional Narrative: Elderly male, morbidly obese, sitting comfortably in bed, conversing normally, no acute distress. General Appearance: cooperative and comfortable HEENT normocephalic, head/scalp atraumatic, hearing grossly normal bilaterally, nasal mucous membranes and turbinates normal and moist oral mucous membranes Eyes PERRL, EOMs intact bilaterally and conjunctivae normal Neck full ROM, no lymphadenopathy and supple Lymph Lymphatic: no lymphadenopathy noted Chest inspection of chest normal Resp normal respiratory effort and no use of accessory muscles Resp Narrative: Mildly diminished breath sounds bilaterally. Satting well on room air, no increased work of breathing noted. Cardio regular rate, regular rhythm, no murmurs and peripheral pulses 2+ throughout GI normal to inspection, nondistended, normoactive bowel sounds, soft to palpation, non-tender and non-distended Back/Spine normal ROM Extremity no pedal edema Extremity Narrative: Venous stasis skin changes along with multiple abrasions and ecchymoses in various stages of healing noted on bilateral lower extremities. Skin no rashes or lesions noted Neuro moves all extremities Neuro Narrative: Mild right-sided arm weakness noted, did not assess patient's leg movement. Psych mental status grossly normal Weight / BMI Weight Weight: 116 kg Body Mass Index (BMI) 41.1 ABG / Lab / Microbiology Data 03/18/23 06:12 03/18/23 06:12 Laboratory: Laboratory Results - last 24 hr 03/18/23 06:12: WBC 6.6, RBC 4.20 L, Hgb 13.2, Hct 40.3, MCV 96.0 H, MCH 31.4, MCHC 32.8, RDW Std Deviation 51.6 H, RDW Coeff of Naz 14.7 H, Plt Count 203, MPV 9.9, Sodium 140, Potassium 3.7, Chloride 110 H, Carbon Dioxide 24.0, Anion Gap 6, BUN 18, Creatinine 1.00, Estim Creat Clear Calc 59.37, Est GFR (MDRD) Af Amer 94, Est GFR (MDRD) Non-Af 78, BUN/Creatinine Ratio 18.0, Glucose 114 H, Calcium 8.2 L D/C Instructions Discharge Diet: No restrictions Weight Bearing Status: Weight bearing as tolerated Pending Tests Upon Discharge: None Please Follow Up With: Shanda Jensen SHOE REPAIRER APPRENTICE, SHOE REPAIRER APPRENTICE-C When: As needed Meaningful Use Info Meaningful Use Diagnoses (Choose all that apply): None applicable Discharge Plan Admission Admit Date/Time: 03/16/23 19:14 Primary Reason for Your Visit: Mechanical fall, failure to thrive Attending Provider: Larry Howard Primary Care Provider: Shanda Jensen NP Consulting Providers: Lizeth Wilson Instructions Additional Instructions / Restrictions: I have continued a short course of oxycodone as needed for your pain. Otherwise, continue all other home medications as previously prescribed. Follow-up with your primary care doctor as needed. Discharge Orders/Prescriptions Prescriptions: New oxycodone 5 mg Tablet 5 mg PO Q6H PRN PRN (Reason: Pain Score 6-10) 3 Days Qty: 12 0RF Continued Xarelto 20 mg Tablet 20 mg PO DINNER Qty: 0 0RF aspirin 81 mg Tablet,Chewable 81 mg PO BREAKFAST Qty: 0 0RF acetaminophen 500 mg Tablet 1,000 mg PO Q8 Qty: 0 0RF atorvastatin 40 mg Tablet 40 mg PO QHS 30 Days Qty: 30 0RF amlodipine 10 mg Tablet 10 mg PO DAILY 30 Days Qty: 30 0RF losartan 100 mg Tablet 100 mg PO DAILY 30 Days Qty: 30 0RF gabapentin 100 mg Capsule 100 mg PO TIDCM 30 Days Qty: 90 0RF Discontinued oxycodone 5 mg Tablet 5 mg PO Q4H PRN PRN (Reason: Pain Score 6-10) 3 Days Qty: 18 0RF potassium chloride 20 mEq tablet extended release 20 meq PO BID Rx Instructions: take with food Referrals / Follow Up: Shanda Jensen NP, SHOE REPAIRER APPRENTICE-C [Primary Care Provider] - Disposition Disposition (needs filled in before D/C Order can be placed): Home Health Service Charges/Coding Visit Charges Inpatient E&M: 93512 Disch Hosp >30min
== END 2023-03-18 14:28 | disposition home health service (06) ==
LOC: ED 19:08 → MS3 20:41
PROVIDERS: Admitting Provider Family Medicine; Emergency Provider Emergency Medicine; PCP Nurse Practitioner Family; Visit Provider Hospitalist
DX: R62.7 Adult failure to thrive (principal); I69.351 Hemiplegia and hemiparesis following cerebral infarction affecting right dominant side; I48.0 Paroxysmal atrial fibrillation; E66.01 Morbid (severe) obesity due to excess calories; Z68.41 Body mass index [BMI] 40.0-44.9, adult; I89.0 Lymphedema, not elsewhere classified; W19.XXXA Unspecified fall, initial encounter; R53.81 Other malaise; I25.10 Atherosclerotic heart disease of native coronary artery without angina pectoris; S09.90XA Unspecified injury of head, initial encounter; M25.551 Pain in right hip; G62.9 Polyneuropathy, unspecified; E78.5 Hyperlipidemia, unspecified; G47.33 Obstructive sleep apnea (adult) (pediatric); I69.322 Dysarthria following cerebral infarction; Z79.01 Long term (current) use of anticoagulants; Z87.891 Personal history of nicotine dependence; I10 Essential (primary) hypertension; Z79.82 Long term (current) use of aspirin; Z79.899 Other long term (current) drug therapy; M25.511 Pain in right shoulder; Z87.01 Personal history of pneumonia (recurrent); Y92.009 Unspecified place in unspecified non-institutional (private) residence as the place of occurrence of the external cause
CPT/HCPCS: 36415; 70450; 73030; 73502; 80048; 80053; 82550; 83735; 85025; 85027; 92507; 92523; 92526; 92610; 93005; 94668; 96361; 96374; 96375; 97162; 97166; 97802; 99221; 99285; J7030; A4216; G0378; J2405

== ENCOUNTER 2023-03-23 19:19 | Inpatient (IN) | payer MEDICARE, SELFPAY ==
[2023-03-23] VITALS (10 sets, daily range): BP systolic 98–143; BP diastolic 60–97; PULSE 70–98; RESP 12–19; TEMP 36.2–37.3; O2SAT 92–97; BMI 42.2; BMI 41.5
--- NOTE | 2023-03-23 20:04 | CT_ITS ---
STUDY: CT BRAIN WITHOUT CONTRAST REASON FOR EXAM: Male, 72 years old. dysarthria RADIATION DOSAGE (If Supplied By Facility): CTDIvol = ( 44.99 ) mGy, DLP = ( 796.11 ) mGycm TECHNIQUE: Transaxial CT imaging of the brain was performed without administration of intravenous contrast material. Individualized dose optimization techniques were used for this CT. COMPARISON: 03/16/2023, and MRI 01/29/2023 FINDINGS: No acute abnormalities or significant changes. Normal soft tissue structures. Normal calvarium. Stable recent left em radiata infarct. Normal size ventricles and extra-axial spaces for the patient''s age. There are areas of decreased attenuation within the white matter tracts of the supratentorial brain, consistent with microvascular disease changes. Normal basal ganglia and thalami. Normal brainstem. Normal cerebellum. There is no intracranial hemorrhage. There are no findings of an acute ischemic infarction. Chronic mucosal thickening in the left maxillary sinus, question of previous left medial antrectomy, otherwise negative visualized paranasal sinuses. CT/Brain/Head without Contrast IMPRESSION: No acute abnormality since previous studies. White matter disease. Recent left em radiata infarct. Electronically Signed: Geoffrey Loco MD at 21:36 EST ,
--- NOTE | 2023-03-23 20:57 | EX.ED.DYSGE1 ---
HPI History of Present Illness Chief Complaint: Weakness Informant: patient and family Narrative Narrative: 72-year-old male presenting to the emergency room with altered mental status. Patient is currently living at home and was noted to have had to gently donuts this morning. He was watching football today and fell asleep in his motorized wheelchair. His son who he been he lives with came down to check on him and woke him up and around 1700 was noted to have some dysarthria altered mental status and not the way he was this morning. Patient has had multiple recent admissions including stroke, pneumonia/rhinovirus, fall with failure to thrive, and cellulitis. Patient has had stays in the TCU. Family notes that he does take pain medication at home and that his pupils seem to pinpoint but pill count seemed accurate. He does administer his medications himself and family believes however though that he missed his Xarelto yesterday. Son notes over the past several days that he has developed incontinence of stool and urine. Son notes that his legs while edematous actually appears significantly better than they have recently. [facility] Medical History (Updated 03/23/23 @ 23:[address] Ann Cage MD) Anomalous origin of coronary artery Anticoagulant long-term use Arthritis Atherosclerotic heart disease of [place] coronary artery without angina pectoris Atrial fibrillation Atrial fibrillation Benign neoplasm of middle ear, nasal cavity and accessory sinuses BPH (benign prostatic hyperplasia) Cardiac murmur, unspecified Cellulitis Cellulitis of right lower limb Cervical disc disease Chronic venous stasis dermatitis of both lower extremities CPAP (continuous positive airway pressure) dependence CVA (cerebral vascular accident) Debility Deep venous thrombosis Dyspnea on minimal exertion Essential (primary) hypertension Former smoker FTT (failure to thrive) in adult GERD (gastroesophageal reflux disease) Hemiplegia affecting right dominant side Hyperglycemia Hyperlipidemia Hypertension Leg pain Low back pain Lymphedema Lymphedema of both lower extremities New onset atrial fibrillation (03/24/20) 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 Obesity ANDREE (obstructive sleep apnea) Pain in right lower leg Pain of left great toe Pain of left lower extremity due to injury Pneumonia Rotator cuff tear arthropathy of right shoulder Skin ulcer of left great toe with fat layer exposed Sleep apnea Toe ulcer Traumatic hematoma of left lower leg Venous insufficiency Home Medications rivaroxaban 20 mg tablet (Xarelto) 20 mg PO DINNER BLOOD THINNER #0 tabs 12/28/21 [Rx Last Taken 02/25/23] aspirin 81 mg chewable tablet 81 mg PO BREAKFAST blood thinner #0 tabs 01/31/23 [Rx Last Taken 03/23/23] acetaminophen 500 mg tablet 1,000 mg (2 x 500 mg) PO Q8 pain/fever #0 tabs 02/15/23 [Rx Last Taken 03/23/23] amlodipine 10 mg tablet 10 mg PO DAILY blood pressure 30 days #30 tabs 03/15/23 [Rx Last Taken 03/23/23] atorvastatin 40 mg tablet 40 mg PO QHS cholesterol 30 days #30 tabs 03/15/23 [Rx Last Taken 03/22/23] losartan 100 mg tablet 100 mg PO DAILY blood pressure 30 days #30 tabs 03/15/23 [Rx Last Taken 03/23/23] gabapentin 100 mg capsule 100 mg PO TIDCM nerve pain 30 days #90 caps 03/16/23 [Rx Last Taken 03/23/23] oxycodone 5 mg tablet 5 mg PO Q6H PRN PRN Pain Score 6-10 3 days #12 tabs 03/18/23 [Rx Last Taken 03/23/23] Allergy/AdvReac Type Severity Reaction Status Date / Time ibuprofen [From Motrin] AdvReac Nausea Verified 03/23/23 19:20 Family History Mother CAD (coronary artery disease) Hypertension History of cardiac radiofrequency ablation Sister Hypertension Other Arthritis Surgical History H/O cervical spine surgery History of bursectomy History of carpal tunnel release History of carpal tunnel surgery History of coronary artery stent placement (11/29/10) History of coronary artery stent placement History of fusion of cervical spine History of herniorrhaphy History of removal of cyst History of transurethral resection of prostate Social History household members: other details: Older son Naeem. Smoking Status: Former smoker alcohol intake: never substance use type: does not use ROS ROS ED Constitutional Constitutional ED: Reports fever(s) and other Details: Reported fever 2 days ago that resolved without treatment ; Denies chills or weight loss Eyes Eyes: Denies change in vision or diplopia ENT ENT ED: Denies ear pain, rhinorrhea or sore throat Cardiovascular Cardiovascular: Denies chest pain, orthopnea, palpitations or racing heartbeat Respiratory/Chest Respiratory/Chest: Denies cough, dyspnea or orthopnea Gastrointestinal Gastrointestinal: Reports other Details: Urinary and fecal incontinence ; Denies abdominal pain, diarrhea, nausea or vomiting Genitourinary Genitourinary ED: Denies dysuria, hematuria or urinary frequency Musculoskeletal Musculoskeletal: Denies arthralgias or myalgias Integumentary Reports other Details: Chronic wounds of the lower extremity ; Denies abscess or rash Neurologic Neurologic: Reports other Details: Dysarthria. ; Denies headache(s) or weakness Psychiatric Psychiatric: Denies anxiety, depression, suicidal ideation or suicidal thoughts Endocrine Endocrinology: Denies polydipsia, polyphagia or polyuria Allergic/Immunologic Allergic/Immunologic ED: Denies mouth swelling, tongue swelling or urticaria EXAM Physical Exam Const Vital Signs: 03/23/23 19:21 03/23/23 19:33 03/23/23 19:33 Temperature 97.1 F L 99 F Temperature Source Temporal Oral Pulse Rate 95 Respiratory Rate 12 Respiratory Effort Normal Non-Labored Respiratory Pattern Normal Blood Pressure 109/65 98/66 Blood Pressure Mean 79 76 Pulse Ox 93 Oxygen Delivery Method Room Air 03/23/23 19:26 03/23/23 20:26 03/23/23 21:26 Temperature 99 F 99.1 F 98.9 F Temperature Source Oral Temporal Oral Pulse Rate 70 83 81 Respiratory Rate 16 19 H 18 Respiratory Effort Respiratory Pattern Blood Pressure 98/66 103/60 100/66 Blood Pressure Mean 76 74 77 Pulse Ox 92 94 97 Oxygen Delivery Method Room Air Room Air Room Air 03/23/23 22:26 03/23/23 21:20 Temperature 99.2 F H Temperature Source Temporal Pulse Rate 85 Respiratory Rate 18 18 Respiratory Effort Respiratory Pattern Blood Pressure 130/90 H Blood Pressure Mean 103 Pulse Ox 95 Oxygen Delivery Method Room Air Positive well nourished, well developed and obese General Appearance ED: well developed Nutritional Appearance: obese HEENT Reports normocephalic, head/scalp atraumatic and moist mucous membranes Eyes PERRL and EOMs intact bilaterally Eyes Narrative: Pupils are 2 mm bilaterally Neck no lymphadenopathy, supple and no JVD Resp normal respiratory effort and clear to auscultation bilaterally Cardio Cardio Narrative: 3 out of 6 systolic murmur Rhythm: abnormal rhythm irregularly irregular GI normal to inspection, nondistended, normoactive bowel sounds and non-tender Palpation: soft Back/Spine no CVA tenderness and normal ROM Extremity General Extremety ED: Yes edema General Extremity: edema bilateral (3+) Neuro oriented x3 Neuro Narrative: Patient has slurred speech but is understandable. He is globally weak but moves all 4 extremities Sensorium / Orientation: alert Skin Skin Narrative: Chronic venous stasis changes of the lower extremity Sepsis Attestation Sepsis Alert: Yes Sepsis Attestation: Agree w/Sepsis Date exam was performed: 03/23/23 Time exam was performed: 21:30 Possible Source of Sepsis: Genitourinary Sepsis Organ Dysfunction Criteria Present: INR > 1.5 or aPTT > 60 sec, Lactic Acid > 2 mmol/L and New/Unexplained change in mental status Fluid Resuscitation Fluid resuscitation indicated?: Yes Fluid Resuscitation ordered: Lesser volume fluid bolus ordered Amount of fluid ordered: 10,000 Reason for lesser fluid bolus:: Concern for fluid overload and Heart failure MDM MDM MDM Narrative Medical decision making narrative: My independent interpretation of the chest x-ray is no acute process. CT the brain demonstrates no acute hemorrhage. White count 7.2 hemoglobin 13. Platelet count 163. Patient's INR is 1.6. Creatinine 1.31 with a BUN of 18. Anion gap of 3 CO2 of 17. Potassium low at 3.0. Lactic acid is elevated at 2.2. Normal troponin slight elevation in beta natruretic peptide. Urinalysis is grossly infected and will be sent for culture. Blood cultures were obtained. He received IV fluids and Rocephin. I think most likely his altered mental status is related to his sepsis and urinary tract infection rather than a another acute infarct. Patient will be admitted to the hospital. I have elected to be judicious with his IV fluids despite an elevated lactic acid as he is not hypotensive tachycardic and he has significant lymphedema of the lower extremities. History & Record Review Discussion w/independent historian: Patient and Family Additional record(s) reviewed:: Prior inpatient record, Prior outpatient record, Prior ED visit and Prior labs Lab Data Attestation: I reviewed the patient's lab results. Labs: Laboratory Results - last 24 hr 03/23/23 03/23/23 20:46 21:28 WBC 17.2 H RBC 4.15 L Hgb 13.0 Hct 38.7 L MCV 93.3 MCH 31.3 MCHC 33.6 RDW Std Deviation 49.0 H RDW Coeff of Naz 14.4 Plt Count 163 MPV 9.7 Immature Gran % (Auto) 1.300 H Neut % (Auto) 88.1 H Lymph % (Auto) 2.9 L [place] % (Auto) 7.5 Eos % (Auto) 0.0 Baso % (Auto) 0.2 Absolute Neuts (auto) 15.1 H Absolute Lymphs (auto) 0.50 L Nucleated RBC % 0 Differential Comment SEE COMMENT Toxic Granulation RARE Platelet Estimate ADEQUATE RBC Morphology N CHROM Anisocytosis RARE Macrocytosis RARE PT 18.8 H INR 1.6 APTT 46.1 H Sodium 136 Potassium 3.0 L Chloride 106 Carbon Dioxide 27.0 Anion Gap 3 L BUN 18 Creatinine 1.31 H Estim Creat Clear Calc 45.32 Est GFR (MDRD) Af Amer 69 Est GFR (MDRD) Non-Af 57 L BUN/Creatinine Ratio 13.7 Glucose 157 H Lactic Acid 2.2 H* Calcium 8.1 L Total Bilirubin 1.60 H Direct Bilirubin 0.64 H AST 18 ALT 19 Alkaline Phosphatase 83 Troponin I High Sens 16 B-Natriuretic Peptide 187.6 H Total Protein 6.7 Albumin 2.8 L Globulin 3.9 Urine Color Yellow Urine Clarity Sl. Cloudy Urine pH 5.0 Ur Specific [place] 1.025 Urine Protein 30 H Urine Glucose (UA) Normal Urine Ketones 5 H Urine Occult Blood 150 H Urine Nitrite Positive H Urine Bilirubin 1 H Urine Urobilinogen 1 H Ur Leukocyte Esterase 500 H Urine RBC 10-25 SEEN Urine WBC 50-100 SEEN Ur Squamous Epith Cells 0-5 SEEN Amorphous Sediment 1+ URATE Urine Bacteria 3+ Urine Mucus 0 SEEN Radiography Diagnostic Testing: Clinical Impression(s) from Imaging Studies Brain CT 03/23/23 20:04 IMPRESSION: No acute abnormality since previous studies. White matter disease. Recent left em radiata infarct. Electronically Signed: Geoffrey Loco MD at 21:36 EST , Chest X-Ray 03/23/23 21:06 IMPRESSION: Normal x-ray examination of the chest. Electronically Signed: Geoffrey Loco MD at 21:27 EST , EKG Initial EKG: Attestation: I personally reviewed and interpreted this EKG as follows: Comments: Atrial fibrillation with a left bundle branch block. Ventricular rate of 72 bpm Management Discussion w/another healthcare provider: Hospitalist Discharge Plan Dx/Rx/DC Orders Clinical Impression: Urinary tract infection, Hemiplegia of right dominant side as late effect of cerebral infarction, Dysarthria, Encephalopathy acute, Obesity, Acute hypokalemia Disposition Disposition: Acute Care Hospital [facility] Discharge Date/Time: 03/23/23 23:05
[2023-03-23 21:05] LABS: Absolute Neutrophil Count 15.1 X10^3/uL (2.0-7.7); Basophil# 0.03 X10^3/uL; Basophil% 0.2 % (0-1); Hematocrit 38.7 % (40-54); Lymphocyte % 2.9 % (19-41); Mean Corp Hgb Conc 33.6 g/dL (32-36); Mean Corpuscular Hgb 31.3 pg (27.0-32.0); Mean Corpuscular Volume 93.3 fL (80-94); Mean Platelet Vol. 9.7 fl (6.2-12.0); Monocyte# 1.29 X10^3/uL; Monocyte% 7.5 % (0-10); NRBC Flagged by Analyzer 0 % (0-5); Neutrophil % 88.1 % (47-70); POSITIVE DIFFERENTIAL YES; Platelet Count 163 K/mm3 (150-450); RBC Distribution Width CV 14.4 % (11.6-14.6); Red Blood Count 4.15 M/mm3 (4.6-6.2); White Blood Count 17.2 K/mm3 (4.4-11.0)
--- NOTE | 2023-03-23 21:06 | RAD_ITS ---
STUDY: X-RAY CHEST REASON FOR EXAM: Male, 72 years old. ams TECHNIQUE: Single AP portable view of the chest. COMPARISON: 02/21/2023. FINDINGS: The lungs are clear and expanded. There is no demonstrated pleural abnormality. Normal size heart. Normal mediastinum and kalee. Normal visualized pulmonary arteries. Normal visualized aortic arch and descending thoracic aorta. Normal visualized thoracic spine. Normal visualized ribs, clavicles, and shoulders. There is no demonstrated abnormality of the visualized soft tissue structures of the upper abdomen. RAD/Chest 1 View (Portable) IMPRESSION: Normal x-ray examination of the chest. Electronically Signed: Geoffrey Loco MD at 21:27 [facility] ,
[2023-03-23 21:15] LABS: International Normalized Ratio 1.6; Prothrombin Time (Protime)PT. 18.8 SECONDS (11.7-14.9)
[2023-03-23 21:16] LABS: Partial Thromboplast Time 46.1 Seconds (24.1-36.2)
[2023-03-23 21:23] LABS: AST(SGOT) 18 U/L (15-37); Alanine Aminotransfer ALT/SGPT 19 U/L (16-61); Albumin, Serum 2.8 g/dL (3.2-5.0); Alkaline Phosphatase 83 U/L (45-117); Anion Gap 3 (5-15); BUN 18 mg/dL (7-18); BUN/Creat Ratio 13.7 RATIO (10-20); Bilirubin, Direct 0.64 mg/dL (0.00-0.30); Calcium,Total 8.1 mg/dL (8.5-10.1); Chloride 106 mmol/L (98-107); Creatinine, Serum 1.31 mg/dL (0.70-1.30); EST Glomerular Filtration Rate 57 mL/min (>60); Est Glom Filt Rate - Afr Amer 69 mL/min (>60); Estimated Creatinine Clearance 45.32 ml/min; Globulin 3.9 g/dL (2.2-4.2); Glucose 157 mg/dL (74-106); Protein, Total 6.7 g/dL (6.4-8.2); Sodium Level 136 mmol/L (136-145); Troponin-I HS 16 pg/mL (3.0-78.0)
[2023-03-23 21:36] LABS: BNP,B-Type NATRIURETIC PEPTIDE 187.6 pg/mL (0-100); Differential Indicated SCAN CRITERIA MET
[2023-03-23 21:39] LABS: Lactic Acid 2.2 mmol/L (0.4-1.9)
[2023-03-23 21:49] LABS: Mucous, Urine 0 SEEN /hpf (<or=2+)
[2023-03-23 21:54] LABS: Color, Urine Yellow (Yellow); Glucose, Dipstick Normal (Normal); Ketone-Dipstick 5 mg/dl (Negative); Leukocyte Esterase-Dipstick 500 /ul (Negative); Nitrite-Dipstick Positive (Negative); Occult Blood-Urine 150 /ul (Negative); Protein-Dipstick 30 mg/dl (Negative); Specific Gravity, Urine 1.025 (1.002-1.030); Urine Clarity Sl. Cloudy (Clear); Urine Urobilinogen 1 mg/dl (Normal)
[2023-03-23 21:57] LABS: Anisocytosis RARE; Macrocytosis RARE; Platelet Estimate ADEQUATE (ADEQ); Red Cell Morphology N CHROM NORMAL (NORM C&C)
[2023-03-23 21:58] LABS: Toxic Granulation RARE
[2023-03-23 22:02] LABS: Bacteria 3+ /hpf (None Seen); Red Blood Cells-Urine 10-25 SEEN /hpf (0-5); Squamous Epithelial Cells - UA 0-5 SEEN /hpf (0-5); Urine Bilirubin Dipstick 1 mg/dL (Negative); White Blood Cells 50-100 SEEN /hpf (0-5)
[2023-03-23 22:03] LABS: Amorphous Sediment 1+ URATE
[2023-03-23] MEDS: 0.9% Normal Saline (1000mL) 1,000 ML 999 ML IV (22:16)
[2023-03-23] MEDS: Ceftriaxone 1 GM/50 ML BAG IV (22:27)
--- NOTE | 2023-03-23 22:54 | HP.PCM.HOS_ITS ---
HPI - General General Date of Admission: 03/23/23 Date of Service: 03/23/23 Chief Complaint: Altered mentation HPI Narrative TURNER ROBERSON, is a 72 M who was brought to the emergency department by his son for changes in mentation and activity levels. Over the last 4 days, the son has noticed a progressive decline in the patient's functional status and activity. He has been having frequent loose stools associated with urinary and stool incontinence. There has been a change in the stool consistency along increased frequency to 3-4 bowel movements daily. No blood was noticed in stools. This evening the patient was more confused, would not respond appropriately, and the speech was slurred. Mr. Roberson has a history of recent CVA with residual right-sided deficits, right leg cellulitis, A-fib on Xarelto, morbid obesity, and has a history of recurrent hospitalizations. He was recently discharged from the hospital on 03/18/2023 where he was admitted for mechanical fall at home. The major concerns were failure to thrive, loss of functionality. He was also admitted from 01/28 to 01/31 for CVA and paroxysmal atrial fibrillation and had a right-sided hemiplegia and dysarthria. From 02/22- for pneumonia and cellulitis, with associated lower extremity lymphedema with venous stasis changes. He manages his medications by himself, but son helps out and all the major activities of daily living. Per the son he may have missed his Xarelto today. [facility] Medical History (Updated 03/23/23 @ 23:[address] Ann Cage MD) Anomalous origin of coronary artery Anticoagulant long-term use Arthritis Atherosclerotic heart disease of [place] coronary artery without angina pectoris Atrial fibrillation Atrial fibrillation Benign neoplasm of middle ear, nasal cavity and accessory sinuses BPH (benign prostatic hyperplasia) Cardiac murmur, unspecified Cellulitis Cellulitis of right lower limb Cervical disc disease Chronic venous stasis dermatitis of both lower extremities CPAP (continuous positive airway pressure) dependence CVA (cerebral vascular accident) Debility Deep venous thrombosis Dyspnea on minimal exertion Essential (primary) hypertension Former smoker FTT (failure to thrive) in adult GERD (gastroesophageal reflux disease) Hemiplegia affecting right dominant side Hyperglycemia Hyperlipidemia Hypertension Leg pain Low back pain Lymphedema Lymphedema of both lower extremities New onset atrial fibrillation (03/24/20) 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 Obesity ANDREE (obstructive sleep apnea) Pain in right lower leg Pain of left great toe Pain of left lower extremity due to injury Pneumonia Rotator cuff tear arthropathy of right shoulder Skin ulcer of left great toe with fat layer exposed Sleep apnea Toe ulcer Traumatic hematoma of left lower leg Venous insufficiency Home Medications rivaroxaban 20 mg tablet (Xarelto) 20 mg PO DINNER BLOOD THINNER #0 tabs 12/28/21 [Rx Last Taken 02/25/23] aspirin 81 mg chewable tablet 81 mg PO BREAKFAST blood thinner #0 tabs 01/31/23 [Rx Last Taken 03/23/23] acetaminophen 500 mg tablet 1,000 mg (2 x 500 mg) PO Q8 pain/fever #0 tabs 02/15/23 [Rx Last Taken 03/23/23] amlodipine 10 mg tablet 10 mg PO DAILY blood pressure 30 days #30 tabs 03/15/23 [Rx Last Taken 03/23/23] atorvastatin 40 mg tablet 40 mg PO QHS cholesterol 30 days #30 tabs 03/15/23 [Rx Last Taken 03/22/23] losartan 100 mg tablet 100 mg PO DAILY blood pressure 30 days #30 tabs 03/15/23 [Rx Last Taken 03/23/23] gabapentin 100 mg capsule 100 mg PO TIDCM nerve pain 30 days #90 caps 03/16/23 [Rx Last Taken 03/23/23] oxycodone 5 mg tablet 5 mg PO Q6H PRN PRN Pain Score 6-10 3 days #12 tabs 03/18/23 [Rx Last Taken 03/23/23] Allergy/AdvReac Type Severity Reaction Status Date / Time ibuprofen [From Motrin] AdvReac Nausea Verified 03/23/23 19:20 Family History Mother CAD (coronary artery disease) Hypertension History of cardiac radiofrequency ablation Sister Hypertension Other Arthritis Surgical History H/O cervical spine surgery History of bursectomy History of carpal tunnel release History of carpal tunnel surgery History of coronary artery stent placement (11/29/10) History of coronary artery stent placement History of fusion of cervical spine History of herniorrhaphy History of removal of cyst History of transurethral resection of prostate Social History household members: other details: Older son Naeem. Smoking Status: Former smoker alcohol intake: never substance use type: does not use ROS Constitutional Constitutional: Reports fatigue and malaise Cardiovascular Cardiovascular: Reports dyspnea on exertion and edema; Denies orthopnea, palpitations or paroxysmal nocturnal dyspnea Respiratory/Chest Respiratory/Chest: Denies cough, dyspnea or excessive phlegm production Gastrointestinal Gastrointestinal: Denies abdominal pain, coffee ground emesis, constipation, diarrhea, dyspepsia, hematemesis, hematochezia, loose stools, melena, nausea, vomiting or other Genitourinary Genitourinary: Reports urinary frequency and urinary hesitancy Musculoskeletal Musculoskeletal: Reports joint stiffness, joint swelling and myalgias Neurologic Neurologic: Reports abnormal speech and focal weakness Vital Signs Vital Signs Vital Signs: 03/23/23 19:21 03/23/23 19:33 03/23/23 19:33 Temperature 97.1 F L 99 F Temperature Source Temporal Oral Pulse Rate 95 Respiratory Rate 12 Respiratory Effort Normal Non-Labored Respiratory Pattern Normal Blood Pressure 109/65 98/66 Blood Pressure Mean 79 76 Pulse Ox 93 Oxygen Delivery Method Room Air 03/23/23 19:26 Temperature 99 F Temperature Source Oral Pulse Rate 70 Respiratory Rate 16 Respiratory Effort Respiratory Pattern Blood Pressure 98/66 Blood Pressure Mean 76 Pulse Ox 92 Oxygen Delivery Method Room Air Weight Weight: 261 lb 7.492 oz Body Mass Index (BMI) 42.2 Physical Exam Const alert and oriented x3 General Appearance: cooperative HEENT normocephalic Neck no JVD Cardio Cardio Narrative: Tachycardia, irregular rhythm GI normal to inspection, nondistended, normoactive bowel sounds Extremity Extremity Narrative: Bilateral lower limb edema, not pitting. Right lower extremity erythema, without tenderness. No collections or fluctuating lesions. Skin Skin Narrative: Erythematous changes over the chest Neuro oriented x3 Neuro Narrative: Right-sided deficit, increased drowsiness and would sleep during conversation. Results Medical Records Data Attestation: I reviewed the patient's medical records Lab / Micro Data Lab results narrative: There is leukocytosis, with pyuria and positive leuk esterase and nitrites in urine. 03/23/23 20:46 03/23/23 20:46 Labs: Laboratory Results - last 24 hr 03/23/23 20:46: WBC 17.2 H, RBC 4.15 L, Hgb 13.0, Hct 38.7 L, MCV 93.3, MCH 31.3, MCHC 33.6, RDW Std Deviation 49.0 H, RDW Coeff of Naz 14.4, Plt Count 163, MPV 9.7, Immature Gran % (Auto) 1.300 H, Neut % (Auto) 88.1 H, Lymph % (Auto) 2.9 L, [place] % (Auto) 7.5, Eos % (Auto) 0.0, Baso % (Auto) 0.2, Absolute Neuts (auto) 15.1 H, Absolute Lymphs (auto) 0.50 L, Nucleated RBC % 0, Differential Comment SEE COMMENT, Toxic Granulation RARE, Platelet Estimate ADEQUATE, RBC Morphology N CHROM, Anisocytosis RARE, Macrocytosis RARE, PT 18.8 H, INR 1.6, APTT 46.1 H, Sodium 136, Potassium 3.0 L, Chloride 106, Carbon Dioxide 27.0, Anion Gap 3 L, BUN 18, Creatinine 1.31 H, Estim Creat Clear Calc 45.32, Est GFR (MDRD) Af Amer 69, Est GFR (MDRD) Non-Af 57 L, BUN/Creatinine Ratio 13.7, Glucose 157 H, Lactic Acid 2.2 H*, Calcium 8.1 L, Total Bilirubin 1.60 H, Direct Bilirubin 0.64 H, AST 18, ALT 19, Alkaline Phosphatase 83, Troponin I High Sens 16, B-Natriuretic Peptide 187.6 H, Total Protein 6.7, Albumin 2.8 L, Globulin 3.9 03/23/23 21:28: Urine Color Yellow, Urine Clarity Sl. Cloudy, Urine pH 5.0, Ur Specific [place] 1.025, Urine Protein 30 H, Urine Glucose (UA) Normal, Urine Ketones 5 H, Urine Occult Blood 150 H, Urine Nitrite Positive H, Urine Bilirubin 1 H, Urine Urobilinogen 1 H, Ur Leukocyte Esterase 500 H, Urine RBC 10-25 SEEN, Urine WBC 50-100 SEEN, Ur Squamous Epith Cells 0-5 SEEN, Amorphous Sediment 1+ URATE, Urine Bacteria 3+, Urine Mucus 0 SEEN Micro: Microbiology 03/23/23 20:46 Nasal Secretion SARS-CoV-2 & FLU Antigen (Rapid) - Final Imagaing Radiology Impression Brain CT 03/23/23 20:04 IMPRESSION: No acute abnormality since previous studies. White matter disease. Recent left em radiata infarct. Electronically Signed: Geoffrey Loco MD at 21:36 EST , Chest X-Ray 03/23/23 21:06 IMPRESSION: Normal x-ray examination of the chest. Electronically Signed: Geoffrey Loco MD at 21:27 EST , Assessment & Plan Assessment/Plan (1) Urinary tract infection: QUALIFIERS: Hematuria presence: without hematuria Urinary tract infection type: site unspecified Qualified Code(s): N39.0 - Urinary tract infection, site not specified PLAN: Clinical presentation, laboratory findings are supportive of active urosepsis. The ongoing incontinence with stool and urine more likely risk factors that led to his UTI at this time. Will follow-up on the urine cultures, blood cultures. Continue ceftriaxone at this time if there is no response and leukocytosis will escalate to Zosyn. He has bilateral pedal edema and assessing his volume status is difficult. We will continue gentle fluid with about 150 mL/h for 4 hours tonight. (2) Encephalopathy acute: PLAN: The changes in his mentation are likely related to the sepsis. There is improvement with fluid therapy and antibiotics already. No concerns regarding stroke at this time. He is at a very high risk of developing delirium. Will follow delirium protocol during his admission. (3) Adult failure to thrive: PLAN: Due to his health conditions he has gradually lost a lot of his functional status. Not able to take care of his activities of daily living at this time. This is his fourth or fifth admission in the last 3 months. Would require SNF placement for further management of this condition and rehabilitation. Will consult physical therapy and Occupational Therapy for further evaluation tomorrow. (4) Hypokalemia: PLAN: Hypokalemia could be due to the ongoing diarrhea, or due to decreased p.o. intake also. We will replace with IV potassium chloride. (5) Essential (primary) hypertension: PLAN: Continue home antihypertensive medications. Will admit him to PCU for fur ther close monitoring of his cardiac rhythm and blood pressures. (6) Diarrhea: QUALIFIERS: Diarrhea type: infectious Qualified Code(s): A09 - Infectious gastroenteritis and colitis, unspecified PLAN: He is having 6-7 loose stools over the last 2 to 3 days. Given his recurrent hospitalizations, recent antibiotic use there is a high risk of C. difficile infection. We will rule out C. difficile and also stool cultures to complete his infection workup. Will continue ceftriaxone for now. (7) Cellulitis: QUALIFIERS: Laterality: unspecified laterality Site of cellulitis: extremity Site of cellulitis of extremity: lower extremity Qualified Code(s): L03.119 - Cellulitis of unspecified part of limb PLAN: He has bilateral nonpitting edema, with erythematous discoloration of his right lower extremity. This could be simply because of venous stasis, but overall presentation could be due to cellulitis. Continue ceftriaxone for the same, close monitoring of the skin lesions.
[2023-03-23] MEDS: Rivaroxaban 20 MG Tablet PO (23:48)
[2023-03-23] MEDS: Lactated Ringers 1,000 ML 150 ML IV (23:50)
[2023-03-23] MEDS: 0.9% Saline Lock 10 ML Syringe IV (23:51)
[2023-03-23] MEDS: Atorvastatin Calcium 40 MG Tablet PO (23:54)
[2023-03-23] MEDS: Potassium Chloride Oral Tablet 20 MEQ 40 MEQ PO (23:54)
[2023-03-24 00:58] LABS: Reflex Lactate? Y
[2023-03-24 01:51] LABS: Lactic Acid 2.6 mmol/L (0.4-1.9)
[2023-03-24 03:37] VITALS: BP 133/90; PULSE 88; RESP 16; TEMP 37.6; O2SAT 96
[2023-03-24] MEDS: Nystatin Powder 15gm Bottle 1 APPLIC TOPICAL ×3 (05:22→20:57)
[2023-03-24 06:23] LABS: Absolute Lymphocyte Count 0.62 X10^3/uL (0.83-4.51); Basophil# 0.01 X10^3/uL; Basophil% 0.1 % (0-1); Eosinophil# 0.03 X10^3/uL; Eosinophils% 0.2 % (0-5); Hematocrit 37.3 % (40-54); Hemoglobin 12.5 g/dL (13.0-16.5); Lymphocyte # 0.62 X10^3/ul (0.83-4.51); Lymphocyte % 4.4 % (19-41); Mean Corp Hgb Conc 33.5 g/dL (32-36); Mean Corpuscular Volume 95.4 fL (80-94); Mean Platelet Vol. 9.6 fl (6.2-12.0); Monocyte# 1.23 X10^3/uL; Monocyte% 8.8 % (0-10); NRBC Flagged by Analyzer 0 % (0-5); Neutrophil # 12.01 X10^3/uL (2.7-7.7); Neutrophil % 85.9 % (47-70); Platelet Count 149 K/mm3 (150-450); RBC Distribution Width CV 14.6 % (11.6-14.6); RBC Distribution Width SD 51.1 fl (35.1-43.9); Red Blood Count 3.91 M/mm3 (4.6-6.2)
[2023-03-24 06:31] LABS: International Normalized Ratio 3.1
[2023-03-24 06:55] LABS: Lactic Acid 1.1 mmol/L (0.4-1.9)
[2023-03-24 06:58] LABS: ALB/GLOB Ratio 0.7 RATIO (0.9-2.4); AST(SGOT) 18 U/L (15-37); Alanine Aminotransfer ALT/SGPT 18 U/L (16-61); Albumin, Serum 2.6 g/dL (3.2-5.0); Alkaline Phosphatase 87 U/L (45-117); Anion Gap 5 (5-15); BUN 17 mg/dL (7-18); BUN/Creat Ratio 15.9 RATIO (10-20); Calcium,Total 8.1 mg/dL (8.5-10.1); Chloride 108 mmol/L (98-107); Creatinine, Serum 1.07 mg/dL (0.70-1.30); EST Glomerular Filtration Rate 72 mL/min (>60); Est Glom Filt Rate - Afr Amer 87 mL/min (>60); Estimated Creatinine Clearance 55.49 ml/min; Globulin 3.7 g/dL (2.2-4.2); Glucose 121 mg/dL (74-106); Magnesium 1.9 mg/dL (1.6-2.6); Phosphorus 2.2 mg/dL (2.5-4.9); Potassium 3.5 mmol/L (3.5-5.1); Protein, Total 6.3 g/dL (6.4-8.2); Sodium Level 137 mmol/L (136-145); Thyroid Stim Hormone (TSH) 0.96 uIU/mL (0.358-3.74)
[2023-03-24 07:33] VITALS: O2SAT 96
--- NOTE | 2023-03-24 07:39 | PCM.PN.HOSP ---
Reason for Visit Reason for Visit: Diagnoses Infectious gastroenteritis and colitis, unspecified (03/23/23) Hypokalemia (03/23/23) Encephalopathy, unspecified (03/23/23) Essential (primary) hypertension (03/23/23) Cellulitis of unspecified part of limb (03/23/23) Urinary tract infection, site not specified (03/23/23) Adult failure to thrive (03/23/23) Subjective Subjective Patient is a 72-year-old gentleman who was admitted with altered mental status. An assessment of acute cystitis made admitted to regular nursing floor for further manageme Objective Data Objective Data Vital Signs: Vital Signs Temp Pulse Resp BP Pulse Ox O2 Del Method 99.7 F H 88 16 133/90 H 96 Room Air 03/24/23 03:37 03/24/23 03:37 03/24/23 03:37 03/24/23 03:37 03/24/23 03:37 03/24/23 03:37 Oxygen Delivery Method Room Air Weight: 116.9 kg Body Mass Index (BMI) 41.5 Intake & Output: Intake and Output for Last 24 Hours 03/22/23 03/23/23 03/24/23 23:59 23:59 23:59 Intake Total 2049 / 0 Output Total 600 / 600 Balance 1450 / 1450 Lab / Micro Data 03/24/23 06:14 03/24/23 06:14 Labs: Laboratory Results - last 24 hr 03/23/23 20:46: WBC 17.2 H, RBC 4.15 L, Hgb 13.0, Hct 38.7 L, MCV 93.3, MCH 31.3, MCHC 33.6, RDW Std Deviation 49.0 H, RDW Coeff of Naz 14.4, Plt Count 163, MPV 9.7, Immature Gran % (Auto) 1.300 H, Neut % (Auto) 88.1 H, Lymph % (Auto) 2.9 L, [place] % (Auto) 7.5, Eos % (Auto) 0.0, Baso % (Auto) 0.2, Absolute Neuts (auto) 15.1 H, Absolute Lymphs (auto) 0.50 L, Nucleated RBC % 0, Differential Comment SEE COMMENT, Toxic Granulation RARE, Platelet Estimate ADEQUATE, RBC Morphology N CHROM, Anisocytosis RARE, Macrocytosis RARE, PT 18.8 H, INR 1.6, APTT 46.1 H, Sodium 136, Potassium 3.0 L, Chloride 106, Carbon Dioxide 27.0, Anion Gap 3 L, BUN 18, Creatinine 1.31 H, Estim Creat Clear Calc 45.32, Est GFR (MDRD) Af Amer 69, Est GFR (MDRD) Non-Af 57 L, BUN/Creatinine Ratio 13.7, Glucose 157 H, Lactic Acid 2.2 H*, Calcium 8.1 L, Total Bilirubin 1.60 H, Direct Bilirubin 0.64 H, AST 18, ALT 19, Alkaline Phosphatase 83, Troponin I High Sens 16, B-Natriuretic Peptide 187.6 H, Total Protein 6.7, Albumin 2.8 L, Globulin 3.9 03/23/23 21:28: Urine Color Yellow, Urine Clarity Sl. Cloudy, Urine pH 5.0, Ur Specific [place] 1.025, Urine Protein 30 H, Urine Glucose (UA) Normal, Urine Ketones 5 H, Urine Occult Blood 150 H, Urine Nitrite Positive H, Urine Bilirubin 1 H, Urine Urobilinogen 1 H, Ur Leukocyte Esterase 500 H, Urine RBC 10-25 SEEN, Urine WBC 50-100 SEEN, Ur Squamous Epith Cells 0-5 SEEN, Amorphous Sediment 1+ URATE, Urine Bacteria 3+, Urine Mucus 0 SEEN 03/24/23 00:40: Lactic Acid 2.6 H* 03/24/23 06:14: WBC 14.0 H, RBC 3.91 L, Hgb 12.5 L, Hct 37.3 L, MCV 95.4 H, MCH 32.0, MCHC 33.5, RDW Std Deviation 51.1 H, RDW Coeff of Naz 14.6, Plt Count 149 L, MPV 9.6, Immature Gran % (Auto) 0.600, Neut % (Auto) 85.9 H, Lymph % (Auto) 4.4 L, [place] % (Auto) 8.8, Eos % (Auto) 0.2, Baso % (Auto) 0.1, Absolute Neuts (auto) 12.0 H, Absolute Lymphs (auto) 0.62 L, Nucleated RBC % 0, PT 32.0 H, INR 3.1, Sodium 137, Potassium 3.5, Chloride 108 H, Carbon Dioxide 24.0, Anion Gap 5, BUN 17, Creatinine 1.07, Estim Creat Clear Calc 55.49, Est GFR (MDRD) Af Amer 87, Est GFR (MDRD) Non-Af 72, BUN/Creatinine Ratio 15.9, Glucose 121 H, Lactic Acid 1.1, Calcium 8.1 L, Phosphorus 2.2 L, Magnesium 1.9, Total Bilirubin 1.70 H, AST 18, ALT 18, Alkaline Phosphatase 87, Total Protein 6.3 L, Albumin 2.6 L, Globulin 3.7, Albumin/Globulin Ratio 0.7 L, TSH 0.96 Micro: Microbiology 03/23/23 20:46 Nasal Secretion SARS-CoV-2 & FLU Antigen (Rapid) - Final Radiography Diagnostic Testing: Radiology Impression Brain CT 03/23/23 20:04 IMPRESSION: No acute abnormality since previous studies. White matter disease. Recent left em radiata infarct. Electronically Signed: Geoffrey Loco MD at 21:36 EST , Chest X-Ray 03/23/23 21:06 IMPRESSION: Normal x-ray examination of the chest. Electronically Signed: Geoffrey Loco MD at 21:27 EST , Physical Exam Narrative GENERAL: cooperative HEENT: Atraumatic; normocephalic EYES; Anicteric, Normal Conjunctiva NECK; supple, normal thyroid, RESPIRATORY: Diminished to auscultation CARDIOVASCULAR: Regular S1 S2, GI: soft, normoactive bowel sounds, : No Renal angle tenderness; EXTREMITIES: No edema, no clubbing, MUSCULOSKELETAL: no muscle wasting NEURO: Right-sided hemiplegia SKIN: No Rash PSYCH; Flat affect Assessment & Plan Assessment/Plan (1) Encephalopathy acute: PLAN: Plan Patient is a 72-year-old gentleman who was admitted with altered mental status. An assessment of acute cystitis made admitted to regular nursing floor for further management 1. Sepsis secondary to acute cystitis. Patient had evidence of infection with more than 2 SIRS criteria including leukocytosis and elevated lactic acid greater than 2. Admitted to monitored bed with treatment of the underlying condition 2. Acute metabolic encephalopathy ? Secondary to acute cystitis. Admitted to monitored bed managed with IV fluids broad-spectrum antibiotic therapy with ceftriaxone and cultures sent 3. Hypokalemia -Corrected per protocol 4. Diarrhea ? Given patient recent hospitalization, patient was kept in isolation whiles stool for ova and parasite as well as C. difficile 5. 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 Right shoulder pain ? Possibly related to rotator cuff tendinopathy requested for PT OT as tolerated 7. Class III obesity with BMI of 41.6 ? Weight loss advised 8. Chronic A-fib ? Rate controlled patient placed on telemetry for continuous monitoring patient is on systemic anticoagulation with rivaroxaban continued 9. Obstructive sleep apnea ? Complicating care 10. History of previous DVT ? Patient is on rivaroxaban 11. Dyslipidemia -Patient is on statin therapy, continued at home dose 12. Physical deconditioning - Requested for PT OT eval and social organization professor to assist with discharge planning 13. DVT prophylaxis ? On [place] Lovenox Time spent in the patient's overall evaluation,decision-making process, review of diagnostic data, adjustment of management, discussion with other providers, nursing nursing and ancillary staff involved in patient's care documentation, 53 Minutes Charges/Coding Visit Charges Inpatient E&M: 37093 [facility] L3
[2023-03-24 08:53] VITALS: BP 114/59; PULSE 71; RESP 15; TEMP 37.1; O2SAT 96
[2023-03-24] MEDS: Gabapentin 100 MG Capsule PO ×3 (09:03→16:18)
[2023-03-24] MEDS: amLODIPine 10 MG Tablet PO (09:03)
[2023-03-24] MEDS: Losartan Potassium 100 MG Tablet PO (09:03)
[2023-03-24] MEDS: Aspirin 81 MG TAB.CHEW PO (09:03)
[2023-03-24] MEDS: oxyCODONE 5 MG Tablet PO (09:04)
--- NOTE | 2023-03-24 09:45 | CASEMGMT ---
RN CM chart review: Patient was admitted 03/16-03/18/23 for fall and FTT. See RN CM assessment from 03/17/23. Patient was discharged to home with resumption of HHC with [facility] that was setup when patient was discharged from TCU on 03/15/23. Patient returned to [facility] ED on 03/23/23 for altered mental status and wealkness, patient was admitted for urosepsis. Patient states he has appt with PCP on 03/30/23. Patient was not sure if C had been out to see patient. Patient states he wishes to discharge home. RN CM discuss progress with therapy, dependent x2 for transfers. RN CM discussed 2 admissions in a week since discharging from TCU and possible need for SNF at discharge. Patient willing to consider and discuss with son. A list of SNF providers including quality and resource use data and consistent with the patient?s preferred geographical region, medical needs, and insurance network were provided from the [employer] Guide. SW updated regarding possible need for SNF at discharge. CM will continue to follow this patient and plan for a safe discharge.
--- NOTE | 2023-03-24 12:55 | CASEMGMT ---
Social Work SW spoke w/pt and son in room in regard to discharge plan. Son would like pt to go to TCU. SW explained can make referral but there may not be a bed available. SW asked son to review list and come up with a couple of other options in the event TCU does not have a bed. Son then went on to say that he would like for pt to go somewhere for rehab for a couple of months so that he can get enough rehab to get better. Son states if pt cannot go somewhere for a couple of months he will just keep coming back into the hospital and repeating this cycle. SW explained the limits of insurance, that they will authorize until pt plateaus, or no longer needs therapy. SW did also talk to son about the appeal process if insurance states that they will not cover SNF any longer, son states he was unaware. SW explained that insurance will not pay for retirement placement, just for short term rehab. We also spoke about paying privately vs applying for Medicaid. Pt is concerned that he would lose everything if he were to apply for Medicaid. Son states is aware if needed Medicaid to go to the senior care for an extended time but not to stay, that pt would not lose everything. SW also explained if pt were to need 2 months, TCU would not be the appropriate place, also explained that TCU does not take Medicaid. Son states if pt had a month in TCU it may be long enough and then pt could go home, or he could work w/them to send pt elsewhere. SW let son know again that there may not be beds. SW explained will make referral, but again asked son to review list and come up with some other options. Son states understanding. Plan: SNF, facility [facility]
[2023-03-24 15:58] VITALS: BP 112/81; PULSE 87; RESP 16; TEMP 37.7; O2SAT 96
[2023-03-24] MEDS: Rivaroxaban 20 MG Tablet PO (16:16)
[2023-03-24] MEDS: Ceftriaxone 1 GM/50 ML BAG IV (20:57)
[2023-03-24] MEDS: Atorvastatin Calcium 40 MG Tablet PO (20:58)
[2023-03-24 21:00] VITALS: BP 136/90; PULSE 79; RESP 18; TEMP 37.5; O2SAT 94
[2023-03-25 01:15] VITALS: BP 135/78; PULSE 93; RESP 18; TEMP 38.2; O2SAT 95
[2023-03-25] MEDS: Acetaminophen 325 MG Tablet 650 MG PO (04:02)
[2023-03-25 04:45] VITALS: BP 123/83; PULSE 80; RESP 18; TEMP 38.2; O2SAT 95
[2023-03-25 05:33] LABS: Absolute Lymphocyte Count 0.84 X10^3/uL (0.83-4.51); Absolute Neutrophil Count 8.2 X10^3/uL (2.0-7.7); Basophil# 0.03 X10^3/uL; Basophil% 0.3 % (0-1); Eosinophil# 0.27 X10^3/uL; Eosinophils% 2.6 % (0-5); Hematocrit 38.3 % (40-54); Hemoglobin 12.8 g/dL (13.0-16.5); Lymphocyte # 0.84 X10^3/ul (0.83-4.51); Lymphocyte % 8.1 % (19-41); Mean Corp Hgb Conc 33.4 g/dL (32-36); Mean Corpuscular Hgb 31.4 pg (27.0-32.0); Mean Corpuscular Volume 93.9 fL (80-94); Mean Platelet Vol. 10.3 fl (6.2-12.0); Monocyte# 1.02 X10^3/uL; Monocyte% 9.8 % (0-10); NRBC Flagged by Analyzer 0 % (0-5); Neutrophil # 8.19 X10^3/uL (2.7-7.7); Neutrophil % 78.5 % (47-70); Platelet Count 163 K/mm3 (150-450); RBC Distribution Width CV 14.3 % (11.6-14.6); RBC Distribution Width SD 49.4 fl (35.1-43.9); Red Blood Count 4.08 M/mm3 (4.6-6.2); White Blood Count 10.4 K/mm3 (4.4-11.0)
[2023-03-25 06:01] LABS: Anion Gap 6 (5-15); BUN 20 mg/dL (7-18); BUN/Creat Ratio 21.2 RATIO (10-20); Calcium,Total 8.1 mg/dL (8.5-10.1); Chloride 107 mmol/L (98-107); Creatinine, Serum 0.94 mg/dL (0.70-1.30); EST Glomerular Filtration Rate 83 mL/min (>60); Est Glom Filt Rate - Afr Amer 101 mL/min (>60); Estimated Creatinine Clearance 63.16 ml/min; Glucose 115 mg/dL (74-106); Phosphorus 2.6 mg/dL (2.5-4.9); Potassium 3.3 mmol/L (3.5-5.1); Sodium Level 138 mmol/L (136-145)
--- NOTE | 2023-03-25 07:19 | PN.HOSP_ITS ---
Reason for Visit Reason for Visit: Diagnoses Infectious gastroenteritis and colitis, unspecified (03/23/23) Hypokalemia (03/23/23) Encephalopathy, unspecified (03/23/23) Essential (primary) hypertension (03/23/23) Cellulitis of unspecified part of limb (03/23/23) Urinary tract infection, site not specified (03/23/23) Adult failure to thrive (03/23/23) Subjective Subjective Patient seen, stool for C. difficile for -2 days patient however continues to experience watery diarrhea. Objective Data Objective Data Vital Signs: Vital Signs Temp Pulse Resp BP Pulse Ox O2 Del Method 100.8 F H 80 18 123/83 H 95 Room Air 03/25/23 04:45 03/25/23 04:45 03/25/23 04:45 03/25/23 04:45 03/25/23 04:45 03/25/23 04:45 Oxygen Delivery Method Room Air Weight: 116.9 kg Body Mass Index (BMI) 41.5 Intake & Output: Intake and Output for Last 24 Hours 03/23/23 03/24/23 03/25/23 23:59 23:59 23:59 Intake Total 3100 / 3250 150 / 150 Output Total 1500 / 1900 600 / 600 Balance 1600 / 1350 -450 / -450 Lab / Micro Data 03/25/23 04:44 03/25/23 04:44 Labs: Laboratory Results - last 24 hr 03/25/23 04:44: WBC 10.4, RBC 4.08 L, Hgb 12.8 L, Hct 38.3 L, MCV 93.9, MCH 31.4, MCHC 33.4, RDW Std Deviation 49.4 H, RDW Coeff of Naz 14.3, Plt Count 163, MPV 10.3, Immature Gran % (Auto) 0.700, Neut % (Auto) 78.5 H, Lymph % (Auto) 8.1 L, Mcmullen % (Auto) 9.8, Eos % (Auto) 2.6, Baso % (Auto) 0.3, Absolute Neuts (auto) 8.2 H, Absolute Lymphs (auto) 0.84, Nucleated RBC % 0, Sodium 138, Potassium 3.3 L, Chloride 107, Carbon Dioxide 25.0, Anion Gap 6, BUN 20 H, Creatinine 0.94, Estim Creat Clear Calc 63.16, Est GFR (MDRD) Af Amer 101, Est GFR (MDRD) Non-Af 83, BUN/Creatinine Ratio 21.2 H, Glucose 115 H, Calcium 8.1 L, Phosphorus 2.6, Magnesium 2.0 Micro: Microbiology 03/24/23 21:15 Stool C. difficile DNA Amplification - Final 03/23/23 20:46 Nasal Secretion SARS-CoV-2 & FLU Antigen (Rapid) - Final Physical Exam Narrative GENERAL: cooperative HEENT: Atraumatic; normocephalic EYES; Anicteric, Normal Conjunctiva NECK; supple, normal thyroid, RESPIRATORY: Diminished to auscultation CARDIOVASCULAR: Regular S1 S2, GI: soft, normoactive bowel sounds, : No Renal angle tenderness; EXTREMITIES: No edema, no clubbing, MUSCULOSKELETAL: no muscle wasting NEURO: Right-sided hemiplegia SKIN: No Rash PSYCH; Flat affect Assessment & Plan Assessment/Plan (1) Encephalopathy acute: PLAN: Plan Patient is a 72-year-old gentleman who was admitted with altered mental status. An assessment of acute cystitis made admitted to regular nursing floor for further management 1. Sepsis secondary to acute cystitis. Patient had evidence of infection with more than 2 SIRS criteria including leukocytosis and elevated lactic acid greater than 2. Admitted to monitored bed with treatment of the underlying condition 2. Acute metabolic encephalopathy ? Secondary to acute cystitis. Admitted to monitored bed managed with IV fluids broad-spectrum antibiotic therapy with ceftriaxone and cultures sent ? 03/25/2023; patient back to baseline with regards to sensorium 3. Acute cystitis ? Patient is on ceftriaxone cultures sent awaiting results 4. Diarrhea ? Given patient recent hospitalization, patient was kept in isolation whiles stool for ova and parasite as well as C. difficile ? 03/25/2023; stool cultures for ova and parasite still pending, his stool for C. difficile came back negative 5. 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 Right shoulder pain ? Possibly related to rotator cuff tendinopathy requested for PT OT as tolerated 7. Class III obesity with BMI of 41.6 ? Weight loss advised 8. Chronic A-fib ? Rate controlled patient placed on telemetry for continuous monitoring patient is on systemic anticoagulation with rivaroxaban continued 9. Obstructive sleep apnea ? Complicating care 10. History of previous DVT ? Patient is on rivaroxaban 11. Dyslipidemia -Patient is on statin therapy, continued at home dose 12. Physical deconditioning - Requested for PT OT eval and geriatric social work professor to assist with discharge planning 13. Hypokalemia -Corrected per protocol 14. DVT prophylaxis ? On SC Lovenox Time spent in the patient's overall evaluation,decision-making process, review of diagnostic data, adjustment of management, discussion with other providers, nursing nursing and ancillary staff involved in patient's care documentation,40 Minutes Charges/Coding Visit Charges Inpatient E&M: 54421 Subs Hosp L2
[2023-03-25 07:51] VITALS: BP 128/86; PULSE 73; RESP 16; TEMP 36.6; O2SAT 95
[2023-03-25] MEDS: Potassium Chloride Oral Tablet 20 MEQ PO ×2 (07:56→16:50)
[2023-03-25] MEDS: Gabapentin 100 MG Capsule PO ×3 (07:56→16:50)
[2023-03-25] MEDS: oxyCODONE 5 MG Tablet PO (07:56)
[2023-03-25] MEDS: Aspirin 81 MG TAB.CHEW PO (07:58)
[2023-03-25] MEDS: amLODIPine 10 MG Tablet PO (07:58)
[2023-03-25] MEDS: Losartan Potassium 100 MG Tablet PO (07:58)
[2023-03-25 14:37] VITALS: BP 144/87; PULSE 75; RESP 15; TEMP 37; O2SAT 98
[2023-03-25] MEDS: Nystatin Powder 15gm Bottle 1 APPLIC TOPICAL ×2 (14:51→21:30)
[2023-03-25] MEDS: Rivaroxaban 20 MG Tablet PO (16:56)
[2023-03-25 21:30] VITALS: BP 142/94; PULSE 79; RESP 18; TEMP 37.6; O2SAT 96
[2023-03-25] MEDS: Ceftriaxone 1 GM/50 ML BAG IV (21:31)
[2023-03-25] MEDS: 0.9% Normal Saline (250mL Bag) 250 ML 15 ML IV (21:31)
[2023-03-25] MEDS: Atorvastatin Calcium 40 MG Tablet PO (21:31)
[2023-03-26 03:50] VITALS: BP 124/90; PULSE 84; RESP 18; TEMP 36.7; O2SAT 95
[2023-03-26] MEDS: Nystatin Powder 15gm Bottle 1 APPLIC TOPICAL ×2 (04:53→22:25)
[2023-03-26 05:01] LABS: Absolute Lymphocyte Count 0.86 X10^3/uL (0.83-4.51); Absolute Neutrophil Count 5.1 X10^3/uL (2.0-7.7); Basophil# 0.03 X10^3/uL; Basophil% 0.4 % (0-1); Eosinophil# 0.42 X10^3/uL; Eosinophils% 5.6 % (0-5); Hematocrit 38.1 % (40-54); Hemoglobin 12.7 g/dL (13.0-16.5); Lymphocyte # 0.86 X10^3/ul (0.83-4.51); Lymphocyte % 11.4 % (19-41); Mean Corp Hgb Conc 33.3 g/dL (32-36); Mean Corpuscular Hgb 31.1 pg (27.0-32.0); Mean Corpuscular Volume 93.2 fL (80-94); Mean Platelet Vol. 9.8 fl (6.2-12.0); Monocyte# 1.04 X10^3/uL; Monocyte% 13.8 % (0-10); NRBC Flagged by Analyzer 0 % (0-5); Neutrophil # 5.14 X10^3/uL (2.7-7.7); Neutrophil % 68.4 % (47-70); Platelet Count 188 K/mm3 (150-450); RBC Distribution Width CV 14.1 % (11.6-14.6); RBC Distribution Width SD 48.3 fl (35.1-43.9); Red Blood Count 4.09 M/mm3 (4.6-6.2); White Blood Count 7.5 K/mm3 (4.4-11.0)
[2023-03-26 05:36] LABS: Anion Gap 8 (5-15); BUN 17 mg/dL (7-18); BUN/Creat Ratio 18.8 RATIO (10-20); Calcium,Total 8.1 mg/dL (8.5-10.1); Chloride 106 mmol/L (98-107); EST Glomerular Filtration Rate 88 mL/min (>60); Est Glom Filt Rate - Afr Amer 106 mL/min (>60); Estimated Creatinine Clearance 65.97 ml/min; Glucose 117 mg/dL (74-106); Potassium 3.1 mmol/L (3.5-5.1); Sodium Level 138 mmol/L (136-145)
[2023-03-26 09:50] VITALS: BP 131/63; PULSE 78; RESP 16; TEMP 37.4; O2SAT 96
[2023-03-26] MEDS: Potassium Chloride Oral Tablet 20 MEQ 40 MEQ PO (09:59)
[2023-03-26] MEDS: Potassium Chloride Oral Tablet 20 MEQ PO ×2 (10:00→17:51)
[2023-03-26] MEDS: Losartan Potassium 100 MG Tablet PO (10:00)
[2023-03-26] MEDS: Aspirin 81 MG TAB.CHEW PO (10:00)
[2023-03-26] MEDS: Gabapentin 100 MG Capsule PO ×3 (10:00→17:51)
[2023-03-26] MEDS: amLODIPine 10 MG Tablet PO (10:00)
--- NOTE | 2023-03-26 10:24 | CASEMGMT ---
TCU is not able to take patient as they do not have any beds available. SW called patient's son Naeem and let him know this information. Naeem said she will talk with patient about it when he comes in later. SW will also check in with patient. Batsheva ANTUNEZ
--- NOTE | 2023-03-26 10:58 | CASEMGMT ---
SW spoke with patient letting him know TCU is unable to take him. Patient said he would be open to [facility] in [place]. JESSIE told patient SW will work on sending a referral. JESSIE asked Mary d/jorge technical administrative assistant to send a referral to [facility]. Batsheva Campbell ANODIZER HARMONY
--- NOTE | 2023-03-26 11:09 | CASEMGMT ---
Discharge Planning Referral sent to [facility] via [facility]. Mary Salcido, Discharge Planning Asst.
--- NOTE | 2023-03-26 13:34 | CASEMGMT ---
[facility] responded via [employer] and said they are not in network with patient's insurance. SW notified patient. Patient said he and his son will discuss other options this evening. SW will check back with patient tomorrow. Btasheva ANTUNEZ
[2023-03-26 16:00] VITALS: BP 118/79; PULSE 84; RESP 16; TEMP 36.3; O2SAT 97
--- NOTE | 2023-03-26 16:55 | PCM.PN.HOSP ---
Reason for Visit Reason for Visit: Diagnoses Infectious gastroenteritis and colitis, unspecified (03/23/23) Hypokalemia (03/23/23) Encephalopathy, unspecified (03/23/23) Essential (primary) hypertension (03/23/23) Cellulitis of unspecified part of limb (03/23/23) Urinary tract infection, site not specified (03/23/23) Adult failure to thrive (03/23/23) Subjective Subjective Patient was seen and examined today, I talked to discharge planning and patient is awaiting approval to go to an extended care facility for short-term rehab services. Patient does not complain of any fevers or chills to this examiner. Patient's stool cultures were all negative for enteric pathogens and C. difficile. Objective Data Objective Data Vital Signs: Vital Signs Temp Pulse Resp BP Pulse Ox O2 Del Method 97.4 F L 84 16 118/79 97 Room Air 03/26/23 16:00 03/26/23 16:00 03/26/23 16:00 03/26/23 16:00 03/26/23 16:00 03/26/23 16:00 Oxygen Delivery Method Room Air Weight: 116.9 kg Body Mass Index (BMI) 41.5 Intake & Output: Intake and Output for Last 24 Hours 03/24/23 03/25/23 03/26/23 23:59 23:59 23:59 Intake Total 3100 / 3250 496.67 / 496.67 630 / 630 Output Total 1500 / 1900 1000 / 2150 2200 / 2200 Balance 1600 / 1350 -503.33 / -1653.33 -1570 / -1570 Lab / Micro Data 03/26/23 04:24 03/26/23 04:24 Labs: Laboratory Results - last 24 hr 03/26/23 04:24: WBC 7.5, RBC 4.09 L, Hgb 12.7 L, Hct 38.1 L, MCV 93.2, MCH 31.1, MCHC 33.3, RDW Std Deviation 48.3 H, RDW Coeff of Naz 14.1, Plt Count 188, MPV 9.8, Immature Gran % (Auto) 0.400, Neut % (Auto) 68.4, Lymph % (Auto) 11.4 L, [place]asta % (Auto) 13.8 H, Eos % (Auto) 5.6 H, Baso % (Auto) 0.4, Absolute Neuts (auto) 5.1, Absolute Lymphs (auto) 0.86, Nucleated RBC % 0, Sodium 138, Potassium 3.1 L, Chloride 106, Carbon Dioxide 24.0, Anion Gap 8, BUN 17, Creatinine 0.90, Estim Creat Clear Calc 65.97, Est GFR (MDRD) Af Amer 106, Est GFR (MDRD) Non-Af 88, BUN/Creatinine Ratio 18.8, Glucose 117 H, Calcium 8.1 L Micro: Microbiology 03/26/23 04:10 Stool Enteric Bacteriology - Final 03/23/23 21:08 Blood Culture (Wb) - Arm Left Blood Culture - Preliminary No growth in 48 hours. 03/23/23 20:46 Blood Culture (Wb) - Arm Left Blood Culture - Preliminary No growth in 48 hours. 03/24/23 21:15 Stool C. difficile DNA Amplification - Final 03/23/23 20:46 Nasal Secretion SARS-CoV-2 & FLU Antigen (Rapid) - Final Physical Exam Const alert and no apparent distress Constitutional Narrative: Patient is morbidly obese General Appearance: cooperative, well kempt and well developed Orientation / Consciousness: awake, oriented to person and oriented to place HEENT normocephalic, head/scalp atraumatic and moist oral mucous membranes Eyes PERRL, EOMs intact bilaterally and conjunctivae normal Neck supple, no JVD, thyroid normal and no carotid bruits General: trachea midline Resp normal respiratory effort, no retractions, no use of accessory muscles and clear to auscultation bilaterally Auscultation: Negative for rales, rhonchi or wheezes Cardio regular rate, regular rhythm, S1 normal heart sound, S2 normal heart sound, no murmurs, no rub and no gallops GI normal to inspection, nondistended, normoactive bowel sounds, soft to palpation, non-tender and non-distended Extremity no clubbing, cyanosis or edema Skin no rashes or lesions noted General Skin Exam: no breakdown Neuro CN's II-XII intact bilaterally Neuro Narrative: Patient has right hemiplegia Sensorium / Orientation: awake, alert, oriented to person and oriented to place Speech: speech normal Psych affect normal Assessment & Plan Assessment/Plan (1) Sepsis: PLAN: Plan 1. Sepsis secondary to acute cystitis-organism unknown at this time, continue ceftriaxone, monitor CBC as needed I will change him to oral antibiotics #2 acute cystitis-organism unknown-continue ceftriaxone, patient's urine culture was not obtained on admission #3 cerebrovascular disease with right hemiplegia-complicates care, medical course, recovery, and prognosis-PT and OT are seeing patient, family request that the patient be temporarily placed in a senior living facility for rehab services-patient agrees to this, patient remains on aspirin and a statin #4 encephalopathy secondary to #1-resolved at this time #5 essential hypertension-patient will remain on his present medication, blood pressure will be monitored and adjustments will be made in his medicine as needed #6 hyperlipidemia-patient is on atorvastatin #7 paroxysmal [id number] is on Xarelto, he is on no rate limiting meds Total clinical time spent by myself addressing the patient's medical issues, reviewing all of his data, and collaborating with patient's care team: 35 minutes Charges/Coding Visit Charges Inpatient E&M: 92583 Subs Hosp L2
[2023-03-26] MEDS: Rivaroxaban 20 MG Tablet PO (17:51)
[2023-03-26 22:00] VITALS: BP 122/79; PULSE 76; RESP 20; TEMP 36.8; O2SAT 98
[2023-03-26] MEDS: Ceftriaxone 1 GM/50 ML BAG IV (22:24)
[2023-03-26] MEDS: Atorvastatin Calcium 40 MG Tablet PO (22:25)
[2023-03-26] MEDS: 0.9% Saline Lock 10 ML Syringe IV (22:45)
[2023-03-27 04:00] VITALS: BP 128/74; PULSE 73; RESP 19; TEMP 36.7; O2SAT 97
[2023-03-27] MEDS: oxyCODONE 5 MG Tablet PO ×2 (05:19→11:33)
[2023-03-27] MEDS: Nystatin Powder 15gm Bottle 1 APPLIC TOPICAL ×3 (05:21→22:16)
[2023-03-27 06:12] LABS: Absolute Lymphocyte Count 1.28 X10^3/uL (0.83-4.51); Absolute Neutrophil Count 6.9 X10^3/uL (2.0-7.7); Basophil# 0.06 X10^3/uL; Basophil% 0.6 % (0-1); Eosinophil# 0.67 X10^3/uL; Eosinophils% 6.7 % (0-5); Hematocrit 40.7 % (40-54); Hemoglobin 13.4 g/dL (13.0-16.5); Lymphocyte # 1.28 X10^3/ul (0.83-4.51); Lymphocyte % 12.8 % (19-41); Mean Corp Hgb Conc 32.9 g/dL (32-36); Mean Corpuscular Hgb 30.9 pg (27.0-32.0); Mean Corpuscular Volume 93.8 fL (80-94); Mean Platelet Vol. 10.4 fl (6.2-12.0); Monocyte# 1.05 X10^3/uL; Monocyte% 10.5 % (0-10); NRBC Flagged by Analyzer 0 % (0-5); Neutrophil # 6.88 X10^3/uL (2.7-7.7); Neutrophil % 68.9 % (47-70); Platelet Count 196 K/mm3 (150-450); RBC Distribution Width SD 48.7 fl (35.1-43.9); Red Blood Count 4.34 M/mm3 (4.6-6.2)
[2023-03-27 06:51] LABS: Anion Gap 4 (5-15); BUN 15 mg/dL (7-18); BUN/Creat Ratio 17.6 RATIO (10-20); Calcium,Total 8.5 mg/dL (8.5-10.1); Chloride 106 mmol/L (98-107); Creatinine, Serum 0.85 mg/dL (0.70-1.30); EST Glomerular Filtration Rate 93 mL/min (>60); Est Glom Filt Rate - Afr Amer 113 mL/min (>60); Estimated Creatinine Clearance 69.85 ml/min; Glucose 100 mg/dL (74-106); Potassium 3.3 mmol/L (3.5-5.1); Sodium Level 137 mmol/L (136-145)
[2023-03-27 09:30] VITALS: BP 118/67; PULSE 83; RESP 14; TEMP 36.6; O2SAT 97
[2023-03-27] MEDS: Aspirin 81 MG TAB.CHEW PO (09:32)
[2023-03-27] MEDS: amLODIPine 10 MG Tablet PO (09:32)
[2023-03-27] MEDS: Losartan Potassium 100 MG Tablet PO (09:32)
[2023-03-27] MEDS: Potassium Chloride Oral Tablet 20 MEQ PO ×2 (09:32→18:26)
[2023-03-27] MEDS: Gabapentin 100 MG Capsule PO ×3 (09:35→18:26)
[2023-03-27] MEDS: Cephalexin 500 MG Capsule PO ×3 (09:37→22:16)
--- NOTE | 2023-03-27 09:37 | CASEMGMT ---
SW spoke with patient to see if he and his son decided on any facilities. Patient said he does not think they are on the list. Patient's son wanted to go look at them first. Patient thinks the one is [facility] and the other maybe [facility]. Batsheva ANTUNEZ
--- NOTE | 2023-03-27 13:17 | CASEMGMT ---
Patient's son Naeem told the physician he called insurance and insurance said [facility] is in network. Naeem also called [facility] and they told him that they are in network. JESSIE asked Mary d/c strategic planning manager to check with [facility]. [facility] told Mary they are not in network with patient's particular plan. SW called Naeem and let him know this information. Naeem said that after he spoke with the physician today [facility] business office called him and said they are in network. JESSIE told Naeem ROMAN is not sure. Naeem said he was going to go look at [facility] after work. Naeem also said patient will have to pay $200 per day and he was told patient's SNF stay would be covered. SW explained that patient is in his co-pay days so he will have a charge. Naeem said if patient is at his max out of pocket he shouldn't have to pay anything. JESSIE told Naeem that is correct, but SW does not know if he is at his max out of pocket. Naeem is going to look at [facility] and talk with patient this evening about what he wants to do. Physician also called Naeem and spoke with him about placement options. Batsheva ANTUNEZ
--- NOTE | 2023-03-27 13:53 | PCM.PN.HOSP ---
Reason for Visit Reason for Visit: Diagnoses Infectious gastroenteritis and colitis, unspecified (03/23/23) Sepsis, unspecified organism (03/23/23) Hypokalemia (03/23/23) Encephalopathy, unspecified (03/23/23) Essential (primary) hypertension (03/23/23) Cellulitis of unspecified part of limb (03/23/23) Urinary tract infection, site not specified (03/23/23) Adult failure to thrive (03/23/23) Subjective Subjective Patient was seen and examined today, I talked at length with his son, they are trying to locate a skilled nursing for the patient to go to for rehab services. I decided to transition the patient over to oral antibiotics at this time, there was a urine specimen collected last night because it was outstanding-I asked the lab to cancel this order because I do not feel that this urine sample will be helpful in treating the patient. Objective Data Objective Data Vital Signs: Vital Signs Temp Pulse Resp BP Pulse Ox O2 Del Method 97.9 F 83 14 118/67 97 Room Air 03/27/23 09:30 03/27/23 09:30 03/27/23 09:30 03/27/23 09:30 03/27/23 09:30 03/27/23 09:30 Oxygen Delivery Method Room Air Weight: 116.9 kg Body Mass Index (BMI) 41.5 Intake & Output: Intake and Output for Last 24 Hours 03/25/23 03/26/23 03/27/23 23:59 23:59 23:59 Intake Total 496.67 / 496.67 1130 / 1150 615 / 615 Output Total 1000 / 2150 2800 / 3000 1200 / 1200 Balance -503.33 / -1653.33 -1670 / -1850 -585 / -585 Lab / Micro Data 03/27/23 05:10 03/27/23 05:10 Labs: Laboratory Results - last 24 hr 03/27/23 05:10: WBC 10.0, RBC 4.34 L, Hgb 13.4, Hct 40.7, MCV 93.8, MCH 30.9, MCHC 32.9, RDW Std Deviation 48.7 H, RDW Coeff of Naz 14.0, Plt Count 196, MPV 10.4, Immature Gran % (Auto) 0.500, Neut % (Auto) 68.9, Lymph % (Auto) 12.8 L, [place] % (Auto) 10.5 H, Eos % (Auto) 6.7 H, Baso % (Auto) 0.6, Absolute Neuts (auto) 6.9, Absolute Lymphs (auto) 1.28, Nucleated RBC % 0, Sodium 137, Potassium 3.3 L, Chloride 106, Carbon Dioxide 27.0, Anion Gap 4 L, BUN 15, Creatinine 0.85, Estim Creat Clear Calc 69.85, Est GFR (MDRD) Af Amer 113, Est GFR (MDRD) Non-Af 93, BUN/Creatinine Ratio 17.6, Glucose 100, Calcium 8.5 Micro: Microbiology 03/26/23 04:10 Stool Enteric Bacteriology - Final 03/23/23 21:08 Blood Culture (Wb) - Arm Left Blood Culture - Preliminary No growth in 48 hours. 03/23/23 20:46 Blood Culture (Wb) - Arm Left Blood Culture - Preliminary No growth in 48 hours. 03/24/23 21:15 Stool C. difficile DNA Amplification - Final 03/23/23 20:46 Nasal Secretion SARS-CoV-2 & FLU Antigen (Rapid) - Final Physical Exam Narrative alert and no apparent distress Constitutional Narrative: Patient is morbidly obese General Appearance: cooperative, well kempt and well developed Orientation / Consciousness: awake, oriented to person and oriented to place HEENT normocephalic, head/scalp atraumatic and moist oral mucous membranes Eyes PERRL, EOMs intact bilaterally and conjunctivae normal Neck supple, no JVD, thyroid normal and no carotid bruits General: trachea midline Resp normal respiratory effort, no retractions, no use of accessory muscles and clear to auscultation bilaterally Auscultation: Negative for rales, rhonchi or wheezes Cardio regular rate, regular rhythm, S1 normal heart sound, S2 normal heart sound, no murmurs, no rub and no gallops GI normal to inspection, nondistended, normoactive bowel sounds, soft to palpation, non-tender and non-distended Extremity no clubbing, cyanosis or edema Skin no rashes or lesions noted General Skin Exam: no breakdown Neuro CN's II-XII intact bilaterally Neuro Narrative: Patient has right hemiplegia Sensorium / Orientation: awake, alert, oriented to person and oriented to place Speech: speech normal Psych affect normal Assessment & Plan Assessment/Plan (1) Sepsis: PLAN: Plan 1. Sepsis secondary to acute cystitis-organism unknown at this time, patient was switched to p.o. Keflex today #2 acute cystitis-organism unknown-continue p.o. Keflex, patient's urine culture was not obtained on admission #3 cerebrovascular disease with right hemiplegia-complicates care, medical course, recovery, and prognosis-PT and OT are seeing patient, family request that the patient be temporarily placed in a alf facility for rehab services-patient agrees to this, patient remains on aspirin and a statin #4 encephalopathy secondary to #1-resolved at this time #5 essential hypertension-patient will remain on his present medication, blood pressure will be monitored and adjustments will be made in his medicine as needed #6 hyperlipidemia-patient is on atorvastatin #7 paroxysmal [id number] is on Xarelto, he is on no rate limiting meds Total clinical time spent by myself addressing the patient's medical issues, reviewing all of his data, and collaborating with patient's care team: 25 minutes Charges/Coding Visit Charges Inpatient E&M: 84485 [facility] Hosp L1
[2023-03-27 15:14] VITALS: BP 111/78; PULSE 66; RESP 16; TEMP 36.6; O2SAT 99
[2023-03-27] MEDS: Rivaroxaban 20 MG Tablet PO (18:25)
[2023-03-27] MEDS: Potassium Chloride Oral Tablet 20 MEQ 40 MEQ PO (18:26)
[2023-03-27 21:18] VITALS: BP 108/73; PULSE 64; RESP 16; TEMP 36.7; O2SAT 98
[2023-03-27] MEDS: Atorvastatin Calcium 40 MG Tablet PO (22:16)
[2023-03-28 03:18] VITALS: BP 102/67; PULSE 71; RESP 17; TEMP 37.1; O2SAT 98
[2023-03-28] MEDS: Nystatin Powder 15gm Bottle 1 APPLIC TOPICAL ×3 (06:47→21:41)
[2023-03-28] MEDS: Cephalexin 500 MG Capsule PO ×3 (06:47→21:41)
[2023-03-28 08:16] VITALS: BP 116/65; PULSE 70; RESP 15; TEMP 36.6; O2SAT 98
[2023-03-28] MEDS: Potassium Chloride Oral Tablet 20 MEQ PO ×2 (08:19→17:02)
[2023-03-28] MEDS: amLODIPine 10 MG Tablet PO (08:19)
[2023-03-28] MEDS: Losartan Potassium 100 MG Tablet PO (08:20)
[2023-03-28] MEDS: Aspirin 81 MG TAB.CHEW PO (08:20)
[2023-03-28] MEDS: Gabapentin 100 MG Capsule PO ×3 (08:23→17:03)
[2023-03-28 14:15] VITALS: BP 122/90; PULSE 75; RESP 17; TEMP 36.9; O2SAT 99
--- NOTE | 2023-03-28 15:43 | CASEMGMT ---
Patient was approved for TCU. A bed will be available tomorrow 03-29-23. Batsheva ANTUNEZ
[2023-03-28] MEDS: Rivaroxaban 20 MG Tablet PO (17:02)
[2023-03-28] MEDS: oxyCODONE 5 MG Tablet PO (17:07)
--- NOTE | 2023-03-28 17:11 | PCM.PN.HOSP ---
Reason for Visit Reason for Visit: Diagnoses Infectious gastroenteritis and colitis, unspecified (03/23/23) Sepsis, unspecified organism (03/23/23) Hypokalemia (03/23/23) Encephalopathy, unspecified (03/23/23) Essential (primary) hypertension (03/23/23) Cellulitis of unspecified part of limb (03/23/23) Urinary tract infection, site not specified (03/23/23) Adult failure to thrive (03/23/23) Subjective Subjective Patient was seen and examined today, patient's son has decided to try to get the patient into TCU for short-term rehab services, we are awaiting insurance approval at this time. Objective Data Objective Data Vital Signs: Vital Signs Temp Pulse Resp BP Pulse Ox O2 Del Method 98.4 F 75 17 122/90 H 99 Room Air 03/28/23 14:15 03/28/23 14:15 03/28/23 14:15 03/28/23 14:15 03/28/23 14:15 03/28/23 14:15 Oxygen Delivery Method Room Air Weight: 116.9 kg Body Mass Index (BMI) 41.5 Intake & Output: Intake and Output for Last 24 Hours 03/26/23 03/27/23 03/28/23 23:59 23:59 23:59 Intake Total 1130 / 1150 1165 / 1165 0 / 0 Output Total 2800 / 3000 1950 / 1950 0 / 0 Balance -1670 / -1850 -785 / -785 0 / 0 Lab / Micro Data 03/27/23 05:10 03/27/23 05:10 Micro: Microbiology 03/26/23 04:10 Stool Enteric Bacteriology - Final 03/23/23 21:08 Blood Culture (Wb) - Arm Left Blood Culture - Preliminary No growth in 48 hours. 03/23/23 20:46 Blood Culture (Wb) - Arm Left Blood Culture - Preliminary No growth in 48 hours. 03/24/23 21:15 Stool C. difficile DNA Amplification - Final 03/23/23 20:46 Nasal Secretion SARS-CoV-2 & FLU Antigen (Rapid) - Final Physical Exam Narrative alert and no apparent distress Constitutional Narrative: Patient is morbidly obese General Appearance: cooperative, well kempt and well developed Orientation / Consciousness: awake, oriented to person and oriented to place HEENT normocephalic, head/scalp atraumatic and moist oral mucous membranes Eyes PERRL, EOMs intact bilaterally and conjunctivae normal Neck supple, no JVD, thyroid normal and no carotid bruits General: trachea midline Resp normal respiratory effort, no retractions, no use of accessory muscles and clear to auscultation bilaterally Auscultation: Negative for rales, rhonchi or wheezes Cardio regular rate, regular rhythm, S1 normal heart sound, S2 normal heart sound, no murmurs, no rub and no gallops GI normal to inspection, nondistended, normoactive bowel sounds, soft to palpation, non-tender and non-distended Extremity no clubbing, cyanosis or edema Skin no rashes or lesions noted General Skin Exam: no breakdown Neuro CN's II-XII intact bilaterally Neuro Narrative: Patient has right hemiplegia Sensorium / Orientation: awake, alert, oriented to person and oriented to place Speech: speech normal Psych affect normal Assessment & Plan Assessment/Plan (1) Encephalopathy acute: (2) Sepsis: PLAN: Plan 1. Sepsis secondary to acute cystitis-organism unknown at this time, patient will remain on Keflex #2 acute cystitis-organism unknown-continue p.o. Keflex, patient's urine culture was not obtained on admission #3 cerebrovascular disease with right hemiplegia-complicates care, medical course, recovery, and prognosis-PT and OT are seeing patient, family request that the patient be temporarily placed in a fpc facility for rehab services-patient agrees to this, patient remains on aspirin and a statin #4 encephalopathy secondary to #1-resolved at this time #5 essential hypertension-patient will remain on his present medication, blood pressure will be monitored and adjustments will be made in his medicine as needed #6 hyperlipidemia-patient is on atorvastatin #7 paroxysmal [id number] is on Xarelto, he is on no rate limiting meds Total clinical time spent by myself addressing the patient's medical issues, reviewing all of his data, and collaborating with patient's care team: 25 minutes Charges/Coding Visit Charges Inpatient E&M: 81758 [facility] Hosp L1
[2023-03-28 20:00] VITALS: BP 103/75; PULSE 78; RESP 16; TEMP 36.7; O2SAT 96
[2023-03-28] MEDS: Atorvastatin Calcium 40 MG Tablet PO (21:41)
[2023-03-29 02:00] VITALS: BP 107/74; PULSE 68; RESP 16; TEMP 36.9; O2SAT 96
[2023-03-29] MEDS: Acetaminophen 325 MG Tablet 650 MG PO (05:34)
[2023-03-29] MEDS: Nystatin Powder 15gm Bottle 1 APPLIC TOPICAL (05:34)
[2023-03-29] MEDS: Cephalexin 500 MG Capsule PO (05:36)
[2023-03-29 08:00] VITALS: BP 134/80; PULSE 77; RESP 16; TEMP 37.7; O2SAT 98
--- NOTE | 2023-03-29 08:14 | PCM.TXEXTCAR ---
Diet Diet Order/Speech Therapy: 03/23/23 23:17 Diet: Cardiac - Heart Healthy Food consistency:: Regular Liquid Consistency:: Regular/Thin Is pt able to select menu?: Yes Routine Orders/Code Status Routine Lab Work: BMP (on 03/30/23) Code Status: Full Code Therapies Weight Bearing: Full weight bearing Physical Therapy: Eval and Treat Occupational Therapy: Eval and Treat Problem/Diagnosis (1) Encephalopathy acute: Status: Acute Code(s): G93.40 - Encephalopathy, unspecified (2) Sepsis: Status: Acute Code(s): A41.9 - Sepsis, unspecified organism (3) Cervical disc disease: Status: Acute Code(s): M50.90 - Cervical disc disorder, unspecified, unspecified cervical region Plan 1. Sepsis secondary to acute cystitis-organism unknown at this time, patient will remain on Keflex to complete a 10-day course of antibiotics #2 acute cystitis-organism unknown-continue p.o. Keflex, patient's urine culture was not obtained on admission #3 cerebrovascular disease with right hemiplegia-complicates care, medical course, recovery, and prognosis-PT and OT are seeing patient, family request that the patient be temporarily placed in a senior care facility for rehab services-patient agrees to this, patient remains on aspirin and a statin #4 encephalopathy secondary to #1-resolved at this time #5 essential hypertension-patient will remain on his present medication, blood pressure will be monitored and adjustments will be made in his medicine as needed #6 hyperlipidemia-patient is on atorvastatin #7 paroxysmal [id number] is on Xarelto, he is on no rate limiting meds #8 hypokalemia-patient will remain on oral potassium, BMP will need to be rechecked at the extended care facility Total clinical time spent by myself addressing the patient's medical issues, reviewing all of his data, and collaborating with patient's care team: 25 minutes Allergies/Procedures Done in Hospital Allergies ibuprofen [From Motrin] Adverse Reaction (Verified 03/23/23 19:20) Nausea Procedures: None Type of Care/Length of Stay Estimated LOS: Convalescent Care Less Than 30 days Type of Care Needed: Skilled Rehab Potential: Good Prognosis: Good Additional Orders/Day of Discharge H&P will serve as current which was dated: 03/23/23 Day of Discharge: 03/29/23 Dietary and Speech Recommendations Dietitian Recommendations/Changes: Continue Cardiac diet to manage medical conditions. Discharge Plan Admission Admit Date/Time: 03/23/23 22:50 Primary Reason for Your Visit: sepsis Attending Provider: Hany Portillo Primary Care Provider: Shanda Jensen NP Consulting Providers: Ann Cage; Bari Carpio Discharge Orders/Prescriptions Prescriptions: New oxycodone 5 mg Tablet 5 mg PO Q6H PRN PRN (Reason: Pain Score 6-10) 2 Days Qty: 6 0RF acetaminophen 325 mg Tablet 650 mg PO Q6H PRN PRN (Reason: Pain Score 1-5/Temp) Qty: 0 0RF potassium chloride [Klor-Con M20] 20 mEq Tablet,Er Particles/Crystals 20 meq PO BIDCM Qty: 0 0RF cephalexin 500 mg Capsule 500 mg PO Q8 Qty: 11 0RF Rx Instructions: Give 11 doses starting the afternoon of 03/29/2023-2 doses to be given on 03/29/2023 nystatin [Nyamyc] 100,000 unit/gram Powder 1 applic topical TID Qty: 0 0RF Protocol: *Topical Application Instructions APPLICATION INSTRUCTIONS: to folds Continued Xarelto 20 mg Tablet 20 mg PO DINNER Qty: 0 0RF aspirin 81 mg Tablet,Chewable 81 mg PO BREAKFAST Qty: 0 0RF acetaminophen 500 mg Tablet 1,000 mg PO Q8 Qty: 0 0RF atorvastatin 40 mg Tablet 40 mg PO QHS 30 Days Qty: 30 0RF amlodipine 10 mg Tablet 10 mg PO DAILY 30 Days Qty: 30 0RF losartan 100 mg Tablet 100 mg PO DAILY 30 Days Qty: 30 0RF gabapentin 100 mg Capsule 100 mg PO TIDCM 30 Days Qty: 90 0RF No Action oxycodone 5 mg Tablet 5 mg PO Q6H PRN PRN (Reason: Pain Score 6-10) 3 Days Qty: 12 0RF Referrals / Follow Up: Shanda Jensen NP, SOFTWARE DEVELOPER CONSULTANT-C [Primary Care Provider] - Disposition Disposition (needs filled in before D/C Order can be placed): Intermediate Facility
--- NOTE | 2023-03-29 08:22 | PCM.DC.SUM ---
Providers Date of Admission: 03/23/23 Date of Discharge: 03/29/23 Primary Care Physician: Shanda Jensen, JAVIER Reason For Visit: UROSEPSIS Diagnosis Discharge Diagnosis (1) Encephalopathy acute: Status: Acute Code(s): G93.40 - Encephalopathy, unspecified (2) Sepsis: Status: Acute Code(s): A41.9 - Sepsis, unspecified organism (3) Cervical disc disease: Status: Acute Code(s): M50.90 - Cervical disc disorder, unspecified, unspecified cervical region Plan 1. Sepsis secondary to acute cystitis-organism unknown at this time, patient will remain on Keflex to complete a 10-day course of antibiotics #2 acute cystitis-organism unknown-continue p.o. Keflex, patient's urine culture was not obtained on admission #3 cerebrovascular disease with right hemiplegia-complicates care, medical course, recovery, and prognosis-PT and OT are seeing patient, family request that the patient be temporarily placed in a long-term facility for rehab services-patient agrees to this, patient remains on aspirin and a statin #4 encephalopathy secondary to #1-resolved at this time #5 essential hypertension-patient will remain on his present medication, blood pressure will be monitored and adjustments will be made in his medicine as needed #6 hyperlipidemia-patient is on atorvastatin #7 paroxysmal I-lgp-jnklhoi is on Xarelto, he is on no rate limiting meds #8 hypokalemia-patient will remain on oral potassium, BMP will need to be rechecked at the [facility] care facility Total clinical time spent by myself addressing the patient's medical issues, reviewing all of his data, and collaborating with patient's care team: 25 minutes Medications at Discharge Home Medications rivaroxaban 20 mg tablet (Xarelto) 20 mg PO DINNER BLOOD THINNER #0 tabs 12/28/21 aspirin 81 mg chewable tablet 81 mg PO BREAKFAST blood thinner #0 tabs 01/31/23 acetaminophen 500 mg tablet 1,000 mg (2 x 500 mg) PO Q8 pain/fever #0 tabs 02/15/23 amlodipine 10 mg tablet 10 mg PO DAILY blood pressure 30 days #30 tabs 03/15/23 atorvastatin 40 mg tablet 40 mg PO QHS cholesterol 30 days #30 tabs 03/15/23 losartan 100 mg tablet 100 mg PO DAILY blood pressure 30 days #30 tabs 03/15/23 gabapentin 100 mg capsule 100 mg PO TIDCM nerve pain 30 days #90 caps 03/16/23 oxycodone 5 mg tablet 5 mg PO Q6H PRN PRN Pain Score 6-10 3 days #12 tabs 03/18/23 acetaminophen 325 mg tablet 650 mg (2 x 325 mg) PO Q6H PRN PRN Pain Score 1-5/Temp #0 tabs 03/29/23 cephalexin 500 mg capsule 500 mg PO Q8 antibiotic #11 caps 03/29/23 nystatin 100,000 unit/gram topical powder (Nyamyc) 1 applic topical TID fungal #0 grams 03/29/23 potassium chloride 20 mEq tablet,extended release(part/cryst) (Klor-Con M) 20 meq PO BIDCM potassium #0 tabs 03/29/23 Hospital Course Operations None Procedures None Summary of Care Provided Minutes Spent on Discharge: 33 Hospital Course: 72-year-old white male was seen in the emergency room at [facility] with altered mental status, he has chronic residual effects from the previous stroke with right-sided hemiplegia, he lives with the son who found the patient confused. Work-up in the emergency room showed an elevated white blood cell count at 17.2, CT of the brain demonstrated no acute hemorrhage, chest x-ray showed no acute process. Creatinine was 1.31 and BUN was 18, lactic acid was elevated at 2.2, urinalysis indicated a urinary tract infection. Patient was felt to be septic, unfortunately no urine culture was obtained, he received IV fluids and IV Rocephin, he was felt to be encephalopathic due to acute sepsis. Patient was admitted to PCU, IV antibiotics were continued, blood cultures were negative, patient was seen by PT and OT and it was felt he would benefit from short-term placement in a long-term facility for rehab services. On 03/29/2023, patient was seen and examined:alert and no apparent distress Constitutional Narrative: Patient is morbidly obese General Appearance: cooperative, well kempt and well developed Orientation / Consciousness: awake, oriented to person and oriented to place HEENT normocephalic, head/scalp atraumatic and moist oral mucous membranes Eyes PERRL, EOMs intact bilaterally and conjunctivae normal Neck supple, no JVD, thyroid normal and no carotid bruits General: trachea midline Resp normal respiratory effort, no retractions, no use of accessory muscles and clear to auscultation bilaterally Auscultation: Negative for rales, rhonchi or wheezes Cardio regular rate, regular rhythm, S1 normal heart sound, S2 normal heart sound, no murmurs, no rub and no gallops GI normal to inspection, nondistended, normoactive bowel sounds, soft to palpation, non-tender and non-distended Extremity no clubbing, cyanosis or edema Skin no rashes or lesions noted General Skin Exam: no breakdown Neuro CN's II-XII intact bilaterally Neuro Narrative: Patient has right hemiplegia Sensorium / Orientation: awake, alert, oriented to person and oriented to place Speech: speech normal Psych affect normal Patient was discharged to TCU for short-term inpatient rehab services on 03/29/2023 in good condition Weight / BMI Weight Weight: 116.9 kg Body Mass Index (BMI) 41.5 ABG / Lab / Microbiology Data 03/27/23 05:10 03/27/23 05:10 Microbiology: Microbiology 03/23/23 20:46 Blood Culture (Wb) - Arm Left Blood Culture - Final No growth in 5 days. 03/23/23 21:08 Blood Culture (Wb) - Arm Left Blood Culture - Final No growth in 5 days. 03/26/23 04:10 Stool Enteric Bacteriology - Final 03/24/23 21:15 Stool C. difficile DNA Amplification - Final 03/23/23 20:46 Nasal Secretion SARS-CoV-2 & FLU Antigen (Rapid) - Final Meaningful Use Info Meaningful Use Diagnoses (Choose all that apply): None applicable Discharge Plan Admission Admit Date/Time: 03/23/23 22:50 Primary Reason for Your Visit: sepsis Attending Provider: Hany Portillo Primary Care Provider: Shanda Jensen NP Consulting Providers: Ann Cage; aBri Carpio Discharge Orders/Prescriptions Prescriptions: New acetaminophen 325 mg Tablet 650 mg PO Q6H PRN PRN (Reason: Pain Score 1-5/Temp) Qty: 0 0RF potassium chloride [Klor-Con M20] 20 mEq Tablet,Er Particles/Crystals 20 meq PO BIDCM Qty: 0 0RF cephalexin 500 mg Capsule 500 mg PO Q8 Qty: 11 0RF Rx Instructions: Give 11 doses starting the afternoon of 03/29/2023-2 doses to be given on 03/29/2023 nystatin [Nyamyc] 100,000 unit/gram Powder 1 applic topical TID Qty: 0 0RF Protocol: *Topical Application Instructions APPLICATION INSTRUCTIONS: to folds Continued Xarelto 20 mg Tablet 20 mg PO DINNER Qty: 0 0RF aspirin 81 mg Tablet,Chewable 81 mg PO BREAKFAST Qty: 0 0RF acetaminophen 500 mg Tablet 1,000 mg PO Q8 Qty: 0 0RF atorvastatin 40 mg Tablet 40 mg PO QHS 30 Days Qty: 30 0RF amlodipine 10 mg Tablet 10 mg PO DAILY 30 Days Qty: 30 0RF losartan 100 mg Tablet 100 mg PO DAILY 30 Days Qty: 30 0RF gabapentin 100 mg Capsule 100 mg PO TIDCM 30 Days Qty: 90 0RF No Action oxycodone 5 mg Tablet 5 mg PO Q6H PRN PRN (Reason: Pain Score 6-10) 3 Days Qty: 12 0RF Referrals / Follow Up: Shanda Jensen NP, TREE CUTTER-C [Primary Care Provider] - Disposition Disposition (needs filled in before D/C Order can be placed): Custodial Facility Charges/Coding Visit Charges Inpatient E&M: 76078 Disch Hosp >30min
[2023-03-29] MEDS: Losartan Potassium 100 MG Tablet PO (09:16)
[2023-03-29] MEDS: Potassium Chloride Oral Tablet 20 MEQ PO (09:16)
[2023-03-29] MEDS: amLODIPine 10 MG Tablet PO (09:16)
[2023-03-29] MEDS: Aspirin 81 MG TAB.CHEW PO (09:16)
[2023-03-29] MEDS: Gabapentin 100 MG Capsule PO ×2 (09:16→11:41)
--- NOTE | 2023-03-29 10:14 | PHA.DC_ITS ---
Pharmacy [place] Med Reconciliation Pharmacy Service has performed discharge medication reconciliation for this patient upon transfer to TCU The patient's discharge medication list was reviewed for discrepancies and discrepancies were resolved. Medications at Discharge Home Medications rivaroxaban 20 mg tablet (Xarelto) 20 mg PO DINNER BLOOD THINNER #0 tabs 12/28/21 aspirin 81 mg chewable tablet 81 mg PO BREAKFAST blood thinner #0 tabs 01/31/23 acetaminophen 500 mg tablet 1,000 mg (2 x 500 mg) PO Q8 pain/fever #0 tabs 02/15/23 amlodipine 10 mg tablet 10 mg PO DAILY blood pressure 30 days #30 tabs 03/15/23 atorvastatin 40 mg tablet 40 mg PO QHS cholesterol 30 days #30 tabs 03/15/23 losartan 100 mg tablet 100 mg PO DAILY blood pressure 30 days #30 tabs 03/15/23 gabapentin 100 mg capsule 100 mg PO TIDCM nerve pain 30 days #90 caps 03/16/23 oxycodone 5 mg tablet 5 mg PO Q6H PRN PRN Pain Score 6-10 3 days #12 tabs 03/18/23 acetaminophen 325 mg tablet 650 mg (2 x 325 mg) PO Q6H PRN PRN Pain Score 1- 5/Temp #0 tabs 03/29/23 cephalexin 500 mg capsule 500 mg PO Q8 #11 caps 03/29/23 nystatin 100,000 unit/gram topical powder (Nyamyc) 1 applic topical TID #0 grams 03/29/23 oxycodone 5 mg tablet 5 mg PO Q6H PRN PRN Pain Score 6-10 2 days #6 tabs 03/29/23 potassium chloride 20 mEq tablet,extended release(part/cryst) (Klor-Con M) 20 meq PO BIDCM #0 tabs 03/29/23
[2023-03-29 11:48] VITALS: BP 114/67; PULSE 80; RESP 17; TEMP 36.6; O2SAT 98
--- NOTE | 2023-03-29 12:07 | CASEMGMT ---
Patient is ready for discharge to [facility] TCU. SW called patient's son and let him know patient was approved and will go to TCU today. Plan: d/c to [facility] TCU under skilled level of care. Batsheva ANTUNEZ
== END 2023-03-29 13:14 | disposition skilled nursing facility (03) | DRG 871 ==
LOC: ED 22:15 → PCU 22:52
PROVIDERS: Internal Medicine; Admitting Provider Internal Medicine; Emergency Provider Emergency Medicine; PCP Nurse Practitioner Family; Visit Provider Internal Medicine
DX: A41.9 Sepsis, unspecified organism (principal); G93.41 Metabolic encephalopathy; G81.91 Hemiplegia, unspecified affecting right dominant side; I48.20 Chronic atrial fibrillation, unspecified; Z68.41 Body mass index [BMI] 40.0-44.9, adult; A09 Infectious gastroenteritis and colitis, unspecified; N30.01 Acute cystitis with hematuria; E66.01 Morbid (severe) obesity due to excess calories; I69.322 Dysarthria following cerebral infarction; I10 Essential (primary) hypertension; G47.33 Obstructive sleep apnea (adult) (pediatric); I25.10 Atherosclerotic heart disease of native coronary artery without angina pectoris; E87.6 Hypokalemia; I87.8 Other specified disorders of veins; E78.5 Hyperlipidemia, unspecified; M50.80 Other cervical disc disorders, unspecified cervical region; R62.7 Adult failure to thrive; Z95.5 Presence of coronary angioplasty implant and graft; Z87.891 Personal history of nicotine dependence; Z86.718 Personal history of other venous thrombosis and embolism
CPT/HCPCS: 36415; 70450; 71045; 80048; 80053; 80076; 81001; 83605; 83735; 83880; 84100; 84443; 84484; 85025; 85610; 85730; 87040; 87086; 87428; 87493; 87506; 93005; 97110; 97163; 97166; 97530; 97535; 99285; J7030; J7050; J7120; A4216

== ENCOUNTER 2023-03-29 13:22 | Inpatient (IN) | payer MEDICARE, SELFPAY ==
[2023-03-29 13:32] VITALS: BP 116/70; PULSE 51; RESP 14; RESP 18; TEMP 36.9; O2SAT 100; BMI 39.8
[2023-03-29 13:38] VITALS: BMI 39.7
[2023-03-29] MEDS: Cephalexin 500 MG Capsule PO ×2 (15:00→20:49)
[2023-03-29] MEDS: Nystatin Powder 15gm Bottle 1 APPLIC TOPICAL ×2 (15:00→20:50)
[2023-03-29] MEDS: Acetaminophen 500 MG Tablet 1000 MG PO ×2 (15:00→20:49)
[2023-03-29] MEDS: Gabapentin 100 MG Capsule PO (17:38)
[2023-03-29] MEDS: Potassium Chloride Oral Tablet 20 MEQ PO (17:38)
[2023-03-29] MEDS: Rivaroxaban 20 MG Tablet PO (17:38)
--- NOTE | 2023-03-29 20:11 | HP.PCM_ITS ---
HPI - General General Date of Admission: 03/29/23 Date of Service: 03/29/23 Chief Complaint: Here for rehabilitation. HPI Narrative 03/23/2023 TURNER YAN, is a 72 Male who presents to [facility] ED with weakness. Change mental status, dysarthria, stool incontinence, urine incontinence. Bilateral lower extremity swelling, Chest X-ray okay, CT brain okay. INR 1.6, Creatinine 1.31, K 3.0, Lactate 2.2. Urinalysis consistent with urinary tract infection, Rocephin given, urine culture sent, blood culture sent. IV fluids given. 03/23/2023 Admit to [facility]. Rocephin IV for urinary tract infection, urine culture pending, blood culture pending. Encephalopathy improved with IV fluids, IV Rocephin. PT/OT SNF. Replace potassium. Check stool for c. diff for diarrhea. 03/24/2023 PT/OT for SNF. 03/25/2023 C. diff negative, diarrhea persists. Encephalopathy resolved. Rocephin IV for urinary tract infection, urine culture pending. 03/26/2023 Enteric panel negative. Urine culture not done. Change Rocephin IV to oral antibiotic for urinary tract infection. 03/27/2023 Keflex PO for urinary tract infection. 03/28/2023 PT/OT for TCU. 03/29/2023 Admit to TCU with debility, here for rehabilitation, strengthening, prior to discharge home with son. [facility] Medical History (Updated 03/29/23 @ 20:[address] Low Zheng MD) Anomalous origin of coronary artery Anticoagulant long-term use Arthritis Atherosclerotic heart disease of [place] coronary artery without angina pectoris Atrial fibrillation Atrial fibrillation Benign neoplasm of middle ear, nasal cavity and accessory sinuses BPH (benign prostatic hyperplasia) Cardiac murmur, unspecified Cellulitis Cellulitis of right lower limb Cervical disc disease Chronic venous stasis dermatitis of both lower extremities CPAP (continuous positive airway pressure) dependence CVA (cerebral vascular accident) Debility Deep venous thrombosis Dyspnea on minimal exertion Essential (primary) hypertension Former smoker FTT (failure to thrive) in adult GERD (gastroesophageal reflux disease) Hemiplegia affecting right dominant side Hyperglycemia Hyperlipidemia Hypertension Leg pain Low back pain Lymphedema Lymphedema of both lower extremities New onset atrial fibrillation (03/24/20) 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 Obesity ANDREE (obstructive sleep apnea) Pain in right lower leg Pain of left great toe Pain of left lower extremity due to injury Pneumonia Rotator cuff tear arthropathy of right shoulder Skin ulcer of left great toe with fat layer exposed Sleep apnea Toe ulcer Traumatic hematoma of left lower leg Venous insufficiency Home Medications rivaroxaban 20 mg tablet (Xarelto) 20 mg PO DINNER BLOOD THINNER #0 tabs 12/28/21 [Rx Last Taken 02/25/23] aspirin 81 mg chewable tablet 81 mg PO BREAKFAST blood thinner #0 tabs 01/31/23 [Rx Last Taken 03/23/23] acetaminophen 500 mg tablet 1,000 mg (2 x 500 mg) PO Q8 pain/fever #0 tabs 02/15/23 [Rx Last Taken 03/23/23] amlodipine 10 mg tablet 10 mg PO DAILY blood pressure 30 days #30 tabs 03/15/23 [Rx Last Taken 03/23/23] atorvastatin 40 mg tablet 40 mg PO QHS cholesterol 30 days #30 tabs 03/15/23 [Rx Last Taken 03/22/23] losartan 100 mg tablet 100 mg PO DAILY blood pressure 30 days #30 tabs 03/15/23 [Rx Last Taken 03/23/23] gabapentin 100 mg capsule 100 mg PO TIDCM nerve pain 30 days #90 caps 03/16/23 [Rx Last Taken 03/23/23] oxycodone 5 mg tablet 5 mg PO Q6H PRN PRN Pain Score 6-10 3 days #12 tabs 03/18/23 [Rx Last Taken 03/23/23] acetaminophen 325 mg tablet 650 mg (2 x 325 mg) PO Q6H PRN PRN Pain Score 1- 5/Temp #0 tabs 03/29/23 [Rx Last Taken Unknown] cephalexin 500 mg capsule 500 mg PO Q8 antibiotic #11 caps 03/29/23 [Rx Last Taken Unknown] nystatin 100,000 unit/gram topical powder (Nyamyc) 1 applic topical TID fungal #0 grams 03/29/23 [Rx Last Taken Unknown] potassium chloride 20 mEq tablet,extended release(part/cryst) (Klor-Con M) 20 meq PO BIDCM potassium #0 tabs 03/29/23 [Rx Last Taken Unknown] Allergy/AdvReac Type Severity Reaction Status Date / Time ibuprofen [From Motrin] AdvReac Nausea Verified 03/23/23 19:20 Family History Mother CAD (coronary artery disease) Hypertension History of cardiac radiofrequency ablation Sister Hypertension Other Arthritis Surgical History H/O cervical spine surgery History of bursectomy History of carpal tunnel release History of carpal tunnel surgery History of coronary artery stent placement (11/29/10) History of coronary artery stent placement History of fusion of cervical spine History of herniorrhaphy History of removal of cyst History of transurethral resection of prostate Social History household members: other details: Older son Naeem. Smoking Status: Former smoker alcohol intake: never substance use type: does not use ROS Constitutional Constitutional: Denies chills, fever(s) or weight gain ENT HEENT: Denies headache(s), nasal congestion or nasal discharge Cardiovascular Cardiovascular: Denies chest pain or palpitations Respiratory/Chest Respiratory/Chest: Denies cough, excessive phlegm production or shortness of breath with exertion Gastrointestinal Gastrointestinal: Denies abdominal pain, nausea or vomiting Genitourinary Genitourinary: Denies dysuria Musculoskeletal Musculoskeletal: Denies joint pain or joint swelling Integumentary Integumentary: Denies rash or wounds Neurologic Neurologic: Denies focal weakness, numbness or tingling Psychiatric Psychiatric: Denies anxiety, auditory hallucinations, depression, homicidal ideation or suicidal ideation Vital Signs Vital Signs Vital Signs: 03/29/23 13:32 03/29/23 13:32 Temperature 98.5 F Temperature Source Oral Pulse Rate 51 L 51 L Pulse Rhythm Irregular Pulse Strength Normal (2+) Respiratory Rate 14 18 Respiratory Effort Normal Respiratory Depth Normal Respiratory Pattern Normal Blood Pressure 116/70 Blood Pressure Mean 85 Blood Pressure Source Monitor Blood Pressure Position Sitting Blood Pressure Location Left Arm Pulse Ox 100 100 Oxygen Delivery Method Room Air Room Air Weight Weight: 111.754 kg Body Mass Index (BMI) 39.7 Physical Exam Const alert General Appearance: cooperative HEENT normocephalic Eyes PERRL and EOMs intact bilaterally Neck supple, no JVD and no carotid bruits Resp normal respiratory effort, normal air movement and clear to auscultation bilaterally Cardio regular rate and regular rhythm GI normal to inspection, nondistended, normoactive bowel sounds, non-tender and non-distended Extremity normal capillary refill General Extremity: edema right Skin no rashes or lesions noted General Skin Exam: no breakdown Neuro Neuro Narrative: Right hemiplegia. Psych affect normal Appearance: appropriate Assessment & Plan Assessment/Plan (1) Sepsis: (2) Urinary tract infection: QUALIFIERS: Hematuria presence: without hematuria Urinary tract infection type: site unspecified Qualified Code(s): N39.0 - Urinary tract infection, site not specified (3) Encephalopathy acute: (4) Hypokalemia: (5) Hypertension: (6) CVA (cerebral vascular accident): QUALIFIERS: CVA mechanism: unspecified Qualified Code(s): I63.9 - Cerebral infarction, unspecified (7) Right hemiplegia: (8) Atrial fibrillation: (9) Neuropathic pain: PLAN: Plan 72 year old male with below past medical history hospitalized for sepsis, urinary tract infection, complicated by encephalopathy, hypokalemia, admitted to TCU with debility, here for rehabilitation, strengthening, prior to discharge home with son. * Debility - PT/OT. * Pain - Tylenol 1000mg q8, Oxycodone 5mg q6h prn * Bowel - senna/colace 1 tablet bid prn. * Adult immunization - Administer pneumonia vaccine, covid vaccine, flu vaccine as appropriate. * DVT prophylaxis - on Xarelto. * Hypertension - Losartan 100mg daily, Amlodipine 10mg daily. * Stroke - Aspirin 81mg daily, Xarelto 20mg daily, failed Xarelto alone. * Atrial Fibrillation - Xarelto 20mg daily. * Hyperlipidemia - Atorvastatin 40mg qhs. * Urinary tract infection - Keflex 500mg q8 thru 04/01/2023. * Neuropathic pain - Gabapentin 100mg tidcm. * Skin irritation - Calmoseptine topical bid. * Tinea Corporis - Nystatin powder topical tid. * Hypokalemia - KCL 20meq bidcm. * Right lower extremity edema - Doppler ultrasound right lower extremity to rule out DVT.
[2023-03-29] MEDS: Atorvastatin Calcium 40 MG Tablet PO (20:49)
[2023-03-29] MEDS: Menthol/Lanolin/Calamine/Znox 113 GM Tube 1 APPLIC TOPICAL (20:49)
[2023-03-30] MEDS: oxyCODONE 5 MG Tablet PO ×2 (02:21→20:45)
[2023-03-30] MEDS: Cephalexin 500 MG Capsule PO ×3 (05:10→20:41)
[2023-03-30] MEDS: Acetaminophen 500 MG Tablet 1000 MG PO ×3 (05:11→20:41)
[2023-03-30] MEDS: Nystatin Powder 15gm Bottle 1 APPLIC TOPICAL ×3 (05:11→20:48)
[2023-03-30 05:23] LABS: Absolute Lymphocyte Count 1.65 X10^3/uL (0.83-4.51); Absolute Neutrophil Count 5.4 X10^3/uL (2.0-7.7); Basophil# 0.03 X10^3/uL; Basophil% 0.4 % (0-1); Eosinophil# 0.59 X10^3/uL; Eosinophils% 6.9 % (0-5); Hematocrit 40.4 % (40-54); Hemoglobin 13.3 g/dL (13.0-16.5); Lymphocyte # 1.65 X10^3/ul (0.83-4.51); Lymphocyte % 19.4 % (19-41); Mean Corp Hgb Conc 32.9 g/dL (32-36); Mean Corpuscular Hgb 30.7 pg (27.0-32.0); Mean Corpuscular Volume 93.3 fL (80-94); Mean Platelet Vol. 9.3 fl (6.2-12.0); Monocyte# 0.73 X10^3/uL; Monocyte% 8.6 % (0-10); NRBC Flagged by Analyzer 0 % (0-5); Neutrophil # 5.38 X10^3/uL (2.7-7.7); Neutrophil % 63.4 % (47-70); Platelet Count 275 K/mm3 (150-450); RBC Distribution Width CV 14.2 % (11.6-14.6); RBC Distribution Width SD 48.8 fl (35.1-43.9); Red Blood Count 4.33 M/mm3 (4.6-6.2); White Blood Count 8.5 K/mm3 (4.4-11.0)
[2023-03-30 05:45] LABS: Anion Gap 7 (5-15); BUN 10 mg/dL (7-18); BUN/Creat Ratio 12.3 RATIO (10-20); Calcium,Total 8.5 mg/dL (8.5-10.1); Chloride 107 mmol/L (98-107); Creatinine, Serum 0.81 mg/dL (0.70-1.30); EST Glomerular Filtration Rate 99 mL/min (>60); Est Glom Filt Rate - Afr Amer 119 mL/min (>60); Glucose 96 mg/dL (74-106); Potassium 4.1 mmol/L (3.5-5.1); Sodium Level 140 mmol/L (136-145)
[2023-03-30] MEDS: Potassium Chloride Oral Tablet 20 MEQ PO ×2 (08:45→17:02)
[2023-03-30] MEDS: Aspirin 81 MG TAB.CHEW PO (08:45)
[2023-03-30] MEDS: Gabapentin 100 MG Capsule PO ×3 (08:45→17:02)
[2023-03-30] MEDS: Losartan Potassium 100 MG Tablet PO (08:46)
[2023-03-30] MEDS: amLODIPine 10 MG Tablet PO (08:47)
[2023-03-30] MEDS: Menthol/Lanolin/Calamine/Znox 113 GM Tube 1 APPLIC TOPICAL ×2 (08:50→20:48)
[2023-03-30] MEDS: Tuberculin,Purif.prot.deriv. 50 TU/ML Vial 0.1 ML ID (08:51)
[2023-03-30 08:56] VITALS: BP 101/66; PULSE 72
--- NOTE | 2023-03-30 11:20 | PHA.CONS_ITS ---
Documented by User: Garcia Guadalupe 03/30/23 11:34 TCU RX Drug Regimen Review Subjective/Objective Subjective/Objective: Subjective: 72 year old male with below past medical history hospitalized for sepsis, urinary tract infection, complicated by encephalopathy, hypokalemia, admitted to TCU with debility, here for rehabilitation, strengthening, prior to discharge home with son. Objective: Allergies ibuprofen [From Motrin] Adverse Reaction (Verified 03/23/23 19:20) Nausea Current Medications Generic Name Dose Route Start Last Admin Trade Name Freq PRN Reason Stop Dose Admin Acetaminophen 1,000 mg 03/29/23 14:00 03/30/23 05:11 Acetaminophen 500 Mg Tablet PO 1,000 mg Q8 IKE Administration Amlodipine Besylate 10 mg 03/30/23 10:00 03/30/23 08:47 Amlodipine 10 Mg Tablet PO 10 mg DAILY IKE Administration Protocol Aspirin 81 mg 03/30/23 08:00 03/30/23 08:45 Aspirin 81 Mg Tab.Chew PO 81 mg BREAKFAST IKE Administration Atorvastatin Calcium 40 mg 03/29/23 22:00 03/29/23 20:49 Atorvastatin Calcium 40 Mg Tablet PO 40 mg QHS IKE Administration Calamine/Phenol 1 applic 03/29/23 22:00 03/30/23 08:50 Menthol/Lanolin/Calamine/Znox 113 Gm Tube TOPICAL 1 applic BID IKE Administration Protocol Cephalexin 500 mg 03/29/23 14:00 03/30/23 05:10 Cephalexin 500 Mg Capsule PO 04/01/23 22:01 500 mg Q8 IKE Administration Gabapentin 100 mg 03/29/23 17:45 03/30/23 08:45 Gabapentin 100 Mg Capsule PO 100 mg TIDCM IKE Administration Losartan Potassium 100 mg 03/30/23 10:00 03/30/23 08:46 Losartan Potassium 100 Mg Tablet PO 100 mg DAILY IKE Administration Protocol Nystatin 1 applic 03/29/23 14:00 03/30/23 05:11 Nystatin Powder 15gm Bottle TOPICAL 1 applic TID IKE Administration Protocol Oxycodone HCl 5 mg 03/29/23 13:33 03/30/23 02:21 Oxycodone 5 Mg Tablet PO 5 mg Q6H PRN PRN Administration Pain Score 6-10 Potassium Chloride 20 meq 03/29/23 17:00 03/30/23 08:45 Potassium Chloride Oral Tablet 20 Meq PO 20 meq BIDCM IKE Administration Rivaroxaban 20 mg 03/29/23 17:00 03/29/23 17:38 Rivaroxaban 20 Mg Tablet PO 20 mg DINNER IKE Administration Senna/Docusate Sodium 1 tablet 03/29/23 20:27 Senna/Docusate Sodium 1 Tablet PO BID PRN CONSTIPATION Tuberculin PPD 0.1 ml 04/06/23 10:00 Tuberculin,Purif.Prot.Deriv. 50 Tu/Ml Vial ID 04/06/23 10:01 X1 ONE Problem List (Updated 03/29/23 @ 20:[address] Low Zheng MD) Neuropathic pain (Acute) Atrial fibrillation (Acute) CVA (cerebral vascular accident) (Acute) Hypertension (Chronic) Sepsis (Acute) Encephalopathy acute (Acute) Urinary tract infection (Acute) Hypokalemia (Acute) Right hemiplegia (Acute) Vital Signs Temp Pulse Resp BP Pulse Ox O2 Del Method 98.5 F 72 18 101/66 100 Room Air 03/29/23 13:32 03/30/23 08:56 03/29/23 13:32 03/30/23 08:56 03/29/23 13:32 03/29/23 13:32 Oxygen Delivery Method Room Air Weight: 111.754 kg Body Mass Index (BMI) 39.7 Sodium 140 mmol/L (136-145) 03/30/23 05:07 Potassium 4.1 mmol/L (3.5-5.1) 03/30/23 05:07 Chloride 107 mmol/L (98-107) 03/30/23 05:07 Carbon Dioxide 26.0 mmol/L (21.0-32.0) 03/30/23 05:07 Anion Gap 7 (5-15) 03/30/23 05:07 BUN 10 mg/dL (7-18) 03/30/23 05:07 Creatinine 0.81 mg/dL (0.70-1.30) 03/30/23 05:07 Est GFR (MDRD) Af Amer 119 mL/min (>60) 03/30/23 05:07 Est GFR (MDRD) Non-Af 99 mL/min (>60) 03/30/23 05:07 BUN/Creatinine Ratio 12.3 RATIO (10-20) 03/30/23 05:07 Glucose 96 mg/dL (74-106) 03/30/23 05:07 Assessment/Plan: 1. Pain: acetaminophen 1000 mg PO Q8H, oxycodone 5 mg PO Q6H PRN pain. The patient has used 1 PRN dose of oxycodone so far this admission. Please continue to monitor pain levels, PRN medication usage, LFTs (AST/ALT = 18/18 U/L on 03/24/23), for drowsiness/dizziness, constipation, syncope/ataxia/falls, and for respiratory depression. 2. Bowel: senna/docusate 1 tablet PO BID PRN constipation. The patient has not required any PRN doses of senna/docusate so far this admission. The patient's last bowel movement was today. Please continue to monitor for bowel movements, PRN medication usage, constipation and diarrhea. 3. Urinary tract infection: cephalexin 500 mg PO Q8H through 04/01/23. Please continue to monitor for s/s of urinary tract infection such as dysuria, frequency, urgency, WBC count (WBC = 8.5 K/mm3), fevers (recent temps = 97.4- 99.8 F), for chills, for abdominal pain and for diarrhea. 4. Hypertension: losartan 100 mg PO daily, amlodipine 10 mg PO daily. Please continue to monitor blood pressures (recent range = 101-134/65-90 mmHg), renal function (serum creatinine = 0.81 mg/dL with creatinine clearance ~ 73 mL/min), potassium levels (K = 4.1 mmol/L on 03/30/23), sodium levels (Na = 140 mmol/L on 03/30/23), and for lower extremity edema. 5. Stroke/atrial fibrillation: aspirin 81 mg PO daily, Xarelto 20 mg PO daily. Please continue to monitor for s/s of stroke, for s/s that the patient is in atrial fibrillation such as palpitations and heart rate (recent HR = 51-80 beats/min), hemoglobin levels (Hgb = 13.3 g/dL), platelet count (Plt = 275 K/mm3), for s/s of bleeding/excessive bruising, renal function (serum creatinine = 0.81 mg/dL with creatinine clearance ~ 73 mL/min) and for GI upset with aspirin administration. 6. Hyperlipidemia: atorvastatin 40 mg PO QHS. Please continue to monitor lipid levels (cholesterol = 71 mg/dL with LDL = 24 mg/dL on 01/29/23), LFTs (AST/ALT = 18/18 U/L on 03/24/23), and for myalgias. 7. Neuropathic pain: gabapentin 100 mg PO TID with meals. Please continue to monitor for neuropathic pain, renal function (serum creatinine = 0.81 mg/dL with creatinine clearance ~ 73 mL/min), for lower extremity edema, for for drowsiness/dizziness. 8. Hypokalemia: potassium chloride 20 mEq PO BID with meals. Please continue to monitor potassium levels (K = 4.1 mmol/L on 03/30/23), and for GI distress with potassium chloride administration. 9. Skin irritation/tinea corporis: calmoseptine 1 application topically BID, nystatin powder, 1 application topically TID. Please continue to monitor for resolution of tinea corporis, for skin irritation and skin integrity. Assessment/Plan for indications treated with psychotropic medications: NA Medical chart and medication regimen reviewed. The following medication irregularities or issues were identified: NA Date Date of Note:: 03/30/23 Documented by User: Dr. Low Zheng MD 03/30/23 11:40 TCU RX Drug Regimen Review Provider Comments Provider responsibility Provider Comments to Recommendations by Pharmacy: Agree
--- NOTE | 2023-03-30 12:59 | CASEMGMT ---
Social Work Pt known to this worker from two prior recent admissions. Verified no changes to assessment. Reminded for son to bring in copies of advanced directives. Pt's plan is to return home at DC with ongoing family support and set-up. SW was given a hand off that [facility], whom pt was active with, no longer had PT staffing for pt's area. SW will coordinate new [facility] agency at time of DC. SW will continue to follow. Danica Ching MSW ABRASIVE GRADER HELPER
--- NOTE | 2023-03-30 14:44 | CHAPLAIN ---
Type of Pastoral Visit ___ Initial Visit ___ Follow-up Visit ___ On-call Visit ___ General Patient Visit ___ Spiritual Assessment ___ Family Conference ___ Bereavement ___ Rapid Response ___ Code Blue ___ Other (describe below) Pastoral Care Referral From ___ Patient ___ Family ___ Nurse ___ Physician ___ Turret Lathe Operator ___ Coal Briquette Machine Operator ___ Other (describe below) Sacrament/Intervention ___ Active listening ___ Anointing ___ Muslim ___ Bereavement ___ Communion ___ Estefany exploration ___ ___ Life review ___ Prayer ___ Reconciliation ___ Sacrament of Sick ___ Supportive presence ___ Wedding ___ Other (describe below) Pastoral Comments two attempts to visit the patient but he was busy with staff both occasions
[2023-03-30 16:00] VITALS: BP 129/84; PULSE 70; RESP 16; TEMP 35.7; O2SAT 96
[2023-03-30] MEDS: Rivaroxaban 20 MG Tablet PO (17:03)
--- NOTE | 2023-03-30 18:29 | NURSING ---
PT NONCOMPLYING ON DIET RESTRICTIONS. HAS SON BRING FOOD IN FOR SUPPER PAST 2 DAYS. EDUCATED PT ON THE IMPORTANCE OF WHY HE HAS A DIET OF CARDIAC-HEART HEALTHY. PT STATED HE UNDERSTOOD AND CONTINUED TO EAT CINNAMON BUNS,PIZZA AND POP.
[2023-03-30] MEDS: Atorvastatin Calcium 40 MG Tablet PO (20:42)
[2023-03-30 21:30] VITALS: O2SAT 97
[2023-03-31] MEDS: Acetaminophen 500 MG Tablet 1000 MG PO ×3 (05:14→22:11)
[2023-03-31] MEDS: Cephalexin 500 MG Capsule PO ×3 (05:14→22:12)
[2023-03-31] MEDS: Nystatin Powder 15gm Bottle 1 APPLIC TOPICAL ×3 (05:14→22:11)
[2023-03-31 06:44] VITALS: O2SAT 94
[2023-03-31] MEDS: Aspirin 81 MG TAB.CHEW PO (08:27)
[2023-03-31] MEDS: Gabapentin 100 MG Capsule PO ×3 (08:27→17:34)
[2023-03-31] MEDS: Potassium Chloride Oral Tablet 20 MEQ PO ×2 (08:27→17:35)
[2023-03-31] MEDS: amLODIPine 10 MG Tablet PO (11:09)
[2023-03-31] MEDS: Losartan Potassium 100 MG Tablet PO (11:09)
[2023-03-31] MEDS: Menthol/Lanolin/Calamine/Znox 113 GM Tube 1 APPLIC TOPICAL ×2 (11:12→22:14)
[2023-03-31 14:08] VITALS: BP 119/55; PULSE 68; RESP 18; TEMP 36.3; O2SAT 95
[2023-03-31] MEDS: Rivaroxaban 20 MG Tablet PO (17:34)
[2023-03-31] MEDS: Atorvastatin Calcium 40 MG Tablet PO (22:11)
[2023-03-31] MEDS: oxyCODONE 5 MG Tablet PO (22:12)
[2023-04-01] MEDS: Acetaminophen 500 MG Tablet 1000 MG PO ×3 (05:20→21:11)
[2023-04-01] MEDS: Nystatin Powder 15gm Bottle 1 APPLIC TOPICAL ×3 (05:22→21:13)
[2023-04-01] MEDS: Cephalexin 500 MG Capsule PO ×3 (05:22→21:11)
[2023-04-01] MEDS: Losartan Potassium 100 MG Tablet PO (08:29)
[2023-04-01] MEDS: Gabapentin 100 MG Capsule PO ×3 (08:29→17:11)
[2023-04-01] MEDS: Potassium Chloride Oral Tablet 20 MEQ PO ×2 (08:30→17:11)
[2023-04-01] MEDS: amLODIPine 10 MG Tablet PO (08:30)
[2023-04-01] MEDS: Aspirin 81 MG TAB.CHEW PO (08:30)
[2023-04-01 08:57] VITALS: BP 118/72; PULSE 94; RESP 17; O2SAT 98
[2023-04-01] MEDS: Menthol/Lanolin/Calamine/Znox 113 GM Tube 1 APPLIC TOPICAL ×2 (11:45→21:13)
[2023-04-01 14:18] VITALS: BP 109/72; PULSE 72; RESP 16; TEMP 36; O2SAT 95
[2023-04-01] MEDS: Rivaroxaban 20 MG Tablet PO (17:11)
[2023-04-01] MEDS: Atorvastatin Calcium 40 MG Tablet PO (21:11)
[2023-04-02] MEDS: Nystatin Powder 15gm Bottle 1 APPLIC TOPICAL ×3 (05:44→21:15)
[2023-04-02] MEDS: Acetaminophen 500 MG Tablet 1000 MG PO ×3 (05:44→21:14)
[2023-04-02] MEDS: Gabapentin 100 MG Capsule PO ×3 (08:50→18:20)
[2023-04-02] MEDS: Aspirin 81 MG TAB.CHEW PO (08:51)
[2023-04-02] MEDS: Potassium Chloride Oral Tablet 20 MEQ PO ×2 (08:51→16:44)
[2023-04-02] MEDS: Menthol/Lanolin/Calamine/Znox 113 GM Tube 1 APPLIC TOPICAL ×2 (08:52→21:15)
[2023-04-02] MEDS: Losartan Potassium 100 MG Tablet PO (08:52)
[2023-04-02] MEDS: amLODIPine 10 MG Tablet PO (08:52)
[2023-04-02 08:59] VITALS: BP 106/70; PULSE 70
--- NOTE | 2023-04-02 09:10 | NURSING ---
Offered covid vaccine, VIS provided. Patient refuses at this time.
[2023-04-02 14:45] VITALS: BP 127/86; PULSE 72; RESP 18; TEMP 36.1; O2SAT 97
[2023-04-02] MEDS: Rivaroxaban 20 MG Tablet PO (16:44)
[2023-04-02] MEDS: Atorvastatin Calcium 40 MG Tablet PO (21:14)
[2023-04-03] MEDS: Nystatin Powder 15gm Bottle 1 APPLIC TOPICAL ×3 (05:23→21:04)
[2023-04-03] MEDS: Acetaminophen 500 MG Tablet 1000 MG PO ×3 (05:23→21:03)
[2023-04-03] MEDS: Aspirin 81 MG TAB.CHEW PO (08:31)
[2023-04-03] MEDS: Gabapentin 100 MG Capsule PO ×3 (08:31→16:59)
[2023-04-03] MEDS: Potassium Chloride Oral Tablet 20 MEQ PO ×2 (08:32→16:59)
[2023-04-03] MEDS: Losartan Potassium 100 MG Tablet PO (08:32)
[2023-04-03] MEDS: amLODIPine 10 MG Tablet PO (08:32)
[2023-04-03] MEDS: Menthol/Lanolin/Calamine/Znox 113 GM Tube 1 APPLIC TOPICAL ×2 (08:34→21:04)
[2023-04-03 08:36] VITALS: BP 106/71; PULSE 77
[2023-04-03 13:40] VITALS: BMI 39.9
--- NOTE | 2023-04-03 15:02 | CHAPLAIN ---
Type of Pastoral Visit ___ Initial Visit ___ Follow-up Visit ___ On-call Visit ___ General Patient Visit ___ Spiritual Assessment ___ Family Conference ___ Bereavement ___ Rapid Response ___ Code Blue ___ Other (describe below) Pastoral Care Referral From ___ Patient ___ Family ___ Nurse ___ Physician ___ Medical Interpreter ___ Senior Tax Specialist ___ Other (describe below) Sacrament/Intervention ___ Active listening ___ Anointing ___ Mandaen ___ Bereavement ___ Communion ___ Estefany exploration ___ ___ Life review ___ Prayer ___ Reconciliation ___ Sacrament of Sick ___ Supportive presence ___ Wedding ___ Other (describe below) Pastoral Comments patient is out of the room at this time
[2023-04-03 16:00] VITALS: BP 123/69; PULSE 64; RESP 14; TEMP 36; O2SAT 96
[2023-04-03] MEDS: Rivaroxaban 20 MG Tablet PO (16:59)
[2023-04-03] MEDS: Atorvastatin Calcium 40 MG Tablet PO (21:03)
[2023-04-04] MEDS: Acetaminophen 500 MG Tablet 1000 MG PO ×3 (05:15→20:29)
[2023-04-04] MEDS: Nystatin Powder 15gm Bottle 1 APPLIC TOPICAL ×3 (05:16→20:31)
[2023-04-04] MEDS: Gabapentin 100 MG Capsule PO ×3 (08:05→17:13)
[2023-04-04] MEDS: Aspirin 81 MG TAB.CHEW PO (08:06)
[2023-04-04] MEDS: Menthol/Lanolin/Calamine/Znox 113 GM Tube 1 APPLIC TOPICAL ×2 (08:06→20:31)
[2023-04-04] MEDS: Losartan Potassium 100 MG Tablet PO (08:06)
[2023-04-04] MEDS: Potassium Chloride Oral Tablet 20 MEQ PO ×2 (08:06→16:07)
[2023-04-04] MEDS: amLODIPine 10 MG Tablet PO (08:06)
--- NOTE | 2023-04-04 13:48 | CASEMGMT ---
Addendum entered by Danica Ching 04/06/23 10:50: Received return call from [facility], and they do not have beds until the end of next week. SW updated the EDC is 04/14, if they can still review the referral. SNF agreed and also noted they are not a [facility] facility. Addendum entered by Danica Ching 04/06/23 10:32: SW left VM with [facility] for outcome on referral. SW has not received call from son on VA benefits. Original Note: Social Work IDT met with patient and son, Maco, via conference call for care plan meeting. Discussed patient's progress in PT/OT/SN. Educated to [facility] insurance with NRD 04/11 with EDC 04/14. Broached topic of recommending SNF for continued therapy and care as home has not proven to be successful after multiple attempts. Revisited financial liability. Pt is adamant about not applying for Medicaid to protect his house for his children. Son intervened and inquired about VA benefits. SW educated to VA paying for room and board when the pt is on hospice services. Son stated he just spoke to the VA and received his benefits. SW reiterated understanding of VA SNF benefit but inquired to son what pt's benefits stated. Son stated he had not had a chance to review the packet of benefits yet since pt has not been home long enough. SW offered to make referrals to SNF and once son reviews pt's benefits, if SNF coverage is provided, this worker can coordinate with an accepting SNF. Son agreed. SW inquired to pt. Pt agreeable to plan and prefers [facility] SNF. SW agreed to make referral and will update pt and son on outcome of acceptance. Pt confirmed that if VA does not cover SNF stay, he will DC home. SW will continue to follow for DC planning. Danica Ching CARDIOGRAPH OPERATOR OUTSOLE HANDLER
--- NOTE | 2023-04-04 15:58 | CHAPLAIN ---
Type of Pastoral Visit _x__ Initial Visit ___ Follow-up Visit ___ On-call Visit ___ General Patient Visit ___ Spiritual Assessment ___ Family Conference ___ Bereavement ___ Rapid Response ___ Code Blue ___ Other (describe below) Pastoral Care Referral From _x__ Patient ___ Family ___ Nurse ___ Physician ___ Accounting Clerks Supervisor ___ Hall Monitor ___ Other (describe below) Sacrament/Intervention _x__ Active listening ___ Anointing ___ Baptist ___ Bereavement ___ Communion ___ Estefany exploration ___ _x__ Life review ___ Prayer ___ Reconciliation ___ Sacrament of Sick ___ Supportive presence ___ Wedding ___ Other (describe below) Pastoral Comments the patient was the most interactive today than he has been in any previous visit; pt admits that he has been in the hospital too often and his goal is to just improve, go home, and stay there'; pt is looking online to purchase items that will benefit him being at home; pt talks about the VA and so a topic is opened about his service in [place] and this was more engaging by pt; pt is affirmed for his service to the country; pt expresses gratitude for visit
[2023-04-04 16:00] VITALS: BP 97/70; PULSE 58; RESP 14; TEMP 35.8; O2SAT 97
[2023-04-04] MEDS: Rivaroxaban 20 MG Tablet PO (16:08)
[2023-04-04] MEDS: Atorvastatin Calcium 40 MG Tablet PO (20:29)
[2023-04-04 20:39] VITALS: O2SAT 96
[2023-04-04 23:36] VITALS: BP 96/58; PULSE 74
[2023-04-05] MEDS: Acetaminophen 500 MG Tablet 1000 MG PO ×3 (05:10→20:36)
[2023-04-05] MEDS: Nystatin Powder 15gm Bottle 1 APPLIC TOPICAL ×3 (05:12→20:42)
[2023-04-05] MEDS: Gabapentin 100 MG Capsule PO ×3 (08:56→18:24)
[2023-04-05] MEDS: Potassium Chloride Oral Tablet 20 MEQ PO ×2 (08:56→18:24)
[2023-04-05] MEDS: amLODIPine 10 MG Tablet PO (08:56)
[2023-04-05] MEDS: Aspirin 81 MG TAB.CHEW PO (08:56)
[2023-04-05] MEDS: Losartan Potassium 100 MG Tablet PO (08:56)
[2023-04-05] MEDS: Menthol/Lanolin/Calamine/Znox 113 GM Tube 1 APPLIC TOPICAL ×2 (08:59→20:41)
[2023-04-05] MEDS: Petrolatum 33% Tube 1 APPLIC TOPICAL ×2 (09:00→20:42)
[2023-04-05 14:31] VITALS: BP 137/90; PULSE 62; RESP 16; TEMP 36.1; O2SAT 93
--- NOTE | 2023-04-05 16:20 | CASEMGMT ---
SOCIAL WORK: BIMS () and PHQ-2 () completed for MDS assessment. Marsha DUPREE
[2023-04-05] MEDS: Rivaroxaban 20 MG Tablet PO (18:24)
[2023-04-05] MEDS: Atorvastatin Calcium 40 MG Tablet PO (20:36)
[2023-04-06] MEDS: Acetaminophen 500 MG Tablet 1000 MG PO ×3 (05:37→20:26)
[2023-04-06] MEDS: Nystatin Powder 15gm Bottle 1 APPLIC TOPICAL ×3 (05:38→20:28)
[2023-04-06 07:05] LABS: Absolute Lymphocyte Count 1.45 X10^3/uL (0.83-4.51); Absolute Neutrophil Count 6.2 X10^3/uL (2.0-7.7); Basophil# 0.05 X10^3/uL; Basophil% 0.6 % (0-1); Eosinophil# 0.58 X10^3/uL; Eosinophils% 6.5 % (0-5); Hematocrit 44.4 % (40-54); Hemoglobin 14.4 g/dL (13.0-16.5); Lymphocyte # 1.45 X10^3/ul (0.83-4.51); Lymphocyte % 16.1 % (19-41); Mean Corp Hgb Conc 32.4 g/dL (32-36); Mean Corpuscular Hgb 30.3 pg (27.0-32.0); Mean Corpuscular Volume 93.5 fL (80-94); Mean Platelet Vol. 9.4 fl (6.2-12.0); Monocyte# 0.65 X10^3/uL; Monocyte% 7.2 % (0-10); NRBC Flagged by Analyzer 0 % (0-5); Neutrophil # 6.19 X10^3/uL (2.7-7.7); Neutrophil % 68.9 % (47-70); Platelet Count 346 K/mm3 (150-450); RBC Distribution Width SD 48.2 fl (35.1-43.9); Red Blood Count 4.75 M/mm3 (4.6-6.2)
[2023-04-06 07:30] LABS: Anion Gap 2 (5-15); BUN 17 mg/dL (7-18); BUN/Creat Ratio 19.8 RATIO (10-20); Calcium,Total 8.9 mg/dL (8.5-10.1); Chloride 109 mmol/L (98-107); Creatinine, Serum 0.86 mg/dL (0.70-1.30); EST Glomerular Filtration Rate 93 mL/min (>60); Est Glom Filt Rate - Afr Amer 112 mL/min (>60); Estimated Creatinine Clearance 69.03 ml/min; Glucose 88 mg/dL (74-106); Potassium 4.1 mmol/L (3.5-5.1); Sodium Level 136 mmol/L (136-145)
--- NOTE | 2023-04-06 08:27 | NURSING ---
Cinder Pit Crane Operator Note; MDS for 04/05/2023 Complete
[2023-04-06] MEDS: Potassium Chloride Oral Tablet 20 MEQ PO ×2 (09:17→17:45)
[2023-04-06] MEDS: Gabapentin 100 MG Capsule PO ×3 (09:17→17:45)
[2023-04-06] MEDS: amLODIPine 10 MG Tablet PO (09:17)
[2023-04-06] MEDS: Losartan Potassium 100 MG Tablet PO (09:17)
[2023-04-06] MEDS: Aspirin 81 MG TAB.CHEW PO (09:17)
[2023-04-06] MEDS: Menthol/Lanolin/Calamine/Znox 113 GM Tube 1 APPLIC TOPICAL ×2 (09:20→20:28)
[2023-04-06] MEDS: Petrolatum 33% Tube 1 APPLIC TOPICAL ×2 (09:20→20:27)
[2023-04-06 09:24] VITALS: BP 136/75; PULSE 70; RESP 18; O2SAT 96
[2023-04-06 13:37] VITALS: BP 124/77; PULSE 61; RESP 16; TEMP 35.9; O2SAT 98
[2023-04-06] MEDS: oxyCODONE 5 MG Tablet PO (15:32)
--- NOTE | 2023-04-06 15:37 | CASEMGMT ---
Care Management: Call received from pt's son Naeem who expressed concerns and frustration with pt being in and out of the hospital frequently and not doing well at home. Naeem stated he feels pt needs to obtain additional therapy beyond what he has been getting. Feels pt is discharged just as he improves and is not given time to truly become stronger to be able to maintain his ability to care for himself. Frustrated that the discharge plan discussion was started only a few days after being admitted and that discussion included continued care in an ECF. Naeem states he and his brother prefer for pt to be discharged home and in a state that pt is able to care for self during the day while the sons are at work. Naeem states he and his brother are able to provide for pt during other times of the day. This director educated Naeem on the insurance review process including determination of coverage and end dates of coverage. Discussed rationale for discharge discussions starting upon admission, rationale for ECF discussion given pt's frequent readmissions, discussed alternatives including [facility] for pt to attend while the sons are at work. Reviewed possible VA benefits, need for service connection, and limited facilities contracted with the VA. Discussed/educated on the discharge appeal process and pt's/family's right to advocate for/discuss their concerns and rationale for not agreeing with pt's discharge when insurance does submit last covered date information. Naeem expressed appreciation for the above information, will continue to follow his father's progress in therapy, and discuss discharge plans with SW based on pt's demonstrated needs. Naeem's goal is for pt to return home with his assistance. This director spoke with LEIA Mishra who will provide [place] information and will continue to support pt and sons with discharge planning needs as they are determined and identified. Mony Xie RN Director, Care Mgmt
[2023-04-06] MEDS: Rivaroxaban 20 MG Tablet PO (17:45)
[2023-04-06] MEDS: Atorvastatin Calcium 40 MG Tablet PO (20:26)
[2023-04-07] MEDS: Acetaminophen 500 MG Tablet 1000 MG PO ×3 (04:26→21:50)
[2023-04-07] MEDS: Nystatin Powder 15gm Bottle 1 APPLIC TOPICAL ×3 (04:27→21:52)
[2023-04-07] MEDS: Aspirin 81 MG TAB.CHEW PO (09:06)
[2023-04-07] MEDS: Gabapentin 100 MG Capsule PO ×3 (09:06→17:45)
[2023-04-07] MEDS: Potassium Chloride Oral Tablet 20 MEQ PO ×2 (09:06→17:44)
[2023-04-07] MEDS: amLODIPine 10 MG Tablet PO (09:07)
[2023-04-07] MEDS: Losartan Potassium 100 MG Tablet PO (09:07)
[2023-04-07] MEDS: Menthol/Lanolin/Calamine/Znox 113 GM Tube 1 APPLIC TOPICAL ×2 (09:08→21:53)
[2023-04-07] MEDS: Petrolatum 33% Tube 1 APPLIC TOPICAL ×2 (09:11→21:53)
[2023-04-07 09:14] VITALS: BP 120/64; PULSE 61
[2023-04-07 16:00] VITALS: BP 111/75; PULSE 66; RESP 20; TEMP 36.4
[2023-04-07] MEDS: Rivaroxaban 20 MG Tablet PO (17:44)
[2023-04-07] MEDS: Atorvastatin Calcium 40 MG Tablet PO (21:50)
[2023-04-08] MEDS: Acetaminophen 500 MG Tablet 1000 MG PO ×3 (05:43→21:23)
[2023-04-08] MEDS: Nystatin Powder 15gm Bottle 1 APPLIC TOPICAL ×3 (05:45→21:24)
[2023-04-08 08:33] VITALS: BP 127/76; PULSE 73
[2023-04-08] MEDS: Gabapentin 100 MG Capsule PO ×3 (08:33→17:08)
[2023-04-08] MEDS: Aspirin 81 MG TAB.CHEW PO (08:33)
[2023-04-08] MEDS: Potassium Chloride Oral Tablet 20 MEQ PO ×2 (08:33→17:08)
[2023-04-08] MEDS: Losartan Potassium 100 MG Tablet PO (08:34)
[2023-04-08] MEDS: amLODIPine 10 MG Tablet PO (08:35)
[2023-04-08] MEDS: Menthol/Lanolin/Calamine/Znox 113 GM Tube 1 APPLIC TOPICAL ×2 (08:37→21:24)
[2023-04-08] MEDS: Petrolatum 33% Tube 1 APPLIC TOPICAL ×2 (08:37→21:24)
[2023-04-08 16:00] VITALS: BP 104/57; PULSE 52; RESP 16; TEMP 36.6; O2SAT 96
[2023-04-08] MEDS: Rivaroxaban 20 MG Tablet PO (17:08)
[2023-04-08] MEDS: Atorvastatin Calcium 40 MG Tablet PO (21:23)
[2023-04-09] MEDS: Acetaminophen 500 MG Tablet 1000 MG PO ×3 (05:06→20:44)
[2023-04-09] MEDS: Nystatin Powder 15gm Bottle 1 APPLIC TOPICAL ×3 (05:10→20:50)
[2023-04-09] MEDS: Gabapentin 100 MG Capsule PO ×3 (08:59→16:57)
[2023-04-09] MEDS: amLODIPine 10 MG Tablet PO (09:00)
[2023-04-09] MEDS: Aspirin 81 MG TAB.CHEW PO (09:00)
[2023-04-09] MEDS: Menthol/Lanolin/Calamine/Znox 113 GM Tube 1 APPLIC TOPICAL ×2 (09:00→20:50)
[2023-04-09] MEDS: Losartan Potassium 100 MG Tablet PO (09:00)
[2023-04-09] MEDS: Potassium Chloride Oral Tablet 20 MEQ PO ×2 (09:03→16:57)
[2023-04-09] MEDS: Petrolatum 33% Tube 1 APPLIC TOPICAL ×2 (09:03→20:46)
--- NOTE | 2023-04-09 10:07 | MDS.RN ---
Information for the mds was obtained from review of the clinical record, interview of resident, staff, and direct observation of resident's care.
[2023-04-09 13:41] VITALS: BP 118/79; PULSE 79; RESP 16; TEMP 36.2; O2SAT 97
[2023-04-09] MEDS: Rivaroxaban 20 MG Tablet PO (16:57)
[2023-04-09] MEDS: Atorvastatin Calcium 40 MG Tablet PO (20:45)
[2023-04-10] MEDS: Acetaminophen 500 MG Tablet 1000 MG PO ×3 (05:32→20:15)
[2023-04-10] MEDS: Nystatin Powder 15gm Bottle 1 APPLIC TOPICAL ×3 (05:33→20:16)
[2023-04-10 05:53] VITALS: O2SAT 95
[2023-04-10] MEDS: Gabapentin 100 MG Capsule PO ×3 (07:57→17:10)
[2023-04-10] MEDS: Aspirin 81 MG TAB.CHEW PO (07:57)
[2023-04-10] MEDS: Potassium Chloride Oral Tablet 20 MEQ PO ×2 (07:57→17:10)
[2023-04-10] MEDS: Losartan Potassium 100 MG Tablet PO (07:58)
[2023-04-10] MEDS: amLODIPine 10 MG Tablet PO (07:59)
[2023-04-10] MEDS: Petrolatum 33% Tube 1 APPLIC TOPICAL ×2 (08:00→20:15)
[2023-04-10] MEDS: Menthol/Lanolin/Calamine/Znox 113 GM Tube 1 APPLIC TOPICAL ×2 (08:01→20:16)
[2023-04-10 08:09] VITALS: BP 122/68; PULSE 75; RESP 18; TEMP 36.2; O2SAT 99
[2023-04-10 11:42] VITALS: BMI 40.9
[2023-04-10] MEDS: Rivaroxaban 20 MG Tablet PO (17:10)
[2023-04-10] MEDS: Atorvastatin Calcium 40 MG Tablet PO (20:15)
[2023-04-11] MEDS: Acetaminophen 500 MG Tablet 1000 MG PO ×3 (05:35→21:40)
[2023-04-11] MEDS: Nystatin Powder 15gm Bottle 1 APPLIC TOPICAL ×3 (05:35→21:38)
[2023-04-11] MEDS: Gabapentin 100 MG Capsule PO ×3 (07:59→16:47)
[2023-04-11] MEDS: Potassium Chloride Oral Tablet 20 MEQ PO ×2 (08:00→16:48)
[2023-04-11] MEDS: Losartan Potassium 100 MG Tablet PO (08:00)
[2023-04-11] MEDS: Aspirin 81 MG TAB.CHEW PO (08:00)
[2023-04-11] MEDS: Menthol/Lanolin/Calamine/Znox 113 GM Tube 1 APPLIC TOPICAL ×2 (08:00→21:39)
[2023-04-11] MEDS: Petrolatum 33% Tube 1 APPLIC TOPICAL ×2 (08:01→21:39)
[2023-04-11] MEDS: amLODIPine 10 MG Tablet PO (08:01)
[2023-04-11 08:04] VITALS: BP 127/78; PULSE 68
[2023-04-11 15:34] VITALS: BP 111/65; PULSE 55; RESP 18; TEMP 36.4; O2SAT 96
--- NOTE | 2023-04-11 16:36 | CASEMGMT ---
Addendum entered by Danica Ching 04/13/23 08:49: SW phoned son, Naeem, to follow up on therapy training. Scheduled for 04/14 at 1000. Son stated he is still hashing [SNF vs home] with pt. SW requested son leave a VM over the weekend with answer, and if SNFs, provide choices for this worker to start placing referrals on the next business day. Son agreed. IDT updated. Will continue to follow. Original Note: Social Work SW spoke with pt's son, Naeem, who presented to pt's room for a visit. SW informed son that insurance approved with NRD 04/18 and will be issuing LCD. Educated to [facility] and other son has not contacted this worker further about VA benefits or other DC plans. Inquired about DC plans for pt. Son stated, we will have to see where he is at next week. SW further explained that DC plans are to be in place to update the insurance on 04/18. Offered for son to participate in therapy training to assist in determining pt's LOC. Offered Sunday training d/t son's work schedule. Son to speak with pt and will notify nursing or this worker with preference. Son did request another SNF with INN SNFs to review. SW agreed. SW left list of [place] and [facility] SNFs INN with insurance with quality and resource data via [employer] Guide in pt's room to provide to son. SW will continue to follow. Danica Ching, ALYSSA VASQUEZW
[2023-04-11] MEDS: Rivaroxaban 20 MG Tablet PO (16:48)
[2023-04-11] MEDS: Atorvastatin Calcium 40 MG Tablet PO (21:40)
[2023-04-12] MEDS: Acetaminophen 500 MG Tablet 1000 MG PO ×3 (05:36→20:10)
[2023-04-12] MEDS: Nystatin Powder 15gm Bottle 1 APPLIC TOPICAL ×3 (05:37→20:12)
[2023-04-12] MEDS: Aspirin 81 MG TAB.CHEW PO (08:14)
[2023-04-12] MEDS: Potassium Chloride Oral Tablet 20 MEQ PO ×2 (08:14→17:01)
[2023-04-12] MEDS: amLODIPine 10 MG Tablet PO (08:15)
[2023-04-12] MEDS: Losartan Potassium 100 MG Tablet PO (08:15)
[2023-04-12] MEDS: Petrolatum 33% Tube 1 APPLIC TOPICAL ×2 (08:16→20:11)
[2023-04-12] MEDS: Menthol/Lanolin/Calamine/Znox 113 GM Tube 1 APPLIC TOPICAL ×2 (08:21→20:11)
[2023-04-12] MEDS: Gabapentin 100 MG Capsule PO ×3 (08:21→16:59)
[2023-04-12 08:22] VITALS: BP 125/80; PULSE 75
[2023-04-12 13:13] VITALS: BP 101/61; PULSE 68; RESP 16; TEMP 36.4; O2SAT 97
[2023-04-12] MEDS: Rivaroxaban 20 MG Tablet PO (17:00)
[2023-04-12] MEDS: Atorvastatin Calcium 40 MG Tablet PO (20:10)
[2023-04-13] MEDS: Acetaminophen 500 MG Tablet 1000 MG PO ×3 (05:29→20:37)
[2023-04-13] MEDS: Nystatin Powder 15gm Bottle 1 APPLIC TOPICAL ×3 (05:31→20:38)
[2023-04-13 06:03] LABS: Absolute Lymphocyte Count 1.19 X10^3/uL (0.83-4.51); Absolute Neutrophil Count 5.5 X10^3/uL (2.0-7.7); Basophil# 0.03 X10^3/uL; Basophil% 0.4 % (0-1); Eosinophil# 0.52 X10^3/uL; Eosinophils% 6.5 % (0-5); Hematocrit 38.5 % (40-54); Hemoglobin 12.7 g/dL (13.0-16.5); Lymphocyte # 1.19 X10^3/ul (0.83-4.51); Lymphocyte % 14.8 % (19-41); Mean Corpuscular Hgb 31.3 pg (27.0-32.0); Mean Corpuscular Volume 94.8 fL (80-94); Mean Platelet Vol. 9.8 fl (6.2-12.0); Monocyte# 0.72 X10^3/uL; NRBC Flagged by Analyzer 0 % (0-5); Neutrophil # 5.54 X10^3/uL (2.7-7.7); Neutrophil % 69.1 % (47-70); Platelet Count 230 K/mm3 (150-450); RBC Distribution Width CV 14.5 % (11.6-14.6); RBC Distribution Width SD 50.4 fl (35.1-43.9); Red Blood Count 4.06 M/mm3 (4.6-6.2)
[2023-04-13 06:26] LABS: Anion Gap 6 (5-15); BUN 17 mg/dL (7-18); BUN/Creat Ratio 21.4 RATIO (10-20); Calcium,Total 8.4 mg/dL (8.5-10.1); Chloride 113 mmol/L (98-107); Creatinine, Serum 0.79 mg/dL (0.70-1.30); EST Glomerular Filtration Rate 102 mL/min (>60); Est Glom Filt Rate - Afr Amer 123 mL/min (>60); Estimated Creatinine Clearance 59.37 ml/min; Glucose 95 mg/dL (74-106); Potassium 3.8 mmol/L (3.5-5.1); Sodium Level 143 mmol/L (136-145)
[2023-04-13] MEDS: Gabapentin 100 MG Capsule PO ×3 (07:57→17:57)
[2023-04-13] MEDS: Menthol/Lanolin/Calamine/Znox 113 GM Tube 1 APPLIC TOPICAL ×2 (08:01→20:38)
[2023-04-13] MEDS: Losartan Potassium 100 MG Tablet PO (08:01)
[2023-04-13] MEDS: Potassium Chloride Oral Tablet 20 MEQ PO ×2 (08:01→17:57)
[2023-04-13] MEDS: Aspirin 81 MG TAB.CHEW PO (08:01)
[2023-04-13] MEDS: Petrolatum 33% Tube 1 APPLIC TOPICAL ×2 (08:02→20:38)
[2023-04-13] MEDS: amLODIPine 10 MG Tablet PO (08:03)
[2023-04-13 08:05] VITALS: BP 129/78; PULSE 78
[2023-04-13 14:15] VITALS: BP 110/75; PULSE 67; RESP 18; TEMP 36.4; O2SAT 98
[2023-04-13] MEDS: Rivaroxaban 20 MG Tablet PO (17:58)
[2023-04-13] MEDS: Atorvastatin Calcium 40 MG Tablet PO (20:37)
[2023-04-14] MEDS: Nystatin Powder 15gm Bottle 1 APPLIC TOPICAL ×3 (05:45→21:25)
[2023-04-14] MEDS: Acetaminophen 500 MG Tablet 1000 MG PO ×3 (05:45→21:23)
[2023-04-14] MEDS: Gabapentin 100 MG Capsule PO ×3 (08:18→16:53)
[2023-04-14] MEDS: Potassium Chloride Oral Tablet 20 MEQ PO ×2 (08:18→16:53)
[2023-04-14] MEDS: Aspirin 81 MG TAB.CHEW PO (08:18)
[2023-04-14] MEDS: amLODIPine 10 MG Tablet PO (11:18)
[2023-04-14] MEDS: Losartan Potassium 100 MG Tablet PO (11:18)
[2023-04-14] MEDS: Menthol/Lanolin/Calamine/Znox 113 GM Tube 1 APPLIC TOPICAL ×2 (11:19→21:24)
[2023-04-14] MEDS: Petrolatum 33% Tube 1 APPLIC TOPICAL ×2 (11:19→21:25)
[2023-04-14 14:23] VITALS: BP 105/54; PULSE 67; RESP 18; TEMP 36.6; O2SAT 95
[2023-04-14] MEDS: oxyCODONE 5 MG Tablet PO (15:44)
[2023-04-14] MEDS: Rivaroxaban 20 MG Tablet PO (16:53)
[2023-04-14] MEDS: Atorvastatin Calcium 40 MG Tablet PO (21:23)
[2023-04-15] MEDS: Acetaminophen 500 MG Tablet 1000 MG PO ×3 (05:53→21:13)
[2023-04-15] MEDS: Nystatin Powder 15gm Bottle 1 APPLIC TOPICAL ×3 (05:53→21:14)
[2023-04-15] MEDS: Losartan Potassium 100 MG Tablet PO (08:07)
[2023-04-15] MEDS: Menthol/Lanolin/Calamine/Znox 113 GM Tube 1 APPLIC TOPICAL ×2 (08:07→21:14)
[2023-04-15] MEDS: Potassium Chloride Oral Tablet 20 MEQ PO ×2 (08:08→16:58)
[2023-04-15] MEDS: Aspirin 81 MG TAB.CHEW PO (08:08)
[2023-04-15] MEDS: amLODIPine 10 MG Tablet PO (08:08)
[2023-04-15] MEDS: Petrolatum 33% Tube 1 APPLIC TOPICAL ×2 (08:09→21:14)
[2023-04-15] MEDS: Gabapentin 100 MG Capsule PO ×3 (08:11→16:57)
[2023-04-15 08:13] VITALS: BP 112/84; PULSE 77
[2023-04-15 13:48] VITALS: RESP 18; TEMP 36.4; O2SAT 96
[2023-04-15] MEDS: Rivaroxaban 20 MG Tablet PO (16:58)
[2023-04-15] MEDS: Atorvastatin Calcium 40 MG Tablet PO (21:13)
[2023-04-15 23:28] VITALS: O2SAT 96
[2023-04-16 01:08] VITALS: BMI 40.9
[2023-04-16] MEDS: oxyCODONE 5 MG Tablet PO ×3 (01:52→21:51)
[2023-04-16] MEDS: Acetaminophen 500 MG Tablet 1000 MG PO ×3 (05:57→21:13)
[2023-04-16] MEDS: Nystatin Powder 15gm Bottle 1 APPLIC TOPICAL ×3 (05:58→21:14)
[2023-04-16] MEDS: Gabapentin 100 MG Capsule PO ×3 (08:36→17:40)
[2023-04-16] MEDS: Losartan Potassium 100 MG Tablet PO (08:37)
[2023-04-16] MEDS: Potassium Chloride Oral Tablet 20 MEQ PO ×2 (08:37→17:38)
[2023-04-16] MEDS: Aspirin 81 MG TAB.CHEW PO (08:37)
[2023-04-16] MEDS: amLODIPine 10 MG Tablet PO (08:38)
[2023-04-16] MEDS: Menthol/Lanolin/Calamine/Znox 113 GM Tube 1 APPLIC TOPICAL ×2 (08:39→21:13)
[2023-04-16] MEDS: Petrolatum 33% Tube 1 APPLIC TOPICAL ×2 (08:43→21:14)
[2023-04-16 08:53] VITALS: BP 110/76; PULSE 64
--- NOTE | 2023-04-16 11:08 | CASEMGMT ---
Social Work SW received note that pt's SNF choices are 1. [facility], 2. [facility] or 3. [facility]. SW sent referrals via [facility], will continue to follow. CLINT Kraft
[2023-04-16 13:10] VITALS: BP 115/73; PULSE 73; RESP 18; TEMP 36.6; O2SAT 96
--- NOTE | 2023-04-16 15:41 | NURSING ---
Addendum entered by Gilberto Jane 04/17/23 11:28: NEW ORDERS FOR KEFLEX AND DOXYCYCLINE FOR CELLULITIS. Original Note: PT CHRISTY LOWER LEGS INCREASED SWELLING AND SWELLING TO LEFT ELBOW, WITH PAIN TO LT LOWER LEG. LEFT NOTE FOR TO SEE PT.
[2023-04-16] MEDS: Rivaroxaban 20 MG Tablet PO (17:38)
[2023-04-16] MEDS: Cephalexin 500 MG Capsule PO ×2 (17:38→23:23)
[2023-04-16] MEDS: Atorvastatin Calcium 40 MG Tablet PO (21:13)
[2023-04-16] MEDS: Doxycycline 100 MG CAPSULE PO (21:13)
[2023-04-16 22:06] VITALS: BMI 40.9
[2023-04-17] MEDS: Cephalexin 500 MG Capsule PO ×4 (05:36→23:30)
[2023-04-17] MEDS: Nystatin Powder 15gm Bottle 1 APPLIC TOPICAL ×3 (05:36→21:44)
[2023-04-17] MEDS: Acetaminophen 500 MG Tablet 1000 MG PO ×3 (05:36→21:42)
[2023-04-17] MEDS: Gabapentin 100 MG Capsule PO ×3 (07:51→16:53)
[2023-04-17] MEDS: Potassium Chloride Oral Tablet 20 MEQ PO ×2 (07:52→16:53)
[2023-04-17] MEDS: amLODIPine 10 MG Tablet PO (07:52)
[2023-04-17] MEDS: Doxycycline 100 MG CAPSULE PO ×2 (07:52→21:43)
[2023-04-17] MEDS: Losartan Potassium 100 MG Tablet PO (07:52)
[2023-04-17] MEDS: Menthol/Lanolin/Calamine/Znox 113 GM Tube 1 APPLIC TOPICAL ×2 (07:53→21:44)
[2023-04-17] MEDS: Aspirin 81 MG TAB.CHEW PO (07:53)
[2023-04-17 07:55] VITALS: BP 133/88; PULSE 75
[2023-04-17] MEDS: Petrolatum 33% Tube 1 APPLIC TOPICAL ×2 (10:18→21:43)
[2023-04-17 13:00] VITALS: BMI 42.7
[2023-04-17 13:06] VITALS: BP 115/61; PULSE 73; RESP 16; TEMP 36.4; O2SAT 100
--- NOTE | 2023-04-17 15:59 | CASEMGMT ---
Social Work Insurance issued LCD 04/19, DC 04/20. JESSIE phoned son to update. Informed son that [facility] can accept; [facility] and [facility] does not have beds. Inquired if plan is home or [facility]. Son stated plan is [facility] for continued therapy and care. SW reminded son that is an OOP cost to the pt. Son refuted stated son called the insurance company and was told the pt has $20/day copays for days 1-20 and $196/day copay for days 21-100. JESSIE explained that is coverage for skilled care, which pt is currently receiving in TCU, but since the insurance issued LCD for skilled care, pt would be nonskilled/intermediate care, a different LOC, that insurance does not cover. [facility] cost is approx. $250/day and requires 30 days of payment at admission. Son immediately became angry and refuted stating he spoke to the insurance and was told this different cost and coverage. JESSIE empathized with challenging insurance information and depending on the questions son asked, he would receive the answers. JESSIE explained the answer is correct for skilled care but not for nonskilled care. Son continued to have difficulty understanding and accepting this worker's insurance explanation. Son stated he is calling the insurance company again, and requested this worker explain this to the pt. JESSIE agreed. JESSIE spoke with pt in room. Explained LCD, appeal rights and insurance coverage for nonskilled care at [facility]. Pt also reiterating same information from son with coverage at a $20/day copay. Pt also upset when this worker educated to difference of coverage. Pt states he will speak with son but is voicing wanting to appeal. SW reiterated appeal rights. Pt expressed understanding. JESSIE phoned Alfonzo at [facility] to ensure this worker is understanding on OOP cost and part B therapies. Alfonzo confirmed no changes with pt's insurance coverage. -- PT worked with pt after this worker exited room and notified this worker after session that pt and son spoke on the phone and both very upset. Son was yelling in the phone with derogatory remarks toward this worker about insurance information and stated he would be coming to visit pt and speak with this worker. JESSIE alerted SW Crm Marketing Executive and HRO/Security for assistance in preparation for possible escalation of the conversation. -- Son arrived in pt's room. This worker and training HOD CARRIER presented to pt's room. HRO remained at doorway. SW offered to repeat information and answer any further questions. Son explained he phoned the insurance company again and spoke with a rep. from [facility] whom instructed son to file appeal of LCD, and once appeal is denied, insurance will cover pt at 100% at any SNF of pt's choosing; however, it can only be under the intent to return home; the facility will not cover residents who remain long line teamster at the facility; the pt must be considered inpatient, and insurance would cover inpatient rehab, not outpatient rehab. SW attempted to get clarification from son for each piece of information, however, son was unable to provide further explanation. SW stated although the insurance is giving different information than this worker, SW is still going to explain the appeal policy and payment policy [facility]. SW educated to appeal rights from [facility] and referenced [employer] that son was holding, as well as approx. $250/day with 30 days initial payment at admission to [facility]. SW did not continue to refute the information son had from insurance and agreed to procceed with each step and await the outcome from insurance. SW instructed son to notify this worker of [facility] case number once appeal is filed then medical records can be sent and processed. SW explained if pt/son want to pursue another SNF, to also notify this worker the following business day to make referrals in a timely manner. Son expressed understanding to both requests. -- JESSIE spoke with Director of Care Management as son contacted Director as well, to update on above. JESSIE updated Director of TCU. JESSIE will continue to follow for DC planning. Plan: DC 04/20, pending appeal, to [facility], pending insurance coverage. ALYSSA Cosme
[2023-04-17] MEDS: Rivaroxaban 20 MG Tablet PO (16:54)
--- NOTE | 2023-04-17 18:13 | CASEMGMT ---
Care Management: Call received from pt's son Elmer Roberson . who states the insurance is telling him differently than what has been explained to him by the TCU SW. Per Hossein, he contacted pt's insurance and discussed options with them and their 3rd alliance party prior auth company [employer] (call reference #[id number]). States he was advised to appeal the discharge to [facility] which he states he has completed ( ). States if he would not have appealed, he would have to pay room and board at [facility], if he did appeal and loses, then they will have the option to go to any inpatient rehabilitation facility where the room and board would be covered. This RN CM Director explained to pt's son the different levels of care with inpatient rehabilitation being a higher level of care than TCU or [facility] and that this LOC requires prior authorization from insurance. Pt's son confirms that this is what he was told by insurance and [employer]. Pt's son gave consent for this RN CM to contact pt's insurance to review referenced call to determine the level of care that was explained to pt's son. Pt's son states he will be reviewing [facility] tomorrow to determine if pt will be discharge there. This RN CM encouraged pt's son to speak with [facility] admissions staff on payment options with and without insurance. Pt's son expressed understanding although states they do not have the $8000 to pay upfront. JON Nguyen
--- NOTE | 2023-04-17 19:22 | DS.PCM_ITS ---
Providers Date of Admission: 03/29/23 Primary Care Physician: VU CelisC Reason For Visit: UROSEPSIS,UTI Diagnosis Discharge Diagnosis (1) Sepsis: Status: Resolved Code(s): A41.9 - Sepsis, unspecified organism (2) Urinary tract infection: Status: Resolved Code(s): N39.0 - Urinary tract infection, site not specified Qualifiers: Urinary tract infection type: site unspecified Hematuria presence: without hematuria Qualified Code(s): N39.0 - Urinary tract infection, site not specified (3) Encephalopathy acute: Status: Resolved Code(s): G93.40 - Encephalopathy, unspecified (4) Hypokalemia: Status: Acute Code(s): E87.6 - Hypokalemia (5) Hypertension: Status: Chronic Code(s): I10 - Essential (primary) hypertension (6) CVA (cerebral vascular accident): Status: Acute Code(s): I63.9 - Cerebral infarction, unspecified Qualifiers: CVA mechanism: unspecified Qualified Code(s): I63.9 - Cerebral infarction, unspecified (7) Right hemiplegia: Status: Acute Code(s): G81.91 - Hemiplegia, unspecified affecting right dominant side (8) Atrial fibrillation: Status: Acute Code(s): I48.91 - Unspecified atrial fibrillation (9) Neuropathic pain: Status: Acute Code(s): M79.2 - Neuralgia and neuritis, unspecified Plan 72 year old male with below past medical history hospitalized for sepsis, urin luis tract infection, complicated by encephalopathy, hypokalemia, admitted to TCU with debility, here for rehabilitation, strengthening, prior to discharge home with son. * Debility - PT/OT. * Pain - Tylenol 1000mg q8, Oxycodone 5mg q6h prn * Bowel - senna/colace 1 tablet bid prn. * Adult immunization - Administer pneumonia vaccine, covid vaccine, flu vaccine as appropriate. * DVT prophylaxis - on Xarelto. * Hypertension - Losartan 100mg daily, Amlodipine 10mg daily. * Stroke - Aspirin 81mg daily, Xarelto 20mg daily, failed Xarelto alone. * Atrial Fibrillation - Xarelto 20mg daily. * Hyperlipidemia - Atorvastatin 40mg qhs. * Urinary tract infection - Keflex 500mg q8 thru 04/01/2023. * Neuropathic pain - Gabapentin 100mg tidcm. * Skin irritation - Calmoseptine topical bid. * Tinea Corporis - Nystatin powder topical tid. * Hypokalemia - KCL 20meq bidcm. * Right lower extremity edema - Doppler ultrasound right lower extremity to rule out DVT. Medications at Discharge Home Medications rivaroxaban 20 mg tablet (Xarelto) 20 mg PO DINNER BLOOD THINNER #0 tabs 12/28/21 aspirin 81 mg chewable tablet 81 mg PO BREAKFAST blood thinner #0 tabs 01/31/23 acetaminophen 500 mg tablet 1,000 mg (2 x 500 mg) PO Q8 pain/fever #0 tabs 02/15/23 amlodipine 10 mg tablet 10 mg PO DAILY blood pressure 30 days #30 tabs 03/15/23 atorvastatin 40 mg tablet 40 mg PO QHS cholesterol 30 days #30 tabs 03/15/23 losartan 100 mg tablet 100 mg PO DAILY blood pressure 30 days #30 tabs 03/15/23 gabapentin 100 mg capsule 100 mg PO TIDCM nerve pain 30 days #90 caps 03/16/23 nystatin 100,000 unit/gram topical powder (Nyamyc) 1 applic topical TID fungal #0 grams 03/29/23 potassium chloride 20 mEq tablet,extended release(part/cryst) (Klor-Con M) 20 meq PO BIDCM potassium #0 tabs 03/29/23 Petrolatum 33% [Eucerin Eqivalent] 1 applic topical BID ##0 04/17/23 cephalexin 500 mg capsule 500 mg PO Q6 3 days #0 caps 04/17/23 doxycycline monohydrate 100 mg capsule 100 mg PO BID 3 days #0 caps 04/17/23 furosemide 40 mg tablet 40 mg PO DAILY 4 days #0 tabs 04/17/23 menthol 0.44 %-zinc oxide 20.6 % topical ointment (Calmoseptine) 1 applic topical BID #0 grams 04/17/23 oxycodone 5 mg tablet 5 mg PO Q6H PRN PRN Pain Score 6-10 3 days #12 tabs 04/17/23 sennosides 8.6 mg-docusate sodium 50 mg tablet (Stool Softener-Stimulant Laxative) 1 tab PO BID PRN CONSTIPATION #0 tabs 04/17/23 Hospital Course Operations None Procedures None Summary of Care Provided Minutes Spent on Discharge: 35 Hospital Course: 72 year old male with below past medical history hospitalized for sepsis, urinary tract infection, complicated by encephalopathy, hypokalemia, admitted to TCU with debility, here for rehabilitation, strengthening, prior to discharge home with son. 04/16/2023 Cellulitis bilateral lower extremities - Cephalexin 500mg q6, Doxycycline 100mg bid thru 04/23/2023. 04/17/2023 Edema - Furosemide 40mg daily thru 04/24/2023. Discharge 04/20/2023, pending appeal, to [facility], pending insurance coverage. Physical Exam Const alert General Appearance: cooperative HEENT normocephalic Eyes PERRL and EOMs intact bilaterally Neck supple, no JVD and no carotid bruits Resp normal respiratory effort, normal air movement and clear to auscultation bilaterally Cardio regular rate and regular rhythm GI normal to inspection, nondistended, normoactive bowel sounds, non-tender and non-distended Extremity normal capillary refill General Extremity: edema right Skin no rashes or lesions noted General Skin Exam: no breakdown Neuro Neuro Narrative: Right hemiplegia. Psych affect normal Appearance: appropriate Weight / BMI Weight Weight: 120.293 kg Body Mass Index (BMI) 42.7 ABG / Lab / Microbiology Data 04/13/23 05:19 04/13/23 05:19 Microbiology: Microbiology 04/09/23 05:07 Nasal Secretion SARS-CoV-2 Antigen (Rapid) - Final 04/05/23 05:00 Nasal Secretion SARS-CoV-2 Antigen (Rapid) - Final 04/02/23 04:21 Nasal Secretion SARS-CoV-2 Antigen (Rapid) - Final D/C Instructions Discharge Diet: No restrictions Discharge Activity: Return to Normal Activity, May Shower and Use Walker Weight Bearing Status: Weight bearing as tolerated Call your doctor if you observe: Fever of 101 or Higher, Inability to urinate, Inability to have a bowel movement, Shortness of breath, Dizziness, Fainting spells, Chest pain and Uncontrolled pain Additional Instructions: Discharge 04/20/2023, pending appeal, to [facility], pending insurance coverage. Meaningful Use Info Meaningful Use Diagnoses (Choose all that apply): None applicable Discharge Plan Admission Admit Date/Time: 11/30/23 13:22 Primary Reason for Your Visit: Debility. Attending Provider: Low Zheng Chi Primary Care Provider: Shanda Jensen NP Instructions Additional Instructions / Restrictions: Discharge 04/20/2023, pending appeal, to [facility], pending insurance coverage. Discharge Orders/Prescriptions Prescriptions: New doxycycline monohydrate 100 mg Capsule 100 mg PO BID 3 Days Qty: 0 0RF cephalexin 500 mg Capsule 500 mg PO Q6 3 Days Qty: 0 0RF oxycodone 5 mg Tablet 5 mg PO Q6H PRN PRN (Reason: Pain Score 6-10) 3 Days Qty: 12 0RF furosemide 40 mg Tablet 40 mg PO DAILY 4 Days Qty: 0 0RF menthol-zinc oxide [Calmoseptine] 0.44-20.6 % Ointment 1 applic topical BID Qty: 0 0RF Protocol: *Topical Application Instructions APPLICATION INSTRUCTIONS: buttocks sennosides-docusate sodium [Stool Softener-Stimulant Laxat] 8.6-50 mg Tablet 1 tab PO BID PRN (Reason: CONSTIPATION) Qty: 0 0RF Petrolatum 33% [Eucerin Eqivalent] 1 applic topical BID Qty: 0 0RF Continued Xarelto 20 mg Tablet 20 mg PO DINNER Qty: 0 0RF aspirin 81 mg Tablet,Chewable 81 mg PO BREAKFAST Qty: 0 0RF acetaminophen 500 mg Tablet 1,000 mg PO Q8 Qty: 0 0RF atorvastatin 40 mg Tablet 40 mg PO QHS 30 Days Qty: 30 0RF amlodipine 10 mg Tablet 10 mg PO DAILY 30 Days Qty: 30 0RF losartan 100 mg Tablet 100 mg PO DAILY 30 Days Qty: 30 0RF gabapentin 100 mg Capsule 100 mg PO TIDCM 30 Days Qty: 90 0RF potassium chloride [Klor-Con M20] 20 mEq Tablet,Er Particles/Crystals 20 meq PO BIDCM Qty: 0 0RF nystatin [Nyamyc] 100,000 unit/gram Powder 1 applic topical TID Qty: 0 0RF Protocol: *Topical Application Instructions APPLICATION INSTRUCTIONS: to folds Discontinued acetaminophen 325 mg Tablet 650 mg PO Q6H PRN PRN (Reason: Pain Score 1-5/Temp) Qty: 0 0RF cephalexin 500 mg Capsule 500 mg PO Q8 Qty: 11 0RF Rx Instructions: Give 11 doses starting the afternoon of 03/29/2023-2 doses to be given on 03/29/2023 oxycodone 5 mg Tablet 5 mg PO Q6H PRN PRN (Reason: Pain Score 6-10) 3 Days Qty: 12 0RF Referrals / Follow Up: Shanda Jensen NP, RESEARCH & ANALYTICS MANAGER-C [Primary Care Provider] - Disposition Disposition (needs filled in before D/C Order can be placed): NonSkilled NH/Intermed Care
--- NOTE | 2023-04-17 19:29 | TREXTCAR_ITS ---
Diet Diet Order/Speech Therapy: 03/30/23 10:49 Diet: Regular - General Is pt able to select menu?: Yes Routine Orders/Code Status Code Status: Full Code Wound(s) SCROTOM: Wound Type: Abrasion RT ABDOMAL FOLD: Wound Type: MOISTURE RELATED Dressing Change: nystatin powder RT KNEE: Wound Type: Abrasion CHRISTY ARMS: Wound Type: Abrasion RT THIGH: Wound Type: Abrasion BEHIND RT EAR: Wound Type: Abrasion FACE: Wound Type: Abrasion Therapies Weight Bearing: Weight bearing as tolerated Extremity Affected:: Bilateral Lower Physical Therapy: Eval and Treat Occupational Therapy: Eval and Treat Speech Therapy: Eval and Treat Problem/Diagnosis (1) Sepsis: Status: Resolved Code(s): A41.9 - Sepsis, unspecified organism (2) Urinary tract infection: Status: Resolved Code(s): N39.0 - Urinary tract infection, site not specified (3) Encephalopathy acute: Status: Resolved Code(s): G93.40 - Encephalopathy, unspecified (4) Hypokalemia: Status: Acute Code(s): E87.6 - Hypokalemia (5) Hypertension: Status: Chronic Code(s): I10 - Essential (primary) hypertension (6) CVA (cerebral vascular accident): Status: Acute Code(s): I63.9 - Cerebral infarction, unspecified (7) Right hemiplegia: Status: Acute Code(s): G81.91 - Hemiplegia, unspecified affecting right dominant side (8) Atrial fibrillation: Status: Acute Code(s): I48.91 - Unspecified atrial fibrillation (9) Neuropathic pain: Status: Acute Code(s): M79.2 - Neuralgia and neuritis, unspecified Plan 72 year old male with below past medical history hospitalized for sepsis, urinary tract infection, complicated by encephalopathy, hypokalemia, admitted to TCU with debility, here for rehabilitation, strengthening, prior to discharge home with son. * Debility - PT/OT. * Pain - Tylenol 1000mg q8, Oxycodone 5mg q6h prn * Bowel - senna/colace 1 tablet bid prn. * Adult immunization - Administer pneumonia vaccine, covid vaccine, flu vaccine as appropriate. * DVT prophylaxis - on Xarelto. * Hypertension - Losartan 100mg daily, Amlodipine 10mg daily. * Stroke - Aspirin 81mg daily, Xarelto 20mg daily, failed Xarelto alone. * Atrial Fibrillation - Xarelto 20mg daily. * Hyperlipidemia - Atorvastatin 40mg qhs. * Urinary tract infection - Keflex 500mg q8 thru 04/01/2023. * Neuropathic pain - Gabapentin 100mg tidcm. * Skin irritation - Calmoseptine topical bid. * Tinea Corporis - Nystatin powder topical tid. * Hypokalemia - KCL 20meq bidcm. * Right lower extremity edema - Doppler ultrasound right lower extremity to rule out DVT. Allergies/Procedures Done in Hospital Allergies ibuprofen [From Motrin] Adverse Reaction (Verified 03/23/23 19:20) Nausea Procedures: None Type of Care/Length of Stay Estimated LOS: Convalescent Care Less Than 30 days Type of Care Needed: Intermediate Rehab Potential: Fair Prognosis: Fair Additional Orders/Day of Discharge Additional Orders: part B therapies Day of Discharge: 04/20/23 Dietary and Speech Recommendations Dietitian Recommendations/Changes: Continue liberal regular per resident request. Discharge Plan Admission Admit Date/Time: 03/29/23 13:22 Primary Reason for Your Visit: Debility. Attending Provider: Low Zheng Chi Primary Care Provider: Shanda Jensen NP Instructions Additional Instructions / Restrictions: Discharge 04/20/2023, pending appeal, to [facility], pending insurance coverage. Discharge Orders/Prescriptions Prescriptions: New doxycycline monohydrate 100 mg Capsule 100 mg PO BID 3 Days Qty: 0 0RF cephalexin 500 mg Capsule 500 mg PO Q6 3 Days Qty: 0 0RF oxycodone 5 mg Tablet 5 mg PO Q6H PRN PRN (Reason: Pain Score 6-10) 3 Days Qty: 12 0RF furosemide 40 mg Tablet 40 mg PO DAILY 4 Days Qty: 0 0RF menthol-zinc oxide [Calmoseptine] 0.44-20.6 % Ointment 1 applic topical BID Qty: 0 0RF Protocol: *Topical Application Instructions APPLICATION INSTRUCTIONS: buttocks sennosides-docusate sodium [Stool Softener-Stimulant Laxat] 8.6-50 mg Tablet 1 tab PO BID PRN (Reason: CONSTIPATION) Qty: 0 0RF Petrolatum 33% [Eucerin Eqivalent] 1 applic topical BID Qty: 0 0RF Continued Xarelto 20 mg Tablet 20 mg PO DINNER Qty: 0 0RF aspirin 81 mg Tablet,Chewable 81 mg PO BREAKFAST Qty: 0 0RF acetaminophen 500 mg Tablet 1,000 mg PO Q8 Qty: 0 0RF atorvastatin 40 mg Tablet 40 mg PO QHS 30 Days Qty: 30 0RF amlodipine 10 mg Tablet 10 mg PO DAILY 30 Days Qty: 30 0RF losartan 100 mg Tablet 100 mg PO DAILY 30 Days Qty: 30 0RF gabapentin 100 mg Capsule 100 mg PO TIDCM 30 Days Qty: 90 0RF potassium chloride [Klor-Con M20] 20 mEq Tablet,Er Particles/Crystals 20 meq PO BIDCM Qty: 0 0RF nystatin [Nyamyc] 100,000 unit/gram Powder 1 applic topical TID Qty: 0 0RF Protocol: *Topical Application Instructions APPLICATION INSTRUCTIONS: to folds Discontinued acetaminophen 325 mg Tablet 650 mg PO Q6H PRN PRN (Reason: Pain Score 1-5/Temp) Qty: 0 0RF cephalexin 500 mg Capsule 500 mg PO Q8 Qty: 11 0RF Rx Instructions: Give 11 doses starting the afternoon of 03/29/2023-2 doses to be given on 03/29/2023 oxycodone 5 mg Tablet 5 mg PO Q6H PRN PRN (Reason: Pain Score 6-10) 3 Days Qty: 12 0RF Referrals / Follow Up: Shanda Jensen NP, SENIOR HUMAN RESOURCES REPRESENTATIVE-C [Primary Care Provider] - Disposition Disposition (needs filled in before D/C Order can be placed): NonSkilled NH/Intermed Care (2) Urinary tract infection Qualifiers: Urinary tract infection type: site unspecified Hematuria presence: without hematuria Qualified Code(s): N39.0 - Urinary tract infection, site not specified (6) CVA (cerebral vascular accident) Qualifiers: CVA mechanism: unspecified Qualified Code(s): I63.9 - Cerebral infarction, unspecified
[2023-04-17] MEDS: Furosemide 40 MG Tablet PO (19:43)
[2023-04-17 19:48] VITALS: BP 125/64; PULSE 75
[2023-04-17] MEDS: Atorvastatin Calcium 40 MG Tablet PO (21:42)
[2023-04-18 04:18] VITALS: BMI 42.7
[2023-04-18] MEDS: Cephalexin 500 MG Capsule PO ×4 (05:08→23:52)
[2023-04-18] MEDS: Nystatin Powder 15gm Bottle 1 APPLIC TOPICAL ×3 (05:09→21:13)
[2023-04-18] MEDS: Acetaminophen 500 MG Tablet 1000 MG PO ×3 (05:09→21:13)
[2023-04-18 06:00] VITALS: BMI 41.5
[2023-04-18] MEDS: Aspirin 81 MG TAB.CHEW PO (08:04)
[2023-04-18] MEDS: Potassium Chloride Oral Tablet 20 MEQ PO ×2 (08:04→17:03)
[2023-04-18] MEDS: Gabapentin 100 MG Capsule PO ×3 (08:04→17:03)
[2023-04-18] MEDS: Losartan Potassium 100 MG Tablet PO (10:44)
[2023-04-18] MEDS: Furosemide 40 MG Tablet PO (10:45)
[2023-04-18] MEDS: amLODIPine 10 MG Tablet PO (10:45)
[2023-04-18] MEDS: Doxycycline 100 MG CAPSULE PO ×2 (10:45→21:13)
[2023-04-18] MEDS: Menthol/Lanolin/Calamine/Znox 113 GM Tube 1 APPLIC TOPICAL ×2 (10:46→21:14)
[2023-04-18] MEDS: Petrolatum 33% Tube 1 APPLIC TOPICAL ×2 (10:46→21:14)
[2023-04-18 13:19] VITALS: BP 100/57; PULSE 70; RESP 18; TEMP 36.3; O2SAT 99
--- NOTE | 2023-04-18 15:06 | CASEMGMT ---
Care Management: This CM Director contacted pt's [facility] customer service line and reviewed with advocate Ria the information that was provided to the son. Per Ria, there is not documentation that a previous advocate had told pt's son that pt could go to a higher level of care if the appeal was denied. Documentation does state that pt would not be covered for a higher level of care and if additional SNF was needed, a prior authorization would need to be submitted. This Director explained pt has currently be cut from the SNF level of care. Ria stated that the intermediate level of care would be out of pocket. This Director attempted to contact pt's son Naeem and voicemail received. Message left with contact information and request for a return call to discuss the follow-up items from our discussion yesterday. Noted pt's medical record documentation has been submitted by HIM to [employer] and appeal is currently under review. Mony Xie RN [facility]
[2023-04-18 15:31] VITALS: BMI 41.5
--- NOTE | 2023-04-18 15:31 | CASEMGMT ---
CM Director Follow-up: Pt's son Naeem returned this technical writer's call. Relayed pt's medical record has been sent to [facility] for review corresponding to their request for appeal. Discussed information obtained from [facility] advocate including LOC's and corresponding coverage and noncoverage of services. Naeem continues to state they do not have the $8000 to pay upfront to the ECF. Discussed [facility] eligibilty and application. Naeem able to state that pt has approximately $2400 in his savings account and was told he would need to spend this down to qualify for [facility] and that is stupid to do to go to an ECF for a couple of weeks of care. Discussed other discharge options including [facility], other family supports (reports there are none), and intermittent skilled home health services. Naeem states he will contact the insurance again as what was explained by this technical writer is not consistent with what he was told and then he will discuss the options with his dad. Confirmed Naeem has this technical writer's contact information and encouraged him to call with additonal information or questions. Mony Xie RN [facility]
--- NOTE | 2023-04-18 16:39 | CASEMGMT ---
Addendum entered by Danica Ching 04/19/23 14:30: Clarification: Pt scored 15/15 on BIMS and 0/0 on PHQ-2 for MDS assessment. Original Note: Social Work: For MDS Assessment 15/15, PHQ 0/0 LEIA Boateng
[2023-04-18] MEDS: Rivaroxaban 20 MG Tablet PO (17:03)
--- NOTE | 2023-04-18 18:35 | CASEMGMT ---
Care Management: This Director received a call back from pt's son Naeem who left a voicemail message stating he contacted the insurance company and they relayed the same information that this data analyst report writer had stated. This included that inpatient rehabilitation is a higher level of care and would not be covered, and if pt's appeal was denied, pt would need to pay out of pocket at an ECF for intermediate LOC. Pt's son states he has spoken with the pt and they have decided that if they lose the appeal they will plan for pt to return home with intermittent skilled HHC services. This Director returned son's call and confirmed the above plan for home with HHC. Son is open to additional support information including lists of private duty [employer] and [facility]. Explained that this data analyst report writer will update JESSIE Mishra and request that information be provided to him tomorrow. Son in agreement and denies any additional needs at this time. Mony Xie RN [facility]
--- NOTE | 2023-04-18 19:45 | NURSING ---
Patient sitting up in recliner, A&Ox3, patient reports scrapping toes on bottom of bedside table. Skin assessed to bilat feet/toes. Skin tear with flap intact observed to right great toe 1cm L x 1cm W x 0.1 cm D, small amount red drainage observed. Skin tear observed to right foot second toe without skin flap 0.5cm L x 0.5cm Wx 0.1 cm D, small amount red drainage. Patient observed not wearing socks or shoes at this time, patient encouraged to wear gripper socks in an effort to promote safety and skin integrity, educated on increased risk of infection with compromised skin. -patient verbalizes understanding, pt. declines offer to place socks or shoes on feet, patient states I don't want them on, I don't like them. Drsg applied to toes as ordered. Denies further requests. No c/o pain. Call light in reach. No distress observed or reported.
[2023-04-18] MEDS: Atorvastatin Calcium 40 MG Tablet PO (21:13)
[2023-04-19] MEDS: oxyCODONE 5 MG Tablet PO ×2 (01:17→22:42)
[2023-04-19 05:00] VITALS: BMI 41.6
[2023-04-19] MEDS: Cephalexin 500 MG Capsule PO ×4 (05:21→22:42)
[2023-04-19] MEDS: Acetaminophen 500 MG Tablet 1000 MG PO ×3 (05:21→19:58)
[2023-04-19] MEDS: Nystatin Powder 15gm Bottle 1 APPLIC TOPICAL ×3 (05:22→19:59)
[2023-04-19 05:29] VITALS: BMI 41.6
[2023-04-19] MEDS: Potassium Chloride Oral Tablet 20 MEQ PO ×2 (08:41→17:17)
[2023-04-19] MEDS: Aspirin 81 MG TAB.CHEW PO (08:41)
[2023-04-19] MEDS: Gabapentin 100 MG Capsule PO ×3 (08:41→17:17)
[2023-04-19] MEDS: Doxycycline 100 MG CAPSULE PO ×2 (08:42→19:59)
[2023-04-19] MEDS: Losartan Potassium 100 MG Tablet PO (08:42)
[2023-04-19] MEDS: Petrolatum 33% Tube 1 APPLIC TOPICAL ×2 (08:42→20:00)
[2023-04-19] MEDS: amLODIPine 10 MG Tablet PO (08:42)
[2023-04-19] MEDS: Furosemide 40 MG Tablet PO (08:42)
[2023-04-19] MEDS: Menthol/Lanolin/Calamine/Znox 113 GM Tube 1 APPLIC TOPICAL ×2 (08:43→19:59)
--- NOTE | 2023-04-19 12:58 | CASEMGMT ---
Social Work SW received update from Director of that pt/son have agreed now that insurance is not paying for a SNF, that if pt loses appeal, pt will DC home and is requesting skilled HHC. JESSIE referred to [facility] agencies via [employer]. [facility] is the only accepting agency. JESSIE updated [facility]. SW to communicate with pt and son once appeal outcome is given to finalize DC plans. Plan: DC home with son 04/20, pending appeal, with [facility] PT/OT/SN/WESLEY/JESSIE. Danica Ching, ALYSSA VASQUEZW
[2023-04-19 14:47] VITALS: BP 114/67; PULSE 64; RESP 18; TEMP 36.4; O2SAT 96
[2023-04-19 17:00] VITALS: BMI 41.6
[2023-04-19] MEDS: Rivaroxaban 20 MG Tablet PO (17:17)
[2023-04-19] MEDS: Atorvastatin Calcium 40 MG Tablet PO (19:58)
[2023-04-20 03:22] VITALS: BMI 41.6
[2023-04-20] MEDS: Acetaminophen 500 MG Tablet 1000 MG PO (04:46)
[2023-04-20] MEDS: Cephalexin 500 MG Capsule PO ×2 (04:46→11:10)
[2023-04-20] MEDS: Nystatin Powder 15gm Bottle 1 APPLIC TOPICAL (04:47)
[2023-04-20 05:44] LABS: Absolute Lymphocyte Count 1.39 X10^3/uL (0.83-4.51); Absolute Neutrophil Count 4.8 X10^3/uL (2.0-7.7); Basophil# 0.03 X10^3/uL; Basophil% 0.4 % (0-1); Eosinophil# 1.07 X10^3/uL; Eosinophils% 13.3 % (0-5); Hematocrit 41.2 % (40-54); Hemoglobin 13.5 g/dL (13.0-16.5); Lymphocyte # 1.39 X10^3/ul (0.83-4.51); Lymphocyte % 17.3 % (19-41); Mean Corp Hgb Conc 32.8 g/dL (32-36); Mean Corpuscular Hgb 30.9 pg (27.0-32.0); Mean Corpuscular Volume 94.3 fL (80-94); Mean Platelet Vol. 9.6 fl (6.2-12.0); Monocyte% 8.7 % (0-10); NRBC Flagged by Analyzer 0 % (0-5); Neutrophil # 4.84 X10^3/uL (2.7-7.7); Neutrophil % 60.1 % (47-70); Platelet Count 208 K/mm3 (150-450); RBC Distribution Width CV 14.4 % (11.6-14.6); RBC Distribution Width SD 49.3 fl (35.1-43.9); Red Blood Count 4.37 M/mm3 (4.6-6.2); White Blood Count 8.1 K/mm3 (4.4-11.0)
[2023-04-20 06:09] LABS: Anion Gap 6 (5-15); BUN 17 mg/dL (7-18); BUN/Creat Ratio 18.3 RATIO (10-20); Calcium,Total 8.5 mg/dL (8.5-10.1); Chloride 110 mmol/L (98-107); Creatinine, Serum 0.93 mg/dL (0.70-1.30); EST Glomerular Filtration Rate 85 mL/min (>60); Est Glom Filt Rate - Afr Amer 103 mL/min (>60); Estimated Creatinine Clearance 63.84 ml/min; Glucose 89 mg/dL (74-106); Potassium 3.7 mmol/L (3.5-5.1); Sodium Level 141 mmol/L (136-145)
[2023-04-20] MEDS: Aspirin 81 MG TAB.CHEW PO (07:47)
[2023-04-20] MEDS: Gabapentin 100 MG Capsule PO ×2 (07:47→11:45)
[2023-04-20] MEDS: Losartan Potassium 100 MG Tablet PO (07:47)
[2023-04-20] MEDS: Potassium Chloride Oral Tablet 20 MEQ PO (07:47)
[2023-04-20] MEDS: amLODIPine 10 MG Tablet PO (07:48)
[2023-04-20] MEDS: Furosemide 40 MG Tablet PO (07:48)
[2023-04-20] MEDS: Doxycycline 100 MG CAPSULE PO (07:48)
[2023-04-20] MEDS: Petrolatum 33% Tube 1 APPLIC TOPICAL (07:50)
[2023-04-20] MEDS: Menthol/Lanolin/Calamine/Znox 113 GM Tube 1 APPLIC TOPICAL (07:50)
[2023-04-20 07:53] VITALS: BP 124/70; PULSE 69; RESP 18; TEMP 36.3; O2SAT 96
== END 2023-04-20 12:10 | disposition home health service (06) | DRG 690 ==
PROVIDERS: Admitting Provider Family Medicine Geriatric Medicine; PCP Nurse Practitioner Family; Visit Provider Family Medicine Geriatric Medicine
DX: N39.0 Urinary tract infection, site not specified (principal); I69.351 Hemiplegia and hemiparesis following cerebral infarction affecting right dominant side; L03.115 Cellulitis of right lower limb; L03.116 Cellulitis of left lower limb; B35.4 Tinea corporis; G62.9 Polyneuropathy, unspecified; I48.91 Unspecified atrial fibrillation; I10 Essential (primary) hypertension; E78.5 Hyperlipidemia, unspecified; E87.6 Hypokalemia; I25.10 Atherosclerotic heart disease of native coronary artery without angina pectoris; Z87.891 Personal history of nicotine dependence; Z79.899 Other long term (current) drug therapy; Z79.82 Long term (current) use of aspirin; Z79.01 Long term (current) use of anticoagulants; Z86.73 Personal history of transient ischemic attack (TIA), and cerebral infarction without residual deficits
CPT/HCPCS: 36415; 80048; 85025; 87811; 93971; 97110; 97116; 97162; 97166; 97530; 97535; 97802

== ENCOUNTER → 2023-03-30 | Outpatient (CLI) | payer MEDICARE, SELFPAY ==
--- NOTE | 2023-03-30 10:06 | VDLE_ITS ---
Reason For Study: Right leg swelling RIGHT GSV is normal. CFV is compressible, spontaneous, phasic, competent and demonstrates normal augmentation. FV is compressible, spontaneous, phasic, competent and demonstrates normal augmentation. POP V is compressible, spontaneous, phasic, competent and demonstrates normal augmentation. T/P Trunk is compressible. PTV is compressible. RT PerV is compressible. Procedure This is a venous duplex using B-mode, color flow and spectral Doppler. Exam performed portable in patient room. A preliminary report was called and/or faxed to TCU. VL/Venous Duplex US, Unilateral Interpretation Summary Deep veins of the right lower extremity are patent and compressible segmentally . There is no evidence of right lower extremity deep vein thrombosis. Valvular competence norbert ears intact within the proximal deep venous system on the right . The right great saphenous vein a ppears patent and compressible segmentally. Ordering Physician: Low Zheng Chi Referring Physician: Shanda Jensen Performed By: Irene Cai RVT
== END | disposition home or self-care (01) ==
LOC: CVS 10:05
PROVIDERS: PCP Nurse Practitioner Family; Referring Provider Family Medicine Geriatric Medicine; Visit Provider Family Medicine Geriatric Medicine
DX: R22.41 Localized swelling, mass and lump, right lower limb (principal)
CPT/HCPCS: 93971

== ENCOUNTER 2023-06-27 15:49 | Emergency (ER) | payer MEDICARE, SELFPAY ==
[2023-06-27 15:51] VITALS: BP 155/92; PULSE 57; RESP 18; TEMP 36.5; O2SAT 98; BMI 41.8
[2023-06-27 16:34] LABS: Absolute Lymphocyte Count 1.21 X10^3/uL (0.83-4.51); Absolute Neutrophil Count 8.5 X10^3/uL (2.0-7.7); Basophil# 0.03 X10^3/uL; Basophil% 0.3 % (0-1); Eosinophil# 0.32 X10^3/uL; Hematocrit 43.5 % (40-54); Hemoglobin 14.3 g/dL (13.0-16.5); Lymphocyte # 1.21 X10^3/ul (0.83-4.51); Lymphocyte % 11.2 % (19-41); Mean Corp Hgb Conc 32.9 g/dL (32-36); Mean Corpuscular Hgb 30.4 pg (27.0-32.0); Mean Corpuscular Volume 92.4 fL (80-94); Mean Platelet Vol. 10.3 fl (6.2-12.0); Monocyte# 0.75 X10^3/uL; NRBC Flagged by Analyzer 0 % (0-5); Neutrophil # 8.45 X10^3/uL (2.7-7.7); Neutrophil % 78.2 % (47-70); Platelet Count 230 K/mm3 (150-450); RBC Distribution Width CV 14.2 % (11.6-14.6); RBC Distribution Width SD 48.1 fl (35.1-43.9); Red Blood Count 4.71 M/mm3 (4.6-6.2); White Blood Count 10.8 K/mm3 (4.4-11.0)
--- NOTE | 2023-06-27 16:34 | EX.ED.DYSGE1 ---
HPI History of Present Illness Chief Complaint: Abn Labs Narrative Narrative: 72-year-old male sent to the emergency room for abnormal labs. He does not know what is abnormal. He states he had a recent admission for CHF exacerbation and was diuresed. He is on Lasix 40 mg twice daily. Patient states he was previously on potassium but has not been on this since has been discharged home. Has been out of the residential and hospital for a few weeks. He does have difficulty walking at baseline but is able to ambulate. Has been doing his basic ADLs at home. No fevers. His son states he seems a little off for himself but has been able to eat and drink normally. He is back to normal urine and stool. He has not had any falls or injury. Patient himself notes that he has had some cramping in his muscles but nothing acute. Denies any other pain except for the chronic pain in his lower extremities. Is on gabapentin and during his recent admission had this doubled. [facility] Medical History Adult failure to thrive Anomalous origin of coronary artery Anticoagulant long-term use Arthritis Atherosclerotic heart disease of [place] coronary artery without angina pectoris Atrial fibrillation Atrial fibrillation Benign neoplasm of middle ear, nasal cavity and accessory sinuses BPH (benign prostatic hyperplasia) Cardiac murmur, unspecified Cellulitis Cellulitis of right lower limb Cervical disc disease Chronic venous stasis dermatitis of both lower extremities CPAP (continuous positive airway pressure) dependence CVA (cerebral vascular accident) Debility Deep venous thrombosis Dyspnea on minimal exertion Essential (primary) hypertension Former smoker FTT (failure to thrive) in adult GERD (gastroesophageal reflux disease) Hemiplegia affecting right dominant side Hyperglycemia Hyperlipidemia Hypertension Leg pain Low back pain Lymphedema Lymphedema of both lower extremities New onset atrial fibrillation (03/24/20) 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 Obesity ANDREE (obstructive sleep apnea) Pain in right lower leg Pain of left great toe Pain of left lower extremity due to injury Pneumonia Rotator cuff tear arthropathy of right shoulder Skin ulcer of left great toe with fat layer exposed Sleep apnea Toe ulcer Traumatic hematoma of left lower leg Venous insufficiency Home Medications rivaroxaban 20 mg tablet (Xarelto) 20 mg PO DINNER BLOOD THINNER #0 tabs 12/28/21 [Rx Last Taken 10/29/23] aspirin 81 mg chewable tablet 81 mg PO BREAKFAST blood thinner #0 tabs 01/31/23 [Rx Last Taken 03/23/23] acetaminophen 500 mg tablet 1,000 mg (2 x 500 mg) PO Q8 pain/fever #0 tabs 02/15/23 [Rx Last Taken 03/23/23] amlodipine 10 mg tablet 10 mg PO DAILY blood pressure 30 days #30 tabs 03/15/23 [Rx Last Taken 03/23/23] atorvastatin 40 mg tablet 40 mg PO QHS cholesterol 30 days #30 tabs 03/15/23 [Rx Last Taken 03/22/23] losartan 100 mg tablet 100 mg PO DAILY blood pressure 30 days #30 tabs 03/15/23 [Rx Last Taken 03/23/23] gabapentin 100 mg capsule 100 mg PO TIDCM nerve pain 30 days #90 caps 03/16/23 [Rx Last Taken 03/23/23] nystatin 100,000 unit/gram topical powder (Nyamyc) 1 applic topical TID fungal #0 grams 03/29/23 [Rx Last Taken Unknown] potassium chloride 20 mEq tablet,extended release(part/cryst) (Klor-Con M) 20 meq PO BIDCM potassium #0 tabs 03/29/23 [Rx Last Taken Unknown] Petrolatum 33% [Eucerin Eqivalent] 1 applic topical BID ##0 04/17/23 [Rx Last Taken Unknown] cephalexin 500 mg capsule 500 mg PO Q6 3 days #0 caps 04/17/23 [Rx Last Taken Unknown] doxycycline monohydrate 100 mg capsule 100 mg PO BID 3 days #0 caps 04/17/23 [Rx Last Taken Unknown] furosemide 40 mg tablet 40 mg PO DAILY 4 days #0 tabs 04/17/23 [Rx Last Taken Unknown] menthol 0.44 %-zinc oxide 20.6 % topical ointment (Calmoseptine) 1 applic topical BID #0 grams 04/17/23 [Rx Last Taken Unknown] oxycodone 5 mg tablet 5 mg PO Q6H PRN PRN Pain Score 6-10 3 days #12 tabs 04/17/23 [Rx Last Taken Unknown] sennosides 8.6 mg-docusate sodium 50 mg tablet (Stool Softener-Stimulant Laxative) 1 tab PO BID PRN CONSTIPATION #0 tabs 04/17/23 [Rx Last Taken Unknown] cephalexin 500 mg tablet 500 mg PO Q6H 7 days #28 tabs 04/20/23 [Rx Last Taken Unknown] doxycycline hyclate 100 mg tablet 100 mg PO BID 7 days #14 tabs 04/20/23 [Rx Last Taken Unknown] furosemide 40 mg tablet 40 mg PO DAILY 7 days #7 tabs 04/20/23 [Rx Last Taken Unknown] Allergy/AdvReac Type Severity Reaction Status Date / Time ibuprofen [From Motrin] AdvReac Nausea Verified 06/27/23 15:50 Family History Mother CAD (coronary artery disease) Hypertension History of cardiac radiofrequency ablation Sister Hypertension Other Arthritis Surgical History H/O cervical spine surgery History of bursectomy History of carpal tunnel release History of carpal tunnel surgery History of coronary artery stent placement (11/29/10) History of coronary artery stent placement History of fusion of cervical spine History of herniorrhaphy History of removal of cyst History of transurethral resection of prostate Social History household members: other details: Older son Naeem. Smoking Status: Former smoker alcohol intake: never substance use type: does not use ROS ROS ED Constitutional Constitutional ED: Denies chills, fever(s) or sweats Eyes Eyes: Denies blurry vision or change in vision ENT ENT ED: Denies ear pain or sore throat Cardiovascular Cardiovascular: Denies chest pain, palpitations or racing heartbeat Respiratory/Chest Respiratory/Chest: Denies cough, dyspnea or sputum Gastrointestinal Gastrointestinal: Denies abdominal pain, constipation, diarrhea, nausea or vomiting Genitourinary Genitourinary ED: Denies dysuria, hematuria or urinary frequency Musculoskeletal Musculoskeletal: Reports myalgias; Denies arthralgias or neck pain Integumentary Denies abscess, Abrasions or rash Neurologic Neurologic: Denies headache(s), paresthesias or weakness Psychiatric Psychiatric: Denies anxiety, depression, suicidal ideation or suicidal thoughts Endocrine Endocrinology: Denies polydipsia or polyuria EXAM Physical Exam Const Vital Signs: 06/27/23 15:51 06/27/23 15:50 06/27/23 17:15 Temperature 97.7 F L 98 F Temperature Source Temporal Pulse Rate 57 L 62 Respiratory Rate 18 18 Respiratory Effort Normal Respiratory Pattern Normal Blood Pressure 155/92 H 168/89 H Blood Pressure Mean 113 115 Pulse Ox 98 97 Oxygen Delivery Method Room Air Positive well nourished General Appearance ED: NAD; Negative for pallor HEENT Reports moist mucous membranes Eyes PERRL and EOMs intact bilaterally Chest Wall inspection of chest normal Resp normal respiratory effort and clear to auscultation bilaterally Auscultation: Negative for rales, rhonchi or wheezes Cardio regular rate and regular rhythm GI normal to inspection, nondistended, normoactive bowel sounds Neuro oriented x3 and CN's II-XII intact bilaterally Sensorium / Orientation: alert Motor Exam: general weakness Psych mental status grossly normal Skin no rashes or lesions noted and no wounds General Skin Exam: Negative for jaundice or pallor MDM MDM MDM Narrative Medical decision making narrative: I was able to log into [facility] [employer], and I was able to find pertinent medical records available for review to compare to the patient's current lab/imaging/workup. Was able to see that the patient's potassium was 2.7. Patient have a minor symptoms of cramping. He was not told to take any extra potassium. He states he was not told at all what the abnormal lab value was. Otherwise vital signs are stable. He is afebrile. Son shows concerned that he is a little bit off today. Will obtain a chest x-ray and urinalysis as well as basic lab work. CBC shows normal white blood cell count 10.8. Hemoglobin 14.3. Platelets are normal at 230. Creatinine is normal at 1.11. Potassium is only slightly low at 3.2. Discussed with the family how this would be repleted orally and they have potassium at home. Recommend they call her PCP to get recommendations for potassium repletion chronically since he is on Lasix. Chest x-ray was obtained as the patient's son thought he was feeling a little off and chest x-ray on my interpretation shows no acute process. I did order a urinalysis but at this point the patient does not want to stay for testing and he will be discharged home. Impression: 1. Hypokalemia 2. Generalized weakness Lab Data Attestation: I reviewed the patient's lab results. Labs: Laboratory Results - last 24 hr 06/27/23 16:11 WBC 10.8 RBC 4.71 Hgb 14.3 Hct 43.5 MCV 92.4 MCH 30.4 MCHC 32.9 RDW Std Deviation 48.1 H RDW Coeff of Naz 14.2 Plt Count 230 MPV 10.3 Immature Gran % (Auto) 0.300 Neut % (Auto) 78.2 H Lymph % (Auto) 11.2 L [place] % (Auto) 7.0 Eos % (Auto) 3.0 Baso % (Auto) 0.3 Absolute Neuts (auto) 8.5 H Absolute Lymphs (auto) 1.21 Nucleated RBC % 0 Sodium 140 Potassium 3.2 L Chloride 105 Carbon Dioxide 29.0 Anion Gap 6 BUN 15 Creatinine 1.11 Estim Creat Clear Calc 71.53 Est GFR (MDRD) Af Amer 83 Est GFR (MDRD) Non-Af 69 BUN/Creatinine Ratio 13.5 Glucose 97 Calcium 9.1 Radiography Diagnostic Testing: Clinical Impression(s) from Imaging Studies Chest X-Ray 06/27/23 16:40 IMPRESSION: No acute radiographic abnormalities. Electronically Signed: Cristopher Ferrara MD at 16:53 EST , Discharge Plan Triage Chief Complaint: Abn Labs ED Provider: Obi Oropeza Dx/Rx/DC Orders Instructions: ED Hyperkalemia Prescriptions: No Action Xarelto 20 mg Tablet 20 mg PO DINNER Qty: 0 0RF aspirin 81 mg Tablet,Chewable 81 mg PO BREAKFAST Qty: 0 0RF acetaminophen 500 mg Tablet 1,000 mg PO Q8 Qty: 0 0RF atorvastatin 40 mg Tablet 40 mg PO QHS 30 Days Qty: 30 0RF amlodipine 10 mg Tablet 10 mg PO DAILY 30 Days Qty: 30 0RF losartan 100 mg Tablet 100 mg PO DAILY 30 Days Qty: 30 0RF gabapentin 100 mg Capsule 100 mg PO TIDCM 30 Days Qty: 90 0RF potassium chloride [Klor-Con M20] 20 mEq Tablet,Er Particles/Crystals 20 meq PO BIDCM Qty: 0 0RF nystatin [Nyamyc] 100,000 unit/gram Powder 1 applic topical TID Qty: 0 0RF Protocol: *Topical Application Instructions APPLICATION INSTRUCTIONS: to folds doxycycline monohydrate 100 mg Capsule 100 mg PO BID 3 Days Qty: 0 0RF cephalexin 500 mg Capsule 500 mg PO Q6 3 Days Qty: 0 0RF oxycodone 5 mg Tablet 5 mg PO Q6H PRN PRN (Reason: Pain Score 6-10) 3 Days Qty: 12 0RF furosemide 40 mg Tablet 40 mg PO DAILY 4 Days Qty: 0 0RF menthol-zinc oxide [Calmoseptine] 0.44-20.6 % Ointment 1 applic topical BID Qty: 0 0RF Protocol: *Topical Application Instructions APPLICATION INSTRUCTIONS: buttocks sennosides-docusate sodium [Stool Softener-Stimulant Laxat] 8.6-50 mg Tablet 1 tab PO BID PRN (Reason: CONSTIPATION) Qty: 0 0RF Petrolatum 33% [Eucerin Eqivalent] 1 applic topical BID Qty: 0 0RF cephalexin 500 mg tablet 500 mg PO Q6H 7 Days Qty: 28 0RF doxycycline hyclate 100 mg tablet 100 mg PO BID 7 Days Qty: 14 0RF furosemide 40 mg tablet 40 mg PO DAILY 7 Days Qty: 7 0RF Primary Care Provider: Shanda Jensen NP Referrals: Shanda Jensen NP, [employer] [Primary Care Provider] - Disposition Disposition: Home, Self Care
[2023-06-27 16:40] LABS: Anion Gap 6 (5-15); BUN 15 mg/dL (7-18); BUN/Creat Ratio 13.5 RATIO (10-20); Calcium,Total 9.1 mg/dL (8.5-10.1); Chloride 105 mmol/L (98-107); Creatinine, Serum 1.11 mg/dL (0.70-1.30); EST Glomerular Filtration Rate 69 mL/min (>60); Est Glom Filt Rate - Afr Amer 83 mL/min (>60); Estimated Creatinine Clearance 71.53 ml/min; Glucose 97 mg/dL (74-106); Potassium 3.2 mmol/L (3.5-5.1); Sodium Level 140 mmol/L (136-145)
--- NOTE | 2023-06-27 16:40 | RAD_ITS ---
INDICATION: weakness EXAMINATION/TECHNIQUE: X-RAY - XR Chest 1 View COMPARISON: None. FINDINGS: The lungs are clear. Tortuous and calcified thoracic aorta. The heart is mildly enlarged. No pleural effusion or pneumothorax. Degenerative changes of the thoracic spine. RAD/Chest 1 View (Portable) IMPRESSION: No acute radiographic abnormalities. Electronically Signed: Cristopher Ferrara MD at 16:53 EST ,
[2023-06-27 17:15] VITALS: BP 168/89; PULSE 62; RESP 18; TEMP 36.6; O2SAT 97
== END 2023-06-27 17:57 | disposition home or self-care (01) ==
PROVIDERS: Emergency Provider Student in an Organized Health Care Education/Training Program; PCP Nurse Practitioner Family; Visit Provider Student in an Organized Health Care Education/Training Program
DX: E87.6 Hypokalemia (principal); I11.0 Hypertensive heart disease with heart failure; I50.9 Heart failure, unspecified; I48.91 Unspecified atrial fibrillation; R53.1 Weakness; M79.605 Pain in left leg; M79.604 Pain in right leg; Z87.891 Personal history of nicotine dependence; G89.29 Other chronic pain; I25.10 Atherosclerotic heart disease of native coronary artery without angina pectoris; G47.33 Obstructive sleep apnea (adult) (pediatric); Z99.89 Dependence on other enabling machines and devices; E78.5 Hyperlipidemia, unspecified; Z79.01 Long term (current) use of anticoagulants; Z79.82 Long term (current) use of aspirin; Z79.899 Other long term (current) drug therapy; Z86.73 Personal history of transient ischemic attack (TIA), and cerebral infarction without residual deficits; Z95.5 Presence of coronary angioplasty implant and graft
CPT/HCPCS: 71045; 80048; 85025; 99282; A4216

== ENCOUNTER → 2023-06-27 | Outpatient (CLI) | payer MEDICARE, SELFPAY ==
[2023-06-27 13:34] LABS: Anion Gap 8 (5-15); BUN 17 mg/dL (7-18); Calcium,Total 9.1 mg/dL (8.5-10.1); Chloride 106 mmol/L (98-107); EST Glomerular Filtration Rate 78 mL/min (>60); Est Glom Filt Rate - Afr Amer 94 mL/min (>60); Glucose 131 mg/dL (74-106); Potassium 2.7 mmol/L (3.5-5.1); Sodium Level 140 mmol/L (136-145)
== END | disposition home or self-care (01) ==
LOC: LABSPEC 10:40
PROVIDERS: PCP Nurse Practitioner Family; Visit Provider Nurse Practitioner Family
DX: R60.0 Localized edema (principal)
CPT/HCPCS: 80048

== ENCOUNTER 2023-07-29 20:47 | Inpatient (IN) | payer MEDICARE, SELFPAY ==
[2023-07-29 20:46] VITALS: BP 136/122; PULSE 69; RESP 13; TEMP 36.7; O2SAT 95
[2023-07-29 20:47] VITALS: BP 136/122; PULSE 69; RESP 16; TEMP 36.7; O2SAT 93; BMI 37.5
[2023-07-29 21:02] VITALS: BP 133/84; PULSE 73; RESP 18; O2SAT 96
[2023-07-29] MEDS: Furosemide 100 MG/10 ML Vial 60 MG IV (21:29)
[2023-07-29 21:30] LABS: Absolute Lymphocyte Count 1.07 X10^3/uL (0.83-4.51); Absolute Neutrophil Count 7.8 X10^3/uL (2.0-7.7); Basophil# 0.05 X10^3/uL; Basophil% 0.5 % (0-1); Eosinophil# 0.36 X10^3/uL; Eosinophils% 3.6 % (0-5); Hematocrit 46.1 % (40-54); Hemoglobin 14.9 g/dL (13.0-16.5); Lymphocyte # 1.07 X10^3/ul (0.83-4.51); Lymphocyte % 10.6 % (19-41); Mean Corp Hgb Conc 32.3 g/dL (32-36); Mean Corpuscular Hgb 29.5 pg (27.0-32.0); Mean Corpuscular Volume 91.3 fL (80-94); Mean Platelet Vol. 10.2 fl (6.2-12.0); Monocyte# 0.75 X10^3/uL; Monocyte% 7.4 % (0-10); NRBC Flagged by Analyzer 0 % (0-5); Neutrophil # 7.84 X10^3/uL (2.7-7.7); Neutrophil % 77.6 % (47-70); Platelet Count 205 K/mm3 (150-450); RBC Distribution Width CV 14.5 % (11.6-14.6); RBC Distribution Width SD 48.2 fl (35.1-43.9); Red Blood Count 5.05 M/mm3 (4.6-6.2); White Blood Count 10.1 K/mm3 (4.4-11.0)
[2023-07-29 21:35] LABS: International Normalized Ratio 1.6; Prothrombin Time (Protime)PT. 19.3 SECONDS (11.7-14.9)
[2023-07-29 21:36] LABS: Partial Thromboplast Time 46.9 Seconds (24.1-36.2)
[2023-07-29 21:43] LABS: AST(SGOT) 22 U/L (15-37); Alanine Aminotransfer ALT/SGPT 28 U/L (16-61); Alkaline Phosphatase 91 U/L (45-117); Anion Gap 4 (5-15); BUN 14 mg/dL (7-18); BUN/Creat Ratio 13.2 RATIO (10-20); Bilirubin, Direct 0.32 mg/dL (0.00-0.30); Calcium,Total 8.7 mg/dL (8.5-10.1); Chloride 105 mmol/L (98-107); Creatinine, Serum 1.06 mg/dL (0.70-1.30); EST Glomerular Filtration Rate 73 mL/min (>60); Est Glom Filt Rate - Afr Amer 88 mL/min (>60); Estimated Creatinine Clearance 70.65 ml/min; Globulin 4.1 g/dL (2.2-4.2); Glucose 113 mg/dL (74-106); Lipase 21 U/L (13-75); Potassium 3.7 mmol/L (3.5-5.1); Protein, Total 7.1 g/dL (6.4-8.2); Sodium Level 138 mmol/L (136-145)
[2023-07-29 21:48] LABS: Lactic Acid 1.5 mmol/L (0.4-1.9)
[2023-07-29 21:53] VITALS: BP 122/81; PULSE 67; RESP 14; TEMP 36.9; O2SAT 97
[2023-07-29] MEDS: Piperacil/Tazobactam 4.5 GM in 0.9% Normal Saline (100mL MB+) 100 ML IV (22:16)
[2023-07-29 22:21] VITALS: BP 122/81; PULSE 67; RESP 16; TEMP 36.9; O2SAT 96
[2023-07-29] MEDS: Vancomycin HCl 2,000 MG in 0.9% Normal Saline (500mL Bag) 500 ML 250 MG IV (22:21)
--- NOTE | 2023-07-29 22:36 | PCM.HP.STD ---
[facility] - General General Date of Admission: 07/29/23 Date of Service: 07/29/23 Chief Complaint: Increasing Redness and Swelling of the LE's plus Rash in Groin. HPI Narrative TURNER ROBERSON, is a 72 M with a past medical history of essential hypertension, hyperlipidemia, obesity; with BMI of 37.5 this admission, obstructive sleep apnea; on CPAP, former tobacco abuse, paroxysmal atrial fibrillation (2019); on Xarelto, CAD; status post RAMAKRISHNA to OM-2 (2010), history of DVT, history of CHF, history of CVA; with subsequent Right hemiplegia, neuropathy, history of MRSA, history of UTI; with sepsis and encephalopathy with adult failure to thrive causing inpatient admission here from March 23, 2024 to March 29, 2024 with subsequent admission to TCU here until April 17, 2023, BPH; s/p TURP, chronic lower extremity lymphedema with chronic venous stasis and history of pressure ulcers of the right lower extremity, GERD, chronic tinea corporis, history of right rotator cuff tear and osteoarthritis; with history of C-spine surgery who presents to [facility] ER complaining of increasing redness and swelling of his lower extremities plus a worsening rash in his groin. Mr. Roberson reports his symptoms began approximately 3 days prior to admission with a gradual onset of increased bilateral lower extremity redness and swelling. Patient also admits to bullae formation in his legs with subsequent seeping from wounds and bleeding with soreness so severe that he was unable to walk without assistance so he activated EMS. There is no report of fever, chills, nausea or vomiting but he does admit to fecal and urinary incontinence and an acute worsening of his chronic tinea corporis that has extended into the area under his pannus and throughout his entire groin with correspond severe irritation and discomfort. In the ER he was diagnosed with bilateral lower extremity cellulitis; in the setting of known chronic lower extremity lymphedema with chronic venous stasis and history of MRSA complicated by severe acute on chronic tinea corporis exacerbated by fecal incontinence combining to cause generalized weakness with ambulatory dysfunction due to corresponding pain from both lower extremities and groin irritation and he was then admitted to the general medical floor for ongoing care for status expected to be greater than 48 hours. [facility] Medical History Adult failure to thrive Anomalous origin of coronary artery Anticoagulant long-term use Arthritis Atherosclerotic heart disease of [place] coronary artery without angina pectoris Atrial fibrillation Atrial fibrillation Benign neoplasm of middle ear, nasal cavity and accessory sinuses BPH (benign prostatic hyperplasia) Cardiac murmur, unspecified Cellulitis Cellulitis of right lower limb Cervical disc disease Chronic venous stasis dermatitis of both lower extremities CPAP (continuous positive airway pressure) dependence CVA (cerebral vascular accident) Debility Deep venous thrombosis Dyspnea on minimal exertion Essential (primary) hypertension Former smoker FTT (failure to thrive) in adult GERD (gastroesophageal reflux disease) Hemiplegia affecting right dominant side Hyperglycemia Hyperlipidemia Hypertension Leg pain Low back pain Lymphedema Lymphedema of both lower extremities New onset atrial fibrillation (03/24/20) 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 Obesity ANDREE (obstructive sleep apnea) Pain in right lower leg Pain of left great toe Pain of left lower extremity due to injury Pneumonia Rotator cuff tear arthropathy of right shoulder Skin ulcer of left great toe with fat layer exposed Sleep apnea Toe ulcer Traumatic hematoma of left lower leg Venous insufficiency Home Medications rivaroxaban 20 mg tablet (Xarelto) 20 mg PO DINNER BLOOD THINNER #0 tabs 12/28/21 [Rx Last Taken 02/25/23] acetaminophen 500 mg tablet 1,000 mg (2 x 500 mg) PO Q8 pain/fever #0 tabs 02/15/23 [Rx Last Taken 03/23/23] losartan 100 mg tablet 100 mg PO DAILY blood pressure 30 days #30 tabs 03/15/23 [Rx Last Taken 03/23/23] potassium chloride 20 mEq tablet,extended release(part/cryst) (Klor-Con M) 20 meq PO BIDCM potassium #0 tabs 03/29/23 [Rx Last Taken Unknown] furosemide 40 mg tablet 40 mg PO DAILY 4 days #0 tabs 04/17/23 [Rx Last Taken Unknown] menthol 0.44 %-zinc oxide 20.6 % topical ointment (Calmoseptine) 1 applic topical BID #0 grams 04/17/23 [Rx Last Taken Unknown] furosemide 40 mg tablet 40 mg PO DAILY 7 days #7 tabs 04/20/23 [Rx Last Taken Unknown] Petrolatum 33% [Eucerin Eqivalent] 1 applic topical BID PRN 07/29/23 [History Last Taken Unknown] gabapentin 100 mg capsule 200 mg PO TID nerve pain 07/29/23 [History Last Taken Unknown] Allergy/AdvReac Type Severity Reaction Status Date / Time diphenhydramine AdvReac Mild Abd Verified 07/29/23 21:01 [From Benadryl] cramps/diarrhea ibuprofen [From Motrin] AdvReac Nausea Verified 07/29/23 21:01 Family History Mother CAD (coronary artery disease) Hypertension History of cardiac radiofrequency ablation Sister Hypertension Other Arthritis Surgical History H/O cervical spine surgery History of bursectomy History of carpal tunnel release History of carpal tunnel surgery History of coronary artery stent placement (11/29/10) History of coronary artery stent placement History of fusion of cervical spine History of herniorrhaphy History of removal of cyst History of transurethral resection of prostate Social History household members: other details: Older son Naeem. Smoking Status: Former smoker alcohol intake: never substance use type: does not use ROS ROS Narrative Review of systems: Constitutional: Patient denies fevers or chills. Eyes: Patient denies change in vision or discharge from eyes. ENT: Patient denies ear pain, runny nose or sore throat. Cardiovascular: Patient denies chest pain, palpitations or racing heartbeat. Respiratory: Patient denies shortness of breath or cough. Gastrointestinal: Patient admits to fecal and urinary incontinence but denies abdominal pain, diarrhea, nausea or vomiting. Genitourinary: Patient admits to pain and excoriation in inguinal, rectal and pelvic regions with intermittent bleeding noted as per HPI. Musculoskeletal: Patient admits to bilateral lower extremity swelling, redness and pain but denies arthralgias or myalgias. Integumentary: Patient admits to rash in groin and in the folds of his pannus but denies abscess. Neurologic: Patient denies headache, paresthesias or focal neurologic weakness. Psychiatric: Patient denies uncontrolled depression or anxiety. Endocrine: Patient denies polyuria, polydipsia or polyphagia. Allergic: Patient denies lip swelling, tongue swelling or urticaria. Hematology: Patient admits to bleeding from groin rash but denies obvious blood in stools or urine. 14 point review of systems otherwise negative except for positives noted above in HPI. Vital Signs Vital Signs Vital Signs: 07/29/23 20:47 07/29/23 20:46 07/29/23 21:02 Temperature 98.1 F 98.1 F Temperature Source Oral Oral Pulse Rate 69 69 73 Respiratory Rate 16 13 18 Blood Pressure 136/122 H 136/122 H 133/84 H Blood Pressure Mean 126 126 100 Pulse Ox 93 95 96 Oxygen Delivery Method Room Air Room Air Room Air 07/29/23 22:21 07/29/23 21:53 Temperature 98.4 F 98.4 F Temperature Source Oral Pulse Rate 67 67 Respiratory Rate 16 14 Blood Pressure 122/81 H 122/81 H Blood Pressure Mean 94 94 Pulse Ox 96 97 Oxygen Delivery Method Room Air Weight Weight: 232 lb 9.403 oz Body Mass Index (BMI) 37.5 Physical Exam Const alert, oriented x3 and no apparent distress Constitutional Narrative: Patient is morbidly obese. General Appearance: cooperative HEENT normocephalic, head/scalp atraumatic, hearing grossly normal bilaterally and moist oral mucous membranes Eyes PERRL and EOMs intact bilaterally Neck no lymphadenopathy and supple Resp normal respiratory effort, no retractions, no use of accessory muscles and clear to auscultation bilaterally Cardio regular rate and regular rhythm GI normal to inspection, nondistended, normoactive bowel sounds, soft to palpation, non-tender and non-distended Extremity Extremity Narrative: Right greater than left lower extremity edema with chronic venous stasis changes of the skin and severe erythema from the knee down on both lower extremities. Skin Skin Narrative: Patient has significant excoriation of the skin with inflammation and dried blood underneath abdominal skin fold into the inguinal pelvic and perineal region. There is a strong smell of urine and yeast with apparently poor hygiene. Neuro oriented x3, CN's II-XII intact bilaterally, moves all extremities and no focal motor deficits Sensorium / Orientation: awake, alert, oriented to person, oriented to place and oriented to time Speech: speech normal Psych affect normal Results Medical Records Data Attestation: I reviewed the patient's medical records Lab / Micro Data Attestation: I reviewed the patient's lab results. 07/29/23 20:55 07/29/23 20:55 Labs: Laboratory Results - last 24 hr 07/29/23 20:55: WBC 10.1, RBC 5.05, Hgb 14.9, Hct 46.1, MCV 91.3, MCH 29.5, MCHC 32.3, RDW Std Deviation 48.2 H, RDW Coeff of Naz 14.5, Plt Count 205, MPV 10.2, Immature Gran % (Auto) 0.300, Neut % (Auto) 77.6 H, Lymph % (Auto) 10.6 L, [place] % (Auto) 7.4, Eos % (Auto) 3.6, Baso % (Auto) 0.5, Absolute Neuts (auto) 7.8 H, Absolute Lymphs (auto) 1.07, Nucleated RBC % 0, PT 19.3 H, INR 1.6, APTT 46.9 H, Sodium 138, Potassium 3.7, Chloride 105, Carbon Dioxide 29.0, Anion Gap 4 L, BUN 14, Creatinine 1.06, Estim Creat Clear Calc 70.65, Est GFR (MDRD) Af Amer 88, Est GFR (MDRD) Non-Af 73, BUN/Creatinine Ratio 13.2, Glucose 113 H, Lactic Acid 1.5, Calcium 8.7, Total Bilirubin 1.10 H, Direct Bilirubin 0.32 H, AST 22, ALT 28, Alkaline Phosphatase 91, Total Protein 7.1, Albumin 3.0 L, Globulin 4.1, Lipase 21 Assessment & Plan Assessment/Plan (1) Bilateral cellulitis of lower leg: (2) Lymphedema: (3) Chronic venous stasis dermatitis: (4) Tinea cruris: (5) Generalized weakness: (6) Ambulatory dysfunction: PLAN: Plan 1. Bilateral lower extremity cellulitis with bullae formation causing seeping and bleeding from wounds due to suspected MRSA in the setting of known chronic lower extremity lymphedema with chronic venous stasis dermatitis - Admit to general medical floor under telemetric monitoring under contact precautions. Continue broad-spectrum antibiotics with IV vancomycin and IV Zosyn and await culture and sensitivity data. Patient already on Xarelto for #6 making DVT unlikely in this case. Give Tylenol as needed for [id number] (level 1-5 out of 10) pain or fever. Give morphine IV as needed for severe (level 6-10 out of 10) pain. 2. Acute exacerbation of chronic tinea corporis recently made worse by fecal incontinence complicating #1 - Start nystatin powder to groin and pannus folds 3 times daily. Finally, due to severity of patient's condition we will consult the wound nurse to see this patient on rounds in the a.m. for further recommendations with appreciated in advance. 3. Generalized weakness with ambulatory dysfunction due to corresponding pain from both lower extremities and groin irritation compounding #1 & #2 - PT/OT and case management to consult and treat on rounds in the a.m. for recommendations regarding possible ECF placement with help appreciated in advance. 4. Obesity; with BMI of 37.5 this admission plus obstructive sleep apnea; on CPAP adding to the pathology of #1 - #3 - Weight loss will be recommended. Check TSH. Continue nocturnal CPAP as previous. 5. History of DVT; with right greater than left lower extremity edema - Noted with patient already on Xarelto for #6. We will check lower extremity Doppler this admission in the unlikely case of treatment failure of this agent. 6. History of UTI; with sepsis and encephalopathy with adult failure to thrive causing inpatient admission here from March 23, 2024 to March 29, 2024 with subsequent admission to TCU here until April 17, 2023 - Noted. 7. History of CVA; with subsequent Right hemiplegia - Noted with PT and OT consults pending as this will likely complicate patient's course and prognosis. 8. Paroxysmal atrial fibrillation (2019); on Xarelto - Resume Xarelto as previous. 9. Chronic neuropathy - Keep scheduled gabapentin as before. 10. Essential hypertension - Continue home medications plus add as needed IV hydralazine for systolic blood pressure greater than 160 mmHg. 11. Hyperlipidemia - Resume statin. 12. Former tobacco abuse - Noted. 13. CAD; status post RAMAKRISHNA to OM-2 (2010) - Stable. 14. History of CHF - Check BNP. Otherwise, we will continue supportive care. 15. BPH; s/p TURP - Noted. 16. History of right rotator cuff tear - Noted. 17. Osteoarthritis; with history of C-spine surgery - Stable. Give Tylenol prn. 18. DVT prophylaxis - Patient is already on Xarelto for #7 which will be continued. Total time: Approximately 75 minutes. Charges/Coding Visit Charges Inpatient E&M: 45883 Init Hosp L3
[2023-07-29 23:00] VITALS: BP 129/86; PULSE 68; RESP 18; TEMP 36.9; O2SAT 94
[2023-07-29] MEDS: Morphine 2 MG/ML Syringe IV (23:41)
[2023-07-30] VITALS: BP 127/85; PULSE 76; RESP 18; TEMP 36.2; O2SAT 99
[2023-07-30 00:07] VITALS: BMI 39.4
--- NOTE | 2023-07-30 00:30 | EX.ED.DYSGE1 ---
HPI History of Present Illness Chief Complaint: Wound Informant: patient, family and EMS Narrative Narrative: 72-year-old male presenting to the emergency room out of concerns for lower extremity cellulitis. Patient has multiple medical problems including atrial fibrillation prior stroke chronic lymphedema with venous stasis changes chronic fungal infection in the inguinal region. He states that about 3 days ago he began to have increased pain and swelling to the bilateral lower extremities. Right leg is more swollen than the left which she states is chronic for him. The redness has worsened as has the pain and swelling. Now he has developed bullae. States he is unable to walk and so called EMS. No reported fevers. He notes particularly the toes and the foot of the right are more warm and more red than normal. He has some fecal incontinence and urinary continence which is made his inguinal region more painful and inflamed. He does note a history of MRSA. [facility] Medical History Adult failure to thrive Anomalous origin of coronary artery Anticoagulant long-term use Arthritis Atherosclerotic heart disease of [place] coronary artery without angina pectoris Atrial fibrillation Atrial fibrillation Benign neoplasm of middle ear, nasal cavity and accessory sinuses BPH (benign prostatic hyperplasia) Cardiac murmur, unspecified Cellulitis Cellulitis of right lower limb Cervical disc disease Chronic venous stasis dermatitis of both lower extremities CPAP (continuous positive airway pressure) dependence CVA (cerebral vascular accident) Debility Deep venous thrombosis Dyspnea on minimal exertion Essential (primary) hypertension Former smoker FTT (failure to thrive) in adult GERD (gastroesophageal reflux disease) Hemiplegia affecting right dominant side Hyperglycemia Hyperlipidemia Hypertension Leg pain Low back pain Lymphedema Lymphedema of both lower extremities New onset atrial fibrillation (03/24/20) 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 Obesity ANDREE (obstructive sleep apnea) Pain in right lower leg Pain of left great toe Pain of left lower extremity due to injury Pneumonia Rotator cuff tear arthropathy of right shoulder Skin ulcer of left great toe with fat layer exposed Sleep apnea Toe ulcer Traumatic hematoma of left lower leg Venous insufficiency Home Medications rivaroxaban 20 mg tablet (Xarelto) 20 mg PO DINNER BLOOD THINNER #0 tabs 12/28/21 [Rx Last Taken 02/25/23] acetaminophen 500 mg tablet 1,000 mg (2 x 500 mg) PO Q8 pain/fever #0 tabs 02/15/23 [Rx Last Taken 03/23/23] losartan 100 mg tablet 100 mg PO DAILY blood pressure 30 days #30 tabs 03/15/23 [Rx Last Taken 03/23/23] potassium chloride 20 mEq tablet,extended release(part/cryst) (Klor-Con M) 20 meq PO BIDCM potassium #0 tabs 03/29/23 [Rx Last Taken Unknown] furosemide 40 mg tablet 40 mg PO DAILY 4 days #0 tabs 04/17/23 [Rx Last Taken Unknown] menthol 0.44 %-zinc oxide 20.6 % topical ointment (Calmoseptine) 1 applic topical BID #0 grams 04/17/23 [Rx Last Taken Unknown] furosemide 40 mg tablet 40 mg PO DAILY 7 days #7 tabs 04/20/23 [Rx Last Taken Unknown] Petrolatum 33% [Eucerin Eqivalent] 1 applic topical BID PRN 07/29/23 [History Last Taken Unknown] gabapentin 100 mg capsule 200 mg PO TID nerve pain 07/29/23 [History Last Taken Unknown] Allergy/AdvReac Type Severity Reaction Status Date / Time diphenhydramine AdvReac Mild Abd Verified 07/29/23 21:01 [From Benadryl] cramps/diarrhea ibuprofen [From Motrin] AdvReac Nausea Verified 07/29/23 21:01 Family History Mother CAD (coronary artery disease) Hypertension History of cardiac radiofrequency ablation Sister Hypertension Other Arthritis Surgical History H/O cervical spine surgery History of bursectomy History of carpal tunnel release History of carpal tunnel surgery History of coronary artery stent placement (11/29/10) History of coronary artery stent placement History of fusion of cervical spine History of herniorrhaphy History of removal of cyst History of transurethral resection of prostate Social History household members: other details: Older son Naeem. Smoking Status: Former smoker alcohol intake: never substance use type: does not use ROS ROS ED ROS Narrative Generalized weakness unable to walk secondary to lower extremity pain Constitutional Constitutional ED: Denies chills, fever(s) or weight loss Eyes Eyes: Denies change in vision or diplopia ENT ENT ED: Denies ear pain, rhinorrhea or sore throat Cardiovascular Cardiovascular: Denies chest pain, orthopnea, palpitations or racing heartbeat Respiratory/Chest Respiratory/Chest: Denies cough, dyspnea or orthopnea Gastrointestinal Gastrointestinal: Reports other Details: Fecal urinary incontinence ; Denies abdominal pain, diarrhea, nausea or vomiting Genitourinary Genitourinary ED: Reports other Details: Pain and excoriation of the inguinal pelvic rectal regions. Some of these areas have been bleeding. ; Denies dysuria, hematuria or urinary frequency Musculoskeletal Musculoskeletal: Reports other Details: Bilateral lower extremity swelling pain redness ; Denies arthralgias or myalgias Integumentary Reports rash; Denies abscess Neurologic Neurologic: Denies headache(s) or weakness Psychiatric Psychiatric: Denies anxiety, depression, suicidal ideation or suicidal thoughts Endocrine Endocrinology: Denies polydipsia, polyphagia or polyuria Allergic/Immunologic Allergic/Immunologic ED: Denies mouth swelling, tongue swelling or urticaria EXAM Physical Exam Const Vital Signs: 07/29/23 20:47 07/29/23 20:46 07/29/23 21:02 Temperature 98.1 F 98.1 F Temperature Source Oral Oral Pulse Rate 69 69 73 Respiratory Rate 16 13 18 Blood Pressure 136/122 H 136/122 H 133/84 H Blood Pressure Mean 126 126 100 Pulse Ox 93 95 96 Oxygen Delivery Method Room Air Room Air Room Air 07/29/23 22:21 07/29/23 21:53 07/29/23 23:00 Temperature 98.4 F 98.4 F 98.5 F Temperature Source Oral Oral Pulse Rate 67 67 68 Respiratory Rate 16 14 18 Blood Pressure 122/81 H 122/81 H 129/86 H Blood Pressure Mean 94 94 100 Pulse Ox 96 97 94 Oxygen Delivery Method Room Air Room Air Positive well nourished, well developed and obese General Appearance ED: well developed Nutritional Appearance: obese HEENT Reports normocephalic, head/scalp atraumatic and moist mucous membranes Eyes PERRL and EOMs intact bilaterally Neck no lymphadenopathy, supple and no JVD Resp normal respiratory effort and clear to auscultation bilaterally Cardio regular rate and regular rhythm Heart Sounds: murmur systolic GI normal to inspection, nondistended, normoactive bowel sounds and non-tender Palpation: soft Narrative: There is significant excoriation skin inflammation and dried blood underneath the abdominal skin fold into the inguinal pelvic perineal region. Strong smell of urine and yeast. Back/Spine no CVA tenderness and normal ROM Extremity Extremity Narrative: Right greater than left lower extremity edema. There is venous stasis skin changes. There is significant erythema from the feet up to around the level of the tibial tuberosity. General Extremety ED: Yes edema General Extremity: edema bilateral lower extremity Details: severe Neuro oriented x3 and CN's II-XII intact bilaterally Sensorium / Orientation: alert Psych Mood & Affect: depressed and tearful Skin Skin Narrative: See lower extremity examination MDM MDM MDM Narrative Medical decision making narrative: Basic blood work was obtained and fairly unremarkable. Lactic acid 1.5 creatinine 1.06 INR 1.6 PTT 46.9. He is chronically anticoagulated on Xarelto. Blood cultures were obtained. He started on broad-spectrum antibiotics with vancomycin and Zosyn. Received Lasix. Plan is admission into the hospital. History & Record Review Discussion w/independent historian: EMS personnel, Patient and Family Lab Data Attestation: I reviewed the patient's lab results. Labs: Laboratory Results - last 24 hr 07/29/23 20:55 WBC 10.1 RBC 5.05 Hgb 14.9 Hct 46.1 MCV 91.3 MCH 29.5 MCHC 32.3 RDW Std Deviation 48.2 H RDW Coeff of Naz 14.5 Plt Count 205 MPV 10.2 Immature Gran % (Auto) 0.300 Neut % (Auto) 77.6 H Lymph % (Auto) 10.6 L [place] % (Auto) 7.4 Eos % (Auto) 3.6 Baso % (Auto) 0.5 Absolute Neuts (auto) 7.8 H Absolute Lymphs (auto) 1.07 Nucleated RBC % 0 PT 19.3 H INR 1.6 APTT 46.9 H Sodium 138 Potassium 3.7 Chloride 105 Carbon Dioxide 29.0 Anion Gap 4 L BUN 14 Creatinine 1.06 Estim Creat Clear Calc 70.65 Est GFR (MDRD) Af Amer 88 Est GFR (MDRD) Non-Af 73 BUN/Creatinine Ratio 13.2 Glucose 113 H Lactic Acid 1.5 Calcium 8.7 Total Bilirubin 1.10 H Direct Bilirubin 0.32 H AST 22 ALT 28 Alkaline Phosphatase 91 Total Protein 7.1 Albumin 3.0 L Globulin 4.1 Lipase 21 Discharge Plan Dx/Rx/DC Orders Clinical Impression: Candidiasis of skin, Bilateral cellulitis of lower leg, Chronic anticoagulation, Lymphedema Disposition Disposition: Acute Care Hospital [facility] Discharge Date/Time: 07/29/23 23:43
[2023-07-30] MEDS: 0.9% Normal Saline (1000mL) 1,000 ML 50 ML IV (00:43)
--- NOTE | 2023-07-30 01:40 | PCM.RX.CS ---
Consult Antibiotic Management Pharmacy has been consulted to manage selected antibiotic: Vancomycin Type of Intervention Type of Consult: New start Suspected Infection Suspected Infection: Skin/Soft tissue Labs Labs: Sodium 138 mmol/L (136-145) 07/29/23 20:55 Potassium 3.7 mmol/L (3.5-5.1) 07/29/23 20:55 Chloride 105 mmol/L (98-107) 07/29/23 20:55 Carbon Dioxide 29.0 mmol/L (21.0-32.0) 07/29/23 20:55 Anion Gap 4 (5-15) L 07/29/23 20:55 BUN 14 mg/dL (7-18) 07/29/23 20:55 Creatinine 1.06 mg/dL (0.70-1.30) 07/29/23 20:55 Est GFR (MDRD) Af Amer 88 mL/min (>60) 07/29/23 20:55 Est GFR (MDRD) Non-Af 73 mL/min (>60) 07/29/23 20:55 BUN/Creatinine Ratio 13.2 RATIO (10-20) 07/29/23 20:55 Glucose 113 mg/dL (74-106) H 07/29/23 20:55 Dosing Weight Weight used for dosin.7 kg Estimated Creatinine Clearance Estimated Creatinine Clearance: 71 Goal Trough Goal Trough: 15-20 mcg/mL Pharmacy Plan for Drug Dosing Pharmacy Plan for Drug Dosing: Pharmacy Service will continue to monitor and adjust dosing as required. Follow-Up Labs Follow-Up Labs: Trough: Vancomycin Date/Time Labs Ordered Labs to be done on [date and time ordered]: 07/31/23 @1000
--- NOTE | 2023-07-30 03:21 | VDLE_ITS ---
Reason For Study: Bilateral leg swelling RIGHT LEFT GSV is normal. GSV is normal. CFV is compressible, spontaneous, phasic, CFV is compressible, spontaneous, phasic, competent and demonstrates normal competent, and demonstrates normal augmentation. augmentation. FV is compressible, spontaneous, phasic, FV is compressible, spontaneous, phasic, competent and demonstrates normal competent and demonstrates normal augmentation. augmentation. FV mid-distal visualized with color only, POP V is compressible, spontaneous, phasic, appear patent. Patient unable to tolerate competent and demonstrates normal compression. augmentation. POP V is compressible, spontaneous, phasic, T/P Trunk is compressible. competent and demonstrates normal PTV is compressible. augmentation. LT PerV is compressible. T/P Trunk is compressible. PTV is compressible. RT PerV is compressible. Procedure This is a venous duplex using B-mode, color flow and spectral Doppler. Exam performed in department. A preliminary report was called and/or faxed to Dr. Torres. VL/Venous Duplex US - Dominic Extrem Interpretation Summary Deep veins of the bilateral lower extremities are patent and compressible segme ntally. There is no evidence of bilateral lower extremity deep vein thrombosis. The bilateral great saphenous veins appear patent and compressible segmentally. Ordering Physician: Bari Resendez Referring Physician: Shanda Jensen Performed By: Irene Cai RVT
[2023-07-30] MEDS: 0.9% Saline Lock 10 ML Syringe IV ×3 (04:15→17:07)
[2023-07-30] MEDS: Morphine 2 MG/ML Syringe IV ×3 (04:15→17:09)
[2023-07-30 04:22] VITALS: BP 127/81; PULSE 78; RESP 18; TEMP 37.2; O2SAT 98
[2023-07-30 05:36] VITALS: BMI 39.9
[2023-07-30] MEDS: Piperacil/Tazobactam 3.375 GM in 0.9% Normal Saline (50mL MB+) 50 ML IV ×2 (06:02→14:17)
[2023-07-30] MEDS: Nystatin Ointment 1 APPLIC TOPICAL ×3 (06:02→22:04)
[2023-07-30] MEDS: Gabapentin 100 MG Capsule 200 MG PO ×3 (06:02→22:03)
[2023-07-30 07:09] LABS: Absolute Lymphocyte Count 0.68 X10^3/uL (0.83-4.51); Absolute Neutrophil Count 7.1 X10^3/uL (2.0-7.7); Basophil# 0.03 X10^3/uL; Basophil% 0.3 % (0-1); Eosinophil# 0.38 X10^3/uL; Eosinophils% 4.3 % (0-5); Hemoglobin 14.3 g/dL (13.0-16.5); Lymphocyte # 0.68 X10^3/ul (0.83-4.51); Lymphocyte % 7.7 % (19-41); Mean Corp Hgb Conc 33.3 g/dL (32-36); Mean Corpuscular Hgb 29.8 pg (27.0-32.0); Mean Corpuscular Volume 89.6 fL (80-94); Mean Platelet Vol. 9.7 fl (6.2-12.0); Monocyte# 0.61 X10^3/uL; Monocyte% 6.9 % (0-10); NRBC Flagged by Analyzer 0 % (0-5); Neutrophil # 7.12 X10^3/uL (2.7-7.7); Neutrophil % 80.5 % (47-70); Platelet Count 206 K/mm3 (150-450); RBC Distribution Width CV 14.3 % (11.6-14.6); RBC Distribution Width SD 47.3 fl (35.1-43.9); White Blood Count 8.9 K/mm3 (4.4-11.0)
[2023-07-30 07:16] VITALS: BP 114/73; PULSE 87; RESP 17; TEMP 36.9; O2SAT 94
[2023-07-30 07:45] LABS: ALB/GLOB Ratio 0.8 RATIO (0.9-2.4); AST(SGOT) 16 U/L (15-37); Alanine Aminotransfer ALT/SGPT 22 U/L (16-61); Albumin, Serum 2.8 g/dL (3.2-5.0); Alkaline Phosphatase 79 U/L (45-117); Anion Gap 7 (5-15); BUN 14 mg/dL (7-18); BUN/Creat Ratio 13.2 RATIO (10-20); Calcium,Total 8.3 mg/dL (8.5-10.1); Chloride 105 mmol/L (98-107); Creatinine, Serum 1.06 mg/dL (0.70-1.30); EST Glomerular Filtration Rate 73 mL/min (>60); Est Glom Filt Rate - Afr Amer 88 mL/min (>60); Estimated Creatinine Clearance 73.04 ml/min; Globulin 3.7 g/dL (2.2-4.2); Glucose 113 mg/dL (74-106); Magnesium 1.9 mg/dL (1.6-2.6); Phosphorus 2.5 mg/dL (2.5-4.9); Potassium 3.2 mmol/L (3.5-5.1); Protein, Total 6.5 g/dL (6.4-8.2); Sodium Level 138 mmol/L (136-145); Thyroid Stim Hormone (TSH) 1.52 uIU/mL (0.358-3.74)
[2023-07-30] MEDS: Ascorbic Acid 500 MG Tablet 1000 MG PO ×2 (09:41→17:15)
[2023-07-30] MEDS: Lactobacillis Acidophilus 2 CAP PO ×2 (09:41→22:04)
[2023-07-30] MEDS: Cholecalciferol (Vit D3) 125 MCG CAPSULE (5,000 UNITS) PO (09:41)
[2023-07-30] MEDS: Losartan Potassium 100 MG Tablet PO (09:41)
[2023-07-30] MEDS: Furosemide 40 MG Tablet PO (09:41)
[2023-07-30] MEDS: Zinc Sulfate 50 mg zinc (220 mg) ORAL capsule PO (09:41)
[2023-07-30] MEDS: Potassium Chloride Oral Tablet 20 MEQ PO ×2 (09:42→17:15)
[2023-07-30] MEDS: Menthol/Lanolin/Calamine/Znox 113 GM Tube 1 APPLIC TOPICAL ×2 (09:43→22:04)
[2023-07-30] MEDS: Vancomycin HCl 1,750 MG in 0.9% Normal Saline (500mL Bag) 500 ML 250 MG IV ×2 (10:20→22:03)
--- NOTE | 2023-07-30 12:54 | CHAPLAIN ---
Type of Pastoral Visit _x__ Initial Visit ___ Follow-up Visit ___ On-call Visit ___ General Patient Visit ___ Spiritual Assessment ___ Family Conference ___ Bereavement ___ Rapid Response ___ Code Blue ___ Other (describe below) Pastoral Care Referral From _x__ Patient ___ Family ___ Nurse ___ Physician ___ Air Export Logistics Manager ___ Neuroscience Director Na ___ Other (describe below) Sacrament/Intervention _x__ Active listening ___ Anointing ___ Muslim ___ Bereavement ___ Communion ___ Estefany exploration ___ ___ Life review _x__ Prayer ___ Reconciliation ___ Sacrament of Sick _x__ Supportive presence ___ Wedding ___ Other (describe below) Pastoral Comments patient has been seen before in previous admissions; 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
--- NOTE | 2023-07-30 12:59 | PCM.PROGNOTE ---
Subjective Subjective Patient seen and examined. He had no active complaints. The swelling in his lower legs was improving though he still had the redness. Review of systems otherwise negative. Potassium is 3.2. Objective Data Objective Data Vital Signs: Vital Signs Temp Pulse Resp BP Pulse Ox O2 Del Method 98.5 F 87 17 114/73 94 Room Air 07/30/23 07:16 07/30/23 07:16 07/30/23 07:16 07/30/23 07:16 07/30/23 07:16 07/30/23 07:20 Oxygen Delivery Method Room Air Weight: 247 lb 9.266 oz Body Mass Index (BMI) 39.9 Intake & Output: Intake and Output for Last 24 Hours 07/28/23 07/29/23 07/30/23 23:59 23:59 23:59 Intake Total 100 / 100 2070 / 2070 Output Total 1800 / 1800 Balance 100 / 100 270 / 270 Lab / Micro Data 07/30/23 06:25 07/30/23 06:25 Labs: Laboratory Results - last 24 hr 07/29/23 20:55: WBC 10.1, RBC 5.05, Hgb 14.9, Hct 46.1, MCV 91.3, MCH 29.5, MCHC 32.3, RDW Std Deviation 48.2 H, RDW Coeff of Naz 14.5, Plt Count 205, MPV 10.2, Immature Gran % (Auto) 0.300, Neut % (Auto) 77.6 H, Lymph % (Auto) 10.6 L, [place] % (Auto) 7.4, Eos % (Auto) 3.6, Baso % (Auto) 0.5, Absolute Neuts (auto) 7.8 H, Absolute Lymphs (auto) 1.07, Nucleated RBC % 0, PT 19.3 H, INR 1.6, APTT 46.9 H, Sodium 138, Potassium 3.7, Chloride 105, Carbon Dioxide 29.0, Anion Gap 4 L, BUN 14, Creatinine 1.06, Estim Creat Clear Calc 70.65, Est GFR (MDRD) Af Amer 88, Est GFR (MDRD) Non-Af 73, BUN/Creatinine Ratio 13.2, Glucose 113 H, Lactic Acid 1.5, Calcium 8.7, Total Bilirubin 1.10 H, Direct Bilirubin 0.32 H, AST 22, ALT 28, Alkaline Phosphatase 91, Total Protein 7.1, Albumin 3.0 L, Globulin 4.1, Lipase 21 07/30/23 06:25: WBC 8.9, RBC 4.80, Hgb 14.3, Hct 43.0, MCV 89.6, MCH 29.8, MCHC 33.3, RDW Std Deviation 47.3 H, RDW Coeff of Naz 14.3, Plt Count 206, MPV 9.7, Immature Gran % (Auto) 0.300, Neut % (Auto) 80.5 H, Lymph % (Auto) 7.7 L, [place] % (Auto) 6.9, Eos % (Auto) 4.3, Baso % (Auto) 0.3, Absolute Neuts (auto) 7.1, Absolute Lymphs (auto) 0.68 L, Nucleated RBC % 0, Sodium 138, Potassium 3.2 L, Chloride 105, Carbon Dioxide 26.0, Anion Gap 7, BUN 14, Creatinine 1.06, Estim Creat Clear Calc 73.04, Est GFR (MDRD) Af Amer 88, Est GFR (MDRD) Non-Af 73, BUN/Creatinine Ratio 13.2, Glucose 113 H, Calcium 8.3 L, Phosphorus 2.5, Magnesium 1.9, Total Bilirubin 1.50 H, AST 16, ALT 22, Alkaline Phosphatase 79, Total Protein 6.5, Albumin 2.8 L, Globulin 3.7, Albumin/Globulin Ratio 0.8 L, TSH 1.52 Physical Exam Const alert, oriented x3, no apparent distress and well nourished General Appearance: cooperative and well developed HEENT head/scalp atraumatic, moist oral mucous membranes and oropharynx normal Eyes PERRL and EOMs intact bilaterally Neck no lymphadenopathy and supple Lymph Lymphatic: no lymphadenopathy noted and no lymphedema noted Resp normal respiratory effort, normal air movement and clear to auscultation bilaterally Cardio regular rate, regular rhythm, S1 normal heart sound, S2 normal heart sound and no murmurs GI normal to inspection, nondistended, normoactive bowel sounds, soft to palpation, non-tender and non-distended Extremity Extremity Narrative: bilateral LE erythema, with bullae on dorsum of RLE. Skin Skin Narrative: as under extremities Neuro CN's II-XII intact bilaterally, no focal motor deficits, no sensory deficits noted and deep tendon reflexes 2+ bilaterally Motor Exam: strength 5/5 throughout and general weakness Psych thought process normal, cooperative and affect normal Appearance: appropriate Assessment & Plan Assessment/Plan (1) Bilateral cellulitis of lower leg: (2) Generalized weakness: PLAN: Plan # Bilateral lower extremity cellulitis Has associated bullous formation on his lower extremities. On IV vancomycin and IV Zosyn. #Hypokalemia: Potassium 3.3. Replace and trend. On IV morphine as needed. Wound cultures pending. #Severe tinea corporis: On nystatin powder to groin and pannus folds. #Elevated bilirubin: Bilirubin is 1.5. Baseline appears to be around 1.2-1.3. Will monitor. May have fatty liver disease. #Debility and weakness: Unable to ambulate properly. PT OT on board. Fall precautions. #History of DVT: On Xarelto. Duplex of the lower extremities was negative for any evidence of DVT. #Obesity: BMI is 40. Complicates acute care, expected recovery and prognosis. #History of CVA with right-sided hemiplegia: PT OT on board. #Paroxysmal A-fib: On Xarelto #Benign essential hypertension: #Hyperlipidemia: On statin #CAD s/p stent: Stable. On statin #BPH: S/p TURP. #DVT prophylaxis: on xarelto Charges/Coding Visit Charges Inpatient E&M: 93996 Subs Hosp L2
--- NOTE | 2023-07-30 14:03 | WOUNDNOTE ---
wound photo: left lower leg
--- NOTE | 2023-07-30 14:03 | WOUNDNOTE ---
wound photo: right lower leg
--- NOTE | 2023-07-30 14:04 | WOUNDNOTE ---
wound photo: right lateral lower leg
--- NOTE | 2023-07-30 14:05 | WOUNDNOTE ---
wound photo: right great toe
[2023-07-30 14:15] LABS: M R Staph aureus DNA By PCR Negative (Negative); Probe Check PASS; Specimen Processing Control PASS; Staph aureus DNA By PCR NEGATIVE (Negative)
[2023-07-30 14:25] VITALS: BP 97/61; PULSE 76; RESP 15; TEMP 36.9; O2SAT 92
--- NOTE | 2023-07-30 14:50 | CASEMGMT ---
RN?CM?ELECTRONIC SERVICE TECHNICIAN?CM?to room to meet with patient for initial transition planning/care coordination?assessment.?RN?CM?introduced self and role at [facility].? Pt voices understanding and consents to?assessment?at this time.? Pt resting in bed in no distress at this time.? Pt is A/O at this time and answers all questions appropriately.?? Care providers, pharmacy, and demographics verified/updated at this time. PCP: Shanda Jensen [facility] Specialists: none Preferred Pharmacy: [facility] Insurance: [facility] Prescription Benefit: yes? LNOK: 2 sons: Naeem and Maco. Living Arrangements: Son, Naeem, lives w/pt in 2-story home w/ramp entrance. FFSU. Pt states when he is at his baseline that he can bath/dress himself and does some of the laundry. He states Naeem does the med mgnt and most of the cooking. Naeem gets the groceries or pt will order on-line from [employer]. Transportation:?sons DME: States has the following DME:?shower chair, comfort-height commode, hospital bed, grab bars, walker, W/C, bill-walker, electric scooter, cane. ? Pt states no need for further DME at this time.? HHC/SNF: Pt has been to [facility] 4-5 times in past 2 years and has had [facility] in the past. Pt states he was so weak today that he could not walk w/therapy. Discussed discharge planning. He states he most likely will need to go somewhere for therapy before returning home. PLAN:??Anticipate pt would benefit from SNF. Sandy GILBERTN?RN?CM
--- NOTE | 2023-07-30 15:37 | CASEMGMT ---
Discharge Planning A list of?SNF providers including quality and resource use data and consistent with the patient's preferred geographic region, medical needs, and insurance network was created in CarePort Guide.? This list was provided to the SW. Mary Salcido Discharge Planning Asst.
[2023-07-30] MEDS: Rivaroxaban 20 MG Tablet PO (17:15)
[2023-07-30 21:58] VITALS: BP 130/78; PULSE 74; RESP 15; TEMP 37.2; O2SAT 95
[2023-07-31] MEDS: Piperacil/Tazobactam 3.375 GM in 0.9% Normal Saline (50mL MB+) 50 ML IV ×4 (00:37→22:33)
[2023-07-31] MEDS: Morphine 2 MG/ML Syringe IV ×4 (03:38→18:37)
[2023-07-31] MEDS: 0.9% Normal Saline (1000mL) 1,000 ML 50 ML IV (03:38)
[2023-07-31 03:41] VITALS: BP 130/73; PULSE 74; RESP 15; TEMP 36.6; O2SAT 97
[2023-07-31 03:47] VITALS: BMI 40.1
[2023-07-31] MEDS: Nystatin Ointment 1 APPLIC TOPICAL ×3 (06:26→22:01)
[2023-07-31] MEDS: Gabapentin 100 MG Capsule 200 MG PO ×3 (06:26→22:00)
[2023-07-31 06:32] LABS: Absolute Lymphocyte Count 0.97 X10^3/uL (0.83-4.51); Absolute Neutrophil Count 6.3 X10^3/uL (2.0-7.7); Basophil# 0.03 X10^3/uL; Basophil% 0.4 % (0-1); Eosinophil# 0.38 X10^3/uL; Eosinophils% 4.6 % (0-5); Hematocrit 43.5 % (40-54); Hemoglobin 14.6 g/dL (13.0-16.5); Lymphocyte # 0.97 X10^3/ul (0.83-4.51); Lymphocyte % 11.6 % (19-41); Mean Corp Hgb Conc 33.6 g/dL (32-36); Mean Corpuscular Hgb 30.4 pg (27.0-32.0); Mean Corpuscular Volume 90.4 fL (80-94); Mean Platelet Vol. 9.1 fl (6.2-12.0); Monocyte# 0.58 X10^3/uL; NRBC Flagged by Analyzer 0 % (0-5); Neutrophil # 6.34 X10^3/uL (2.7-7.7); Platelet Count 199 K/mm3 (150-450); RBC Distribution Width CV 14.5 % (11.6-14.6); RBC Distribution Width SD 48.1 fl (35.1-43.9); Red Blood Count 4.81 M/mm3 (4.6-6.2); White Blood Count 8.3 K/mm3 (4.4-11.0)
[2023-07-31 06:55] LABS: Anion Gap 6 (5-15); BUN 16 mg/dL (7-18); BUN/Creat Ratio 15.5 RATIO (10-20); Calcium,Total 8.5 mg/dL (8.5-10.1); Chloride 106 mmol/L (98-107); Creatinine, Serum 1.03 mg/dL (0.70-1.30); EST Glomerular Filtration Rate 75 mL/min (>60); Est Glom Filt Rate - Afr Amer 91 mL/min (>60); Estimated Creatinine Clearance 75.42 ml/min; Glucose 95 mg/dL (74-106); Potassium 3.3 mmol/L (3.5-5.1); Sodium Level 139 mmol/L (136-145)
[2023-07-31] MEDS: Ascorbic Acid 500 MG Tablet 1000 MG PO ×2 (09:33→18:35)
[2023-07-31] MEDS: Lactobacillis Acidophilus 2 CAP PO ×2 (09:33→22:00)
[2023-07-31] MEDS: Cholecalciferol (Vit D3) 125 MCG CAPSULE (5,000 UNITS) PO (09:34)
[2023-07-31] MEDS: Potassium Chloride Oral Tablet 20 MEQ 40 MEQ PO (09:34)
[2023-07-31] MEDS: Furosemide 40 MG Tablet PO (09:34)
[2023-07-31] MEDS: Zinc Sulfate 50 mg zinc (220 mg) ORAL capsule PO (09:34)
[2023-07-31] MEDS: Potassium Chloride Oral Tablet 20 MEQ PO ×2 (09:34→18:35)
[2023-07-31] MEDS: Losartan Potassium 100 MG Tablet PO (09:34)
[2023-07-31] MEDS: 0.9% Saline Lock 10 ML Syringe IV ×3 (09:35→18:37)
[2023-07-31] MEDS: Menthol/Lanolin/Calamine/Znox 113 GM Tube 1 APPLIC TOPICAL ×2 (09:45→22:00)
[2023-07-31 09:46] VITALS: BP 111/67; PULSE 84; RESP 16; TEMP 36.8; O2SAT 95
--- NOTE | 2023-07-31 10:05 | CASEMGMT ---
Social Work SW spoke w/pt about SNF choices. These are his choices: 1. [facility] 2. [facility] 3. [facility] 4. [facility] and 5. [facility]. Referrals will be sent today. CLINT Kraft
--- NOTE | 2023-07-31 10:07 | CASEMGMT ---
Addendum entered by Mary Salcido 07/31/23 11:37: [facility] accepted and [facility] declined. SW updated. Mary Salcido, Discharge Planning Asst. Original Note: Discharge Planning Referral sent via CarePort to [facility] and [facility]. Mary Salcido, Discharge Planning Asst.
[2023-07-31 10:29] LABS: Vancomycin, Trough Level 25.6 ug/mL (5.0-15.0)
--- NOTE | 2023-07-31 10:51 | PCM.RX.CS ---
Consult Antibiotic Management Pharmacy has been consulted to manage selected antibiotic: Vancomycin Type of Intervention Type of Consult: Follow-up Suspected Infection Suspected Infection: Skin/Soft tissue Prior Doses of Antibiotics Prior Doses of Antibiotics Received/Current Regimen: current dose is vanc 1750mg IV q12h Labs Labs: Sodium 139 mmol/L (136-145) 07/31/23 06:10 Potassium 3.3 mmol/L (3.5-5.1) L 07/31/23 06:10 Chloride 106 mmol/L (98-107) 07/31/23 06:10 Carbon Dioxide 27.0 mmol/L (21.0-32.0) 07/31/23 06:10 Anion Gap 6 (5-15) 07/31/23 06:10 BUN 16 mg/dL (7-18) 07/31/23 06:10 Creatinine 1.03 mg/dL (0.70-1.30) 07/31/23 06:10 Est GFR (MDRD) Af Amer 91 mL/min (>60) 07/31/23 06:10 Est GFR (MDRD) Non-Af 75 mL/min (>60) 07/31/23 06:10 BUN/Creatinine Ratio 15.5 RATIO (10-20) 07/31/23 06:10 Glucose 95 mg/dL (74-106) 07/31/23 06:10 Vancomycin Trough 25.6 ug/mL (5.0-15.0) H 07/31/23 09:45 Dosing Weight Weight used for dosin kg Goal Trough Goal Trough: 15-20 mcg/mL Pharmacy Plan for Drug Dosing Pharmacy Plan for Drug Dosing: The vanc trough drawn at 09:45 today (approx 12 hrs after the previous dose) was 25.6. This is above goal so will discontinue current dose. Will order a random vanc level to be drawn in 12 hours. Hold dosing until that level becomes available. Pharmacy Service will continue to monitor and adjust dosing as required. Follow-Up Labs Follow-Up Labs: Trough: Vancomycin (random) Date/Time Labs Ordered Labs to be done on [date and time ordered]: 07/31/23 22:00
--- NOTE | 2023-07-31 11:41 | PN_ITS ---
Subjective Subjective Patient seen and examined. The redness in his lower extremities has improved and he is feeling better. Review of systems otherwise negative. He has remained hemodynamically stable. Objective Data Objective Data Vital Signs: Vital Signs Temp Pulse Resp BP Pulse Ox O2 Del Method 98.2 F 84 16 111/67 95 Room Air 07/31/23 09:46 07/31/23 09:46 07/31/23 09:46 07/31/23 09:46 07/31/23 09:46 07/31/23 09:46 Oxygen Delivery Method Room Air Weight: 249 lb 1.957 oz Body Mass Index (BMI) 40.1 Intake & Output: Intake and Output for Last 24 Hours 07/29/23 07/30/23 07/31/23 23:59 23:59 23:59 Intake Total 100 / 100 3259.17 / 3259.17 970.83 / 970.83 Output Total 2225 / 2225 600 / 600 Balance 100 / 100 1034.17 / 1034.17 370.83 / 370.83 Lab / Micro Data 07/31/23 06:10 07/31/23 06:10 Labs: Laboratory Results - last 24 hr 07/30/23 12:10: S.aureus Protein A PCR NEGATIVE, MRSA (PCR) Negative 07/31/23 06:10: WBC 8.3, RBC 4.81, Hgb 14.6, Hct 43.5, MCV 90.4, MCH 30.4, MCHC 33.6, RDW Std Deviation 48.1 H, RDW Coeff of Naz 14.5, Plt Count 199, MPV 9.1, Immature Gran % (Auto) 0.400, Neut % (Auto) 76.0 H, Lymph % (Auto) 11.6 L, [place] % (Auto) 7.0, Eos % (Auto) 4.6, Baso % (Auto) 0.4, Absolute Neuts (auto) 6.3, Absolute Lymphs (auto) 0.97, Nucleated RBC % 0, Sodium 139, Potassium 3.3 L, Chloride 106, Carbon Dioxide 27.0, Anion Gap 6, BUN 16, Creatinine 1.03, Estim Creat Clear Calc 75.42, Est GFR (MDRD) Af Amer 91, Est GFR (MDRD) Non-Af 75, BUN/Creatinine Ratio 15.5, Glucose 95, Calcium 8.5 04/02/24 09:45: Vancomycin Trough 25.6 H Physical Exam Const alert, oriented x3, no apparent distress and well nourished Constitutional Narrative: Patient is morbidly obese. General Appearance: cooperative and well developed HEENT normocephalic, head/scalp atraumatic, hearing grossly normal bilaterally, moist oral mucous membranes and oropharynx normal Eyes PERRL and EOMs intact bilaterally Neck no lymphadenopathy and supple Lymph Lymphatic: no lymphadenopathy noted and no lymphedema noted Resp normal respiratory effort, normal air movement, no retractions, no use of accessory muscles and clear to auscultation bilaterally Cardio regular rate, regular rhythm, S1 normal heart sound, S2 normal heart sound and no murmurs GI normal to inspection, nondistended, normoactive bowel sounds, soft to palpation, non-tender and non-distended Extremity Extremity Narrative: Bilateral lower extremity edema has improved significantly. Bullae on dorsum of foot has ruptured. Skin Skin Narrative: as under extremities Neuro oriented x3, CN's II-XII intact bilaterally, moves all extremities, no focal motor deficits, no sensory deficits noted and deep tendon reflexes 2+ bilaterally Sensorium / Orientation: awake, alert, oriented to person, oriented to place and oriented to time Speech: speech normal Motor Exam: strength 5/5 throughout and general weakness Psych thought process normal, cooperative and affect normal Appearance: appropriate Assessment & Plan Assessment/Plan (1) Bilateral cellulitis of lower leg: (2) Generalized weakness: PLAN: Plan # Bilateral lower extremity cellulitis * Has associated bullous formation on his lower extremities. * On IV vancomycin and IV Zosyn. * On IV morphine as needed. Wound cultures pending. * #Hypokalemia: Potassium remains 3.3. will continue to Replace and trend. #Severe tinea corporis: On nystatin powder to groin and pannus folds. #Elevated bilirubin: Bilirubin is 1.5. Baseline appears to be around 1.2-1.3. Will monitor. May have fatty liver disease. #Debility and weakness: Unable to ambulate properly. PT OT on board. Fall precautions. #History of DVT: On Xarelto. Duplex of the lower extremities was negative for any evidence of DVT. #Obesity: BMI is 40. Complicates acute care, expected recovery and prognosis. #History of CVA with right-sided hemiplegia: PT OT on board. #Paroxysmal A-fib: On Xarelto #Benign essential hypertension: On losartan #Hyperlipidemia: On statin #CAD s/p stent: Stable. On statin #BPH: S/p TURP. #DVT prophylaxis: on xarelto Disposition: Awaiting placement. Charges/Coding Visit Charges Inpatient E&M: 61318 Subs Hosp L2
[2023-07-31] MEDS: Glycerin/Hypromellose/PEG400 15 ml Bottle 2 DRP EACH EYE (14:10)
[2023-07-31 14:22] VITALS: BP 120/62; PULSE 84; RESP 15; TEMP 36.8; O2SAT 95
--- NOTE | 2023-07-31 15:04 | CASEMGMT ---
Addendum entered by Lynsey Raymundo 07/31/23 15:17: Social Work SW let pt know [facility] has no beds, let him know [facility] can take him and they will start precert. CLINT Kraft Original Note: Social Work [facility] has no beds. [facility] can take pt, SW let them know via Careport to start precert. SW let pt know. CLINT Kraft
--- NOTE | 2023-07-31 15:17 | CASEMGMT ---
Social Work SW asked pt about POA, pt states his sons are his POAs for healthcare. SW asked him to have his sons bring in the documents as able. Pt states understanding. CLINT Kraft
[2023-07-31] MEDS: Rivaroxaban 20 MG Tablet PO (18:35)
[2023-07-31 19:57] VITALS: BP 118/84; PULSE 85; RESP 17; TEMP 36.6; O2SAT 98
[2023-07-31 22:34] LABS: Vancomycin, Random Level 18.2 ug/mL (0.0-15.0)
--- NOTE | 2023-07-31 23:03 | PCM.RX.CS ---
Consult Antibiotic Management Pharmacy has been consulted to manage selected antibiotic: Vancomycin Type of Intervention Type of Consult: Follow-up Suspected Infection Suspected Infection: Skin/Soft tissue Labs Labs: Sodium 139 mmol/L (136-145) 07/31/23 06:10 Potassium 3.3 mmol/L (3.5-5.1) L 07/31/23 06:10 Chloride 106 mmol/L (98-107) 07/31/23 06:10 Carbon Dioxide 27.0 mmol/L (21.0-32.0) 07/31/23 06:10 Anion Gap 6 (5-15) 07/31/23 06:10 BUN 16 mg/dL (7-18) 07/31/23 06:10 Creatinine 1.03 mg/dL (0.70-1.30) 07/31/23 06:10 Est GFR (MDRD) Af Amer 91 mL/min (>60) 07/31/23 06:10 Est GFR (MDRD) Non-Af 75 mL/min (>60) 07/31/23 06:10 BUN/Creatinine Ratio 15.5 RATIO (10-20) 07/31/23 06:10 Glucose 95 mg/dL (74-106) 07/31/23 06:10 Vancomycin Trough 25.6 ug/mL (5.0-15.0) H 07/31/23 09:45 Random Vancomycin 18.2 ug/mL (0.0-15.0) H 07/31/23 22:00 Microbiology Microbiology: Microbiology 07/30/23 12:10 Wound - Leg, Right Gram Stain - Final 07/30/23 12:10 Wound - Leg, Right Wound Culture - Preliminary Coag Negative Staph Dosing Weight Weight used for dosin kg Estimated Creatinine Clearance Estimated Creatinine Clearance: 75 Goal Trough Goal Trough: 15-20 mcg/mL Pharmacy Plan for Drug Dosing Pharmacy Plan for Drug Dosing: Vancomycin random level of 18.2 was down to within the target range of 15-20. Per dosing calculator, re-starting at 1000mg q12h should give an estimated continuing trough of 18.3. Will initiate this now, and will draw a trough level prior to fourth dose. Pharmacy Service will continue to monitor and adjust dosing as required. Follow-Up Labs Follow-Up Labs: Trough: Vancomycin Date/Time Labs Ordered Labs to be done on [date and time ordered]: 08/02/23 @1030
[2023-07-31] MEDS: Vancomycin IV 1,000 MG/200 ML BAG 200 MG IV (23:06)
[2023-08-01] VITALS (7 sets, daily range): BP systolic 118–131; BP diastolic 55–96; PULSE 75–84; RESP 14–17; TEMP 36.1–36.8; O2SAT 93–98; BMI 40.2
[2023-08-01] MEDS: Morphine 2 MG/ML Syringe IV ×3 (06:06→21:00)
[2023-08-01 06:59] LABS: Absolute Lymphocyte Count 1.18 X10^3/uL (0.83-4.51); Absolute Neutrophil Count 5.5 X10^3/uL (2.0-7.7); Basophil# 0.04 X10^3/uL; Basophil% 0.5 % (0-1); Eosinophil# 0.44 X10^3/uL; Eosinophils% 5.7 % (0-5); Hematocrit 49.1 % (40-54); Hemoglobin 15.8 g/dL (13.0-16.5); Lymphocyte # 1.18 X10^3/ul (0.83-4.51); Lymphocyte % 15.2 % (19-41); Mean Corp Hgb Conc 32.2 g/dL (32-36); Mean Corpuscular Hgb 29.3 pg (27.0-32.0); Mean Corpuscular Volume 91.1 fL (80-94); Mean Platelet Vol. 10.4 fl (6.2-12.0); Monocyte# 0.64 X10^3/uL; Monocyte% 8.2 % (0-10); NRBC Flagged by Analyzer 0 % (0-5); Neutrophil # 5.46 X10^3/uL (2.7-7.7); Neutrophil % 70.1 % (47-70); Platelet Count 189 K/mm3 (150-450); RBC Distribution Width CV 14.6 % (11.6-14.6); RBC Distribution Width SD 48.4 fl (35.1-43.9); Red Blood Count 5.39 M/mm3 (4.6-6.2); White Blood Count 7.8 K/mm3 (4.4-11.0)
[2023-08-01] MEDS: Nystatin Ointment 1 APPLIC TOPICAL ×3 (07:23→20:59)
[2023-08-01] MEDS: Piperacil/Tazobactam 3.375 GM in 0.9% Normal Saline (50mL MB+) 50 ML IV (07:24)
[2023-08-01] MEDS: Gabapentin 100 MG Capsule 200 MG PO ×3 (07:24→20:59)
[2023-08-01 07:46] LABS: Anion Gap 6 (5-15); BUN 15 mg/dL (7-18); BUN/Creat Ratio 14.2 RATIO (10-20); Calcium,Total 8.8 mg/dL (8.5-10.1); Chloride 107 mmol/L (98-107); Creatinine, Serum 1.06 mg/dL (0.70-1.30); EST Glomerular Filtration Rate 73 mL/min (>60); Est Glom Filt Rate - Afr Amer 88 mL/min (>60); Estimated Creatinine Clearance 73.36 ml/min; Glucose 90 mg/dL (74-106); Potassium 3.8 mmol/L (3.5-5.1); Sodium Level 137 mmol/L (136-145)
[2023-08-01 07:47] LABS: Magnesium 2.1 mg/dL (1.6-2.6)
[2023-08-01] MEDS: Potassium Chloride Oral Tablet 20 MEQ PO ×2 (09:42→16:40)
[2023-08-01] MEDS: Zinc Sulfate 50 mg zinc (220 mg) ORAL capsule PO (09:43)
[2023-08-01] MEDS: Losartan Potassium 100 MG Tablet PO (09:43)
[2023-08-01] MEDS: Furosemide 40 MG Tablet PO (09:43)
[2023-08-01] MEDS: Ascorbic Acid 500 MG Tablet 1000 MG PO ×2 (09:43→16:40)
[2023-08-01] MEDS: Lactobacillis Acidophilus 2 CAP PO ×2 (09:43→20:59)
[2023-08-01] MEDS: Cholecalciferol (Vit D3) 125 MCG CAPSULE (5,000 UNITS) PO (09:43)
[2023-08-01] MEDS: Menthol/Lanolin/Calamine/Znox 113 GM Tube 1 APPLIC TOPICAL ×2 (09:45→20:59)
[2023-08-01] MEDS: Vancomycin IV 1,000 MG/200 ML BAG 200 MG IV (11:36)
[2023-08-01] MEDS: Glycerin/Hypromellose/PEG400 15 ml Bottle 2 DRP EACH EYE ×2 (11:40→21:01)
--- NOTE | 2023-08-01 11:51 | PN_ITS ---
Subjective Subjective Patient seen and examined. He had no complaints. He had an uneventful night. Review of systems otherwise negative. He has remained hemodynamically stable. He is awaiting placement. Objective Data Objective Data Vital Signs: Vital Signs Temp Pulse Resp BP Pulse Ox O2 Del Method 98.2 F 81 14 119/96 H 93 Room Air 08/01/23 09:40 08/01/23 09:40 08/01/23 09:40 08/01/23 09:40 08/01/23 09:40 08/01/23 09:40 Oxygen Delivery Method Room Air Weight: 249 lb 9.012 oz Body Mass Index (BMI) 40.2 Intake & Output: Intake and Output for Last 24 Hours 07/30/23 07/31/23 08/01/23 23:59 23:59 23:59 Intake Total 3259.17 / 3259.17 2808.33 / 2808.33 300 / 300 Output Total 2225 / 2225 1650 / 1650 Balance 1034.17 / 1034.17 1158.33 / 1158.33 300 / 300 Lab / Micro Data 08/01/23 05:50 08/01/23 05:50 Labs: Laboratory Results - last 24 hr 07/31/23 22:00: Random Vancomycin 18.2 H 08/01/23 05:50: WBC 7.8, RBC 5.39, Hgb 15.8, Hct 49.1, MCV 91.1, MCH 29.3, MCHC 32.2, RDW Std Deviation 48.4 H, RDW Coeff of Naz 14.6, Plt Count 189, MPV 10.4, Immature Gran % (Auto) 0.300, Neut % (Auto) 70.1 H, Lymph % (Auto) 15.2 L, [place] % (Auto) 8.2, Eos % (Auto) 5.7 H, Baso % (Auto) 0.5, Absolute Neuts (auto) 5.5, Absolute Lymphs (auto) 1.18, Nucleated RBC % 0, Sodium 137, Potassium 3.8, Chloride 107, Carbon Dioxide 24.0, Anion Gap 6, BUN 15, Creatinine 1.06, Estim Creat Clear Calc 73.36, Est GFR (MDRD) Af Amer 88, Est GFR (MDRD) Non-Af 73, BUN/Creatinine Ratio 14.2, Glucose 90, Calcium 8.8, Magnesium 2.1 Micro: Microbiology 07/29/23 22:11 Blood Culture (Wb) - Left Hand Blood Culture - Preliminary No growth in 48 hours. 07/29/23 20:55 Blood Culture (Wb) - Left Hand Blood Culture - Preliminary No growth in 48 hours. 07/30/23 12:10 Wound - Leg, Right Gram Stain - Final 07/30/23 12:10 Wound - Leg, Right Wound Culture - Final Coag Negative Staph Radiography Diagnostic Testing: Radiology Impression Venous Doppler Study 07/30/23 03:21 Interpretation Summary Deep veins of the bilateral lower extremities are patent and compressible segmentally. There is no evidence of bilateral lower extremity deep vein thrombosis. The bilateral great saphenous veins appear patent and compressible segmentally. Ordering Physician: Bari Resendez Referring Physician: Shanda Jensen Performed By: Irene Cai RVT Physical Exam Const alert, oriented x3, no apparent distress and well nourished Constitutional Narrative: Patient is morbidly obese. General Appearance: cooperative and well developed HEENT normocephalic, head/scalp atraumatic, hearing grossly normal bilaterally, moist oral mucous membranes and oropharynx normal Eyes PERRL and EOMs intact bilaterally Neck no lymphadenopathy and supple Lymph Lymphatic: no lymphadenopathy noted and no lymphedema noted Resp normal respiratory effort, normal air movement, no retractions, no use of accessory muscles and clear to auscultation bilaterally Cardio regular rate, regular rhythm, S1 normal heart sound, S2 normal heart sound and no murmurs GI normal to inspection, nondistended, normoactive bowel sounds, soft to palpation, non-tender and non-distended Extremity Extremity Narrative: Bilateral lower extremity edema and redness have improved significantly. Bullae on dorsum of foot has ruptured. Skin Skin Narrative: as under extremities Neuro oriented x3, CN's II-XII intact bilaterally, moves all extremities, no focal motor deficits, no sensory deficits noted and deep tendon reflexes 2+ bilaterally Sensorium / Orientation: awake, alert, oriented to person, oriented to place and oriented to time Speech: speech normal Motor Exam: strength 5/5 throughout and general weakness Psych thought process normal, cooperative and affect normal Appearance: appropriate Assessment & Plan Assessment/Plan (1) Bilateral cellulitis of lower leg: (2) Generalized weakness: PLAN: Plan # Bilateral lower extremity cellulitis * Has associated bullous formation on his lower extremities. * On IV vancomycin and IV Zosyn. * On IV morphine as needed. Wound cultures growing coagulase negative Staph, likela skin contaminant. Blood cultures negative after 48 hours. * will dc IV vancomycin and zosyn and switch to PO doxycycline x 5 days * #Hypokalemia: resolvd. #Severe tinea corporis: On nystatin powder to groin and pannus folds. #Elevated bilirubin: Bilirubin is 1.5. Baseline appears to be around 1.2-1.3. Will monitor. May have fatty liver disease. #Debility and weakness: Unable to ambulate properly. PT OT on board. Fall precautions. #History of DVT: On Xarelto. Duplex of the lower extremities was negative for any evidence of DVT. #Obesity: BMI is 40. Complicates acute care, expected recovery and prognosis. #History of CVA with right-sided hemiplegia: PT OT on board. #Paroxysmal A-fib: On Xarelto #Benign essential hypertension: On losartan #Hyperlipidemia: On statin #CAD s/p stent: Stable. On statin #BPH: S/p TURP. #DVT prophylaxis: on xarelto Disposition: Awaiting placement. Charges/Coding Visit Charges Inpatient E&M: 42411 Subs Hosp L2
[2023-08-01] MEDS: Rivaroxaban 20 MG Tablet PO (16:40)
[2023-08-01] MEDS: Doxycycline 100 MG CAPSULE PO (20:59)
[2023-08-01] MEDS: 0.9% Saline Lock 10 ML Syringe IV (21:01)
[2023-08-02 03:00] VITALS: BP 144/95; PULSE 77; RESP 17; TEMP 36.2; O2SAT 96
[2023-08-02] MEDS: Glycerin/Hypromellose/PEG400 15 ml Bottle 2 DRP EACH EYE ×2 (03:09→05:28)
[2023-08-02] MEDS: Acetaminophen 325 MG Tablet 650 MG PO ×2 (03:09→11:11)
[2023-08-02 04:43] VITALS: BMI 40.4
[2023-08-02] MEDS: Gabapentin 100 MG Capsule 200 MG PO ×2 (05:28→13:06)
[2023-08-02] MEDS: Nystatin Ointment 1 APPLIC TOPICAL ×2 (05:28→13:06)
[2023-08-02 08:07] LABS: Absolute Lymphocyte Count 1.11 X10^3/uL (0.83-4.51); Absolute Neutrophil Count 5.3 X10^3/uL (2.0-7.7); Basophil# 0.02 X10^3/uL; Basophil% 0.3 % (0-1); Eosinophil# 0.57 X10^3/uL; Eosinophils% 7.4 % (0-5); Hematocrit 44.8 % (40-54); Hemoglobin 14.8 g/dL (13.0-16.5); Lymphocyte # 1.11 X10^3/ul (0.83-4.51); Lymphocyte % 14.4 % (19-41); Mean Corpuscular Hgb 29.5 pg (27.0-32.0); Mean Corpuscular Volume 89.4 fL (80-94); Mean Platelet Vol. 9.5 fl (6.2-12.0); Monocyte# 0.64 X10^3/uL; Monocyte% 8.3 % (0-10); NRBC Flagged by Analyzer 0 % (0-5); Neutrophil # 5.34 X10^3/uL (2.7-7.7); Neutrophil % 69.3 % (47-70); Platelet Count 208 K/mm3 (150-450); RBC Distribution Width CV 14.3 % (11.6-14.6); RBC Distribution Width SD 46.5 fl (35.1-43.9); Red Blood Count 5.01 M/mm3 (4.6-6.2); White Blood Count 7.7 K/mm3 (4.4-11.0)
[2023-08-02] MEDS: Ascorbic Acid 500 MG Tablet 1000 MG PO (08:25)
[2023-08-02] MEDS: Potassium Chloride Oral Tablet 20 MEQ PO (08:25)
[2023-08-02 08:32] LABS: Anion Gap 6 (5-15); BUN 15 mg/dL (7-18); Calcium,Total 8.8 mg/dL (8.5-10.1); Chloride 107 mmol/L (98-107); Creatinine, Serum 0.88 mg/dL (0.70-1.30); EST Glomerular Filtration Rate 90 mL/min (>60); Est Glom Filt Rate - Afr Amer 109 mL/min (>60); Estimated Creatinine Clearance 88.53 ml/min; Glucose 96 mg/dL (74-106); Potassium 3.4 mmol/L (3.5-5.1); Sodium Level 138 mmol/L (136-145)
[2023-08-02 08:36] VITALS: BP 137/95; PULSE 68; RESP 16; TEMP 36.1; O2SAT 96
--- NOTE | 2023-08-02 10:54 | TREXTCAR_ITS ---
Diet Diet Order/Speech Therapy: 07/29/23 23:48 Diet: Cardiac - Heart Healthy Food consistency:: Regular Liquid Consistency:: Regular/Thin Is pt able to select menu?: Yes Routine Orders/Code Status Enema Type: Fleetz Enema Frequency: Daily PRN Suppository Type: Dulcolax 10mg Suppository Frequency: Daily PRN O2 Frequency: PRN Keep PO Greater than or Equal to (%): 90 Wound(s) bilateral legs: Wound Type: blisters RLE: Wound Type: blister LL foot: Wound Type: blister bilateral buttocks: Wound Type: Pressure Injury right lateral lower leg: Wound Type: scattered blisters Dressing Change: Adaptic right delgadillo: Wound Type: scattered blisters Dressing Change: Adaptic right great toe: Wound Type: blood blister Therapies Weight Bearing: Weight bearing as tolerated Physical Therapy: Eval and Treat Occupational Therapy: Eval and Treat Problem/Diagnosis (1) Bilateral cellulitis of lower leg: Status: Acute Code(s): L03.116 - Cellulitis of left lower limb; L03.115 - Cellulitis of right lower limb (2) Generalized weakness: Status: Acute Code(s): R53.1 - Weakness Plan # Bilateral lower extremity cellulitis * Has associated bullous formation on his lower extremities. * On IV vancomycin and IV Zosyn. * On IV morphine as needed. Wound cultures growing coagulase negative Staph, likela skin contaminant. Blood cultures negative after 48 hours. * will dc IV vancomycin and zosyn and switch to PO doxycycline x 5 days * #Hypokalemia: resolvd. #Severe tinea corporis: On nystatin powder to groin and pannus folds. #Elevated bilirubin: Bilirubin is 1.5. Baseline appears to be around 1.2-1.3. Will monitor. May have fatty liver disease. #Debility and weakness: Unable to ambulate properly. PT OT on board. Fall precautions. #History of DVT: On Xarelto. Duplex of the lower extremities was negative for any evidence of DVT. #Obesity: BMI is 40. Complicates acute care, expected recovery and prognosis. #History of CVA with right-sided hemiplegia: PT OT on board. #Paroxysmal A-fib: On Xarelto #Benign essential hypertension: On losartan #Hyperlipidemia: On statin #CAD s/p stent: Stable. On statin #BPH: S/p TURP. #DVT prophylaxis: on xarelto Disposition: Awaiting placement. Allergies/Procedures Done in Hospital Allergies diphenhydramine [From Benadryl] Adverse Reaction (Mild, Verified 07/29/23 21:01) Abd cramps/diarrhea ibuprofen [From Motrin] Adverse Reaction (Verified 07/29/23 21:01) Nausea Procedures: None Type of Care/Length of Stay Estimated LOS: Convalescent Care Less Than 30 days Type of Care Needed: Skilled Rehab Potential: Fair Prognosis: Fair Additional Orders/Day of Discharge Day of Discharge: 08/02/23 Discharge Plan Admission Admit Date/Time: 07/29/23 23:11 Primary Reason for Your Visit: bilateral lower extremity cellulitis Attending Provider: Melissa Torres Primary Care Provider: Shanda Jensen NP Consulting Providers: Bari Resendez Instructions Patient Instructions: Cellulitis Dc Discharge Orders/Prescriptions Prescriptions: New doxycycline monohydrate 100 mg Capsule 100 mg PO BID Qty: 8 0RF Continued Xarelto 20 mg Tablet 20 mg PO DINNER Qty: 0 0RF acetaminophen 500 mg Tablet 1,000 mg PO Q8 Qty: 0 0RF losartan 100 mg Tablet 100 mg PO DAILY 30 Days Qty: 30 0RF potassium chloride [Klor-Con M20] 20 mEq Tablet,Er Particles/Crystals 20 meq PO BIDCM Qty: 0 0RF furosemide 40 mg Tablet 40 mg PO DAILY 4 Days Qty: 0 0RF menthol-zinc oxide [Calmoseptine] 0.44-20.6 % Ointment 1 applic topical BID Qty: 0 0RF Protocol: *Topical Application Instructions APPLICATION INSTRUCTIONS: buttocks furosemide 40 mg tablet 40 mg PO DAILY 7 Days Qty: 7 0RF gabapentin 100 mg Capsule 200 mg PO TID Petrolatum 33% [Eucerin Eqivalent] 1 applic topical BID PRN Referrals / Follow Up: Shanda Jensen NP, AUTOMATIC CIGAR WRAPPER TENDER-C [Primary Care Provider] - Within 1 Week Disposition Disposition (needs filled in before D/C Order can be placed): Nursing Home Facility
--- NOTE | 2023-08-02 10:55 | PCM.DC.SUM ---
Providers Date of Admission: 07/29/23 Date of Discharge: 08/02/23 Primary Care Physician: Shanda Jensen, JULES-C Consultations 07/29/23 23:48 Consult: Onc/Wound/explosive technician Routine Comment: Reason for Consult:: Severe groin rash with tinea corporis. Reason For Visit: BILATERAL LOWER EXTREMEITY CELLULITIS & ACUTE Diagnosis Discharge Diagnosis (1) Bilateral cellulitis of lower leg: Status: Acute Code(s): L03.116 - Cellulitis of left lower limb; L03.115 - Cellulitis of right lower limb (2) Generalized weakness: Status: Acute Code(s): R53.1 - Weakness Plan # Bilateral lower extremity cellulitis Has associated bullous formation on his lower extremities. On IV vancomycin and IV Zosyn. On IV morphine as needed. Wound cultures growing coagulase negative Staph, likela skin contaminant. Blood cultures negative after 48 hours. will dc IV vancomycin and zosyn and switch to PO doxycycline x 5 days #Hypokalemia: resolvd. #Severe tinea corporis: On nystatin powder to groin and pannus folds. #Elevated bilirubin: Bilirubin is 1.5. Baseline appears to be around 1.2-1.3. Will monitor. May have fatty liver disease. #Debility and weakness: Unable to ambulate properly. PT OT on board. Fall precautions. #History of DVT: On Xarelto. Duplex of the lower extremities was negative for any evidence of DVT. #Obesity: BMI is 40. Complicates acute care, expected recovery and prognosis. #History of CVA with right-sided hemiplegia: PT OT on board. #Paroxysmal A-fib: On Xarelto #Benign essential hypertension: On losartan #Hyperlipidemia: On statin #CAD s/p stent: Stable. On statin #BPH: S/p TURP. #DVT prophylaxis: on xarelto Disposition: Awaiting placement. Medications at Discharge Home Medications rivaroxaban 20 mg tablet (Xarelto) 20 mg PO DINNER BLOOD THINNER #0 tabs 12/28/21 acetaminophen 500 mg tablet 1,000 mg (2 x 500 mg) PO Q8 pain/fever #0 tabs 02/15/23 losartan 100 mg tablet 100 mg PO DAILY blood pressure 30 days #30 tabs 03/15/23 potassium chloride 20 mEq tablet,extended release(part/cryst) (Klor-Con M) 20 meq PO BIDCM potassium #0 tabs 03/29/23 furosemide 40 mg tablet 40 mg PO DAILY diuretic 4 days #0 tabs 04/17/23 menthol 0.44 %-zinc oxide 20.6 % topical ointment (Calmoseptine) 1 applic topical BID rash #0 grams 04/17/23 furosemide 40 mg tablet 40 mg PO DAILY diuretic 7 days #7 tabs 04/20/23 Petrolatum 33% [Eucerin Eqivalent] 1 applic topical BID PRN 07/29/23 gabapentin 100 mg capsule 200 mg PO TID nerve pain 07/29/23 doxycycline monohydrate 100 mg capsule 100 mg PO BID #8 caps 08/02/23 Hospital Course Operations None Procedures None Summary of Care Provided Minutes Spent on Discharge: 45 Hospital Course: Patient is a 72-year-old male with a past medical history as outlined was admitted through the ED on 07/29/2023 with a complaint of increasing redness and swelling of his lower extremities with associated redness in his groin. His symptoms have been going on for about 3 days. He also admitted to bullae formation in his lower extremities had seeping from redness of his lower extremities. He cannot ambulate due to the pain. He denied any fever or chills, nausea vomiting or any other symptoms. He said he had chronic tinea infection which has worsened. He was admitted and managed for bilateral lower extremity cellulitis in the setting of chronic lymphedema with venous stasis. He was started on IV vancomycin and Zosyn. The redness of his lower extremities gradually improved and he felt much better. He was also placed on nystatin powder for the tinea infection. Patient was unable to ambulate very well with physical therapy and was deemed as needing skilled placement. He was therefore discharged to [facility] facility on 08/02/2023. He was switched to p.o. doxycycline 100 mg twice daily to complete a 5 day course at time of discharge. He is to follow-up with his primary care doctor within 1 to 2 weeks. Patient seen and examined prior to discharge. He had no complaints and had an uneventful night. Review of systems otherwise negative. Labs and vitals reviewed. Home medication reviewed and reconciled. Physical Exam Const alert, oriented x3, no apparent distress and well nourished Constitutional Narrative: Patient is morbidly obese. General Appearance: cooperative, comfortable and well developed HEENT normocephalic, head/scalp atraumatic, hearing grossly normal bilaterally, moist oral mucous membranes and oropharynx normal Mouth: oral and palatal mucosa normal Eyes PERRL and EOMs intact bilaterally Neck no lymphadenopathy and supple Lymph Lymphatic: no lymphadenopathy noted and no lymphedema noted Resp normal respiratory effort, normal air movement, no retractions, no use of accessory muscles and clear to auscultation bilaterally Cardio regular rate, regular rhythm, S1 normal heart sound, S2 normal heart sound and no murmurs GI normal to inspection, nondistended, normoactive bowel sounds, soft to palpation, non-tender and non-distended Extremity Extremity Narrative: Bilateral lower extremity edema and redness have improved significantly. Bullae on dorsum of foot has ruptured. Skin Skin Narrative: as under extremities Neuro oriented x3, CN's II-XII intact bilaterally, moves all extremities, no focal motor deficits, no sensory deficits noted and deep tendon reflexes 2+ bilaterally Sensorium / Orientation: awake, alert, oriented to person, oriented to place and oriented to time Speech: speech normal Motor Exam: strength 5/5 throughout and general weakness Psych thought process normal, cooperative and affect normal Appearance: appropriate Weight / BMI Weight Weight: 250 lb 7.122 oz Body Mass Index (BMI) 40.4 ABG / Lab / Microbiology Data 08/02/23 07:20 08/02/23 07:20 Laboratory: Laboratory Results - last 24 hr 08/02/23 07:20: WBC 7.7, RBC 5.01, Hgb 14.8, Hct 44.8, MCV 89.4, MCH 29.5, MCHC 33.0, RDW Std Deviation 46.5 H, RDW Coeff of Naz 14.3, Plt Count 208, MPV 9.5, Immature Gran % (Auto) 0.300, Neut % (Auto) 69.3, Lymph % (Auto) 14.4 L, Warrick % (Auto) 8.3, Eos % (Auto) 7.4 H, Baso % (Auto) 0.3, Absolute Neuts (auto) 5.3, Absolute Lymphs (auto) 1.11, Nucleated RBC % 0, Sodium 138, Potassium 3.4 L, Chloride 107, Carbon Dioxide 25.0, Anion Gap 6, BUN 15, Creatinine 0.88, Estim Creat Clear Calc 88.53, Est GFR (MDRD) Af Amer 109, Est GFR (MDRD) Non-Af 90, BUN/Creatinine Ratio 17.0, Glucose 96, Calcium 8.8 Microbiology: Microbiology 07/29/23 22:11 Blood Culture (Wb) - Left Hand Blood Culture - Preliminary No growth in 48 hours. 07/29/23 20:55 Blood Culture (Wb) - Left Hand Blood Culture - Preliminary No growth in 48 hours. 07/30/23 12:10 Wound - Leg, Right Gram Stain - Final 07/30/23 12:10 Wound - Leg, Right Wound Culture - Final Coag Negative Staph D/C Instructions Discharge Diet: Low fat / Low cholesterol Discharge Activity: Return to Normal Activity Weight Bearing Status: Weight bearing as tolerated Call your doctor if you observe: Fever of 101 or Higher, Shortness of breath and Swelling in the ankles Meaningful Use Info Meaningful Use Diagnoses (Choose all that apply): None applicable Discharge Plan Admission Admit Date/Time: 07/29/23 23:11 Primary Reason for Your Visit: bilateral lower extremity cellulitis Attending Provider: Melissa Torres Primary Care Provider: Shanda Jensen NP Consulting Providers: Bari Resendez Instructions Patient Instructions: Cellulitis Dc Discharge Orders/Prescriptions Prescriptions: New doxycycline monohydrate 100 mg Capsule 100 mg PO BID Qty: 8 0RF Continued Xarelto 20 mg Tablet 20 mg PO DINNER Qty: 0 0RF acetaminophen 500 mg Tablet 1,000 mg PO Q8 Qty: 0 0RF losartan 100 mg Tablet 100 mg PO DAILY 30 Days Qty: 30 0RF potassium chloride [Klor-Con M20] 20 mEq Tablet,Er Particles/Crystals 20 meq PO BIDCM Qty: 0 0RF furosemide 40 mg Tablet 40 mg PO DAILY 4 Days Qty: 0 0RF menthol-zinc oxide [Calmoseptine] 0.44-20.6 % Ointment 1 applic topical BID Qty: 0 0RF Protocol: *Topical Application Instructions APPLICATION INSTRUCTIONS: buttocks furosemide 40 mg tablet 40 mg PO DAILY 7 Days Qty: 7 0RF gabapentin 100 mg Capsule 200 mg PO TID Petrolatum 33% [Eucerin Eqivalent] 1 applic topical BID PRN Referrals / Follow Up: Shanda Jensen CONCERT OR LECTURE HALL MANAGER, CONCERT OR LECTURE HALL MANAGER-C [Primary Care Provider] - Within 1 Week Disposition Disposition (needs filled in before D/C Order can be placed): Alf Facility Charges/Coding Visit Charges Inpatient E&M: 37799 Disch Hosp >30min
[2023-08-02] MEDS: Furosemide 40 MG Tablet PO (11:08)
[2023-08-02] MEDS: Zinc Sulfate 50 mg zinc (220 mg) ORAL capsule PO (11:08)
[2023-08-02] MEDS: Lactobacillis Acidophilus 2 CAP PO (11:08)
[2023-08-02] MEDS: Cholecalciferol (Vit D3) 125 MCG CAPSULE (5,000 UNITS) PO (11:08)
[2023-08-02] MEDS: Doxycycline 100 MG CAPSULE PO (11:08)
[2023-08-02] MEDS: Menthol/Lanolin/Calamine/Znox 113 GM Tube 1 APPLIC TOPICAL (11:09)
[2023-08-02] MEDS: Losartan Potassium 100 MG Tablet PO (11:10)
[2023-08-02 12:02] VITALS: O2SAT 86; O2SAT 90; O2SAT 91
[2023-08-02 13:16] VITALS: BP 140/88; PULSE 72; RESP 18; TEMP 36.5; O2SAT 95
--- NOTE | 2023-08-02 13:25 | NURSING ---
report called to [facility] and spoke with Jodi lopez
== END 2023-08-02 14:02 | DRG 603 ==
LOC: ED 22:51 → PCU 23:22
PROVIDERS: Family Medicine; Admitting Provider Internal Medicine; Emergency Provider Emergency Medicine; PCP Nurse Practitioner Family; Visit Provider Student in an Organized Health Care Education/Training Program
DX: L03.115 Cellulitis of right lower limb (principal); I69.351 Hemiplegia and hemiparesis following cerebral infarction affecting right dominant side; Z68.41 Body mass index [BMI] 40.0-44.9, adult; I11.0 Hypertensive heart disease with heart failure; E66.01 Morbid (severe) obesity due to excess calories; B35.4 Tinea corporis; E78.5 Hyperlipidemia, unspecified; G62.9 Polyneuropathy, unspecified; I50.9 Heart failure, unspecified; I48.0 Paroxysmal atrial fibrillation; E87.6 Hypokalemia; I25.10 Atherosclerotic heart disease of native coronary artery without angina pectoris; I89.0 Lymphedema, not elsewhere classified; G47.33 Obstructive sleep apnea (adult) (pediatric); I87.8 Other specified disorders of veins; Z95.5 Presence of coronary angioplasty implant and graft; Z87.891 Personal history of nicotine dependence; L03.116 Cellulitis of left lower limb; Z79.01 Long term (current) use of anticoagulants; R53.1 Weakness; R53.81 Other malaise; N40.0 Benign prostatic hyperplasia without lower urinary tract symptoms; Z99.89 Dependence on other enabling machines and devices; Z87.440 Personal history of urinary (tract) infections; Z86.718 Personal history of other venous thrombosis and embolism
CPT/HCPCS: 36415; 80048; 80053; 80076; 80202; 83605; 83690; 83735; 84100; 84443; 85025; 85610; 85730; 87040; 87070; 87205; 87640; 93970; 94668; 97110; 97162; 97166; 97530; 97535; 99284; J7030; J7040; J7050; A4216; J1940

== ENCOUNTER 2023-09-02 08:48 | Inpatient (IN) | payer MEDICARE, SELFPAY ==
[2023-09-02] VITALS (9 sets, daily range): BP systolic 112–142; BP diastolic 75–94; PULSE 67–83; RESP 16–19; TEMP 36.2–37.7; O2SAT 94–98; BMI 38.0; BMI 36.5
--- NOTE | 2023-09-02 09:44 | EKG12_ITS ---
Test Reason : CELLUITIS Blood Pressure : / mmHG Vent. Rate : 074 BPM Atrial Rate : 000 BPM P-R Int : 000 ms QRS Dur : 084 ms QT Int : 402 ms P-R-T Axes : 000 018 206 degrees QTc Int : 446 ms Atrial fibrillation with premature ventricular or aberrantly conducted complexes Anteroseptal infarct , age undetermined ST & T wave abnormality, consider inferolateral ischemia Abnormal ECG Confirmed by DAVE GLASS, DEZ ([id number]), editor managing newspaper LARRY VERGARA ([id number]) on 09/03/2023 7:03:17 AM Referred By: Confirmed By:DEZ ACOSTA MD
--- NOTE | 2023-09-02 09:46 | EDS_ITS ---
HPI History of Present Illness Chief Complaint: Cellulitis Narrative Narrative: 72-year-old male presenting with cellulitis to the bilateral lower extremities. This is acute on chronic issue. Patient states he has issues with cellulitis in the bilateral lower extremities. He was last admitted here about a month ago. He was discharged to a [facility] for care. He states that he started with a cellulitis back about a week before he left and they put him on oral antibiotics and sent him home. He has not had any fevers. He does state he felt little bit nauseous this morning and ate some bread and felt better. He states has not been able to walk for couple of days due to the leg swelling and pain. He states is a 9/10 of pain. Patient is on Xarelto. [facility] Medical History Adult failure to thrive Ambulatory dysfunction Anomalous origin of coronary artery Anticoagulant long-term use Arthritis Atherosclerotic heart disease of [place] coronary artery without angina pectoris Atrial fibrillation Atrial fibrillation Benign neoplasm of middle ear, nasal cavity and accessory sinuses Bilateral cellulitis of lower leg BPH (benign prostatic hyperplasia) Candidiasis of skin Cardiac murmur, unspecified Cellulitis Cellulitis of right lower limb Cervical disc disease Chronic anticoagulation Chronic venous stasis dermatitis Chronic venous stasis dermatitis of both lower extremities CPAP (continuous positive airway pressure) dependence CVA (cerebral vascular accident) Debility Deep venous thrombosis Dyspnea on minimal exertion Essential (primary) hypertension Former smoker FTT (failure to thrive) in adult Generalized weakness GERD (gastroesophageal reflux disease) Hemiplegia affecting right dominant side Hyperglycemia Hyperlipidemia Hypertension Leg pain Low back pain Lymphedema Lymphedema Lymphedema of both lower extremities New onset atrial fibrillation (03/24/20) 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 Obesity ANDREE (obstructive sleep apnea) Pain in right lower leg Pain of left great toe Pain of left lower extremity due to injury Pneumonia Rotator cuff tear arthropathy of right shoulder Skin ulcer of left great toe with fat layer exposed Sleep apnea Tinea cruris Toe ulcer Traumatic hematoma of left lower leg Venous insufficiency Home Medications rivaroxaban 20 mg tablet (Xarelto) 20 mg PO DINNER BLOOD THINNER #0 tabs 12/28/21 [Rx Last Taken 09/01/23] losartan 100 mg tablet 100 mg PO DAILY blood pressure 30 days #30 tabs 03/15/23 [Rx Last Taken 09/01/23] potassium chloride 20 mEq tablet,extended release(part/cryst) (Klor-Con M) 20 meq PO BIDCM potassium #0 tabs 03/29/23 [Rx Last Taken 09/01/23] furosemide 40 mg tablet 40 mg PO DAILY diuretic 7 days #7 tabs 04/20/23 [Rx Last Taken 09/01/23] Lactobacil rhamnosus GG 10 billion cell-inulin 200 mg sprinkle capsule (Culture [facility] [employer] [facility]) 1 cap PO BID 09/02/23 [History Last Taken 09/01/23] amlodipine 5 mg tablet 5 mg PO DAILY 09/02/23 [History Last Taken 09/01/23] gabapentin 300 mg capsule 300 mg PO TID 09/02/23 [History Last Taken 09/01/23] hydroxyzine HCl 25 mg tablet 25 mg PO Q12H PRN itching 09/02/23 [History Last Taken 09/01/23] multivitamin with folic acid 400 mcg tablet (Daily-Viridiana (with folic acid)) 1 tab PO DAILY 09/02/23 [History Last Taken 09/01/23] Allergy/AdvReac Type Severity Reaction Status Date / Time diphenhydramine AdvReac Mild Abd Verified 09/02/23 08:55 [From Benadryl] cramps/diarrhea ibuprofen [From Motrin] AdvReac Nausea Verified 09/02/23 08:55 Family History Mother CAD (coronary artery disease) Hypertension History of cardiac radiofrequency ablation Sister Hypertension Other Arthritis Surgical History H/O cervical spine surgery History of bursectomy History of carpal tunnel release History of carpal tunnel surgery History of coronary artery stent placement (11/29/10) History of coronary artery stent placement History of fusion of cervical spine History of herniorrhaphy History of removal of cyst History of transurethral resection of prostate Social History household members: other details: Older son Naeem. Smoking Status: Former smoker alcohol intake: never substance use type: does not use ROS ROS ED Constitutional Constitutional ED: Denies chills, fever(s) or sweats Eyes Eyes: Denies blurry vision or change in vision ENT ENT ED: Denies ear pain or sore throat Cardiovascular Cardiovascular: Denies chest pain, palpitations or racing heartbeat Respiratory/Chest Respiratory/Chest: Denies cough, dyspnea or sputum Gastrointestinal Gastrointestinal: Denies abdominal pain, constipation, diarrhea, nausea or vomiting Genitourinary Genitourinary ED: Denies dysuria, hematuria or urinary frequency Musculoskeletal Musculoskeletal: Reports other Details: Bilateral leg pain ; Denies arthralgias, myalgias or neck pain Integumentary Reports rash; Denies abscess or Abrasions Neurologic Neurologic: Denies headache(s), paresthesias or weakness Psychiatric Psychiatric: Denies anxiety, depression, suicidal ideation or suicidal thoughts Endocrine Endocrinology: Denies polydipsia or polyuria EXAM Physical Exam Const Vital Signs: 09/02/23 08:49 09/02/23 08:52 09/02/23 09:59 Temperature 97.1 F L 97.1 F L Temperature Source Temporal Temporal Pulse Rate 73 74 Respiratory Rate 16 18 Blood Pressure 142/94 H 142/94 H Blood Pressure Mean 110 110 Pulse Ox 97 98 97 Oxygen Delivery Method Room Air Room Air Room Air 09/02/23 09:52 09/02/23 11:00 Temperature 97.5 F L 98 F Temperature Source Temporal Temporal Pulse Rate 67 79 Respiratory Rate 17 19 H Blood Pressure 119/86 H 127/76 H Blood Pressure Mean 97 93 Pulse Ox 95 94 Oxygen Delivery Method Room Air Room Air Positive obese Nutritional Appearance: obese HEENT Reports dry mucous membranes Mouth ED: Yes dry mucous membranes Mouth: dry mucous membranes Eyes PERRL and EOMs intact bilaterally Chest Wall inspection of chest normal and palpation of chest normal Resp normal respiratory effort and clear to auscultation bilaterally Auscultation: Negative for rales, rhonchi or wheezes Cardio regular rate and regular rhythm Extremity Extremity Narrative: Chronic stasis changes bilateral lower extremities. Increased warmth, tenderness to the bilateral lower extremities. No fluctuance. No crepitance. Neuro oriented x3 and CN's II-XII intact bilaterally Psych mental status grossly normal Skin Skin Narrative: As described above MDM MDM MDM Narrative Medical decision making narrative: Patient presenting with bilateral leg pain and inability ambulate. Differential includes CHF, dehydration, anemia, cellulitis, debility, electro normalities. CBC was obtained to assess white blood cell count, hemoglobin and platelets. BMP to assess renal function, electrolytes, glucose. High-sensitivity troponin, BNP, chest x-ray to assess for CHF. Patient given morphine, Zofran for pain and nausea. I have low suspicion for DVT since the patient is on Xarelto. CBC shows normal white blood cell count 13.5. Platelets are normal 165. Renal function and electrolytes are normal. High-sensitivity troponin 10. BNP likely 6. Chest x-ray on my interpretation shows no acute cardiopulmonary process. Radiology interprets as agrees. Patient was given a dose vancomycin for the cellulitis. Discussed with hospitalist for admission secondary to debility and cellulitis. Impression: 1. Debility 2. Bilateral lower extremity cellulitis Lab Data Attestation: I reviewed the patient's lab results. Labs: Laboratory Results - last 24 hr 09/02/23 09/02/23 09/02/23 09:11 09:11 10:06 WBC Cancelled 8.0 Corrected WBC Cancelled RBC Cancelled 4.47 L Hgb Cancelled 13.5 Hct Cancelled 41.4 MCV Cancelled 92.6 MCH Cancelled 30.2 MCHC Cancelled 32.6 RDW Std Deviation Cancelled 52.7 H RDW Coeff of Naz Cancelled 15.4 H Plt Count Cancelled 165 MPV Cancelled 10.1 Immature Gran % (Auto) Cancelled 0.200 Neut % (Auto) Cancelled 68.2 Lymph % (Auto) Cancelled 14.3 L [place] % (Auto) Cancelled 10.1 H Eos % (Auto) Cancelled 6.7 H Baso % (Auto) Cancelled 0.5 Absolute Neuts (auto) Cancelled 5.5 Absolute Lymphs (auto) Cancelled 1.15 Total Counted Cancelled Neutrophils % (Manual) Cancelled Band Neutrophils % Cancelled Lymphocytes % (Manual) Cancelled Monocytes % (Manual) Cancelled Eosinophils % (Manual) Cancelled Basophils % (Manual) Cancelled Metamyelocytes % Cancelled Myelocytes % Cancelled Promyelocytes % Cancelled Blast Cells % Cancelled Plasma Cell % (Manual) Cancelled Other Cells % Cancelled Nucleated RBC % Cancelled 0 Nucleated RBCs/100 WBC Cancelled Differential Comment Cancelled Diff Path Review Cancelled Hypersegmented Neuts Cancelled Atypical Lymphocytes Cancelled Reactive Lymphocytes Cancelled Smudge Cells Cancelled Toxic Granulation Cancelled Toxic Vacuolation Cancelled Dohle Bodies Cancelled Rae Rods Cancelled Platelet Estimate Cancelled Plt Morphology Comment Cancelled RBC Morphology Cancelled Cancelled Polychromasia Cancelled Hypochromasia Cancelled Basophilic Stippling Cancelled Anisocytosis Cancelled Microcytosis Cancelled Macrocytosis Cancelled Spherocytes Cancelled Sickle Cells Cancelled Target Cells Cancelled Tear Drop Cells Cancelled Ovalocytes Cancelled Stomatocytes Cancelled Pollrad-[place] Bodies Cancelled [place]ou Cells Cancelled Bite Cells Cancelled Crenated Cell Cancelled Acanthocytes (Spur) Cancelled Rouleaux Cancelled Schistocytes Cancelled Sodium 141 Potassium 4.1 Chloride 108 H Carbon Dioxide 26.0 Anion Gap 7 BUN 15 Creatinine 0.93 Estim Creat Clear Calc 81.09 Est GFR (MDRD) Af Amer 102 Est GFR (MDRD) Non-Af 85 BUN/Creatinine Ratio 16.1 Glucose 132 H Calcium 9.0 Troponin I High Sens 10 B-Natriuretic Peptide 136.0 H Radiography Diagnostic Testing: Clinical Impression(s) from Imaging Studies Chest X-Ray 09/02/23 09:55 IMPRESSION: No radiographic evidence of acute cardiopulmonary disease. Electronically Signed: Leonardo Vieira MD at 11:07 EDT , Discharge Plan Triage Chief Complaint: Cellulitis ED Provider: Obi Oropeza Dx/Rx/DC Orders Primary Care Provider: Shanda Jensen NP
[2023-09-02] MEDS: Ondansetron 4 MG/2 ML Vial IV (09:53)
[2023-09-02] MEDS: Morphine 4 MG/ML Syringe IV (09:53)
--- NOTE | 2023-09-02 09:55 | RAD_ITS ---
INDICATION: chest pain EXAMINATION/TECHNIQUE: X-RAY - XR Chest 1 View COMPARISON: Prior study dated: 06/27/2023 FINDINGS: LINES/DEVICES: None. LUNGS: No consolidation, edema or effusion. No pneumothorax. MEDIASTINUM AND CARDIOVASCULAR STRUCTURES: Cardiac silhouette not enlarged. Central airways and mediastinal contour are unremarkable. BONES AND SOFT TISSUES: Unremarkable. RAD/Chest 1 View (Portable) IMPRESSION: No radiographic evidence of acute cardiopulmonary disease. Electronically Signed: Leonardo Vieira MD at 11:07 EDT ,
[2023-09-02 10:08] LABS: Anion Gap 7 (5-15); BUN 15 mg/dL (7-18); BUN/Creat Ratio 16.1 RATIO (10-20); Chloride 108 mmol/L (98-107); Creatinine, Serum 0.93 mg/dL (0.70-1.30); EST Glomerular Filtration Rate 85 mL/min (>60); Est Glom Filt Rate - Afr Amer 102 mL/min (>60); Estimated Creatinine Clearance 81.09 ml/min; Glucose 132 mg/dL (74-106); Potassium 4.1 mmol/L (3.5-5.1); Sodium Level 141 mmol/L (136-145); Troponin-I HS 10 pg/mL (3.0-78.0)
[2023-09-02 10:10] LABS: Absolute Lymphocyte Count 1.15 X10^3/uL (0.83-4.51); Absolute Neutrophil Count 5.5 X10^3/uL (2.0-7.7); Basophil# 0.04 X10^3/uL; Basophil% 0.5 % (0-1); Eosinophil# 0.54 X10^3/uL; Eosinophils% 6.7 % (0-5); Hematocrit 41.4 % (40-54); Hemoglobin 13.5 g/dL (13.0-16.5); Lymphocyte # 1.15 X10^3/ul (0.83-4.51); Lymphocyte % 14.3 % (19-41); Mean Corp Hgb Conc 32.6 g/dL (32-36); Mean Corpuscular Hgb 30.2 pg (27.0-32.0); Mean Corpuscular Volume 92.6 fL (80-94); Mean Platelet Vol. 10.1 fl (6.2-12.0); Monocyte# 0.81 X10^3/uL; Monocyte% 10.1 % (0-10); NRBC Flagged by Analyzer 0 % (0-5); Neutrophil # 5.47 X10^3/uL (2.7-7.7); Neutrophil % 68.2 % (47-70); Platelet Count 165 K/mm3 (150-450); RBC Distribution Width CV 15.4 % (11.6-14.6); RBC Distribution Width SD 52.7 fl (35.1-43.9); Red Blood Count 4.47 M/mm3 (4.6-6.2)
--- NOTE | 2023-09-02 11:18 | ED.RN ---
Hospitalist paged for Dr Oropeza
--- NOTE | 2023-09-02 11:19 | HP.PCM.HOS_ITS ---
HPI - General General Date of Admission: 09/02/23 Date of Service: 09/02/23 Chief Complaint: Recurrent bilateral lower extremity cellulitis, inability to ambulate HPI Narrative TURNER YAN, is a 72 M who presented to [facility] ED on 09/02/2023 with recurrent bilateral lower extremity cellulitis and inability to ambulate. Saw patient at bedside in the ED, son present. Patient was sitting up comfortably in bed, conversing normally, in no acute distress. His legs were exposed in the bed; has chronic venous stasis changes bilaterally but legs are warm and tender to the touch from the ankle up to just below the knee bilaterally. Patient denies any fevers or chills. Patient also notes mild scrotal swelling with erythema today that has previously been present but feels slightly worse than prior; on exam scrotum does appear mildly erythematous and edematous, no significant pain to palpation. Patient was hospitalized here from 07/28-08/02/2023 for the same concerns. He was treated with IV vancomycin and Zosyn during hospitalization with improvement in the redness and swelling. Patient was noted to have bullae formation and seeping from lower extremities on that admission that improved by discharge. Wound culture from right leg grew only coag negative staph that was felt to be a contaminant and blood cultures were negative. Had noted chronic tinea corporis infection of his scrotum that appeared worse on that admission and was treated with nystatin powder with improvement. Patient had difficulty ambulating at that time, PT/OT followed and patient was discharged to skilled nurse facility on 08/01. Patient and son note that he did have improvement in his lower extremity cellulitis during that hospitalization and his functionality was improving while at SNF. However, son states that he felt like the patient was forced to leave SNF before he was ready due to insurance issues and then worsened again at home within a week. States this has happened before that previous hospitalization as well and he has strong concerns about this happening again. In the ED, patient was hemodynamically stable and afebrile. WBC count normal. BNP 136, similar to previous. Labs otherwise fairly benign. No imaging of lower extremities done in ED. Patient notably did have lower extremity duplex ultrasound done on 07/29 during previous admission that was normal. Patient will be admitted for further management. [facility] Medical History (Updated 09/02/23 @ 14:[address] Larry Howard, DO) Adult failure to thrive Ambulatory dysfunction Anomalous origin of coronary artery Anticoagulant long-term use Arthritis Atherosclerotic heart disease of [place] coronary artery without angina pectoris Atrial fibrillation Atrial fibrillation Benign neoplasm of middle ear, nasal cavity and accessory sinuses Bilateral cellulitis of lower leg BPH (benign prostatic hyperplasia) Candidiasis of skin Cardiac murmur, unspecified Cellulitis Cellulitis of right lower limb Cervical disc disease Chronic anticoagulation Chronic venous stasis dermatitis Chronic venous stasis dermatitis of both lower extremities CPAP (continuous positive airway pressure) dependence CVA (cerebral vascular accident) Debility Deep venous thrombosis Dyspnea on minimal exertion Essential (primary) hypertension Former smoker FTT (failure to thrive) in adult Generalized weakness GERD (gastroesophageal reflux disease) Hemiplegia affecting right dominant side Hyperglycemia Hyperlipidemia Hypertension Leg pain Low back pain Lymphedema Lymphedema Lymphedema of both lower extremities New onset atrial fibrillation (03/24/20) 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 Obesity ANDREE (obstructive sleep apnea) Pain in right lower leg Pain of left great toe Pain of left lower extremity due to injury Pneumonia Rotator cuff tear arthropathy of right shoulder Skin ulcer of left great toe with fat layer exposed Sleep apnea Tinea cruris Toe ulcer Traumatic hematoma of left lower leg Venous insufficiency Home Medications rivaroxaban 20 mg tablet (Xarelto) 20 mg PO DINNER BLOOD THINNER #0 tabs 12/28/21 [Rx Last Taken 09/01/23] losartan 100 mg tablet 100 mg PO DAILY blood pressure 30 days #30 tabs 03/15/23 [Rx Last Taken 09/01/23] potassium chloride 20 mEq tablet,extended release(part/cryst) (Klor-Con M) 20 meq PO BIDCM potassium #0 tabs 03/29/23 [Rx Last Taken 09/01/23] furosemide 40 mg tablet 40 mg PO DAILY diuretic 7 days #7 tabs 04/20/23 [Rx Last Taken 09/01/23] Lactobacil rhamnosus GG 10 billion cell-inulin 200 mg sprinkle capsule ([employer]) 1 cap PO BID 09/02/23 [History Last Taken 09/01/23] amlodipine 5 mg tablet 5 mg PO DAILY 09/02/23 [History Last Taken 09/01/23] gabapentin 300 mg capsule 300 mg PO TID 09/02/23 [History Last Taken 09/01/23] hydroxyzine HCl 25 mg tablet 25 mg PO Q12H PRN itching 09/02/23 [History Last Taken 09/01/23] multivitamin with folic acid 400 mcg tablet (Daily-Viridiana (with folic acid)) 1 tab PO DAILY 09/02/23 [History Last Taken 09/01/23] Allergy/AdvReac Type Severity Reaction Status Date / Time diphenhydramine AdvReac Mild Abd Verified 09/02/23 13:03 [From Benadryl] cramps/diarrhea ibuprofen [From Motrin] AdvReac Nausea Verified 09/02/23 13:03 Family History Mother CAD (coronary artery disease) Hypertension History of cardiac radiofrequency ablation Sister Hypertension Other Arthritis Surgical History H/O cervical spine surgery History of bursectomy History of carpal tunnel release History of carpal tunnel surgery History of coronary artery stent placement (11/29/10) History of coronary artery stent placement History of fusion of cervical spine History of herniorrhaphy History of removal of cyst History of transurethral resection of prostate Social History household members: other details: Older son Naeem. Smoking Status: Former smoker alcohol intake: never substance use type: does not use ROS Constitutional Constitutional: Reports weakness; Denies chills, fatigue or fever(s) Cardiovascular Cardiovascular: Denies chest pain Respiratory/Chest Respiratory/Chest: Denies shortness of breath at rest Gastrointestinal Gastrointestinal: Denies abdominal pain Musculoskeletal Musculoskeletal: Reports other Details: Lower extremity pain with palpation and with ambulation Neurologic Neurologic: Denies focal weakness Vital Signs Vital Signs Vital Signs: 09/02/23 08:49 09/02/23 08:52 09/02/23 09:59 Temperature 97.1 F L 97.1 F L Temperature Source Temporal Temporal Pulse Rate 73 74 Respiratory Rate 16 18 Blood Pressure 142/94 H 142/94 H Blood Pressure Mean 110 110 Pulse Ox 97 98 97 Oxygen Delivery Method Room Air Room Air Room Air 09/02/23 09:52 09/02/23 11:00 Temperature 97.5 F L 98 F Temperature Source Temporal Temporal Pulse Rate 67 79 Respiratory Rate 17 19 H Blood Pressure 119/86 H 127/76 H Blood Pressure Mean 97 93 Pulse Ox 95 94 Oxygen Delivery Method Room Air Room Air Weight Weight: 106.9 kg Body Mass Index (BMI) 38.0 Physical Exam Const alert, oriented x3 and no apparent distress Constitutional Narrative: Pleasant elderly male, obese, sitting up comfortably in bed, conversing normally, in no acute distress. General Appearance: cooperative and comfortable HEENT normocephalic, head/scalp atraumatic, hearing grossly normal bilaterally and nasal mucous membranes and turbinates normal Eyes PERRL, EOMs intact bilaterally and conjunctivae normal Neck full ROM Chest inspection of chest normal Resp normal respiratory effort, normal air movement, no use of accessory muscles and clear to auscultation bilaterally Cardio regular rate, regular rhythm, no murmurs and peripheral pulses 2+ throughout GI normal to inspection, nondistended, normoactive bowel sounds, soft to palpation, non-tender and non-distended Back/Spine normal ROM Extremity Extremity Narrative: Moderate warmth and tenderness to palpation noted on bilateral lower extremities from ankle up to just below the knee. Significant chronic venous stasis changes noted. No open wounds or drainage noted. Neuro moves all extremities and no focal motor deficits Speech: speech normal Psych mental status grossly normal Results Lab / Micro Data 09/02/23 10:06 09/02/23 09:11 Labs: Laboratory Results - last 24 hr 09/02/23 09:11: WBC Cancelled, Corrected WBC Cancelled, RBC Cancelled, Hgb Cancelled, Hct Cancelled, MCV Cancelled, MCH Cancelled, MCHC Cancelled, RDW Std Deviation Cancelled, RDW Coeff of Naz Cancelled, Plt Count Cancelled, MPV Cancelled, Immature Gran % (Auto) Cancelled, Neut % (Auto) Cancelled, Lymph % (Auto) Cancelled, [place] % (Auto) Cancelled, Eos % (Auto) Cancelled, Baso % (Auto) Cancelled, Absolute Neuts (auto) Cancelled, Absolute Lymphs (auto) Cancelled, Total Counted Cancelled, Neutrophils % (Manual) Cancelled, Band Neutrophils % Cancelled, Lymphocytes % (Manual) Cancelled, Monocytes % (Manual) Cancelled, Eosinophils % (Manual) Cancelled, Basophils % (Manual) Cancelled, Metamyelocytes % Cancelled, Myelocytes % Cancelled, Promyelocytes % Cancelled, Blast Cells % Cancelled, Plasma Cell % (Manual) Cancelled, Other Cells % Cancelled, Nucleated RBC % Cancelled, Nucleated RBCs/100 WBC Cancelled, Differential Comment Cancelled, Diff Path Review Cancelled, Hypersegmented Neuts Cancelled, Atypical Lymphocytes Cancelled, Reactive Lymphocytes Cancelled, Smudge Cells Cancelled, Toxic Granulation Cancelled, Toxic Vacuolation Cancelled, Dohle Bodies Cancelled, Rae Rods Cancelled, Platelet Estimate Cancelled, Plt Morphology Comment Cancelled, RBC Morphology Cancelled 09/02/23 09:11: RBC Morphology Cancelled, Polychromasia Cancelled, Hypochromasia Cancelled, Basophilic Stippling Cancelled, Anisocytosis Cancelled, Microcytosis Cancelled, Macrocytosis Cancelled, Spherocytes Cancelled, Sickle Cells Cancelled, Target Cells Cancelled, Tear Drop Cells Cancelled, Ovalocytes Ca ncelled, Stomatocytes Cancelled, Pollard-[place] Bodies Cancelled, [place]rell Cells Cancelled, Bite Cells Cancelled, Crenated Cell Cancelled, Acanthocytes (Spur) Cancelled, Rouleaux Cancelled, Schistocytes Cancelled, Sodium 141, Potassium 4.1, Chloride 108 H, Carbon Dioxide 26.0, Anion Gap 7, BUN 15, Creatinine 0.93, Estim Creat Clear Calc 81.09, Est GFR (MDRD) Af Amer 102, Est GFR (MDRD) Non-Af 85, BUN/Creatinine Ratio 16.1, Glucose 132 H, Calcium 9.0, Troponin I High Sens 10, B-Natriuretic Peptide 136.0 H 09/02/23 10:06: WBC 8.0, RBC 4.47 L, Hgb 13.5, Hct 41.4, MCV 92.6, MCH 30.2, MCHC 32.6, RDW Std Deviation 52.7 H, RDW Coeff of Naz 15.4 H, Plt Count 165, MPV 10.1, Immature Gran % (Auto) 0.200, Neut % (Auto) 68.2, Lymph % (Auto) 14.3 L, [place] % (Auto) 10.1 H, Eos % (Auto) 6.7 H, Baso % (Auto) 0.5, Absolute Neuts (auto) 5.5, Absolute Lymphs (auto) 1.15, Nucleated RBC % 0 Imaging Radiology Impression Chest X-Ray 09/02/23 09:55 IMPRESSION: No radiographic evidence of acute cardiopulmonary disease. Electronically Signed: Leonardo Vieira MD at 11:07 EDT , Assessment & Plan Assessment/Plan (1) Cellulitis of both lower extremities: (2) Debility: (3) Scrotal erythema: PLAN: Plan Patient is a 72-year-old male who presented [facility] ED on 09/02/2023 with recurrent bilateral lower extremity cellulitis and inability to a mbulate. 1. Recurrent bilateral lower extremity cellulitis with chronic venous stasis ? Admit under inpatient status to [facility]. Podiatry consulted. Wound therapy consulted. Have high concern given patient's chronic lower extremity edema that he will continue to be at high risk for recurrent cellulitis going forward. Will treat with IV vancomycin and Zosyn for now. Will hold on any lower ex tremity imaging for now, appreciate podiatry recs. 2. Acute on chronic debility ? PT/OT/case management consulted. Previous hospitalization from 07/28-08/01, discharged to [facility] on 08/01. Patient and family reported good experience there but did feel like patient was sent home from the earlier than he should have been due to insurance issues. Follow up therapy scores, likely will need SNF again on discharge. 3. Recurrent mild scrotal edema and erythema, history of tinea corporis infection of scrotum ? Treating with IV antibiotics as noted above. Scrotal ultrasound ordered. Will hold on treatment with nystatin for now but can consider as needed. Chronic medical conditions: ? Obesity: BMI 36 on admit. Complicates hospital course, care and prognosis. ? Paroxysmal A-fib, history of DVT: Stable. Continue home Xarelto, not on any rate controlling agents. ? History of CVA with right-sided hemiplegia: Continue home Xarelto and statin. ? CAD s/p stenting, hypertension, hyperlipidemia: Continue home Xarelto, statin, amlodipine, Lasix and losartan. ? BPH s/p TURP ? Lower extremity neuropathy: Continue home gabapentin. DVT prophylaxis: Xarelto CODE STATUS: Full code, verified Expected disposition: Home with home health care versus SNF, TBD Total clinical time spent by myself addressing the patient's medical issues, reviewing all the data, and collaborating with patient's care team: 55 minutes. Charges/Coding Visit Charges Inpatient E&M: 62929 Init Hosp L2
--- NOTE | 2023-09-02 11:23 | ED.RN ---
hospitalist called back
[2023-09-02] MEDS: Vancomycin HCl 2,000 MG in 0.9% Normal Saline (500mL Bag) 500 ML 250 MG IV (12:03)
[2023-09-02] MEDS: Gabapentin 300 MG Capsule PO ×2 (13:58→22:44)
[2023-09-02] MEDS: 0.9% Normal Saline (250mL Bag) 250 ML 15 ML IV (14:38)
[2023-09-02] MEDS: Piperacil/Tazobactam 4.5 GM in 0.9% Normal Saline (100mL MB+) 100 ML IV (14:38)
[2023-09-02] MEDS: Potassium Chloride Oral Tablet 20 MEQ PO (15:52)
[2023-09-02] MEDS: Rivaroxaban 20 MG Tablet PO (15:52)
[2023-09-02] MEDS: Atorvastatin Calcium 40 MG Tablet PO (22:44)
[2023-09-02] MEDS: Menthol/Lanolin/Calamine/Znox 113 GM Tube 1 APPLIC TOPICAL (22:44)
[2023-09-02] MEDS: Nystatin Powder 15gm Bottle 1 APPLIC TOPICAL (22:44)
[2023-09-02] MEDS: oxyCODONE 5 MG Tablet PO (22:44)
[2023-09-02] MEDS: Piperacil/Tazobactam 3.375 GM in 0.9% Normal Saline (50mL MB+) 50 ML IV (22:45)
[2023-09-02] MEDS: Acetaminophen 325 MG Tablet 650 MG PO (23:10)
[2023-09-03 04:00] VITALS: BP 113/76; PULSE 75; RESP 16; TEMP 36.8; O2SAT 95
[2023-09-03] MEDS: Piperacil/Tazobactam 3.375 GM in 0.9% Normal Saline (50mL MB+) 50 ML IV (05:02)
[2023-09-03] MEDS: Gabapentin 300 MG Capsule PO ×3 (05:02→22:21)
[2023-09-03 06:06] LABS: Hematocrit 38.4 % (40-54); Hemoglobin 12.3 g/dL (13.0-16.5); Mean Corpuscular Hgb 29.6 pg (27.0-32.0); Mean Corpuscular Volume 92.5 fL (80-94); Mean Platelet Vol. 9.5 fl (6.2-12.0); Platelet Count 186 K/mm3 (150-450); RBC Distribution Width CV 15.6 % (11.6-14.6); RBC Distribution Width SD 53.1 fl (35.1-43.9); Red Blood Count 4.15 M/mm3 (4.6-6.2); White Blood Count 7.7 K/mm3 (4.4-11.0)
[2023-09-03 06:26] LABS: Anion Gap 5 (5-15); BUN 16 mg/dL (7-18); BUN/Creat Ratio 17.5 RATIO (10-20); Calcium,Total 8.7 mg/dL (8.5-10.1); Chloride 110 mmol/L (98-107); Creatinine, Serum 0.92 mg/dL (0.70-1.30); EST Glomerular Filtration Rate 86 mL/min (>60); Est Glom Filt Rate - Afr Amer 104 mL/min (>60); Estimated Creatinine Clearance 82.89 ml/min; Glucose 107 mg/dL (74-106); Potassium 4.1 mmol/L (3.5-5.1); Sodium Level 139 mmol/L (136-145)
--- NOTE | 2023-09-03 08:00 | US_ITS ---
STUDY: SCROTUM ULTRASOUND REASON FOR EXAM: Male, 72 years old. Scrotal swelling TECHNIQUE: Ultrasound evaluation of the scrotum was performed with color Doppler and static otero-scale imaging. COMPARISON: None. FINDINGS: RIGHT TESTICLE INTRATESTICULAR: There is a normal size of the right testicle. The right testicle measures 3.7 cm x 2.4 cm x 2.7 cm. There is a homogenous echotexture. There is normal arterial and normal venous vascularity. There is no demonstrated right testicular mass or cyst. EXTRATESTICULAR: The epididymis is normal in size. The epididymis head measures 0.8 cm x 0.8 cm x 1 cm. There is normal vascularity of the epididymis. There is no demonstrated epididymal cystic structure. There is a large hydrocele. There is no demonstrated varicocele. There is no demonstrated extratesticular mass or cyst. LEFT TESTICLE INTRATESTICULAR: There is a normal size of the left testicle. The left testicle measures 3.7 cm x 2.1 cm x 2.3 cm. There is a homogenous echotexture. There is normal arterial and normal venous vascularity. There is no demonstrated left testicular mass or cyst. EXTRATESTICULAR: The epididymis is normal in size. The epididymis head measures 1.1 cm x 0.7 cm x 0.9 cm. There is normal vascularity of the epididymis. There is no demonstrated epididymal cystic structure. There is a large hydrocele. There is no demonstrated varicocele. There is no demonstrated extratesticular mass or cyst. There is evidence of scrotal wall edema. US/Testicular with Arterial Flow IMPRESSION: Bilateral large hydroceles. Scrotal edema. Electronically Signed: Ramiro Norris MD at 14:43 EDT ,
--- NOTE | 2023-09-03 08:17 | PN.HOSP_ITS ---
Reason for Visit Reason for Visit: Diagnoses Cellulitis of right lower limb (09/02/23) Cellulitis of left lower limb (09/02/23) Other specified disorders of the male genital organs (09/02/23) Other malaise (09/02/23) Subjective Subjective Feeling well. No new issues. Objective Data Objective Data Vital Signs: Vital Signs Temp Pulse Resp BP Pulse Ox O2 Del Method 36.8 C 75 16 113/76 95 Room Air 09/03/23 04:00 09/03/23 04:00 09/03/23 04:00 09/03/23 04:00 09/03/23 04:00 09/03/23 04:00 Oxygen Delivery Method Room Air Weight: 105.715 kg Body Mass Index (BMI) 36.5 Intake & Output: Intake and Output for Last 24 Hours 09/01/23 09/02/23 09/03/23 23:59 23:59 23:59 Intake Total 640 / 640 50 / 50 Output Total 400 / 600 400 / 400 Balance 240 / 40 -350 / -350 Lab / Micro Data 09/03/23 05:23 09/03/23 05:23 Labs: Laboratory Results - last 24 hr 09/02/23 09:11: WBC Cancelled, Corrected WBC Cancelled, RBC Cancelled, Hgb Cancelled, Hct Cancelled, MCV Cancelled, MCH Cancelled, MCHC Cancelled, RDW Std Deviation Cancelled, RDW Coeff of Naz Cancelled, Plt Count Cancelled, MPV Cancelled, Immature Gran % (Auto) Cancelled, Neut % (Auto) Cancelled, Lymph % (Auto) Cancelled, [place] % (Auto) Cancelled, Eos % (Auto) Cancelled, Baso % (Auto) Cancelled, Absolute Neuts (auto) Cancelled, Absolute Lymphs (auto) Cancelled, Total Counted Cancelled, Neutrophils % (Manual) Cancelled, Band Neutrophils % Cancelled, Lymphocytes % (Manual) Cancelled, Monocytes % (Manual) Cancelled, Eos inophils % (Manual) Cancelled, Basophils % (Manual) Cancelled, Metamyelocytes % Cancelled, Myelocytes % Cancelled, Promyelocytes % Cancelled, Blast Cells % Cancelled, Plasma Cell % (Manual) Cancelled, Other Cells % Cancelled, Nucleated RBC % Cancelled, Nucleated RBCs/100 WBC Cancelled, Differential Comment Cancelled, Diff Path Review Cancelled, Hypersegmented Neuts Cancelled, Atypical Lymphocytes Cancelled, Reactive Lymphocytes Cancelled, Smudge Cells Cancelled, Toxic Granulation Cancelled, Toxic Vacuolation Cancelled, Dohle Bodies Cancelled, Rae Rods Cancelled, Platelet Estimate Cancelled, Plt Morphology Comment Cancelled, RBC Morphology Cancelled 09/02/23 09:11: RBC Morphology Cancelled, Polychromasia Cancelled, Hypochromasia Cancelled, Basophilic Stippling Cancelled, Anisocytosis Cancelled, Microcytosis Cancelled, Macrocytosis Cancelled, Spherocytes Cancelled, Sickle Cells Cancelled, Target Cells Cancelled, Tear Drop Cells Cancelled, Ovalocytes Cancelled, Stomatocytes Cancelled, Pollard-[place] Bodies Cancelled, [place] Cells Cancelled, Bite Cells Cancelled, Crenated Cell Cancelled, Acanthocytes (Spur) Cancelled, Rouleaux Cancelled, Schistocytes Cancelled, Sodium 141, Potassium 4.1, Chloride 108 H, Carbon Dioxide 26.0, Anion Gap 7, BUN 15, Creatinine 0.93, Estim Creat Clear Calc 81.09, Est GFR (MDRD) Af Amer 102, Est GFR (MDRD) Non-Af 85, BUN/Creatinine Ratio 16.1, Glucose 132 H, Calcium 9.0, Troponin I High Sens 10, B-Natriuretic Peptide 136.0 H 09/02/23 10:06: WBC 8.0, RBC 4.47 L, Hgb 13.5, Hct 41.4, MCV 92.6, MCH 30.2, MCHC 32.6, RDW Std Deviation 52.7 H, RDW Coeff of Naz 15.4 H, Plt Count 165, MPV 10.1, Immature Gran % (Auto) 0.200, Neut % (Auto) 68.2, Lymph % (Auto) 14.3 L, [place] % (Auto) 10.1 H, Eos % (Auto) 6.7 H, Baso % (Auto) 0.5, Absolute Neuts (auto) 5.5, Absolute Lymphs (auto) 1.15, Nucleated RBC % 0 09/03/23 05:23: WBC 7.7, RBC 4.15 L, Hgb 12.3 L, Hct 38.4 L, MCV 92.5, MCH 29.6, MCHC 32.0, RDW Std Deviation 53.1 H, RDW Coeff of Naz 15.6 H, Plt Count 186, MPV 9.5, Sodium 139, Potassium 4.1, Chloride 110 H, Carbon Dioxide 24.0, Anion Gap 5, BUN 16, Creatinine 0.92, Estim Creat Clear Calc 82.89, Est GFR (MDRD) Af Amer 104, Est GFR (MDRD) Non-Af 86, BUN/Creatinine Ratio 17.5, Glucose 107 H, Calcium 8.7 Radiography Diagnostic Testing: Radiology Impression Chest X-Ray 09/02/23 09:55 IMPRESSION: No radiographic evidence of acute cardiopulmonary disease. Electronically Signed: Leonardo Vieira MD at 11:07 EDT , Physical Exam Const alert and no apparent distress Resp normal respiratory effort, no retractions, no use of accessory muscles and clear to auscultation bilaterally Cardio regular rate, regular rhythm, S1 normal heart sound and S2 normal heart sound GI normal to inspection, nondistended, normoactive bowel sounds, soft to palpation, non-tender and non-distended Extremity Extremity Narrative: resolved erythema. Lymphedematous discoloration in BLE. Assessment & Plan Assessment/Plan (1) Cellulitis of both lower extremities: (2) Debility: (3) Scrotal erythema: PLAN: Plan Recurrent bilateral lower extremity cellulitis with chronic venous stasis * Podiatry consulted. Wound therapy consulted. * Have high concern given patient's chronic lower extremity edema that he will continue to be at high risk for recurrent cellulitis going forward. Will tr eat with IV vancomycin and Zosyn for now. Will hold on any lower extremity imaging for now, appreciate podiatry recs. Acute on chronic debility * PT/OT/case management consulted. * Follow up therapy scores, likely will need SNF again on discharge. Recurrent mild scrotal edema and erythema, history of tinea corporis infection of scrotum * Treating with IV antibiotics as noted above. Scrotal ultrasound ordered. Will hold on treatment with nystatin for now but can consider as needed. Chronic medical conditions: * Obesity: BMI 36 on admit. Complicates hospital course, care and prognosis. * Paroxysmal A-fib, history of DVT: Stable. Continue home Xarelto, not on any rate controlling agents. * History of CVA with right-sided hemiplegia: Continue home Xarelto and statin. * CAD s/p stenting, hypertension, hyperlipidemia: Continue home Xarelto, statin, amlodipine, Lasix and losartan. * BPH s/p TURP * Lower extremity neuropathy: Continue home gabapentin. DVT prophylaxis: not indicated as he is on rivaroxaban CODE STATUS: Full code, verified Expected disposition: Home with home health care versus SNF, TBD Charges/Coding Visit Charges Inpatient E&M: 89071 Subs Hosp L2
--- NOTE | 2023-09-03 08:31 | WOUNDNOTE ---
wound/skin photo: right lower leg
--- NOTE | 2023-09-03 08:33 | WOUNDNOTE ---
skin photo: left lower leg
[2023-09-03 09:00] VITALS: RESP 18
[2023-09-03 09:30] VITALS: BP 127/86; PULSE 75; RESP 18; TEMP 36.9; O2SAT 98
[2023-09-03] MEDS: Potassium Chloride Oral Tablet 20 MEQ PO ×2 (09:41→17:46)
[2023-09-03] MEDS: Multivitamins,Therapeutic Tablet 1 TABLET PO (09:41)
[2023-09-03] MEDS: Senna Tablet 1 TABLET PO (09:41)
[2023-09-03] MEDS: Furosemide 40 MG Tablet PO (09:42)
[2023-09-03] MEDS: Nystatin Powder 15gm Bottle 1 APPLIC TOPICAL ×2 (09:42→22:22)
[2023-09-03] MEDS: Losartan Potassium 100 MG Tablet PO (09:42)
[2023-09-03] MEDS: amLODIPine 5 MG Tablet PO (09:42)
[2023-09-03] MEDS: Menthol/Lanolin/Calamine/Znox 113 GM Tube 1 APPLIC TOPICAL ×2 (12:21→22:00)
--- NOTE | 2023-09-03 12:22 | CASEMGMT ---
JON MI Assessment Face to Face with patient for initial transition planning/care coordination assessment. JON MI introduced self and role at [facility], pt voices understanding. Pt is A&Ox4 and is resting comfortably in bed and is calm. Pt son (Naeem) at bedside. Care providers, pharmacy, and demographics verified. Admitting dx: LE Edema with concerns for Cellulitis PCP: Shanda Jensen Specialists: Denies Preferred Pharmacy: [facility] Insurance: [facility] Prescription Benefit: Yes LNOK: Naeem Roberson (SON) , Maco Roberson (SON) Living Arrangements: Pt lives with his son Naeem in a 2 story home with a FFSU and a ramp to enter ADLs/IADLs: Son helps with ADLs Transportation: Both Sons DME: BSC, Shower chair and GB, Hospital bed, FWW, Rollator, Cane, W/C HHC/SNF: History at [facility] TCU, [place] [facility], SW. History with [facility] and [facility]. Pt was seen by [facility] recently and the pt son states that they are aware that the pt was admitted to the hospital Pt?s goal: Regain enough strength to eventually return home with his son Plan: Anticipate SNF. Therapy evals are pending. At this time, the pt states that he would be interested in going to a SNF for further rehab to help regain enough strength to eventually return home with his son. Pt and pt son are concerned about insurance issues. This info was passed along to the CM/SW on MS3. CM/SW to follow pt in regard to safe DC from [facility]. Shirin Torres RN, CM
--- NOTE | 2023-09-03 15:31 | CASEMGMT ---
Social Work- SW met with pt to discuss d/c planning and introduce social work. A list of SNF providers including quality and resource use data and consistent with the patient?s preferred geographic region, medical needs, and insurance network were provided from the [facility]. Pt chose TCU as FOC. SW submitted referral to [facility]. Awaiting approval. LEIA Mcpherson
--- NOTE | 2023-09-03 15:34 | CASEMGMT ---
Social Work- SW met with pt to discuss advance directives.? Pt confirms he has completed a living will and health care POA naming sons Maco Roberson and Naeem Roberson.? Pt notified that documents are not on file at [facility] and SW requested they be brought in for scanning into the EMR.? LEIA Mcpherson
--- NOTE | 2023-09-03 15:38 | CASEMGMT ---
Social Work- Pt has completed a health care POA with a living will provision naming Naresh Aparicio.? Documents are in pt chart at [facility]. LEIA Mcpherson
[2023-09-03 17:00] VITALS: BP 120/61; PULSE 79; RESP 18; TEMP 37.1; O2SAT 98
[2023-09-03] MEDS: Rivaroxaban 20 MG Tablet PO (17:46)
[2023-09-03] MEDS: Furosemide 40 MG/4 ML Vial IV (17:47)
--- NOTE | 2023-09-03 17:48 | CON.PCM_ITS ---
Assessment & Plan Assessment/Plan (1) Cellulitis of both lower extremities: (2) Venous insufficiency (chronic) (peripheral): (3) Lipodermatosclerosis of both lower extremities: (4) Debility: PLAN: Plan Patient seen and evaluated On examination of lower extremities he demonstrates Bilateral lower extremity pitting edema and erythema from the ankle moving proximally to the tibial tuberosity. There are no ulcerations noted. No drainage noted. The skin is shiny and taut secondary to edema and trophic changes with hemosiderin deposition secondary to chronic venous insufficiency. There is lipodermatosc lerosis noted to bilateral lower extremities secondary to his chronic venous stasis. Patient has been seen in past by podiatry service with multiple ulcerations to the lower extremities and at that time had refused debridement, refused wound care center, and refused compression stockings as he states this causes pain. I have reviewed duplex ultrasound from 07/30/2023 which was negative for DVT. WBC WNL, currently on IV Vanco/Zosyn. Dressings consist of dry sterile dressing and Jaden wrap compression of the lower extremity to the tibial tuberosity bilateral. Dressing may be changed every other day. Wound nurse is assisting in dressing changes. I did discuss with patient upon discharge from hospital he does need to be fitted for bilateral compression stocking 20 to 30 mmHg from the toes to the tibial tuberosity. Discussed application of the stockings from the moment he wakes up in the morning until he goes to bed. Patient may remove stockings when sleeping at night. Discussed redonning the next morning. Discussed his risk for continued chronic cellulitis, worsening edema, and eventual reulceration of his lower extremities. He states understanding of this but has history of non compliance and compression therapy. It was also discussed low sodium intake and continued elevation of lower extremities to aid in his edema control. Medicine team currently following for medical management, they are greatly appreciated. Wound nurse following for dressing changes, she is appreciated At this time no surgical intervention anticipated from podiatric standpoint. Do recommend continued use of compression therapy, moisturizing skin lotion, and daily self-care to keep sites clean. Recommending SNF again on discharge for continued care as patient has history of worsening upon return to home. If patient reulcerates or condition worsens please do not hesitate to reach out. Podiatry to sign off Jr. Daphne Xiong.P.M. [facility] [phone] HPI Consult Data Date of Consult: 09/03/23 HPI Narrative Reason for Consultation: Bilateral lower extremity edema/chronic venous stasis HPI Narrative: TURNER YAN, is a 72 M who presents to [facility] ED on 09/02/2023 secondary to recurrent bilateral lower extremity cellulitis and edema. Patient states difficulty walking and complains of pain in the lower extremities. Patient states he does have a hospital bed at home and does lay flat but states he continues to wake up with continued redness of the lower e xtremities and complaints of blistering skin. Patient has had recurrent bilateral lower extremity cellulitis since 2021 with history of ulcerations of the lower extremities secondary to his edema. Patient has refused wound care in past including debridements and refuses to wear compression stockings. He did have a recent hospitalization from 07/28 to 08/02/2023 due to the same concerns. At that time he was treated with vancomycin and Zosyn IV during his hospital stay and did have improvement in redness and swelling but does return for recurring cellulitis. He he denies N/V/F/chills. In ED patient was worked up and noted to be hemodynamically stable and afebrile with normal WBC. He also jimenes d a previous ultrasound on 07/30/2023 which was negative for DVT. Patient was consulted to podiatry for examination of lower extremities and recommendations on care. [facility] Medical History (Updated 09/03/23 @ 18:[address] Hiram Cardenas, DPCarter) Adult failure to thrive Ambulatory dysfunction Anomalous origin of coronary artery Anticoagulant long-term use Arthritis Atherosclerotic heart disease of [place] coronary artery without angina pectoris Atrial fibrillation Atrial fibrillation Benign neoplasm of middle ear, nasal cavity and accessory sinuses Bilateral cellulitis of lower leg BPH (benign prostatic hyperplasia) Candidiasis of skin Cardiac murmur, unspecified Cellulitis Cellulitis of right lower limb Cervical disc disease Chronic anticoagulation Chronic venous stasis dermatitis Chronic venous stasis dermatitis of both lower extremities CPAP (continuous positive airway pressure) dependence CVA (cerebral vascular accident) Debility Deep venous thrombosis Dyspnea on minimal exertion Essential (primary) hypertension Former smoker FTT (failure to thrive) in adult Generalized weakness GERD (gastroesophageal reflux disease) Hemiplegia affecting right dominant side Hyperglycemia Hyperlipidemia Hypertension Leg pain Low back pain Lymphedema Lymphedema Lymphedema of both lower extremities New onset atrial fibrillation (03/24/20) 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 Obesity ANDREE (obstructive sleep apnea) Pain in right lower leg Pain of left great toe Pain of left lower extremity due to injury Pneumonia Rotator cuff tear arthropathy of right shoulder Skin ulcer of left great toe with fat layer exposed Sleep apnea Tinea cruris Toe ulcer Traumatic hematoma of left lower leg Venous insufficiency Home Medications rivaroxaban 20 mg tablet (Xarelto) 20 mg PO DINNER BLOOD THINNER #0 tabs 12/28/21 [Rx Last Taken 09/01/23] losartan 100 mg tablet 100 mg PO DAILY blood pressure 30 days #30 tabs 03/15/23 [Rx Last Taken 09/01/23] potassium chloride 20 mEq tablet,extended release(part/cryst) (Klor-Con M) 20 meq PO BIDCM potassium #0 tabs 03/29/23 [Rx Last Taken 09/01/23] furosemide 40 mg tablet 40 mg PO DAILY diuretic 7 days #7 tabs 04/20/23 [Rx Last Taken 09/01/23] Lactobacil rhamnosus GG 10 billion cell-inulin 200 mg sprinkle capsule (CaseReader) 1 cap PO BID 09/02/23 [History Last Taken 09/01/23] amlodipine 5 mg tablet 5 mg PO DAILY 09/02/23 [History Last Taken 09/01/23] gabapentin 300 mg capsule 300 mg PO TID 09/02/23 [History Last Taken 09/01/23] hydroxyzine HCl 25 mg tablet 25 mg PO Q12H PRN itching 09/02/23 [History Last Taken 09/01/23] multivitamin with folic acid 400 mcg tablet (Daily-Viridiana (with folic acid)) 1 tab PO DAILY 09/02/23 [History Last Taken 09/01/23] Allergy/AdvReac Type Severity Reaction Status Date / Time diphenhydramine AdvReac Mild Abd Verified 09/02/23 13:03 [From Benadryl] cramps/diarrhea ibuprofen [From Motrin] AdvReac Nausea Verified 09/02/23 13:03 Family History Mother CAD (coronary artery disease) Hypertension History of cardiac radiofrequency ablation Sister Hypertension Other Arthritis Surgical History H/O cervical spine surgery History of bursectomy History of carpal tunnel release History of carpal tunnel surgery History of coronary artery stent placement (11/29/10) History of coronary artery stent placement History of fusion of cervical spine History of herniorrhaphy History of removal of cyst History of transurethral resection of prostate Social History household members: other details: Older son Naeem. Smoking Status: Former smoker alcohol intake: never substance use type: does not use ROS Constitutional Constitutional: Denies anorexia, chills, fever(s) or malaise Eyes Eyes: Denies diplopia, erythema or loss of vision ENT HEENT: Denies dysphagia, nasal congestion or sore throat Cardiovascular Cardiovascular: Denies chest pain, claudication or palpitations Respiratory/Chest Respiratory/Chest: Denies cough, dyspnea, shortness of breath at rest or wheezing Gastrointestinal Gastrointestinal: Denies abdominal pain, constipation, diarrhea, nausea or vomiting Genitourinary Genitourinary: Denies dysuria, hematuria or urinary urgency Musculoskeletal Musculoskeletal: Denies joint pain, joint stiffness or joint swelling Integumentary Integumentary: Denies jaundice, pruritus or rash Neurologic Neurologic: Denies dizziness, numbness or seizures Endocrine Endocrinology: Denies cold intolerance, heat intolerance or polydipsia Hematologic/Lymphatic Hematologic/Lymphatic: Denies easy bleeding or easy bruising Physical Exam Const alert, oriented x3 and no apparent distress General Appearance: cooperative HEENT normocephalic Eyes General Eye: normal appearance of both eyes Neck General: normal visual inspection Lymph Lymphatic: no lymphadenopathy noted and no lymphedema noted Chest inspection of chest normal Resp normal respiratory effort Cardio regular rate and regular rhythm Extremity normal to inspection, normal capillary refill and no joint enlargement Extremity Narrative: Vascular: DP and PT pulses nonpalpable secondary to edema bilateral. Capillary fill time less than 5 seconds to digits bilateral. Hair growth absent to digits bilateral. Temperature gradient is warm to warm proximal to distal secondary to cellulitis complicated by chronic venous stasis. Neurological: There is some weakness of the right lower extremity versus his left lower extremity that is consistent with prior examination. Gross sensation is intact. Protective sensation is intact. No focal deficits noted. Musculoskeletal: Muscle strength is 5 of 5 age-appropriate. Decreased range of motion of the ankle joint dorsiflexion with the knee extended without pain or crepitus bilateral. Decreased range of motion of the first metatarsophalangeal joint without pain or crepitus bilateral. Dermatological: Bilateral lower extremity demonstrates pitting edema and erythema from the ankle moving proximally to the tibial tuberosity. There are no ulcerations noted. No drainage noted. The skin is shiny and taut secondary to edema and trophic changes with hemosiderin deposition secondary to chronic venous insufficiency. There is lipodermatosclerosis noted to bilateral lower extremities. Skin no jaundice General Skin Exam: venous stasis and dermatitis Neuro moves all extremities Lab / Micro Data 09/03/23 05:23 09/03/23 05:23 Labs: Laboratory Results - last 24 hr 09/03/23 05:23: WBC 7.7, RBC 4.15 L, Hgb 12.3 L, Hct 38.4 L, MCV 92.5, MCH 29.6, MCHC 32.0, RDW Std Deviation 53.1 H, RDW Coeff of Naz 15.6 H, Plt Count 186, MPV 9.5, Sodium 139, Potassium 4.1, Chloride 110 H, Carbon Dioxide 24.0, Anion Gap 5, BUN 16, Creatinine 0.92, Estim Creat Clear Calc 82.89, Est GFR (MDRD) Af Amer 104, Est GFR (MDRD) Non-Af 86, BUN/Creatinine Ratio 17.5, Glucose 107 H, Calcium 8.7 Imaging Radiology Impression Testicular Ultrasound 09/03/23 08:00 IMPRESSION: Bilateral large hydroceles. Scrotal edema. Electronically Signed: Ramiro Norris MD at 14:43 EDT ,
[2023-09-03] MEDS: oxyCODONE 5 MG Tablet PO ×2 (17:53→22:59)
[2023-09-03 22:00] VITALS: RESP 15; O2SAT 95
[2023-09-03 22:07] VITALS: BP 129/73; PULSE 64; RESP 15; TEMP 37.1; O2SAT 95
[2023-09-03] MEDS: Atorvastatin Calcium 40 MG Tablet PO (22:21)
[2023-09-04 04:23] VITALS: BP 122/70; PULSE 77; RESP 15; TEMP 36.8; O2SAT 94
[2023-09-04 04:26] VITALS: RESP 15; O2SAT 93
[2023-09-04] MEDS: Gabapentin 300 MG Capsule PO ×3 (05:44→21:03)
[2023-09-04 07:22] LABS: Absolute Lymphocyte Count 1.05 X10^3/uL (0.83-4.51); Absolute Neutrophil Count 5.4 X10^3/uL (2.0-7.7); Basophil# 0.03 X10^3/uL; Basophil% 0.4 % (0-1); Eosinophil# 0.56 X10^3/uL; Eosinophils% 7.3 % (0-5); Hematocrit 40.5 % (40-54); Hemoglobin 13.2 g/dL (13.0-16.5); Lymphocyte # 1.05 X10^3/ul (0.83-4.51); Lymphocyte % 13.7 % (19-41); Mean Corp Hgb Conc 32.6 g/dL (32-36); Mean Corpuscular Hgb 29.8 pg (27.0-32.0); Mean Corpuscular Volume 91.4 fL (80-94); Mean Platelet Vol. 9.6 fl (6.2-12.0); Monocyte# 0.63 X10^3/uL; Monocyte% 8.2 % (0-10); NRBC Flagged by Analyzer 0 % (0-5); Neutrophil # 5.38 X10^3/uL (2.7-7.7); Platelet Count 182 K/mm3 (150-450); RBC Distribution Width CV 15.3 % (11.6-14.6); RBC Distribution Width SD 50.9 fl (35.1-43.9); Red Blood Count 4.43 M/mm3 (4.6-6.2); White Blood Count 7.7 K/mm3 (4.4-11.0)
[2023-09-04 07:53] LABS: Anion Gap 6 (5-15); BUN 14 mg/dL (7-18); BUN/Creat Ratio 15.1 RATIO (10-20); Calcium,Total 8.8 mg/dL (8.5-10.1); Chloride 105 mmol/L (98-107); Creatinine, Serum 0.93 mg/dL (0.70-1.30); EST Glomerular Filtration Rate 85 mL/min (>60); Est Glom Filt Rate - Afr Amer 103 mL/min (>60); Estimated Creatinine Clearance 81.99 ml/min; Glucose 93 mg/dL (74-106); Potassium 3.5 mmol/L (3.5-5.1); Sodium Level 138 mmol/L (136-145)
--- NOTE | 2023-09-04 08:10 | PCM.PN.HOSP ---
Reason for Visit Reason for Visit: Diagnoses Venous insufficiency (chronic) (peripheral) (09/02/23) Cellulitis of right lower limb (09/02/23) Cellulitis of left lower limb (09/02/23) Panniculitis, unspecified (09/02/23) Other specified disorders of the male genital organs (09/02/23) Other malaise (09/02/23) Subjective Subjective Feeling well. Decreased LE edema. Objective Data Objective Data Vital Signs: Vital Signs Temp Pulse Resp BP Pulse Ox O2 Del Method 36.8 C 77 15 122/70 H 93 Room Air 09/04/23 04:23 09/04/23 04:23 09/04/23 04:26 09/04/23 04:23 09/04/23 04:26 09/04/23 04:26 Oxygen Delivery Method Room Air Weight: 105.715 kg Body Mass Index (BMI) 36.5 Intake & Output: Intake and Output for Last 24 Hours 09/02/23 09/03/23 09/04/23 23:59 23:59 23:59 Intake Total 640 / 640 1800 / 1800 300 / 300 Output Total 400 / 600 1950 / 2950 1350 / 1350 Balance 240 / 40 -150 / -1150 -1050 / -1050 Lab / Micro Data 09/04/23 06:46 09/04/23 06:46 Labs: Laboratory Results - last 24 hr 09/04/23 06:46: WBC 7.7, RBC 4.43 L, Hgb 13.2, Hct 40.5, MCV 91.4, MCH 29.8, MCHC 32.6, RDW Std Deviation 50.9 H, RDW Coeff of Naz 15.3 H, Plt Count 182, MPV 9.6, Immature Gran % (Auto) 0.400, Neut % (Auto) 70.0, Lymph % (Auto) 13.7 L, Sanders % (Auto) 8.2, Eos % (Auto) 7.3 H, Baso % (Auto) 0.4, Absolute Neuts (auto) 5.4, Absolute Lymphs (auto) 1.05, Nucleated RBC % 0, Sodium 138, Potassium 3.5, Chloride 105, Carbon Dioxide 27.0, Anion Gap 6, BUN 14, Creatinine 0.93, Estim Creat Clear Calc 81.99, Est GFR (MDRD) Af Amer 103, Est GFR (MDRD) Non-Af 85, BUN/Creatinine Ratio 15.1, Glucose 93, Calcium 8.8 Radiography Diagnostic Testing: Radiology Impression Testicular Ultrasound 09/03/23 08:00 IMPRESSION: Bilateral large hydroceles. Scrotal edema. Electronically Signed: Ramiro Norris MD at 14:43 EDT , Physical Exam Const alert and no apparent distress Resp normal respiratory effort, no retractions, no use of accessory muscles and clear to auscultation bilaterally Cardio regular rate, regular rhythm, S1 normal heart sound and S2 normal heart sound GI normal to inspection, nondistended, normoactive bowel sounds, soft to palpation, non-tender and non-distended Extremity Extremity Narrative: bilateral LE edema. Neuro Sensorium / Orientation: awake and alert Assessment & Plan Assessment/Plan (1) Cellulitis of both lower extremities: (2) Debility: (3) Scrotal erythema: PLAN: Plan Recurrent bilateral lower extremity edema clinically, I do not feel is cellulitis. I discontinued abx on 09/02. Continue with IV furosemide, fluid restrict Acute on chronic debility PT/OT/case management consulted. Follow up therapy scores, likely will need SNF again on discharge. Recurrent mild scrotal edema and erythema, history of tinea corporis infection of scrotum Has some scrotal edema US showed bilateral large hydroceles. follow up with as outpt. No evidence of cellulitis. Chronic medical conditions: Obesity: BMI 36 on admit. Complicates hospital course, care and prognosis. Paroxysmal A-fib, history of DVT: Stable. Continue home Xarelto, not on any rate controlling agents. History of CVA with right-sided hemiplegia: Continue home Xarelto and statin. CAD s/p stenting, hypertension, hyperlipidemia: Continue home Xarelto, statin, amlodipine, Lasix and losartan. BPH s/p TURP Lower extremity neuropathy: Continue home gabapentin. DVT prophylaxis: not indicated as he is on rivaroxaban CODE STATUS: Full code, verified Charges/Coding Visit Charges Inpatient E&M: 27423 Subs Hosp L2
[2023-09-04] MEDS: Potassium Chloride Oral Tablet 20 MEQ PO ×2 (08:35→17:25)
[2023-09-04] MEDS: Losartan Potassium 100 MG Tablet PO (08:35)
[2023-09-04] MEDS: Multivitamins,Therapeutic Tablet 1 TABLET PO (08:35)
[2023-09-04] MEDS: Furosemide 40 MG/4 ML Vial IV ×2 (08:35→17:25)
[2023-09-04] MEDS: Menthol/Lanolin/Calamine/Znox 113 GM Tube 1 APPLIC TOPICAL ×2 (08:35→21:02)
[2023-09-04] MEDS: Nystatin Powder 15gm Bottle 1 APPLIC TOPICAL ×2 (08:36→21:03)
[2023-09-04 09:07] VITALS: BP 143/82; PULSE 90; RESP 16; TEMP 37.2; O2SAT 97
[2023-09-04 11:21] VITALS: BP 119/79; PULSE 70; RESP 16; TEMP 37.1; O2SAT 96
--- NOTE | 2023-09-04 12:32 | CHAPLAIN ---
Type of Pastoral Visit _x__ Initial Visit ___ Follow-up Visit ___ On-call Visit ___ General Patient Visit ___ Spiritual Assessment ___ Family Conference ___ Bereavement ___ Rapid Response ___ Code Blue ___ Other (describe below) Pastoral Care Referral From _x__ Patient ___ Family ___ Nurse ___ Physician ___ Senior Oracle Developer ___ Optical Instrument Repairer ___ Other (describe below) Sacrament/Intervention _x__ Active listening ___ Anointing ___ Bahai ___ Bereavement ___ Communion ___ Estefany exploration ___ ___ Life review _x__ Prayer ___ Reconciliation ___ Sacrament of Sick _x__ Supportive presence ___ Wedding ___ Other (describe below) Pastoral Comments conversation of casual things and his current feelings; pt shows humor with joking about his situation and the names he gives to his medical devices; pt suggests that a prayer is only thing you can do; time and prayer given
--- NOTE | 2023-09-04 13:21 | CASEMGMT ---
Social Work- A list of SNF providers including quality and resource use data and consistent with the patient?s preferred geographic region, medical needs, and insurance network were provided via the [employer] Guide Link. SW submitted referral to [facility] pt first choice; pt was not accepted. Pt stated his second choice is [facility]; pt was not accepted. SW submitted referral to [facility], [facility], and [facility] after meeting with pt who provided those facilities as next choices. SW will update pt on facility availability. LEIA Emerson
[2023-09-04 14:45] VITALS: BP 129/72; PULSE 77; RESP 16; TEMP 36.8; O2SAT 97
[2023-09-04] MEDS: Acetaminophen 325 MG Tablet 650 MG PO (15:25)
[2023-09-04] MEDS: oxyCODONE 5 MG Tablet PO ×2 (15:25→21:04)
[2023-09-04] MEDS: Rivaroxaban 20 MG Tablet PO (17:25)
[2023-09-04 20:58] VITALS: BP 126/86; PULSE 59; RESP 18; TEMP 36.8; O2SAT 97
[2023-09-04] MEDS: Atorvastatin Calcium 40 MG Tablet PO (21:03)
[2023-09-05 03:10] VITALS: BP 118/65; PULSE 79; RESP 18; TEMP 36.7; O2SAT 97
[2023-09-05] MEDS: Gabapentin 300 MG Capsule PO ×3 (06:23→22:04)
[2023-09-05] MEDS: oxyCODONE 5 MG Tablet PO ×2 (06:23→22:04)
[2023-09-05] MEDS: Acetaminophen 325 MG Tablet 650 MG PO ×2 (06:23→22:05)
[2023-09-05] MEDS: Furosemide 40 MG/4 ML Vial IV ×2 (08:26→17:25)
[2023-09-05] MEDS: Potassium Chloride Oral Tablet 20 MEQ PO ×2 (08:26→17:25)
[2023-09-05] MEDS: Multivitamins,Therapeutic Tablet 1 TABLET PO (08:26)
[2023-09-05] MEDS: Losartan Potassium 100 MG Tablet PO (08:26)
[2023-09-05] MEDS: Menthol/Lanolin/Calamine/Znox 113 GM Tube 1 APPLIC TOPICAL ×2 (08:27→22:07)
[2023-09-05] MEDS: Nystatin Powder 15gm Bottle 1 APPLIC TOPICAL ×2 (08:27→22:07)
--- NOTE | 2023-09-05 08:35 | PN.HOSP_ITS ---
Reason for Visit Reason for Visit: Diagnoses Venous insufficiency (chronic) (peripheral) (09/02/23) Cellulitis of right lower limb (09/02/23) Cellulitis of left lower limb (09/02/23) Panniculitis, unspecified (09/02/23) Other specified disorders of the male genital organs (09/02/23) Other malaise (09/02/23) Subjective Subjective Feeling well. No events overnight. Objective Data Objective Data Vital Signs: Vital Signs Temp Pulse Resp BP Pulse Ox O2 Del Method 36.7 C 79 18 118/65 97 Room Air 09/05/23 03:10 09/05/23 03:10 09/05/23 03:10 09/05/23 03:10 09/05/23 03:10 09/05/23 03:14 Oxygen Delivery Method Room Air Weight: 105.715 kg Body Mass Index (BMI) 36.5 Intake & Output: Intake and Output for Last 24 Hours 09/03/23 09/04/23 09/05/23 23:59 23:59 23:59 Intake Total 1800 / 1800 1400 / 1400 200 / 200 Output Total 1950 / 2950 3650 / 3950 650 / 650 Balance -150 / -1150 -2250 / -2550 -450 / -450 Lab / Micro Data 09/04/23 06:46 09/05/23 06:45 Physical Exam Const Constitutional Narrative: Up in chair. Afebrile. Nontoxic. Resp normal respiratory effort Extremity Extremity Narrative: still with bilateral LE edema, slightly less tight today. Assessment & Plan Assessment/Plan (1) Cellulitis of both lower extremities: (2) Debility: (3) Scrotal erythema: PLAN: Plan Acute on chronic HFpEF * with bilateral lower extremity edema * EF 65% on echo from 01/20/2023 * clinically, I do not feel is cellulitis. I discontinued abx on 09/02. * DC with BID furosemide, fluid restrict 1.5 liters/day, daily weights. * Continue with IV furosemide until discharged given ongoing edema. Acute on chronic debility * PT/OT/case management consulted. * Follow up therapy scores, likely will need SNF again on discharge. Recurrent mild scrotal edema and erythema, history of tinea corporis infection of scrotum * Has some scrotal edema * US showed bilateral large hydroceles. * follow up with as outpt. * No evidence of cellulitis. Chronic medical conditions: * Obesity: BMI 36 on admit. Complicates hospital course, care and prognosis. * Paroxysmal A-fib, history of DVT: Stable. Continue home Xarelto, not on any rate controlling agents. * History of CVA with right-sided hemiplegia: Continue home Xarelto and statin. * CAD s/p stenting, hypertension, hyperlipidemia: Continue home Xarelto, statin, amlodipine, Lasix and losartan. * BPH s/p TURP * Lower extremity neuropathy: Continue home gabapentin. DVT prophylaxis: not indicated as he is on rivaroxaban CODE STATUS: Full code, verified Disposition to SNF pending acceptance and approval. Charges/Coding Visit Charges Inpatient E&M: 89872 Subs Hosp L2
[2023-09-05 08:49] VITALS: BP 121/82; PULSE 88; RESP 16; TEMP 37.4; O2SAT 94
[2023-09-05 09:00] LABS: Anion Gap 3 (5-15); BUN 18 mg/dL (7-18); BUN/Creat Ratio 18.9 RATIO (10-20); Calcium,Total 8.7 mg/dL (8.5-10.1); Chloride 104 mmol/L (98-107); Creatinine, Serum 0.95 mg/dL (0.70-1.30); EST Glomerular Filtration Rate 82 mL/min (>60); Est Glom Filt Rate - Afr Amer 99 mL/min (>60); Estimated Creatinine Clearance 80.27 ml/min; Glucose 85 mg/dL (74-106); Potassium 3.2 mmol/L (3.5-5.1); Sodium Level 138 mmol/L (136-145)
--- NOTE | 2023-09-05 10:30 | CASEMGMT ---
Social Work- Clinical updates sent to referrals. HENS exemption started. LEIA Mcpherson
--- NOTE | 2023-09-05 10:44 | TREXTCAR_ITS ---
Diet Diet Order/Speech Therapy: 09/02/23 12:37 Diet: Consistent Carb - Calorie Controlled Food consistency:: Regular Liquid Consistency:: Regular/Thin How many daily calories?: 2000 calorie Wound(s) bilateral lower ext: Wound Type: scattered small weeping areas Dressing Change: dry dressings Problem/Diagnosis (1) Cellulitis of both lower extremities: Status: Deleted Code(s): L03.115 - Cellulitis of right lower limb; L03.116 - Cellulitis of left lower limb (2) Debility: Status: Acute Code(s): R53.81 - Other malaise (3) Scrotal erythema: Status: Resolved Code(s): N50.89 - Other specified disorders of the male genital organs Plan Acute on chronic HFpEF * with bilateral lower extremity edema * EF 65% on echo from 01/20/2023 * clinically, I do not feel is cellulitis. I discontinued abx on 09/02. * DC with BID furosemide, fluid restrict 1.5 liters/day, daily weights. * Continue with IV furosemide until discharged given ongoing edema. Acute on chronic debility * PT/OT/case management consulted. * Follow up therapy scores, likely will need SNF again on discharge. Recurrent mild scrotal edema and erythema, history of tinea corporis infection of scrotum * Has some scrotal edema * US showed bilateral large hydroceles. * follow up with as outpt. * No evidence of cellulitis. Chronic medical conditions: * Obesity: BMI 36 on admit. Complicates hospital course, care and prognosis. * Paroxysmal A-fib, history of DVT: Stable. Continue home Xarelto, not on any rate controlling agents. * History of CVA with right-sided hemiplegia: Continue home Xarelto and statin. * CAD s/p stenting, hypertension, hyperlipidemia: Continue home Xarelto, statin, amlodipine, Lasix and losartan. * BPH s/p TURP * Lower extremity neuropathy: Continue home gabapentin. DVT prophylaxis: not indicated as he is on rivaroxaban CODE STATUS: Full code, verified Disposition to SNF pending acceptance and approval. Allergies/Procedures Done in Hospital Allergies diphenhydramine (From Benadryl) Adverse Reaction (Mild, Verified 09/02/23 13:03) Abd cramps/diarrhea ibuprofen (From Motrin) Adverse Reaction (Verified 09/02/23 13:03) Nausea Type of Care/Length of Stay Estimated LOS: Convalescent Care Less Than 30 days Type of Care Needed: Skilled Rehab Potential: Fair Prognosis: Fair Additional Orders/Day of Discharge Day of Discharge: 09/07/23 Discharge Plan Admission Admit Date/Time: 09/02/23 11:22 Primary Reason for Your Visit: CHF exacerbation. Attending Provider: Kervin Ortiz Primary Care Provider: Shanda Jensen NP Consulting Providers: Larry Howard; Hiram Cardenas Discharge Orders/Prescriptions Prescriptions: New atorvastatin 40 mg Tablet 40 mg PO QHS Qty: 0 0RF Continued Xarelto 20 mg Tablet 20 mg PO DINNER Qty: 0 0RF losartan 100 mg Tablet 100 mg PO DAILY 30 Days Qty: 30 0RF potassium chloride [Klor-Con M20] 20 mEq Tablet,Er Particles/Crystals 20 meq PO BIDCM Qty: 0 0RF gabapentin 300 mg capsule 300 mg PO TID multivitamin with folic acid [Daily-Viridiana (with folic acid)] 400 mcg tablet 1 tab PO DAILY [facility] 10 billion cell -200 mg capsule, sprinkle 1 cap PO BID Changed furosemide 40 mg tablet 40 mg PO BIDCM 30 Days Qty: 60 0RF Discontinued amlodipine 5 mg tablet 5 mg PO DAILY hydroxyzine HCl 25 mg tablet 25 mg PO Q12H PRN (Reason: itching) Referrals / Follow Up: [facility] [Provider Group] - Within 1 Month Shanda Jensen NP, FUEL CELL ENGINEER-C [Primary Care Provider] - Within 2 Weeks Disposition Disposition (needs filled in before D/C Order can be placed): Group Home Facility
[2023-09-05 11:15] VITALS: BP 102/67; PULSE 76; RESP 16; TEMP 36.8; O2SAT 93
[2023-09-05 15:41] VITALS: BP 104/69; PULSE 81; RESP 16; TEMP 36.8; O2SAT 95
--- NOTE | 2023-09-05 16:09 | CASEMGMT ---
Social Work Pt's facility of choice is [facility]. Referral sent yesterday with no decision of acceptance or denial at this time. Multiple messages sent through [employer]. JESSIE also called and left voice messages for Admission person Dahlia, Sql Report Writer Courtney and blood bank order control clerk requesting determination of acceptance be communicated with JESSIE. LEIA Chen
[2023-09-05] MEDS: Rivaroxaban 20 MG Tablet PO (17:25)
[2023-09-05] MEDS: 0.9% Saline Lock 10 ML Syringe IV (17:25)
[2023-09-05 21:57] VITALS: BP 155/97; PULSE 66; RESP 18; TEMP 36.9; O2SAT 96
[2023-09-05] MEDS: Atorvastatin Calcium 40 MG Tablet PO (22:06)
[2023-09-06 02:53] VITALS: BP 113/60; PULSE 70; RESP 16; TEMP 36.8; O2SAT 92
[2023-09-06] MEDS: Gabapentin 300 MG Capsule PO ×3 (05:03→22:55)
[2023-09-06] MEDS: Furosemide 40 MG/4 ML Vial IV ×2 (08:24→17:42)
[2023-09-06] MEDS: Losartan Potassium 100 MG Tablet PO (08:24)
[2023-09-06] MEDS: 0.9% Saline Lock 10 ML Syringe IV ×2 (08:24→17:42)
[2023-09-06] MEDS: Multivitamins,Therapeutic Tablet 1 TABLET PO (08:24)
[2023-09-06] MEDS: Nystatin Powder 15gm Bottle 1 APPLIC TOPICAL ×2 (08:25→22:55)
[2023-09-06] MEDS: Menthol/Lanolin/Calamine/Znox 113 GM Tube 1 APPLIC TOPICAL ×2 (08:25→22:56)
[2023-09-06] MEDS: Acetaminophen 325 MG Tablet 650 MG PO (08:28)
[2023-09-06] MEDS: Potassium Chloride Oral Tablet 20 MEQ PO ×2 (08:31→17:42)
--- NOTE | 2023-09-06 08:45 | CASEMGMT ---
Social Work VM's left with admissions worker, merchandise coordinator and platform operations director at [facility] to clarify if pt has been accepted. Message also sent in [facility]. If [facility] does not reply soon, SW will proceed with pt's next choice of facility. Referral sent to [facility] on 09/03 with no determination of acceptance or communication. LEIA Chen
--- NOTE | 2023-09-06 09:28 | CASEMGMT ---
Social Work- Pt states that he is changing FOC to [facility]. [facility] was advised and asked to start precert. LEIA Mcpherson
[2023-09-06 10:00] VITALS: BP 131/75; PULSE 75; RESP 14; TEMP 36.8; O2SAT 94
[2023-09-06] MEDS: Potassium Chloride Oral Tablet 20 MEQ 40 MEQ PO (10:36)
[2023-09-06 14:00] VITALS: BP 138/93; PULSE 68; RESP 15; TEMP 36.8; O2SAT 95
--- NOTE | 2023-09-06 14:33 | PN.HOSP_ITS ---
Reason for Visit Reason for Visit: Diagnoses Venous insufficiency (chronic) (peripheral) (09/02/23) Cellulitis of right lower limb (09/02/23) Cellulitis of left lower limb (09/02/23) Panniculitis, unspecified (09/02/23) Other specified disorders of the male genital organs (09/02/23) Other malaise (09/02/23) Subjective Subjective Feels well. Notes ongoing decreased edema in LE. Objective Data Objective Data Vital Signs: Vital Signs Temp Pulse Resp BP Pulse Ox O2 Del Method 36.8 C 68 15 138/93 H 95 Room Air 09/06/23 14:00 09/06/23 14:00 09/06/23 14:00 09/06/23 14:00 09/06/23 14:00 09/06/23 14:00 Oxygen Delivery Method Room Air Weight: 105.715 kg Body Mass Index (BMI) 36.5 Intake & Output: Intake and Output for Last 24 Hours 09/04/23 09/05/23 09/06/23 23:59 23:59 23:59 Intake Total 1400 / 1400 1150 / 1550 1400 / 1400 Output Total 3650 / 3950 1150 / 1150 1250 / 1250 Balance -2250 / -2550 0 / 400 150 / 150 Lab / Micro Data 09/04/23 06:46 09/05/23 06:45 Physical Exam Const alert and no apparent distress HEENT head/scalp atraumatic and moist oral mucous membranes Resp normal respiratory effort, no retractions, no use of accessory muscles and clear to auscultation bilaterally Cardio regular rate, regular rhythm, S1 normal heart sound and S2 normal heart sound GI normal to inspection, nondistended, normoactive bowel sounds, soft to palpation, non-tender and non-distended Extremity normal to inspection and full ROM Neuro Sensorium / Orientation: awake and alert Assessment & Plan Assessment/Plan (1) Cellulitis of both lower extremities: (2) Debility: (3) Scrotal erythema: PLAN: Plan Acute on chronic HFpEF * with bilateral lower extremity edema * EF 65% on echo from 01/20/2023 * clinically, I do not feel is cellulitis. I discontinued abx on 09/02. * DC with BID furosemide, fluid restrict 1.5 liters/day, daily weights. * Continue with IV furosemide until discharged given ongoing edema. * Continue losartan Acute on chronic debility * PT/OT/case management consulted. * Follow up therapy scores, likely will need SNF again on discharge. Recurrent mild scrotal edema and erythema, history of tinea corporis infection of scrotum * Has some scrotal edema * US showed bilateral large hydroceles. * follow up with as outpt. * No evidence of cellulitis. Chronic medical conditions: * Obesity: BMI 36 on admit. Complicates hospital course, care and prognosis. * Paroxysmal A-fib, history of DVT: Stable. Continue home Xarelto, not on any rate controlling agents. * History of CVA with right-sided hemiplegia: Continue home Xarelto and statin. * CAD s/p stenting, hypertension, hyperlipidemia: Continue home Xarelto, statin, amlodipine, Lasix and losartan. * BPH s/p TURP * Lower extremity neuropathy: Continue home gabapentin. DVT prophylaxis: not indicated as he is on rivaroxaban CODE STATUS: Full code, verified Disposition to SNF pending acceptance and approval. Patient medically stable for discharge. Charges/Coding Visit Charges Inpatient E&M: 70574 Subs Hosp L2
--- NOTE | 2023-09-06 16:41 | CASEMGMT ---
[facility]charge [facility] has obtained auth. SW updated. Mary Salcido DC Planning Asst.
[2023-09-06] MEDS: Rivaroxaban 20 MG Tablet PO (17:42)
[2023-09-06 20:00] VITALS: BP 118/73; PULSE 96; RESP 16; TEMP 36.6; O2SAT 98
[2023-09-06] MEDS: Atorvastatin Calcium 40 MG Tablet PO (22:55)
[2023-09-07 02:25] VITALS: BP 133/96; PULSE 65; RESP 18; TEMP 36.4; O2SAT 97
[2023-09-07] MEDS: Ondansetron 4 MG/2 ML Vial IV (02:29)
[2023-09-07] MEDS: oxyCODONE 5 MG Tablet PO ×2 (02:29→08:53)
[2023-09-07] MEDS: 0.9% Saline Lock 10 ML Syringe IV ×2 (02:30→08:54)
[2023-09-07] MEDS: Gabapentin 300 MG Capsule PO (06:11)
[2023-09-07 08:24] LABS: Anion Gap 6 (5-15); BUN 20 mg/dL (7-18); BUN/Creat Ratio 19.6 RATIO (10-20); Calcium,Total 8.9 mg/dL (8.5-10.1); Chloride 103 mmol/L (98-107); Creatinine, Serum 1.02 mg/dL (0.70-1.30); EST Glomerular Filtration Rate 76 mL/min (>60); Est Glom Filt Rate - Afr Amer 92 mL/min (>60); Estimated Creatinine Clearance 74.76 ml/min; Glucose 96 mg/dL (74-106); Potassium 3.6 mmol/L (3.5-5.1); Sodium Level 138 mmol/L (136-145)
[2023-09-07 08:41] VITALS: BP 108/67; PULSE 65; RESP 18; TEMP 36.7; O2SAT 93
[2023-09-07] MEDS: Acetaminophen 325 MG Tablet 650 MG PO (08:53)
[2023-09-07] MEDS: Multivitamins,Therapeutic Tablet 1 TABLET PO (08:54)
[2023-09-07] MEDS: Furosemide 40 MG/4 ML Vial IV (08:54)
[2023-09-07] MEDS: Menthol/Lanolin/Calamine/Znox 113 GM Tube 1 APPLIC TOPICAL (08:54)
[2023-09-07] MEDS: Potassium Chloride Oral Tablet 20 MEQ PO (08:54)
[2023-09-07] MEDS: Losartan Potassium 100 MG Tablet PO (08:55)
[2023-09-07] MEDS: Nystatin Powder 15gm Bottle 1 APPLIC TOPICAL (08:55)
--- NOTE | 2023-09-07 10:24 | TREXTCAR_ITS ---
Diet Diet Order/Speech Therapy: 09/05/23 13:56 Diet: Cardiac - Heart Healthy Food consistency:: Regular Liquid Consistency:: Regular/Thin Is pt able to select menu?: Yes Fluid restrict 1.5 liters/day. Routine Orders/Code Status Routine Lab Work: BMP (weekly) Code Status: Full Code Wound(s) bilateral lower ext: Wound Type: darío wraps jorge alberto LE Dressing Change: Adaptic Therapies Weight Bearing: Full weight bearing Physical Therapy: Eval and Treat Occupational Therapy: Eval and Treat Problem/Diagnosis (1) Debility: Status: Acute Code(s): R53.81 - Other malaise Plan Acute on chronic HFpEF * with bilateral lower extremity edema * EF 65% on echo from 01/20/2023 * clinically, I do not feel is cellulitis. I discontinued abx on 09/02. * DC with BID furosemide, fluid restrict 1.5 liters/day, daily weights. * Continue with IV furosemide until discharged given ongoing edema. * Continue losartan Acute on chronic debility * PT/OT/case management consulted. * Follow up therapy scores, likely will need SNF again on discharge. Recurrent mild scrotal edema and erythema, history of tinea corporis infection of scrotum * Has some scrotal edema * US showed bilateral large hydroceles. * follow up with as outpt. * No evidence of cellulitis. Chronic medical conditions: * Obesity: BMI 36 on admit. Complicates hospital course, care and prognosis. * Paroxysmal A-fib, history of DVT: Stable. Continue home Xarelto, not on any rate controlling agents. * History of CVA with right-sided hemiplegia: Continue home Xarelto and statin. * CAD s/p stenting, hypertension, hyperlipidemia: Continue home Xarelto, statin, amlodipine, Lasix and losartan. * BPH s/p TURP * Lower extremity neuropathy: Continue home gabapentin. DVT prophylaxis: not indicated as he is on rivaroxaban CODE STATUS: Full code, verified Disposition to SNF pending acceptance and approval. Patient medically stable for discharge. Allergies/Procedures Done in Hospital Allergies diphenhydramine [From Benadryl] Adverse Reaction (Mild, Verified 09/02/23 13:03) Abd cramps/diarrhea ibuprofen [From Motrin] Adverse Reaction (Verified 09/02/23 13:03) Nausea Procedures: None Type of Care/Length of Stay Estimated LOS: Convalescent Care Less Than 30 days Type of Care Needed: Skilled Rehab Potential: Good Prognosis: Good Dietary and Speech Recommendations Dietitian Recommendations/Changes: RD will change diet to Cardiac diet to manage medical conditions. Discharge Plan Admission Admit Date/Time: 09/02/23 11:22 Primary Reason for Your Visit: CHF exacerbation. Attending Provider: Kervin Ortiz Primary Care Provider: Shanda Jensen NP Consulting Providers: Larry Howard; Hiram Cardenas Discharge Orders/Prescriptions Prescriptions: No Action Xarelto 20 mg Tablet 20 mg PO DINNER Qty: 0 0RF losartan 100 mg Tablet 100 mg PO DAILY 30 Days Qty: 30 0RF potassium chloride [Klor-Con M20] 20 mEq Tablet,Er Particles/Crystals 20 meq PO BIDCM Qty: 0 0RF furosemide 40 mg tablet 40 mg PO DAILY 7 Days Qty: 7 0RF amlodipine 5 mg tablet 5 mg PO DAILY gabapentin 300 mg capsule 300 mg PO TID multivitamin with folic acid [Daily-Viridiana (with folic acid)] 400 mcg tablet 1 tab PO DAILY [facility] 10 billion cell -200 mg capsule, sprinkle 1 cap PO BID hydroxyzine HCl 25 mg tablet 25 mg PO Q12H PRN (Reason: itching) Hold Instructions: son forgot that he is not taking anymore Referrals / Follow Up: Shanda Jensen NP, [employer] [employer] [Primary Care Provider] -
--- NOTE | 2023-09-07 10:24 | PCM.TXEXTCAR ---
Diet Diet Order/Speech Therapy: 09/05/23 13:56 Diet: Cardiac - Heart Healthy Food consistency:: Regular Liquid Consistency:: Regular/Thin Is pt able to select menu?: Yes Fluid restrict 1.5 liters/day. Routine Orders/Code Status Routine Lab Work: BMP (weekly) Code Status: Full Code Wound(s) bilateral lower ext: Wound Type: darío wraps jorge alberto LE Dressing Change: Adaptic Therapies Weight Bearing: Full weight bearing Physical Therapy: Eval and Treat Occupational Therapy: Eval and Treat Problem/Diagnosis (1) Debility: Status: Acute Code(s): R53.81 - Other malaise Plan Acute on chronic HFpEF with bilateral lower extremity edema EF 65% on echo from 01/20/2023 clinically, I do not feel is cellulitis. I discontinued abx on 09/02. DC with BID furosemide, fluid restrict 1.5 liters/day, daily weights. Continue with IV furosemide until discharged given ongoing edema. Continue losartan Acute on chronic debility PT/OT/case management consulted. Follow up therapy scores, likely will need SNF again on discharge. Recurrent mild scrotal edema and erythema, history of tinea corporis infection of scrotum Has some scrotal edema US showed bilateral large hydroceles. follow up with as outpt. No evidence of cellulitis. Chronic medical conditions: Obesity: BMI 36 on admit. Complicates hospital course, care and prognosis. Paroxysmal A-fib, history of DVT: Stable. Continue home Xarelto, not on any rate controlling agents. History of CVA with right-sided hemiplegia: Continue home Xarelto and statin. CAD s/p stenting, hypertension, hyperlipidemia: Continue home Xarelto, statin, amlodipine, Lasix and losartan. BPH s/p TURP Lower extremity neuropathy: Continue home gabapentin. DVT prophylaxis: not indicated as he is on rivaroxaban CODE STATUS: Full code, verified Disposition to SNF pending acceptance and approval. Patient medically stable for discharge. Allergies/Procedures Done in Hospital Allergies diphenhydramine [From Benadryl] Adverse Reaction (Mild, Verified 09/02/23 13:03) Abd cramps/diarrhea ibuprofen [From Motrin] Adverse Reaction (Verified 09/02/23 13:03) Nausea Procedures: None Type of Care/Length of Stay Estimated LOS: Convalescent Care Less Than 30 days Type of Care Needed: Skilled Rehab Potential: Good Prognosis: Good Additional Orders/Day of Discharge Day of Discharge: 09/07/23 Dietary and Speech Recommendations Dietitian Recommendations/Changes: RD will change diet to Cardiac diet to manage medical conditions. Discharge Plan Admission Admit Date/Time: 09/02/23 11:22 Primary Reason for Your Visit: CHF exacerbation. Attending Provider: Kervin Ortiz Primary Care Provider: Shanda Jensen NP Consulting Providers: Larry Howard; Hiram Cardenas Discharge Orders/Prescriptions Prescriptions: New atorvastatin 40 mg Tablet 40 mg PO QHS Qty: 0 0RF Continued Xarelto 20 mg Tablet 20 mg PO DINNER Qty: 0 0RF losartan 100 mg Tablet 100 mg PO DAILY 30 Days Qty: 30 0RF potassium chloride [Klor-Con M20] 20 mEq Tablet,Er Particles/Crystals 20 meq PO BIDCM Qty: 0 0RF gabapentin 300 mg capsule 300 mg PO TID multivitamin with folic acid [Daily-Viridiana (with folic acid)] 400 mcg tablet 1 tab PO DAILY [facility] 10 billion cell -200 mg capsule, sprinkle 1 cap PO BID Changed furosemide 40 mg tablet 40 mg PO BIDCM 30 Days Qty: 60 0RF Discontinued amlodipine 5 mg tablet 5 mg PO DAILY hydroxyzine HCl 25 mg tablet 25 mg PO Q12H PRN (Reason: itching) Hold Instructions: son forgot that he is not taking anymore Referrals / Follow Up: [facility] [Provider Group] - Within 1 Month Shanda Jensen NP, RN [employer] [Primary Care Provider] - Within 2 Weeks Disposition Disposition (needs filled in before D/C Order can be placed): Nursing Home Facility
--- NOTE | 2023-09-07 10:33 | PCM.DC.SUM ---
Providers Date of Admission: 09/02/23 Primary Care Physician: Shanda Jensen, JULES-C Consultations 09/02/23 12:37 Consult: Onc/Wound/pressing department supervisor Routine Comment: Reason for Consult:: b/l LE venous stasis w/ recurrent cellulitis Consult: Podiatry Routine Consulting Provider: Hiram Cardenas Reason for Consult: recurrent LE cellulitis EMERGENT Consult: No MD Notified: Yes Date Notified: 09/03/23 Time Notified: 08:26 Method of Notification: Text Reason For Visit: B/I LE EDEMA W/CONCERNS FOR CELLULITIS, Diagnosis Discharge Diagnosis (1) Debility: Status: Acute Code(s): R53.81 - Other malaise Plan Acute on chronic HFpEF with bilateral lower extremity edema EF 65% on echo from 01/20/2023 clinically, I do not feel is cellulitis. I discontinued abx on 09/02. DC with BID furosemide, fluid restrict 1.5 liters/day, daily weights. Continue with IV furosemide until discharged given ongoing edema. Continue losartan Acute on chronic debility PT/OT/case management consulted. Follow up therapy scores, likely will need SNF again on discharge. Recurrent mild scrotal edema and erythema, history of tinea corporis infection of scrotum Has some scrotal edema US showed bilateral large hydroceles. follow up with as outpt. No evidence of cellulitis. Chronic medical conditions: Obesity: BMI 36 on admit. Complicates hospital course, care and prognosis. Paroxysmal A-fib, history of DVT: Stable. Continue home Xarelto, not on any rate controlling agents. History of CVA with right-sided hemiplegia: Continue home Xarelto and statin. CAD s/p stenting, hypertension, hyperlipidemia: Continue home Xarelto, statin, amlodipine, Lasix and losartan. BPH s/p TURP Lower extremity neuropathy: Continue home gabapentin. DVT prophylaxis: not indicated as he is on rivaroxaban CODE STATUS: Full code, verified Disposition to SNF pending acceptance and approval. Patient medically stable for discharge. Medications at Discharge Home Medications rivaroxaban 20 mg tablet (Xarelto) 20 mg PO DINNER BLOOD THINNER #0 tabs 12/28/21 losartan 100 mg tablet 100 mg PO DAILY blood pressure 30 days #30 tabs 03/15/23 potassium chloride 20 mEq tablet,extended release(part/cryst) (Klor-Con M) 20 meq PO BIDCM potassium #0 tabs 03/29/23 Lactobacil rhamnosus GG 10 billion cell-inulin 200 mg sprinkle capsule ([employer] [facility] [employer]) 1 cap PO BID 09/02/23 gabapentin 300 mg capsule 300 mg PO TID 09/02/23 multivitamin with folic acid 400 mcg tablet (Daily-Viridiana (with folic acid)) 1 tab PO DAILY 09/02/23 atorvastatin 40 mg tablet 40 mg PO QHS #0 tabs 09/07/23 furosemide 40 mg tablet 40 mg PO BIDCM diuretic 30 days #60 tabs 09/07/23 Hospital Course Operations None Summary of Care Provided Minutes Spent on Discharge: 32 Hospital Course: Patient presents with bilateral lower extremity edema. Initially felt to be cellulitis and is concerned about scrotal infection. Patient did have edema in his scrotum and ultrasound did show that he had bilateral hydroceles. No evidence of cellulitis. Discontinue antibiotics and observe the patient. Patient was diuresed with IV furosemide. Patient was -4 L of fluid during the course of his hospitalization. Patient will increase his furosemide from 40 mg daily to twice daily. Patient advised also to have fluid restriction of 1.5 L/day, sodium restriction of 2 g of salt per day. [facility]. Patient would benefit from that as he is weak and already is limited due to prior right-sided hemiparesis due to a stroke. Physical Exam Const alert and no apparent distress Constitutional Narrative: Still with bilateral lower extremity edema but seems less tight overall. No respiratory distress. No conversational dyspnea. Afebrile. Weight / BMI Weight Weight: 105.715 kg Body Mass Index (BMI) 36.5 ABG / Lab / Microbiology Data 09/04/23 06:46 09/07/23 07:05 Laboratory: Laboratory Results - last 24 hr 09/07/23 07:05: Sodium 138, Potassium 3.6, Chloride 103, Carbon Dioxide 29.0, Anion Gap 6, BUN 20 H, Creatinine 1.02, Estim Creat Clear Calc 74.76, Est GFR (MDRD) Af Amer 92, Est GFR (MDRD) Non-Af 76, BUN/Creatinine Ratio 19.6, Glucose 96, Calcium 8.9 D/C Instructions Discharge Diet: Low fat / Low cholesterol, 2000 mg Sodium Diet and - (1.5 L of fluid maximum per day) Meaningful Use Info Meaningful Use Meaningful Use Diagnoses (Choose all that apply): CHF CHF SB/ARB ordered at discharge?: Yes Documented LVEF (%): 65 Ischemic Stroke Statin Dosing Therapy Reference: STATIN DOSE THERAPY REFERENCE: * Patients > 75 years receive moderate or high dose statin therapy. * Patients 75 years or YOUNGER should receive HIGH intensity statin dose unless contraindicated. You will be required to document reason for non-treatment if statin daily dose does not meet guidelines. HIGH DOSE STATIN THERAPY DAILY Atorvastatin > than or = to 40 mg Rosuvastatin > than or = to 20 mg Amlodipine + Atorvastatin > than or = to 2.5/40 mg Ezetimibe + Simvastatin 10/80 mg Simvastatin 80mg Discharge Plan Admission Admit Date/Time: 09/02/23 11:22 Primary Reason for Your Visit: CHF exacerbation. Attending Provider: Kervin Ortiz Primary Care Provider: Shanda Jensen NP Consulting Providers: Larry Howard; Hiram Cardenas Discharge Orders/Prescriptions Prescriptions: New atorvastatin 40 mg Tablet 40 mg PO QHS Qty: 0 0RF Continued Xarelto 20 mg Tablet 20 mg PO DINNER Qty: 0 0RF losartan 100 mg Tablet 100 mg PO DAILY 30 Days Qty: 30 0RF potassium chloride [Klor-Con M20] 20 mEq Tablet,Er Particles/Crystals 20 meq PO BIDCM Qty: 0 0RF gabapentin 300 mg capsule 300 mg PO TID multivitamin with folic acid [Daily-Viridiana (with folic acid)] 400 mcg tablet 1 tab PO DAILY [facility] 10 billion cell -200 mg capsule, sprinkle 1 cap PO BID Changed furosemide 40 mg tablet 40 mg PO BIDCM 30 Days Qty: 60 0RF Discontinued amlodipine 5 mg tablet 5 mg PO DAILY hydroxyzine HCl 25 mg tablet 25 mg PO Q12H PRN (Reason: itching) Hold Instructions: son forgot that he is not taking anymore Referrals / Follow Up: [facility] [Provider Group] - Within 1 Month Shanda Jensen NP, [employer] [Primary Care Provider] - Within 2 Weeks Disposition Disposition (needs filled in before D/C Order can be placed): [facility] Facility Charges/Coding Visit Charges Inpatient E&M: 21569 Disch Hosp >30min
--- NOTE | 2023-09-07 11:22 | CASEMGMT ---
Social Work Precert has been obtained.? Physician updated and pt is ready for discharge today.? 7000 convalescent form completed in [facility] and sent along with discharge orders to [facility].? Transportation arranged with [facility] for 1:00pm pickup via wheelchair van.? SW met with pt and they are agreeable to discharge plan as stated above.? Pt son's, Naeem and Maco, and bedside nurse notified of discharge time. Disposition:?[facility], skilled level of care under convalescent stay. LEIA Mcpherson
== END 2023-09-07 12:52 | disposition skilled nursing facility (03) | DRG 291 ==
LOC: ED 09:53 → MS3 12:03
PROVIDERS: Admitting Provider Hospitalist; Emergency Provider Student in an Organized Health Care Education/Training Program; PCP Nurse Practitioner Family
DX: I11.0 Hypertensive heart disease with heart failure (principal); I50.33 Acute on chronic diastolic (congestive) heart failure; G81.91 Hemiplegia, unspecified affecting right dominant side; L97.913 Non-pressure chronic ulcer of unspecified part of right lower leg with necrosis of muscle; L97.923 Non-pressure chronic ulcer of unspecified part of left lower leg with necrosis of muscle; B37.9 Candidiasis, unspecified; G62.9 Polyneuropathy, unspecified; E66.9 Obesity, unspecified; Z79.01 Long term (current) use of anticoagulants; I48.0 Paroxysmal atrial fibrillation; E78.5 Hyperlipidemia, unspecified; I87.8 Other specified disorders of veins; M54.50 Low back pain, unspecified; I25.10 Atherosclerotic heart disease of native coronary artery without angina pectoris; I87.2 Venous insufficiency (chronic) (peripheral); M79.3 Panniculitis, unspecified; Z87.891 Personal history of nicotine dependence; Z68.36 Body mass index [BMI] 36.0-36.9, adult; N50.89 Other specified disorders of the male genital organs; Z86.73 Personal history of transient ischemic attack (TIA), and cerebral infarction without residual deficits; Z95.5 Presence of coronary angioplasty implant and graft; Z79.1 Long term (current) use of non-steroidal anti-inflammatories (NSAID); R53.81 Other malaise; R60.0 Localized edema; N43.3 Hydrocele, unspecified; Z86.718 Personal history of other venous thrombosis and embolism
CPT/HCPCS: 36415; 71045; 76870; 80048; 83880; 84484; 85025; 85027; 93005; 93976; 97110; 97162; 97166; 97530; 97535; 99285; J7040; J7050; A4216; J1940; J2405

== ENCOUNTER 2023-10-13 18:18 | Emergency (ER) | payer MEDICARE, SELFPAY ==
[2023-10-13 18:20] VITALS: BP 91/74; PULSE 83; RESP 18; TEMP 36.1; O2SAT 96
--- NOTE | 2023-10-13 18:31 | EKG12_ITS ---
Test Reason : DYSRHYTHMIA Blood Pressure : / mmHG Vent. Rate : 076 BPM Atrial Rate : 000 BPM P-R Int : 000 ms QRS Dur : 078 ms QT Int : 374 ms P-R-T Axes : 000 037 197 degrees QTc Int : 420 ms Atrial fibrillation Nonspecific ST-T changes Confirmed by KEO GLASS, LEONARD ([id number]), acquisitions editor GINGER YAN ([id number]) on 10/15/2023 9:55:39 AM Referred By: Confirmed By:ANITHA CROWLEY MD
--- NOTE | 2023-10-13 18:42 | EX.ED.DYSGE1 ---
HPI <VICENTE Parker - Last Filed: 10/13/23 20:56> History of Present Illness Chief Complaint: Fall Narrative Narrative: 72-year-old male with PMH of HTN, HLD, CAD, HFpEF, A-fib, DVT, CVA with right-sided hemiplegia presents after a fall. He has chronic mobility issues from the stroke and was standing in his cubicle shower with his son assisting him when his right leg gave out and he twisted and fell onto his buttocks. His back went up against the shower wall. He had no head injury or loss of consciousness. Has called the paramedics because he was unable to lift him up. While EMS was transferring him to the cot he had significant right hip pain which caused him to pass out briefly. He denies chest pain, shortness of breath, cough or recent illness. He was recently in rehab for bilateral leg lymphedema/debility and has been home for 2 weeks. He uses a hemiwalker to ambulate. [facility] <VICENTE Parker - Last Filed: 10/13/23 20:56> [facility] Medical History (Updated 10/13/23 @ 20:41 by VICENTE Parker) Congestive heart failure (CHF) Lipodermatosclerosis of both lower extremities Venous insufficiency (chronic) (peripheral) Ambulatory dysfunction Generalized weakness Tinea cruris Chronic venous stasis dermatitis Lymphedema Chronic anticoagulation Bilateral cellulitis of lower leg Candidiasis of skin Adult failure to thrive Hemiplegia affecting right dominant side Anticoagulant long-term use Pneumonia Cellulitis Atrial fibrillation CVA (cerebral vascular accident) Rotator cuff tear arthropathy of right shoulder CPAP (continuous positive airway pressure) dependence Sleep apnea FTT (failure to thrive) in adult Lymphedema of both lower extremities Chronic venous stasis dermatitis of both lower extremities Low back pain Hypertension Atrial fibrillation Debility Pain of left great toe Pain in right lower leg Hyperglycemia Leg pain Toe ulcer Lymphedema Non-pressure chronic ulcer of other part of right foot with necrosis of muscle Cellulitis of right lower limb Deep venous thrombosis 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 layer exposed Venous insufficiency Skin ulcer of left great toe with fat layer exposed Dyspnea on minimal exertion Anomalous origin of coronary artery Obesity New onset atrial fibrillation (03/24/20) Essential (primary) hypertension Pain of left lower extremity due to injury Former smoker Traumatic hematoma of left lower leg Arthritis Benign neoplasm of middle ear, nasal cavity and accessory sinuses ANDREE (obstructive sleep apnea) Cervical disc disease BPH (benign prostatic hyperplasia) GERD (gastroesophageal reflux disease) Hyperlipidemia Atherosclerotic heart disease of [place] coronary artery without angina pectoris Cardiac murmur, unspecified Home Medications ?Medication ?Instructions ?Recorded ?Last Taken ?Type rivaroxaban 20 mg tablet (Xarelto) 20 mg PO DINNER BLOOD THINNER #0 12/28/21 09/01/23 Rx tabs losartan 100 mg tablet 100 mg PO DAILY blood pressure 30 03/15/23 09/01/23 Rx days #30 tabs potassium chloride 20 mEq 20 meq PO BIDCM potassium #0 tabs 03/29/23 09/01/23 Rx tablet,extended release(part/cryst) (Klor-Con M) Lactobacil rhamnosus GG 10 billion 1 cap PO BID 09/02/23 09/01/23 History cell-inulin 200 mg sprinkle capsule (Patent Safari) gabapentin 300 mg capsule 300 mg PO TID 09/02/23 09/01/23 History atorvastatin 40 mg tablet 40 mg PO QHS #0 tabs 09/07/23 Unknown Rx furosemide 40 mg tablet 40 mg PO BIDCM diuretic 30 days 09/07/23 09/01/23 Rx #60 tabs hydrocodone-acetaminophen 5-325mg 1 tab PO Q6H PRN PRN Pain 3 days 10/13/23 Unknown Rx 5mg-325mg #10 TABLETS Allergy/AdvReac Type Severity Reaction Status Date / Time diphenhydramine (From AdvReac Mild Abd Verified 10/13/23 18:26 Benadryl) cramps/diarrhea ibuprofen (From Motrin) AdvReac Nausea Verified 10/13/23 18:26 Family History Mother CAD (coronary artery disease) Hypertension History of cardiac radiofrequency ablation Sister Hypertension Other Arthritis Surgical History History of coronary artery stent placement H/O cervical spine surgery History of herniorrhaphy History of carpal tunnel release History of transurethral resection of prostate History of coronary artery stent placement (11/29/10) History of bursectomy History of removal of cyst History of carpal tunnel surgery History of fusion of cervical spine Social History household members: other details: Older son Naeem. Smoking Status: Former smoker alcohol intake: never substance use type: does not use ROS <VICENTE Parker - Last Filed: 10/13/23 20:56> ROS ED ROS Narrative Constitutional: Negative for fever, chills, malaise. CVS: Negative for palpitations, chest pain. Respiratory: Negative for shortness of breath, cough. GI: Negative for abdominal pain, nausea, vomiting. Neuro: Negative for headache. Skin: Positive for skin tears. Musc: Positive for right hip pain, trauma. EXAM <VICENTE Parker - Last Filed: 10/13/23 20:56> Physical Exam Narrative Exam Narrative: CONST: Patient sitting in no acute distress. EYES: Normal inspection. NECK: Normal inspection. RESP: No respiratory distress, CTAB. CVS: Regular rate and rhythm, no murmur, no gallop. ABD: Soft and nontender, no guarding or rebound, nondistended. Back: Normal inspection, no midline tenderness. SKIN: Skin tear right lower leg. EXTREMITIES: Right hemiplegia with contracture right arm. 2+ radial pulses, no bony tenderness of upper extremities. Bilateral lower extremities have chronic lymphedema and venous stasis. No gross deformity, tender over right hip with stable pelvis. No tenderness of the delgadillo or foot. 2+ DP pulses. Skin tears right lateral calf. NEURO: Alert and answering questions appropriately. PSYCH: Normal affect. Const Vital Signs: 10/13/23 18:20 10/13/23 18:26 10/13/23 19:17 Temperature 97.0 F L Temperature Source Temporal Pulse Rate 83 76 Respiratory Rate 18 16 Respiratory Effort Normal Non-Labored Blood Pressure 91/74 129/93 H Blood Pressure Mean 79 105 Pulse Ox 96 97 Oxygen Delivery Method Room Air Room Air Room Air 10/13/23 21:00 Temperature Temperature Source Pulse Rate 77 Respiratory Rate 16 Respiratory Effort Blood Pressure 130/92 H Blood Pressure Mean 104 Pulse Ox 97 Oxygen Delivery Method Room Air <Paulino Anderson MD - Last Filed: 10/13/23 22:02> Physical Exam Const Vital Signs: 10/13/23 18:20 10/13/23 18:26 10/13/23 19:17 Temperature 97.0 F L Temperature Source Temporal Pulse Rate 83 76 Respiratory Rate 18 16 Respiratory Effort Normal Non-Labored Blood Pressure 91/74 129/93 H Blood Pressure Mean 79 105 Pulse Ox 96 97 Oxygen Delivery Method Room Air Room Air Room Air 10/13/23 21:00 Temperature Temperature Source Pulse Rate 77 Respiratory Rate 16 Respiratory Effort Blood Pressure 130/92 H Blood Pressure Mean 104 Pulse Ox 97 Oxygen Delivery Method Room Air [facility] <VICENTE Parker - Last Filed: 10/13/23 20:56> [facility] Narrative Medical decision making narrative: History gathered from: Patient and son Differential: Right hip contusion versus fracture Patient has limited mobility from history of CVA and right hemiplegia and fell while showering. No head injury. He complains of right hip pain and states while EMS was transferring him he had had a brief syncopal episode secondary to the pain. He did not syncopize with the initial fall or have any preceding symptoms, it sounds more mechanical in nature. He is awake alert and neurologically intact. Initial BP was 91/74 but recheck has stabilized to 120s/90s. Other vital signs stable. He has tenderness of the right hip and skin tears of the right lower leg; no other major injuries. CXR and right hip x-ray showed no acute findings. CBC and BMP unremarkable. EKG shows chronic A-fib. He was treated with IV morphine would like to go home states he can ambulate with his hemiwalker. I prescribed a short course of [place] and recommended he follow-up with his primary care doctor. His skin tears were dressed, tetanus updated, and I recommended wound care. He was discharged in stable condition. Lab Data Attestation: I reviewed the patient's lab results. Labs: Laboratory Results - last 24 hr 10/13/23 18:50 WBC 7.8 RBC 4.78 Hgb 14.9 Hct 44.8 MCV 93.7 MCH 31.2 MCHC 33.3 RDW Std Deviation 51.2 H RDW Coeff of Naz 14.8 H Plt Count 259 MPV 10.0 Immature Gran % (Auto) 0.300 Neut % (Auto) 71.5 H Lymph % (Auto) 14.0 L Castro % (Auto) 9.5 Eos % (Auto) 4.3 Baso % (Auto) 0.4 Absolute Neuts (auto) 5.6 Absolute Lymphs (auto) 1.09 Nucleated RBC % 0 Sodium 141 Potassium 3.4 L Chloride 104 Carbon Dioxide 30.0 Anion Gap 7 BUN 20 H Creatinine 1.19 Est GFR (MDRD) Af Amer 77 Est GFR (MDRD) Non-Af 64 BUN/Creatinine Ratio 16.8 Glucose 117 H Calcium 9.2 Radiography Diagnostic Testing: Clinical Impression(s) from Imaging Studies Chest X-Ray 10/13/23 19:05 IMPRESSION: There are no acute findings. Electronically Signed: Guicho Brown MD at 19:41 EDT , Hip/Pelvis X-Ray 10/13/23 19:05 IMPRESSION: No evidence of displaced pelvic or hip fracture. Electronically Signed: Guicho Brown MD at 19:32 EDT , ED attending interpretation of 1 view chest x-ray shows no evidence of displaced rib fracture or pneumothorax, no effusion. ED attending interpretation of right hip shows no pelvic or hip fracture. EKG Initial EKG: Attestation: I personally reviewed and interpreted this EKG as follows: Interpretation: Atrial Fibrillation Comments: Appears to be A-fib at 76 bpm no acute ischemic changes Appears similar to prior EKG 09/02/23 with A fib but at that time there was ST elevation in V1/V2 which is not present on today's <Paulino Anderson MD - Last Filed: 10/13/23 22:02> [facility] Lab Data Labs: Laboratory Results - last 24 hr 10/13/23 18:50 WBC 7.8 RBC 4.78 Hgb 14.9 Hct 44.8 MCV 93.7 MCH 31.2 MCHC 33.3 RDW Std Deviation 51.2 H RDW Coeff of Naz 14.8 H Plt Count 259 MPV 10.0 Immature Gran % (Auto) 0.300 Neut % (Auto) 71.5 H Lymph % (Auto) 14.0 L Castro % (Auto) 9.5 Eos % (Auto) 4.3 Baso % (Auto) 0.4 Absolute Neuts (auto) 5.6 Absolute Lymphs (auto) 1.09 Nucleated RBC % 0 Sodium 141 Potassium 3.4 L Chloride 104 Carbon Dioxide 30.0 Anion Gap 7 BUN 20 H Creatinine 1.19 Est GFR (MDRD) Af Amer 77 Est GFR (MDRD) Non-Af 64 BUN/Creatinine Ratio 16.8 Glucose 117 H Calcium 9.2 Radiography Diagnostic Testing: Clinical Impression(s) from Imaging Studies Chest X-Ray 10/13/23 19:05 IMPRESSION: There are no acute findings. Electronically Signed: Guicho Brown MD at 19:41 EDT , Hip/Pelvis X-Ray 10/13/23 19:05 IMPRESSION: No evidence of displaced pelvic or hip fracture. Electronically Signed: Guicho Brown MD at 19:32 EDT , Treatment and Re-Evaluation :: Dr. Anderson: I have personally performed a face to face assessment of the patient and have reviewed the SILVER Note. I performed a substantive portion of the visit including all aspects of the following. My gomez findings include: History is right hemiplegia, chronic right-sided weakness. Fell in shower 1 right leg gave out. Syncopal episode secondary to hip pain. Exam is GCS 15. ABCs intact. Irregularly irregular rhythm, rate controlled at 76 bpm. Positive skin tears right lower extremity anterior tibial area, chronic lymphedema and skin changes noted on right lower extremity as well. Medical Decision Making: Check x-rays of hip, check EKG. Check laboratory work, dress wounds. Discharge. Other additions or changes: [None] Discharge Plan Triage Chief Complaint: Fall ED Midlevel Provider: Anay Lombardo ED Provider: Paulino Anderson Dx/Rx/DC Orders Clinical Impression: Contusion of hip, right, Hemiplegia of right dominant side as late effect of cerebral infarction, Fall, Syncope Instructions: ED Contusion, Lower Extremity Prescriptions: New hydrocodone-acetaminophen 5-325 mg tablet 1 tab PO Q6H PRN PRN (Reason: Pain) 3 Days Qty: 10 0RF No Action Xarelto 20 mg Tablet 20 mg PO DINNER Qty: 0 0RF losartan 100 mg Tablet 100 mg PO DAILY 30 Days Qty: 30 0RF potassium chloride [Klor-Con M20] 20 mEq Tablet,Er Particles/Crystals 20 meq PO BIDCM Qty: 0 0RF gabapentin 300 mg capsule 300 mg PO TID [facility] 10 billion cell -200 mg capsule, sprinkle 1 cap PO BID atorvastatin 40 mg Tablet 40 mg PO QHS Qty: 0 0RF furosemide 40 mg tablet 40 mg PO BIDCM 30 Days Qty: 60 0RF Primary Care Provider: Shanda Jensen NP Referrals: Shanda Jensen NP, [facility] [Primary Care Provider] - Activity Restrictions/Additional Instructions: Ice your hip and take [place] as needed. You could also try Tylenol every 6 hours and take [place] as needed for breakthrough pain. Follow-up with your primary care doctor. Print Language: German Disposition Disposition: Home, Self Care
[2023-10-13 18:56] LABS: Absolute Lymphocyte Count 1.09 X10^3/uL (0.83-4.51); Absolute Neutrophil Count 5.6 X10^3/uL (2.0-7.7); Basophil# 0.03 X10^3/uL; Basophil% 0.4 % (0-1); Eosinophil# 0.33 X10^3/uL; Eosinophils% 4.3 % (0-5); Hematocrit 44.8 % (40-54); Hemoglobin 14.9 g/dL (13.0-16.5); Lymphocyte # 1.09 X10^3/ul (0.83-4.51); Mean Corp Hgb Conc 33.3 g/dL (32-36); Mean Corpuscular Hgb 31.2 pg (27.0-32.0); Mean Corpuscular Volume 93.7 fL (80-94); Monocyte# 0.74 X10^3/uL; Monocyte% 9.5 % (0-10); NRBC Flagged by Analyzer 0 % (0-5); Neutrophil # 5.55 X10^3/uL (2.7-7.7); Neutrophil % 71.5 % (47-70); Platelet Count 259 K/mm3 (150-450); RBC Distribution Width CV 14.8 % (11.6-14.6); RBC Distribution Width SD 51.2 fl (35.1-43.9); Red Blood Count 4.78 M/mm3 (4.6-6.2); White Blood Count 7.8 K/mm3 (4.4-11.0)
--- NOTE | 2023-10-13 19:05 | RAD_ITS ---
STUDY: XR Chest 1 View 10/13/2023 7:00 PM REASON FOR EXAM: Male, 72 years old. syncope COMPARISON: 5.5.24 TECHNIQUE: XR Chest 1 View FINDINGS: There is no demonstrated pleural abnormality. Cervical spine fusion hardware noted. Normal heart size. Normal mediastinum. Normal kalee. Prominent appearing increased interstitial lung markings. Normal visualized pulmonary arteries. There is atherosclerotic calcification of the aortic arch with tortuosity. There are diffuse degenerative changes of the visualized thoracic spine. There is degenerative osteoarthritis of the bilateral shoulders. There are no acute findings of the upper abdomen. RAD/Chest 1 View (Portable) IMPRESSION: There are no acute findings. Electronically Signed: Guicho Brown MD at 19:41 EDT ,
--- NOTE | 2023-10-13 19:05 | RAD_ITS ---
EXAM: XR RIGHT HIP WITH PELVIS WHEN PERFORMED, 2 OR 3 VIEWS CLINICAL INDICATION: pain TECHNIQUE: Two or three views of the right hip with pelvis when performed. COMPARISON: No relevant prior studies available. FINDINGS: BONES/JOINTS: Unremarkable. No displaced fracture. No destructive or sclerotic lesions. Note that overlapping bowel shadows may however obscure fine detail. Sacroiliac joint is unremarkable. No widening of the pubic symphysis. The articular structures are unremarkable. SOFT TISSUES: Unremarkable. No soft tissue swelling or gas. RAD/HIP, UNI W/ Pelvis 2-3 Views IMPRESSION: No evidence of displaced pelvic or hip fracture. Electronically Signed: Guicho Brown MD at 19:32 EDT Reading Location ID and State: [facility] / [place] , Service support ,
[2023-10-13 19:10] LABS: Anion Gap 7 (5-15); BUN 20 mg/dL (7-18); BUN/Creat Ratio 16.8 RATIO (10-20); Calcium,Total 9.2 mg/dL (8.5-10.1); Chloride 104 mmol/L (98-107); Creatinine, Serum 1.19 mg/dL (0.70-1.30); EST Glomerular Filtration Rate 64 mL/min (>60); Est Glom Filt Rate - Afr Amer 77 mL/min (>60); Glucose 117 mg/dL (74-106); Potassium 3.4 mmol/L (3.5-5.1); Sodium Level 141 mmol/L (136-145)
[2023-10-13 19:17] VITALS: BP 129/93; PULSE 76; RESP 16; O2SAT 97
[2023-10-13] MEDS: Morphine 4 MG/ML Syringe IV (19:41)
[2023-10-13] MEDS: Ondansetron 4 MG/2 ML Vial IV (19:41)
[2023-10-13 21:00] VITALS: BP 130/92; PULSE 77; RESP 16; O2SAT 97
--- NOTE | 2023-10-13 21:22 | NURSING ---
Pt ambulated in room with 2 assit and walker. Tolerated well with minimal pain.
[2023-10-13] MEDS: Diphth,Pertuss(Acell),Tet Vac 0.5 ML Vial IM (22:19)
[2023-10-13 22:20] VITALS: BP 134/77; PULSE 77; RESP 16; TEMP 36.7; O2SAT 98
== END 2023-10-13 22:24 | disposition home or self-care (01) ==
PROVIDERS: Physician Assistant; Emergency Provider Emergency Medicine; PCP Nurse Practitioner Family; Visit Provider Emergency Medicine
DX: S70.01XA Contusion of right hip, initial encounter (principal); G81.91 Hemiplegia, unspecified affecting right dominant side; I50.32 Chronic diastolic (congestive) heart failure; I11.0 Hypertensive heart disease with heart failure; Z87.891 Personal history of nicotine dependence; W19.XXXA Unspecified fall, initial encounter; M25.551 Pain in right hip; I25.10 Atherosclerotic heart disease of native coronary artery without angina pectoris; E78.5 Hyperlipidemia, unspecified; I87.2 Venous insufficiency (chronic) (peripheral); Z23 Encounter for immunization; Z86.718 Personal history of other venous thrombosis and embolism; G47.33 Obstructive sleep apnea (adult) (pediatric); Z95.5 Presence of coronary angioplasty implant and graft
CPT/HCPCS: 71045; 73502; 80048; 85025; 90471; 90715; 93005; 99283; A4216; J2405

== ENCOUNTER 2023-10-22 22:11 | Observation (INO) | payer MEDICARE, SELFPAY ==
[2023-10-22 22:16] VITALS: BP 101/50; PULSE 74; RESP 16; TEMP 36.9; O2SAT 95; BMI 41.4
[2023-10-22 22:19] VITALS: BP 101/50; PULSE 74; RESP 18; TEMP 36.9; O2SAT 95
--- NOTE | 2023-10-22 22:30 | EKG12_ITS ---
Test Reason : CELLULITIS Blood Pressure : / mmHG Vent. Rate : 074 BPM Atrial Rate : 000 BPM P-R Int : 000 ms QRS Dur : 122 ms QT Int : 418 ms P-R-T Axes : 000 -48 124 degrees QTc Int : 463 ms Atrial fibrillation Left axis deviation Left bundle branch block Abnormal ECG Confirmed by Hiram Russell ([id number]), editor school photograph GINGER YAN ([id number]) on 10/24/2023 11:34:14 AM Referred By: Confirmed By:Hiram Russell
--- NOTE | 2023-10-22 22:33 | EX.ED.DYSGE1 ---
HPI History of Present Illness Chief Complaint: Cellulitis Detail of Chief Complaint: Bilateral lower extremity worsening swelling. Weakness. Informant: patient Onset/Context/Timing Onset: Days Context: Gradual Onset Timing: Continuous Current Severity: Moderate Maximum Severity: Moderate Narrative Narrative: 72-year-old male extensive past medical history including A-fib, CAD with a stent, stroke, chronic lymphedema and venous stasis. Lives at home with his son but his son works and they have limited help at home when he is not there. Gentleman's been admitted to the hospital here in August and then was in a jail and just recently got discharged from the jail in the last 3 weeks. Alexandra has increased swelling in his lower extremities. Which she has had before. And he is too weak to even walk around the house. He denies vomiting or diarrhea or fever. He did fall a week or so ago and had a skin tear on his right lower extremity. He has been admitted for failure to thrive before. Prior similar symptoms: Yes Recent Illness/Hospitalization: Yes [facility] Medical History Congestive heart failure (CHF) Lipodermatosclerosis of both lower extremities Venous insufficiency (chronic) (peripheral) Ambulatory dysfunction Generalized weakness Tinea cruris Chronic venous stasis dermatitis Lymphedema Chronic anticoagulation Bilateral cellulitis of lower leg Candidiasis of skin Adult failure to thrive Hemiplegia affecting right dominant side Anticoagulant long-term use Pneumonia Cellulitis Atrial fibrillation CVA (cerebral vascular accident) Rotator cuff tear arthropathy of right shoulder CPAP (continuous positive airway pressure) dependence Sleep apnea FTT (failure to thrive) in adult Lymphedema of both lower extremities Chronic venous stasis dermatitis of both lower extremities Low back pain Hypertension Atrial fibrillation Debility Pain of left great toe Pain in right lower leg Hyperglycemia Leg pain Toe ulcer Lymphedema Non-pressure chronic ulcer of other part of right foot with necrosis of muscle Cellulitis of right lower limb Deep venous thrombosis 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 layer exposed Venous insufficiency Skin ulcer of left great toe with fat layer exposed Dyspnea on minimal exertion Anomalous origin of coronary artery Obesity New onset atrial fibrillation (03/24/20) Essential (primary) hypertension Pain of left lower extremity due to injury Former smoker Traumatic hematoma of left lower leg Arthritis Benign neoplasm of middle ear, nasal cavity and accessory sinuses ANDREE (obstructive sleep apnea) Cervical disc disease BPH (benign prostatic hyperplasia) GERD (gastroesophageal reflux disease) Hyperlipidemia Atherosclerotic heart disease of [place] coronary artery without angina pectoris Cardiac murmur, unspecified Home Medications ?Medication ?Instructions ?Recorded ?Last Taken ?Type rivaroxaban 20 mg tablet (Xarelto) 20 mg PO DINNER BLOOD THINNER #0 12/28/21 09/01/23 Rx tabs losartan 100 mg tablet 100 mg PO DAILY blood pressure 30 03/15/23 09/01/23 Rx days #30 tabs potassium chloride 20 mEq 20 meq PO BIDCM potassium #0 tabs 03/29/23 09/01/23 Rx tablet,extended release(part/cryst) (Klor-Con M) Lactobacil rhamnosus GG 10 billion 1 cap PO BID 09/02/23 09/01/23 History cell-inulin 200 mg sprinkle capsule ([facility]) gabapentin 300 mg capsule 300 mg PO TID 09/02/23 09/01/23 History atorvastatin 40 mg tablet 40 mg PO QHS #0 tabs 09/07/23 Unknown Rx furosemide 40 mg tablet 40 mg PO BIDCM diuretic 30 days 09/07/23 09/01/23 Rx #60 tabs Allergy/AdvReac Type Severity Reaction Status Date / Time diphenhydramine (From AdvReac Mild Abd Verified 10/22/23 22:16 Benadryl) cramps/diarrhea ibuprofen (From Motrin) AdvReac Nausea Verified 10/22/23 22:16 Family History Mother CAD (coronary artery disease) Hypertension History of cardiac radiofrequency ablation Sister Hypertension Other Arthritis Surgical History History of coronary artery stent placement H/O cervical spine surgery History of herniorrhaphy History of carpal tunnel release History of transurethral resection of prostate History of coronary artery stent placement (11/29/10) History of bursectomy History of removal of cyst History of carpal tunnel surgery History of fusion of cervical spine Social History household members: other details: Older son Naeem. Smoking Status: Former smoker alcohol intake: never substance use type: does not use ROS ROS ED ROS Narrative Denies nausea, vomiting or fever. Denies cough. Bilateral worsening lower extremity swelling. Generalized weakness. Has had some mild diarrhea. Review of Systems ROS Unobtainable: Denies due to encephalopathy Constitutional Constitutional ED: Denies chills or fever(s) Eyes Eyes: Denies blurry vision ENT ENT ED: Denies ear pain Cardiovascular Cardiovascular: Denies chest pain Respiratory/Chest Respiratory/Chest: Denies cough or dyspnea Gastrointestinal Gastrointestinal: Reports diarrhea; Denies abdominal pain, nausea or vomiting Genitourinary Genitourinary ED: Denies dysuria or hematuria Musculoskeletal Musculoskeletal: Denies arthralgias Integumentary Denies abscess Neurologic Neurologic: Denies headache(s) Psychiatric Psychiatric: Denies anxiety Endocrine Endocrinology: Denies cold intolerance Hematologic/Lymphatic Hematologic/Lymphatic: Reports none Allergic/Immunologic Allergic/Immunologic ED: Denies mouth swelling, tongue swelling or urticaria EXAM Physical Exam Narrative Exam Narrative: 6-year-old male sitting upright in bed. Son at bedside. Vital signs are stable afebrile. He is no distress. H EENT exam unremarkable. No facial droop. Normal speech. No trauma. Lungs clear to auscultation bilaterally. Heart rate about 74. Chest wall and ribs nontender. Abdomen soft nontender. Moving all 4 extremities. He is generally weak in his lower extremities but he can move them. Both lower extremities are very swollen 2+ pitting edema from his feet up to his least his knees. They are both red symmetrically. Generally not warm to the touch. He has some necrotic tissue around the great toe in the webspace of the first and second toe. There is no ulceration. He has a wound on his right lateral lower leg from a recent fall. There is no bony deformity. Neurologically is awake and alert. Answering questions following commands. Const Vital Signs: 10/22/23 22:16 10/22/23 22:19 10/22/23 23:47 Temperature 98.5 F 98.5 F 97.7 F L Temperature Source Oral Oral Oral Pulse Rate 74 74 89 Respiratory Rate 16 18 18 Blood Pressure 101/50 L 101/50 L 110/77 Blood Pressure Mean 67 67 88 Pulse Ox 95 95 96 Oxygen Delivery Method Room Air Room Air Room Air 10/22/23 23:50 Temperature 97.6 F L Temperature Source Pulse Rate 84 Respiratory Rate 18 Blood Pressure 110/77 Blood Pressure Mean 88 Pulse Ox 96 Oxygen Delivery Method Positive well nourished, well developed and obese; Negative for cachectic, contractures or unkempt General Appearance ED: well developed and NAD; Negative for unkempt, cachectic, contractures, cyanotic, diaphoretic or pallor Nutritional Appearance: obese; Negative for cachectic HEENT Reports moist mucous membranes Negative for trauma or tenderness Eyes PERRL and EOMs intact bilaterally General Eye ED: Negative for pale conjunctiva or scleral icterus Neck no lymphadenopathy, supple and no JVD General: Negative for tenderness Chest Wall inspection of chest normal and palpation of chest normal Resp normal respiratory effort and clear to auscultation bilaterally Effort and Inspection: Negative for retractions Auscultation: Negative for rales, rhonchi or wheezes Cardio regular rate, regular rhythm, S1 normal heart sound, S2 normal heart sound and no murmurs GI normal to inspection, nondistended, normoactive bowel sounds, non-tender, non-distended and no masses Inspection: Negative for abdominal distention Palpation: soft; Negative for tender, guarding or rebound tenderness present Back/Spine no CVA tenderness General Back: Negative for CVA tenderness Cervical Spine: Negative for cervical spine tenderness Thoracic Spine / Upper Back: Negative for thoracic spinal tenderness or paraspinal muscle tenderness Lumbar Spine / Lower Back: Negative for lumbar spinal tenderness Extremity Negative for normal to inspection Extremity Narrative: Bilateral 2+ pitting edema both lower extremities. Recent wound right lower leg. Redness bilaterally. This very well could be secondary to chronic lymphedema and/or CHF. It could be cellulitis but neither lower extremity is really warm to touch or tender. General Extremety ED: Yes edema General Extremity: edema Neuro oriented x3 and CN's II-XII intact bilaterally Sensorium / Orientation: alert; Negative for orientation impaired, lethargic or stuporous Motor Exam: general weakness Psych mental status grossly normal Appearance: Negative for unkempt Attitude: No agitated Mood & Affect: Negative for depressed, anxious or tearful Skin No no rashes or lesions noted and No no wounds General Skin Exam: Negative for jaundice or pallor Lesions: No lesion noted Rashes: No rashes noted MDM MDM MDM Narrative Medical decision making narrative: 72-year-old male with failure to thrive with generalized weakness and increased lower extremity swelling that very well could be from CHF or chronic lymphedema. Cellulitis is a possibility but again not tender to touch or warm. Screening labs to be obtained an x-ray of his right foot due to the discolored tissue in the great and second toe. Patient is can need to be admitted because he is too weak to walk at home. Repeat exam at 11:52 PM unchanged. Already spoke to the hospitalist he will admit the patient for failure to thrive and worsening lower extremity edema. I discussed that with the patient and his son. They are comfortable with the plan. History & Record Review Discussion w/independent historian: Patient and Family Additional record(s) reviewed:: Prior inpatient record, Prior outpatient record, Prior ED visit and Prior labs Lab Data Attestation: I reviewed the patient's lab results. Lab results narrative: CBC shows white count 9. H&H 13 and 42. Platelets 239. Electrolytes show potassium 3.0. Gap 7. Normal BUN 18 creatinine 1.24. Glucose 148. Liver enzymes unremarkable. Chest x-ray unremarkable. EKG chronic A-fib. Labs: Laboratory Results - last 24 hr 10/22/23 22:45 WBC 9.2 RBC 4.47 L Hgb 13.8 Hct 42.6 MCV 95.3 H MCH 30.9 MCHC 32.4 RDW Std Deviation 50.9 H RDW Coeff of Naz 14.6 Plt Count 239 MPV 9.4 Immature Gran % (Auto) 0.300 Neut % (Auto) 78.5 H Lymph % (Auto) 9.8 L [place] % (Auto) 9.3 Eos % (Auto) 1.6 Baso % (Auto) 0.5 Absolute Neuts (auto) 7.2 Absolute Lymphs (auto) 0.90 Nucleated RBC % 0 Sodium 138 Potassium 3.0 L Chloride 107 Carbon Dioxide 24.0 Anion Gap 7 BUN 18 Creatinine 1.24 Estim Creat Clear Calc 65.78 Est GFR (MDRD) Af Amer 73 Est GFR (MDRD) Non-Af 61 BUN/Creatinine Ratio 14.5 Glucose 148 H Calcium 8.9 Total Bilirubin 1.10 H AST 16 ALT 21 Alkaline Phosphatase 90 B-Natriuretic Peptide 44.4 Total Protein 7.3 Albumin 3.0 L Globulin 4.3 H Albumin/Globulin Ratio 0.7 L Radiography Chest X-Ray - ED: 1 View, Read by ED Physician, Read by Radiologist, Heart, Lungs, Mediastinum, Bony Structures, No Acute Disease and Chronic Changes Diagnostic Testing: Clinical Impression(s) from Imaging Studies Foot X-Ray 10/22/23 23:10 IMPRESSION: 1. Diffuse soft tissue swelling. No discrete evidence of subcutaneous air to suggest a necrotizing infection. 2. Apparent demineralization at the heads of the second through fifth metatarsals likely secondary to osteopenia rather than erosive changes from osteomyelitis. 3. Age-indeterminate fracture of the fifth proximal phalanx. 4. Degenerative changes. Electronically Signed: Georges VAnna Degroot DO at 23:39 EDT , Chest x-ray, portable, single view interpreted by myself shows no acute process. Normal cardiac silhouette. Normal lung lui. Right foot x-ray shows soft tissue swelling. No acute bony abnormality. No subcu air or signs of soft tissue infection. Rhythm Strip Rhythm Strip: A-fib Rate: 74 Ectopy: None EKG Initial EKG: Attestation: I personally reviewed and interpreted this EKG as follows: Interpretation: No Acute Injury Pattern, Atrial Fibrillation and LBBB Comments: Atrial fibrillation rate of 74 no acute signs of FL or ischemia. Left bundle branch block. Discharge Plan Triage Chief Complaint: Cellulitis Other Complaint: Lower Extremity Injury Numb/Ting Wound ED Provider: Mihir Jerome Dx/Rx/DC Orders Clinical Impression: Adult failure to thrive, Bilateral leg edema, History of atrial fibrillation, History of CAD (coronary artery disease), Unable to ambulate, History of stroke Prescriptions: No Action Xarelto 20 mg Tablet 20 mg PO DINNER Qty: 0 0RF losartan 100 mg Tablet 100 mg PO DAILY 30 Days Qty: 30 0RF potassium chloride [Klor-Con M20] 20 mEq Tablet,Er Particles/Crystals 20 meq PO BIDCM Qty: 0 0RF gabapentin 300 mg capsule 300 mg PO TID [facility] 10 billion cell -200 mg capsule, sprinkle 1 cap PO BID atorvastatin 40 mg Tablet 40 mg PO QHS Qty: 0 0RF furosemide 40 mg tablet 40 mg PO BIDCM 30 Days Qty: 60 0RF Primary Care Provider: Shanda Jensen NP Referrals: Shanda Jensen NP, [employer] [facility] [Primary Care Provider] - Print Language: Togolese Disposition Disposition: Acute Care Hospital [facility]
[2023-10-22 23:02] LABS: Absolute Neutrophil Count 7.2 X10^3/uL (2.0-7.7); Basophil# 0.05 X10^3/uL; Basophil% 0.5 % (0-1); Eosinophil# 0.15 X10^3/uL; Eosinophils% 1.6 % (0-5); Hematocrit 42.6 % (40-54); Hemoglobin 13.8 g/dL (13.0-16.5); Lymphocyte % 9.8 % (19-41); Mean Corp Hgb Conc 32.4 g/dL (32-36); Mean Corpuscular Hgb 30.9 pg (27.0-32.0); Mean Corpuscular Volume 95.3 fL (80-94); Mean Platelet Vol. 9.4 fl (6.2-12.0); Monocyte# 0.85 X10^3/uL; Monocyte% 9.3 % (0-10); NRBC Flagged by Analyzer 0 % (0-5); Neutrophil # 7.18 X10^3/uL (2.7-7.7); Neutrophil % 78.5 % (47-70); Platelet Count 239 K/mm3 (150-450); RBC Distribution Width CV 14.6 % (11.6-14.6); RBC Distribution Width SD 50.9 fl (35.1-43.9); Red Blood Count 4.47 M/mm3 (4.6-6.2); White Blood Count 9.2 K/mm3 (4.4-11.0)
--- NOTE | 2023-10-22 23:10 | RAD_ITS ---
EXAM: XR RIGHT FOOT COMPLETE, 3 OR MORE VIEWS CLINICAL INDICATION: right foot swelling ?? sub q air TECHNIQUE: Frontal, lateral and oblique views of the right foot. COMPARISON: No relevant prior studies available. FINDINGS: BONES/JOINTS: Apparent demineralization at the heads of the second through fifth metatarsals likely secondary to osteopenia rather than erosive changes from osteomyelitis. Age-indeterminate fracture of the fifth proximal phalanx. Diffuse osteopenia and arthritic changes throughout the foot and ankle. Calcaneal spurs. Tibiotalar joint arthrosis. First metatarsophalangeal joint and fifth metatarsal phalangeal joint arthrosis worst in the forefoot. SOFT TISSUES: Diffuse soft tissue swelling. No discrete evidence of subcutaneous air to suggest a necrotizing infection. No radiopaque foreign body. RAD/Foot min 3 Views IMPRESSION: 1. Diffuse soft tissue swelling. No discrete evidence of subcutaneous air to suggest a necrotizing infection. 2. Apparent demineralization at the heads of the second through fifth metatarsals likely secondary to osteopenia rather than erosive changes from osteomyelitis. 3. Age-indeterminate fracture of the fifth proximal phalanx. 4. Degenerative changes. Electronically Signed: Georges Degroot DO at 23:39 EDT ,
--- NOTE | 2023-10-22 23:10 | RAD_ITS ---
EXAM: XR CHEST, 1 VIEW CLINICAL INDICATION: weakness TECHNIQUE: Frontal view of the chest. COMPARISON: 10/13/2023 FINDINGS: LUNGS AND PLEURAL SPACES: No significant abnormality. No consolidation or edema. No pneumothorax. No effusion. HEART: No significant abnormality. Cardiac silhouette not enlarged. MEDIASTINUM: Central airways and mediastinal contour are unremarkable. BONES/JOINTS: Postoperative changes in the cervical spine and degenerative changes in the spine and shoulders. No acute fracture. SOFT TISSUES: No significant abnormality. VASCULATURE: Atherosclerosis. RAD/Chest 1 View (Portable) IMPRESSION: No acute findings in the chest. Electronically Signed: Georges Degroot DO at 23:52 EDT ,
[2023-10-22 23:22] LABS: BNP,B-Type NATRIURETIC PEPTIDE 44.4 pg/mL (0-100)
[2023-10-22 23:23] LABS: ALB/GLOB Ratio 0.7 RATIO (0.9-2.4); AST(SGOT) 16 U/L (15-37); Alanine Aminotransfer ALT/SGPT 21 U/L (16-61); Alkaline Phosphatase 90 U/L (45-117); Anion Gap 7 (5-15); BUN 18 mg/dL (7-18); BUN/Creat Ratio 14.5 RATIO (10-20); Calcium,Total 8.9 mg/dL (8.5-10.1); Chloride 107 mmol/L (98-107); Creatinine, Serum 1.24 mg/dL (0.70-1.30); EST Glomerular Filtration Rate 61 mL/min (>60); Est Glom Filt Rate - Afr Amer 73 mL/min (>60); Estimated Creatinine Clearance 65.78 ml/min; Globulin 4.3 g/dL (2.2-4.2); Glucose 148 mg/dL (74-106); Protein, Total 7.3 g/dL (6.4-8.2); Sodium Level 138 mmol/L (136-145)
[2023-10-22 23:47] VITALS: BP 110/77; PULSE 89; RESP 18; TEMP 36.5; O2SAT 96
[2023-10-22 23:50] VITALS: BP 110/77; PULSE 84; RESP 18; TEMP 36.4; O2SAT 96
[2023-10-23 07:55] LABS: Bacteria RARE /hpf (None Seen); Color, Urine Yellow (Yellow); Glucose, Dipstick NEGATIVE (Normal); Hyaline Cast 5-10 SEEN /lpf (0-5); Ketone-Dipstick Negative (Negative); Leukocyte Esterase-Dipstick 25 /ul (Negative); Mucous, Urine 2+ /hpf (<or=2+); Nitrite-Dipstick Negative (Negative); Occult Blood-Urine Negative /ul (Negative); Protein-Dipstick Negative (Negative); Red Blood Cells-Urine 0 SEEN /hpf (0-5); Squamous Epithelial Cells - UA 0-5 SEEN /hpf (0-5); Urine Bilirubin Dipstick Negative (Negative); Urine Clarity Clear (Clear); Urine Urobilinogen 1 mg/dl (Normal); White Blood Cells 5-10 SEEN /hpf (0-5)
[2023-10-23 08:40] VITALS: BP 139/89; PULSE 61; RESP 18; TEMP 36.4; O2SAT 98
--- NOTE | 2023-10-23 10:01 | PN.HOSP_ITS ---
Hospitalist Note Mr. Roberson is a 72-year-old white male with multiple comorbidities who presented to the emergency department at [facility] on 10/23/2023 in the morning due to weakness and bilateral lower extremity swelling. He has a history of chronic lymphedema and venous stasis and was recently at a nursing facility. He was discharged from here on 09/07/2023 to the [facility] [place] and was discharged from there about 3 weeks ago to home. He lives with his son at baseline however his son works and they have limited help at home while his son is away. The patient and the son confirmed that he is too weak to walk around the house at home but denies any other symptoms other than lower extremity edema. He did fall about a week ago and had a skin tear on his right lower extremities. Vital signs on presentation showed a temperature of 98.5, heart rate 74, blood pressure was 101/50, respiratory 16 oxygen saturations were 95% on room air. His CBC was unremarkable. His chemistry panel showed only mild hypokalemia with potassium of 3.0 which was replaced with oral potassium. He is on chronic oral potassium as well. [facility] with consultations to physical and Occupational Therapy as well as wound care and placed on his home medication regimen. Case management is involved working on discharge planning to facility as patient likely needs long-term care.
[2023-10-23 10:03] LABS: Hematocrit 42.7 % (40-54); Mean Corp Hgb Conc 32.8 g/dL (32-36); Mean Corpuscular Hgb 30.8 pg (27.0-32.0); Mean Corpuscular Volume 94.1 fL (80-94); Mean Platelet Vol. 10.7 fl (6.2-12.0); Platelet Count 226 K/mm3 (150-450); RBC Distribution Width CV 14.6 % (11.6-14.6); RBC Distribution Width SD 50.1 fl (35.1-43.9); Red Blood Count 4.54 M/mm3 (4.6-6.2); White Blood Count 8.9 K/mm3 (4.4-11.0)
[2023-10-23] MEDS: oxyCODONE 5 MG Tablet PO ×2 (10:13→18:00)
[2023-10-23 10:50] LABS: Anion Gap 4 (5-15); BUN 18 mg/dL (7-18); Calcium,Total 8.8 mg/dL (8.5-10.1); Chloride 107 mmol/L (98-107); Creatinine, Serum 1.06 mg/dL (0.70-1.30); EST Glomerular Filtration Rate 73 mL/min (>60); Est Glom Filt Rate - Afr Amer 88 mL/min (>60); Estimated Creatinine Clearance 76.96 ml/min; Glucose 87 mg/dL (74-106); Potassium 3.5 mmol/L (3.5-5.1); Sodium Level 138 mmol/L (136-145)
[2023-10-23] MEDS: Potassium Chloride Oral Tablet 20 MEQ 40 MEQ PO (11:10)
[2023-10-23] MEDS: Losartan Potassium 100 MG Tablet PO (11:11)
--- NOTE | 2023-10-23 11:20 | CASEMGMT ---
JON MI Assessment Face to Face with patient for initial transition planning/care coordination assessment. JON MI introduced self and role at [facility], pt voices understanding. Pt is A&Ox4 and is resting comfortably in bed and is calm. Care providers, pharmacy, and demographics verified. Admitting dx: FTT PCP: Shanda Jensen Specialists: [place] Preferred Pharmacy: [facility] Insurance: [facility] Prescription Benefit: Yes LNOK: Naeem Roberson (son), Maco Roberson (Son) Living Arrangements: Pt lives with his son Naeem in a two story home with a FFSU and a ramp to enter ADLs/IADLs: Son assists Transportation: Both Sons DME: Zach lift. BSC. Shower chair. Hospital Bed. FWW. Cane. W/C. HHC/SNF: Hx at the [place], [facility], and [facility] TCU[facility]. Plan: TBD. Anticipate Home with HHC vs SNF. CM and SW to follow pt progression in the hospital as well as therapy recommendations to decipher the safest DC plan moving forward. Shirin Torres RN, CM
--- NOTE | 2023-10-23 12:36 | CASEMGMT ---
Discharge Planning A list of SNF providers including quality and resource use data and consistent with the patient's preferred geographic region, medical needs, and insurance network was created in [facility] Guide.? This list was provided to the SW. Mary Salcido Discharge Planning Asst.
[2023-10-23] MEDS: Gabapentin 300 MG Capsule PO ×2 (13:43→21:01)
[2023-10-23] MEDS: Acetaminophen 500 MG Tablet 1000 MG PO ×2 (13:44→21:01)
--- NOTE | 2023-10-23 13:55 | CASEMGMT ---
Addendum entered by Mary Salcido 10/24/23 08:54: Patient declined to sign HOLLIS. Mary Salcido DC Planning Asst. Original Note: Care Mgmt. This advertising writer attempted to explain HOLLIS form to both patient and then his son (Naeem). Both were very upset stating they were not made aware of observation status and felt that I was telling them he was going to be kicked out. It was explained several times that patient can remain here under observation as long as medically necessary. Patients son upset feeling that it is hospitals fault for patients several re-admissions. Additionally, I suggested that a call be placed to [facility] if they want an immediate answer regarding copays. The above topics were repeated several times as both patient and his son would ask questions but not allow me to completely answer. While it seemed unclear if patients son was understanding of the form, he said that he would call patient and have him sign it. RN CM updated. Mary Salcido DC Planning Asst.
[2023-10-23 14:08] VITALS: BP 146/80; PULSE 74; RESP 18; TEMP 36.3; O2SAT 98
[2023-10-23 17:00] VITALS: BP 140/76; PULSE 67; RESP 18; TEMP 36.8; O2SAT 97
--- NOTE | 2023-10-23 17:01 | CASEMGMT ---
Social Work Pt's [facility] here, informed RN that they will want placement for pt. SW spoke w/pt and son Naeem in room in regard to discharge plan, provided [facility] list to son. [facility] and pt in agreement for referral to [facility]. They spoke w/Dr. Romano in the ED who had told them that he is the director medical science there and thinks there are beds available. SW explained we will send referral over in the morning. SW will continue to follow. CLINT Kraft
[2023-10-23] MEDS: Rivaroxaban 20 MG Tablet PO (17:03)
[2023-10-23] MEDS: Furosemide 40 MG Tablet PO (17:03)
[2023-10-23] MEDS: Potassium Chloride Oral Tablet 20 MEQ PO (17:03)
[2023-10-23 17:55] VITALS: BP 106/60; PULSE 83
[2023-10-23] MEDS: Atorvastatin Calcium 40 MG Tablet PO (20:58)
[2023-10-23] MEDS: Menthol/Lanolin/Calamine/Znox 113 GM Tube 1 APPLIC TOPICAL (20:58)
[2023-10-23] MEDS: Nystatin Powder 15gm Bottle 1 APPLIC TOPICAL (20:58)
[2023-10-23] MEDS: Lactobacillis Acidophilus 1 CAP PO (20:58)
[2023-10-23 21:00] VITALS: BP 103/62; PULSE 79; RESP 18; TEMP 36.9; O2SAT 96
[2023-10-23] MEDS: MELATONIN 3 MG TABLET PO (21:01)
[2023-10-24] VITALS (7 sets, daily range): BP systolic 108–138; BP diastolic 72–91; PULSE 60–80; RESP 17–18; TEMP 36.4–36.8; O2SAT 94–98; BMI 39.7
[2023-10-24] MEDS: Gabapentin 300 MG Capsule PO ×3 (05:51→20:27)
[2023-10-24] MEDS: Acetaminophen 500 MG Tablet 1000 MG PO ×3 (05:51→20:25)
--- NOTE | 2023-10-24 07:28 | PN.HOSP_ITS ---
Subjective Subjective LE edema. Fell in shower, scraping right leg. Objective Data Objective Data Vital Signs: Vital Signs Temp Pulse Resp BP Pulse Ox O2 Del Method 36.6 C 67 17 108/72 96 Room Air 10/24/23 03:12 10/24/23 03:12 10/24/23 03:12 10/24/23 03:12 10/24/23 03:12 10/24/23 03:12 Oxygen Delivery Method Room Air Weight: 115 kg Body Mass Index (BMI) 39.7 Intake & Output: Intake and Output for Last 24 Hours 10/22/23 10/23/23 10/24/23 23:59 23:59 23:59 Intake Total 300 / 300 Output Total 800 / 1200 600 / 600 Balance -800 / -1140 -300 / -300 Lab / Micro Data 10/24/23 06:45 10/24/23 06:45 Labs: Laboratory Results - last 24 hr 10/23/23 02:45: Urine Color Yellow, Urine Clarity Clear, Urine pH 5.0, Ur Specific [place] 1.020, Urine Protein Negative, Urine Glucose (UA) NEGATIVE, Urine Ketones Negative, Urine Occult Blood Negative, Urine Nitrite Negative, Urine Bilirubin Negative, Urine Urobilinogen 1 H, Ur Leukocyte Esterase 25 H, Urine RBC 0 SEEN, Urine WBC 5-10 SEEN, Ur Squamous Epith Cells 0-5 SEEN, Urine Bacteria RARE, Hyaline Casts 5-10 SEEN, Urine Mucus 2+ 10/23/23 06:00: WBC 8.9, RBC 4.54 L, Hgb 14.0, Hct 42.7, MCV 94.1 H, MCH 30.8, MCHC 32.8, RDW Std Deviation 50.1 H, RDW Coeff of Naz 14.6, Plt Count 226, MPV 10.7, Sodium 138, Potassium 3.5, Chloride 107, Carbon Dioxide 27.0, Anion Gap 4 L, BUN 18, Creatinine 1.06, Estim Creat Clear Calc 76.96, Est GFR (MDRD) Af Amer 88, Est GFR (MDRD) Non-Af 73, BUN/Creatinine Ratio 17.0, Glucose 87, Calcium 8.8 Rhythm Strip Rhythm Strip: A-fib Rate: 74 Ectopy: None Physical Exam Const alert and no apparent distress HEENT head/scalp atraumatic and moist oral mucous membranes Resp normal respiratory effort and no retractions Extremity Extremity Narrative: edema in LE edema. scrape on right leg without erythema. Neuro Sensorium / Orientation: awake and alert Assessment & Plan Assessment/Plan (1) Adult failure to thrive: PLAN: Plan Failure to Thrive * PT OT CM * just left SNF. * awaiting on insurance authorization. Chronic medical conditions: * Obesity Class II: BMI 39.7 on admit. Complicates hospital course, care and prognosis. * Paroxysmal A-fib, history of DVT: Stable. Continue home Xarelto, not on any rate controlling agents. * History of CVA with right-sided hemiplegia: Continue home Xarelto and statin. * CAD s/p stenting, hypertension, hyperlipidemia: Continue home Xarelto, statin, amlodipine, Lasix and losartan. * BPH s/p TURP * Lower extremity neuropathy: Continue home gabapentin. * HFpEF: compensated. continue furosemide, losartan VTE prophylaxis: not indicated as already on rivaroxaban. Charges/Coding Visit Charges Inpatient E&M: 37295 Subs Hosp L2
[2023-10-24] MEDS: Furosemide 40 MG Tablet PO ×2 (07:42→16:39)
[2023-10-24] MEDS: Potassium Chloride Oral Tablet 20 MEQ PO ×2 (07:42→16:39)
[2023-10-24 07:50] LABS: Absolute Lymphocyte Count 1.41 X10^3/uL (0.83-4.51); Absolute Neutrophil Count 5.6 X10^3/uL (2.0-7.7); Basophil# 0.03 X10^3/uL; Basophil% 0.4 % (0-1); Eosinophil# 0.27 X10^3/uL; Eosinophils% 3.3 % (0-5); Hemoglobin 12.5 g/dL (13.0-16.5); Lymphocyte # 1.41 X10^3/ul (0.83-4.51); Lymphocyte % 17.4 % (19-41); Mean Corp Hgb Conc 32.9 g/dL (32-36); Mean Corpuscular Hgb 30.6 pg (27.0-32.0); Mean Corpuscular Volume 92.9 fL (80-94); Mean Platelet Vol. 9.7 fl (6.2-12.0); Monocyte# 0.75 X10^3/uL; Monocyte% 9.2 % (0-10); NRBC Flagged by Analyzer 0 % (0-5); Neutrophil # 5.62 X10^3/uL (2.7-7.7); Neutrophil % 69.3 % (47-70); Platelet Count 234 K/mm3 (150-450); RBC Distribution Width CV 14.6 % (11.6-14.6); RBC Distribution Width SD 49.4 fl (35.1-43.9); Red Blood Count 4.09 M/mm3 (4.6-6.2); White Blood Count 8.1 K/mm3 (4.4-11.0)
[2023-10-24 08:18] LABS: ALB/GLOB Ratio 0.8 RATIO (0.9-2.4); AST(SGOT) 13 U/L (15-37); Alanine Aminotransfer ALT/SGPT 17 U/L (16-61); Albumin, Serum 2.8 g/dL (3.2-5.0); Alkaline Phosphatase 79 U/L (45-117); Anion Gap 3 (5-15); BUN 16 mg/dL (7-18); BUN/Creat Ratio 16.4 RATIO (10-20); Calcium,Total 8.8 mg/dL (8.5-10.1); Chloride 109 mmol/L (98-107); Creatinine, Serum 0.97 mg/dL (0.70-1.30); EST Glomerular Filtration Rate 80 mL/min (>60); Est Glom Filt Rate - Afr Amer 97 mL/min (>60); Estimated Creatinine Clearance 82.18 ml/min; Globulin 3.5 g/dL (2.2-4.2); Glucose 85 mg/dL (74-106); Magnesium 1.9 mg/dL (1.6-2.6); Potassium 3.4 mmol/L (3.5-5.1); Protein, Total 6.3 g/dL (6.4-8.2); Sodium Level 139 mmol/L (136-145)
--- NOTE | 2023-10-24 09:25 | CASEMGMT ---
Addendum entered by Mary Salcido 10/24/23 10:17: Patient updated that [facility] declined and that TCU also has no beds. He asked for referral to be made to [facility] at [place]. Mary Salcido DC Planning Asst. Addendum entered by Mary Salcido 10/24/23 10:05: [facility] declined d/t no bed availability. Mary Salcido DC Planning Asst. Original Note: Discharge Planning Referral sent to [facility] via [facility]. Mary Salcido DC Planning Asst.
[2023-10-24] MEDS: Lactobacillis Acidophilus 1 CAP PO ×2 (09:32→20:24)
[2023-10-24] MEDS: Nystatin Powder 15gm Bottle 1 APPLIC TOPICAL ×2 (09:32→20:24)
[2023-10-24] MEDS: Menthol/Lanolin/Calamine/Znox 113 GM Tube 1 APPLIC TOPICAL ×2 (09:32→20:23)
[2023-10-24] MEDS: Losartan Potassium 100 MG Tablet PO (09:32)
--- NOTE | 2023-10-24 10:15 | CASEMGMT ---
Social Work Per DC lab assistant, pt is requesting referral to TCU. Referral made to TCU and they are unable to accept at this time. DC lab assistant updated and to notify pt and obtain other SNF choices. LEIA Chen
--- NOTE | 2023-10-24 10:20 | CASEMGMT ---
Addendum entered by Mary Salcido 10/25/23 12:07: Due to some confusion with mcr days used, precert was not submitted on 10/23 but will be submitted today. Mary Salcido DC Planning Asst. Addendum entered by Mary Salcido 10/24/23 11:28: [facility] has accepted and will begin precert. Patient updated. Mary Salcido DC Planning Asst. Original Note: Discharge Planning Referral sent to [facility] via [facility] Mary Salcido DC Planning Asst.
--- NOTE | 2023-10-24 11:39 | WOUNDNOTE ---
wound photo: left lower leg
--- NOTE | 2023-10-24 11:40 | WOUNDNOTE ---
wound photo: right lower leg
--- NOTE | 2023-10-24 11:40 | WOUNDNOTE ---
wound photo: right foot
--- NOTE | 2023-10-24 15:00 | CASEMGMT ---
Late entry- SW notified of pt request for palliative care referral.
--- NOTE | 2023-10-24 15:18 | CASEMGMT ---
Social Work SW met with pt to discuss advance directives.? Pt confirms he has completed a living will and health care POA naming his son Naeem Roberson.? Pt notified that documents are not on file at [facility] and SW requested they be brought in for scanning into the EMR.? LEIA Chen
--- NOTE | 2023-10-24 15:20 | CASEMGMT ---
Social Work SW met with pt and introduced self and role of SW. SW confirmed discharge plan with pt and that precert is pending at [facility]. Pt is agreeable. Pt willing to openly share feelings regarding chronic illness with SW and repeated cycle of hospitalization to SNF to home back to hosptial ect. Pt expressing that he is tired and if solutions cannot be found to stop cycle, he would rather be . Pt is quick to state that he has no plan for suicide and would never hurt himself or ask others to hurt him nor would he harm others. SW spoke with pt regarding supports and coping and pt is able to identify his family as supportive and that his 9 year old grandson brings him valdez in spite of medical circumstances. SW spoke with pt regarding feelings of depression and pt denies any treatment options for this stating he feels he has the right to have all the different feelings and he does not need treatment at this time. SW spoke with pt regarding Palliative Medicine. SW explained program and purpose of Palliative Medicine. Pt is agreeable to referral. RNCM updated. SW will remain available for further needs if they arise. Plan: [facility], pending precert LEIA Gonzalez
[2023-10-24] MEDS: Rivaroxaban 20 MG Tablet PO (16:39)
[2023-10-24] MEDS: Atorvastatin Calcium 40 MG Tablet PO (20:24)
[2023-10-25 00:28] VITALS: PULSE 64; RESP 18; O2SAT 93
[2023-10-25 03:18] VITALS: BP 140/73; PULSE 63; RESP 18; TEMP 36.6; O2SAT 95
[2023-10-25] MEDS: Acetaminophen 500 MG Tablet 1000 MG PO ×2 (05:55→13:47)
[2023-10-25] MEDS: Gabapentin 300 MG Capsule PO ×2 (05:55→13:47)
[2023-10-25 06:00] VITALS: BMI 39.8
--- NOTE | 2023-10-25 07:08 | PN.HOSP_ITS ---
Reason for Visit Reason for Visit: Diagnoses Adult failure to thrive (10/23/23) Subjective Subjective Had pain in his legs last night. Did not sleep well. Patient states that the pain is unchanged from at home and this waxes and wanes but did take some pain medication which seemed to help last night. Objective Data Objective Data Vital Signs: Vital Signs Temp Pulse Resp BP Pulse Ox O2 Del Method 36.6 C 63 18 140/73 H 95 Room Air 10/25/23 03:18 10/25/23 03:18 10/25/23 03:18 10/25/23 03:18 10/25/23 03:18 10/25/23 03:18 Oxygen Delivery Method Room Air Weight: 115.2 kg Body Mass Index (BMI) 39.8 Intake & Output: Intake and Output for Last 24 Hours 10/23/23 10/24/23 10/25/23 23:59 23:59 23:59 Intake Total 800 / 800 400 / 400 Output Total 800 / 1200 2300 / 2300 650 / 650 Balance -800 / -1140 -1500 / -1500 -250 / -250 Lab / Micro Data 10/24/23 06:45 10/24/23 06:45 Labs: Laboratory Results - last 24 hr 10/24/23 06:45: WBC 8.1, RBC 4.09 L, Hgb 12.5 L, Hct 38.0 L, MCV 92.9, MCH 30.6, MCHC 32.9, RDW Std Deviation 49.4 H, RDW Coeff of Naz 14.6, Plt Count 234, MPV 9.7, Immature Gran % (Auto) 0.400, Neut % (Auto) 69.3, Lymph % (Auto) 17.4 L, [place] % (Auto) 9.2, Eos % (Auto) 3.3, Baso % (Auto) 0.4, Absolute Neuts (auto) 5.6, Absolute Lymphs (auto) 1.41, Nucleated RBC % 0, Sodium 139, Potassium 3.4 L , Chloride 109 H, Carbon Dioxide 27.0, Anion Gap 3 L, BUN 16, Creatinine 0.97, Estim Creat Clear Calc 82.18, Est GFR (MDRD) Af Amer 97, Est GFR (MDRD) Non-Af 80, BUN/Creatinine Ratio 16.4, Glucose 85, Calcium 8.8, Phosphorus 3.0, Magnesium 1.9, Total Bilirubin 1.10 H, AST 13 L, ALT 17, Alkaline Phosphatase 79, Total Protein 6.3 L, Albumin 2.8 L, Globulin 3.5, Albumin/Globulin Ratio 0.8 L Rhythm Strip Rhythm Strip: A-fib Rate: 74 Ectopy: None Physical Exam Const alert and no apparent distress HEENT head/scalp atraumatic and moist oral mucous membranes Resp normal respiratory effort and no retractions Extremity Extremity Narrative: Bilateral lower extremity edema with lymphedematous changes. Assessment & Plan Assessment/Plan (1) Adult failure to thrive: PLAN: Plan Failure to Thrive * PT OT CM * just left SNF. * awaiting on insurance authorization to return to SNF. Chronic medical conditions: * Obesity Class II: BMI 39.7 on admit. Complicates hospital course, care and prognosis. * Paroxysmal A-fib, history of DVT: Stable. Continue home Xarelto, not on any rate controlling agents. * History of CVA with right-sided hemiplegia: Continue home Xarelto and statin. * CAD s/p stenting, hypertension, hyperlipidemia: Continue home Xarelto, statin, amlodipine, Lasix and losartan. * BPH s/p TURP * Lower extremity neuropathy: Continue home gabapentin. * chronic HFpEF: compensated. continue furosemide, losartan VTE prophylaxis: not indicated as already on rivaroxaban. Charges/Coding Visit Charges Inpatient E&M: 44668 [facility] Hosp L1
[2023-10-25 07:38] VITALS: O2SAT 94
[2023-10-25 07:47] VITALS: BP 116/74; PULSE 70; RESP 18; TEMP 36.4; O2SAT 98
[2023-10-25] MEDS: Lactobacillis Acidophilus 1 CAP PO (07:55)
[2023-10-25] MEDS: Potassium Chloride Oral Tablet 20 MEQ PO ×2 (07:55→17:49)
[2023-10-25] MEDS: Losartan Potassium 100 MG Tablet PO (07:55)
[2023-10-25] MEDS: Menthol/Lanolin/Calamine/Znox 113 GM Tube 1 APPLIC TOPICAL (07:56)
[2023-10-25] MEDS: Nystatin Powder 15gm Bottle 1 APPLIC TOPICAL (07:56)
[2023-10-25] MEDS: Furosemide 40 MG Tablet PO ×2 (07:56→17:50)
--- NOTE | 2023-10-25 10:53 | CASEMGMT ---
Pt screened with [facility] Palliative Care Screening Tool, pt met criteria. Referral emailed to Palliative Care.
--- NOTE | 2023-10-25 13:59 | CASEMGMT ---
Discharge Planning [facility] has obtained auth. SW updated. Mary Salcido DC Planning Asst.
--- NOTE | 2023-10-25 14:14 | TREXTCAR_ITS ---
Diet Diet Order/Speech Therapy: 10/23/23 09:33 Diet: Cardiac - Heart Healthy Food consistency:: Regular Liquid Consistency:: Regular/Thin Dietary Modifications:: Sodium Restricted Is pt able to select menu?: Yes Routine Orders/Code Status Code Status: Full Code Wound(s) rle: Wound Type: cluster of open abrasions s/p fall at home Dressing Change: Adaptic LLE: Wound Type: cluster of small scabs Dressing Change: dry dressing rt toe: Wound Type: small blood blister Therapies Weight Bearing: Full weight bearing Physical Therapy: Eval and Treat Occupational Therapy: Eval and Treat Problem/Diagnosis (1) Adult failure to thrive: Status: Acute Code(s): R62.7 - Adult failure to thrive Plan Failure to Thrive * PT OT CM * just left SNF. * awaiting on insurance authorization to return to SNF. Chronic medical conditions: * Obesity Class II: BMI 39.7 on admit. Complicates hospital course, care and prognosis. * Paroxysmal A-fib, history of DVT: Stable. Continue home Xarelto, not on any rate controlling agents. * History of CVA with right-sided hemiplegia: Continue home Xarelto and statin. * CAD s/p stenting, hypertension, hyperlipidemia: Continue home Xarelto, statin, amlodipine, Lasix and losartan. * BPH s/p TURP * Lower extremity neuropathy: Continue home gabapentin. * chronic HFpEF: compensated. continue furosemide, losartan VTE prophylaxis: not indicated as already on rivaroxaban. Allergies/Procedures Done in Hospital Allergies diphenhydramine (From Benadryl) Adverse Reaction (Mild, Verified 10/22/23 22:16) Abd cramps/diarrhea ibuprofen (From Motrin) Adverse Reaction (Verified 10/22/23 22:16) Nausea Procedures: None Type of Care/Length of Stay Estimated LOS: Convalescent Care Less Than 30 days Type of Care Needed: Skilled Rehab Potential: Fair Prognosis: Fair Additional Orders/Day of Discharge Additional Orders: bilateral lymphedema wraps. Day of Discharge: 10/25/23 Dietary and Speech Recommendations Dietitian Recommendations/Changes: Continue cardiac/sodium-restricted diet. Fluid restriction as needed per physician. ONS only if PO fails at meals, not warranted at this time. Discharge Plan Admission Admit Date/Time: 10/23/23 09:52 Primary Reason for Your Visit: debility Attending Provider: Kervin Ortiz Primary Care Provider: Shanda Jensen NP Consulting Providers: Reji Romano; Maria Esther Smith Discharge Orders/Prescriptions Prescriptions: New melatonin 3 mg Tablet 3 mg PO QHS PRN PRN (Reason: Insomnia) Qty: 0 0RF acetaminophen 500 mg Tablet 1,000 mg PO Q8 Qty: 0 0RF nystatin [Nyamyc] 100,000 unit/gram Powder 1 applic topical BID Qty: 0 0RF Protocol: *Topical Application Instructions APPLICATION INSTRUCTIONS: groin/abdominal folds oxycodone 5 mg Tablet 5 mg PO Q6H PRN PRN (Reason: Pain Score 6-10) 3 Days Qty: 12 0RF menthol-zinc oxide [Calmoseptine] 0.44-20.6 % Ointment 1 applic topical BID Qty: 0 0RF Protocol: *Topical Application Instructions APPLICATION INSTRUCTIONS: buttocks Continued Xarelto 20 mg Tablet 20 mg PO DINNER Qty: 0 0RF losartan 100 mg Tablet 100 mg PO DAILY 30 Days Qty: 30 0RF potassium chloride [Klor-Con M20] 20 mEq Tablet,Er Particles/Crystals 20 meq PO BIDCM Qty: 0 0RF gabapentin 300 mg capsule [address] [facility] 10 billion cell -200 mg capsule, sprinkle 1 cap PO BID atorvastatin 40 mg Tablet 40 mg PO QHS Qty: 0 0RF furosemide 40 mg tablet 40 mg PO BIDCM 30 Days Qty: 60 0RF Referrals / Follow Up: [facility] [Provider Group] - Within 1 Month Shanda Jensen NP, FUR OPERATOR-C [Primary Care Provider] - Within 2 Weeks Disposition Disposition (needs filled in before D/C Order can be placed): Detention Facility
--- NOTE | 2023-10-25 14:20 | DS.PCM_ITS ---
Providers Date of Admission: 10/23/23 Primary Care Physician: VU CelisC Consultations 10/23/23 09:20 Consult: Onc/Wound/senior accounting manager Routine Comment: Reason for Consult:: eval/ rx lower legs Reason For Visit: FAILURE TO THRIVE Diagnosis Discharge Diagnosis (1) Adult failure to thrive: Status: Acute Code(s): R62.7 - Adult failure to thrive Plan Failure to Thrive * PT OT CM * just left SNF. * awaiting on insurance authorization to return to SNF. Chronic medical conditions: * Obesity Class II: BMI 39.7 on admit. Complicates hospital course, care and prognosis. * Paroxysmal A-fib, history of DVT: Stable. Continue home Xarelto, not on any rate controlling agents. * History of CVA with right-sided hemiplegia: Continue home Xarelto and statin. * CAD s/p stenting, hypertension, hyperlipidemia: Continue home Xarelto, statin, amlodipine, Lasix and losartan. * BPH s/p TURP * Lower extremity neuropathy: Continue home gabapentin. * chronic HFpEF: compensated. continue furosemide, losartan VTE prophylaxis: not indicated as already on rivaroxaban. Medications at Discharge Home Medications rivaroxaban 20 mg tablet (Xarelto) 20 mg PO DINNER BLOOD THINNER #0 tabs 12/28/21 losartan 100 mg tablet 100 mg PO DAILY blood pressure 30 days #30 tabs 03/15/23 potassium chloride 20 mEq tablet,extended release(part/cryst) (Klor-Con M) 20 meq PO BIDCM potassium #0 tabs 03/29/23 Lactobacil rhamnosus GG 10 billion cell-inulin 200 mg sprinkle capsule ([facility]) 1 cap PO BID 09/02/23 gabapentin 300 mg capsule 300 mg PO TID 09/02/23 atorvastatin 40 mg tablet 40 mg PO QHS #0 tabs 09/07/23 furosemide 40 mg tablet 40 mg PO BIDCM diuretic 30 days #60 tabs 09/07/23 acetaminophen 500 mg tablet 1,000 mg (2 x 500 mg) PO Q8 #0 tabs 10/25/23 melatonin 3 mg tablet 3 mg PO QHS PRN PRN Insomnia #0 tabs 10/25/23 menthol 0.44 %-zinc oxide 20.6 % topical ointment (Calmoseptine) 1 applic topical BID #0 grams 10/25/23 nystatin 100,000 unit/gram topical powder (Nyamyc) 1 applic topical BID #0 grams 10/25/23 oxycodone 5 mg tablet 5 mg PO Q6H PRN PRN Pain Score 6-10 3 days #12 tabs 10/25/23 Hospital Course Operations None Procedures None Summary of Care Provided Minutes Spent on Discharge: 35 Hospital Course: Patient presents with debility from home. Workup here was unremarkable. Patient does have chronic lower extremity edema he did have pain in his legs but otherwise was feeling fine but patient had fallen at home and which led to him coming into the hospital as his son was unable to adequately care for him. He finally got insurance authorization and patient will be discharged to the [facility] in [place]. Weight / BMI Weight Weight: 115.2 kg Body Mass Index (BMI) 39.8 ABG / Lab / Microbiology Data 10/24/23 06:45 10/24/23 06:45 D/C Instructions Discharge Diet: Low fat / Low cholesterol, 6 Cup Fluid Restriction, 8 Cup Fluid Restriction and 2000 mg Sodium Diet Meaningful Use Info Meaningful Use Meaningful Use Diagnoses (Choose all that apply): None applicable Ischemic Stroke Statin Dosing Therapy Reference: STATIN DOSE THERAPY REFERENCE: * Patients > 75 years receive moderate or high dose statin therapy. * Patients 75 years or YOUNGER should receive HIGH intensity statin dose unless contraindicated. You will be required to document reason for non-treatment if statin daily dose does not meet guidelines. HIGH DOSE STATIN THERAPY DAILY Atorvastatin > than or = to 40 mg Rosuvastatin > than or = to 20 mg Amlodipine + Atorvastatin > than or = to 2.5/40 mg Ezetimibe + Simvastatin 10/80 mg Simvastatin 80mg Discharge Plan Admission Admit Date/Time: 10/23/23 09:52 Primary Reason for Your Visit: debility Attending Provider: Kervin Ortiz Primary Care Provider: Shanda Jensen NP Consulting Providers: Reji Romano; Maria Esther Smith Discharge Orders/Prescriptions Prescriptions: New melatonin 3 mg Tablet 3 mg PO QHS PRN PRN (Reason: Insomnia) Qty: 0 0RF acetaminophen 500 mg Tablet 1,000 mg PO Q8 Qty: 0 0RF nystatin [Nyamyc] 100,000 unit/gram Powder 1 applic topical BID Qty: 0 0RF Protocol: *Topical Application Instructions APPLICATION INSTRUCTIONS: groin/abdominal folds oxycodone 5 mg Tablet 5 mg PO Q6H PRN PRN (Reason: Pain Score 6-10) 3 Days Qty: 12 0RF menthol-zinc oxide [Calmoseptine] 0.44-20.6 % Ointment 1 applic topical BID Qty: 0 0RF Protocol: *Topical Application Instructions APPLICATION INSTRUCTIONS: buttocks Continued Xarelto 20 mg Tablet 20 mg PO DINNER Qty: 0 0RF losartan 100 mg Tablet 100 mg PO DAILY 30 Days Qty: 30 0RF potassium chloride [Klor-Con M20] 20 mEq Tablet,Er Particles/Crystals 20 meq PO BIDCM Qty: 0 0RF gabapentin 300 mg capsule 300 mg PO TID [facility] 10 billion cell -200 mg capsule, sprinkle 1 cap PO BID atorvastatin 40 mg Tablet 40 mg PO QHS Qty: 0 0RF furosemide 40 mg tablet 40 mg PO BIDCM 30 Days Qty: 60 0RF Referrals / Follow Up: [facility] [Provider Group] - Within 1 Month Shanda Jensen STRUCTURAL DESIGN ENGINEER, STRUCTURAL DESIGN ENGINEER-C [Primary Care Provider] - Within 2 Weeks Disposition Disposition (needs filled in before D/C Order can be placed): [facility] Charges/Coding Visit Charges Inpatient E&M: 58082 Disch Hosp >30min
--- NOTE | 2023-10-25 14:32 | PHA.DC.MR.R ---
Pharmacy ID Med Reconciliation Pharmacy Service has performed discharge medication reconciliation for this patient upon transfer to [facility]. The patient's discharge medication list was reviewed for discrepancies and discrepancies were resolved. Medications at Discharge Home Medications rivaroxaban 20 mg tablet (Xarelto) 20 mg PO DINNER BLOOD THINNER #0 tabs 12/28/21 losartan 100 mg tablet 100 mg PO DAILY blood pressure 30 days #30 tabs 03/15/23 potassium chloride 20 mEq tablet,extended release(part/cryst) (Klor-Con M) 20 meq PO BIDCM potassium #0 tabs 03/29/23 Lactobacil rhamnosus GG 10 billion cell-inulin 200 mg sprinkle capsule ([facility]) 1 cap PO BID 09/02/23 gabapentin 300 mg capsule 300 mg PO TID 09/02/23 atorvastatin 40 mg tablet 40 mg PO QHS #0 tabs 09/07/23 furosemide 40 mg tablet 40 mg PO BIDCM diuretic 30 days #60 tabs 09/07/23 acetaminophen 500 mg tablet 1,000 mg (2 x 500 mg) PO Q8 #0 tabs 10/25/23 melatonin 3 mg tablet 3 mg PO QHS PRN PRN Insomnia #0 tabs 10/25/23 menthol 0.44 %-zinc oxide 20.6 % topical ointment (Calmoseptine) 1 applic topical BID #0 grams 10/25/23 nystatin 100,000 unit/gram topical powder (Nyamyc) 1 applic topical BID #0 grams 10/25/23 oxycodone 5 mg tablet 5 mg PO Q6H PRN PRN Pain Score 6-10 3 days #12 tabs 10/25/23
--- NOTE | 2023-10-25 14:45 | CASEMGMT ---
Social Work Precert has been obtained for pt to go to [facility]. Physician updated and pt is ready for dc today. PASRR completed in [facility]. DC information services assistant notified and will complete discharge. Disposition: [facility], skilled level of care LEIA Chen
[2023-10-25 14:55] VITALS: BP 122/80; PULSE 73; RESP 18; TEMP 36.8; O2SAT 97
--- NOTE | 2023-10-25 15:01 | CASEMGMT ---
Discharge Planning Discharge orders, signed med list, and transport time sent to [facility] [place]. Physicians will transport patient by wheelchair at 7p. Nursing, SW, and patient updated. VM was left for patient son (Naeem). Updated Avenue that palliative referral has been made and requested approx timeframe that patient may be transferred to [facility] [place]. Awaiting response. Mary Salcido DC Planning Asst.
[2023-10-25] MEDS: Rivaroxaban 20 MG Tablet PO (17:50)
[2023-10-25] MEDS: oxyCODONE 5 MG Tablet PO (17:53)
[2023-10-25 18:09] VITALS: BP 145/94; PULSE 72; RESP 18; TEMP 36.6; O2SAT 97
== END 2023-10-25 18:10 | disposition skilled nursing facility (03) ==
LOC: ED 23:54 → MS3 10-23 08:03
PROVIDERS: Internal Medicine; Admitting Provider Family Medicine; Emergency Provider Emergency Medicine; PCP Nurse Practitioner Family
DX: R62.7 Adult failure to thrive (principal); I69.351 Hemiplegia and hemiparesis following cerebral infarction affecting right dominant side; I11.0 Hypertensive heart disease with heart failure; I50.32 Chronic diastolic (congestive) heart failure; I48.0 Paroxysmal atrial fibrillation; E78.5 Hyperlipidemia, unspecified; I89.0 Lymphedema, not elsewhere classified; I25.10 Atherosclerotic heart disease of native coronary artery without angina pectoris; Z87.891 Personal history of nicotine dependence; Z95.5 Presence of coronary angioplasty implant and graft; E66.9 Obesity, unspecified; M79.604 Pain in right leg; Z86.718 Personal history of other venous thrombosis and embolism; Z68.39 Body mass index [BMI] 39.0-39.9, adult; M79.605 Pain in left leg; R53.81 Other malaise; E87.6 Hypokalemia; G62.9 Polyneuropathy, unspecified; M79.89 Other specified soft tissue disorders; N40.0 Benign prostatic hyperplasia without lower urinary tract symptoms; Z79.899 Other long term (current) drug therapy; Z79.01 Long term (current) use of anticoagulants; R53.1 Weakness
CPT/HCPCS: 71045; 73630; 80048; 80053; 81001; 83735; 83880; 84100; 85025; 85027; 93005; 94668; 97162; 97166; 97530; 97535; 97802; 99221; 99252; 99285; G0378; G0463

== ENCOUNTER 2023-12-25 17:49 | Inpatient (IN) | payer MEDICARE, SELFPAY ==
[2023-12-25] VITALS (8 sets, daily range): BP systolic 108–173; BP diastolic 70–111; PULSE 115–140; RESP 20–25; TEMP 38.8–39.6; O2SAT 91–98; BMI 42.7
[2023-12-25 18:09] LABS: Bacteria 0 SEEN /hpf (None Seen); Mucous, Urine 0 SEEN /hpf (<or=2+); Red Blood Cells-Urine 0 SEEN /hpf (0-5); Squamous Epithelial Cells - UA 0 SEEN /hpf (0-5)
[2023-12-25 18:25] LABS: Color, Urine Yellow (Yellow); Glucose, Dipstick Normal (Normal); Ketone-Dipstick Negative (Negative); Leukocyte Esterase-Dipstick 100 /ul (Negative); Nitrite-Dipstick Negative (Negative); Occult Blood-Urine 10 /ul (Negative); Protein-Dipstick Negative (Negative); Urine Bilirubin Dipstick Negative (Negative); Urine Clarity Clear (Clear); Urine Urobilinogen Normal (Normal)
[2023-12-25 18:37] LABS: White Blood Cells 0-5 SEEN /hpf (0-5)
--- NOTE | 2023-12-25 19:37 | EKG12_ITS ---
Test Reason : FEVER Blood Pressure : / mmHG Vent. Rate : 123 BPM Atrial Rate : 000 BPM P-R Int : 000 ms QRS Dur : 112 ms QT Int : 334 ms P-R-T Axes : 000 -51 116 degrees QTc Int : 478 ms Atrial fibrillation with rapid ventricular response with premature ventricular or aberrantly conducte d complexes Left axis deviation Anteroseptal infarct , age undetermined Marked ST abnormality Abnormal ECG Confirmed by Hiram Russell ([id number]), editor book GINGER YAN ([id number]) on 12/26/2023 10:10:07 AM Referred By: FADY Confirmed By:Hiram Russell
--- NOTE | 2023-12-25 19:38 | EDS_ITS ---
HPI History of Present Illness Chief Complaint: Fever Informant: family Onset/Context/Timing Onset: Today Context: Sudden Onset Timing: Continuous Quality: Sharp, burning Location: Generalized Worsened by: Nothing Relieved by: Tylenol Narrative Narrative: Patient presents with a fever that began today. Patient states that he has burning and sharp pain all over. Patient states his fever was up to 102 at home. Patient admits to some blurred vision. Patient has a history of a chronic wound on his right lower leg. Patient admits to some nausea and vomiting. Patient states he has been taking Tylenol which has been helping. Patient states he has had a stroke which has caused right-sided weakness in the past. Family states that the right sided weakness caused him to fall which caused the chronic wound on his right lower leg. Patient denies any recent injury. 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 Right rotator cuff tear Right hemiplegia Congestive heart failure (CHF) Lipodermatosclerosis of both lower extremities Venous insufficiency (chronic) (peripheral) Ambulatory dysfunction Generalized weakness Tinea cruris Chronic venous stasis dermatitis Lymphedema Chronic anticoagulation Bilateral cellulitis of lower leg Candidiasis of skin Adult failure to thrive Hemiplegia affecting right dominant side Anticoagulant long-term use Pneumonia Cellulitis Atrial fibrillation CVA (cerebral vascular accident) Rotator cuff tear arthropathy of right shoulder CPAP (continuous positive airway pressure) dependence Sleep apnea FTT (failure to thrive) in adult Lymphedema of both lower extremities Chronic venous stasis dermatitis of both lower extremities Low back pain Hypertension Atrial fibrillation Debility Pain of left great toe Pain in right lower leg Hyperglycemia Leg pain Toe ulcer Lymphedema Non-pressure chronic ulcer of other part of right foot with necrosis of muscle Cellulitis of right lower limb Deep venous thrombosis 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 layer exposed Venous insufficiency Skin ulcer of left great toe with fat layer exposed Dyspnea on minimal exertion Anomalous origin of coronary artery Obesity New onset atrial fibrillation (03/24/20) Essential (primary) hypertension Pain of left lower extremity due to injury Former smoker Traumatic hematoma of left lower leg Arthritis Benign neoplasm of middle ear, nasal cavity and accessory sinuses ANDREE (obstructive sleep apnea) Cervical disc disease BPH (benign prostatic hyperplasia) GERD (gastroesophageal reflux disease) Hyperlipidemia Atherosclerotic heart disease of [place] coronary artery without angina pectoris Cardiac murmur, unspecified Home Medications ?Medication ?Instructions ?Recorded ?Last Taken ?Type rivaroxaban 20 mg tablet (Xarelto) 20 mg PO DINNER BLOOD THINNER #0 12/28/21 09/01/23 Rx tabs potassium chloride 20 mEq 20 meq PO BIDCM potassium #0 tabs 03/29/23 09/01/23 Rx tablet,extended release(part/cryst) (Klor-Con M) Lactobacil rhamnosus GG 10 billion 1 cap PO BID 09/02/23 09/01/23 History cell-inulin 200 mg sprinkle capsule ([facility]ell[facility]) gabapentin 300 mg capsule 300 mg PO TID 09/02/23 09/01/23 History atorvastatin 40 mg tablet 40 mg PO QHS #0 tabs 09/07/23 Unknown Rx furosemide 40 mg tablet 40 mg PO BIDCM diuretic 30 days 09/07/23 09/01/23 Rx #60 tabs acetaminophen 500 mg tablet 1,000 mg (2 x 500 mg) PO Q8 #0 tabs 10/25/23 Unknown Rx menthol 0.44 %-zinc oxide 20.6 % 1 applic topical BID #0 grams 10/25/23 Unknown Rx topical ointment (Calmoseptine) nystatin 100,000 unit/gram topical 1 applic topical BID #0 grams 10/25/23 Unknown Rx powder (Nyamyc) losartan 100 mg tablet 125 mg PO DAILY blood pressure 12/25/23 Unknown History Allergy/AdvReac Type Severity Reaction Status Date / Time diphenhydramine (From AdvReac Mild Abd Verified 12/25/23 17:51 Benadryl) cramps/diarrhea ibuprofen (From Motrin) AdvReac Nausea Verified 12/25/23 17:51 Family History Mother CAD (coronary artery disease) Hypertension History of cardiac radiofrequency ablation Sister Hypertension Other Arthritis Surgical History History of coronary artery stent placement H/O cervical spine surgery History of herniorrhaphy History of carpal tunnel release History of transurethral resection of prostate History of coronary artery stent placement (11/29/10) History of bursectomy History of removal of cyst History of carpal tunnel surgery History of fusion of cervical spine Social History household members: other details: Older son Naeem. Smoking Status: Former smoker alcohol intake: never substance use type: does not use ROS ROS ED Constitutional Constitutional ED: Reports fever(s); Denies chills Eyes Eyes: Reports blurry vision; Denies diplopia ENT ENT ED: Denies rhinorrhea or sore throat Cardiovascular Cardiovascular: Denies chest pain or palpitations Respiratory/Chest Respiratory/Chest: Denies cough or dyspnea Gastrointestinal Gastrointestinal: Reports nausea and vomiting Genitourinary Genitourinary ED: Denies dysuria or hematuria Musculoskeletal Musculoskeletal: Reports neck pain; Denies back pain Integumentary Denies abscess or rash Neurologic Neurologic: Reports headache(s); Denies weakness Allergic/Immunologic Allergic/Immunologic ED: Denies mouth swelling or urticaria EXAM Physical Exam Const Vital Signs: 12/25/23 17:51 12/25/23 17:53 12/25/23 19:24 Temperature 101.8 F H 101.8 F H 103.2 F H Temperature Source Oral Oral Oral Pulse Rate 115 H 115 H 122 H Respiratory Rate 25 H 25 H 23 H Respiratory Effort Respiratory Pattern Blood Pressure 143/76 H 143/76 H 156/111 H Blood Pressure Mean 98 98 126 Pulse Ox 98 98 91 Oxygen Delivery Method Room Air Room Air Room Air 12/25/23 19:24 12/25/23 19:26 12/25/23 19:37 Temperature 103.2 F H Temperature Source Oral Pulse Rate 122 H Respiratory Rate 23 H Respiratory Effort Normal Non-Labored Respiratory Pattern Normal Blood Pressure 156/111 H Blood Pressure Mean 126 Pulse Ox 91 93 Oxygen Delivery Method Room Air Room Air 12/25/23 20:39 12/25/23 20:39 12/25/23 21:47 Temperature 103 F H 103 F H Temperature Source Oral Oral Pulse Rate 127 H 122 H 137 H Respiratory Rate 23 H 23 H Respiratory Effort Respiratory Pattern Blood Pressure 173/103 H 108/70 Blood Pressure Mean 126 82 Pulse Ox 92 93 Oxygen Delivery Method Room Air Room Air 12/25/23 21:48 12/25/23 22:35 Temperature 102.7 F H Temperature Source Oral Pulse Rate 140 H Respiratory Rate 20 H Respiratory Effort Respiratory Pattern Blood Pressure 108/70 129/78 H Blood Pressure Mean 82 95 Pulse Ox 95 Oxygen Delivery Method Room Air Positive well nourished and well developed General Appearance ED: well developed and NAD HEENT Reports moist mucous membranes Neck supple and no JVD Resp normal respiratory effort and clear to auscultation bilaterally Cardio Rate: tachycardic Rhythm: abnormal rhythm irregularly irregular GI non-distended Palpation: soft and tender epigastric, LLQ, RLQ, LUQ, RUQ, periumbilical and suprapubic; Negative for guarding or rebound tenderness present Neuro oriented x3, CN's II-XII intact bilaterally and no sensory deficits noted Sensorium / Orientation: alert Psych mental status grossly normal Skin Skin Narrative: There is a chronic wound to the lateral aspect of the right lower leg. There is a fungal rash noted in the skin folds of the abdomen. There is no discharge or drainage. There is no involvement of the mucous membranes. There are no petechia noted. MDM MDM MDM Narrative Medical decision making narrative: Differential diagnosis includes sepsis, wound infection, urinary tract infection, pneumonia, dehydration, coagulopathy, and viral illness. EKG will be obtained to assess for cardiac dysrhythmia and cardiac ischemia. Chest x-ray will be obtained to assess for pneumonia or pneumothorax. CBC will be obtained to assess for leukocytosis and anemia. Comprehensive metabolic profile will be obtained to assess for hepatic function, renal function, and electrolyte abnormality. Urinalysis will be obtained to assess for urinary tract infection. PT with INR and PTT will be obtained to assess for coagulopathy. Serum lactate will be obtained to assess for sepsis. COVID-19, influenza, and RSV PCR will be obtained to assess for viral illness blood culture will be obtained to assess for sepsis. Urine culture will be obtained to assess for urinary tract infection. Lab Data Attestation: I reviewed the patient's lab results. Lab results narrative: Urinalysis was reviewed. Leukocyte esterase was 100. There were 0-5 white blood cells noted. CBC was reviewed. There is a leukocytosis of 21.1. The remainder is within normal limits. PT with INR and PTT were reviewed. Pro time was 17.7 and INR is 1.5. PTT was mildly elevated at 43.6. Comprehensive metabolic profile was reviewed. Glucose was slightly elevated at 143. The remainder was essentially within normal limits. Urinalysis was reviewed. There is no evidence of urinary tract infection or hematuria. Serum lactate was reviewed and was normal at 1.6. COVID-19 PCR was reviewed and was negative. Influenza PCR was reviewed and was negative for influenza A and influenza B. RSV PCR was reviewed and was negative. Labs: Laboratory Results - last 24 hr 12/25/23 12/25/23 12/25/23 17:47 19:20 19:24 WBC 21.1 H RBC 4.73 Hgb 14.4 Hct 44.2 MCV 93.4 MCH 30.4 MCHC 32.6 RDW Std Deviation 48.5 H RDW Coeff of [place] 14.1 Plt Count 237 MPV 10.0 Immature Gran % (Auto) 0.800 Neut % (Auto) 91.8 H Lymph % (Auto) 2.2 L [place] % (Auto) 4.1 Eos % (Auto) 0.9 Baso % (Auto) 0.2 Absolute Neuts (auto) 19.3 H Absolute Lymphs (auto) 0.47 L Nucleated RBC % 0 PT 17.7 H INR 1.5 APTT 43.6 H Sodium 138 Potassium 3.7 Chloride 101 Carbon Dioxide 30.0 Anion Gap 7 BUN 17 Creatinine 1.19 Estim Creat Clear Calc 67.54 Est GFR (MDRD) Af Amer 77 Est GFR (MDRD) Non-Af 64 BUN/Creatinine Ratio 14.3 Glucose 143 H Lactic Acid 1.6 Calcium 9.2 Total Bilirubin 1.00 AST 18 ALT 29 Alkaline Phosphatase 119 H Total Protein 8.3 H Albumin 3.3 Globulin 5.0 H Albumin/Globulin Ratio 0.7 L Urine Color Yellow Urine Clarity Clear Urine pH 5.0 Ur Specific [place] 1.010 Urine Protein Negative Urine Glucose (UA) Normal Urine Ketones Negative Urine Occult Blood 10 H Urine Nitrite Negative Urine Bilirubin Negative Urine Urobilinogen Normal Ur Leukocyte Esterase 100 H Urine RBC 0 SEEN Urine WBC 0-5 SEEN Ur Squamous Epith Cells 0 SEEN Urine Bacteria 0 SEEN Urine Mucus 0 SEEN Radiography Diagnostic Testing: Clinical Impression(s) from Imaging Studies Chest X-Ray 12/25/23 20:00 IMPRESSION: Mild interstitial prominence. Electronically Signed: Jamar Edmonds DO at 20:11 EDT Reading Location ID and State: [facility] / [place] Tel [phone], Service support , Portable 1 view chest x-ray was obtained. On my independent interpretation, lung lui show mild interstitial prominence. There is normal cardiac silhouette. Bony thorax is normal. There is no acute process noted. Radiologist also interpreted the x-ray and agrees. EKG Initial EKG: Attestation: I personally reviewed and interpreted this EKG as follows: Interpretation: Atrial Fibrillation (123) and Non-Specific ST Changes Comments: EKG was obtained. On my independent interpretation, shows atrial fibrillation with a rate of 123. QRS interval was normal at 112 ms. QTc interval is normal at 478 ms. There is left axis deviation at -51. There are nonspecific ST-T wave changes. Prior EKG tracings: available for review Prior: Unchanged (10/23/2023) Management Discussion w/another healthcare provider: Hospitalist (Dr. Mueller) Treatment and Re-Evaluation :: Patient met SIRS criteria. It appears that the source for the fever is over the leg wound. Patient was started on Unasyn and vancomycin. Patient was also given Tylenol here. Patient still tachycardic on reevaluation. Patient still febrile. Patient is allergic to ibuprofen. Case was discussed with the hospitalist. He recommended obtaining a CT scan of the lower leg to assess for subcutaneous air. This was ordered. He will admit the patient to ICU. Patient and son understood and were agreeable with the plan. All questions were answered. Discharge Plan Dx/Rx/DC Orders Clinical Impression: Sepsis, Debility, Leg wound, right, Atrial fibrillation Disposition Disposition: Acute Care [facility]
[2023-12-25 19:44] LABS: Absolute Lymphocyte Count 0.47 X10^3/uL (0.83-4.51); Absolute Neutrophil Count 19.3 X10^3/uL (2.0-7.7); Basophil# 0.04 X10^3/uL; Basophil% 0.2 % (0-1); Eosinophils% 0.9 % (0-5); Hematocrit 44.2 % (40-54); Hemoglobin 14.4 g/dL (13.0-16.5); Lymphocyte # 0.47 X10^3/ul (0.83-4.51); Lymphocyte % 2.2 % (19-41); Mean Corp Hgb Conc 32.6 g/dL (32-36); Mean Corpuscular Hgb 30.4 pg (27.0-32.0); Mean Corpuscular Volume 93.4 fL (80-94); Monocyte# 0.87 X10^3/uL; Monocyte% 4.1 % (0-10); NRBC Flagged by Analyzer 0 % (0-5); Neutrophil # 19.31 X10^3/uL (2.7-7.7); Neutrophil % 91.8 % (47-70); POSITIVE DIFFERENTIAL YES; Platelet Count 237 K/mm3 (150-450); RBC Distribution Width CV 14.1 % (11.6-14.6); RBC Distribution Width SD 48.5 fl (35.1-43.9); Red Blood Count 4.73 M/mm3 (4.6-6.2); White Blood Count 21.1 K/mm3 (4.4-11.0)
[2023-12-25] MEDS: 0.9% Normal Saline (1000mL) 1,000 ML 999 ML IV (19:44)
[2023-12-25] MEDS: Acetaminophen 500 MG Tablet 1000 MG PO (19:44)
[2023-12-25 19:58] LABS: International Normalized Ratio 1.5; Prothrombin Time (Protime)PT. 17.7 SECONDS (11.7-14.9)
[2023-12-25 19:59] LABS: Partial Thromboplast Time 43.6 Seconds (24.1-36.2)
--- NOTE | 2023-12-25 20:00 | RAD_ITS ---
INDICATION: Fever EXAMINATION/TECHNIQUE: X-RAY - XR Chest 1 View COMPARISON: October 22, 2023 FINDINGS: LINES/DEVICES: None. LUNGS: No consolidation, edema or effusion. Mild interstitial prominence. No pneumothorax. MEDIASTINUM AND CARDIOVASCULAR STRUCTURES: Cardiac silhouette not enlarged. Central airways and mediastinal contour are unremarkable. BONES AND SOFT TISSUES: Degenerative vertebral changes. Lower cervical surgical fusion RAD/Chest 1 View (Portable) IMPRESSION: Mild interstitial prominence. Electronically Signed: Jamar Edmonds DO at 20:11 EDT ,
[2023-12-25 20:04] LABS: ALB/GLOB Ratio 0.7 RATIO (0.9-2.4); AST(SGOT) 18 U/L (15-37); Alanine Aminotransfer ALT/SGPT 29 U/L (16-61); Albumin, Serum 3.3 g/dL (3.2-5.0); Alkaline Phosphatase 119 U/L (45-117); Anion Gap 7 (5-15); BUN 17 mg/dL (7-18); BUN/Creat Ratio 14.3 RATIO (10-20); Calcium,Total 9.2 mg/dL (8.5-10.1); Chloride 101 mmol/L (98-107); Creatinine, Serum 1.19 mg/dL (0.70-1.30); EST Glomerular Filtration Rate 64 mL/min (>60); Est Glom Filt Rate - Afr Amer 77 mL/min (>60); Estimated Creatinine Clearance 67.54 ml/min; Glucose 143 mg/dL (74-106); Potassium 3.7 mmol/L (3.5-5.1); Protein, Total 8.3 g/dL (6.4-8.2); Sodium Level 138 mmol/L (136-145)
[2023-12-25 20:11] LABS: Lactic Acid 1.6 mmol/L (0.4-1.9)
[2023-12-25] MEDS: Ampicillin/Sulbactam 3 GM in 0.9% Normal Saline (100mL MB+) 100 ML IV (21:44)
[2023-12-25] MEDS: Vancomycin HCl 2,000 MG in 0.9% Normal Saline (500mL Bag) 500 ML 250 MG IV (22:34)
--- NOTE | 2023-12-25 22:50 | PCM.HP.STD ---
[facility] - General General Date of Admission: 12/25/23 Date of Service: 12/25/23 Chief Complaint: Fever, Confusion and Acute Worsening Chronic RLE Wound. HPI Narrative TURNER ROBERSON, is a 73 M with a past medical history of essential hypertension, hyperlipidemia, morbid obesity; with BMI of 42.7 this admission, ANDREE; noncompliant with CPAP, history of tobacco abuse, chronic atrial fibrillation; on Xarelto, history of CVA; with residual Right-sided weakness, history of CAD; s/p stent (2010), chronic RLE wound; after fall, neuropathic pain, history of CHF, chronic venous stasis, chronic venous insufficiency, history of adult [id number], cervical DDD; with history of c-spine fusion, history of carpal tunnel surgery, BPH; s/p TURP, GERD OA; with Low Back Pain who presents to [facility] ER complaining of fever, confusion and worsening of his chronic RLE wound. Mr. Roberson is not a fully reliable historian at this time but his son reports his symptoms began a few days ago when he began turning up the thermostat in his room because he was feeling cold in spite of the increased summer temperatures and then earlier today he developed an abrupt-onset of burning, sharp pain in his Right leg followed by spiking a fever up to 102 degrees Fahrenheit at home with associated confusion. His son also reported poor wound healing in spite of frequent dressing changes. He also admits to associated tension-type headache and nausea with bilious emesis. He states his pain was transiently improved after Tylenol but when his symptoms continued to worsen he decided to come in for further evaluation and treatment. In the ER he was diagnosed with RLE Cellulitis complicated by clinical evidence of Sepsis evidenced by fever of 103.2 and Severe Leukocytosis of 21.1K with tachycardia of 140 bpm present on admission compounded by Atrial Fibrillation with RVR and Acute Metabolic Encephalopathy and he was then admitted to the PCU for treatment under the Sepsis protocol for a stay that is expected to extend beyond 2 midnights. [facility] Medical History (Updated 12/26/23 @ 02:[address] Bari Resendez DO) Lipodermatosclerosis of both lower extremities Venous insufficiency (chronic) (peripheral) History of stroke History of CAD (coronary artery disease) History of atrial fibrillation Neuropathic pain Obesity Essential (primary) hypertension Hemiplegia of right dominant side as late effect of cerebral infarction Right rotator cuff tear Right hemiplegia Congestive heart failure (CHF) Ambulatory dysfunction Generalized weakness Tinea cruris Chronic venous stasis dermatitis Lymphedema Chronic anticoagulation Bilateral cellulitis of lower leg Candidiasis of skin Adult failure to thrive Hemiplegia affecting right dominant side Anticoagulant long-term use Pneumonia Cellulitis Atrial fibrillation CVA (cerebral vascular accident) Rotator cuff tear arthropathy of right shoulder CPAP (continuous positive airway pressure) dependence Sleep apnea FTT (failure to thrive) in adult Lymphedema of both lower extremities Chronic venous stasis dermatitis of both lower extremities Low back pain Hypertension Atrial fibrillation Debility Pain of left great toe Pain in right lower leg Hyperglycemia Leg pain Toe ulcer Lymphedema Non-pressure chronic ulcer of other part of right foot with necrosis of muscle Cellulitis of right lower limb Deep venous thrombosis 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 layer exposed Venous insufficiency Skin ulcer of left great toe with fat layer exposed Dyspnea on minimal exertion Anomalous origin of coronary artery Obesity New onset atrial fibrillation (03/24/20) Essential (primary) hypertension Pain of left lower extremity due to injury Former smoker Traumatic hematoma of left lower leg Arthritis Benign neoplasm of middle ear, nasal cavity and accessory sinuses ANDREE (obstructive sleep apnea) Cervical disc disease BPH (benign prostatic hyperplasia) GERD (gastroesophageal reflux disease) Hyperlipidemia Atherosclerotic heart disease of [place] coronary artery without angina pectoris Cardiac murmur, unspecified Home Medications ?Medication ?Instructions ?Recorded ?Last Taken ?Type rivaroxaban 20 mg tablet (Xarelto) 20 mg PO DINNER BLOOD THINNER #0 12/28/21 09/01/23 Rx tabs potassium chloride 20 mEq 20 meq PO BIDCM potassium #0 tabs 03/29/23 09/01/23 Rx tablet,extended release(part/cryst) (Klor-Con M) Lactobacil rhamnosus GG 10 billion 1 cap PO BID 09/02/23 09/01/23 History cell-inulin 200 mg sprinkle capsule (nvite) gabapentin 300 mg capsule 300 mg PO TID 09/02/23 09/01/23 History atorvastatin 40 mg tablet 40 mg PO QHS #0 tabs 09/07/23 Unknown Rx furosemide 40 mg tablet 40 mg PO BIDCM diuretic 30 days 09/07/23 09/01/23 Rx #60 tabs acetaminophen 500 mg tablet 1,000 mg (2 x 500 mg) PO Q8 #0 tabs 10/25/23 Unknown Rx menthol 0.44 %-zinc oxide 20.6 % 1 applic topical BID #0 grams 10/25/23 Unknown Rx topical ointment (Calmoseptine) nystatin 100,000 unit/gram topical 1 applic topical BID #0 grams 10/25/23 Unknown Rx powder (Nyamyc) losartan 100 mg tablet 125 mg PO DAILY blood pressure 12/25/23 Unknown History Allergy/AdvReac Type Severity Reaction Status Date / Time diphenhydramine (From AdvReac Mild Abd Verified 12/25/23 17:51 Benadryl) cramps/diarrhea ibuprofen (From Motrin) AdvReac Nausea Verified 12/25/23 17:51 Family History Mother CAD (coronary artery disease) Hypertension History of cardiac radiofrequency ablation Sister Hypertension Other Arthritis Surgical History History of coronary artery stent placement H/O cervical spine surgery History of herniorrhaphy History of carpal tunnel release History of transurethral resection of prostate History of coronary artery stent placement (11/29/10) History of bursectomy History of removal of cyst History of carpal tunnel surgery History of fusion of cervical spine Social History household members: other details: Older son Naeem. Smoking Status: Former smoker alcohol intake: never substance use type: does not use ROS ROS Narrative Review of Systems could not be done at this time due to patient's acute severe illness and metabolic encephalopathy. Vital Signs Vital Signs Vital Signs: 12/25/23 17:51 12/25/23 17:53 12/25/23 19:24 Temperature 101.8 F H 101.8 F H 103.2 F H Temperature Source Oral Oral Oral Pulse Rate 115 H 115 H 122 H Respiratory Rate 25 H 25 H 23 H Respiratory Effort Respiratory Pattern Blood Pressure 143/76 H 143/76 H 156/111 H Blood Pressure Mean 98 98 126 Pulse Ox 98 98 91 Oxygen Delivery Method Room Air Room Air Room Air 12/25/23 19:24 12/25/23 19:26 12/25/23 19:37 Temperature 103.2 F H Temperature Source Oral Pulse Rate 122 H Respiratory Rate 23 H Respiratory Effort Normal Non-Labored Respiratory Pattern Normal Blood Pressure 156/111 H Blood Pressure Mean 126 Pulse Ox 91 93 Oxygen Delivery Method Room Air Room Air 12/25/23 20:39 12/25/23 20:39 12/25/23 21:47 Temperature 103 F H 103 F H Temperature Source Oral Oral Pulse Rate 127 H 122 H 137 H Respiratory Rate 23 H 23 H Respiratory Effort Respiratory Pattern Blood Pressure 173/103 H 108/70 Blood Pressure Mean 126 82 Pulse Ox 92 93 Oxygen Delivery Method Room Air Room Air 12/25/23 21:48 12/25/23 22:35 Temperature 102.7 F H Temperature Source Oral Pulse Rate 140 H Respiratory Rate 20 H Respiratory Effort Respiratory Pattern Blood Pressure 108/70 129/78 H Blood Pressure Mean 82 95 Pulse Ox 95 Oxygen Delivery Method Room Air Weight Weight: 272 lb 4.334 oz Body Mass Index (BMI) 42.7 Physical Exam Const alert and oriented x3 Constitutional Narrative: Patient is morbidly obese and appears chronically ill. General Appearance: cooperative Orientation / Consciousness: confused and lethargic HEENT normocephalic, head/scalp atraumatic, hearing grossly normal bilaterally and moist oral mucous membranes Eyes PERRL and EOMs intact bilaterally Neck no lymphadenopathy and supple Resp normal respiratory effort, no retractions, no use of accessory muscles and clear to auscultation bilaterally Cardio regular rate and regular rhythm Cardio Narrative: Tachycardia in the 140 bpm range. GI normal to inspection, nondistended, normoactive bowel sounds, soft to palpation, non-tender and non-distended GI Narrative: Morbidly obese. Extremity Extremity Narrative: RLE wound with surrounding erythema. Skin Skin Narrative: Tinea cruris rash in pannus and axillary skin folds. Neuro CN's II-XII intact bilaterally, moves all extremities and no focal motor deficits Sensorium / Orientation: awake, alert and oriented to person Speech: speech normal Psych affect normal Results Medical Records Data Attestation: I reviewed the patient's medical records Lab / Micro Data Attestation: I reviewed the patient's lab results. 12/25/23 19:20 12/25/23 19:24 Labs: Laboratory Results - last 24 hr 12/25/23 17:47: Urine Color Yellow, Urine Clarity Clear, Urine pH 5.0, Ur Specific [place] 1.010, Urine Protein Negative, Urine Glucose (UA) Normal, Urine Ketones Negative, Urine Occult Blood 10 H, Urine Nitrite Negative, Urine Bilirubin Negative, Urine Urobilinogen Normal, Ur Leukocyte Esterase 100 H, Urine RBC 0 SEEN, Urine WBC 0-5 SEEN, Ur Squamous Epith Cells 0 SEEN, Urine Bacteria 0 SEEN, Urine Mucus 0 SEEN 12/25/23 19:20: WBC 21.1 H, RBC 4.73, Hgb 14.4, Hct 44.2, MCV 93.4, MCH 30.4, MCHC 32.6, RDW Std Deviation 48.5 H, RDW Coeff of Naz 14.1, Plt Count 237, MPV 10.0, Immature Gran % (Auto) 0.800, Neut % (Auto) 91.8 H, Lymph % (Auto) 2.2 L, [place] % (Auto) 4.1, Eos % (Auto) 0.9, Baso % (Auto) 0.2, Absolute Neuts (auto) 19.3 H, Absolute Lymphs (auto) 0.47 L, Nucleated RBC % 0 12/25/23 19:24: PT 17.7 H, INR 1.5, APTT 43.6 H, Sodium 138, Potassium 3.7, Chloride 101, Carbon Dioxide 30.0, Anion Gap 7, BUN 17, Creatinine 1.19, Estim Creat Clear Calc 67.54, Est GFR (MDRD) Af Amer 77, Est GFR (MDRD) Non-Af 64, BUN/Creatinine Ratio 14.3, Glucose 143 H, Lactic Acid 1.6, Calcium 9.2, Total Bilirubin 1.00, AST 18, ALT 29, Alkaline Phosphatase 119 H, Total Protein 8.3 H, Albumin 3.3, Globulin 5.0 H, Albumin/Globulin Ratio 0.7 L Micro: Microbiology 12/25/23 18:26 Mucosa - Nose SARS-CoV-2, Influenza & RSV (PCR) - Final Imaging Radiology Impression Chest X-Ray 12/25/23 20:00 IMPRESSION: Mild interstitial prominence. Electronically Signed: Jamar Edmonds DO at 20:11 EDT , [facility] Imaging Services [address] [place] [address] Extremity Lower without Contra MR#: [id number] Acct: [id number] Name: TURNER ROBERSON . Rep #: [id number] : 1950 73 From: Corona Clarke MD PCP: JAVIER Celis Status: [facility] ER Study: Extremity Lower without Contra Date of Exam: 12/25/23 Exam# [id number] Ordering Dr: Kervin Nuñez DO CT RIGHT LOWER EXTREMITY WITH 3-D IMAGING CLINICAL INDICATION: Right leg wound TECHNIQUE: Axial CT images of the RIGHT lower extremity was performed IV contrast material. Coronal and sagittal reformats were provided. The protocol utilizes one or more of the following dose reduction techniques: automated exposure control, adjustment of mA and/or kV according to patient size,and/or use of iterative reconstruction technique. RADIATION DOSAGE (If Supplied By Facility): CTDIvol = ( 15.37 ) mGy, DLP = ( 903.47 ) mGycm COMPARISON: FINDINGS: Bones: Osseous structures are normal without evidence of fracture or dislocation. No lytic or blastic osseous masses. Soft Tissues: Extensive subcutaneous fat stranding in the right lower leg suggesting cellulitis. There is no abnormal fluid collection to suggest an abscess . CT/Extremity Lower without Contra IMPRESSION: Cellulitis. Electronically Signed: Corona Clarke MD at 0:06 EDT , CC: JAVIER Jensen; Dr. Kervin Nuñez, DO ~ Bicycle Messenger: Signed Assessment & Plan Assessment/Plan (1) Leg wound, right: QUALIFIERS: Encounter type: initial encounter Qualified Code(s): S81.801A - Unspecified open wound, right lower leg, initial encounter (2) Cellulitis: QUALIFIERS: Laterality: right Site of cellulitis: extremity Site of cellulitis of extremity: lower extremity Qualified Code(s): L03.115 - Cellulitis of right lower limb (3) Sepsis: QUALIFIERS: Sepsis acute organ dysfunction status: with acute organ dysfunction Sepsis type: sepsis due to unspecified organism Severe sepsis acute organ dysfunction type: encephalopathy Severe sepsis shock status: without septic shock Qualified Code(s): A41.9 - Sepsis, unspecified organism; R65.20 - Severe sepsis without septic shock; G93.41 - Metabolic encephalopathy (4) Metabolic encephalopathy: (5) History of CVA (cerebrovascular accident): (6) Atrial fibrillation: QUALIFIERS: Atrial fibrillation type: unspecified Qualified Code(s): I48.91 - Unspecified atrial fibrillation (7) Morbid obesity with BMI of 40.0-44.9, adult: (8) Lipodermatosclerosis of both lower extremities: (9) Venous insufficiency (chronic) (peripheral): PLAN: Plan 1. RLE Cellulitis due to Acute Worsening of Chronic RLE Wound with acute exacerbation of chronic neuropathic pain - Admit to PCU for treatment under the Sepsis protocol. Continue IV Vancomycin and give IV Zosyn and await culture and sensitivity data. Swab wound to check MRSA PCR with known history of MRSA. Give Tylenol prn for [id number] (level 1-5/10) pain or fever. Give Morphine IV prn for severe (level 6-10/10) pain. Finally, we will consult the Wound RN to see this patient on-rounds in the AM for further recommendations with help appreciated in advance. 2. Chronic Atrial Fibrillation with RVR complicating #1 - Continue IV Digoxin to keep heart rate < 100 bpm. 3. Acute Metabolic Encephalopathy arising from #1 & #2 in the setting of previous CVA; with residual Right sided weakness with history of Adult [id number] - Resume supportive care and monitor for improvement. 4. Morbid Obesity; with BMI of 42.7 this admission with Severe Tinea Cruris plus ANDREE adding to the complexity of #1 - #3 - Weight loss will be recommended. Resume Nystatin powder. Continue nocturnal CPAP as previous. This complicates his case and may hamper recovery. 5. Chronic Venous Stasis with Chronic Venous Insufficiency and Lipodermatosclerosis of both LE's compounding #1 -#4 - Noted. 6. Essential hypertension - Hold scheduled antihypertensives until infection outlined above has been neutralized. 7. Hyperlipidemia - Resume statin and check Lipid Profile. 8. History of tobacco abuse - Noted. 9. History of CAD; s/p stent (2010) - Stable. 10. History of CHF - Noted. Check BNP. 11. Cervical DDD; with history of c-spine fusion - Stable. 12. History of carpal tunnel surgery - Noted. 13. BPH; s/p TURP - Stable. 14. GERD - Noted with patient not currently on PPI or H2-jess. 15. OA; with Low Back Pain - Give Tylenol prn. 16. DVT prophylaxis - Patient already on Xarelto for #2 which will be continued. Total time: Approximately 75 minutes. Sepsis Attestation Sepsis Alert: Yes Sepsis Attestation: Agree w/Sepsis Date exam was performed: 12/25/23 Time exam was performed: 23:00 Possible Source of Sepsis: Skin/soft tissue and Wound Sepsis Organ Dysfunction Criteria Present: New/Unexplained change in mental status Fluid Resuscitation Fluid resuscitation indicated?: Yes Fluid Resuscitation ordered: 30 ml/kg fluid bolus ordered Amount of fluid ordered: 2 Reason for lesser fluid bolus:: Concern for fluid overload, Heart failure and BP Responded to a lesser volume Sepsis Note Date exam was performed: 12/26/23 Time exam was performed: 03:00 Sepsis Attestation: Sepsis re-evaluation was performed Response to fluids: Fluid responsive hypotension Charges/Coding Visit Charges Inpatient E&M: 29066 Init Hosp L3
[2023-12-25] MEDS: Morphine 4 MG/ML Syringe IV (23:01)
[2023-12-26] VITALS (13 sets, daily range): BP systolic 100–131; BP diastolic 62–77; PULSE 78–124; RESP 17–20; TEMP 36.6–38.2; O2SAT 93–96; BMI 43.2
[2023-12-26] MEDS: 0.9% Normal Saline (1000mL) 1,000 ML 999 ML IV ×4 (00:14→04:42)
[2023-12-26] MEDS: Morphine 2 MG/ML Syringe IV ×3 (02:46→14:45)
--- NOTE | 2023-12-26 03:25 | PCM.RX.CS ---
Consult Antibiotic Management Pharmacy has been consulted to manage selected antibiotic: Vancomycin Type of Intervention Type of Consult: New start Labs Labs: Sodium 138 mmol/L (136-145) 12/25/23 19:24 Potassium 3.7 mmol/L (3.5-5.1) 12/25/23 19:24 Chloride 101 mmol/L (98-107) 12/25/23 19:24 Carbon Dioxide 30.0 mmol/L (21.0-32.0) 12/25/23 19:24 Anion Gap 7 (5-15) 12/25/23 19:24 BUN 17 mg/dL (7-18) 12/25/23 19:24 Creatinine 1.19 mg/dL (0.70-1.30) 12/25/23 19:24 Est GFR (MDRD) Af Amer 77 mL/min (>60) 12/25/23 19:24 Est GFR (MDRD) Non-Af 64 mL/min (>60) 12/25/23 19:24 BUN/Creatinine Ratio 14.3 RATIO (10-20) 12/25/23 19:24 Glucose 143 mg/dL (74-106) H 12/25/23 19:24 Microbiology Microbiology: Microbiology 12/25/23 18:26 Mucosa - Nose SARS-CoV-2, Influenza & RSV (PCR) - Final Dosing Weight Weight used for dosin.7 kg Estimated Creatinine Clearance Estimated Creatinine Clearance: 67.5 Pharmacy Plan for Drug Dosing Pharmacy Plan for Drug Dosing: Pharmacy Service will continue to monitor and adjust dosing as required. 2000MG IN ER, 1500 BID TROUGH PRIOR TO 4TH DOSE Follow-Up Labs Follow-Up Labs: Trough: Vancomycin Date/Time Labs Ordered Labs to be done on [date and time ordered]: 12/26 @ 1000
[2023-12-26] MEDS: Piperacil/Tazobactam 3.375 GM in 0.9% Normal Saline (50mL MB+) 50 ML IV ×3 (06:04→22:59)
[2023-12-26] MEDS: Gabapentin 300 MG Capsule PO ×3 (06:15→22:59)
--- NOTE | 2023-12-26 09:45 | CASEMGMT ---
Addendum entered by Terrell Roa 12/26/23 13:36: Per [facility], pt is active with them. JON Gramajo CM, made aware. [facility] notified pt has been admitted to [facility]. Original Note: RN HIWOT platform loader HIWOT to room to meet with patient for initial transition planning/care coordination assessment. JON MI introduced self and role at [facility], pt voices understanding. Pt is A&O and is sitting up in bed, finishing breakfast. Care providers, pharmacy, and demographics verified. LACE/STRATA: 10/07 Admitting dx: RLE cellulitis and wound with sepsis PCP: Shanda Jensen, [employer]PRENTICE Specialists: Pt states he plans to f/u @ [facility], but states has not scheduled an appt yet. Preferred Pharmacy: [facility]. Would like to get meds from [facility] retail pharmacy @ [facility]. Insurance: [facility] Prescription Benefit: Yes LNOK: Naeem Roberson (son), Maco Roberson (Son) Living Arrangements: Pt lives with his son Naeem in a two story home with FFSU and ramp entrance. Pt states he can do his own bathing/dressing mostly, son can assist as needed. Son manages his medications, gets groceries/makes meals, and most home mgnt tasks. Pt states he does his own laundry. Wound Care/Dressing Changes: pt states he has problems with dsg changes to BLE, stating d/t his legs seeping they start coming off shortly after being wrapped. He states d/t this he often keeps them MEAGHAN. He states his son will do wound care/dresing changes, stating, He pretty much does them when I ask him to, but if I don't want him to, then he won't. Transportation: Both Sons DME: Zach lift. BSC. Shower chair. Hospital Bed. FWW. Cane. W/C. Pt states he used to have a CPAP years ago but states he returned it. HHC/SNF: Hx at the [facility], [facility], and [facility]. Pt was dc'd to [facility] 09/2023 and states he was there 3-4 weeks before returning home. He states he was getting HHC, stating he does not remember the name, stating, [facility]. He states his son would know the name of agency. He is not sure if he is active w/them. If he is, he would like to resume w/them and declines wanting list of other HHC options. Plan: Pt prefers to discharge home w/HHC, but does state would consider SNF, if recommended by therapy. YANETH Gramajo RN, CM, made aware. CM and SW to follow. PT/OT evals pending. Sandy GILBERTN RN CM
--- NOTE | 2023-12-26 10:04 | CASEMGMT ---
Addendum entered by Natalie Torres 12/26/23 10:11: [facility] states that the pt is active with their services for SN, PT, & OT. Original Note: TC to pt son (Naeem) who states the pt was active with [facility] but is unsure if the pt is still active or not. Referral sent to [facility] in [facility] at this time to confirm. Also, pt son states that he tends to the pt wounds as best as he can at home. Pt son states that the pt had a bad experience at the [facility] and would not want to go back.
[2023-12-26] MEDS: Menthol/Lanolin/Calamine/Znox 113 GM Tube 1 APPLIC TOPICAL ×2 (10:23→20:38)
[2023-12-26] MEDS: Nystatin Powder 15gm Bottle 1 APPLIC TOPICAL ×2 (10:23→20:38)
[2023-12-26] MEDS: Lactobacillis Acidophilus 1 CAP PO ×2 (10:24→20:39)
[2023-12-26] MEDS: Acetaminophen 325 MG Tablet 650 MG PO (10:32)
[2023-12-26] MEDS: Vancomycin HCl 1,500 MG in 0.9% Normal Saline (500mL Bag) 500 ML 250 MG IV ×2 (10:41→20:49)
[2023-12-26] MEDS: 0.9% Saline Lock 10 ML Syringe IV ×2 (10:41→18:30)
--- NOTE | 2023-12-26 11:35 | WOUNDNOTE ---
skin photo: left lower leg
--- NOTE | 2023-12-26 11:35 | WOUNDNOTE ---
wound photo: left foot
--- NOTE | 2023-12-26 11:36 | WOUNDNOTE ---
wound photo: left lateral lower leg
--- NOTE | 2023-12-26 11:37 | WOUNDNOTE ---
wound photo: right great toe
--- NOTE | 2023-12-26 11:38 | WOUNDNOTE ---
wound photo: right anterolateral lower leg
--- NOTE | 2023-12-26 13:06 | CHAPLAIN ---
Type of Pastoral Visit _x__ Initial Visit ___ Follow-up Visit ___ On-call Visit ___ General Patient Visit ___ Spiritual Assessment ___ Family Conference ___ Bereavement ___ Rapid Response ___ Code Blue ___ Other (describe below) Pastoral Care Referral From _x__ Patient ___ Family ___ Nurse ___ Physician ___ Clerical Grader ___ Manager Family ___ Other (describe below) Sacrament/Intervention ___ Active listening ___ Anointing ___ Tenriism ___ Bereavement ___ Communion ___ Estefany exploration ___ ___ Life review _x__ Prayer ___ Reconciliation ___ Sacrament of Sick _x__ Supportive presence ___ Wedding ___ Other (describe below) Pastoral Comments patient is easily awakened to his name but he has difficulty staying awake during the visit; pt repeatedly tried to focus but often shut his eyes; pt did answer questions about how he has been managing and how he has been dealing with life and health; pt could not think of any needs other than health; pt welcomed a prayer
--- NOTE | 2023-12-26 13:20 | PN.HOSP_ITS ---
Reason for Visit Reason for Visit: Diagnoses Sepsis, unspecified organism (12/25/23) Morbid (severe) obesity due to excess calories (12/25/23) Metabolic encephalopathy (12/25/23) Unspecified atrial fibrillation (12/25/23) Venous insufficiency (chronic) (peripheral) (12/25/23) Cellulitis of right lower limb (12/25/23) Cellulitis, unspecified (12/25/23) Panniculitis, unspecified (12/25/23) Severe sepsis without septic shock (12/25/23) Unspecified open wound, right lower leg, initial encounter (12/25/23) Body mass index [BMI] 40.0-44.9, adult (12/25/23) Personal history of transient ischemic attack (TIA), and cerebral infarction without residual deficits (12/25/23) Subjective Subjective Complaining of pain in his legs. Wanting the loos lymphedema wraps taken off. Objective Data Objective Data Vital Signs: Vital Signs Temp Pulse Resp BP Pulse Ox O2 Del Method 38.1 C H 89 18 121/62 H 95 Room Air 12/26/23 10:19 12/26/23 10:19 12/26/23 10:19 12/26/23 10:19 12/26/23 10:19 12/26/23 10:19 Oxygen Delivery Method Room Air Weight: 121.7 kg Body Mass Index (BMI) 43.2 Intake & Output: Intake and Output for Last 24 Hours 12/24/23 12/25/23 12/26/23 23:59 23:59 23:59 Intake Total 1112 / 1112 4182.8 / 4182.8 Output Total 100 / 100 Balance 1112 / 1112 4082.8 / 4082.8 Lab / Micro Data 12/25/23 19:20 12/25/23 19:24 Labs: Laboratory Results - last 24 hr 12/25/23 17:47: Urine Color Yellow, Urine Clarity Clear, Urine pH 5.0, Ur Specific [place] 1.010, Urine Protein Negative, Urine Glucose (UA) Normal, Urine Ketones Negative, Urine Occult Blood 10 H, Urine Nitrite Negative, Urine Bilirubin Negative, Urine Urobilinogen Normal, Ur Leukocyte Esterase 100 H, Urine RBC 0 SEEN, Urine WBC 0-5 SEEN, Ur Squamous Epith Cells 0 SEEN, Urine Bacteria 0 SEEN, Urine Mucus 0 SEEN 12/25/23 19:20: WBC 21.1 H, RBC 4.73, Hgb 14.4, Hct 44.2, MCV 93.4, MCH 30.4, MCHC 32.6, RDW Std Deviation 48.5 H, RDW Coeff of Naz 14.1, Plt Count 237, MPV 10.0, Immature Gran % (Auto) 0.800, Neut % (Auto) 91.8 H, Lymph % (Auto) 2.2 L, [place] % (Auto) 4.1, Eos % (Auto) 0.9, Baso % (Auto) 0.2, Absolute Neuts (auto) 19.3 H, Absolute Lymphs (auto) 0.47 L, Nucleated RBC % 0 12/25/23 19:24: PT 17.7 H, INR 1.5, APTT 43.6 H, Sodium 138, Potassium 3.7, Chloride 101, Carbon Dioxide 30.0, Anion Gap 7, BUN 17, Creatinine 1.19, Estim Creat Clear Calc 67.54, Est GFR (MDRD) Af Amer 77, Est GFR (MDRD) Non-Af 64, BUN/Creatinine Ratio 14.3, Glucose 143 H, Lactic Acid 1.6, Calcium 9.2, Total Bilirubin 1.00, AST 18, ALT 29, Alkaline Phosphatase 119 H, Total Protein 8.3 H, Albumin 3.3, Globulin 5.0 H, Albumin/Globulin Ratio 0.7 L Micro: Microbiology 12/25/23 21:41 Wound - Leg, Left Gram Stain - Final 12/25/23 21:41 Wound - Leg, Left Wound Culture - Preliminary Mixed Gram Pos & Gram Neg Org 12/25/23 18:26 Mucosa - Nose SARS-CoV-2, Influenza & RSV (PCR) - Final Radiography Diagnostic Testing: Radiology Impression Chest X-Ray 12/25/23 20:00 IMPRESSION: Mild interstitial prominence. Electronically Signed: Jamar Edmonds DO at 20:11 EDT Reading Location ID and State: [facility] / [place] Tel [phone], Service support , Lower Extremity CT 12/25/23 22:52 IMPRESSION: Cellulitis. Electronically Signed: Corona Clarke MD at 0:06 EDT , Physical Exam Const Constitutional Narrative: dozing off during encounter (when I called him out about it, he said he was looking down {clearly is closed}) Orientation / Consciousness: confused Resp normal respiratory effort, no retractions, no use of accessory muscles and clear to auscultation bilaterally Extremity Extremity Narrative: Right lower extremity more swollen than his left. Lymphedema wraps in place, did not remove. Reviewed picture from wound nurse and patient had lymphedema changes to his leg, ulceration on the dorsum of his right great toe. Superficial ulceration on the left lateral leg. Assessment & Plan Assessment/Plan (1) Leg wound, right: QUALIFIERS: Encounter type: initial encounter Qualified Code(s): S81.801A - Unspecified open wound, right lower leg, initial encounter (2) Cellulitis: QUALIFIERS: Laterality: right Site of cellulitis: extremity Site of cellulitis of extremity: lower extremity Qualified Code(s): L03.115 - Cellulitis of right lower limb (3) Sepsis: QUALIFIERS: Sepsis acute organ dysfunction status: with acute organ dysfunction Sepsis type: sepsis due to unspecified organism Severe sepsis acute organ dysfunction type: encephalopathy Severe sepsis shock status: without septic shock Qualified Code(s): A41.9 - Sepsis, unspecified organism; R65.20 - Severe sepsis without septic shock; G93.41 - Metabolic encephalopathy (4) Metabolic encephalopathy: (5) History of CVA (cerebrovascular accident): (6) Atrial fibrillation: QUALIFIERS: Atrial fibrillation type: unspecified Qualified Code(s): I48.91 - Unspecified atrial fibrillation (7) Morbid obesity with BMI of 40.0-44.9, adult: (8) Lipodermatosclerosis of both lower extremities: (9) Venous insufficiency (chronic) (peripheral): PLAN: Plan RLE Cellulitis due to Acute Worsening of Chronic RLE Wound * Antibiotic with Vanco and pip-tazo * Follow-up cultures. Wound culture showing mixed gram-positive and gram- negative. * Wound consult * Leg CT showed cellulitis. No evidence of any abscess formation. Sepsis * Present on admission. qSOFA score of 2 with encephalopathy and a respiratory rate of 23. And SIRS 4/4. * Secondary to the underlying cellulitis. Acute metabolic encephalopathy * Secondary to underlying infection, sepsis and patient with a known history of stroke. Avoid potentiating medications. Will discontinue the gabapentin. Patient did receive morphine which I will discontinue. Patient has pain and will increase his acetaminophen to 1000 mg 3 times daily. He has an adverse reaction to ibuprofen where he gets nauseated. Chronic conditions * Chronic Atrial Fibrillation: Rate controlled. Not on rate limiting medications. Anticoagulation with rivaroxaban. * Obesity class III: Complicates care and recovery. * Chronic Venous Stasis with Chronic Venous Insufficiency and Lipodermatosclerosis of both LE's compounding venous stasis ulcer. * Essential hypertension - Hold scheduled antihypertensives until infection outlined above has been neutralized. Controlled for now. * Hyperlipidemia -continue statin * History of CAD; s/p stent (2010). Not on aspirin. VTE prophylaxis not indicated as patient is already on rivaroxaban. Discussed with family at bedside. Charges/Coding Procedures Hospitalists Procedures: Other Procedure - See Report (Nonbillable rounding as patient was admitted after midnight.)
[2023-12-26] MEDS: Acetaminophen 500 MG Tablet 1000 MG PO (18:29)
[2023-12-26] MEDS: Rivaroxaban 20 MG Tablet PO (18:29)
[2023-12-26] MEDS: Furosemide 40 MG/4 ML Vial IV (18:30)
[2023-12-26] MEDS: oxyCODONE 5 MG Tablet PO (20:39)
[2023-12-26] MEDS: Atorvastatin Calcium 40 MG Tablet PO (20:39)
[2023-12-27 04:00] VITALS: BP 138/78; PULSE 86; RESP 17; TEMP 36.8; O2SAT 99
[2023-12-27 04:47] VITALS: BP 138/78; PULSE 86; RESP 17; TEMP 36.8; O2SAT 99
[2023-12-27] MEDS: Gabapentin 300 MG Capsule PO ×3 (05:40→22:25)
[2023-12-27] MEDS: Piperacil/Tazobactam 3.375 GM in 0.9% Normal Saline (50mL MB+) 50 ML IV ×3 (05:40→21:13)
[2023-12-27] MEDS: Acetaminophen 500 MG Tablet 1000 MG PO ×3 (05:40→22:25)
[2023-12-27 06:01] LABS: Absolute Lymphocyte Count 0.77 X10^3/uL (0.83-4.51); Absolute Neutrophil Count 8.3 X10^3/uL (2.0-7.7); Basophil# 0.02 X10^3/uL; Basophil% 0.2 % (0-1); Eosinophil# 0.41 X10^3/uL; Hematocrit 38.8 % (40-54); Hemoglobin 12.6 g/dL (13.0-16.5); Lymphocyte # 0.77 X10^3/ul (0.83-4.51); Lymphocyte % 7.5 % (19-41); Mean Corp Hgb Conc 32.5 g/dL (32-36); Mean Corpuscular Hgb 30.9 pg (27.0-32.0); Mean Corpuscular Volume 95.1 fL (80-94); Mean Platelet Vol. 9.8 fl (6.2-12.0); Monocyte# 0.61 X10^3/uL; NRBC Flagged by Analyzer 0 % (0-5); Neutrophil # 8.33 X10^3/uL (2.7-7.7); Neutrophil % 81.5 % (47-70); Platelet Count 148 K/mm3 (150-450); RBC Distribution Width CV 14.6 % (11.6-14.6); RBC Distribution Width SD 50.9 fl (35.1-43.9); Red Blood Count 4.08 M/mm3 (4.6-6.2); White Blood Count 10.2 K/mm3 (4.4-11.0)
[2023-12-27 06:32] LABS: Anion Gap 6 (5-15); BUN 14 mg/dL (7-18); BUN/Creat Ratio 13.1 RATIO (10-20); Calcium,Total 7.9 mg/dL (8.5-10.1); Chloride 108 mmol/L (98-107); Creatinine, Serum 1.07 mg/dL (0.70-1.30); EST Glomerular Filtration Rate 72 mL/min (>60); Est Glom Filt Rate - Afr Amer 87 mL/min (>60); Glucose 102 mg/dL (74-106); Potassium 3.2 mmol/L (3.5-5.1); Sodium Level 138 mmol/L (136-145)
--- NOTE | 2023-12-27 07:16 | NS ---
12/27/23: Changed pt's diet to Regular RODOLFO. Per kitchen staff, pt was upset yesterday afternoon about being put on a Cardiac diet. Stated that if he couldn't have mal[place] cheese then he wouldn't eat anything. Mercedez Malin RDN, LD
[2023-12-27 08:16] VITALS: BP 133/80; PULSE 62; RESP 15; TEMP 37.1; O2SAT 95
[2023-12-27] MEDS: Lactobacillis Acidophilus 1 CAP PO ×2 (08:27→22:25)
[2023-12-27] MEDS: oxyCODONE 5 MG Tablet PO (08:27)
--- NOTE | 2023-12-27 09:04 | PN.HOSP_ITS ---
Reason for Visit Reason for Visit: Diagnoses Sepsis, unspecified organism (12/25/23) Morbid (severe) obesity due to excess calories (12/25/23) Metabolic encephalopathy (12/25/23) Unspecified atrial fibrillation (12/25/23) Venous insufficiency (chronic) (peripheral) (12/25/23) Cellulitis of right lower limb (12/25/23) Cellulitis, unspecified (12/25/23) Panniculitis, unspecified (12/25/23) Severe sepsis without septic shock (12/25/23) Unspecified open wound, right lower leg, initial encounter (12/25/23) Body mass index [BMI] 40.0-44.9, adult (12/25/23) Personal history of transient ischemic attack (TIA), and cerebral infarction without residual deficits (12/25/23) Objective Data Objective Data Vital Signs: Vital Signs Temp Pulse Resp BP Pulse Ox O2 Del Method 37.1 C 62 15 133/80 H 95 Room Air 12/27/23 08:16 12/27/23 08:16 12/27/23 08:16 12/27/23 08:16 12/27/23 08:16 12/27/23 08:22 Oxygen Delivery Method Room Air Weight: 121.7 kg Body Mass Index (BMI) 43.2 Intake & Output: Intake and Output for Last 24 Hours 12/25/23 12/26/23 12/27/23 23:59 23:59 23:59 Intake Total 1112 / 1112 6162.8 / 6522.8 530 / 530 Output Total 525 / 2275 2350 / 2350 Balance 1112 / 1112 5637.8 / 4247.8 -1820 / -1820 Lab / Micro Data 12/27/23 05:14 12/27/23 05:14 Labs: Laboratory Results - last 24 hr 12/27/23 05:14: WBC 10.2, RBC 4.08 L, Hgb 12.6 L, Hct 38.8 L, MCV 95.1 H, MCH 30.9, MCHC 32.5, RDW Std Deviation 50.9 H, RDW Coeff of Naz 14.6, Plt Count 148 L, MPV 9.8, Immature Gran % (Auto) 0.800, Neut % (Auto) 81.5 H, Lymph % (Auto) 7.5 L, [place] % (Auto) 6.0, Eos % (Auto) 4.0, Baso % (Auto) 0.2, Absolute Neuts (auto) 8.3 H, Absolute Lymphs (auto) 0.77 L, Nucleated RBC % 0, Sodium 138, P otassium 3.2 L, Chloride 108 H, Carbon Dioxide 24.0, Anion Gap 6, BUN 14, Creatinine 1.07, Estim Creat Clear Calc 74.50, Est GFR (MDRD) Af Amer 87, Est GFR (MDRD) Non-Af 72, BUN/Creatinine Ratio 13.1, Glucose 102, Calcium 7.9 L Micro: Microbiology 12/26/23 20:46 Nasal Secretion MRSA (PCR) - Final 12/25/23 21:41 Wound - Leg, Left Gram Stain - Final 12/25/23 21:41 Wound - Leg, Left Wound Culture - Preliminary Mixed Gram Pos & Gram Neg Org 12/25/23 18:26 Mucosa - Nose SARS-CoV-2, Influenza & RSV (PCR) - Final Physical Exam Const alert and no apparent distress HEENT head/scalp atraumatic and moist oral mucous membranes Resp normal respiratory effort and no retractions GI soft to palpation, non-tender and non-distended Extremity Extremity Narrative: Bilateral lower extremity edema with the left being greater than the right. Superficial venous stasis ulcerations bilaterally with more prominence on the right. Neuro Sensorium / Orientation: awake and alert Assessment & Plan Assessment/Plan (1) Leg wound, right: QUALIFIERS: Encounter type: initial encounter Qualified Code(s): S81.801A - Unspecified open wound, right lower leg, initial encounter (2) Cellulitis: QUALIFIERS: Laterality: right Site of cellulitis: extremity Site of cellulitis of extremity: lower extremity Qualified Code(s): L03.115 - Cellulitis of right lower limb (3) Sepsis: QUALIFIERS: Sepsis acute organ dysfunction status: with acute organ dysfunction Sepsis type: sepsis due to unspecified organism Severe sepsis acute organ dysfunction type: encephalopathy Severe sepsis shock status: without septic shock Qualified Code(s): A41.9 - Sepsis, unspecified organism; R65.20 - Severe sepsis without septic shock; G93.41 - Metabolic encephalopathy (4) Metabolic encephalopathy: (5) History of CVA (cerebrovascular accident): (6) Atrial fibrillation: QUALIFIERS: Atrial fibrillation type: unspecified Qualified Code(s): I48.91 - Unspecified atrial fibrillation (7) Morbid obesity with BMI of 40.0-44.9, adult: (8) Lipodermatosclerosis of both lower extremities: (9) Venous insufficiency (chronic) (peripheral): PLAN: Plan RLE Cellulitis due to Acute Worsening of Chronic RLE Wound * Appears stable. * Antibiotic with Vanco and pip-tazo * Wound culture showing mixed gram-positive and gram-negative. MRSA swab negative. * Wound consult * Leg CT showed cellulitis. No evidence of any abscess formation. COVID, influenza and RSV swab was negative. Blood cultures pending Sepsis * Present on admission. qSOFA score of 2 with encephalopathy and a respiratory rate of 23. And SIRS 4/4. * Secondary to the underlying cellulitis. Acute metabolic encephalopathy * Improved * secondary to underlying infection, sepsis and patient with a known history of stroke. Patient has pain and will increase his acetaminophen to 1000 mg 3 times daily. He has an adverse reaction to ibuprofen where he gets nauseated. IV morphine discontinued. Pt on oral oxycodone to help with pain. Anasarca * weight is up overall from August when he was 105 kg and now is at 121 kg. * Patient admitted and started on diuresis with IV furosemide. Feel that the swelling is contributing to lack of healing of his lower extremity wound. Chronic conditions * Chronic Atrial Fibrillation: Rate controlled. Not on rate limiting medications. Anticoagulation with rivaroxaban. * Obesity class III: Complicates care and recovery. * Chronic Venous Stasis with Chronic Venous Insufficiency and Lipodermatosclerosis of both LE's compounding venous stasis ulcer. * Essential hypertension - Hold scheduled antihypertensives until infection outlined above has been neutralized. Controlled for now. * Hyperlipidemia -continue statin * History of CAD; s/p stent (2010). Not on aspirin. VTE prophylaxis not indicated as patient is already on rivaroxaban. Charges/Coding Visit Charges Inpatient E&M: 64512 Subs Hosp L2
[2023-12-27 10:08] LABS: Vancomycin, Trough Level 20.5 ug/mL (5.0-15.0)
[2023-12-27] MEDS: 0.9% Saline Lock 10 ML Syringe IV (10:13)
[2023-12-27] MEDS: Furosemide 40 MG/4 ML Vial IV ×2 (10:13→18:19)
[2023-12-27] MEDS: Nystatin Powder 15gm Bottle 1 APPLIC TOPICAL ×2 (10:14→22:24)
[2023-12-27] MEDS: Menthol/Lanolin/Calamine/Znox 113 GM Tube 1 APPLIC TOPICAL ×2 (10:14→22:24)
--- NOTE | 2023-12-27 10:53 | PCM.RX.CS ---
Consult Antibiotic Management Pharmacy has been consulted to manage selected antibiotic: Vancomycin Type of Intervention Type of Consult: Follow-up Suspected Infection Suspected Infection: Skin/Soft tissue Prior Doses of Antibiotics Prior Doses of Antibiotics Received/Current Regimen: Currently on 1500mg iv q12h. Labs Labs: Sodium 138 mmol/L (136-145) 12/27/23 05:14 Potassium 3.2 mmol/L (3.5-5.1) L 12/27/23 05:14 Chloride 108 mmol/L (98-107) H 12/27/23 05:14 Carbon Dioxide 24.0 mmol/L (21.0-32.0) 12/27/23 05:14 Anion Gap 6 (5-15) 12/27/23 05:14 BUN 14 mg/dL (7-18) 12/27/23 05:14 Creatinine 1.07 mg/dL (0.70-1.30) 12/27/23 05:14 Est GFR (MDRD) Af Amer 87 mL/min (>60) 12/27/23 05:14 Est GFR (MDRD) Non-Af 72 mL/min (>60) 12/27/23 05:14 BUN/Creatinine Ratio 13.1 RATIO (10-20) 12/27/23 05:14 Glucose 102 mg/dL (74-106) 12/27/23 05:14 Vancomycin Trough 20.5 ug/mL (5.0-15.0) H 12/27/23 09:27 Microbiology Microbiology: Microbiology 12/25/23 21:41 Wound - Leg, Left Gram Stain - Final 12/25/23 21:41 Wound - Leg, Left Wound Culture - Preliminary GNR Poss Pseudomonas sp Gram negative louise 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 CrCl ~75ml/min using adjusted body weight of 86.7kg. Recommend decreasing dose to 1250mg iv q12h with new trough before 4th dose. Pharmacy Service will continue to monitor and adjust dosing as required. Follow-Up Labs Follow-Up Labs: Trough: Vancomycin (8..24 @2230)
[2023-12-27] MEDS: Vancomycin HCl 1,250 MG in 0.9% Normal Saline (250mL Bag) 250 ML 167 MG IV (11:18)
[2023-12-27 14:13] VITALS: BP 139/90; PULSE 85; RESP 16; TEMP 36.7; O2SAT 98
[2023-12-27] MEDS: Rivaroxaban 20 MG Tablet PO (18:19)
[2023-12-27 22:23] VITALS: BP 129/88; PULSE 88; RESP 16; TEMP 37; O2SAT 96
[2023-12-27] MEDS: Atorvastatin Calcium 40 MG Tablet PO (22:25)
[2023-12-28] MEDS: Vancomycin HCl 1,250 MG in 0.9% Normal Saline (250mL Bag) 250 ML 167 MG IV ×2 (01:12→11:57)
[2023-12-28 04:06] VITALS: BP 130/84; PULSE 70; RESP 16; TEMP 36.7; O2SAT 99
[2023-12-28 05:36] LABS: Absolute Lymphocyte Count 1.12 X10^3/uL (0.83-4.51); Absolute Neutrophil Count 5.7 X10^3/uL (2.0-7.7); Basophil# 0.03 X10^3/uL; Basophil% 0.4 % (0-1); Eosinophils% 8.5 % (0-5); Hematocrit 36.1 % (40-54); Hemoglobin 11.8 g/dL (13.0-16.5); Lymphocyte # 1.12 X10^3/ul (0.83-4.51); Lymphocyte % 13.7 % (19-41); Mean Corp Hgb Conc 32.7 g/dL (32-36); Mean Corpuscular Hgb 30.1 pg (27.0-32.0); Mean Corpuscular Volume 92.1 fL (80-94); Mean Platelet Vol. 10.1 fl (6.2-12.0); Monocyte# 0.66 X10^3/uL; NRBC Flagged by Analyzer 0 % (0-5); Neutrophil # 5.67 X10^3/uL (2.7-7.7); Neutrophil % 69.2 % (47-70); Platelet Count 169 K/mm3 (150-450); RBC Distribution Width CV 14.5 % (11.6-14.6); RBC Distribution Width SD 48.7 fl (35.1-43.9); Red Blood Count 3.92 M/mm3 (4.6-6.2); White Blood Count 8.2 K/mm3 (4.4-11.0)
[2023-12-28 05:48] LABS: Anion Gap 8 (5-15); BUN 18 mg/dL (7-18); BUN/Creat Ratio 17.3 RATIO (10-20); Calcium,Total 8.2 mg/dL (8.5-10.1); Chloride 105 mmol/L (98-107); Creatinine, Serum 1.04 mg/dL (0.70-1.30); EST Glomerular Filtration Rate 74 mL/min (>60); Est Glom Filt Rate - Afr Amer 90 mL/min (>60); Estimated Creatinine Clearance 76.65 ml/min; Glucose 121 mg/dL (74-106); Potassium 2.8 mmol/L (3.5-5.1); Sodium Level 140 mmol/L (136-145)
[2023-12-28] MEDS: Piperacil/Tazobactam 3.375 GM in 0.9% Normal Saline (50mL MB+) 50 ML IV ×3 (06:39→21:43)
[2023-12-28] MEDS: Acetaminophen 500 MG Tablet 1000 MG PO ×3 (06:39→21:46)
[2023-12-28] MEDS: Gabapentin 300 MG Capsule PO ×3 (06:39→21:48)
[2023-12-28] MEDS: Potassium Chloride Oral Tablet 20 MEQ 40 MEQ PO ×2 (08:50→17:16)
[2023-12-28] MEDS: Lactobacillis Acidophilus 1 CAP PO ×2 (08:51→21:44)
[2023-12-28] MEDS: Menthol/Lanolin/Calamine/Znox 113 GM Tube 1 APPLIC TOPICAL ×2 (08:52→21:45)
[2023-12-28] MEDS: Furosemide 40 MG/4 ML Vial IV ×2 (08:52→17:17)
[2023-12-28] MEDS: Nystatin Powder 15gm Bottle 1 APPLIC TOPICAL ×2 (08:52→21:45)
[2023-12-28 08:59] VITALS: BP 133/81; PULSE 81; RESP 14; TEMP 36.8; O2SAT 98
--- NOTE | 2023-12-28 09:02 | PN.HOSP_ITS ---
Reason for Visit Reason for Visit: Diagnoses Sepsis, unspecified organism (12/25/23) Morbid (severe) obesity due to excess calories (12/25/23) Metabolic encephalopathy (12/25/23) Unspecified atrial fibrillation (12/25/23) Venous insufficiency (chronic) (peripheral) (12/25/23) Cellulitis of right lower limb (12/25/23) Cellulitis, unspecified (12/25/23) Panniculitis, unspecified (12/25/23) Severe sepsis without septic shock (12/25/23) Unspecified open wound, right lower leg, initial encounter (12/25/23) Body mass index [BMI] 40.0-44.9, adult (12/25/23) Personal history of transient ischemic attack (TIA), and cerebral infarction without residual deficits (12/25/23) Subjective Subjective Still with pain but overall improving. Legs were wrapped today with Jaden wrap's and does have some pain while he is up in a chair with his legs hanging down. Objective Data Objective Data Vital Signs: Vital Signs Temp Pulse Resp BP Pulse Ox O2 Del Method 36.8 C 81 14 133/81 H 98 Room Air 12/28/23 08:59 12/28/23 08:59 12/28/23 08:59 12/28/23 08:59 12/28/23 08:59 12/28/23 08:59 Oxygen Delivery Method Room Air Weight: 121.7 kg Body Mass Index (BMI) 43.2 Intake & Output: Intake and Output for Last 24 Hours 12/26/23 12/27/23 12/28/23 23:59 23:59 23:59 Intake Total 6162.8 / 6522.8 1805 / 1805 325 / 325 Output Total 525 / 2275 3850 / 5350 1999 / 1999 Balance 5637.8 / 4247.8 -2045 / -3545 -1675 / -1675 Lab / Micro Data 12/28/23 04:35 12/28/23 04:35 Labs: Laboratory Results - last 24 hr 12/27/23 09:27: Vancomycin Trough 20.5 H 12/28/23 04:35: WBC 8.2, RBC 3.92 L, Hgb 11.8 L, Hct 36.1 L, MCV 92.1, MCH 30.1, MCHC 32.7, RDW Std Deviation 48.7 H, RDW Coeff of Naz 14.5, Plt Count 169, MPV 10.1, Immature Gran % (Auto) 0.200, Neut % (Auto) 69.2, Lymph % (Auto) 13.7 L, [place] % (Auto) 8.0, Eos % (Auto) 8.5 H, Baso % (Auto) 0.4, Absolute Neuts (auto) 5.7, Absolute Lymphs (auto) 1.12, Nucleated RBC % 0, Sodium 140, Potassium 2.8 L , Chloride 105, Carbon Dioxide 27.0, Anion Gap 8, BUN 18, Creatinine 1.04, Estim Creat Clear Calc 76.65, Est GFR (MDRD) Af Amer 90, Est GFR (MDRD) Non-Af 74, BUN/Creatinine Ratio 17.3, Glucose 121 H, Calcium 8.2 L Micro: Microbiology 12/25/23 21:41 Wound - Leg, Left Gram Stain - Final 12/25/23 21:41 Wound - Leg, Left Wound Culture - Preliminary Pseudomonas aeruginosa Gram negative louise Enterobacter cloacae complex Streptococcus group G GPC Poss Enterococcus sp 12/25/23 17:47 Urine, Clean Catch Urine Culture - Preliminary Mixed Gram Pos & Gram Neg Org Beta streptococcus 12/26/23 20:46 Nasal Secretion MRSA (PCR) - Final 12/25/23 18:26 Mucosa - Nose SARS-CoV-2, Influenza & RSV (PCR) - Final Physical Exam Const alert and no apparent distress HEENT head/scalp atraumatic and moist oral mucous membranes Resp normal respiratory effort, no retractions, no use of accessory muscles and clear to auscultation bilaterally Cardio regular rate, regular rhythm, S1 normal heart sound and S2 normal heart sound GI normal to inspection, nondistended, normoactive bowel sounds and soft to palpation Extremity Extremity Narrative: Bilateral lower extremity edema. Legs have bilateral lymphedema wraps. Neuro Sensorium / Orientation: awake and alert Assessment & Plan Assessment/Plan (1) Leg wound, right: QUALIFIERS: Encounter type: initial encounter Qualified Code(s): S81.801A - Unspecified open wound, right lower leg, initial encounter (2) Cellulitis: QUALIFIERS: Laterality: right Site of cellulitis: extremity Site of cellulitis of extremity: lower extremity Qualified Code(s): L03.115 - Cellulitis of right lower limb (3) Sepsis: QUALIFIERS: Sepsis acute organ dysfunction status: with acute organ dysfunction Sepsis type: sepsis due to unspecified organism Severe sepsis acute organ dysfunction type: encephalopathy Severe sepsis shock status: without septic shock Qualified Code(s): A41.9 - Sepsis, unspecified organism; R65.20 - Severe sepsis without septic shock; G93.41 - Metabolic encephalopathy (4) Metabolic encephalopathy: (5) History of CVA (cerebrovascular accident): (6) Atrial fibrillation: QUALIFIERS: Atrial fibrillation type: unspecified Qualified Code(s): I48.91 - Unspecified atrial fibrillation (7) Morbid obesity with BMI of 40.0-44.9, adult: (8) Lipodermatosclerosis of both lower extremities: (9) Venous insufficiency (chronic) (peripheral): PLAN: Plan RLE Cellulitis due to Acute Worsening of Chronic RLE Wound * Appears stable. * Antibiotic with Vanco and pip-tazo * Wound culture showing Pseudomonas, GNR, Group G strep, possible enterococcus, enterobacter. MRSA swab negative. * Wound consult * Leg CT showed cellulitis. No evidence of any abscess formation. COVID, influenza and RSV swab was negative. Blood cultures pending Sepsis * Present on admission. qSOFA score of 2 with encephalopathy and a respiratory rate of 23. And SIRS 4/4. * Secondary to the underlying cellulitis. Acute metabolic encephalopathy * Improved * secondary to underlying infection, sepsis and patient with a known history of stroke. Patient has pain and will increase his acetaminophen to 1000 mg 3 times daily. He has an adverse reaction to ibuprofen where he gets nauseated. IV morphine discontinued. Pt on oral oxycodone to help with pain. Anasarca * weight is up overall from August when he was 105 kg and now is at 121 kg. * Patient admitted and started on diuresis with IV furosemide. Feel that the swelling is contributing to lack of healing of his lower extremity wound. Hypokalemia * likely 2/2 diuresis * replace Chronic conditions * Chronic Atrial Fibrillation: Rate controlled. Not on rate limiting medications. Anticoagulation with rivaroxaban. * Obesity class III: Complicates care and recovery. * Chronic Venous Stasis with Chronic Venous Insufficiency and Lipodermatosclerosis of both LE's compounding venous stasis ulcer. * Essential hypertension - Hold scheduled antihypertensives until infection outlined above has been neutralized. Controlled for now. * Hyperlipidemia -continue statin * History of CAD; s/p stent (2010). Not on aspirin. VTE prophylaxis not indicated as patient is already on rivaroxaban. Charges/Coding Visit Charges Inpatient E&M: 26821 Subs Hosp L2
[2023-12-28 14:01] VITALS: BP 128/78; PULSE 87; RESP 18; TEMP 36.6; O2SAT 98
--- NOTE | 2023-12-28 14:21 | CASEMGMT ---
Discharge Planning A list of?[facility] providers including quality and resource use data and consistent with the patient's preferred geographic region, medical needs, and insurance network were printed and provided from the [facility] Guide. Mary Salcido, Discharge Planning Asst.
--- NOTE | 2023-12-28 14:31 | CASEMGMT ---
Addendum entered by Mary Salcido 12/28/23 15:03: [facility] accepted and will begin precert. SW updated. Mary Salcido DC Planning Asst. Original Note: Discharge Planning SNF list delivered to patient. He would like referrals sent as follows; 1. [facility], 2. [facility]. Referral sent via [facility] to [facility]. Mary Salcido DC Planning Asst.
--- NOTE | 2023-12-28 15:38 | CASEMGMT ---
JESSIE notified patient that [facility] accepted him. Once he is approved by insurance he can be discharged to [facility]. JESSIE asked patient if he would like to call his son. Patient said his son should be at [facility] soon. Plan: d/c to [facility] pending insurance approval. Batsheva ANTUNEZ
[2023-12-28] MEDS: Rivaroxaban 20 MG Tablet PO (17:16)
[2023-12-28] MEDS: 0.9% Saline Lock 10 ML Syringe IV (17:17)
[2023-12-28 21:39] VITALS: BP 118/74; PULSE 74; RESP 18; TEMP 36.7; O2SAT 97
[2023-12-28] MEDS: Atorvastatin Calcium 40 MG Tablet PO (21:48)
[2023-12-28 23:01] LABS: Vancomycin, Trough Level 23.8 ug/mL (5.0-15.0)
--- NOTE | 2023-12-28 23:08 | PCM.RX.CS ---
Consult Antibiotic Management Pharmacy has been consulted to manage selected antibiotic: Vancomycin Type of Intervention Type of Consult: Follow-up Suspected Infection Suspected Infection: Skin/Soft tissue Labs Labs: Sodium 140 mmol/L (136-145) 12/28/23 04:35 Potassium 2.8 mmol/L (3.5-5.1) L 12/28/23 04:35 Chloride 105 mmol/L (98-107) 12/28/23 04:35 Carbon Dioxide 27.0 mmol/L (21.0-32.0) 12/28/23 04:35 Anion Gap 8 (5-15) 12/28/23 04:35 BUN 18 mg/dL (7-18) 12/28/23 04:35 Creatinine 1.04 mg/dL (0.70-1.30) 12/28/23 04:35 Est GFR (MDRD) Af Amer 90 mL/min (>60) 12/28/23 04:35 Est GFR (MDRD) Non-Af 74 mL/min (>60) 12/28/23 04:35 BUN/Creatinine Ratio 17.3 RATIO (10-20) 12/28/23 04:35 Glucose 121 mg/dL (74-106) H 12/28/23 04:35 Vancomycin Trough 23.8 ug/mL (5.0-15.0) H 12/28/23 22:12 Microbiology Microbiology: Microbiology 12/25/23 17:47 Urine, Clean Catch Urine Culture - Final Mixed Gram Pos & Gram Neg Org Streptococcus group G 12/25/23 21:40 Blood Culture (Wb) - Anticubital Left Blood Culture - Preliminary No growth in 48 hours. 12/25/23 19:20 Blood Culture (Wb) - No Site/Description Given Blood Culture - Preliminary No growth in 48 hours. 12/25/23 21:41 Wound - Leg, Left Gram Stain - Final 12/25/23 21:41 Wound - Leg, Left Wound Culture - Preliminary Pseudomonas aeruginosa Gram negative louise Enterobacter cloacae complex Streptococcus group G GPC Poss Enterococcus sp 12/26/23 20:46 Nasal Secretion MRSA (PCR) - Final 12/25/23 18:26 Mucosa - Nose SARS-CoV-2, Influenza & RSV (PCR) - Final Dosing Weight Weight used for dosin.7 kg Estimated Creatinine Clearance Estimated Creatinine Clearance: 77 Goal Trough Goal Trough: 15-20 mcg/mL Pharmacy Plan for Drug Dosing Pharmacy Plan for Drug Dosing: Vancomycin trough level of 23.8, drawn 10.25hrs post-dose, was above the target range of 15-20. Will hold current dosing and draw a random level in 12 hours to determine further dosing. Pharmacy Service will continue to monitor and adjust dosing as required. Follow-Up Labs Follow-Up Labs: Trough: Vancomycin (random) Date/Time Labs Ordered Labs to be done on [date and time ordered]: 12/29/23 @1030 random
[2023-12-29 03:14] VITALS: BP 118/76; PULSE 81; RESP 16; TEMP 36.6; O2SAT 97
[2023-12-29] MEDS: Acetaminophen 500 MG Tablet 1000 MG PO ×3 (05:16→21:12)
[2023-12-29] MEDS: Piperacil/Tazobactam 3.375 GM in 0.9% Normal Saline (50mL MB+) 50 ML IV (05:17)
[2023-12-29] MEDS: Gabapentin 300 MG Capsule PO ×3 (05:17→21:12)
[2023-12-29] MEDS: Potassium Chloride Oral Tablet 20 MEQ 40 MEQ PO ×2 (08:21→16:58)
[2023-12-29] MEDS: Lactobacillis Acidophilus 1 CAP PO ×2 (08:22→21:12)
[2023-12-29 09:15] VITALS: BP 120/68; PULSE 63; RESP 18; TEMP 36.7; O2SAT 96
[2023-12-29 09:46] VITALS: BP 120/68; PULSE 63; RESP 18; TEMP 36.7; O2SAT 96
--- NOTE | 2023-12-29 09:50 | PN.HOSP_ITS ---
Reason for Visit Reason for Visit: Diagnoses Sepsis, unspecified organism (12/25/23) Morbid (severe) obesity due to excess calories (12/25/23) Metabolic encephalopathy (12/25/23) Unspecified atrial fibrillation (12/25/23) Venous insufficiency (chronic) (peripheral) (12/25/23) Cellulitis of right lower limb (12/25/23) Cellulitis, unspecified (12/25/23) Panniculitis, unspecified (12/25/23) Severe sepsis without septic shock (12/25/23) Unspecified open wound, right lower leg, initial encounter (12/25/23) Body mass index [BMI] 40.0-44.9, adult (12/25/23) Personal history of transient ischemic attack (TIA), and cerebral infarction without residual deficits (12/25/23) Subjective Subjective Pain in legs doing better. Objective Data Objective Data Vital Signs: Vital Signs Temp Pulse Resp BP Pulse Ox O2 Del Method 36.7 C 63 18 120/68 96 Room Air 12/29/23 09:46 12/29/23 09:46 12/29/23 09:46 12/29/23 09:46 12/29/23 09:46 12/29/23 09:46 Oxygen Delivery Method Room Air Weight: 121.7 kg Body Mass Index (BMI) 43.2 Intake & Output: Intake and Output for Last 24 Hours 12/27/23 12/28/23 12/29/23 23:59 23:59 23:59 Intake Total 1805 / 1805 1945 / 1945 100 / 100 Output Total 3850 / 5350 5000 / 6300 1800 / 1800 Balance -2045 / -3545 -3055 / -4355 -1700 / -1700 Lab / Micro Data 12/28/23 04:35 12/29/23 10:05 Labs: Laboratory Results - last 24 hr 12/28/23 22:12: Vancomycin Trough 23.8 H Micro: Microbiology 12/25/23 17:47 Urine, Clean Catch Urine Culture - Final Mixed Gram Pos & Gram Neg Org Streptococcus group G 12/25/23 21:40 Blood Culture (Wb) - Anticubital Left Blood Culture - Preliminary No growth in 48 hours. 12/25/23 19:20 Blood Culture (Wb) - No Site/Description Given Blood Culture - Preliminary No growth in 48 hours. 12/25/23 21:41 Wound - Leg, Left Gram Stain - Final 12/25/23 21:41 Wound - Leg, Left Wound Culture - Preliminary Pseudomonas aeruginosa Gram negative louise Enterobacter cloacae complex Streptococcus group G GPC Poss Enterococcus sp 12/26/23 20:46 Nasal Secretion MRSA (PCR) - Final 12/25/23 18:26 Mucosa - Nose SARS-CoV-2, Influenza & RSV (PCR) - Final Physical Exam Const alert and no apparent distress HEENT head/scalp atraumatic and moist oral mucous membranes Resp normal respiratory effort, no retractions, no use of accessory muscles and clear to auscultation bilaterally GI non-distended Extremity Extremity Narrative: Bilateral lymphedema wraps in place. On palpation, legs not as tender as they have been in previous days. Neuro Sensorium / Orientation: awake and alert Psych affect normal Assessment & Plan Assessment/Plan (1) Leg wound, right: QUALIFIERS: Encounter type: initial encounter Qualified Code(s): S81.801A - Unspecified open wound, right lower leg, initial encounter (2) Cellulitis: QUALIFIERS: Laterality: right Site of cellulitis: extremity Site of cellulitis of extremity: lower extremity Qualified Code(s): L03.115 - Cellulitis of right lower limb (3) Sepsis: QUALIFIERS: Sepsis acute organ dysfunction status: with acute organ dysfunction Sepsis type: sepsis due to unspecified organism Severe sepsis acute organ dysfunction type: encephalopathy Severe sepsis shock status: without septic shock Qualified Code(s): A41.9 - Sepsis, unspecified organism; R65.20 - Severe sepsis without septic shock; G93.41 - Metabolic encephalopathy (4) Metabolic encephalopathy: (5) History of CVA (cerebrovascular accident): (6) Atrial fibrillation: QUALIFIERS: Atrial fibrillation type: unspecified Qualified Code(s): I48.91 - Unspecified atrial fibrillation (7) Morbid obesity with BMI of 40.0-44.9, adult: (8) Lipodermatosclerosis of both lower extremities: (9) Venous insufficiency (chronic) (peripheral): PLAN: Plan RLE Cellulitis due to Acute Worsening of Chronic RLE Wound * Appears stable. * Antibiotic with Vanco and pip-tazo, will exchange clerk to ciprofloxacin and ampicillin. * Wound culture showing Pseudomonas, GNR, Group G strep, enterococcus, enterobacter. MRSA swab negative. * Wound consult * Leg CT showed cellulitis. No evidence of any abscess formation. COVID, influenza and RSV swab was negative. Blood cultures pending Sepsis * Present on admission, subsequently resolved. qSOFA score of 2 with encephalopathy and a respiratory rate of 23. And SIRS 4/4. * Secondary to the underlying cellulitis. Acute metabolic encephalopathy * Improved * secondary to underlying infection, sepsis and patient with a known history of stroke. Patient has pain and will increase his acetaminophen to 1000 mg 3 times daily. He has an adverse reaction to ibuprofen where he gets nauseated. IV morphine discontinued. Pt on oral oxycodone to help with pain. Anasarca * weight is up overall from August when he was 105 kg and now is at 121 kg. * Patient admitted and started on diuresis with IV furosemide. Feel that the swelling is contributing to lack of healing of his lower extremity wound. * Fluid restrict Hypokalemia * likely 2/2 diuresis * replace Chronic conditions * Chronic Atrial Fibrillation: Rate controlled. Not on rate limiting medications. Anticoagulation with rivaroxaban. * Obesity class III: Complicates care and recovery. * Chronic Venous Stasis with Chronic Venous Insufficiency and Lipodermatosclerosis of both LE's compounding venous stasis ulcer. * Essential hypertension - Hold scheduled antihypertensives until infection outlined above has been neutralized. Controlled for now. * Hyperlipidemia -continue statin * History of CAD; s/p stent (2010). Not on aspirin. VTE prophylaxis not indicated as patient is already on rivaroxaban. [facility]position[facility] pending insurance authorization. Charges/Coding Visit Charges Inpatient E&M: 78453 Subs Hosp L2
[2023-12-29] MEDS: Menthol/Lanolin/Calamine/Znox 113 GM Tube 1 APPLIC TOPICAL ×2 (10:32→21:13)
[2023-12-29] MEDS: Furosemide 40 MG/4 ML Vial IV ×2 (10:32→16:58)
[2023-12-29] MEDS: Nystatin Powder 15gm Bottle 1 APPLIC TOPICAL ×2 (10:33→22:21)
[2023-12-29 10:53] LABS: Anion Gap 5 (5-15); BUN 14 mg/dL (7-18); BUN/Creat Ratio 12.5 RATIO (10-20); Calcium,Total 8.8 mg/dL (8.5-10.1); Chloride 107 mmol/L (98-107); Creatinine, Serum 1.12 mg/dL (0.70-1.30); EST Glomerular Filtration Rate 68 mL/min (>60); Est Glom Filt Rate - Afr Amer 82 mL/min (>60); Estimated Creatinine Clearance 71.17 ml/min; Glucose 133 mg/dL (74-106); Sodium Level 141 mmol/L (136-145)
[2023-12-29 11:00] LABS: Vancomycin, Random Level 16.5 ug/mL (0.0-15.0)
[2023-12-29] MEDS: oxyCODONE 5 MG Tablet PO ×2 (13:23→21:13)
[2023-12-29] MEDS: Ampicillin/Sulbactam 3 GM in 0.9% Normal Saline (100mL MB+) 100 ML IV ×2 (14:01→21:13)
[2023-12-29] MEDS: 0.9% Saline Lock 10 ML Syringe IV ×2 (14:01→16:58)
[2023-12-29 15:00] VITALS: BP 134/94; PULSE 77; RESP 18; TEMP 36.8; O2SAT 98
[2023-12-29 15:18] VITALS: BP 134/94; PULSE 18; RESP 18; TEMP 36.8; O2SAT 98
[2023-12-29] MEDS: Rivaroxaban 20 MG Tablet PO (16:59)
[2023-12-29] MEDS: Atorvastatin Calcium 40 MG Tablet PO (21:12)
[2023-12-29 21:15] VITALS: BP 129/90; PULSE 86; RESP 18; TEMP 36.7; O2SAT 100; O2SAT 99
[2023-12-29] MEDS: Ciprofloxacin 200 MG/100 ML BAG 100 MG IV (22:21)
[2023-12-30] MEDS: oxyCODONE 5 MG Tablet PO ×3 (02:25→14:07)
[2023-12-30 03:15] VITALS: BP 118/81; PULSE 74; RESP 18; TEMP 36.4; O2SAT 96
[2023-12-30 04:00] VITALS: BMI 42.7
[2023-12-30 05:22] LABS: Anion Gap 6 (5-15); BUN 13 mg/dL (7-18); Calcium,Total 8.8 mg/dL (8.5-10.1); Chloride 106 mmol/L (98-107); Creatinine, Serum 0.93 mg/dL (0.70-1.30); EST Glomerular Filtration Rate 85 mL/min (>60); Est Glom Filt Rate - Afr Amer 103 mL/min (>60); Estimated Creatinine Clearance 85.16 ml/min; Glucose 99 mg/dL (74-106); Potassium 3.3 mmol/L (3.5-5.1); Sodium Level 140 mmol/L (136-145)
[2023-12-30] MEDS: Ampicillin/Sulbactam 3 GM in 0.9% Normal Saline (100mL MB+) 100 ML IV ×2 (05:39→14:18)
[2023-12-30] MEDS: Acetaminophen 500 MG Tablet 1000 MG PO ×3 (05:39→21:52)
[2023-12-30] MEDS: Gabapentin 300 MG Capsule PO ×3 (05:39→21:51)
[2023-12-30] MEDS: 0.9% Saline Lock 10 ML Syringe IV ×4 (05:40→18:18)
[2023-12-30] MEDS: Furosemide 40 MG/4 ML Vial IV ×2 (08:33→18:17)
[2023-12-30] MEDS: Nystatin Powder 15gm Bottle 1 APPLIC TOPICAL ×2 (08:34→21:52)
[2023-12-30] MEDS: Lactobacillis Acidophilus 1 CAP PO ×2 (08:34→21:51)
[2023-12-30] MEDS: Potassium Chloride Oral Tablet 20 MEQ 40 MEQ PO ×2 (08:34→17:21)
[2023-12-30] MEDS: Menthol/Lanolin/Calamine/Znox 113 GM Tube 1 APPLIC TOPICAL ×2 (08:35→21:52)
[2023-12-30] MEDS: Ciprofloxacin 200 MG/100 ML BAG 100 MG IV (08:35)
--- NOTE | 2023-12-30 09:05 | PN.HOSP_ITS ---
Reason for Visit Reason for Visit: Diagnoses Sepsis, unspecified organism (12/25/23) Morbid (severe) obesity due to excess calories (12/25/23) Metabolic encephalopathy (12/25/23) Unspecified atrial fibrillation (12/25/23) Venous insufficiency (chronic) (peripheral) (12/25/23) Cellulitis of right lower limb (12/25/23) Cellulitis, unspecified (12/25/23) Panniculitis, unspecified (12/25/23) Severe sepsis without septic shock (12/25/23) Unspecified open wound, right lower leg, initial encounter (12/25/23) Body mass index [BMI] 40.0-44.9, adult (12/25/23) Personal history of transient ischemic attack (TIA), and cerebral infarction without residual deficits (12/25/23) Subjective Subjective Feeling well. Objective Data Objective Data Vital Signs: Vital Signs Temp Pulse Resp BP Pulse Ox O2 Del Method 36.4 C L 74 18 118/81 H 96 Room Air 12/30/23 03:15 12/30/23 03:15 12/30/23 03:15 12/30/23 03:15 12/30/23 03:15 12/30/23 03:15 Oxygen Delivery Method Room Air Weight: 120.3 kg Body Mass Index (BMI) 42.7 Intake & Output: Intake and Output for Last 24 Hours 12/28/23 12/29/23 12/30/23 23:59 23:59 23:59 Intake Total 1945 / 1945 1744 / 1744 232 / 232 Output Total 5000 / 6300 4450 / 4450 450 / 450 Balance -3055 / -4355 -2706 / -2706 -218 / -218 Lab / Micro Data 12/28/23 04:35 12/30/23 03:56 Labs: Laboratory Results - last 24 hr 12/29/23 10:05: Sodium 141, Potassium 3.0 L, Chloride 107, Carbon Dioxide 29.0, Anion Gap 5, BUN 14, Creatinine 1.12, Estim Creat Clear Calc 71.17, Est GFR (MDRD) Af Amer 82, Est GFR (MDRD) Non-Af 68, BUN/Creatinine Ratio 12.5, Glucose 133 H, Calcium 8.8, Random Vancomycin 16.5 H 12/30/23 03:56: Sodium 140, Potassium 3.3 L, Chloride 106, Carbon Dioxide 28.0, Anion Gap 6, BUN 13, Creatinine 0.93, Estim Creat Clear Calc 85.16, Est GFR (MDRD) Af Amer 103, Est GFR (MDRD) Non-Af 85, BUN/Creatinine Ratio 14.0, Glucose 99, Calcium 8.8 Micro: Microbiology 12/25/23 21:41 Wound - Leg, Left Gram Stain - Final 12/25/23 21:41 Wound - Leg, Left Wound Culture - Preliminary Pseudomonas aeruginosa Serratia marcescens Enterobacter cloacae complex Streptococcus group G Enterococcus faecalis Gram positive organism 12/25/23 17:47 Urine, Clean Catch Urine Culture - Final Mixed Gram Pos & Gram Neg Org Streptococcus group G 12/25/23 21:40 Blood Culture (Wb) - Anticubital Left Blood Culture - Preliminary No growth in 48 hours. 12/25/23 19:20 Blood Culture (Wb) - No Site/Description Given Blood Culture - Preliminary No growth in 48 hours. 12/26/23 20:46 Nasal Secretion MRSA (PCR) - Final 12/25/23 18:26 Mucosa - Nose SARS-CoV-2, Influenza & RSV (PCR) - Final Physical Exam Const alert and average body habitus HEENT head/scalp atraumatic and moist oral mucous membranes Resp normal respiratory effort, no retractions, no use of accessory muscles and clear to auscultation bilaterally Cardio regular rate, regular rhythm, S1 normal heart sound and S2 normal heart sound GI normal to inspection, nondistended, normoactive bowel sounds and soft to palpation Extremity Extremity Narrative: Bilateral lower extremity edema. Neuro Sensorium / Orientation: awake and alert Assessment & Plan Assessment/Plan (1) Leg wound, right: QUALIFIERS: Encounter type: initial encounter Qualified Code(s): S81.801A - Unspecified open wound, right lower leg, initial encounter (2) Cellulitis: QUALIFIERS: Laterality: right Site of cellulitis: extremity Site of cellulitis of extremity: lower extremity Qualified Code(s): L03.115 - Cellulitis of right lower limb (3) Sepsis: QUALIFIERS: Sepsis acute organ dysfunction status: with acute organ dysfunction Sepsis type: sepsis due to unspecified organism Severe sepsis acute organ dysfunction type: encephalopathy Severe sepsis shock status: without septic shock Qualified Code(s): A41.9 - Sepsis, unspecified organism; R65.20 - Severe sepsis without septic shock; G93.41 - Metabolic encephalopathy (4) Metabolic encephalopathy: (5) History of CVA (cerebrovascular accident): (6) Atrial fibrillation: QUALIFIERS: Atrial fibrillation type: unspecified Qualified Code(s): I48.91 - Unspecified atrial fibrillation (7) Morbid obesity with BMI of 40.0-44.9, adult: (8) Lipodermatosclerosis of both lower extremities: (9) Venous insufficiency (chronic) (peripheral): PLAN: Plan RLE Cellulitis due to Acute Worsening of Chronic RLE Wound * Appears stable. * Antibiotic with Vanco and pip-tazo, will change booth attendant to ciprofloxacin and ampicillin. Patient having difficulty with IV acAnd treat through 01/01 (could be changed to amoxicillin and PO cipro if discharged before then) * Wound culture showing Pseudomonas, GNR, Group G strep, enterococcus, enterobacter. MRSA swab negative. * Wound consult * Leg CT showed cellulitis. No evidence of any abscess formation. Sepsis * Present on admission and subsequently resolved. (qSOFA score of 2 with encephalopathy and a respiratory rate of 23. And SIRS 4/4.). Secondary to the underlying cellulitis. * COVID, influenza and RSV swab was negative. Blood cultures negative. Acute metabolic encephalopathy * Resolved * secondary to underlying infection, sepsis and patient with a known history of stroke. * No additional work up Anasarca * weight is up overall from August when he was 105 kg and now is at 120 kg. * I feel that the swelling is contributing to lack of healing of his lower extremity wound. * Continue with IV furosemide. * Fluid restrict, daily weights Hypokalemia * likely 2/2 diuresis * continue potassium replacement Chronic conditions * Chronic Atrial Fibrillation: Rate controlled. Not on rate limiting medications. Anticoagulation with rivaroxaban. * Obesity class III: Complicates care and recovery. * Chronic Venous Stasis with Chronic Venous Insufficiency and Lipodermatosclerosis of both LE's compounding venous stasis ulcer. * Essential hypertension - Hold scheduled antihypertensives until infection outlined above has been neutralized. Controlled for now. * Hyperlipidemia -continue statin * History of CAD; s/p stent (2010). Not on aspirin. VTE prophylaxis not indicated as patient is already on rivaroxaban. Disposition: Plan for alf facility pending insurance authorization. Even though patient is receiving IV abx and IV furosemide, those could be change to oral upon discharge, patient is medically stable for discharge. Charges/Coding Visit Charges Inpatient E&M: 26089 Subs Hosp L2
[2023-12-30 10:15] VITALS: BP 98/66; PULSE 73; RESP 18; TEMP 37; O2SAT 97
[2023-12-30 17:00] VITALS: BP 127/82; PULSE 67; RESP 16; RESP 18; TEMP 36.8; O2SAT 96; O2SAT 97
[2023-12-30] MEDS: Rivaroxaban 20 MG Tablet PO (17:21)
[2023-12-30 21:48] VITALS: BP 122/80; PULSE 65; RESP 16; TEMP 36.8; O2SAT 96
[2023-12-30] MEDS: Atorvastatin Calcium 40 MG Tablet PO (21:51)
[2023-12-30] MEDS: Ciprofloxacin 500 MG Tablet PO (21:52)
[2023-12-30] MEDS: AMOXICILLIN 500 MG CAPSULE PO (21:52)
[2023-12-31 04:00] VITALS: BP 131/69; PULSE 70; RESP 18; TEMP 36.7; O2SAT 95
[2023-12-31 04:28] VITALS: BMI 42.2
[2023-12-31] MEDS: AMOXICILLIN 500 MG CAPSULE PO ×2 (05:29→14:16)
[2023-12-31] MEDS: Acetaminophen 500 MG Tablet 1000 MG PO ×3 (05:29→22:13)
[2023-12-31] MEDS: Gabapentin 300 MG Capsule PO ×3 (05:29→22:13)
[2023-12-31 05:41] LABS: Absolute Lymphocyte Count 1.63 X10^3/uL (0.83-4.51); Absolute Neutrophil Count 5.3 X10^3/uL (2.0-7.7); Basophil# 0.05 X10^3/uL; Basophil% 0.6 % (0-1); Eosinophil# 0.51 X10^3/uL; Eosinophils% 6.3 % (0-5); Hematocrit 39.3 % (40-54); Hemoglobin 12.8 g/dL (13.0-16.5); Lymphocyte # 1.63 X10^3/ul (0.83-4.51); Lymphocyte % 20.1 % (19-41); Mean Corp Hgb Conc 32.6 g/dL (32-36); Mean Corpuscular Hgb 30.8 pg (27.0-32.0); Mean Corpuscular Volume 94.5 fL (80-94); Mean Platelet Vol. 9.8 fl (6.2-12.0); Monocyte# 0.53 X10^3/uL; Monocyte% 6.5 % (0-10); NRBC Flagged by Analyzer 0 % (0-5); Neutrophil # 5.34 X10^3/uL (2.7-7.7); Neutrophil % 65.8 % (47-70); Platelet Count 220 K/mm3 (150-450); RBC Distribution Width CV 14.4 % (11.6-14.6); RBC Distribution Width SD 49.2 fl (35.1-43.9); Red Blood Count 4.16 M/mm3 (4.6-6.2); White Blood Count 8.1 K/mm3 (4.4-11.0)
[2023-12-31 06:05] LABS: Anion Gap 5 (5-15); BUN 19 mg/dL (7-18); BUN/Creat Ratio 19.9 RATIO (10-20); Chloride 105 mmol/L (98-107); Creatinine, Serum 0.95 mg/dL (0.70-1.30); EST Glomerular Filtration Rate 82 mL/min (>60); Est Glom Filt Rate - Afr Amer 99 mL/min (>60); Estimated Creatinine Clearance 82.75 ml/min; Glucose 114 mg/dL (74-106); Potassium 3.6 mmol/L (3.5-5.1); Sodium Level 139 mmol/L (136-145)
[2023-12-31] MEDS: Lactobacillis Acidophilus 1 CAP PO ×2 (09:10→22:16)
[2023-12-31] MEDS: Potassium Chloride Oral Tablet 20 MEQ 40 MEQ PO ×2 (09:10→17:17)
[2023-12-31] MEDS: Ciprofloxacin 500 MG Tablet PO (09:11)
[2023-12-31 10:00] VITALS: BP 120/82; PULSE 63; RESP 16; TEMP 36.9; O2SAT 97
[2023-12-31] MEDS: Furosemide 40 MG/4 ML Vial IV ×2 (10:06→17:18)
[2023-12-31] MEDS: Losartan Potassium 50 MG Tablet 125 MG PO (10:07)
[2023-12-31] MEDS: Menthol/Lanolin/Calamine/Znox 113 GM Tube 1 APPLIC TOPICAL ×2 (10:08→22:11)
[2023-12-31] MEDS: Nystatin Powder 15gm Bottle 1 APPLIC TOPICAL ×2 (10:08→22:09)
[2023-12-31] MEDS: 0.9% Saline Lock 10 ML Syringe IV ×3 (10:08→23:05)
[2023-12-31 14:00] VITALS: BP 120/82; PULSE 63; RESP 16; TEMP 36.9; O2SAT 97
[2023-12-31] MEDS: oxyCODONE 5 MG Tablet PO (14:16)
--- NOTE | 2023-12-31 15:37 | PCM.PN.HOSP ---
Reason for Visit Reason for Visit: Fever/altered mental status Subjective Subjective Mr. Roberson is a 73-year-old white male who presented to the emergency department at [facility] on 12/25/2023 with fever and confusion along with an acutely worsening right lower extremity wound that has been a chronic problem. It is documented that his son reported symptoms began a couple days prior to presentation when he turned the thermostat up in his room because he was feeling cold despite high summer temperatures. The patient then on the day of presentation developed an abrupt onset burning and sharp pain in his right leg followed by a fever that went up to 102 degrees at home that was associated with acute confusion. His son also reported poor wound healing despite frequent dressing changes. Patient also had some nausea with bilious emesis and decreased p.o. intake. He was given Tylenol at home and his symptoms were improving some but given his symptoms his son decided to have him evaluated in the emergency department. Vital signs on presentation showed a temperature of 101.8, heart rate 115, respiratory rate was 25, blood pressure was 143/76 and pulse ox was 98% on room air. CBC showed a leukocytosis with a white count of 21.1 and a left shift having an 91.8% neutrophilia. Coags were elevated as expected due to his chronic Xarelto use. Chemistry showed normal electrolytes, renal function with a serum glucose of 143 and a lactate of 1.6. Chest x-ray showed some mild interstitial prominence and lower extremity CT demonstrated findings consistent with cellulitis including extensive subcutaneous fat stranding in the right lower leg. No fluid collection or abscess was noted. Given the fact he was in A-fib with RVR on presentation he was admitted to telemetry and placed on broad-spectrum antibiotics with vancomycin and Zosyn. Cultures were obtained after antibiotics were started. He is clinically slowly improving since that point in time however it has been deemed that the care at home is going to be more than can be provided so placement is pending and [facility] pending. Patient denies any acute issues today. States he is not having any significant pain. Upon my entering the room he is eating a pizza and wings that his son brought him. I highly suspect he is not compliant with his diet at baseline. Objective Data Objective Data Vital Signs: Vital Signs Temp Pulse Resp BP Pulse Ox O2 Del Method 98.5 F 63 16 120/82 H 97 Room Air 12/31/23 14:00 12/31/23 14:00 12/31/23 14:00 12/31/23 14:00 12/31/23 14:00 12/31/23 14:00 Oxygen Delivery Method Room Air Weight: 118.7 kg Body Mass Index (BMI) 42.2 Intake & Output: Intake and Output for Last 24 Hours 12/29/23 12/30/23 12/31/23 23:59 23:59 23:59 Intake Total 1744 / 1744 1220.67 / 1220.67 540 / 540 Output Total 4450 / 4450 2450 / 2450 1650 / 1650 Balance -2706 / -2706 -1229.33 / -1229.33 -1110 / -1110 Lab / Micro Data 12/31/23 04:13 12/31/23 04:13 Labs: Laboratory Results - last 24 hr 12/31/23 04:13: WBC 8.1, RBC 4.16 L, Hgb 12.8 L, Hct 39.3 L, MCV 94.5 H, MCH 30.8, MCHC 32.6, RDW Std Deviation 49.2 H, RDW Coeff of Naz 14.4, Plt Count 220, MPV 9.8, Immature Gran % (Auto) 0.700, Neut % (Auto) 65.8, Lymph % (Auto) 20.1, Taliaferro % (Auto) 6.5, Eos % (Auto) 6.3 H, Baso % (Auto) 0.6, Absolute Neuts (auto) 5.3, Absolute Lymphs (auto) 1.63, Nucleated RBC % 0, Sodium 139, Potassium 3.6, Chloride 105, Carbon Dioxide 29.0, Anion Gap 5, BUN 19 H, Creatinine 0.95, Estim Creat Clear Calc 82.75, Est GFR (MDRD) Af Amer 99, Est GFR (MDRD) Non-Af 82, BUN/Creatinine Ratio 19.9, Glucose 114 H, Calcium 9.0 Micro: Microbiology 12/25/23 21:41 Wound - Leg, Left Gram Stain - Final 12/25/23 21:41 Wound - Leg, Left Wound Culture - Final Pseudomonas aeruginosa Serratia marcescens Enterobacter cloacae complex Streptococcus group G Enterococcus faecalis Meth. resistant Staph. aureus 12/25/23 19:20 Blood Culture (Wb) - No Site/Description Given Blood Culture - Final No growth in 5 days. 12/25/23 21:40 Blood Culture (Wb) - Anticubital Left Blood Culture - Final No growth in 5 days. 12/25/23 17:47 Urine, Clean Catch Urine Culture - Final Mixed Gram Pos & Gram Neg Org Streptococcus group G 12/26/23 20:46 Nasal Secretion MRSA (PCR) - Final 12/25/23 18:26 Mucosa - Nose SARS-CoV-2, Influenza & RSV (PCR) - Final Physical Exam Const alert, oriented x3, no apparent distress and well nourished; Negative for average body habitus or healthy appearing Constitutional Narrative: Morbidly obese, white male, sitting up in a chair at the bedside, son at the bedside, watching television, eating lunch, appears comfortable, does not appear toxic HEENT head/scalp atraumatic, moist oral mucous membranes and oropharynx normal HEENT Narrative: Mallampati 3, no thrush Eyes PERRL, EOMs intact bilaterally and conjunctivae normal Eyes Narrative: No scleral icterus Resp normal respiratory effort, no retractions, no use of accessory muscles and clear to auscultation bilaterally Auscultation: Negative for rales, rhonchi or wheezes Cardio regular rate, regular rhythm, S1 normal heart sound, S2 normal heart sound, no rub, no gallops and no clicks; Negative for no murmurs Cardio Narrative: 2 out of 6 systolic murmur loudest at right upper sternal border GI normal to inspection, nondistended, normoactive bowel sounds, soft to palpation and non-tender GI Narrative: Large protuberant abdomen Extremity Extremity Narrative: Lower extremities wrapped however distally changes consistent with venous stasis noted Skin Skin Narrative: Wounds are superficial and consistent with venous stasis ulcers on bilateral lower extremities in the mid tibial region, he also has a ulceration on the plantar surface of his right toe that appears unstageable and necrotic Neuro oriented x3, CN's II-XII intact bilaterally, moves all extremities and no focal motor deficits Speech: speech normal Psych Psych Narrative: Patient interacts appropriately, affect is slightly flat Assessment & Plan Assessment/Plan (1) Metabolic encephalopathy: (2) Cellulitis: QUALIFIERS: Site of cellulitis: extremity Site of cellulitis of extremity: lower extremity Laterality: right Qualified Code(s): L03.115 - Cellulitis of right lower limb (3) Atrial fibrillation: QUALIFIERS: Atrial fibrillation type: unspecified Qualified Code(s): I48.91 - Unspecified atrial fibrillation (4) Bilateral leg edema: PLAN: Plan Right lower extremity cellulitis-acute on chronic -Continue wound care -Antibiotics narrowed to ciprofloxacin and ampicillin yesterday but will need to rebroaden as MRSA has now popped up on the cultures -Continue Cipro but transition back to IV and restart vancomycin with MRSA culture popping positive -Sepsis was ruled out as patient not meet any criteria for Sep 3 guidelines and pt has a commercial Medicare insurance -no signs of end organ damage were present at admission -Cultures are polymicrobial showing Pseudomonas, Serratia, Enterobacter, group G strep, Enterococcus, and MRSA -Blood cultures are negative -Consult infectious disease to assist with discharge antibiotics -Patient will likely need outpatient wound care after discharge Right great toe wound -Antibiotics as noted -Consult podiatry for evaluation Toxic/metabolic encephalopathy -Resolved Anasarca/lower extremity edema secondary to chronic venous stasis/lipodermatosclerosis -Acute on chronic -Continue IV diuretics and transition back to oral at discharge 40 twice daily -It is clear that patient is not compliant with diet restrictions including sodium or fluids Hypokalemia -Resolved -Continue to monitor Chronic atrial fibrillation -Rate controlled but not on any rate controlling medications -Continue rivaroxaban Carotid artery stenosis -Minimal and less than 50% on most recent imaging -Continue ongoing medical management and aggressive treatment -Ongoing outpatient follow-up Right-sided hemiparesis secondary to acute stroke -Continue PT/OT -Plan is for discharge to [facility] for ongoing therapy and wound care after discharge CAD/essential HTN/HPL -Continue home atorvastatin -Continue home losartan History of GERD -Not currently on any medication History of BPH -Currently not on any medication -Watch for urinary retention History of ANDREE -Not currently compliant with CPAP -Monitor nocturnal oxygenation status Morbid obesity -BMI 42.2 -Recommend weight loss -Complicates treatment, prognosis, outcomes History of DVT -Fully anticoagulated with Xarelto Charges/Coding Visit Charges Inpatient E&M: 92260 Subs Hosp L2
[2023-12-31 16:00] VITALS: BP 141/75; PULSE 60; RESP 16; TEMP 36.7; O2SAT 96
[2023-12-31] MEDS: Rivaroxaban 20 MG Tablet PO (17:18)
[2023-12-31] MEDS: Vancomycin HCl 1,750 MG in 0.9% Normal Saline (500mL Bag) 500 ML 250 MG IV (17:56)
--- NOTE | 2023-12-31 18:33 | PCM.RX.CS ---
Consult Antibiotic Management Pharmacy has been consulted to manage selected antibiotic: Vancomycin Type of Intervention Type of Consult: New start Suspected Infection Suspected Infection: Skin/Soft tissue Labs Labs: Sodium 139 mmol/L (136-145) 12/31/23 04:13 Potassium 3.6 mmol/L (3.5-5.1) 12/31/23 04:13 Chloride 105 mmol/L (98-107) 12/31/23 04:13 Carbon Dioxide 29.0 mmol/L (21.0-32.0) 12/31/23 04:13 Anion Gap 5 (5-15) 12/31/23 04:13 BUN 19 mg/dL (7-18) H 12/31/23 04:13 Creatinine 0.95 mg/dL (0.70-1.30) 12/31/23 04:13 Est GFR (MDRD) Af Amer 99 mL/min (>60) 12/31/23 04:13 Est GFR (MDRD) Non-Af 82 mL/min (>60) 12/31/23 04:13 BUN/Creatinine Ratio 19.9 RATIO (10-20) 12/31/23 04:13 Glucose 114 mg/dL (74-106) H 12/31/23 04:13 Vancomycin Trough 23.8 ug/mL (5.0-15.0) H 12/28/23 22:12 Random Vancomycin 16.5 ug/mL (0.0-15.0) H 12/29/23 10:05 Microbiology Microbiology: Microbiology 12/25/23 21:41 Wound - Leg, Left Gram Stain - Final 12/25/23 21:41 Wound - Leg, Left Wound Culture - Final Pseudomonas aeruginosa Serratia marcescens Enterobacter cloacae complex Streptococcus group G Enterococcus faecalis Meth. resistant Staph. aureus 12/25/23 19:20 Blood Culture (Wb) - No Site/Description Given Blood Culture - Final No growth in 5 days. 12/25/23 21:40 Blood Culture (Wb) - Anticubital Left Blood Culture - Final No growth in 5 days. 12/25/23 17:47 Urine, Clean Catch Urine Culture - Final Mixed Gram Pos & Gram Neg Org Streptococcus group G 12/26/23 20:46 Nasal Secretion MRSA (PCR) - Final 12/25/23 18:26 Mucosa - Nose SARS-CoV-2, Influenza & RSV (PCR) - Final Goal Trough Goal Trough: 15-20 mcg/mL Pharmacy Plan for Drug Dosing Pharmacy Plan for Drug Dosing: NEW START IV VANCOMYCIN Consulting Physician: Dr. José Smith Indication: Wound Infection Goal Trough: 15-20 SrCr: 0.95 CrCl: 82 mL/min Comments: Patient was previously on vancomycin which was stopped and now resumed. Renal function has not significantly changed since then. Will place patient back on most recent dose to see if patient will be within therapeutic goal. Patient's dose had to keep getting lowered/ held d/t previously elevated troughs. Because of this, will not follow the dosing algorithm for initial dosing. Vancomycin Dose: 1750mg IV x1 initial dose (given 12/30 @1756) followed by 1250mg IV Q12hr to start 01/01/24 @0600 Pending Level: 01/02/24 @0530, prior to 4th total dose of vancomycin. Pharmacy Service will continue to monitor and adjust dosing as required.
[2023-12-31 20:00] VITALS: BP 136/93; PULSE 72; RESP 20; TEMP 36.8; O2SAT 97
[2023-12-31 20:58] VITALS: BP 136/93; PULSE 72; RESP 20; TEMP 36.8; O2SAT 97
[2023-12-31] MEDS: Ciprofloxacin 400 MG/200 ML BAG 200 MG IV (22:09)
[2023-12-31] MEDS: Atorvastatin Calcium 40 MG Tablet PO (22:16)
[2024-01-01 03:00] VITALS: BP 123/76; PULSE 70; RESP 18; TEMP 36.7; O2SAT 96
[2024-01-01] MEDS: oxyCODONE 5 MG Tablet PO (03:48)
[2024-01-01 04:50] VITALS: BMI 42.5
[2024-01-01] MEDS: Gabapentin 300 MG Capsule PO ×2 (05:47→13:25)
[2024-01-01] MEDS: Acetaminophen 500 MG Tablet 1000 MG PO ×2 (05:47→13:24)
[2024-01-01] MEDS: Vancomycin HCl 1,250 MG in 0.9% Normal Saline (250mL Bag) 250 ML 167 MG IV (05:50)
[2024-01-01 07:52] LABS: Magnesium 2.2 mg/dL (1.6-2.6)
--- NOTE | 2024-01-01 08:55 | CON.PCM_ITS ---
Assessment & Plan Assessment/Plan (1) Ulcer of right foot, limited to breakdown of skin: PLAN: Ulceration of the right great toe there was debrided into including dermal tissue removing any necrotic slough using a 15 blade. This was excisional debridement I redressed with Adaptic dry dressing (2) Cellulitis of right lower leg: (3) Varicose veins with ulcer and inflammation: PLAN: Excisional debridement including subcutaneous tissue at this area using a 15 blade and gauze. After debridement he had some soreness otherwise he tolerated well recommend Adaptic dry dressing continue dressing changes follow- up outpatient. PLAN: Plan No surgical intervention needed I believe that his wound should heal uneventfully though he does need to follow-up with us outpatient is as have mild peripheral vascular disease, varicose veins with cellulitis right leg continue antibiotics follow-up then. HPI Consult Data Date of Consult: 01/01/24 HPI Narrative Reason for Consultation: Cellulitis right lower extremity along with ulceration right great toe HPI Narrative: TURNER YAN, is a 73 M who presents [facility] Medical History Lipodermatosclerosis of both lower extremities Venous insufficiency (chronic) (peripheral) History of stroke History of CAD (coronary artery disease) History of atrial fibrillation Neuropathic pain Obesity Essential (primary) hypertension Hemiplegia of right dominant side as late effect of cerebral infarction Right rotator cuff tear Right hemiplegia Congestive heart failure (CHF) Ambulatory dysfunction Generalized weakness Tinea cruris Chronic venous stasis dermatitis Lymphedema Chronic anticoagulation Bilateral cellulitis of lower leg Candidiasis of skin Adult failure to thrive Hemiplegia affecting right dominant side Anticoagulant long-term use Pneumonia Cellulitis Atrial fibrillation CVA (cerebral vascular accident) Rotator cuff tear arthropathy of right shoulder CPAP (continuous positive airway pressure) dependence Sleep apnea FTT (failure to thrive) in adult Lymphedema of both lower extremities Chronic venous stasis dermatitis of both lower extremities Low back pain Hypertension Atrial fibrillation Debility Pain of left great toe Pain in right lower leg Hyperglycemia Leg pain Toe ulcer Lymphedema Non-pressure chronic ulcer of other part of right foot with necrosis of muscle Cellulitis of right lower limb Deep venous thrombosis 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 layer exposed Venous insufficiency Skin ulcer of left great toe with fat layer exposed Dyspnea on minimal exertion Anomalous origin of coronary artery Obesity New onset atrial fibrillation (11/25/20) Essential (primary) hypertension Pain of left lower extremity due to injury Former smoker Traumatic hematoma of left lower leg Arthritis Benign neoplasm of middle ear, nasal cavity and accessory sinuses ANDREE (obstructive sleep apnea) Cervical disc disease BPH (benign prostatic hyperplasia) GERD (gastroesophageal reflux disease) Hyperlipidemia Atherosclerotic heart disease of [place] coronary artery without angina pectoris Cardiac murmur, unspecified Home Medications ?Medication ?Instructions ?Recorded ?Last Taken ?Type rivaroxaban 20 mg tablet (Xarelto) 20 mg PO DINNER BLOOD THINNER #0 12/28/21 09/01/23 Rx tabs potassium chloride 20 mEq 20 meq PO BIDCM potassium #0 tabs 03/29/23 09/01/23 Rx tablet,extended release(part/cryst) (Klor-Con M) Lactobacil rhamnosus GG 10 billion 1 cap PO BID gut 09/02/23 09/01/23 History cell-inulin 200 mg sprinkle capsule ([employer]) gabapentin 300 mg capsule 300 mg PO TID neuropathy 09/02/23 09/01/23 History atorvastatin 40 mg tablet 40 mg PO QHS choplesterol #0 tabs 09/07/23 Unknown Rx furosemide 40 mg tablet 40 mg PO BIDCM diuretic 30 days 09/07/23 09/01/23 Rx #60 tabs menthol 0.44 %-zinc oxide 20.6 % 1 applic topical BID #0 grams 10/25/23 Unknown Rx topical ointment (Calmoseptine) nystatin 100,000 unit/gram topical 1 applic topical BID #0 grams 10/25/23 Unknown Rx powder (Nyamyc) losartan 100 mg tablet 125 mg PO DAILY blood pressure 12/25/23 Unknown History acetaminophen 500 mg tablet 1,000 mg PO Q8 PRN pain 12/27/23 Unknown History Allergy/AdvReac Type Severity Reaction Status Date / Time diphenhydramine (From AdvReac Mild Abd Verified 12/25/23 17:51 Benadryl) cramps/diarrhea ibuprofen (From Motrin) AdvReac Nausea Verified 12/25/23 17:51 Family History Mother CAD (coronary artery disease) Hypertension History of cardiac radiofrequency ablation Sister Hypertension Other Arthritis Surgical History History of coronary artery stent placement H/O cervical spine surgery History of herniorrhaphy History of carpal tunnel release History of transurethral resection of prostate History of coronary artery stent placement (11/29/10) History of bursectomy History of removal of cyst History of carpal tunnel surgery History of fusion of cervical spine Social History household members: other details: Older son Naeem. Smoking Status: Former smoker alcohol intake: never substance use type: does not use ROS ROS Narrative Patient seen today alert active and oriented no acute distress was making jokes today. Has no complaints he states his fever has resolved at this point. Constitutional Constitutional: Reports as per HPI Eyes Eyes: Reports as per HPI ENT HEENT: Reports systems reviewed and no addt'l complaints, except as documented Cardiovascular Cardiovascular: Reports systems reviewed and no addt'l complaints, except as documented Respiratory/Chest Respiratory/Chest: Reports systems reviewed and no addt'l complaints, except as documented Gastrointestinal Gastrointestinal: Reports systems reviewed and no addt'l complaints, except as documented Genitourinary Genitourinary: Reports systems reviewed and no addt'l complaints, except as documented Musculoskeletal Musculoskeletal: Reports systems reviewed and no addt'l complaints, except as documented, difficulty walking, extremity pain, joint swelling and limited range of motion Integumentary Integumentary: Reports systems reviewed and no addt'l complaints, except as documented Neurologic Neurologic: Reports systems reviewed and no addt'l complaints, except as documented Psychiatric Psychiatric: Reports systems reviewed and no addt'l complaints, except as documented Endocrine Endocrinology: Reports systems reviewed and no addt'l complaints, except as documented Hematologic/Lymphatic Hematologic/Lymphatic: Reports systems reviewed and no addt'l complaints, except as documented Allergic/Immunologic Allergic/Immunologic: Reports systems reviewed and no addt'l complaints, except as documented Physical Exam Const alert and oriented x3 General Appearance: cooperative Orientation / Consciousness: awake and oriented to person HEENT normocephalic Head and Scalp: normal to inspection Face and Sinus: normal facial exam Nose: external nose normal External Ear: external ears normal Eyes PERRL Cardio Rate: regular rate Rhythm: regular rhythm Heart Sounds: S1 normal and S2 normal GI normal to inspection, nondistended, normoactive bowel sounds Extremity Extremity Narrative: Patient seen on exam has barely palpable pedal pulses DP and PT bilateral. Noted on left lower extremity has chronic venous stasis dermatitis stasis changes left lower extremity had a small excoriation of the left lower leg but is healed at this point left leg has discoloration secondary to venous stasis disease at this point it is healed at this point no open wounds Right lower extremity has ulceration on the lateral side of the fibular area that measures 3 cm x 2 cm with fibrotic slough. Approximately 60% granulation 40% fibrotic slough. It was excisionally debrided into including subcutaneous tissue of the right lower leg. He does have cellulitis of the right lower extremity Has increased redness warmth and swelling compared to the left lower extremity. Stasis dermatitis changes well. After debridement the wound did not change I redressed with Adaptic Right great toe has what appears to be a blood blister or a superficial ulceration today I was able to debride the right great toe area of injury or ulceration after he states he had banged it a few times on his wheelchair. The area was debrided into including dermal tissue removing any necrotic and what appears to be an old blood blister changes of the right great toe. Redressed with Adaptic dry dressing will continue with wound care changes with compression He can be weightbearing as tolerated he may need a surgical shoe. Will follow- up with him in 2 weeks postoperatively. No surgical requirement at this point. General Extremity: normal exam except as noted Peripheral Pulses: Yes pulses 2+ throughout Lab / Micro Data 12/31/23 04:13 12/31/23 04:13 Labs: Laboratory Results - last 24 hr 01/01/24 06:23: Magnesium 2.2 Micro: Microbiology 12/25/23 21:41 Wound - Leg, Left Gram Stain - Final 12/25/23 21:41 Wound - Leg, Left Wound Culture - Final Pseudomonas aeruginosa Serratia marcescens Enterobacter cloacae complex Streptococcus group G Enterococcus faecalis Meth. resistant Staph. aureus 12/25/23 19:20 Blood Culture (Wb) - No Site/Description Given Blood Culture - Final No growth in 5 days. 12/25/23 21:40 Blood Culture (Wb) - Anticubital Left Blood Culture - Final No growth in 5 days.
[2024-01-01 09:00] VITALS: BP 125/73; PULSE 57; RESP 16; TEMP 36.7; O2SAT 97
--- NOTE | 2024-01-01 09:23 | CASEMGMT ---
Discharge Planning Updates sent to [facility]. Dario is still pending. Mary Salcido DC Planning Asst.
--- NOTE | 2024-01-01 09:40 | CASEMGMT ---
Discharge Planning [address] has obtained auth that is only good until today. Mary Salcido DC Planning Asst.
[2024-01-01] MEDS: Ciprofloxacin 400 MG/200 ML BAG 200 MG IV (10:53)
[2024-01-01] MEDS: Potassium Chloride Oral Tablet 20 MEQ 40 MEQ PO (11:02)
[2024-01-01] MEDS: Lactobacillis Acidophilus 1 CAP PO (11:02)
[2024-01-01] MEDS: Menthol/Lanolin/Calamine/Znox 113 GM Tube 1 APPLIC TOPICAL (11:03)
--- NOTE | 2024-01-01 11:03 | CON.PCM.ID_ITS ---
Assessment & Plan Assessment/Plan (1) Cellulitis of right lower leg: PLAN: Fever resolved, wbc back to normal. Wound cx with PsA, serratia, enterobacter, strep, enterococcus, and MRSA. Seen by podiatry this AM, bedside I&D done. Ok for home with 7 more days po linezolid 600mg bid and cipro 500mg bid. Will follow, thank you, d/w primary team. (2) Sepsis: QUALIFIERS: Sepsis type: sepsis due to unspecified organism S epsis acute organ dysfunction status: with acute organ dysfunction Severe sepsis acute organ dysfunction type: encephalopathy Severe sepsis shock status: without septic shock Qualified Code(s): A41.9 - Sepsis, unspecified organism; R65.20 - Severe sepsis without septic shock; G93.41 - Metabolic encephalopathy HPI Consult Data Date of Consult: 01/01/24 HPI Narrative Reason for Consultation: fever HPI Narrative: TURNER YAN, is a 73 M with h/o stroke with R sided weakness, presented 12/24 with several days fever, confusion, RLE pain/redness/swelling/drainage. Had wound on RLE after falling in shower. Admitted on vanc/zosyn, narrowed to vanc/cipro. Feeling better, fever resolved, RLE less red and sore. Full ROS performed and neg except as noted above. [facility] Medical History Lipodermatosclerosis of both lower extremities Venous insufficiency (chronic) (peripheral) History of stroke History of CAD (coronary artery disease) History of atrial fibrillation Neuropathic pain Obesity Essential (primary) hypertension Hemiplegia of right dominant side as late effect of cerebral infarction Right rotator cuff tear Right hemiplegia Congestive heart failure (CHF) Ambulatory dysfunction Generalized weakness Tinea cruris Chronic venous stasis dermatitis Lymphedema Chronic anticoagulation Bilateral cellulitis of lower leg Candidiasis of skin Adult failure to thrive Hemiplegia affecting right dominant side Anticoagulant long-term use Pneumonia Cellulitis Atrial fibrillation CVA (cerebral vascular accident) Rotator cuff tear arthropathy of right shoulder CPAP (continuous positive airway pressure) dependence Sleep apnea FTT (failure to thrive) in adult Lymphedema of both lower extremities Chronic venous stasis dermatitis of both lower extremities Low back pain Hypertension Atrial fibrillation Debility Pain of left great toe Pain in right lower leg Hyperglycemia Leg pain Toe ulcer Lymphedema Non-pressure chronic ulcer of other part of right foot with necrosis of muscle Cellulitis of right lower limb Deep venous thrombosis 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 layer exposed Venous insufficiency Skin ulcer of left great toe with fat layer exposed Dyspnea on minimal exertion Anomalous origin of coronary artery Obesity New onset atrial fibrillation (03/24/20) Essential (primary) hypertension Pain of left lower extremity due to injury Former smoker Traumatic hematoma of left lower leg Arthritis Benign neoplasm of middle ear, nasal cavity and accessory sinuses ANDREE (obstructive sleep apnea) Cervical disc disease BPH (benign prostatic hyperplasia) GERD (gastroesophageal reflux disease) Hyperlipidemia Atherosclerotic heart disease of [place] coronary artery without angina pectoris Cardiac murmur, unspecified Home Medications ?Medication ?Instructions ?Recorded ?Last Taken ?Type rivaroxaban 20 mg tablet (Xarelto) 20 mg PO DINNER BLOOD THINNER #0 12/28/21 09/01/23 Rx tabs potassium chloride 20 mEq 20 meq PO BIDCM potassium #0 tabs 03/29/23 09/01/23 Rx tablet,extended release(part/cryst) (Klor-Con M) Lactobacil rhamnosus GG 10 billion 1 cap PO BID gut 09/02/23 09/01/23 History cell-inulin 200 mg sprinkle capsule ([employer]) gabapentin 300 mg capsule 300 mg PO TID neuropathy 09/02/23 09/01/23 History atorvastatin 40 mg tablet 40 mg PO QHS choplesterol #0 tabs 09/07/23 Unknown Rx furosemide 40 mg tablet 40 mg PO BIDCM diuretic 30 days 09/07/23 09/01/23 Rx #60 tabs menthol 0.44 %-zinc oxide 20.6 % 1 applic topical BID #0 grams 10/25/23 Unknown Rx topical ointment (Calmoseptine) nystatin 100,000 unit/gram topical 1 applic topical BID #0 grams 10/25/23 Unknown Rx powder (Nyamyc) losartan 100 mg tablet 125 mg PO DAILY blood pressure 12/25/23 Unknown History acetaminophen 500 mg tablet 1,000 mg PO Q8 PRN pain 12/27/23 Unknown History Allergy/AdvReac Type Severity Reaction Status Date / Time diphenhydramine (From AdvReac Mild Abd Verified 12/25/23 17:51 Benadryl) cramps/diarrhea ibuprofen (From Motrin) AdvReac Nausea Verified 12/25/23 17:51 Family History Mother CAD (coronary artery disease) Hypertension History of cardiac radiofrequency ablation Sister Hypertension Other Arthritis Surgical History History of coronary artery stent placement H/O cervical spine surgery History of herniorrhaphy History of carpal tunnel release History of transurethral resection of prostate History of coronary artery stent placement (11/29/10) History of bursectomy History of removal of cyst History of carpal tunnel surgery History of fusion of cervical spine Social History household members: other details: Older son Naeem. Smoking Status: Former smoker alcohol intake: never substance use type: does not use Physical Exam Const alert and no apparent distress General Appearance: cooperative HEENT normocephalic and head/scalp atraumatic Eyes PERRL and EOMs intact bilaterally Neck supple and No nodes Resp normal air movement and clear to auscultation bilaterally Cardio regular rate and regular rhythm GI soft to palpation, non-tender and non-distended Extremity General Extremity: edema Skin Skin Narrative: reviewed photos, legs wrapped Neuro CN's II-XII intact bilaterally Lab / Micro Data Attestation: I reviewed the patient's lab results. 12/31/23 04:13 12/31/23 04:13 Labs: Laboratory Results - last 24 hr 01/01/24 06:23: Magnesium 2.2 Micro: Microbiology 12/25/23 21:41 Wound - Leg, Left Gram Stain - Final 12/25/23 21:41 Wound - Leg, Left Wound Culture - Final Pseudomonas aeruginosa Serratia marcescens Enterobacter cloacae complex Streptococcus group G Enterococcus faecalis Meth. resistant Staph. aureus 12/25/23 19:20 Blood Culture (Wb) - No Site/Description Given Blood Culture - Final No growth in 5 days. 12/25/23 21:40 Blood Culture (Wb) - Anticubital Left Blood Culture - Final No growth in 5 days.
[2024-01-01] MEDS: Losartan Potassium 50 MG Tablet 125 MG PO (11:04)
[2024-01-01] MEDS: Nystatin Powder 15gm Bottle 1 APPLIC TOPICAL (11:07)
[2024-01-01] MEDS: Furosemide 40 MG/4 ML Vial IV (11:14)
--- NOTE | 2024-01-01 12:56 | PCM.TXEXTCAR ---
Diet Diet Order/Speech Therapy: 12/27/23 07:15 Diet: Regular - No Added Salt Type of Dietary Supplement:: Nirav Fluid restriction:: 1500 mL Diet Comments: Nirav with lunch and dinner Routine Orders/Code Status Suppository Frequency: Daily PRN O2 Frequency: PRN Keep PO Greater than or Equal to (%): 89 Routine Lab Work: CBC (1 week) and BMP (1 week) Code Status: Full Code Wound(s) right lower leg: Wound Type: Stasis Ulcer right great toe: Wound Type: dry blood blister Dressing Change: dry dressing right lateral lower leg: Wound Type: Stasis Ulcer Dressing Change: Aquacel Extra right posterior lower leg: Wound Type: Stasis Ulcer Dressing Change: Aquacel Extra left lateral lower leg: Wound Type: Stasis Ulcer Dressing Change: Aquacel Extra Therapies Weight Bearing: Weight bearing as tolerated Physical Therapy: Eval and Treat Occupational Therapy: Eval and Treat Problem/Diagnosis (1) Cellulitis of right lower leg: Status: Acute Code(s): L03.115 - Cellulitis of right lower limb (2) Sepsis: Status: Acute Code(s): A41.9 - Sepsis, unspecified organism Allergies/Procedures Done in Hospital Allergies diphenhydramine (From Benadryl) Adverse Reaction (Mild, Verified 12/25/23 17:51) Abd cramps/diarrhea ibuprofen (From Motrin) Adverse Reaction (Verified 12/25/23 17:51) Nausea Procedures: EKG and - (Chest x-ray/CT lower extremity) Type of Care/Length of Stay Estimated LOS: Convalescent Care Less Than 30 days Type of Care Needed: Skilled Rehab Potential: Fair Prognosis: Fair Additional Orders/Day of Discharge Day of Discharge: 01/01/24 Dietary and Speech Recommendations Dietitian Recommendations/Changes: Adjust to cardiac heart healthy diet to manage medical conditions. Will order nirav with lunch and dinner to promote wound healing. Will provide nutrition education, if pt request. Will monitor weight, as available. Reviewed and approved by Mercedez Malin RD, LD. Discharge Plan Admission Admit Date/Time: 12/25/23 23:16 Attending Provider: Maria Esther Smith Primary Care Provider: Shanda Jensen NP Consulting Providers: Bari Resendez; Kervin Ortiz; Paul Christianson; Naseem Brothers Discharge Orders/Prescriptions Prescriptions: New linezolid 600 mg tablet 600 mg PO Q12H Qty: 14 0RF ciprofloxacin HCl [Cipro] 500 mg tablet 500 mg PO BID Qty: 14 0RF No Action Xarelto 20 mg Tablet 20 mg PO DINNER Qty: 0 0RF potassium chloride [Klor-Con M20] 20 mEq Tablet,Er Particles/Crystals 20 meq PO BIDCM Qty: 0 0RF gabapentin 300 mg capsule 300 mg PO TID [facility] 10 billion cell -200 mg capsule, sprinkle 1 cap PO BID atorvastatin 40 mg Tablet 40 mg PO QHS Qty: 0 0RF furosemide 40 mg tablet 40 mg PO BIDCM 30 Days Qty: 60 0RF nystatin [Nyamyc] 100,000 unit/gram Powder 1 applic topical BID Qty: 0 0RF Protocol: *Topical Application Instructions APPLICATION INSTRUCTIONS: groin/abdominal folds menthol-zinc oxide [Calmoseptine] 0.44-20.6 % Ointment 1 applic topical BID Qty: 0 0RF Protocol: *Topical Application Instructions APPLICATION INSTRUCTIONS: buttocks losartan 100 mg Tablet 125 mg PO DAILY acetaminophen 500 mg Tablet 1,000 mg PO Q8 PRN (Reason: pain) Referrals / Follow Up: Shanda Jensen NP, [facility] [facility] [Primary Care Provider] - (2) Sepsis Qualifiers: Sepsis type: sepsis due to unspecified organism Sepsis acute organ dysfunction status: with acute organ dysfunction Severe sepsis acute organ dysfunction type: encephalopathy Severe sepsis shock status: without septic shock Qualified Code(s): A41.9 - Sepsis, unspecified organism; R65.20 - Severe sepsis without septic shock; G93.41 - Metabolic encephalopathy
--- NOTE | 2024-01-01 12:58 | DS.PCM_ITS ---
Providers Date of Admission: 12/25/23 Primary Care Physician: JAVIER Celis Consultations 12/26/23 09:21 Consult: Onc/Wound/brick pointer Routine Comment: 12/31/23 07:26 Consult: Infectious Disease Routine Consulting Provider: Naseem Brothers Reason for Consult: wound infection-polymicrobial EMERGENT Consult: No MD Notified: Yes Date Notified: 01/01/24 Time Notified: 06:12 Method of Notification: Text 12/31/23 15:48 Consult: Podiatry Routine Consulting Provider: Paul Christianson Reason for Consult: R toe wound EMERGENT Consult: No MD Notified: Yes Date Notified: 12/31/23 Time Notified: 15:48 Method of Notification: Verbal Reason For Visit: RLE CELLULITIS AND WOUND WITH SEPSIS Diagnosis Discharge Diagnosis (1) Cellulitis of right lower leg: Status: Acute Code(s): L03.115 - Cellulitis of right lower limb (2) Sepsis: Status: Acute Code(s): A41.9 - Sepsis, unspecified organism Qualifiers: Sepsis type: sepsis due to unspecified organism Sepsis acute organ dysfunction status: with acute organ dysfunction Severe sepsis acute organ dysfunction type: encephalopathy Severe sepsis shock status: without septic shock Qualified Code(s): A41.9 - Sepsis, unspecified organism; R65.20 - Severe sepsis without septic shock; G93.41 - Metabolic encephalopathy Medications at Discharge Home Medications rivaroxaban 20 mg tablet (Xarelto) 20 mg PO DINNER BLOOD THINNER #0 tabs 12/28/21 potassium chloride 20 mEq tablet,extended release(part/cryst) (Klor-Con M) 20 meq PO BIDCM potassium #0 tabs 03/29/23 Lactobacil rhamnosus GG 10 billion cell-inulin 200 mg sprinkle capsule ([employer]) 1 cap PO BID gut 09/02/23 gabapentin 300 mg capsule 300 mg PO TID neuropathy 09/02/23 atorvastatin 40 mg tablet 40 mg PO QHS choplesterol #0 tabs 09/07/23 furosemide 40 mg tablet 40 mg PO BIDCM diuretic 30 days #60 tabs 09/07/23 menthol 0.44 %-zinc oxide 20.6 % topical ointment (Calmoseptine) 1 applic topical BID #0 grams 10/25/23 nystatin 100,000 unit/gram topical powder (Nyamyc) 1 applic topical BID #0 grams 10/25/23 losartan 100 mg tablet 125 mg PO DAILY blood pressure 12/25/23 acetaminophen 500 mg tablet 1,000 mg PO Q8 PRN pain 12/27/23 ciprofloxacin HCl 500 mg tablet (Cipro) 500 mg PO BID #14 tabs 01/01/24 linezolid 600 mg tablet 600 mg PO Q12H #14 tabs 01/01/24 oxycodone 5 mg tablet 5 mg PO Q4H PRN PRN Pain Score 6-10 1 day #6 tabs 01/01/24 Hospital Course Procedures EKG and - (Chest x-ray/lower extremity CT) Summary of Care Provided Minutes Spent on Discharge: 39 Hospital Course: Mr. Roberson is a 73-year-old white male who presented to the emergency department at [facility] on 12/25/2023 with fever and confusion along with an acutely worsening right lower extremity wound that has been a chronic problem. It is documented that his son reported symptoms began a couple days prior to presentation when he turned the thermostat up in his room because he was feeling cold despite high summer temperatures. The patient then on the day of presentation developed an abrupt onset burning and sharp pain in his right leg followed by a fever that went up to 102 degrees at home that was associated with acute confusion. His son also reported poor wound healing despite frequent dressing changes. Patient also had some nausea with bilious emesis and decreased p.o. intake. He was given Tylenol at home and his symptoms were improving some but given his symptoms his son decided to have him evaluated in the emergency department. Vital signs on presentation showed a temperature of 101.8, heart rate 115, respiratory rate was 25, blood pressure was 143/76 and pulse ox was 98% on room air. CBC showed a leukocytosis with a white count of 21.1 and a left shift having an 91.8% neutrophilia. Coags were elevated as expected due to his chronic Xarelto use. Chemistry showed normal electrolytes, renal function with a serum glucose of 143 and a lactate of 1.6. Chest x-ray showed some mild interstitial prominence and lower extremity CT demonstrated findings consistent with cellulitis including extensive subcutaneous fat stranding in the right lower leg. No fluid collection or abscess was noted. Given the fact he was in A-fib with RVR on presentation he was admitted to telemetry and placed on broad-spectrum antibiotics with vancomycin and Zosyn. Cultures were obtained after antibiotics were started. He is clinically slowly improving since that point in time however it has been deemed that the care at home is going to be more than can be provided so placement is pending and he has been accepted the [facility] and was accepted for admission with pre-CERT obtained on 01/01/2024. Podiatry evaluated his right lower extremity foot wound and did some minimal debridement with no need for surgical intervention and outpatient follow-up as needed after discharge from SNF. ID evaluated the patient based on his polymicrobial infection and wrote for another 7 days of oral antibiotics to include ciprofloxacin and linezolid. No other medication changes were needed. Of the patient is extremely noncompliant with his diet to the point where his sons bring in pizza and hot wings which were clearly not within his restriction for sodium. I suspect his noncompliance at home has markedly contributed to his recurrent frequent hospital patients. He has a follow-up with his primary care physician within 1 to 2 weeks after discharge from senior care facility. Discharge diagnoses: Right lower extremity cellulitis-acute on chronic -Sepsis was ruled out R great toe wound Toxic/Metabolic encephalopathy Chronic anasarca Chronic venous stasis Lipodermatosclerosis Hypokalemia-resolved Chronic atrial fibrillation Carotid artery stenosis Right sided hemiparesis due to previous stroke CAD Essential hypertension Hyperlipidemia History of GERD History of BPH History of ANDREE-noncompliant Morbid obesity Physical Exam Narrative Yeah I can hear same Const alert, oriented x3, no apparent distress and well nourished; Negative for average body habitus or healthy appearing Constitutional Narrative: Morbidly obese, white male, sitting up in bed watching television, eating lunch, appears comfortable, does not appear toxic General Appearance: cooperative, comfortable, well kempt and well developed Orientation / Consciousness: awake, oriented to person, oriented to place and oriented to time Exam Limitations: no limitations Nutritional Appearance: morbidly obese HEENT normocephalic, head/scalp atraumatic, hearing grossly normal bilaterally and moist oral mucous membranes HEENT Narrative: Dentition is poor, Mallampati is 3-4, no thrush Eyes PERRL, EOMs intact bilaterally and conjunctivae normal Eyes Narrative: No scleral icterus Neck no lymphadenopathy and supple Neck Narrative: Trachea midline, neck is short and thick Resp normal respiratory effort, no retractions, no use of accessory muscles and clear to auscultation bilaterally Auscultation: Negative for rales, rhonchi or wheezes Cardio regular rate, regular rhythm, S1 normal heart sound, S2 normal heart sound, no rub, no gallops and no clicks; Negative for no murmurs Cardio Narrative: 2 out of 6 systolic murmur loudest at right upper sternal border GI normal to inspection, nondistended, normoactive bowel sounds, soft to palpation and non-tender GI Narrative: Large protuberant abdomen Extremity Extremity Narrative: Right lower extremity wrapped however distally changes consistent with venous stasis noted, left lower extremity with chronic venous stasis But no marked wound Skin Skin Narrative: Wounds are superficial and consistent with venous stasis ulcers on bilateral lower extremities in the mid tibial region, he also has a ulceration on the plantar surface of his right toe that appears unstageable and necrotic Neuro oriented x3, moves all extremities and no focal motor deficits Speech: speech normal Psych affect normal Psych Narrative: Patient interacts appropriately Weight / BMI Weight Weight: 119.6 kg Body Mass Index (BMI) 42.5 ABG / Lab / Microbiology Data 12/31/23 04:13 12/31/23 04:13 Laboratory: Laboratory Results - last 24 hr 01/01/24 06:23: Magnesium 2.2 Microbiology: Microbiology 12/25/23 21:41 Wound - Leg, Left Gram Stain - Final 12/25/23 21:41 Wound - Leg, Left Wound Culture - Final Pseudomonas aeruginosa Serratia marcescens Enterobacter cloacae complex Streptococcus group G Enterococcus faecalis Meth. resistant Staph. aureus 12/25/23 19:20 Blood Culture (Wb) - No Site/Description Given Blood Culture - Final No growth in 5 days. 12/25/23 21:40 Blood Culture (Wb) - Anticubital Left Blood Culture - Final No growth in 5 days. 12/25/23 17:47 Urine, Clean Catch Urine Culture - Final Mixed Gram Pos & Gram Neg Org Streptococcus group G 12/26/23 20:46 Nasal Secretion MRSA (PCR) - Final 12/25/23 18:26 Mucosa - Nose SARS-CoV-2, Influenza & RSV (PCR) - Final Meaningful Use Info Meaningful Use Meaningful Use Diagnoses (Choose all that apply): None applicable Ischemic Stroke Statin Dosing Therapy Reference: STATIN DOSE THERAPY REFERENCE: * Patients > 75 years receive moderate or high dose statin therapy. * Patients 75 years or YOUNGER should receive HIGH intensity statin dose unless contraindicated. You will be required to document reason for non-treatment if statin daily dose does not meet guidelines. HIGH DOSE STATIN THERAPY DAILY Atorvastatin > than or = to 40 mg Rosuvastatin > than or = to 20 mg Amlodipine + Atorvastatin > than or = to 2.5/40 mg Ezetimibe + Simvastatin 10/80 mg Simvastatin 80mg Discharge Plan Admission Admit Date/Time: 12/25/23 23:16 Primary Reason for Your Visit: Fever and Confusion Attending Provider: Maria Esther Smith Primary Care Provider: Shanda Jensen NP Consulting Providers: Bari Resendez; Kervin Ortiz; Paul Christianson; Naseem Brothers Discharge Orders/Prescriptions Prescriptions: New linezolid 600 mg tablet 600 mg PO Q12H Qty: 14 0RF ciprofloxacin HCl [Cipro] 500 mg tablet 500 mg PO BID Qty: 14 0RF oxycodone 5 mg Tablet 5 mg PO Q4H PRN PRN (Reason: Pain Score 6-10) 1 Days Qty: 6 0RF Continued Xarelto 20 mg Tablet 20 mg PO DINNER Qty: 0 0RF potassium chloride [Klor-Con M20] 20 mEq Tablet,Er Particles/Crystals 20 meq PO BIDCM Qty: 0 0RF gabapentin 300 mg capsule 300 mg PO TID [facility] 10 billion cell -200 mg capsule, sprinkle 1 cap PO BID atorvastatin 40 mg Tablet 40 mg PO QHS Qty: 0 0RF furosemide 40 mg tablet 40 mg PO BIDCM 30 Days Qty: 60 0RF nystatin [Nyamyc] 100,000 unit/gram Powder 1 applic topical BID Qty: 0 0RF Protocol: *Topical Application Instructions APPLICATION INSTRUCTIONS: groin/abdominal folds menthol-zinc oxide [Calmoseptine] 0.44-20.6 % Ointment 1 applic topical BID Qty: 0 0RF Protocol: *Topical Application Instructions APPLICATION INSTRUCTIONS: buttocks losartan 100 mg Tablet 125 mg PO DAILY acetaminophen 500 mg Tablet 1,000 mg PO Q8 PRN (Reason: pain) Referrals / Follow Up: Paul Christianson MD [Med Staff - Active Staff] - Within 2 Weeks (after d/c from SNF) Shanda Jensen NP, [employer] [Primary Care Provider] - Within 1 Week (after d/c from SNF) Disposition Disposition (needs filled in before D/C Order can be placed): Assisted Facility Charges/Coding Visit Charges Inpatient E&M: 05857 SNF Disch >30 Min
[2024-01-01 15:00] VITALS: BP 112/71; PULSE 56; RESP 16; TEMP 36.6; O2SAT 97
--- NOTE | 2024-01-01 15:09 | CASEMGMT ---
Discharge Planning Discharge orders, signed med list, and transport time sent to [facility] via [facility]. [facility] transport was scheduled with [facility] for 4:30p. Nursing, SW, patient, and his son (Naeem) updated. Mary Salcido DC Planning Asst.
--- NOTE | 2024-01-01 17:02 | CASEMGMT ---
Patient is ready for discharge to [facility]. [facility] transport patient. PASRR was completed in [facility] system. Plan: d/c to [facility] under skilled level of care on a PASRR. [facility] will transport patient. Batsheva ANTUNEZ
== END 2024-01-01 17:19 | disposition skilled nursing facility (03) | DRG 602 ==
LOC: ED 22:37 → PCU 12-26 00:48
PROVIDERS: Family Medicine; Admitting Provider Internal Medicine; Emergency Provider Emergency Medicine; PCP Nurse Practitioner Family; Visit Provider Internal Medicine
DX: L03.115 Cellulitis of right lower limb (principal); G93.41 Metabolic encephalopathy; G92.8 Other toxic encephalopathy; I69.351 Hemiplegia and hemiparesis following cerebral infarction affecting right dominant side; I48.20 Chronic atrial fibrillation, unspecified; L97.919 Non-pressure chronic ulcer of unspecified part of right lower leg with unspecified severity; Z68.41 Body mass index [BMI] 40.0-44.9, adult; L97.929 Non-pressure chronic ulcer of unspecified part of left lower leg with unspecified severity; G62.9 Polyneuropathy, unspecified; I10 Essential (primary) hypertension; K21.9 Gastro-esophageal reflux disease without esophagitis; I87.2 Venous insufficiency (chronic) (peripheral); M50.30 Other cervical disc degeneration, unspecified cervical region; E66.01 Morbid (severe) obesity due to excess calories; E78.5 Hyperlipidemia, unspecified; I25.10 Atherosclerotic heart disease of native coronary artery without angina pectoris; E87.6 Hypokalemia; I65.29 Occlusion and stenosis of unspecified carotid artery; G47.33 Obstructive sleep apnea (adult) (pediatric); Z87.891 Personal history of nicotine dependence; Z95.5 Presence of coronary angioplasty implant and graft; Z86.718 Personal history of other venous thrombosis and embolism; Z91.119 Patient's noncompliance with dietary regimen due to unspecified reason; B95.2 Enterococcus as the cause of diseases classified elsewhere; Z79.01 Long term (current) use of anticoagulants; N40.0 Benign prostatic hyperplasia without lower urinary tract symptoms; R60.1 Generalized edema
CPT/HCPCS: 36415; 71045; 73700; 80048; 80053; 80202; 81001; 83605; 83735; 85025; 85610; 85730; 87040; 87070; 87077; 87086; 87088; 87184; 87186; 87205; 87631; 87641; 93005; 94762; 97162; 97166; 97530; 97535; 97802; 99285; J7030; J7040; J7050; A4216; J0295; J0744; J1940

== ENCOUNTER 2024-01-10 12:07 | Emergency (ER) | payer MEDICARE, SELFPAY ==
[2024-01-10] VITALS (9 sets, daily range): BP systolic 85–135; BP diastolic 53–94; PULSE 60–78; RESP 14–22; TEMP 35.7–37.1; O2SAT 93–100; BMI 43.5
--- NOTE | 2024-01-10 12:25 | EKG12_ITS ---
Test Reason : Blood Pressure : / mmHG Vent. Rate : 076 BPM Atrial Rate : 000 BPM P-R Int : 000 ms QRS Dur : 090 ms QT Int : 406 ms P-R-T Axes : 000 014 192 degrees QTc Int : 456 ms Atrial fibrillation with premature ventricular or aberrantly conducted complexes ST & T wave abnormality, consider inferior ischemia ST & T wave abnormality, consider anterolateral ischemia Abnormal ECG Confirmed by DAVE GLASS, DEZ ([id number]), telegraph editor LARRY VERGARA ([id number]) on 01/12/2024 8:10:52 AM Referred By: Rudy Hernandez Confirmed By:DEZ ACOSTA MD
[2024-01-10] MEDS: 0.9% Normal Saline (1000mL) 1,000 ML 1000 ML IV ×2 (12:39→16:17)
[2024-01-10 12:40] LABS: Absolute Lymphocyte Count 1.39 X10^3/uL (0.83-4.51); Basophil# 0.05 X10^3/uL; Basophil% 0.6 % (0-1); Eosinophil# 0.56 X10^3/uL; Eosinophils% 6.4 % (0-5); Hematocrit 42.8 % (40-54); Lymphocyte # 1.39 X10^3/ul (0.83-4.51); Lymphocyte % 15.9 % (19-41); Mean Corp Hgb Conc 32.7 g/dL (32-36); Mean Corpuscular Volume 94.9 fL (80-94); Monocyte# 0.72 X10^3/uL; Monocyte% 8.2 % (0-10); NRBC Flagged by Analyzer 0 % (0-5); Neutrophil # 6.01 X10^3/uL (2.7-7.7); Neutrophil % 68.6 % (47-70); Platelet Count 235 K/mm3 (150-450); RBC Distribution Width CV 14.5 % (11.6-14.6); RBC Distribution Width SD 50.4 fl (35.1-43.9); Red Blood Count 4.51 M/mm3 (4.6-6.2); White Blood Count 8.8 K/mm3 (4.4-11.0)
[2024-01-10 12:55] LABS: Anion Gap 7 (5-15); BUN 18 mg/dL (7-18); BUN/Creat Ratio 17.5 RATIO (10-20); Calcium,Total 8.7 mg/dL (8.5-10.1); Chloride 107 mmol/L (98-107); Creatinine, Serum 1.03 mg/dL (0.70-1.30); EST Glomerular Filtration Rate 75 mL/min (>60); Est Glom Filt Rate - Afr Amer 91 mL/min (>60); Estimated Creatinine Clearance 77.64 ml/min; Glucose 137 mg/dL (74-106); Potassium 3.6 mmol/L (3.5-5.1); Sodium Level 141 mmol/L (136-145)
[2024-01-10 13:13] LABS: Lactic Acid 1.5 mmol/L (0.4-1.9)
--- NOTE | 2024-01-10 14:21 | EX.ED.DYSGE1 ---
HPI History of Present Illness Chief Complaint: Other, Pain/Inj Detail of Chief Complaint: Patient complains of pain all over the Informant: patient, EMS and SNF Onset/Context/Timing Onset: Today and Yesterday Context: Sudden Onset Timing: Intermittent Quality: Pain Location: Total body Current Severity: Mild Maximum Severity: Severe Worsened by: Per son he has history of neuropathy, touch does make his symptoms worse Relieved by: Nothing there is question of chest pain. Associated Symptoms Associated Symptoms: Intermittent paresthesia Narrative Narrative: Patient is a 73-year-old male who is hard of hearing and a poor informant. He apparently had pain all over yesterday. Today he developed pain all over again and was sent to the emergency department. When asked if he specifically had chest pain he states he felt muscle spasms left side anterior axillary line to the posterior axillary line over ribs 8 9 and 10. He had no associated symptoms. He denies fever, chills night sweats. He denies headache, visual, ocular auditory symptoms. He denies abdominal pain. He denies vomiting, but he does endorse diarrhea. He has not noted any blood or mucus in his diarrhea. His diarrhea is brown in color. He denies urologic symptoms. Prior similar symptoms: Yes (Per son) Recent Illness/Hospitalization: Yes (Patient was recently admitted for cellulitis of the right leg with sepsis.) [facility] Medical History Morbid obesity with BMI of 40.0-44.9, adult History of CVA (cerebrovascular accident) Atrial fibrillation Bilateral leg edema Lipodermatosclerosis of both lower extremities Venous insufficiency (chronic) (peripheral) History of stroke History of CAD (coronary artery disease) History of atrial fibrillation Neuropathic pain Obesity Essential (primary) hypertension Hemiplegia of right dominant side as late effect of cerebral infarction Right rotator cuff tear Right hemiplegia Congestive heart failure (CHF) Ambulatory dysfunction Generalized weakness Tinea cruris Chronic venous stasis dermatitis Lymphedema Chronic anticoagulation Bilateral cellulitis of lower leg Candidiasis of skin Adult failure to thrive Hemiplegia affecting right dominant side Anticoagulant long-term use Pneumonia Cellulitis Atrial fibrillation CVA (cerebral vascular accident) Rotator cuff tear arthropathy of right shoulder CPAP (continuous positive airway pressure) dependence Sleep apnea FTT (failure to thrive) in adult Lymphedema of both lower extremities Chronic venous stasis dermatitis of both lower extremities Low back pain Hypertension Atrial fibrillation Debility Pain of left great toe Pain in right lower leg Hyperglycemia Leg pain Toe ulcer Lymphedema Non-pressure chronic ulcer of other part of right foot with necrosis of muscle Cellulitis of right lower limb Deep venous thrombosis 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 layer exposed Venous insufficiency Skin ulcer of left great toe with fat layer exposed Dyspnea on minimal exertion Anomalous origin of coronary artery Obesity New onset atrial fibrillation (03/24/20) Essential (primary) hypertension Pain of left lower extremity due to injury Former smoker Traumatic hematoma of left lower leg Arthritis Benign neoplasm of middle ear, nasal cavity and accessory sinuses ANDREE (obstructive sleep apnea) Cervical disc disease BPH (benign prostatic hyperplasia) GERD (gastroesophageal reflux disease) Hyperlipidemia Atherosclerotic heart disease of [place] coronary artery without angina pectoris Cardiac murmur, unspecified Home Medications ?Medication ?Instructions ?Recorded ?Last Taken ?Type rivaroxaban 20 mg tablet (Xarelto) 20 mg PO DINNER BLOOD THINNER #0 12/28/21 09/01/23 Rx tabs potassium chloride 20 mEq 20 meq PO BIDCM potassium #0 tabs 03/29/23 09/01/23 Rx tablet,extended release(part/cryst) (Klor-Con M) Lactobacil rhamnosus GG 10 billion 1 cap PO BID gut 09/02/23 09/01/23 History cell-inulin 200 mg sprinkle capsule ([employer]) gabapentin 300 mg capsule 300 mg PO TID neuropathy 09/02/23 09/01/23 History atorvastatin 40 mg tablet 40 mg PO QHS choplesterol #0 tabs 09/07/23 Unknown Rx furosemide 40 mg tablet 40 mg PO BIDCM diuretic 30 days 09/07/23 09/01/23 Rx #60 tabs menthol 0.44 %-zinc oxide 20.6 % 1 applic topical BID #0 grams 10/25/23 Unknown Rx topical ointment (Calmoseptine) nystatin 100,000 unit/gram topical 1 applic topical BID #0 grams 10/25/23 Unknown Rx powder (Nyamyc) losartan 100 mg tablet 125 mg PO DAILY blood pressure 12/25/23 Unknown History acetaminophen 500 mg tablet 1,000 mg PO Q8 PRN pain 12/27/23 Unknown History ciprofloxacin HCl 500 mg tablet 500 mg PO BID #14 tabs 01/01/24 Unknown Rx (Cipro) linezolid 600 mg tablet 600 mg PO Q12H #14 tabs 01/01/24 Unknown Rx oxycodone 5 mg tablet 5 mg PO Q4H PRN PRN Pain Score 01/01/24 Unknown Rx 6-10 1 day #6 tabs Allergy/AdvReac Type Severity Reaction Status Date / Time diphenhydramine (From AdvReac Mild Abd Verified 12/25/23 17:51 Benadryl) cramps/diarrhea ibuprofen (From Motrin) AdvReac Nausea Verified 12/25/23 17:51 Family History Mother CAD (coronary artery disease) Hypertension History of cardiac radiofrequency ablation Sister Hypertension Other Arthritis Surgical History History of coronary artery stent placement H/O cervical spine surgery History of herniorrhaphy History of carpal tunnel release History of transurethral resection of prostate History of coronary artery stent placement (11/29/10) History of bursectomy History of removal of cyst History of carpal tunnel surgery History of fusion of cervical spine Social History household members: other details: Older son Naeem. Smoking Status: Former smoker alcohol intake: never substance use type: does not use ROS ROS ED Constitutional Constitutional ED: Denies chills, fever(s), subjective or sweats Eyes Eyes: Denies blurry vision or change in vision ENT ENT ED: Denies ear pain, rhinorrhea or sore throat Cardiovascular Cardiovascular: Reports chest pain; Denies palpitations or racing heartbeat Respiratory/Chest Respiratory/Chest: Denies cough, dyspnea or dyspnea on exertion Gastrointestinal Gastrointestinal: Reports diarrhea; Denies abdominal pain, constipation or vomiting Genitourinary Genitourinary ED: Denies dysuria, hematuria or urinary frequency Musculoskeletal Musculoskeletal: Denies back pain, myalgias or neck pain Integumentary Reports rash Neurologic Neurologic: Reports weakness; Denies headache(s) or paresthesias Endocrine Endocrinology: Denies cold intolerance or heat intolerance Hematologic/Lymphatic Hematologic/Lymphatic: Reports systems reviewed and no addt'l complaints, except as documented EXAM Physical Exam Const Vital Signs: 01/10/24 12:12 01/10/24 12:23 01/10/24 12:28 Temperature 96.3 F L Temperature Source Temporal Pulse Rate 78 71 Respiratory Rate 14 16 Respiratory Effort Normal Respiratory Pattern Normal Blood Pressure 85/53 L 111/70 Blood Pressure Mean 63 83 Pulse Ox 93 93 Oxygen Delivery Method Room Air Room Air 01/10/24 13:00 01/10/24 14:00 01/10/24 15:00 Temperature 97.8 F 97.8 F 97.7 F L Temperature Source Temporal Temporal Temporal Pulse Rate 75 70 61 Respiratory Rate 22 H 16 14 Respiratory Effort Respiratory Pattern Blood Pressure 122/76 H 94/62 93/66 Blood Pressure Mean 91 72 75 Pulse Ox 97 96 99 Oxygen Delivery Method Room Air Nasal Cannula Nasal Cannula 01/10/24 16:00 01/10/24 17:00 Temperature 98.1 F 98.8 F Temperature Source Temporal Oral Pulse Rate 65 78 Respiratory Rate 18 21 H Respiratory Effort Respiratory Pattern Blood Pressure 106/57 L 135/71 H Blood Pressure Mean 73 92 Pulse Ox 96 97 Oxygen Delivery Method Room Air Room Air Patient's most 2 recent blood pressures have been low. Will have nurse reassess. Positive well nourished and well developed Constitutional Narrative: Initial blood pressure was noted to be low. His blood pressure improved prior to the administration of fluids. General Appearance ED: well developed and NAD; Negative for cyanotic, diaphoretic or pallor HEENT Reports dry mucous membranes HEENT Narrative: Head is atraumatic normocephalic. Ears normal. Nares patent. Posterior pharynx is normal. Uvula midline. No deviation or protrusion. Mouth ED: Yes dry mucous membranes Mouth: dry mucous membranes Eyes PERRL and EOMs intact bilaterally General Eye ED: Negative for pale conjunctiva or scleral icterus Neck no lymphadenopathy, supple and no JVD Chest Wall inspection of chest normal and palpation of chest normal Resp normal respiratory effort and clear to auscultation bilaterally Cardio regular rate, regular rhythm, S1 normal heart sound, S2 normal heart sound and no murmurs GI normal to inspection, nondistended, normoactive bowel sounds, non-tender and no masses; Negative for non-distended or hepatosplenomegaly Inspection: abdominal distention Auscultation: hypoactive bowel sounds Palpation: soft; Negative for tender or guarding Back/Spine no CVA tenderness Extremity Extremity Narrative: Venous stasis dermatitis bilaterally. Patient has a dressing on his right leg. This was the extremity that was infected and reason for recent admission earlier this month. Neuro oriented x3 and CN's II-XII intact bilaterally Neuro Narrative: Patient moves all extremities. Sensorium / Orientation: alert Psych mental status grossly normal Skin No no rashes or lesions noted and No no wounds General Skin Exam: Negative for jaundice or pallor MDM MDM MDM Narrative Medical decision making narrative: Patient recent admission for sepsis and vague complaints will obtain basic blood like assessing white count differential H&H renal function. Now knowing that patient has neuropathy and not uncommon for him to complain of total body pain I presume this is the cause of his symptoms. Lab Data Attestation: I reviewed the patient's lab results. Lab results narrative: CBC is unremarkable. Basic metabolic panel is unremarkable. Lactate is normal. Labs: Laboratory Results - last 24 hr 01/10/24 01/10/24 01/10/24 11:53 12:35 15:40 WBC 8.8 RBC 4.51 L Hgb 14.0 Hct 42.8 MCV 94.9 H MCH 31.0 MCHC 32.7 RDW Std Deviation 50.4 H RDW Coeff of Naz 14.5 Plt Count 235 MPV 10.0 Immature Gran % (Auto) 0.300 Neut % (Auto) 68.6 Lymph % (Auto) 15.9 L [place] % (Auto) 8.2 Eos % (Auto) 6.4 H Baso % (Auto) 0.6 Absolute Neuts (auto) 6.0 Absolute Lymphs (auto) 1.39 Nucleated RBC % 0 Sodium 141 Potassium 3.6 Chloride 107 Carbon Dioxide 27.0 Anion Gap 7 BUN 18 Creatinine 1.03 Estim Creat Clear Calc 77.64 Est GFR (MDRD) Af Amer 91 Est GFR (MDRD) Non-Af 75 BUN/Creatinine Ratio 17.5 Glucose 137 H Lactic Acid 1.5 Calcium 8.7 Urine Color Yellow Urine Clarity Clear Urine pH 5.0 Ur Specific [place] 1.020 Urine Protein Negative Urine Glucose (UA) Normal Urine Ketones Negative Urine Occult Blood Negative Urine Nitrite Negative Urine Bilirubin Negative Urine Urobilinogen Normal Ur Leukocyte Esterase Negative Urine RBC 0 SEEN Urine WBC 0-5 SEEN Ur Squamous Epith Cells 0 SEEN Calcium Oxalate Crystal 1+ Urine Bacteria RARE Hyaline Casts 0-5 SEEN Urine Mucus 1+ Treatment and Re-Evaluation :: Since patient has drop in blood pressure again we will obtain a straight cath urine to assess for infection. Comments:: Most recent blood pressure is 135/71. This is after second liter of normal saline. Plan is to discharge to home. Patient and son were told probably was slightly dehydrated since he is on a strict fluid restriction. His pain is due to his neuropathy. Discharge Plan Triage Chief Complaint: Other, Pain/Inj ED Provider: Rudy Hernandez Dx/Rx/DC Orders Clinical Impression: Acute hypotension, Adult failure to thrive, Unable to ambulate, Neuropathy Instructions: ED Low Blood Pressure, All Causes Prescriptions: No Action Xarelto 20 mg Tablet 20 mg PO DINNER Qty: 0 0RF potassium chloride [Klor-Con M20] 20 mEq Tablet,Er Particles/Crystals 20 meq PO BIDCM Qty: 0 0RF gabapentin 300 mg capsule 300 mg PO TID [facility] 10 billion cell -200 mg capsule, sprinkle 1 cap PO BID atorvastatin 40 mg Tablet 40 mg PO QHS Qty: 0 0RF furosemide 40 mg tablet 40 mg PO BIDCM 30 Days Qty: 60 0RF nystatin [Nyamyc] 100,000 unit/gram Powder 1 applic topical BID Qty: 0 0RF Protocol: *Topical Application Instructions APPLICATION INSTRUCTIONS: groin/abdominal folds menthol-zinc oxide [Calmoseptine] 0.44-20.6 % Ointment 1 applic topical BID Qty: 0 0RF Protocol: *Topical Application Instructions APPLICATION INSTRUCTIONS: buttocks losartan 100 mg Tablet 125 mg PO DAILY acetaminophen 500 mg Tablet 1,000 mg PO Q8 PRN (Reason: pain) linezolid 600 mg tablet 600 mg PO Q12H Qty: 14 0RF ciprofloxacin HCl [Cipro] 500 mg tablet 500 mg PO BID Qty: 14 0RF oxycodone 5 mg Tablet 5 mg PO Q4H PRN PRN (Reason: Pain Score 6-10) 1 Days Qty: 6 0RF Primary Care Provider: Shanda Jensen NP Referrals: Shanda Jensen NP, [facility] [Primary Care Provider] - 5-7 Days Activity Restrictions/Additional Instructions: Need to monitor patient's I&O's closely for the next several days. He was slightly volume depleted intravascularly. He responded to fluids. As far as his pain it is due to his neuropathy. Print Language: [place] Disposition Disposition: Home, Self Care
[2024-01-10 15:44] LABS: Squamous Epithelial Cells - UA 0 SEEN /hpf (0-5)
[2024-01-10 16:01] LABS: Color, Urine Yellow (Yellow); Glucose, Dipstick Normal (Normal); Ketone-Dipstick Negative (Negative); Leukocyte Esterase-Dipstick Negative /ul (Negative); Nitrite-Dipstick Negative (Negative); Occult Blood-Urine Negative /ul (Negative); Protein-Dipstick Negative (Negative); Urine Bilirubin Dipstick Negative (Negative); Urine Clarity Clear (Clear); Urine Urobilinogen Normal (Normal)
[2024-01-10 16:09] LABS: Hyaline Cast 0-5 SEEN /lpf (0-5)
[2024-01-10 16:13] LABS: Bacteria RARE /hpf (None Seen); Calcium Oxalate Crystals Ur 1+ /hpf (<or=2+); Mucous, Urine 1+ /hpf (<or=2+); Red Blood Cells-Urine 0 SEEN /hpf (0-5); White Blood Cells 0-5 SEEN /hpf (0-5)
== END 2024-01-10 20:19 | disposition home or self-care (01) ==
PROVIDERS: Emergency Provider Emergency Medicine; PCP Nurse Practitioner Family; Referring Provider Emergency Medicine; Visit Provider Emergency Medicine
DX: G62.9 Polyneuropathy, unspecified (principal); I11.0 Hypertensive heart disease with heart failure; I50.9 Heart failure, unspecified; E78.5 Hyperlipidemia, unspecified; R62.7 Adult failure to thrive; I25.10 Atherosclerotic heart disease of native coronary artery without angina pectoris; I95.9 Hypotension, unspecified; Z87.891 Personal history of nicotine dependence; R26.2 Difficulty in walking, not elsewhere classified; Z86.73 Personal history of transient ischemic attack (TIA), and cerebral infarction without residual deficits; G47.33 Obstructive sleep apnea (adult) (pediatric); Z99.89 Dependence on other enabling machines and devices; Z79.01 Long term (current) use of anticoagulants; Z79.899 Other long term (current) drug therapy; Z95.5 Presence of coronary angioplasty implant and graft
CPT/HCPCS: 80048; 81001; 83605; 85025; 93005; 96360; 96361; 99285; J7030; P9612; A4216

== ENCOUNTER 2024-01-25 21:16 | Inpatient (IN) | payer MEDICARE, SELFPAY ==
[2024-01-25 21:22] VITALS: BP 110/66; PULSE 78; RESP 22; TEMP 37.1; O2SAT 97; BMI 42.3
--- NOTE | 2024-01-25 21:33 | EDS_ITS ---
HPI History of Present Illness Chief Complaint: General Illness [facility] Medical History Morbid obesity with BMI of 40.0-44.9, adult History of CVA (cerebrovascular accident) Atrial fibrillation Bilateral leg edema Lipodermatosclerosis of both lower extremities Venous insufficiency (chronic) (peripheral) History of stroke History of CAD (coronary artery disease) History of atrial fibrillation Neuropathic pain Obesity Essential (primary) hypertension Hemiplegia of right dominant side as late effect of cerebral infarction Right rotator cuff tear Right hemiplegia Congestive heart failure (CHF) Ambulatory dysfunction Generalized weakness Tinea cruris Chronic venous stasis dermatitis Lymphedema Chronic anticoagulation Bilateral cellulitis of lower leg Candidiasis of skin Adult failure to thrive Hemiplegia affecting right dominant side Anticoagulant long-term use Pneumonia Cellulitis Atrial fibrillation CVA (cerebral vascular accident) Rotator cuff tear arthropathy of right shoulder CPAP (continuous positive airway pressure) dependence Sleep apnea FTT (failure to thrive) in adult Lymphedema of both lower extremities Chronic venous stasis dermatitis of both lower extremities Low back pain Hypertension Atrial fibrillation Debility Pain of left great toe Pain in right lower leg Hyperglycemia Leg pain Toe ulcer Lymphedema Non-pressure chronic ulcer of other part of right foot with necrosis of muscle Cellulitis of right lower limb Deep venous thrombosis 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 layer exposed Venous insufficiency Skin ulcer of left great toe with fat layer exposed Dyspnea on minimal exertion Anomalous origin of coronary artery Obesity New onset atrial fibrillation (03/24/20) Essential (primary) hypertension Pain of left lower extremity due to injury Former smoker Traumatic hematoma of left lower leg Arthritis Benign neoplasm of middle ear, nasal cavity and accessory sinuses ANDREE (obstructive sleep apnea) Cervical disc disease BPH (benign prostatic hyperplasia) GERD (gastroesophageal reflux disease) Hyperlipidemia Atherosclerotic heart disease of [place] coronary artery without angina pectoris Cardiac murmur, unspecified Home Medications ?Medication ?Instructions ?Recorded ?Last Taken ?Type rivaroxaban 20 mg tablet (Xarelto) 20 mg PO DINNER BLOOD THINNER #0 12/28/21 09/01/23 Rx tabs potassium chloride 20 mEq 20 meq PO BIDCM potassium #0 tabs 03/29/23 09/01/23 Rx tablet,extended release(part/cryst) (Klor-Con M) Lactobacil rhamnosus GG 10 billion 1 cap PO BID gut 09/02/23 09/01/23 History cell-inulin 200 mg sprinkle capsule ([facility]) gabapentin 300 mg capsule 300 mg PO TID neuropathy 09/02/23 09/01/23 History atorvastatin 40 mg tablet 40 mg PO QHS choplesterol #0 tabs 09/07/23 Unknown Rx furosemide 40 mg tablet 40 mg PO BIDCM diuretic 30 days 09/07/23 09/01/23 Rx #60 tabs menthol 0.44 %-zinc oxide 20.6 % 1 applic topical BID #0 grams 10/25/23 Unknown Rx topical ointment (Calmoseptine) nystatin 100,000 unit/gram topical 1 applic topical BID #0 grams 10/25/23 Unknown Rx powder (Nyamyc) losartan 100 mg tablet 125 mg PO DAILY blood pressure 12/25/23 Unknown History acetaminophen 500 mg tablet 1,000 mg PO Q8 PRN pain 12/27/23 Unknown History oxycodone 5 mg tablet 5 mg PO Q4H PRN PRN Pain Score 01/01/24 Unknown Rx 6-10 1 day #6 tabs Allergy/AdvReac Type Severity Reaction Status Date / Time diphenhydramine (From AdvReac Mild Abd Verified 01/25/24 21:21 Benadryl) cramps/diarrhea ibuprofen (From Motrin) AdvReac Nausea Verified 01/25/24 21:21 Family History Mother CAD (coronary artery disease) Hypertension History of cardiac radiofrequency ablation Sister Hypertension Other Arthritis Surgical History History of coronary artery stent placement H/O cervical spine surgery History of herniorrhaphy History of carpal tunnel release History of transurethral resection of prostate History of coronary artery stent placement (11/29/10) History of bursectomy History of removal of cyst History of carpal tunnel surgery History of fusion of cervical spine Social History household members: other details: Older son Naeem. Smoking Status: Former smoker alcohol intake: never substance use type: does not use EXAM Physical Exam Const Vital Signs: 01/25/24 21:22 01/25/24 21:28 09/27/24 22:26 Temperature 98.7 F 98.9 F Temperature Source Oral Oral Pulse Rate 78 68 Respiratory Rate 22 H 17 Respiratory Effort Normal Non-Labored Respiratory Pattern Normal Blood Pressure 110/66 144/102 H Blood Pressure Mean 80 116 Pulse Ox 97 99 Oxygen Delivery Method Room Air Room Air 01/25/24 23:00 01/26/24 00:00 Temperature 98.7 F 98.7 F Temperature Source Oral Oral Pulse Rate 71 81 Respiratory Rate 13 14 Respiratory Effort Respiratory Pattern Blood Pressure 131/85 H 130/81 H Blood Pressure Mean 100 97 Pulse Ox 97 95 Oxygen Delivery Method Room Air Room Air [facility] [place] Medical decision making narrative: HISTORY OF PRESENT ILLNESS: 73-year-old male presents with bilateral lower extremity redness concern for infection, reports increased weakness. REVIEW OF SYSTEMS: Pertinent positives: Leg redness, weakness Pertinent negatives: Vomiting PHYSICAL EXAM: Nursing triage notes reviewed, Vital signs reviewed Constitutional: please see mdm HENT: MMM Eyes: Pupils equal round and reactive to light, Extraocular muscles intact Neck: No stridor, no JVD, full neck ROM Lungs: Clear to auscultation, No wheezing or rales. No increased work of breathing, no conversational dyspnea, no accessory muscle use, no nasal flaring. No respiratory distress noted Heart: Regular rate and rhythm, No murmurs, No rubs and No gallops, 2+ distal pulses (radial, femoral, posterior tibial) in all extremities Abdomen: Soft, there is no tenderness, rigidity, rebound or guarding, no obvious peritoneal signs, no palpable pulsatile abdominal masses, no auscultated abdominal bruit : No CVAT Extremities: 2+ pitting edema and chronic venous stasis/lymphedematous changes noted to bilateral lower extremities Neuro: No new focal neurological deficits, cranial nerves II through XII intact, 4/5 strength in left upper and lower extremities, 3-5 strength in right upper and lower extremities consistent with prior stroke and right hemiplegia, intact sensation to light touch in all extremities, 2+ reflexes bilateral patella tendons. Skin: Erythematous changes to bilateral lower extremities, warmth noted, no palpable abscess crepitus or bullae. MEDICAL DECISION MAKING: Chief Complaint: redness, diffuse weaknessBilateral lower extremity External records reviewed: Reviewed prior ED notes, reviewed prior hospital notes, reviewed medications, allergies Factors affecting care: Varicose veins, cellulitis, adult failure to thrive, A- fib on Xarelto Social determinants of health: none History obtained from others: Family Consults: Internal medicine MDM Narrative: The patient was hemodynamically stable, afebrile and nontoxic-appearing. Exam with lymphedematous changes versus cellulitis to bilateral lower extremities. There was pulses that are symmetric in bilateral lower extremities. No focal cardiopulmonary abnormalities. Baseline right-sided weakness. I considered the following differential diagnosis: Cellulitis, ACS, anemia, arrhythmia, sepsis, intracranial hemorrhage, mass or stroke I obtained a broad lab and imaging workup to further elucidate etiology of patient complaints. ALL IMAGES (IF OBTAINED) HAVE BEEN PERSONALLY REVIEWED AND INTERPRETED BY MYSELF. CBC showed no leukocytosis suggestive stemming inflammation Lactate is wnl indicating no end-organ hypoperfusion and/or hypoxia. LFTs show no evidence of hepatobiliary pathology. Urinalysis shows no evidence of urinary inflammation suggestive of UTI EKG with rate controlled atrial fibrillation, frequent PVCs, otherwise normal intervals, no obvious STEMI High-sensitivity troponin is negative, no evidence of myocardial ischemia The synthesis of the patient's history, physical exam, labs images suggest no acute life or limb threatening etiology. I suspect his symptoms are related to possibly cellulitis but more likely lymphedema. Given he cannot ambulate his weakness and likely need for placement [facility] The patient and/or family, caregivers express understanding. The patient and/or family, caregivers agrees with the plan. Shared decision making: I will have a discussion with the patient and or visitors regarding ris k/benefits of further testing or admission. They will be made aware of of the risk/benefits inherent in this decision they will be given the opportunity to voice understanding. Total critical care time today provided was at least 0 minutes. This excludes separately billable procedures. Critical care time (if documented) is secondary to the patient having high probability of clinically significant/life threatening deterioration in the patient's condition which required my urgent intervention. Impression: 1. Adult failure to thrive 2. Bilateral cellulitis 3. Inability to ambulate Dispo: Admit to MedSurg observation This note was generated with [employer] dictation software. It may contain incorrect words, spelling, and punctuation that were not noted in review of the chart prior to signing. Lab Data Labs: Laboratory Results - last 24 hr 01/25/24 01/25/24 22:15 22:34 WBC 9.0 RBC 4.60 Hgb 14.0 Hct 43.4 MCV 94.3 H MCH 30.4 MCHC 32.3 RDW Std Deviation 50.6 H RDW Coeff of Naz 14.7 H Plt Count 206 MPV 9.4 Sodium 142 Potassium 3.5 Chloride 107 Carbon Dioxide 31.0 Anion Gap 4 L BUN 15 Creatinine 1.14 Estim Creat Clear Calc 69.06 Est GFR (MDRD) Af Amer 81 Est GFR (MDRD) Non-Af 67 BUN/Creatinine Ratio 13.2 Glucose 107 H Lactic Acid 1.3 Calcium 9.1 Total Bilirubin 0.90 AST 26 ALT 44 Alkaline Phosphatase 102 Troponin I High Sens 10 Total Protein 7.5 Albumin 3.3 Globulin 4.2 Albumin/Globulin Ratio 0.8 L Urine Color Yellow Urine Clarity Clear Urine pH 6.0 Ur Specific [place] 1.020 Urine Protein Negative Urine Glucose (UA) Normal Urine Ketones Negative Urine Occult Blood Negative Urine Nitrite Negative Urine Bilirubin Negative Urine Urobilinogen Normal Ur Leukocyte Esterase Negative Urine RBC 0 SEEN Urine WBC 0-5 SEEN Ur Squamous Epith Cells 0 SEEN Urine Bacteria RARE Urine Mucus 0 SEEN Radiography Diagnostic Testing: Clinical Impression(s) from Imaging Studies Brain CT 01/25/24 21:53 IMPRESSION: 1. No acute intracranial abnormality. There has been no change from the reference exam. 2. Stable senescent change with small vessel ischemia. Electronically Signed: Loy Joshi MD at 23:47 EDT Reading Location ID and State: [facility] / [place] Tel , Service support , Discharge Plan Triage Chief Complaint: General Illness ED Provider: Sylvain Fleming Dx/Rx/DC Orders Prescriptions: No Action Xarelto 20 mg Tablet 20 mg PO DINNER Qty: 0 0RF potassium chloride [Klor-Con M20] 20 mEq Tablet,Er Particles/Crystals 20 meq PO BIDCM Qty: 0 0RF gabapentin 300 mg capsule 300 mg PO TID [facility] 10 billion cell -200 mg capsule, sprinkle 1 cap PO BID atorvastatin 40 mg Tablet 40 mg PO QHS Qty: 0 0RF furosemide 40 mg tablet 40 mg PO BIDCM 30 Days Qty: 60 0RF nystatin [Nyamyc] 100,000 unit/gram Powder 1 applic topical BID Qty: 0 0RF Protocol: *Topical Application Instructions APPLICATION INSTRUCTIONS: groin/abdominal folds menthol-zinc oxide [Calmoseptine] 0.44-20.6 % Ointment 1 applic topical BID Qty: 0 0RF Protocol: *Topical Application Instructions APPLICATION INSTRUCTIONS: buttocks losartan 100 mg Tablet 125 mg PO DAILY acetaminophen 500 mg Tablet 1,000 mg PO Q8 PRN (Reason: pain) oxycodone 5 mg Tablet 5 mg PO Q4H PRN PRN (Reason: Pain Score 6-10) 1 Days Qty: 6 0RF Primary Care Provider: Shanda Jensen NP Referrals: Shanda Jensen NP, [facility] [Primary Care Provider] - Print Language: British
--- NOTE | 2024-01-25 21:53 | EKG12_ITS ---
Test Reason : WEAKNESS Blood Pressure : / mmHG Vent. Rate : 058 BPM Atrial Rate : 000 BPM P-R Int : 000 ms QRS Dur : 098 ms QT Int : 396 ms P-R-T Axes : 000 011 159 degrees QTc Int : 388 ms Atrial fibrillation with slow ventricular response with premature ventricular or aberrantly conducted complexes Anterior infarct , age undetermined ST & T wave abnormality, consider lateral ischemia Abnormal ECG Confirmed by DAVE GLASS, DEZ ([id number]), supervising editor news reel HELEN JAMESON ([id number]) on 01/29/2024 2:03:56 PM Referred By: Confirmed By:DEZ ACOSTA MD
--- NOTE | 2024-01-25 21:53 | CT_ITS ---
EXAM: CT HEAD WITHOUT INTRAVENOUS CONTRAST CLINICAL INDICATION: WESLEY TECHNIQUE: Multiple axial images were obtained of the head without intravenous contrast. This CT exam was performed using one or more of the following dose reduction techniques: automated exposure control, adjustment of the mA and/or kV according to patient size, and/or use of iterative reconstruction technique. COMPARISON: 03/23/2023 FINDINGS: BRAIN AND EXTRA-AXIAL SPACES: There is enlargement of ventricular system and cortical sulci. There is hypoattenuation in the periventricular white matter. No intra- or extra-axial hemorrhage. No evidence of acute infarct. No intracranial mass or mass effect. There is preservation of the otero/white matter interface. Posterior fossa structures are unremarkable. Basal cisterns are patent. BONES/JOINTS: Unremarkable. No discrete lytic or blastic abnormalities. SINUSES: There are postsurgical changes in the left maxillary sinus and left ethmoid air cells. MASTOID AIR CELLS: Unremarkable. Clear. ORBITS: Visualized globes, extraocular muscles, optic nerves and retrobulbar fat appear unremarkable. CT/Brain/Head without Contrast IMPRESSION: 1. No acute intracranial abnormality. There has been no change from the reference exam. 2. Stable senescent change with small vessel ischemia. Electronically Signed: Loy Joshi MD at 23:47 EDT ,
[2024-01-25 22:25] LABS: Hematocrit 43.4 % (40-54); Mean Corp Hgb Conc 32.3 g/dL (32-36); Mean Corpuscular Hgb 30.4 pg (27.0-32.0); Mean Corpuscular Volume 94.3 fL (80-94); Mean Platelet Vol. 9.4 fl (6.2-12.0); Platelet Count 206 K/mm3 (150-450); RBC Distribution Width CV 14.7 % (11.6-14.6); RBC Distribution Width SD 50.6 fl (35.1-43.9)
[2024-01-25 22:26] VITALS: BP 144/102; PULSE 68; RESP 17; TEMP 37.2; O2SAT 99
[2024-01-25] MEDS: Vancomycin HCl 1,500 MG in 0.9% Normal Saline (500mL Bag) 500 ML 250 MG IV (22:36)
[2024-01-25] MEDS: 0.9% Normal Saline (500mL Bag) 500 ML 1000 ML IV (22:36)
[2024-01-25 22:43] LABS: ALB/GLOB Ratio 0.8 RATIO (0.9-2.4); AST(SGOT) 26 U/L (15-37); Alanine Aminotransfer ALT/SGPT 44 U/L (16-61); Albumin, Serum 3.3 g/dL (3.2-5.0); Alkaline Phosphatase 102 U/L (45-117); Anion Gap 4 (5-15); BUN 15 mg/dL (7-18); BUN/Creat Ratio 13.2 RATIO (10-20); Calcium,Total 9.1 mg/dL (8.5-10.1); Chloride 107 mmol/L (98-107); Creatinine, Serum 1.14 mg/dL (0.70-1.30); EST Glomerular Filtration Rate 67 mL/min (>60); Est Glom Filt Rate - Afr Amer 81 mL/min (>60); Estimated Creatinine Clearance 69.06 ml/min; Globulin 4.2 g/dL (2.2-4.2); Glucose 107 mg/dL (74-106); Potassium 3.5 mmol/L (3.5-5.1); Protein, Total 7.5 g/dL (6.4-8.2); Sodium Level 142 mmol/L (136-145); Troponin-I HS 10 pg/mL (3.0-78.0)
[2024-01-25 22:45] LABS: Mucous, Urine 0 SEEN /hpf (<or=2+); Red Blood Cells-Urine 0 SEEN /hpf (0-5); Squamous Epithelial Cells - UA 0 SEEN /hpf (0-5)
[2024-01-25 22:49] LABS: Lactic Acid 1.3 mmol/L (0.4-1.9)
[2024-01-25 22:50] LABS: Color, Urine Yellow (Yellow); Glucose, Dipstick Normal (Normal); Ketone-Dipstick Negative (Negative); Leukocyte Esterase-Dipstick Negative /ul (Negative); Nitrite-Dipstick Negative (Negative); Occult Blood-Urine Negative /ul (Negative); Protein-Dipstick Negative (Negative); Urine Bilirubin Dipstick Negative (Negative); Urine Clarity Clear (Clear); Urine Urobilinogen Normal (Normal)
[2024-01-25 22:57] LABS: Bacteria RARE /hpf (None Seen); White Blood Cells 0-5 SEEN /hpf (0-5)
[2024-01-25 23:00] VITALS: BP 131/85; PULSE 71; RESP 13; TEMP 37.1; O2SAT 97
[2024-01-26] VITALS (8 sets, daily range): BP systolic 116–141; BP diastolic 73–93; PULSE 65–92; RESP 14–20; TEMP 36.4–37.1; O2SAT 95–99; BMI 41.7; BMI 41.5
[2024-01-26] MEDS: Morphine 4 MG/ML Syringe IV (00:13)
--- NOTE | 2024-01-26 00:21 | HP.PCM.HOS_ITS ---
[facility] General Date of Admission: 01/26/24 Date of Service: 01/26/24 Chief Complaint: Bilateral LE Redness and Swelling. [facility] Narrative TURNER ROBERSON, is a 73 M with a past medical history of essential hypertension, hyperlipidemia, morbid obesity; with BMI of 42.3 this admission, ANDREE; noncompliant with CPAP, history of tobacco abuse, chronic atrial fibrillation; on Xarelto, history of CVA; with residual Right-sided weakness, history of CAD; s/p stent (2010), chronic RLE wound; after fall, neuropathic pain, history of CHF, chronic venous stasis, chronic venous insufficiency, history of adult [id number], cervical DDD; with history of c-spine fusion, history of carpal tunnel surgery, BPH; s/p TURP, GERD OA; with Low Back Pain and a strong pattern of serial readmission almost every month for suspected cellulitis with bilateral lower extremity redness and swelling with patient most recently admitted here from December 25, 2023 to January 01, 2024 for treatment of RLE Cellulitis with Sepsis and Metabolic Encephalopathy; with patient then discharged to the [facility] to complete a 14 day course of a combination of oral Cipro and oral Linezolid who once again re-presents to [facility] ER complaining of bilateral lower extremity redness and edema. Mr. Roberson was recently discharged from the [facility] and his son is apparently having difficulty caring for him and he informed the ER physician he did not feel comfortable taking him home because of ongoing chronic generalized weakness, with the hospitalist service then contacted to initiate readmission. The patient reports his son is gracious and kind but he works during the day and is not available to help him with his activities of daily living with patient now so weak he cannot get out of bed by himself or get up out of a chair by himself. He states that his insurance company prematurely terminated his recent F stay even though he was not ready to go home and be able to function at least semi-independently. There is no report of fever, chills, nausea, vomiting, diarrhea, constipation, chest pain or SOB but he does admits to chronic pain in his legs that is made worse with activity. In the ER the physician diagnosed this patient with Bilateral LE Cellulitis and he then started him on IV Vancomycin and IV Cipro complicated by clinical evidence of Generalized Weakness with patient's son willing but unable to provide the level of care for him at home that he needs causing yet another cycle in this ongoing saga of serial readmission and he was then admitted to the general medical floor for ongoing care for a stay that is expected to extend beyond 2 midnights. [facility] Medical History (Updated 01/26/24 @ 01:[address] Bari Resendez, DO) Generalized weakness Morbid obesity with BMI of 40.0-44.9, adult History of CVA (cerebrovascular accident) Lipodermatosclerosis of both lower extremities Venous insufficiency (chronic) (peripheral) Atrial fibrillation Bilateral leg edema History of stroke History of CAD (coronary artery disease) History of atrial fibrillation Neuropathic pain Obesity Essential (primary) hypertension Hemiplegia of right dominant side as late effect of cerebral infarction Right rotator cuff tear Right hemiplegia Congestive heart failure (CHF) Ambulatory dysfunction Tinea cruris Chronic venous stasis dermatitis Lymphedema Chronic anticoagulation Bilateral cellulitis of lower leg Candidiasis of skin Adult failure to thrive Hemiplegia affecting right dominant side Anticoagulant long-term use Pneumonia Cellulitis Atrial fibrillation CVA (cerebral vascular accident) Rotator cuff tear arthropathy of right shoulder CPAP (continuous positive airway pressure) dependence Sleep apnea FTT (failure to thrive) in adult Lymphedema of both lower extremities Chronic venous stasis dermatitis of both lower extremities Low back pain Hypertension Atrial fibrillation Debility Pain of left great toe Pain in right lower leg Hyperglycemia Leg pain Toe ulcer Lymphedema Non-pressure chronic ulcer of other part of right foot with necrosis of muscle Cellulitis of right lower limb Deep venous thrombosis 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 layer exposed Venous insufficiency Skin ulcer of left great toe with fat layer exposed Dyspnea on minimal exertion Anomalous origin of coronary artery Obesity New onset atrial fibrillation (03/24/20) Essential (primary) hypertension Pain of left lower extremity due to injury Former smoker Traumatic hematoma of left lower leg Arthritis Benign neoplasm of middle ear, nasal cavity and accessory sinuses ANDREE (obstructive sleep apnea) Cervical disc disease BPH (benign prostatic hyperplasia) GERD (gastroesophageal reflux disease) Hyperlipidemia Atherosclerotic heart disease of [place] coronary artery without angina pectoris Cardiac murmur, unspecified Home Medications ?Medication ?Instructions ?Recorded ?Last Taken ?Type rivaroxaban 20 mg tablet (Xarelto) 20 mg PO DINNER BLOOD THINNER #0 12/28/21 01/25/24 Rx tabs potassium chloride 20 mEq 20 meq PO BIDCM potassium #0 tabs 03/29/23 01/25/24 Rx tablet,extended release(part/cryst) (Klor-Con M) Lactobacil rhamnosus GG 10 billion 1 cap PO BID gut 09/02/23 01/25/24 History cell-inulin 200 mg sprinkle capsule ([facility] Last Size [facility]) gabapentin 300 mg capsule 300 mg PO TID neuropathy 09/02/23 01/25/24 History atorvastatin 40 mg tablet 40 mg PO QHS choplesterol #0 tabs 09/07/23 01/25/24 14:00 Rx 40 mg furosemide 40 mg tablet 40 mg PO BIDCM diuretic 30 days 09/07/23 01/25/24 14:00 Rx #60 tabs menthol 0.44 %-zinc oxide 20.6 % 1 applic topical BID #0 grams 10/25/23 01/25/24 Rx topical ointment (Calmoseptine) nystatin 100,000 unit/gram topical 1 applic topical BID #0 grams 10/25/23 01/25/24 Rx powder ([facility]) losartan 100 mg tablet 125 mg PO DAILY blood pressure 12/25/23 01/25/24 History acetaminophen 500 mg tablet 1,000 mg PO Q8 PRN pain 12/27/23 01/25/24 17:00 History 1,000 mg oxycodone 5 mg tablet 5 mg PO Q4H PRN PRN Pain Score 01/01/24 01/25/24 Rx 6-10 1 day #6 tabs Allergy/AdvReac Type Severity Reaction Status Date / Time diphenhydramine (From AdvReac Mild Abd Verified 01/25/24 21:21 Benadryl) cramps/diarrhea ibuprofen (From Motrin) AdvReac Nausea Verified 01/25/24 21:21 Family History Mother CAD (coronary artery disease) Hypertension History of cardiac radiofrequency ablation Sister Hypertension Other Arthritis Surgical History History of coronary artery stent placement H/O cervical spine surgery History of herniorrhaphy History of carpal tunnel release History of transurethral resection of prostate History of coronary artery stent placement (11/29/10) History of bursectomy History of removal of cyst History of carpal tunnel surgery History of fusion of cervical spine Social History household members: other details: Older son Naeem. Smoking Status: Former smoker alcohol intake: never substance use type: does not use ROS ROS Narrative Review of Systems: Constitutional: Patient denies fever or chills. Eyes: Patient denies changes in vision or discharge from eyes. ENT: Patient denies runny nose, sore throat or ear pain. Resp: Patient denies SOB and cough. CV: Patient denies chest pain, palpitations or heart racing. GI: Patient denies abdominal pain, nausea, vomiting or diarrhea. : Patient denies dysuria or hematuria. MSK: Patient admits to chronic pain, redness and swelling of his legs made worse with movement as per HPI. Psych: Patient denies symptoms of uncontrolled depression or anxiety. Neuro: Patient denies headache, paresthesias or focal neurologic deficits. Allergy: Patient denies jaundice or urticaria. Hematology: Patient is on Xarelto but he denies significant bleeding. Endocrinology: Patient denies polyuria, polydipsia and polyphagia. 14 point ROS otherwise negative except for positives noted above in HPI. Vital Signs Vital Signs Vital Signs: 01/25/24 21:22 01/25/24 21:28 01/25/24 22:26 Temperature 98.7 F 98.9 F Temperature Source Oral Oral Pulse Rate 78 68 Respiratory Rate 22 H 17 Respiratory Effort Normal Non-Labored Respiratory Pattern Normal Blood Pressure 110/66 144/102 H Blood Pressure Mean 80 116 Pulse Ox 97 99 Oxygen Delivery Method Room Air Room Air 01/25/24 23:00 01/26/24 00:00 01/26/24 00:12 Temperature 98.7 F 98.7 F 98.7 F Temperature Source Oral Oral Pulse Rate 71 81 90 Respiratory Rate 13 14 19 H Respiratory Effort Respiratory Pattern Blood Pressure 131/85 H 130/81 H 141/93 H Blood Pressure Mean 100 97 109 Pulse Ox 97 95 95 Oxygen Delivery Method Room Air Room Air Weight Weight: 262 lb 5.601 oz Body Mass Index (BMI) 42.3 Physical Exam Const alert, oriented x3 and no apparent distress Constitutional Narrative: Morbidly obese and chronically ill in appearance. General Appearance: cooperative HEENT normocephalic, head/scalp atraumatic, hearing grossly normal bilaterally and moist oral mucous membranes Eyes PERRL and EOMs intact bilaterally Neck no lymphadenopathy and supple Resp normal respiratory effort, no retractions, no use of accessory muscles and clear to auscultation bilaterally Cardio regular rate and regular rhythm GI normal to inspection, nondistended, normoactive bowel sounds, soft to palpation, non-tender and non-distended GI Narrative: Morbidly obese. Extremity Extremity Narrative: 2+ symmetrical bilateral LE edema with erythema superimposed on chronic venous stasis with good pulses and no signs of vascular compromise. Neuro oriented x3, CN's II-XII intact bilaterally, moves all extremities and no focal motor deficits Sensorium / Orientation: awake, alert, oriented to person, oriented to place and oriented to time Speech: speech normal Psych affect normal Results Medical Records Data Attestation: I reviewed the patient's medical records Lab / Micro Data Attestation: I reviewed the patient's lab results. 01/25/24 22:15 01/25/24 22:15 Labs: Laboratory Results - last 24 hr 01/25/24 22:15: WBC 9.0, RBC 4.60, Hgb 14.0, Hct 43.4, MCV 94.3 H, MCH 30.4, MCHC 32.3, RDW Std Deviation 50.6 H, RDW Coeff of Naz 14.7 H, Plt Count 206, MPV 9.4, Sodium 142, Potassium 3.5, Chloride 107, Carbon Dioxide 31.0, Anion Gap 4 L , BUN 15, Creatinine 1.14, Estim Creat Clear Calc 69.06, Est GFR (MDRD) Af Amer 81, Est GFR (MDRD) Non-Af 67, BUN/Creatinine Ratio 13.2, Glucose 107 H, Lactic Acid 1.3, Calcium 9.1, Total Bilirubin 0.90, AST 26, ALT 44, Alkaline Phosphatase 102, Troponin I High Sens 10, Total Protein 7.5, Albumin 3.3, Globulin 4.2, Albumin/Globulin Ratio 0.8 L 01/25/24 22:34: Urine Color Yellow, Urine Clarity Clear, Urine pH 6.0, Ur Specific Douglas 1.020, Urine Protein Negative, Urine Glucose (UA) Normal, Urine Ketones Negative, Urine Occult Blood Negative, Urine Nitrite Negative, Urine Bilirubin Negative, Urine Urobilinogen Normal, Ur Leukocyte Esterase Negative, Urine RBC 0 SEEN, Urine WBC 0-5 SEEN, Ur Squamous Epith Cells 0 SEEN, Urine Bacteria RARE, Urine Mucus 0 SEEN Imaging Radiology Impression Brain CT 01/25/24 21:53 IMPRESSION: 1. No acute intracranial abnormality. There has been no change from the reference exam. 2. Stable senescent change with small vessel ischemia. Electronically Signed: Loy Joshi MD at 23:47 EDT , Assessment & Plan Assessment/Plan (1) Cellulitis: QUALIFIERS: Laterality: unspecified laterality Site of cellulitis: extremity Site of cellulitis of extremity: lower extremity Q ualified Code(s): L03.119 - Cellulitis of unspecified part of limb (2) Morbid obesity with BMI of 40.0-44.9, adult: (3) Generalized weakness: (4) Deterioration in ability to walk: (5) Debility: (6) History of CVA (cerebrovascular accident): (7) Lipodermatosclerosis of both lower extremities: (8) Venous insufficiency (chronic) (peripheral): PLAN: Plan 1. Bilateral lower extremity cellulitis; recurrent with very strong pattern of serial readmission in the setting of chronic venous stasis with chronic venous insufficiency and lipodermatosclerosis of both lower extremities - Admit to general medical floor. Continue empiric IV vancomycin begun by ER physician and add IV Cipro to approximate his previous regimen. Patient needs to be set up with outpatient wound care to manage his complex medical condition. Give Tylenol as needed for [id number] (level 1-5/10) pain or fever. Give morphine IV as needed for severe (level 6-10/10) pain. 2. Morbid obesity with a BMI of 42.3 this admission along with clinical evidence of generalized weakness with debility and ambulatory dysfunction complicating #1 - This patient's son does not feel comfortable taking his father home as he is having difficulty caring for him resulting in him continuously being brought back to the hospital for similar complaints. Therefore, every effort should be made to obtain permanent ECF placement to break this destructive cycle and inefficient use of hospital resources. Finally, PT/OT and case management will be consulted to see this patient on rounds in the a.m. for further recommendations with help appreciated in advance. 3. Recent admission here from December 25, 2023 to January 01, 2024 for treatment of Right lower extremity cellulitis with sepsis and encephalopathy setting the backdrop for #1 & #2 - Noted. 4. Chronic atrial fibrillation; on Xarelto - Resume Xarelto as previous. 5. Essential hypertension - Continue home regimen as previous. 6. Hyperlipidemia - Resume statin. 7. History of tobacco abuse - Noted. 8. History of CAD; s/p stent (2010) - Stable. 9. History of CHF - Noted. Check BNP. 10. Cervical DDD; with history of c-spine fusion - Stable. 11. History of carpal tunnel surgery - Noted. 12. BPH; s/p TURP - Stable. 13. GERD - Noted with patient not currently on PPI or H2-jess. 14. OA; with Low Back Pain - Give Tylenol prn. 15. DVT prophylaxis - Patient already on Xarelto for #4 which will be continued. Total time: Approximately 55 minutes. Charges/Coding Visit Charges Inpatient E&M: 38055 Init Hosp L2
[2024-01-26] MEDS: 0.9% Normal Saline (1000mL) 1,000 ML 30 ML IV (02:09)
--- NOTE | 2024-01-26 02:14 | PCM.RX.CS ---
Consult Antibiotic Management Pharmacy has been consulted to manage selected antibiotic: Vancomycin Type of Intervention Type of Consult: New start Suspected Infection Suspected Infection: Skin/Soft tissue Labs Labs: Sodium 142 mmol/L (136-145) 01/25/24 22:15 Potassium 3.5 mmol/L (3.5-5.1) 01/25/24 22:15 Chloride 107 mmol/L (98-107) 01/25/24 22:15 Carbon Dioxide 31.0 mmol/L (21.0-32.0) 01/25/24 22:15 Anion Gap 4 (5-15) L 01/25/24 22:15 BUN 15 mg/dL (7-18) 01/25/24 22:15 Creatinine 1.14 mg/dL (0.70-1.30) 01/25/24 22:15 Est GFR (MDRD) Af Amer 81 mL/min (>60) 01/25/24 22:15 Est GFR (MDRD) Non-Af 67 mL/min (>60) 01/25/24 22:15 BUN/Creatinine Ratio 13.2 RATIO (10-20) 01/25/24 22:15 Glucose 107 mg/dL (74-106) H 01/25/24 22:15 Pharmacy Plan for Drug Dosing Pharmacy Plan for Drug Dosing: NEW START IV VANCOMYCIN Consulting Physician: Resendez Indication: cellulitis Goal Trough: 15-20 mg/dl SrCr: 1.14 mg/dL CrCl: 69 mL/min Comments: ER dose of 1500mg given 01/24 @ 2236 Vancomycin Dose: Will start 1500mg Q12 (01/25 @ 1030) and get a trough prior to 4th total dose per policy. Pending Level: 01/27/24 @ 1000 Pharmacy Service will continue to monitor and adjust dosing as required.
[2024-01-26 02:40] LABS: BNP,B-Type NATRIURETIC PEPTIDE 62.2 pg/mL (0-100)
[2024-01-26] MEDS: Gabapentin 300 MG Capsule PO ×2 (05:44→21:22)
[2024-01-26 06:29] LABS: Absolute Lymphocyte Count 1.45 X10^3/uL (0.83-4.51); Absolute Neutrophil Count 7.1 X10^3/uL (2.0-7.7); Basophil# 0.04 X10^3/uL; Basophil% 0.4 % (0-1); Eosinophil# 0.58 X10^3/uL; Eosinophils% 5.8 % (0-5); Hematocrit 41.3 % (40-54); Hemoglobin 13.5 g/dL (13.0-16.5); Lymphocyte # 1.45 X10^3/ul (0.83-4.51); Lymphocyte % 14.5 % (19-41); Mean Corp Hgb Conc 32.7 g/dL (32-36); Mean Corpuscular Hgb 30.4 pg (27.0-32.0); Mean Platelet Vol. 10.1 fl (6.2-12.0); Monocyte# 0.77 X10^3/uL; Monocyte% 7.7 % (0-10); NRBC Flagged by Analyzer 0 % (0-5); Neutrophil % 71.3 % (47-70); Platelet Count 174 K/mm3 (150-450); RBC Distribution Width CV 14.6 % (11.6-14.6); RBC Distribution Width SD 49.7 fl (35.1-43.9); Red Blood Count 4.44 M/mm3 (4.6-6.2)
[2024-01-26 07:19] LABS: ALB/GLOB Ratio 0.8 RATIO (0.9-2.4); AST(SGOT) 21 U/L (15-37); Alanine Aminotransfer ALT/SGPT 35 U/L (16-61); Albumin, Serum 2.9 g/dL (3.2-5.0); Alkaline Phosphatase 89 U/L (45-117); Anion Gap 6 (5-15); BUN 14 mg/dL (7-18); BUN/Creat Ratio 15.3 RATIO (10-20); Calcium,Total 8.5 mg/dL (8.5-10.1); Chloride 111 mmol/L (98-107); Creatinine, Serum 0.92 mg/dL (0.70-1.30); EST Glomerular Filtration Rate 86 mL/min (>60); Est Glom Filt Rate - Afr Amer 104 mL/min (>60); Estimated Creatinine Clearance 84.85 ml/min; Globulin 3.8 g/dL (2.2-4.2); Glucose 91 mg/dL (74-106); Magnesium 1.7 mg/dL (1.6-2.6); Potassium 3.4 mmol/L (3.5-5.1); Protein, Total 6.7 g/dL (6.4-8.2); Sodium Level 142 mmol/L (136-145)
[2024-01-26] MEDS: Ciprofloxacin 200 MG/100 ML BAG 100 MG IV ×2 (08:11→21:18)
[2024-01-26] MEDS: Nystatin Powder 15gm Bottle 1 APPLIC TOPICAL ×2 (08:11→21:18)
[2024-01-26] MEDS: Ensure Plus High Protein 120 ML LIQUID PO ×3 (08:11→21:18)
[2024-01-26] MEDS: Losartan Potassium 50 MG Tablet 125 MG PO (08:11)
[2024-01-26] MEDS: Zinc Sulfate 50 mg zinc (220 mg) ORAL capsule PO (08:12)
[2024-01-26] MEDS: Furosemide 40 MG Tablet PO (08:12)
[2024-01-26] MEDS: Lactobacillis Acidophilus 1 CAP PO ×2 (08:12→21:18)
[2024-01-26] MEDS: Cholecalciferol (Vit D3) 125 MCG CAPSULE (5,000 UNITS) PO (08:12)
[2024-01-26] MEDS: Menthol/Lanolin/Calamine/Znox 113 GM Tube 1 APPLIC TOPICAL ×2 (08:12→21:19)
[2024-01-26] MEDS: Potassium Chloride Oral Tablet 20 MEQ PO ×2 (08:12→17:13)
[2024-01-26] MEDS: Ascorbic Acid 500 MG Tablet 1000 MG PO ×2 (08:12→17:13)
[2024-01-26] MEDS: Vancomycin HCl 1,500 MG in 0.9% Normal Saline (500mL Bag) 500 ML 250 MG IV ×2 (10:04→22:35)
[2024-01-26] MEDS: Potassium Chloride Oral Tablet 20 MEQ 40 MEQ PO (10:04)
[2024-01-26] MEDS: Acetaminophen 325 MG Tablet 650 MG PO (12:33)
[2024-01-26] MEDS: oxyCODONE 5 MG Tablet PO (12:34)
--- NOTE | 2024-01-26 13:23 | CASEMGMT ---
JON MI Assessment: Face to Face with pt for initial transition planning/care coordination assessment. JON MI introduced self and role at [facility], pt voices understanding and consents to assessment. Pt is A&O x4 and answers all questions appropriately at this time. Care providers, pharmacy, and demographics verified/updated. Strata: 3 Admitting Dx: B/L LE Cellulitits PCP: Mikey Specialists: Denies hx of. Preferred Pharmacy: [facility] Insurance: [facility] Prescription Benefit: yes LNOK: Son, Naeem; Son, Maco Living Arrangements: Pt lives with son in a 2 story home with a ramp to enter. ADLs: pt needs assistance with ADLs and IADLs. Transportation: Pt uses medical transportation, son can provide transportation but pt unable to get in car. DME: Wheelchair, walker, rollator, bill walker, cielo lift, hospital bed. HHC/SNF: Pt has been to several SNF in the past: [place] [facility], [facility], [facility]. Pt states used different HHC companies to go home with. Family is frustrated that SNF keeps sending pt home before he is ready. Pt states would like to go back to [facility] for additional therapy. JON MI notified SW. Pt states no further concerns/needs. SW or CM to follow. Advised pt to ask CM if any further question/concerns/needs arise, voices understanding. [facility] Jose D WEBB CM
--- NOTE | 2024-01-26 15:07 | CASEMGMT ---
Social Work SW received referral from RNCM that pt is requesting to go to [facility]. SW met with pt who is know to this SW. Pt states he was discharged from [facility] on Saturday 01/20 as insurance issued a notice of non coverage. Pt states he returned home with his son and home health, but became increasingly weaker over the course of the week and needed to return to hospital when he could not get out of bed on Sunday. Pt's son does work and is unable to care for pt. Pt is requesting to return to [facility]. SW spoke with pt regarding snf placement at pt has been sent from [facility] to a SNF on 08/01, 09/06, 10/24, 12/31. Pt states he will stay if insurance would pay. SW attempted to discuss Medicaid with pt and pt is adamant that he will not apply for Medicaid for snf placement. SW inquired about private pay snf but pt states he is not able to afford this. A list of SNF providers including quality and resource use data and consistent with the patient?s preferred geographic region, medical needs, and insurance network were provided from the [employer] Guide. [facility] preferred provider [facility]. Referral sent. Plan: [facility], pending acceptance and precert LEIA Chen
--- NOTE | 2024-01-26 15:42 | PCM.PN.HOSP ---
Reason for Visit Reason for Visit: Diagnoses Morbid (severe) obesity due to excess calories (01/26/24) Venous insufficiency (chronic) (peripheral) (01/26/24) Cellulitis of unspecified part of limb (01/26/24) Panniculitis, unspecified (01/26/24) Difficulty in walking, not elsewhere classified (01/26/24) Weakness (01/26/24) Other malaise (01/26/24) Body mass index [BMI] 40.0-44.9, adult (01/26/24) Personal history of transient ischemic attack (TIA), and cerebral infarction without residual deficits (01/26/24) Subjective Subjective Patient feels his leg feels a little bit better today. Still fairly swollen and tender however, erythema is a little bit less angry he feels. States he is fairly weak again and will likely need to go somewhere for rehab. I did tell him he likely would benefit from long-term care facility. Objective Data Objective Data Vital Signs: Vital Signs Temp Pulse Resp BP Pulse Ox O2 Del Method 98.2 F 80 16 116/80 95 Room Air 01/26/24 14:00 01/26/24 14:00 01/26/24 14:00 01/26/24 14:00 01/26/24 14:00 01/26/24 14:00 Oxygen Delivery Method Room Air Weight: 117.2 kg Body Mass Index (BMI) 41.5 Intake & Output: Intake and Output for Last 24 Hours 01/24/24 01/25/24 01/26/24 23:59 23:59 23:59 Intake Total 2243 / 2243 Output Total 500 / 500 Balance 1743 / 1743 Lab / Micro Data 01/26/24 05:35 01/26/24 05:35 Labs: Laboratory Results - last 24 hr 01/25/24 22:15: WBC 9.0, RBC 4.60, Hgb 14.0, Hct 43.4, MCV 94.3 H, MCH 30.4, MCHC 32.3, RDW Std Deviation 50.6 H, RDW Coeff of Naz 14.7 H, Plt Count 206, MPV 9.4, Sodium 142, Potassium 3.5, Chloride 107, Carbon Dioxide 31.0, Anion Gap 4 L, BUN 15, Creatinine 1.14, Estim Creat Clear Calc 69.06, Est GFR (MDRD) Af Amer 81, Est GFR (MDRD) Non-Af 67, BUN/Creatinine Ratio 13.2, Glucose 107 H, Lactic Acid 1.3, Calcium 9.1, Total Bilirubin 0.90, AST 26, ALT 44, Alkaline Phosphatase 102, Troponin I High Sens 10, B-Natriuretic Peptide 62.2, Total Protein 7.5, Albumin 3.3, Globulin 4.2, Albumin/Globulin Ratio 0.8 L 01/25/24 22:34: Urine Color Yellow, Urine Clarity Clear, Urine pH 6.0, Ur Specific [place] 1.020, Urine Protein Negative, Urine Glucose (UA) Normal, Urine Ketones Negative, Urine Occult Blood Negative, Urine Nitrite Negative, Urine Bilirubin Negative, Urine Urobilinogen Normal, Ur Leukocyte Esterase Negative, Urine RBC 0 SEEN, Urine WBC 0-5 SEEN, Ur Squamous Epith Cells 0 SEEN, Urine Bacteria RARE, Urine Mucus 0 SEEN 01/26/24 05:35: WBC 10.0, RBC 4.44 L, Hgb 13.5, Hct 41.3, MCV 93.0, MCH 30.4, MCHC 32.7, RDW Std Deviation 49.7 H, RDW Coeff of Naz 14.6, Plt Count 174, MPV 10.1, Immature Gran % (Auto) 0.300, Neut % (Auto) 71.3 H, Lymph % (Auto) 14.5 L, [place] % (Auto) 7.7, Eos % (Auto) 5.8 H, Baso % (Auto) 0.4, Absolute Neuts (auto) 7.1, Absolute Lymphs (auto) 1.45, Nucleated RBC % 0, Sodium 142, Potassium 3.4 L, Chloride 111 H, Carbon Dioxide 25.0, Anion Gap 6, BUN 14, Creatinine 0.92, Estim Creat Clear Calc 84.85, Est GFR (MDRD) Af Amer 104, Est GFR (MDRD) Non-Af 86, BUN/Creatinine Ratio 15.3, Glucose 91, Calcium 8.5, Phosphorus 3.0, Magnesium 1.7, Total Bilirubin 1.30 H, AST 21, ALT 35, Alkaline Phosphatase 89, Total Protein 6.7, Albumin 2.9 L, Globulin 3.8, Albumin/Globulin Ratio 0.8 L, TSH 2.190 Radiography Diagnostic Testing: Radiology Impression Brain CT 01/25/24 21:53 IMPRESSION: 1. No acute intracranial abnormality. There has been no change from the reference exam. 2. Stable senescent change with small vessel ischemia. Electronically Signed: Loy Joshi MD at 23:47 EDT , Physical Exam Const alert, oriented x3, no apparent distress and well nourished; Negative for average body habitus or healthy appearing Constitutional Narrative: Morbidly obese, older, white male, sitting up in bed, appears comfortable, nursing at bedside, not toxic HEENT head/scalp atraumatic and moist oral mucous membranes HEENT Narrative: Mallampati 4, no thrush Head and Scalp: normocephalic Resp normal respiratory effort, no retractions, no use of accessory muscles and clear to auscultation bilaterally Resp Narrative: Diffusely diminished and distant due to body habitus Auscultation: Negative for rales, rhonchi or wheezes Cardio regular rate, regular rhythm, S1 normal heart sound, S2 normal heart sound, no murmurs, no rub, no gallops and no clicks Cardio Narrative: Distant due to body habitus GI normal to inspection, nondistended, normoactive bowel sounds, soft to palpation and non-tender GI Narrative: Large protuberant abdomen Extremity Extremity Narrative: Right lower extremity with swelling and erythema greater than left, increased tissue temperature, erythema does not extend above the knee, few small wounds on foot that appear to be healing however likely nidus for infection, left lower extremity with minimal erythema and appears more consistent with chronic venous stasis, no clubbing or cyanosis, right great toe wound is healed, significant seborrhea on face and dry skin on legs Neuro oriented x3 and moves all extremities Neuro Narrative: Severe generalized weakness noted Speech: speech normal Psych Psych Narrative: Affect is flat, patient answers questions and interacts appropriately Assessment & Plan Assessment/Plan (1) Generalized weakness: (2) Venous insufficiency (chronic) (peripheral): (3) Cellulitis of right lower leg: PLAN: Plan Right lower extremity cellulitis-acute on chronic -Recent admission for the same--> patient has multiple admissions with cellulitis and he does well when he is institutionalized and then decompensates upon going home -Significant issues with compliance at baseline -Cultures were polymicrobial -New tiny wounds noted on his foot that are likely the nidus -Patient states worsening erythema started about a week ago--> unclear on discharge date from skilled facility -Nothing to culture at this time -Continue ciprofloxacin and vancomycin -Last antibiotic course was completed with ciprofloxacin and linezolid to complete a total of 14 days of antibiotics -Consult wound nurse -Start Eucerin cream on legs versus Aquaphor depending on tolerance Recent right great toe wound -Resolved and appears much improved Generalized weakness and debility- multifactorial -PT/OT following -Anticipate will need placement Anasarca/lower extremity edema secondary to chronic venous stasis/lipodermatosclerosis -Chronic -Continue oral Lasix 40 mg p.o. twice daily -It is clear that patient is not compliant with diet restrictions including sodium or fluids Hypokalemia -40 mEq p.o. potassium replacement -Repeat in a.m. Chronic atrial fibrillation -Rate controlled but not on any rate controlling medications -Continue rivaroxaban Carotid artery stenosis -Minimal and less than 50% on most recent imaging -Continue ongoing medical management and aggressive treatment -Ongoing outpatient follow-up Right-sided hemiparesis secondary to acute stroke -Continue PT/OT -Case management/social work consulted--> anticipate patient will need placement at discharge -Patient would likely benefit from long-term placement CAD/essential HTN/HPL -Continue home atorvastatin -Continue home losartan History of BPH -Currently not on any medication -Watch for urinary retention History of ANDREE -Not currently compliant with CPAP -Monitor nocturnal oxygenation status -Likely part of the etiology for his chronic lower extremity swelling Morbid obesity -BMI 41.7 -Recommend weight loss -Complicates treatment, prognosis, outcomes History of DVT -Fully anticoagulated with Xarelto CODE STATUS -Full code Charges/Coding Visit Charges Inpatient E&M: 21546 Subs Hosp L2
[2024-01-26] MEDS: Petrolatum 33% Tube 1 APPLIC TOPICAL (17:13)
[2024-01-26] MEDS: Rivaroxaban 20 MG Tablet PO (17:13)
[2024-01-26] MEDS: Atorvastatin Calcium 40 MG Tablet PO (21:18)
[2024-01-27 03:32] VITALS: BP 154/97; PULSE 71; RESP 18; TEMP 36.6; O2SAT 98
[2024-01-27] MEDS: Acetaminophen 325 MG Tablet 650 MG PO ×2 (04:01→21:31)
[2024-01-27] MEDS: oxyCODONE 5 MG Tablet PO (04:02)
[2024-01-27 05:56] LABS: Hematocrit 39.8 % (40-54); Hemoglobin 13.1 g/dL (13.0-16.5); Mean Corp Hgb Conc 32.9 g/dL (32-36); Mean Corpuscular Hgb 30.8 pg (27.0-32.0); Mean Corpuscular Volume 93.6 fL (80-94); Mean Platelet Vol. 9.9 fl (6.2-12.0); Platelet Count 186 K/mm3 (150-450); RBC Distribution Width CV 14.5 % (11.6-14.6); RBC Distribution Width SD 49.6 fl (35.1-43.9); Red Blood Count 4.25 M/mm3 (4.6-6.2); White Blood Count 7.4 K/mm3 (4.4-11.0)
[2024-01-27 06:00] VITALS: BMI 41.8
[2024-01-27] MEDS: Gabapentin 300 MG Capsule PO ×3 (06:09→21:30)
[2024-01-27 06:23] LABS: Anion Gap 4 (5-15); BUN 12 mg/dL (7-18); BUN/Creat Ratio 14.6 RATIO (10-20); Calcium,Total 8.8 mg/dL (8.5-10.1); Chloride 111 mmol/L (98-107); Creatinine, Serum 0.82 mg/dL (0.70-1.30); EST Glomerular Filtration Rate 97 mL/min (>60); Est Glom Filt Rate - Afr Amer 118 mL/min (>60); Glucose 101 mg/dL (74-106); Magnesium 1.9 mg/dL (1.6-2.6); Potassium 3.7 mmol/L (3.5-5.1); Sodium Level 140 mmol/L (136-145)
[2024-01-27 09:30] VITALS: BP 126/61; PULSE 65; RESP 18; TEMP 36.6; O2SAT 97
[2024-01-27] MEDS: Potassium Chloride Oral Tablet 20 MEQ PO ×2 (09:35→16:57)
[2024-01-27] MEDS: Furosemide 40 MG Tablet PO (09:35)
[2024-01-27] MEDS: Vancomycin Trough/Random Due 1 LAB MC ×2 (09:36→18:25)
[2024-01-27] MEDS: Ascorbic Acid 500 MG Tablet 1000 MG PO ×2 (09:36→16:56)
[2024-01-27] MEDS: Zinc Sulfate 50 mg zinc (220 mg) ORAL capsule PO (09:36)
[2024-01-27 10:13] LABS: Vancomycin, Trough Level 22.3 ug/mL (5.0-15.0)
--- NOTE | 2024-01-27 10:24 | PCM.RX.CS ---
Consult Antibiotic Management Pharmacy has been consulted to manage selected antibiotic: Vancomycin Type of Intervention Type of Consult: Follow-up Suspected Infection Suspected Infection: Skin/Soft tissue Prior Doses of Antibiotics Prior Doses of Antibiotics Received/Current Regimen: Vancomycin 1500 mg Q12H last dose given 01/22 @ 2235 Labs Labs: Sodium 140 mmol/L (136-145) 01/27/24 05:25 Potassium 3.7 mmol/L (3.5-5.1) 01/27/24 05:25 Chloride 111 mmol/L (98-107) H 01/27/24 05:25 Carbon Dioxide 25.0 mmol/L (21.0-32.0) 01/27/24 05:25 Anion Gap 4 (5-15) L 01/27/24 05:25 BUN 12 mg/dL (7-18) 01/27/24 05:25 Creatinine 0.82 mg/dL (0.70-1.30) 01/27/24 05:25 Est GFR (MDRD) Af Amer 118 mL/min (>60) 01/27/24 05:25 Est GFR (MDRD) Non-Af 97 mL/min (>60) 01/27/24 05:25 BUN/Creatinine Ratio 14.6 RATIO (10-20) 01/27/24 05:25 Glucose 101 mg/dL (74-106) 01/27/24 05:25 Vancomycin Trough 22.3 ug/mL (5.0-15.0) H 01/27/24 09:35 Dosing Weight Weight used for dosin kg Estimated Creatinine Clearance Estimated Creatinine Clearance: ~95 Goal Trough Goal Trough: 15-20 mcg/mL Pharmacy Plan for Drug Dosing Pharmacy Plan for Drug Dosing: Vancomycin trough 22.3, hold and get a random in 8 hours, dosing based on PK parameters after random level. Pharmacy Service will continue to monitor and adjust dosing as required. Follow-Up Labs Follow-Up Labs: Trough: Vancomycin Date/Time Labs Ordered Labs to be done on [date and time ordered]: 01/27/24 @ 1800
[2024-01-27] MEDS: Ciprofloxacin 200 MG/100 ML BAG 100 MG IV ×2 (11:44→21:55)
[2024-01-27] MEDS: Menthol/Lanolin/Calamine/Znox 113 GM Tube 1 APPLIC TOPICAL ×2 (12:24→21:22)
[2024-01-27] MEDS: Lactobacillis Acidophilus 1 CAP PO ×2 (12:24→21:26)
[2024-01-27] MEDS: Losartan Potassium 50 MG Tablet 125 MG PO (12:24)
[2024-01-27] MEDS: Petrolatum 33% Tube 1 APPLIC TOPICAL (12:27)
[2024-01-27] MEDS: Cholecalciferol (Vit D3) 125 MCG CAPSULE (5,000 UNITS) PO (12:27)
[2024-01-27] MEDS: Nystatin Powder 15gm Bottle 1 APPLIC TOPICAL ×2 (12:29→21:22)
--- NOTE | 2024-01-27 14:21 | PN.HOSP_ITS ---
Reason for Visit Reason for Visit: Right lower leg swelling and redness Subjective Subjective Patient states his legs are still fairly sore, right greater than left. Had difficulty getting up to the chair this morning. He states he is just very weak. We did discuss possibly him living in an F long-term versus skilled facility. He states he really does not want to do that and feels that he was discharged from the senior living too early last time and he was not doing well enough prior to discharge home. He states that he is compliant with his diet however the last time he was here he was post to be on a salt and fluid restricted diet and his son was bringing him pizza from [email or web address] and hot wings. Objective Data Objective Data Vital Signs: Vital Signs Temp Pulse Resp BP Pulse Ox O2 Del Method 98 F 65 18 126/61 H 97 Room Air 01/27/24 09:30 01/27/24 09:30 01/27/24 09:30 01/27/24 09:30 01/27/24 09:30 01/27/24 09:30 Oxygen Delivery Method Room Air Weight: 118 kg Body Mass Index (BMI) 41.8 Intake & Output: Intake and Output for Last 24 Hours 01/25/24 01/26/24 01/27/24 23:59 23:59 23:59 Intake Total 2973.5 / 2973.5 1330 / 1330 Output Total 1200 / 1200 300 / 300 Balance 1773.5 / 1773.5 1030 / 1030 Lab / Micro Data 01/27/24 05:25 01/27/24 05:25 Labs: Laboratory Results - last 24 hr 01/27/24 05:25: WBC 7.4, RBC 4.25 L, Hgb 13.1, Hct 39.8 L, MCV 93.6, MCH 30.8, MCHC 32.9, RDW Std Deviation 49.6 H, RDW Coeff of Naz 14.5, Plt Count 186, MPV 9.9, Sodium 140, Potassium 3.7, Chloride 111 H, Carbon Dioxide 25.0, Anion Gap 4 L, BUN 12, Creatinine 0.82, Estim Creat Clear Calc 95.20, Est GFR (MDRD) Af Amer 118, Est GFR (MDRD) Non-Af 97, BUN/Creatinine Ratio 14.6, Glucose 101, Calcium 8.8, Magnesium 1.9 01/27/24 09:35: Vancomycin Trough 22.3 H Physical Exam Const alert, oriented x3, no apparent distress and well nourished; Negative for average body habitus or healthy appearing Constitutional Narrative: Morbidly obese, older, white male, sitting up in bed, appears comfortable, nontoxic, watching television General Appearance: cooperative HEENT normocephalic, head/scalp atraumatic and moist oral mucous membranes HEENT Narrative: Mallampati 3-4, no thrush Resp normal respiratory effort, no retractions, no use of accessory muscles and clear to auscultation bilaterally Resp Narrative: Diffusely diminished and distant due to body habitus Auscultation: Negative for rales, rhonchi or wheezes Cardio regular rate, regular rhythm, S1 normal heart sound, S2 normal heart sound, no murmurs, no rub, no gallops and no clicks Cardio Narrative: Distant due to body habitus GI normal to inspection, nondistended, normoactive bowel sounds, soft to palpation and non-tender GI Narrative: Large protuberant abdomen Extremity Extremity Narrative: Right lower extremity with swelling and erythema greater than left, outlined area appears to be retracting some, increased tissue temperature, erythema does not extend above the knee, few small wounds on foot that appear to be healing however likely nidus for infection, left lower extremity with minimal erythema and appears more consistent with chronic venous stasis, no clubbing or cyanosis, right great toe wound is healed, significant seborrhea on face and dry skin on legs Neuro oriented x3, moves all extremities and no focal motor deficits Neuro Narrative: Severe generalized weakness noted Speech: speech normal Psych Psych Narrative: Affect is flat, patient answers questions and interacts appropriately Assessment & Plan Assessment/Plan (1) Generalized weakness: (2) Venous insufficiency (chronic) (peripheral): (3) Cellulitis of right lower leg: PLAN: Plan Right lower extremity cellulitis-acute on chronic -Recent admission for the same--> patient has multiple admissions with cellulitis and he does well when he is institutionalized and then decompensates upon going home -Significant issues with compliance at baseline -Cultures were polymicrobial at last hospitalization -New tiny wounds noted on his foot that are likely the nidus -Patient states worsening erythema started about a week ago--> unclear on discharge date from skilled facility -Nothing to culture at this time -Continue ciprofloxacin and vancomycin for now however if erythema does not significantly improve in the next 24 hours may need to transition ciprofloxacin to possibly cefepime or meropenem -Last antibiotic course was completed with ciprofloxacin and linezolid to complete a total of 14 days of antibiotics -Consult wound nurse--> anticipate evaluation tomorrow Generalized weakness and debility- multifactorial -PT/OT following -Anticipate will need placement Anasarca/lower extremity edema secondary to chronic venous stasis/lipodermatosclerosis -Chronic -On 40 of p.o. Lasix twice daily at home -Will hold p.o. Lasix for now and add IV Lasix twice daily as I do think if we can help reduce the swelling a bit in his legs that will help him heal -It is clear that patient is not compliant with diet restrictions including sodium or fluids Hypokalemia - resolved Chronic atrial fibrillation -Rate controlled but not on any rate controlling medications -Continue rivaroxaban Carotid artery stenosis -Minimal and less than 50% on most recent imaging -Continue ongoing medical management and aggressive treatment -Ongoing outpatient follow-up Right-sided hemiparesis secondary to acute stroke -Continue PT/OT -Case management/social work consulted--> anticipate patient will need placement at discharge -Patient would likely benefit from long-term placement CAD/essential HTN/HPL -Continue home atorvastatin -Continue home losartan History of BPH -Currently not on any medication -Watch for urinary retention History of ANDREE -Not currently compliant with CPAP -Monitor nocturnal oxygenation status -Likely part of the etiology for his chronic lower extremity swelling Morbid obesity -BMI 42 -Recommend weight loss -Complicates treatment, prognosis, outcomes History of DVT -Fully anticoagulated with Xarelto CODE STATUS -Full code Disposition: -Patient needs to be in a long-term facility most likely as he seems to decompensate when he goes home. He states that he was not doing very well at the time of discharge from the skilled facility and was only home for 4 to 5 days prior to coming back to the hospital. Again compliance has been an ongoing issue. Charges/Coding Visit Charges Inpatient E&M: 65156 Subs Hosp L2
[2024-01-27 15:30] VITALS: BP 140/84; PULSE 81; RESP 18; TEMP 36.6; O2SAT 97
[2024-01-27] MEDS: Rivaroxaban 20 MG Tablet PO (16:57)
[2024-01-27] MEDS: 0.9% Normal Saline (1000mL) 1,000 ML 30 ML IV (18:19)
--- NOTE | 2024-01-27 18:38 | NURSING ---
[address] Smith about patient refusing to take IV Lasix. patient stated does not want to be up all night peeing. Leslie Reed RN
--- NOTE | 2024-01-27 18:41 | NURSING ---
1800 Dr Luis vail to hold dose tonight and start Lasix 8 am and 2pm 01/28/24 Leslie Reed RN
[2024-01-27 19:04] LABS: Vancomycin, Random Level 17.2 ug/mL (0.0-15.0)
--- NOTE | 2024-01-27 19:22 | PCM.RX.CS ---
Consult Antibiotic Management Pharmacy has been consulted to manage selected antibiotic: Vancomycin Type of Intervention Type of Consult: Follow-up Labs Labs: Sodium 140 mmol/L (136-145) 01/27/24 05:25 Potassium 3.7 mmol/L (3.5-5.1) 01/27/24 05:25 Chloride 111 mmol/L (98-107) H 01/27/24 05:25 Carbon Dioxide 25.0 mmol/L (21.0-32.0) 01/27/24 05:25 Anion Gap 4 (5-15) L 01/27/24 05:25 BUN 12 mg/dL (7-18) 01/27/24 05:25 Creatinine 0.82 mg/dL (0.70-1.30) 01/27/24 05:25 Est GFR (MDRD) Af Amer 118 mL/min (>60) 01/27/24 05:25 Est GFR (MDRD) Non-Af 97 mL/min (>60) 01/27/24 05:25 BUN/Creatinine Ratio 14.6 RATIO (10-20) 01/27/24 05:25 Glucose 101 mg/dL (74-106) 01/27/24 05:25 Vancomycin Trough 22.3 ug/mL (5.0-15.0) H 01/27/24 09:35 Random Vancomycin 17.2 ug/mL (0.0-15.0) H 01/27/24 18:25 Pharmacy Plan for Drug Dosing Pharmacy Plan for Drug Dosing: VANCOMYCIN LEVEL RECEIVED Current Vancomycin Dose: on hold Number of Doses Received: 3 Vancomycin Level: 17.2 mg/dl Hours Since Last Dose: 20 Renal Function: SCr 0.82 mg/dl, CrCl 85 mL/min Renal Function Trend: improved Lab/Micro: none this admission, 12/25/23 wound cx with MRSA, enterococcus, pseudomonas, serratia, enterobacter, group G strep Vancomycin Plan/Comments: 20 hour random level is now therapeutic at 17.2 mg/dL (goal 15-20). Will restart dosing at 1000mg Q12 and get a trough prior to the 4th dose. Pending Level: 01/29/24 @ 0730 Pharmacy Service will continue to monitor and adjust dosing as required.
[2024-01-27] MEDS: Vancomycin IV 1,000 MG/200 ML BAG 200 MG IV (20:44)
[2024-01-27 20:47] VITALS: BP 141/99; PULSE 75; RESP 22; TEMP 36.8; O2SAT 97
[2024-01-27] MEDS: Ensure Plus High Protein 120 ML LIQUID PO (21:29)
[2024-01-27] MEDS: Atorvastatin Calcium 40 MG Tablet PO (21:29)
[2024-01-28] MEDS: oxyCODONE 5 MG Tablet PO (04:34)
[2024-01-28] MEDS: Gabapentin 300 MG Capsule PO ×3 (04:36→21:00)
[2024-01-28 04:46] VITALS: BP 152/82; PULSE 70; RESP 18; TEMP 36.7; O2SAT 98
[2024-01-28 06:00] VITALS: BMI 41.8
[2024-01-28 06:55] LABS: Hematocrit 40.2 % (40-54); Hemoglobin 13.4 g/dL (13.0-16.5); Mean Corp Hgb Conc 33.3 g/dL (32-36); Mean Corpuscular Hgb 30.6 pg (27.0-32.0); Mean Corpuscular Volume 91.8 fL (80-94); Mean Platelet Vol. 9.5 fl (6.2-12.0); Platelet Count 196 K/mm3 (150-450); RBC Distribution Width CV 14.3 % (11.6-14.6); RBC Distribution Width SD 48.3 fl (35.1-43.9); Red Blood Count 4.38 M/mm3 (4.6-6.2); White Blood Count 7.3 K/mm3 (4.4-11.0)
[2024-01-28 06:56] VITALS: O2SAT 96
[2024-01-28 07:18] LABS: Anion Gap 8 (5-15); BUN 18 mg/dL (7-18); BUN/Creat Ratio 21.6 RATIO (10-20); Chloride 108 mmol/L (98-107); Creatinine, Serum 0.83 mg/dL (0.70-1.30); EST Glomerular Filtration Rate 96 mL/min (>60); Est Glom Filt Rate - Afr Amer 116 mL/min (>60); Estimated Creatinine Clearance 94.36 ml/min; Glucose 96 mg/dL (74-106); Potassium 3.5 mmol/L (3.5-5.1); Sodium Level 140 mmol/L (136-145)
--- NOTE | 2024-01-28 07:32 | PCM.PN.HOSP ---
Reason for Visit Reason for Visit: Diagnoses Morbid (severe) obesity due to excess calories (01/26/24) Venous insufficiency (chronic) (peripheral) (01/26/24) Cellulitis of right lower limb (01/26/24) Cellulitis of unspecified part of limb (01/26/24) Panniculitis, unspecified (01/26/24) Difficulty in walking, not elsewhere classified (01/26/24) Weakness (01/26/24) Other malaise (01/26/24) Body mass index [BMI] 40.0-44.9, adult (01/26/24) Personal history of transient ischemic attack (TIA), and cerebral infarction without residual deficits (01/26/24) Objective Data Objective Data Vital Signs: Vital Signs Temp Pulse Resp BP Pulse Ox O2 Del Method 98.1 F 70 18 152/82 H 96 Room Air 01/28/24 04:46 01/28/24 04:46 01/28/24 04:46 01/28/24 04:46 01/28/24 06:56 01/28/24 06:56 Oxygen Delivery Method Room Air Weight: 259 lb 14.8 oz Body Mass Index (BMI) 41.8 Intake & Output: Intake and Output for Last 24 Hours 01/26/24 01/27/24 01/28/24 23:59 23:59 23:59 Intake Total 2973.5 / 2973.5 2636.5 / 3161.5 825 / 825 Output Total 1200 / 1200 900 / 1475 1000 / 1000 Balance 1773.5 / 1773.5 1736.5 / 1686.5 -175 / -175 Lab / Micro Data 01/28/24 06:17 01/28/24 06:17 Labs: Laboratory Results - last 24 hr 01/27/24 09:35: Vancomycin Trough 22.3 H 01/27/24 18:25: Random Vancomycin 17.2 H 01/28/24 06:17: WBC 7.3, RBC 4.38 L, Hgb 13.4, Hct 40.2, MCV 91.8, MCH 30.6, MCHC 33.3, RDW Std Deviation 48.3 H, RDW Coeff of Naz 14.3, Plt Count 196, MPV 9.5, Sodium 140, Potassium 3.5, Chloride 108 H, Carbon Dioxide 25.0, Anion Gap 8, BUN 18, Creatinine 0.83, Estim Creat Clear Calc 94.36, Est GFR (MDRD) Af Amer 116, Est GFR (MDRD) Non-Af 96, BUN/Creatinine Ratio 21.6 H, Glucose 96, Calcium 9.0 Physical Exam Narrative Seen and examined. Patient has history of recurrent cellulitis with chronic lower extremity swelling with chronic scar and healed wounds Physical exam General: Alert, Oriented x3, Cooperative. BMI 42.0 kg/m? HEENT: Atraumatic, PERRLA, EOMI, Normocephalic Oral: No Gingival or Mucosal Lesions/ Ulcerations Neck: Supple, No JVD, Negative Carotid Bruits Chest wall/Lungs: Air entry diminished in bilateral lung bases. No crepitation/rhonchi Cardiovascular: Regular rate, Regular Rhythm, Normal S1, Normal S2, No M/G/R Abdomen: Bowel Sounds Present, Soft, Non Tender, Non-Distended : No dysuria. No renal angle tenderness. No suprapubic tenderness. Extremities: No edema, Capillary Refill Less than 3 Seconds Skin: Chronic scarring but no current open wounds/ulcer. Musculoskeletal:. Lower legs Jaden wrap bandage. No Tenderness to Palpation of Joints or Extremities Neurological: Cranial nerves II-XII grossly intact, DTR 2+/4. No acute focal neurological deficit. Psych/Mental Status: Normal Affect, Appropriate. Assessment & Plan Assessment/Plan (1) Generalized weakness: (2) Venous insufficiency (chronic) (peripheral): (3) Cellulitis of right lower leg: PLAN: Plan 1. Bilateral lower extremity edema. No fever or leukocytosis. Lower legs does not show acute features of cellulitis including pain, tenderness or erythema. Patient was evaluated by ID regional engagement consultant. Jaden wrap and diuresis recommended. IV antibiotics were discontinued. Wound nurses consulted 2. Generalized weakness and debility- multifactorial -PT/OT following 3. Anasarca/lower extremity edema secondary to chronic venous stasis/lipodermatosclerosis -Chronic. Oral Lasix changed to IV Lasix. For hypokalemia - resolved 5 chronic atrial fibrillation -Rate controlled but not on any rate controlling medications -Continue rivaroxaban Carotid artery stenosis -Minimal and less than 50% on most recent imaging -Continue ongoing medical management and aggressive treatment -Ongoing outpatient follow-up Right-sided hemiparesis secondary to acute stroke -Continue PT/OT -Case management/social work consulted--> anticipate patient will need placement at discharge -Patient would likely benefit from long-term placement CAD/essential HTN/HPL -Continue home atorvastatin -Continue home losartan History of BPH -Currently not on any medication -Watch for urinary retention History of ANDREE -Not currently compliant with CPAP -Monitor nocturnal oxygenation status -Likely part of the etiology for his chronic lower extremity swelling Morbid obesity -BMI 42 -Recommend weight loss -Complicates treatment, prognosis, outcomes History of DVT -Fully anticoagulated with Xarelto CODE STATUS -Full code Charges/Coding Visit Charges Inpatient E&M: 41761 Subs Hosp L2
--- NOTE | 2024-01-28 08:48 | WOUNDNOTE ---
skin photo: left lower leg
--- NOTE | 2024-01-28 08:48 | WOUNDNOTE ---
skin photo: right lower leg
--- NOTE | 2024-01-28 08:49 | WOUNDNOTE ---
skin photo: right lower leg
--- NOTE | 2024-01-28 08:49 | WOUNDNOTE ---
Was asked to see patient for cellulitis of bilateral lower legs. patient is known to this nurse from previous admissions. patient has chronic venous stasis changes bilaterally. patient with edema bilaterally with the right being greater than the left. this has been chronic since his stroke approx 1 year ago. the redness does not appear to be cellulitis. appears to me more venous stasis. no warmth noted. no open areas noted at this time. washed legs and feet with soap and water. pat dry. applied aloe vesta and wrapped legs with SB wraps from the base of the toes to just below the knees. pt tolerated well. see skin photos.
--- NOTE | 2024-01-28 08:58 | CASEMGMT ---
Addendum entered by Mary Salcido 01/30/24 10:49: Updates sent to [facility]. Precert remains pending. Mary Salcido DC Planning Asst. Addendum entered by Mary Salcido 01/28/24 16:22: [facility] has accepted. Updates sent with request to submit for precert. Mary Salcido DC Planning Asst. Addendum entered by Mary Salcido 01/28/24 15:24: Note sent to [facility] via [facility] to check on status. Mary Salcido DC Planning Asst. Original Note: Discharge Planning Updates sent to [facility] at [facility]. Pending acceptance. Mary Salcido DC Planning Asst.
[2024-01-28] MEDS: Potassium Chloride Oral Tablet 20 MEQ PO ×2 (10:11→17:02)
[2024-01-28] MEDS: Furosemide 40 MG/4 ML Vial IV ×2 (10:11→13:40)
[2024-01-28] MEDS: Lactobacillis Acidophilus 1 CAP PO ×2 (10:12→21:08)
[2024-01-28] MEDS: Zinc Sulfate 50 mg zinc (220 mg) ORAL capsule PO (10:12)
[2024-01-28] MEDS: Ascorbic Acid 500 MG Tablet 1000 MG PO ×2 (10:12→17:02)
[2024-01-28] MEDS: Losartan Potassium 50 MG Tablet 125 MG PO (10:13)
[2024-01-28] MEDS: Cholecalciferol (Vit D3) 125 MCG CAPSULE (5,000 UNITS) PO (10:14)
[2024-01-28] MEDS: Vancomycin IV 1,000 MG/200 ML BAG 200 MG IV (10:15)
[2024-01-28] MEDS: Nystatin Powder 15gm Bottle 1 APPLIC TOPICAL ×2 (10:18→21:09)
[2024-01-28] MEDS: Petrolatum 33% Tube 1 APPLIC TOPICAL (10:19)
[2024-01-28] MEDS: Menthol/Lanolin/Calamine/Znox 113 GM Tube 1 APPLIC TOPICAL ×2 (10:20→21:08)
[2024-01-28] MEDS: Ensure Plus High Protein 120 ML LIQUID PO ×4 (10:22→21:00)
[2024-01-28 10:30] VITALS: BP 113/81; PULSE 64; RESP 18; TEMP 36.9; O2SAT 98
[2024-01-28] MEDS: Ciprofloxacin 200 MG/100 ML BAG 100 MG IV (10:33)
[2024-01-28] MEDS: Acetaminophen 325 MG Tablet 650 MG PO ×2 (14:43→22:48)
[2024-01-28 16:00] VITALS: BP 120/76; PULSE 72; RESP 18; TEMP 36.7; O2SAT 96
--- NOTE | 2024-01-28 16:34 | CON.PCM.ID_ITS ---
Assessment & Plan Assessment/Plan (1) Edema: PLAN: No fever, normal wbc. Legs are not hot, not tender. No open wounds, no drainage. No sign of current infection. Recommend wraps and diuresis. Will stop abx. Will follow as needed, thank you HPI Consult Data Date of Consult: 01/28/24 HPI Narrative Reason for Consultation: cellulitis HPI Narrative: TURNER YAN, is a 73 M with h/o afib, stroke, chronic edema, presented 01/25 with increased BLE swelling, fatigue, difficulty walking. No fever, no drainage, mild pain. Admitted recently for cellulitis with infected wound, treated with vanc/cipro. Admitted here, put back on vanc/cipro, feeling about the same. Full ROS performed and neg except as noted above [facility]LY [facility] Medical History Generalized weakness Morbid obesity with BMI of 40.0-44.9, adult History of CVA (cerebrovascular accident) Lipodermatosclerosis of both lower extremities Venous insufficiency (chronic) (peripheral) Atrial fibrillation Bilateral leg edema History of stroke History of CAD (coronary artery disease) History of atrial fibrillation Neuropathic pain Obesity Essential (primary) hypertension Hemiplegia of right dominant side as late effect of cerebral infarction Right rotator cuff tear Right hemiplegia Congestive heart failure (CHF) Ambulatory dysfunction Tinea cruris Chronic venous stasis dermatitis Lymphedema Chronic anticoagulation Bilateral cellulitis of lower leg Candidiasis of skin Adult failure to thrive Hemiplegia affecting right dominant side Anticoagulant long-term use Pneumonia Cellulitis Atrial fibrillation CVA (cerebral vascular accident) Rotator cuff tear arthropathy of right shoulder CPAP (continuous positive airway pressure) dependence Sleep apnea FTT (failure to thrive) in adult Lymphedema of both lower extremities Chronic venous stasis dermatitis of both lower extremities Low back pain Hypertension Atrial fibrillation Debility Pain of left great toe Pain in right lower leg Hyperglycemia Leg pain Toe ulcer Lymphedema Non-pressure chronic ulcer of other part of right foot with necrosis of muscle Cellulitis of right lower limb Deep venous thrombosis 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 layer exposed Venous insufficiency Skin ulcer of left great toe with fat layer exposed Dyspnea on minimal exertion Anomalous origin of coronary artery Obesity New onset atrial fibrillation (03/24/20) Essential (primary) hypertension Pain of left lower extremity due to injury Former smoker Traumatic hematoma of left lower leg Arthritis Benign neoplasm of middle ear, nasal cavity and accessory sinuses ANDREE (obstructive sleep apnea) Cervical disc disease BPH (benign prostatic hyperplasia) GERD (gastroesophageal reflux disease) Hyperlipidemia Atherosclerotic heart disease of [place] coronary artery without angina pectoris Cardiac murmur, unspecified Home Medications ?Medication ?Instructions ?Recorded ?Last Taken ?Type rivaroxaban 20 mg tablet (Xarelto) 20 mg PO DINNER BLOOD THINNER #0 12/28/21 01/25/24 Rx tabs potassium chloride 20 mEq 20 meq PO BIDCM potassium #0 tabs 03/29/23 01/25/24 Rx tablet,extended release(part/cryst) (Klor-Con M) Lactobacil rhamnosus GG 10 billion 1 cap PO BID gut 09/02/23 01/25/24 History cell-inulin 200 mg sprinkle capsule (Motor2) gabapentin 300 mg capsule 300 mg PO TID neuropathy 09/02/23 01/25/24 History atorvastatin 40 mg tablet 40 mg PO QHS choplesterol #0 tabs 09/07/23 01/25/24 14:00 Rx 40 mg furosemide 40 mg tablet 40 mg PO BIDCM diuretic 30 days 09/07/23 01/25/24 14:00 Rx #60 tabs menthol 0.44 %-zinc oxide 20.6 % 1 applic topical BID #0 grams 10/25/23 01/25/24 Rx topical ointment (Calmoseptine) nystatin 100,000 unit/gram topical 1 applic topical BID #0 grams 10/25/23 01/25/24 Rx powder (Nyamyc) losartan 100 mg tablet 125 mg PO DAILY blood pressure 12/25/23 01/25/24 History acetaminophen 500 mg tablet 1,000 mg PO Q8 PRN pain 12/27/23 01/25/24 17:00 History 1,000 mg oxycodone 5 mg tablet 5 mg PO Q4H PRN PRN Pain Score 01/01/24 01/25/24 Rx 6-10 1 day #6 tabs Allergy/AdvReac Type Severity Reaction Status Date / Time diphenhydramine (From AdvReac Mild Abd Verified 01/25/24 21:21 Benadryl) cramps/diarrhea ibuprofen (From Motrin) AdvReac Nausea Verified 01/25/24 21:21 Family History Mother CAD (coronary artery disease) Hypertension History of cardiac radiofrequency ablation Sister Hypertension Other Arthritis Surgical History History of coronary artery stent placement H/O cervical spine surgery History of herniorrhaphy History of carpal tunnel release History of transurethral resection of prostate History of coronary artery stent placement (11/29/10) History of bursectomy History of removal of cyst History of carpal tunnel surgery History of fusion of cervical spine Social History household members: other details: Older son Naeem. Smoking Status: Former smoker alcohol intake: never substance use type: does not use Physical Exam Const alert, oriented x3 and no apparent distress General Appearance: cooperative HEENT normocephalic and head/scalp atraumatic Eyes PERRL and EOMs intact bilaterally Neck supple and No nodes Resp normal air movement and clear to auscultation bilaterally Cardio regular rate and regular rhythm GI soft to palpation, non-tender and non-distended Extremity General Extremity: edema Skin Skin Narrative: reviewed photos Neuro CN's II-XII intact bilaterally Lab / Micro Data Attestation: I reviewed the patient's lab results. 01/28/24 06:17 01/28/24 06:17 Labs: Laboratory Results - last 24 hr 01/27/24 18:25: Random Vancomycin 17.2 H 01/28/24 06:17: WBC 7.3, RBC 4.38 L, Hgb 13.4, Hct 40.2, MCV 91.8, MCH 30.6, MCHC 33.3, RDW Std Deviation 48.3 H, RDW Coeff of Naz 14.3, Plt Count 196, MPV 9.5, Sodium 140, Potassium 3.5, Chloride 108 H, Carbon Dioxide 25.0, Anion Gap 8, BUN 18, Creatinine 0.83, Estim Creat Clear Calc 94.36, Est GFR (MDRD) Af Amer 116, Est GFR (MDRD) Non-Af 96, BUN/Creatinine Ratio 21.6 H, Glucose 96, Calcium 9.0
--- NOTE | 2024-01-28 16:44 | CASEMGMT ---
Social Work- SW met with pt to advise of [facility] acceptance of referral. Pt states someone spoke with him about changing insurance; SW to f/u with [facility]. LEIA Mcpherson
[2024-01-28] MEDS: Rivaroxaban 20 MG Tablet PO (17:02)
[2024-01-28 20:37] VITALS: BP 129/90; PULSE 70; RESP 16; TEMP 36.7; O2SAT 95
[2024-01-28] MEDS: Atorvastatin Calcium 40 MG Tablet PO (21:10)
[2024-01-28] MEDS: MELATONIN 3 MG TABLET PO (21:10)
[2024-01-29 00:37] VITALS: BP 134/70; PULSE 79; RESP 18; TEMP 36.6; O2SAT 94
[2024-01-29 05:11] VITALS: BMI 41.9
[2024-01-29 05:51] VITALS: BP 153/99; PULSE 63; RESP 20; TEMP 36.5; O2SAT 96
[2024-01-29] MEDS: Gabapentin 300 MG Capsule PO ×3 (06:05→21:25)
[2024-01-29] MEDS: 0.9% Normal Saline (1000mL) 1,000 ML 30 ML IV (06:14)
[2024-01-29 06:45] LABS: Absolute Lymphocyte Count 1.44 X10^3/uL (0.83-4.51); Absolute Neutrophil Count 5.2 X10^3/uL (2.0-7.7); Basophil# 0.04 X10^3/uL; Basophil% 0.5 % (0-1); Eosinophil# 0.43 X10^3/uL; Eosinophils% 5.6 % (0-5); Hematocrit 42.6 % (40-54); Hemoglobin 14.2 g/dL (13.0-16.5); Lymphocyte # 1.44 X10^3/ul (0.83-4.51); Lymphocyte % 18.7 % (19-41); Mean Corp Hgb Conc 33.3 g/dL (32-36); Mean Platelet Vol. 9.7 fl (6.2-12.0); Monocyte# 0.55 X10^3/uL; Monocyte% 7.1 % (0-10); NRBC Flagged by Analyzer 0 % (0-5); Neutrophil # 5.22 X10^3/uL (2.7-7.7); Neutrophil % 67.6 % (47-70); Platelet Count 194 K/mm3 (150-450); RBC Distribution Width CV 14.4 % (11.6-14.6); Red Blood Count 4.58 M/mm3 (4.6-6.2); White Blood Count 7.7 K/mm3 (4.4-11.0)
[2024-01-29 07:03] LABS: Anion Gap 6 (5-15); BUN 24 mg/dL (7-18); BUN/Creat Ratio 25.2 RATIO (10-20); Calcium,Total 9.4 mg/dL (8.5-10.1); Chloride 108 mmol/L (98-107); Creatinine, Serum 0.95 mg/dL (0.70-1.30); EST Glomerular Filtration Rate 82 mL/min (>60); Est Glom Filt Rate - Afr Amer 100 mL/min (>60); Estimated Creatinine Clearance 82.64 ml/min; Glucose 118 mg/dL (74-106); Potassium 3.2 mmol/L (3.5-5.1); Sodium Level 139 mmol/L (136-145)
[2024-01-29] MEDS: Potassium Chloride Oral Tablet 20 MEQ PO (09:09)
[2024-01-29] MEDS: Furosemide 40 MG/4 ML Vial IV ×2 (09:09→13:59)
[2024-01-29] MEDS: Ascorbic Acid 500 MG Tablet 1000 MG PO ×2 (09:10→17:09)
[2024-01-29] MEDS: Losartan Potassium 50 MG Tablet 125 MG PO (09:10)
[2024-01-29] MEDS: Zinc Sulfate 50 mg zinc (220 mg) ORAL capsule PO (09:10)
[2024-01-29] MEDS: Lactobacillis Acidophilus 1 CAP PO ×2 (09:10→21:25)
[2024-01-29] MEDS: Nystatin Powder 15gm Bottle 1 APPLIC TOPICAL ×2 (09:11→21:26)
[2024-01-29] MEDS: Petrolatum 33% Tube 1 APPLIC TOPICAL (09:11)
[2024-01-29] MEDS: Cholecalciferol (Vit D3) 125 MCG CAPSULE (5,000 UNITS) PO (09:11)
[2024-01-29] MEDS: Menthol/Lanolin/Calamine/Znox 113 GM Tube 1 APPLIC TOPICAL ×2 (09:12→21:26)
[2024-01-29] MEDS: oxyCODONE 5 MG Tablet PO ×2 (09:17→21:25)
[2024-01-29] MEDS: Ensure Plus High Protein 120 ML LIQUID PO ×4 (09:24→22:00)
--- NOTE | 2024-01-29 11:54 | PCM.PN.HOSP ---
Reason for Visit Reason for Visit: Diagnoses Morbid (severe) obesity due to excess calories (01/26/24) Venous insufficiency (chronic) (peripheral) (01/26/24) Cellulitis of right lower limb (01/26/24) Cellulitis of unspecified part of limb (01/26/24) Panniculitis, unspecified (01/26/24) Difficulty in walking, not elsewhere classified (01/26/24) Weakness (01/26/24) Other malaise (01/26/24) Edema, unspecified (01/26/24) Body mass index [BMI] 40.0-44.9, adult (01/26/24) Personal history of transient ischemic attack (TIA), and cerebral infarction without residual deficits (01/26/24) Objective Data Objective Data Vital Signs: Vital Signs Temp Pulse Resp BP Pulse Ox O2 Del Method 97.7 F L 63 20 H 153/99 H 96 Room Air 01/29/24 05:51 01/29/24 05:51 01/29/24 05:51 01/29/24 05:51 01/29/24 05:51 01/29/24 07:51 Oxygen Delivery Method Room Air Weight: 261 lb 0.437 oz Body Mass Index (BMI) 41.9 Intake & Output: Intake and Output for Last 24 Hours 01/27/24 01/28/24 01/29/24 23:59 23:59 23:59 Intake Total 2636.5 / 3161.5 1125 / 1625 1500 / 1500 Output Total 900 / 1475 3500 / 3900 700 / 700 Balance 1736.5 / 1686.5 -2375 / -2275 800 / 800 Lab / Micro Data 01/29/24 06:16 01/29/24 06:16 Labs: Laboratory Results - last 24 hr 01/29/24 06:16: WBC 7.7, RBC 4.58 L, Hgb 14.2, Hct 42.6, MCV 93.0, MCH 31.0, MCHC 33.3, RDW Std Deviation 49.0 H, RDW Coeff of Naz 14.4, Plt Count 194, MPV 9.7, Immature Gran % (Auto) 0.500, Neut % (Auto) 67.6, Lymph % (Auto) 18.7 L, [place] % (Auto) 7.1, Eos % (Auto) 5.6 H, Baso % (Auto) 0.5, Absolute Neuts (auto) 5.2, Absolute Lymphs (auto) 1.44, Nucleated RBC % 0, Sodium 139, Potassium 3.2 L, Chloride 108 H, Carbon Dioxide 25.0, Anion Gap 6, BUN 24 H, Creatinine 0.95, Estim Creat Clear Calc 82.64, Est GFR (MDRD) Af Amer 100, Est GFR (MDRD) Non-Af 82, BUN/Creatinine Ratio 25.2 H, Glucose 118 H, Calcium 9.4 Physical Exam Narrative Seen and examined. Patient has history of recurrent cellulitis with chronic lower extremity swelling with chronic scar and healed wounds Leg swelling is much improved Physical exam General: Alert, Oriented x3, Cooperative. BMI 42.0 kg/m? HEENT: Atraumatic, PERRLA, EOMI, Normocephalic Oral: No Gingival or Mucosal Lesions/ Ulcerations Neck: Supple, No JVD, Negative Carotid Bruits Chest wall/Lungs: Air entry diminished in bilateral lung bases. No crepitation/rhonchi Cardiovascular: Regular rate, Regular Rhythm, Normal S1, Normal S2, No M/G/R Abdomen: Bowel Sounds Present, Soft, Non Tender, Non-Distended : No dysuria. No renal angle tenderness. No suprapubic tenderness. Extremities: No edema, Capillary Refill Less than 3 Seconds Skin: Chronic scarring but no current open wounds/ulcer. Grayish discoloration, lipodermatosclerosis. Musculoskeletal:. Lower legs Jaden wrap bandage. No Tenderness to Palpation of Joints or Extremities Neurological: Cranial nerves II-XII grossly intact, DTR 2+/4. Tenderness of both legs, neuropathy. Psych/Mental Status: Normal Affect, Appropriate. Assessment & Plan Assessment/Plan (1) Generalized weakness: (2) Venous insufficiency (chronic) (peripheral): (3) Cellulitis of right lower leg: PLAN: Plan 1. Bilateral lower extremity edema. No fever or leukocytosis. Lower legs does not show acute features of cellulitis including pain, tenderness or erythema. Patient was evaluated by ID public relations consultant. Jaden wrap and diuresis recommended. IV antibiotics were discontinued. Wound nurses consulted 01/28: Patient is well diuresed therefore Lasix 40 IV discontinued. Will reevaluate tomorrow and then resume oral Lasix after 1 to 2 days. No signs of infection. Pending pre-CERT. 2. Generalized weakness and debility- multifactorial -PT/OT following 3. Anasarca/lower extremity edema secondary to chronic venous stasis/lipodermatosclerosis -Chronic. Oral Lasix changed to IV Lasix. For hypokalemia - resolved 01/28: Potassium 3.2. Potassium getting replaced 5 chronic atrial fibrillation -Rate controlled but not on any rate controlling medications -Continue rivaroxaban Carotid artery stenosis -Minimal and less than 50% on most recent imaging -Continue ongoing medical management and aggressive treatment -Ongoing outpatient follow-up Right-sided hemiparesis secondary to acute stroke -Continue PT/OT -Case management/social work consulted--> anticipate patient will need placement at discharge -Patient would likely benefit from long-term placement CAD/essential HTN/HPL -Continue home atorvastatin -Continue home losartan History of BPH -Currently not on any medication -Watch for urinary retention History of ANDREE -Not currently compliant with CPAP -Monitor nocturnal oxygenation status -Likely part of the etiology for his chronic lower extremity swelling Morbid obesity -BMI 42 -Recommend weight loss -Complicates treatment, prognosis, outcomes History of DVT -Fully anticoagulated with Xarelto CODE STATUS -Full code Charges/Coding Visit Charges Inpatient E&M: 49489 Subs Hosp L2
[2024-01-29 13:49] VITALS: BP 108/66; PULSE 63; RESP 16; TEMP 36.6; O2SAT 96
--- NOTE | 2024-01-29 15:54 | CHAPLAIN ---
Type of Pastoral Visit _x__ Initial Visit ___ Follow-up Visit ___ On-call Visit ___ General Patient Visit ___ Spiritual Assessment ___ Family Conference ___ Bereavement ___ Rapid Response ___ Code Blue ___ Other (describe below) Pastoral Care Referral From _x__ Patient ___ Family ___ Nurse ___ Physician ___ Marketing Designer ___ Automatic Spooler Operator ___ Other (describe below) Sacrament/Intervention _x__ Active listening ___ Anointing ___ Yarsanism ___ Bereavement ___ Communion ___ Estefany exploration ___ ___ Life review _x__ Prayer ___ Reconciliation ___ Sacrament of Sick _x__ Supportive presence ___ Wedding ___ Other (describe below) Pastoral Comments patient was napping but easily awakened; pt was able to converse easily and express his thoughts and feelings; 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
[2024-01-29] MEDS: Rivaroxaban 20 MG Tablet PO (17:09)
[2024-01-29] MEDS: Potassium Chloride Oral Tablet 20 MEQ 40 MEQ PO (17:10)
[2024-01-29 20:47] VITALS: BP 114/77; PULSE 63; RESP 15; TEMP 36.8; O2SAT 97
[2024-01-29] MEDS: Atorvastatin Calcium 40 MG Tablet PO (21:25)
[2024-01-30 02:31] VITALS: BMI 41.9
[2024-01-30 04:33] VITALS: BP 134/90; PULSE 65; RESP 15; TEMP 36.7; O2SAT 96
[2024-01-30] MEDS: Gabapentin 300 MG Capsule PO ×3 (05:36→21:59)
[2024-01-30 07:40] LABS: Anion Gap 5 (5-15); BUN 23 mg/dL (7-18); BUN/Creat Ratio 25.2 RATIO (10-20); Calcium,Total 9.5 mg/dL (8.5-10.1); Chloride 107 mmol/L (98-107); Creatinine, Serum 0.91 mg/dL (0.70-1.30); EST Glomerular Filtration Rate 86 mL/min (>60); Est Glom Filt Rate - Afr Amer 104 mL/min (>60); Estimated Creatinine Clearance 86.27 ml/min; Glucose 94 mg/dL (74-106); Potassium 3.4 mmol/L (3.5-5.1); Sodium Level 140 mmol/L (136-145)
[2024-01-30] MEDS: Ascorbic Acid 500 MG Tablet 1000 MG PO ×2 (08:12→16:51)
[2024-01-30] MEDS: Zinc Sulfate 50 mg zinc (220 mg) ORAL capsule PO (08:12)
[2024-01-30] MEDS: Potassium Chloride Oral Tablet 20 MEQ 40 MEQ PO ×2 (08:13→16:51)
--- NOTE | 2024-01-30 08:49 | WOUNDNOTE ---
In to reassess bilateral lower legs. removed the SB wraps and dressings. no open areas. no redness noted. washed legs and feet with soap and water. pat dry. applied lotion and wrapped legs with kerlix. reapplied the SB wraps. pt tolerated well. awaiting precert to OR.
--- NOTE | 2024-01-30 09:52 | CASEMGMT ---
Addendum entered by Hermelinda Giles 01/30/24 15:46: Updated [facility] that pt was denied for SNF and pt will not dc this date. Will update tomorrow. Original Note: Spoke with Jaimie at [facility], pt is active with their C for SN, PT, OT, ST and [facility]. Updated via [facility] that pt plans to dc to [facility] when precert obtained.
[2024-01-30 09:59] VITALS: BP 112/75; PULSE 76; RESP 16; TEMP 36.6; O2SAT 96
[2024-01-30] MEDS: Lactobacillis Acidophilus 1 CAP PO ×2 (10:07→21:59)
[2024-01-30] MEDS: Menthol/Lanolin/Calamine/Znox 113 GM Tube 1 APPLIC TOPICAL ×2 (10:07→21:59)
[2024-01-30] MEDS: Losartan Potassium 50 MG Tablet 125 MG PO (10:08)
[2024-01-30] MEDS: Cholecalciferol (Vit D3) 125 MCG CAPSULE (5,000 UNITS) PO (10:08)
[2024-01-30] MEDS: Nystatin Powder 15gm Bottle 1 APPLIC TOPICAL ×2 (10:08→22:00)
[2024-01-30] MEDS: Petrolatum 33% Tube 1 APPLIC TOPICAL (10:09)
[2024-01-30] MEDS: Ensure Plus High Protein 120 ML LIQUID PO ×4 (10:12→22:00)
[2024-01-30] MEDS: oxyCODONE 5 MG Tablet PO (10:14)
[2024-01-30 10:47] LABS: Magnesium 1.9 mg/dL (1.6-2.6)
[2024-01-30 13:28] VITALS: BP 143/89; PULSE 76; RESP 16; TEMP 37; O2SAT 97
--- NOTE | 2024-01-30 14:50 | PCM.PN.HOSP ---
Reason for Visit Reason for Visit: Diagnoses Morbid (severe) obesity due to excess calories (01/26/24) Venous insufficiency (chronic) (peripheral) (01/26/24) Cellulitis of right lower limb (01/26/24) Cellulitis of unspecified part of limb (01/26/24) Panniculitis, unspecified (01/26/24) Difficulty in walking, not elsewhere classified (01/26/24) Weakness (01/26/24) Other malaise (01/26/24) Edema, unspecified (01/26/24) Body mass index [BMI] 40.0-44.9, adult (01/26/24) Personal history of transient ischemic attack (TIA), and cerebral infarction without residual deficits (01/26/24) Objective Data Objective Data Vital Signs: Vital Signs Temp Pulse Resp BP Pulse Ox O2 Del Method 98.6 F 76 16 143/89 H 97 Room Air 01/30/24 13:28 01/30/24 13:28 01/30/24 13:28 01/30/24 13:28 01/30/24 13:28 01/30/24 13:28 Oxygen Delivery Method Room Air Weight: 261 lb 0.437 oz Body Mass Index (BMI) 41.9 Intake & Output: Intake and Output for Last 24 Hours 01/28/24 01/29/24 01/30/24 23:59 23:59 23:59 Intake Total 1125 / 1625 1500 / 1500 Output Total 3500 / 3900 1700 / 2000 1400 / 1400 Balance -2375 / -2275 -200 / -500 -1400 / -1400 Lab / Micro Data 01/29/24 06:16 01/30/24 06:10 Labs: Laboratory Results - last 24 hr 01/30/24 06:10: Sodium 140, Potassium 3.4 L, Chloride 107, Carbon Dioxide 28.0, Anion Gap 5, BUN 23 H, Creatinine 0.91, Estim Creat Clear Calc 86.27, Est GFR (MDRD) Af Amer 104, Est GFR (MDRD) Non-Af 86, BUN/Creatinine Ratio 25.2 H, Glucose 94, Calcium 9.5, Phosphorus 4.0, Magnesium 1.9 Physical Exam Narrative Seen and examined. Patient has history of recurrent cellulitis with chronic lower extremity swelling with chronic scar and healed wounds Leg swelling is much improved. Patient has history of stroke in the past with right-sided hemiparesis with contracture in right upper extremity. Denied by insurance for SNF. Physical exam General: Alert, Oriented x3, Cooperative. BMI 42.0 kg/m? HEENT: Atraumatic, PERRLA, EOMI, Normocephalic Oral: No Gingival or Mucosal Lesions/ Ulcerations Neck: Supple, No JVD, Negative Carotid Bruits Chest wall/Lungs: Air entry diminished in bilateral lung bases. No crepitation/rhonchi Cardiovascular: Regular rate, Regular Rhythm, Normal S1, Normal S2, No M/G/R Abdomen: Bowel Sounds Present, Soft, Non Tender, Non-Distended : No dysuria. No renal angle tenderness. No suprapubic tenderness. Extremities: No edema, Capillary Refill Less than 3 Seconds Skin: Chronic scarring but no current open wounds/ulcer. Grayish discoloration, lipodermatosclerosis. Musculoskeletal:. Lower legs Jaden wrap bandage. No Tenderness to Palpation of Joints or Extremities Neurological: Cranial nerves II-XII grossly intact, DTR 2+/4. Tenderness of both legs, neuropathy. Chronic right-sided weakness from previous stroke with RUE contracture. Mild cognitive deficit from stroke Psych/Mental Status: Flat affect. Assessment & Plan Assessment/Plan (1) Generalized weakness: (2) Venous insufficiency (chronic) (peripheral): (3) Cellulitis of right lower leg: PLAN: Plan 1. Bilateral lower extremity edema. No fever or leukocytosis. Lower legs does not show acute features of cellulitis including pain, tenderness or erythema. Patient was evaluated by ID independent crop consultant. Jaden wrap and diuresis recommended. IV antibiotics were discontinued. Wound nurses consulted 01/28: Patient is well diuresed therefore Lasix 40 IV discontinued. Will reevaluate tomorrow and then resume oral Lasix after 1 to 2 days. No signs of infection. Pending pre-CERT. 2. Generalized weakness and debility- multifactorial -PT/OT following 01/29: PT note reviewed. Patient is a total assist, mobility score 7. With history of stroke of severe disability and mainly right-sided weakness. Impaired ambulatory status, decreased balance, decreased strength and decreased safety awareness overall is it seems patient is not a good rehab candidate with RUE contracture and decreased functional activity tolerance therefore denied for subacute rehab. Will need assisted living. PT recommended a longer term placement. 3. Anasarca/lower extremity edema secondary to chronic venous stasis/lipodermatosclerosis -Chronic. Oral Lasix changed to IV Lasix. For hypokalemia - resolved 01/28: Potassium 3.2. 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 -Continue PT/OT -Case management/social work consulted--> anticipate patient will need placement at discharge -Patient would likely benefit from long-term placement CAD/essential HTN/HPL -Continue home atorvastatin -Continue home losartan History of BPH -Currently not on any medication -Watch for urinary retention History of ANDREE -Not currently compliant with CPAP -Monitor nocturnal oxygenation status -Likely part of the etiology for his chronic lower extremity swelling Morbid obesity -BMI 42 -Recommend weight loss -Complicates treatment, prognosis, outcomes History of DVT -Fully anticoagulated with Xarelto CODE STATUS -Full code Charges/Coding Visit Charges Inpatient E&M: 89108 Subs Hosp L2
--- NOTE | 2024-01-30 15:19 | CASEMGMT ---
Social Work SW received message from [employer] stating pt was denied by insurance. Peer to Peer can be completed by calling [phone]. Physician updated and Peer to Peer will not be completed. SW met with pt to discuss discharge plans. Pt notified that insurance has denied stay. SW spoke with pt regarding watermelon inspector care. Pt is adamant that he cannot afford cost of nursing facility. SW spoke with pt regarding applying for Medicaid. Pt refusing to apply for Medicaid as he has a house payment and a car payment to make and could not do this if his finances went toward the nursing facility. SW spoke to pt regarding physical needs, that in therapy today pt was MAX A x2 and unable to stand even with this level of assist. Pt admits that it took 5 staff members to get him from the bed to the chair. SW inquiring about safety at home and how pt will be able to safely function. Pt lives with his son, but his son works during the day. Pt does state he was unable to get out of bed while at home and that squad had to be called. Again SW encouraged pt to consider Medicaid and shelter and pt continues to refuse. SW spoke with pt regarding hiring private duty aids each day and pt is not agreeable to this due to cost. With pt permission, phone call to pt's son and updated on above. Pt's son Naeem is expressing frustration with situation and does not feel pt can return home. Naeem states that he has spoke to pt before regarding Medicaid and shelter and pt has refused and does not listen to me. SW will continue to meet with pt and assist with problem solving home situation. Pt is not safe to return home at this time. LEIA Chen
[2024-01-30] MEDS: Rivaroxaban 20 MG Tablet PO (16:51)
[2024-01-30] MEDS: Acetaminophen 325 MG Tablet 650 MG PO (21:59)
[2024-01-30] MEDS: Atorvastatin Calcium 40 MG Tablet PO (21:59)
[2024-01-30 22:03] VITALS: BP 139/93; PULSE 79; RESP 15; TEMP 36.9; O2SAT 98
[2024-01-31 03:00] VITALS: BP 118/70; PULSE 85; RESP 15; TEMP 36.8; O2SAT 97
[2024-01-31 05:45] VITALS: BMI 41.9
[2024-01-31] MEDS: Gabapentin 300 MG Capsule PO ×3 (06:24→20:47)
[2024-01-31] MEDS: Cholecalciferol (Vit D3) 125 MCG CAPSULE (5,000 UNITS) PO (07:31)
[2024-01-31] MEDS: Losartan Potassium 50 MG Tablet 125 MG PO (07:32)
[2024-01-31] MEDS: Zinc Sulfate 50 mg zinc (220 mg) ORAL capsule PO (07:33)
[2024-01-31] MEDS: Lactobacillis Acidophilus 1 CAP PO ×2 (07:33→20:48)
[2024-01-31] MEDS: Ascorbic Acid 500 MG Tablet 1000 MG PO ×2 (07:33→17:10)
[2024-01-31] MEDS: Potassium Chloride Oral Tablet 20 MEQ 40 MEQ PO ×2 (07:33→17:10)
[2024-01-31] MEDS: Menthol/Lanolin/Calamine/Znox 113 GM Tube 1 APPLIC TOPICAL (07:35)
[2024-01-31] MEDS: Nystatin Powder 15gm Bottle 1 APPLIC TOPICAL ×2 (07:35→20:48)
[2024-01-31] MEDS: Ensure Plus High Protein 120 ML LIQUID PO ×3 (07:38→17:13)
[2024-01-31] MEDS: Petrolatum 33% Tube 1 APPLIC TOPICAL (07:39)
--- NOTE | 2024-01-31 08:13 | WOUNDNOTE ---
Pt does not want wraps reapplied at this time. the redness has resolved and the edema is greatly improved. no open areas noted. pt resting in chair with legs elevated. wll monitor.
[2024-01-31 09:15] VITALS: BP 123/87; PULSE 84; RESP 16; TEMP 36.9; O2SAT 97
[2024-01-31 11:39] VITALS: BP 108/58; PULSE 67; RESP 16; TEMP 37; O2SAT 98
--- NOTE | 2024-01-31 14:55 | CASEMGMT ---
Addendum entered by Mary Salcido 02/01/24 13:53: [facility] has declined. SW updated. Mary Salcido DC Planning Asst. Addendum entered by Mary Salcido 02/01/24 12:03: Despite acceptance response on [facility], [facility] has not accepted and cannot do so until pts son provides necessary documentation for [facility]. SW updated. Mary Salcido DC Planning Asst. Addendum entered by Mary Salcido 02/01/24 09:46: Msg sent via [facility] to [place] to check on status of referral. left for admissions at [facility] for the same. Mary Salcido DC Planning Asst. Addendum entered by Mary Salcido 02/01/24 09:40: [facility] declined referral. Mary Salcido DC Planning Asst. Addendum entered by Mary Salcido 01/31/24 15:25: VM left for [facility] alerting them of incoming referral. Mary Salcido DC Planning Asst. Addendum entered by Mary Salcido 01/31/24 15:24: [facility] declined referral. Mary Salcido DC Planning Asst. Original Note: Discharge Planning Referral sent to [facility], [facility], [facility], and [facility]. Mary Salcido DC Planning Asst.
--- NOTE | 2024-01-31 16:11 | CASEMGMT ---
Social work This JESSIE and JESSIE Gipson met with pt and continued discussion regarding discharge plan. Pt continues to state that he plans to return home and is refusing SNF and to apply for Medicaid. Much discussion surrounding safety at home and inability for pt or pt's son to care for pt. Pt gave permission for SW to phone pts son. Call placed to pt son Naeem and discussed staff concerns with plan for pt to return home. Naeem does not feel pt is able to return home at this time and is also concerned about pt safety at home. While Naeem is available to assist pt while he is not working, he is not physically able to lift pt by himself. Extensive discussion regarding SNF placement and pt's finances and financial concerns. Naeem feels it would be best if pt applies for Medicaid and goes to SNF. JESSIE met with pt and informed him of discussion with Naeem. Pt is hesitantly agreeable to apply for Medicaid for SNF placement. JESSIE called Marley with [facility] and requested she complete Medicaid application today. A list of SNF providers including quality and resource use data and consistent with the patient?s preferred geographic region, medical needs, and insurance network were provided from the [facility] Guide. [facility] has already stated they cannot accept pt with pending Medicaid. Pt does not want to go to [facility]. Pt preferred providers are [place], [facility], [facility], and [facility]. DC claims assistant notified and referrals to be sent. Pt son arrives at hospital and requesting to meet with JESSIE. JESSIE met with pt and son and continued discussion regarding dc. Pt is agreeable to apply for Medicaid and SW reviewed list of choices with son. Also updated that [facility] is unable to accept, [facility] may be able to accept and no response yet from [facility] and [place]. Pt and son also requesting referrals to [facility] and [facility]. DC claims assistant updated and to send additional referrals. Plan: SNF, pending Medicaid application and [facility] approval LEIA Chen
[2024-01-31 16:12] VITALS: BP 122/89; PULSE 74; RESP 16; TEMP 36.9; O2SAT 98
--- NOTE | 2024-01-31 16:14 | CASEMGMT ---
Addendum entered by Mary Salcido 02/01/24 13:52: [facility] cannot accept unless pt has 30d upfront. Referral cancelled. Mary Salcido DC Planning Asst. Original Note: Discharge Planning Referral sent to [facility] and [facility]. Mary Salcido DC Planning Asst.
--- NOTE | 2024-01-31 16:56 | PN.HOSP_ITS ---
Reason for Visit Reason for Visit: Diagnoses Morbid (severe) obesity due to excess calories (01/26/24) Venous insufficiency (chronic) (peripheral) (01/26/24) Cellulitis of right lower limb (01/26/24) Cellulitis of unspecified part of limb (01/26/24) Panniculitis, unspecified (01/26/24) Difficulty in walking, not elsewhere classified (01/26/24) Weakness (01/26/24) Other malaise (01/26/24) Edema, unspecified (01/26/24) Body mass index [BMI] 40.0-44.9, adult (01/26/24) Personal history of transient ischemic attack (TIA), and cerebral infarction without residual deficits (01/26/24) Objective Data Objective Data Vital Signs: Vital Signs Temp Pulse Resp BP Pulse Ox O2 Del Method 98.5 F 74 16 122/89 H 98 Room Air 01/31/24 16:12 01/31/24 16:12 01/31/24 16:12 01/31/24 16:12 01/31/24 16:12 01/31/24 16:12 Oxygen Delivery Method Room Air Weight: 261 lb 0.437 oz Body Mass Index (BMI) 41.9 Intake & Output: Intake and Output for Last 24 Hours 01/29/24 01/30/24 01/31/24 23:59 23:59 23:59 Intake Total 1500 / 1500 1570 / 1570 Output Total 1700 / 2000 1400 / 1800 1100 / 1100 Balance -200 / -500 -1400 / -1800 470 / 470 Lab / Micro Data 01/29/24 06:16 01/30/24 06:10 Physical Exam Narrative Seen and examined. No acute change. Legs look better. Leg swelling is much improved. Patient has history of recurrent cellulitis with chronic lower extremity swelling with chronic scar and healed wounds Patient has history of stroke in the past with right-sided hemiparesis with contracture in right upper extremity. Denied by insurance for SNF. Physical exam General: Alert, Oriented x3, Cooperative. BMI 42.0 kg/m? HEENT: Atraumatic, PERRLA, EOMI, Normocephalic Oral: No Gingival or Mucosal Lesions/ Ulcerations Neck: Supple, No JVD, Negative Carotid Bruits Chest wall/Lungs: Air entry diminished in bilateral lung bases. No crepitation/rhonchi Cardiovascular: Regular rate, Regular Rhythm, Normal S1, Normal S2, No M/G/R Abdomen: Bowel Sounds Present, Soft, Non Tender, Non-Distended : No dysuria. No renal angle tenderness. No suprapubic tenderness. Extremities: No edema, Capillary Refill Less than 3 Seconds Skin: Chronic scarring but no current open wounds/ulcer. Grayish discoloration, lipodermatosclerosis. Musculoskeletal:. Lower legs Jaden wrap bandage. No Tenderness to Palpation of Joints or Extremities Neurological: Cranial nerves II-XII grossly intact, DTR 2+/4. Tenderness of both legs, neuropathy. Chronic right-sided weakness from previous stroke with RUE contracture. Mild cognitive deficit from stroke Psych/Mental Status: Flat affect. Assessment & Plan Assessment/Plan (1) Generalized weakness: (2) Venous insufficiency (chronic) (peripheral): (3) Cellulitis of right lower leg: PLAN: Plan 1. Bilateral lower extremity edema. No fever or leukocytosis. Lower legs does not show acute features of cellulitis including pain, tenderness or erythema. Patient was evaluated by ID customer service sales consultant. Jaden wrap and diuresis recommended. IV antibiotics were discontinued. Wound nurses consulted 01/28: Patient is well diuresed therefore Lasix 40 IV discontinued. Will reevaluate tomorrow and then resume oral Lasix after 1 to 2 days. No signs of infection. Pending pre-CERT. 01/29: No acute change. Patient pending pre-CERT. 2. Generalized weakness and debility- multifactorial -PT/OT following 01/29: PT note reviewed. Patient is a total assist, mobility score 7. With history of stroke of severe disability and mainly right-sided weakness. Impaired ambulatory status, decreased balance, decreased strength and decreased safety awareness overall is it seems patient is not a good rehab candidate with RUE contracture and decreased functional activity tolerance therefore denied for subacute rehab. Will need assisted living. PT recommended a longer term placement. 01/30: Discussed with the case resolution specialist and social service technician. 3. Anasarca/lower extremity edema secondary to chronic venous stasis/lipodermatosclerosis -Chronic. Oral Lasix changed to IV Lasix. For hypokalemia - resolved 01/28: Potassium 3.2. 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 -Continue PT/OT -Case management/social work consulted--> anticipate patient will need placement at discharge -Patient would likely benefit from long-term placement CAD/essential HTN/HPL -Continue home atorvastatin -Continue home losartan History of BPH -Currently not on any medication -Watch for urinary retention History of ANDREE -Not currently compliant with CPAP -Monitor nocturnal oxygenation status -Likely part of the etiology for his chronic lower extremity swelling Morbid obesity -BMI 42 -Recommend weight loss -Complicates treatment, prognosis, outcomes History of DVT -Fully anticoagulated with Xarelto CODE STATUS -Full code Charges/Coding Visit Charges Inpatient E&M: 67515 Subs Hosp L2
[2024-01-31] MEDS: Rivaroxaban 20 MG Tablet PO (17:10)
[2024-01-31 20:38] VITALS: BP 136/87; PULSE 68; RESP 16; TEMP 36.6; O2SAT 99
[2024-01-31] MEDS: Atorvastatin Calcium 40 MG Tablet PO (20:48)
[2024-01-31] MEDS: Acetaminophen 325 MG Tablet 650 MG PO (20:54)
--- NOTE | 2024-02-01 00:39 | NURSING ---
Patient complaining about IV bothering him and requested for me to take it out. Charge nurse asked Dr. Wilson and she said it was ok for him to not have IV access.
[2024-02-01 01:19] VITALS: BP 129/94; PULSE 69; RESP 16; TEMP 36.6; O2SAT 95
[2024-02-01] MEDS: Menthol/Lanolin/Calamine/Znox 113 GM Tube 1 APPLIC TOPICAL ×2 (01:27→09:46)
[2024-02-01 05:03] VITALS: BP 149/89; PULSE 70; RESP 16; TEMP 36.7; O2SAT 97
[2024-02-01] MEDS: Gabapentin 300 MG Capsule PO ×2 (05:06→13:53)
[2024-02-01] MEDS: Acetaminophen 325 MG Tablet 650 MG PO ×2 (05:09→13:53)
--- NOTE | 2024-02-01 08:12 | WOUNDNOTE ---
Washed legs and feet with soap and water. pat dry. applied lotion and reapplied the SB wraps. pt tolerated well. encouraged patient to keep legs elevated as much as possible. redness remains resolved at this time. pt awaiting NH placement but states he is concerned the state will take my truck and my bike. it has taken 4-5 people to get patient in and out of the chair. discussed safety issues with patient being at home. pt states he can get equipment to assist at home. SW has been working on placement for patient.
--- NOTE | 2024-02-01 09:30 | CASEMGMT ---
Social Work Phone call to Davy at [facility] to check on [facility] services/eligibility. Pt [place] in [facility] but has never established care, therefore there is no current benefits for pt. LEIA Chen
[2024-02-01 09:40] VITALS: BP 113/70; PULSE 60; RESP 18; TEMP 36.6; O2SAT 95
[2024-02-01] MEDS: Nystatin Powder 15gm Bottle 1 APPLIC TOPICAL (09:45)
[2024-02-01] MEDS: Lactobacillis Acidophilus 1 CAP PO (09:46)
[2024-02-01] MEDS: Ascorbic Acid 500 MG Tablet 1000 MG PO (09:46)
[2024-02-01] MEDS: Potassium Chloride Oral Tablet 20 MEQ 40 MEQ PO (09:46)
[2024-02-01] MEDS: Zinc Sulfate 50 mg zinc (220 mg) ORAL capsule PO (09:46)
[2024-02-01] MEDS: Losartan Potassium 50 MG Tablet 125 MG PO (09:46)
[2024-02-01] MEDS: Cholecalciferol (Vit D3) 125 MCG CAPSULE (5,000 UNITS) PO (09:46)
[2024-02-01] MEDS: Ensure Plus High Protein 120 ML LIQUID PO ×2 (09:47→13:54)
--- NOTE | 2024-02-01 12:03 | CASEMGMT ---
Social Work SW met with pt to continue discharge planning discussion. Pt did meet with Marley from [facility] yesterday and completed a Medicaid application. Pt now stating that he will not go to a SNF and will not comply with Medicaid. Pt states that I know my kids will be mad, but I am going to go home. Pt states he will hire someone to come into the house daily. Pt would like a bariatric bedside commode and a sit to stand lift. SW spoke with pt again about risks of returning home, including deconditioning, inability to get out of bed, inability to use the bathroom and possibility of poor outcomes. SW reiterated safety concerns and amount of help pt is currently requiring. Pt states he is understanding and accepting of risks and will not comply with Medicaid regulations and therefore will not go to a SNF. Phone call place to pt son Naeem and VM left to return call to inform of pt decision. LEIA Chen
--- NOTE | 2024-02-01 12:30 | PCM.PN.HOSP ---
Reason for Visit Reason for Visit: Diagnoses Morbid (severe) obesity due to excess calories (01/26/24) Venous insufficiency (chronic) (peripheral) (01/26/24) Cellulitis of right lower limb (01/26/24) Cellulitis of unspecified part of limb (01/26/24) Panniculitis, unspecified (01/26/24) Difficulty in walking, not elsewhere classified (01/26/24) Weakness (01/26/24) Other malaise (01/26/24) Edema, unspecified (01/26/24) Body mass index [BMI] 40.0-44.9, adult (01/26/24) Personal history of transient ischemic attack (TIA), and cerebral infarction without residual deficits (01/26/24) Objective Data Objective Data Vital Signs: Vital Signs Temp Pulse Resp BP Pulse Ox O2 Del Method 97.8 F 60 18 113/70 95 Room Air 02/01/24 09:40 02/01/24 09:40 02/01/24 09:40 02/01/24 09:40 02/01/24 09:40 02/01/24 09:40 Oxygen Delivery Method Room Air Weight: 261 lb 0.437 oz Body Mass Index (BMI) 41.9 Intake & Output: Intake and Output for Last 24 Hours 01/30/24 01/31/24 02/01/24 23:59 23:59 23:59 Intake Total 2170 / 2170 50 / 50 Output Total 1400 / 1800 1300 / 1300 150 / 150 Balance -1400 / -1800 870 / 870 -100 / -100 Lab / Micro Data 01/29/24 06:16 01/30/24 06:10 Physical Exam Narrative Seen and examined. No acute change. Legs look better. Leg swelling is much improved. Medicaid pending but applied. Patient moved bowel Patient has history of recurrent cellulitis with chronic lower extremity swelling with chronic scar and healed wounds Patient has history of stroke in the past with right-sided hemiparesis with contracture in right upper extremity. Denied by insurance for SNF. Physical exam General: Alert, Oriented x3, Cooperative. BMI 42.0 kg/m? HEENT: Atraumatic, PERRLA, EOMI, Normocephalic Oral: No Gingival or Mucosal Lesions/ Ulcerations Neck: Supple, No JVD, Negative Carotid Bruits Chest wall/Lungs: Air entry diminished in bilateral lung bases. No crepitation/rhonchi Cardiovascular: Regular rate, Regular Rhythm, Normal S1, Normal S2, No M/G/R Abdomen: Bowel Sounds Present, Soft, Non Tender, Non-Distended : No dysuria. No renal angle tenderness. No suprapubic tenderness. Extremities: No edema, Capillary Refill Less than 3 Seconds Skin: Chronic scarring but no current open wounds/ulcer. Grayish discoloration, lipodermatosclerosis. Musculoskeletal:. Lower legs Jaden wrap bandage. No Tenderness to Palpation of Joints or Extremities Neurological: Cranial nerves II-XII grossly intact, DTR 2+/4. Tenderness of both legs, neuropathy. Chronic right-sided weakness from previous stroke with RUE contracture. Mild cognitive deficit from stroke Psych/Mental Status: Flat affect. Assessment & Plan Assessment/Plan (1) Generalized weakness: (2) Venous insufficiency (chronic) (peripheral): (3) Cellulitis of right lower leg: PLAN: Plan 1. Bilateral lower extremity edema. No fever or leukocytosis. Lower legs does not show acute features of cellulitis including pain, tenderness or erythema. Patient was evaluated by ID eyewear consultant. Jaden wrap and diuresis recommended. IV antibiotics were discontinued. Wound nurses consulted 01/28: Patient is well diuresed therefore Lasix 40 IV discontinued. Will reevaluate tomorrow and then resume oral Lasix after 1 to 2 days. No signs of infection. Pending pre-CERT. 01/29: No acute change. Patient pending pre-CERT. 01/31: Edema has improved. 2. Generalized weakness and debility- multifactorial -PT/OT following 01/29: PT note reviewed. Patient is a total assist, mobility score 7. With history of stroke of severe disability and mainly right-sided weakness. Impaired ambulatory status, decreased balance, decreased strength and decreased safety awareness overall is it seems patient is not a good rehab candidate with RUE contracture and decreased functional activity tolerance therefore denied for subacute rehab. Will need assisted living. PT recommended a longer term placement. 01/30: Discussed with the behavioral health case manager and older adult social work specialist. 01/31: Medicaid has been applied. Discussed with the older adult social work specialist. Probably will stay for a long time. 3. Anasarca/lower extremity edema secondary to chronic venous stasis/lipodermatosclerosis -Chronic. Oral Lasix changed to IV Lasix. For hypokalemia - resolved 01/28: Potassium 3.2. 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 -Continue PT/OT -Case management/social work consulted--> anticipate patient will need placement at discharge -Patient would likely benefit from long-term placement CAD/essential HTN/HPL -Continue home atorvastatin -Continue home losartan History of BPH -Currently not on any medication -Watch for urinary retention History of ANDREE -Not currently compliant with CPAP -Monitor nocturnal oxygenation status -Likely part of the etiology for his chronic lower extremity swelling Morbid obesity -BMI 42 -Recommend weight loss -Complicates treatment, prognosis, outcomes History of DVT -Fully anticoagulated with Xarelto CODE STATUS -Full code Charges/Coding Visit Charges Inpatient E&M: 23086 Subs Hosp L2
--- NOTE | 2024-02-01 12:46 | CASEMGMT ---
Addendum entered by Hermelinda Giles 02/01/24 15:11: RN CM into pt room, pt sitting up in chair. Pt is aware that [facility] was notified that he will be dc'd today. He denied the need to switch agencies or see a list of other options. Pt is aware that the 3 in 1 bariatric order was [place] [facility] [place] be delivered to his home. He is also aware that the SW will be setting up transportation and she will notify him of the time he will be going home. Pt denies any further homegoing needs at this time. Addendum entered by Hermelinda Giles 02/01/24 15:06: 3 in 1 commode referral sent to [facility] [place] [facility] at this time. Also send dc instructions to [facility] for referral via careport. Original Note: Message to [facility] that pt will dc today and dc instructions will be attached when available.
--- NOTE | 2024-02-01 14:23 | CASEMGMT ---
Social Work JESSIE spoke with pt's son Naeem and explained that pt is now refusing SNF and Medicaid and will be returning home. Naeem is agreeable with this. Naeem states he spoke with Berna, who states pt will have to pay patient liability up front and pt does not have finances for this. Pt cannot financially afford SNF. Pt has a cielo lift at home and is requesting a sit to stand lift. JESSIE informed pt that insurance does not cover the cost of a sit to stand lift but it can be purchased at [facility]. Written information provided to pt on this. Pt has a BSC but feels a bariatric BSC would better fit him. JESSIE educated pt to DME options and pt has no preference. RNCM updated. JESSIE provided pt with a written list of private duty aids. JESSIE informed pt of Home Based Waiver program through [facility] [place] and pt is agreeable to this. Referral placed, pt made aware that [facility] would be calling to complete assessment in the next month. RNCM to restart home health and pt is agreeable to this. ECF referrals cancelled. Marley at [facility] notified to cancel Medicaid application. Referral made to Amber at [facility]. Physician notified of change of dc plan and that from Care Management perspective, pt can be discharged. LEIA Chen
--- NOTE | 2024-02-01 14:43 | DCINST_ITS ---
Discharge Instructions Diet Discharge Diet: 2000 mg Sodium Diet Activity Discharge Activity: Return to Normal Activity Weight Bearing Status: Weight bearing as tolerated Dressing / Incision Call your doctor if you observe: Fever of 101 or Higher, Coldness, Increased Pain, Numbness or Tingling, Change in Color, Inability to urinate, Inability to have a bowel movement, Shortness of breath, Dizziness, Fainting spells, Swelling in the ankles, Chest pain, Prolonged hiccupping, Increased palpitations (irregular heartbeat) and Calf discomfort Follow Up Care When: IN 2 WEEKS Test Results: Test results from this visit will be discussed in further detail at your follow- up appointment, if applicable. Discharge Plan Admission Admit Date/Time: 01/26/24 01:07 Primary Reason for Your Visit: Bilateral leg edema. Cellulitis ruled out. Attending Provider: Brian Durham Primary Care Provider: Shanda Jensen NP Consulting Providers: Bari Resendez; Maria Esther Smith; Naseem Brothers Discharge Orders/Prescriptions Prescriptions: New cholecalciferol (vitamin D3) 125 mcg (5,000 unit) Capsule 125 mcg PO DAILY Qty: 0 0RF Rx Instructions: Available [id number]. Continued Xarelto 20 mg Tablet 20 mg PO DINNER Qty: 0 0RF gabapentin 300 mg capsule 300 mg PO TID [facility] 10 billion cell -200 mg capsule, sprinkle 1 cap PO BID atorvastatin 40 mg Tablet 40 mg PO QHS Qty: 0 0RF furosemide 40 mg tablet 40 mg PO BIDCM 30 Days Qty: 60 0RF nystatin [Nyamyc] 100,000 unit/gram Powder 1 applic topical BID Qty: 0 0RF Protocol: *Topical Application Instructions APPLICATION INSTRUCTIONS: groin/abdominal folds menthol-zinc oxide [Calmoseptine] 0.44-20.6 % Ointment 1 applic topical BID Qty: 0 0RF Protocol: *Topical Application Instructions APPLICATION INSTRUCTIONS: buttocks acetaminophen 500 mg Tablet 1,000 mg PO Q8 PRN (Reason: pain) oxycodone 5 mg Tablet 5 mg PO Q4H PRN PRN (Reason: Pain Score 6-10) 1 Days Qty: 6 0RF Changed potassium chloride [Klor-Con M20] 20 mEq Tablet,Er Particles/Crystals 40 meq PO BIDCM Qty: 0 0RF losartan 100 mg Tablet 100 mg PO DAILY 30 Days Qty: 0 0RF Referrals / Follow Up: Shanda Jensen NP, TRANSIT OPERATOR-C [Primary Care Provider] - Within 2 Weeks Disposition Disposition (needs filled in before D/C Order can be placed): Home Health Servi ce
--- NOTE | 2024-02-01 14:50 | PCM.DC.SUM ---
Providers Date of Admission: 01/26/24 Date of Discharge: 02/01/24 Primary Care Physician: Shanda Jensen, JAVIER Consultations 01/26/24 01:38 Consult: Onc/Wound/field mechanic Routine Comment: Reason for Consult:: Bilateral lower extremity chronic venous stasis and lipo dermatos 01/28/24 11:24 Consult: Infectious Disease Routine Consulting Provider: Naseem Brothers Reason for Consult: Rec Cellulitis, chr leg swelling, H/o stroke with Rt hemiplegia EMERGENT Consult: No Notified: Yes Date Notified: 01/28/24 Time Notified: 11:25 Method of Notification: Text 01/28/24 11:25 Consult: Infectious Disease Routine Consulting Provider: Naseem Brothers Reason for Consult: recurrent cellulitis EMERGENT Consult: No Notified: Yes Date Notified: 01/28/24 Time Notified: 11:26 Method of Notification: Text Reason For Visit: B/L LE CELLULITIS, RECURRENT WITH GENERLIZED Diagnosis Discharge Diagnosis (1) Generalized weakness: Status: Acute Code(s): R53.1 - Weakness (2) Venous insufficiency (chronic) (peripheral): Status: Chronic Code(s): I87.2 - Venous insufficiency (chronic) (peripheral) (3) Cellulitis of right lower leg: Status: Acute Code(s): L03.115 - Cellulitis of right lower limb Plan 1. Bilateral lower extremity edema. No fever or leukocytosis. Lower legs does not show acute features of cellulitis including pain, tenderness or erythema. Patient was evaluated by ID banking consultant. Jaden wrap and diuresis recommended. IV antibiotics were discontinued. Wound nurses consulted 01/28: Patient is well diuresed therefore Lasix 40 IV discontinued. Will reevaluate tomorrow and then resume oral Lasix after 1 to 2 days. No signs of infection. Pending pre-CERT. 01/29: No acute change. Patient pending pre-CERT. 01/31: Edema has improved. 2. Generalized weakness and debility- multifactorial -PT/OT following 01/29: PT note reviewed. Patient is a total assist, mobility score 7. With history of stroke of severe disability and mainly right-sided weakness. Impaired ambulatory status, decreased balance, decreased strength and decreased safety awareness overall is it seems patient is not a good rehab candidate with RUE contracture and decreased functional activity tolerance therefore denied for subacute rehab. Will need assisted living. PT recommended a longer term placement. 01/30: Discussed with the case investigator and web content & social media manager. 01/31: Medicaid has been applied. Discussed with the web content & social media manager. Patient is refusing for going to residential. Patient is being discharged home with home health. Patient needs Zach lift. Zach lift: The transfer between bed in a chair or commode requires assistance of more than 1 person and without use of a lift the patient would be bed confined. Patient also needs bedside commode. Patient is unable to access bathroom safely and requires a 3 in 1 commode. Prescription for Zach lift and bedside commode signed. 3. Anasarca/lower extremity edema secondary to chronic venous stasis/lipodermatosclerosis -Chronic. Oral Lasix changed to IV Lasix. Continue frusemide 40 mg twice daily For hypokalemia - resolved 01/28: Potassium 3.2. Potassium getting replaced 01/29: Mild hypokalemia getting replacement 01/31: Patient discharged on KCl 40 mEq twice daily. 5 chronic atrial fibrillation -Rate controlled but not on any rate controlling medications -Continue rivaroxaban Carotid artery stenosis -Minimal and less than 50% on most recent imaging -Continue ongoing medical management and aggressive treatment -Ongoing outpatient follow-up Right-sided hemiparesis secondary to old stroke -Continue PT/OT -Case management/social work consulted--> anticipate patient will need placement at discharge -Patient would likely benefit from long-term placement CAD/essential HTN/HPL -Continue home atorvastatin -Continue home losartan History of BPH -Currently not on any medication -Watch for urinary retention History of ANDREE -Not currently compliant with CPAP -Monitor nocturnal oxygenation status -Likely part of the etiology for his chronic lower extremity swelling Morbid obesity -BMI 42 -Recommend weight loss -Complicates treatment, prognosis, outcomes History of DVT -Fully anticoagulated with Xarelto CODE STATUS -Full code Discharge medication reconciliation done. Discharge follow-up instructions completed. Discharge process discussed with the patient and all questions were answered to patient's satisfaction. Follow with PCP in 1 to 2 weeks Total time spent, exact 35 minutes on discharge meds reconciliation, examination, coordination of care with nurses and ancillary staff, review of imaging and blood test and discussion with the patient on follow-up instructions. Medications at Discharge Home Medications rivaroxaban 20 mg tablet (Xarelto) 20 mg PO DINNER BLOOD THINNER #0 tabs 12/28/21 Lactobacil rhamnosus GG 10 billion cell-inulin 200 mg sprinkle capsule ([employer]) 1 cap PO BID gut 09/02/23 gabapentin 300 mg capsule 300 mg PO TID neuropathy 09/02/23 atorvastatin 40 mg tablet 40 mg PO QHS choplesterol #0 tabs 09/07/23 furosemide 40 mg tablet 40 mg PO BIDCM diuretic 30 days #60 tabs 09/07/23 menthol 0.44 %-zinc oxide 20.6 % topical ointment (Calmoseptine) 1 applic topical BID #0 grams 10/25/23 nystatin 100,000 unit/gram topical powder (Nyamyc) 1 applic topical BID #0 grams 10/25/23 acetaminophen 500 mg tablet 1,000 mg PO Q8 PRN pain 12/27/23 oxycodone 5 mg tablet 5 mg PO Q4H PRN PRN Pain Score 6-10 1 day #6 tabs 01/01/24 cholecalciferol (vitamin D3) 125 mcg (5,000 unit) capsule 125 mcg PO DAILY #0 caps 02/01/24 losartan 100 mg tablet 100 mg PO DAILY blood pressure 30 days #0 tabs 02/01/24 potassium chloride 20 mEq tablet,extended release(part/cryst) (Klor-Con M) 40 meq (2 x 20 mEq) PO BIDCM potassium #0 tabs 02/01/24 Physical Exam Narrative Seen and examined. No acute change. Legs look better. Leg swelling is much improved. Patient moved bowel Patient has history of recurrent cellulitis with chronic lower extremity swelling with chronic scar and healed wounds Patient has history of stroke in the past with right-sided hemiparesis with contracture in right upper extremity. Denied by insurance for SNF. Physical exam General: Alert, Oriented x3, Cooperative. BMI 42.0 kg/m? HEENT: Atraumatic, PERRLA, EOMI, Normocephalic Oral: No Gingival or Mucosal Lesions/ Ulcerations Neck: Supple, No JVD, Negative Carotid Bruits Chest wall/Lungs: Air entry diminished in bilateral lung bases. No crepitation/rhonchi Cardiovascular: Regular rate, Regular Rhythm, Normal S1, Normal S2, No M/G/R Abdomen: Bowel Sounds Present, Soft, Non Tender, Non-Distended : No dysuria. No renal angle tenderness. No suprapubic tenderness. Extremities: No edema, Capillary Refill Less than 3 Seconds Skin: Chronic scarring but no current open wounds/ulcer. Grayish discoloration, lipodermatosclerosis. Musculoskeletal:. Lower legs Jaden wrap bandage. No Tenderness to Palpation of Joints or Extremities Neurological: Cranial nerves II-XII grossly intact, DTR 2+/4. Tenderness of both legs, neuropathy. Chronic right-sided weakness from previous stroke with RUE contracture. Mild cognitive deficit from stroke Psych/Mental Status: Flat affect. Weight / BMI Weight Weight: 261 lb 0.437 oz Body Mass Index (BMI) 41.9 ABG / Lab / Microbiology Data 01/29/24 06:16 01/30/24 06:10 D/C Instructions Discharge Diet: 2000 mg Sodium Diet Weight Bearing Status: Weight bearing as tolerated Call your doctor if you observe: Fever of 101 or Higher, Coldness, Increased Pain, Numbness or Tingling, Change in Color, Inability to urinate, Inability to have a bowel movement, Shortness of breath, Dizziness, Fainting spells, Swelling in the ankles, Chest pain, Prolonged hiccupping, Increased palpitations (irregular heartbeat) and Calf discomfort When: IN 2 WEEKS Meaningful Use Info Meaningful Use Meaningful Use Diagnoses (Choose all that apply): None applicable Ischemic Stroke Statin Dosing Therapy Reference: STATIN DOSE THERAPY REFERENCE: * Patients > 75 years receive moderate or high dose statin therapy. * Patients 75 years or YOUNGER should receive HIGH intensity statin dose unless contraindicated. You will be required to document reason for non-treatment if statin daily dose does not meet guidelines. HIGH DOSE STATIN THERAPY DAILY Atorvastatin > than or = to 40 mg Rosuvastatin > than or = to 20 mg Amlodipine + Atorvastatin > than or = to 2.5/40 mg Ezetimibe + Simvastatin 10/80 mg Simvastatin 80mg Discharge Plan Admission Admit Date/Time: 01/26/24 01:07 Primary Reason for Your Visit: Bilateral leg edema. Cellulitis ruled out. Attending Provider: Brian Durham Primary Care Provider: Shanda Jensen NP Consulting Providers: Bari Resendez; Maria Esther Smith; Naseem Brothers Discharge Orders/Prescriptions Prescriptions: New cholecalciferol (vitamin D3) 125 mcg (5,000 unit) Capsule 125 mcg PO DAILY Qty: 0 0RF Rx Instructions: Available [id number]. Continued Xarelto 20 mg Tablet 20 mg PO DINNER Qty: 0 0RF gabapentin 300 mg capsule 300 mg PO TID [facility] 10 billion cell -200 mg capsule, sprinkle 1 cap PO BID atorvastatin 40 mg Tablet 40 mg PO QHS Qty: 0 0RF furosemide 40 mg tablet 40 mg PO BIDCM 30 Days Qty: 60 0RF nystatin [Nyamyc] 100,000 unit/gram Powder 1 applic topical BID Qty: 0 0RF Protocol: *Topical Application Instructions APPLICATION INSTRUCTIONS: groin/abdominal folds menthol-zinc oxide [Calmoseptine] 0.44-20.6 % Ointment 1 applic topical BID Qty: 0 0RF Protocol: *Topical Application Instructions APPLICATION INSTRUCTIONS: buttocks acetaminophen 500 mg Tablet 1,000 mg PO Q8 PRN (Reason: pain) oxycodone 5 mg Tablet 5 mg PO Q4H PRN PRN (Reason: Pain Score 6-10) 1 Days Qty: 6 0RF Changed potassium chloride [Klor-Con M20] 20 mEq Tablet,Er Particles/Crystals 40 meq PO BIDCM Qty: 0 0RF losartan 100 mg Tablet 100 mg PO DAILY 30 Days Qty: 0 0RF Referrals / Follow Up: Shanda Jensen NP, S[employer] [Primary Care Provider] - Within 2 Weeks Disposition Disposition (needs filled in before D/C Order can be placed): Home Health Service Charges/Coding Visit Charges Inpatient E&M: 84469 Disch Hosp >30min
--- NOTE | 2024-02-01 15:05 | PHA.DC_ITS ---
Pharmacy MS Med Reconciliation Pharmacy Service has performed discharge medication reconciliation for this patient. The patient's discharge medication list was reviewed for discrepancies and discrepancies were resolved. Medications at Discharge Home Medications rivaroxaban 20 mg tablet (Xarelto) 20 mg PO DINNER BLOOD THINNER #0 tabs 12/28/21 Lactobacil rhamnosus GG 10 billion cell-inulin 200 mg sprinkle capsule ([facility] [employer] [facility]) 1 cap PO BID gut 09/02/23 gabapentin 300 mg capsule 300 mg PO TID neuropathy 09/02/23 atorvastatin 40 mg tablet 40 mg PO QHS choplesterol #0 tabs 09/07/23 furosemide 40 mg tablet 40 mg PO BIDCM diuretic 30 days #60 tabs 09/07/23 menthol 0.44 %-zinc oxide 20.6 % topical ointment (Calmoseptine) 1 applic topical BID #0 grams 10/25/23 nystatin 100,000 unit/gram topical powder (Nyamyc) 1 applic topical BID #0 grams 10/25/23 acetaminophen 500 mg tablet 1,000 mg PO Q8 PRN pain 12/27/23 oxycodone 5 mg tablet 5 mg PO Q4H PRN PRN Pain Score 6-10 1 day #6 tabs 01/01/24 cholecalciferol (vitamin D3) 125 mcg (5,000 unit) capsule 125 mcg PO DAILY #0 caps 02/01/24 losartan 100 mg tablet 100 mg PO DAILY blood pressure 30 days #0 tabs 02/01/24 potassium chloride 20 mEq tablet,extended release(part/cryst) (Klor-Con M) 40 meq (2 x 20 mEq) PO BIDCM potassium #0 tabs 02/01/24
--- NOTE | 2024-02-01 15:31 | CASEMGMT ---
Social Work Pt and son Naeem notified that [facility] is scheduled to pick pt up at 4:30 for transport home. RN lukas. LEIA Chen
--- NOTE | 2024-02-01 15:36 | CASEMGMT ---
Discharge Planning [facility] patient by cot at 4:30. SW updated. Mary Salcido DC Planning Asst.
[2024-02-01 16:00] VITALS: BP 134/80; PULSE 70; RESP 18; TEMP 36.6; O2SAT 98
--- NOTE | 2024-02-06 10:07 | CASEMGMT ---
Social Work SW received a message from Courtney Bah at [facility]. Pt had been referred for the home waiver program. Pt was called 3 times, 3 VM left and pt did not return calls. Referral was closed. LEIA Chen
== END 2024-02-01 17:39 | disposition home health service (06) | DRG 607 ==
LOC: ED 01-26 00:25 → MS3 01-26 01:35
PROVIDERS: Internal Medicine; Admitting Provider Internal Medicine; Emergency Provider Emergency Medicine; PCP Nurse Practitioner Family; Visit Provider Internal Medicine
DX: M79.3 Panniculitis, unspecified (principal); L03.115 Cellulitis of right lower limb; I69.351 Hemiplegia and hemiparesis following cerebral infarction affecting right dominant side; I48.20 Chronic atrial fibrillation, unspecified; L03.116 Cellulitis of left lower limb; Z68.41 Body mass index [BMI] 40.0-44.9, adult; I11.0 Hypertensive heart disease with heart failure; I50.9 Heart failure, unspecified; I65.29 Occlusion and stenosis of unspecified carotid artery; E66.01 Morbid (severe) obesity due to excess calories; E78.5 Hyperlipidemia, unspecified; E87.6 Hypokalemia; I25.10 Atherosclerotic heart disease of native coronary artery without angina pectoris; R26.2 Difficulty in walking, not elsewhere classified; I87.2 Venous insufficiency (chronic) (peripheral); R62.7 Adult failure to thrive; R53.81 Other malaise; Z79.01 Long term (current) use of anticoagulants; Z95.5 Presence of coronary angioplasty implant and graft; Z87.891 Personal history of nicotine dependence; Z79.899 Other long term (current) drug therapy; R53.1 Weakness; R60.0 Localized edema
CPT/HCPCS: 36415; 70450; 80048; 80053; 80202; 81001; 83605; 83735; 83880; 84100; 84443; 84484; 85025; 85027; 93005; 94668; 97162; 97166; 97530; 97535; 97802; 99285; J7030; J7040; A4216; J0744; J1940

== ENCOUNTER 2024-03-28 10:48 | Inpatient (IN) | payer MEDICARE, SELFPAY ==
[2024-03-28] VITALS (10 sets, daily range): BP systolic 102–134; BP diastolic 76–98; PULSE 77–88; RESP 13–18; TEMP 36.8–37.3; O2SAT 97–99; BMI 43.4; BMI 42.4
[2024-03-28 11:12] LABS: Absolute Lymphocyte Count 0.96 X10^3/uL (0.83-4.51); Absolute Neutrophil Count 7.7 X10^3/uL (2.0-7.7); Basophil# 0.03 X10^3/uL; Basophil% 0.3 % (0-1); Eosinophil# 0.38 X10^3/uL; Eosinophils% 3.9 % (0-5); Hematocrit 41.1 % (40-54); Hemoglobin 13.6 g/dL (13.0-16.5); Lymphocyte # 0.96 X10^3/ul (0.83-4.51); Lymphocyte % 9.7 % (19-41); Mean Corp Hgb Conc 33.1 g/dL (32-36); Mean Corpuscular Hgb 30.7 pg (27.0-32.0); Mean Corpuscular Volume 92.8 fL (80-94); Mean Platelet Vol. 9.1 fl (6.2-12.0); Monocyte# 0.72 X10^3/uL; Monocyte% 7.3 % (0-10); NRBC Flagged by Analyzer 0 % (0-5); Neutrophil # 7.73 X10^3/uL (2.7-7.7); Neutrophil % 78.4 % (47-70); Platelet Count 263 K/mm3 (150-450); RBC Distribution Width CV 14.6 % (11.6-14.6); RBC Distribution Width SD 50.4 fl (35.1-43.9); Red Blood Count 4.43 M/mm3 (4.6-6.2); White Blood Count 9.9 K/mm3 (4.4-11.0)
[2024-03-28 11:44] LABS: Anion Gap 3 (5-15); BUN 15 mg/dL (7-18); BUN/Creat Ratio 12.3 RATIO (10-20); Calcium,Total 8.8 mg/dL (8.5-10.1); Chloride 106 mmol/L (98-107); Creatinine, Serum 1.22 mg/dL (0.70-1.30); EST Glomerular Filtration Rate 62 mL/min (>60); Est Glom Filt Rate - Afr Amer 75 mL/min (>60); Estimated Creatinine Clearance 65.43 ml/min; Glucose 157 mg/dL (74-106); Potassium 3.6 mmol/L (3.5-5.1); Sodium Level 139 mmol/L (136-145)
[2024-03-28] MEDS: Furosemide 100 MG/10 ML Vial 80 MG IV (15:27)
[2024-03-28] MEDS: Potassium Chloride Oral Tablet 20 MEQ 40 MEQ PO (18:14)
[2024-03-28] MEDS: Furosemide 40 MG Tablet PO (18:14)
[2024-03-28] MEDS: Rivaroxaban 20 MG Tablet PO (18:15)
[2024-03-28] MEDS: Ampicillin/Sulbactam 3 GM in 0.9% Normal Saline (100mL MB+) 100 ML IV ×2 (18:15→23:49)
[2024-03-28] MEDS: Gabapentin 300 MG Capsule PO (18:19)
[2024-03-28] MEDS: oxyCODONE 5 MG Tablet PO (18:36)
[2024-03-28] MEDS: Atorvastatin Calcium 40 MG Tablet PO (20:52)
[2024-03-28] MEDS: Acetaminophen 500 MG Tablet 1000 MG PO (20:52)
[2024-03-28] MEDS: Nystatin Powder 15gm Bottle 1 APPLIC TOPICAL (20:55)
[2024-03-28] MEDS: Menthol/Lanolin/Calamine/Znox 113 GM Tube 1 APPLIC TOPICAL (20:55)
[2024-03-29 02:40] VITALS: BP 130/72; PULSE 80; RESP 16; TEMP 38; O2SAT 95
[2024-03-29] MEDS: Ampicillin/Sulbactam 3 GM in 0.9% Normal Saline (100mL MB+) 100 ML IV ×3 (05:06→18:14)
[2024-03-29] MEDS: Acetaminophen 500 MG Tablet 1000 MG PO ×3 (05:06→21:40)
[2024-03-29 07:20] LABS: Absolute Lymphocyte Count 1.01 X10^3/uL (0.83-4.51); Basophil# 0.03 X10^3/uL; Basophil% 0.3 % (0-1); Eosinophil# 0.44 X10^3/uL; Eosinophils% 4.7 % (0-5); Hematocrit 38.1 % (40-54); Hemoglobin 12.3 g/dL (13.0-16.5); Lymphocyte # 1.01 X10^3/ul (0.83-4.51); Lymphocyte % 10.8 % (19-41); Mean Corp Hgb Conc 32.3 g/dL (32-36); Mean Corpuscular Hgb 30.1 pg (27.0-32.0); Mean Corpuscular Volume 93.4 fL (80-94); Mean Platelet Vol. 9.2 fl (6.2-12.0); Monocyte# 0.79 X10^3/uL; Monocyte% 8.5 % (0-10); NRBC Flagged by Analyzer 0 % (0-5); Neutrophil # 7.02 X10^3/uL (2.7-7.7); Neutrophil % 75.3 % (47-70); Platelet Count 249 K/mm3 (150-450); RBC Distribution Width SD 51.7 fl (35.1-43.9); Red Blood Count 4.08 M/mm3 (4.6-6.2); White Blood Count 9.3 K/mm3 (4.4-11.0)
[2024-03-29 08:22] LABS: ALB/GLOB Ratio 0.7 RATIO (0.9-2.4); AST(SGOT) 14 U/L (15-37); Alanine Aminotransfer ALT/SGPT 24 U/L (16-61); Albumin, Serum 2.7 g/dL (3.2-5.0); Alkaline Phosphatase 89 U/L (45-117); Anion Gap 8 (5-15); BUN 13 mg/dL (7-18); BUN/Creat Ratio 11.8 RATIO (10-20); Calcium,Total 8.3 mg/dL (8.5-10.1); Chloride 105 mmol/L (98-107); EST Glomerular Filtration Rate 70 mL/min (>60); Est Glom Filt Rate - Afr Amer 84 mL/min (>60); Estimated Creatinine Clearance 71.63 ml/min; Globulin 3.8 g/dL (2.2-4.2); Glucose 122 mg/dL (74-106); Magnesium 1.8 mg/dL (1.6-2.6); Phosphorus 2.6 mg/dL (2.5-4.9); Protein, Total 6.5 g/dL (6.4-8.2); Sodium Level 139 mmol/L (136-145)
[2024-03-29 08:31] LABS: International Normalized Ratio 2.2
[2024-03-29 08:40] VITALS: BP 105/53; PULSE 63; RESP 17; TEMP 37.6; O2SAT 93
[2024-03-29] MEDS: Furosemide 40 MG Tablet PO ×2 (08:54→17:12)
[2024-03-29] MEDS: Losartan Potassium 100 MG Tablet PO (08:54)
[2024-03-29] MEDS: Potassium Chloride Oral Tablet 20 MEQ 40 MEQ PO ×2 (08:55→17:12)
[2024-03-29] MEDS: Cholecalciferol (Vit D3) 125 MCG CAPSULE (5,000 UNITS) PO (08:55)
[2024-03-29] MEDS: Gabapentin 300 MG Capsule PO ×3 (09:04→17:11)
[2024-03-29] MEDS: Menthol/Lanolin/Calamine/Znox 113 GM Tube 1 APPLIC TOPICAL ×2 (09:06→21:41)
[2024-03-29 09:07] VITALS: O2SAT 93
[2024-03-29 09:07] LABS: Hemoglobin A1c 5.5 % (3.8-5.6)
[2024-03-29] MEDS: Nystatin Powder 15gm Bottle 1 APPLIC TOPICAL ×2 (09:07→21:41)
[2024-03-29 15:00] VITALS: BP 135/75; PULSE 82; RESP 18; TEMP 36.9; O2SAT 95
[2024-03-29] MEDS: oxyCODONE 5 MG Tablet PO (17:11)
[2024-03-29] MEDS: Rivaroxaban 20 MG Tablet PO (17:12)
[2024-03-29 21:00] VITALS: BP 113/70; PULSE 80; RESP 18; TEMP 37.5; O2SAT 92
[2024-03-29] MEDS: Atorvastatin Calcium 40 MG Tablet PO (21:40)
[2024-03-30] MEDS: Ampicillin/Sulbactam 3 GM in 0.9% Normal Saline (100mL MB+) 100 ML IV ×5 (00:15→23:25)
[2024-03-30 03:15] VITALS: BP 123/55; PULSE 72; RESP 18; TEMP 36.6; O2SAT 94
[2024-03-30] MEDS: Acetaminophen 500 MG Tablet 1000 MG PO ×3 (06:10→22:32)
[2024-03-30] MEDS: oxyCODONE 5 MG Tablet PO (08:01)
[2024-03-30] MEDS: Gabapentin 300 MG Capsule PO ×2 (08:01→12:00)
[2024-03-30] MEDS: Potassium Chloride Oral Tablet 20 MEQ 40 MEQ PO ×2 (08:01→17:23)
[2024-03-30] MEDS: Menthol/Lanolin/Calamine/Znox 113 GM Tube 1 APPLIC TOPICAL ×2 (08:02→22:34)
[2024-03-30] MEDS: Furosemide 40 MG Tablet PO ×2 (08:02→17:24)
[2024-03-30] MEDS: Losartan Potassium 100 MG Tablet PO (08:02)
[2024-03-30] MEDS: Cholecalciferol (Vit D3) 125 MCG CAPSULE (5,000 UNITS) PO (08:02)
[2024-03-30] MEDS: Nystatin Powder 15gm Bottle 1 APPLIC TOPICAL ×2 (08:04→22:33)
[2024-03-30 09:00] VITALS: BP 123/69; PULSE 93; RESP 18; TEMP 37.4; O2SAT 95
[2024-03-30 15:00] VITALS: BP 126/84; PULSE 81; RESP 18; TEMP 37; O2SAT 93
[2024-03-30] MEDS: Rivaroxaban 20 MG Tablet PO (17:24)
[2024-03-30 21:00] VITALS: BP 140/92; PULSE 72; RESP 18; TEMP 38.1; O2SAT 94
[2024-03-30] MEDS: Gabapentin 600 MG Tablet PO (22:32)
[2024-03-30] MEDS: Atorvastatin Calcium 40 MG Tablet PO (22:33)
[2024-03-31 03:00] VITALS: BP 162/90; PULSE 73; RESP 18; TEMP 37.1; O2SAT 95
[2024-03-31] MEDS: Acetaminophen 500 MG Tablet 1000 MG PO ×3 (05:27→21:23)
[2024-03-31] MEDS: Gabapentin 300 MG Capsule PO ×2 (05:27→14:04)
[2024-03-31] MEDS: Ampicillin/Sulbactam 3 GM in 0.9% Normal Saline (100mL MB+) 100 ML IV ×2 (05:27→12:02)
[2024-03-31 05:29] VITALS: BMI 41.3
[2024-03-31 07:10] LABS: Absolute Lymphocyte Count 1.09 X10^3/uL (0.83-4.51); Absolute Neutrophil Count 4.1 X10^3/uL (2.0-7.7); Basophil# 0.02 X10^3/uL; Basophil% 0.3 % (0-1); Eosinophil# 0.41 X10^3/uL; Eosinophils% 6.4 % (0-5); Hematocrit 39.8 % (40-54); Hemoglobin 12.9 g/dL (13.0-16.5); Lymphocyte # 1.09 X10^3/ul (0.83-4.51); Mean Corp Hgb Conc 32.4 g/dL (32-36); Mean Corpuscular Hgb 29.9 pg (27.0-32.0); Mean Corpuscular Volume 92.3 fL (80-94); Mean Platelet Vol. 9.3 fl (6.2-12.0); Monocyte# 0.74 X10^3/uL; Monocyte% 11.6 % (0-10); NRBC Flagged by Analyzer 0 % (0-5); Neutrophil # 4.12 X10^3/uL (2.7-7.7); Neutrophil % 64.4 % (47-70); Platelet Count 210 K/mm3 (150-450); RBC Distribution Width CV 14.6 % (11.6-14.6); RBC Distribution Width SD 49.9 fl (35.1-43.9); Red Blood Count 4.31 M/mm3 (4.6-6.2); White Blood Count 6.4 K/mm3 (4.4-11.0)
[2024-03-31 07:26] LABS: Anion Gap 7 (5-15); BUN 11 mg/dL (7-18); BUN/Creat Ratio 11.8 RATIO (10-20); Calcium,Total 8.4 mg/dL (8.5-10.1); Chloride 107 mmol/L (98-107); Creatinine, Serum 0.93 mg/dL (0.70-1.30); EST Glomerular Filtration Rate 84 mL/min (>60); Est Glom Filt Rate - Afr Amer 102 mL/min (>60); Glucose 95 mg/dL (74-106); Potassium 3.2 mmol/L (3.5-5.1); Sodium Level 141 mmol/L (136-145)
[2024-03-31] MEDS: Potassium Chloride Oral Tablet 20 MEQ 40 MEQ PO ×3 (08:49→17:15)
[2024-03-31] MEDS: Furosemide 40 MG Tablet PO ×2 (08:49→17:15)
[2024-03-31 10:13] VITALS: BP 122/90; PULSE 66; RESP 16; TEMP 37; O2SAT 94
[2024-03-31] MEDS: Nystatin Powder 15gm Bottle 1 APPLIC TOPICAL ×2 (10:24→21:23)
[2024-03-31] MEDS: Menthol/Lanolin/Calamine/Znox 113 GM Tube 1 APPLIC TOPICAL ×2 (10:24→21:23)
[2024-03-31] MEDS: Losartan Potassium 100 MG Tablet PO (10:24)
[2024-03-31] MEDS: Cholecalciferol (Vit D3) 125 MCG CAPSULE (5,000 UNITS) PO (10:25)
[2024-03-31 13:57] VITALS: BP 157/94; PULSE 68; RESP 16; TEMP 37.7; O2SAT 95
[2024-03-31] MEDS: Rivaroxaban 20 MG Tablet PO (16:59)
[2024-03-31] MEDS: oxyCODONE 5 MG Tablet PO (17:14)
[2024-03-31 19:28] VITALS: BP 151/90; PULSE 61; RESP 18; TEMP 36.6; O2SAT 97
[2024-03-31] MEDS: Gabapentin 600 MG Tablet PO (21:23)
[2024-03-31] MEDS: Amox/Clavulanate 875 MG Tablet PO (21:23)
[2024-03-31] MEDS: Atorvastatin Calcium 40 MG Tablet PO (21:23)
[2024-04-01 01:27] VITALS: BMI 41.3
[2024-04-01 01:30] VITALS: BP 107/82; PULSE 77; RESP 18; TEMP 37.1; O2SAT 97
[2024-04-01 05:27] VITALS: BP 126/72; PULSE 74; RESP 18; TEMP 37; O2SAT 94
[2024-04-01] MEDS: Acetaminophen 500 MG Tablet 1000 MG PO ×2 (05:28→15:01)
[2024-04-01] MEDS: Gabapentin 300 MG Capsule PO ×2 (05:28→15:00)
[2024-04-01 07:01] LABS: Absolute Lymphocyte Count 1.69 X10^3/uL (0.83-4.51); Absolute Neutrophil Count 3.7 X10^3/uL (2.0-7.7); Basophil# 0.02 X10^3/uL; Basophil% 0.3 % (0-1); Eosinophil# 0.48 X10^3/uL; Eosinophils% 7.3 % (0-5); Hematocrit 40.3 % (40-54); Hemoglobin 13.3 g/dL (13.0-16.5); Lymphocyte # 1.69 X10^3/ul (0.83-4.51); Lymphocyte % 25.7 % (19-41); Mean Corpuscular Hgb 30.6 pg (27.0-32.0); Mean Corpuscular Volume 92.9 fL (80-94); Mean Platelet Vol. 9.4 fl (6.2-12.0); Monocyte# 0.69 X10^3/uL; Monocyte% 10.5 % (0-10); NRBC Flagged by Analyzer 0 % (0-5); Neutrophil # 3.67 X10^3/uL (2.7-7.7); Neutrophil % 55.7 % (47-70); Platelet Count 236 K/mm3 (150-450); RBC Distribution Width CV 14.6 % (11.6-14.6); RBC Distribution Width SD 50.4 fl (35.1-43.9); Red Blood Count 4.34 M/mm3 (4.6-6.2); White Blood Count 6.6 K/mm3 (4.4-11.0)
[2024-04-01] MEDS: Potassium Chloride Oral Tablet 20 MEQ 40 MEQ PO (07:27)
[2024-04-01] MEDS: Furosemide 40 MG Tablet PO (07:27)
[2024-04-01 08:29] LABS: Anion Gap 9 (5-15); BUN 11 mg/dL (7-18); BUN/Creat Ratio 11.6 RATIO (10-20); Calcium,Total 8.4 mg/dL (8.5-10.1); Chloride 108 mmol/L (98-107); Creatinine, Serum 0.95 mg/dL (0.70-1.30); EST Glomerular Filtration Rate 82 mL/min (>60); Est Glom Filt Rate - Afr Amer 100 mL/min (>60); Glucose 93 mg/dL (74-106); Phosphorus 3.2 mg/dL (2.5-4.9); Potassium 3.5 mmol/L (3.5-5.1); Sodium Level 141 mmol/L (136-145)
[2024-04-01] MEDS: Losartan Potassium 100 MG Tablet PO (10:44)
[2024-04-01] MEDS: Cholecalciferol (Vit D3) 125 MCG CAPSULE (5,000 UNITS) PO (10:44)
[2024-04-01] MEDS: Amox/Clavulanate 875 MG Tablet PO (10:46)
[2024-04-01] MEDS: Nystatin Powder 15gm Bottle 1 APPLIC TOPICAL (10:46)
[2024-04-01] MEDS: Menthol/Lanolin/Calamine/Znox 113 GM Tube 1 APPLIC TOPICAL (10:46)
== END 2024-04-01 16:29 | disposition home or self-care (01) | DRG 603 ==
LOC: ED 15:32 → MS3 03-29 07:01
PROVIDERS: Family Medicine; Physician Assistant; Admitting Provider Internal Medicine; Emergency Provider Emergency Medicine; PCP Nurse Practitioner Family; Visit Provider Internal Medicine
DX: L03.115 Cellulitis of right lower limb (principal); I69.351 Hemiplegia and hemiparesis following cerebral infarction affecting right dominant side; I48.20 Chronic atrial fibrillation, unspecified; Z68.41 Body mass index [BMI] 40.0-44.9, adult; R62.7 Adult failure to thrive; G62.9 Polyneuropathy, unspecified; E66.812 Obesity, class 2; I10 Essential (primary) hypertension; E78.5 Hyperlipidemia, unspecified; K21.9 Gastro-esophageal reflux disease without esophagitis; M50.30 Other cervical disc degeneration, unspecified cervical region; R26.2 Difficulty in walking, not elsewhere classified; I25.10 Atherosclerotic heart disease of native coronary artery without angina pectoris; I87.2 Venous insufficiency (chronic) (peripheral); I89.0 Lymphedema, not elsewhere classified; G47.33 Obstructive sleep apnea (adult) (pediatric); L03.116 Cellulitis of left lower limb; Z95.5 Presence of coronary angioplasty implant and graft; Z79.01 Long term (current) use of anticoagulants; Z87.891 Personal history of nicotine dependence; Z79.891 Long term (current) use of opiate analgesic; Z86.718 Personal history of other venous thrombosis and embolism
CPT/HCPCS: 36415; 80048; 80053; 82248; 83036; 83735; 83880; 84100; 84443; 85025; 85610; 93970; 97110; 97162; 97166; 97530; 97535; 99285; A4216; J0295; J1940

== ENCOUNTER 2024-05-08 17:53 | Observation (INO) | payer MEDICARE, SELFPAY ==
[2024-05-08] VITALS (8 sets, daily range): BP systolic 97–134; BP diastolic 60–91; PULSE 72–97; RESP 12–18; TEMP 36.6–37.1; O2SAT 93–98; BMI 43.0
--- NOTE | 2024-05-08 18:20 | EKG12_ITS ---
Test Reason : DYSRHYTHMIA Blood Pressure : */* mmHG Vent. Rate : 85 BPM Atrial Rate : * BPM P-R Int : * ms QRS Dur : 126 ms QT Int : 376 ms P-R-T Axes : * -47 113 degrees QTcB Int : 447 ms Atrial fibrillation Left axis deviation Left bundle branch block Abnormal ECG Confirmed by Hiram Russell ([id number]), editor producer GINGER YAN ([id number]) on 05/09/2024 9:39:04 AM Referred By: Confirmed By: Hiram Russell
--- NOTE | 2024-05-08 18:21 | EDS_ITS ---
HPI HPI - Fall History of Present Illness Chief Complaint: Fall Informant: patient Occured/Mechanism Occurred: Today Fall from Height (ft): Patient fell out of bed Pain/Injury Location: Right hip, right knee, right foot, and right arm Quality of Pain: - (Heavy) Worsened by: Movement Relieved by: Nothing Associated Symptoms Associated Symptoms: Positive for Weakness and Inability to ambulate; Negative for Parasthesias, Loss of consciousness or Amnesia Narrative Narrative: Patient presents after a fall that occurred tonight. Patient fell out of bed approximately 3 hours prior to arrival. Patient states he landed on his right side. Patient complains of right arm, right, right knee, and right foot. Patient states he was unable to ambulate after the fall. Patient states his pain feels like it is heavy. Patient states it is worse with any movement. Patient denies any paresthesias. Patient denies any nausea or vomiting. Patient does admit to some pain in his neck and back. [facility] Medical History Edema Generalized weakness Morbid obesity with BMI of 40.0-44.9, adult History of CVA (cerebrovascular accident) Lipodermatosclerosis of both lower extremities Venous insufficiency (chronic) (peripheral) Atrial fibrillation Bilateral leg edema History of stroke History of CAD (coronary artery disease) History of atrial fibrillation Neuropathic pain Obesity Essential (primary) hypertension Hemiplegia of right dominant side as late effect of cerebral infarction Right rotator cuff tear Right hemiplegia Congestive heart failure (CHF) Ambulatory dysfunction Tinea cruris Chronic venous stasis dermatitis Lymphedema Chronic anticoagulation Bilateral cellulitis of lower leg Candidiasis of skin Adult failure to thrive Hemiplegia affecting right dominant side Anticoagulant long-term use Pneumonia Cellulitis Atrial fibrillation CVA (cerebral vascular accident) Rotator cuff tear arthropathy of right shoulder CPAP (continuous positive airway pressure) dependence Sleep apnea FTT (failure to thrive) in adult Lymphedema of both lower extremities Chronic venous stasis dermatitis of both lower extremities Low back pain Hypertension Atrial fibrillation Debility Pain of left great toe Pain in right lower leg Hyperglycemia Leg pain Toe ulcer Lymphedema Non-pressure chronic ulcer of other part of right foot with necrosis of muscle Cellulitis of right lower limb Deep venous thrombosis 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 layer exposed Venous insufficiency Skin ulcer of left great toe with fat layer exposed Dyspnea on minimal exertion Anomalous origin of coronary artery Obesity New onset atrial fibrillation (03/24/20) Essential (primary) hypertension Pain of left lower extremity due to injury Former smoker Traumatic hematoma of left lower leg Arthritis Benign neoplasm of middle ear, nasal cavity and accessory sinuses ANDREE (obstructive sleep apnea) Cervical disc disease BPH (benign prostatic hyperplasia) GERD (gastroesophageal reflux disease) Hyperlipidemia Atherosclerotic heart disease of [place] coronary artery without angina pectoris Cardiac murmur, unspecified Home Medications ?Medication ?Instructions ?Recorded ?Last Taken ?Type rivaroxaban 20 mg tablet (Xarelto) 20 mg PO DINNER BLOOD THINNER #0 12/28/21 01/25/24 Rx tabs gabapentin 300 mg capsule 300 mg PO TID neuropathy 09/02/23 01/25/24 History atorvastatin 40 mg tablet 40 mg PO QHS choplesterol #0 tabs 09/07/23 01/25/24 14:00 Rx 40 mg menthol 0.44 %-zinc oxide 20.6 % 1 applic topical BID #0 grams 10/25/23 01/25/24 Rx topical ointment (Calmoseptine) nystatin 100,000 unit/gram topical 1 applic topical BID #0 grams 10/25/23 01/25/24 Rx powder (Nyamyc) acetaminophen 500 mg tablet 1,000 mg PO Q8 PRN pain 12/27/23 01/25/24 17:00 History 1,000 mg cholecalciferol (vitamin D3) 125 125 mcg PO DAILY #0 caps 02/01/24 Unknown Rx mcg (5,000 unit) capsule losartan 100 mg tablet 100 mg PO DAILY blood pressure 30 02/01/24 01/25/24 Rx days #0 tabs potassium chloride 20 mEq 40 meq (2 x 20 mEq) PO BIDCM 02/01/24 01/25/24 Rx tablet,extended potassium #0 tabs release(part/cryst) (Klor-Con M) furosemide 40 mg tablet 40 mg PO BID 05/08/24 Unknown History gabapentin 400 mg capsule 400 mg PO TID 05/08/24 Unknown History ketoconazole 2 % topical cream 1 applic topical DAILY 05/08/24 Unknown History tramadol 50 mg tablet 50 mg PO BID PRN PRN pain 05/08/24 Unknown History Allergy/AdvReac Type Severity Reaction Status Date / Time diphenhydramine (From AdvReac Mild Abd Verified 03/28/24 10:52 Benadryl) cramps/diarrhea ibuprofen (From Motrin) AdvReac Nausea Verified 03/28/24 10:52 Family History Mother CAD (coronary artery disease) Hypertension History of cardiac radiofrequency ablation Sister Hypertension Other Arthritis Surgical History History of coronary artery stent placement H/O cervical spine surgery History of herniorrhaphy History of carpal tunnel release History of transurethral resection of prostate History of coronary artery stent placement (11/29/10) History of bursectomy History of removal of cyst History of carpal tunnel surgery History of fusion of cervical spine Social History household members: other details: Older son Naeem. Smoking Status: Former smoker alcohol intake: never substance use type: does not use ROS ROS ED Constitutional Constitutional ED: Denies chills or fever(s) Eyes Eyes: Denies blurry vision or change in vision ENT ENT ED: Denies rhinorrhea or sore throat Cardiovascular Cardiovascular: Denies chest pain or palpitations Respiratory/Chest Respiratory/Chest: Denies cough or dyspnea Gastrointestinal Gastrointestinal: Denies nausea or vomiting Genitourinary Genitourinary ED: Denies dysuria or hematuria Musculoskeletal Musculoskeletal: Reports back pain and neck pain Integumentary Reports rash; Denies abscess Neurologic Neurologic: Denies headache(s) or weakness Allergic/Immunologic Allergic/Immunologic ED: Denies mouth swelling or urticaria EXAM Physical Exam Const Vital Signs: 05/08/24 17:55 05/08/24 18:00 05/08/24 19:05 Temperature 98.7 F 98.7 F 98.1 F Temperature Source Oral Oral Temporal Pulse Rate 72 72 87 Respiratory Rate 16 16 16 Blood Pressure 115/91 H 115/91 H 134/60 H Blood Pressure Mean 99 99 84 Pulse Ox 98 98 98 Oxygen Delivery Method Room Air Room Air Room Air 05/08/24 20:00 05/08/24 20:32 05/08/24 21:00 Temperature 98 F 98 F Temperature Source Oral Oral Pulse Rate 92 76 Respiratory Rate 18 12 Blood Pressure 97/62 122/73 H 124/76 H Blood Pressure Mean 73 89 92 Pulse Ox 98 96 Oxygen Delivery Method Room Air Room Air 05/08/24 22:00 05/08/24 22:00 05/08/24 23:00 Temperature 98 F 98 F Temperature Source Oral Pulse Rate 97 87 88 Respiratory Rate 16 16 18 Blood Pressure 134/80 H 126/80 H 106/65 Blood Pressure Mean 98 95 78 Pulse Ox 96 98 93 Oxygen Delivery Method Room Air Positive well nourished and well developed Constitutional Narrative: Patient has a BMI of 43.1. General Appearance ED: well developed and NAD HEENT Reports normocephalic atraumatic Neck full ROM and supple Resp normal respiratory effort and clear to auscultation bilaterally Cardio regular rate Rhythm: abnormal rhythm irregularly irregular GI non-tender and non-distended Palpation: soft Extremity Extremity Narrative: There is minimal tenderness over the right upper arm. There is good range of motion of the right upper extremity. There is tenderness over the right hip and right knee. There is also tenderness over the right ankle and foot. There are no obvious deformities noted. There is a superficial abrasion over the anter omedial aspect of the right knee. Range of motion was limited in all motions of the right lower extremity secondary to pain. Sensation was intact to light touch in all digits. Capillary refills less than 2 seconds in all digits. There is also a chronic wound over the anterolateral aspect of the right lower leg. There is a dressing in place. There is no warmth noted. Neuro oriented x3, CN's II-XII intact bilaterally, moves all extremities, no focal motor deficits and no sensory deficits noted Karthik Coma Scale: document GCS findings Spontaneous Obeys Commands Oriented 15 Sensorium / Orientation: alert Motor Exam: strength 5/5 throughout Psych mental status grossly normal and thought process normal MDM MDM MDM Narrative Medical decision making narrative: Differential diagnosis includes hip fracture, right knee effusion, patella fracture, ankle fracture, general weakness, debility, cardiac dysrhythmia, cardiac ischemia, electrolyte abnormality, pneumonia, and dehydration. EKG will be obtained to assess for cardiac dysrhythmia and cardiac ischemia. Chest x-ray will be obtained to assess for pneumonia and pneumothorax. CBC will be obtained to assess for leukocytosis and anemia. Basic metabolic profile will be obtained to assess for electrolyte abnormality and renal function. High-sensitivity troponin will be obtained to assess for cardiac ischemia. Urinalysis will be obtained to assess for urinary tract infection and hematuria. X-rays of the right ankle will be obtained to assess for fracture. X-rays of the right knee will be obtained to assess for fracture and joint effusion. X-rays of the right hip will be obtained to assess for fracture of the femoral neck and pelvis. CT scan of the brain will be obtained to assess for intracranial bleeding and stroke. COVID-19, influenza, and RSV PCR will be obtained to assess for viral illness. Lab Data Attestation: I reviewed the patient's lab results. Lab results narrative: CBC was reviewed and was within normal limits. Basic metabolic profile was reviewed and was within normal limits. High-sensitivity troponin was reviewed and was normal at 10. Urinalysis was reviewed. There is no evidence of urinary tract infection or hematuria. 2-hour repeat high-sensitivity troponin was reviewed and was normal at 13. COVID-19 PCR was reviewed and was negative. Influenza PCR was reviewed and was negative for influenza A and influenza B. RSV PCR was reviewed and was negative. Labs: Laboratory Results - last 24 hr 05/08/24 05/08/24 05/08/24 18:29 18:50 20:30 WBC 9.1 RBC 4.45 L Hgb 13.4 Hct 40.8 MCV 91.7 MCH 30.1 MCHC 32.8 RDW Std Deviation 48.6 H RDW Coeff of Naz 14.5 Plt Count 328 MPV 9.4 Immature Gran % (Auto) 0.300 Neut % (Auto) 70.7 H Lymph % (Auto) 14.4 L [place] % (Auto) 8.9 Eos % (Auto) 5.5 H Baso % (Auto) 0.2 Absolute Neuts (auto) 6.4 Absolute Lymphs (auto) 1.31 Nucleated RBC % 0 Sodium 136 Potassium 4.4 Chloride 108 H Carbon Dioxide 23.0 Anion Gap 5 BUN 16 Creatinine 1.29 Estim Creat Clear Calc 61.62 Est GFR (MDRD) Af Amer 70 Est GFR (MDRD) Non-Af 58 L BUN/Creatinine Ratio 12.4 Glucose 96 Calcium 9.0 Troponin I High Sens 10 13 Urine Color Yellow Urine Clarity Clear Urine pH 5.0 Ur Specific [place] 1.020 Urine Protein Negative Urine Glucose (UA) Normal Urine Ketones Negative Urine Occult Blood Negative Urine Nitrite Negative Urine Bilirubin Negative Urine Urobilinogen Normal Ur Leukocyte Esterase Negative Urine RBC 0 SEEN Urine WBC 0-5 SEEN Ur Squamous Epith Cells 0-5 SEEN Urine Bacteria 0 SEEN Urine Mucus 0 SEEN Radiography Chest X-Ray - ED: 1 View, Read by ED Physician, Read by Radiologist and No Acute Disease Diagnostic Testing: Clinical Impression(s) from Imaging Studies Ankle X-Ray 05/08/24 18:55 IMPRESSION: Osteopenia with degenerative arthrosis and calcaneal spurs. No demonstrated fracture or suspicious osseous lesion. There is however diffuse nonspecific soft tissue swelling and a subtle occult fracture could be present Electronically Signed: Walt Faust MD at 20:26 EST , Chest X-Ray 05/08/24 18:55 IMPRESSION: No acute pulmonary process Electronically Signed: Walt Fasut MD at 20:25 EST , Hip/Pelvis X-Ray 05/08/24 18:55 IMPRESSION: Age consistent degenerative changes, no acute findings Electronically Signed: Walt Faust MD at 20:28 EST , Knee X-Ray 05/08/24 18:55 IMPRESSION: Degenerative changes, no acute findings Electronically Signed: Walt Faust MD at 20:29 EST , Brain CT 05/08/24 21:55 IMPRESSION: Chronic involutional changes of the brain no acute hemorrhage. No significant interval change Electronically Signed: Walt Faust MD at 22:33 EST , Portable 1 view chest x-ray was obtained. On my independent interpretation, lung lui are clear. There is normal cardiac silhouette. Bony thorax is normal. There is no acute process noted. Radiologist also interpreted the x- ray and agrees. X-rays of the right knee were obtained. There are 3 views. On my independent interpretation, there is no acute fracture. There are some degenerative changes noted. Radiologist also interpreted the x-rays and agrees. X-rays of the right hip were obtained. There are 3 views. On my independent interpretation, there is no acute fracture. There are some degenerative changes. Radiologist also interpreted the x-rays and agrees. X-rays of the right ankle were obtained. There are 3 views. On my independent interpretation, there is some osteopenia noted. There are some degenerative changes. There is no acute fracture. There is some soft tissue swelling noted. Radiologist also interpreted the x-rays and agrees. CT scan of the brain was obtained. There is no acute intracranial abnormality. There are chronic involutional changes. This was interpreted by the radiologist and was also independently reviewed by myself. EKG Initial EKG: Attestation: I personally reviewed and interpreted this EKG as follows: Interpretation: Atrial Fibrillation Comments: EKG was obtained. On my independent interpretation, it shows atrial fibrillation with a rate of 85. QRS interval slightly prolonged at 126 ms. QTc interval was normal at 447 ms. There is left axis deviation at -47. There are no acute ST or T wave changes noted. Prior EKG tracings: available for review Prior: Unchanged (01/26/2024) Treatment and Re-Evaluation Narrative: Patient was given morphine. Patient was feeling better on reevaluation. Patient and son were advised of the findings. Son is concerned that the last time he has been falling frequently, he had a stroke. Son states that he fell multiple times in the last few days. Because of this, I will discuss case with the hospitalist for possible admission. Case was discussed with the hospitalist. He states that the only way he can admit the patient is if he is willing to go to a jail facility upon discharge for further therapy. Patient is agreeable with this. Patient will be admitted for observation. Patient and family understand and are agreeable with the plan. All questions were answered. Discharge Plan Dx/Rx/DC Orders Clinical Impression: Generalized weakness, History of CVA (cerebrovascular accident), Morbid obesity with BMI of 40.0-44.9, adult, Atrial fibrillation Disposition Disposition: Acute Care Hospital [facility]
[2024-05-08 18:49] LABS: Absolute Lymphocyte Count 1.31 X10^3/uL (0.83-4.51); Absolute Neutrophil Count 6.4 X10^3/uL (2.0-7.7); Basophil# 0.02 X10^3/uL; Basophil% 0.2 % (0-1); Eosinophils% 5.5 % (0-5); Hematocrit 40.8 % (40-54); Hemoglobin 13.4 g/dL (13.0-16.5); Lymphocyte # 1.31 X10^3/ul (0.83-4.51); Lymphocyte % 14.4 % (19-41); Mean Corp Hgb Conc 32.8 g/dL (32-36); Mean Corpuscular Hgb 30.1 pg (27.0-32.0); Mean Corpuscular Volume 91.7 fL (80-94); Mean Platelet Vol. 9.4 fl (6.2-12.0); Monocyte# 0.81 X10^3/uL; Monocyte% 8.9 % (0-10); NRBC Flagged by Analyzer 0 % (0-5); Neutrophil % 70.7 % (47-70); Platelet Count 328 K/mm3 (150-450); RBC Distribution Width CV 14.5 % (11.6-14.6); RBC Distribution Width SD 48.6 fl (35.1-43.9); Red Blood Count 4.45 M/mm3 (4.6-6.2); White Blood Count 9.1 K/mm3 (4.4-11.0)
--- NOTE | 2024-05-08 18:53 | ED.RN ---
THIS RN AT BEDSIDE TALKING WITH PATIENT AND SON ABOUT MORE NEEDED AT HOME. PTS SON STATES HE WORKS A MINIMUM OF 10 HOURS A DAY. RN STATES YOUR SON CAN'T KEEP TAKING CARE OF YOU, LIFTING YOU OFF THE GROUND, MOVING YOU FROM THE BED TO A WHEELCHAIR AND CLEANING YOU UP REALLY ISN'T A GOOD OPTION. PT STATES IF I GO TO A PENITENTIARY, THEY WILL TAKE ALL MY THINGS. RN STATES BUT YOU CAN'T BE LIVING LIKE THIS. PEOPLE PULLING YOU OFF THE GROUND, AND CLEANING YOU UP. YOU HAVE FALLEN OUT OF BED 5 TIMES THIS WEEK AND YOU DIDN'T REMEMBER THIS. PT STATES I WOULD RATHER YOU TAKE ME OUT BACK AND END MY LIFE. I WILL NOT GO TO A PLACE WHERE I SIT IN ONE ROOM ALL DAY. MARY LOU AND ELVIE NOTIFIED OF CONVERSATION
--- NOTE | 2024-05-08 18:55 | RAD_ITS ---
STUDY: X-RAY - RIGHT ANKLE REASON FOR EXAM: Male, 73 years old. Injury/Pain TECHNIQUE: 3 view(s) of the ankle. COMPARISON: None. FINDINGS: The bones are diffusely demineralized Normal visualized distal tibia and fibula. Normal medial and lateral malleoli. Normal tibiotalar articulation, the ankle mortise is narrowed Normal visualized talus. Calcaneal spurs The visualized subtalar, talonavicular, calcaneocuboid and tarsal articulations are normal. There is diffuse soft tissue swelling.. RAD/Ankle min 3 Views IMPRESSION: Osteopenia with degenerative arthrosis and calcaneal spurs. No demonstrated fracture or suspicious osseous lesion. There is however diffuse nonspecific soft tissue swelling and a subtle occult fracture could be present Electronically Signed: Walt Faust MD at 20:26 EST ,
--- NOTE | 2024-05-08 18:55 | RAD_ITS ---
STUDY: X-RAY - RIGHT KNEE REASON FOR EXAM: Male, 73 years old. Injury/Pain TECHNIQUE: 3 view(s) of the knee. COMPARISON: None. FINDINGS: Bones are diffusely demineralized. Normal visualized distal femur. Normal visualized proximal tibia and fibula. Normal proximal tibiofibular articulation. There is moderate degenerative arthrosis of the medial femorotibial compartment with moderate joint space narrowing. There is mild degenerative arthrosis of the lateral femorotibial compartment. There is moderate degenerative arthrosis of the patellofemoral articulation. The soft tissue structures are unremarkable. RAD/Knee 3 Views IMPRESSION: Degenerative changes, no acute findings Electronically Signed: Walt Faust MD at 20:29 EST ,
--- NOTE | 2024-05-08 18:55 | RAD_ITS ---
STUDY: X-RAY CHEST REASON FOR EXAM: Male, 73 years old. Weakness TECHNIQUE: 2 AP portable views COMPARISON: None. FINDINGS: Lungs are expanded. No superimposed infiltrate or effusion, scattered granulomatous calcifications. There is no demonstrated pleural abnormality. Normal size heart. Normal mediastinum and kalee. Normal visualized pulmonary arteries. Normal visualized aortic arch and descending thoracic aorta. Normal visualized thoracic spine. Normal visualized ribs, clavicles, and shoulders. There is no demonstrated abnormality of the visualized soft tissue structures of the upper abdomen. RAD/Chest 1 View IMPRESSION: No acute pulmonary process Electronically Signed: Walt Faust MD at 20:25 EST ,
--- NOTE | 2024-05-08 18:55 | RAD_ITS ---
STUDY: X-RAY - PELVIS AND RIGHT HIP REASON FOR EXAM: Male, 73 years old. Pain, decreased range of motion TECHNIQUE: 3 views of the pelvis and hip. COMPARISON: None. FINDINGS: There is a non-specific bowel gas pattern. Normal visualized soft tissue structures. There is narrowing with cortical sclerosis and osteophyte formation of the sacroiliac joint consistent with degenerative osteoarthritic changes. Normal bilateral superior and inferior pubic rami. Normal pubic symphysis. Normal bilateral ischial tuberosities. Normal visualized femoral head. Normal acetabulum. There is moderate articular joint space narrowing of the hip. Similar arthritic changes noted in the left hip. RAD/HIP, UNI W/ Pelvis 2-3 Views IMPRESSION: Age consistent degenerative changes, no acute findings Electronically Signed: Walt Faust MD at 20:28 EST ,
[2024-05-08] MEDS: Morphine 4 MG/ML Syringe IV ×2 (18:56→20:33)
[2024-05-08 18:58] LABS: Bacteria 0 SEEN /hpf (None Seen); Color, Urine Yellow (Yellow); Glucose, Dipstick Normal (Normal); Ketone-Dipstick Negative (Negative); Leukocyte Esterase-Dipstick Negative /ul (Negative); Mucous, Urine 0 SEEN /hpf (<or=2+); Nitrite-Dipstick Negative (Negative); Occult Blood-Urine Negative /ul (Negative); Protein-Dipstick Negative (Negative); Red Blood Cells-Urine 0 SEEN /hpf (0-5); Urine Bilirubin Dipstick Negative (Negative); Urine Clarity Clear (Clear); Urine Urobilinogen Normal (Normal)
[2024-05-08 19:06] LABS: Squamous Epithelial Cells - UA 0-5 SEEN /hpf (0-5); White Blood Cells 0-5 SEEN /hpf (0-5)
[2024-05-08 19:12] LABS: Anion Gap 5 (5-15); BUN 16 mg/dL (7-18); BUN/Creat Ratio 12.4 RATIO (10-20); Chloride 108 mmol/L (98-107); Creatinine, Serum 1.29 mg/dL (0.70-1.30); EST Glomerular Filtration Rate 58 mL/min (>60); Est Glom Filt Rate - Afr Amer 70 mL/min (>60); Estimated Creatinine Clearance 61.62 ml/min; Glucose 96 mg/dL (74-106); Potassium 4.4 mmol/L (3.5-5.1); Sodium Level 136 mmol/L (136-145); Troponin-I HS (w/2H Reflex) 10 pg/mL (3.0-78.0)
--- NOTE | 2024-05-08 20:22 | ED.RN ---
RADIOLOGY CALLED FOR PROLONGED IMAGING RESULTS. RESPONSE I WILL CHECK ON IT
[2024-05-08 20:40] LABS: Reflex Troponin-HS? (from REC) Y
[2024-05-08 21:05] LABS: Troponin-I HS 13 pg/mL (3.0-78.0)
--- NOTE | 2024-05-08 21:55 | CT_ITS ---
STUDY: CT BRAIN WITHOUT CONTRAST REASON FOR EXAM: Male, 73 years old. Weakness RADIATION DOSAGE (If Supplied By Facility): CTDIvol = ( 44.99 ) mGy, DLP = ( 829.85 ) mGycm TECHNIQUE: Transaxial CT imaging of the brain was performed without administration of intravenous contrast material. Individualized dose optimization techniques were used for this CT. COMPARISON: 01/25/2024 FINDINGS: Normal soft tissue structures. Normal calvarium. Normal size ventricles and extra-axial spaces for the patient''s age. Normal white matter tracts of the cerebral hemispheres. Normal basal ganglia and thalami. Normal brainstem. Normal cerebellum. There is no intracranial hemorrhage. There are no findings of an acute ischemic infarction. Normal visualized paranasal sinuses. CT/Brain/Head without Contrast IMPRESSION: Chronic involutional changes of the brain no acute hemorrhage. No significant interval change Electronically Signed: Walt Faust MD at 22:33 EST ,
--- NOTE | 2024-05-08 23:20 | PCM.HP.STD ---
[facility] - General General Date of Admission: 05/08/24 Date of Service: 05/08/24 Chief Complaint: Fall with generalized weakness HPI Narrative TURNER YAN, is a 73 M who presented to [facility] ED on 05/08/2024 after a fall out of bed at home. Patient is well-known to us, has been hospitalized multiple times over the past year. He lives with his son and is chronically debilitated. He is able to transfer to the bathroom with assistance of Zach chaparro and his son. Overnight patient woke up and was somewhat confused and he slid out of bed and fell onto his right side. His son found him on the floor shortly after the fall. Patient reported right arm, right knee and right ankle/foot pain, so son brought him to the ED for further evaluation. On arrival to the ED he was hemodynamically stable on room air. CBC and BMP were unremarkable. Chest x-ray was unremarkable. Hip/pelvis and knee x-rays were unremarkable. Right ankle x-ray showed soft tissue swelling with concern for an occult fracture. However CT right ankle showed only soft tissue swelling with no fracture. Given his worsened debility with fall, hospitalist was contacted for admission. I saw the patient at bedside in the ED, son was present. On chart review, it appeared that patient had denied SNF placement during previous admission despite recommendation that he needed SNF versus long-term care. On discussion with patient and son, patient is amenable to SNF placement but does not want long-term placement. Patient was laying back comfortably in bed and in no acute distress. He was answering questions appropriately for me. He did report moderate pain in both of his legs from the knees down to the feet and in his bilateral hands. Has known history of neuropathy and son reports patient has had more pain in these areas over the last several days. He has been taking his gabapentin as prescribed. Was recently given a short course of tramadol to use and this has been mild to moderately helpful for him. Patient has been taking his Lasix and losartan as prescribed with good urine output. Does state that he feels somewhat dry and dehydrated. Denies any fevers or chills. No other acute concerns at this time. [facility] Medical History Edema Generalized weakness Morbid obesity with BMI of 40.0-44.9, adult History of CVA (cerebrovascular accident) Lipodermatosclerosis of both lower extremities Venous insufficiency (chronic) (peripheral) Atrial fibrillation Bilateral leg edema History of stroke History of CAD (coronary artery disease) History of atrial fibrillation Neuropathic pain Obesity Essential (primary) hypertension Hemiplegia of right dominant side as late effect of cerebral infarction Right rotator cuff tear Right hemiplegia Congestive heart failure (CHF) Ambulatory dysfunction Tinea cruris Chronic venous stasis dermatitis Lymphedema Chronic anticoagulation Bilateral cellulitis of lower leg Candidiasis of skin Adult failure to thrive Hemiplegia affecting right dominant side Anticoagulant long-term use Pneumonia Cellulitis Atrial fibrillation CVA (cerebral vascular accident) Rotator cuff tear arthropathy of right shoulder CPAP (continuous positive airway pressure) dependence Sleep apnea FTT (failure to thrive) in adult Lymphedema of both lower extremities Chronic venous stasis dermatitis of both lower extremities Low back pain Hypertension Atrial fibrillation Debility Pain of left great toe Pain in right lower leg Hyperglycemia Leg pain Toe ulcer Lymphedema Non-pressure chronic ulcer of other part of right foot with necrosis of muscle Cellulitis of right lower limb Deep venous thrombosis 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 layer exposed Venous insufficiency Skin ulcer of left great toe with fat layer exposed Dyspnea on minimal exertion Anomalous origin of coronary artery Obesity New onset atrial fibrillation (03/24/20) Essential (primary) hypertension Pain of left lower extremity due to injury Former smoker Traumatic hematoma of left lower leg Arthritis Benign neoplasm of middle ear, nasal cavity and accessory sinuses ANDREE (obstructive sleep apnea) Cervical disc disease BPH (benign prostatic hyperplasia) GERD (gastroesophageal reflux disease) Hyperlipidemia Atherosclerotic heart disease of [place] coronary artery without angina pectoris Cardiac murmur, unspecified Home Medications ?Medication ?Instructions ?Recorded ?Last Taken ?Type rivaroxaban 20 mg tablet (Xarelto) 20 mg PO DINNER BLOOD THINNER #0 12/28/21 01/25/24 Rx tabs atorvastatin 40 mg tablet 40 mg PO QHS choplesterol #0 tabs 09/07/23 01/25/24 14:00 Rx 40 mg menthol 0.44 %-zinc oxide 20.6 % 1 applic topical BID #0 grams 10/25/23 01/25/24 Rx topical ointment (Calmoseptine) nystatin 100,000 unit/gram topical 1 applic topical BID #0 grams 10/25/23 01/25/24 Rx powder (Nyamyc) acetaminophen 500 mg tablet 1,000 mg PO Q8 PRN pain 12/27/23 01/25/24 17:00 History 1,000 mg cholecalciferol (vitamin D3) 125 125 mcg PO DAILY #0 caps 02/01/24 Unknown Rx mcg (5,000 unit) capsule losartan 100 mg tablet 100 mg PO DAILY blood pressure 30 02/01/24 01/25/24 Rx days #0 tabs potassium chloride 20 mEq 40 meq (2 x 20 mEq) PO BIDCM 02/01/24 01/25/24 Rx tablet,extended potassium #0 tabs release(part/cryst) (Klor-Con M) Lactobacillus rhamnosus GG 10 1 cap PO BID 05/08/24 Unknown History billion cell capsule (Culturelle) furosemide 40 mg tablet 40 mg PO BID 05/08/24 Unknown History gabapentin 400 mg capsule 400 mg PO TID 05/08/24 Unknown History ketoconazole 2 % topical cream 1 applic topical DAILY 05/08/24 Unknown History oxycodone 5 mg capsule 5 mg PO Q4H PRN pain 05/08/24 Unknown History penicillin V potassium 250 mg 250 mg PO BID 05/08/24 Unknown History tablet tramadol 50 mg tablet 50 mg PO BID PRN PRN pain 05/08/24 Unknown History Allergy/AdvReac Type Severity Reaction Status Date / Time diphenhydramine (From AdvReac Mild Abd Verified 03/28/24 10:52 Benadryl) cramps/diarrhea ibuprofen (From Motrin) AdvReac Nausea Verified 03/28/24 10:52 Family History Mother CAD (coronary artery disease) Hypertension History of cardiac radiofrequency ablation Sister Hypertension Other Arthritis Surgical History History of coronary artery stent placement H/O cervical spine surgery History of herniorrhaphy History of carpal tunnel release History of transurethral resection of prostate History of coronary artery stent placement (11/29/10) History of bursectomy History of removal of cyst History of carpal tunnel surgery History of fusion of cervical spine Social History household members: other details: Older son Naeem. Smoking Status: Former smoker alcohol intake: never substance use type: does not use ROS Constitutional Constitutional: Reports fatigue and weakness; Denies chills or fever(s) Eyes Eyes: Denies change in vision Cardiovascular Cardiovascular: Denies chest pain Respiratory/Chest Respiratory/Chest: Denies shortness of breath at rest Gastrointestinal Gastrointestinal: Denies abdominal pain Genitourinary Genitourinary: Denies dysuria Musculoskeletal Musculoskeletal: Denies arthralgias or myalgias Neurologic Neurologic: Denies dizziness, headache(s), numbness or paresthesias Vital Signs Vital Signs Vital Signs: 05/08/24 17:55 05/08/24 18:00 05/08/24 19:05 Temperature 98.7 F 98.7 F 98.1 F Temperature Source Oral Oral Temporal Pulse Rate 72 72 87 Respiratory Rate 16 16 16 Blood Pressure 115/91 H 115/91 H 134/60 H Blood Pressure Mean 99 99 84 Pulse Ox 98 98 98 Oxygen Delivery Method Room Air Room Air Room Air 05/08/24 20:00 05/08/24 20:32 05/08/24 21:00 Temperature 98 F 98 F Temperature Source Oral Oral Pulse Rate 92 76 Respiratory Rate 18 12 Blood Pressure 97/62 122/73 H 124/76 H Blood Pressure Mean 73 89 92 Pulse Ox 98 96 Oxygen Delivery Method Room Air Room Air 05/08/24 22:00 05/08/24 22:00 05/08/24 23:00 Temperature 98 F 98 F Temperature Source Oral Pulse Rate 97 87 88 Respiratory Rate 16 16 18 Blood Pressure 134/80 H 126/80 H 106/65 Blood Pressure Mean 98 95 78 Pulse Ox 96 98 93 Oxygen Delivery Method Room Air Weight Weight: 121.1 kg Body Mass Index (BMI) 43.0 Physical Exam Const alert, oriented x3 and no apparent distress Constitutional Narrative: Elderly male, class III obesity, fatigued and chronically ill-appearing, otherwise laying back comfortably in bed, answering questions appropriately and in no acute distress. General Appearance: cooperative and comfortable HEENT normocephalic, head/scalp atraumatic, hearing grossly normal bilaterally and nasal mucous membranes and turbinates normal HEENT Narrative: Dry mucous membranes. Eyes PERRL, EOMs intact bilaterally and conjunctivae normal Neck full ROM Chest inspection of chest normal Resp normal respiratory effort, normal air movement, no use of accessory muscles and clear to auscultation bilaterally Cardio regular rate, regular rhythm, no murmurs and peripheral pulses 2+ throughout GI normal to inspection, nondistended, normoactive bowel sounds, soft to palpation, non-tender and non-distended Back/Spine normal ROM Extremity Extremity Narrative: Chronic venous stasis changes in bilateral lower extremities with chronic wounds noted. No signs of acute infection. Neuro Neuro Narrative: Generally weak but does move all extremities without issue. Speech: Negative for speech normal Psych mental status grossly normal Results Lab / Micro Data 05/08/24 18:29 05/08/24 18:29 Labs: Laboratory Results - last 24 hr 05/08/24 18:29: WBC 9.1, RBC 4.45 L, Hgb 13.4, Hct 40.8, MCV 91.7, MCH 30.1, MCHC 32.8, RDW Std Deviation 48.6 H, RDW Coeff of Naz 14.5, Plt Count 328, MPV 9.4, Immature Gran % (Auto) 0.300, Neut % (Auto) 70.7 H, Lymph % (Auto) 14.4 L, [place] % (Auto) 8.9, Eos % (Auto) 5.5 H, Baso % (Auto) 0.2, Absolute Neuts (auto) 6.4, Absolute Lymphs (auto) 1.31, Nucleated RBC % 0, Sodium 136, Potassium 4.4, Chloride 108 H, Carbon Dioxide 23.0, Anion Gap 5, BUN 16, Creatinine 1.29, Estim Creat Clear Calc 61.62, Est GFR (MDRD) Af Amer 70, Est GFR (MDRD) Non-Af 58 L, BUN/Creatinine Ratio 12.4, Glucose 96, Calcium 9.0, Troponin I High Sens 10 05/08/24 18:50: Urine Color Yellow, Urine Clarity Clear, Urine pH 5.0, Ur Specific [place] 1.020, Urine Protein Negative, Urine Glucose (UA) Normal, Urine Ketones Negative, Urine Occult Blood Negative, Urine Nitrite Negative, Urine Bilirubin Negative, Urine Urobilinogen Normal, Ur Leukocyte Esterase Negative, Urine RBC 0 SEEN, Urine WBC 0-5 SEEN, Ur Squamous Epith Cells 0-5 SEEN, Urine Bacteria 0 SEEN, Urine Mucus 0 SEEN 05/08/24 20:30: Troponin I High Sens 13 Micro: Microbiology 05/08/24 21:59 Mucosa - Nose SARS-CoV-2, Influenza & RSV (PCR) - Final Imaging Radiology Impression Ankle X-Ray 05/08/24 18:55 IMPRESSION: Osteopenia with degenerative arthrosis and calcaneal spurs. No demonstrated fracture or suspicious osseous lesion. There is however diffuse nonspecific soft tissue swelling and a subtle occult fracture could be present Electronically Signed: Walt Faust MD at 20:26 EST , Chest X-Ray 05/08/24 18:55 IMPRESSION: No acute pulmonary process Electronically Signed: Walt Faust MD at 20:25 EST , Hip/Pelvis X-Ray 05/08/24 18:55 IMPRESSION: Age consistent degenerative changes, no acute findings Electronically Signed: Walt Faust MD at 20:28 EST , Knee X-Ray 05/08/24 18:55 IMPRESSION: Degenerative changes, no acute findings Electronically Signed: Walt Faust MD at 20:29 EST , Brain CT 05/08/24 21:55 IMPRESSION: Chronic involutional changes of the brain no acute hemorrhage. No significant interval change Electronically Signed: Walt Faust MD at 22:33 EST , Assessment & Plan Assessment/Plan (1) Generalized weakness: (2) Adult failure to thrive: (3) Unable to ambulate: PLAN: Plan Patient is a 73-year-old male who [facility] after a fall at home. 1. Mild acute on chronic debility with falls and adult failure to thrive ? Admit under observation dose to [facility]. PT/OT/case management consulted. Patient with significant chronic debility, is unable to ambulate at baseline. Has had very poor therapy scores on past admissions and recommendation has been for long-term placement. Patient is agreeable to SNF placement if needed but not long-term care. Mild acute worsening of debility may be secondary to mild dehydration as noted below. 2. Mild creatinine elevation with dehydration ? Creatinine 1.29 on admit, baseline 0.9-1.0. Patient is on Lasix 40 mg twice daily and losartan at home. Last echo in 2022 showed normal EF with no diastolic dysfunction. Patient is on Lasix for chronic lower extremity edema but it has been determined that this is most consistent with lymphedema. Suspect patient is being overdiuresed at home. Will give 1 L of IV fluids on admit and hold Lasix and losartan for now. Follow-up a.m. BMP and monitor urine output. 3. Chronic lower extremity lymphedema with wounds ? Wound care consulted. Has had multiple rounds of antibiotics for concern for cellulitis but ID noted during a previous admission that it seems most consistent with chronic lymphedema. Chronic medical conditions: ? Class III obesity: BMI 41 on admit. Complicates hospital course, care and prognosis. ? History of nonobstructive CAD, hypertension, hyperlipidemia, history of CVA, paroxysmal A-fib: In normal sinus rhythm on admit. Continue home Xarelto and statin. Holding home Lasix and losartan as noted above. ? Chronic pain with neuropathy: Continue home gabapentin and tramadol as needed. DVT prophylaxis: Not indicated, on Xarelto CODE STATUS: Full code, verified Expected disposition: SNF, 1 to 2 days Total clinical time spent by myself addressing the patient's medical issues, reviewing all the data, and collaborating with patient's care team: 75 minutes. Charges/Coding Visit Charges Inpatient E&M: 02090 Init Hosp L3
--- NOTE | 2024-05-08 23:21 | CT_ITS ---
INDICATION: XR w/ concern for occult fracture EXAMINATION: CT BONE - CT Ankle W/O Contrast Injection TECHNIQUE: Helically acquired images were obtained of the right ankle. 2-D reformats were performed by the technologist. The protocol utilizes one or more of the following dose reduction techniques: automated exposure control, adjustment of mA and/or kV according to patient size,and/or use of iterative reconstruction technique. IV Contrast dosage and agent: None. RADIATION DOSAGE (If Supplied By Facility): CTDIvol = ( 15.35 ) mGy, DLP = ( 399.82 ) mGycm COMPARISON: Prior study dated: Radiographs 05/08/2024 FINDINGS: SOFT TISSUES: Circumferential superficial edema with skin thickening at the ankle extending into the foot. There is no significant deep soft tissue edema. Scattered vascular calcifications are present.. No radiopaque foreign body. BONES/JOINTS: Osteopenia. No acute fracture identified. The ankle mortise is congruent. Small plantar heel spur. No sclerotic or destructive changes. CT/Extremity Lower without Contra IMPRESSION: No acute fracture or subluxation. Diffuse superficial edema with skin thickening. Electronically Signed: Rashid Perez MD at 0:15 EST ,
[2024-05-09 00:15] VITALS: BP 137/86; PULSE 88; RESP 18; TEMP 36.4; O2SAT 96
[2024-05-09] MEDS: 0.9% Normal Saline (1000mL) 1,000 ML 150 ML IV (01:10)
[2024-05-09 01:15] VITALS: BMI 41.4
[2024-05-09] MEDS: traMADol 50 MG Tablet PO ×2 (05:01→15:31)
[2024-05-09] MEDS: Nystatin Powder 15gm Bottle 1 APPLIC TOPICAL ×3 (05:03→21:40)
[2024-05-09 05:04] VITALS: BP 130/88; PULSE 95; RESP 19; TEMP 36.9; O2SAT 95
[2024-05-09] MEDS: Gabapentin 300 MG Capsule PO ×3 (06:25→21:40)
[2024-05-09 07:28] LABS: Hematocrit 37.7 % (40-54); Hemoglobin 12.1 g/dL (13.0-16.5); Mean Corp Hgb Conc 32.1 g/dL (32-36); Mean Corpuscular Hgb 29.4 pg (27.0-32.0); Mean Corpuscular Volume 91.5 fL (80-94); Mean Platelet Vol. 9.4 fl (6.2-12.0); Platelet Count 275 K/mm3 (150-450); RBC Distribution Width CV 14.4 % (11.6-14.6); Red Blood Count 4.12 M/mm3 (4.6-6.2); White Blood Count 8.5 K/mm3 (4.4-11.0)
[2024-05-09 07:47] LABS: Anion Gap 6 (5-15); BUN 12 mg/dL (7-18); BUN/Creat Ratio 11.2 RATIO (10-20); Calcium,Total 8.4 mg/dL (8.5-10.1); Chloride 110 mmol/L (98-107); Creatinine, Serum 1.07 mg/dL (0.70-1.30); EST Glomerular Filtration Rate 72 mL/min (>60); Est Glom Filt Rate - Afr Amer 87 mL/min (>60); Estimated Creatinine Clearance 72.72 ml/min; Glucose 135 mg/dL (74-106); Potassium 3.6 mmol/L (3.5-5.1); Sodium Level 138 mmol/L (136-145)
--- NOTE | 2024-05-09 08:11 | PCM.PN.HOSP ---
Reason for Visit Reason for Visit: Diagnoses Difficulty in walking, not elsewhere classified (05/08/24) Weakness (05/08/24) Adult failure to thrive (05/08/24) Subjective Subjective Patient is a 73-year-old gentleman with multiple comorbidities who presented to the emergency department following a fall and assessment of physical debility made admitted to a monitored bed for subsequent management Objective Data Objective Data Vital Signs: Vital Signs Temp Pulse Resp BP Pulse Ox O2 Del Method 98.5 F 95 19 H 130/88 H 95 Room Air 05/09/24 05:04 05/09/24 05:04 05/09/24 05:04 05/09/24 05:04 05/09/24 05:04 05/09/24 05:04 Oxygen Delivery Method Room Air Weight: 116.5 kg Body Mass Index (BMI) 41.4 Intake & Output: Intake and Output for Last 24 Hours 05/07/24 05/08/24 05/09/24 23:59 23:59 23:59 Output Total 350 / 350 Balance -350 / -350 Lab / Micro Data 05/09/24 07:01 05/09/24 07:01 Labs: Laboratory Results - last 24 hr 05/08/24 18:29: WBC 9.1, RBC 4.45 L, Hgb 13.4, Hct 40.8, MCV 91.7, MCH 30.1, MCHC 32.8, RDW Std Deviation 48.6 H, RDW Coeff of Naz 14.5, Plt Count 328, MPV 9.4, Immature Gran % (Auto) 0.300, Neut % (Auto) 70.7 H, Lymph % (Auto) 14.4 L, [place] % (Auto) 8.9, Eos % (Auto) 5.5 H, Baso % (Auto) 0.2, Absolute Neuts (auto) 6.4, Absolute Lymphs (auto) 1.31, Nucleated RBC % 0, Sodium 136, Potassium 4.4, Chloride 108 H, Carbon Dioxide 23.0, Anion Gap 5, BUN 16, Creatinine 1.29, Estim Creat Clear Calc 61.62, Est GFR (MDRD) Af Amer 70, Est GFR (MDRD) Non-Af 58 L, BUN/Creatinine Ratio 12.4, Glucose 96, Calcium 9.0, Troponin I High Sens 10 05/08/24 18:50: Urine Color Yellow, Urine Clarity Clear, Urine pH 5.0, Ur Specific [place] 1.020, Urine Protein Negative, Urine Glucose (UA) Normal, Urine Ketones Negative, Urine Occult Blood Negative, Urine Nitrite Negative, Urine Bilirubin Negative, Urine Urobilinogen Normal, Ur Leukocyte Esterase Negative, Urine RBC 0 SEEN, Urine WBC 0-5 SEEN, Ur Squamous Epith Cells 0-5 SEEN, Urine Bacteria 0 SEEN, Urine Mucus 0 SEEN 05/08/24 20:30: Troponin I High Sens 13 05/09/24 07:01: WBC 8.5, RBC 4.12 L, Hgb 12.1 L, Hct 37.7 L, MCV 91.5, MCH 29.4, MCHC 32.1, RDW Std Deviation 48.0 H, RDW Coeff of Naz 14.4, Plt Count 275, MPV 9.4, Sodium 138, Potassium 3.6, Chloride 110 H, Carbon Dioxide 22.0, Anion Gap 6, BUN 12, Creatinine 1.07, Estim Creat Clear Calc 72.72, Est GFR (MDRD) Af Amer 87, Est GFR (MDRD) Non-Af 72, BUN/Creatinine Ratio 11.2, Glucose 135 H, Calcium 8.4 L Micro: Microbiology 05/08/24 21:59 Mucosa - Nose SARS-CoV-2, Influenza & RSV (PCR) - Final Radiography Diagnostic Testing: Radiology Impression Ankle X-Ray 05/08/24 18:55 IMPRESSION: Osteopenia with degenerative arthrosis and calcaneal spurs. No demonstrated fracture or suspicious osseous lesion. There is however diffuse nonspecific soft tissue swelling and a subtle occult fracture could be present Electronically Signed: Walt Faust MD at 20:26 EST , Chest X-Ray 05/08/24 18:55 IMPRESSION: No acute pulmonary process Electronically Signed: Walt Faust MD at 20:25 EST , Hip/Pelvis X-Ray 05/08/24 18:55 IMPRESSION: Age consistent degenerative changes, no acute findings Electronically Signed: Walt Faust MD at 20:28 EST , Knee X-Ray 05/08/24 18:55 IMPRESSION: Degenerative changes, no acute findings Electronically Signed: Walt Faust MD at 20:29 EST , Brain CT 05/08/24 21:55 IMPRESSION: Chronic involutional changes of the brain no acute hemorrhage. No significant interval change Electronically Signed: Walt Faust MD at 22:33 EST , Lower Extremity CT 05/08/24 23:21 IMPRESSION: No acute fracture or subluxation. Diffuse superficial edema with skin thickening. Electronically Signed: Rashid Perez MD at 0:15 EST , Physical Exam Narrative GENERAL: cooperative HEENT: Atraumatic; normocephalic EYES; Anicteric, Normal Conjunctiva NECK; supple, normal thyroid, RESPIRATORY: Diminished to auscultation CARDIOVASCULAR: Regular S1 S2, GI: soft, normoactive bowel sounds, : No Renal angle tenderness; EXTREMITIES: Bilateral lower extremity stasis dermatitis MUSCULOSKELETAL: no muscle wasting NEURO: Awake; left-sided hemiparesis SKIN: No Rash PSYCH; Flat affect Assessment & Plan Assessment/Plan (1) Generalized weakness: (2) Adult failure to thrive: (3) Unable to ambulate: PLAN: Plan Patient is a 73-year-old gentleman with multiple comorbidities who presented to the emergency department following a fall and assessment of physical debility made admitted to a monitored bed for subsequent management 1. Physical deconditioning with multiple falls ? Imaging studies obtained on admission demonstrated no acute fractures nor subluxation. Admitted to a monitored bed. Requested for PT OT eval and social service manager to assist with discharge planning 2. Chronic A-fib ? Rate controlled on systemic anticoagulation with Xarelto 3. 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 Patient was left with some residual right-sided hemiparesis 4. Coronary artery disease ? With previous PCI patient is on guideline directed medical 5. History of previous DVT ? Patient is on rivaroxaban 6. Dyslipidemia ?Patient is on statin therapy, continued at home dose 7. Hypertension ? Blood pressure controlled, home medications continued with dose adjustment as needed 8. Peripheral neuropathy ? Patient is on gabapentin 9. Obstructive sleep apnea ? Consistent use of PAP therapy encouraged 10. Class II obesity with BMI of 41.5 complicating care weight loss advised 11. DVT prophylaxis ? On rivaroxaban Time spent in the patient's overall evaluation,decision-making process, review of diagnostic data, adjustment of management, discussion with other providers, nursing nursing and ancillary staff involved in patient's care documentation, 50 Minutes Charges/Coding Visit Charges Inpatient E&M: 61344 Subs Hosp L3
[2024-05-09 08:29] VITALS: O2SAT 93
[2024-05-09 09:13] VITALS: BP 121/72; PULSE 88; RESP 18; TEMP 36.4; O2SAT 97
[2024-05-09] MEDS: Cholecalciferol (Vit D3) 125 MCG CAPSULE (5,000 UNITS) PO (09:30)
[2024-05-09] MEDS: Menthol/Lanolin/Calamine/Znox 113 GM Tube 1 APPLIC TOPICAL ×2 (09:30→21:41)
[2024-05-09] MEDS: Acetaminophen 500 MG Tablet 1000 MG PO ×2 (09:30→17:03)
[2024-05-09] MEDS: 0.9% Saline Lock 10 ML Syringe IV (09:58)
--- NOTE | 2024-05-09 10:41 | WOUNDNOTE ---
wound photo: left lower leg
--- NOTE | 2024-05-09 10:42 | WOUNDNOTE ---
wound photo: right lower leg
--- NOTE | 2024-05-09 10:42 | WOUNDNOTE ---
wound photo: right lower leg
[2024-05-09 15:28] VITALS: BP 129/77; PULSE 76; RESP 16; TEMP 37; O2SAT 97
--- NOTE | 2024-05-09 16:09 | CHAPLAIN ---
Type of Pastoral Visit _x__ Initial Visit ___ Follow-up Visit ___ On-call Visit ___ General Patient Visit ___ Spiritual Assessment ___ Family Conference ___ Bereavement ___ Rapid Response ___ Code Blue ___ Other (describe below) Pastoral Care Referral From _x__ Patient ___ Family ___ Nurse ___ Physician ___ Gang Ripsaw Operator ___ Tenant Relations Coordinator ___ Other (describe below) Sacrament/Intervention _x__ Active listening ___ Anointing ___ Jehovah'S Witness ___ Bereavement ___ Communion _x__ Estefany exploration ___ _x__ Life review _x__ Prayer ___ Reconciliation ___ Sacrament of Sick _x__ Supportive presence ___ Wedding ___ Other (describe below) Pastoral Comments patient is a frequent admission and has been seen multiple times by this media production operator; pt describes his recent falls out of bed and the current injury; pt admits disappointment with how his life has been in recent years; pt is adamant about staying out of a senior living; pt admits that would be preferred at this point in his life, but I would never kill myself, I just want this to be over, it is too hard on everyone; pt receives support from his son and his estefany in God
[2024-05-09] MEDS: Rivaroxaban 20 MG Tablet PO (17:03)
--- NOTE | 2024-05-09 17:04 | CASEMGMT ---
Met with patient and his son to complete HOLLIS form. HOLLIS form explained to both who voiced understanding. Pt requested that his son sign form. Original form placed in pt?s chart and copy provided to patient. Mary Salcido, Discharge Planning Asst
[2024-05-09] MEDS: Atorvastatin Calcium 40 MG Tablet PO (21:40)
[2024-05-09 21:44] VITALS: BP 126/84; PULSE 77; RESP 16; TEMP 36.9; O2SAT 96
[2024-05-10] MEDS: traMADol 50 MG Tablet PO ×2 (02:13→14:26)
[2024-05-10 03:00] VITALS: BP 136/98; PULSE 79; RESP 18; TEMP 36.6; O2SAT 97
[2024-05-10] MEDS: Gabapentin 300 MG Capsule PO ×3 (05:40→22:01)
[2024-05-10] MEDS: Nystatin Powder 15gm Bottle 1 APPLIC TOPICAL ×3 (05:41→22:01)
[2024-05-10 07:16] LABS: Absolute Lymphocyte Count 1.51 X10^3/uL (0.83-4.51); Absolute Neutrophil Count 3.8 X10^3/uL (2.0-7.7); Basophil# 0.02 X10^3/uL; Basophil% 0.3 % (0-1); Eosinophil# 0.42 X10^3/uL; Eosinophils% 6.7 % (0-5); Hematocrit 36.7 % (40-54); Hemoglobin 12.2 g/dL (13.0-16.5); Lymphocyte # 1.51 X10^3/ul (0.83-4.51); Lymphocyte % 24.2 % (19-41); Mean Corp Hgb Conc 33.2 g/dL (32-36); Mean Corpuscular Hgb 30.3 pg (27.0-32.0); Mean Corpuscular Volume 91.3 fL (80-94); Mean Platelet Vol. 9.4 fl (6.2-12.0); Monocyte# 0.51 X10^3/uL; Monocyte% 8.2 % (0-10); NRBC Flagged by Analyzer 0 % (0-5); Neutrophil # 3.75 X10^3/uL (2.7-7.7); Neutrophil % 60.1 % (47-70); Platelet Count 263 K/mm3 (150-450); RBC Distribution Width CV 14.4 % (11.6-14.6); RBC Distribution Width SD 48.2 fl (35.1-43.9); Red Blood Count 4.02 M/mm3 (4.6-6.2); White Blood Count 6.2 K/mm3 (4.4-11.0)
[2024-05-10 07:47] LABS: Anion Gap 5 (5-15); BUN 11 mg/dL (7-18); BUN/Creat Ratio 10.7 RATIO (10-20); Calcium,Total 8.4 mg/dL (8.5-10.1); Chloride 111 mmol/L (98-107); Creatinine, Serum 1.03 mg/dL (0.70-1.30); EST Glomerular Filtration Rate 75 mL/min (>60); Est Glom Filt Rate - Afr Amer 91 mL/min (>60); Estimated Creatinine Clearance 75.54 ml/min; Glucose 97 mg/dL (74-106); Magnesium 2.1 mg/dL (1.6-2.6); Phosphorus 2.6 mg/dL (2.5-4.9); Potassium 3.4 mmol/L (3.5-5.1); Sodium Level 139 mmol/L (136-145)
[2024-05-10 08:16] VITALS: BP 143/88; PULSE 88; RESP 16; TEMP 36.7; O2SAT 95
[2024-05-10] MEDS: Menthol/Lanolin/Calamine/Znox 113 GM Tube 1 APPLIC TOPICAL ×2 (08:20→22:02)
[2024-05-10] MEDS: Cholecalciferol (Vit D3) 125 MCG CAPSULE (5,000 UNITS) PO (08:20)
[2024-05-10] MEDS: Ensure Plus High Protein 120 ML LIQUID PO ×3 (08:24→22:01)
[2024-05-10] MEDS: Acetaminophen 500 MG Tablet 1000 MG PO ×3 (08:26→22:05)
--- NOTE | 2024-05-10 10:09 | CASEMGMT ---
Addendum entered by Viviana Roy 05/10/24 11:12: [facility] and [facility] are able to accept pt. SW notified pt and requested pt have a facility of choice by Sunday when precert would be started. Pt understanding and agreeable. LEIA Chen Original Note: Social Work SW met with pt and introduced self and role of SW. Pt known to this SW from previous visits. Pt currently lives at home with his son Naeem. Pt has a hospital bed, shower chair and lift for transfers. Pt is alone during the day while son is at work. Son assists with all ADLs. Pt is current with [facility] and receives SN 3x week. SW spoke with pt regarding discharge plan. Pt states that he would be agreeable to SNF if insurance would cover the stay. A list of SNF providers including quality and resource use data and consistent with the patient?s preferred geographic region, medical needs, and insurance network were provided from the CarePort Guide. Pt requesting referrals be made to [facility] and [facility]. SW explained that it is uncertain if insurance will approve SNF stay and pt states if insurance denies stay, pt will return home but will not apply for Medicaid for long term acute care registered nurse care. Pt also states he is now established with the [facility]. SW is uncertain if pt is eligible for VA coverage of SNF. SW to follow up with [facility] on Sunday if insurance does not cover stay. Referrals sent to Gary Whitfield and [facility]. SW to follow up on Sunday. Plan: short term SNF placement, pending acceptance and precert LEIA Chen
[2024-05-10 10:48] VITALS: O2SAT 97
--- NOTE | 2024-05-10 10:55 | PCM.PN.HOSP ---
Reason for Visit Reason for Visit: Diagnoses Difficulty in walking, not elsewhere classified (05/08/24) Weakness (05/08/24) Adult failure to thrive (05/08/24) Subjective Subjective Seen no change in condition awaiting transfer to longterm facility Objective Data Objective Data Vital Signs: Vital Signs Temp Pulse Resp BP Pulse Ox O2 Del Method 98.1 F 88 16 143/88 H 95 Room Air 05/10/24 08:16 05/10/24 08:16 05/10/24 08:16 05/10/24 08:16 05/10/24 08:16 05/10/24 08:16 Oxygen Delivery Method Room Air Weight: 116.5 kg Body Mass Index (BMI) 41.4 Intake & Output: Intake and Output for Last 24 Hours 05/08/24 05/09/24 05/10/24 23:59 23:59 23:59 Intake Total 1960 / 1960 Output Total 950 / 950 Balance 1010 / 1010 Lab / Micro Data 05/10/24 06:43 05/10/24 06:43 Labs: Laboratory Results - last 24 hr 05/10/24 06:43: WBC 6.2, RBC 4.02 L, Hgb 12.2 L, Hct 36.7 L, MCV 91.3, MCH 30.3, MCHC 33.2, RDW Std Deviation 48.2 H, RDW Coeff of Naz 14.4, Plt Count 263, MPV 9.4, Immature Gran % (Auto) 0.500, Neut % (Auto) 60.1, Lymph % (Auto) 24.2, [place] % (Auto) 8.2, Eos % (Auto) 6.7 H, Baso % (Auto) 0.3, Absolute Neuts (auto) 3.8, Absolute Lymphs (auto) 1.51, Nucleated RBC % 0, Sodium 139, Potassium 3.4 L, Chloride 111 H, Carbon Dioxide 23.0, Anion Gap 5, BUN 11, Creatinine 1.03, Estim Creat Clear Calc 75.54, Est GFR (MDRD) Af Amer 91, Est GFR (MDRD) Non-Af 75, BUN/Creatinine Ratio 10.7, Glucose 97, Calcium 8.4 L, Phosphorus 2.6, Magnesium 2.1 Micro: Microbiology 05/08/24 21:59 Mucosa - Nose SARS-CoV-2, Influenza & RSV (PCR) - Final Physical Exam Narrative GENERAL: cooperative HEENT: Atraumatic; normocephalic EYES; Anicteric, Normal Conjunctiva NECK; supple, normal thyroid, RESPIRATORY: Diminished to auscultation CARDIOVASCULAR: Regular S1 S2, GI: soft, normoactive bowel sounds, : No Renal angle tenderness; EXTREMITIES: Bilateral lower extremity stasis dermatitis MUSCULOSKELETAL: no muscle wasting NEURO: Awake; left-sided hemiparesis SKIN: No Rash PSYCH; Flat affect Assessment & Plan Assessment/Plan (1) Generalized weakness: (2) Adult failure to thrive: (3) Unable to ambulate: PLAN: Plan Patient is a 73-year-old gentleman with multiple comorbidities who presented to the emergency department following a fall and assessment of physical debility made admitted to a monitored bed for subsequent management 1. Physical deconditioning with multiple falls ? Imaging studies obtained on admission demonstrated no acute fractures nor subluxation. Admitted to a monitored bed. Requested for PT OT eval and nursing home social worker to assist with discharge planning ? 05/10/2024; awaiting insurance precertification prior to transfer to longterm facility 2. Chronic A-fib ? Rate controlled on systemic anticoagulation with Xarelto 3. 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 Patient was left with some residual right-sided hemiparesis 4. Coronary artery disease ? With previous PCI patient is on guideline directed medical 5. History of previous DVT ? Patient is on rivaroxaban 6. Dyslipidemia ?Patient is on statin therapy, continued at home dose 7. Hypertension ? Blood pressure controlled, home medications continued with dose adjustment as needed 8. Peripheral neuropathy ? Patient is on gabapentin 9. Obstructive sleep apnea ? Consistent use of PAP therapy encouraged 10. Class II obesity with BMI of 41.5 complicating care weight loss advised 11. DVT prophylaxis ? On rivaroxaban Time spent in the patient's overall evaluation,decision-making process, review of diagnostic data, adjustment of management, discussion with other providers, nursing nursing and ancillary staff involved in patient's care documentation, 38 Minutes Charges/Coding Visit Charges Inpatient E&M: 42409 Subs Hosp L2
[2024-05-10 14:00] VITALS: BP 132/96; PULSE 90; RESP 18; TEMP 36.4; O2SAT 97
[2024-05-10] MEDS: Rivaroxaban 20 MG Tablet PO (16:30)
[2024-05-10] MEDS: HYDROmorphone 0.5 MG/0.5 ML SYRINGE IV (16:31)
[2024-05-10 19:34] VITALS: BP 141/92; PULSE 70; RESP 18; TEMP 36.5; O2SAT 99
[2024-05-10] MEDS: oxyCODONE 5 MG Tablet 10 MG PO (19:43)
[2024-05-10 21:55] VITALS: BP 138/103; PULSE 76; RESP 18; TEMP 36.9; O2SAT 96
[2024-05-10] MEDS: Atorvastatin Calcium 40 MG Tablet PO (22:01)
[2024-05-11 04:22] VITALS: BP 113/71; PULSE 77; RESP 18; TEMP 36.7; O2SAT 97
[2024-05-11] MEDS: oxyCODONE 5 MG Tablet 10 MG PO ×3 (04:25→14:12)
[2024-05-11 05:46] LABS: Absolute Lymphocyte Count 1.13 X10^3/uL (0.83-4.51); Absolute Neutrophil Count 5.7 X10^3/uL (2.0-7.7); Basophil# 0.02 X10^3/uL; Basophil% 0.3 % (0-1); Eosinophil# 0.49 X10^3/uL; Eosinophils% 6.1 % (0-5); Hematocrit 36.4 % (40-54); Hemoglobin 12.3 g/dL (13.0-16.5); Lymphocyte # 1.13 X10^3/ul (0.83-4.51); Lymphocyte % 14.1 % (19-41); Mean Corp Hgb Conc 33.8 g/dL (32-36); Mean Corpuscular Hgb 30.8 pg (27.0-32.0); Mean Platelet Vol. 9.2 fl (6.2-12.0); Monocyte# 0.67 X10^3/uL; Monocyte% 8.4 % (0-10); NRBC Flagged by Analyzer 0 % (0-5); Neutrophil # 5.65 X10^3/uL (2.7-7.7); Neutrophil % 70.6 % (47-70); Platelet Count 263 K/mm3 (150-450); RBC Distribution Width CV 14.3 % (11.6-14.6); RBC Distribution Width SD 48.1 fl (35.1-43.9)
[2024-05-11 06:00] LABS: Anion Gap 4 (5-15); BUN 11 mg/dL (7-18); BUN/Creat Ratio 12.2 RATIO (10-20); Calcium,Total 8.6 mg/dL (8.5-10.1); Chloride 109 mmol/L (98-107); EST Glomerular Filtration Rate 87 mL/min (>60); Est Glom Filt Rate - Afr Amer 106 mL/min (>60); Estimated Creatinine Clearance 86.45 ml/min; Glucose 114 mg/dL (74-106); Potassium 3.3 mmol/L (3.5-5.1); Sodium Level 137 mmol/L (136-145)
[2024-05-11] MEDS: Gabapentin 300 MG Capsule PO ×3 (06:23→21:58)
[2024-05-11] MEDS: Acetaminophen 500 MG Tablet 1000 MG PO ×2 (06:23→14:15)
[2024-05-11] MEDS: Nystatin Powder 15gm Bottle 1 APPLIC TOPICAL ×3 (06:24→22:03)
[2024-05-11 06:48] VITALS: O2SAT 95
--- NOTE | 2024-05-11 07:31 | PN.HOSP_ITS ---
Reason for Visit Reason for Visit: Diagnoses Difficulty in walking, not elsewhere classified (05/08/24) Weakness (05/08/24) Adult failure to thrive (05/08/24) Subjective Subjective Patient seen adjusted patient pain regimen with some improvement in his symptoms. Awaiting insurance present occasion prior to transfer to nursing home Objective Data Objective Data Vital Signs: Vital Signs Temp Pulse Resp BP Pulse Ox O2 Del Method 98.0 F 77 18 113/71 97 Room Air 05/11/24 04:22 05/11/24 04:22 05/11/24 04:22 05/11/24 04:22 05/11/24 04:22 05/11/24 04:22 Oxygen Delivery Method Room Air Weight: 116.5 kg Body Mass Index (BMI) 41.4 Intake & Output: Intake and Output for Last 24 Hours 05/09/24 05/10/24 05/11/24 23:59 23:59 23:59 Intake Total 1960 / 1960 120 / 120 120 / 120 Output Total 950 / 950 900 / 900 300 / 300 Balance 1010 / 1010 -780 / -780 -180 / -180 Lab / Micro Data 05/11/24 05:24 05/11/24 05:24 Labs: Laboratory Results - last 24 hr 05/10/24 06:43: Sodium 139, Potassium 3.4 L, Chloride 111 H, Carbon Dioxide 23.0, Anion Gap 5, BUN 11, Creatinine 1.03, Estim Creat Clear Calc 75.54, Est GFR (MDRD) Af Amer 91, Est GFR (MDRD) Non-Af 75, BUN/Creatinine Ratio 10.7, Glucose 97, Calcium 8.4 L, Phosphorus 2.6, Magnesium 2.1 05/11/24 05:24: WBC 8.0, RBC 4.00 L, Hgb 12.3 L, Hct 36.4 L, MCV 91.0, MCH 30.8, MCHC 33.8, RDW Std Deviation 48.1 H, RDW Coeff of Naz 14.3, Plt Count 263, MPV 9.2, Immature Gran % (Auto) 0.500, Neut % (Auto) 70.6 H, Lymph % (Auto) 14.1 L, [place] % (Auto) 8.4, Eos % (Auto) 6.1 H, Baso % (Auto) 0.3, Absolute Neuts (auto) 5.7, Absolute Lymphs (auto) 1.13, Nucleated RBC % 0, Sodium 137, Potassium 3.3 L , Chloride 109 H, Carbon Dioxide 24.0, Anion Gap 4 L, BUN 11, Creatinine 0.90, Estim Creat Clear Calc 86.45, Est GFR (MDRD) Af Amer 106, Est GFR (MDRD) Non-Af 87, BUN/Creatinine Ratio 12.2, Glucose 114 H, Calcium 8.6 Micro: Microbiology 05/09/24 00:49 Wound - Leg Gram Stain - Final 05/09/24 00:49 Wound - Leg Wound Culture - Preliminary GNR Poss Pseudomonas sp Mixed Gram Positive Organisms 05/08/24 21:59 Mucosa - Nose SARS-CoV-2, Influenza & RSV (PCR) - Final Physical Exam Narrative GENERAL: cooperative HEENT: Atraumatic; normocephalic EYES; Anicteric, Normal Conjunctiva NECK; supple, normal thyroid, RESPIRATORY: Diminished to auscultation CARDIOVASCULAR: Regular S1 S2, GI: soft, normoactive bowel sounds, : No Renal angle tenderness; EXTREMITIES: Bilateral lower extremity stasis dermatitis MUSCULOSKELETAL: no muscle wasting NEURO: Awake; left-sided hemiparesis SKIN: No Rash PSYCH; Flat affect Assessment & Plan Assessment/Plan (1) Generalized weakness: (2) Adult failure to thrive: (3) Unable to ambulate: PLAN: Plan Patient is a 73-year-old gentleman with multiple comorbidities who presented to the emergency department following a fall and assessment of physical debility made admitted to a monitored bed for subsequent management 1. Physical deconditioning with multiple falls ? Imaging studies obtained on admission demonstrated no acute fractures nor subluxation. Admitted to a monitored bed. Requested for PT OT eval and social work therapist to assist with discharge planning ? 05/10/2024; awaiting insurance precertification prior to transfer to nursing home facility ? 05/11/2024Patient seen adjusted patient pain regimen with some improvement in his symptoms. Awaiting insurance present occasion prior to transfer to nursing home 2. Chronic A-fib ? Rate controlled on systemic anticoagulation with Xarelto 3. 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 Patient was left with some residual right-sided hemiparesis 4. Coronary artery disease ? With previous PCI patient is on guideline directed medical 5. History of previous DVT ? Patient is on rivaroxaban 6. Dyslipidemia ?Patient is on statin therapy, continued at home dose 7. Hypertension ? Blood pressure controlled, home medications continued with dose adjustment as needed 8. Peripheral neuropathy ? Patient is on gabapentin 9. Obstructive sleep apnea ? Consistent use of PAP therapy encouraged 10. Class II obesity with BMI of 41.5 complicating care weight loss advised 11. DVT prophylaxis ? On rivaroxaban Time spent in the patient's overall evaluation,decision-making process, review of diagnostic data, adjustment of management, discussion with other providers, nursing nursing and ancillary staff involved in patient's care documentation, 36 minutes Charges/Coding Visit Charges Inpatient E&M: 79974 Subs Hosp L2
[2024-05-11] MEDS: Menthol/Lanolin/Calamine/Znox 113 GM Tube 1 APPLIC TOPICAL ×2 (09:02→22:03)
[2024-05-11] MEDS: Cholecalciferol (Vit D3) 125 MCG CAPSULE (5,000 UNITS) PO (09:02)
[2024-05-11] MEDS: Ensure Plus High Protein 120 ML LIQUID PO (09:05)
[2024-05-11 10:00] VITALS: BP 116/81; PULSE 66; RESP 16; TEMP 36.5; O2SAT 97
[2024-05-11] MEDS: Potassium Chloride Oral Tablet 20 MEQ 40 MEQ PO (11:52)
[2024-05-11 16:10] VITALS: BP 119/79; PULSE 84; RESP 16; TEMP 36.4; O2SAT 96
[2024-05-11] MEDS: Rivaroxaban 20 MG Tablet PO (17:20)
[2024-05-11] MEDS: Potassium Chloride Oral Tablet 20 MEQ PO (17:20)
[2024-05-11 21:54] VITALS: BP 120/73; PULSE 87; RESP 14; TEMP 36.6; O2SAT 97
[2024-05-11] MEDS: Atorvastatin Calcium 40 MG Tablet PO (21:59)
[2024-05-12 03:41] VITALS: BP 135/67; PULSE 85; RESP 18; TEMP 36.9; O2SAT 98
[2024-05-12 06:22] LABS: Absolute Lymphocyte Count 1.05 X10^3/uL (0.83-4.51); Absolute Neutrophil Count 5.5 X10^3/uL (2.0-7.7); Basophil# 0.02 X10^3/uL; Basophil% 0.3 % (0-1); Eosinophil# 0.38 X10^3/uL; Eosinophils% 5.1 % (0-5); Hematocrit 37.1 % (40-54); Lymphocyte # 1.05 X10^3/ul (0.83-4.51); Mean Corp Hgb Conc 32.3 g/dL (32-36); Mean Corpuscular Hgb 29.9 pg (27.0-32.0); Mean Corpuscular Volume 92.5 fL (80-94); Mean Platelet Vol. 9.2 fl (6.2-12.0); Monocyte# 0.54 X10^3/uL; Monocyte% 7.2 % (0-10); NRBC Flagged by Analyzer 0 % (0-5); Neutrophil # 5.47 X10^3/uL (2.7-7.7); Neutrophil % 73.1 % (47-70); Platelet Count 239 K/mm3 (150-450); RBC Distribution Width CV 14.3 % (11.6-14.6); RBC Distribution Width SD 48.8 fl (35.1-43.9); Red Blood Count 4.01 M/mm3 (4.6-6.2); White Blood Count 7.5 K/mm3 (4.4-11.0)
[2024-05-12 06:48] LABS: Anion Gap 4 (5-15); BUN 12 mg/dL (7-18); BUN/Creat Ratio 14.1 RATIO (10-20); Calcium,Total 8.7 mg/dL (8.5-10.1); Chloride 111 mmol/L (98-107); Creatinine, Serum 0.85 mg/dL (0.70-1.30); EST Glomerular Filtration Rate 93 mL/min (>60); Est Glom Filt Rate - Afr Amer 113 mL/min (>60); Estimated Creatinine Clearance 91.54 ml/min; Glucose 94 mg/dL (74-106); Potassium 3.7 mmol/L (3.5-5.1); Sodium Level 138 mmol/L (136-145)
[2024-05-12] MEDS: oxyCODONE 5 MG Tablet 10 MG PO ×2 (08:28→13:24)
[2024-05-12] MEDS: Potassium Chloride Oral Tablet 20 MEQ PO ×2 (08:28→17:22)
[2024-05-12] MEDS: Cholecalciferol (Vit D3) 125 MCG CAPSULE (5,000 UNITS) PO (08:29)
[2024-05-12] MEDS: Menthol/Lanolin/Calamine/Znox 113 GM Tube 1 APPLIC TOPICAL ×2 (08:29→21:50)
[2024-05-12] MEDS: Ensure Plus High Protein 120 ML LIQUID PO ×3 (08:29→17:22)
--- NOTE | 2024-05-12 10:01 | CASEMGMT ---
Addendum entered by Mary Salcido 05/14/24 12:36: Pts insurance denied auth. Gary Pt asked to cancel referral. Mary Salcido DC Planning Asst. Original Note: Discharge Planning Pts foc is Gary Harley. Updates sent with request to submit for precert. Anna asked to cancel referral. Mary Salcido DC Planning Asst.
[2024-05-12 12:00] VITALS: BP 104/62; PULSE 74; RESP 18; TEMP 36.9; O2SAT 97
[2024-05-12] MEDS: Gabapentin 300 MG Capsule PO ×2 (14:32→21:49)
[2024-05-12] MEDS: Nystatin Powder 15gm Bottle 1 APPLIC TOPICAL ×2 (14:32→21:50)
[2024-05-12] MEDS: Acetaminophen 500 MG Tablet 1000 MG PO ×2 (14:32→21:49)
--- NOTE | 2024-05-12 15:59 | PN.HOSP_ITS ---
Reason for Visit Reason for Visit: Diagnoses Difficulty in walking, not elsewhere classified (05/08/24) Weakness (05/08/24) Adult failure to thrive (05/08/24) Objective Data Objective Data Vital Signs: Vital Signs Temp Pulse Resp BP Pulse Ox O2 Del Method 98.5 F 74 18 104/62 97 Room Air 05/12/24 12:00 05/12/24 12:00 05/12/24 12:00 05/12/24 12:00 05/12/24 12:00 05/12/24 12:00 Oxygen Delivery Method Room Air Weight: 256 lb 13.416 oz Body Mass Index (BMI) 41.4 Intake & Output: Intake and Output for Last 24 Hours 05/10/24 05/11/24 05/12/24 23:59 23:59 23:59 Intake Total 120 / 120 360 / 360 0 / 0 Output Total 900 / 900 450 / 450 Balance -780 / -780 -90 / -90 0 / 0 Lab / Micro Data 05/12/24 05:55 05/12/24 05:55 Labs: Laboratory Results - last 24 hr 05/12/24 05:55: WBC 7.5, RBC 4.01 L, Hgb 12.0 L, Hct 37.1 L, MCV 92.5, MCH 29.9, MCHC 32.3, RDW Std Deviation 48.8 H, RDW Coeff of Naz 14.3, Plt Count 239, MPV 9.2, Immature Gran % (Auto) 0.300, Neut % (Auto) 73.1 H, Lymph % (Auto) 14.0 L, [place] % (Auto) 7.2, Eos % (Auto) 5.1 H, Baso % (Auto) 0.3, Absolute Neuts (auto) 5.5, Absolute Lymphs (auto) 1.05, Nucleated RBC % 0, Sodium 138, Potassium 3.7, Chloride 111 H, Carbon Dioxide 23.0, Anion Gap 4 L, BUN 12, Creatinine 0.85, Estim Creat Clear Calc 91.54, Est GFR (MDRD) Af Amer 113, Est GFR (MDRD) Non-Af 93, BUN/Creatinine Ratio 14.1, Glucose 94, Calcium 8.7 Micro: Microbiology 05/09/24 00:49 Wound - Leg Gram Stain - Final 05/09/24 00:49 Wound - Leg Wound Culture - Final Pseudomonas aeruginosa Streptococcus dysgalactiae equ 05/08/24 21:59 Mucosa - Nose SARS-CoV-2, Influenza & RSV (PCR) - Final Physical Exam Narrative Seen and examined Patient has chronic lymphedema with history of right hemiparesis from a stroke. Bilateral basilar. Patient stated he has a fluid drainage from the leg. Physical exam General: Alert, Oriented x3, Cooperative. Morbid obesity BMI 41.5 kg/m? HEENT: Atraumatic, PERRLA, EOMI, Normocephalic Oral: No Gingival or Mucosal Lesions/ Ulcerations Neck: Supple, No JVD, Negative Carotid Bruits Chest wall/Lungs: Air entry diminished in bilateral lung bases. No crepitation/rhonchi Cardiovascular: Regular rate, Regular Rhythm, Normal S1, Normal S2, No M/G/R Abdomen: Bowel Sounds Present, Soft, Non Tender, Non-Distended : No dysuria. No renal angle tenderness. No suprapubic tenderness. Extremities: Right more than left edema bilateral., Capillary Refill Less than 3 Seconds Skin: Stasis venous ulcer on right leg. Musculoskeletal: No Tenderness to Palpation of Joints or Extremities Neurological: Cranial nerves II-XII grossly intact, DTR 2+/4. No acute focal neurological deficit. Psych/Mental Status: Flat affect Assessment & Plan Assessment/Plan (1) Generalized weakness: (2) Adult failure to thrive: (3) Unable to ambulate: PLAN: Plan Patient is a 73-year-old gentleman with multiple comorbidities who presented to the emergency department following a fall and assessment of physical debility made admitted to a monitored bed for subsequent management 1. Physical deconditioning with multiple falls ? Imaging studies obtained on admission demonstrated no acute fractures nor subluxation. Admitted to a monitored bed. Requested for PT OT eval and director of social media marketing to assist with discharge planning ? 05/10/2024; awaiting insurance precertification prior to transfer to residential facility ? 05/11/2024Patient seen adjusted patient pain regimen with some improvement in his symptoms. Awaiting insurance present occasion prior to transfer to residential 05/12: Pre-CERT is pending. Bilateral leg swelling/edema with fluid seepage. Venous ulcer. 2. Chronic A-fib ? Rate controlled on systemic anticoagulation with Xarelto 3. 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 Patient was left with some residual right-sided hemiparesis 4. Coronary artery disease ? With previous PCI patient is on guideline directed medical 5. History of previous DVT ? Patient is on rivaroxaban 6. Dyslipidemia ?Patient is on statin therapy, continued at home dose 7. Hypertension ? Blood pressure controlled, home medications continued with dose adjustment as needed 8. Peripheral neuropathy ? Patient is on gabapentin 9. Obstructive sleep apnea ? Consistent use of PAP therapy encouraged 10. Class II obesity with BMI of 41.5 complicating care weight loss advised 11. DVT prophylaxis ? On rivaroxaban
[2024-05-12 16:00] VITALS: BP 119/76; PULSE 84; RESP 19; TEMP 37; O2SAT 98
[2024-05-12] MEDS: Rivaroxaban 20 MG Tablet PO (17:22)
[2024-05-12] MEDS: Atorvastatin Calcium 40 MG Tablet PO (21:49)
[2024-05-12 21:54] VITALS: BP 132/81; PULSE 82; RESP 19; TEMP 37.1; O2SAT 95
[2024-05-13] MEDS: oxyCODONE 5 MG Tablet 10 MG PO ×3 (03:26→22:30)
[2024-05-13 04:12] VITALS: BP 98/68; PULSE 79; RESP 18; TEMP 36.6; O2SAT 100
[2024-05-13] MEDS: Nystatin Powder 15gm Bottle 1 APPLIC TOPICAL ×3 (05:28→22:32)
[2024-05-13] MEDS: Acetaminophen 500 MG Tablet 1000 MG PO ×3 (05:28→22:32)
[2024-05-13] MEDS: Gabapentin 300 MG Capsule PO ×3 (05:28→22:30)
[2024-05-13] MEDS: Menthol/Lanolin/Calamine/Znox 113 GM Tube 1 APPLIC TOPICAL ×2 (08:47→22:33)
[2024-05-13] MEDS: Cholecalciferol (Vit D3) 125 MCG CAPSULE (5,000 UNITS) PO (08:47)
[2024-05-13] MEDS: Ensure Plus High Protein 120 ML LIQUID PO ×4 (08:47→22:30)
[2024-05-13] MEDS: Potassium Chloride Oral Tablet 20 MEQ PO (08:47)
--- NOTE | 2024-05-13 14:47 | PN.HOSP_ITS ---
Reason for Visit Reason for Visit: Diagnoses Difficulty in walking, not elsewhere classified (05/08/24) Weakness (05/08/24) Adult failure to thrive (05/08/24) Objective Data Objective Data Vital Signs: Vital Signs Temp Pulse Resp BP Pulse Ox O2 Del Method 97.8 F 79 18 98/68 100 Room Air 05/13/24 04:12 05/13/24 04:12 05/13/24 04:12 05/13/24 04:12 05/13/24 04:12 05/13/24 14:00 Oxygen Delivery Method Room Air Weight: 256 lb 13.416 oz Body Mass Index (BMI) 41.4 Intake & Output: Intake and Output for Last 24 Hours 05/11/24 05/12/24 05/13/24 23:59 23:59 23:59 Intake Total 360 / 360 500 / 500 240 / 240 Output Total 450 / 450 350 / 350 Balance -90 / -90 150 / 150 240 / 240 Lab / Micro Data 05/12/24 05:55 05/12/24 05:55 Micro: Microbiology 05/09/24 00:49 Wound - Leg Gram Stain - Final 05/09/24 00:49 Wound - Leg Wound Culture - Final Pseudomonas aeruginosa Streptococcus dysgalactiae equ 05/08/24 21:59 Mucosa - Nose SARS-CoV-2, Influenza & RSV (PCR) - Final Physical Exam Narrative Seen and examined Patient has chronic lymphedema with history of right hemiparesis from a stroke. Patient stated he has a fluid drainage from the leg. Physical exam General: Alert, Oriented x3, Cooperative. Morbid obesity BMI 41.5 kg/m? HEENT: Atraumatic, PERRLA, EOMI, Normocephalic Oral: No Gingival or Mucosal Lesions/ Ulcerations Neck: Supple, No JVD, Negative Carotid Bruits Chest wall/Lungs: Air entry diminished in bilateral lung bases. No crepitation/rhonchi Cardiovascular: Regular rate, Regular Rhythm, Normal S1, Normal S2, No M/G/R Abdomen: Bowel Sounds Present, Soft, Non Tender, Non-Distended : No dysuria. No renal angle tenderness. No suprapubic tenderness. Extremities: Right more than left edema bilateral., Capillary Refill Less than 3 Seconds Skin: Stasis venous ulcer onboth legs, getting better. Superficial venous ulcers are more dry Musculoskeletal: No Tenderness to Palpation of Joints or Extremities Neurological: Cranial nerves II-XII grossly intact, DTR 2+/4. No acute focal neurological deficit. Psych/Mental Status: Flat affect Assessment & Plan Assessment/Plan (1) Generalized weakness: (2) Adult failure to thrive: (3) Unable to ambulate: PLAN: Plan Patient is a 73-year-old gentleman with multiple comorbidities who presented to the emergency department following a fall and assessment of physical debility made admitted to a monitored bed for subsequent management 1. Physical deconditioning with multiple falls ? Imaging studies obtained on admission demonstrated no acute fractures nor subluxation. Admitted to a monitored bed. Requested for PT OT eval and social services specialist to assist with discharge planning ? 05/10/2024; awaiting insurance precertification prior to transfer to correction facility ? 05/11/2024Patient seen adjusted patient pain regimen with some improvement in his symptoms. Awaiting insurance present occasion prior to transfer to correction 05/12: Pre-CERT is pending. Bilateral leg swelling/edema with fluid seepage. Venous ulcer. 05/13: Improvement in the leg swelling. Continue diuretic. Jaden wrap bandage and dressing 2. Chronic A-fib ? Rate controlled on systemic anticoagulation with Xarelto 3. 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 Patient was left with some residual right-sided hemiparesis 4. Coronary artery disease ? With previous PCI patient is on guideline directed medical 5. History of previous DVT ? Patient is on rivaroxaban 6. Dyslipidemia ?Patient is on statin therapy, continued at home dose 7. Hypertension ? Blood pressure controlled, home medications continued with dose adjustment as needed 8. Peripheral neuropathy ? Patient is on gabapentin 9. Obstructive sleep apnea ? Consistent use of PAP therapy encouraged 10. Class II obesity with BMI of 41.5 complicating care weight loss advised 11. DVT prophylaxis ? On rivaroxaban Charges/Coding Visit Charges Inpatient E&M: 24978 Subs Hosp L2
--- NOTE | 2024-05-13 14:55 | CASEMGMT ---
SW went to patient's room per patient's request. Patient's son was present and he asked about patient's VA benefits and SNF. JESSIE explained that SW would have to call the VA SW and find out if patient is service connected. Patient's son was concerned that if for some reason insurance would not approve patient to go to the half-way could he go on his VA. SW will find out this information. JESSIE then explained that there are only certain nursing homes that have contracts with the VA. JESSIE called Julio Cesar one of the VA SW's and left her a voice mail requesting a return call regarding patient. Batsheva ANTUNEZ
--- NOTE | 2024-05-13 15:09 | CASEMGMT ---
JESSIE received a phone call from Vargas Bhatti. Davy said patient is not eligible for [place] to pay for [facility] stay. JESSIE notified patient who then asked JESSIE to have his son Naeem give him a call. JESSIE placed patient's room phone right beside patient in the bed. JESSIE called Naeem and explained what the VA said and that patient would like to talk with him. JESSIE gave Naeem the phone number to patient's room. Awaiting pre-cert for [facility]. Batsheva Campbell BOOTMAKERSunshine ANTUNEZ
[2024-05-13 16:00] VITALS: BP 144/89; PULSE 85; RESP 18; TEMP 36.7; O2SAT 97
[2024-05-13] MEDS: Potassium Chloride Oral Tablet 20 MEQ 40 MEQ PO (18:15)
[2024-05-13] MEDS: Furosemide 40 MG Tablet PO (18:15)
[2024-05-13] MEDS: Rivaroxaban 20 MG Tablet PO (18:15)
[2024-05-13 22:30] VITALS: BP 154/94; PULSE 74; RESP 18; TEMP 36.9; O2SAT 98
[2024-05-13] MEDS: Atorvastatin Calcium 40 MG Tablet PO (22:32)
[2024-05-13] MEDS: Ondansetron 4 MG/2 ML Vial IV (23:32)
[2024-05-13] MEDS: 0.9% Saline Lock 10 ML Syringe IV (23:36)
[2024-05-14 04:27] VITALS: BP 133/103; PULSE 74; RESP 18; TEMP 36.7; O2SAT 98
[2024-05-14 04:33] VITALS: O2SAT 98
[2024-05-14] MEDS: Gabapentin 300 MG Capsule PO ×2 (05:41→15:37)
[2024-05-14] MEDS: Acetaminophen 500 MG Tablet 1000 MG PO ×2 (05:42→15:37)
[2024-05-14] MEDS: Nystatin Powder 15gm Bottle 1 APPLIC TOPICAL ×2 (05:42→15:36)
[2024-05-14 06:31] LABS: Anion Gap 3 (5-15); BUN 12 mg/dL (7-18); BUN/Creat Ratio 13.1 RATIO (10-20); Calcium,Total 8.7 mg/dL (8.5-10.1); Chloride 110 mmol/L (98-107); Creatinine, Serum 0.92 mg/dL (0.70-1.30); EST Glomerular Filtration Rate 86 mL/min (>60); Est Glom Filt Rate - Afr Amer 104 mL/min (>60); Estimated Creatinine Clearance 84.57 ml/min; Glucose 100 mg/dL (74-106); Potassium 3.5 mmol/L (3.5-5.1); Sodium Level 138 mmol/L (136-145)
[2024-05-14 08:32] VITALS: BP 149/83; PULSE 64; RESP 18; TEMP 36.8; O2SAT 97
[2024-05-14] MEDS: Furosemide 40 MG Tablet PO (09:14)
[2024-05-14] MEDS: Cholecalciferol (Vit D3) 125 MCG CAPSULE (5,000 UNITS) PO (09:14)
[2024-05-14] MEDS: Potassium Chloride Oral Tablet 20 MEQ 40 MEQ PO ×2 (09:14→15:37)
[2024-05-14] MEDS: oxyCODONE 5 MG Tablet 10 MG PO (09:15)
[2024-05-14] MEDS: Ensure Plus High Protein 120 ML LIQUID PO ×3 (09:17→18:16)
--- NOTE | 2024-05-14 11:31 | CASEMGMT ---
SW received a call from patient's insurance stating they are offering a peer to peer for SNF stay. Deadline is today 05-14 at 330. Phone number is option 5. Physician will need patient's name, date of , and ID number. Should [employer] not hear from physician their physician will make a determination based on the information they have. SW will notify physician. Batsheva Campbell MSW HARMONY
--- NOTE | 2024-05-14 11:47 | CASEMGMT ---
Discharge Planning A list of?HH providers including quality and resource use data and consistent with the patient's preferred geographic region, medical needs, and insurance network was created in CarePort Guide.? This list was provided to the RN HIWOT. Mary Salcido, Discharge Planning Asst.
--- NOTE | 2024-05-14 14:00 | CASEMGMT ---
Gary Harley's MDS nurse notified patient's son that a peer to peer is being requested and that one was not going to be done. Gary Harley said patient's son wants to know why a peer to peer is not being done. SW notified physician who completed a peer to peer. SW notified Gary Harley that a peer to peer was done. SW will also notify patient's son Naeem. Batsheva Campbell FLITCH HANGER HARMONY
--- NOTE | 2024-05-14 14:07 | PCM.PN.HOSP ---
Reason for Visit Reason for Visit: Diagnoses Difficulty in walking, not elsewhere classified (05/08/24) Weakness (05/08/24) Adult failure to thrive (05/08/24) Objective Data Objective Data Vital Signs: Vital Signs Temp Pulse Resp BP Pulse Ox O2 Del Method 98.3 F 64 18 149/83 H 97 Room Air 05/14/24 08:32 05/14/24 08:32 05/14/24 08:32 05/14/24 08:32 05/14/24 08:32 05/14/24 08:35 Oxygen Delivery Method Room Air Weight: 256 lb 13.416 oz Body Mass Index (BMI) 41.4 Intake & Output: Intake and Output for Last 24 Hours 05/12/24 05/13/24 05/14/24 23:59 23:59 23:59 Intake Total 500 / 500 810 / 810 120 / 120 Output Total 350 / 350 1300 / 1300 500 / 500 Balance 150 / 150 -490 / -490 -380 / -380 Lab / Micro Data 05/12/24 05:55 05/14/24 05:46 Labs: Laboratory Results - last 24 hr 05/14/24 05:46: Sodium 138, Potassium 3.5, Chloride 110 H, Carbon Dioxide 26.0, Anion Gap 3 L, BUN 12, Creatinine 0.92, Estim Creat Clear Calc 84.57, Est GFR (MDRD) Af Amer 104, Est GFR (MDRD) Non-Af 86, BUN/Creatinine Ratio 13.1, Glucose 100, Calcium 8.7 Micro: Microbiology 05/09/24 00:49 Wound - Leg Gram Stain - Final 05/09/24 00:49 Wound - Leg Wound Culture - Final Pseudomonas aeruginosa Streptococcus dysgalactiae equ 05/08/24 21:59 Mucosa - Nose SARS-CoV-2, Influenza & RSV (PCR) - Final Physical Exam Narrative Seen and examined Leg swelling is getting better. Fluid seepage has decreased and almost resolved. Patient has chronic lymphedema with history of right hemiparesis from a stroke. Physical exam General: Alert, Oriented x3, Cooperative. Morbid obesity BMI 41.5 kg/m? HEENT: Atraumatic, PERRLA, EOMI, Normocephalic Oral: No Gingival or Mucosal Lesions/ Ulcerations Neck: Supple, No JVD, Negative Carotid Bruits Chest wall/Lungs: Air entry diminished in bilateral lung bases. No crepitation/rhonchi Cardiovascular: Regular rate, Regular Rhythm, Normal S1, Normal S2, No M/G/R Abdomen: Bowel Sounds Present, Soft, Non Tender, Non-Distended : No dysuria. No renal angle tenderness. No suprapubic tenderness. Extremities: Right more than left edema bilateral., Capillary Refill Less than 3 Seconds Skin: Stasis venous ulcer on both legs, getting better. Superficial venous ulcers are dry Musculoskeletal: No Tenderness to Palpation of Joints or Extremities Neurological: Cranial nerves II-XII grossly intact, DTR 2+/4. No acute focal neurological deficit. Psych/Mental Status: Flat affect Assessment & Plan Assessment/Plan (1) Generalized weakness: (2) Adult failure to thrive: (3) Unable to ambulate: PLAN: Plan Patient is a 73-year-old gentleman with multiple comorbidities who presented to the emergency department following a fall and assessment of physical debility made admitted to a monitored bed for subsequent management 1. Physical deconditioning with multiple falls ? Imaging studies obtained on admission demonstrated no acute fractures nor subluxation. Admitted to a monitored bed. Requested for PT OT eval and professor of social work to assist with discharge planning ? 05/10/2024; awaiting insurance precertification prior to transfer to custodial facility ? 05/11/2024Patient seen adjusted patient pain regimen with some improvement in his symptoms. Awaiting insurance present occasion prior to transfer to custodial 05/12: Pre-CERT is pending. Bilateral leg swelling/edema with fluid seepage. Venous ulcer. 05/13: Improvement in the leg swelling. Continue diuretic. Jaden wrap bandage and dressing 05/14: Patient was refused for SNF. Peer to peer called. Information regarding previous baseline, physical therapy assessment and recommendation was given to insurance doctor. She will make determination after complete review the chart and will let us know. Venous ulcer on both leg on course of great saphenous vein. 2. Chronic A-fib ? Rate controlled on systemic anticoagulation with Xarelto 05/14 heart rate is controlled. 3. 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 Patient was left with some residual right-sided hemiparesis 4. Coronary artery disease ? With previous PCI patient is on guideline directed medical 5. History of previous DVT ? Patient is on rivaroxaban 6. Dyslipidemia ?Patient is on statin therapy, continued at home dose 7. Hypertension ? Blood pressure controlled, home medications continued with dose adjustment as needed 8. Peripheral neuropathy ? Patient is on gabapentin 9. Obstructive sleep apnea ? Consistent use of PAP therapy encouraged 10. Class II obesity with BMI of 41.5 complicating care weight loss advised 11. DVT prophylaxis ? On rivaroxaban Charges/Coding Addendum Addendum: Total time of the visit including total time spent in counseling or coordination of care, (more than 50% of the total time, spent in obtaining medical information from nurses and other ancillary care providers ,explaining to the patient about labs, imaging, diagnosis and management of active complex medical conditions), peer to peer review with the insurance approval doctor for ECF, review of labs and imaging is 35 minutes. Visit Charges Inpatient E&M: 51518 Subs Hosp L3
[2024-05-14 14:30] VITALS: BP 134/86; PULSE 60; RESP 18; TEMP 36.4; O2SAT 99
[2024-05-14] MEDS: Rivaroxaban 20 MG Tablet PO (15:37)
--- NOTE | 2024-05-14 15:59 | PCM.TXEXTCAR ---
Diet Diet Order/Speech Therapy: 05/11/24 08:15 Diet: Regular - General Diet Comments: assist pt w/ setup Routine Orders/Code Status Suppository Type: Dulcolax 10mg Suppository Frequency: Daily PRN DC O2, CPAP, BIPAP needs Home O2 Discharge instructions: No Wound(s) right lower leg: Wound Type: Stasis Ulcer Dressing Change: Aquacel left delgadillo: Wound Type: cluster open areas Dressing Change: Adaptic Therapies Extremity Affected:: Bilateral Lower Physical Therapy: Eval and Treat Occupational Therapy: Eval and Treat Speech Therapy: Eval and Treat Problem/Diagnosis (1) Generalized weakness: Status: Acute Code(s): R53.1 - Weakness (2) Adult failure to thrive: Status: Acute Code(s): R62.7 - Adult failure to thrive (3) Unable to ambulate: Status: Acute Code(s): R26.2 - Difficulty in walking, not elsewhere classified Plan Patient is a 73-year-old gentleman with multiple comorbidities who presented to the emergency department following a fall and assessment of physical debility made admitted to a monitored bed for subsequent management 1. Physical deconditioning with multiple falls ? Imaging studies obtained on admission demonstrated no acute fractures nor subluxation. Admitted to a monitored bed. Requested for PT OT eval and outreach and education social worker to assist with discharge planning ? 05/10/2024; awaiting insurance precertification prior to transfer to senior living facility ? 05/11/2024Patient seen adjusted patient pain regimen with some improvement in his symptoms. Awaiting insurance present occasion prior to transfer to senior living 05/12: Pre-CERT is pending. Bilateral leg swelling/edema with fluid seepage. Venous ulcer. 05/13: Improvement in the leg swelling. Continue diuretic. Jaden wrap bandage and dressing 05/14: Patient was refused for SNF. Peer to peer called. Information regarding previous baseline, physical therapy assessment and recommendation was given to insurance doctor. She will make determination after complete review the chart and will let us know. Venous ulcer on both leg on course of great saphenous vein. 2. Chronic A-fib ? Rate controlled on systemic anticoagulation with Xarelto 05/14 heart rate is controlled. 3. 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 Patient was left with some residual right-sided hemiparesis 4. Coronary artery disease ? With previous PCI patient is on guideline directed medical 5. History of previous DVT ? Patient is on rivaroxaban 6. Dyslipidemia ?Patient is on statin therapy, continued at home dose 7. Hypertension ? Blood pressure controlled, home medications continued with dose adjustment as needed 8. Peripheral neuropathy ? Patient is on gabapentin 9. Obstructive sleep apnea ? Consistent use of PAP therapy encouraged 10. Class II obesity with BMI of 41.5 complicating care weight loss advised 11. DVT prophylaxis ? On rivaroxaban Allergies/Procedures Done in Hospital Allergies diphenhydramine (From Benadryl) Adverse Reaction (Mild, Verified 03/28/24 10:52) Abd cramps/diarrhea ibuprofen (From Motrin) Adverse Reaction (Verified 03/28/24 10:52) Nausea Type of Care/Length of Stay Estimated LOS: Convalescent Care Less Than 30 days Type of Care Needed: Skilled Rehab Potential: Good Prognosis: Good Additional Orders/Day of Discharge Day of Discharge: 05/14/24 Dietary and Speech Recommendations Dietitian Recommendations/Changes: Continue cardiac diet; consider fluid restriction as needed. ONS not indicated. Discharge Plan Admission Admit Date/Time: 05/08/24 23:22 Primary Reason for Your Visit: Generalized weakness with fall. Bilateral lower extremity lymphedema Attending Provider: Brian Durham Primary Care Provider: Shanda Jensen NP Consulting Providers: Larry Howard; Bari Carpio Discharge Orders/Prescriptions Prescriptions: New oxycodone 5 mg Tablet 5 mg PO Q4H PRN PRN (Reason: Pain Score 4-10) 3 Days Qty: 7 0RF Continued Xarelto 20 mg Tablet 20 mg PO DINNER Qty: 0 0RF cholecalciferol (vitamin D3) 125 mcg (5,000 unit) Capsule 125 mcg PO DAILY Qty: 0 0RF Rx Instructions: Available [id number]. potassium chloride [Klor-Con M20] 20 mEq Tablet,Er Particles/Crystals 40 meq PO BIDCM Qty: 0 0RF atorvastatin 40 mg Tablet 40 mg PO QHS Qty: 0 0RF nystatin [Nyamyc] 100,000 unit/gram Powder 1 applic topical BID Qty: 0 0RF Protocol: *Topical Application Instructions APPLICATION INSTRUCTIONS: groin/abdominal folds menthol-zinc oxide [Calmoseptine] 0.44-20.6 % Ointment 1 applic topical BID Qty: 0 0RF Protocol: *Topical Application Instructions APPLICATION INSTRUCTIONS: buttocks acetaminophen 500 mg Tablet 1,000 mg PO Q8 PRN (Reason: pain) gabapentin 400 mg capsule 400 mg PO TID furosemide 40 mg tablet 40 mg PO BID ketoconazole 2 % cream 1 applic topical DAILY tramadol 50 mg tablet 50 mg PO BID PRN PRN (Reason: pain) Culturelle 10 billion cell capsule 1 cap PO BID Changed losartan 100 mg Tablet 50 mg PO DAILY 30 Days Qty: 0 0RF Discontinued penicillin V potassium 250 mg tablet 250 mg PO BID oxycodone 5 mg capsule 5 mg PO Q4H PRN (Reason: pain) Patient Comments: son said he is now taking tramadol Referrals / Follow Up: Shanda Jensen FIRE EQUIPMENT INSPECTOR HELPER, FIRE EQUIPMENT INSPECTOR HELPER-C [Primary Care Provider] - Disposition Disposition (needs filled in before D/C Order can be placed[facility]
--- NOTE | 2024-05-14 16:04 | CASEMGMT ---
Patient was approved. SW notified physician. SW also called patient's son letting him know. SW also let him know patient will go today. SW notified patient. SW told patient that his transport to [facility] will not be covered by insurance. Patient was not happy, but SW told him that because he is able to sit up in a chair cot would not be covered by insurance. Plan: d/c to [facility] under skilled level of care on a PASRR. [facility] will transport via wheelchair van. Batsheva ANTUNEZ
--- NOTE | 2024-05-14 16:06 | DS.PCM_ITS ---
Providers Date of Admission: 05/08/24 Date of Discharge: 05/14/24 Primary Care Physician: Shanda Jensen, JAVIER Consultations 05/09/24 00:45 Consult: Onc/Wound/vessel crew member Routine Comment: Reason for Consult:: wound evaluation Reason For Visit: WEAKNESS WITH FALLS Diagnosis Discharge Diagnosis (1) Generalized weakness: Status: Acute Code(s): R53.1 - Weakness (2) Adult failure to thrive: Status: Acute Code(s): R62.7 - Adult failure to thrive (3) Unable to ambulate: Status: Acute Code(s): R26.2 - Difficulty in walking, not elsewhere classified Plan Patient is a 73-year-old gentleman with multiple comorbidities who presented to the emergency department following a fall and assessment of physical debility made admitted to a monitored bed for subsequent management 1. Physical deconditioning with multiple falls ? Imaging studies obtained on admission demonstrated no acute fractures nor subluxation. Admitted to a monitored bed. Requested for PT OT eval and child protective services social worker to assist with discharge planning ? 05/10/2024; awaiting insurance precertification prior to transfer to shelter facility ? 05/11/2024Patient seen adjusted patient pain regimen with some improvement in his symptoms. Awaiting insurance present occasion prior to transfer to shelter 05/12: Pre-CERT is pending. Bilateral leg swelling/edema with fluid seepage. Venous ulcer. 05/13: Improvement in the leg swelling. Continue diuretic. Jaden wrap bandage and dressing 05/14: Initially, the patient was refused for SNF. Peer to peer called. Information regarding previous baseline, physical therapy assessment and recommendation was given to insurance doctor. She will make determination after complete review the chart and will let us know. Venous ulcer on both leg on course of great saphenous vein. After [id number] review, patient was approved for SNF. Prescription for oxycodone given. OARRS report reviewed. No controlled substance prescription in last 30 days. Unintentional overdose risk score 19 below average. 2. Chronic A-fib ? Rate controlled on systemic anticoagulation with Xarelto 05/14 heart rate is controlled. 3. 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 Patient was left with some residual right-sided hemiparesis 4. Coronary artery disease ? With previous PCI patient is on guideline directed medical 5. History of previous DVT ? Patient is on rivaroxaban 6. Dyslipidemia ?Patient is on statin therapy, continued at home dose 7. Hypertension ? Blood pressure controlled, home medications continued with dose adjustment as needed 8. Peripheral neuropathy ? Patient is on gabapentin 9. Obstructive sleep apnea ? Consistent use of PAP therapy encouraged 10. Class II obesity with BMI of 41.5 complicating care weight loss advised 11. DVT prophylaxis ? On rivaroxaban Discharge medication reconciliation done. Discharge follow-up instructions completed. Discharge process discussed with the patient and all questions were answered to patient's satisfaction. Follow with PCP in 1 to 2 weeks Total time spent, exact 35 minutes on discharge meds reconciliation, examination, coordination of care with nurses and ancillary staff, review of imaging and blood test and discussion with the patient on follow-up instructions. Medications at Discharge Home Medications rivaroxaban 20 mg tablet (Xarelto) 20 mg PO DINNER BLOOD THINNER #0 tabs 12/28/21 atorvastatin 40 mg tablet 40 mg PO QHS choplesterol #0 tabs 09/07/23 menthol 0.44 %-zinc oxide 20.6 % topical ointment (Calmoseptine) 1 applic topical BID #0 grams 10/25/23 nystatin 100,000 unit/gram topical powder (Nyamyc) 1 applic topical BID #0 grams 10/25/23 acetaminophen 500 mg tablet 1,000 mg PO Q8 PRN pain 12/27/23 cholecalciferol (vitamin D3) 125 mcg (5,000 unit) capsule 125 mcg PO DAILY #0 caps 02/01/24 potassium chloride 20 mEq tablet,extended release(part/cryst) (Klor-Con M) 40 meq (2 x 20 mEq) PO BIDCM potassium #0 tabs 02/01/24 Lactobacillus rhamnosus GG 10 billion cell capsule (Culturelle) 1 cap PO BID 05/08/24 furosemide 40 mg tablet 40 mg PO BID 05/08/24 gabapentin 400 mg capsule 400 mg PO TID 05/08/24 ketoconazole 2 % topical cream 1 applic topical DAILY 05/08/24 tramadol 50 mg tablet 50 mg PO BID PRN PRN pain 05/08/24 losartan 100 mg tablet 50 mg (1/2 x 100 mg) PO DAILY blood pressure 30 days #0 tabs 05/14/24 oxycodone 5 mg tablet 5 mg PO Q4H PRN PRN Pain Score 4-10 3 days #7 tabs 05/14/24 Physical Exam Narrative Please see progress note on the same date Weight / BMI Weight Weight: 256 lb 13.416 oz Body Mass Index (BMI) 41.4 ABG / Lab / Microbiology Data 05/12/24 05:55 05/14/24 05:46 Laboratory: Laboratory Results - last 24 hr 05/14/24 05:46: Sodium 138, Potassium 3.5, Chloride 110 H, Carbon Dioxide 26.0, Anion Gap 3 L, BUN 12, Creatinine 0.92, Estim Creat Clear Calc 84.57, Est GFR (MDRD) Af Amer 104, Est GFR (MDRD) Non-Af 86, BUN/Creatinine Ratio 13.1, Glucose 100, Calcium 8.7 Microbiology: Microbiology 05/09/24 00:49 Wound - Leg Gram Stain - Final 05/09/24 00:49 Wound - Leg Wound Culture - Final Pseudomonas aeruginosa Streptococcus dysgalactiae equ 05/08/24 21:59 Mucosa - Nose SARS-CoV-2, Influenza & RSV (PCR) - Final D/C Instructions DC O2, CPAP, BIPAP Needs Home O2 Discharge instructions: No Meaningful Use Info Meaningful Use Meaningful Use Diagnoses (Choose all that apply): None applicable Ischemic Stroke Statin Dosing Therapy Reference: STATIN DOSE THERAPY REFERENCE: * Patients > 75 years receive moderate or high dose statin therapy. * Patients 75 years or YOUNGER should receive HIGH intensity statin dose unless contraindicated. You will be required to document reason for non-treatment if statin daily dose does not meet guidelines. HIGH DOSE STATIN THERAPY DAILY Atorvastatin > than or = to 40 mg Rosuvastatin > than or = to 20 mg Amlodipine + Atorvastatin > than or = to 2.5/40 mg Ezetimibe + Simvastatin 10/80 mg Simvastatin 80mg Discharge Plan Admission Admit Date/Time: 05/08/24 23:22 Primary Reason for Your Visit: Generalized weakness with fall. Bilateral lower extremity lymphedema Attending Provider: Brian Durham Primary Care Provider: Shanda Jensen NP Consulting Providers: Larry Howard; Bari Carpio Discharge Orders/Prescriptions Prescriptions: New oxycodone 5 mg Tablet 5 mg PO Q4H PRN PRN (Reason: Pain Score 4-10) 3 Days Qty: 7 0RF Continued Xarelto 20 mg Tablet 20 mg PO DINNER Qty: 0 0RF cholecalciferol (vitamin D3) 125 mcg (5,000 unit) Capsule 125 mcg PO DAILY Qty: 0 0RF Rx Instructions: Available [id number]. potassium chloride [Klor-Con M20] 20 mEq Tablet,Er Particles/Crystals 40 meq PO BIDCM Qty: 0 0RF atorvastatin 40 mg Tablet 40 mg PO QHS Qty: 0 0RF nystatin [Nyamyc] 100,000 unit/gram Powder 1 applic topical BID Qty: 0 0RF Protocol: *Topical Application Instructions APPLICATION INSTRUCTIONS: groin/abdominal folds menthol-zinc oxide [Calmoseptine] 0.44-20.6 % Ointment 1 applic topical BID Qty: 0 0RF Protocol: *Topical Application Instructions APPLICATION INSTRUCTIONS: buttocks acetaminophen 500 mg Tablet 1,000 mg PO Q8 PRN (Reason: pain) gabapentin 400 mg capsule 400 mg PO TID furosemide 40 mg tablet 40 mg PO BID ketoconazole 2 % cream 1 applic topical DAILY tramadol 50 mg tablet 50 mg PO BID PRN PRN (Reason: pain) Culturelle 10 billion cell capsule 1 cap PO BID Changed losartan 100 mg Tablet 50 mg PO DAILY 30 Days Qty: 0 0RF Discontinued penicillin V potassium 250 mg tablet 250 mg PO BID oxycodone 5 mg capsule 5 mg PO Q4H PRN (Reason: pain) Patient Comments: son said he is now taking tramadol Referrals / Follow Up: Shanda Jensen NP, IRON AND STEEL WORK SUPERVISOR-C [Primary Care Provider] - Disposition Disposition (needs filled in before D/C Order can be placed): [facility] Charges/Coding Visit Charges Inpatient E&M: 34943 Disch Hosp >30min
--- NOTE | 2024-05-14 16:25 | CASEMGMT ---
[facility] has obtained auth to admit. Mary Salcido DC Planning Asst.
--- NOTE | 2024-05-14 16:58 | CASEMGMT ---
Transport was arranged for patient through [facility]. Patient asked to talk with JESSIE and he told SW his insurance pays for trips. SW tried to find this information on insurance website, but could not find anything. JESSIE told patient and he asked SW to call his son. JESSIE called patient's son and obtained the phone number for transport ([phone]) SW called this number and the individual asked if patient could go by car and SW said patient has to go by wheelchair and he needs a wheelchair provided. The individual escalated this case to someone else. This person's name was Marie. Marie said that they cannot do same day wheelchair transports even if it is a discharge from the hospital. SW notified patient. [facility] will transport patient via [facility] van. Batsheva ANTUNEZ
--- NOTE | 2024-05-14 20:07 | CASEMGMT ---
Social Work SW was contacted via U nurse due to patient being upset over having to utilize [facility] because patient would receive a bill. SW contacted patients son who stated he had spoke to YANETH Herman, regarding patient having a transportation service that could be used for free. JESSIE explained to son that Batsheva had contacted the service that son had provided and was told they do not provide same day transport. Son stated they had used same day services with patient numerous times. JESSIE further explained the Batsheva has asked for the case to be escalated to a art therapy certified supervisor who also stated they do not provide same day service. Patients son stated who ever answered the phone at their transport service did not know what they were doing, that the service can be used same day as long as the call is placed by the hospital. JESSIE explained to son that at this time, all offices would be closed and we could not attempt to contact for service. Son stated they would use [facility], and that he would call and speak to his father and let him know it was okay to use [facility] this evening. U nurse called back and updated that son was reaching out to patient. Vivian Celis, GARDEN EQUIPMENT MECHANIC, FLAKE OR SHRED ROLL OPERATOR
--- NOTE | 2024-05-14 20:50 | NURSING ---
[facility] left unit w/ pt.
--- NOTE | 2024-05-14 20:58 | NURSING ---
Patient left facility with belongings to go to [facility]. Called [facility] to inform pt is still coming tonight. [facility] staff state they do not know anything about the patient coming and does not want to accept him tonight. Informed that the patient is already on his way. Staff states to call the ambulance and tell them to turn around. Notified casemanagement to call facility and determine next course of action. Informed nursing nuclear powerplant supervisor Layla of circumstances.
--- NOTE | 2024-05-14 21:14 | NURSING ---
attempted to call [facility] for report but nobody is answering call and line just kept ringing.
--- NOTE | 2024-05-14 21:21 | CASEMGMT ---
Social Work SW received call from Caleb, U nurse, stating that [facility] called hospital and stated they did not know about admission and wanted hospital to call [facility] and return patient to [facility]. SW attempted to call [facility], first call no one answered, second call a person answered and then hung up. SW called 5 more times, letting phone ring multiple times each call. JESSIE contacted communications electrician supervisor, Renetta, to determine next step. Renetta contacted facility via [facility] explaining this was an approved admission and the facility should be accepting of patient. Admission director answered in Care port agreeing with admission. Caleb called back and updated on Gary response that they would be accepting patient this evening. Vivian Celis, WEAPONS ELECTRICAL ENGINEERING OFFICER, GLOVE WRAPPER
--- NOTE | 2024-05-14 21:25 | NURSING ---
this RN attempted to get a hold of someone at [facility] to give report, but nobody is answering phone.
--- NOTE | 2024-05-14 22:49 | NURSING ---
This RN called [facility] for report, nobody answered.
== END 2024-05-14 20:55 | disposition skilled nursing facility (03) ==
LOC: ED 23:21 → PCU 23:36
PROVIDERS: Internal Medicine; Admitting Provider Hospitalist; Emergency Provider Emergency Medicine; PCP Nurse Practitioner Family; Visit Provider Internal Medicine
DX: R53.1 Weakness (principal); L97.919 Non-pressure chronic ulcer of unspecified part of right lower leg with unspecified severity; L97.929 Non-pressure chronic ulcer of unspecified part of left lower leg with unspecified severity; I69.351 Hemiplegia and hemiparesis following cerebral infarction affecting right dominant side; I11.0 Hypertensive heart disease with heart failure; I50.9 Heart failure, unspecified; I48.0 Paroxysmal atrial fibrillation; Z68.41 Body mass index [BMI] 40.0-44.9, adult; Z87.891 Personal history of nicotine dependence; G89.29 Other chronic pain; G62.9 Polyneuropathy, unspecified; M54.2 Cervicalgia; Z86.718 Personal history of other venous thrombosis and embolism; R62.7 Adult failure to thrive; E78.5 Hyperlipidemia, unspecified; R53.81 Other malaise; I25.10 Atherosclerotic heart disease of native coronary artery without angina pectoris; R26.2 Difficulty in walking, not elsewhere classified; I87.2 Venous insufficiency (chronic) (peripheral); M54.50 Low back pain, unspecified; E66.813 Obesity, class 3; R29.6 Repeated falls; Z79.899 Other long term (current) drug therapy; G47.33 Obstructive sleep apnea (adult) (pediatric); K21.9 Gastro-esophageal reflux disease without esophagitis; Z79.01 Long term (current) use of anticoagulants; E86.0 Dehydration; R79.89 Other specified abnormal findings of blood chemistry

== ENCOUNTER 2024-07-22 09:55 | Inpatient (IN) | payer MEDICARE, SELFPAY ==
[2024-07-22] VITALS (10 sets, daily range): BP systolic 101–139; BP diastolic 59–94; PULSE 86–111; RESP 17–24; TEMP 36.4–37.2; O2SAT 94–98; BMI 42.6; BMI 41.8
--- NOTE | 2024-07-22 10:17 | EKG12_ITS ---
Test Reason : CELLULITIS Blood Pressure : */* mmHG Vent. Rate : 103 BPM Atrial Rate : 103 BPM P-R Int : 170 ms QRS Dur : 102 ms QT Int : 366 ms P-R-T Axes : * -48 139 degrees QTcB Int : 479 ms Sinus tachycardia with Premature supraventricular complexes and with occasional Premature ventricular complexes Left axis deviation Anteroseptal infarct , age undetermined ST & T wave abnormality, consider inferolateral ischemia Abnormal ECG Confirmed by DAVE GLASS, DEZ ([id number]), offline editor GINGER YAN ([id number]) on 07/23/2024 8:19:06 AM Referred By: Confirmed By: DEZ ACOSTA MD
--- NOTE | 2024-07-22 10:19 | EX.ED.DYSGE1 ---
HPI History of Present Illness Chief Complaint: Cellulitis Informant: patient and other (Home health aide) Narrative Narrative: 73-year-old male presenting to the emergency room with leg pain swelling and wounds. Patient lives at home. He was admitted in April for failure to thrive. He has a history of chronic venous insufficiency/lymphedema. There is a home health aide that comes with him who states that he had been having home health nurses come in but they are no longer coming into care for him. He has been seen in infectious disease doctor in [place] who was treating him with cefdinir and minocycline. She states that when she came in today he seemed in a good deal of discomfort legs looked more swollen and they are now weeping and she states that chunks of skin are coming off. No reported fevers. Patient notes swelling of his lower abdominal wall. He notes that he is on Xarelto and has been taking it. He denies missed doses. He reportedly takes Lasix 40 mg twice a day but is unknown if that has changed over the past couple months since his last discharge. He does not see the wound clinic. 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 Right rotator cuff tear Right hemiplegia Congestive heart failure (CHF) Ambulatory dysfunction Tinea cruris Chronic venous stasis dermatitis Lymphedema Chronic anticoagulation Bilateral cellulitis of lower leg Candidiasis of skin Adult failure to thrive Hemiplegia affecting right dominant side Anticoagulant long-term use Pneumonia Cellulitis Atrial fibrillation CVA (cerebral vascular accident) Rotator cuff tear arthropathy of right shoulder CPAP (continuous positive airway pressure) dependence Sleep apnea FTT (failure to thrive) in adult Lymphedema of both lower extremities Chronic venous stasis dermatitis of both lower extremities Low back pain Hypertension Atrial fibrillation Debility Pain of left great toe Pain in right lower leg Hyperglycemia Leg pain Toe ulcer Lymphedema Non-pressure chronic ulcer of other part of right foot with necrosis of muscle Cellulitis of right lower limb Deep venous thrombosis 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 layer exposed Venous insufficiency Skin ulcer of left great toe with fat layer exposed Dyspnea on minimal exertion Anomalous origin of coronary artery Obesity New onset atrial fibrillation (03/24/20) Essential (primary) hypertension Pain of left lower extremity due to injury Former smoker Traumatic hematoma of left lower leg Arthritis Benign neoplasm of middle ear, nasal cavity and accessory sinuses ANDREE (obstructive sleep apnea) Cervical disc disease BPH (benign prostatic hyperplasia) GERD (gastroesophageal reflux disease) Hyperlipidemia Atherosclerotic heart disease of eagle coronary artery without angina pectoris Cardiac murmur, unspecified Home Medications ?Medication ?Instructions ?Recorded ?Last Taken ?Type atorvastatin 40 mg tablet 40 mg PO QHS choplesterol #0 tabs 09/07/23 07/21/24 Rx nystatin 100,000 unit/gram topical 1 applic topical BID #0 grams 10/25/23 01/25/24 Rx powder (Nyamyc) acetaminophen 500 mg tablet 1,000 mg PO Q8 PRN pain 12/27/23 01/25/24 17:00 History 1,000 mg Lactobacillus rhamnosus GG 10 1 cap PO BID 05/08/24 Unknown History billion cell capsule (Culturelle) furosemide 40 mg tablet 40 mg PO BID 05/08/24 07/22/24 History tramadol 50 mg tablet 50 mg PO Q8H PRN pain 05/08/24 07/22/24 History cefdinir 300 mg capsule 300 mg PO BID 07/22/24 07/22/24 History cholecalciferol (vitamin D3) 50 50 mcg PO DAILY 07/22/24 07/21/24 History mcg (2,000 unit) tablet gabapentin 300 mg capsule 300 mg PO TID 07/22/24 07/22/24 History losartan 50 mg tablet 50 mg PO DAILY 07/22/24 07/21/24 History menthol 0.44 %-zinc oxide 20.6 % 1 applic topical BID PRN skin 07/22/24 Unknown History topical ointment (Calmoseptine) irritation minocycline 100 mg capsule 100 mg PO BID 07/22/24 07/22/24 History potassium chloride 20 mEq 20 meq PO TID potassium 07/22/24 07/22/24 History tablet,extended release(part/cryst) (Klor-Con M) rivaroxaban 20 mg tablet (Xarelto) 20 mg PO QHS BLOOD THINNER 07/22/24 07/21/24 History Allergy/AdvReac Type Severity Reaction Status Date / Time diphenhydramine (From AdvReac Mild Abd Verified 07/22/24 10:02 Benadryl) cramps/diarrhea ibuprofen (From Motrin) AdvReac Nausea Verified 07/22/24 10:02 Family History Mother CAD (coronary artery disease) Hypertension History of cardiac radiofrequency ablation Sister Hypertension Other Arthritis Surgical History History of coronary artery stent placement H/O cervical spine surgery History of herniorrhaphy History of carpal tunnel release History of transurethral resection of prostate History of coronary artery stent placement (11/29/10) History of bursectomy History of removal of cyst History of carpal tunnel surgery History of fusion of cervical spine Social History household members: other details: Older son Naeem. Smoking Status: Former smoker alcohol intake: never substance use type: does not use ROS ROS ED Constitutional Constitutional ED: Denies chills, fever(s) or weight loss Eyes Eyes: Denies change in vision or diplopia ENT ENT ED: Denies ear pain, rhinorrhea or sore throat Cardiovascular Cardiovascular: Denies chest pain, orthopnea, palpitations or racing heartbeat Respiratory/Chest Respiratory/Chest: Reports dyspnea; Denies cough or orthopnea Gastrointestinal Gastrointestinal: Denies abdominal pain, diarrhea, nausea or vomiting Genitourinary Genitourinary ED: Denies dysuria, hematuria or urinary frequency Musculoskeletal Musculoskeletal: Reports other Details: Painful legs ; Denies arthralgias or myalgias Integumentary Reports other Details: Chronic venous stasis changes lower legs weeping ; Denies abscess or rash Neurologic Neurologic: Denies headache(s) or weakness Psychiatric Psychiatric: Denies anxiety, depression, suicidal ideation or suicidal thoughts Endocrine Endocrinology: Denies polydipsia, polyphagia or polyuria Allergic/Immunologic Allergic/Immunologic ED: Denies mouth swelling, tongue swelling or urticaria EXAM Physical Exam Const Vital Signs: 07/22/24 09:57 07/22/24 10:01 07/22/24 11:00 Temperature 97.9 F 97.9 F Temperature Source Oral Oral Pulse Rate 96 86 95 Respiratory Rate 24 H 24 H 19 H Blood Pressure 123/94 H 123/94 H 103/61 Blood Pressure Mean 103 103 75 Pulse Ox 97 95 97 Oxygen Delivery Method Room Air Room Air Room Air 07/22/24 11:01 07/22/24 12:00 Temperature 97.6 F L 98.0 F Temperature Source Oral Oral Pulse Rate 95 109 H Respiratory Rate 19 H 17 Blood Pressure 103/61 139/87 H Blood Pressure Mean 75 104 Pulse Ox 97 98 Oxygen Delivery Method Room Air Room Air Positive well nourished, well developed and obese General Appearance ED: well developed Nutritional Appearance: obese HEENT Reports normocephalic, head/scalp atraumatic and moist mucous membranes Eyes PERRL and EOMs intact bilaterally Neck no lymphadenopathy, supple and no JVD Resp normal respiratory effort and clear to auscultation bilaterally Cardio regular rate, regular rhythm and no murmurs GI normal to inspection, nondistended, normoactive bowel sounds and non-tender GI Narrative: There is edematous changes of the very low suprapubic abdominal wall Palpation: soft Back/Spine no CVA tenderness Extremity Extremity Narrative: Patient has massive lower extremity swelling from the level about the tibial tuberosity inferiorly. There are chronic venous stasis skin changes. There are sloughing weeping wounds over the lateral mid legs. I do not appreciate lymphangitic streaking. I do not appreciate significant erythema of the thighs. Distally he has dark red to purple hues of the skin involving the feet. Neuro oriented x3 and CN's II-XII intact bilaterally Sensorium / Orientation: alert Motor Exam: strength 5/5 throughout Psych mental status grossly normal Mood & Affect: Negative for depressed or tearful Skin Skin Narrative: See extremity exam MDM MDM MDM Narrative Medical decision making narrative: Differential diagnosis includes but not limited to cellulitis lymphedema adult failure to thrive congestive heart failure lateral effusion pulmonary edema acute kidney injury electrolyte abnormality arterial and venous thrombosis Patient is anticoagulated.-My independent interpretation of his chest x-ray is no acute process. His white count is 13.4 with a hemoglobin 14.9. INR 1.5 PTT 42.3. Creatinine 1.34 anion gap of 11 CO2 22.5. Normal LFTs normal magnesium. BNP is 187. Patient was started on Ancef as well as IV Lasix. From what I am weighing on the bed and what he self-reports at home, he is up about 15 pounds. History & Record Review Discussion w/independent historian: Patient Lab Data Attestation: I reviewed the patient's lab results. Labs: Laboratory Results - last 24 hr 07/22/24 07/22/24 10:25 11:03 WBC 13.4 H RBC 4.85 Hgb 14.9 Hct 44.5 MCV 91.8 MCH 30.7 MCHC 33.5 RDW Std Deviation 50.3 H RDW Coeff of Naz 14.8 H Plt Count 253 MPV 10.2 Immature Gran % (Auto) 0.400 Neut % (Auto) 75.7 H Lymph % (Auto) 11.4 L [place] % (Auto) 8.6 Eos % (Auto) 3.7 Baso % (Auto) 0.2 Absolute Neuts (auto) 10.1 H Absolute Lymphs (auto) 1.53 Nucleated RBC % 0 PT Cancelled 18.7 H INR Cancelled 1.5 APTT Cancelled 42.3 H Sodium 135 Potassium 4.7 Chloride 101 Carbon Dioxide 22.5 Anion Gap 11 BUN 22 H Creatinine 1.34 H Estim Creat Clear Calc 58.97 Est GFR (MDRD) Non-Af 56 L BUN/Creatinine Ratio 16.6 Glucose 102 H Lactic Acid 1.5 Calcium 7.9 Magnesium 1.9 Total Bilirubin 0.61 Direct Bilirubin < 0.08 AST 42 H ALT 29 Alkaline Phosphatase 164 H NT pro BNP II 187 Total Protein 7.5 Albumin 3.3 L Globulin 4.2 Radiography Diagnostic Testing: Clinical Impression(s) from Imaging Studies Chest X-Ray 07/22/24 10:54 IMPRESSION: No acute cardiopulmonary process. Reading Location: [facility] EKG Initial EKG: Attestation: I personally reviewed and interpreted this EKG as follows: Comments: Sinus tachycardia ventricular rate of 103 bpm. Very wavy baseline due to patient artifact. Management Discussion w/another healthcare provider: Hospitalist Discharge Plan Dx/Rx/DC Orders Clinical Impression: Lymphedema, Deterioration in ability to walk, Adult failure to thrive, Cellulitis, Varicose veins with ulcer and inflammation, Atrial fibrillation Disposition Disposition: Acute Care Hospital [facility] Discharge Date/Time: 07/22/24 13:09
[2024-07-22 10:36] LABS: Absolute Lymphocyte Count 1.53 X10^3/uL (0.83-4.51); Absolute Neutrophil Count 10.1 X10^3/uL (2.0-7.7); Basophil# 0.03 X10^3/uL; Basophil% 0.2 % (0-1); Eosinophils% 3.7 % (0-5); Hematocrit 44.5 % (40-54); Hemoglobin 14.9 g/dL (13.0-16.5); Lymphocyte # 1.53 X10^3/ul (0.83-4.51); Lymphocyte % 11.4 % (19-41); Mean Corp Hgb Conc 33.5 g/dL (32-36); Mean Corpuscular Hgb 30.7 pg (27.0-32.0); Mean Corpuscular Volume 91.8 fL (80-94); Mean Platelet Vol. 10.2 fl (6.2-12.0); Monocyte# 1.15 X10^3/uL; Monocyte% 8.6 % (0-10); NRBC Flagged by Analyzer 0 % (0-5); Neutrophil # 10.12 X10^3/uL (2.7-7.7); Neutrophil % 75.7 % (47-70); Platelet Count 253 K/mm3 (150-450); RBC Distribution Width CV 14.8 % (11.6-14.6); RBC Distribution Width SD 50.3 fl (35.1-43.9); Red Blood Count 4.85 M/mm3 (4.6-6.2); White Blood Count 13.4 K/mm3 (4.4-11.0)
--- NOTE | 2024-07-22 10:54 | RAD_ITS ---
EXAM: XR Chest, 1 View CLINICAL INDICATION: CHF TECHNIQUE: Frontal view of the chest. COMPARISON: No relevant prior studies available. FINDINGS: LUNGS AND PLEURAL SPACES: Unremarkable. No consolidation. No pneumothorax. HEART: Unremarkable. No cardiomegaly. MEDIASTINUM: Unremarkable. Normal mediastinal contour. BONES/JOINTS: Unremarkable. No acute fracture. RAD/Chest 1 View (Portable) IMPRESSION: No acute cardiopulmonary process. Reading Location: [facility]
[2024-07-22] MEDS: oxyCODONE 5 MG Tablet 10 MG PO (11:16)
[2024-07-22 11:26] LABS: Lactic Acid 1.5 mmol/L (0.0-2.0)
[2024-07-22 11:28] LABS: Magnesium 1.9 mg/dL (1.5-2.2); Pro- Brain NATRIURETIC PEPTIDE 187 pg/mL (<=900)
[2024-07-22 11:29] LABS: International Normalized Ratio 1.5; Prothrombin Time (Protime)PT. 18.7 SECONDS (11.7-14.9)
[2024-07-22 11:29] LABS: AST(SGOT) 42 U/L (<=37); Alanine Aminotransfer ALT/SGPT 29 U/L (<=46); Albumin, Serum 3.3 g/dL (3.4-4.8); Alkaline Phosphatase 164 U/L (40-129); Anion Gap 11 (5-15); BUN 22 mg/dL (4-19); BUN/Creat Ratio 16.6 RATIO (10-20); Bilirubin, Direct < 0.08 mg/dL (0.00-0.30); Calcium,Total 7.9 mg/dL (7.6-11.0); Carbon Dioxide 22.5 mmol/L (21.0-32.0); Chloride 101 mmol/L (98-108); Creatinine, Serum 1.34 mg/dL (0.70-1.20); EST Glomerular Filtration Rate 56 (>60); Estimated Creatinine Clearance 58.97 ml/min (50-250); Globulin 4.2 g/dL (2.2-4.2); Glucose 102 mg/dL (70-99); Potassium 4.7 mmol/L (3.3-5.1); Protein, Total 7.5 g/dL (5.9-8.4); Sodium Level 135 mmol/L (133-145); Total Bilirubin 0.61 mg/dL (0.00-1.30)
[2024-07-22 11:30] LABS: Partial Thromboplast Time 42.3 Seconds (24.1-36.2)
[2024-07-22] MEDS: Furosemide 100 MG/10 ML Vial 80 MG IV (12:05)
[2024-07-22] MEDS: Cefazolin 2 GM in Syringe IV (12:34)
[2024-07-22 12:48] LABS: Bacteria 0 SEEN /hpf (None Seen); Mucous, Urine 0 SEEN /hpf (<or=2+); Squamous Epithelial Cells - UA 0 SEEN /hpf (0-5); White Blood Cells 0 SEEN /hpf (0-5)
--- NOTE | 2024-07-22 12:48 | ED.RN ---
THIS NURSE PLACED AN INDWELLING LICONA IN PT D/T URINARY RETENTION, PT GIVEN LASIX AND UNABLE TO VOID. PT NOT AMBULATORY D/T BILATERAL LE SWELLING AND STASIS ULCERS.
[2024-07-22 12:50] LABS: Color, Urine Straw (Yellow); Glucose, Dipstick Normal (Normal); Ketone-Dipstick Negative (Negative); Leukocyte Esterase-Dipstick Negative /ul (Negative); Nitrite-Dipstick Negative (Negative); Occult Blood-Urine Negative /ul (Negative); Protein-Dipstick Negative (Negative); Specific Gravity, Urine 1.015 (1.002-1.030); Urine Bilirubin Dipstick Negative (Negative); Urine Clarity Clear (Clear); Urine Urobilinogen Normal (Normal)
[2024-07-22 12:59] LABS: Red Blood Cells-Urine 0 SEEN /hpf (0-5)
--- NOTE | 2024-07-22 13:13 | CASEMGMT ---
Care Management Face to Face with patient for initial transition planning/care coordination assessment in the ED. This parts data writer introduced self and role at [facility]. Patient alert and oriented, though patient in so much pain. Patient's sonNaeem, bedside who helped with answering questions. Care providers, pharmacy, and demographics verified. 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 Patient has ramp access to outside. Patient reportedly has a nursing home assistant through the [place] who comes every week day and stays all day. Naeem reports helping patient get to the wheelchair where patient stays all day and then Naeem helps get patient back to bed at the end of the day; Naeem reports that patient's nursing home assistant helps with all other ADLs/IADLs. Transportation: patient's sonNaeem, drives patient DME: medical alert system, hospital bed, shower chair, BSC, cane, FWW, electric wheelchair, cielo lift, ramp, handrails HHC: previous with [employer] (SN, PT/OT, SW); Naeem reports this company discharged patient just over a week ago due to patient making crude comments SNF/Rehab: history of the [place], [facility], [facility], and [facility] (patient reports only being there for about a week after the last hospitalization in mid-April) Community [facility] Patient goals: patient's wishes unknown due to level of pain. In talking privately with patient's sonNaeem, patient reportedly verbalized being so sick and feeling different about this current pain. Naeem stated patient expressed earlier that patient thinks this may be it. Naeem was unable to express whether or not long-term care may be necessary. Disposition Plan: admission to acute; RN CM/SW to follow for discharge planning needs that may arise. Prachi Vasquez, SPEECH LANGUAGE PATHOLOGIST PRN, LINE MAINTENANCE TECHNICIAN
[2024-07-22] MEDS: traMADol 50 MG Tablet PO (14:28)
[2024-07-22] MEDS: 0.9% Normal Saline (100mL Bag) 100 ML 15 ML IV (14:28)
[2024-07-22] MEDS: Morphine 2 MG/ML Syringe IV (14:29)
[2024-07-22] MEDS: Piperacil/Tazobactam 3.375 GM in 0.9% Normal Saline (50mL MB+) 50 ML IV ×2 (14:43→21:02)
--- NOTE | 2024-07-22 15:01 | PCM.HP.STD ---
HPI - General General Date of Admission: 07/22/24 HPI Narrative TURNER YAN, is a 73 M who presents to the hospital for increasing lower extremity edema and pain in both legs. He is on Xarelto so he does not have a DVT when he takes his medications consistently. He does have chronic venous insufficiency with lipodermatosclerosis of and now he has weeping wounds that appear to be potentially infected. He does have an elevated white count in the ER though it is difficult to discern if he has cellulitis in either leg given his chronic skin changes versus an isolated wound infection, the distinction is not that significant. He does have a home health aide who was able to convince him to present to the ER today as he had been complaining of pain as well as nausea for the last couple of days. [facility] Medical History Unable to ambulate Edema Generalized weakness Morbid obesity with BMI of 40.0-44.9, adult History of CVA (cerebrovascular accident) Lipodermatosclerosis of both lower extremities Venous insufficiency (chronic) (peripheral) Atrial fibrillation Bilateral leg edema History of stroke History of CAD (coronary artery disease) History of atrial fibrillation Neuropathic pain Obesity Essential (primary) hypertension Hemiplegia of right dominant side as late effect of cerebral infarction Right rotator cuff tear Right hemiplegia Congestive heart failure (CHF) Ambulatory dysfunction Tinea cruris Chronic venous stasis dermatitis Lymphedema Chronic anticoagulation Bilateral cellulitis of lower leg Candidiasis of skin Adult failure to thrive Hemiplegia affecting right dominant side Anticoagulant long-term use Pneumonia Cellulitis Atrial fibrillation CVA (cerebral vascular accident) Rotator cuff tear arthropathy of right shoulder CPAP (continuous positive airway pressure) dependence Sleep apnea FTT (failure to thrive) in adult Lymphedema of both lower extremities Chronic venous stasis dermatitis of both lower extremities Low back pain Hypertension Atrial fibrillation Debility Pain of left great toe Pain in right lower leg Hyperglycemia Leg pain Toe ulcer Lymphedema Non-pressure chronic ulcer of other part of right foot with necrosis of muscle Cellulitis of right lower limb Deep venous thrombosis 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 layer exposed Venous insufficiency Skin ulcer of left great toe with fat layer exposed Dyspnea on minimal exertion Anomalous origin of coronary artery Obesity New onset atrial fibrillation (03/24/20) Essential (primary) hypertension Pain of left lower extremity due to injury Former smoker Traumatic hematoma of left lower leg Arthritis Benign neoplasm of middle ear, nasal cavity and accessory sinuses ANDREE (obstructive sleep apnea) Cervical disc disease BPH (benign prostatic hyperplasia) GERD (gastroesophageal reflux disease) Hyperlipidemia Atherosclerotic heart disease of [place] coronary artery without angina pectoris Cardiac murmur, unspecified Home Medications ?Medication ?Instructions ?Recorded ?Last Taken ?Type atorvastatin 40 mg tablet 40 mg PO QHS choplesterol #0 tabs 09/07/23 07/21/24 Rx nystatin 100,000 unit/gram topical 1 applic topical BID #0 grams 10/25/23 01/25/24 Rx powder (Nyamyc) acetaminophen 500 mg tablet 1,000 mg PO Q8 PRN pain 12/27/23 01/25/24 17:00 History 1,000 mg Lactobacillus rhamnosus GG 10 1 cap PO BID 05/08/24 Unknown History billion cell capsule (Culturelle) furosemide 40 mg tablet 40 mg PO BID 05/08/24 07/22/24 History tramadol 50 mg tablet 50 mg PO Q8H PRN pain 05/08/24 07/22/24 History cefdinir 300 mg capsule 300 mg PO BID 07/22/24 07/22/24 History cholecalciferol (vitamin D3) 50 50 mcg PO DAILY 07/22/24 07/21/24 History mcg (2,000 unit) tablet gabapentin 300 mg capsule 300 mg PO TID 07/22/24 07/22/24 History losartan 50 mg tablet 50 mg PO DAILY 07/22/24 07/21/24 History menthol 0.44 %-zinc oxide 20.6 % 1 applic topical BID PRN skin 07/22/24 Unknown History topical ointment (Calmoseptine) irritation minocycline 100 mg capsule 100 mg PO BID 07/22/24 07/22/24 History potassium chloride 20 mEq 20 meq PO TID potassium 07/22/24 07/22/24 History tablet,extended release(part/cryst) (Klor-Con M) rivaroxaban 20 mg tablet (Xarelto) 20 mg PO QHS BLOOD THINNER 07/22/24 07/21/24 History Allergy/AdvReac Type Severity Reaction Status Date / Time diphenhydramine (From AdvReac Mild Abd Verified 07/22/24 10:02 Benadryl) cramps/diarrhea ibuprofen (From Motrin) AdvReac Nausea Verified 07/22/24 10:02 Family History Mother CAD (coronary artery disease) Hypertension History of cardiac radiofrequency ablation Sister Hypertension Other Arthritis Surgical History History of coronary artery stent placement H/O cervical spine surgery History of herniorrhaphy History of carpal tunnel release History of transurethral resection of prostate History of coronary artery stent placement (11/29/10) History of bursectomy History of removal of cyst History of carpal tunnel surgery History of fusion of cervical spine Social History household members: other details: Older son Naeem. Smoking Status: Former smoker alcohol intake: never substance use type: does not use ROS Constitutional Constitutional: Reports chills; Denies fatigue, fever(s) or malaise Eyes Eyes: Denies blurry vision ENT HEENT: Denies headache(s) or nasal discharge Cardiovascular Cardiovascular: Denies chest pain, dyspnea on exertion or syncope Respiratory/Chest Respiratory/Chest: Denies cough, shortness of breath at rest or shortness of breath with exertion Gastrointestinal Gastrointestinal: Reports nausea; Denies constipation, diarrhea or vomiting Genitourinary Genitourinary: Denies dysuria Musculoskeletal Musculoskeletal: Reports arthralgias and myalgias Neurologic Neurologic: Denies focal weakness, numbness or tremor(s) Psychiatric Psychiatric: Denies anxiety or depression Vital Signs Vital Signs Vital Signs: 07/22/24 09:57 07/22/24 10:01 07/22/24 11:00 Temperature 97.9 F 97.9 F Temperature Source Oral Oral Pulse Rate 96 86 95 Respiratory Rate 24 H 24 H 19 H Blood Pressure 123/94 H 123/94 H 103/61 Blood Pressure Mean 103 103 75 Blood Pressure Source Blood Pressure Position Blood Pressure Location Pulse Ox 97 95 97 Oxygen Delivery Method Room Air Room Air Room Air 07/22/24 11:01 07/22/24 12:00 07/22/24 12:49 Temperature 97.6 F L 98.0 F 98.0 F Temperature Source Oral Oral Pulse Rate 95 109 H 111 H Respiratory Rate 19 H 17 17 Blood Pressure 103/61 139/87 H 110/67 Blood Pressure Mean 75 104 81 Blood Pressure Source Blood Pressure Position Blood Pressure Location Pulse Ox 97 98 96 Oxygen Delivery Method Room Air Room Air 07/22/24 13:45 Temperature 98.3 F Temperature Source Temporal Pulse Rate 107 H Respiratory Rate 18 Blood Pressure 122/74 H Blood Pressure Mean 90 Blood Pressure Source Monitor Blood Pressure Position Semi-Fowlers Blood Pressure Location Right Forearm Pulse Ox 97 Oxygen Delivery Method Room Air Weight Weight: 259 lb 6.4 oz Body Mass Index (BMI) 41.8 Physical Exam Narrative General: Alert, Oriented x3, Cooperative, No apparent distress HEENT: Atraumatic, PERRLA, EOMI, Normocephalic Oral: Moist Mucosa Neck: Supple, No JVD Lungs: Diminished, Normal air movement, No rhonchi, No wheeze, No rales Cardiovascular: Tachycardic, Regular Rhythm, Normal S1, Normal S2, No murmurs Abdomen: Soft, Non Tender, Non-Distended, No Hepato-splenomegaly Extremities: Lymphedema, Capillary Refill Less than 3 Seconds Skin: Multiple areas of bilateral skin breakdown on his lower extremities below the knee with weeping and signs of possible infection, chronic venous stasis changes, no obvious erythema Musculoskeletal: Tenderness palpation of both lower extremities below the knee Neurological: No focal neurological deficits, moves all extremities Psych/Mental Status: Flat Results Lab / Micro Data 07/22/24 10:25 07/22/24 10:25 Labs: Laboratory Results - last 24 hr 07/22/24 10:25: WBC 13.4 H, RBC 4.85, Hgb 14.9, Hct 44.5, MCV 91.8, MCH 30.7, MCHC 33.5, RDW Std Deviation 50.3 H, RDW Coeff of Naz 14.8 H, Plt Count 253, MPV 10.2, Immature Gran % (Auto) 0.400, Neut % (Auto) 75.7 H, Lymph % (Auto) 11.4 L, [place] % (Auto) 8.6, Eos % (Auto) 3.7, Baso % (Auto) 0.2, Absolute Neuts (auto) 10.1 H, Absolute Lymphs (auto) 1.53, Nucleated RBC % 0, PT Cancelled, INR Cancelled, APTT Cancelled, Sodium 135, Potassium 4.7, Chloride 101, Carbon Dioxide 22.5, Anion Gap 11, BUN 22 H, Creatinine 1.34 H, Estim Creat Clear Calc 58.97, Est GFR (MDRD) Non-Af 56 L, BUN/Creatinine Ratio 16.6, Glucose 102 H, Lactic Acid 1.5, Calcium 7.9, Magnesium 1.9, Total Bilirubin 0.61, Direct Bilirubin < 0.08, AST 42 H, ALT 29, Alkaline Phosphatase 164 H, NT pro BNP II 187, Total Protein 7.5, Albumin 3.3 L, Globulin 4.2 07/22/24 11:03: PT 18.7 H, INR 1.5, APTT 42.3 H 07/22/24 12:39: Urine Color Straw, Urine Clarity Clear, Urine pH 6.0, Ur Specific [place] 1.015, Urine Protein Negative, Urine Glucose (UA) Normal, Urine Ketones Negative, Urine Occult Blood Negative, Urine Nitrite Negative, Urine Bilirubin Negative, Urine Urobilinogen Normal, Ur Leukocyte Esterase Negative, Urine RBC 0 SEEN, Urine WBC 0 SEEN, Ur Squamous Epith Cells 0 SEEN, Urine Bacteria 0 SEEN, Urine Mucus 0 SEEN Imaging Radiology Impression Chest X-Ray 07/22/24 10:54 IMPRESSION: No acute cardiopulmonary process. Reading [facility] Assessment & Plan Assessment/Plan (1) Lipodermatosclerosis of both lower extremities: (2) Lymphedema: (3) Wound infection: PLAN: Plan 1. Chronic venous stasis changes with chronic venous insufficiency and peripheral neuropathy with wound infection versus cellulitis ? He does have Lipodermatosclerosis of both lower extremities ? No fever but he does have a leukocytosis 13.4 and is tachycardic though this is confounded by the fact that he also has a history of A-fib ? Continue with diuresis as his edema appears more pronounced ? Continue with Xarelto, unlikely to have a DVT ? Will consult infectious disease and wound care 2. Chronic A-fib/essential HTN/HLD/CAD status post stent ? Continue with his home medications ? Blood pressure stable ? Will monitor and make adjustments as necessary ? Echo in 01/20/2023 with an EF of 65% and no diastolic dysfunction, proBNP today is normal DVT: Fabiola 75 minutes was spent on direct patient care, including documentation as well as chart review and collaboration with colleagues Charges/Coding Visit Charges Inpatient E&M: 08488 Init Hosp L3
[2024-07-22] MEDS: Vancomycin HCl 2,000 MG in 0.9% Normal Saline (500mL Bag) 500 ML 250 MG IV (15:25)
--- NOTE | 2024-07-22 16:32 | PCM.RX.CS ---
Consult Antibiotic Management Pharmacy has been consulted to manage selected antibiotic: Vancomycin Type of Intervention Type of Consult: New start Suspected Infection Suspected Infection: Skin/Soft tissue Labs Labs: Sodium 135 mmol/L (133-145) 07/22/24 10:25 Potassium 4.7 mmol/L (3.3-5.1) 07/22/24 10:25 Chloride 101 mmol/L (98-108) 07/22/24 10:25 Carbon Dioxide 22.5 mmol/L (21.0-32.0) 07/22/24 10:25 Anion Gap 11 (5-15) 07/22/24 10:25 BUN 22 mg/dL (4-19) H 07/22/24 10:25 Creatinine 1.34 mg/dL (0.70-1.20) H 07/22/24 10:25 Est GFR (MDRD) Non-Af 56 (>60) L 07/22/24 10:25 BUN/Creatinine Ratio 16.6 RATIO (10-20) 07/22/24 10:25 Glucose 102 mg/dL (70-99) H 07/22/24 10:25 Goal Trough Goal Trough: 15-20 mcg/mL Pharmacy Plan for Drug Dosing Pharmacy Plan for Drug Dosing: NEW START IV VANCOMYCIN Consulting Physician: TOY Indication: CELLULITIS Goal Trough: 15-20 SrCr: 1.34 CrCl: 58.97 Comments: Vancomycin Dose: LOAD (2000 MG ONCE), 1250 MG Q12H Pending Level: 07/24/2024 0300 Pharmacy Service will continue to monitor and adjust dosing as required. Follow-Up Labs Follow-Up Labs: Trough: Vancomycin Date/Time Labs Ordered Labs to be done on [date and time ordered]: 07/24/2024 0300
[2024-07-22] MEDS: Nystatin Powder 15gm Bottle 1 APPLIC TOPICAL ×2 (18:04→21:03)
[2024-07-22] MEDS: Furosemide 40 MG/4 ML Vial IV (18:05)
[2024-07-22] MEDS: Atorvastatin Calcium 40 MG Tablet PO (21:02)
[2024-07-22] MEDS: Rivaroxaban 20 MG Tablet PO (21:02)
[2024-07-23] MEDS: 0.9% Normal Saline (100mL Bag) 100 ML 15 ML IV (02:39)
[2024-07-23] MEDS: Piperacil/Tazobactam 3.375 GM in 0.9% Normal Saline (50mL MB+) 50 ML IV ×4 (02:41→21:26)
[2024-07-23] MEDS: 0.9% Saline Lock 10 ML Syringe IV ×2 (02:46→11:10)
[2024-07-23] MEDS: Morphine 2 MG/ML Syringe IV ×2 (02:46→20:11)
[2024-07-23 02:50] VITALS: BP 103/63; PULSE 87; RESP 16; TEMP 37; O2SAT 95
[2024-07-23] MEDS: Vancomycin HCl 1,250 MG in 0.9% Normal Saline (250mL Bag) 250 ML 167 MG IV ×2 (03:39→16:35)
[2024-07-23] MEDS: Nystatin Powder 15gm Bottle 1 APPLIC TOPICAL ×3 (03:39→20:45)
[2024-07-23 04:34] LABS: Absolute Lymphocyte Count 1.12 X10^3/uL (0.83-4.51); Absolute Neutrophil Count 9.4 X10^3/uL (2.0-7.7); Basophil# 0.03 X10^3/uL; Basophil% 0.3 % (0-1); Eosinophil# 0.09 X10^3/uL; Eosinophils% 0.8 % (0-5); Hematocrit 37.6 % (40-54); Hemoglobin 12.6 g/dL (13.0-16.5); Lymphocyte # 1.12 X10^3/ul (0.83-4.51); Lymphocyte % 9.5 % (19-41); Mean Corp Hgb Conc 33.5 g/dL (32-36); Mean Corpuscular Hgb 30.3 pg (27.0-32.0); Mean Corpuscular Volume 90.4 fL (80-94); Mean Platelet Vol. 9.9 fl (6.2-12.0); Monocyte# 1.12 X10^3/uL; Monocyte% 9.5 % (0-10); NRBC Flagged by Analyzer 0 % (0-5); Neutrophil % 79.6 % (47-70); Platelet Count 223 K/mm3 (150-450); RBC Distribution Width SD 49.9 fl (35.1-43.9); Red Blood Count 4.16 M/mm3 (4.6-6.2); White Blood Count 11.8 K/mm3 (4.4-11.0)
[2024-07-23 05:02] LABS: Anion Gap 9 (5-15); BUN 20 mg/dL (4-19); BUN/Creat Ratio 15.9 RATIO (10-20); Calcium,Total 8.1 mg/dL (7.6-11.0); Carbon Dioxide 23.6 mmol/L (21.0-32.0); Chloride 104 mmol/L (98-108); Creatinine, Serum 1.26 mg/dL (0.70-1.20); EST Glomerular Filtration Rate 60 (>60); Estimated Creatinine Clearance 62.09 ml/min (50-250); Glucose 111 mg/dL (70-99); Potassium 3.6 mmol/L (3.3-5.1); Sodium Level 136 mmol/L (133-145)
[2024-07-23 06:00] VITALS: BMI 41.6
[2024-07-23] MEDS: traMADol 50 MG Tablet PO ×2 (08:04→16:35)
--- NOTE | 2024-07-23 08:13 | WOUNDNOTE ---
wound photo: left lower leg
--- NOTE | 2024-07-23 08:18 | WOUNDNOTE ---
wound photo: left lower leg
--- NOTE | 2024-07-23 08:20 | WOUNDNOTE ---
wound photo: right lower leg
[2024-07-23 09:35] VITALS: BP 117/71; PULSE 94; RESP 18; TEMP 36.6; O2SAT 95
--- NOTE | 2024-07-23 09:35 | PN.HOSP_ITS ---
Subjective Subjective Edema has improved somewhat though he is still complaining of bilateral leg pain Objective Data Objective Data Vital Signs: Vital Signs Temp Pulse Resp BP Pulse Ox O2 Del Method 98.6 F 87 16 103/63 95 Room Air 07/23/24 02:50 07/23/24 02:50 07/23/24 02:50 07/23/24 02:50 07/23/24 02:50 07/23/24 02:50 Oxygen Delivery Method Room Air Weight: 259 lb 6.334 oz Body Mass Index (BMI) 41.6 Intake & Output: Intake and Output for Last 24 Hours 07/22/24 07/23/24 07/24/24 03:59 03:59 03:59 Intake Total 1204.38 / 1204.38 275 / 275 Output Total 1999 350 / 350 Balance -795.62 / -795.62 -75 / -75 Lab / Micro Data 07/23/24 04:13 07/23/24 04:13 Labs: Laboratory Results - last 24 hr 07/22/24 10:25: WBC 13.4 H, RBC 4.85, Hgb 14.9, Hct 44.5, MCV 91.8, MCH 30.7, MCHC 33.5, RDW Std Deviation 50.3 H, RDW Coeff of Naz 14.8 H, Plt Count 253, MPV 10.2, Immature Gran % (Auto) 0.400, Neut % (Auto) 75.7 H, Lymph % (Auto) 11.4 L, [place] % (Auto) 8.6, Eos % (Auto) 3.7, Baso % (Auto) 0.2, Absolute Neuts (auto) 10.1 H, Absolute Lymphs (auto) 1.53, Nucleated RBC % 0, PT Cancelled, INR Cancelled, APTT Cancelled, Sodium 135, Potassium 4.7, Chloride 101, Carbon Dioxide 22.5, Anion Gap 11, BUN 22 H, Creatinine 1.34 H, Estim Creat Clear Calc 58.97, Est GFR (MDRD) Non-Af 56 L, BUN/Creatinine Ratio 16.6, Glucose 102 H, Lactic Acid 1.5, Calcium 7.9, Magnesium 1.9, Total Bilirubin 0.61, Direct Bilirubin < 0.08, AST 42 H, ALT 29, Alkaline Phosphatase 164 H, NT pro BNP II 187, Total Protein 7.5, Albumin 3.3 L, Globulin 4.2 07/22/24 11:03: PT 18.7 H, INR 1.5, APTT 42.3 H 07/22/24 12:39: Urine Color Straw, Urine Clarity Clear, Urine pH 6.0, Ur Specific [place] 1.015, Urine Protein Negative, Urine Glucose (UA) Normal, Urine Ketones Negative, Urine Occult Blood Negative, Urine Nitrite Negative, Urine Bilirubin Negative, Urine Urobilinogen Normal, Ur Leukocyte Esterase Negative, Urine RBC 0 SEEN, Urine WBC 0 SEEN, Ur Squamous Epith Cells 0 SEEN, Urine Bacteria 0 SEEN, Urine Mucus 0 SEEN 07/23/24 04:13: WBC 11.8 H, RBC 4.16 L, Hgb 12.6 L, Hct 37.6 L, MCV 90.4, MCH 30.3, MCHC 33.5, RDW Std Deviation 49.9 H, RDW Coeff of Naz 15.0 H, Plt Count 223, MPV 9.9, Immature Gran % (Auto) 0.300, Neut % (Auto) 79.6 H, Lymph % (Auto) 9.5 L, [place] % (Auto) 9.5, Eos % (Auto) 0.8, Baso % (Auto) 0.3, Absolute Neuts (auto) 9.4 H, Absolute Lymphs (auto) 1.12, Nucleated RBC % 0, Sodium 136, Potassium 3.6, Chloride 104, Carbon Dioxide 23.6, Anion Gap 9, BUN 20 H, C reatinine 1.26 H, Estim Creat Clear Calc 62.09, Est GFR (MDRD) Non-Af 60, BUN/Creatinine Ratio 15.9, Glucose 111 H, Calcium 8.1 Radiography Diagnostic Testing: Radiology Impression Chest X-Ray 07/22/24 10:54 IMPRESSION: No acute cardiopulmonary process. Reading Location: [facility] Physical Exam Narrative General: Alert, Oriented x3, Cooperative, No apparent distress HEENT: Atraumatic, PERRLA, EOMI, Normocephalic Oral: Moist Mucosa Neck: Supple, No JVD Lungs: Diminished, Normal air movement, No rhonchi, No wheeze, No rales Cardiovascular: Tachycardic, Regular Rhythm, Normal S1, Normal S2, No murmurs Abdomen: Soft, Non Tender, Non-Distended, No Hepato-splenomegaly Extremities: Lymphedema, Capillary Refill Less than 3 Seconds Skin: Multiple areas of bilateral skin breakdown on his lower extremities below the knee with weeping and signs of possible infection, chronic venous stasis changes, no obvious erythema Musculoskeletal: Tenderness palpation of both lower extremities below the knee Neurological: No focal neurological deficits, moves all extremities Psych/Mental Status: Flat Assessment & Plan Assessment/Plan (1) Lipodermatosclerosis of both lower extremities: (2) Lymphedema: (3) Wound infection: PLAN: Plan 1. Chronic venous stasis changes with chronic venous insufficiency and peripheral neuropathy with wound infection versus cellulitis ? He does have Lipodermatosclerosis of both lower extremities ? No fever and leukocytosis is improving. Continue with Vanco and Zosyn for now based on the Pseudomonas culture back in April ? Continue with diuresis as his edema appears more pronounced ? Continue with Xarelto, unlikely to have a DVT ? Will consult infectious disease and wound care 2. Chronic A-fib/essential HTN/HLD/CAD status post stent ? Continue with his home medications ? Blood pressure stable ? Will monitor and make adjustments as necessary ? Echo in 01/20/2023 with an EF of 65% and no diastolic dysfunction, proBNP today is normal DVT: Jeffto Charges/Coding Visit Charges Inpatient E&M: 92032 Subs Hosp L2
[2024-07-23] MEDS: Losartan Potassium 50 MG Tablet PO (11:02)
[2024-07-23] MEDS: Furosemide 40 MG/4 ML Vial IV ×2 (11:03→18:33)
--- NOTE | 2024-07-23 12:15 | CASEMGMT ---
Social Work SW met with pt and introduced self and role of SW. Pt is know to this SW from previous visits. Pt expressing frustration that his medical issues are not improving and leg pain is significant and pt making a statement that dying seems like a good idea. Pt adamantly denies any thoughts of suicidal ideation. Pt able to state that his rosalina and family as protective factors against self harm. Pt states that he once thought he would improve, but now feels he does not have hope of improving. SW provided emotional support and encouraged pt to verbalize his feelings regarding medical issues. Pt lives with his son Naeem and who does work. Naeem assists with morning care and evening care. Pt has an aid through the [place] for 36 hours a week (M-F 8-3). Aid assists with getting meals for pt, doing laundry and cleaning and personal care. Pt expressing appreciation for the care provided by this aid. Pt did have home health services through [place] but states they stopped services because he insulted them. Pt was at a SNF in April, but was cut by insurance after the first review and returned home soon after he got there. SW engaged pt in conversation regarding goals of care. Pt is more open about discussing poor health condition than he has been during previous hospital visits. SW discussed discharge options including going to SNF at [place] (if insurance would approve stay, pt will not private pay), finding a new home health agency to provide care for pt and leg wounds at home, and home with hospice. SW did present information on hospice philosophy and care at length. Pt is concerned that he would not be able to have [facility] with [facility]. Call to JESSIE Bhatti at [facility] who confirms [facility] provide [employer] 36 hours per week and that if pt chose hospice, aid would continue. Pt made aware. SW requesting to speak with pt and with pt son when son arrives to discuss options. Pt is agreeable and to notify SW when his son arrives. Physician notified that SW did explain to pt what hospice could provide to pt. SW to follow up. LEIA Chen
[2024-07-23 14:40] VITALS: BP 91/62; PULSE 107; RESP 18; TEMP 36.8; O2SAT 97
--- NOTE | 2024-07-23 16:18 | NURSING ---
All documentation by adjunct nursing faculty Nayeli Brito reviewed by advanced nursing professor Hawa GILBERTN, RN.
--- NOTE | 2024-07-23 16:28 | CASEMGMT ---
Social Work SW called to pt room. Pt and son are agreeable to meet with SW. SW reviewed with pt and son discussion earlier today regarding goals of care. Discussed discharge option including SNF, home with a new home health company, and Palliative medicine which son states pt had previously but had told them not to come back. SW did explain hospice services to pt and son and provided written information about the program. SW requested pt and son discuss information provided and determine choice of discharge plan. SW to follow up with pt tomorrow. LEIA Chen
--- NOTE | 2024-07-23 16:36 | PCM.CONS.GEN ---
Assessment & Plan Assessment/Plan (1) Wound infection: PLAN: Wound cx pending, cont vanc/zosyn. Has h/o PsA infection. Will follow, thank you (2) Lymphedema: HPI Consult Data Date of Consult: 07/23/24 HPI Narrative Reason for Consultation: cellulitis HPI Narrative: TURNER YAN, is a 73 M with h/o stroke, chronic lymphedema, presented with several days increased pain, redness, swelling, and drainage from legs, R more than L. No known inciting event, no fever, no n/v/d. Admitted here, not feeling well, reports leg wraps are uncomfortable. Full ROS performed and neg except as noted above. [facility] Medical History Unable to ambulate Edema Generalized weakness Morbid obesity with BMI of 40.0-44.9, adult History of CVA (cerebrovascular accident) Lipodermatosclerosis of both lower extremities Venous insufficiency (chronic) (peripheral) Atrial fibrillation Bilateral leg edema History of stroke History of CAD (coronary artery disease) History of atrial fibrillation Neuropathic pain Obesity Essential (primary) hypertension Hemiplegia of right dominant side as late effect of cerebral infarction Right rotator cuff tear Right hemiplegia Congestive heart failure (CHF) Ambulatory dysfunction Tinea cruris Chronic venous stasis dermatitis Lymphedema Chronic anticoagulation Bilateral cellulitis of lower leg Candidiasis of skin Adult failure to thrive Hemiplegia affecting right dominant side Anticoagulant long-term use Pneumonia Cellulitis Atrial fibrillation CVA (cerebral vascular accident) Rotator cuff tear arthropathy of right shoulder CPAP (continuous positive airway pressure) dependence Sleep apnea FTT (failure to thrive) in adult Lymphedema of both lower extremities Chronic venous stasis dermatitis of both lower extremities Low back pain Hypertension Atrial fibrillation Debility Pain of left great toe Pain in right lower leg Hyperglycemia Leg pain Toe ulcer Lymphedema Non-pressure chronic ulcer of other part of right foot with necrosis of muscle Cellulitis of right lower limb Deep venous thrombosis 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 layer exposed Venous insufficiency Skin ulcer of left great toe with fat layer exposed Dyspnea on minimal exertion Anomalous origin of coronary artery Obesity New onset atrial fibrillation (03/24/20) Essential (primary) hypertension Pain of left lower extremity due to injury Former smoker Traumatic hematoma of left lower leg Arthritis Benign neoplasm of middle ear, nasal cavity and accessory sinuses ANDREE (obstructive sleep apnea) Cervical disc disease BPH (benign prostatic hyperplasia) GERD (gastroesophageal reflux disease) Hyperlipidemia Atherosclerotic heart disease of [place] coronary artery without angina pectoris Cardiac murmur, unspecified Home Medications ?Medication ?Instructions ?Recorded ?Last Taken ?Type atorvastatin 40 mg tablet 40 mg PO QHS choplesterol #0 tabs 09/07/23 07/21/24 Rx nystatin 100,000 unit/gram topical 1 applic topical BID #0 grams 10/25/23 01/25/24 Rx powder (Nyamyc) acetaminophen 500 mg tablet 1,000 mg PO Q8 PRN pain 12/27/23 01/25/24 17:00 History 1,000 mg Lactobacillus rhamnosus GG 10 1 cap PO BID 05/08/24 Unknown History billion cell capsule (Culturelle) furosemide 40 mg tablet 40 mg PO BID 05/08/24 07/22/24 History tramadol 50 mg tablet 50 mg PO Q8H PRN pain 05/08/24 07/22/24 History cefdinir 300 mg capsule 300 mg PO BID 07/22/24 07/22/24 History cholecalciferol (vitamin D3) 50 50 mcg PO DAILY 07/22/24 07/21/24 History mcg (2,000 unit) tablet gabapentin 300 mg capsule 300 mg PO TID 07/22/24 07/22/24 History losartan 50 mg tablet 50 mg PO DAILY 07/22/24 07/21/24 History menthol 0.44 %-zinc oxide 20.6 % 1 applic topical BID PRN skin 07/22/24 Unknown History topical ointment (Calmoseptine) irritation minocycline 100 mg capsule 100 mg PO BID 07/22/24 07/22/24 History potassium chloride 20 mEq 20 meq PO TID potassium 07/22/24 07/22/24 History tablet,extended release(part/cryst) (Klor-Con M) rivaroxaban 20 mg tablet (Xarelto) 20 mg PO QHS BLOOD THINNER 07/22/24 07/21/24 History Allergy/AdvReac Type Severity Reaction Status Date / Time diphenhydramine (From AdvReac Mild Abd Verified 07/22/24 10:02 Benadryl) cramps/diarrhea ibuprofen (From Motrin) AdvReac Nausea Verified 07/22/24 10:02 Family History Mother CAD (coronary artery disease) Hypertension History of cardiac radiofrequency ablation Sister Hypertension Other Arthritis Surgical History History of coronary artery stent placement H/O cervical spine surgery History of herniorrhaphy History of carpal tunnel release History of transurethral resection of prostate History of coronary artery stent placement (11/29/10) History of bursectomy History of removal of cyst History of carpal tunnel surgery History of fusion of cervical spine Social History household members: other details: Older son Naeem. Smoking Status: Former smoker alcohol intake: never substance use type: does not use Physical Exam Const alert, oriented x3 and no apparent distress General Appearance: cooperative HEENT normocephalic and head/scalp atraumatic Eyes PERRL and EOMs intact bilaterally Neck supple and No nodes Resp normal air movement and clear to auscultation bilaterally Cardio regular rate and regular rhythm GI soft to palpation, non-tender and non-distended Extremity General Extremity: edema Skin Skin Narrative: BLE wrapped, reviewed photos Neuro CN's II-XII intact bilaterally Lab / Micro Data Attestation: I reviewed the patient's lab results. 07/23/24 04:13 07/23/24 04:13 Labs: Laboratory Results - last 24 hr 07/23/24 04:13: WBC 11.8 H, RBC 4.16 L, Hgb 12.6 L, Hct 37.6 L, MCV 90.4, MCH 30.3, MCHC 33.5, RDW Std Deviation 49.9 H, RDW Coeff of Naz 15.0 H, Plt Count 223, MPV 9.9, Immature Gran % (Auto) 0.300, Neut % (Auto) 79.6 H, Lymph % (Auto) 9.5 L, [place] % (Auto) 9.5, Eos % (Auto) 0.8, Baso % (Auto) 0.3, Absolute Neuts (auto) 9.4 H, Absolute Lymphs (auto) 1.12, Nucleated RBC % 0, Sodium 136, Potassium 3.6, Chloride 104, Carbon Dioxide 23.6, Anion Gap 9, BUN 20 H, Creatinine 1.26 H, Estim Creat Clear Calc 62.09, Est GFR (MDRD) Non-Af 60, BUN/Creatinine Ratio 15.9, Glucose 111 H, Calcium 8.1 Micro: Microbiology 07/22/24 14:40 Wound - Leg, Left Gram Stain - Final 07/22/24 14:40 Wound - Leg, Left Wound Culture - Preliminary Mixed Gram Pos & Gram Neg Org 07/22/24 14:40 Wound - Leg, Right Gram Stain - Final
[2024-07-23 20:10] VITALS: BP 109/64; PULSE 85; RESP 18; TEMP 36.6; O2SAT 96
[2024-07-23] MEDS: Rivaroxaban 20 MG Tablet PO (21:26)
[2024-07-23] MEDS: Atorvastatin Calcium 40 MG Tablet PO (21:27)
[2024-07-24] MEDS: Morphine 2 MG/ML Syringe IV ×2 (01:18→21:27)
[2024-07-24] MEDS: 0.9% Saline Lock 10 ML Syringe IV ×2 (01:49→21:28)
[2024-07-24 02:00] VITALS: BP 103/65; PULSE 86; RESP 18; TEMP 36.9; O2SAT 95
[2024-07-24] MEDS: Piperacil/Tazobactam 3.375 GM in 0.9% Normal Saline (50mL MB+) 50 ML IV ×4 (02:45→21:28)
[2024-07-24 03:49] LABS: Absolute Lymphocyte Count 0.86 X10^3/uL (0.83-4.51); Absolute Neutrophil Count 7.8 X10^3/uL (2.0-7.7); Basophil# 0.02 X10^3/uL; Basophil% 0.2 % (0-1); Eosinophil# 0.36 X10^3/uL; Eosinophils% 3.7 % (0-5); Hematocrit 37.3 % (40-54); Hemoglobin 12.6 g/dL (13.0-16.5); Lymphocyte # 0.86 X10^3/ul (0.83-4.51); Lymphocyte % 8.7 % (19-41); Mean Corp Hgb Conc 33.8 g/dL (32-36); Mean Corpuscular Hgb 29.9 pg (27.0-32.0); Mean Corpuscular Volume 88.6 fL (80-94); Mean Platelet Vol. 9.9 fl (6.2-12.0); Monocyte# 0.76 X10^3/uL; Monocyte% 7.7 % (0-10); NRBC Flagged by Analyzer 0 % (0-5); Neutrophil # 7.78 X10^3/uL (2.7-7.7); Neutrophil % 79.2 % (47-70); Platelet Count 210 K/mm3 (150-450); RBC Distribution Width CV 14.8 % (11.6-14.6); Red Blood Count 4.21 M/mm3 (4.6-6.2); White Blood Count 9.8 K/mm3 (4.4-11.0)
[2024-07-24 04:26] LABS: Anion Gap 9 (5-15); BUN 15 mg/dL (4-19); BUN/Creat Ratio 14.1 RATIO (10-20); Carbon Dioxide 25.6 mmol/L (21.0-32.0); Chloride 102 mmol/L (98-108); Creatinine, Serum 1.05 mg/dL (0.70-1.20); EST Glomerular Filtration Rate 74 (>60); Estimated Creatinine Clearance 74.51 ml/min (50-250); Glucose 87 mg/dL (70-99); Sodium Level 137 mmol/L (133-145)
[2024-07-24 05:10] LABS: Vancomycin, Trough Level 22.3 ug/mL (5.0-15.0)
--- NOTE | 2024-07-24 05:18 | PCM.RX.CS ---
Consult Antibiotic Management Pharmacy has been consulted to manage selected antibiotic: Vancomycin Type of Intervention Type of Consult: Follow-up Suspected Infection Suspected Infection: Skin/Soft tissue Labs Labs: Sodium 137 mmol/L (133-145) 07/24/24 03:16 Potassium 3.0 mmol/L (3.3-5.1) L 07/24/24 03:16 Chloride 102 mmol/L (98-108) 07/24/24 03:16 Carbon Dioxide 25.6 mmol/L (21.0-32.0) 07/24/24 03:16 Anion Gap 9 (5-15) 07/24/24 03:16 BUN 15 mg/dL (4-19) 07/24/24 03:16 Creatinine 1.05 mg/dL (0.70-1.20) 07/24/24 03:16 Est GFR (MDRD) Non-Af 74 (>60) 07/24/24 03:16 BUN/Creatinine Ratio 14.1 RATIO (10-20) 07/24/24 03:16 Glucose 87 mg/dL (70-99) 07/24/24 03:16 Vancomycin Trough 22.3 ug/mL (5.0-15.0) H 07/24/24 03:16 Microbiology Microbiology: Microbiology 07/22/24 14:40 Wound - Leg, Left Gram Stain - Final 07/22/24 14:40 Wound - Leg, Left Wound Culture - Preliminary Mixed Gram Pos & Gram Neg Org 07/22/24 14:40 Wound - Leg, Right Gram Stain - Final Goal Trough Goal Trough: 15-20 mcg/mL Pharmacy Plan for Drug Dosing Pharmacy Plan for Drug Dosing: VANCOMYCIN LEVEL RECEIVED Current Vancomycin Dose: 1250mg Q12H Number of Doses Received: 1250mg x2, 2000mg x1 Vancomycin Level: 22.3 Hours Since Last Dose: 11.5 Renal Function: sCr 1.05 Renal Function Trend: stable Vancomycin Plan/Comments: HOLD Vancomycin x 12 hours for drug clearance Pending Level: Random level @ 17:00 07/24/24 Pharmacy Service will continue to monitor and adjust dosing as required. Follow-Up Labs Follow-Up Labs: Trough: Vancomycin (07/24/24 @ 17:00)
[2024-07-24] MEDS: Nystatin Powder 15gm Bottle 1 APPLIC TOPICAL ×3 (05:32→21:31)
[2024-07-24 06:00] VITALS: BMI 40.7
[2024-07-24 09:00] VITALS: RESP 18
--- NOTE | 2024-07-24 09:48 | PCM.PN.HOSP ---
Subjective Subjective Leukocytosis has resolved, unfortunately will be a challenge to get home health care to his house as they have discharged him from care given his behaviors towards staff while at home. Objective Data Objective Data Vital Signs: Vital Signs Temp Pulse Resp BP Pulse Ox O2 Del Method 98.5 F 86 18 103/65 95 Room Air 07/24/24 02:00 07/24/24 02:00 07/24/24 02:00 07/24/24 02:00 07/24/24 02:00 07/24/24 02:00 Oxygen Delivery Method Room Air Weight: 253 lb 4.978 oz Body Mass Index (BMI) 40.7 Intake & Output: Intake and Output for Last 24 Hours 07/23/24 07/24/24 07/25/24 03:59 03:59 03:59 Intake Total 1204.38 / 1204.38 2200 / 2200 Output Total 1999 / 1999 2650 / 2650 450 / 450 Balance -795.62 / -795.62 -450 / -450 -450 / -450 Lab / Micro Data 07/24/24 03:16 07/24/24 03:16 Labs: Laboratory Results - last 24 hr 07/24/24 03:16: WBC 9.8, RBC 4.21 L, Hgb 12.6 L, Hct 37.3 L, MCV 88.6, MCH 29.9, MCHC 33.8, RDW Std Deviation 48.0 H, RDW Coeff of Naz 14.8 H, Plt Count 210, MPV 9.9, Immature Gran % (Auto) 0.500, Neut % (Auto) 79.2 H, Lymph % (Auto) 8.7 L, [place] % (Auto) 7.7, Eos % (Auto) 3.7, Baso % (Auto) 0.2, Absolute Neuts (auto) 7.8 H, Absolute Lymphs (auto) 0.86, Nucleated RBC % 0, Sodium 137, Potassium 3.0 L, Chloride 102, Carbon Dioxide 25.6, Anion Gap 9, BUN 15, Creatinine 1.05, Estim Creat Clear Calc 74.51, Est GFR (MDRD) Non-Af 74, BUN/Creatinine Ratio 14.1, Glucose 87, Calcium 8.0, Vancomycin Trough 22.3 H Micro: Microbiology 07/22/24 14:40 Wound - Leg, Left Gram Stain - Final 07/22/24 14:40 Wound - Leg, Left Wound Culture - Preliminary GNR lactose barrel scraper GNR lactose barrel scraper#2 GPC Poss Enterococcus sp Staphylococcus aureus 07/22/24 12:19 Blood Culture (Wb) - Left Hand Blood Culture - Preliminary No growth in 48 hours. 07/22/24 10:25 Blood Culture (Wb) - Left Wrist Blood Culture - Preliminary No growth in 48 hours. 07/22/24 14:40 Wound - Leg, Right Gram Stain - Final Physical Exam Narrative General: Alert, Oriented x3, Cooperative, No apparent distress HEENT: Atraumatic, PERRLA, EOMI, Normocephalic Oral: Moist Mucosa Neck: Supple, No JVD Lungs: Diminished, Normal air movement, No rhonchi, No wheeze, No rales Cardiovascular: Regular rate, Regular Rhythm, Normal S1, Normal S2, No murmurs Abdomen: Soft, Non Tender, Non-Distended, No Hepato-splenomegaly Extremities: Lymphedema, Capillary Refill Less than 3 Seconds Skin: Multiple areas of bilateral skin breakdown on his lower extremities below the knee with weeping and signs of possible infection, chronic venous stasis changes, no obvious erythema Musculoskeletal: Tenderness palpation of both lower extremities below the knee Neurological: No focal neurological deficits, moves all extremities Psych/Mental Status: Flat Assessment & Plan Assessment/Plan (1) Lipodermatosclerosis of both lower extremities: (2) Lymphedema: (3) Wound infection: PLAN: Plan 1. Chronic venous stasis changes with chronic venous insufficiency and peripheral neuropathy with wound infection versus cellulitis ? He does have Lipodermatosclerosis of both lower extremities ? No fever and leukocytosis is resolved. Continue with Vanco and Zosyn for now based on the Pseudomonas culture back in April, new cultures are pending ? Continue with diuresis as his edema appears more pronounced ? Continue with Xarelto, unlikely to have a DVT ? Will consult infectious disease and wound care ? Had a 16-minute discussion with him today on advance care planning as he expressed interest yesterday to social work about possible hospice 2. Chronic A-fib/essential HTN/HLD/CAD status post stent ? Continue with his home medications ? Blood pressure stable ? Will monitor and make adjustments as necessary ? Echo in 01/20/2023 with an EF of 65% and no diastolic dysfunction, proBNP today is normal DVT: Xarelto Charges/Coding Multi Select Codes Visit Charges Visit Charges: 45191 Subs Hosp L2 Hospitalists' Procedures Procedures: 33621 Advncd Care Plan 30 Min
[2024-07-24 10:00] VITALS: BP 88/57; PULSE 78; RESP 18; TEMP 36.8; O2SAT 95
--- NOTE | 2024-07-24 10:07 | PCM.PN.ID ---
Physical Exam Narrative Feeling ok, some pain. No fever. His plan is home with hospice. Const alert and no apparent distress General Appearance: cooperative Resp normal air movement and clear to auscultation bilaterally Cardio regular rate and regular rhythm GI soft to palpation, non-tender and non-distended Extremity General Extremity: edema Skin Skin Narrative: BLE wrapped ID ID: Route of nutrition/ use of supplements: [] Nutritional Intake: [] IV Site: [] Black Catheter: [] Assessment & Plan Assessment/Plan (1) Wound infection: PLAN: Wound cx with GNR x2, enterococcus, and staph aureus. Cont vanc/zosyn. Has h/o PsA infection. If he wants home going po abx with hospice, could do one week po levaquin 750mg daily and augmentin 875mg bid Will follow prn (2) Lymphedema:
--- NOTE | 2024-07-24 11:00 | CASEMGMT ---
JON MI into pt room to discuss obtaining another UNIFIED COMMUNICATIONS ARCHITECT. Pt states he plans to go home with hospice. Updated SW at this time. Left pt with HHC list created by dc campaign assistant. JON MI to follow.
--- NOTE | 2024-07-24 12:57 | CASEMGMT ---
Addendum entered by Viviana Roy 07/24/24 14:28: Social Work Return call from [facility] and message has been left with pt son to schedule visit. [facility] is awaiting return call from son. LEIA Gonzalez Original Note: Social Work SW spoke with physician about hopsice option for pt and physician is agreeable that pt is appropriate for hospice services. SW met with pt in room. Pt states that he and his son did talk about discharge options and pt is choosing hospice. SW encouraged pt to express feelings surrounding health situation and provided emotional support. Pt would like lamonte Hartley to be present during meeting with hospice. Pt would like to return home with hospice services. Referral sent to [facility] and clinicals faxed. [facility] to reach out to pt lamonte Hartley to schedule a visit. LEIA Gonzalez
[2024-07-24 15:00] VITALS: RESP 18
--- NOTE | 2024-07-24 15:42 | CASEMGMT ---
Received tc from Rolo at the [facility], he requests update on pt. Made aware that pt will be meeting with hospice potentially tomorrow. He will call back tomorrow for an update after the meeting. Updated JESSIE.
[2024-07-24 15:44] VITALS: BP 127/80; PULSE 86; RESP 18; TEMP 37.1; O2SAT 96
[2024-07-24] MEDS: Vancomycin Trough/Random Due 1 LAB MC (17:20)
[2024-07-24 18:45] LABS: Vancomycin, Random Level 10.9 ug/mL (0.0-15.0)
--- NOTE | 2024-07-24 18:57 | PCM.RX.CS ---
Consult Antibiotic Management Pharmacy has been consulted to manage selected antibiotic: Vancomycin Type of Intervention Type of Consult: Follow-up Suspected Infection Suspected Infection: Skin/Soft tissue Prior Doses of Antibiotics Prior Doses of Antibiotics Received/Current Regimen: Vancomycin 1250 mg Q12H last dose given 07/23 @ 1635 Labs Labs: Sodium 137 mmol/L (133-145) 07/24/24 03:16 Potassium 3.0 mmol/L (3.3-5.1) L 07/24/24 03:16 Chloride 102 mmol/L (98-108) 07/24/24 03:16 Carbon Dioxide 25.6 mmol/L (21.0-32.0) 07/24/24 03:16 Anion Gap 9 (5-15) 07/24/24 03:16 BUN 15 mg/dL (4-19) 07/24/24 03:16 Creatinine 1.05 mg/dL (0.70-1.20) 07/24/24 03:16 Est GFR (MDRD) Non-Af 74 (>60) 07/24/24 03:16 BUN/Creatinine Ratio 14.1 RATIO (10-20) 07/24/24 03:16 Glucose 87 mg/dL (70-99) 07/24/24 03:16 Vancomycin Trough 22.3 ug/mL (5.0-15.0) H 07/24/24 03:16 Random Vancomycin 10.9 ug/mL (0.0-15.0) 07/24/24 16:50 Microbiology Microbiology: Microbiology 07/22/24 14:40 Wound - Leg, Left Gram Stain - Final 07/22/24 14:40 Wound - Leg, Left Wound Culture - Preliminary GNR lactose surgical device sales representative GNR lactose surgical device sales representative#2 GPC Poss Enterococcus sp Staphylococcus aureus Gram positive louise 07/22/24 14:40 Wound - Leg, Right Gram Stain - Final 07/22/24 14:40 Wound - Leg, Right Wound Culture - Preliminary GNR lactose surgical device sales representative Staphylococcus aureus Gram positive louise 07/22/24 12:19 Blood Culture (Wb) - Left Hand Blood Culture - Preliminary No growth in 48 hours. 07/22/24 10:25 Blood Culture (Wb) - Left Wrist Blood Culture - Preliminary No growth in 48 hours. Dosing Weight Weight used for dosin kg Estimated Creatinine Clearance Estimated Creatinine Clearance: ~ 75 Pharmacy Plan for Drug Dosing Pharmacy Plan for Drug Dosing: Vancomycin random level = 10.9, resume with 1000 mg Q12H Pharmacy Service will continue to monitor and adjust dosing as required. Follow-Up Labs Follow-Up Labs: Trough: Vancomycin Date/Time Labs Ordered Labs to be done on [date and time ordered]: 07/26/24 @ 3914
[2024-07-24] MEDS: Vancomycin IV 1,000 MG/200 ML BAG 200 MG IV (19:04)
[2024-07-24] MEDS: Atorvastatin Calcium 40 MG Tablet PO (21:30)
[2024-07-24] MEDS: Rivaroxaban 20 MG Tablet PO (21:30)
[2024-07-24 22:00] VITALS: BP 111/70; PULSE 88; RESP 16; TEMP 36.8; O2SAT 98
[2024-07-24] MEDS: traMADol 50 MG Tablet PO (22:51)
[2024-07-25] MEDS: Ondansetron 4 MG/2 ML Vial IV (01:30)
[2024-07-25] MEDS: Piperacil/Tazobactam 3.375 GM in 0.9% Normal Saline (50mL MB+) 50 ML IV ×3 (03:07→14:24)
[2024-07-25 03:13] VITALS: BP 107/74; PULSE 82; RESP 16; TEMP 36.8; O2SAT 97
[2024-07-25 06:00] VITALS: BMI 40.7
[2024-07-25 06:09] LABS: Absolute Lymphocyte Count 1.12 X10^3/uL (0.83-4.51); Absolute Neutrophil Count 5.8 X10^3/uL (2.0-7.7); Basophil# 0.02 X10^3/uL; Basophil% 0.2 % (0-1); Eosinophil# 0.42 X10^3/uL; Eosinophils% 5.2 % (0-5); Hematocrit 36.6 % (40-54); Hemoglobin 12.2 g/dL (13.0-16.5); Lymphocyte # 1.12 X10^3/ul (0.83-4.51); Lymphocyte % 13.9 % (19-41); Mean Corp Hgb Conc 33.3 g/dL (32-36); Mean Corpuscular Hgb 29.8 pg (27.0-32.0); Mean Corpuscular Volume 89.5 fL (80-94); Mean Platelet Vol. 9.6 fl (6.2-12.0); Monocyte# 0.65 X10^3/uL; Monocyte% 8.1 % (0-10); NRBC Flagged by Analyzer 0 % (0-5); Neutrophil # 5.81 X10^3/uL (2.7-7.7); Neutrophil % 72.1 % (47-70); Platelet Count 214 K/mm3 (150-450); RBC Distribution Width CV 14.4 % (11.6-14.6); RBC Distribution Width SD 46.8 fl (35.1-43.9); Red Blood Count 4.09 M/mm3 (4.6-6.2); White Blood Count 8.1 K/mm3 (4.4-11.0)
[2024-07-25] MEDS: Vancomycin IV 1,000 MG/200 ML BAG 200 MG IV (06:15)
[2024-07-25] MEDS: Nystatin Powder 15gm Bottle 1 APPLIC TOPICAL ×2 (06:16→14:25)
[2024-07-25 07:02] LABS: Anion Gap 10 (5-15); BUN 10 mg/dL (4-19); BUN/Creat Ratio 10.3 RATIO (10-20); Calcium,Total 8.3 mg/dL (7.6-11.0); Carbon Dioxide 24.6 mmol/L (21.0-32.0); Chloride 101 mmol/L (98-108); EST Glomerular Filtration Rate 79 (>60); Estimated Creatinine Clearance 77.22 ml/min (50-250); Glucose 116 mg/dL (70-99); Potassium 2.8 mmol/L (3.3-5.1); Sodium Level 136 mmol/L (133-145)
[2024-07-25] MEDS: 0.9% Normal Saline (100mL Bag) 100 ML 15 ML IV (08:09)
[2024-07-25] MEDS: Furosemide 40 MG/4 ML Vial IV (08:10)
[2024-07-25] MEDS: Morphine 2 MG/ML Syringe IV ×2 (08:11→14:34)
[2024-07-25] MEDS: Potassium Chloride Oral Tablet 20 MEQ 60 MEQ PO (08:11)
[2024-07-25] MEDS: traMADol 50 MG Tablet PO ×2 (08:11→16:32)
[2024-07-25] MEDS: Losartan Potassium 50 MG Tablet PO (08:12)
[2024-07-25 08:21] VITALS: BP 103/71; PULSE 74; RESP 16; TEMP 36.8; O2SAT 94
--- NOTE | 2024-07-25 08:38 | PN.HOSP_ITS ---
Subjective Subjective No issues overnight, provide will replace his potassium this morning. Continue antibiotics he is planning to meet with hospice today Objective Data Objective Data Vital Signs: Vital Signs Temp Pulse Resp BP Pulse Ox O2 Del Method 98.2 F 74 16 103/71 94 Room Air 07/25/24 08:21 07/25/24 08:21 07/25/24 08:21 07/25/24 08:21 07/25/24 08:21 07/25/24 08:21 Oxygen Delivery Method Room Air Weight: 253 lb 4.978 oz Body Mass Index (BMI) 40.7 Intake & Output: Intake and Output for Last 24 Hours 07/24/24 07/25/24 07/26/24 03:59 03:59 03:59 Intake Total 2200 / 2200 1300 / 1300 250 / 250 Output Total 2650 / 2650 1450 / 1450 300 / 300 Balance -450 / -450 -150 / -150 -50 / -50 Lab / Micro Data 07/25/24 05:45 07/25/24 05:45 Labs: Laboratory Results - last 24 hr 07/24/24 16:50: Random Vancomycin 10.9 07/25/24 05:45: WBC 8.1, RBC 4.09 L, Hgb 12.2 L, Hct 36.6 L, MCV 89.5, MCH 29.8, MCHC 33.3, RDW Std Deviation 46.8 H, RDW Coeff of Naz 14.4, Plt Count 214, MPV 9.6, Immature Gran % (Auto) 0.500, Neut % (Auto) 72.1 H, Lymph % (Auto) 13.9 L, [place] % (Auto) 8.1, Eos % (Auto) 5.2 H, Baso % (Auto) 0.2, Absolute Neuts (auto) 5.8, Absolute Lymphs (auto) 1.12, Nucleated RBC % 0, Sodium 136, Potassium 2.8 L , Chloride 101, Carbon Dioxide 24.6, Anion Gap 10, BUN 10, Creatinine 1.00, Estim Creat Clear Calc 77.22, Est GFR (MDRD) Non-Af 79, BUN/Creatinine Ratio 10.3, Glucose 116 H, Calcium 8.3 Micro: Microbiology 07/22/24 14:40 Wound - Leg, Left Gram Stain - Final 07/22/24 14:40 Wound - Leg, Left Wound Culture - Preliminary GNR lactose flexible machining system machinist GNR lactose flexible machining system machinist#2 GPC Poss Enterococcus sp Staphylococcus aureus Gram positive louise 07/22/24 14:40 Wound - Leg, Right Gram Stain - Final 07/22/24 14:40 Wound - Leg, Right Wound Culture - Preliminary GNR lactose flexible machining system machinist Staphylococcus aureus Gram positive louise 07/22/24 12:19 Blood Culture (Wb) - Left Hand Blood Culture - Preliminary No growth in 48 hours. 07/22/24 10:25 Blood Culture (Wb) - Left Wrist Blood Culture - Preliminary No growth in 48 hours. Physical Exam Narrative General: Alert, Oriented x3, Cooperative, No apparent distress HEENT: Atraumatic, PERRLA, EOMI, Normocephalic Oral: Moist Mucosa Neck: Supple, No JVD Lungs: Diminished, Normal air movement, No rhonchi, No wheeze, No rales Cardiovascular: Regular rate, Regular Rhythm, Normal S1, Normal S2, No murmurs Abdomen: Soft, Non Tender, Non-Distended, No Hepato-splenomegaly Extremities: Lymphedema, Capillary Refill Less than 3 Seconds Skin: Multiple areas of bilateral skin breakdown on his lower extremities below the knee with weeping and signs of possible infection, chronic venous stasis changes, no obvious erythema Musculoskeletal: Tenderness palpation of both lower extremities below the knee Neurological: No focal neurological deficits, moves all extremities Psych/Mental Status: Flat Assessment & Plan Assessment/Plan (1) Lipodermatosclerosis of both lower extremities: (2) Lymphedema: (3) Wound infection: PLAN: Plan 1. Chronic venous stasis changes with chronic venous insufficiency and peripheral neuropathy with wound infection versus cellulitis ? He does have Lipodermatosclerosis of both lower extremities ? No fever and leukocytosis is resolved. Continue with Vanco and Zosyn, cultures are coming back with multiple organisms including a possible Enterococcus and Staph aureus ? Continue with diuresis as his edema appears more pronounced than usual ? Continue with Xarelto, unlikely to have a DVT ? Will consult infectious disease and wound care 2. Chronic A-fib/essential HTN/HLD/CAD status post stent ? Continue with his home medications ? Blood pressure stable ? Will monitor and make adjustments as necessary ? Echo in 01/20/2023 with an EF of 65% and no diastolic dysfunction, proBNP today is normal DVT: Xarelto Charges/Coding Visit Charges Inpatient E&M: 21248 Subs Hosp L2
--- NOTE | 2024-07-25 09:54 | CASEMGMT ---
Social Work [facility] to be here at 1:30 today to meet with pt and pt's son Naeem. SW met with pt and informed and pt is agreeable. Nursing and physician notified. LEIA Gonzalez
[2024-07-25 14:00] VITALS: BP 106/80; PULSE 63; RESP 16; TEMP 36.9; O2SAT 94
--- NOTE | 2024-07-25 15:54 | CASEMGMT ---
Social Work Hospice present and met with pt and sons. Pt signed papers to start with hospice services. Pt is appropriate for the [facility] for pain management with plans to return home with hospice when he is stabilized. JESSIE spoke with Jordan from the [facility] and notified of this. MELVIN left with [facility] JESSIE informing of dc plan and that pt would like to continue with his [facility] home health aid when he returns home. Physician made aware of dc plan. Disposition: Inpatient Hospice Unit LEIA Chen
--- NOTE | 2024-07-25 16:17 | DCINST_ITS ---
Discharge Instructions Diet Discharge Diet: No restrictions DC O2, CPAP, BIPAP needs Home O2 Discharge instructions: No Follow Up Care Test Results: Test results from this visit will be discussed in further detail at your follow- up appointment, if applicable. Discharge Plan Admission Admit Date/Time: 07/22/24 12:16 Attending Provider: Fabien Hidalgo Primary Care Provider: Shanda Jensen NP Consulting Providers: Naseem Brothers; Bari Gayle; Ana Galloway; Hawa Stoll; Dionne Cole; Coral Ledbetter REAL ESTATE SALES AGENT; Marika Regan Instructions Additional Instructions / Restrictions: If Zyvox is not covered under hospice then you can potentially combine p.o. Augmentin and clindamycin to cover the Enterococcus and the MRSA that he has growing in his wound. He has been getting better in terms of his white count improving in the absence of treatment of his Enterobacter cloacae, therefore I do not believe he necessarily needs coverage for this organism Discharge Orders/Prescriptions Prescriptions: New linezolid [Zyvox] 600 mg tablet 600 mg PO BID Qty: 14 0RF Continued atorvastatin 40 mg Tablet 40 mg PO QHS Qty: 0 0RF nystatin [Nyamyc] 100,000 unit/gram Powder 1 applic topical BID Qty: 0 0RF Protocol: *Topical Application Instructions APPLICATION INSTRUCTIONS: groin/abdominal folds acetaminophen 500 mg Tablet 1,000 mg PO Q8 PRN (Reason: pain) furosemide 40 mg tablet 40 mg PO BID tramadol 50 mg tablet 50 mg PO Q8H PRN (Reason: pain) Culturelle 10 billion cell capsule 1 cap PO BID Patient Comments: PT IS SUPPOSE TO BE TAKING, DOES NOT. losartan 50 mg tablet 50 mg PO DAILY gabapentin 300 mg capsule 300 mg PO TID potassium chloride [Klor-Con M20] 20 mEq Tablet,Er Particles/Crystals 20 meq PO TID cholecalciferol (vitamin D3) 50 mcg (2,000 unit) tablet 50 mcg PO DAILY menthol-zinc oxide [Calmoseptine] 0.44-20.6 % Ointment 1 applic topical BID PRN (Reason: skin irritation) Protocol: *Topical Application Instructions APPLICATION INSTRUCTIONS: buttocks Xarelto 20 mg Tablet 20 mg PO QHS Discontinued minocycline 100 mg capsule 100 mg PO BID cefdinir 300 mg capsule 300 mg PO BID Referrals / Follow Up: Shanda Jensen REAL ESTATE SALES AGENT, REAL ESTATE SALES AGENT-C [Primary Care Provider] - Disposition Disposition (needs filled in before D/C Order can be placed): Hospice in Medical Facility
--- NOTE | 2024-07-25 16:21 | PCM.DC.SUM ---
Providers Date of Admission: 07/22/24 Primary Care Physician: JAVIER Celis Consultations 07/22/24 13:39 Consult: Infectious Disease Routine Consulting Provider: Naseem Brothers Reason for Consult: cellulitis EMERGENT Consult: No MD Notified: Yes Date Notified: 07/22/24 Time Notified: 13:58 Method of Notification: Text Consult: Onc/Wound/health services manager Routine Comment: 07/24/24 11:12 Consult: Hospice / Palliative Care Routine Consulting Provider: [facility] Reason for Consult: cellulitis, FTT EMERGENT Consult: No MD Notified: Yes Date Notified: 07/24/24 Time Notified: 11:12 Method of Notification: per SW Reason For Visit: CELLULITIS Diagnosis Discharge Diagnosis (1) Lipodermatosclerosis of both lower extremities: Status: Acute Code(s): M79.3 - Panniculitis, unspecified (2) Lymphedema: Status: Acute Code(s): I89.0 - Lymphedema, not elsewhere classified (3) Wound infection: Status: Acute Code(s): T14.8XXA - Other injury of unspecified body region, initial encounter; L08.9 - Local infection of the skin and subcutaneous tissue, unspecified Medications at Discharge Home Medications atorvastatin 40 mg tablet 40 mg PO QHS choplesterol #0 tabs 09/07/23 nystatin 100,000 unit/gram topical powder (Nyamyc) 1 applic topical BID #0 grams 10/25/23 acetaminophen 500 mg tablet 1,000 mg PO Q8 PRN pain 12/27/23 Lactobacillus rhamnosus GG 10 billion cell capsule (Culturelle) 1 cap PO BID 05/08/24 furosemide 40 mg tablet 40 mg PO BID 05/08/24 tramadol 50 mg tablet 50 mg PO Q8H PRN pain 05/08/24 cholecalciferol (vitamin D3) 50 mcg (2,000 unit) tablet 50 mcg PO DAILY 07/22/24 gabapentin 300 mg capsule 300 mg PO TID 07/22/24 losartan 50 mg tablet 50 mg PO DAILY 07/22/24 menthol 0.44 %-zinc oxide 20.6 % topical ointment (Calmoseptine) 1 applic topical BID PRN skin irritation 07/22/24 potassium chloride 20 mEq tablet,extended release(part/cryst) (Klor-Con M) 20 meq PO TID potassium 07/22/24 rivaroxaban 20 mg tablet (Xarelto) 20 mg PO QHS BLOOD THINNER 07/22/24 linezolid 600 mg tablet (Zyvox) 600 mg PO BID #14 tabs 07/25/24 Hospital Course Operations None Procedures None Summary of Care Provided Minutes Spent on Discharge: 35 Hospital Course: Per HPI: TURNER YAN, is a 73 M who presents to the hospital for increasing lower extremity edema and pain in both legs. He is on Xarelto so he does not have a DVT when he takes his medications consistently. He does have chronic venous insufficiency with lipodermatosclerosis of and now he has weeping wounds that appear to be potentially infected. He does have an elevated white count in the ER though it is difficult to discern if he has cellulitis in either leg given his chronic skin changes versus an isolated wound infection, the distinction is not that significant. He does have a home health aide who was able to convince him to present to the ER today as he had been complaining of pain as well as nausea for the last couple of days. Hospital Course: 1. Chronic venous stasis changes with chronic venous insufficiency and peripheral neuropathy with wound infection versus cellulitis ? He does have Lipodermatosclerosis of both lower extremities ? No fever and leukocytosis is resolved. Continue with Vanco and Zosyn, cultures are coming back with multiple organisms including a possible Enterococcus and Staph aureus ? Continue with diuresis as his edema appears more pronounced than usual ? Continue with Xarelto, unlikely to have a DVT ? Will consult infectious disease and wound care 07/25/2024: Given the significance of his failure to thrive and continued and increased hospitalizations and weakness from his previous strokes we discussed the possibility of hospice. He and his son had discussions with hospice today and elected to proceed with hospice care on discharge. Wound cultures show polymicrobial wound and essentially he can be treated with 7 days of Zyvox 600 mg p.o. twice daily, would limit tramadol usage in that timeframe due to interaction risk. If the Zyvox is too expensive from a hospice standpoint can do Augmentin for the Enterococcus and clindamycin for the MRSA based on sensitivities. The only organism that is growing is not being covered is Enterobacter cloaca however he has been improving here in the hospital from an infectious standpoint while this organism remains uncovered. He can resume all his home medications as indicated by hospice, and he will be transferred to the [facility] to continue with pain management. 2. Chronic A-fib/essential HTN/HLD/CAD status post stent ? Continue with his home medications ? Blood pressure stable ? Will monitor and make adjustments as necessary ? Echo in 01/20/2023 with an EF of 65% and no diastolic dysfunction, proBNP today is normal Physical Exam Narrative General: Alert, Oriented x3, Cooperative, No apparent distress HEENT: Atraumatic, PERRLA, EOMI, Normocephalic Oral: Moist Mucosa Neck: Supple, No JVD Lungs: Diminished, Normal air movement, No rhonchi, No wheeze, No rales Cardiovascular: Regular rate, Regular Rhythm, Normal S1, Normal S2, No murmurs Abdomen: Soft, Non Tender, Non-Distended, No Hepato-splenomegaly Extremities: Lymphedema, Capillary Refill Less than 3 Seconds Skin: Multiple areas of bilateral skin breakdown on his lower extremities below the knee with weeping and signs of possible infection, chronic venous stasis changes, no obvious erythema Musculoskeletal: Tenderness palpation of both lower extremities below the knee Neurological: No focal neurological deficits, moves all extremities Psych/Mental Status: Flat Weight / BMI Weight Weight: 253 lb 4.978 oz Body Mass Index (BMI) 40.7 ABG / Lab / Microbiology Data 07/25/24 05:45 07/25/24 05:45 Laboratory: Laboratory Results - last 24 hr 07/24/24 16:50: Random Vancomycin 10.9 07/25/24 05:45: WBC 8.1, RBC 4.09 L, Hgb 12.2 L, Hct 36.6 L, MCV 89.5, MCH 29.8, MCHC 33.3, RDW Std Deviation 46.8 H, RDW Coeff of Naz 14.4, Plt Count 214, MPV 9.6, Immature Gran % (Auto) 0.500, Neut % (Auto) 72.1 H, Lymph % (Auto) 13.9 L, [place] % (Auto) 8.1, Eos % (Auto) 5.2 H, Baso % (Auto) 0.2, Absolute Neuts (auto) 5.8, Absolute Lymphs (auto) 1.12, Nucleated RBC % 0, Sodium 136, Potassium 2.8 L, Chloride 101, Carbon Dioxide 24.6, Anion Gap 10, BUN 10, Creatinine 1.00, Estim Creat Clear Calc 77.22, Est GFR (MDRD) Non-Af 79, BUN/Creatinine Ratio 10.3, Glucose 116 H, Calcium 8.3 Microbiology: Microbiology 07/22/24 14:40 Wound - Leg, Left Gram Stain - Final 07/22/24 14:40 Wound - Leg, Left Wound Culture - Preliminary Enterobacter cloacae complex Gram negative louise Enterococcus faecalis Meth. resistant Staph. aureus Gram positive louise 07/22/24 14:40 Wound - Leg, Right Gram Stain - Final 07/22/24 14:40 Wound - Leg, Right Wound Culture - Preliminary Enterobacter cloacae complex Meth. resistant Staph. aureus Gram positive louise GPC Poss Enterococcus sp Gram negative louise 07/22/24 12:19 Blood Culture (Wb) - Left Hand Blood Culture - Preliminary No growth in 48 hours. 07/22/24 10:25 Blood Culture (Wb) - Left Wrist Blood Culture - Preliminary No growth in 48 hours. D/C Instructions Discharge Diet: No restrictions DC O2, CPAP, BIPAP Needs Home O2 Discharge instructions: No Meaningful Use Info Meaningful Use Meaningful Use Diagnoses (Choose all that apply): None applicable Ischemic Stroke Statin Dosing Therapy Reference: STATIN DOSE THERAPY REFERENCE: * Patients > 75 years receive moderate or high dose statin therapy. * Patients 75 years or YOUNGER should receive HIGH intensity statin dose unless contraindicated. You will be required to document reason for non-treatment if statin daily dose does not meet guidelines. HIGH DOSE STATIN THERAPY DAILY Atorvastatin > than or = to 40 mg Rosuvastatin > than or = to 20 mg Amlodipine + Atorvastatin > than or = to 2.5/40 mg Ezetimibe + Simvastatin 10/80 mg Simvastatin 80mg Discharge Plan Admission Admit Date/Time: 07/22/24 12:16 Attending Provider: Fabien Hidalgo Primary Care Provider: Shanda Jensen NP Consulting Providers: Naseem Brothers; Bari Gayle; Ana Galloway; Hawa Stoll; Dionne Cole; Coral Ledbetter ORTHOPEDIC RADIOLOGIC TECHNOLOGIST; Marika Regan Instructions Additional Instructions / Restrictions: If Zyvox is not covered under hospice then you can potentially combine p.o. Augmentin and clindamycin to cover the Enterococcus and the MRSA that he has growing in his wound. He has been getting better in terms of his white count improving in the absence of treatment of his Enterobacter cloacae, therefore I do not believe he necessarily needs coverage for this organism Discharge Orders/Prescriptions Prescriptions: New linezolid [Zyvox] 600 mg tablet 600 mg PO BID Qty: 14 0RF Continued atorvastatin 40 mg Tablet 40 mg PO QHS Qty: 0 0RF nystatin [Nyamyc] 100,000 unit/gram Powder 1 applic topical BID Qty: 0 0RF Protocol: *Topical Application Instructions APPLICATION INSTRUCTIONS: groin/abdominal folds acetaminophen 500 mg Tablet 1,000 mg PO Q8 PRN (Reason: pain) furosemide 40 mg tablet 40 mg PO BID tramadol 50 mg tablet 50 mg PO Q8H PRN (Reason: pain) Culturelle 10 billion cell capsule 1 cap PO BID Patient Comments: PT IS SUPPOSE TO BE TAKING, DOES NOT. losartan 50 mg tablet 50 mg PO DAILY gabapentin 300 mg capsule 300 mg PO TID potassium chloride [Klor-Con M20] 20 mEq Tablet,Er Particles/Crystals 20 meq PO TID cholecalciferol (vitamin D3) 50 mcg (2,000 unit) tablet 50 mcg PO DAILY menthol-zinc oxide [Calmoseptine] 0.44-20.6 % Ointment 1 applic topical BID PRN (Reason: skin irritation) Protocol: *Topical Application Instructions APPLICATION INSTRUCTIONS: buttocks Xarelto 20 mg Tablet 20 mg PO QHS Discontinued minocycline 100 mg capsule 100 mg PO BID cefdinir 300 mg capsule 300 mg PO BID Referrals / Follow Up: Shanda Jensen NP, ORTHOPEDIC RADIOLOGIC TECHNOLOGIST-C [Primary Care Provider] - Disposition Disposition (needs filled in before D/C Order can be placed): Hospice in Medical Facility Charges/Coding Visit Charges Inpatient E&M: 49726 Disch Hosp >30min
== END 2024-07-25 17:12 | disposition hospice, inpatient (51) | DRG 593 ==
LOC: ED 11:53 → MS3 12:43
PROVIDERS: Admitting Provider Family Medicine; Emergency Provider Emergency Medicine; PCP Nurse Practitioner Family; Visit Provider Family Medicine
DX: L97.919 Non-pressure chronic ulcer of unspecified part of right lower leg with unspecified severity (principal); I83.219 Varicose veins of right lower extremity with both ulcer of unspecified site and inflammation; I48.20 Chronic atrial fibrillation, unspecified; Z68.41 Body mass index [BMI] 40.0-44.9, adult; I83.229 Varicose veins of left lower extremity with both ulcer of unspecified site and inflammation; R62.7 Adult failure to thrive; I11.0 Hypertensive heart disease with heart failure; G62.9 Polyneuropathy, unspecified; D72.829 Elevated white blood cell count, unspecified; L97.929 Non-pressure chronic ulcer of unspecified part of left lower leg with unspecified severity; E66.01 Morbid (severe) obesity due to excess calories; E78.5 Hyperlipidemia, unspecified; I25.10 Atherosclerotic heart disease of native coronary artery without angina pectoris; I50.9 Heart failure, unspecified; I89.0 Lymphedema, not elsewhere classified; M79.3 Panniculitis, unspecified; M54.50 Low back pain, unspecified; R14.0 Abdominal distension (gaseous); Z79.01 Long term (current) use of anticoagulants; Z95.5 Presence of coronary angioplasty implant and graft; Z82.49 Family history of ischemic heart disease and other diseases of the circulatory system; Z87.891 Personal history of nicotine dependence
CPT/HCPCS: 36415; 71045; 80048; 80076; 80202; 81001; 83605; 83735; 83880; 85025; 85610; 85730; 87040; 87070; 87077; 87186; 87205; 93005; 97162; 97166; 97530; 97535; 99285; A4216; J1940; J2405